=== PATIENT | female | born 1980 | race American Indian/Alaskan Native ===

== ENCOUNTER 2016-03-11 10:10 | Emergency (ER) | payer MEDICAID ==
[2016-03-11 10:54] LABS: Basophils % (Auto) 0.5 % (0.0-1.8); Eosinophils % (Auto) 1.3 % (0.0-4.3); Hematocrit 38.7 % (30.3-42.9); Hemoglobin 12.2 gm/dl (10.1-14.3); Mean Corpuscular HGB Conc 32 % (30-34); Mean Corpuscular Hemoglobin 24 pg (28-32); Mean Corpuscular Volume 75 fl (79-97); Platelet Count 253 K/mm3 (140-440); Red Blood Count 5.15 M/mm3 (3.65-5.03); Red Cell Distribution Width 17.7 % (13.2-15.2); White Blood Count 7.5 K/mm3 (4.5-11.0)
[2016-03-11 11:03] LABS: Blood Urea Nitrogen 9 mg/dL (7-17); Calcium 8.7 mg/dL (8.4-10.2); Carbon Dioxide 23 mmol/L (22-30); Glucose 113 mg/dL (65-100); Potassium 4.1 mmol/L (3.6-5.0); Sodium 139 mmol/L (137-145)
[2016-03-11] MEDS ORDERED: ZOFRAN IV ONE (11:04)
[2016-03-11] MEDS ORDERED: MORPHINE IV ONE (11:04)
[2016-03-11 11:06] LABS: Anion Gap 15 mmol/L
[2016-03-11] MEDS ORDERED: NACL ONE ×2 (11:15→11:34)
--- NOTE | 2016-03-11 11:15 | Emergency Department Report ---
HPI - General Chief Complaint: Chest Pain Time Seen by Provider: 03/11/16 10:51 - HPI HPI: Chief complaint: Chest pain, nausea vomiting and diarrhea, headache HPI: Patient is a 35-year-old female with a history of hyperthyroidism status post thyroid storm 7 months ago when she was diagnosed with an SD and pulmonary embolus. Patient has been placed on Eliquis, methimazole as well as Inderal which she states she has been taking. Patient was evaluated at [facility]. Patient has relocated to this area. Patient states for the last 3 days she's been having increased sharp left-sided chest pain that is worse on inspiration as well as nausea vomiting and diarrhea. Patient states she's been having a few streaks of blood in her vomit and has been vomiting about 4 times a day and had one episode of diarrhea. Patient states she fell and hit her head on the way to the bathroom and now has a severe headache. Discussed with María from [facility] who was able to access her records at [facility]. There was no documented SD and patient had a negative PET scan of her heart. There was a question of possible pericarditis and a remote history of pulmonary embolus. Patient did have negative CTA of the chest when she was at [facility]. Patient does also have an extensive psychiatric history and has been on BuSpar as well as Seroquel. Mode of arrival: EMS Source: Patient old chart Began: 3 days ago Duration: 3 days Context: See above Quality: Sharp Severity: 10 out of 10 Improved with: Nothing Worsened with: See above Associated signs and symptoms: See above ED Past Medical Hx - Past Medical History Previous Medical History?: Yes Hx Heart Attack/AMI: Yes Hx Pulmonary Embolism: Yes Hx Psychiatric Treatment: Yes (anxiety) Additional medical history: hypothyroidism,pericarditis, pt states hyperthyroidism, thyroid storm - Surgical History Past Surgical History?: No - Social History Smoking Status: Former Smoker Substance Use Type: None - Medications Home Medications: Home Medications Medication Instructions Recorded Confirmed Last Taken Type ALBUTEROL Inhaler 1 puff IH QID 02/17/16 02/17/16 02/16/16 History Apixaban [Eliquis] 1 tab PO BID 02/17/16 02/17/16 02/15/16 History Atenolol 25 mg PO DAILY 02/17/16 02/17/16 02/16/16 History Methimazole [Tapazole] 10 mg PO Q8H 02/17/16 02/17/16 02/16/16 History Ondansetron [Zofran Odt] 4 mg PO Q4H PRN #7 tab.rapdis 02/17/16 Unknown Rx Propranolol [Inderal] 40 mg PO Q12HR 02/17/16 02/17/16 02/16/16 History busPIRone [Buspar] 7.5 mg PO BID 02/17/16 02/17/16 02/16/16 History traMADol [Ultram 50 MG tab] 50 mg PO Q6HR PRN #10 tablet 03/11/16 Unknown Rx ED Review of Systems ROS: Stated complaint: CHEST PAIN Other details as noted in HPI ROS Constitutional: No fever ENT: No uri symptoms Cardiovascular: chest pain Respiratory: No cough GI: See HPI : No dysuria frequency or urgency, Skin: No rash Neuro: No focal weakness or numbness Psych: History of depression Imtiaz/lymph: No edema Physical Exam - Physical Exam Vital Signs: Vital Signs 03/11/16 10:22 Temperature 97.8 F Pulse Rate 89 Blood Pressure 113/56 O2 Sat by Pulse 100 Oximetry Physical Exam: GENERAL: The patient is well-developed well-nourished . HEENT: Normocephalic. Atraumatic. Extraocular motions are intact. Patient has moist mucous membranes. NECK: Supple. No meningitic signs are noted. There is no adenopathy noted. CHEST/LUNGS: Clear to auscultation. There is no respiratory distress noted. HEART/CARDIOVASCULAR: Regular. There is no tachycardia. There is no gallop rub or murmur. ABDOMEN: Abdomen is soft, nontender. Patient has normal bowel sounds. There is no abdominal distention. SKIN: There is no rash. There is no edema. There is no diaphoresis. NEURO: The patient is awake, alert, and oriented. The patient is cooperative. The patient has no focal neurologic deficits. The patient has normal speech. MUSCULOSKELETAL: There is no tenderness or deformity. There is no limitation range of motion. There is no evidence of acute injury. ED Course Vital Signs 03/11/16 10:22 Temperature 97.8 F Pulse Rate 89 Blood Pressure 113/56 O2 Sat by Pulse 100 Oximetry - Reevaluation(s) Reevaluation #1: 03/11/16 11:47 Patient medicated with 4 mg of morphine and 4 mg of Zofran. - EJ/Peripheral Line Neck R Indications: nurses unable to establis Skin Cleansed in Sterile Fashion: Yes Size: 20 Dressing Placed: Tegaderm, tape Patient Tolerated Procedure: well, no complications ED Medical Decision Making - Lab Data Result diagrams: 03/11/16 10:27 03/11/16 10:27 Laboratory Tests 03/11/16 03/11/16 10:27 11:10 PT 13.4 INR 1.03 Troponin T < 0.010 Laboratory Tests 03/11/16 03/11/16 03/11/16 10:27 11:10 11:10 PT 13.4 INR 1.03 APTT 24.8 Troponin T < 0.010 TSH < 0.005 L 03/11/16 13:17 PT INR APTT Troponin T < 0.010 TSH - EKG Data -: EKG Interpreted by Ri EKG shows normal: sinus rhythm Rate: normal - EKG Data When compared to previous EKG there are: no significant change Interpretation: normal EKG - Radiology Data Radiology results: report reviewed (CT of the head is within normal limits. CTA of the chest shows no pulmonary embolus and CT of the abdomen shows no acute process.) Critical care attestation.: If time is entered above; I have spent that time in minutes in the direct care of this critically ill patient, excluding procedure time. ED Disposition Clinical Impression: Chest pain Qualifiers: Chest pain type: pleurodynia Qualified Code(s): R07.81 - Pleurodynia Disposition: DISCHARGED TO HOME OR SELFCARE Is pt being admited?: No Does the pt Need Aspirin: No Condition: Stable Instructions: Chest Pain (ED) Prescriptions: traMADol [Ultram 50 MG tab] 50 mg PO Q6HR PRN #10 tablet PRN Reason: Pain Referrals: follow-up, your primary care doctor [Other] - 3-5 Days Time of Disposition: 15:00
[2016-03-11 11:28] LABS: INR 1.03 (0.87-1.13)
[2016-03-11 11:29] LABS: Partial Thromboplastin Time 24.8 Sec. (24.2-36.6)
--- NOTE | 2016-03-11 12:30 | Cat Scan Report ---
CT HEAD WITHOUT CONTRAST INDICATION: Headache, head trauma, on Eliquis. COMPARISON: None similar. FINDINGS: Noncontrast head CT demonstrates normal ventricles and sulci without acute or recent infarct, hemorrhage, mass effect or midline shift. No abnormal extra-axial fluid collections. Posterior fossa structures and basilar cisterns appear within normal limits. Symmetric eye globes. Clear paranasal sinuses and mastoid air cells. Intact calvarium. Normal overlying scalp soft tissues. Few radiopaque dental material incidentally noted. CONCLUSION: No acute intracranial CT abnormality, as described. Thank you for the opportunity to participate in this patient's care.
--- NOTE | 2016-03-11 12:36 | Cat Scan Report ---
CTA CHEST INDICATION: Chest pain. COMPARISON: None similar. FINDINGS: Chest CTA performed following intravenous administration of 100 cc of Omnipaque 350. Rotational MIP's also obtained. Borderline cardiomegaly. No effusions. No aortic aneurysm, dissection or suspicious pulmonary arterial filling defects. No size significant adenopathy. Mild residual or regenerated thymus incidentally noted with grossly preserved contours. Normal airway. Unremarkable thyroid. Mild left lower lobe scarring. Otherwise unremarkable lungs. Right hemidiaphragm slightly elevated. Nonspecific distal esophageal wall thickening, not excluded for gastroesophageal reflux and/or hiatal hernia, amongst others. Images through included upper abdomen reveal no significant abnormality. Unremarkable bones. CONCLUSION: No CT evidence of pulmonary embolism with few incidental findings, as above. Thank you for the opportunity to participate in this patient's care.
--- NOTE | 2016-03-11 12:45 | Cat Scan Report ---
CT SCAN OF THE ABDOMEN AND PELVIS WITH CONTRAST: HISTORY: Abdominal pain. TECHNIQUE: Helical CT in 1.25mm intervals following IV contrast. Sagittal and coronal reconstructions. FINDINGS: The liver is normal in size and is without focal defect. No gallstones or biliary dilatation are noted. The spleen and pancreas demonstrate a normal size and attenuation with no evidence of abnormal mass. The kidneys are normal in size and position with no evidence of hydronephrosis or mass. The adrenal glands are normal. There is no intestinal obstruction or ascites. Normal appendix. The abdominal aorta is normal. No abnormalities are identified within the retroperitoneum or mesentery. There is no evidence of peritoneal air or fluid. There is no evidence of any abnormal masses or fluid collections within the pelvis. No adenopathy is identified. The bladder is normal. IMPRESSION: Unremarkable CT scan of the abdomen and pelvis with contrast. No acute process is noted.
[2016-03-11 12:55] LABS: Urine Drugs of Abuse Note Disclamer
[2016-03-11 13:09] LABS: Bilirubin,Urine NEG (Negative); Blood,Urine LG (Negative); Ketones,Urine NEG (Negative); Leukocyte Esterase,Urine NEG (Negative); Nitrite,Urine NEG (Negative); Protein,Urine <15 mg/dL mg/dL (Negative); Urobilinogen,Urine < 2.0 mg/dL (<2.0)
[2016-03-11 13:10] LABS: RBC,Urine > 182.0 /HPF (0.0-6.0)
[2016-03-11 14:03] VITALS: BP 127/75
== END 2016-03-11 15:25 | disposition home or self-care (01) ==
LOC: ED 10:10
DX: R07.81 Pleurodynia (principal); R11.2 Nausea with vomiting, unspecified; R19.7 Diarrhea, unspecified; I25.2 Old myocardial infarction; I26.99 Other pulmonary embolism without acute cor pulmonale; F41.9 Anxiety disorder, unspecified; E03.9 Hypothyroidism, unspecified; Z87.891 Personal history of nicotine dependence
CPT/HCPCS: 36415; 36569; 70450; 71275; 74177; 80048; 80307; 81001; 84443; 84484; 85025; 85610; 85730; 93005; 93010; 96374; 96375; 99285; J2270; J2405; Q9967

== ENCOUNTER 2016-04-29 08:58 | Emergency (ER) | payer MEDICAID ==
[2016-04-29 09:41] LABS: Basophils % (Auto) 0.5 % (0.0-1.8); Eosinophils % (Auto) 1.2 % (0.0-4.3); Hematocrit 43.6 % (30.3-42.9); Hemoglobin 14.2 gm/dl (10.1-14.3); Mean Corpuscular HGB Conc 33 % (30-34); Mean Corpuscular Volume 78 fl (79-97); Platelet Count 253 K/mm3 (140-440); Red Blood Count 5.61 M/mm3 (3.65-5.03); Red Cell Distribution Width 16.4 % (13.2-15.2); White Blood Count 7.6 K/mm3 (4.5-11.0)
[2016-04-29 09:53] LABS: INR 1.02 (0.87-1.13)
[2016-04-29 09:55] LABS: Mean Corpuscular Hemoglobin 25 pg (28-32)
[2016-04-29 09:58] LABS: Anion Gap 18 mmol/L; Blood Urea Nitrogen 13 mg/dL (7-17); Calcium 9.6 mg/dL (8.4-10.2); Carbon Dioxide 22 mmol/L (22-30); Chloride 101.1 mmol/L (98-107); Glucose 102 mg/dL (65-100); Potassium 4.2 mmol/L (3.6-5.0); Sodium 137 mmol/L (137-145)
[2016-04-29 10:09] LABS: Partial Thromboplastin Time 22.4 Sec. (24.2-36.6)
[2016-04-29] MEDS ORDERED: ZOFRAN IV ONE (10:17)
[2016-04-29] MEDS ORDERED: TYLENOL PO ONE (10:17)
[2016-04-29] MEDS ORDERED: TYLENOL ONE (10:23)
[2016-04-29] MEDS ORDERED: ZOFRAN ONE (10:23)
[2016-04-29] MEDS ORDERED: MORPHINE IV ONE (10:43)
[2016-04-29] MEDS ORDERED: REGLAN IV ONE (10:43)
[2016-04-29] MEDS ORDERED: MORPHINE ONE (10:44)
[2016-04-29] MEDS ORDERED: REGLAN ONE (10:44)
--- NOTE | 2016-04-29 11:02 | Emergency Department Report ---
HPI - General Chief Complaint: Chest Pain Time Seen by Provider: 04/29/16 09:42 - HPI HPI: Chief complaint: Chest pain, syncope, left arm pain, and patient thinks she's having seizures. HPI: Patient is 35-year-old female who has hyperthyroidism and is on methimazole and Inderal, questionable history of pericarditis, remote history of pulmonary embolus on Eliquis and 2 negative CTA scan of the chest and the last several months. Patient was seen here in this emergency department 3 days ago for the same complaint and signed out AGAINST MEDICAL ADVICE after being told she would get no narcotic medications. Patient states that she had a syncopal episode that lasted about 3 minutes. Patient states that she thinks she's having seizures in her sleep because she wakes up shaking and states that her teeth are cracking and sometimes when she is awake she starts shaking. Patient has no previous history of seizures. Patient complains of sharp anterior chest pain radiating down her arm. Patient has not followed up with her social service assistant and does not have a primary care doctor since moving to this area. Patient also complains of sensation of her organs twisting inside of her. Patient complains of shortness of breath and blurred vision. Mode of arrival: [EMS] Source: [Patient] [old chart] Began: Syncopal episode occurred prior to admission. Patient has recurrent episodes of chest pain. Recurrent episodes of organ twisting sensation. Duration: Recurrent chest pain for over 3 months Context: Patient had a negative PET scan of her coronary arteries at [facility] Quality: Sharp Severity: 10 out of 10 Improved with: Nothing Worsened with: Inspiration Associated signs and symptoms: See above ED Past Medical Hx - Past Medical History Previous Medical History?: Yes Hx Heart Attack/AMI: (pt states "needing stents") Hx Pulmonary Embolism: Yes Hx Psychiatric Treatment: Yes (anxiety) Additional medical history: pericarditis, pt states hyperthyroidism, thyroid storm - Surgical History Past Surgical History?: No - Social History Smoking Status: Never Smoker Substance Use Type: Marijuana - Medications Home Medications: Home Medications Medication Instructions Recorded Confirmed Last Taken Type Apixaban [Eliquis] 1 tab PO BID 02/17/16 04/29/16 02/15/16 History traMADol [Ultram 50 MG tab] 50 mg PO Q6HR PRN #10 tablet 03/11/16 04/29/16 Unknown Rx Dicyclomine [Bentyl] 10 mg PO QID PRN #20 capsule 04/26/16 04/29/16 Unknown Rx Methimazole [Tapazole] 10 mg PO Q8H #21 tablet 04/26/16 04/29/16 Unknown Rx Ondansetron [Zofran Odt] 4 mg PO Q4H PRN #7 tab.rapdis 04/26/16 04/29/16 Unknown Rx Propranolol [Inderal] 40 mg PO Q12HR #14 tablet 04/26/16 04/29/16 Unknown Rx ED Review of Systems ROS: Stated complaint: N/V / PASSED OUT Other details as noted in HPI ROS Constitutional: No fever ENT: No uri symptoms Cardiovascular: chest pain Respiratory: No cough GI: No vomiting or diarrhea : No dysuria frequency or urgency, Skin: No rash Neuro: No focal weakness Psych: No depression Imtiaz/lymph: No edema Physical Exam - Physical Exam Vital Signs: Vital Signs 04/29/16 04/29/16 04/29/16 09:00 09:11 09:30 Temperature 98.2 F Pulse Rate 98 H 96 H 130 H Respiratory 10 L 14 19 Rate Blood Pressure 118/72 118/72 O2 Sat by Pulse 100 100 Oximetry 04/29/16 04/29/16 09:56 10:00 Temperature Pulse Rate 95 H Respiratory 26 H Rate Blood Pressure 110/63 O2 Sat by Pulse 100 99 Oximetry Physical Exam: GENERAL: The patient is well-developed well-nourished . Requesting pain medication. HEENT: Normocephalic. Atraumatic. Extraocular motions are intact. Patient has moist mucous membranes. NECK: Supple. No meningitic signs are noted. There is no adenopathy noted. CHEST/LUNGS: Clear to auscultation. There is no respiratory distress noted. HEART/CARDIOVASCULAR: Regular. There is no tachycardia. There is no gallop rub or murmur. ABDOMEN: Abdomen is soft, nontender. Patient has normal bowel sounds. There is no abdominal distention. SKIN: There is no rash. There is no edema. There is no diaphoresis. NEURO: The patient is awake, alert, and oriented. The patient is cooperative. The patient has no focal neurologic deficits. The patient has normal speech. MUSCULOSKELETAL: There is no tenderness or deformity. There is no limitation range of motion. There is no evidence of acute injury. ED Course Vital Signs 04/29/16 04/29/16 04/29/16 09:00 09:11 09:30 Temperature 98.2 F Pulse Rate 98 H 96 H 130 H Respiratory 10 L 14 19 Rate Blood Pressure 118/72 118/72 O2 Sat by Pulse 100 100 Oximetry 04/29/16 04/29/16 09:56 10:00 Temperature Pulse Rate 95 H Respiratory 26 H Rate Blood Pressure 110/63 O2 Sat by Pulse 100 99 Oximetry - Reevaluation(s) Reevaluation #1: 04/29/16 10:37 Patient requested another doctor when she was given Tylenol only for pain. 04/29/16 11:44 Patient was given 2 mg of IV morphine and 10 mg of IV Reglan after being admitted to the hospitalist. Patient then got up from her bed and went to the restroom and left the emergency department without telling anyone. ED Medical Decision Making - Lab Data Result diagrams: 04/29/16 09:21 04/29/16 09:21 Laboratory Tests 04/29/16 04/29/16 09:21 09:21 PT 13.3 INR 1.02 APTT 22.4 L Troponin T < 0.010 - EKG Data -: EKG Interpreted by Me EKG shows normal: sinus rhythm Rate: tachycardia - EKG Data When compared to previous EKG there are: no significant change Interpretation: other (early repolarization) Critical care attestation.: If time is entered above; I have spent that time in minutes in the direct care of this critically ill patient, excluding procedure time. ED Disposition Clinical Impression: Drug-seeking behavior Syncope Qualifiers: Syncope type: unspecified Qualified Code(s): R55 - Syncope and collapse Chest pain Qualifiers: Chest pain type: unspecified Qualified Code(s): R07.9 - Chest pain, unspecified Disposition: ELOPED Is pt being admited?: No Does the pt Need Aspirin: No (given in the ambulance) Condition: Fair Instructions: Chest Pain (ED), Syncope (ED) Referrals: PRIMARY CARE,MD [Primary Care Provider] - 3-5 Days Time of Disposition: 10:43 (admit to the hospitalist)
--- NOTE | 2016-04-29 11:03 | Admit Criteria Form ---
Admission Criteria Documentation: TELEMETRY CARE Telemetry Admission Guidelines (Place 'X' for any and all applicable criteria): Admission to telemetry [A] may be indicated for ANY ONE of the following(1)(2)(3 )(4)(5): [ X]I. Cardiac disease, including ANY ONE of the following (9)(10)(11)(12)( 13): [ ]a) Postacute AL [ ]b) Low-risk patients with ST-segment elevation AL who have undergone successful percutaneous coronary intervention [X ]c) Unstable angina [ ]d) Suspected AL (until it is ruled out) [ ]e) Post cardiac surgery (first 48 to 72 hours unless complications occur) [ ]f) Acute arrhythmias (including significant tachycardia or bradycardia) [B] [ ]g) Firing of an implantable cardioverter defibrillator [C] [ ]h) Suspected pacemaker or implantable cardioverter defibrillator malfunction (10) [ ]i) New administration or adjustment of an antiarrhythmic drug [D ] [ ]j) Child admitted for acute congestive heart failure [ ]j) Long QT syndrome [ ]k) Advanced heart block (eg, second-degree Mobitz type II, third- degree heart block) [ ]l) Acute myocarditis or pericarditis [ ]m) Short-term (ambulatory or inpatient) monitoring after a cardiac procedure as indicated by ANY ONE of the following [E]: [ ]i) Electrophysiologic studies [ ]ii) Percutaneous coronary intervention with stent placement [ ]iii) Pacemaker placement with cardiac conduction defect [ ]iv) Implantable cardiac defibrillator placement [ ]II. Drug overdose or poisoning with substance that causes arrhythmias or QT prolongation (eg, phenothiazines, sympathomimetic agents, cyclic antidepressants, digitalis, antiarrhythmic drugs)(15) [ ]III. Short-term (ambulatory or inpatient) monitoring after therapeutic or diagnostic procedure requiring conscious sedation or anesthesia (eg, endoscopy, elective cardioversion) [ ]IV. Acute cerebrovascular even[F](18) [ ]V. Massive blood transfusion (eg, at least 10 units of packed red blood cells in 24 hours) [ ]. Variceal bleeding after endoscopy, sclerotherapy, or IV vasopressin [ ]VII. Uncorrected electrolyte abnormalities associated with an increased risk of dangerous arrhythmia [G]; examples include [ ]a) Hyperkalemia with attributable ECG changes [ ]b) Potassium greater than 6.5 mmol/L (mEq/L) in a patient without history of chronic renal disease [ ]c) Prolonged QT attributed to hypokalemia, hypomagnesemia, or hypocalcemia [ ]VIII.Unexplained syncope or other neurologic event suspected of being due to arrhythmia due to a finding that increases risk; examples include(19)(20)(21): [ ]a) High-risk ECG findings (eg, bifascicular block, bradycardia, abnormal QT interval, ventricular pre- excitation) [ ]b) History of previous syncope due to arrhythmia [ ]c) Abnormal ventricular function (eg, reduced ejection fraction ) [ ]d) Exertional or supine syncope [ ]e) Concerning syncope characteristics (eg, sudden loss of consciousness without prodrome) [ ]f) Family history of sudden [ ]g) Use of arrhythmogenic medication [ ]h) Suspected cardiac ischemia [ ]i) Known channelopathy (eg, long QT syndrome, Brugada syndrome, or catecholaminergic paroxysmal ventricular tachycardia) [ ]j) Known structural heart disease (eg, hypertrophic cardiomyopathy , severe valvular disease) [ ]k) Palpitations preceding syncope The original [employer] content created by [employer] has been revised. The portions of the content which have been revised are identified through the use of italic text or in bold, and [employer] has neither reviewed nor approved the modified material. All other unmodified content is copyright [employer]. Please see references footnoted in the original [employer] edition 2016
[2016-04-29 11:05] LABS: Urine Drugs of Abuse Note Disclamer
[2016-04-29 11:17] LABS: Bilirubin,Urine NEG (Negative); Blood,Urine SM (Negative); Ketones,Urine NEG (Negative); Leukocyte Esterase,Urine NEG (Negative); Nitrite,Urine NEG (Negative); Protein,Urine <15 mg/dL mg/dL (Negative); Urobilinogen,Urine < 2.0 mg/dL (<2.0); WBC,Urine < 1.0 /HPF (0.0-6.0)
[2016-04-29 11:33] VITALS: BP 107/68
--- NOTE | 2016-04-29 13:32 | Short Stay Summary ---
Short Stay Documentation Date of service: 04/29/16 Narrative H&P: Patient is 35-year-old female who has hyperthyroidism and is on methimazole and Inderal, questionable history of pericarditis, remote history of pulmonary embolus on Eliquis and 2 negative CTA scan of the chest and the last several months. Patient was seen here in this emergency department 3 days ago for the same complaint and signed out AGAINST MEDICAL ADVICE after being told she would get no narcotic medications. Patient states that she had a syncopal episode that lasted about 3 minutes. Patient complains of sharp anterior chest pain radiating down her arm. Patient also complains of sensation of her organs twisting inside of her. Patient complains of shortness of breath and blurred vision. Patient received morphine during my interview. I explained the plan of care with the patient of possible stress thallium. Patient was in agreement. I was later informed by the ER physician that the patient left AMA. - History Past Medical History: hyperthyroidism, pulmonary embolism, other (pericarditis) Past Surgical History: No surgical history Social history: no significant social history - Allergies and Medications Current Medications: Allergies ibuprofen [From Motrin] Allergy (Verified 01/16/16 11:01) Unknown Penicillins Allergy (Verified 01/16/16 11:01) Unknown Home Medications Medication Instructions Recorded Confirmed Last Taken Type Apixaban [Eliquis] 1 tab PO BID 02/17/16 04/29/16 02/15/16 History traMADol [Ultram 50 MG tab] 50 mg PO Q6HR PRN #10 tablet 03/11/16 04/29/16 Unknown Rx Dicyclomine [Bentyl] 10 mg PO QID PRN #20 capsule 04/26/16 04/29/16 Unknown Rx Methimazole [Tapazole] 10 mg PO Q8H #21 tablet 04/26/16 04/29/16 Unknown Rx Ondansetron [Zofran Odt] 4 mg PO Q4H PRN #7 tab.rapdis 04/26/16 04/29/16 Unknown Rx Propranolol [Inderal] 40 mg PO Q12HR #14 tablet 04/26/16 04/29/16 Unknown Rx - Physical exam General appearance: no acute distress HEENT: Atraumatic, PERRLA, EOMI Breasts: deferred Gastrointestinal: normal, normoactive bowel sounds Female Genitourinary: deferred Rectal Exam: deferred Extremities: no ischemia Neurological: Normal gait - Hospital course Hospital course: Patient is 35-year-old female who has hyperthyroidism and is on methimazole and Inderal, questionable history of pericarditis, remote history of pulmonary embolus on Eliquis and 2 negative CTA scan of the chest and the last several months. Patient was seen here in this emergency department 3 days ago for the same complaint and signed out AGAINST MEDICAL ADVICE after being told she would get no narcotic medications. Patient states that she had a syncopal episode that lasted about 3 minutes. Patient complains of sharp anterior chest pain radiating down her arm. Patient also complains of sensation of her organs twisting inside of her. Patient complains of shortness of breath and blurred vision. Patient received morphine during my interview. I explained the plan of care with the patient of possible stress thallium. Patient was in agreement. I was later informed by the ER physician that the patient left AMA. - Disposition Condition at discharge: Fair Disposition: LEFT AGAINST MEDICAL ADVICE - Discharge Diagnoses (1) Chest pain Status: Acute Qualifiers: Chest pain type: unspecified Qualified Code(s): R07.9 - Chest pain, unspecified (2) Drug-seeking behavior Status: Acute (3) Syncope Status: Acute Qualifiers: Syncope type: unspecified Encounter type: E Qualified Code(s): R55 - Syncope and collapse Short Stay Discharge Plan Follow up with: PRIMARY CARE [Primary Care Provider] - 3-5 Days
== END 2016-04-29 11:15 | disposition left against medical advice (07) ==
LOC: ED 08:58
DX: R55 Syncope and collapse (principal); R07.9 Chest pain, unspecified; Z76.5 Malingerer [conscious simulation]; I25.2 Old myocardial infarction; F12.10 Cannabis abuse, uncomplicated
CPT/HCPCS: 36415; 80048; 80307; 81001; 84484; 85025; 85610; 85730; 93005; 93010; 96374; 96375; 99284; J2270; J2765; J2405

== ENCOUNTER 2016-05-25 09:36 | Emergency (ER) | payer MEDICAID ==
[2016-05-25 10:03] VITALS: BP 115/74
== END 2016-05-25 10:00 | disposition left against medical advice (07) ==
LOC: ED 09:36
DX: R07.9 Chest pain, unspecified (principal); F41.9 Anxiety disorder, unspecified; Z53.21 Procedure and treatment not carried out due to patient leaving prior to being seen by health care provider
CPT/HCPCS: 93005; 93010

== ENCOUNTER 2016-06-05 18:34 | Emergency (ER) | payer MEDICAID | END 2016-06-05 19:15 | disposition left against medical advice (07) | LOC: ED 18:34 | DX: R07.9 Chest pain, unspecified (principal); R56.9 Unspecified convulsions; Z53.21 Procedure and treatment not carried out due to patient leaving prior to being seen by health care provider ==

== ENCOUNTER 2016-06-27 10:44 | Emergency (ER) | payer MEDICAID ==
--- NOTE | 2016-06-27 11:15 | Emergency Department Report ---
Entered by BONIFACIO MAGANA, acting as scribe for SANDOR CARMICHAEL NP. Chief Complaint: Chest Pain Stated Complaint: CHEST PAIN Time Seen by Provider: 06/27/16 11:06 - HPI History of Present Illness: 35 y/o non-toxic, non ill-appearing female in no acute distress presents to ED c /o left chest pain radiating to "both arms, more on the left". Pt reports N/V and states she "fainted on the way here". States she was dx'ed with "pulmonary embolisms 2 weeks ago" at [place] [facility] Review of Systems: + chest pain, N/V, syncope - Exam Vital Signs: Vital Signs 06/27/16 10:59 Temperature 97.8 F Pulse Rate 113 H Respiratory 20 Rate Blood Pressure 116/81 O2 Sat by Pulse 99 Oximetry Physical Exam: Non reproducible chest pain, normal breath sounds, normal heart sounds. non- toxic. non ill appearing. no acute distress. MSE screening note: Focused history and physical exam performed. Due to findings the following was ordered: troponin, CXR, CBC, CMP, BNP ED Disposition for MSE Condition: Stable Referrals: PRIMARY CARE,MD [Primary Care Provider] - 3-5 Days This documentation as recorded by the scribe,BONIFACIO MAGANA,accurately reflects the service I personally performed and the decisions made by [employer] MARTIN, NASH.
[2016-06-27 11:30] LABS: Basophils % (Auto) 0.4 % (0.0-1.8); Eosinophils % (Auto) 0.2 % (0.0-4.3); Hematocrit 42.1 % (30.3-42.9); Hemoglobin 13.7 gm/dl (10.1-14.3); Mean Corpuscular HGB Conc 33 % (30-34); Mean Corpuscular Volume 80 fl (79-97); Platelet Count 338 K/mm3 (140-440); Red Blood Count 5.28 M/mm3 (3.65-5.03); Red Cell Distribution Width 13.8 % (13.2-15.2); White Blood Count 11.2 K/mm3 (4.5-11.0)
[2016-06-27 11:33] LABS: Mean Corpuscular Hemoglobin 26 pg (28-32)
--- NOTE | 2016-06-27 11:33 | XRay Report ---
CHEST 2 VIEWS INDICATION: Chest pain. COMPARISON: 02/17/2016. FINDINGS: PA and lateral chest radiographs demonstrate normal cardiomediastinal silhouette. Clear lungs. Intact bones. CONCLUSION: No acute disease in the chest. Thank you for the opportunity to participate in this patient's care.
[2016-06-27 12:17] LABS: Alanine Aminotransferase 67 units/L (7-56); Albumin 3.8 g/dL (3.9-5); Albumin/Globulin Ratio 1.3 %; Anion Gap 20 mmol/L; BUN/Creatinine Ratio 33.33; Blood Urea Nitrogen 20 mg/dL (7-17); Calcium 9.5 mg/dL (8.4-10.2); Carbon Dioxide 20 mmol/L (22-30); Chloride 107.4 mmol/L (98-107); Glucose 132 mg/dL (65-100); Potassium 4.5 mmol/L (3.6-5.0); Sodium 143 mmol/L (137-145); Total Protein 6.8 g/dL (6.3-8.2)
[2016-06-27 13:09] LABS: Alkaline Phosphatase 128 units/L (35-129)
[2016-06-27] MEDS ORDERED: NACL 0.9% 1000 ML 1,000 ML IV ONE (17:22)
[2016-06-27] MEDS ORDERED: LIDOCAINE VISCOUS 2% PO ONE (17:23)
[2016-06-27] MEDS ORDERED: ALUM-MAG HYDROX-SIMETH 200-200-20MG/5ML PO ONE (17:23)
[2016-06-27] MEDS ORDERED: MORPHINE IV ONE ×2 (17:23→20:35)
--- NOTE | 2016-06-27 18:20 | Emergency Department Report ---
HPI - General Chief Complaint: Chest Pain Time Seen by Provider: 06/27/16 17:00 - HPI HPI: This is a 35-year-old Afro-Citizen Of [place] female who walked to the hospital to be seen with multiple complaints. The patient complains of some midsternal chest discomfort and left upper flank burning sensation. Associated with some nausea and vomiting. The patient was diagnosed with a right-sided lung PE at [facility] 2-3 weeks ago. She is on Eloquist and says she has not missed any doses. The patient left AGAINST MEDICAL ADVICE or eloped from [place] around that time without admission because she says she was "angry at myself." However now the patient continues to have discomfort as well as some gargling sensation in her chest and she says that it "smells like burning blood in my chest." She has a past medical history of "needing stents", anxiety, PE and hyperthyroidism. She does not currently have a primary care doctor. No recent travel or sick contacts at home. ED Past Medical Hx - Past Medical History Previous Medical History?: Yes Hx Heart Attack/AMI: (pt states "needing stents") Hx Pulmonary Embolism: Yes Hx Psychiatric Treatment: Yes (anxiety) Additional medical history: pericarditis, pt states hyperthyroidism, thyroid storm, PE - Surgical History Past Surgical History?: No - Social History Smoking Status: Former Smoker Substance Use Type: Alcohol, Marijuana - Medications Home Medications: Home Medications Medication Instructions Recorded Confirmed Last Taken Type Apixaban [Eliquis] 1 tab PO BID 02/17/16 04/29/16 02/15/16 History traMADol [Ultram 50 MG tab] 50 mg PO Q6HR PRN #10 tablet 03/11/16 04/29/16 Unknown Rx Dicyclomine [Bentyl] 10 mg PO QID PRN #20 capsule 04/26/16 04/29/16 Unknown Rx Methimazole [Tapazole] 10 mg PO Q8H #21 tablet 04/26/16 04/29/16 Unknown Rx Ondansetron [Zofran Odt] 4 mg PO Q4H PRN #7 tab.rapdis 04/26/16 04/29/16 Unknown Rx Propranolol [Inderal] 40 mg PO Q12HR #14 tablet 04/26/16 04/29/16 Unknown Rx HYDROcodone/APAP 5-325 [[place] 1 each PO Q6HR PRN #8 tablet 06/27/16 Unknown Rx 5/325] levETIRAcetam [Keppra TAB] 500 mg PO BID #60 tablet 06/27/16 Unknown Rx ED Review of Systems ROS: Stated complaint: CHEST PAIN Other details as noted in HPI Comment: All other systems reviewed and negative Constitutional: denies: chills, fever Eyes: denies: eye pain, eye discharge, vision change ENT: denies: ear pain, throat pain Respiratory: denies: cough, wheezing Cardiovascular: chest pain. denies: palpitations Gastrointestinal: nausea, vomiting. denies: abdominal pain Genitourinary: denies: urgency, dysuria, discharge Musculoskeletal: denies: back pain, joint swelling, arthralgia Skin: denies: rash, lesions Neurological: denies: headache, paresthesias Physical Exam - Physical Exam Vital Signs: Vital Signs 06/27/16 06/27/16 06/27/16 10:59 14:22 14:23 Temperature 97.8 F 98.1 F Pulse Rate 113 H 95 H Respiratory 20 16 16 Rate Blood Pressure 116/81 Blood Pressure 120/78 [Right] O2 Sat by Pulse 99 99 99 Oximetry Physical Exam: GENERAL: The patient is well-developed well-nourished. HEENT: Normocephalic. Atraumatic. Extraocular motions are intact. Patient has moist mucous membranes. Pupils equal reactive to light bilaterally. NECK: Supple. Trachea is benign. CHEST/LUNGS: Clear to auscultation. There is no respiratory distress noted. HEART/CARDIOVASCULAR: Regular. There is no tachycardia. There is no gallop rub or murmur. ABDOMEN: Abdomen is soft, nontender. Patient has normal bowel sounds. There is no abdominal distention. SKIN: Skin is warm and dry. NEURO: The patient is awake, alert, and oriented. The patient is cooperative. The patient has no focal neurologic deficits. The patient has normal speech and gait. Cranial nerves II through XII grossly intact. MUSCULOSKELETAL: There is no tenderness or deformity. There is no limitation range of motion. There is no evidence of acute injury. ED Course Vital Signs 06/27/16 06/27/16 06/27/16 10:59 14:22 14:23 Temperature 97.8 F 98.1 F Pulse Rate 113 H 95 H Respiratory 20 16 16 Rate Blood Pressure 116/81 Blood Pressure 120/78 [Right] O2 Sat by Pulse 99 99 99 Oximetry ED Medical Decision Making - Lab Data Result diagrams: 06/27/16 11:14 06/27/16 11:14 - EKG Data -: EKG Interpreted by Me EKG shows normal: sinus rhythm, axis, intervals, QRS complexes, ST-T waves Rate: tachycardia (109 bpm) - EKG Data When compared to previous EKG there are: no significant change Interpretation: unchanged when compared t (05/25/16) - Radiology Data Radiology results: image reviewed interpreted by me: Chest x-ray did not show any acute process. Heart is normal shape and size. No effusions. No pneumothorax. No signs of pneumonia seen. - Medical Decision Making 35-year-old female presents with multiple complaints that include acute on chronic chest discomfort, recent seizure-like activity, a gurgling sound in her chest. EKG does not show any signs of ST elevation RI. Patient's labs include negative troponins 2. I did not check her for a pulmonary embolism as she already has a known history of them but since that time is been started on Eloquist and has been taking compliantly. There are no signs of congestive heart failure. Chest x-ray does not show any pleural effusions, obvious pneumonia and there is no pneumothorax. A CT of the head was done without contrast did not show any bleed, shift, mass or any acute process. The patient has been in the emergency department for about 10 hours in total and has not had any seizure-like activity. She does not have any focal, motor or sensory deficits and her cranial nerves are intact. She was given some Keppra here and will be started on Keppra since the patient complains of multiple recent seizures until she can follow up with a neurologist. 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 She'll return to the ER with any worsening of symptoms or any acute distress. - Differential Diagnosis RI, Costochondritis, Epilepsy, Pneumonia, CHF Critical Care Time: No Critical care attestation.: If time is entered above; I have spent that time in minutes in the direct care of this critically ill patient, excluding procedure time. ED Disposition Clinical Impression: Seizure-like activity Chest pain Qualifiers: Chest pain type: unspecified Qualified Code(s): R07.9 - Chest pain, unspecified Disposition: DISCHARGED TO HOME OR SELFCARE Is pt being admited?: No Condition: Stable Instructions: Chest Pain (ED), Non-epileptic Seizures (ED) Additional Instructions: I have given you referrals for primary care, cardiology (beth) and neurology (Agapito) for follow-up. Return to the emergency department with any worsening of your symptoms or any acute distress. Prescriptions: HYDROcodone/APAP 5-325 [[place] 5/325] 1 each PO Q6HR PRN #8 tablet PRN Reason: Pain levETIRAcetam [Keppra TAB] 500 mg PO BID #60 tablet Referrals: PRIMARY CAREMD [Primary Care Provider] - 3-5 Days MARTHA GRAVES MD [Staff Physician] - 3-5 Days RADHA JIMENEZ MD [Staff Physician] - 3-5 Days MARIA DE JESUS WATSON MD [Staff Physician] - 3-5 Days [facility] [Outside] - 3-5 Days Time of Disposition: 23:23
[2016-06-27 20:17] LABS: Urine Drugs of Abuse Note Disclamer
[2016-06-27] MEDS ORDERED: ZOFRAN IV ONE (20:27)
--- NOTE | 2016-06-27 21:52 | Cat Scan Report ---
FINAL REPORT PROCEDURE: CT HEAD/BRAIN WO CON TECHNIQUE: Computerized tomography of the head was performed without contrast material. HISTORY: recent seizures COMPARISON: 03/11/2016 FINDINGS: No CT evidence of intracranial mass, hemorrhage, acute territorial infarction, or hydrocephalus. Intracranial arteries are symmetric in density. Calvarium is intact. Paranasal sinuses and mastoids are aerated. IMPRESSION: No CT evidence of acute intracranial abnormality
[2016-06-27] MEDS ORDERED: KEPPRA 1,000 MG/NS 0.75% 100ML 1,000 MG/100 ML BAG IV ONE (22:18)
[2016-06-27 23:52] VITALS: BP 124/82
== END 2016-06-27 23:52 | disposition home or self-care (01) ==
LOC: ED 10:44
DX: R56.9 Unspecified convulsions (principal); R07.9 Chest pain, unspecified; F41.9 Anxiety disorder, unspecified; E05.90 Thyrotoxicosis, unspecified without thyrotoxic crisis or storm; F12.90 Cannabis use, unspecified, uncomplicated; Z86.711 Personal history of pulmonary embolism; Z87.891 Personal history of nicotine dependence
CPT/HCPCS: 36415; 70450; 71020; 80053; 80307; 81025; 83880; 84443; 84484; 85025; 93005; 93010; 96361; 96374; 96375; 96376; 99285; J1953; J2270; J2405; J7030

== ENCOUNTER 2016-06-29 09:07 | Emergency (ER) | payer MEDICAID ==
[2016-06-29 09:49] LABS: Basophils % (Auto) 0.5 % (0.0-1.8); Eosinophils % (Auto) 0.2 % (0.0-4.3); Hematocrit 42.3 % (30.3-42.9); Hemoglobin 13.7 gm/dl (10.1-14.3); Mean Corpuscular HGB Conc 33 % (30-34); Mean Corpuscular Volume 80 fl (79-97); Platelet Count 325 K/mm3 (140-440); Red Blood Count 5.31 M/mm3 (3.65-5.03); Red Cell Distribution Width 13.9 % (13.2-15.2); White Blood Count 6.8 K/mm3 (4.5-11.0)
[2016-06-29 09:56] LABS: Mean Corpuscular Hemoglobin 26 pg (28-32)
[2016-06-29 10:00] LABS: INR 1.03 (0.87-1.13)
--- NOTE | 2016-06-29 10:04 | Cat Scan Report ---
Cranial CT without contrast. History: Fall/vision changes. Findings: Comparison is made to the previous study performed on June 27, 2016. There has been no interval change. There is no evidence of acute hemorrhage or infarct. No masses or extra-axial collections are seen. The posterior fossa is unremarkable. The ventricles are normal in size and contour. Impression: No acute findings or interval changes since June 27, 2016.
[2016-06-29 10:31] LABS: Anion Gap 18 mmol/L; BUN/Creatinine Ratio 23.33; Blood Urea Nitrogen 14 mg/dL (7-17); Calcium 9.5 mg/dL (8.4-10.2); Carbon Dioxide 24 mmol/L (22-30); Chloride 103.7 mmol/L (98-107); Glucose 158 mg/dL (65-100); Potassium 4.5 mmol/L (3.6-5.0); Sodium 141 mmol/L (137-145)
--- NOTE | 2016-06-29 14:45 | Emergency Department Report ---
ED General Adult HPI - General Chief complaint: Chest Pain Stated complaint: JOHN/PAIN Time Seen by Provider: 06/29/16 12:27 Source: patient, RN notes reviewed, old records reviewed Mode of arrival: Ambulatory Limitations: No Limitations - History of Present Illness Initial comments: 35-year-old female presents to the emergency Department with multiple complaints. Patient states she's been having chest pain for the past 2 days with associated shortness of breath, nausea, and vomiting. She states she was seen here for the same thing 2 days ago. Patient states that she has bilateral pulmonary embolisms and is currently taking Eliquis. She states she has been compliant with his medications. Patient is also complaining of achy left arm pain and numbness of her left hand. She reports multiple syncopal episodes, the last occurring earlier this morning when she fell and hit her head. She reports 2 days of vision changes. Patient states she has been vomiting blood and states she smells burning blood in her lungs. Patient states she was discharged from the emergency room 2 days ago with a prescription for seizure medication, but states she is unable to afford this medication until the beginning of next month. Patient is adamant that she is not on any pain medicine at this time. There are no other complaints. -: Gradual, days(s) (2) Location: head, chest, left, upper extremity Radiation: non-radiation Severity scale (0 -10): 9 Quality: aching Consistency: constant Improves with: none Worsens with: none Treatments Prior to Arrival: none - Related Data Home Medications Medication Instructions Recorded Confirmed Last Taken Apixaban [Eliquis] 1 tab PO BID 02/17/16 06/29/16 06/28/16 Quetiapine Fumarate [SEROquel XR] 300 mg PO QDAY 06/29/16 06/29/16 06/28/16 methylPREDNISolone [Medrol Dose 4 mg PO DAILY 06/29/16 06/29/16 06/28/16 Andrew] Previous Rx's Medication Instructions Recorded Last Taken Type Methimazole [Tapazole] 10 mg PO Q8H #21 tablet 04/26/16 06/28/16 Rx Propranolol [Inderal] 40 mg PO Q12HR #14 tablet 04/26/16 06/28/16 Rx levETIRAcetam [Keppra TAB] 500 mg PO BID #60 tablet 06/27/16 Unknown Rx HYDROcodone/APAP 5-325 [[place] 1 each PO Q6HR PRN #8 tablet 06/29/16 Unknown Rx 5/325] Promethazine [Phenergan TAB] 25 mg PO Q6HR PRN #10 tab 06/29/16 Unknown Rx Allergies Allergy/AdvReac Type Severity Reaction Status Date / Time garlic Allergy Unknown Verified 06/27/16 10:59 ibuprofen [From Motrin] Allergy Unknown Verified 01/16/16 11:01 Penicillins Allergy Unknown Verified 01/16/16 11:01 ED Review of Systems ROS: Stated complaint: JOHN/PAIN Other details as noted in HPI Comment: All other systems reviewed and negative Constitutional: weakness Respiratory: shortness of breath Cardiovascular: chest pain, syncope Gastrointestinal: nausea, vomiting, hematemesis Neurological: paresthesias ED Past Medical Hx - Past Medical History Previous Medical History?: Yes Hx Heart Attack/AMI: (pt states "needing stents") Hx Pulmonary Embolism: Yes Hx Psychiatric Treatment: Yes (anxiety) Additional medical history: pericarditis, pt states hyperthyroidism, thyroid storm, PE - Surgical History Past Surgical History?: No - Family History Family history: no significant - Social History Smoking Status: Never Smoker Substance Use Type: None - Medications Home Medications: Home Medications Medication Instructions Recorded Confirmed Last Taken Type Apixaban [Eliquis] 1 tab PO BID 02/17/16 06/29/16 06/28/16 History Methimazole [Tapazole] 10 mg PO Q8H #21 tablet 04/26/16 06/29/16 06/28/16 Rx Propranolol [Inderal] 40 mg PO Q12HR #14 tablet 04/26/16 06/29/16 06/28/16 Rx levETIRAcetam [Keppra TAB] 500 mg PO BID #60 tablet 06/27/16 06/29/16 Unknown Rx HYDROcodone/APAP 5-325 [[place] 1 each PO Q6HR PRN #8 tablet 06/29/16 Unknown Rx 5/325] Promethazine [Phenergan TAB] 25 mg PO Q6HR PRN #10 tab 06/29/16 Unknown Rx Quetiapine Fumarate [SEROquel XR] 300 mg PO QDAY 06/29/16 06/29/16 06/28/16 History methylPREDNISolone [Medrol Dose 4 mg PO DAILY 0506/29/16 06/28/16 History Andrew] ED Physical Exam - General Limitations: No Limitations General appearance: alert, in no apparent distress - Head Head exam: Present: atraumatic, normocephalic - Eye Eye exam: Present: normal appearance, PERRL, EOMI - ENT ENT exam: Present: normal exam, normal orophraynx, mucous membranes moist - Neck Neck exam: Present: normal inspection, full ROM. Absent: tenderness - Respiratory Respiratory exam: Present: normal lung sounds bilaterally. Absent: respiratory distress - Cardiovascular Cardiovascular Exam: Present: regular rate, normal rhythm, normal heart sounds - GI/Abdominal GI/Abdominal exam: Present: soft, normal bowel sounds. Absent: distended, tenderness - Extremities Exam Extremities exam: Present: normal inspection, full ROM. Absent: tenderness - Back Exam Back exam: Present: normal inspection, full ROM. Absent: tenderness - Neurological Exam Neurological exam: Present: alert, oriented X3. Absent: motor sensory deficit - Skin Skin exam: Present: warm, dry, intact ED Course Vital Signs 06/29/16 06/29/16 06/29/16 09:23 12:00 12:25 Temperature 98.5 F Pulse Rate 141 H 90 Respiratory 18 16 26 H Rate Blood Pressure 126/89 131/77 O2 Sat by Pulse 98 100 99 Oximetry 06/29/16 06/29/16 06/29/16 12:27 12:29 12:31 Temperature Pulse Rate 90 95 H 94 H Respiratory 23 18 21 Rate Blood Pressure 131/77 131/77 131/77 O2 Sat by Pulse 99 99 100 Oximetry 06/29/16 06/29/16 06/29/16 12:33 12:35 12:37 Temperature Pulse Rate 96 H 100 H 90 Respiratory 21 21 24 Rate Blood Pressure 131/77 131/77 131/77 O2 Sat by Pulse 99 99 99 Oximetry 06/29/16 06/29/16 06/29/16 12:38 12:39 12:41 Temperature Pulse Rate 96 H 96 H 94 H Respiratory 21 13 21 Rate Blood Pressure 131/77 131/77 O2 Sat by Pulse 100 100 100 Oximetry 06/29/16 06/29/16 06/29/16 12:43 12:45 12:47 Temperature Pulse Rate 88 108 H 95 H Respiratory 23 15 20 Rate Blood Pressure 131/77 131/77 131/77 O2 Sat by Pulse 99 99 99 Oximetry 06/29/16 06/29/16 06/29/16 12:49 12:51 12:53 Temperature Pulse Rate 97 H 87 83 Respiratory 19 21 25 H Rate Blood Pressure 131/77 131/77 131/77 O2 Sat by Pulse 99 98 99 Oximetry 06/29/16 06/29/16 06/29/16 12:55 12:57 12:59 Temperature Pulse Rate 82 87 87 Respiratory 24 23 21 Rate Blood Pressure 131/77 131/77 131/77 O2 Sat by Pulse 99 99 100 Oximetry 06/29/16 06/29/16 06/29/16 13:01 13:03 13:05 Temperature Pulse Rate 92 H 95 H 89 Respiratory 17 17 17 Rate Blood Pressure 131/77 131/77 131/77 O2 Sat by Pulse 100 98 100 Oximetry 06/29/16 06/29/16 06/29/16 13:07 13:09 13:11 Temperature Pulse Rate 93 H 97 H 95 H Respiratory 17 22 22 Rate Blood Pressure 131/77 131/77 131/77 O2 Sat by Pulse 99 99 99 Oximetry 06/29/16 06/29/16 06/29/16 13:13 13:15 13:17 Temperature Pulse Rate 94 H 104 H 94 H Respiratory 20 22 13 Rate Blood Pressure 131/77 131/77 131/77 O2 Sat by Pulse 99 99 100 Oximetry 06/29/16 06/29/16 06/29/16 13:19 13:21 13:23 Temperature Pulse Rate 96 H 103 H 100 H Respiratory 25 H 23 24 Rate Blood Pressure 131/77 131/77 131/77 O2 Sat by Pulse 99 98 98 Oximetry 06/29/16 06/29/16 06/29/16 13:25 13:27 13:29 Temperature Pulse Rate 105 H 106 H 104 H Respiratory 24 26 H 25 H Rate Blood Pressure 131/77 131/77 131/77 O2 Sat by Pulse 99 99 99 Oximetry 06/29/16 06/29/16 06/29/16 13:31 13:33 13:35 Temperature Pulse Rate 97 H 111 H 93 H Respiratory 22 20 20 Rate Blood Pressure 131/77 131/77 131/77 O2 Sat by Pulse 100 97 98 Oximetry 06/29/16 06/29/16 06/29/16 13:37 13:39 13:41 Temperature Pulse Rate 99 H 89 93 H Respiratory 20 24 23 Rate Blood Pressure 131/77 131/77 131/77 O2 Sat by Pulse 98 99 99 Oximetry 06/29/16 06/29/16 06/29/16 13:43 13:45 13:47 Temperature Pulse Rate 85 90 96 H Respiratory 17 18 15 Rate Blood Pressure 131/77 131/77 131/77 O2 Sat by Pulse 99 99 99 Oximetry 06/29/16 06/29/16 06/29/16 13:49 13:51 13:53 Temperature Pulse Rate 93 H 99 H 99 H Respiratory 19 23 23 Rate Blood Pressure 131/77 131/77 131/77 O2 Sat by Pulse 99 100 100 Oximetry 06/29/16 06/29/16 06/29/16 13:55 13:57 13:59 Temperature Pulse Rate 92 H 101 H 78 Respiratory 17 19 14 Rate Blood Pressure 131/77 131/77 131/77 O2 Sat by Pulse 100 99 99 Oximetry 06/29/16 06/29/16 06/29/16 14:01 14:03 14:04 Temperature Pulse Rate 86 93 H 84 Respiratory 22 17 19 Rate Blood Pressure 131/77 131/77 121/70 O2 Sat by Pulse 99 98 98 Oximetry 06/29/16 06/29/16 06/29/16 14:05 14:07 14:09 Temperature Pulse Rate 85 91 H 97 H Respiratory 12 21 21 Rate Blood Pressure 121/70 121/70 121/70 O2 Sat by Pulse 100 99 99 Oximetry 06/29/16 06/29/16 06/29/16 14:11 14:13 14:15 Temperature Pulse Rate 91 H 95 H 97 H Respiratory 22 13 21 Rate Blood Pressure 121/70 121/70 121/70 O2 Sat by Pulse 99 99 98 Oximetry ED Medical Decision Making - Lab Data Result diagrams: 06/29/16 09:35 06/29/16 09:35 - EKG Data -: EKG Interpreted by Oh EKG shows normal: sinus rhythm, axis, intervals, QRS complexes, ST-T waves Rate: tachycardia - EKG Data When compared to previous EKG there are: no significant change Interpretation: normal EKG, unchanged when compared t (06/27/2016) - Radiology Data Radiology results: report reviewed CT of the head shows no acute intracranial abnormality. - Medical Decision Making Lab and imaging results reviewed and discussed with the patient. Review of the patient's previous visits to the emergency department over the past several months reveal the exact same complaints that she is having today. She has a normal physical exam and unchanged labs and unchanged imaging. Patient will be discharged home at this time to follow-up with a primary care physician. - Differential Diagnosis ACS, noncardiac chest pain, GI bleed, malingering Critical care attestation.: If time is entered above; I have spent that time in minutes in the direct care of this critically ill patient, excluding procedure time. ED Disposition Clinical Impression: Non-cardiac chest pain Disposition: DISCHARGED TO HOME OR SELFCARE Is pt being admited?: No Condition: Stable Instructions: Chest Pain (ED) Prescriptions: HYDROcodone/APAP 5-325 [[place] 5/325] 1 each PO Q6HR PRN #8 tablet PRN Reason: Pain Promethazine [Phenergan TAB] 25 mg PO Q6HR PRN #10 tab PRN Reason: Nausea Referrals: [facility] [Provider Group] - 3-5 Days Time of Disposition: 14:50
[2016-06-29 14:59] VITALS: BP 128/78
== END 2016-06-29 15:13 | disposition home or self-care (01) ==
LOC: ED 09:07
DX: R07.9 Chest pain, unspecified (principal)
CPT/HCPCS: 36415; 70450; 80048; 84484; 85025; 85610; 85730; 93005; 93010; 99285

== ENCOUNTER 2016-07-17 21:19 | Inpatient (IN) | payer MEDICAID ==
[2016-07-17 22:18] LABS: Basophils % (Auto) 0.5 % (0.0-1.8); Eosinophils % (Auto) 0.8 % (0.0-4.3); Hematocrit 42.9 % (30.3-42.9); Mean Corpuscular HGB Conc 33 % (30-34); Mean Corpuscular Hemoglobin 26 pg (28-32); Mean Corpuscular Volume 80 fl (79-97); Platelet Count 287 K/mm3 (140-440); Red Blood Count 5.39 M/mm3 (3.65-5.03); Red Cell Distribution Width 13.7 % (13.2-15.2); White Blood Count 9.1 K/mm3 (4.5-11.0)
[2016-07-17 22:32] LABS: Anion Gap 20 mmol/L; Blood Urea Nitrogen 18 mg/dL (7-17); Calcium 9.4 mg/dL (8.4-10.2); Carbon Dioxide 20 mmol/L (22-30); Chloride 102.3 mmol/L (98-107); Glucose 92 mg/dL (65-100); Potassium 4.2 mmol/L (3.6-5.0); Sodium 138 mmol/L (137-145)
[2016-07-18] MEDS ORDERED: MORPHINE IV ONE ×2 (06:43→10:00)
[2016-07-18] MEDS ORDERED: ZOFRAN IV ONE ×2 (06:43→10:00)
[2016-07-18] MEDS ORDERED: KEPPRA 1,000 MG/NS 0.75% 100ML 1,000 MG/100 ML BAG IV ONE ×2 (06:43→10:00)
[2016-07-18] MEDS ORDERED: PROTONIX IV ONE ×2 (06:43→10:00)
--- NOTE | 2016-07-18 06:47 | Emergency Department Report ---
HPI - General Chief Complaint: Chest Pain Time Seen by Provider: 07/18/16 06:22 - HPI HPI: This is a 35-year-old -[place] female who presents to the emergency department, dropped off to be seen today, with the complaints of chest pain, shortness of breath, vomiting blood and been going on for the past 24 hours. Patient has a past medical history significant for history of PE 2, UT 1, pericarditis, seizures, Graves' disease with hyperthyroidism. Patient says she last had a seizure today in the waiting room prior to coming back to the main emergency department. She previously was prescribed Keppra but says she is unable to fill it until the first of the year secondary to cost. She last found out she had a PE one month ago at [place], her second one. She is currently on Eloquist says she has not missed any doses. She has an appointment coming up in 1.5 weeks with primary care, cardiology and pulmonology but cannot remember any of their names currently. Recent travel or sick contacts at home. She denies tobacco abuse or any illicit drug use. She has not taken anything for symptoms prior to presentation. ED Past Medical Hx - Past Medical History Previous Medical History?: Yes Hx Heart Attack/AMI: (pt states "needing stents") Hx Pulmonary Embolism: Yes Hx Seizures: Yes Hx Psychiatric Treatment: Yes (anxiety) Additional medical history: pericarditis, pt states hyperthyroidism, thyroid storm, PE x 2, Graves Disease, heart murmur, seizures - Social History Smoking Status: Unknown if ever smoked Substance Use Type: Marijuana - Medications Home Medications: Home Medications Medication Instructions Recorded Confirmed Last Taken Type Apixaban [Eliquis] 1 tab PO BID 02/17/16 06/29/16 06/28/16 History Methimazole [Tapazole] 10 mg PO Q8H #21 tablet 04/26/16 06/29/16 06/28/16 Rx Propranolol [Inderal] 40 mg PO Q12HR #14 tablet 04/26/16 06/29/16 06/28/16 Rx levETIRAcetam [Keppra TAB] 500 mg PO BID #60 tablet 06/27/16 06/29/16 Unknown Rx HYDROcodone/APAP 5-325 [[place] 1 each PO Q6HR PRN #8 tablet 06/29/16 Unknown Rx 5/325] Promethazine [Phenergan TAB] 25 mg PO Q6HR PRN #10 tab 06/29/16 Unknown Rx Quetiapine Fumarate [SEROquel XR] 300 mg PO QDAY 06/29/16 06/29/16 06/28/16 History methylPREDNISolone [Medrol Dose 4 mg PO DAILY 06/29/16 06/29/16 06/28/16 History Andrew] ED Review of Systems ROS: Stated complaint: CP/VOMITING/SEIZURES/PALPITATIONS Other details as noted in HPI Comment: All other systems reviewed and negative Constitutional: denies: chills, fever Eyes: denies: eye pain, eye discharge, vision change ENT: denies: ear pain, throat pain Respiratory: cough, shortness of breath Cardiovascular: chest pain Gastrointestinal: nausea, vomiting, hematemesis Genitourinary: denies: urgency, dysuria, discharge Musculoskeletal: denies: back pain, joint swelling, arthralgia Skin: denies: rash, lesions Neurological: denies: headache, weakness, paresthesias Physical Exam - Physical Exam Vital Signs: Vital Signs 07/17/16 21:44 Temperature 98.2 F Pulse Rate 107 H Respiratory 20 Rate Blood Pressure 125/80 O2 Sat by Pulse 100 Oximetry Physical Exam: GENERAL: The patient is well-developed well-nourished. HEENT: Normocephalic. Atraumatic. Extraocular motions are intact. Patient has moist mucous membranes. Pupils equal reactive to light bilaterally. NECK: Supple. Trachea is midline. CHEST/LUNGS: Clear to auscultation. There is no respiratory distress noted. Chest pain is not reproducible to palpation of chest wall. HEART/CARDIOVASCULAR: Regular. There is mild tachycardia. There is no gallop rub or murmur. ABDOMEN: Abdomen is soft, nontender. Patient has normal bowel sounds. There is no abdominal distention. SKIN: Skin is warm and dry. NEURO: The patient is awake, alert, and oriented. The patient is cooperative. The patient has no focal neurologic deficits. The patient has normal speech. Cranial nerves II through XII grossly intact. MUSCULOSKELETAL: There is no tenderness or deformity. There is no limitation range of motion. There is no evidence of acute injury. ED Course Vital Signs 07/17/16 21:44 Temperature 98.2 F Pulse Rate 107 H Respiratory 20 Rate Blood Pressure 125/80 O2 Sat by Pulse 100 Oximetry - Pulse Oximetry Interpretation Digit-Finger Initial Pulse Oximetry Readin O2 Sat by Pulse Oximetry: 100 Actions Taken: none ED Medical Decision Making - Lab Data Result diagrams: 07/17/16 21:57 07/17/16 21:57 - EKG Data -: EKG Interpreted by Me EKG shows normal: sinus rhythm, axis, intervals, QRS complexes, ST-T waves Rate: tachycardia (106 bpm) - EKG Data When compared to previous EKG there are: no significant change Interpretation: unchanged when compared t (06/29/16) - Radiology Data Radiology results: report reviewed, image reviewed interpreted by me: Chest x-ray did not show any acute process. Heart is normal shape and size. No effusions. No pneumothorax. No signs of pneumonia seen. VQ scan is negative for pulmonary embolism. - Medical Decision Making 35-year-old female presents with the complaints of chest pain, shortness of breath, hematemesis. The patient has had multiple visits here for similar complaints. The patient's labs show some hyperthyroidism and the patient had a elevated d-dimer. We had trouble getting a 20-gauge Angiocath in the AC or higher or any EJ so instead of a CT angiography, a VQ scan was done however the VQ scan was low suspicion for pulmonary embolism. While the patient says that she has an appointment coming up in 1.5 weeks with a primary care doctor, speech clinician and opener, the patient has not been admitted here for these complaints in the 4-5 visits that she has had in the last month. Since one of the complaints involved chest pain, the patient will be admitted to the hospital for further evaluation and either a stress test or cardio consultation. There is been no further vomiting and/or hematemesis since being in the emergency department. Hemoglobin is stable. There are no signs of infection currently. Vital signs stable throughout her ED course. - Differential Diagnosis UT, PE, CHF, costochondritis, gastric or intestinal ulcer, malingering Critical Care Time: No Critical care attestation.: If time is entered above; I have spent that time in minutes in the direct care of this critically ill patient, excluding procedure time. ED Disposition Clinical Impression: Dyspnea Chest pain Qualifiers: Chest pain type: unspecified Qualified Code(s): R07.9 - Chest pain, unspecified Disposition: OP ADMITTED IP TO THIS HOSP Is pt being admited?: Yes Condition: Stable Time of Disposition: 13:51
--- NOTE | 2016-07-18 08:31 | XRay Report ---
AP CHEST: HISTORY: chest pain Compared to 06/27/16. AP view of the chest demonstrates a normal mediastinal and cardiac contour with clear lungs and normal bony and soft tissue structures. IMPRESSION: Unremarkable AP chest.
[2016-07-18] MEDS ORDERED: NACL ONE (08:39)
--- NOTE | 2016-07-18 11:19 | Nuclear Medicine Report ---
LUNG SCAN, VENTILATION AND PERFUSION: History: Chest pain. Technique: 5mci of Tc99m MAA was infused for the perfusion images. 15mci XE 133 gas was inhaled for the ventilatory images. Correlation is made with a chest x-ray dated 07/18/16 at 0755 hrs. Findings: Inhalation of Xenon gas demonstrates a normal distribution of the activity throughout both lungs. The wash out phases show no focal retention of activity. After injection of Technetium 99m macroaggregated albumin gamma camera imaging of the lungs in multiple projections demonstrates normal pulmonary contours with a homogeneous distribution of activity. No focal areas of perfusion deficiency are identified. IMPRESSION: Low probability for pulmonary embolus.
[2016-07-18] MEDS ORDERED: SODIUM CHLORIDE FLUSH SYRINGE 10 ML IV PRN (12:27)
[2016-07-18] MEDS ORDERED: NON-FORMULARY (Quetiapine Fumarate [Seroquel Xr] 300 MG) PO SCH (12:30)
[2016-07-18] MEDS ORDERED: ZOFRAN IV PRN (12:31)
[2016-07-18] MEDS ORDERED: PROAIR IH PRN (12:36)
--- NOTE | 2016-07-18 12:43 | History and Physical Report ---
History of Present Illness Date of examination: 07/18/16 Chief complaint: Chest pain, hematemesis History of present illness: 35-year-old -[place] female with past medical history significant for seizure, hypothyroidism, PE, pericarditis presented to the emergency department complaining of left-sided chest pain and hematemesis for the last 2 days. Chest pain is sharp, 10 out of 10, with radiation to the left arm, no alleviating factor, worsened with exertion, associated with times of breath and diaphoresis. Patient is complaining of coffee ground emesis happened 5-6 times the last 2 days, associated with nausea, burning epigastric pain, 10 out of 10, with no radiation. Patient denies history of hyperthyroidism and complaining tachycardia; the patient has been no note of her methimazole and propranolol for the last 1 week. Patient had history of seizure and Keppra was ordered a month ago but she couldn't fill the script. Patient is diagnosed she's PE and has been on eliquis. REVIEW OF SYSTEMS: GENERAL: no weight change, no fatigue, + fever HEAD: no head ache EYES: no blurry vision, no acute visual loss EARS: no hearing loss, no discharge, no earache NOSE: no stuffiness, no sneezing, no discharge MOUTH, THROAT AND NECK: no bleeding gums, no sore throat, no swollen neck CARDIAC:+palpitations, + dyspnea on exertion, no orthopnea, no PND, + edema, + chest pain RESPIRATORY: + shortness of breath, no wheeze, no cough, no sputum, no hemoptysis, no asthma GI: no decreased appetite, + nausea, + vomiting, no dysphagia, no diarrhea, no constipation,+ abdominal pain URINARY: no change in frequency, no urgency, no polyuria, no hematuria, no incontinence MUSCULOSKELETAL: no muscle weakness, no pain, no joint stiffness NEUROLOGIC: no loss of sensation/numbness, no tingling, no tremors, no weakness/ paralysis HEMATOLOGIC: no anemia, no easy bruising SKIN: no rashes ENDOCRINE: + heat/cold intolerance, no polyuria, no polydipsia, + thyroid problems, no diabetes PSYCHIATRIC: no anxiety, no depression, no suicidal ideations. Past History Past Medical History: arrhythmia, hyperthyroidism, pulmonary embolism, seizures Past Surgical History: No surgical history Social history: full code. denies: smoking, alcohol abuse, prescription drug abuse, IV drug use Family history: no significant family history Medications and Allergies Allergies Allergy/AdvReac Type Severity Reaction Status Date / Time garlic Allergy Unknown Verified 06/27/16 10:59 ibuprofen [From Motrin] Allergy Unknown Verified 01/16/16 11:01 Penicillins Allergy Unknown Verified 01/16/16 11:01 Home Medications Medication Instructions Recorded Confirmed Last Taken Type Apixaban [Eliquis] 1 tab PO BID 02/17/16 06/29/16 06/28/16 History Methimazole [Tapazole] 10 mg PO Q8H #21 tablet 04/26/16 06/29/16 06/28/16 Rx Propranolol [Inderal] 40 mg PO Q12HR #14 tablet 04/26/16 06/29/16 06/28/16 Rx levETIRAcetam [Keppra TAB] 500 mg PO BID #60 tablet 06/27/16 06/29/16 Unknown Rx HYDROcodone/APAP 5-325 [[place] 1 each PO Q6HR PRN #8 tablet 06/29/16 Unknown Rx 5/325] Promethazine [Phenergan TAB] 25 mg PO Q6HR PRN #10 tab 06/29/16 Unknown Rx Quetiapine Fumarate [SEROquel XR] 300 mg PO QDAY 06/29/16 06/29/16 06/28/16 History methylPREDNISolone [Medrol Dose 4 mg PO DAILY 06/29/16 06/29/16 06/28/16 History Andrew] Active Meds: Active Medications Albuterol (Proair) 2 puff IH Q4HRT PRN PRN Reason: Shortness Of Breath Aspirin (Baby Aspirin) 81 mg PO QDAY ELLIOTT Pantoprazole Sodium 80 mg/ (Sodium Chloride) 100 mls @ 10 mls/hr IV Q10H ELLIOTT PRN Reason: 8 MG/HR Levetiracetam (Keppra) 500 mg PO BID ELLIOTT Methimazole (Tapazole) 10 mg PO Q8HR ELLIOTT Methylprednisolone Sodium Succinate (Solu-Medrol) 40 mg IV ONCE ONE Stop: 07/18/16 12:37 Miscellaneous Medication (Methimazole [Tapazole]) 10 mg PO Q8H ELLIOTT Miscellaneous Medication (Quetiapine Fumarate [Seroquel Xr]) 300 mg PO QDAY ELLIOTT Morphine Sulfate (Morphine) 2 mg IV Q4H PRN PRN Reason: Chest Pain Ondansetron HCl (Zofran) 4 mg IV Q8H PRN PRN Reason: N/V unrelieved by Reglan Propranolol HCl (Inderal) 40 mg PO Q12HR ELLIOTT Sodium Chloride (Sodium Chloride Flush Syringe 10 Ml) 10 ml IV PRN PRN PRN Reason: LINE FLUSH Exam - Physical Exam Narrative exam: Not in cardiopulmonary distress. The patient appeared emaciated. Vital signs as documented. Head exam is unremarkable. No scleral icterus . Neck is without jugular venous distension, thyromegaly, or carotid bruits. Lungs are clear to auscultation. Cardiac exam reveals tachycardia and murmur. Left-sided Chest wall tenderness. Abdominal exam reveals gastric tenderness. Extremities trace edema. 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 No focal weakness. - Constitutional Vitals: Temp Pulse Resp BP Pulse Ox 98.2 F 95 H 27 H 125/80 100 07/17/16 21:44 07/18/16 07:10 07/18/16 07:10 07/17/16 21:44 07/18/16 07:10 Results - Labs CBC & Chem 7: 07/17/16 21:57 07/17/16 21:57 Labs: Laboratory Last Values WBC 9.1 K/mm3 (4.5-11.0) 07/17/16 21:57 RBC 5.39 M/mm3 (3.65-5.03) H 07/17/16 21:57 Hgb 14.0 gm/dl (10.1-14.3) 07/17/16 21:57 Hct 42.9 % (30.3-42.9) 07/17/16 21:57 MCV 80 fl (79-97) 07/17/16 21:57 MCH 26 pg (28-32) L 07/17/16 21:57 MCHC 33 % (30-34) 07/17/16 21:57 RDW 13.7 % (13.2-15.2) 07/17/16 21:57 Plt Count 287 K/mm3 (140-440) 07/17/16 21:57 Lymph % (Auto) 38.4 % (13.4-35.0) H 07/17/16 21:57 [place]mullen % (Auto) 9.8 % (0.0-7.3) H 07/17/16 21:57 Eos % (Auto) 0.8 % (0.0-4.3) 07/17/16 21:57 Baso % (Auto) 0.5 % (0.0-1.8) 07/17/16 21:57 Lymph # 3.5 K/mm3 (1.2-5.4) 07/17/16 21:57 [place]ullen # 0.9 K/mm3 (0.0-0.8) H 07/17/16 21:57 Eos # 0.1 K/mm3 (0.0-0.4) 07/17/16 21:57 Baso # 0.0 K/mm3 (0.0-0.1) 07/17/16 21:57 Seg Neutrophils % 50.5 % (40.0-70.0) 07/17/16 21:57 Seg Neutrophils # 4.6 K/mm3 (1.8-7.7) 07/17/16 21:57 D-Dimer 441.60 ng/mlDDU (0-234) H 07/18/16 06:39 Sodium 138 mmol/L (137-145) 07/17/16 21:57 Potassium 4.2 mmol/L (3.6-5.0) 07/17/16 21:57 Chloride 102.3 mmol/L (98-107) 07/17/16 21:57 Carbon Dioxide 20 mmol/L (22-30) L 07/17/16 21:57 Anion Gap 20 mmol/L 07/17/16 21:57 BUN 18 mg/dL (7-17) H 07/17/16 21:57 Creatinine 0.4 mg/dL (0.7-1.2) L 07/17/16 21:57 Estimated GFR > 60 ml/min 07/17/16 21:57 BUN/Creatinine Ratio 45.00 % 07/17/16 21:57 Glucose 92 mg/dL (65-100) 07/17/16 21:57 Calcium 9.4 mg/dL (8.4-10.2) 07/17/16 21:57 Troponin T < 0.010 ng/mL (0.00-0.029) 07/18/16 04:08 TSH < 0.005 mlU/mL (0.270-4.200) L 07/17/16 21:57 Free T4 4.68 ng/dL (0.76-1.46) H 07/17/16 21:57 Assessment and Plan Assessment and plan: Hematemesis - Patient is on IV pantoprazole - Hemoglobin and hematocrit is stable - GI consult placed - We'll monitor closely Chest pain - First set of cardiac enzymes are negative, EKG shows sinus tach - We will do 2 more sets of cardiac enzymes - Stress test tomorrow morning, echocardiogram - Cardiology consult Hyperthyroidism - TSH is very low - We'll restart methimazole and propranolol - a dose of Solu-Medrol given Seizure - Restart Keppra History of PE - I held eliqis because of hematemesis - Ventilation/perfusion scan is negative this morning DVT prophylaxis - SCD, no chemical prophylaxis because of hematemesis Disposition - Admit to telemetry floor Advance Directives: Yes VTE prophylaxis?: Mechanical Contraindication Mechanical VTE Prophylaxis: Contraindicated Reason for no VTE Prophylaxis: Bleeding Plan of care discussed with patient/family: Yes
[2016-07-18] MEDS ORDERED: PROVENTIL IH PRN (13:03)
[2016-07-18] MEDS ORDERED: MORPHINE ONE (14:44)
[2016-07-18] MEDS: MORPHINE IV PRN ×3 (15:11→23:20)
--- NOTE | 2016-07-18 15:23 | Admit Criteria Form ---
Admission Criteria Documentation: CARDIOLOGY GRG Clinical Indications for Admission to Inpatient Care ( Place 'X' for any and all applicable criteria): Hospital admission is needed for appropriate care of the patient because of ANY ONE of the following (1): [ ] I. Hemodynamic instability as indicated by ALL of the following (1)(2)(3) (4)(5) [ ]a) Vital signs or other findings not as expected for chronic patient condition or baseline [ ]b) Instability indicated by ANY ONE of the following: [ ]i) Hypotension [ ]ii) Symptomatic Tachycardia unresponsive to treatment ( e.g., analgesia, fluids, sedation as indicated) [ ]iii) Inadequate perfusion indicated by ANY ONE of the following: [ ] 1) Lactic acidosis (> 2 mmol/L) [ ] 2) New abnormal capillary refill (> 3 seconds) [ ] 3) Reduced urine output [ ] 4) New altered mental status [ ]iv) Orthostatic vital sign changes unresponsive to treatment (e.g., fluids) [ ]v) IV inotropic or vasopressor medication required to maintain adequate blood pressure or perfusion [ ] II. Severe heart failure as indicated by ANY ONE of the following(17)(18) [ ]a) Respiratory distress [ ]b) Hypotension [ ]c) Anasarca (refractory to outpatient therapy) [ ]d) Cardiac arrhythmias of immediate concern [ ]e) Myocardial ischemia [ ] III. Cardiac arrhythmias or findings of immediate concern indicated by ANY ONE of the following (19)(20): [ ] a) Heart rhythms that are inherently dangerous or unstable indicated by ANY ONE of the following (21)(22)(23): [ ] i) Resuscitated ventricular fibrillation or cardiac arrest [ ] ii) Ventricular escape rhythm [ ] iii) Sustained ventricular tachycardia (30 seconds or more of ventricular rhythm at greater than 100 beats per minute) [ ] iv) Nonsustained ventricular tachycardia and ANY ONE of the following: [ ] 1) Suspected cardiac ischemia as cause or consequence of ventricular tachycardia [ ] 2) In setting of acute myocarditis [ ] b) Unstable cardiac conduction defects indicated by ANY ONE of the following(23)(24)(25) [ ] i) Type II second-degree atrioventricular block [ ]ii) Third-degree atrioventricular block [ ]iii) New-onset left bundle branch block with suspected myocardial ischemia [ ]c) Any heart rhythm and ANY ONE of the following (21)(22)(26)(27) (28) [ ] i) Continuous long-term ECG monitoring needed (e.g., initiation of drug requiring monitoring for more than 24 hours) [ ] ii) Patient has automatic implanted cardioverter defibrillator that is repeatedly firing, malfunctioning, or in need of immediate adjustment of settings beyond the scope of ambulatory or observation care [ ]d) Heart rhythms of concern due to ANY ONE of the following: [ ] i) Hypotension [ ] ii) Respiratory distress [ ] iii) Association with other significant symptoms (e.g., bradycardia with syncope or ongoing dizziness, supraventricular tachycardia with chest pain (14)(15)(17) [ ] IV. Monitoring for cardiac contusion beyond the scope of observation care needed [A](30)(31)(32) [ ] V. Surgical or device complication (e.g., valve replacement complication , pacemaker dysfunction) (35)(41)(44)(45)(46) [ ] . Inpatient palliative care needed. [B](49) Also use Inpatient Palliative Care Criteria [ ] VII. Nonbacterial thrombotic (marantic) endocarditis (36)(43)(47)(48) [X ] VIII. Cardiology condition, symptom, or finding for which emergency and observation care has failed or are not considered appropriate. [ ] IX. Acute valvular disease requiring inpatient as indicated by ANY ONE of the following (41) [ ]a) Acute valvular regurgitation (42) [ ]b) Noninfectious valvulitis (43) [ ]c) Obstructive valve thrombosis [ ]d) Paravalvular leak [ ]e) Other significant valvular disorder remaining after emergency or observation level of care (as appropriate) [ ]X. Pericardial disease requiring inpatient treatment as indicated by ANY ONE of the following (33)(34)(35)(36)(37) [ ]a) Suspected tamponade (38)(39)(40) [ ]b) Hemopericardium [ ]c) Other significant pericardial disorder remaining after emergency or observation level of care (as appropriate) [ ] XI. Cardiac ischemia beyond scope of emergency and observation care. [ ] XII. Hypertension requiring inpatient treatment as indicated by ANY ONE of the following (6)(7)(8) [ ]a) SBP greater than 220 mm Hg or DBP greater than 120 mmHg despite treatment [ ]b) SBP greater than 140 mm Hg or DBP greater than 100 mm Hg with evidence of acute end organ damage as indicated by ANY ONE of the following [ ] i) Altered mental status [ ] ii) Acute renal failure as indicated by new onset of ANY ONE of the following (9)(10)(11)(12)(13) [ ]1) 3-fold rise in serum creatinine from baseline [ ]2) Serum creatinine greater than 4 mg/dL ( 354 micromoles/L) with acute rise greater than 0.5 mg/dL (44.2 micromoles/L) [ ]3) Reduction of more than 75% in estimated glomerular filtration rate from baseline [ ]4) Estimated glomerular filtration rate less than 35 mL/min/1.73m2 (0.59 mL/sec/1.73m2) in child up to 18 years of age [ ]5) Cessation of urine output indicated by ALL of the following [ ]A. Adequate volume status [ ]B. Inadequate urine output as indicated by ANY ONE of the following [ ]a. Urine output less than 0.3 mL/kg/hr for 24 hours [ ]b. Anuria (urine output less than 0.1 mL/kg/hr) for 12 hours [ ] iii) Aortic dissection [ ] iv) Myocardial Ischemia [ ] v) Left ventricular heart failure [ ]vi) Retinal Hemorrhage [ ]vii) Other significant finding [ ]c) Hypertension in child requiring inpatient treatment as indicated by ALL of the following(14)(15)(16) [ ] i) Outpatient treatment not effective, not available, or not appropriate [ ]ii) SBP or DBP greater than 95th percentile for age [ ]iii) Evidence of acute end organ damage as indicated by ANY ONE of the following [ ]1) Altered mental status [ ]2) Acute renal failure as indicated by new onset of ANY ONE of the following(9)(10)(11)(12)(13) [ ]A. 3-fold rise in serum creatinine from baseline [ ]B. Serum creatinine greater than 4 mg/dL (354 micromoles/L) with acute rise greater than 0.5 mg/dL (44.2 micromoles/L) [ ]C. Reduction of more than 75% in estimated glomerular filtration rate from baseline [ ]D. Estimated glomerular filtration rate less than 35 mL/min/1.73m2 (0.59 mL/sec/1.73m2) in child up to 18 years of age [ ]E. Cessation of urine output indicated by ALL of the following [ ]a. Adequate volume status [ ]b. Inadequate urine output as indicated by ANY ONE of the following [ ]i) Urine output less than 0.3 mL/kg/hr for 24 hours [ ]ii) Anuria ( urine output less than 0.1 mL/kg/hr) for 12 hours [ ]3) Severe headache [ ]4) Visual disturbance [ ]5) Retinal hemorrhage [ ]6) Other significant finding [ ]XIII. Complications of transplanted heart indicated by ANY ONE of the following(61): [ ]a) Acute graft rejection requiring inpatient management (eg, intravenous immunosuppression)(62)(63) [ ]b) Acute graft heart failure indicated by ANY ONE of the following(64): [ ]i) Hemodynamic instability [ ]ii) Cardiac arrhythmias of immediate concern [ ]iii) Pulmonary edema that is very severe (eg, mechanical ventilation needed, imminent or likely, need for 100% oxygen to keep oxygen saturation above 90%) [ ]iv) Pulmonary edema that is persistent as indicated by ALL of the following: [ ]1) New need for oxygen therapy to keep oxygen saturation above 90% (or increased FiO2 need from baseline) [ ]2) Has not improved sufficiently with emergency department or observation care IV diuretics or other heart failure treatments[E] [ ]v) Altered mental status that is severe or persistent [ ]vi) Increased creatinine (new on laboratory test) with reduction of more than 50% in estimated glomerular filtration rate from baseline [ ]vii) Progressively (ongoing) rising creatinine (known from past laboratory test) with reduction of more than 25% in estimated glomerular filtration rate from baseline [ ]viii) Acute renal failure [ ]ix) Acute peripheral ischemia (eg, examination shows pulseless, cool, mottled, or cyanotic extremity) [ ]x) Pulmonary artery catheter monitoring needed [ ]xi) Other sign or symptom of heart failure requiring inpatient treatment (ie, too severe or not responsive to outpatient and observation care treatment) [ ]c) Infection requiring inpatient management (eg, Hemodynamic instability, need for intravenous antimicrobial treatment)(66)(67)(68)(69)(70) [ ]d) Cardiac allograft vasculopathy requiring inpatient management ( eg evidence of cardiac ischemia)(71) [ ]e) Other complication of transplanted heart (eg, stroke, severe pulmonary hypertension, severe valvular dysfunction) requiring inpatient management(72) The original [facility] [employer] content created by [facility] has been revised. The portions of the content which have been revised are identified through the use of italic text or in bold, and [facility] has neither reviewed nor approved the modified material. All other unmodified content is copyright [facility] [employer]. Please see references footnoted in the original [facility] [employer] edition 2016 Admission Criteria Met: Yes
[2016-07-18 16:30] LABS: Creatine Kinase 54 units/L (30-135)
[2016-07-18 16:36] LABS: Creatine Kinase MB < 1.0 ng/mL (0.0-4.0)
[2016-07-18] MEDS: PROTONIX 80 MG in NACL 0.9% 100 ML IV SCH ×2 (16:47→23:20)
[2016-07-18] MEDS: INDERAL PO SCH ×2 (16:55→21:06)
[2016-07-18] MEDS: TAPAZOLE PO SCH ×2 (16:55→21:05)
[2016-07-18] MEDS: KEPPRA PO SCH (21:07)
[2016-07-18 22:04] LABS: Creatine Kinase 58 units/L (30-135)
[2016-07-18 22:06] LABS: Creatine Kinase MB < 1.0 ng/mL (0.0-4.0)
[2016-07-18] MEDS: NON-FORMULARY (Methimazole [Tapazole] 10 MG) PO SCH (22:42)
[2016-07-18 22:57] LABS: Urine Drugs of Abuse Note Disclamer
[2016-07-18 23:04] LABS: Bilirubin,Urine NEG (Negative); Blood,Urine SM (Negative); Ketones,Urine NEG (Negative); Leukocyte Esterase,Urine NEG (Negative); Mucus,Urine FEW /HPF; Nitrite,Urine NEG (Negative); Protein,Urine <15 mg/dL mg/dL (Negative); RBC,Urine < 1.0 /HPF (0.0-6.0); Urobilinogen,Urine < 2.0 mg/dL (<2.0); WBC,Urine < 1.0 /HPF (0.0-6.0)
[2016-07-19] MEDS: MORPHINE IV PRN ×5 (03:19→20:37)
[2016-07-19] MEDS: TAPAZOLE PO SCH ×3 (05:30→22:15)
[2016-07-19] MEDS: INDERAL PO SCH ×2 (10:31→22:15)
[2016-07-19] MEDS: BABY ASPIRIN PO SCH (10:32)
[2016-07-19] MEDS: KEPPRA PO SCH ×2 (10:33→22:17)
--- NOTE | 2016-07-19 11:35 | Gastroenterology Consultation ---
History of Present Illness - Reason for Consult Consult date: 07/19/16 hematemesis Requesting physician: JULIO CÉSAR SENA - History of Present Illness Pt is a 35 y/o female admitted for CP and hematemesis. Cardiac enzymes negative. Pt is scheduled for stress test tomorrow. PMH significant for PE, pericarditis, seizure, and hypothyroidism. Pt had been on Eliquis at home for tx of PE. Last dose 3 days ago. Pt is alert and oriented, sitting up in bed without acute distress. Reports nausea with vomiting with marroon/coffee ground emesis x 2 days prior to admission and bright red blood in stool x once 3 days ago with BM with no blood in toilet. Denies N/V today. Tolerating diet. No sign of overt bleeding. Denies diarrhea or BM today. Admits to continued CP and generalized abd discomfort. No hx of PUD or Fhx of colon CA. Denies ever having EGD or colonoscopy. Past History Past Medical History: arrhythmia, hyperthyroidism, pulmonary embolism, seizures Past Surgical History: No surgical history Social history: full code. denies: smoking, alcohol abuse, prescription drug abuse, IV drug use Family history: no significant family history Medications and Allergies Allergies Allergy/AdvReac Type Severity Reaction Status Date / Time garlic Allergy Unknown Verified 06/27/16 10:59 ibuprofen [From Motrin] Allergy Unknown Verified 01/16/16 11:01 Penicillins Allergy Unknown Verified 01/16/16 11:01 Home Medications Medication Instructions Recorded Confirmed Last Taken Type Apixaban [Eliquis] 1 tab PO BID 02/17/16 07/19/16 1 Day Ago History Methimazole [Tapazole] 10 mg PO Q8H #21 tablet 04/26/16 07/19/16 1 Day Ago Rx Propranolol [Inderal] 40 mg PO Q12HR #14 tablet 04/26/16 07/19/16 2 Days Ago Rx levETIRAcetam [Keppra TAB] 500 mg PO BID #60 tablet 06/27/16 07/19/16 1 Day Ago Rx HYDROcodone/APAP 5-325 [[place] 1 each PO Q6HR PRN #8 tablet 06/29/16 07/19/16 1 Week Ago Rx 5/325] Promethazine [Phenergan TAB] 25 mg PO Q6HR PRN #10 tab 06/29/16 07/19/16 2 Days Ago Rx Quetiapine Fumarate [SEROquel XR] 300 mg PO QDAY 06/29/16 07/19/16 2 Days Ago History methylPREDNISolone [Medrol Dose 4 mg PO DAILY 06/29/16 07/19/16 2 Days Ago History Andrew] Active Meds: Active Medications Albuterol (Proventil) 2.5 mg IH Q4HRT PRN PRN Reason: Shortness Of Breath Last Admin: 07/19/16 07:47 Dose: 2.5 mg Aspirin (Baby Aspirin) 81 mg PO QDAY [facility] Pantoprazole Sodium 80 mg/ (Sodium Chloride) 100 mls @ 10 mls/hr IV DIRECT [facility] PRN Reason: 8 MG/HR Levetiracetam (Keppra) 500 mg PO BID [facility] Last Admin: 07/18/16 21:07 Dose: 500 mg Methimazole (Tapazole) 10 mg PO Q8HR [facility] Last Admin: 07/19/16 05:30 Dose: 10 mg Morphine Sulfate (Morphine) 2 mg IV Q4H PRN PRN Reason: Chest Pain Last Admin: 07/19/16 07:50 Dose: 2 mg Ondansetron HCl (Zofran) 4 mg IV Q8H PRN PRN Reason: N/V unrelieved by Reglan Propranolol HCl (Inderal) 40 mg PO Q12HR [facility] Last Admin: 07/18/16 21:06 Dose: 40 mg Quetiapine Fumarate (Seroquel) 100 mg PO BID [facility] Last Admin: 07/18/16 21:06 Dose: 100 mg Quetiapine Fumarate (Seroquel) 200 mg PO QHS [facility] Last Admin: 07/18/16 21:07 Dose: 200 mg Sodium Chloride (Sodium Chloride Flush Syringe 10 Ml) 10 ml IV PRN PRN PRN Reason: LINE FLUSH Review of Systems - Review of Systems All systems: negative Cardiovascular: chest pain, shortness of breath Gastrointestinal: abdominal pain, coffee ground emesis, hematochezia Exam - Constitutional Vital Signs: Temp Pulse Resp BP Pulse Ox 98.5 F 79 16 122/63 99 07/19/16 09:05 07/19/16 09:05 07/19/16 09:05 07/19/16 09:05 07/19/16 09:05 General appearance: no acute distress - EENT ENT: hearing intact - Respiratory Respiratory: bilateral: diminished - Cardiovascular Rhythm: regular Heart Sounds: Present: S1 & S2, systolic murmur - Gastrointestinal General gastrointestinal: Present: other (pt refused abdominal assessment) - Integumentary Integumentary: Present: warm, dry - Neurologic Neurological: alert and oriented x3 - Psychiatric Psychiatric: appropriate mood/affect, other (uncooperative) - Labs CBC & Chem 7: 07/17/16 21:57 07/17/16 21:57 Lab Results: Laboratory Results - last 24 hr 07/18/16 07/18/16 07/18/16 12:39 15:51 21:25 Total Creatine Kinase 54 58 CK-MB (CK-2) < 1.0 < 1.0 CK-MB (CK-2) Rel Index 1.8 1.7 Troponin T < 0.010 < 0.010 Triglycerides 68 Cholesterol 124 LDL Cholesterol Direct 57 HDL Cholesterol 54 Cholesterol/HDL Ratio 2.29 Urine Color Urine Turbidity Urine pH Ur Specific Lerna Urine Protein Urine Glucose (UA) Urine Ketones Urine Blood Urine Nitrite Urine Bilirubin Urine Urobilinogen Ur Leukocyte Esterase Urine WBC (Auto) Urine RBC (Auto) U Epithel Cells (Auto) Urine Mucus Urine Opiates Screen Urine Methadone Screen Ur Barbiturates Screen Ur Phencyclidine Scrn Ur Amphetamines Screen U Benzodiazepines Scrn Urine Cocaine Screen U Marijuana (THC) Screen Drugs of Abuse Note 07/18/16 07/18/16 Unknown Unknown Total Creatine Kinase CK-MB (CK-2) CK-MB (CK-2) Rel Index Troponin T Triglycerides Cholesterol LDL Cholesterol Direct HDL Cholesterol Cholesterol/HDL Ratio Urine Color Straw Urine Turbidity Clear Urine pH 6.0 Ur Specific Lerna 1.007 Urine Protein <15 mg/dl Urine Glucose (UA) >=500 Urine Ketones Neg Urine Blood Sm Urine Nitrite Neg Urine Bilirubin Neg Urine Urobilinogen < 2.0 Ur Leukocyte Esterase Neg Urine WBC (Auto) < 1.0 Urine RBC (Auto) < 1.0 U Epithel Cells (Auto) 2.0 Urine Mucus Few Urine Opiates Screen Presumptive negative Urine Methadone Screen Presumptive negative Ur Barbiturates Screen Presumptive negative Ur Phencyclidine Scrn Presumptive negative Ur Amphetamines Screen Presumptive negative U Benzodiazepines Scrn Presumptive negative Urine Cocaine Screen Presumptive negative U Marijuana (THC) Screen Presumptive negative Drugs of Abuse Note Disclamer Assessment and Plan 1. hematemesis/hematochezia - Will order CBC for today to check H&H and stool guiac - no signs of active bleeding today, H&H previously stable - continue to hold Eliquis - Will change PPI to IV BID - scheduled for stress test tomorrow - will consider EGD and Colonoscopy if pt consents once cleared from cardiology
[2016-07-19] MEDS ORDERED: PROTONIX 80 MG in NACL 0.9% 100 ML IV SCH (12:00)
--- NOTE | 2016-07-19 12:36 | Consultation ---
<SERA DIAS - Last Filed: 07/19/16 12:32> History of Present Illness Consult date: 07/19/16 Consult reason: chest pain History of present illness: This is a 35yr old woman who presented with chest pain, shortness of breath and nausea vomiting. Patient reports a history of recurrent pulmonary embolism and is on eliquis for anticoagulation. She also reports a history of seizure disorder and hyperthyroidism. Her initial ECG shows a sinus tachycardia, no acute ischemic changes. 2 sets of cardiac enzymes are negative. Patient has been admitted and is planned for a stress test tomorrow per primary team. Past History Past Medical History: hyperthyroidism, pulmonary embolism, seizures Social history: full code. denies: smoking, alcohol abuse, prescription drug abuse, IV drug use Family history: no significant family history Medications and Allergies Allergies Allergy/AdvReac Type Severity Reaction Status Date / Time garlic Allergy Unknown Verified 06/27/16 10:59 ibuprofen [From Motrin] Allergy Unknown Verified 01/16/16 11:01 Penicillins Allergy Unknown Verified 01/16/16 11:01 Home Medications Medication Instructions Recorded Confirmed Last Taken Type Apixaban [Eliquis] 1 tab PO BID 02/17/16 07/19/16 1 Day Ago History Methimazole [Tapazole] 10 mg PO Q8H #21 tablet 04/26/16 07/19/16 1 Day Ago Rx Propranolol [Inderal] 40 mg PO Q12HR #14 tablet 04/26/16 07/19/16 2 Days Ago Rx levETIRAcetam [Keppra TAB] 500 mg PO BID #60 tablet 06/27/16 07/19/16 1 Day Ago Rx HYDROcodone/APAP 5-325 [[place] 1 each PO Q6HR PRN #8 tablet 06/29/16 07/19/16 1 Week Ago Rx 5/325] Promethazine [Phenergan TAB] 25 mg PO Q6HR PRN #10 tab 06/29/16 07/19/16 2 Days Ago Rx Quetiapine Fumarate [SEROquel XR] 300 mg PO QDAY 06/29/16 07/19/16 2 Days Ago History methylPREDNISolone [Medrol Dose 4 mg PO DAILY 06/29/16 07/19/16 2 Days Ago History Andrew] Active Meds: Active Medications Albuterol (Proventil) 2.5 mg IH Q4HRT PRN PRN Reason: Shortness Of Breath Last Admin: 07/19/16 07:47 Dose: 2.5 mg Aspirin (Baby Aspirin) 81 mg PO QDAY [facility] Pantoprazole Sodium 80 mg/ (Sodium Chloride) 100 mls @ 10 mls/hr IV DIRECT [facility] PRN Reason: 8 MG/HR Levetiracetam (Keppra) 500 mg PO BID [facility] Last Admin: 07/18/16 21:07 Dose: 500 mg Methimazole (Tapazole) 10 mg PO Q8HR [facility] Last Admin: 07/19/16 05:30 Dose: 10 mg Morphine Sulfate (Morphine) 2 mg IV Q4H PRN PRN Reason: Chest Pain Last Admin: 07/19/16 07:50 Dose: 2 mg Ondansetron HCl (Zofran) 4 mg IV Q8H PRN PRN Reason: N/V unrelieved by Reglan Propranolol HCl (Inderal) 40 mg PO Q12HR [facility] Last Admin: 07/18/16 21:06 Dose: 40 mg Quetiapine Fumarate (Seroquel) 100 mg PO BID [facility] Last Admin: 07/18/16 21:06 Dose: 100 mg Quetiapine Fumarate (Seroquel) 200 mg PO QHS [facility] Last Admin: 07/18/16 21:07 Dose: 200 mg Sodium Chloride (Sodium Chloride Flush Syringe 10 Ml) 10 ml IV PRN PRN PRN Reason: LINE FLUSH Physical Examination Vital Signs Temp Pulse Resp BP Pulse Ox 98.2 F 107 H 20 125/80 100 07/17/16 21:44 07/17/16 21:44 07/17/16 21:44 07/17/16 21:44 07/17/16 21:44 General appearance: no acute distress HEENT: Positive: PERRL Neck: Positive: trachea midline Cardiac: Positive: Reg Rate and Rhythm Results 07/17/16 21:57 07/17/16 21:57 Cardiac Enzymes 07/18/16 07/18/16 Range/Units 15:51 21:25 CK-MB (CK-2) < 1.0 < 1.0 (0.0-4.0) ng/mL Lipids 07/18/16 Range/Units 12:39 Triglycerides 68 (2-149) mg/dL Cholesterol 124 (50-199) mg/dL HDL Cholesterol 54 (40-59) mg/dL Cholesterol/HDL Ratio 2.29 % Assessment and Plan Chest pain, atypical negative CE x2 Hx of recurrent pulmonary embolism on eliquis as an outpatient Hx of Hyperthyroidism Hx of Seizure disorder Plan: Patient is for planned thallium stress test tomorrow. Agree with primary team. We will also get an echocardiogram for LVEF assessment. <ASHLEE BETHEA - Last Filed: 07/19/16 20:21> History of Present Illness History of present illness: Of note, the patient has also been admitted with complaints of hemoptysis. GI was present in the room at the time of my H&P. Patient has refused blood draw. Medications and Allergies Active Meds: Active Medications Albuterol (Proventil) 2.5 mg IH Q4HRT PRN PRN Reason: Shortness Of Breath Last Admin: 07/19/16 07:47 Dose: 2.5 mg Aspirin (Baby Aspirin) 81 mg PO QDAY [facility] Last Admin: 07/19/16 10:32 Dose: 81 mg Pantoprazole Sodium 80 mg/ (Sodium Chloride) 100 mls @ 10 mls/hr IV DIRECT [facility] PRN Reason: 8 MG/HR Levetiracetam (Keppra) 500 mg PO BID [facility] Last Admin: 07/19/16 10:33 Dose: 500 mg Methimazole (Tapazole) 10 mg PO Q8HR [facility] Last Admin: 07/19/16 14:22 Dose: 10 mg Morphine Sulfate (Morphine) 2 mg IV Q4H PRN PRN Reason: Chest Pain Last Admin: 07/19/16 16:21 Dose: 2 mg Ondansetron HCl (Zofran) 4 mg IV Q8H PRN PRN Reason: N/V unrelieved by Reglan Propranolol HCl (Inderal) 40 mg PO Q12HR [facility] Last Admin: 07/19/16 10:31 Dose: 40 mg Quetiapine Fumarate (Seroquel) 100 mg PO BID [facility] Last Admin: 07/19/16 10:33 Dose: 100 mg Quetiapine Fumarate (Seroquel) 200 mg PO QHS [facility] Last Admin: 07/18/16 21:07 Dose: 200 mg Sodium Chloride (Sodium Chloride Flush Syringe 10 Ml) 10 ml IV PRN PRN PRN Reason: LINE FLUSH Physical Examination Vital Signs Temp Pulse Resp BP Pulse Ox 98.2 F 107 H 20 125/80 100 07/17/16 21:44 07/17/16 21:44 07/17/16 21:44 07/17/16 21:44 07/17/16 21:44 HEENT: Positive: PERRL Results 07/19/16 17:20 07/17/16 21:57 Cardiac Enzymes 07/18/16 Range/Units 21:25 CK-MB (CK-2) < 1.0 (0.0-4.0) ng/mL CBC 07/19/16 Range/Units 17:20 WBC 12.4 H (4.5-11.0) K/mm3 RBC 5.19 H (3.65-5.03) M/mm3 Hgb 13.5 (10.1-14.3) gm/dl Hct 41.4 (30.3-42.9) % Plt Count 278 (140-440) K/mm3 Lymph # 3.6 (1.2-5.4) K/mm3 Cameron # 1.5 H (0.0-0.8) K/mm3 Eos # 0.1 (0.0-0.4) K/mm3 Baso # 0.1 (0.0-0.1) K/mm3 Assessment and Plan Patient has a history of recurrent PE, for which the patient should be on life long anticoagulation. However, patient is currently complaining of hemoptysis. Hold anticoagulation at this time until the workup is complete. Of note, patient is currently refusing GI workup.
--- NOTE | 2016-07-19 14:50 | Progress Note ---
Assessment and Plan Assessment and plan: Hematemesis - Patient is on IV pantoprazole - Hemoglobin and hematocrit is stable - GI consult placed appreciated Chest pain - EKG sinus tach, 2 sets of cardiac enzymes are negative - Stress test tomorrow morning - Echo is normal - Cardiology consult Hyperthyroidism - TSH is very low - On methimazole and propranolol - a dose of Solu-Medrol given Seizure - Restart Keppra History of PE - I held eliqis because of hematemesis - Ventilation/perfusion scan is negative Paranoia - Psych consult Will get her record from [facility]. DVT prophylaxis - SCD, no chemical prophylaxis because of hematemesis Disposition - will keep inpatient until she finish her work up History Interval history: Patient was seen and evaluated this morning, patient's chest pain is getting better. Patient said she was communicating with Drakemariano Alondra and others. Claimed [place]. Hospitalist Physical - Physical exam Narrative exam: Not in cardiopulmonary distress. The patient appeared emaciated. Vital signs as documented. Head exam is unremarkable. No scleral icterus . Neck is without jugular venous distension, thyromegaly, or carotid bruits. Lungs are clear to auscultation. Cardiac exam reveals tachycardia and murmur. Left-sided Chest wall tenderness. Abdominal exam reveals gastric tenderness. Extremities trace edema. AIRCRAFT DESIGNER: Alert and oriented 3. No focal weakness. - Constitutional Vitals: Temp Pulse Resp BP Pulse Ox 99.2 F 90 18 119/58 96 07/19/16 13:16 07/19/16 13:16 07/19/16 13:16 07/19/16 13:16 07/19/16 13:16 General appearance: Present: no acute distress Results - Labs CBC & Chem 7: 07/17/16 21:57 07/17/16 21:57 Labs: Laboratory Last Values WBC 9.1 K/mm3 (4.5-11.0) 07/17/16 21:57 RBC 5.39 M/mm3 (3.65-5.03) H 07/17/16 21:57 Hgb 14.0 gm/dl (10.1-14.3) 07/17/16 21:57 Hct 42.9 % (30.3-42.9) 07/17/16 21:57 MCV 80 fl (79-97) 07/17/16 21:57 MCH 26 pg (28-32) L 07/17/16 21:57 MCHC 33 % (30-34) 07/17/16 21:57 RDW 13.7 % (13.2-15.2) 07/17/16 21:57 Plt Count 287 K/mm3 (140-440) 07/17/16 21:57 Lymph % (Auto) 38.4 % (13.4-35.0) H 07/17/16 21:57 [place] % (Auto) 9.8 % (0.0-7.3) H 07/17/16 21:57 Eos % (Auto) 0.8 % (0.0-4.3) 07/17/16 21:57 Baso % (Auto) 0.5 % (0.0-1.8) 07/17/16 21:57 Lymph # 3.5 K/mm3 (1.2-5.4) 07/17/16 21:57 [place] # 0.9 K/mm3 (0.0-0.8) H 07/17/16 21:57 Eos # 0.1 K/mm3 (0.0-0.4) 07/17/16 21:57 Baso # 0.0 K/mm3 (0.0-0.1) 07/17/16 21:57 Seg Neutrophils % 50.5 % (40.0-70.0) 07/17/16 21:57 Seg Neutrophils # 4.6 K/mm3 (1.8-7.7) 07/17/16 21:57 D-Dimer 441.60 ng/mlDDU (0-234) H 07/18/16 06:39 Sodium 138 mmol/L (137-145) 07/17/16 21:57 Potassium 4.2 mmol/L (3.6-5.0) 07/17/16 21:57 Chloride 102.3 mmol/L (98-107) 07/17/16 21:57 Carbon Dioxide 20 mmol/L (22-30) L 07/17/16 21:57 Anion Gap 20 mmol/L 07/17/16 21:57 BUN 18 mg/dL (7-17) H 07/17/16 21:57 Creatinine 0.4 mg/dL (0.7-1.2) L 07/17/16 21:57 Estimated GFR > 60 ml/min 05/28/17 21:57 BUN/Creatinine Ratio 45.00 % 07/17/16 21:57 Glucose 92 mg/dL (65-100) 07/17/16 21:57 Calcium 9.4 mg/dL (8.4-10.2) 07/17/16 21:57 Total Creatine Kinase 58 units/L (30-135) 07/18/16 21:25 CK-MB (CK-2) < 1.0 ng/mL (0.0-4.0) 07/18/16 21:25 CK-MB (CK-2) Rel Index 1.7 (0-4) 07/18/16 21:25 Troponin T < 0.010 ng/mL (0.00-0.029) 07/18/16 21:25 Triglycerides 68 mg/dL (2-149) 07/18/16 12:39 Cholesterol 124 mg/dL (50-199) 07/18/16 12:39 LDL Cholesterol Direct 57 mg/dL (50-130) 07/18/16 12:39 HDL Cholesterol 54 mg/dL (40-59) 07/18/16 12:39 Cholesterol/HDL Ratio 2.29 % 07/18/16 12:39 TSH < 0.005 mlU/mL (0.270-4.200) L 07/17/16 21:57 Free T4 4.68 ng/dL (0.76-1.46) H 07/17/16 21:57 Urine Color Straw (Yellow) 07/18/16 Unknown Urine Turbidity Clear (Clear) 07/18/16 Unknown Urine pH 6.0 (5.0-7.0) 07/18/16 Unknown Ur Specific [place] 1.007 (1.003-1.030) 07/18/16 Unknown Urine Protein <15 mg/dl mg/dL (Negative) 07/18/16 Unknown Urine Glucose (UA) >=500 mg/dL (Negative) 07/18/16 Unknown Urine Ketones Neg mg/dL (Negative) 07/18/16 Unknown Urine Blood Sm (Negative) 07/18/16 Unknown Urine Nitrite Neg (Negative) 07/18/16 Unknown Urine Bilirubin Neg (Negative) 07/18/16 Unknown Urine Urobilinogen < 2.0 mg/dL (<2.0) 07/18/16 Unknown Ur Leukocyte Esterase Neg (Negative) 07/18/16 Unknown Urine WBC (Auto) < 1.0 /HPF (0.0-6.0) 07/18/16 Unknown Urine RBC (Auto) < 1.0 /HPF (0.0-6.0) 07/18/16 Unknown U Epithel Cells (Auto) 2.0 /HPF (0-13.0) 07/18/16 Unknown Urine Mucus Few /HPF 07/18/16 Unknown Urine Opiates Screen Presumptive negative 07/18/16 Unknown Urine Methadone Screen Presumptive negative 07/18/16 Unknown Ur Barbiturates Screen Presumptive negative 07/18/16 Unknown Ur Phencyclidine Scrn Presumptive negative 07/18/16 Unknown Ur Amphetamines Screen Presumptive negative 07/18/16 Unknown U Benzodiazepines Scrn Presumptive negative 07/18/16 Unknown Urine Cocaine Screen Presumptive negative 07/18/16 Unknown U Marijuana (THC) Screen Presumptive negative 07/18/16 Unknown Drugs of Abuse Note Disclamer 07/18/16 Unknown
[2016-07-19 17:45] LABS: Basophils % (Auto) 0.6 % (0.0-1.8); Eosinophils % (Auto) 0.6 % (0.0-4.3); Hematocrit 41.4 % (30.3-42.9); Hemoglobin 13.5 gm/dl (10.1-14.3); Mean Corpuscular HGB Conc 33 % (30-34); Mean Corpuscular Hemoglobin 26 pg (28-32); Mean Corpuscular Volume 80 fl (79-97); Platelet Count 278 K/mm3 (140-440); Red Blood Count 5.19 M/mm3 (3.65-5.03); White Blood Count 12.4 K/mm3 (4.5-11.0)
[2016-07-20] MEDS: MORPHINE IV PRN ×3 (00:48→09:18)
[2016-07-20] MEDS: TAPAZOLE PO SCH ×3 (04:59→22:25)
[2016-07-20] MEDS: PROTONIX 80 MG in NACL 0.9% 100 ML IV SCH (08:19)
[2016-07-20] MEDS: INDERAL PO SCH ×2 (09:09→22:26)
[2016-07-20] MEDS ORDERED: LEXISCAN IV ONE ×2 (10:13→11:40)
--- NOTE | 2016-07-20 12:40 | Progress Note ---
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 Low probability VQ scan this admission Hemoptysis Hypotension Hyperthryroidism Seizure disorder Recommendations: IV hydration No further cardiac work-up is needed Subjective Date of service: 07/20/16 Principal diagnosis: Chest Pain Interval history: Lexiscan done - no complications Objective Vital Signs Temp Pulse Pulse Resp BP BP Pulse Ox 07/20/16 10:28 93 H 88/51 07/20/16 10:27 93 H 96/54 07/20/16 10:26 97 H 87/46 07/20/16 10:25 107 H 98/45 07/20/16 10:24 119 H 97/53 07/20/16 10:22 87 91/51 07/20/16 07:18 99.7 F H 103 H 20 101/63 97 07/20/16 05:42 97.6 F 76 20 110/68 94 07/20/16 05:00 84 07/20/16 00:55 99 F 89 20 105/68 98 07/19/16 22:35 98 07/19/16 22:15 94 H 118/58 07/19/16 21:00 93 H 07/19/16 20:37 20 07/19/16 20:07 98.2 F 94 H 18 118/58 99 07/19/16 18:21 97.7 F 89 16 111/55 100 07/19/16 13:16 99.2 F 90 18 119/58 96 - Physical Examination HEENT: Positive: PERRL Neck: Positive: trachea midline Cardiac: Positive: Reg Rate and Rhythm Lungs: Positive: Normal Exam - Labs and Meds CBC 07/19/16 Range/Units 17:20 WBC 12.4 H (4.5-11.0) K/mm3 RBC 5.19 H (3.65-5.03) M/mm3 Hgb 13.5 (10.1-14.3) gm/dl Hct 41.4 (30.3-42.9) % Plt Count 278 (140-440) K/mm3 Lymph # 3.6 (1.2-5.4) K/mm3 [place] # 1.5 H (0.0-0.8) K/mm3 Eos # 0.1 (0.0-0.4) K/mm3 Baso # 0.1 (0.0-0.1) K/mm3
--- NOTE | 2016-07-20 12:47 | Gastroenterology Progress Note ---
Assessment and Plan 1. hematemesis/hematochezia - No further vomiting or BM since admission - no signs of active bleeding today, follow up H/H today. - continue to hold Eliquis>> as per Cards recommendations - Will change PPI to PO - S/P stress test, further recommendations pending Stress result 2.Hx of PE on OAC as outpatient -Eliquis currently on hold - Perfusion scan with low prob of PE. Subjective Date of service: 07/20/16 Principal diagnosis: Chest Pain Interval history: S/P Stress test, has complaints of CP and lower abdominal pain. Objective - Constitutional Vitals: Temp Pulse Resp BP Pulse Ox 99.7 F H 93 H 20 88/51 97 07/20/16 07:18 07/20/16 10:28 07/20/16 07:18 07/20/16 10:28 07/20/16 07:18 General appearance: no acute distress - EENT Eyes: EOM intact ENT: hearing intact - Neck Neck: supple - Cardiovascular Rhythm: regular Heart Sounds: Present: S1 & S2 - Gastrointestinal General gastrointestinal: Present: soft, tender (TTP Left/right sides.), normal bowel sounds - Integumentary Integumentary: Present: warm, dry - Labs CBC & Chem 7: 07/19/16 17:20 07/17/16 21:57 Labs: Laboratory Results - last 24 hr 07/19/16 07/20/16 17:20 06:48 WBC 12.4 H RBC 5.19 H Hgb 13.5 Hct 41.4 MCV 80 MCH 26 L MCHC 33 RDW 14.0 Plt Count 278 Lymph % (Auto) 28.8 [place] % (Auto) 11.7 H Eos % (Auto) 0.6 Baso % (Auto) 0.6 Lymph # 3.6 [place] # 1.5 H Eos # 0.1 Baso # 0.1 Seg Neutrophils % 58.3 Seg Neutrophils # 7.2 HCG, Qual Negative
[2016-07-20] MEDS: KEPPRA PO SCH ×2 (13:06→22:26)
[2016-07-20] MEDS: BABY ASPIRIN PO SCH (13:06)
[2016-07-20] MEDS: TYLENOL PO PRN (14:45)
--- NOTE | 2016-07-20 15:14 | Consultation ---
History of Present Illness - Reason for Consult Consult date: 07/20/16 Reason for consult: psychiatric evaluation - Chief Complaint Chief complaint: "Why are you here?" 35 year old black female seen for psychiatric evaluation by the CAR REPAIRER and MD separately. There are concerns with possible delusions and paranoia. She answered questions about her physical health but gave vague answers about her mental health history. She was guarded and irritable. Answers in conversation were appropriate and logical. With additional questioning about mental health history, she stated she was in pain and was done answering questions. The reason for the consult was discussed. She denies suicidal or homicidal ideation. She did not express delusional thought content. Her presentation from the previous evening with the mental health solar resource assessor is not consistent with the current one. Delusions would be consistent and thematic. She is able to attend to her ADLs and is aware of her health conditions and the necessary treatment. Medications and Allergies Allergies Allergy/AdvReac Type Severity Reaction Status Date / Time garlic Allergy Unknown Verified 06/27/16 10:59 ibuprofen [From Motrin] Allergy Unknown Verified 01/16/16 11:01 Penicillins Allergy Unknown Verified 01/16/16 11:01 Home Medications Medication Instructions Recorded Confirmed Last Taken Type Apixaban [Eliquis] 1 tab PO BID 02/17/16 07/19/16 1 Day Ago History Methimazole [Tapazole] 10 mg PO Q8H #21 tablet 04/26/16 07/19/16 1 Day Ago Rx Propranolol [Inderal] 40 mg PO Q12HR #14 tablet 04/26/16 07/19/16 2 Days Ago Rx levETIRAcetam [Keppra TAB] 500 mg PO BID #60 tablet 06/27/16 07/19/16 1 Day Ago Rx HYDROcodone/APAP 5-325 [[place] 1 each PO Q6HR PRN #8 tablet 06/29/16 07/19/16 1 Week Ago Rx 5/325] Promethazine [Phenergan TAB] 25 mg PO Q6HR PRN #10 tab 06/29/16 07/19/16 2 Days Ago Rx Quetiapine Fumarate [SEROquel XR] 300 mg PO QDAY 06/29/16 07/19/16 2 Days Ago History methylPREDNISolone [Medrol Dose 4 mg PO DAILY 06/29/16 07/19/16 2 Days Ago History Andrew] Active Meds: Active Medications Acetaminophen (Tylenol) 650 mg PO Q4H PRN PRN Reason: Pain, Mild (1-3) Last Admin: 07/20/16 14:45 Dose: 650 mg Albuterol (Proventil) 2.5 mg IH Q4HRT PRN PRN Reason: Shortness Of Breath Last Admin: 07/19/16 07:47 Dose: 2.5 mg Aspirin (Baby Aspirin) 81 mg PO QDAY [facility] Last Admin: 07/20/16 13:06 Dose: 81 mg Levetiracetam (Keppra) 500 mg PO BID [facility] Last Admin: 07/20/16 13:06 Dose: 500 mg Methimazole (Tapazole) 10 mg PO Q8HR [facility] Last Admin: 07/20/16 13:06 Dose: 10 mg Ondansetron HCl (Zofran) 4 mg IV Q8H PRN PRN Reason: N/V unrelieved by Reglan Pantoprazole Sodium (Protonix) 40 mg IV BID [facility] Propranolol HCl (Inderal) 40 mg PO Q12HR [facility] Last Admin: 07/19/16 22:15 Dose: 40 mg Quetiapine Fumarate (Seroquel) 100 mg PO BID [facility] Last Admin: 07/20/16 13:06 Dose: 100 mg Quetiapine Fumarate (Seroquel) 200 mg PO QHS [facility] Last Admin: 07/19/16 22:15 Dose: 200 mg Sodium Chloride (Sodium Chloride Flush Syringe 10 Ml) 10 ml IV PRN PRN PRN Reason: LINE FLUSH Past psychiatric history - Past Medical History Past Medical History: other (pulonary embolism, pericarditis, hematemesis) - past Psychiatric treatment and history psychiatric treatment history: reports a history of multiple mental health diagnoses and a 10 year history of selling drugs - Social History Social history: other (reports a stable place to live) Mental Status Exam - Vital signs Last Vital Signs Temp 99.7 F H 07/20/16 07:18 Pulse 93 H 07/20/16 10:28 Resp 20 07/20/16 07:18 BP 88/51 07/20/16 10:28 Pulse Ox 97 07/20/16 07:18 - Exam Orientation: time, place, person Affect: other (irritable) Mood: other (irritable) Thought content: other (no SI, no HI) Thought Process: Intact Perceptions: none Speech: normal rate and pattern Concentration: focused Motor activity: normal Level of consciousness: alert Memory: Intact Sleep Symptoms: None Interaction: cooperative Results Result Diagrams: 07/19/16 17:20 07/17/16 21:57 Abnormal lab results 07/19/16 Range/Units 17:20 WBC 12.4 H (4.5-11.0) K/mm3 RBC 5.19 H (3.65-5.03) M/mm3 MCH 26 L (28-32) pg [place] % (Auto) 11.7 H (0.0-7.3) % [place] # 1.5 H (0.0-0.8) K/mm3 All other labs normal. Assessment and Plan Assessment and plan: Impression: Impression is from the CAR REPAIRER interview and MD interview. Her presentation from the previous evening with the mental health solar resource assessor is not consistent with the current one. Delusions would be consistent and thematic. She is able to attend to her ADLs and is aware of her health conditions. Her decision to withhold records or information would be considered volitional and not related to a mental illness. Recommendation: Continue to provide medical treatment as the patient allows. She would benefit from a direct approach with explanations To further determine consistency, recommend reevaluation tomorrow. 1013 is not indicated.
--- NOTE | 2016-07-20 16:22 | Progress Note ---
Assessment and Plan Assessment and plan: Hematemesis - Patient is on pantoprazole - Hemoglobin and hematocrit is stable - GI consult placed appreciated - Not clear if they are going to do EGD in the morning Chest pain - EKG sinus tach, 2 sets of cardiac enzymes are negative - Stress test Negative for MPI - Echo is normal - Cardiology consult appreciated Hyperthyroidism - TSH is very low - On methimazole and propranolol Seizure - Continue Keppra History of PE - I held eliqis because of hematemesis - Ventilation/perfusion scan is negative delusion - Psych consult - patient is on 1013 She refused to get her record from [facility] DVT prophylaxis - SCD, no chemical prophylaxis because of hematemesis Disposition - If GI is not doing EGD patient can be transferred to inpatient psychiatry facility. History Interval history: Patient was seen and evaluated this morning, patient's chest pain is getting better. Patient has delusion. Hospitalist Physical - Physical exam Narrative exam: Not in cardiopulmonary distress. The patient appeared emaciated. Vital signs as documented. Head exam is unremarkable. No scleral icterus . Neck is without jugular venous distension, thyromegaly, or carotid bruits. Lungs are clear to auscultation. Cardiac exam reveals tachycardia and murmur. Left-sided Chest wall tenderness. Abdominal exam reveals gastric tenderness. Extremities trace edema. CONTACT LENS FITTER: Alert and oriented 3. No focal weakness. - Constitutional Vitals: Temp Pulse Resp BP Pulse Ox 99.8 F H 97 H 18 109/54 97 07/20/16 15:25 07/20/16 15:25 07/20/16 15:25 07/20/16 15:25 07/20/16 15:25 General appearance: Present: no acute distress Results - Labs CBC & Chem 7: 07/19/16 17:20 07/17/16 21:57 Labs: Laboratory Last Values WBC 12.4 K/mm3 (4.5-11.0) H 07/19/16 17:20 RBC 5.19 M/mm3 (3.65-5.03) H 07/19/16 17:20 Hgb 13.5 gm/dl (10.1-14.3) 07/19/16 17:20 Hct 41.4 % (30.3-42.9) 07/19/16 17:20 MCV 80 fl (79-97) 07/19/16 17:20 MCH 26 pg (28-32) L 07/19/16 17:20 MCHC 33 % (30-34) 07/19/16 17:20 RDW 14.0 % (13.2-15.2) 07/19/16 17:20 Plt Count 278 K/mm3 (140-440) 07/19/16 17:20 Lymph % (Auto) 28.8 % (13.4-35.0) 07/19/16 17:20 [place] % (Auto) 11.7 % (0.0-7.3) H 07/19/16 17:20 Eos % (Auto) 0.6 % (0.0-4.3) 07/19/16 17:20 Baso % (Auto) 0.6 % (0.0-1.8) 07/19/16 17:20 Lymph # 3.6 K/mm3 (1.2-5.4) 07/19/16 17:20 [place] # 1.5 K/mm3 (0.0-0.8) H 07/19/16 17:20 Eos # 0.1 K/mm3 (0.0-0.4) 07/19/16 17:20 Baso # 0.1 K/mm3 (0.0-0.1) 07/19/16 17:20 Seg Neutrophils % 58.3 % (40.0-70.0) 07/19/16 17:20 Seg Neutrophils # 7.2 K/mm3 (1.8-7.7) 07/19/16 17:20 D-Dimer 441.60 ng/mlDDU (0-234) H 07/18/16 06:39 Sodium 138 mmol/L (137-145) 07/17/16 21:57 Potassium 4.2 mmol/L (3.6-5.0) 07/17/16 21:57 Chloride 102.3 mmol/L (98-107) 07/17/16 21:57 Carbon Dioxide 20 mmol/L (22-30) L 07/17/16 21:57 Anion Gap 20 mmol/L 07/17/16 21:57 BUN 18 mg/dL (7-17) H 07/17/16 21:57 Creatinine 0.4 mg/dL (0.7-1.2) L 07/17/16 21:57 Estimated GFR > 60 ml/min 07/17/16 21:57 BUN/Creatinine Ratio 45.00 % 07/17/16 21:57 Glucose 92 mg/dL (65-100) 07/17/16 21:57 Calcium 9.4 mg/dL (8.4-10.2) 07/17/16 21:57 Total Creatine Kinase 58 units/L (30-135) 07/18/16 21:25 CK-MB (CK-2) < 1.0 ng/mL (0.0-4.0) 07/18/16 21:25 CK-MB (CK-2) Rel Index 1.7 (0-4) 07/18/16 21:25 Troponin T < 0.010 ng/mL (0.00-0.029) 07/18/16 21:25 Triglycerides 68 mg/dL (2-149) 07/18/16 12:39 Cholesterol 124 mg/dL (50-199) 07/18/16 12:39 LDL Cholesterol Direct 57 mg/dL (50-130) 07/18/16 12:39 HDL Cholesterol 54 mg/dL (40-59) 07/18/16 12:39 Cholesterol/HDL Ratio 2.29 % 07/18/16 12:39 TSH < 0.005 mlU/mL (0.270-4.200) L 07/17/16 21:57 Free T4 4.68 ng/dL (0.76-1.46) H 07/17/16 21:57 HCG, Qual Negative (Negative) 07/20/16 06:48 Urine Color Straw (Yellow) 07/18/16 Unknown Urine Turbidity Clear (Clear) 07/18/16 Unknown Urine pH 6.0 (5.0-7.0) 07/18/16 Unknown Ur Specific [place] 1.007 (1.003-1.030) 07/18/16 Unknown Urine Protein <15 mg/dl mg/dL (Negative) 07/18/16 Unknown Urine Glucose (UA) >=500 mg/dL (Negative) 07/18/16 Unknown Urine Ketones Neg mg/dL (Negative) 07/18/16 Unknown Urine Blood Sm (Negative) 07/18/16 Unknown Urine Nitrite Neg (Negative) 07/18/16 Unknown Urine Bilirubin Neg (Negative) 07/18/16 Unknown Urine Urobilinogen < 2.0 mg/dL (<2.0) 07/18/16 Unknown Ur Leukocyte Esterase Neg (Negative) 07/18/16 Unknown Urine WBC (Auto) < 1.0 /HPF (0.0-6.0) 07/18/16 Unknown Urine RBC (Auto) < 1.0 /HPF (0.0-6.0) 07/18/16 Unknown U Epithel Cells (Auto) 2.0 /HPF (0-13.0) 07/18/16 Unknown Urine Mucus Few /HPF 07/18/16 Unknown Urine Opiates Screen Presumptive negative 07/18/16 Unknown Urine Methadone Screen Presumptive negative 07/18/16 Unknown Ur Barbiturates Screen Presumptive negative 07/18/16 Unknown Ur Phencyclidine Scrn Presumptive negative 07/18/16 Unknown Ur Amphetamines Screen Presumptive negative 07/18/16 Unknown U Benzodiazepines Scrn Presumptive negative 07/18/16 Unknown Urine Cocaine Screen Presumptive negative 07/18/16 Unknown U Marijuana (THC) Screen Presumptive negative 07/18/16 Unknown Drugs of Abuse Note Disclamer 07/18/16 Unknown
[2016-07-20] MEDS ORDERED: PROTONIX IV SCH (22:00)
--- NOTE | 2016-07-21 02:16 | Treadmill Report ---
INDICATION: Chest pain. ORDERING PHYSICIAN: Dr. Santiago. FINDINGS: There is no scintigraphic evidence of myocardial ischemia. There is evidence of a small fixed apical septal wall defect. The left ventricular ejection fraction is measured at 45% with normal wall motion and wall thickening. CONCLUSION: 1. No scintigraphic evidence of myocardial ischemia. 2. Left ventricular ejection fraction measured at 45% with normal wall motion. This is a low risk myocardial perfusion scan associated with 1 year cardiovascular mortality of less than 1%. JOB# [id number] ADRIANO/LEONARDA
[2016-07-21 06:09] LABS: Basophils % (Auto) 0.4 % (0.0-1.8); Eosinophils % (Auto) 1.2 % (0.0-4.3); Hematocrit 39.3 % (30.3-42.9); Hemoglobin 12.5 gm/dl (10.1-14.3); Mean Corpuscular HGB Conc 32 % (30-34); Mean Corpuscular Volume 82 fl (79-97); Red Blood Count 4.81 M/mm3 (3.65-5.03); Red Cell Distribution Width 13.8 % (13.2-15.2); White Blood Count 7.8 K/mm3 (4.5-11.0)
[2016-07-21 06:19] LABS: Mean Corpuscular Hemoglobin 26 pg (28-32)
[2016-07-21 06:23] LABS: Blood Urea Nitrogen 13 mg/dL (7-17); Calcium 8.8 mg/dL (8.4-10.2); Carbon Dioxide 23 mmol/L (22-30); Chloride 100.3 mmol/L (98-107); Glucose 88 mg/dL (65-100); Sodium 136 mmol/L (137-145)
[2016-07-21] MEDS: TAPAZOLE PO SCH (06:25)
[2016-07-21 06:34] LABS: Anion Gap 18 mmol/L; Potassium 4.9 mmol/L (3.6-5.0)
[2016-07-21 07:54] LABS: Platelet Count 249 K/mm3 (140-440)
[2016-07-21] MEDS: TYLENOL PO PRN (09:15)
[2016-07-21] MEDS: BABY ASPIRIN PO SCH (09:15)
[2016-07-21] MEDS: KEPPRA PO SCH (09:15)
[2016-07-21] MEDS: INDERAL PO SCH (09:16)
[2016-07-21 09:17] VITALS: BP 116/68
--- NOTE | 2016-07-21 09:19 | Progress Note ---
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 Conservative cardiac management. Subjective Date of service: 07/21/16 Principal diagnosis: Chest Pain Interval history: No cardiac complaints. Objective Vital Signs Temp Pulse Pulse Resp BP BP Pulse Ox 07/21/16 05:15 99 F 90 18 89/50 07/21/16 04:00 89 07/21/16 02:25 98.8 F 89 18 97/57 07/20/16 22:26 92 H 105/57 07/20/16 20:41 92 H 07/20/16 20:30 98.4 F 113 H 18 105/57 07/20/16 16:41 100 07/20/16 15:25 99.8 F H 97 H 18 109/54 97 07/20/16 15:00 100 07/20/16 12:40 56 L 07/20/16 10:28 93 H 88/51 07/20/16 10:27 93 H 96/54 07/20/16 10:26 97 H 87/46 07/20/16 10:25 107 H 98/45 07/20/16 10:24 119 H 97/53 07/20/16 10:22 87 91/51 - Physical Examination General: No Apparent Distress HEENT: Positive: PERRL Neck: Positive: trachea midline Cardiac: Positive: Reg Rate and Rhythm - Labs and Meds CBC 07/21/16 Range/Units 04:45 WBC 7.8 (4.5-11.0) K/mm3 RBC 4.81 (3.65-5.03) M/mm3 Hgb 12.5 (10.1-14.3) gm/dl Hct 39.3 (30.3-42.9) % Plt Count 249 (140-440) K/mm3 Lymph # 3.6 (1.2-5.4) K/mm3 [place] # 1.1 H (0.0-0.8) K/mm3 Eos # 0.1 (0.0-0.4) K/mm3 Baso # 0.0 (0.0-0.1) K/mm3 Comprehensive Metabolic Panel 07/21/16 Range/Units 04:45 Sodium 136 L (137-145) mmol/L Potassium 4.9 (3.6-5.0) mmol/L Chloride 100.3 (98-107) mmol/L Carbon Dioxide 23 (22-30) mmol/L BUN 13 (7-17) mg/dL Creatinine 0.4 L (0.7-1.2) mg/dL Glucose 88 (65-100) mg/dL Calcium 8.8 (8.4-10.2) mg/dL
[2016-07-21] MEDS ORDERED: PROTONIX PO SCH (10:00)
--- NOTE | 2016-07-21 10:15 | Discharge Summary ---
Providers - Providers Date of Admission: 07/18/16 12:37 Date of discharge: 07/21/16 Attending physician: NURYS SANTA 07/19/16 14:39 Consult to Mental Health [CONS] Routine Reason For Exam: [address] [address] consult to:: Psychiatry Notified:: Gena KIRK Phone number called:: [phone] Was contact made?: Yes If yes, spoke with:: [facility] Time called:: 16:45 Comment:: Patient said her [place] [facility] [place] [facility] Primary care physician: [employer] Hospitalization Condition: Stable Hospital course: Patient is a 35-year-old woman with a history of bipolar disorder, seizure disorder, hyperthyroidism and PE who presented with left-sided chest pain and hematemesis. 07/18/2016 VQ scan showed low probability of PE. 07/18/2016 2-D echo showed left ventricular hypertrophy, EF 50-55 percent with diastolic dysfunction, 07/20/2016 stress test showed no acute ischemic, calculated EF at 45%. TSH was found to be less than 0.005 and free T4 was 4.68. She has a history of hyperthyroidism and admitts to not taking her medications. She is in transitioning to a new physician and request her home medication be renewed including Seroquel for bipolar disorder. Patient still has difficulty swallowing but she refused EGD. Initially she was placed on 1013 but rescinded by mental health. She denies any suicidal or homicidal ideation. -Chest pain most likely GERD related -Hyperthyroidism -Hematemesis, patient refuses EGD -History of PE, not a good candidate for anticoagulation at this time due to reports of hematemesis, her noncompliance and low probability on VQ scan -Suspected asthma, patient request nebulizer treatment for home which really helped with the chest discomfort -Seizure disorder, noncompliant with taking Keppra patient, she request a prescription for this Disposition: DISCHARGED TO HOME OR SELFCARE Time spent for discharge: 33 minutes Core Measure Documentation - Palliative Care Palliative Care/ Comfort Measures: Not Applicable - Core Measures Any of the following diagnoses?: none - VTE Discharge Requirements Deep Vein Thrombosis/Pulmonary Embolism Present on Admission: No Has pt received <5 days of overlap therapy or INR<2.0: No Anticoagulant overlap therapy prescribed at discharge: No Contraindication No Overlap Therapy order at [facility]: Not Indicated Exam - Physical Exam Narrative exam: GEN: WDWN, NAD, AWAKE, ALERT, ORIENTATED 3 HEENT: NCAT, PERRL, EOMI, OP CLEAR NECK: SUPPLE, NO THYROMEGALY, NO JVD, NO LAD CVS: RRR, NORMAL S1S2 LUNGS/CHEST: CTA B, NORMAL CHEST EXPANSION B, GOOD AIR ENTRY B ABD: SOFT NTND, GBS, NO REBOUND OR GUARDING EXT/SKIN: NO SIGNIFICANT EDEMA OR RASH MSK: FROM X 4 EXTREMITIES NEURO: CN 2-12 GROSSLY INTACT, NO new FOCAL DEFICITS PSY: CALM, poor insight and judgment - Constitutional Vitals: Temp Pulse Resp BP Pulse Ox 97.8 F 83 18 116/68 100 07/21/16 09:39 07/21/16 09:39 07/21/16 09:39 07/21/16 09:39 07/21/16 09:39 Plan Activity: no driving until cleared by PCP, other (no strenous activites until cleared by PCP. ) Diet: regular Durable Medical Equipment Needed Upon Discharge: Nebulizer Follow up with: PRIMARY CARE, [Primary Care Provider] - 3-5 Days Prescriptions: ALBUTEROL NEB's [Proventil 0.083% NEBS] 2.5 mg IH Q4HRT PRN #30 nebu PRN Reason: Shortness Of Breath levETIRAcetam [Keppra TAB] 500 mg PO BID #60 tablet Methimazole [Tapazole] 10 mg PO Q8HR #90 tablet Pantoprazole [Protonix TAB] 40 mg PO BID #30 tablet Propranolol [Inderal] 40 mg PO Q12HR #14 tablet Quetiapine Fumarate [SEROquel XR] 300 mg PO QDAY #30 tab.er.24h
--- NOTE | 2016-07-21 14:22 | Gastroenterology Progress Note ---
Assessment and Plan GI: - no problems overnight - ok to d/c from GI standpoint - call if needed Subjective Date of service: 07/21/16 Principal diagnosis: Chest Pain Interval history: - no problems overnight Objective - Constitutional Vitals: Temp Pulse Resp BP Pulse Ox 97.8 F 83 18 116/68 100 07/21/16 09:39 07/21/16 09:39 07/21/16 09:39 07/21/16 09:39 07/21/16 09:39 General appearance: no acute distress - Respiratory Respiratory: bilateral: CTA - Cardiovascular Rhythm: regular Heart Sounds: Present: S1 & S2 - Gastrointestinal General gastrointestinal: Present: soft, non-tender - Labs CBC & Chem 7: 07/21/16 04:45 07/21/16 04:45 Labs: Laboratory Results - last 24 hr 07/21/16 07/21/16 04:45 04:45 WBC 7.8 RBC 4.81 Hgb 12.5 Hct 39.3 MCV 82 MCH 26 L MCHC 32 RDW 13.8 Plt Count 249 Lymph % (Auto) 46.6 H [place] % (Auto) 13.8 H Eos % (Auto) 1.2 Baso % (Auto) 0.4 Lymph # 3.6 [place] # 1.1 H Eos # 0.1 Baso # 0.0 Seg Neutrophils % 38.0 L Seg Neutrophils # 3.0 Sodium 136 L Potassium 4.9 Chloride 100.3 Carbon Dioxide 23 Anion Gap 18 BUN 13 Creatinine 0.4 L Estimated GFR > 60 BUN/Creatinine Ratio 32.50 Glucose 88 Calcium 8.8
== END 2016-07-21 11:58 | disposition home or self-care (01) | DRG 392 ==
LOC: ED 21:19 → 4A 07-18 12:37
PROVIDERS: ADMIT Internal Medicine; ATTEND Internal Medicine
DX: K21.9 Gastro-esophageal reflux disease without esophagitis (principal); K92.0 Hematemesis; F41.9 Anxiety disorder, unspecified; E05.00 Thyrotoxicosis with diffuse goiter without thyrotoxic crisis or storm; F12.90 Cannabis use, unspecified, uncomplicated; F22 Delusional disorders; R06.00 Dyspnea, unspecified; G40.909 Epilepsy, unspecified, not intractable, without status epilepticus; I95.9 Hypotension, unspecified; F31.9 Bipolar disorder, unspecified; J45.909 Unspecified asthma, uncomplicated; Z53.20 Procedure and treatment not carried out because of patient's decision for unspecified reasons; Z88.0 Allergy status to penicillin; Z88.1 Allergy status to other antibiotic agents; Z91.018 Allergy to other foods; Z86.711 Personal history of pulmonary embolism; Z91.19 Patient's noncompliance with other medical treatment and regimen
CPT/HCPCS: 36415; 71010; 78452; 78582; 80048; 80061; 80307; 81001; 82550; 82553; 84439; 84443; 84484; 84703; 85025; 85379; 93005; 93010; 93017; 93306; 94640; 94760; 96374; 96375; A9502; A9540; A9558; C9113; J1953; J2270; J2405; J2785; J2920

== ENCOUNTER 2016-08-04 08:53 | Emergency (ER) | payer MEDICAID ==
[2016-08-04 09:11] VITALS: BP 117/78
[2016-08-04] MEDS ORDERED: NACL 0.9% 1000 ML 1,000 ML IV ONE (09:11)
[2016-08-04 10:09] LABS: Basophils % (Auto) 0.5 % (0.0-1.8); Eosinophils % (Auto) 1.2 % (0.0-4.3); Hematocrit 40.5 % (30.3-42.9); Mean Corpuscular HGB Conc 32 % (30-34); Mean Corpuscular Volume 80 fl (79-97); Platelet Count 303 K/mm3 (140-440); Red Blood Count 5.08 M/mm3 (3.65-5.03); Red Cell Distribution Width 13.9 % (13.2-15.2); White Blood Count 6.8 K/mm3 (4.5-11.0)
[2016-08-04 10:17] LABS: Mean Corpuscular Hemoglobin 26 pg (28-32)
[2016-08-04 10:23] LABS: INR 1.08 (0.87-1.13); Partial Thromboplastin Time 23.6 Sec. (24.2-36.6)
[2016-08-04 10:52] LABS: Anion Gap TNR mmol/L; Carbon Dioxide TNR mmol/L (22-30); Chloride TNR mmol/L (98-107); Potassium TNR mmol/L (3.6-5.0); Sodium TNR mmol/L (137-145)
[2016-08-04 10:53] LABS: Alanine Aminotransferase TNR units/L (7-56); Albumin TNR g/dL (3.9-5); BUN/Creatinine Ratio TNR; Bilirubin,Total TNR mg/dL (0.1-1.2); Blood Urea Nitrogen TNR mg/dL (7-17); Calcium TNR mg/dL (8.4-10.2); Glucose TNR mg/dL (65-100); Total Protein TNR g/dL (6.3-8.2)
[2016-08-04 10:54] LABS: Albumin/Globulin Ratio TNR %; Alkaline Phosphatase TNR units/L (35-129); Lipase TNR units/L (13-60)
== END 2016-08-04 10:00 | disposition left against medical advice (07) ==
LOC: ED 08:53
DX: R07.9 Chest pain, unspecified (principal); R11.10 Vomiting, unspecified; Z53.21 Procedure and treatment not carried out due to patient leaving prior to being seen by health care provider
CPT/HCPCS: 36415; 80053; 83690; 85025; 85610; 85730; 86850; 86900; 86901; 93005; 93010

== ENCOUNTER 2016-09-02 09:48 | Emergency (ER) | payer MEDICAID ==
[2016-09-02] MEDS ORDERED: NACL 0.9% 1000 ML 1,000 ML IV ONE (10:24)
[2016-09-02 10:53] LABS: Basophils % (Auto) 0.8 % (0.0-1.8); Eosinophils % (Auto) 0.6 % (0.0-4.3); Hematocrit 43.1 % (30.3-42.9); Hemoglobin 14.1 gm/dl (10.1-14.3); Mean Corpuscular HGB Conc 33 % (30-34); Mean Corpuscular Hemoglobin 26 pg (28-32); Mean Corpuscular Volume 80 fl (79-97); Platelet Count 274 K/mm3 (140-440); Red Cell Distribution Width 14.1 % (13.2-15.2); White Blood Count 5.4 K/mm3 (4.5-11.0)
[2016-09-02 10:56] LABS: INR 1.02 (0.87-1.13)
[2016-09-02 10:57] LABS: Partial Thromboplastin Time 23.9 Sec. (24.2-36.6)
[2016-09-02 11:08] LABS: Alanine Aminotransferase 20 units/L (7-56); Albumin 3.7 g/dL (3.9-5); Albumin/Globulin Ratio 1.1 %; Alkaline Phosphatase 122 units/L (35-129); Blood Urea Nitrogen 15 mg/dL (7-17); Calcium 9.3 mg/dL (8.4-10.2); Carbon Dioxide 23 mmol/L (22-30); Glucose 92 mg/dL (65-100); Lipase 18 units/L (13-60); Total Protein 7.2 g/dL (6.3-8.2)
[2016-09-02 11:09] LABS: Anion Gap 16 mmol/L; Chloride 105.1 mmol/L (98-107); Potassium 4.1 mmol/L (3.6-5.0); Sodium 140 mmol/L (137-145)
--- NOTE | 2016-09-02 16:24 | Emergency Department Report ---
HPI - General Chief Complaint: GI Bleed Time Seen by Provider: 09/02/16 16:19 - HPI HPI: Patient complain of nausea burning feeling in epigastric area. Patient has not taken any medicine for her symptoms. Said the symptoms have been going on for weeks. Stated it seems like she is vomiting red substance. She is only vomiting once or twice for the past 2 weeks. History of GERD not on any medication. History of seizures stated only Ativan helps. ED Past Medical Hx - Past Medical History Previous Medical History?: Yes Hx Heart Attack/AMI: (pt states "needing stents") Hx Diabetes: No Hx Pulmonary Embolism: Yes Hx Seizures: Yes Hx Psychiatric Treatment: Yes (anxiety) Hx HIV: No Additional medical history: pericarditis, pt states hyperthyroidism, thyroid storm, PE x 2, Graves Disease, heart murmur, seizures; PE dx on rt lung May 2016--on Eliquis - Surgical History Past Surgical History?: No - Social History Smoking Status: Former Smoker Substance Use Type: Marijuana - Medications Home Medications: Home Medications Medication Instructions Recorded Confirmed Last Taken Type ALBUTEROL NEB's [Proventil 0.083% 2.5 mg IH Q4HRT PRN #30 nebu 07/21/16 Unknown Rx NEBS] Pantoprazole [Protonix TAB] 40 mg PO BID #30 tablet 07/21/16 09/02/16 09/02/16 Rx Propranolol [Inderal] 40 mg PO Q12HR #14 tablet 07/21/16 09/02/16 09/02/16 Rx Quetiapine Fumarate [SEROquel XR] 300 mg PO QDAY #30 tab.er.24h 07/21/1609/02/16 Rx levETIRAcetam [Keppra TAB] 500 mg PO BID #60 tablet 07/21/16 09/02/16 09/02/16 Rx LORazepam [Ativan] 1 mg PO QHS #14 tab 09/02/16 Unknown Rx Methimazole [Tapazole] 10 mg PO Q8HR 09/02/16 09/02/16 09/01/16 History Omeprazole 40 mg PO DAILY #30 capsule. 09/02/16 Unknown Rx ED Review of Systems ROS: Stated complaint: CHEST PAIN,VOMITING BLOOD/SZ Other details as noted in HPI Comment: All other systems reviewed and negative Cardiovascular: chest pain Gastrointestinal: abdominal pain, nausea Physical Exam - Physical Exam Vital Signs: Vital Signs 09/02/16 09/02/16 09/02/16 10:11 15:03 15:42 Temperature 98.5 F 98.1 F Pulse Rate 95 H 85 86 Respiratory 20 16 16 Rate Blood Pressure 132/84 Blood Pressure 141/82 122/74 [Right] O2 Sat by Pulse 99 100 98 Oximetry Physical Exam: Gen. alert and oriented 3 in no distress Head atraumatic normocephalic Eyes PERR LA EOMI Chest regular rate and rhythm normal S1-S2 lungs clear bilaterally Abdomen soft nondistended Back no point tenderness paravertebral tenderness Neuro no focal deficit. Psych normal mood. ED Course Vital Signs 09/02/16 09/02/16 09/02/16 10:11 15:03 15:42 Temperature 98.5 F 98.1 F Pulse Rate 95 H 85 86 Respiratory 20 16 16 Rate Blood Pressure 132/84 Blood Pressure 141/82 122/74 [Right] O2 Sat by Pulse 99 100 98 Oximetry - Reevaluation(s) Reevaluation #1: 09/02/16 19:58 Improvement while in ED. Wants to go home ED Medical Decision Making - Lab Data Result diagrams: 09/02/16 10:32 09/02/16 10:32 Critical care attestation.: If time is entered above; I have spent that time in minutes in the direct care of this critically ill patient, excluding procedure time. ED Disposition Clinical Impression: Gastritis and duodenitis, Anxiety in acute stress reaction Disposition: DC-01 TO HOME OR SELFCARE Is pt being admited?: No Does the pt Need Aspirin: No Condition: Stable Prescriptions: LORazepam [Ativan] 1 mg PO QHS #14 tab Omeprazole 40 mg PO DAILY #30 capsule. Referrals: PRIMARY CARE, [Primary Care Provider] - 3-5 Days Forms: Accompanied Note
[2016-09-02] MEDS ORDERED: MORPHINE IV ONE (16:26)
[2016-09-02] MEDS ORDERED: ZOFRAN IV ONE (16:27)
[2016-09-02] MEDS ORDERED: PROTONIX IV ONE (16:27)
[2016-09-02 18:52] LABS: Bilirubin,Urine NEG (Negative); Blood,Urine SM (Negative); Ketones,Urine NEG (Negative); Leukocyte Esterase,Urine NEG (Negative); Mucus,Urine FEW /HPF; Nitrite,Urine NEG (Negative); Protein,Urine <15 mg/dL mg/dL (Negative); Urobilinogen,Urine < 2.0 mg/dL (<2.0)
[2016-09-02 20:45] VITALS: BP 138/85
== END 2016-09-02 20:35 | disposition home or self-care (01) ==
LOC: ED 09:48
DX: K29.70 Gastritis, unspecified, without bleeding (principal); K29.80 Duodenitis without bleeding; F41.8 Other specified anxiety disorders; F43.0 Acute stress reaction; I25.2 Old myocardial infarction; R56.9 Unspecified convulsions; I26.99 Other pulmonary embolism without acute cor pulmonale; Z87.891 Personal history of nicotine dependence; F12.10 Cannabis abuse, uncomplicated; Z91.018 Allergy to other foods; Z88.0 Allergy status to penicillin
CPT/HCPCS: 36415; 80053; 81001; 81025; 83690; 85025; 85610; 85730; 86850; 86900; 86901; 93005; 93010; 96374; 96375; 99284; C9113; J2270; J2405

== ENCOUNTER 2016-09-23 09:10 | Emergency (ER) | payer MEDICAID ==
--- NOTE | 2016-09-23 09:51 | XRay Report ---
CHEST 2 VIEWS INDICATION: Shortness of breath. COMPARISON: 07/18/2016. FINDINGS: PA and lateral chest radiographs demonstrate top normal heart size. Normal mediastinal and hilar contours. Clear lungs. Intact bones. CONCLUSION: No acute disease in the chest. Thank you for the opportunity to participate in this patient's care.
[2016-09-23 10:02] LABS: Basophils % (Auto) 0.4 % (0.0-1.8); Eosinophils % (Auto) 1.8 % (0.0-4.3); Hematocrit 36.5 % (30.3-42.9); Hemoglobin 11.8 gm/dl (10.1-14.3); Mean Corpuscular HGB Conc 32 % (30-34); Mean Corpuscular Volume 80 fl (79-97); Platelet Count 276 K/mm3 (140-440); Red Blood Count 4.56 M/mm3 (3.65-5.03); Red Cell Distribution Width 14.2 % (13.2-15.2); White Blood Count 7.7 K/mm3 (4.5-11.0)
[2016-09-23 10:08] LABS: Anion Gap 17 mmol/L; Blood Urea Nitrogen 12 mg/dL (7-17); Calcium 8.7 mg/dL (8.4-10.2); Carbon Dioxide 23 mmol/L (22-30); Chloride 106.8 mmol/L (98-107); Glucose 92 mg/dL (65-100); Potassium 3.9 mmol/L (3.6-5.0); Sodium 143 mmol/L (137-145)
[2016-09-23 10:09] LABS: Mean Corpuscular Hemoglobin 26 pg (28-32)
[2016-09-23 10:25] LABS: INR 0.98 (0.87-1.13)
[2016-09-23 16:24] VITALS: BP 144/66
--- NOTE | 2016-09-23 16:35 | Emergency Department Report ---
HPI - General Chief Complaint: Nausea/Vomiting/Diarrhea Time Seen by Provider: 09/23/16 16:31 - HPI HPI: Patient is a 36-year-old -[place] female with complicated medical history. She has a history of GERD on Protonix, history of bipolar on Seroquel , history of seizures on Keppra, Ativan, history of generalized anxiety disorder on Xanax when necessary, history of pericarditis, history of PE on Eliquis. She presents today complaining of nausea, vomiting, for the past 2 days. She was in the hospital on 09/18/2016, was admitted and discharged. She stated that her prescription was sent to [facility] patient did not receive them. She also complains of headache and bilateral temporal area without change of vision without focal weakness. She also complained of chest pain radiating to both arms. She denies any alleviating or exacerbating factors for this pain. Patient today also wants to be checked for cancer, any kind of cancer. Patient states she doesn't have a primary care doctor yet, since she recently moved to this area. ED Past Medical Hx - Past Medical History Hx Heart Attack/AMI: (pt states "needing stents") Hx Diabetes: No Hx Pulmonary Embolism: Yes Hx Seizures: Yes Hx Psychiatric Treatment: Yes (anxiety) Hx HIV: No Additional medical history: pericarditis, pt states hyperthyroidism, thyroid storm, PE x 2, Graves Disease, heart murmur, seizures; PE dx on rt lung May 2016--on Eliquis - Surgical History Past Surgical History?: No - Family History Family history: hypertension - Social History Smoking Status: Former Smoker Substance Use Type: Prescribed - Medications Home Medications: Home Medications Medication Instructions Recorded Confirmed Last Taken Type Pantoprazole [Protonix TAB] 40 mg PO BID #30 tablet 07/21/16 09/18/16 09/02/16 Rx SEROquel 100 mg PO DAILY 09/18/16 09/18/16 Unknown History Xanax TAB 1 mg PO BID 09/18/16 09/18/16 Unknown History ALBUTEROL NEB's [Proventil 0.083% 2.5 mg IH Q4HRT PRN #30 nebu 09/23/16 Unknown Rx NEBS] Eliquis 0.5 mg PO BID #30 09/23/16 Unknown Rx LORazepam [Ativan] 1 mg PO QHS #14 tab 09/23/16 Unknown Rx Methimazole [Tapazole] 10 mg PO Q8HR #30 tablet 09/23/16 Unknown Rx Omeprazole 40 mg PO DAILY #30 capsule. 09/23/16 Unknown Rx Propranolol [Inderal] 40 mg PO Q12HR #14 tablet 09/23/16 Unknown Rx Quetiapine Fumarate [SEROquel XR] 300 mg PO QDAY #30 tab.er.24h 09/23/16 Unknown Rx levETIRAcetam [Keppra TAB] 500 mg PO BID #60 tablet 09/23/16 Unknown Rx ED Review of Systems ROS: Stated complaint: CHEST PAIN/EMESIS BLOOD/SYNCOPE/NUMBNESS Other details as noted in HPI Comment: All other systems reviewed and negative Endocrine: no symptoms reported Gastrointestinal: nausea, vomiting Musculoskeletal: as per HPI Skin: as per HPI Neurological: as per HPI Psychiatric: anxiety Physical Exam - Physical Exam Vital Signs: Vital Signs 09/23/16 09/23/16 09:19 16:21 Temperature 98.7 F Pulse Rate 63 92 H Respiratory 15 18 Rate Blood Pressure 131/87 Blood Pressure 144/66 [Left] O2 Sat by Pulse 100 100 Oximetry Physical Exam: Gen. alert and oriented 3 in no distress Head atraumatic normocephalic Eyes PERR LA EOMI Chest regular rate and rhythm normal S1-S2 lungs clear bilaterally Abdomen soft nondistended Back no point tenderness paravertebral tenderness Neuro no focal deficit. Psych anxious ED Course Vital Signs 09/23/16 09/23/16 09:19 16:21 Temperature 98.7 F Pulse Rate 63 92 H Respiratory 15 18 Rate Blood Pressure 131/87 Blood Pressure 144/66 [Left] O2 Sat by Pulse 100 100 Oximetry ED Medical Decision Making - Lab Data Result diagrams: 09/23/16 09:34 09/23/16 09:34 Critical care attestation.: If time is entered above; I have spent that time in minutes in the direct care of this critically ill patient, excluding procedure time. ED Disposition Clinical Impression: Chest pain Disposition: DC-01 TO HOME OR SELFCARE Is pt being admited?: No Does the pt Need Aspirin: No Condition: Stable Instructions: Chest Pain (ED) Prescriptions: LORazepam [Ativan] 1 mg PO QHS #14 tab ALBUTEROL NEB's [Proventil 0.083% NEBS] 2.5 mg IH Q4HRT PRN #30 nebu PRN Reason: Shortness Of Breath Eliquis 0.5 mg PO BID #30 levETIRAcetam [Keppra TAB] 500 mg PO BID #60 tablet Methimazole [Tapazole] 10 mg PO Q8HR #30 tablet Omeprazole 40 mg PO DAILY #30 capsule. Propranolol [Inderal] 40 mg PO Q12HR #14 tablet Quetiapine Fumarate [SEROquel XR] 300 mg PO QDAY #30 tab.er.24h Referrals: REDD FLORIAN MD [Staff Physician] - 3-5 Days
[2016-09-23] MEDS: NORCO 5/325 PO ONE (16:56)
== END 2016-09-23 17:45 | disposition home or self-care (01) ==
LOC: ED 09:10
DX: R07.9 Chest pain, unspecified (principal); I25.2 Old myocardial infarction
CPT/HCPCS: 36415; 71020; 80048; 84484; 85025; 85610; 93005; 93010

== ENCOUNTER 2016-09-29 12:49 | Inpatient (IN) | payer MEDICAID ==
[2016-09-29 13:32] LABS: Basophils % (Auto) 0.4 % (0.0-1.8); Eosinophils % (Auto) 0.9 % (0.0-4.3); Hematocrit 42.5 % (30.3-42.9); Hemoglobin 13.7 gm/dl (10.1-14.3); Mean Corpuscular HGB Conc 32 % (30-34); Mean Corpuscular Volume 80 fl (79-97); Platelet Count 263 K/mm3 (140-440); Red Blood Count 5.31 M/mm3 (3.65-5.03); Red Cell Distribution Width 14.2 % (13.2-15.2); White Blood Count 7.9 K/mm3 (4.5-11.0)
[2016-09-29 13:37] LABS: Mean Corpuscular Hemoglobin 26 pg (28-32)
[2016-09-29] MEDS ORDERED: TORADOL IV ONE (13:52)
[2016-09-29] MEDS ORDERED: NACL 0.9% 1000 ML 1,000 ML IV ONE (13:53)
--- NOTE | 2016-09-29 13:57 | Emergency Department Report ---
ED Chest Pain HPI - General Chief Complaint: Chest Pain Stated Complaint: CHEST PAIN Time Seen by Provider: 09/29/16 13:39 Source: EMS Mode of arrival: Stretcher Limitations: No Limitations - History of Present Illness Initial Comments: Ms. John is a 36-year-old female well known to this ER she is coming with chest pain seizure generalized pain shaking and coughing blood and passing bloody stool and abnormal vagaginal bleeding, this is been going on for 2-3 days. Patient had history of PE she is on EllIQOUS. MD Complaint: chest pain -: days(s) Onset: during rest Pain Location: left chest Severity scale (0 -10): 5 Quality: sharp Improves With: nothing re: denies: nausea, vomting, diaphoresis - Related Data Home Medications Medication Instructions Recorded Confirmed Last Taken Xanax TAB 1 mg PO BID 09/18/16 09/18/16 Unknown Previous Rx's Medication Instructions Recorded Last Taken Type Pantoprazole [Protonix TAB] 40 mg PO BID #30 tablet 07/21/16 09/02/16 Rx ALBUTEROL NEB's [Proventil 0.083% 2.5 mg IH Q4HRT PRN #30 nebu 09/23/16 Unknown Rx NEBS] Eliquis 0.5 mg PO BID #30 09/23/16 Unknown Rx LORazepam [Ativan] 1 mg PO QHS #14 tab 09/23/16 Unknown Rx Methimazole [Tapazole] 10 mg PO Q8HR #30 tablet 09/23/16 Unknown Rx Omeprazole 40 mg PO DAILY #30 capsule.dr 09/23/16 Unknown Rx Propranolol [Inderal] 40 mg PO Q12HR #14 tablet 09/23/16 Unknown Rx Quetiapine Fumarate [SEROquel XR] 300 mg PO QDAY #30 tab.er.24h 09/23/16 Unknown Rx SEROquel 100 mg PO DAILY #30 09/23/16 Unknown Rx levETIRAcetam [Keppra TAB] 500 mg PO BID #60 tablet 09/23/16 Unknown Rx Allergies Allergy/AdvReac Type Severity Reaction Status Date / Time garlic Allergy Unknown Verified 09/29/16 12:56 ibuprofen [From Motrin] Allergy Unknown Verified 09/29/16 12:56 peanut oil Allergy Unknown Verified 09/29/16 12:56 Penicillins Allergy Unknown Verified 09/29/16 12:56 Heart Score - HEART Score History: Slightly suspicious EKG: Non-specific Age: < 45 Risk factors: No known risk factors Troponin: < normal limit HEART Score: 1 - Critical Actions Critical Actions: 0-3 pts:0.9-1.7%risk of adverse cardiac event.Candidate for discharge ED Review of Systems ROS: Stated complaint: CHEST PAIN Other details as noted in HPI Comment: All other systems reviewed and negative Constitutional: chills. denies: fever Respiratory: cough, shortness of breath Cardiovascular: chest pain Gastrointestinal: denies: abdominal pain, nausea, vomiting Genitourinary: denies: urgency Musculoskeletal: back pain. denies: joint swelling, arthralgia Neurological: denies: headache Psychiatric: denies: depression, auditory hallucinations, visual hallucinations , homicidal thoughts, suicidal thoughts ED Past Medical Hx - Past Medical History Previous Medical History?: Yes Hx Heart Attack/AMI: (pt states "needing stents") Hx Diabetes: No Hx Pulmonary Embolism: Yes Hx Seizures: Yes Hx Psychiatric Treatment: Yes (anxiety) Hx HIV: No Additional medical history: pericarditis, pt states hyperthyroidism, thyroid storm, PE x 2, Graves Disease, heart murmur, seizures; PE dx on rt lung May 2016--on Eliquis - Surgical History Past Surgical History?: No - Social History Smoking Status: Never Smoker Substance Use Type: None - Medications Home Medications: Home Medications Medication Instructions Recorded Confirmed Last Taken Type Pantoprazole [Protonix TAB] 40 mg PO BID #30 tablet 07/21/16 09/18/16 09/02/16 Rx Xanax TAB 1 mg PO BID 09/18/16 09/18/16 Unknown History ALBUTEROL NEB's [Proventil 0.083% 2.5 mg IH Q4HRT PRN #30 nebu 09/23/16 Unknown Rx NEBS] Eliquis 0.5 mg PO BID #30 09/23/16 Unknown Rx LORazepam [Ativan] 1 mg PO QHS #14 tab 09/23/16 Unknown Rx Methimazole [Tapazole] 10 mg PO Q8HR #30 tablet 09/23/16 Unknown Rx Omeprazole 40 mg PO DAILY #30 capsule. 09/23/16 Unknown Rx Propranolol [Inderal] 40 mg PO Q12HR #14 tablet 09/23/16 Unknown Rx Quetiapine Fumarate [SEROquel XR] 300 mg PO QDAY #30 tab.er.24h 09/23/16 Unknown Rx SEROquel 100 mg PO DAILY #30 09/23/16 Unknown Rx levETIRAcetam [Keppra TAB] 500 mg PO BID #60 tablet 09/23/16 Unknown Rx ED Physical Exam - General Limitations: No Limitations General appearance: alert, anxious - Head Head exam: Absent: atraumatic - Eye Eye exam: Present: normal appearance Pupils: Present: normal accommodation - ENT ENT exam: Present: normal exam, normal orophraynx - Neck Neck exam: Present: normal inspection - Respiratory Respiratory exam: Present: normal lung sounds bilaterally. Absent: respiratory distress, wheezes, rales, rhonchi, stridor, chest wall tenderness, accessory muscle use, decreased breath sounds, prolonged expiratory - Cardiovascular Cardiovascular Exam: Present: tachycardia, normal heart sounds - GI/Abdominal GI/Abdominal exam: Present: soft. Absent: distended, tenderness, guarding, rebound, rigid, normal bowel sounds, hyperactive bowel sounds, hypoactive bowel sounds, organomegaly, mass, bruit, pulsatile mass, hernia - Back Exam Back exam: Present: normal inspection. Absent: CVA tenderness (R), CVA tenderness (L) - Neurological Exam Neurological exam: Present: alert, oriented X3, CN II-XII intact - Psychiatric Psychiatric exam: Present: anxious. Absent: homicidal ideation, suicidal ideation - Skin Skin exam: Present: warm, normal color ED Course Vital Signs 09/29/16 09/29/16 12:56 14:20 Respiratory 16 20 Rate O2 Sat by Pulse 100 Oximetry - Reevaluation(s) Reevaluation #1: 09/29/16 14:[address] THOMSON FOR ADMISSION ED Medical Decision Making - Lab Data Result diagrams: 09/29/16 13:08 09/29/16 13:08 Critical care attestation.: If time is entered above; I have spent that time in minutes in the direct care of this critically ill patient, excluding procedure time. ED Disposition Clinical Impression: Chest pain, GI bleed Disposition: OP ADMIT IP TO THIS HOSP Is pt being admited?: Yes Condition: Stable Instructions: Chest Pain (ED) Referrals: PRIMARY CARE,MD [Primary Care Provider] - 3-5 Days
[2016-09-29 14:16] LABS: Anion Gap 19 mmol/L; Blood Urea Nitrogen 13 mg/dL (7-17); Calcium 9.3 mg/dL (8.4-10.2); Carbon Dioxide 22 mmol/L (22-30); Chloride 102.4 mmol/L (98-107); Glucose 106 mg/dL (65-100); Potassium 4.2 mmol/L (3.6-5.0); Sodium 139 mmol/L (137-145)
--- NOTE | 2016-09-29 14:40 | XRay Report ---
PORTABLE CHEST: Chest pain An AP portable view of the chest demonstrates a normal cardiac contour considering the limits of this technique. The lungs are clear with no evidence of infiltrate, fluid or failure. IMPRESSION: Normal portable chest.
[2016-09-29] MEDS ORDERED: DILAUDID IV PRN (15:09)
[2016-09-29] MEDS ORDERED: MORPHINE ONE (15:45)
[2016-09-29] MEDS: MORPHINE IV PRN ×2 (16:26→20:23)
--- NOTE | 2016-09-29 23:55 | History and Physical Report ---
History of Present Illness Date of examination: 09/29/16 Date of admission: 09/29/16 14:54 Chief complaint: Chest pain and coughing up blood 1 day History of present illness: TELIDA: 36 y/o female with PMH of PE on Eliquis comes in for vomiting/coughing blood and increased vaginal bleeding.Also feels gen weakness and Malaise.No exacerbating or relieving factors.Chest pain anterior and non radiating.Painabout 5 on scale of 10.Also Bloody stoolsNo syncope or Light headedness Past Medical History Hx Heart Attack/AMI: (pt states "needing stents") Hx Pulmonary Embolism: Yes Hx Seizures: Yes Hx Psychiatric Treatment: Yes (anxiety) Additional medical history: pericarditis, pt states hyperthyroidism, thyroid storm, PE x 2, Graves Disease, heart murmur, seizures; PE dx on rt lung May 2016--on Eliquis - Surgical History Past Surgical History?: No - Social History Smoking Status: Never Smoker Substance Use Type: None Fam HX Htn - Medications Home Medications: Home Medications Medication Instructions Recorded Confirmed Last Taken Type Pantoprazole [Protonix TAB] 40 mg PO BID #30 tablet 07/21/16 09/18/16 09/02/16 Rx Xanax TAB 1 mg PO BID 09/18/16 09/18/16 Unknown History ALBUTEROL NEB's [Proventil 0.083% 2.5 mg IH Q4HRT PRN #30 nebu 09/23/16 Unknown Rx NEBS] Eliquis 0.5 mg PO BID #30 09/23/16 Unknown Rx LORazepam [Ativan] 1 mg PO QHS #14 tab 09/23/16 Unknown Rx Methimazole [Tapazole] 10 mg PO Q8HR #30 tablet 09/23/16 Unknown Rx Omeprazole 40 mg PO DAILY #30 capsule. 09/23/16 Unknown Rx Propranolol [Inderal] 40 mg PO Q12HR #14 tablet 09/23/16 Unknown Rx Quetiapine Fumarate [SEROquel XR] 300 mg PO QDAY #30 tab.er.24h 09/23/16 Unknown Rx SEROquel 100 mg PO DAILY #30 09/23/16 Unknown Rx levETIRAcetam [Keppra TAB] 500 mg PO BID #60 tablet 09/23/16 Unknown Rx Review of Systems ROS: Stated complaint: CHEST PAIN Other details as noted in HPI Comment: All other systems reviewed and negative Constitutional: chills. denies: fever Respiratory: cough, shortness of breath Cardiovascular: chest pain Gastrointestinal: denies: abdominal pain, nausea, vomiting Genitourinary: denies: urgency Musculoskeletal: back pain. denies: joint swelling, arthralgia Neurological: denies: headache Psychiatric: denies: depression, auditory hallucinations, visual hallucinations , homicidal thoughts, suicidal thoughts Medications and Allergies Allergies Allergy/AdvReac Type Severity Reaction Status Date / Time garlic Allergy Unknown Verified 09/29/16 12:56 ibuprofen [From Motrin] Allergy Unknown Verified 09/29/16 12:56 peanut oil Allergy Unknown Verified 09/29/16 12:56 Penicillins Allergy Unknown Verified 09/29/16 12:56 Home Medications Medication Instructions Recorded Confirmed Last Taken Type Pantoprazole [Protonix TAB] 40 mg PO BID #30 tablet 07/21/16 09/29/16 09/28/16 Rx Xanax TAB 1 mg PO BID 09/18/16 09/29/16 09/28/16 History ALBUTEROL NEB's [Proventil 0.083% 2.5 mg IH Q4HRT PRN #30 nebu 09/23/16 Unknown Rx NEBS] Eliquis 0.5 mg PO BID #30 09/23/16 09/29/16 09/28/16 Rx Methimazole [Tapazole] 10 mg PO Q8HR #30 tablet 09/23/16 09/29/16 09/28/16 Rx Quetiapine Fumarate [SEROquel XR] 300 mg PO QDAY #30 tab.er.24h 09/23/1609/28/16 Rx SEROquel 100 mg PO DAILY #30 09/23/16 09/29/16 09/28/16 Rx levETIRAcetam [Keppra TAB] 500 mg PO BID #60 tablet 09/23/16 09/29/16 09/28/16 Rx Active Meds: Active Medications Morphine Sulfate (Morphine) 2 mg IV Q4H PRN PRN Reason: Pain, Moderate (4-6) Last Admin: 09/29/16 20:23 Dose: 2 mg Exam - Constitutional Vitals: Temp Pulse Resp BP Pulse Ox 87 22 124/70 100 09/29/16 23:35 09/29/16 20:30 09/29/16 20:30 09/29/16 20:30 General appearance: Present: no acute distress, well-nourished - EENT Eyes: Present: PERRL ENT: hearing intact, clear oral mucosa - Neck Neck: Present: supple, normal ROM - Respiratory Respiratory effort: normal Respiratory: bilateral: CTA - Cardiovascular Heart rate: 117 Rhythm: regular Heart Sounds: Present: S1 & S2. Absent: rub, click - Extremities Extremities: pulses symmetrical, No edema Peripheral Pulses: within normal limits - Abdominal General gastrointestinal: Present: soft, non-tender, non-distended, normal bowel sounds Female genitourinary: Present: normal - Integumentary Integumentary: Present: clear, warm, dry - Musculoskeletal Musculoskeletal: gait normal, strength equal bilaterally - Psychiatric Psychiatric: appropriate mood/affect, intact judgment & insight - Neurologic Neurologic: CNII-XII intact, moves all extremities - Allied Health Allied health notes reviewed: nursing, case management Results - Labs CBC & Chem 7: 09/29/16 13:08 09/29/16 13:08 Labs: Laboratory Last Values WBC 7.9 K/mm3 (4.5-11.0) 09/29/16 13:08 RBC 5.31 M/mm3 (3.65-5.03) H 09/29/16 13:08 Hgb 13.7 gm/dl (10.1-14.3) 09/29/16 13:08 Hct 42.5 % (30.3-42.9) 09/29/16 13:08 MCV 80 fl (79-97) 09/29/16 13:08 MCH 26 pg (28-32) L 09/29/16 13:08 MCHC 32 % (30-34) 09/29/16 13:08 RDW 14.2 % (13.2-15.2) 09/29/16 13:08 Plt Count 263 K/mm3 (140-440) 09/29/16 13:08 Lymph % (Auto) 43.2 % (13 .4-35.0) H 09/29/16 13:08 [place] % (Auto) 9.8 % (0.0-7.3) H 09/29/16 13:08 Eos % (Auto) 0.9 % (0.0-4.3) 09/29/16 13:08 Baso % (Auto) 0.4 % (0.0-1.8) 09/29/16 13:08 Lymph # 3.4 K/mm3 (1.2-5.4) 09/29/16 13:08 [place] # 0.8 K/mm3 (0.0-0.8) 09/29/16 13:08 Eos # 0.1 K/mm3 (0.0-0.4) 09/29/16 13:08 Baso # 0.0 K/mm3 (0.0-0.1) 09/29/16 13:08 Seg Neutrophils % 45.7 % (40.0-70.0) 09/29/16 13:08 Seg Neutrophils # 3.6 K/mm3 (1.8-7.7) 09/29/16 13:08 D-Dimer 460.73 ng/mlDDU (0-234) H 09/29/16 14:09 Sodium 139 mmol/L (137-145) 09/29/16 13:08 Potassium 4.2 mmol/L (3.6-5.0) 09/29/16 13:08 Chloride 102.4 mmol/L (98-107) 09/29/16 13:08 Carbon Dioxide 22 mmol/L (22-30) 09/29/16 13:08 Anion Gap 19 mmol/L 09/29/16 13:08 BUN 13 mg/dL (7-17) 09/29/16 13:08 Creatinine 0.4 mg/dL (0.7-1.2) L 09/29/16 13:08 Estimated GFR > 60 ml/min 09/29/16 13:08 BUN/Creatinine Ratio 32.50 % 09/29/16 13:08 Glucose 106 mg/dL (65-100) H 09/29/16 13:08 Calcium 9.3 mg/dL (8.4-10.2) 09/29/16 13:08 Troponin T < 0.010 ng/mL (0.00-0.029) 09/29/16 19:51 HCG, Qual Negative (Negative) 09/29/16 13:08 - Imaging and Cardiology EKG: report reviewed (Sin Tach 117/min) Chest x-ray: report reviewed (NAF) Assessment and Plan Advance Directives: Yes (FC) VTE prophylaxis?: Mechanical Plan of care discussed with patient/family: Yes - Patient Problems (1) Chest pain at rest Current Visit: Yes Status: Acute Plan to address problem: Chest pain r/Nati workup in the form of serial CE's and Lexiscan (2) GI bleed Current Visit: Yes Status: Acute Qualifiers: GI bleed type/associated pathology: G Gastritis type: G Plan to address problem: GI consult requested IV protonix/Famotidine Patient may need to be initiated on Coumadin when stable.Eliquis/Xarelto have more GI complications than coumadin. (3) Hyperthyroidism Current Visit: Yes Status: Chronic Plan to address problem: On Methimazole (4) HTN (hypertension) Current Visit: Yes Status: Chronic Qualifiers: Hypertension type: essential hypertension Qualified Code(s): I10 - Essential (primary) hypertension Plan to address problem: Cont antihypertensives (5) Asthma Current Visit: Yes Status: Acute Qualifiers: Asthma severity: A Asthma complication type: A (6) Asthma Current Visit: Yes Status: Chronic Qualifiers: Asthma severity: A Asthma complication type: uncomplicated Plan to address problem: MDI's as necessary (7) Seizure disorder Current Visit: Yes Status: Chronic Plan to address problem: Cont Seizure meds (8) DVT prophylaxis Current Visit: Yes Status: Acute Plan to address problem: on SCD's
[2016-09-30] MEDS: MORPHINE IV PRN ×6 (00:26→21:53)
[2016-09-30] MEDS ORDERED: MILK OF MAGNESIA PO PRN (02:03)
[2016-09-30] MEDS ORDERED: DULCOLAX PR PRN (02:03)
[2016-09-30] MEDS ORDERED: D5NS 1,000 ML IV SCH (03:00)
[2016-09-30] MEDS: PEPCID IV SCH ×3 (03:17→21:55)
[2016-09-30] MEDS: TYLENOL PO PRN ×2 (05:27→17:38)
[2016-09-30] MEDS: ZOFRAN IV PRN ×3 (05:29→21:54)
[2016-09-30] MEDS ORDERED: PROVENTIL IH PRN (08:11)
[2016-09-30] MEDS: PROTONIX PO SCH ×2 (09:20→21:56)
[2016-09-30] MEDS: XANAX PO SCH ×2 (09:20→21:55)
[2016-09-30] MEDS: TAPAZOLE PO SCH ×2 (09:20→17:38)
[2016-09-30] MEDS ORDERED: NON-FORMULARY (Quetiapine Fumarate [Seroquel Xr] 300 MG) PO SCH (10:00)
[2016-09-30] MEDS ORDERED: FLEET PR ONE (10:06)
[2016-09-30 10:27] LABS: Creatine Kinase 62 units/L (30-135)
[2016-09-30 10:30] LABS: Creatine Kinase MB < 1.0 ng/mL (0.0-4.0)
--- NOTE | 2016-09-30 11:55 | Admit Criteria Form ---
Admission Criteria Documentation: CARDIOLOGY GRG Clinical Indications for Admission to Inpatient Care ([place]/check or initial the applicable condition/criteria) Hospital admission is needed for appropriate care of the patient because of ANY ONE of the following: [ ] I. Hemodynamic instability as indicated by ALL of the following (1)(2)(3) (4)(5)(6)(7)(8)(9)(10) [ ]a) Vital sign abnormality not readily corrected by appropriate treatment with 12-24 hours for ANY ONE: [ ]i) Hypotension that persists despite appropriate treatment (eg, volume repletion) [ ]ii) Tachycardiathat persists despite appropriate tx ( e.g., analgesia, fluids, sedation as indicated [ ]iii) Orthostatic vital sign changes that persists despite appropriate treatment (eg, volume repletion) [ ]b) Vital sign abnormailty that is severe indicated by ANY ONE of the following: [ ]i) Inadequate perfusion indicated by ANY ONE of the following: [ ] 1) Lactic acidosis (> 2 mmol/L) [ ] 2) New abnormal capillary refill (> 3 seconds) [ ] 3) Reduced urine output [ ] 4) New altered mental status [ ] 5) Myocardial Ischemia [ ] 6) Other metabolic acidosis (arterial pH <7.35 ) not otherwise explained. [ ]ii) Mean arterial pressure[A] less than 60 mm Hg [ ]iii) Mean arterial pressure[A] less than 70 mm Hg after 30 minutes of appropriate treatment (eg, fluid resuscitation) [ ]iv) Sustained heart rate greater than 120 beats per minute in adult or child 6 years or older[B] [ ]v) IV inotropic or vasopressor medication required to maintain adequate blood pressure or perfusion [ ] II. Severe heart failure as indicated by ANY ONE of the following(17)(18) [ ]a) Respiratory distress [ ]b) Hypotension [ ]c) Debilitating anasarca refractory to therapy (eg, tissue breakdown with infection)[C](19) [ ]d) Cardiac arrhythmias of immediate concern [ ]e) Myocardial ischemia [ ] III. Cardiac arrhythmias or findings of immediate concern indicated by ANY ONE of the following (21)(22): [ ] a) Heart rhythms that are inherently dangerous or unstable indicated by ANY ONE of the following (23)(24)(25): [ ] i) Resuscitated ventricular fibrillation or cardiac arrest [ ] ii) Ventricular escape rhythm [ ] iii) Sustained ventricular tachycardia (30 seconds or more of ventricular rhythm at greater than 100 beats per minute) [ ] iv) Nonsustained ventricular tachycardia and ANY ONE of the following: [ ] 1) Suspected cardiac ischemia as cause or consequence of ventricular tachycardia [ ] 2) Acute myocarditis [ ] b) Unstable cardiac conduction defects indicated by ANY ONE of the following(25)(26)(27) [ ] i) Type II second-degree atrioventricular block [ ]ii) Third-degree atrioventricular block [ ]iii) New-onset left bundle branch block with suspected myocardial ischemia [ ]c) Any heart rhythm and ANY ONE of the following (23)(24)(28)(29) (30) [ ] i) Continuous long-term ECG monitoring needed (e.g., initiation of drug requiring monitoring for more than 24 hours) [ ] ii) Patient has automatic implanted cardioverter defibrillator that is repeatedly firing, malfunctioning, or in need of immediate adjustment of settings beyond the scope of ambulatory or observation care [ ]d) Heart rhythms of concern due to ANY ONE of the following: [ ] i) Hypotension [ ] ii) Respiratory distress [ ] iii) Association with other significant symptoms (e.g., bradycardia with syncope or ongoing dizziness, supraventricular tachycardia with chest pain (28)(29)(31) [ ] IV. Monitoring for cardiac contusion beyond the scope of observation care needed [A](32)(33)(34) [ ] V. Surgical or device complication (e.g., valve replacement complication , ICD disfunction or pacemaker dysfunction) (49)(50)(51)(52)(53)(54) [ ] . Inpatient palliative care needed. [F](51)(52) Also use Inpatient Palliative Care Criteria [ ] VII. Nonbacterial thrombotic (marantic) endocarditis(43)(44)(55)(56)(57) [X ] VIII. Cardiology condition, symptom, or finding for which emergency and observation care has failed or are not considered appropriate. [ ] IX. Acute valvular disease requiring inpatient as indicated by ANY ONE of the following (40)(41) [ ]a) Acute valvular regurgitation (42) [ ]b) Noninfectious valvulitis (43)(44) [ ]c) Obstructive valve thrombosis (45)(46) [ ]d) Paravalvular leak(47)(48) [ ]e) Other significant valvular disorder remaining after emergency or observation level of care (as appropriate) [ ]X. Pericardial disease requiring inpatient treatment as indicated by ANY ONE of the following (35)(36)(37)(38) [ ]a) Suspected tamponade [ ]b) Hemopericardium [ ]c) Other significant pericardial disorder remaining after emergency or observation level of care (as appropriate)(39) [ ] XI. Cardiac ischemia beyond scope of emergency and observation care. [ ] XII. Cyanotic heart disease requiring inpatient care as indicated by 1 or more of the following(58)(59)(60): [ ]a) Acute onset of hypoxemia [ ]b) Exacerbation [ ] XIII. Hypertension requiring inpatient treatment as indicated by ANYONE of the following(11)(12)(13)(14): [ ]a) Severe hypertension (SBP greater than 180 mm Hg or DBP greater than 110 mm Hg, or greater than the 95th percentile for age, gender, and height in pediatric patients) that cannot be controlled (eg, to SBP less than 160 mm Hg and DBP less than 100 mm Hg) by emergency department or observation care treatment(15) [ ]b) Acute end organ damage secondary to hypertension (SBP greater than 140 mm Hg or DBP greater than 90 mm Hg) as indicated by ANYONE of the following: [ ] i) Hypertensive encephalopathy (eg, Altered mental status)(16) [ ] ii) Cerebral infarction [ ] iii) Intracranial hemorrhage [ ] iv) Myocardial ischemia or infarction [ ] v) Heart failure (eg, pulmonary edema) [ ] vi) Aortic dissection [ ] vii) Increased creatinine (new) with reduction of more than 50% in estimated glomerular filtration rate from baseline [ ] viii) Papilledema [ ] ix) Retinal hemorrhage [ ] x) Microangiopathic hemolytic anemia [ ] xi) Seizure [ ] xii) Other significant finding secondary to hypertension [ ] XIV. Complications of transplanted heart indicated by ANY ONE of the following(61): [ ]a) Acute graft rejection requiring inpatient management (eg, intravenous imunosuppression)(62)(63) [ ]b) Acute graft heart failure indicated by ANY ONE of the following(64): [ ] i) Hemodynamic instability [ ] ii) Cardiac arrhythmias of immediate concern [ ] iii) Pulmonary edema that is very severe (eg, mechanical ventilation needed, imminent or likely, need for 100% oxygen to keep oxygen saturation above 90%) [ ] iv) Pulmonary edema that is persistent as indicated by ALL of the following: [ ] 1) New need for oxygen therapy to keep oxygen saturation above 90 % (or increased FiO2 need from baseline) [ ] 2) Has not improved sufficiently with emergency department or observation care IV diuretics or other heart failure treatments[E]. [ ] iv) Altered mental status that is severe or persistent [ ] iv) Increased creatinine (new on laboratory test) with reduction of more than 50% in estimated glomerular filtration rate from baseline [ ] iv) Progressively (ongoing) rising creatinine (known from past laboratory test) with reduction of more than 25% in estimated glomerular filtration rate from baseline [ ] iv) Acute renal failure [ ] iv) Acute peripheral ischemia (eg, examination shows pulseless, cool, mottled, or cyanotic extremity) [ ] iv) Pulmonary artery catheter monitoring needed [ ] iv) Other sign or symptom of heart failure requiring inpatient treatment (ie, too severe or not responsive to outpatient and observation care treatment) [ ]c) Infection requiring inpatient management (eg, Hemodynamic instability, need for intravenous antimicrobial treatment)(66)(67)(68)(69)(70) [ ]d) Cardiac allograft vasculopathy requiring inpatient management (eg evidence of cardiacischemia)(71) [ ]e) Other complication of transplanted heart (eg, stroke, severe pulmonary hypertension, severe valvular dysfunction) requiring inpatient management(72) The original [employer] content created by [employer] has been revised. The portions of the content which have been revised are identified through the use of italic text or in bold, and [facility] has neither reviewed nor approved the modified material. All other unmodified content is copyright [facility]. Please see references footnoted in the original [facility] edition 2017 Admission Criteria Met: Yes
--- NOTE | 2016-09-30 12:10 | Progress Note ---
Assessment and Plan Assessment and plan: Chest pain. Patient to have follow-up with serial cardiac isoenzymes and Lexiscan test. GI bleed. GI consultation pending. Continue IV Protonix. Consider changing anticoagulation. Hypothyroidism. Continue methimazole. Hypertension. Continue antihypertensives medications. Asthma. Table. Continue nebulizer treatments as needed. Seizure disorder. Continue medications. ? Peripheral neuropathy. Start Gabapentin. History Interval history: Patient complains of anterior wall chest pain. Hospitalist Physical - Constitutional Vitals: Temp Pulse Resp BP Pulse Ox 98.9 F 94 H 20 127/70 100 09/30/16 09:07 09/30/16 11:23 09/30/16 11:23 09/30/16 09:07 09/30/16 11:23 General appearance: Present: no acute distress, well-nourished - EENT Eyes: Present: PERRL, EOM intact ENT: hearing intact, clear oral mucosa, dentition normal - Neck Neck: Present: supple, normal ROM - Respiratory Respiratory effort: normal Respiratory: bilateral: CTA - Cardiovascular Rhythm: regular Heart Sounds: Present: S1 & S2. Absent: gallop, rub - Extremities Extremities: no ischemia, No edema, Full ROM - Abdominal General gastrointestinal: soft, non-tender, non-distended, normal bowel sounds - Integumentary Integumentary: Present: clear, warm, dry - Neurologic Neurologic: CNII-XII intact, moves all extremities Results - Labs CBC & Chem 7: 09/29/16 13:08 09/29/16 13:08 Labs: Laboratory Last Values WBC 7.9 K/mm3 (4.5-11.0) 09/29/16 13:08 RBC 5.31 M/mm3 (3.65-5.03) H 09/29/16 13:08 Hgb 13.7 gm/dl (10.1-14.3) 09/29/16 13:08 Hct 42.5 % (30.3-42.9) 09/29/16 13:08 MCV 80 fl (79-97) 09/29/16 13:08 MCH 26 pg (28-32) L 09/29/16 13:08 MCHC 32 % (30-34) 09/29/16 13:08 RDW 14.2 % (13.2-15.2) 09/29/16 13:08 Plt Count 263 K/mm3 (140-440) 09/29/16 13:08 Lymph % (Auto) 43.2 % (13.4-35.0) H 09/29/16 13:08 [place] % (Auto) 9.8 % (0.0-7.3) H 09/29/16 13:08 Eos % (Auto) 0.9 % (0.0-4.3) 09/29/16 13:08 Baso % (Auto) 0.4 % (0.0-1.8) 09/29/16 13:08 Lymph # 3.4 K/mm3 (1.2-5.4) 09/29/16 13:08 [place] # 0.8 K/mm3 (0.0-0.8) 09/29/16 13:08 Eos # 0.1 K/mm3 (0.0-0.4) 09/29/16 13:08 Baso # 0.0 K/mm3 (0.0-0.1) 09/29/16 13:08 Seg Neutrophils % 45.7 % (40.0-70.0) 09/29/16 13:08 Seg Neutrophils # 3.6 K/mm3 (1.8-7.7) 09/29/16 13:08 D-Dimer 460.73 ng/mlDDU (0-234) H 09/29/16 14:09 Sodium 139 mmol/L (137-145) 09/29/16 13:08 Potassium 4.2 mmol/L (3.6-5.0) 09/29/16 13:08 Chloride 102.4 mmol/L (98-107) 09/29/16 13:08 Carbon Dioxide 22 mmol/L (22-30) 09/29/16 13:08 Anion Gap 19 mmol/L 09/29/16 13:08 BUN 13 mg/dL (7-17) 09/29/16 13:08 Creatinine 0.4 mg/dL (0.7-1.2) L 09/29/16 13:08 Estimated GFR > 60 ml/min 09/29/16 13:08 BUN/Creatinine Ratio 32.50 % 09/29/16 13:08 Glucose 106 mg/dL (65-100) H 09/29/16 13:08 Calcium 9.3 mg/dL (8.4-10.2) 09/29/16 13:08 Total Creatine Kinase 62 units/L (30-135) 09/30/16 09:08 CK-MB (CK-2) < 1.0 ng/mL (0.0-4.0) 09/30/16 09:08 CK-MB (CK-2) Rel Index 1.6 (0-4) 09/30/16 09:08 Troponin T < 0.010 ng/mL (0.00-0.029) 09/29/16 19:51 HCG, Qual Negative (Negative) 09/29/16 13:08
[2016-09-30] MEDS: KEPPRA PO SCH ×2 (13:02→21:56)
--- NOTE | 2016-09-30 13:23 | Gastroenterology Consultation ---
History of Present Illness - Reason for Consult Consult date: 09/30/16 GI bleeding Requesting physician: MATT ESTEBAN - History of Present Illness Ms. John is a 36 y/o female admitted with multiple complaints including CP, weakness, Vaginal and Rectal bleeding as well as vomiting blood. She was started on Eliquis 7 months ago for PE. She states she has a hx of pericarditis. Her Rectal bleeding started over a week ago along with vomiting BRB. No fever or chills but she reports CP. No weight loss. Troponins are negative x 2. H/H WNL on 09/29/16. Past History Past Medical History: hyperthyroidism, hypertension, pulmonary embolism, seizures, other ( pericarditis, Graves disease, heart murmur) Past Surgical History: No surgical history Social history: no significant social history Family history: no significant family history Medications and Allergies Allergies Allergy/AdvReac Type Severity Reaction Status Date / Time garlic Allergy Unknown Verified 09/29/16 12:56 ibuprofen [From Motrin] Allergy Unknown Verified 09/29/16 12:56 peanut oil Allergy Unknown Verified 09/29/16 12:56 Penicillins Allergy Unknown Verified 09/29/16 12:56 Home Medications Medication Instructions Recorded Confirmed Last Taken Type Pantoprazole [Protonix TAB] 40 mg PO BID #30 tablet 07/21/16 09/29/16 09/28/16 Rx Xanax TAB 1 mg PO BID 09/18/16 09/29/16 09/28/16 History ALBUTEROL NEB's [Proventil 0.083% 2.5 mg IH Q4HRT PRN #30 nebu 09/23/16 Unknown Rx NEBS] Eliquis 0.5 mg PO BID #30 09/23/16 09/29/16 09/28/16 Rx Methimazole [Tapazole] 10 mg PO Q8HR #30 tablet 09/23/16 09/29/16 09/28/16 Rx Quetiapine Fumarate [SEROquel XR] 300 mg PO QDAY #30 tab.er.24h 09/23/1609/28/16 Rx SEROquel 100 mg PO DAILY #30 09/23/16 09/29/16 09/28/16 Rx levETIRAcetam [Keppra TAB] 500 mg PO BID #60 tablet 09/23/16 09/29/16 09/28/16 Rx Active Meds: Active Medications Acetaminophen (Tylenol) 650 mg PO Q4H PRN PRN Reason: Pain MILD(1-3)/Fever >100.5/OSEGUERA Last Admin: 09/30/16 05:27 Dose: 650 mg Albuterol (Proventil) 2.5 mg IH Q4H PRN PRN Reason: Shortness Of Breath Alprazolam (Xanax) 1 mg PO BID [facility] Last Admin: 09/30/16 09:20 Dose: 1 mg Bisacodyl (Dulcolax) 10 mg [place] QDAY PRN PRN Reason: Constipation unrelieved by MOM Famotidine (Pepcid) 20 mg IV BID [facility] Last Admin: 09/30/16 09:20 Dose: 20 mg Gabapentin (Neurontin) 100 mg PO Q8HR [facility] Dextrose/Sodium Chloride (D5ns) 1,000 mls @ 75 mls/hr IV DIRECT [facility] Last Admin: 09/30/16 03:17 Dose: 75 mls/hr Levetiracetam (Keppra) 500 mg PO BID [facility] Last Admin: 09/30/16 13:02 Dose: 500 mg Magnesium Hydroxide (Milk Of Magnesia) 30 ml PO Q4H PRN PRN Reason: Constipation Last Admin: 09/30/16 05:27 Dose: 30 ml Methimazole (Tapazole) 10 mg PO Q8H [facility] Last Admin: 09/30/16 09:20 Dose: 10 mg Miscellaneous Medication (Quetiapine Fumarate [Seroquel Xr]) 300 mg PO QDAY [facility] Morphine Sulfate (Morphine) 2 mg IV Q4H PRN PRN Reason: Pain, Moderate (4-6) Last Admin: 09/30/16 09:21 Dose: 2 mg Ondansetron HCl (Zofran) 4 mg IV Q8H PRN PRN Reason: N/V unrelieved by Reglan Last Admin: 09/30/16 05:29 Dose: 4 mg Pantoprazole Sodium (Protonix) 40 mg PO BID [facility] Last Admin: 09/30/16 09:20 Dose: 40 mg Review of Systems - Review of Systems All systems: negative Constitutional: weakness Cardiovascular: chest pain Respiratory: cough Gastrointestinal: nausea, vomiting, BRBPR Neurological: weakness Exam - Constitutional Vital Signs: Temp Pulse Resp BP Pulse Ox 98.9 F 94 H 20 127/70 100 09/30/16 09:07 09/30/16 11:23 09/30/16 11:23 09/30/16 09:07 09/30/16 11:23 General appearance: no acute distress - EENT Eyes: EOM intact ENT: hearing intact - Neck Neck: supple - Respiratory Respiratory: bilateral: CTA - Cardiovascular Rhythm: regular Heart Sounds: Present: S1 & S2 Extremities: pulses intact, No edema - Gastrointestinal General gastrointestinal: Present: soft, non-tender, normal bowel sounds - Integumentary Integumentary: Present: warm, dry - Neurologic Neurological: alert and oriented x3 - Psychiatric Psychiatric: appropriate mood/affect, cooperative - Labs CBC & Chem 7: 09/29/16 13:08 09/29/16 13:08 Lab Results: Laboratory Results - last 24 hr 09/29/16 09/29/16 09/30/16 15:34 19:51 09:08 Total Creatine Kinase 62 CK-MB (CK-2) < 1.0 CK-MB (CK-2) Rel Index 1.6 Troponin T < 0.010 < 0.010 Assessment and Plan 1. BRBPR 2. Hematemesis per pt report 3. PE on Eliquis diagnosed this year 4. Chest Pain -In consideration of the patient on Eliquis, ideally she will need EGD and colonoscopy to rule out bleeding source from the GI tract. -Eliquis currently on hold, LD 09/29/16 -H/H stable yesterday, CBC pending today -Will discuss with Dr. Zurita regarding timing of E/C. -Further recommendations to follow.
[2016-09-30] MEDS: NEURONTIN PO SCH ×3 (14:06→21:56)
[2016-09-30 14:23] LABS: Hematocrit 41.3 % (30.3-42.9); Hemoglobin 13.3 gm/dl (10.1-14.3); Mean Corpuscular HGB Conc 32 % (30-34); Mean Corpuscular Volume 80 fl (79-97); Platelet Count 245 K/mm3 (140-440); Red Blood Count 5.19 M/mm3 (3.65-5.03)
[2016-09-30 14:40] LABS: Creatine Kinase 77 units/L (30-135)
[2016-09-30 14:42] LABS: Creatine Kinase MB < 1.0 ng/mL (0.0-4.0)
[2016-09-30 14:53] LABS: Erythrocyte Sedimentation Rate 22 mm/Hr (0-20)
[2016-09-30 14:54] LABS: Mean Corpuscular Hemoglobin 26 pg (28-32)
[2016-10-01] MEDS: NEURONTIN PO SCH (06:37)
[2016-10-01] MEDS: TAPAZOLE PO SCH ×2 (06:37→13:39)
[2016-10-01] MEDS ORDERED: MORPHINE IM PRN ×2 (06:51→06:52)
[2016-10-01] MEDS ORDERED: ZOFRAN IM PRN (06:51)
[2016-10-01] MEDS ORDERED: MORPHINE IV PRN (06:52)
[2016-10-01 10:30] VITALS: BP 108/71
--- NOTE | 2016-10-01 11:49 | Progress Note ---
Assessment and Plan Assessment and plan: Chest pain. Patient with recent cardiac workup that appears to be negative. Cardiology consultation pending. ?GI bleed. Nursing reports no evidence of hematemesis or rectal bleeding identified or documented. GI following. I discussed the case with Dr. Gray. Check Hemoccult stool. Continue IV Protonix. Consider changing anticoagulation. Hypothyroidism. Continue methimazole. Hypertension. Continue antihypertensives medications. Asthma. Stable. Continue nebulizer treatments as needed. Seizure disorder. Continue medications. ? Peripheral neuropathy. Patient reports an intolerance to gabapentin. Start Lyrica. Disposition. If cleared by cardiology and GI will anticipate discharge soon History Interval history: Patient reports old blood that she can smell from her chest wall. Patient also complains of bilateral hand and foot numbness Hospitalist Physical - Constitutional Vitals: Temp Pulse Resp BP Pulse Ox 98.2 F 86 18 108/71 99 10/01/16 05:00 10/01/16 08:30 10/01/16 08:30 10/01/16 08:30 10/01/16 10:00 General appearance: Present: no acute distress, well-nourished - EENT Eyes: Present: PERRL, EOM intact ENT: hearing intact, clear oral mucosa, dentition normal - Neck Neck: Present: supple, normal ROM - Respiratory Respiratory effort: normal Respiratory: bilateral: CTA - Cardiovascular Rhythm: regular Heart Sounds: Present: S1 & S2. Absent: gallop, rub - Extremities Extremities: no ischemia, No edema, Full ROM - Abdominal General gastrointestinal: soft, non-tender, non-distended, normal bowel sounds - Integumentary Integumentary: Present: clear, warm, dry - Neurologic Neurologic: CNII-XII intact, moves all extremities Results - Labs CBC & Chem 7: 09/30/16 13:48 09/29/16 13:08 Labs: Laboratory Last Values WBC 7.0 K/mm3 (4.5-11.0) 09/30/16 13:48 RBC 5.19 M/mm3 (3.65-5.03) H 09/30/16 13:48 Hgb 13.3 gm/dl (10.1-14.3) 09/30/16 13:48 Hct 41.3 % (30.3-42.9) 09/30/16 13:48 MCV 80 fl (79-97) 09/30/16 13:48 MCH 26 pg (28-32) L 09/30/16 13:48 MCHC 32 % (30-34) 09/30/16 13:48 RDW 14.0 % (13.2-15.2) 09/30/16 13:48 Plt Count 245 K/mm3 (140-440) 09/30/16 13:48 Lymph % (Auto) 43.2 % (13.4-35.0) H 09/29/16 13:08 Starke % (Auto) 9.8 % (0.0-7.3) H 09/29/16 13:08 Eos % (Auto) 0.9 % (0.0-4.3) 09/29/16 13:08 Baso % (Auto) 0.4 % (0.0-1.8) 09/29/16 13:08 Lymph # 3.4 K/mm3 (1.2-5.4) 09/29/16 13:08 Starke # 0.8 K/mm3 (0.0-0.8) 09/29/16 13:08 Eos # 0.1 K/mm3 (0.0-0.4) 09/29/16 13:08 Baso # 0.0 K/mm3 (0.0-0.1) 09/29/16 13:08 Seg Neutrophils % 45.7 % (40.0-70.0) 09/29/16 13:08 Seg Neutrophils # 3.6 K/mm3 (1.8-7.7) 09/29/16 13:08 ESR 22 mm/Hr (0-20) 09/30/16 13:48 D-Dimer 460.73 ng/mlDDU (0-234) H 09/29/16 14:09 Sodium 139 mmol/L (137-145) 09/29/16 13:08 Potassium 4.2 mmol/L (3.6-5.0) 09/29/16 13:08 Chloride 102.4 mmol/L (98-107) 09/29/16 13:08 Carbon Dioxide 22 mmol/L (22-30) 09/29/16 13:08 Anion Gap 19 mmol/L 09/29/16 13:08 BUN 13 mg/dL (7-17) 09/29/16 13:08 Creatinine 0.4 mg/dL (0.7-1.2) L 09/29/16 13:08 Estimated GFR > 60 ml/min 09/29/16 13:08 BUN/Creatinine Ratio 32.50 % 09/29/16 13:08 Glucose 106 mg/dL (65-100) H 09/29/16 13:08 Calcium 9.3 mg/dL (8.4-10.2) 09/29/16 13:08 Total Creatine Kinase 77 units/L (30-135) 09/30/16 13:48 CK-MB (CK-2) < 1.0 ng/mL (0.0-4.0) 09/30/16 13:48 CK-MB (CK-2) Rel Index 1.2 (0-4) 09/30/16 13:48 Troponin T < 0.010 ng/mL (0.00-0.029) 09/29/16 19:51 HCG, Qual Negative (Negative) 09/29/16 13:08
[2016-10-01] MEDS ORDERED: XANAX PO SCH (12:00)
[2016-10-01] MEDS: PROTONIX PO SCH (12:27)
--- NOTE | 2016-10-01 13:22 | Progress Note ---
Assessment and Plan 1. Hematemesis - with normal H/H, normal BUN/Cr, and no evidence of ajit blood in stool. Discussed EGD with pt, to look for probable Leidy-Darby tear , etc. Pt states she only wants throat evaluated, and does not want her stomach looked at. States she is seeing streaks of blood in emesis. Concerned more about her thyroid. - advised her that I would do EGD to assess for UGI source of bleed, and look into stomach for PUD and M-W tear. Advised her that I do not do ENT evaluations. Pt declined EGD. - no evidence of significant GI bleed source. - did recommend empiric PPI for now 2. Rectal bleed - no evidence. Rectal showed no mass or blood. - would not do colonoscopy at present. Will sign off since pt not interested in GI evaluation. Subjective Date of service: 10/01/16 Interval history: Pt complains of ongoing L sided burning chest pain. States she last saw BRB in stool 2 days ago. No hematemesis today. Objective - Constitutional Vitals: Vital Signs - 12hr 10/01/16 10/01/16 10/01/16 05:00 07:04 08:30 Temperature 98.2 F Pulse Rate 99 H 86 Respiratory 18 18 18 Rate Respiratory Rate [ Generalized] Blood Pressure 118/74 108/71 O2 Sat by Pulse 97 98 Oximetry 10/01/16 10:00 Temperature Pulse Rate Respiratory Rate Respiratory 18 Rate [ Generalized] Blood Pressure O2 Sat by Pulse 99 Oximetry General appearance: Present: no acute distress, other (upset with nurse) - EENT Eyes: PERRL, EOM intact ENT: hearing intact - Gastrointestinal General gastrointestinal: Present: soft, non-tender Rectal Exam: normal rectal tone, other (soft yellow stool, no evidence of ajit blood) - Labs CBC & Chem 7: 09/30/16 13:48 09/29/16 13:08 Labs: Abnormal lab results 09/30/16 Range/Units 13:48 RBC 5.19 H (3.65-5.03) M/mm3 MCH 26 L (28-32) pg
--- NOTE | 2016-10-01 13:26 | Discharge Summary ---
Providers - Providers Date of Admission: 09/29/16 14:54 Date of discharge: 10/01/16 Attending physician: MATT ESTEBAN 09/30/16 02:05 Consult to Physician [CONS] Routine Consulting Provider: PAZ CALHOUN Reason For Exam: Gi bleed Place consult to:: gi Notified:: office Phone number called:: [phone] Was contact made?: Yes If yes, spoke with:: george Time called:: 09:26 10/01/16 06:47 Consult to PICC Line RN [CONS] Stat Reason For Exam: DIFFICULT STICK Type Line:: Midline 10/01/16 08:42 Consult to Physician [CONS] Routine Consulting Provider: DEVIKA MELO Reason For Exam: cp Place consult to:: Dr. Melo Notified:: Polly RN Phone number called:: Was contact made?: Yes If yes, spoke with:: [facility]wering service Time called:: 10:21 Primary care physician: [facility] Hospitalization Reason for admission: GI bleed Condition: Stable Hospital course: Ms. John is a 36 y/o female admitted with multiple complaints including CP, weakness, Vaginal and Rectal bleeding as well as vomiting blood. She was started on Eliquis 7 months ago for PE. She states she has a hx of pericarditis. Her Rectal bleeding started over a week ago along with vomiting BRB. No fever or chills but she reports CP. No weight loss. Troponins are negative x 3. H/H WNL on 09/29/16 at 13.7 and 42.5 respectively. Repeat H&H done hospitalization remained stable. Patient had no evidence of any active bleeding that was documented or seen as reported by nursing. Patient was seen by cardiology and GI consultation. Cardiology felt that the CP was not related to acute coronary syndrome. Patient does have a history of pericarditis. Dampproofer reports that EKG may have some nonspecific changes related to this diagnosis. Otherwise, echocardiogram was obtained and did not reveal any pericardial effusion. Patient was also seen by gastroenterology who performed a rectal exam that revealed heme-negative stool. GI did not believe patient warranted upper or lower endoscopy. Therefore, patient will be discharged home. Patient will receive prescription for Medrol Dosepak and anti- inflammatories for the pericarditis. Patient should follow up with primary care physician. Dedicated discharge time 35 minutes. Disposition: DC-01 TO HOME OR SELFCARE Time spent for discharge: 35 Core Measure Documentation - Palliative Care Palliative Care/ Comfort Measures: Not Applicable - Core Measures Any of the following diagnoses?: none Exam - Constitutional Vitals: Temp Pulse Resp BP Pulse Ox 98.2 F 86 18 108/71 99 10/01/16 05:00 10/01/16 08:30 10/01/16 10:00 10/01/16 08:30 10/01/16 10:00 General appearance: Present: no acute distress, well-nourished - EENT Eyes: Present: PERRL ENT: hearing intact, clear oral mucosa - Neck Neck: Present: supple, normal ROM - Respiratory Respiratory effort: normal Respiratory: bilateral: CTA - Cardiovascular Heart Sounds: Present: S1 & S2. Absent: rub, click - Extremities Extremities: pulses symmetrical, No edema Peripheral Pulses: within normal limits - Abdominal General gastrointestinal: Present: soft, non-tender, non-distended, normal bowel sounds Female genitourinary: Present: normal - Integumentary Integumentary: Present: clear, warm, dry - Musculoskeletal Musculoskeletal: gait normal, strength equal bilaterally - Psychiatric Psychiatric: appropriate mood/affect, intact judgment & insight - Neurologic Neurologic: CNII-XII intact, moves all extremities Plan Activity: no restrictions Weight Bearing Status: Full Weight Bearing Diet: regular Follow up with: PRIMARY CAREMD [Primary Care Provider] - 3-5 Days VIOLET WHITT MD [Staff Physician] - 7 Days DEVIKA MELO MD [Staff Physician] - 7 Days Prescriptions: levETIRAcetam [Keppra TAB] 500 mg PO BID #60 tablet Methimazole [Tapazole] 10 mg PO Q8HR #30 tablet Pantoprazole [Protonix TAB] 40 mg PO BID #30 tablet Pregabalin [Lyrica] 100 mg PO QAM #30 capsule Quetiapine Fumarate [SEROquel XR] 300 mg PO QDAY #30 tab.er.24h SEROquel 100 mg PO DAILY #30 Xanax TAB 1 mg PO BID #5
--- NOTE | 2016-10-01 13:31 | Consultation ---
History of Present Illness Consult date: 10/01/16 Consult reason: chest pain History of present illness: 36 YO woman with h/o hyperthyroidism, prior pulmonary embolism, preicarditis, and seizure disorder who presented to ED with reports of diffuse bleeding ( vaginal bleeding, hematemesis) and sharp left sided chest pain. She reports she has had similar chest pains in the past and been diagnosed with pericarditis about a year ago at [facility]. She reports her current chest pain is a stabbing type of sensation in her left chest which is worse with deep breath and better when she lays down. There is no exertional component to her symptoms. Her history of prior PE is somewhat vague and she thinks it was diagnosed about 8 months ago. She admits to smoking marijuana chronically and tobacco occasionally Prior cardiac evaluation has included echocardiogram and MPI in 06/2016 during hospitalization at this facility. MPI on 07/20/16 revealed no significant ischemia. Echocardiogram on 07/18/16 revealed normal EF of 50-55%, no significant valvular lesions. ECG during current hospitalization reveals sinus tachycardia, right axis deviation, diffuse ST elevation suggestive of early repolarization vs. pericarditis. Past History Past Medical History: hyperthyroidism, hypertension, pulmonary embolism, seizures, other ( pericarditis, Graves disease, heart murmur) Past Surgical History: No surgical history Social history: no significant social history Family history: no significant family history Medications and Allergies Allergies Allergy/AdvReac Type Severity Reaction Status Date / Time garlic Allergy Unknown Verified 09/29/16 12:56 ibuprofen [From Motrin] Allergy Unknown Verified 09/29/16 12:56 peanut oil Allergy Unknown Verified 09/29/16 12:56 Penicillins Allergy Unknown Verified 09/29/16 12:56 Home Medications Medication Instructions Recorded Confirmed Last Taken Type Eliquis 0.5 mg PO BID #30 09/23/16 09/29/16 09/28/16 Rx Ketorolac [Toradol] 10 mg PO Q6H PRN #8 tablet 10/01/16 Unknown Rx Methimazole [Tapazole] 10 mg PO Q8HR #30 tablet 10/01/16 Unknown Rx Pantoprazole [Protonix TAB] 40 mg PO BID #30 tablet 10/01/16 Unknown Rx Pregabalin [Lyrica] 100 mg PO QAM #30 capsule 10/01/16 Unknown Rx Quetiapine Fumarate [SEROquel XR] 300 mg PO QDAY #30 tab.er.24h 10/01/16 Unknown Rx SEROquel 100 mg PO DAILY #30 10/01/16 Unknown Rx Xanax TAB 1 mg PO BID #5 10/01/16 Unknown Rx levETIRAcetam [Keppra TAB] 500 mg PO BID #60 tablet 10/01/16 Unknown Rx methylPREDNISolone [Medrol] 4 mg PO QAM #1 tab.ds.pk 10/01/16 Unknown Rx Active Meds: Active Medications Acetaminophen (Tylenol) 650 mg PO Q4H PRN PRN Reason: Pain MILD(1-3)/Fever >100.5/OSEGUERA Last Admin: 09/30/16 17:38 Dose: 650 mg Albuterol (Proventil) 2.5 mg IH Q4H PRN PRN Reason: Shortness Of Breath Alprazolam (Xanax) 1 mg PO Q8H [facility] Bisacodyl (Dulcolax) 10 mg [place] QDAY PRN PRN Reason: [place] [facility] [place]xtrose/Sodium Chloride (D5ns) 1,000 mls @ 75 mls/hr IV DIRECT [facility] Last Admin: 09/30/16 03:17 Dose: 75 mls/hr Levetiracetam (Keppra) 500 mg PO BID [facility] Magnesium Hydroxide (Milk Of Magnesia) 30 ml PO Q4H PRN PRN Reason: Constipation Last Admin: 09/30/16 05:27 Dose: 30 ml Methimazole (Tapazole) 10 mg PO Q8H [facility] Last Admin: 10/01/16 06:37 Dose: Not Given Morphine Sulfate (Morphine) 2 mg IM Q4H PRN PRN Reason: Pain, Moderate (4-6) Last Admin: 10/01/16 07:04 Dose: 2 mg Morphine Sulfate (Morphine) 2 mg IV Q4H PRN PRN Reason: Pain, Moderate (4-6) Ondansetron HCl (Zofran) 4 mg IV Q8H PRN PRN Reason: N/V unrelieved by Reglan Last Admin: 09/30/16 21:54 Dose: 4 mg Ondansetron HCl (Zofran) 4 mg IM Q8H PRN PRN Reason: Nausea And Vomiting Pantoprazole Sodium (Protonix) 40 mg PO BID [facility] Last Admin: 10/01/16 12:27 Dose: Not Given Pregabalin 25 mg/ Pregabalin (75 mg) 100 mg PO QAM [facility] Quetiapine Fumarate (Seroquel) 300 mg PO QHS [facility] Last Admin: 09/30/16 23:30 Dose: 300 mg Quetiapine Fumarate (Seroquel) 100 mg PO QAM [facility] Review of Systems All systems: negative (per hpi) Physical Examination Vital Signs Pulse Ox 100 09/29/16 12:42 Last Vital Signs Temp 98.2 F 10/01/16 05:00 Pulse 86 10/01/16 08:30 Resp 18 10/01/16 10:00 BP 108/71 10/01/16 08:30 Pulse Ox 99 10/01/16 10:00 General appearance: no acute distress HEENT: Positive: PERRL, EOMI Cardiac: Positive: Reg Rate and Rhythm Lungs: Positive: clear to auscultation, Normal Breath Sounds Neuro: Positive: Grossly Intact Abdomen: Positive: Soft, Active Bowel Sounds Extremities: Absent: edema Results 09/30/16 13:48 09/29/16 13:08 Cardiac Enzymes 09/30/16 Range/Units 13:48 CK-MB (CK-2) < 1.0 (0.0-4.0) ng/mL CBC 09/30/16 Range/Units 13:48 WBC 7.0 (4.5-11.0) K/mm3 RBC 5.19 H (3.65-5.03) M/mm3 Hgb 13.3 (10.1-14.3) gm/dl Hct 41.3 (30.3-42.9) % Plt Count 245 (140-440) K/mm3 Assessment and Plan Atypical chest pain IA has been ruled out and no significant ischemia based on MPI 07/20/16 Description and ECG suggestive of pericarditis - pt reports she has been on NSAIDs and they have not been effective. H/O Pulmonary Embolism per pt Hematemesis Vaginal bleeding. Recommend: Trial of course of steroids. If needed, she is cleared to proceed with GI procedure (endoscopy/colonoscopy) from cardiac perspective. Re-assess need and duration of anticoagulation for PE given recurrent bleeding.
[2016-10-01] MEDS ORDERED: KEPPRA PO SCH (22:00)
[2016-10-02] MEDS ORDERED: LYRICA 25 MG, LYRICA 75 MG PO SCH (10:00)
== END 2016-10-01 13:30 | disposition home or self-care (01) | DRG 378 ==
LOC: ED 12:49 → 4A 14:54
PROVIDERS: ADMIT Internal Medicine; ATTEND Hospitalist
DX: K92.2 Gastrointestinal hemorrhage, unspecified (principal); I31.9 Disease of pericardium, unspecified; I10 Essential (primary) hypertension; F41.9 Anxiety disorder, unspecified; E05.00 Thyrotoxicosis with diffuse goiter without thyrotoxic crisis or storm; J45.909 Unspecified asthma, uncomplicated; G40.909 Epilepsy, unspecified, not intractable, without status epilepticus; Z88.6 Allergy status to analgesic agent; Z91.018 Allergy to other foods; Z88.0 Allergy status to penicillin; Z91.010 Allergy to peanuts; Z86.711 Personal history of pulmonary embolism
CPT/HCPCS: 36415; 71010; 80048; 82550; 82553; 84484; 84703; 85025; 85027; 85379; 85652; 93005; 93010; 93306; 94760; 96361; 96374; J1170; J1885; J2270; J2405; J7030; J7042

== ENCOUNTER 2016-11-13 22:38 | Emergency (ER) | payer MEDICAID ==
[2016-11-14 00:09] LABS: Basophils % (Auto) 0.7 % (0.0-1.8); Eosinophils % (Auto) 1.6 % (0.0-4.3); Hematocrit 40.8 % (30.3-42.9); Hemoglobin 13.1 gm/dl (10.1-14.3); Mean Corpuscular HGB Conc 32 % (30-34); Mean Corpuscular Volume 80 fl (79-97); Platelet Count 327 K/mm3 (140-440); Red Blood Count 5.14 M/mm3 (3.65-5.03); Red Cell Distribution Width 14.4 % (13.2-15.2); White Blood Count 10.8 K/mm3 (4.5-11.0)
[2016-11-14 00:15] LABS: Mean Corpuscular Hemoglobin 26 pg (28-32)
[2016-11-14 00:18] LABS: Chloride 103.6 mmol/L (98-107); Potassium 4.2 mmol/L (3.6-5.0); Sodium 139 mmol/L (137-145)
[2016-11-14 00:19] LABS: BUN/Creatinine Ratio 24.28; Blood Urea Nitrogen 17 mg/dL (7-17); Carbon Dioxide 21 mmol/L (22-30); Glucose 99 mg/dL (65-100)
[2016-11-14 00:22] LABS: INR 0.97 (0.87-1.13); Partial Thromboplastin Time 24.7 Sec. (24.2-36.6)
[2016-11-14 00:34] LABS: Anion Gap 19 mmol/L
[2016-11-14] MEDS ORDERED: MOTRIN ONE (05:30)
--- NOTE | 2016-11-14 06:17 | Emergency Department Report ---
ED Chest Pain HPI - General Chief Complaint: Chest Pain Stated Complaint: CHEST PAIN,FAINTING,VOMITING Time Seen by Provider: 11/14/16 05:59 Source: patient Mode of arrival: Ambulatory Limitations: No Limitations - History of Present Illness Initial Comments: 36-year-old female here with complaint of chest and throat pain. Patient presents to this emergency department several times with similar symptoms in the past. States she syncopized once today. Complains of pain in the chest doesn't radiate. She does have some throat discomfort and states that she needs to have her thyroid removed. She has had the pain in her chest for a while. It does not radiate. Addition she's had pain in her throat for a while and does not radiate. She does have some nausea and vomiting and states that she's having a difficult time eating. She's been admitted recently for workups for this in the past. -: Gradual Onset: during rest, during exertion Pain Location: substernal Pain Radiation: none Quality: tightness Consistency: constant Improves With: nothing Worsens With: nothing Other Symptoms: denies: cough, fever, syncope, rash, acid taste in mouth, leg swelling, palpitations, burping Treatments Prior to Arrival: none - Related Data Home Medications Medication Instructions Recorded Confirmed Last Taken ALPRAZolam [Xanax TAB] 0.25 mg PO BID PRN 11/05/16 11/14/16 11/13/16 Previous Rx's Medication Instructions Recorded Last Taken Type Eliquis 5 mg PO BID #30 11/07/16 11/13/16 Rx Methimazole [Tapazole] 10 mg PO Q8HR #30 tablet 11/07/16 11/13/16 Rx Pantoprazole [Protonix TAB] 40 mg PO BID #30 tablet 11/07/16 11/13/16 Rx Pregabalin [Lyrica] 100 mg PO QAM #30 capsule 11/07/16 11/13/16 Rx Propranolol LA [Inderal LA] 60 mg PO Q12H #60 capsule 11/07/16 11/13/16 Rx Quetiapine Fumarate [SEROquel XR] 300 mg PO QHS #20 tab.er.24h 11/07/16 Rx SEROquel 100 mg PO DAILY #20 11/07/16 11/13/16 Rx Allergies Allergy/AdvReac Type Severity Reaction Status Date / Time garlic Allergy Unknown Verified 09/29/16 12:56 peanut oil Allergy Unknown Verified 09/29/16 12:56 Penicillins Allergy Unknown Verified 09/29/16 12:56 Heart Score - HEART Score History: Slightly suspicious EKG: Normal Age: < 45 Risk factors: No known risk factors Troponin: < normal limit HEART Score: 0 - Critical Actions Critical Actions: 0-3 pts:0.9-1.7%risk of adverse cardiac event.Candidate for discharge ED Review of Systems ROS: Stated complaint: CHEST PAIN,FAINTING,VOMITING Other details as noted in HPI Comment: All other systems reviewed and negative Constitutional: malaise. denies: chills, fever Eyes: denies: vision change ENT: denies: ear pain, throat pain Respiratory: denies: cough, shortness of breath, wheezing Cardiovascular: chest pain. denies: palpitations, dyspnea on exertion Endocrine: no symptoms reported Gastrointestinal: denies: abdominal pain, nausea, diarrhea Genitourinary: denies: urgency, dysuria, discharge Musculoskeletal: denies: back pain, joint swelling, arthralgia Skin: denies: rash, lesions Neurological: denies: headache, weakness, paresthesias Psychiatric: denies: anxiety, depression Hematological/Lymphatic: denies: easy bleeding, easy bruising ED Past Medical Hx - Past Medical History Previous Medical History?: Yes Hx Hypertension: Yes Hx CVA: No Hx Heart Attack/AMI: No (normal stress 10-31-16) Hx Congestive Heart Failure: No Hx Diabetes: No Hx Deep Vein Thrombosis: Yes Hx Pulmonary Embolism: Yes Hx GERD: Yes Hx Liver Disease: No Hx Renal Disease: No Hx Sickle Cell Disease: No Hx Arthritis: No Hx Headaches / Migraines: No Hx Seizures: Yes Hx Kidney Stones: No Hx Psychiatric Treatment: Yes (anxiety) Hx Asthma: No Hx COPD: No Hx Tuberculosis: No Hx Dementia: No Hx HIV: No Additional medical history: pericarditis, pt states hyperthyroidism, thyroid storm, PE x 2, Graves Disease, heart murmur, seizures; PE dx on rt lung May 2016--on Eliquis - Surgical History Past Surgical History?: No - Family History Family history: no significant - Social History Smoking Status: Never Smoker Substance Use Type: None - Medications Home Medications: Home Medications Medication Instructions Recorded Confirmed Last Taken Type ALPRAZolam [Xanax TAB] 0.25 mg PO BID PRN 11/05/16 11/14/16 11/13/16 History Eliquis 5 mg PO BID #30 11/07/16 11/14/16 11/13/16 Rx Methimazole [Tapazole] 10 mg PO Q8HR #30 tablet 11/07/16 11/14/16 11/13/16 Rx Pantoprazole [Protonix TAB] 40 mg PO BID #30 tablet 11/07/16 11/14/16 11/13/16 Rx Pregabalin [Lyrica] 100 mg PO QAM #30 capsule 11/07/16 11/14/16 11/13/16 Rx Propranolol LA [Inderal LA] 60 mg PO Q12H #60 capsule 11/07/16 11/14/16 Rx Quetiapine Fumarate [SEROquel XR] 300 mg PO QHS #20 tab.er.24h 11/07/1611/12/16 Rx SEROquel 100 mg PO DAILY #20 11/07/16 11/14/16 11/13/16 Rx ED Physical Exam - General Limitations: No Limitations General appearance: alert, in no apparent distress - Head Head exam: Present: atraumatic, normocephalic - Eye Eye exam: Present: normal appearance - ENT ENT exam: Present: mucous membranes moist - Neck Neck exam: Present: normal inspection. Absent: lymphadenopathy, thyromegaly - Respiratory Respiratory exam: Present: normal lung sounds bilaterally. Absent: respiratory distress, wheezes, rales - Cardiovascular Cardiovascular Exam: Present: regular rate, normal rhythm, normal heart sounds. Absent: systolic murmur, diastolic murmur, rubs, gallop - GI/Abdominal GI/Abdominal exam: Present: soft, normal bowel sounds. Absent: distended, tenderness - Extremities Exam Extremities exam: Present: normal inspection - Back Exam Back exam: Present: normal inspection - Neurological Exam Neurological exam: Present: alert, oriented X3 - Psychiatric Psychiatric exam: Present: normal affect, normal mood - Skin Skin exam: Present: warm, dry, intact, normal color. Absent: rash ED Course Vital Signs 11/13/16 11/14/16 11/14/16 23:26 04:03 04:31 Temperature 98.6 F Pulse Rate 78 79 Respiratory 27 H 17 Rate Blood Pressure 112/67 O2 Sat by Pulse 100 99 Oximetry 11/14/16 11/14/16 11/14/16 05:00 05:32 06:00 Temperature Pulse Rate 76 Respiratory 21 Rate Blood Pressure 112/67 114/75 112/63 O2 Sat by Pulse 100 93 Oximetry 11/14/16 11/14/16 11/14/16 06:30 07:00 07:37 Temperature Pulse Rate 68 79 Respiratory 17 24 18 Rate Blood Pressure 114/65 114/65 O2 Sat by Pulse 100 100 100 Oximetry GENOVEVA score - Genoveva Score Age > 65: (0) No Aspirin use within the Past 7 Days: (0) No 3 or more CAD Risk Factors: (0) No 2 or more Angina events in past 24 hrs: (0) No Known CAD with more than 50% Stenosis: (0) No Elevated Cardiac Markers: (0) No ST Deviation Greater than 0.5mm: (0) No GENOVEVA Score: 0 ED Medical Decision Making - Lab Data Result diagrams: 11/13/16 23:45 11/13/16 23:45 Laboratory Results - last 24 hr 11/13/16 11/13/16 11/13/16 23:45 23:45 23:45 WBC 10.8 RBC 5.14 H Hgb 13.1 Hct 40.8 MCV 80 MCH 26 L MCHC 32 RDW 14.4 Plt Count 327 Lymph % (Auto) 35.7 H Todd % (Auto) 8.0 H Eos % (Auto) 1.6 Baso % (Auto) 0.7 Lymph # 3.9 Todd # 0.9 H Eos # 0.2 Baso # 0.1 Seg Neutrophils % 54.0 Seg Neutrophils # 5.8 PT 12.8 INR 0.97 APTT 24.7 D-Dimer 202.73 Sodium 139 Potassium 4.2 Chloride 103.6 Carbon Dioxide 21 L Anion Gap 19 BUN 17 Creatinine 0.7 Estimated GFR > 60 BUN/Creatinine Ratio 24.28 Glucose 99 Calcium 9.0 Troponin T < 0.010 11/14/16 02:26 WBC RBC Hgb Hct MCV MCH MCHC RDW Plt Count Lymph % (Auto) Todd % (Auto) Eos % (Auto) Baso % (Auto) Lymph # Todd # Eos # Baso # Seg Neutrophils % Seg Neutrophils # PT INR APTT D-Dimer Sodium Potassium Chloride Carbon Dioxide Anion Gap BUN Creatinine Estimated GFR BUN/Creatinine Ratio Glucose Calcium Troponin T < 0.010 - EKG Data -: EKG Interpreted by Me - EKG Data 11/14/16 06:16 Sinus rate 85 normal axis normal intervals no ST-T wave changes - Medical Decision Making 36-year-old female well-known to this emergency Department multiple visits in the past year with chest pain and for pain. This is similar to the presentation she's had recently. Plan check labs EKG chest x-ray. Plan to treat with IV fluids. Patient feeling slightly better after IV fluids plan to discharge home. Chest x -ray is unremarkable. Portions of this chart were dictated with dictation software. There may be dictation errors contained within this note. Critical care attestation.: If time is entered above; I have spent that time in minutes in the direct care of this critically ill patient, excluding procedure time. ED Disposition Clinical Impression: Chest pain Disposition: DC-01 TO HOME OR SELFCARE Is pt being admited?: No Condition: Stable Instructions: Chest Pain (ED) Referrals: PRIMARY CARE, [Primary Care Provider] - 3-5 Days
[2016-11-14] MEDS ORDERED: NACL 0.9% 1000 ML 1,000 ML IV ONE (06:19)
[2016-11-14] MEDS ORDERED: MOTRIN PO ONE (06:48)
--- NOTE | 2016-11-14 08:21 | XRay Report ---
PORTABLE CHEST INDICATION: Chest pain. COMPARISON: 11/08/2016 FINDINGS: Portable, frontal chest radiograph demonstrate stable cardiomediastinal silhouette. Slight left retrocardiac juxtaphrenic peak. Otherwise clear lungs. Intact bones. EKG leads. CONCLUSION: No acute chest process or significant interval change, as described. Thank you for the opportunity to participate in this patient's care.
[2016-11-14 08:47] VITALS: BP 107/70
== END 2016-11-14 08:52 | disposition home or self-care (01) ==
LOC: ED 22:38
DX: R07.9 Chest pain, unspecified (principal); R07.0 Pain in throat; R11.2 Nausea with vomiting, unspecified; I10 Essential (primary) hypertension; K21.9 Gastro-esophageal reflux disease without esophagitis; Z88.0 Allergy status to penicillin; Z91.018 Allergy to other foods
CPT/HCPCS: 36415; 71010; 80048; 84484; 85025; 85379; 85610; 85730; 93005; 93010; 96360; 99284; J7030

== ENCOUNTER 2017-04-09 19:15 | Emergency (ER) | payer MEDICAID ==
[2017-04-09 20:01] LABS: Hematocrit 37.7 % (30.3-42.9); Hemoglobin 11.9 gm/dl (10.1-14.3); Mean Corpuscular HGB Conc 32 % (30-34); Mean Corpuscular Volume 79 fl (79-97); Platelet Count 371 K/mm3 (140-440); Red Blood Count 4.75 M/mm3 (3.65-5.03); Red Cell Distribution Width 15.3 % (13.2-15.2)
[2017-04-09 20:12] LABS: Mean Corpuscular Hemoglobin 25 pg (28-32)
[2017-04-09 20:23] LABS: BUN/Creatinine Ratio 21; Blood Urea Nitrogen 17 mg/dL (7-17); Hemolysis Index 3
--- NOTE | 2017-04-10 10:30 | Emergency Department Report ---
ED General Adult HPI - General Chief complaint: Syncope Stated complaint: SYNCOPE,CP,N/V,NUMBNESS Time Seen by Provider: 04/10/17 10:11 Source: patient Mode of arrival: Ambulatory Limitations: No Limitations - History of Present Illness Initial comments: Patient is a 36-year-old female history of paranoid schizophrenia, multiple admission for different complaints that include dizziness and fainting patient stated that she was diagnosed with DVT/PE, pericarditis, hyperthyroidism. Patient was recently discharged from the hospital for the same complaint with completely negative workup. Patient EKG showed chronic pericarditis features but no clinical or echo finding of pericarditis. Patient stated this time she is feeling that there is something crawling in her chest. She denied shortness of breath. She also stated that she is nauseated. Severity scale (0 -10): 0 - Related Data Home Medications Medication Instructions Recorded Confirmed Last Taken ALPRAZolam [Xanax TAB] 0.25 mg PO BID PRN 11/05/16 04/04/17 11/13/16 Apixaban [Eliquis] 5 mg PO BID 04/04/17 04/04/17 Unknown Previous Rx's Medication Instructions Recorded Last Taken Type Methimazole [Tapazole] 10 mg PO Q8HR #30 tablet 11/07/16 11/13/16 Rx Pantoprazole [Protonix TAB] 40 mg PO BID #30 tablet 11/07/16 11/13/16 Rx Pregabalin [Lyrica] 100 mg PO QAM #30 capsule 11/07/16 11/13/16 Rx Propranolol LA [Inderal LA] 60 mg PO Q12H #60 capsule 11/07/16 11/13/16 Rx Quetiapine Fumarate [SEROquel XR] 300 mg PO QHS #20 tab.er.24h 11/07/16 Rx Allergies Allergy/AdvReac Type Severity Reaction Status Date / Time garlic Allergy Unknown Verified 09/29/16 12:56 peanut oil Allergy Unknown Verified 09/29/16 12:56 Penicillins Allergy Unknown Verified 09/29/16 12:56 ED Review of Systems ROS: Stated complaint: SYNCOPE,CP,N/V,NUMBNESS Other details as noted in HPI Comment: All other systems reviewed and negative ED Past Medical Hx - Past Medical History Hx Hypertension: Yes Hx CVA: No Hx Heart Attack/AMI: No (normal stress 9-11-17) Hx Congestive Heart Failure: No Hx Diabetes: No Hx Deep Vein Thrombosis: Yes Hx Pulmonary Embolism: Yes Hx GERD: Yes Hx Liver Disease: No Hx Renal Disease: No Hx Sickle Cell Disease: No Hx Arthritis: No Hx Headaches / Migraines: No Hx Seizures: Yes Hx Kidney Stones: No Hx Psychiatric Treatment: Yes (anxiety) Hx Asthma: No Hx COPD: No Hx Tuberculosis: No Hx Dementia: No Hx HIV: No Additional medical history: pericarditis, pt states hyperthyroidism, thyroid storm, PE x 2, Graves Disease, heart murmur, seizures; PE dx on rt lung May 2016--on Eliquis - Social History Smoking Status: Current Every Day Smoker Substance Use Type: None - Medications Home Medications: Home Medications Medication Instructions Recorded Confirmed Last Taken Type ALPRAZolam [Xanax TAB] 0.25 mg PO BID PRN 11/05/16 04/04/17 11/13/16 History Methimazole [Tapazole] 10 mg PO Q8HR #30 tablet 11/07/16 04/04/17 11/13/16 Rx Pantoprazole [Protonix TAB] 40 mg PO BID #30 tablet 11/07/16 04/04/17 11/13/16 Rx Pregabalin [Lyrica] 100 mg PO QAM #30 capsule 11/07/16 04/04/17 11/13/16 Rx Propranolol LA [Inderal LA] 60 mg PO Q12H #60 capsule 11/07/16 04/04/17 Rx Quetiapine Fumarate [SEROquel XR] 300 mg PO QHS #20 tab.er.24h 11/07/1611/12/16 Rx Apixaban [Eliquis] 5 mg PO BID 04/04/17 04/04/17 Unknown History ED Physical Exam - General Limitations: No Limitations General appearance: alert, anxious - Head Head exam: Present: atraumatic, normocephalic, normal inspection - Eye Eye exam: Present: normal appearance, PERRL - ENT ENT exam: Present: normal exam, normal orophraynx, mucous membranes moist - Neck Neck exam: Present: normal inspection, full ROM. Absent: tenderness, meningismus - Respiratory Respiratory exam: Present: normal lung sounds bilaterally - Cardiovascular Cardiovascular Exam: Present: regular rate, normal rhythm, normal heart sounds - GI/Abdominal GI/Abdominal exam: Present: soft, normal bowel sounds. Absent: distended, tenderness, guarding, rebound, rigid, mass, bruit, pulsatile mass, hernia - Extremities Exam Extremities exam: Present: normal inspection, full ROM, normal capillary refill - Back Exam Back exam: Present: normal inspection, full ROM. Absent: tenderness, CVA tenderness (R), CVA tenderness (L), muscle spasm, paraspinal tenderness, vertebral tenderness - Neurological Exam Neurological exam: Present: alert, oriented X3, CN II-XII intact, normal gait - Psychiatric Psychiatric exam: Present: agitated, anxious, other (patient has pressured speech, flight of ideas and delusions.). Absent: homicidal ideation, suicidal ideation - Skin Skin exam: Present: warm, intact, normal color ED Course Vital Signs 04/09/17 04/10/17 04/10/17 19:24 07:36 10:58 Temperature 98.4 F 97.5 F L 98.1 F Pulse Rate 82 89 78 Respiratory 18 16 14 Rate Blood Pressure 126/72 124/74 Blood Pressure 122/73 [Right] O2 Sat by Pulse 100 100 Oximetry 04/10/17 04/10/17 16:26 16:34 Temperature Pulse Rate 74 Respiratory 16 16 Rate Blood Pressure Blood Pressure 120/70 [Right] O2 Sat by Pulse 98 Oximetry ED Medical Decision Making - Lab Data Result diagrams: 04/09/17 19:49 04/09/17 19:49 - EKG Data -: EKG Interpreted by Me EKG shows normal: sinus rhythm - EKG Data Interpretation: no acute changes, other (EKG showed chronic feature of pericarditis.) - Medical Decision Making I reviewed patient's previous records and admission to the hospital. Patient had a history of paranoid schizophrenia. She presented to the hospital with different somatic complaints with usually negative workup. While examining patient does have pressured speech, flights of ideas and racing thoughts. Patient denied any visual or auditory hallucination, no suicidal or homicidal ideation. I believe patient needed to be assessed by our psychiatric team for further management. Critical care attestation.: If time is entered above; I have spent that time in minutes in the direct care of this critically ill patient, excluding procedure time. ED Disposition Clinical Impression: Paranoid schizophrenia, Delusional disorder, Acute psychosis Disposition: DC/TX-65 PSY HOSP/PSY UNIT Is pt being admited?: No Condition: Stable Referrals: ASHLEE BELTRE MD [Primary Care Provider] - 3-5 Days
--- NOTE | 2017-04-10 11:14 | XRay Report ---
AP CHEST: HISTORY: chest pain AP view of the chest demonstrates a normal mediastinal and cardiac contour with clear lungs and normal bony and soft tissue structures. IMPRESSION: Unremarkable AP chest. No change since 04/04/17.
[2017-04-10 13:01] LABS: Bilirubin,Urine NEG (Negative); Blood,Urine SM (Negative); Color,Urine Yellow (Yellow); HCG Qualitative,Urine Negative (Negative); Mucus,Urine FEW /HPF; Nitrite,Urine NEG (Negative); Protein,Urine <15 mg/dL mg/dL (Negative); Urobilinogen,Urine < 2.0 mg/dL (<2.0)
[2017-04-10 13:07] LABS: Amphetamine Screen,Urine PRESUMPTIVE NEGATIVE; Benzodiazepines Screen,Urine PRESUMPTIVE NEGATIVE; Cannabinoid Screen,Urine PRESUMPTIVE NEGATIVE; Cocaine Screen,Urine PRESUMPTIVE NEGATIVE; Methadone Screen,Urine PRESUMPTIVE NEGATIVE; Opiate Screen,Urine PRESUMPTIVE NEGATIVE
[2017-04-10 13:08] LABS: WBC,Urine < 1.0 /HPF (0.0-6.0)
[2017-04-10] MEDS ORDERED: TYLENOL PO ONE (16:29)
[2017-04-10] MEDS ORDERED: TYLENOL ONE (16:30)
[2017-04-11] MEDS ORDERED: TYLENOL PO ONE ×2 (08:05→19:59)
--- NOTE | 2017-04-11 15:52 | Consultation ---
History of Present Illness - Reason for Consult Consult date: 04/11/17 Reason for consult: Mental Health Evaluation Requesting physician: MELISSA RESENDIZ - Chief Complaint Chief complaint: "Something is wrong" - History of Present Psychiatric Illness Patient is a 36-year-old female with multiple admission for different complaints that include dizziness and fainting patient stated that she was diagnosed with DVT/PE, pericarditis, and hyperthyroidism. Today the patient is calm, but disorganized during the assessment. Her answers to questions were not logical. She stated that she has multiple medical problems and none of them has been addressed. Initially she would not tell me if she is seen in the outpatient psy setting. She eventually said that she takes Seroquel for sleep. She stated not taking the medication for months. She stated that she have not slept for several days prior to her admission because she felt like sleep wasn't necessary. She denies SI/HI's and AVH's. She denies recreational drugs use and alcohol consumption (etoh) Medications and Allergies Allergies Allergy/AdvReac Type Severity Reaction Status Date / Time garlic Allergy Unknown Verified 09/29/16 12:56 ibuprofen [From Motrin] Allergy Unknown Verified 04/11/17 15:51 peanut oil Allergy Unknown Verified 09/29/16 12:56 Penicillins Allergy Unknown Verified 09/29/16 12:56 Home Medications Medication Instructions Recorded Confirmed Last Taken Type ALPRAZolam [Xanax TAB] 0.25 mg PO BID PRN 11/05/16 04/04/17 11/13/16 History Methimazole [Tapazole] 10 mg PO Q8HR #30 tablet 11/07/16 04/04/17 11/13/16 Rx Pantoprazole [Protonix TAB] 40 mg PO BID #30 tablet 11/07/16 04/04/17 11/13/16 Rx Pregabalin [Lyrica] 100 mg PO QAM #30 capsule 11/07/16 04/04/17 11/13/16 Rx Propranolol LA [Inderal LA] 60 mg PO Q12H #60 capsule 11/07/16 04/04/17 Rx Quetiapine Fumarate [SEROquel XR] 300 mg PO QHS #20 tab.er.24h 11/07/1611/12/16 Rx Apixaban [Eliquis] 5 mg PO BID 04/04/17 04/04/17 Unknown History Past psychiatric history - Past Medical History Past Medical History: other (Pericarditis) Past Surgical History: No surgical history - past Psychiatric treatment and history psychiatric treatment history: Multiple inpatient psy settings. Denies a fam psy hx. - Social History Social history: other ("Reside with roommates") Mental Status Exam - Vital signs Last Vital Signs Temp 98.5 F 04/11/17 09:38 Pulse 82 04/11/17 09:38 Resp 18 04/11/17 09:38 BP 131/62 04/11/17 09:38 Pulse Ox 97 04/11/17 09:38 - Exam Narrative exam: MSE: Appearance: calm, cooperative Behavior: regular eye contact Speech: regular rate and tone Mood: "okay" Affect: flat Thought Process: circumstantial Thought Content: denies SI/HI's and AVH's, disorganized, paranoid Motor Activity: ambulatory Cognition: A/O x3 Insight: poor Judgment: poor Results Result Diagrams: 04/09/17 19:49 04/09/17 19:49 All other labs normal. Assessment and Plan Assessment and plan: Impression: Unspecified Mood DO with psy features. Today the patient is calm, but disorganized during the assessment. DDx: Bipolar DO with psychosis, R/O Schizophrenia Paranoid Type Recommendation/Plan: Continue 1013 with placement to inpatient psy services. Start Seroquel 200 mg PO HS for mood/psychosis. Discussed possible metabolic side effects of Seroquel.
[2017-04-12] MEDS ORDERED: TYLENOL PO ONE (11:50)
[2017-04-12] MEDS ORDERED: TYLENOL PO STA (20:13)
[2017-04-13 09:17] VITALS: BP 117/70
--- NOTE | 2017-04-13 10:42 | Progress Note ---
Subjective - Reason for Consult Consult date: 04/13/17 Reason for consult: Psychiatry Follow-up - Chief Complaint Chief complaint: "Will I leave today" Patient is a 36-year-old female with multiple admission for different complaints that include dizziness and fainting patient stated that she was diagnosed with DVT/PE, pericarditis, and hyperthyroidism. Today the patient is calm, but disorganized during the assessment. She stated that got some sleep last night. She was informed that she will be transferred today to [place]. She denies SI/HI's and AVH's. Mental Status Exam - Vital signs Last Vital Signs Temp 98.7 F 04/13/17 09:12 Pulse 102 H 04/13/17 09:12 Resp 18 04/13/17 09:12 BP 117/70 04/13/17 09:12 Pulse Ox 100 04/13/17 09:12 - Exam Narrative exam: MSE: Appearance: calm, cooperative Behavior: regular eye contact Speech: regular rate and tone Mood: "okay" Affect: flat Thought Process: circumstantial Thought Content: denies SI/HI's and AVH's, disorganized Motor Activity: ambulatory Cognition: A/O x3 Insight: poor Judgment: poor Assessment and Plan Impression: Unspecified Mood DO with psy features. Today the patient is calm, but disorganized during the assessment. DDx: Bipolar DO with psychosis, R/O Schizophrenia Paranoid Type Recommendation/Plan: Continue 1013 with placement to [place] today.
== END 2017-04-13 10:27 ==
LOC: EEVIPCON 19:15 → ED 19:15
DX: F20.0 Paranoid schizophrenia (principal); I10 Essential (primary) hypertension; K21.9 Gastro-esophageal reflux disease without esophagitis; F17.200 Nicotine dependence, unspecified, uncomplicated; Z88.0 Allergy status to penicillin; Z91.018 Allergy to other foods
CPT/HCPCS: 36415; 80048; 80307; 81001; 81025; 84484; 85027; 93005; 93010; 99284; G0480; 71045; 80320

== ENCOUNTER 2017-04-30 23:22 | Emergency (ER) | payer MEDICAID, OTHER ==
--- NOTE | 2017-05-01 00:44 | Emergency Department Report ---
ED Psych HPI - General Chief Complaint: Chest Pain Stated Complaint: CHEST PAIN,BILATERAL LEG SWELLING Time Seen by Provider: 05/01/17 00:29 Source: patient Mode of arrival: Ambulatory - History of Present Illness Initial Comments: Patient is a 36-year-old female history of paranoid schizophrenia. Patient was recently released from [facility]. Patient presented of his multiple complaints that include crawling pain in her chest, rocks in her thyroid area, bilateral leg swelling, nausea. Patient stated that she is hearing electrical voices in her ear and she is hearing voices telling her to hurt herself. Patient stated that she see knife in front of her face and in her vision. Patient denied any homicidal ideation. MD Complaint: suicidal ideation -: Gradual Associated Psychiatric Symptoms: suicidal ideation, racing thoughts, auditory hallucinations, visual hallucinations, delusions History of same: Yes Quality: constant Associated Symptoms: denies other symptoms If Self Harm: admits thoughts of, has plan - Related Data Home Medications Medication Instructions Recorded Confirmed Last Taken ALPRAZolam [Xanax TAB] 0.25 mg PO BID PRN 11/05/16 04/04/17 11/13/16 Apixaban [Eliquis] 5 mg PO BID 04/04/17 04/04/17 Unknown Previous Rx's Medication Instructions Recorded Last Taken Type Methimazole [Tapazole] 10 mg PO Q8HR #30 tablet 11/07/16 11/13/16 Rx Pantoprazole [Protonix TAB] 40 mg PO BID #30 tablet 11/07/16 11/13/16 Rx Pregabalin [Lyrica] 100 mg PO QAM #30 capsule 11/07/16 11/13/16 Rx Propranolol LA [Inderal LA] 60 mg PO Q12H #60 capsule 11/07/16 11/13/16 Rx Quetiapine Fumarate [SEROquel XR] 300 mg PO QHS #20 tab.er.24h 11/07/16 Rx Allergies Allergy/AdvReac Type Severity Reaction Status Date / Time garlic Allergy Unknown Verified 09/29/16 12:56 ibuprofen [From Motrin] Allergy Unknown Verified 04/11/17 15:51 peanut oil Allergy Unknown Verified 09/29/16 12:56 Penicillins Allergy Unknown Verified 09/29/16 12:56 ED Review of Systems ROS: Stated complaint: CHEST PAIN,BILATERAL LEG SWELLING Other details as noted in HPI Comment: All other systems reviewed and negative Constitutional: denies: chills, fever Respiratory: denies: cough, orthopnea Cardiovascular: denies: chest pain Gastrointestinal: denies: abdominal pain ED Past Medical Hx - Past Medical History Previous Medical History?: Yes Hx Hypertension: Yes Hx CVA: No Hx Heart Attack/AMI: No (normal stress 10-31-16) Hx Congestive Heart Failure: No Hx Diabetes: No Hx Deep Vein Thrombosis: Yes Hx Pulmonary Embolism: Yes Hx GERD: Yes Hx Liver Disease: No Hx Renal Disease: No Hx Sickle Cell Disease: No Hx Arthritis: No Hx Headaches / Migraines: No Hx Seizures: Yes Hx Kidney Stones: No Hx Psychiatric Treatment: Yes (anxiety) Hx Asthma: No Hx COPD: No Hx Tuberculosis: No Hx Dementia: No Hx HIV: No Additional medical history: pericarditis, pt states hyperthyroidism, thyroid storm, PE x 2, Graves Disease, heart murmur, seizures; PE dx on rt lung May 2016--on Eliquis - Surgical History Past Surgical History?: Yes Additional Surgical History: Left wrist surgery - Social History Smoking Status: Current Every Day Smoker Substance Use Type: None - Medications Home Medications: Home Medications Medication Instructions Recorded Confirmed Last Taken Type ALPRAZolam [Xanax TAB] 0.25 mg PO BID PRN 11/05/16 04/04/17 11/13/16 History Methimazole [Tapazole] 10 mg PO Q8HR #30 tablet 11/07/16 04/04/17 11/13/16 Rx Pantoprazole [Protonix TAB] 40 mg PO BID #30 tablet 11/07/16 04/04/17 11/13/16 Rx Pregabalin [Lyrica] 100 mg PO QAM #30 capsule 11/07/16 04/04/17 11/13/16 Rx Propranolol LA [Inderal LA] 60 mg PO Q12H #60 capsule 11/07/16 04/04/17 Rx Quetiapine Fumarate [SEROquel XR] 300 mg PO QHS #20 tab.er.24h 11/07/1611/12/16 Rx Apixaban [Eliquis] 5 mg PO BID 04/04/17 04/04/17 Unknown History ED Physical Exam - General Limitations: No Limitations General appearance: alert, in no apparent distress, anxious - Head Head exam: Present: atraumatic, normocephalic, normal inspection - Eye Eye exam: Present: normal appearance - ENT ENT exam: Present: normal exam, normal orophraynx, mucous membranes moist - Neck Neck exam: Present: normal inspection, full ROM. Absent: tenderness, meningismus - Respiratory Respiratory exam: Present: normal lung sounds bilaterally. Absent: respiratory distress, chest wall tenderness, accessory muscle use - Cardiovascular Cardiovascular Exam: Present: regular rate, normal rhythm, normal heart sounds - GI/Abdominal GI/Abdominal exam: Present: soft, normal bowel sounds. Absent: distended, tenderness, guarding, rebound, rigid, organomegaly, mass, bruit, pulsatile mass , hernia - Extremities Exam Extremities exam: Present: normal inspection, full ROM, normal capillary refill - Back Exam Back exam: Present: normal inspection, full ROM. Absent: tenderness, CVA tenderness (R), CVA tenderness (L) - Neurological Exam Neurological exam: Present: alert, oriented X3, CN II-XII intact, normal gait - Psychiatric Psychiatric exam: Present: anxious, suicidal ideation - Skin Skin exam: Present: warm, intact, normal color ED Course Vital Signs 04/30/17 23:46 Temperature 98.5 F Pulse Rate 101 H Respiratory 18 Rate Blood Pressure 115/70 O2 Sat by Pulse 99 Oximetry ED Medical Decision Making - Lab Data Result diagrams: 05/01/17 00:06 05/01/17 00:06 Critical care attestation.: If time is entered above; I have spent that time in minutes in the direct care of this critically ill patient, excluding procedure time. ED Disposition Clinical Impression: Acute psychosis, Paranoid schizophrenia, Chest pain Disposition: DC/TX-65 PSY HOSP/PSY UNIT Is pt being admited?: No Condition: Stable Instructions: Chest Pain (ED) Referrals: ASHLEE BELTRE MD [Primary Care Provider] - 3-5 Days
[2017-05-01 00:46] LABS: INR 0.85 (0.87-1.13)
[2017-05-01 00:47] LABS: BUN/Creatinine Ratio 35; Blood Urea Nitrogen 21 mg/dL (7-17); Calcium 9.2 mg/dL (8.4-10.2); Hemolysis Index 11
[2017-05-01 00:48] LABS: Partial Thromboplastin Time 24.6 Sec. (24.2-36.6)
[2017-05-01] MEDS ORDERED: ZOFRAN ODT ONE ×2 (01:07→08:55)
[2017-05-01] MEDS ORDERED: ZOFRAN ODT PO ONE (01:23)
[2017-05-01 01:38] LABS: Basophils # (Auto) 0.1 K/mm3 (0.0-0.1); Basophils % (Auto) 0.7 % (0.0-1.8); Eosinophils # (Auto) 0.2 K/mm3 (0.0-0.4); Eosinophils % (Auto) 2.1 % (0.0-4.3); Hematocrit 38.9 % (30.3-42.9); Hemoglobin 12.5 gm/dl (10.1-14.3); Lymphocytes # (Auto) 3.2 K/mm3 (1.2-5.4); Lymphocytes % (Auto) 39.5 % (13.4-35.0); Mean Corpuscular HGB Conc 32 % (30-34); Mean Corpuscular Volume 78 fl (79-97); Monocytes # (Auto) 0.7 K/mm3 (0.0-0.8); Monocytes % (Auto) 8.7 % (0.0-7.3); Platelet Count 362 K/mm3 (140-440); Red Blood Count 4.97 M/mm3 (3.65-5.03); Red Cell Distribution Width 15.3 % (13.2-15.2)
[2017-05-01 01:39] LABS: Mean Corpuscular Hemoglobin 25 pg (28-32)
[2017-05-01] MEDS ORDERED: TORADOL PO NR (09:00)
--- NOTE | 2017-05-01 12:02 | Consultation ---
History of Present Illness - Reason for Consult Consult date: 05/01/17 Reason for consult: Mental Health Evaluation Requesting physician: MELISSA RESENDIZ - Chief Complaint Chief complaint: "I am hearing voices" - History of Present Psychiatric Illness 36 y.o. AA female presenting to [facility] for paranoia and hearing voices. This patient is known to me. Per the record she was recently discharged from a mental health facility. Today the patient is calm, but disorganized during the assessment. She stated that the voices she is hearing is disturbing. She stated that the voices are telling her to kill herself. She would not confirm or deny SI's when asked. She had to be redirected several time to keep her on topic. She was observed looking around her room during the interview, possibly responding to some type of stimuli or paranoia. She stated, "it's the voices its the voices." She denies SI's and VH's. She would not confirm erratic sleep, but stated that her appetite is okay. She denies recreational drug use and alcohol consumption (etoh). Medications and Allergies Allergies Allergy/AdvReac Type Severity Reaction Status Date / Time garlic Allergy Unknown Verified 09/29/16 12:56 ibuprofen [From Motrin] Allergy Unknown Verified 04/11/17 15:51 peanut oil Allergy Unknown Verified 09/29/16 12:56 Penicillins Allergy Unknown Verified 09/29/16 12:56 Home Medications Medication Instructions Recorded Confirmed Last Taken Type ALPRAZolam [Xanax TAB] 0.25 mg PO BID PRN 11/05/16 04/04/17 11/13/16 History Methimazole [Tapazole] 10 mg PO Q8HR #30 tablet 11/07/16 04/04/17 11/13/16 Rx Pantoprazole [Protonix TAB] 40 mg PO BID #30 tablet 11/07/16 04/04/17 11/13/16 Rx Pregabalin [Lyrica] 100 mg PO QAM #30 capsule 11/07/16 04/04/17 11/13/16 Rx Propranolol LA [Inderal LA] 60 mg PO Q12H #60 capsule 11/07/16 04/04/17 Rx Quetiapine Fumarate [SEROquel XR] 300 mg PO QHS #20 tab.er.24h 11/07/1611/12/16 Rx Apixaban [Eliquis] 5 mg PO BID 04/04/17 04/04/17 Unknown History Past psychiatric history - Past Medical History Past Medical History: hypertension Past Surgical History: No surgical history - past Psychiatric treatment and history Psych: Bipolar psychiatric treatment history: Multiple inpatient psy settings. Cannot confirm or deny a fam psy hx. - Social History Social history: other (Homeless) Mental Status Exam - Vital signs Last Vital Signs Temp 98.1 F 05/01/17 09:00 Pulse 79 05/01/17 09:00 Resp 18 05/01/17 09:00 BP 111/73 05/01/17 09:00 Pulse Ox 100 05/01/17 09:00 - Exam Narrative exam: MSE: Appearance: calm, cooperative Behavior: regular eye contact Speech: regular rate and tone Mood: "okay" Affect: flat Thought Process: circumstantial Thought Content: denies HI's and VH's, disorganized, paranoid, cannot confirm or deny SI's Motor Activity: ambulatory Cognition: A/O x3 Insight: poor Judgment: poor Results Result Diagrams: 05/01/17 00:06 05/01/17 00:06 Abnormal lab results 05/01/17 05/01/17 05/01/17 Range/Units 00:06 00:06 00:06 MCV 78 L (79-97) fl MCH 25 L (28-32) pg RDW 15.3 H (13.2-15.2) % Lymph % (Auto) 39.5 H (13.4-35.0) % [place] % (Auto) 8.7 H (0.0-7.3) % PT 12.0 L (12.2-14.9) Sec. INR 0.85 L (0.87-1.13) BUN 21 H (7-17) mg/dL Creatinine 0.6 L (0.7-1.2) mg/dL All other labs normal. Assessment and Plan Assessment and plan: Impression: Unspecified Mood DO with psy features. Today the patient is calm, but disorganized during the assessment. The patient cannot confirm or deny SI's. DDx: Bipolar DO with psychosis, R/O Schizophrenia Paranoid Type, R/O Schizoffective DO Recommendation/Plan: Continue 1013 with placement to inpatient psy services. Start Seroquel 200 mg PO HS for mood/psychosis. Discussed possible metabolic side effects of Seroquel.
[2017-05-01 13:42] LABS: Bilirubin,Urine NEG (Negative); Blood,Urine SM (Negative); Color,Urine Yellow (Yellow); Protein,Urine <15 mg/dL mg/dL (Negative); Urobilinogen,Urine < 2.0 mg/dL (<2.0); WBC,Urine < 1.0 /HPF (0.0-6.0)
[2017-05-01 13:50] LABS: Amphetamine Screen,Urine PRESUMPTIVE NEGATIVE; Benzodiazepines Screen,Urine PRESUMPTIVE NEGATIVE; Cannabinoid Screen,Urine PRESUMPTIVE NEGATIVE; Cocaine Screen,Urine PRESUMPTIVE NEGATIVE; Methadone Screen,Urine PRESUMPTIVE NEGATIVE; Opiate Screen,Urine PRESUMPTIVE NEGATIVE
[2017-05-01] MEDS ORDERED: TYLENOL PO ONE (16:24)
[2017-05-02 00:05] VITALS: BP 114/78
== END 2017-05-02 00:21 ==
LOC: ED 23:22
DX: F20.0 Paranoid schizophrenia (principal); I10 Essential (primary) hypertension; F17.200 Nicotine dependence, unspecified, uncomplicated; K21.9 Gastro-esophageal reflux disease without esophagitis; Z91.010 Allergy to peanuts; Z88.0 Allergy status to penicillin; Z91.018 Allergy to other foods
CPT/HCPCS: 36415; 80048; 80307; 81001; 84484; 84703; 85025; 85610; 85730; 93005; 93010; 99285; G0480; 80320; Q0162

== ENCOUNTER 2017-05-24 19:03 | Inpatient (IN) | payer MEDICAID, OTHER ==
[2017-05-24 20:45] LABS: Basophils # (Auto) 0.1 K/mm3 (0.0-0.1); Basophils % (Auto) 0.7 % (0.0-1.8); Eosinophils # (Auto) 0.2 K/mm3 (0.0-0.4); Eosinophils % (Auto) 2.1 % (0.0-4.3); Hematocrit 39.7 % (30.3-42.9); Hemoglobin 12.7 gm/dl (10.1-14.3); Lymphocytes # (Auto) 2.2 K/mm3 (1.2-5.4); Lymphocytes % (Auto) 29.8 % (13.4-35.0); Mean Corpuscular HGB Conc 32 % (30-34); Mean Corpuscular Hemoglobin 24 pg (28-32); Mean Corpuscular Volume 75 fl (79-97); Monocytes # (Auto) 0.8 K/mm3 (0.0-0.8); Monocytes % (Auto) 10.1 % (0.0-7.3); Platelet Count 420 K/mm3 (140-440); Red Blood Count 5.27 M/mm3 (3.65-5.03); Red Cell Distribution Width 15.2 % (13.2-15.2)
[2017-05-24 20:53] LABS: INR 0.9 (0.87-1.13)
[2017-05-24 20:54] LABS: Partial Thromboplastin Time 24.1 Sec. (24.2-36.6)
[2017-05-24 21:00] LABS: BUN/Creatinine Ratio 21; Blood Urea Nitrogen 15 mg/dL (7-17); Calcium 8.5 mg/dL (8.4-10.2); Hemolysis Index 20
[2017-05-24 21:10] LABS: Free T4 (Free Thyroxine) 2.82 ng/dL (0.76-1.46)
[2017-05-24] MEDS ORDERED: ZOFRAN IV ONE (21:42)
[2017-05-24] MEDS ORDERED: NACL 0.9% 1000 ML 1,000 ML IV ONE (21:42)
[2017-05-24] MEDS ORDERED: MORPHINE IV ONE (21:43)
--- NOTE | 2017-05-24 21:50 | Emergency Department Report ---
ED Chest Pain HPI - General Chief Complaint: Chest Pain Stated Complaint: CHEST PAIN Time Seen by Provider: 05/24/17 21:30 Source: patient Mode of arrival: Ambulatory Limitations: No Limitations - History of Present Illness Initial Comments: 36-year-old female with a past medical history of DVT, PE, hypertension, anxiety , pericarditis, hyperthyroidism/thyroid storm, and paranoid schizophrenia as as a hospital pain or cramping chest pain with nausea and vomiting for the last 3 days. Pain is constant, rated 9/10 in intensity, worse with movement, palpation , and deep inspiration. She complains of shortness of breath secondary to pain. Patient also feels like there are rocks in her anterior throat but this is ongoing. Patient had one near syncopal episode at 1 syncopal episode today. 1.5 weeks ago patient was admitted to [place] with a diagnosis of thyroid storm. Her propanolol was increased from 60 mg twice a day to 80 mg twice a day. She is still currently on methimazole 10 mg every 8 hours. She has an appointment in 5 days for her first visit with the personnel counselor. It was advised that she consider thyroid removal. She is compliant with her meds including Eliquis. No complaints of abdominal pain, diarrhea, or fever. - Related Data Home Medications Medication Instructions Recorded Confirmed Last Taken ALPRAZolam [Xanax TAB] 0.25 mg PO BID PRN 11/05/16 04/04/17 11/13/16 Apixaban [Eliquis] 5 mg PO BID 04/04/17 04/04/17 Unknown Previous Rx's Medication Instructions Recorded Last Taken Type Methimazole [Tapazole] 10 mg PO Q8HR #30 tablet 11/07/16 11/13/16 Rx Pantoprazole [Protonix TAB] 40 mg PO BID #30 tablet 11/07/16 11/13/16 Rx Pregabalin [Lyrica] 100 mg PO QAM #30 capsule 11/07/16 11/13/16 Rx Propranolol LA [Inderal LA] 60 mg PO Q12H #60 capsule 11/07/16 11/13/16 Rx Quetiapine Fumarate [SEROquel XR] 300 mg PO QHS #20 tab.er.24h 11/07/16 Rx Allergies Allergy/AdvReac Type Severity Reaction Status Date / Time garlic Allergy Unknown Verified 09/29/16 12:56 ibuprofen [From Motrin] Allergy Unknown Verified 04/11/17 15:51 peanut oil Allergy Unknown Verified 09/29/16 12:56 Penicillins Allergy Unknown Verified 09/29/16 12:56 Heart Score - HEART Score History: Slightly suspicious EKG: Normal Age: < 45 Risk factors: No known risk factors Troponin: < normal limit HEART Score: 0 ED Review of Systems ROS: Stated complaint: CHEST PAIN Other details as noted in HPI Comment: All other systems reviewed and negative ED Past Medical Hx - Past Medical History Previous Medical History?: Yes Hx Hypertension: Yes Hx CVA: No Hx Heart Attack/AMI: No (normal stress 10-31-16) Hx Congestive Heart Failure: No Hx Diabetes: No Hx Deep Vein Thrombosis: Yes Hx Pulmonary Embolism: Yes Hx GERD: Yes Hx Liver Disease: No Hx Renal Disease: No Hx Sickle Cell Disease: No Hx Arthritis: No Hx Headaches / Migraines: No Hx Seizures: Yes Hx Kidney Stones: No Hx Psychiatric Treatment: Yes (anxiety) Hx Asthma: No Hx COPD: No Hx Tuberculosis: No Hx Dementia: No Hx HIV: No Additional medical history: pericarditis, pt states hyperthyroidism, thyroid storm, PE x2, (R lung 05/2016, L lung 01/2017--on Eliquis), R leg DVT 03/2017, Graves Disease, heart murmur - Surgical History Past Surgical History?: Yes Additional Surgical History: Left arm surgery 02/2017 - Social History Smoking Status: Current Every Day Smoker Substance Use Type: None - Medications Home Medications: Home Medications Medication Instructions Recorded Confirmed Last Taken Type ALPRAZolam [Xanax TAB] 0.25 mg PO BID PRN 11/05/16 04/04/17 11/13/16 History Methimazole [Tapazole] 10 mg PO Q8HR #30 tablet 11/07/16 04/04/17 11/13/16 Rx Pantoprazole [Protonix TAB] 40 mg PO BID #30 tablet 11/07/16 04/04/17 11/13/16 Rx Pregabalin [Lyrica] 100 mg PO QAM #30 capsule 11/07/16 04/04/17 11/13/16 Rx Propranolol LA [Inderal LA] 60 mg PO Q12H #60 capsule 11/07/16 04/04/17 Rx Quetiapine Fumarate [SEROquel XR] 300 mg PO QHS #20 tab.er.24h 11/07/1611/12/16 Rx Apixaban [Eliquis] 5 mg PO BID 04/04/17 04/04/17 Unknown History ED Physical Exam - General Limitations: No Limitations - Other Other exam information: General: No limitations Head exam: Atraumatic, normocephalic Eyes exam: Normal appearance ENT: Moist mucous membrane, normal oropharynx Neck exam: Normal inspection, full range of motion, no stridor, mild thyromegaly Respiratory exam: Clear to auscultation bilateral, no wheezes, rales, crackles Cardiovascular: Tachycardic regular rhythm, anterior chest wall tenderness Abdomen: Soft, nondistended, and nontender, with normal bowel sounds, no rebound, or guarding Extremity: Full range of motion normal inspection no deformity, no calf tenderness or pitting edema, patient states she feels like her legs are swollen Back: Normal Inspection, full range of motion, no tenderness Neurologic: Alert, oriented x3, cranial nerves intact, no motor or sensory deficit Psychiatric: normal affect, normal mood Skin: Warm, dry, intact ED Course Vital Signs 05/24/17 05/24/17 05/24/17 20:10 21:34 21:46 Temperature 98 F Pulse Rate 96 H 97 H 95 H Respiratory 18 19 24 Rate Blood Pressure 139/76 131/86 O2 Sat by Pulse 98 98 98 Oximetry 05/24/17 05/24/17 05/24/17 22:00 22:16 23:20 Temperature Pulse Rate 94 H 91 H Respiratory 21 24 Rate Blood Pressure 131/86 131/86 131/86 O2 Sat by Pulse 98 98 97 Oximetry 05/24/17 05/24/17 05/24/17 23:30 23:33 23:45 Temperature Pulse Rate 101 H 96 H Respiratory 22 18 18 Rate Blood Pressure 131/86 138/75 O2 Sat by Pulse 99 97 Oximetry 05/25/17 00:00 Temperature Pulse Rate 90 Respiratory 22 Rate Blood Pressure 138/71 O2 Sat by Pulse 99 Oximetry - Reevaluation(s) Reevaluation #1: 05/25/17 00:52 after receiving Dilaudid total 2 mg, Zofran, and well later normal saline heart rate slowed down to the 80s. When I go to talk to patient heart rate increases over 100. She states that she continues to have pain. She denies current benzodiazepine use or narcotic medication use at home - EJ/Peripheral Line Neck L Time Out Performed: Yes Indications: nurses unable to establis Skin Cleansed in Sterile Fashion: Yes Size: 20 Dressing Placed: Tegaderm Patient Tolerated Procedure: well, no complications GENOVEVA score - Genoveva Score Age > 65: (0) No Aspirin use within the Past 7 Days: (0) No 3 or more CAD Risk Factors: (0) No 2 or more Angina events in past 24 hrs: (0) No Known CAD with more than 50% Stenosis: (0) No Elevated Cardiac Markers: (0) No ST Deviation Greater than 0.5mm: (0) No GENOVEVA Score: 0 ED Medical Decision Making - Lab Data Result diagrams: 05/24/17 20:24 05/24/17 20:24 Lab Results 05/24/17 05/24/17 05/24/17 Range/Units 20:24 20:24 20:24 WBC 7.5 (4.5-11.0) K/mm3 RBC 5.27 H (3.65-5.03) M/mm3 Hgb 12.7 (10.1-14.3) gm/dl Hct 39.7 (30.3-42.9) % MCV 75 L (79-97) fl MCH 24 L (28-32) pg MCHC 32 (30-34) % RDW 15.2 (13.2-15.2) % Plt Count 420 (140-440) K/mm3 Lymph % (Auto) 29.8 (13.4-35.0) % [place] % (Auto) 10.1 H (0.0-7.3) % Eos % (Auto) 2.1 (0.0-4.3) % Baso % (Auto) 0.7 (0.0-1.8) % Lymph # 2.2 (1.2-5.4) K/mm3 Cedar # 0.8 (0.0-0.8) K/mm3 Eos # 0.2 (0.0-0.4) K/mm3 Baso # 0.1 (0.0-0.1) K/mm3 Seg Neutrophils % 57.3 (40.0-70.0) % Seg Neutrophils # 4.3 (1.8-7.7) K/mm3 PT 12.6 (12.2-14.9) Sec. INR 0.90 (0.87-1.13) APTT 24.1 L (24.2-36.6) Sec. D-Dimer (0-234) ng/mlDDU Sodium 137 (137-145) mmol/L Potassium 4.6 (3.6-5.0) mmol/L Chloride 100.6 (98-107) mmol/L Carbon Dioxide 21 L (22-30) mmol/L Anion Gap 20 mmol/L BUN 15 (7-17) mg/dL Creatinine 0.7 (0.7-1.2) mg/dL Estimated GFR > 60 ml/min BUN/Creatinine Ratio 21 % Glucose 126 H (65-100) mg/dL Calcium 8.5 (8.4-10.2) mg/dL Troponin T < 0.010 (0.00-0.029) ng/mL TSH (0.270-4.200) mlU/mL Free T4 (0.76-1.46) ng/dL HCG, Qual (Negative) 05/24/17 05/24/17 05/24/17 Range/Units 20:24 20:24 20:24 WBC (4.5-11.0) K/mm3 RBC (3.65-5.03) M/mm3 Hgb (10.1-14.3) gm/dl Hct (30.3-42.9) % MCV (79-97) fl MCH (28-32) pg MCHC (30-34) % RDW (13.2-15.2) % Plt Count (140-440) K/mm3 Lymph % (Auto) (13.4-35.0) % [place] % (Auto) (0.0-7.3) % Eos % (Auto) (0.0-4.3) % Baso % (Auto) (0.0-1.8) % Lymph # (1.2-5.4) K/mm3 [place] # (0.0-0.8) K/mm3 Eos # (0.0-0.4) K/mm3 Baso # (0.0-0.1) K/mm3 Seg Neutrophils % (40.0-70.0) % Seg Neutrophils # (1.8-7.7) K/mm3 PT (12.2-14.9) Sec. INR (0.87-1.13) APTT (24.2-36.6) Sec. D-Dimer 277.43 H (0-234) ng/mlDDU Sodium (137-145) mmol/L Potassium (3.6-5.0) mmol/L Chloride (98-107) mmol/L Carbon Dioxide (22-30) mmol/L Anion Gap mmol/L BUN (7-17) mg/dL Creatinine (0.7-1.2) mg/dL Estimated GFR ml/min BUN/Creatinine Ratio % Glucose (65-100) mg/dL Calcium (8.4-10.2) mg/dL Troponin T (0.00-0.029) ng/mL TSH < 0.005 L (0.270-4.200) mlU/mL Free T4 2.82 H (0.76-1.46) ng/dL HCG, Qual Negative (Negative) 05/24/17 Range/Units 23:36 WBC (4.5-11.0) K/mm3 RBC (3.65-5.03) M/mm3 Hgb (10.1-14.3) gm/dl Hct (30.3-42.9) % MCV (79-97) fl MCH (28-32) pg MCHC (30-34) % RDW (13.2-15.2) % Plt Count (140-440) K/mm3 Lymph % (Auto) (13.4-35.0) % [place] % (Auto) (0.0-7.3) % Eos % (Auto) (0.0-4.3) % Baso % (Auto) (0.0-1.8) % Lymph # (1.2-5.4) K/mm3 [place] # (0.0-0.8) K/mm3 Eos # (0.0-0.4) K/mm3 Baso # (0.0-0.1) K/mm3 Seg Neutrophils % (40.0-70.0) % Seg Neutrophils # (1.8-7.7) K/mm3 PT (12.2-14.9) Sec. INR (0.87-1.13) APTT (24.2-36.6) Sec. D-Dimer (0-234) ng/mlDDU Sodium (137-145) mmol/L Potassium (3.6-5.0) mmol/L Chloride (98-107) mmol/L Carbon Dioxide (22-30) mmol/L Anion Gap mmol/L BUN (7-17) mg/dL Creatinine (0.7-1.2) mg/dL Estimated GFR ml/min BUN/Creatinine Ratio % Glucose (65-100) mg/dL Calcium (8.4-10.2) mg/dL Troponin T < 0.010 (0.00-0.029) ng/mL TSH (0.270-4.200) mlU/mL Free T4 (0.76-1.46) ng/dL HCG, Qual (Negative) - EKG Data -: EKG Interpreted by Me EKG shows normal: sinus rhythm, axis (qrs 48), QRS complexes, ST-T waves (no stemi t wave inv) Rate: tachycardia (100) - EKG Data When compared to previous EKG there are: no significant change - Radiology Data Radiology results: report reviewed, image reviewed (cxr read by me: young) READ BY RADIOLOGY CTA Chest: IMPRESSION: No evidence of pulmonary embolus. Small amount of dependent atelectasis visualized. Lungs otherwise are clear. Thyroid gland mildly enlarged. This appears unchanged. Small amount of residual thymic tissue appears to be visualized. No other abnormalities are seen. - Medical Decision Making Chest pain appears to be Reproducible on palpation. Patient's heart rate improved after 1 L normal saline, Dilaudid and Zofran. Patient has a complicated medical history but also has previous hospital visits with similar presentations after medical record review. Patient also appears to be Hoppingr from one hospital to another. We'll admit to hospital for further monitoring and treatment due to continued symptoms and intermittent tachycardia. I do not believe patient is in thyroid storm at this time. Pt ct angio neg for pe and pt had neg stress test 10/2016 - Differential Diagnosis mi, PE, costochondritis, anxiety, chronic pain, thyroid storm, dehydration Critical Care Time: No Critical care attestation.: If time is entered above; I have spent that time in minutes in the direct care of this critically ill patient, excluding procedure time. ED Disposition Clinical Impression: Chest pain, Syncope, Tachycardia, Bipolar 1 disorder, History of pulmonary embolism, HTN (hypertension), Hyperthyroidism Disposition: DC-09 OP ADMIT IP TO THIS HOSP Is pt being admited?: Yes Condition: Stable Time of Disposition: 01:12 (Dr Puente/hosp)
[2017-05-24] MEDS ORDERED: DILAUDID IV ONE ×2 (22:17→23:27)
--- NOTE | 2017-05-24 23:52 | Cat Scan Report ---
FINAL REPORT PROCEDURE: CT ANGIO CHEST TECHNIQUE: Computerized tomographic angiography of the chest was performed during the IV injection of iodinated nonionic contrast including image processing. The image data was postprocessed using 2-dimensional multiplanar reformatted (MPR) and 3-dimensional (MIP and/or volume rendered) techniques. HISTORY: cp, sob, tachy, hx of pe, hyperthyroidism COMPARISON: No prior studies are available for comparison. FINDINGS: Pulmonary outflow tract, right and left main pulmonary arteries and their proximal branches: Clear, no filling defects seen to suggest pulmonary embolus. Pericardium: No evidence of pericardial effusion. Thoracic aorta: No evidence of aneurysmal dilatation or dissection. Coronary arteries: Are unremarkable. Heart size upper normal to a mildly enlarged. Mediastinum and hilar regions: Nonspecific subcentimeter lymph nodes are visualized. No pathologically enlarged lymph nodes or masses are identified. There is a small amount of soft tissue density in the anterior mediastinum conforming to the contours of the anterior mediastinum which appears to represent residual thymic tissue. Thyroid gland appears to be mildly enlarged. This is unchanged Lung Dyer: There is a small amount of dependent atelectasis. Lungs otherwise are clear. No masses or effusions are seen. Upper abdomen: No acute or focal abnormality is seen. Other: No acute bony abnormalities are identified. IMPRESSION: No evidence of pulmonary embolus. Small amount of dependent atelectasis visualized. Lungs otherwise are clear. Thyroid gland mildly enlarged. This appears unchanged. Small amount of residual thymic tissue appears to be visualized. No other abnormalities are seen.
[2017-05-25] MEDS: MORPHINE IV PRN ×5 (02:45→23:39)
[2017-05-25] MEDS ORDERED: XANAX PO PRN (03:41)
--- NOTE | 2017-05-25 03:46 | History and Physical Report ---
History of Present Illness Date of examination: 05/25/17 Date of admission: 05/25/17 01:41 History of present illness: 36-year-old woman with history of hypertension, anxiety, PE, DVT, seizure, hypothyroidism comes emergency room with complaints of chest pain. Pain is in the epigastric area which he describes as sharp pain, constant for 3 days, intensity 6/10, no radiation, cannot identify exacerbating over the counter. No nausea vomiting, shortness of breath, diaphoresis or palpitation Review of systems Constitutional: no weight loss, chills Ears, eyes, nose, mouth and throat: no nasal congestion, no nasal discharge, no sinus pressure, no vision change, no red eye. Neck: No neck pain or rigidity. Cardiovascular: no palpitations Respiratory: No cough, shortness of breath Gastrointestinal: no abdominal pain, hematochezia Genitourinary : no dysuria, frequency , no hematuria Musculoskeletal: no joint swelling or muscle ache Integumentary: no rash, no pruritis Neurological: no parathesias, no numbness, no focal weakness Endocrine: no cold or heat intolerance, no polyuria or polydipsia Hematologic/Lymphatic: no easy bruising, no easy bleeding, no gland swelling Allergic/Immunologic: no urticaria, no angioedema. PAST MEDICAL HISTORY: hypertension, anxiety, PE, DVT, seizure, hypothyroidism PAST SURGICAL HISTORY: Right hand SOCIAL HISTORY: Admits to tobacco, alcohol, cocaine, methamphetamine use FAMILY HISTORY: Hypertension Medications and Allergies Allergies Allergy/AdvReac Type Severity Reaction Status Date / Time garlic Allergy Unknown Verified 09/29/16 12:56 ibuprofen [From Motrin] Allergy Unknown Verified 04/11/17 15:51 peanut oil Allergy Unknown Verified 09/29/16 12:56 Penicillins Allergy Unknown Verified 09/29/16 12:56 Home Medications Medication Instructions Recorded Confirmed Last Taken Type Quetiapine Fumarate [SEROquel XR] 300 mg PO QHS #20 tab.er.24h 11/07/1605/23/17 Rx ALPRAZolam [Xanax TAB] 0.25 mg PO BID PRN #60 tablet 05/26/17 Unknown Rx Apixaban [Eliquis] 5 mg PO BID #60 tablet 05/26/17 Unknown Rx Methimazole [Tapazole] 10 mg PO Q8HR #30 tablet 05/26/17 Unknown Rx Pantoprazole [Protonix TAB] 40 mg PO BID #30 tablet 05/26/17 Unknown Rx Pregabalin [Lyrica] 100 mg PO QAM #30 capsule 05/26/17 Unknown Rx Propranolol LA [Inderal LA] 60 mg PO Q12H #60 capsule 05/26/17 Unknown Rx Active Meds: Active Medications Alprazolam (Xanax) 0.25 mg PO BID PRN PRN Reason: Anxiety Apixaban (Eliquis) 5 mg PO BID [facility]; Protocol Methimazole (Tapazole) 10 mg PO Q8HR [facility] Miscellaneous Medication (Quetiapine Fumarate [Seroquel Xr]) 300 mg PO QHS ELLIOTT Morphine Sulfate (Morphine) 2 mg IV Q4H PRN PRN Reason: Pain, Moderate (4-6) Last Admin: 05/25/17 02:45 Dose: 2 mg Pantoprazole Sodium (Protonix) 40 mg PO BID ELLIOTT Pregabalin (Lyrica) 100 mg PO QAM ELLIOTT Propranolol HCl (Inderal La) 60 mg PO Q12H [facility] Exam - Physical Exam Narrative exam: Gen. appearance: Patient lying in bed, no apparent distress HEENT: Normocephalic, atraumatic, pupils equally round and reactive to light, extraocular movement intact, and no sclericterus,. No JVD or thyromegaly or nodule,neck supple, no carotid bruit ,mucous membranes moist, no exudate or erythema Heart: S1, S2, regular rate and rhythm Lungs: Clear to auscultation bilaterally, breathing comfortable Abdomen: Positive bowel sounds, nontender, nondistended, no organomegaly Extremity: No edema, cyanosis, clubbing Skin: No rash, nodules, warm, dry Neuro: Oriented 3, cranial nerves II-12 intact, speech is fluent, motor and sensory intact - Constitutional Vitals: Temp Pulse Resp BP Pulse Ox 98 F 112 H 16 145/74 96 05/24/17 20:10 05/25/17 01:15 05/25/17 02:46 05/25/17 01:15 05/25/17 02:46 Results - Labs CBC & Chem 7: 05/26/17 04:31 05/26/17 04:31 Labs: Abnormal lab results 05/24/17 05/24/17 05/24/17 Range/Units 20:24 20:24 20:24 RBC 5.27 H (3.65-5.03) M/mm3 MCV 75 L (79-97) fl MCH 24 L (28-32) pg Garden % (Auto) 10.1 H (0.0-7.3) % APTT 24.1 L (24.2-36.6) Sec. D-Dimer (0-234) ng/mlDDU Carbon Dioxide 21 L (22-30) mmol/L Glucose 126 H (65-100) mg/dL TSH (0.270-4.200) mlU/mL Free T4 (0.76-1.46) ng/dL 05/24/17 05/24/17 Range/Units 20:24 20:24 RBC (3.65-5.03) M/mm3 MCV (79-97) fl MCH (28-32) pg Garden % (Auto) (0.0-7.3) % APTT (24.2-36.6) Sec. D-Dimer 277.43 H (0-234) ng/mlDDU Carbon Dioxide (22-30) mmol/L Glucose (65-100) mg/dL TSH < 0.005 L (0.270-4.200) mlU/mL Free T4 2.82 H (0.76-1.46) ng/dL Assessment and Plan Assessment Chest pain hypertension anxiety PE, DVT seizure hypothyroidism Plan Admit to medicine Check cardiac enzymes, stress test Continueappropiate outpatient medications DVT prophylaxis
[2017-05-25] MEDS ORDERED: TYLENOL PO PRN (03:47)
[2017-05-25] MEDS ORDERED: SODIUM CHLORIDE FLUSH SYRINGE 10 ML IV PRN (03:47)
[2017-05-25] MEDS: TAPAZOLE PO SCH ×3 (07:06→22:31)
--- NOTE | 2017-05-25 07:50 | XRay Report ---
FINAL REPORT EXAM: XR CHEST 1V AP HISTORY: cp TECHNIQUE: AP portable view(s) of the chest obtained. PRIORS: 10/29/2016 FINDINGS: No mediastinal shift. Cardiac silhouette is not enlarged. No pneumothorax, effusion, or focal pulmonary opacity identified. No acute skeletal findings. IMPRESSION: No acute pulmonary finding identified.
[2017-05-25 08:57] LABS: Creatine Kinase MB 1.1 ng/mL (0.0-4.0)
[2017-05-25] MEDS ORDERED: LYRICA PO SCH (10:00)
[2017-05-25] MEDS ORDERED: LOVENOX SUB-Q SCH ×2 (10:00)
[2017-05-25] MEDS: PROTONIX PO SCH ×2 (10:22→23:34)
[2017-05-25] MEDS: ZOFRAN IV PRN ×2 (10:23→23:40)
[2017-05-25] MEDS: INDERAL LA PO SCH ×2 (10:30→23:32)
[2017-05-25] MEDS: SODIUM CHLORIDE FLUSH SYRINGE 10 ML IV SCH (10:44)
--- NOTE | 2017-05-25 11:40 | Event Note ---
Date: 05/25/17 Patient seen and examined. We will continue the plan as outlined in H&P. Time spent with continued coordination of care and treatment was an additional 34 minutes after admission.
[2017-05-25] MEDS ORDERED: LEXISCAN IV ONE ×3 (11:43→12:12)
[2017-05-25] MEDS ORDERED: NACL 0.9% 500 ML 500 ML ONE (11:58)
[2017-05-25] MEDS ORDERED: NACL 0.9% 500 ML 500 ML IV ONE ×2 (12:00→12:13)
[2017-05-25] MEDS: LYRICA PO SCH ×2 (13:49)
--- NOTE | 2017-05-25 20:04 | Treadmill Report ---
The resting images revealed irregular uptake due to artifact. Overall, it is good uptake without any deficits. On post-Lexiscan, myocardial perfusion images revealed again irregular uptake in the anterior wall region probably due to attenuation artifact. On gated scan revealed normal LV contraction with ejection fraction of 69%. There is no evidence of transient ischemic dilatation. IMPRESSION: 1. The test is negative for ischemia. 2. Left ventricular systolic function is normal without any segmental motion abnormality. Ejection fraction is 69%. JOB# [id number] KR/NTS
[2017-05-25] MEDS ORDERED: NON-FORMULARY (Quetiapine Fumarate [Seroquel Xr] 300 MG) PO SCH (22:00)
[2017-05-25] MEDS: ELIQUIS PO SCH (23:34)
[2017-05-26] MEDS: ELIQUIS PO SCH ×2 (04:20→10:31)
[2017-05-26 05:18] LABS: Basophils # (Auto) 0.1 K/mm3 (0.0-0.1); Basophils % (Auto) 1.1 % (0.0-1.8); Eosinophils # (Auto) 0.1 K/mm3 (0.0-0.4); Eosinophils % (Auto) 2.5 % (0.0-4.3); Hematocrit 32.6 % (30.3-42.9); Hemoglobin 10.6 gm/dl (10.1-14.3); Lymphocytes # (Auto) 2.6 K/mm3 (1.2-5.4); Mean Corpuscular HGB Conc 32 % (30-34); Mean Corpuscular Volume 75 fl (79-97); Monocytes # (Auto) 0.7 K/mm3 (0.0-0.8); Monocytes % (Auto) 13.4 % (0.0-7.3); Platelet Count 381 K/mm3 (140-440); Red Blood Count 4.32 M/mm3 (3.65-5.03); Red Cell Distribution Width 15.3 % (13.2-15.2)
[2017-05-26] MEDS: TAPAZOLE PO SCH (05:23)
[2017-05-26] MEDS: MORPHINE IV PRN ×2 (05:24→10:32)
[2017-05-26] MEDS: SODIUM CHLORIDE FLUSH SYRINGE 10 ML IV SCH (05:25)
[2017-05-26 05:32] LABS: Mean Corpuscular Hemoglobin 24 pg (28-32)
[2017-05-26 05:34] LABS: BUN/Creatinine Ratio 20; Blood Urea Nitrogen 12 mg/dL (7-17); Calcium 8.3 mg/dL (8.4-10.2); Hemolysis Index 13
--- NOTE | 2017-05-26 09:24 | Discharge Summary ---
Providers - Providers Date of Admission: 05/25/17 01:41 Date of discharge: 05/26/17 Attending physician: MATT ESTEBAN Primary care physician: ASHLEE BELTRE Hospitalization Reason for admission: cp Condition: Stable Hospital course: 36-year-old female with a past medical history of DVT, PE, hypertension, anxiety , pericarditis, hyperthyroidism, and paranoid schizophrenia presented to the hospital complaining of cramping chest pain with nausea and vomiting for the last 3 days prior to admission. Pain was described as constant, rated 9/10 in intensity, worse with movement, palpation, and deep inspiration. She complained of shortness of breath secondary to pain. Patient also feels like there are rocks in her anterior throat but this is ongoing. Patient had one near syncopal episode at 1 syncopal episode on the day of admission. Patient reports that 1.5 weeks ago she was admitted to [place] with a diagnosis of thyroid storm. Her propanolol was increased from 60 mg twice a day to 80 mg twice a day. However, her medications have her propanolol listed at 80 mg twice a day. She is still currently on methimazole 10 mg every 8 hours. She has an appointment in 5 days for her first visit with the manager behavioral. It was advised that she consider thyroid removal. She reports she is compliant with her meds including Eliquis. No complaints of abdominal pain, diarrhea, or fever. The patient has had multiple admissions in the past with several complaints related to chest pain, palpitations and anxiety disorder/ nervousness. The patient had a stress test on this admission that was found to be negative for ischemia. Patient also had a negative CTA for PE only showing mildly enlarged thyroid. Patient is urged to follow-up with her manager behavioral for further plans/options for her thyroid. Patient will remain on her medications of propranolol and methimazole. Dictated discharge time 35 minutes. Disposition: - TO HOME OR SELFCARE Time spent for discharge: 35 - Discharge Diagnoses (1) Chest pain Status: Acute (2) Hyperthyroidism Status: Acute (3) Tachycardia Status: Acute (4) HTN (hypertension) Status: Chronic Qualifiers: (5) Anxiety Status: Acute Core Measure Documentation - Palliative Care Palliative Care/ Comfort Measures: Not Applicable - Core Measures Any of the following diagnoses?: none Exam - Constitutional Vitals: Temp Pulse Resp BP Pulse Ox 98.1 F 90 16 98/52 98 04/06/18 04:14 05/26/17 04:14 05/26/17 04:14 05/26/17 04:14 05/26/17 04:14 General appearance: Present: no acute distress, well-nourished - EENT Eyes: Present: PERRL ENT: hearing intact, clear oral mucosa - Neck Neck: Present: supple, normal ROM - Respiratory Respiratory effort: normal Respiratory: bilateral: CTA - Cardiovascular Heart Sounds: Present: S1 & S2. Absent: rub, click - Extremities Extremities: pulses symmetrical, No edema Peripheral Pulses: within normal limits - Abdominal General gastrointestinal: Present: soft, non-tender, non-distended, normal bowel sounds Female genitourinary: Present: normal - Integumentary Integumentary: Present: clear, warm, dry - Musculoskeletal Musculoskeletal: gait normal, strength equal bilaterally - Psychiatric Psychiatric: appropriate mood/affect, intact judgment & insight - Neurologic Neurologic: CNII-XII intact, moves all extremities Plan Activity: no restrictions Weight Bearing Status: Full Weight Bearing Diet: regular Follow up with: ASHLEE BELTRE MD [Primary Care Provider] - 3-5 Days Prescriptions: ALPRAZolam [Xanax TAB] 0.25 mg PO BID PRN #60 tablet PRN Reason: Anxiety Apixaban [Eliquis] 5 mg PO BID #60 tablet Methimazole [Tapazole] 10 mg PO Q8HR #30 tablet Pantoprazole [Protonix TAB] 40 mg PO BID #30 tablet Pregabalin [Lyrica] 100 mg PO QAM #30 capsule Propranolol LA [Inderal LA] 60 mg PO Q12H #60 capsule
[2017-05-26] MEDS: LYRICA PO SCH ×2 (10:31)
[2017-05-26] MEDS: PROTONIX PO SCH (10:31)
[2017-05-26] MEDS: INDERAL LA PO SCH (10:32)
[2017-05-26 10:33] VITALS: BP 110/61
== END 2017-05-26 12:30 | disposition home or self-care (01) | DRG 313 ==
LOC: ED 19:03 → 4A 05-25 01:41
PROVIDERS: ADMIT Internal Medicine; ATTEND Hospitalist
DX: R07.9 Chest pain, unspecified (principal); F20.0 Paranoid schizophrenia; E05.90 Thyrotoxicosis, unspecified without thyrotoxic crisis or storm; E03.9 Hypothyroidism, unspecified; F31.9 Bipolar disorder, unspecified; I10 Essential (primary) hypertension; F41.9 Anxiety disorder, unspecified; Z79.899 Other long term (current) drug therapy; Z88.0 Allergy status to penicillin; Z88.8 Allergy status to other drugs, medicaments and biological substances; Z91.010 Allergy to peanuts; Z91.018 Allergy to other foods; Z86.718 Personal history of other venous thrombosis and embolism; Z86.711 Personal history of pulmonary embolism; Z82.49 Family history of ischemic heart disease and other diseases of the circulatory system
CPT/HCPCS: 36415; 71045; 71275; 78452; 80048; 82550; 82553; 84439; 84443; 84484; 84703; 85025; 85379; 85610; 85730; 93005; 93010; 93017; 96365; A9502; J1170; J2270; J2405; J2785; J7030; J7040; Q9967

== ENCOUNTER 2017-05-31 11:01 | Emergency (ER) | payer OTHER ==
[2017-05-31 11:59] VITALS: BP 123/78
[2017-05-31] MEDS ORDERED: TYLENOL #3 PO ONE (13:46)
--- NOTE | 2017-05-31 13:50 | Emergency Department Report ---
ED ENT HPI - General Chief complaint: Sore Throat Stated complaint: CHEST/THROAT PAIN Time Seen by Provider: 05/31/17 13:00 Source: patient Mode of arrival: Ambulatory Limitations: No Limitations - History of Present Illness Initial comments: 36-year-old female with a past medical history of hyperthyroidism, thyromegaly, hypertension, DVT, GERD, anxiety, and seizures presents to the hospital complains of feeling like her throat is tightening up and mid chest pain. The throat tightening causes her to feel short of breath. Patient has a known enlarged thyroid or hyperthyroidism and has had similar symptoms in the past. She also complains of mid chain prescribed as a rubbing sensation that has been going on for at least 3 weeks. Pain is rated a 6 in intensity. No aggravating or alleviating factors supported. I admitted patient earlier this month for the same complaints and patient has presented to the hospital here and [place] multiple times with the same complaints. Patient was discharged here on the fifth after stress testing, CT angiogram of the chest no PE and stable mild thyromegaly. Patient has been told by multiple physicians that she may need a thyroidectomy and has some "appointments coming up". Patient requested medication for pain since Tylenol is not helping. Patient's currently on eliquis for previous PE/DVT. - Related Data Previous Rx's Medication Instructions Recorded Last Taken Type Quetiapine Fumarate [SEROquel XR] 300 mg PO QHS #20 tab.er.24h 11/07/16 Rx ALPRAZolam [Xanax TAB] 0.25 mg PO BID PRN #60 tablet 05/26/17 Unknown Rx Apixaban [Eliquis] 5 mg PO BID #60 tablet 05/26/17 Unknown Rx Methimazole [Tapazole] 10 mg PO Q8HR #30 tablet 05/26/17 Unknown Rx Pantoprazole [Protonix TAB] 40 mg PO BID #30 tablet 05/26/17 Unknown Rx Pregabalin [Lyrica] 100 mg PO QAM #30 capsule 05/26/17 Unknown Rx Propranolol LA [Inderal LA] 60 mg PO Q12H #60 capsule 05/26/17 Unknown Rx Acetaminophen/Codeine [Tylenol 1 tab PO Q6H PRN #10 tab 05/31/17 Unknown Rx /Codeine # 3 tab] Allergies Allergy/AdvReac Type Severity Reaction Status Date / Time garlic Allergy Unknown Verified 09/29/16 12:56 ibuprofen [From Motrin] Allergy Unknown Verified 04/11/17 15:51 peanut oil Allergy Unknown Verified 09/29/16 12:56 Penicillins Allergy Unknown Verified 09/29/16 12:56 ED Dental HPI - General Chief complaint: Sore Throat Stated complaint: CHEST/THROAT PAIN Time Seen by Provider: 05/31/17 13:00 Source: patient, old records reviewed Mode of arrival: Ambulatory Limitations: No Limitations - Related Data Previous Rx's Medication Instructions Recorded Last Taken Type Quetiapine Fumarate [SEROquel XR] 300 mg PO QHS #20 tab.er.24h 11/07/16 Rx ALPRAZolam [Xanax TAB] 0.25 mg PO BID PRN #60 tablet 05/26/17 Unknown Rx Apixaban [Eliquis] 5 mg PO BID #60 tablet 05/26/17 Unknown Rx Methimazole [Tapazole] 10 mg PO Q8HR #30 tablet 05/26/17 Unknown Rx Pantoprazole [Protonix TAB] 40 mg PO BID #30 tablet 05/26/17 Unknown Rx Pregabalin [Lyrica] 100 mg PO QAM #30 capsule 05/26/17 Unknown Rx Propranolol LA [Inderal LA] 60 mg PO Q12H #60 capsule 05/26/17 Unknown Rx Acetaminophen/Codeine [Tylenol 1 tab PO Q6H PRN #10 tab 05/31/17 Unknown Rx /Codeine # 3 tab] Allergies Allergy/AdvReac Type Severity Reaction Status Date / Time garlic Allergy Unknown Verified 09/29/16 12:56 ibuprofen [From Motrin] Allergy Unknown Verified 04/11/17 15:51 peanut oil Allergy Unknown Verified 09/29/16 12:56 Penicillins Allergy Unknown Verified 09/29/16 12:56 ED Review of Systems ROS: Stated complaint: CHEST/THROAT PAIN Other details as noted in HPI Comment: All other systems reviewed and negative ED Past Medical Hx - Past Medical History Previous Medical History?: Yes Hx Hypertension: Yes Hx CVA: No Hx Heart Attack/AMI: No (normal stress 10-31-16) Hx Congestive Heart Failure: No Hx Diabetes: No Hx Deep Vein Thrombosis: Yes Hx Pulmonary Embolism: Yes Hx GERD: Yes Hx Liver Disease: No Hx Renal Disease: No Hx Sickle Cell Disease: No Hx Arthritis: No Hx Headaches / Migraines: No Hx Seizures: Yes Hx Kidney Stones: No Hx Psychiatric Treatment: Yes (anxiety) Hx Asthma: No Hx COPD: No Hx Tuberculosis: No Hx Dementia: No Hx HIV: No Additional medical history: pericarditis, pt states hyperthyroidism, thyroid storm, PE x2, (R lung 05/2016, L lung 01/2017--on Eliquis), R leg DVT 03/2017, Graves Disease, heart murmur - Surgical History Past Surgical History?: Yes Additional Surgical History: Left arm surgery 02/2017 - Social History Smoking Status: Current Every Day Smoker Substance Use Type: Prescribed - Medications Home Medications: Home Medications Medication Instructions Recorded Confirmed Last Taken Type Quetiapine Fumarate [SEROquel XR] 300 mg PO QHS #20 tab.er.24h 11/07/1605/23/17 Rx ALPRAZolam [Xanax TAB] 0.25 mg PO BID PRN #60 tablet 05/26/17 Unknown Rx Apixaban [Eliquis] 5 mg PO BID #60 tablet 05/26/17 Unknown Rx Methimazole [Tapazole] 10 mg PO Q8HR #30 tablet 05/26/17 Unknown Rx Pantoprazole [Protonix TAB] 40 mg PO BID #30 tablet 05/26/17 Unknown Rx Pregabalin [Lyrica] 100 mg PO QAM #30 capsule 05/26/17 Unknown Rx Propranolol LA [Inderal LA] 60 mg PO Q12H #60 capsule 05/26/17 Unknown Rx Acetaminophen/Codeine [Tylenol 1 tab PO Q6H PRN #10 tab 05/31/17 Unknown Rx /Codeine # 3 tab] ED Physical Exam - General Limitations: No Limitations - Other Other exam information: General: No limitations, patient is alert in no acute distress Head exam: Atraumatic, normocephalic Eyes exam: Normal appearance ENT: Moist mucous membrane, normal oropharynx Neck exam: Normal inspection, full range of motion, no meningismus, mild thyroid enlargement and tenderness Respiratory exam: Clear to auscultation bilateral, no wheezes, rales, crackles Cardiovascular: Normal rate and rhythm, normal heart sounds Abdomen: Soft, nondistended, and nontender, with normal bowel sounds, no rebound, or guarding Extremity: Full range of motion normal inspection no deformity Back: Normal Inspection, full range of motion, no tenderness Neurologic: Alert, oriented x3, cranial nerves intact, no motor or sensory deficit Psychiatric: normal affect, normal mood Skin: Warm, dry, intact ED Course Vital Signs 05/31/17 11:55 Temperature 98.7 F Pulse Rate 70 Respiratory 18 Rate Blood Pressure 123/78 O2 Sat by Pulse 100 Oximetry - Reevaluation(s) Reevaluation #1: 05/31/17 13:49 pt given 1 Tylenol 3 in the ED ED Medical Decision Making - EKG Data -: EKG Interpreted by Me EKG shows normal: sinus rhythm, axis (53), QRS complexes (78), ST-T waves (no stemi/t inv) Rate: normal (72) - Medical Decision Making Patient's symptoms are chronic. Patient had extensive chest pain workup earlier this month which was unremarkable. Patientis supposed to follow-up for further outpatient treatment. She will be prescribed a couple tablets of Tylenol No. 3 and encouraged continue her outpatient follow-up - Differential Diagnosis chronic pain, thyromegaly, atypical chest pain, ND Critical Care Time: No Critical care attestation.: If time is entered above; I have spent that time in minutes in the direct care of this critically ill patient, excluding procedure time. ED Disposition Clinical Impression: Thyromegaly, Hyperthyroidism, Chronic chest pain Disposition: TO HOME OR SELFCARE Is pt being admited?: No Does the pt Need Aspirin: No Condition: Stable Additional Instructions: Follow-up with your doctors as scheduled. You were also were provided a local primary care physician for follow-up Prescriptions: Acetaminophen/Codeine [Tylenol /Codeine # 3 tab] 1 tab PO Q6H PRN #10 tab PRN Reason: Pain Referrals: ASHLEE BELTRE MD [Primary Care Provider] - 2-3 Days your, doctor [Other] - 2-3 Days Time of Disposition: 13:51
== END 2017-05-31 14:03 | disposition home or self-care (01) ==
LOC: ED 11:01
DX: E05.90 Thyrotoxicosis, unspecified without thyrotoxic crisis or storm (principal); E01.0 Iodine-deficiency related diffuse (endemic) goiter; I10 Essential (primary) hypertension; F17.200 Nicotine dependence, unspecified, uncomplicated; Z88.6 Allergy status to analgesic agent; Z88.0 Allergy status to penicillin; Z91.018 Allergy to other foods
CPT/HCPCS: 93005; 93010; 99282

== ENCOUNTER 2017-06-23 16:45 | Emergency (ER) | payer SELFPAY ==
[2017-06-23] MEDS ORDERED: NITRO-BID 2% TP ONE (23:19)
[2017-06-23] MEDS ORDERED: ZOFRAN IV ONE (23:19)
[2017-06-23] MEDS ORDERED: MORPHINE IV ONE (23:19)
--- NOTE | 2017-06-23 23:24 | Emergency Department Report ---
HPI - General Chief Complaint: Chest Pain Time Seen by Provider: 06/23/17 23:07 - HPI HPI: Room 39 The patient is a 36-year-old female presenting with chief complaint chest pain. The patient states that she's had a constant waxing and waning substernal chest pain radiating to back. Patient describes pain as stinging and poking in nature. Patient states she has experienced nausea and vomiting and diaphoresis with her chest pain. Patient also complaint shortness of breath with chest pain. Patient states that she has been constant and worsens with activity. Patient denies cough or fever. The patient states she was diagnosed with a PE approximately 7 months ago and has been compliant with her L Oquist. The patient gives her pain score of 9/10. The patient states she had a normal stress test last year but has never had a cardiac catheterization although her physicians mentioned it will likely be recommended. The patient also has noticed bilateral lower extremity edema for one week. Location: Chest Duration: One-week Quality: Stinging/poking Severity: 910 Modifying factors: [see above] Context: [see above] Mode of transportation: Unknown ED Past Medical Hx - Past Medical History Hx Hypertension: Yes Hx Heart Attack/AMI: No (normal stress 10-31-16) Hx Deep Vein Thrombosis: Yes Hx Pulmonary Embolism: Yes Hx GERD: Yes Hx Seizures: Yes Hx Psychiatric Treatment: Yes (anxiety) Additional medical history: pericarditis, pt states hyperthyroidism, thyroid storm, PE x2, (R lung 05/2016, L lung 01/2017--on Eliquis), R leg DVT 03/2017, Graves Disease, heart murmur - Surgical History Past Surgical History?: No Additional Surgical History: Left arm surgery 02/2017 - Family History Family history: no significant - Social History Smoking Status: Former Smoker (none 6 months) Substance Use Type: Marijuana - Medications Home Medications: Home Medications Medication Instructions Recorded Confirmed Last Taken Type Quetiapine Fumarate [SEROquel XR] 300 mg PO QHS #20 tab.er.24h 11/07/1605/23/17 Rx ALPRAZolam [Xanax TAB] 0.25 mg PO BID PRN #60 tablet 05/26/17 Unknown Rx Apixaban [Eliquis] 5 mg PO BID #60 tablet 05/26/17 Unknown Rx Methimazole [Tapazole] 10 mg PO Q8HR #30 tablet 05/26/17 Unknown Rx Pantoprazole [Protonix TAB] 40 mg PO BID #30 tablet 05/26/17 Unknown Rx Pregabalin [Lyrica] 100 mg PO QAM #30 capsule 05/26/17 Unknown Rx Propranolol LA [Inderal LA] 60 mg PO Q12H #60 capsule 05/26/17 Unknown Rx Acetaminophen/Codeine [Tylenol 1 tab PO Q6H PRN #10 tab 05/31/17 Unknown Rx /Codeine # 3 tab] ED Review of Systems ROS: Stated complaint: CHEST PAIN/VOMITING Other details as noted in HPI Constitutional: diaphoresis. denies: fever Respiratory: shortness of breath, SOB with exertion Cardiovascular: chest pain, dyspnea on exertion Gastrointestinal: nausea, vomiting Physical Exam - Physical Exam Vital Signs: Vital Signs 06/23/17 16:49 Temperature 98.7 F Pulse Rate 89 Respiratory 18 Rate Blood Pressure 144/74 O2 Sat by Pulse 99 Oximetry Physical Exam: GENERAL: The patient is well-developed well-nourished female sitting on stretcher appearing to be in mild discomfort. [] HEENT: Normocephalic. Atraumatic. Extraocular motions are intact. Patient has moist mucous membranes. NECK: Supple. Trachea midline CHEST/LUNGS: Clear to auscultation. There is no respiratory distress noted. HEART/CARDIOVASCULAR: Regular. There is no tachycardia. There is no gallop rub or murmur. ABDOMEN: Abdomen is soft, nontender. Patient has normal bowel sounds. There is no abdominal distention. SKIN: There is no rash. There is no diaphoresis. NEURO: The patient is awake, alert, and oriented. The patient is cooperative. The patient has normal speech MUSCULOSKELETAL: There is no evidence of acute injury. ED Course Vital Signs 06/23/17 16:49 Temperature 98.7 F Pulse Rate 89 Respiratory 18 Rate Blood Pressure 144/74 O2 Sat by Pulse 99 Oximetry ED Medical Decision Making - Lab Data Result diagrams: 06/23/17 23:54 06/23/17 23:54 Laboratory Tests 06/23/17 06/23/17 06/23/17 23:54 23:54 23:54 WBC 7.8 RBC 4.64 Hgb 10.9 Hct 34.9 MCV 75 L MCH 24 L MCHC 31 RDW 17.2 H Plt Count 313 Lymph % (Auto) 50.8 H [place] % (Auto) 9.1 H Eos % (Auto) 2.3 Baso % (Auto) 1.1 Lymph # 4.0 [place] # 0.7 Eos # 0.2 Baso # 0.1 Seg Neutrophils % 36.7 L Seg Neutrophils # 2.9 PT 12.9 INR 0.93 APTT 22.7 L Sodium 135 L Potassium 5.1 H Chloride 101.1 Carbon Dioxide 22 Anion Gap 17 BUN 11 Creatinine 0.6 L Estimated GFR > 60 BUN/Creatinine Ratio 18 Glucose 88 Calcium 8.2 L Total Creatine Kinase 96 CK-MB (CK-2) < 1.0 CK-MB (CK-2) Rel Index 1.0 Troponin T < 0.010 NT-Pro-B Natriuret Pep 34.64 HCG, Qual 06/23/17 23:54 WBC RBC Hgb Hct MCV MCH MCHC RDW Plt Count Lymph % (Auto) [place] % (Auto) Eos % (Auto) Baso % (Auto) Lymph # [place] # Eos # Baso # Seg Neutrophils % Seg Neutrophils # PT INR APTT Sodium Potassium Chloride Carbon Dioxide Anion Gap BUN Creatinine Estimated GFR BUN/Creatinine Ratio Glucose Calcium Total Creatine Kinase CK-MB (CK-2) CK-MB (CK-2) Rel Index Troponin T NT-Pro-B Natriuret Pep HCG, Qual Negative - EKG Data -: EKG Interpreted by [place] EKG shows normal: sinus rhythm Rate: normal - EKG Data When compared to previous EKG there are: previous EKG unavailable Interpretation: other (no ischemic changes seen) - Radiology Data Radiology results: report reviewed (CT chest), image reviewed (CT chest) [address] [address] Cat Scan Report Signed Patient: FELIZ HERRING MR#: [id number] : 1980 Acct:[id number] Age/Sex: 36 / F ADM Date: 06/23/17 Loc: ED Attending Dr: Ordering Physician: JOHN ZAMORA MD Date of Service: 06/23/17 Procedure(s): CT angio chest Accession Number(s): [id number] cc: JOHN ZAMORA MD FINAL REPORT EXAM: CT ANGIO CHEST HISTORY: Chest pain, shortness of breath. TECHNIQUE: CT angiogram of the chest was performed, with axial images obtained after the intravenous administration of contrast. Sagittal and coronal reformatted images were also obtained. Comparison is made with prior study 05/24/2017. FINDINGS: The heart is at the upper normal limits for size. The thoracic aorta is normal in caliber. No filling defect is seen in the central or proximal segmental pulmonary arteries to suggest pulmonary embolus. There is no mediastinal or hilar lymphadenopathy. Minimal amorphous soft tissue in the anterior-superior mediastinum is likely residual thymic tissue, stable. Examination of the lung parenchyma demonstrates mild subpleural consolidation at the posterior left lung base, favor dependent atelectasis over infiltrate, stable. There are superimposed mild dependent changes in the posterior lung zones. The remainder of the lungs are clear. There is no pleural or pericardial effusion. The trachea and visualized proximal airways are patent. The visualized upper abdomen is unremarkable. No discrete osseous abnormality is seen. IMPRESSION: 1. No pulmonary embolism seen in the central or proximal segmental pulmonary arteries. 2. Mild subpleural consultation at the posterior left lung base, favor dependent atelectasis, stable in appearance. Transcribed By: [facility] Dictated By: LEE OSEGUERA MD Electronically Authenticated By: LEE OSEGUERA MD Signed Date/Time: 06/24/17224 DD/ 4 TD/TT: 06/24/17224 - Differential Diagnosis ACS, GERD, pericarditis, PE Critical care attestation.: If time is entered above; I have spent that time in minutes in the direct care of this critically ill patient, excluding procedure time. ED Disposition Clinical Impression: Chest pain Disposition: 09 OP ADMIT IP TO THIS HOSP Is pt being admited?: Yes Does the pt Need Aspirin: No Condition: Fair Instructions: Chest Pain (ED) Referrals: PRIMARY CARE, [Primary Care Provider] - 3-5 Days Time of Disposition: 02:44 (hospitalist paged (Dr Falk))
[2017-06-24 00:05] LABS: Basophils # (Auto) 0.1 K/mm3 (0.0-0.1); Basophils % (Auto) 1.1 % (0.0-1.8); Eosinophils # (Auto) 0.2 K/mm3 (0.0-0.4); Eosinophils % (Auto) 2.3 % (0.0-4.3); Hematocrit 34.9 % (30.3-42.9); Hemoglobin 10.9 gm/dl (10.1-14.3); Lymphocytes % (Auto) 50.8 % (13.4-35.0); Mean Corpuscular HGB Conc 31 % (30-34); Mean Corpuscular Volume 75 fl (79-97); Monocytes # (Auto) 0.7 K/mm3 (0.0-0.8); Monocytes % (Auto) 9.1 % (0.0-7.3); Red Blood Count 4.64 M/mm3 (3.65-5.03); Red Cell Distribution Width 17.2 % (13.2-15.2)
[2017-06-24 00:12] LABS: Mean Corpuscular Hemoglobin 24 pg (28-32); Platelet Count 313 K/mm3 (140-440)
[2017-06-24 00:17] LABS: INR 0.93 (0.87-1.13)
[2017-06-24 00:18] LABS: Partial Thromboplastin Time 22.7 Sec. (24.2-36.6)
[2017-06-24 00:24] LABS: BUN/Creatinine Ratio 18; Blood Urea Nitrogen 11 mg/dL (7-17); Calcium 8.2 mg/dL (8.4-10.2); Hemolysis Index 113
[2017-06-24 00:40] LABS: Creatine Kinase MB < 1.0 ng/mL (0.0-4.0)
--- NOTE | 2017-06-24 02:30 | Cat Scan Report ---
FINAL REPORT EXAM: CT ANGIO CHEST HISTORY: Chest pain, shortness of breath. TECHNIQUE: CT angiogram of the chest was performed, with axial images obtained after the intravenous administration of contrast. Sagittal and coronal reformatted images were also obtained. Comparison is made with prior study 05/24/2017. FINDINGS: The heart is at the upper normal limits for size. The thoracic aorta is normal in caliber. No filling defect is seen in the central or proximal segmental pulmonary arteries to suggest pulmonary embolus. There is no mediastinal or hilar lymphadenopathy. Minimal amorphous soft tissue in the anterior-superior mediastinum is likely residual thymic tissue, stable. Examination of the lung parenchyma demonstrates mild subpleural consolidation at the posterior left lung base, favor dependent atelectasis over infiltrate, stable. There are superimposed mild dependent changes in the posterior lung zones. The remainder of the lungs are clear. There is no pleural or pericardial effusion. The trachea and visualized proximal airways are patent. The visualized upper abdomen is unremarkable. No discrete osseous abnormality is seen. IMPRESSION: 1. No pulmonary embolism seen in the central or proximal segmental pulmonary arteries. 2. Mild subpleural consultation at the posterior left lung base, favor dependent atelectasis, stable in appearance.
[2017-06-24] MEDS ORDERED: MORPHINE ONE (02:50)
[2017-06-24] MEDS ORDERED: MORPHINE IV ONE (02:55)
[2017-06-24] MEDS ORDERED: ZOFRAN IV ONE (04:07)
--- NOTE | 2017-06-24 04:16 | Consultation ---
History of Present Illness - Reason for Consult Consult date: 06/24/17 evaluation for hospital admission Requesting physician: JOHN ZAMORA - History of Present Illness Patient is a 36 year old -[place] female with history of PE and psychiatric disorder, who presented to the ED on account of chest pain. Patient has history of multiple ER visits and hospitalization. She was recently discharged from the hospital about a month ago for the same complaint. Her chest pain is noncardiac in origin and her initial troponin level done in the ED came back negative. Patient was advised to continue taking her eliquis and follow-up with Primary care physician. She reports having accommodation issues, which prevents her from following up with her doctor regularly. This then contributes to her multiple ER visits. Patient has been evaluated in the past with nuclear stress testing which was negative Past History Past Medical History: DVT, hypertension, other (PE, psychiatric disorder, hyperthyroidism) Past Surgical History: Other (left arm surgery) Social history: smoking (ex-smoker), other (smokes marijuana daily, but denies other illicit drug use) Family history: other (reviewed and noncontributory) Medications and Allergies Allergies Allergy/AdvReac Type Severity Reaction Status Date / Time garlic Allergy Unknown Verified 06/23/17 16:49 ibuprofen [From Motrin] Allergy Unknown Verified 06/23/17 16:49 peanut oil Allergy Unknown Verified 06/23/17 16:49 Penicillins Allergy Unknown Verified 06/23/17 16:49 Home Medications Medication Instructions Recorded Confirmed Last Taken Type Quetiapine Fumarate [SEROquel XR] 300 mg PO QHS #20 tab.er.24h 11/07/1605/23/17 Rx ALPRAZolam [Xanax TAB] 0.25 mg PO BID PRN #60 tablet 05/26/17 Unknown Rx Apixaban [Eliquis] 5 mg PO BID #60 tablet 05/26/17 Unknown Rx Methimazole [Tapazole] 10 mg PO Q8HR #30 tablet 05/26/17 Unknown Rx Pantoprazole [Protonix TAB] 40 mg PO BID #30 tablet 05/26/17 Unknown Rx Pregabalin [Lyrica] 100 mg PO QAM #30 capsule 05/26/17 Unknown Rx Propranolol LA [Inderal LA] 60 mg PO Q12H #60 capsule 05/26/17 Unknown Rx Acetaminophen/Codeine [Tylenol 1 tab PO Q6H PRN #10 tab 05/31/17 Unknown Rx /Codeine # 3 tab] Review of Systems All systems: negative (except as documented in the HPI, all other systems were reviewed and negative) Exam - Constitutional Vitals: Temp Pulse Resp BP Pulse Ox 98 F 62 16 137/66 100 06/24/17 02:54 06/24/17 02:54 06/24/17 02:54 06/24/17 02:54 06/24/17 00:58 General appearance: Present: no acute distress - EENT Eyes: Present: PERRL, EOM intact ENT: hearing intact, clear oral mucosa - Neck Neck: Present: supple, normal ROM - Respiratory Respiratory effort: normal Respiratory: bilateral: CTA - Cardiovascular Rhythm: regular Heart Sounds: Present: S1 & S2. Absent: rub, click - Extremities Extremities: pulses symmetrical, No edema Peripheral Pulses: within normal limits - Abdominal General gastrointestinal: Present: soft, non-tender, non-distended, normal bowel sounds Female genitourinary: Present: normal - Integumentary Integumentary: Present: clear, warm, dry - Musculoskeletal Musculoskeletal: gait normal, strength equal bilaterally - Psychiatric Psychiatric: appropriate mood/affect - Neurologic Neurologic: CNII-XII intact, moves all extremities Results - Labs CBC & Chem 7: 06/23/17 23:54 06/23/17 23:54 Labs: Abnormal lab results 06/23/17 06/23/17 06/23/17 Range/Units 23:54 23:54 23:54 MCV 75 L (79-97) fl MCH 24 L (28-32) pg RDW 17.2 H (13.2-15.2) % Lymph % (Auto) 50.8 H (13.4-35.0) % [place] % (Auto) 9.1 H (0.0-7.3) % Seg Neutrophils % 36.7 L (40.0-70.0) % APTT 22.7 L (24.2-36.6) Sec. Sodium 135 L (137-145) mmol/L Potassium 5.1 H (3.6-5.0) mmol/L Creatinine 0.6 L (0.7-1.2) mg/dL Calcium 8.2 L (8.4-10.2) mg/dL Assessment and Plan Atypical chest pain -her troponin level is negative. History of DVT/PE -Continue eliquis History of hyperthyroidism -Continue home medications History of psychiatric disorder -Continue home medications Mild hyperkalemia -Kayexalate x1 dose given History of noncompliance -Patient counseled. Disposition: The patient has very low risk for cardiac disease. Plan: Discharge patient home with clinic follow-up. Prior to discharge, she was chest pain-free
[2017-06-24] MEDS ORDERED: KIONEX PO ONE (04:23)
[2017-06-24 05:13] VITALS: BP 136/69
== END 2017-06-24 05:13 | disposition admitted as inpatient to this hospital (09) ==
LOC: ED 16:45
DX: R07.9 Chest pain, unspecified (principal); I10 Essential (primary) hypertension; K21.9 Gastro-esophageal reflux disease without esophagitis; F12.10 Cannabis abuse, uncomplicated
CPT/HCPCS: 36415; 71275; 80048; 82550; 82553; 83880; 84484; 84703; 85025; 85610; 85730; 93005; 93010; 96374; 96375; 96376; 99284; J2270; J2405; Q9967

== ENCOUNTER 2017-07-08 22:47 | Emergency (ER) | payer OTHER ==
[2017-07-09 00:01] LABS: INR 0.9 (0.87-1.13)
[2017-07-09 00:02] LABS: Partial Thromboplastin Time 24.4 Sec. (24.2-36.6)
[2017-07-09 00:18] LABS: BUN/Creatinine Ratio 24; Blood Urea Nitrogen 19 mg/dL (7-17); Hemolysis Index 13
[2017-07-09 00:34] LABS: Basophils # (Auto) 0.1 K/mm3 (0.0-0.1); Basophils % (Auto) 0.7 % (0.0-1.8); Eosinophils # (Auto) 0.3 K/mm3 (0.0-0.4); Eosinophils % (Auto) 3.1 % (0.0-4.3); Hemoglobin 11.4 gm/dl (10.1-14.3); Lymphocytes # (Auto) 3.7 K/mm3 (1.2-5.4); Lymphocytes % (Auto) 44.3 % (13.4-35.0); Mean Corpuscular HGB Conc 31 % (30-34); Mean Corpuscular Volume 77 fl (79-97); Monocytes # (Auto) 0.7 K/mm3 (0.0-0.8); Monocytes % (Auto) 8.6 % (0.0-7.3); Platelet Count 346 K/mm3 (140-440); Red Blood Count 4.81 M/mm3 (3.65-5.03); Red Cell Distribution Width 17.6 % (13.2-15.2)
[2017-07-09 00:37] LABS: Mean Corpuscular Hemoglobin 24 pg (28-32)
--- NOTE | 2017-07-09 06:40 | Emergency Department Report ---
ED Chest Pain HPI - General Chief Complaint: Chest Pain Stated Complaint: CHEST PAIN Time Seen by Provider: 07/09/17 06:30 Source: patient Mode of arrival: Ambulatory Limitations: No Limitations - History of Present Illness Initial Comments: 36-year-old female with recurrent chest pain. Apparently she has been to this facility several times with similar complaints. She's had a negative CTA. She states that she is compliant with her Eliquis. She states she has a history of DVT and pulmonary embolism. She does not mention her recent CTA here which was negative. She states that recently moved to this area. Actually she has been admitted to this hospital for chest pain workups and here several times for the same. She states that she has no local doctor. However she states that she went to an unknown doctor last week who told her she had pneumonia at the top of both of her lungs. There is no Reported shortness of breath or hemoptysis. Patient does not complain of acute leg pain or swelling. She does have a psychiatric history. MD Complaint: chest pain -: month(s) Onset: during rest Pain Location: other ("at the top of both my lungs") Pain Radiation: none Severity: mild Severity scale (0 -10): 1 Quality: aching Consistency: intermittent Improves With: nothing Worsens With: nothing re: denies: nausea, vomting, diaphoresis, dyspnea, sense of impending doom Other Symptoms: denies: cough, fever, syncope Treatments Prior to Arrival: none - Related Data Previous Rx's Medication Instructions Recorded Last Taken Type Quetiapine Fumarate [SEROquel XR] 300 mg PO QHS #20 tab.er.24h 11/07/16 Rx ALPRAZolam [Xanax TAB] 0.25 mg PO BID PRN #60 tablet 05/26/17 Unknown Rx Apixaban [Eliquis] 5 mg PO BID #60 tablet 05/26/17 Unknown Rx Methimazole [Tapazole] 10 mg PO Q8HR #30 tablet 05/26/17 Unknown Rx Pantoprazole [Protonix TAB] 40 mg PO BID #30 tablet 05/26/17 Unknown Rx Pregabalin [Lyrica] 100 mg PO QAM #30 capsule 05/26/17 Unknown Rx Propranolol LA [Inderal LA] 60 mg PO Q12H #60 capsule 05/26/17 Unknown Rx Acetaminophen/Codeine [Tylenol 1 tab PO Q6H PRN #10 tab 05/31/17 Unknown Rx /Codeine # 3 tab] traMADol [Ultram] 50 mg PO Q6HR PRN #14 tablet 07/09/17 Unknown Rx Allergies Allergy/AdvReac Type Severity Reaction Status Date / Time garlic Allergy Unknown Verified 06/23/17 16:49 ibuprofen [From Motrin] Allergy Unknown Verified 06/23/17 16:49 peanut oil Allergy Unknown Verified 06/23/17 16:49 Penicillins Allergy Unknown Verified 06/23/17 16:49 Heart Score - HEART Score History: Slightly suspicious EKG: Normal Age: < 45 Risk factors: No known risk factors Troponin: < normal limit HEART Score: 0 - Critical Actions Critical Actions: 0-3 pts:0.9-1.7%risk of adverse cardiac event.Candidate for discharge ED Review of Systems ROS: Stated complaint: CHEST PAIN Other details as noted in HPI Constitutional: denies: chills, fever Eyes: denies: eye pain, eye discharge, vision change ENT: denies: ear pain, throat pain Respiratory: denies: cough, shortness of breath, wheezing Cardiovascular: chest pain. denies: palpitations Endocrine: no symptoms reported Gastrointestinal: denies: abdominal pain, nausea, diarrhea Genitourinary: denies: urgency, dysuria, discharge Musculoskeletal: denies: back pain, joint swelling, arthralgia Skin: denies: rash, lesions Neurological: denies: headache, weakness, paresthesias Psychiatric: denies: anxiety, depression Hematological/Lymphatic: denies: easy bleeding, easy bruising ED Past Medical Hx - Past Medical History Previous Medical History?: Yes Hx Hypertension: Yes Hx Heart Attack/AMI: No (normal stress 10-31-16) Hx Deep Vein Thrombosis: Yes Hx Pulmonary Embolism: Yes Hx GERD: Yes Hx Sickle Cell Disease: No Hx Seizures: Yes Hx Psychiatric Treatment: Yes (anxiety) Hx Tuberculosis: No Additional medical history: pericarditis, pt states hyperthyroidism, thyroid storm, PE x2, (R lung 05/2016, L lung 01/2017--on Eliquis), R leg DVT 03/2017, Graves Disease, heart murmur - Surgical History Past Surgical History?: Yes Additional Surgical History: Left arm surgery 02/2017 - Social History Smoking Status: Never Smoker Substance Use Type: None - Medications Home Medications: Home Medications Medication Instructions Recorded Confirmed Last Taken Type Quetiapine Fumarate [SEROquel XR] 300 mg PO QHS #20 tab.er.24h 11/07/1605/23/17 Rx ALPRAZolam [Xanax TAB] 0.25 mg PO BID PRN #60 tablet 05/26/17 Unknown Rx Apixaban [Eliquis] 5 mg PO BID #60 tablet 05/26/17 Unknown Rx Methimazole [Tapazole] 10 mg PO Q8HR #30 tablet 05/26/17 Unknown Rx Pantoprazole [Protonix TAB] 40 mg PO BID #30 tablet 05/26/17 Unknown Rx Pregabalin [Lyrica] 100 mg PO QAM #30 capsule 05/26/17 Unknown Rx Propranolol LA [Inderal LA] 60 mg PO Q12H #60 capsule 05/26/17 Unknown Rx Acetaminophen/Codeine [Tylenol 1 tab PO Q6H PRN #10 tab 05/31/17 Unknown Rx /Codeine # 3 tab] traMADol [Ultram] 50 mg PO Q6HR PRN #14 tablet 07/09/17 Unknown Rx ED Physical Exam - General Limitations: No Limitations General appearance: alert, in no apparent distress - Head Head exam: Present: atraumatic, normocephalic - Eye Eye exam: Present: normal appearance. Absent: scleral icterus - ENT ENT exam: Present: mucous membranes moist - Neck Neck exam: Present: normal inspection - Respiratory Respiratory exam: Present: normal lung sounds bilaterally. Absent: respiratory distress - Cardiovascular Cardiovascular Exam: Present: regular rate, normal rhythm. Absent: systolic murmur, diastolic murmur, rubs, gallop - GI/Abdominal GI/Abdominal exam: Present: soft, normal bowel sounds. Absent: distended, tenderness, guarding, rebound, rigid - Extremities Exam Extremities exam: Present: normal inspection, full ROM, normal capillary refill. Absent: tenderness, joint swelling, calf tenderness - Back Exam Back exam: Present: normal inspection - Neurological Exam Neurological exam: Present: alert, oriented X3, CN II-XII intact. Absent: motor sensory deficit - Psychiatric Psychiatric exam: Present: normal affect, normal mood - Skin Skin exam: Present: warm, dry, intact, normal color. Absent: rash ED Course Vital Signs 05/07/09/17 07/09/17 23:14 06:29 06:54 Temperature 98.7 F 98.0 F Pulse Rate 94 H 88 Respiratory 17 18 18 Rate Blood Pressure 111/68 Blood Pressure 108/47 [Right] O2 Sat by Pulse 98 99 99 Oximetry 07/09/17 07/09/17 06:58 07:00 Temperature Pulse Rate 89 Respiratory 20 21 Rate Blood Pressure 123/82 Blood Pressure [Right] O2 Sat by Pulse Oximetry - Reevaluation(s) Reevaluation #1: Patient admitted to the nurse that she was taking Percocet at home. She requested another type of pain medicine. However on reexam she was resting comfortably and did not request anything else for pain. She stated that she "has appointments with Drs. perry up". 07/09/17 09:59 GENOVEVA score - Genoveva Score Age > 65: (0) No Aspirin use within the Past 7 Days: (0) No 3 or more CAD Risk Factors: (0) No 2 or more Angina events in past 24 hrs: (0) No Known CAD with more than 50% Stenosis: (0) No Elevated Cardiac Markers: (0) No ST Deviation Greater than 0.5mm: (0) No GENOVEVA Score: 0 ED Medical Decision Making - Lab Data Result diagrams: 07/08/17 23:40 07/08/17 23:17 Laboratory Results - last 24 hr 07/08/17 07/08/17 07/08/17 23:17 23:17 23:40 WBC 8.3 RBC 4.81 Hgb 11.4 Hct 37.0 MCV 77 L MCH 24 L MCHC 31 RDW 17.6 H Plt Count 346 Lymph % (Auto) 44.3 H [place] % (Auto) 8.6 H Eos % (Auto) 3.1 Baso % (Auto) 0.7 Lymph # 3.7 [place] # 0.7 Eos # 0.3 Baso # 0.1 Seg Neutrophils % 43.3 Seg Neutrophils # 3.6 PT 12.6 INR 0.90 APTT 24.4 Sodium 140 Potassium 4.6 Chloride 103.1 Carbon Dioxide 22 Anion Gap 20 BUN 19 H Creatinine 0.8 Estimated GFR > 60 BUN/Creatinine Ratio 24 Glucose 102 H Calcium 9.0 Troponin T < 0.010 HCG, Qual 07/08/17 23:40 WBC RBC Hgb Hct MCV MCH MCHC RDW Plt Count Lymph % (Auto) [place] % (Auto) Eos % (Auto) Baso % (Auto) Lymph # [place] # Eos # Baso # Seg Neutrophils % Seg Neutrophils # PT INR APTT Sodium Potassium Chloride Carbon Dioxide Anion Gap BUN Creatinine Estimated GFR BUN/Creatinine Ratio Glucose Calcium Troponin T HCG, Qual Negative Laboratory Results - last 24 hr 07/08/17 07/08/17 07/08/17 23:17 23:17 23:40 WBC 8.3 RBC 4.81 Hgb 11.4 Hct 37.0 MCV 77 L MCH 24 L MCHC 31 RDW 17.6 H Plt Count 346 Lymph % (Auto) 44.3 H [place] % (Auto) 8.6 H Eos % (Auto) 3.1 Baso % (Auto) 0.7 Lymph # 3.7 [place] # 0.7 Eos # 0.3 Baso # 0.1 Seg Neutrophils % 43.3 Seg Neutrophils # 3.6 PT 12.6 INR 0.90 APTT 24.4 Sodium 140 Potassium 4.6 Chloride 103.1 Carbon Dioxide 22 Anion Gap 20 BUN 19 H Creatinine 0.8 Estimated GFR > 60 BUN/Creatinine Ratio 24 Glucose 102 H Calcium 9.0 Troponin T < 0.010 NT-Pro-B Natriuret Pep HCG, Qual 07/08/17 07/09/17 07/09/17 23:40 06:54 07:05 WBC RBC Hgb Hct MCV MCH MCHC RDW Plt Count Lymph % (Auto) [place] % (Auto) Eos % (Auto) Baso % (Auto) Lymph # [place] # Eos # Baso # Seg Neutrophils % Seg Neutrophils # PT INR APTT Sodium Potassium Chloride Carbon Dioxide Anion Gap BUN Creatinine Estimated GFR BUN/Creatinine Ratio Glucose Calcium Troponin T < 0.010 NT-Pro-B Natriuret Pep 6.76 HCG, Qual Negative - EKG Data -: EKG Interpreted by Me EKG shows normal: sinus rhythm, axis, intervals, QRS complexes, ST-T waves Rate: normal - EKG Data Interpretation: other (slight early re-pole) - Radiology Data interpreted by me: Chest x-ray no acute process Critical care attestation.: If time is entered above; I have spent that time in minutes in the direct care of this critically ill patient, excluding procedure time. ED Disposition Clinical Impression: Atypical chest pain, Psychiatric disorder Disposition: DC-01 TO HOME OR SELFCARE Is pt being admited?: No Does the pt Need Aspirin: No Condition: Stable Instructions: Chest Pain (ED) Additional Instructions: Return any acute change or worsening symptoms. Certainly continue your Eliquis. Keep your upcoming appointments. Rx Ultram and needed for pain. Prescriptions: traMADol [Ultram] 50 mg PO Q6HR PRN #14 tablet PRN Reason: Pain Referrals: PRIMARY CARE, [Primary Care Provider] - [facility] Time of Disposition: 10:01
[2017-07-09] MEDS ORDERED: PERCOCET 5/325 PO ONE (07:00)
[2017-07-09] MEDS ORDERED: ZOFRAN ODT PO ONE (07:00)
--- NOTE | 2017-07-09 07:00 | XRay Report ---
FINAL REPORT EXAM: XR CHEST 1V AP HISTORY: hypertension TECHNIQUE: AP portable view(s) of the chest obtained. PRIORS: 05/24/2017, CT chest angiograms from 06/24/2017 and 05/24/2017 FINDINGS: No mediastinal shift. Cardiac silhouette is not enlarged. No pneumothorax, effusion, or focal pulmonary opacity identified. No acute skeletal findings. IMPRESSION: No acute pulmonary finding identified.
[2017-07-09 10:10] VITALS: BP 121/67
== END 2017-07-09 10:10 | disposition home or self-care (01) ==
LOC: ED 22:47
DX: R07.89 Other chest pain (principal); F99 Mental disorder, not otherwise specified; I10 Essential (primary) hypertension; F41.9 Anxiety disorder, unspecified; K21.9 Gastro-esophageal reflux disease without esophagitis; Z86.718 Personal history of other venous thrombosis and embolism; Z86.711 Personal history of pulmonary embolism; Z91.018 Allergy to other foods; Z88.6 Allergy status to analgesic agent; Z91.010 Allergy to peanuts; Z88.0 Allergy status to penicillin
CPT/HCPCS: 36415; 71045; 80048; 83880; 84484; 84703; 85025; 85610; 85730; 93005; 93010; 99284; Q0162

== ENCOUNTER 2017-08-18 21:41 | Emergency (ER) | payer SELFPAY ==
[2017-08-18] MEDS ORDERED: ASPIRIN PO ONE (22:06)
[2017-08-18 22:17] VITALS: BP 113/72
[2017-08-18 22:24] LABS: Basophils # (Auto) 0.1 K/mm3 (0.0-0.1); Basophils % (Auto) 0.9 % (0.0-1.8); Eosinophils # (Auto) 0.1 K/mm3 (0.0-0.4); Hematocrit 36.8 % (30.3-42.9); Hemoglobin 11.6 gm/dl (10.1-14.3); Lymphocytes # (Auto) 2.8 K/mm3 (1.2-5.4); Lymphocytes % (Auto) 23.8 % (13.4-35.0); Mean Corpuscular HGB Conc 32 % (30-34); Mean Corpuscular Volume 72 fl (79-97); Monocytes # (Auto) 0.9 K/mm3 (0.0-0.8); Monocytes % (Auto) 8.1 % (0.0-7.3); Platelet Count 356 K/mm3 (140-440); Red Blood Count 5.11 M/mm3 (3.65-5.03); Red Cell Distribution Width 17.4 % (13.2-15.2)
[2017-08-18 22:25] LABS: Mean Corpuscular Hemoglobin 23 pg (28-32)
[2017-08-18 22:35] LABS: BUN/Creatinine Ratio 17; Blood Urea Nitrogen 10 mg/dL (7-17); Calcium 8.9 mg/dL (8.4-10.2); Hemolysis Index 5
--- NOTE | 2017-08-19 01:07 | Emergency Department Report ---
ED Chest Pain HPI - General Chief Complaint: Chest Pain Stated Complaint: CHEST PAIN Time Seen by Provider: 08/18/17 23:28 Source: patient Mode of arrival: Ambulatory Limitations: No Limitations - History of Present Illness Initial Comments: Ms. Ryan has a history of PE pericarditis DVT paranoid schizophrenia. She has had recurrent chest pain and several hospitalizations to evaluate chest pain. She is currently taking Eliquis. Recent CTA negative for PE. She has had central chest pain constant. Worse with certain position. MD Complaint: chest pain -: Gradual, days(s) (1) Onset: during rest Pain Location: substernal Pain Radiation: none Severity: moderate Quality: sharp Consistency: constant Improves With: nothing Worsens With: nothing - Related Data Previous Rx's Medication Instructions Recorded Last Taken Type Quetiapine Fumarate [SEROquel XR] 300 mg PO QHS #20 tab.er.24h 11/07/16 Rx ALPRAZolam [Xanax TAB] 0.25 mg PO BID PRN #60 tablet 05/26/17 Unknown Rx Apixaban [Eliquis] 5 mg PO BID #60 tablet 05/26/17 Unknown Rx Methimazole [Tapazole] 10 mg PO Q8HR #30 tablet 05/26/17 Unknown Rx Pantoprazole [Protonix TAB] 40 mg PO BID #30 tablet 05/26/17 Unknown Rx Pregabalin [Lyrica] 100 mg PO QAM #30 capsule 05/26/17 Unknown Rx Propranolol LA [Inderal LA] 60 mg PO Q12H #60 capsule 05/26/17 Unknown Rx Acetaminophen/Codeine [Tylenol 1 tab PO Q6H PRN #10 tab 05/31/17 Unknown Rx /Codeine # 3 tab] traMADol [Ultram] 50 mg PO Q6HR PRN #14 tablet 07/09/17 Unknown Rx Allergies Allergy/AdvReac Type Severity Reaction Status Date / Time garlic Allergy Unknown Verified 06/23/17 16:49 ibuprofen [From Motrin] Allergy Unknown Verified 06/23/17 16:49 peanut oil Allergy Unknown Verified 06/23/17 16:49 Penicillins Allergy Unknown Verified 06/23/17 16:49 Heart Score - HEART Score History: Slightly suspicious EKG: Normal Age: < 45 Risk factors: No known risk factors Troponin: < normal limit HEART Score: 0 ED Review of Systems ROS: Stated complaint: CHEST PAIN Other details as noted in HPI Comment: All other systems reviewed and negative Constitutional: denies: fever, malaise Respiratory: denies: cough Cardiovascular: chest pain ED Past Medical Hx - Past Medical History Previous Medical History?: Yes Hx Hypertension: Yes Hx Heart Attack/AMI: No (normal stress 10-31-16) Hx Deep Vein Thrombosis: Yes Hx Pulmonary Embolism: Yes Hx GERD: Yes Hx Sickle Cell Disease: No Hx Seizures: Yes Hx Psychiatric Treatment: Yes (anxiety) Hx Tuberculosis: No Additional medical history: pericarditis, pt states hyperthyroidism, thyroid storm, PE x2, (R lung 05/2016, L lung 01/2017--on Eliquis), R leg DVT 03/2017, Graves Disease, heart murmur - Surgical History Past Surgical History?: Yes Additional Surgical History: Left arm surgery 02/2017 - Social History Smoking Status: Never Smoker Substance Use Type: None - Medications Home Medications: Home Medications Medication Instructions Recorded Confirmed Last Taken Type Quetiapine Fumarate [SEROquel XR] 300 mg PO QHS #20 tab.er.24h 11/07/1605/23/17 Rx ALPRAZolam [Xanax TAB] 0.25 mg PO BID PRN #60 tablet 05/26/17 Unknown Rx Apixaban [Eliquis] 5 mg PO BID #60 tablet 05/26/17 Unknown Rx Methimazole [Tapazole] 10 mg PO Q8HR #30 tablet 05/26/17 Unknown Rx Pantoprazole [Protonix TAB] 40 mg PO BID #30 tablet 05/26/17 Unknown Rx Pregabalin [Lyrica] 100 mg PO QAM #30 capsule 05/26/17 Unknown Rx Propranolol LA [Inderal LA] 60 mg PO Q12H #60 capsule 05/26/17 Unknown Rx Acetaminophen/Codeine [Tylenol 1 tab PO Q6H PRN #10 tab 05/31/17 Unknown Rx /Codeine # 3 tab] traMADol [Ultram] 50 mg PO Q6HR PRN #14 tablet 07/09/17 Unknown Rx ED Physical Exam - General Limitations: No Limitations General appearance: alert, in no apparent distress - Head Head exam: Present: atraumatic, normocephalic - Eye Eye exam: Present: normal appearance - ENT ENT exam: Present: mucous membranes moist - Neck Neck exam: Present: normal inspection - Respiratory Respiratory exam: Present: normal lung sounds bilaterally. Absent: respiratory distress, wheezes, rales, rhonchi - Cardiovascular Cardiovascular Exam: Present: regular rate, normal rhythm, normal heart sounds. Absent: bradycardia, tachycardia, systolic murmur, diastolic murmur, rubs, gallop - GI/Abdominal GI/Abdominal exam: Present: soft, normal bowel sounds. Absent: distended, tenderness, guarding, rebound - Extremities Exam Extremities exam: Present: normal inspection - Back Exam Back exam: Present: normal inspection - Neurological Exam Neurological exam: Present: alert, oriented X3 - Psychiatric Psychiatric exam: Present: normal affect, normal mood - Skin Skin exam: Present: warm, dry, intact, normal color. Absent: rash ED Course Vital Signs 08/18/17 22:16 Temperature 99.1 F Pulse Rate 97 H Respiratory 18 Rate Blood Pressure 113/72 [Right] O2 Sat by Pulse 99 Oximetry GENOVEVA score - Genoveva Score Age > 65: (0) No Aspirin use within the Past 7 Days: (0) No 3 or more CAD Risk Factors: (0) No 2 or more Angina events in past 24 hrs: (0) No Known CAD with more than 50% Stenosis: (0) No Elevated Cardiac Markers: (0) No ST Deviation Greater than 0.5mm: (0) No GENOVEVA Score: 0 ED Medical Decision Making - Lab Data Result diagrams: 08/18/17 22:09 08/18/17 22:05 - EKG Data -: EKG Interpreted by Me EKG shows normal: sinus rhythm, axis, intervals, QRS complexes, ST-T waves Rate: normal - Medical Decision Making Ms. Ryan has recurrent chest pain. Understandably anxious with hx of PE and pericarditis. She was also told that she had pleurisy. Encouraged to continue Eliquis. No indication of acute process. Given tramadol in ED. Critical care attestation.: If time is entered above; I have spent that time in minutes in the direct care of this critically ill patient, excluding procedure time. ED Disposition Clinical Impression: Recurrent chest pain, Hx of pulmonary embolus Disposition: TO HOME OR SELFCARE Is pt being admited?: No Does the pt Need Aspirin: No Condition: Stable Instructions: Chest Pain (ED) Referrals: PRIMARY CARE, [Primary Care Provider] - 3-5 Days Time of Disposition: 01:17
[2017-08-19] MEDS ORDERED: ULTRAM PO ONE (01:17)
== END 2017-08-19 02:10 | disposition home or self-care (01) ==
LOC: ED 21:41
DX: R07.89 Other chest pain (principal); I10 Essential (primary) hypertension; K21.9 Gastro-esophageal reflux disease without esophagitis; Z88.0 Allergy status to penicillin; Z91.018 Allergy to other foods
CPT/HCPCS: 36415; 80048; 84484; 85025; 93005; 93010; 99284

== ENCOUNTER 2017-08-19 07:34 | Emergency (ER) | payer SELFPAY ==
[2017-08-19] MEDS ORDERED: ASPIRIN PO ONE (07:49)
[2017-08-19 08:26] LABS: Basophils # (Auto) 0.1 K/mm3 (0.0-0.1); Basophils % (Auto) 0.7 % (0.0-1.8); Eosinophils # (Auto) 0.1 K/mm3 (0.0-0.4); Eosinophils % (Auto) 0.7 % (0.0-4.3); Hematocrit 35.5 % (30.3-42.9); Hemoglobin 11.2 gm/dl (10.1-14.3); Lymphocytes # (Auto) 2.3 K/mm3 (1.2-5.4); Lymphocytes % (Auto) 20.8 % (13.4-35.0); Mean Corpuscular HGB Conc 32 % (30-34); Mean Corpuscular Volume 72 fl (79-97); Monocytes # (Auto) 0.7 K/mm3 (0.0-0.8); Monocytes % (Auto) 6.2 % (0.0-7.3); Platelet Count 354 K/mm3 (140-440); Red Blood Count 4.91 M/mm3 (3.65-5.03); Red Cell Distribution Width 17.7 % (13.2-15.2)
[2017-08-19 08:29] LABS: Mean Corpuscular Hemoglobin 23 pg (28-32)
[2017-08-19 08:48] LABS: BUN/Creatinine Ratio 22; Blood Urea Nitrogen 13 mg/dL (7-17); Calcium 9.2 mg/dL (8.4-10.2); Hemolysis Index 3
--- NOTE | 2017-08-19 11:10 | XRay Report ---
CHEST TWO VIEWS: 08/19/17 07:34:00 CLINICAL: Chest pain. COMPARISON: 07/09/17 FINDINGS: Normal heart and pulmonary vasculature. The lungs are normally expanded and clear.The bones and soft tissues are unremarkable. IMPRESSION: Normal chest.
[2017-08-19 11:49] LABS: INR 2.48 (0.87-1.13)
[2017-08-19 14:58] VITALS: BP 128/74
--- NOTE | 2017-08-19 16:33 | Emergency Department Report ---
ED Chest Pain HPI - General Chief Complaint: Chest Pain Stated Complaint: CHEST PAIN Time Seen by Provider: 08/19/17 16:23 Source: patient Mode of arrival: Ambulatory Limitations: No Limitations - History of Present Illness Initial Comments: 36-year-old woman presents with persistent constant anterior chest pain for past several weeks, worsening over the past several days, reporting the pain is now constant, although increased with deep inspiration or some movements. Patient is quite concerned, reporting that she had evaluation at [facility] in [facility] several weeks ago, where CT angiography was performed , and she was told there was a clot in her aorta, pointing to her left upper chest. She was hospitalized for several days, placed on warfarin, discharged on warfarin, which she is still taking, but reports she only has several additional days medication. There's been no fever chills or diaphoresis, no cough or congestion. Patient does not smoke. Patient has past history of thromboembolism with 2 episodes of pulmonary embolus, as well as pericarditis, and frequent emergency department visits for chest pain, presents with the same anterior chest pain over the past day or 2, with previous evaluation within the past 24 hour period, as well as 2 episodes in the preceding month,, as well as chest CT angiography in May 2017, as well as nuclear myocardial perfusion scan in May 2017, both of which were negative , with ejection fraction of 69%. Pain is characterized as aching, somewhat stabbing, increased with deep breathing or some other movements, with radiation to arm. Pain was initially intermittent but lasting several hours during the course of the day, during the initial worsening., But is now constant over the past 4 or 5 days. She had been taken some Tylenol with Codeine, which was left over from her hospitalization, which she ran out of, and she's been taken her ibuprofen over- the-counter, although she reports that she is allergic to this. Past medical history significant for above-mentioned thromboembolism, recurrent pulmonary embolism, paranoid schizophrenia with delusions and prior psychosis, anxiety disorder, GERD, hyperthyroidism with prior thyroid storm.\ Patient has no local physician, and most of her emergency department visits appear to be the source of her primary care. She reports she has appointments to see physicians and a couple of weeks, but is concerned about waiting until then, for fear that there something more serious. -: Gradual, week(s) Onset: during rest Pain Location: left chest, other (anterior chest, worse on the left) Pain Radiation: LUE Severity: moderate Severity scale (0 -10): 8 Quality: aching, sharp Consistency: constant Improves With: nothing Worsens With: inspiration, movement re: denies: nausea Other Symptoms: denies: cough, fever - Related Data Previous Rx's Medication Instructions Recorded Last Taken Type Quetiapine Fumarate [SEROquel XR] 300 mg PO QHS #20 tab.er.24h 11/07/16 Rx ALPRAZolam [Xanax TAB] 0.25 mg PO BID PRN #60 tablet 05/26/17 Unknown Rx Apixaban [Eliquis] 5 mg PO BID #60 tablet 05/26/17 Unknown Rx Methimazole [Tapazole] 10 mg PO Q8HR #30 tablet 05/26/17 Unknown Rx Pantoprazole [Protonix TAB] 40 mg PO BID #30 tablet 05/26/17 Unknown Rx Pregabalin [Lyrica] 100 mg PO QAM #30 capsule 05/26/17 Unknown Rx Propranolol LA [Inderal LA] 60 mg PO Q12H #60 capsule 05/26/17 Unknown Rx Acetaminophen/Codeine [Tylenol 1 tab PO Q6H PRN #10 tab 05/31/17 Unknown Rx /Codeine # 3 tab] traMADol [Ultram] 50 mg PO Q6HR PRN #14 tablet 07/09/17 Unknown Rx Acetaminophen/Codeine [Tylenol 1 tab PO Q6H PRN #20 tab 08/19/17 Unknown Rx /Codeine # 3 tab] Allergies Allergy/AdvReac Type Severity Reaction Status Date / Time garlic Allergy Unknown Verified 06/23/17 16:49 ibuprofen [From Motrin] Allergy Unknown Verified 06/23/17 16:49 peanut oil Allergy Unknown Verified 06/23/17 16:49 Penicillins Allergy Unknown Verified 06/23/17 16:49 Heart Score - HEART Score History: Slightly suspicious EKG: Normal Age: < 45 Risk factors: No known risk factors Troponin: < normal limit HEART Score: 0 ED Review of Systems ROS: Stated complaint: CHEST PAIN Other details as noted in HPI Comment: All other systems reviewed and negative Constitutional: denies: chills, diaphoresis, fever, malaise ENT: denies: throat pain Respiratory: denies: cough, shortness of breath, SOB with exertion Cardiovascular: chest pain. denies: edema, syncope, paroxysmal nocturnal dyspnea Endocrine: no symptoms reported Gastrointestinal: nausea. denies: vomiting, diarrhea Genitourinary: denies: dysuria Musculoskeletal: denies: back pain Skin: denies: rash Neurological: denies: headache, numbness, paresthesias, abnormal gait Psychiatric: anxiety, other. denies: suicidal thoughts Hematological/Lymphatic: denies: easy bleeding ED Past Medical Hx - Past Medical History Hx Hypertension: Yes Hx Heart Attack/AMI: No (normal stress 10-31-16, normal perfusion scan May 2017 ) Hx Deep Vein Thrombosis: Yes (previous treatment L Oquist, recent and current treatment with warfarin) Hx Pulmonary Embolism: Yes Hx GERD: Yes Hx Sickle Cell Disease: No Hx Seizures: Yes Hx Psychiatric Treatment: Yes (anxiety) Hx Tuberculosis: No Additional medical history: pericarditis, pt states hyperthyroidism, thyroid storm, PE x2, (R lung 05/2016, L lung 01/2017--on Eliquis), R leg DVT 03/2017, Graves Disease, heart murmur - Surgical History Additional Surgical History: Left arm surgery 02/2017 - Social History Smoking Status: Never Smoker - Medications Home Medications: Home Medications Medication Instructions Recorded Confirmed Last Taken Type Quetiapine Fumarate [SEROquel XR] 300 mg PO QHS #20 tab.er.24h 11/07/1605/23/17 Rx ALPRAZolam [Xanax TAB] 0.25 mg PO BID PRN #60 tablet 05/26/17 Unknown Rx Apixaban [Eliquis] 5 mg PO BID #60 tablet 05/26/17 Unknown Rx Methimazole [Tapazole] 10 mg PO Q8HR #30 tablet 05/26/17 Unknown Rx Pantoprazole [Protonix TAB] 40 mg PO BID #30 tablet 05/26/17 Unknown Rx Pregabalin [Lyrica] 100 mg PO QAM #30 capsule 05/26/17 Unknown Rx Propranolol LA [Inderal LA] 60 mg PO Q12H #60 capsule 05/26/17 Unknown Rx Acetaminophen/Codeine [Tylenol 1 tab PO Q6H PRN #10 tab 05/31/17 Unknown Rx /Codeine # 3 tab] traMADol [Ultram] 50 mg PO Q6HR PRN #14 tablet 07/09/17 Unknown Rx Acetaminophen/Codeine [Tylenol 1 tab PO Q6H PRN #20 tab 08/19/17 Unknown Rx /Codeine # 3 tab] ED Physical Exam - General Limitations: No Limitations General appearance: alert, in no apparent distress - Head Head exam: Present: atraumatic, normocephalic - Eye Eye exam: Present: normal appearance, PERRL, EOMI - ENT ENT exam: Present: normal exam - Neck Neck exam: Present: normal inspection, full ROM. Absent: tenderness - Respiratory Respiratory exam: Present: normal lung sounds bilaterally, chest wall tenderness (costochondral area, left pectoralis muscle, reproducible pain) - Cardiovascular Cardiovascular Exam: Present: regular rate, normal heart sounds. Absent: systolic murmur, diastolic murmur - GI/Abdominal GI/Abdominal exam: Present: soft. Absent: tenderness, guarding - Rectal Rectal exam: Present: deferred - Extremities Exam Extremities exam: Present: normal inspection, full ROM. Absent: pedal edema ED Course Vital Signs 08/19/17 08/19/17 07:44 14:57 Temperature 37.2 C Pulse Rate 87 74 Respiratory 16 16 Rate Blood Pressure 120/74 Blood Pressure 128/74 [Left] O2 Sat by Pulse 96 98 Oximetry GENOVEVA score - Genoveva Score Age > 65: (0) No Aspirin use within the Past 7 Days: (0) No 3 or more CAD Risk Factors: (0) No 2 or more Angina events in past 24 hrs: (0) No Known CAD with more than 50% Stenosis: (0) No Elevated Cardiac Markers: (0) No ST Deviation Greater than 0.5mm: (0) No GENOVEVA Score: 0 ED Medical Decision Making - Lab Data Result diagrams: 08/19/17 08:06 08/19/17 08:06 - EKG Data -: EKG Interpreted by [facility] EKG shows normal: sinus rhythm, axis, intervals, QRS complexes, ST-T waves - EKG Data When compared to previous EKG there are: no significant change - Medical Decision Making Patient has chronic chest pain, which is likely secondary to her underlying tension, probable chronic anxiety disorder, aggravated by worrying about possible diagnoses. She has been evaluated for acute cord syndrome, has negative troponins with several day history of chronic pain and CT angiography of the chest shows a chronic defect in the mid descending aorta, which appears to be a filling defect related either to a soft plaque, for a neural thrombus. In any case this was present on previous scan of 06/24/2017, not felt to be acute, and is likely source of previous identified defect. Remainder of her labs are stable. Patient is clearly stable for discharge, has follow-up examination with physicians in 2 weeks, will be given copy of CT reading, for evaluation by primary care doctor, and discussion of whether warfarin is needed, and although there appears to be a little reason to consider continuing warfarin, I will defer this discussion to her primary physician who will be managing her ongoing care, and will give her refill, since she'll have several days medication left, which will last her until her physician's visit. Patient will also be medicated with codeine for chest discomfort, and advised physical measures such as warm compresses. Critical Care Time: No Critical care attestation.: If time is entered above; I have spent that time in minutes in the direct care of this critically ill patient, excluding procedure time. ED Disposition Clinical Impression: Chest wall pain, chronic, Anxiety, Aortic mural thrombus Disposition: DC-01 TO HOME OR SELFCARE Is pt being admited?: No Does the pt Need Aspirin: No Condition: Stable Instructions: Chest Pain (ED) Additional Instructions: We have evaluated today for chest pain, and source of discomfort is muscular where the chest muscles attach to the sternum and ribs, causing soreness called costochondritis. This is not related to her heart, and heart evaluation was entirely negative, including lab tests, EKGs and chest x-ray. Angiography was performed of the chest because of the history of a problem with aorta, and we have found a chronic condition, called mural thrombus, which is stable, and which was present a month ago. We are given a copy of the results for you to show to your doctor at your repeat visit scheduled in 2 weeks, and you can discuss whether you need to continue taking warfarin. In the meantime, we will treat her continue to take the warfarin as before and have given you a refill prescription for that time. We're also giving U Tylenol with Codeine to take for the discomfort in the chest, and he may apply warm compresses in the area that is sore, for comfort. Gentle stretching exercises will help as well. Prescriptions: Acetaminophen/Codeine [Tylenol /Codeine # 3 tab] 1 tab PO Q6H PRN #20 tab PRN Reason: Pain, Moderate (4-6) Referrals: PRIMARY CARE, [Primary Care Provider] - 3-5 Days Time of Disposition: 19:32
[2017-08-19] MEDS ORDERED: TYLENOL #3 PO ONE (16:50)
[2017-08-19] MEDS ORDERED: XYLOCAINE 1% 20 mL ONE (17:37)
[2017-08-19] MEDS ORDERED: XYLOCAINE 1% 20 mL INFILTRATI ONE (18:25)
--- NOTE | 2017-08-19 19:13 | Cat Scan Report ---
FINAL REPORT EXAM: CT ANGIO CHEST HISTORY: chest pain, vague hx recent "clot on aorta" by CT TECHNIQUE: CT chest CT angiogram with reconstructions PRIORS: Comparison is dated June 24, 2017 FINDINGS: There is no evidence of filling defect within the central pulmonary vasculature to suggest the presence of acute pulmonary embolus. No evidence of mediastinal pathologic lymph node enlargement There is a small filling defect within mid descending thoracic aorta this was present previously the a portion of this appears slow intraluminal on the current exam. No evidence for dissection. No focal pulmonary infiltrate identified. No pleural fluid collection seen. No acute pulmonary abnormality noted. Visualized portion of the upper abdomen demonstrates no acute change. IMPRESSION: Small filling defect within mid descending thoracic aorta of this was present previously a portion of this appears intraluminal on the current study most likely reflecting a small mural thrombus or soft plaque. No evidence for dissection. No CT evidence of acute pulmonary embolus
== END 2017-08-19 20:14 | disposition home or self-care (01) ==
LOC: ED 07:34
DX: I74.10 Embolism and thrombosis of unspecified parts of aorta (principal); R07.89 Other chest pain; F41.9 Anxiety disorder, unspecified; I10 Essential (primary) hypertension; K21.9 Gastro-esophageal reflux disease without esophagitis; Z86.718 Personal history of other venous thrombosis and embolism; Z91.018 Allergy to other foods; Z86.711 Personal history of pulmonary embolism
CPT/HCPCS: 36415; 71046; 71275; 80048; 84484; 85025; 85379; 85610; 93005; 93010; 99285; Q9967

== ENCOUNTER 2017-08-22 18:21 | Inpatient (IN) | payer OTHER ==
[2017-08-22] MEDS ORDERED: ASPIRIN PO ONE (18:31)
[2017-08-22 20:25] LABS: INR 1.8 (0.87-1.13)
[2017-08-22 20:26] LABS: Partial Thromboplastin Time 30.6 Sec. (24.2-36.6)
[2017-08-22 20:34] LABS: Basophils # (Auto) 0.1 K/mm3 (0.0-0.1); Basophils % (Auto) 0.7 % (0.0-1.8); Eosinophils # (Auto) 0.1 K/mm3 (0.0-0.4); Eosinophils % (Auto) 1.5 % (0.0-4.3); Hematocrit 34.1 % (30.3-42.9); Hemoglobin 10.7 gm/dl (10.1-14.3); Lymphocytes # (Auto) 2.4 K/mm3 (1.2-5.4); Lymphocytes % (Auto) 26.1 % (13.4-35.0); Mean Corpuscular HGB Conc 31 % (30-34); Mean Corpuscular Volume 73 fl (79-97); Monocytes # (Auto) 0.8 K/mm3 (0.0-0.8); Monocytes % (Auto) 8.8 % (0.0-7.3); Platelet Count 404 K/mm3 (140-440); Red Blood Count 4.66 M/mm3 (3.65-5.03); Red Cell Distribution Width 17.7 % (13.2-15.2)
[2017-08-22 20:35] LABS: Mean Corpuscular Hemoglobin 23 pg (28-32)
[2017-08-22 21:02] LABS: BUN/Creatinine Ratio 24; Blood Urea Nitrogen 17 mg/dL (7-17); Calcium 9.2 mg/dL (8.4-10.2); Hemolysis Index 3
[2017-08-22] MEDS ORDERED: ASPIRIN ONE (21:14)
[2017-08-22] MEDS ORDERED: NACL 0.9% 1000 ML 1,000 ML IV ONE (21:33)
--- NOTE | 2017-08-22 21:41 | Emergency Department Report ---
ED Chest Pain HPI - General Chief Complaint: Chest Pain Stated Complaint: MEDICAL CLEARANCE Time Seen by Provider: 08/22/17 20:20 Source: patient Mode of arrival: Ambulatory Limitations: No Limitations - History of Present Illness Initial Comments: 36-year-old AA female presents to the emergency department with 2 complaints. First, the patient says she's been having a few days of midsternal chest pain and shortness of breath. The patient says that she has a known history of pulmonary embolism and DVT but that she was also found recently to have "a clot in my aorta." The patient was here for similar symptoms and/or complaints 4 days ago and was worked up and says "they found the same clot" and then the patient was discharged home. The patient previously was on Eliquist, but says she was recently switched to warfarin and says she has been taking it compliantly. 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 She had a negative stress test here in May of this year. Patient has a past medical history of hypertension , seizures, previous pericarditis, hyperthyroidism, Graves' disease. The patient's second complaint is that she is having auditory hallucinations and the voices are telling her to kill herself. She says that she feels very depressed over her medical issues and her unstable living situation. She says that there is some questionable history of schizophrenia but that she takes Seroquel for night terrors. She does not have any primary care physician or gas line repairer but says she has an appointment coming up on the at a clinic for both of these doctors. She is a former smoker and denies any illicit drug use. - Related Data Previous Rx's Medication Instructions Recorded Last Taken Type Quetiapine Fumarate [SEROquel XR] 300 mg PO QHS #20 tab.er.24h 11/07/16 Rx ALPRAZolam [Xanax TAB] 0.25 mg PO BID PRN #60 tablet 05/26/17 Unknown Rx Apixaban [Eliquis] 5 mg PO BID #60 tablet 05/26/17 Unknown Rx Methimazole [Tapazole] 10 mg PO Q8HR #30 tablet 05/26/17 Unknown Rx Pantoprazole [Protonix TAB] 40 mg PO BID #30 tablet 05/26/17 Unknown Rx Pregabalin [Lyrica] 100 mg PO QAM #30 capsule 05/26/17 Unknown Rx Propranolol LA [Inderal LA] 60 mg PO Q12H #60 capsule 05/26/17 Unknown Rx Acetaminophen/Codeine [Tylenol 1 tab PO Q6H PRN #10 tab 05/31/17 Unknown Rx /Codeine # 3 tab] traMADol [Ultram] 50 mg PO Q6HR PRN #14 tablet 07/09/17 Unknown Rx Acetaminophen/Codeine [Tylenol 1 tab PO Q6H PRN #20 tab 08/19/17 Unknown Rx /Codeine # 3 tab] Allergies Allergy/AdvReac Type Severity Reaction Status Date / Time garlic Allergy Unknown Verified 06/23/17 16:49 ibuprofen [From Motrin] Allergy Unknown Verified 06/23/17 16:49 peanut oil Allergy Unknown Verified 06/23/17 16:49 Penicillins Allergy Unknown Verified 06/23/17 16:49 Heart Score - HEART Score History: Moderately suspicious EKG: Non-specific Age: < 45 Risk factors: 1-2 risk factors Troponin: < normal limit HEART Score: 3 - Critical Actions Critical Actions: 0-3 pts:0.9-1.7%risk of adverse cardiac event.Candidate for discharge ED Review of Systems ROS: Stated complaint: MEDICAL CLEARANCE Other details as noted in HPI Comment: All other systems reviewed and negative Constitutional: denies: chills, fever Eyes: denies: eye pain, eye discharge, vision change ENT: denies: ear pain, throat pain Respiratory: shortness of breath. denies: cough Cardiovascular: chest pain. denies: palpitations Gastrointestinal: denies: abdominal pain, nausea, diarrhea Genitourinary: denies: urgency, dysuria, discharge Musculoskeletal: denies: back pain, joint swelling, arthralgia Skin: denies: rash, lesions Neurological: denies: headache, weakness, paresthesias Psychiatric: depression, auditory hallucinations, suicidal thoughts ED Past Medical Hx - Past Medical History Hx Hypertension: Yes Hx Heart Attack/AMI: No (normal stress 10-31-16, normal perfusion scan May 2017 ) Hx Deep Vein Thrombosis: Yes (previous treatment Eliquis, recent and current treatment with warfarin) Hx Pulmonary Embolism: Yes Hx GERD: Yes Hx Sickle Cell Disease: No Hx Seizures: Yes Hx Psychiatric Treatment: Yes (anxiety) Hx Tuberculosis: No Additional medical history: pericarditis, pt states hyperthyroidism, thyroid storm, PE x2, (R lung 05/2016, L lung 01/2017--on Eliquis), R leg DVT 03/2017, Graves Disease, heart murmur - Surgical History Additional Surgical History: Left arm surgery 02/2017 - Social History Smoking Status: Never Smoker Substance Use Type: None - Medications Home Medications: Home Medications Medication Instructions Recorded Confirmed Last Taken Type Quetiapine Fumarate [SEROquel XR] 300 mg PO QHS #20 tab.er.24h 11/07/1605/23/17 Rx ALPRAZolam [Xanax TAB] 0.25 mg PO BID PRN #60 tablet 05/26/17 Unknown Rx Apixaban [Eliquis] 5 mg PO BID #60 tablet 05/26/17 Unknown Rx Methimazole [Tapazole] 10 mg PO Q8HR #30 tablet 05/26/17 Unknown Rx Pantoprazole [Protonix TAB] 40 mg PO BID #30 tablet 05/26/17 Unknown Rx Pregabalin [Lyrica] 100 mg PO QAM #30 capsule 05/26/17 Unknown Rx Propranolol LA [Inderal LA] 60 mg PO Q12H #60 capsule 05/26/17 Unknown Rx Acetaminophen/Codeine [Tylenol 1 tab PO Q6H PRN #10 tab 05/31/17 Unknown Rx /Codeine # 3 tab] traMADol [Ultram] 50 mg PO Q6HR PRN #14 tablet 07/09/17 Unknown Rx Acetaminophen/Codeine [Tylenol 1 tab PO Q6H PRN #20 tab 08/19/17 Unknown Rx /Codeine # 3 tab] ED Physical Exam - General Limitations: No Limitations - Other Other exam information: GENERAL: The patient is well-developed well-nourished. HENT: Normocephalic. Atraumatic. Patient has moist mucous membranes. EYES: Extraocular motions are intact. Pupils equal reactive to light bilaterally. NECK: Supple. Trach is midline. CHEST/LUNGS: Clear to auscultation. There is no respiratory distress noted. HEART/CARDIOVASCULAR: Regular. There is mild tachycardia. There is no murmur. ABDOMEN: Abdomen is soft, nontender. Patient has normal bowel sounds. There is no abdominal distention. SKIN: Skin is warm and dry. NEURO: The patient is awake, alert, and oriented. The patient is cooperative. The patient has no focal neurologic deficits. The patient has normal speech and gait. Cranial nerves II through XII grossly intact. MUSCULOSKELETAL: There is no tenderness or deformity. There is no limitation range of motion. There is no evidence of acute injury. ED Course Vital Signs 08/22/17 08/22/17 08/22/17 18:26 21:42 22:27 Temperature 97.9 F Pulse Rate 115 H 80 Respiratory 16 25 H Rate Blood Pressure 128/67 Blood Pressure 104/61 [Left] O2 Sat by Pulse 98 98 97 Oximetry 08/22/17 08/22/17 08/22/17 22:30 22:45 22:47 Temperature Pulse Rate 77 81 Respiratory 22 23 25 H Rate Blood Pressure 107/63 121/67 Blood Pressure [Left] O2 Sat by Pulse 96 98 Oximetry 08/22/17 08/22/17 08/22/17 23:00 23:15 23:17 Temperature Pulse Rate 86 74 Respiratory 25 H 21 16 Rate Blood Pressure 127/82 118/77 Blood Pressure [Left] O2 Sat by Pulse Oximetry 08/22/17 08/22/17 08/22/17 23:21 23:30 23:44 Temperature 97.8 F Pulse Rate 81 84 83 Respiratory 22 26 H 16 Rate Blood Pressure 118/77 118/77 Blood Pressure 120/60 [Left] O2 Sat by Pulse 99 Oximetry GENOVEVA score - Genoveva Score Age > 65: (0) No Aspirin use within the Past 7 Days: (0) No 3 or more CAD Risk Factors: (0) No 2 or more Angina events in past 24 hrs: (1) Yes Known CAD with more than 50% Stenosis: (0) No Elevated Cardiac Markers: (0) No ST Deviation Greater than 0.5mm: (0) No GENOVEVA Score: 1 ED Medical Decision Making - Lab Data Result diagrams: 08/22/17 19:44 08/22/17 19:44 - EKG Data -: EKG Interpreted by Me EKG shows normal: sinus rhythm, axis, intervals, QRS complexes (early repolarization), ST-T waves Rate: tachycardia (101 bpm) - EKG Data When compared to previous EKG there are: no significant change Interpretation: unchanged when compared t (08/19/17) - Radiology Data Radiology results: image reviewed interpreted by me: Chest x-ray does not show any acute process. There are no pleural effusions, obvious pneumonia and there is no pneumothorax. - Medical Decision Making Patient presents with complaint of some chest pain and shortness of breath but also with complaint of auditory hallucinations and suicidal ideations. For the psychiatric complaints, the patient requires a 1013 and at some point may require inpatient psychiatric admission. Regarding the patient's chest pain, EKG does not show any signs of ST elevation UT or any change from previous EKGs. Chest x-ray does not show any acute process. Patient's first troponin is negative. Her Coumadin level is close to a therapeutic level at 1.8. She had a CT angiography done a few days ago that did not show any pulmonary embolism but does show a chronic aortic mural thrombus. With this finding and her continued tachycardia and complaint of chest pain, I do not feel that I can appropriately medically clear this patient for psychiatric transfer. The patient will be admitted to the hospital for further evaluation and possible cardiac consultation and has been accepted for admission by the hospitalist, Dr. Puente. - Differential Diagnosis UT, PE, pneumonia, GERD, depression, schizophrenia Critical Care Time: No Critical care attestation.: If time is entered above; I have spent that time in minutes in the direct care of this critically ill patient, excluding procedure time. ED Disposition Clinical Impression: Suicidal ideations, Auditory hallucinations, Aortic mural thrombus Chest pain Qualifiers: Chest pain type: unspecified Qualified Code(s): R07.9 - Chest pain, unspecified Disposition: OP ADMIT IP TO THIS HOSP Is pt being admited?: Yes Condition: Fair Time of Disposition: 02:26
[2017-08-22] MEDS ORDERED: SODIUM CHLORIDE FLUSH SYRINGE 10 ML IV PRN (22:29)
[2017-08-22] MEDS ORDERED: ZOFRAN IV PRN (22:29)
--- NOTE | 2017-08-22 22:29 | History and Physical Report ---
History of Present Illness Date of examination: 08/22/17 History of present illness: 36-year-old woman with history of hypertension, anxiety, PE, DVT, seizure, hypothyroidism, bipolar, schizophrenia comes emergency room with complaints of chest pain. States she was diagnosed with a clot in her aorta one week ago. Pain is in the left and center of chest which he describes as sharp pain, burning sensation, intermittent, unable to say how long it lasts,intensity 6/10 , no radiation, cannot identify exacerbating over the counter. Patient states she had a syncopal episode for a few seconds she was walking. Admits to nausea vomiting, shortness of breath, no diaphoresis or palpitation. Also complaining of suicidal thoughts over the last 2 weeks, she sees ghostly figures that tells her to harm herself Review of systems Constitutional: no weight loss, chills Ears, eyes, nose, mouth and throat: no nasal congestion, no nasal discharge, no sinus pressure, no vision change, no red eye. Neck: No neck pain or rigidity. Cardiovascular: no palpitations Respiratory: No cough, shortness of breath Gastrointestinal: no abdominal pain, hematochezia Genitourinary : no dysuria, frequency , no hematuria Musculoskeletal: no joint swelling or muscle ache Integumentary: no rash, no pruritis Neurological: no parathesias, no numbness, no focal weakness Endocrine: no cold or heat intolerance, no polyuria or polydipsia Hematologic/Lymphatic: no easy bruising, no easy bleeding, no gland swelling Allergic/Immunologic: no urticaria, no angioedema. PAST MEDICAL HISTORY: hypertension, anxiety, PE, DVT, seizure, hypothyroidism, bipolar, schizophrenia PAST SURGICAL HISTORY: Left arm SOCIAL HISTORY: Admits to tobacco, no drugs, alcohol FAMILY HISTORY: Hypertension Medications and Allergies Allergies Allergy/AdvReac Type Severity Reaction Status Date / Time garlic Allergy Unknown Verified 06/23/17 16:49 ibuprofen [From Motrin] Allergy Unknown Verified 06/23/17 16:49 peanut oil Allergy Unknown Verified 06/23/17 16:49 Penicillins Allergy Unknown Verified 06/23/17 16:49 Home Medications Medication Instructions Recorded Confirmed Last Taken Type Quetiapine Fumarate [SEROquel XR] 300 mg PO QHS #20 tab.er.24h 11/07/1605/23/17 Rx ALPRAZolam [Xanax TAB] 0.25 mg PO BID PRN #60 tablet 05/26/17 08/30/17 Unknown Rx Pregabalin [Lyrica] 100 mg PO QAM #30 capsule 05/26/17 08/30/17 Unknown Rx Acetaminophen [Acetaminophen TAB] 650 mg PO Q4H PRN #30 tablet 08/24/17 Unknown Rx Methimazole [Tapazole] 10 mg PO Q8HR #90 tablet 08/24/17 08/30/17 Unknown Rx Pantoprazole [Protonix TAB] 40 mg PO BID #60 tablet 08/24/17 08/30/17 Unknown Rx Propranolol LA [Inderal LA] 60 mg PO Q12HR #60 capsule 08/24/17 08/30/17 Unknown Rx Warfarin [Coumadin] 5 mg PO DAILY@1700 #30 tablet 08/24/17 08/30/17 Unknown Rx Active Meds: Active Medications Sodium Chloride (Nacl 0.9% 1000 Ml) 1,000 mls @ 125 mls/hr IV ONCE ONE Stop: 08/23/17 05:32 Last Admin: 08/22/17 22:19 Dose: 125 mls/hr Warfarin Sodium (Coumadin) 5 mg PO ONCE ONE; Protocol Stop: 08/23/17 22:27 Warfarin Sodium (Coumadin Pharmacy To Dose) 1 each PO PKCONSULT [facility] Exam - Physical Exam Narrative exam: Gen. appearance: Patient lying in bed, no apparent distress HEENT: Normocephalic, atraumatic, pupils equally round and reactive to light, eyes are , extraocular movement intact, and no sclericterus,. No JVD or thyromegaly or nodule,neck supple, no carotid bruit ,mucous membranes moist, no exudate or erythema Heart: S1, S2, regular rate and rhythm Lungs: Clear bilaterally, breathing comfortable Abdomen: Positive bowel sounds, non-tender, nondistended, no organomegaly Extremity:no edema cyanosis, clubbing Skin: no rash, dry, warm Neuro: Oriented 3, cranial nerves II-12 intact, speech is fluent, motor and sensory intact - Constitutional Vitals: Temp Pulse Resp BP Pulse Ox 97.9 F 80 25 H 104/61 97 08/22/17 18:26 08/22/17 22:27 08/22/17 22:27 08/22/17 22:27 08/22/17 22:27 Results - Labs CBC & Chem 7: 08/23/17 07:54 08/23/17 07:54 Labs: Abnormal lab results 08/22/17 08/22/17 08/22/17 Range/Units 19:44 19:44 19:44 MCV 73 L (79-97) fl MCH 23 L (28-32) pg RDW 17.7 H (13.2-15.2) % [place] % (Auto) 8.8 H (0.0-7.3) % PT 22.0 H (12.2-14.9) Sec. INR 1.80 H (0.87-1.13) TSH < 0.005 L (0.270-4.200) mlU/mL - Imaging and Cardiology EKG: report reviewed Chest x-ray: pending Assessment and Plan Assessment Suicidal ideation Chest pain Syncope Clot in aorta Hypertension History of DVT, PE Bipolar Schizophrenia Seizure Graves' disease Plan Admit to medicine Check cardiac enzymes, echo, consult cardiology Given dose of warfarin, minor PT/INR Place on 1013, consult psych Continue appropriate outpatient medications DVT prophylaxis
[2017-08-22 22:35] LABS: Bilirubin,Urine NEG (Negative); Blood,Urine SM (Negative); Color,Urine Yellow (Yellow); Mucus,Urine FEW /HPF; Protein,Urine <15 mg/dL mg/dL (Negative)
[2017-08-22 22:37] LABS: HCG Qualitative,Urine Negative (Negative)
[2017-08-22 22:42] LABS: Amphetamine Screen,Urine PRESUMPTIVE NEGATIVE; Benzodiazepines Screen,Urine PRESUMPTIVE NEGATIVE; Cannabinoid Screen,Urine PRESUMPTIVE NEGATIVE; Cocaine Screen,Urine PRESUMPTIVE NEGATIVE; Methadone Screen,Urine PRESUMPTIVE NEGATIVE; Opiate Screen,Urine PRESUMPTIVE NEGATIVE
[2017-08-22] MEDS: MORPHINE IV PRN (22:47)
[2017-08-22] MEDS ORDERED: COUMADIN PO ONE (23:00)
--- NOTE | 2017-08-22 23:12 | XRay Report ---
FINAL REPORT PROCEDURE: XR CHEST 1V AP TECHNIQUE: Chest radiograph anteroposterior view. CPT 60413 HISTORY: CP COMPARISON: 07/09/2017 FINDINGS: Heart: Normal. Mediastinum/Vessels: Normal. Lungs/Pleural space: 1.6 centimeter irregular density is noted in the left lower lung which is new since the prior study. Right lung and bilateral pleural spaces are clear.. Bony thorax: No acute osseous abnormality. Life support devices: None. IMPRESSION: An irregular 1.6 centimeter density in the left lower lung is new since the prior study and most likely represents an area of early consolidation. A two view chest study is recommended for further evaluation..
[2017-08-22 23:36] LABS: Creatine Kinase MB < 1.0 ng/mL (0.0-4.0)
[2017-08-23] MEDS: INDERAL LA PO SCH ×3 (00:22→21:11)
[2017-08-23] MEDS: MORPHINE IV PRN ×5 (03:33→21:14)
[2017-08-23] MEDS: TAPAZOLE PO SCH ×3 (05:41→21:10)
--- NOTE | 2017-08-23 08:38 | Consultation ---
History of Present Illness Consult date: 08/23/17 Consult reason: chest pain, syncope History of present illness: 36-year-old woman with history of hypertension, anxiety, PE, DVT, seizure, hyperthyroidism, bipolar, schizophrenia comes emergency room with complaints of chest pain. States she was diagnosed with a clot in her aorta one week ago at an outside facility. Pain is in the left and center of chest which he describes as sharp pain, burning sensation, intermittent, unable to say how long it lasts,intensity 6/10, no radiation, cannot identify exacerbating over the counter. Patient states she had 2 syncopal episode for a few seconds she was walking, once to the kitchen shortly after standing up from a seated position. The second episode occurred under similar circumstances. The syncopal episodes were accompanied by burning chest pain and palpitations, both of which she has intermittently unassociated with loss of consciousness. Admits to nausea vomiting, shortness of breath, no diaphoresis or palpitation. Also complaining of suicidal thoughts over the last 2 weeks, she sees ghostly figures that tells her to harm herself. Past History Past Medical History: DVT, hyperthyroidism, seizures, other (pulm emb) Medications and Allergies Allergies Allergy/AdvReac Type Severity Reaction Status Date / Time garlic Allergy Unknown Verified 06/23/17 16:49 ibuprofen [From Motrin] Allergy Unknown Verified 06/23/17 16:49 peanut oil Allergy Unknown Verified 06/23/17 16:49 Penicillins Allergy Unknown Verified 06/23/17 16:49 Home Medications Medication Instructions Recorded Confirmed Last Taken Type Quetiapine Fumarate [SEROquel XR] 300 mg PO QHS #20 tab.er.24h 11/07/1605/23/17 Rx ALPRAZolam [Xanax TAB] 0.25 mg PO BID PRN #60 tablet 05/26/17 Unknown Rx Apixaban [Eliquis] 5 mg PO BID #60 tablet 05/26/17 Unknown Rx Methimazole [Tapazole] 10 mg PO Q8HR #30 tablet 05/26/17 Unknown Rx Pantoprazole [Protonix TAB] 40 mg PO BID #30 tablet 05/26/17 Unknown Rx Pregabalin [Lyrica] 100 mg PO QAM #30 capsule 05/26/17 Unknown Rx Propranolol LA [Inderal LA] 60 mg PO Q12H #60 capsule 05/26/17 Unknown Rx Acetaminophen/Codeine [Tylenol 1 tab PO Q6H PRN #10 tab 05/31/17 Unknown Rx /Codeine # 3 tab] traMADol [Ultram] 50 mg PO Q6HR PRN #14 tablet 07/09/17 Unknown Rx Acetaminophen/Codeine [Tylenol 1 tab PO Q6H PRN #20 tab 08/19/17 Unknown Rx /Codeine # 3 tab] Active Meds: Active Medications Acetaminophen (Tylenol) 650 mg PO Q4H PRN PRN Reason: Pain MILD(1-3)/Fever >100.5/OSEGUERA Alprazolam (Xanax) 0.25 mg PO BID PRN PRN Reason: Anxiety Methimazole (Tapazole) 10 mg PO Q8HR [facility] Last Admin: 08/23/17 05:41 Dose: 10 mg Morphine Sulfate (Morphine) 2 mg IV Q4H PRN PRN Reason: Pain, Moderate (4-6) Last Admin: 08/23/17 07:56 Dose: 2 mg Ondansetron HCl (Zofran) 4 mg IV Q8H PRN PRN Reason: Nausea And Vomiting Last Admin: 08/22/17 22:48 Dose: 4 mg Pantoprazole Sodium (Protonix) 40 mg PO BID [facility] Pregabalin (Lyrica) 100 mg PO QAM [facility] Propranolol HCl (Inderal La) 60 mg PO Q12HR [facility] Last Admin: 08/23/17 00:22 Dose: 60 mg Quetiapine Fumarate (Seroquel) 100 mg PO TID [facility] Last Admin: 08/23/17 07:55 Dose: 100 mg Sodium Chloride (Sodium Chloride Flush Syringe 10 Ml) 10 ml IV BID [facility] Sodium Chloride (Sodium Chloride Flush Syringe 10 Ml) 10 ml IV PRN PRN PRN Reason: LINE FLUSH Warfarin Sodium (Coumadin Pharmacy To Dose) 1 each PO PKCONSULT [facility] Last Admin: 08/22/17 23:09 Dose: 1 each Review of Systems Constitutional: no weight loss, no fever, no sweats Eyes: bilateral: blurred vision (without) Ears, nose, mouth and throat: no epistaxis Cardiovascular: chest pain, palpitations, syncope, no orthopnea Respiratory: no hemoptysis Gastrointestinal: nausea, no abdominal pain Rectal: no bleeding Musculoskeletal: no hot joints Integumentary: no rash Neurological: convulsions Psychiatric: suicidal ideation Endocrine: no excessive thirst Hematologic/Lymphatic: no easy bruising, no easy bleeding Allergic/Immunologic: no urticaria Physical Examination Vital Signs Temp Pulse BP Pulse Ox 97.9 F 115 H 128/67 98 08/22/17 18:26 08/22/17 18:26 08/22/17 18:26 08/22/17 18:26 General appearance: no acute distress HEENT: Positive: PERRL, EOMI Neck: Positive: neck supple. Negative: JVD/HJR, Adenopathy, Bruit Cardiac: Positive: Reg Rate and Rhythm. Negative: S3, S4, Audible Murmur Lungs: Positive: clear to auscultation Neuro: Positive: Grossly Intact Abdomen: Positive: Soft. Negative: Tender Skin: Positive: Clear Musculoskeletal: Normal Range of Motion Extremities: Present: Other (peripheral pulses intact and sym). Absent: edema Results 08/22/17 19:44 08/22/17 19:44 Cardiac Enzymes 08/22/17 Range/Units 22:53 CK-MB (CK-2) < 1.0 (0.0-4.0) ng/mL Coagulation 08/22/17 Range/Units 19:44 PT 22.0 H (12.2-14.9) Sec. INR 1.80 H (0.87-1.13) APTT 30.6 (24.2-36.6) Sec. CBC 08/22/17 Range/Units 19:44 WBC 9.3 (4.5-11.0) K/mm3 RBC 4.66 (3.65-5.03) M/mm3 Hgb 10.7 (10.1-14.3) gm/dl Hct 34.1 (30.3-42.9) % Plt Count 404 (140-440) K/mm3 Lymph # 2.4 (1.2-5.4) K/mm3 [place] # 0.8 (0.0-0.8) K/mm3 Eos # 0.1 (0.0-0.4) K/mm3 Baso # 0.1 (0.0-0.1) K/mm3 Comprehensive Metabolic Panel 08/22/17 Range/Units 19:44 Sodium 137 (137-145) mmol/L Potassium 4.2 (3.6-5.0) mmol/L Chloride 99.0 (98-107) mmol/L Carbon Dioxide 26 (22-30) mmol/L BUN 17 (7-17) mg/dL Creatinine 0.7 (0.7-1.2) mg/dL Glucose 72 (65-100) mg/dL Calcium 9.2 (8.4-10.2) mg/dL EKG interpretations - Telemetry EKG Rhythm: Sinus Rhythm Repolarization changes or abnormalities: early repolarization (normal variant) Assessment and Plan syncopal spells appear to be orthostatic in origin. chest pain is atypical for myocardial ischemia. ecg shows no acute changes and cardiac enz are neg continue ac for hx of dvt/pulm emb attempt to obtain outside records re "clot in aorta". consider cta aortogram consider psych consult will follow
[2017-08-23 08:58] LABS: Basophils % (Auto) 0.5 % (0.0-1.8); Eosinophils # (Auto) 0.1 K/mm3 (0.0-0.4); Eosinophils % (Auto) 2.2 % (0.0-4.3); Hematocrit 33.3 % (30.3-42.9); Hemoglobin 10.4 gm/dl (10.1-14.3); Lymphocytes # (Auto) 2.7 K/mm3 (1.2-5.4); Lymphocytes % (Auto) 42.4 % (13.4-35.0); Mean Corpuscular HGB Conc 31 % (30-34); Mean Corpuscular Volume 72 fl (79-97); Monocytes # (Auto) 0.7 K/mm3 (0.0-0.8); Monocytes % (Auto) 11.1 % (0.0-7.3); Platelet Count 406 K/mm3 (140-440); Red Blood Count 4.64 M/mm3 (3.65-5.03); Red Cell Distribution Width 17.6 % (13.2-15.2)
[2017-08-23 09:08] LABS: Mean Corpuscular Hemoglobin 23 pg (28-32)
[2017-08-23] MEDS: LYRICA PO SCH (09:10)
[2017-08-23] MEDS: SODIUM CHLORIDE FLUSH SYRINGE 10 ML IV SCH ×2 (09:10→21:11)
[2017-08-23] MEDS: PROTONIX PO SCH ×2 (09:10→21:11)
[2017-08-23 09:18] LABS: BUN/Creatinine Ratio 24; Blood Urea Nitrogen 12 mg/dL (7-17); Calcium 8.6 mg/dL (8.4-10.2); Hemolysis Index 6
[2017-08-23 09:23] LABS: Creatine Kinase MB < 1.0 ng/mL (0.0-4.0)
--- NOTE | 2017-08-23 18:48 | Progress Note ---
Assessment and Plan Assessment and plan: Patient is a a 36-year-old woman with history of hypertension, anxiety, PE, DVT , seizure, hyperthyroidism, bipolar, schizophrenia, hematemesis refusing prior EGD (see my discharge summary 07/21/16) and multiple ED visits, averaging 2-3 ED visits per month since 2017 pw right sided CP per EMS documentation, reporting syncopal episode and hallucinations with SI and placed on 1013 in ED. Patient had multiple CTA chest, seemingly every month and no PE has been found. * pCXR report irregular 1.6 cm density in the left lower lung is new since prior study and most likely represents an area of early consolidation. * 08/19/17 CTA chest IMPRESSION: Small filling defect within mid descending thoracic aorta of this was present previously a portion of this appears intraluminal on the current study most likely reflecting a small mural thrombus or soft plaque. No evidence for dissection. No CT evidence of acute pulmonary embolus -Syncope, autonomic dysfunction: IVF and supportive care -Chest pains, atypical, costochondritis most likely: supportive care -Suicidal ideation, Schizophrenia: Consult psych, continue 1013 -No active PE, check venous leg doppler, -Chronic mural aortic thrombus: Cardiology to evaluate if venous leg doppler negative for dvt, pt will be medically cleared for psych inpt placement History Interval history: Patient was seen and examined. Follow-up on current diagnosis. Overnight uneventful. Patient denies any chest pain, shortness breath, nausea/vomiting or severe headaches. Imaging, nursing note, chart, labs and old chart reviewed. Discussed with patient. Hospitalist Physical - Physical exam Narrative exam: GEN: WDWN, NAD, Awake, Alert, Orientated HEENT: NCAT, EOMI, PERRL, OP Clear NECK: supple, no adenopathy, no thyromegaly, no JVD CVS/HEART: RRR, normal S1S2, pulses present bilaterally CHEST/LUNGS: CTA B, Symmetrical chest expansion, good air entry bilaterally GI/Abdomen: soft, NTND, good bowel sounds, no guarding or rebound /Bladder: no suprapubic tenderness, no CVA or paraspinal tenderness EXT/Skin: no c/c/e, no obvious rash MSK: FROM x 4 Neuro: CN 2-12 grossly intact, no new focal deficits Psych: calm - Constitutional Vitals: Temp Pulse Resp BP Pulse Ox 98.0 F 72 18 115/55 99 08/23/17 16:37 08/23/17 16:37 08/23/17 16:37 08/23/17 16:37 08/23/17 16:37 General appearance: Present: no acute distress Results - Labs CBC & Chem 7: 08/23/17 07:54 08/23/17 07:54 Labs: Laboratory Last Values WBC 6.3 K/mm3 (4.5-11.0) 08/23/17 07:54 RBC 4.64 M/mm3 (3.65-5.03) 08/23/17 07:54 Hgb 10.4 gm/dl (10.1-14.3) 08/23/17 07:54 Hct 33.3 % (30.3-42.9) 08/23/17 07:54 MCV 72 fl (79-97) L 08/23/17 07:54 MCH 23 pg (28-32) L 08/23/17 07:54 MCHC 31 % (30-34) 08/23/17 07:54 RDW 17.6 % (13.2-15.2) H 08/23/17 07:54 Plt Count 406 K/mm3 (140-440) 08/23/17 07:54 Lymph % (Auto) 42.4 % (13.4-35.0) H 08/23/17 07:54 [place] % (Auto) 11.1 % (0.0-7.3) H 08/23/17 07:54 Eos % (Auto) 2.2 % (0.0-4.3) 08/23/17 07:54 Baso % (Auto) 0.5 % (0.0-1.8) 08/23/17 07:54 Lymph # 2.7 K/mm3 (1.2-5.4) 08/23/17 07:54 [place] # 0.7 K/mm3 (0.0-0.8) 08/23/17 07:54 Eos # 0.1 K/mm3 (0.0-0.4) 08/23/17 07:54 Baso # 0.0 K/mm3 (0.0-0.1) 08/23/17 07:54 Seg Neutrophils % 43.8 % (40.0-70.0) 08/23/17 07:54 Seg Neutrophils # 2.8 K/mm3 (1.8-7.7) 08/23/17 07:54 PT 22.0 Sec. (12.2-14.9) H 08/22/17 19:44 INR 1.80 (0.87-1.13) H 08/22/17 19:44 APTT 30.6 Sec. (24.2-36.6) 08/22/17 19:44 Sodium 142 mmol/L (137-145) 08/23/17 07:54 Potassium 4.4 mmol/L (3.6-5.0) 08/23/17 07:54 Chloride 107.9 mmol/L (98-107) H 08/23/17 07:54 Carbon Dioxide 24 mmol/L (22-30) 08/23/17 07:54 Anion Gap 15 mmol/L 08/23/17 07:54 BUN 12 mg/dL (7-17) 08/23/17 07:54 Creatinine 0.5 mg/dL (0.7-1.2) L 08/23/17 07:54 Estimated GFR > 60 ml/min 08/23/17 07:54 BUN/Creatinine Ratio 24 % 08/23/17 07:54 Glucose 82 mg/dL (65-100) 08/23/17 07:54 Calcium 8.6 mg/dL (8.4-10.2) 08/23/17 07:54 Total Creatine Kinase 64 units/L (30-135) 08/23/17 08:25 CK-MB (CK-2) < 1.0 ng/mL (0.0-4.0) 08/23/17 08:25 CK-MB (CK-2) Rel Index 1.5 (0-4) 08/23/17 08:25 Troponin T < 0.010 ng/mL (0.00-0.029) 08/23/17 08:25 TSH < 0.005 mlU/mL (0.270-4.200) L 08/22/17 19:44 Urine Color Yellow (Yellow) 08/22/17 21:48 Urine Turbidity Clear (Clear) 08/22/17 21:48 Urine pH 6.0 (5.0-7.0) 08/22/17 21:48 Ur Specific [place] 1.019 (1.003-1.030) 08/22/17 21:48 Urine Protein <15 mg/dl mg/dL (Negative) 08/22/17 21:48 Urine Glucose (UA) Neg mg/dL (Negative) 08/22/17 21:48 Urine Ketones Neg mg/dL (Negative) 08/22/17 21:48 Urine Blood Sm (Negative) 08/22/17 21:48 Urine Nitrite Neg (Negative) 08/22/17 21:48 Urine Bilirubin Neg (Negative) 08/22/17 21:48 Urine Urobilinogen 2.0 mg/dL (<2.0) 08/22/17 21:48 Ur Leukocyte Esterase Neg (Negative) 08/22/17 21:48 Urine WBC (Auto) 1.0 /HPF (0.0-6.0) 08/22/17 21:48 Urine RBC (Auto) 12.0 /HPF (0.0-6.0) 08/22/17 21:48 Urine Mucus Few /HPF 08/22/17 21:48 Urine HCG, Qual Negative (Negative) 08/22/17 21:48 Urine Opiates Screen Presumptive negative 08/22/17 21:48 Urine Methadone Screen Presumptive negative 08/22/17 21:48 Ur Barbiturates Screen Presumptive negative 08/22/17 21:48 Ur Phencyclidine Scrn Presumptive negative 08/22/17 21:48 Ur Amphetamines Screen Presumptive negative 08/22/17 21:48 U Benzodiazepines Scrn Presumptive negative 08/22/17 21:48 Urine Cocaine Screen Presumptive negative 08/22/17 21:48 U Marijuana (THC) Screen Presumptive negative 08/22/17 21:48 Drugs of Abuse Note Disclamer 08/22/17 21:48
[2017-08-23] MEDS ORDERED: NON-FORMULARY (Quetiapine Fumarate [Seroquel Xr] 300 MG) PO SCH (22:00)
[2017-08-23] MEDS ORDERED: COUMADIN PO ONE (22:26)
[2017-08-24] MEDS: MORPHINE IV PRN ×5 (01:51→21:13)
[2017-08-24] MEDS: TAPAZOLE PO SCH ×3 (06:44→21:09)
--- NOTE | 2017-08-24 12:15 | Progress Note ---
Assessment and Plan Chest pain is atypical for myocardial ischemia. ECG shows no acute changes and [place] are negative for AMI. Lexiscan MPI stress test done 05/2017 was negative for ischemia, EF 69%. No plans for repeat ischemic evaluation at this time. Pt was diagnosed with small mural thrombus of mid descending thoracic aorta via chest CTA done 08/19/2017 and she reports that she was taking Eliquis at home for treatement of this. She has now been initiated on coumadin per primary team. Obtain orthostatics. BLE venous duplex preliminarily negative for DVT/SVT. Await echo. Await psych evaluation. The patient has been seen in conjunction with Dr. Cespedes who agrees with the assessment and plan of care. - Patient Problems (1) Chest pain Current Visit: Yes Status: Acute (2) Syncope Current Visit: Yes Status: Acute (3) Thrombosis of thoracic aorta Current Visit: Yes Status: Chronic (4) History of pulmonary embolism Current Visit: No Status: Suspected (5) History of DVT (deep vein thrombosis) Current Visit: No Status: Suspected (6) Hyperthyroidism Current Visit: Yes Status: Chronic (7) Schizophrenia Current Visit: Yes Status: Chronic (8) Suicidal ideations Current Visit: Yes Status: Acute Subjective Date of service: 08/24/17 Principal diagnosis: chest pain Interval history: pt resting comfortably in bed, still c/o intermittent midsternal chest pain. Objective Last Vital Signs Temp 98.0 F 08/24/17 08:22 Pulse 73 08/24/17 08:22 Resp 20 08/24/17 08:22 BP 110/61 08/24/17 08:22 Pulse Ox 99 08/24/17 08:22 - Physical Examination General: No Apparent Distress HEENT: Positive: PERRL, EOMI Neck: Positive: neck supple. Negative: JVD/HJR, Adenopathy, Bruit Cardiac: Positive: Reg Rate and Rhythm, S1/S2 Lungs: Positive: clear to auscultation Neuro: Positive: Grossly Intact Abdomen: Positive: Soft. Negative: Tender Skin: Positive: Clear Musculoskeletal: Normal Range of Motion Extremities: Present: Other (peripheral pulses intact and sym). Absent: edema - Imaging and Cardiology EKG: report reviewed Repolarization changes or abnormalities: early repolarization (normal variant)
[2017-08-24] MEDS: INDERAL LA PO SCH ×2 (12:40→21:09)
[2017-08-24] MEDS: PROTONIX PO SCH ×2 (12:41→21:09)
[2017-08-24] MEDS: LYRICA PO SCH (12:41)
[2017-08-24] MEDS: SODIUM CHLORIDE FLUSH SYRINGE 10 ML IV SCH ×2 (12:42→21:10)
--- NOTE | 2017-08-24 14:20 | Progress Note ---
Assessment and Plan Assessment and plan: Patient is a a 36-year-old woman with history of hypertension, anxiety, PE, DVT , seizure, hyperthyroidism, bipolar, schizophrenia, hematemesis refusing prior EGD (see my discharge summary 07/21/16) and multiple ED visits, averaging 2-3 ED visits per month since 2017 pw right sided CP per EMS documentation, reporting syncopal episode and hallucinations with SI and placed on 1013 in ED. Patient had multiple CTA chest, seemingly every month and no PE has been found. * pCXR report irregular 1.6 cm density in the left lower lung is new since prior study and most likely represents an area of early consolidation. * 08/19/17 CTA chest IMPRESSION: Small filling defect within mid descending thoracic aorta of this was present previously a portion of this appears intraluminal on the current study most likely reflecting a small mural thrombus or soft plaque. No evidence for dissection. No CT evidence of acute pulmonary embolus -Syncope, autonomic dysfunction: IVF and supportive care -Chest pains, atypical, costochondritis most likely: supportive care -Suicidal ideation, Schizophrenia: Consult psych, continue 1013 -No active PE/DVT -Chronic mural aortic thrombus: Cardiology to evaluate, on Warfarin 2D ECHO reported Trace TR, est EF 45%, normal RVSF, trace MR venous BLE doppler negative for DVT medically stable for psych inpt placement History Interval history: Patient was seen and examined. Follow-up on current diagnosis. Overnight uneventful. Patient denies any chest pain, shortness breath, nausea/vomiting or severe headaches. Imaging, nursing note, chart, labs and old chart reviewed. Discussed with patient. Hospitalist Physical - Physical exam Narrative exam: GEN: WDWN, NAD, Awake, Alert, Orientated HEENT: NCAT, EOMI, PERRL, OP Clear NECK: supple, no adenopathy, no thyromegaly, no JVD CVS/HEART: RRR, normal S1S2, pulses present bilaterally CHEST/LUNGS: CTA B, Symmetrical chest expansion, good air entry bilaterally GI/Abdomen: soft, NTND, good bowel sounds, no guarding or rebound /Bladder: no suprapubic tenderness, no CVA or paraspinal tenderness EXT/Skin: no c/c/e, no obvious rash MSK: FROM x 4 Neuro: CN 2-12 grossly intact, no new focal deficits Psych: calm - Constitutional Vitals: Temp Pulse Resp BP Pulse Ox 98.0 F 73 20 110/61 99 08/24/17 08:22 08/24/17 08:22 08/24/17 08:22 08/24/17 08:22 08/24/17 08:22 General appearance: Present: no acute distress Results - Labs CBC & Chem 7: 08/23/17 07:54 08/23/17 07:54 Labs: Laboratory Last Values WBC 6.3 K/mm3 (4.5-11.0) 08/23/17 07:54 RBC 4.64 M/mm3 (3.65-5.03) 08/23/17 07:54 Hgb 10.4 gm/dl (10.1-14.3) 08/23/17 07:54 Hct 33.3 % (30.3-42.9) 08/23/17 07:54 MCV 72 fl (79-97) L 08/23/17 07:54 MCH 23 pg (28-32) L 08/23/17 07:54 MCHC 31 % (30-34) 08/23/17 07:54 RDW 17.6 % (13.2-15.2) H 08/23/17 07:54 Plt Count 406 K/mm3 (140-440) 08/23/17 07:54 Lymph % (Auto) 42.4 % (13.4-35.0) H 08/23/17 07:54 [place] % (Auto) 11.1 % (0.0-7.3) H 08/23/17 07:54 Eos % (Auto) 2.2 % (0.0-4.3) 08/23/17 07:54 Baso % (Auto) 0.5 % (0.0-1.8) 08/23/17 07:54 Lymph # 2.7 K/mm3 (1.2-5.4) 08/23/17 07:54 [place] # 0.7 K/mm3 (0.0-0.8) 08/23/17 07:54 Eos # 0.1 K/mm3 (0.0-0.4) 08/23/17 07:54 Baso # 0.0 K/mm3 (0.0-0.1) 08/23/17 07:54 Seg Neutrophils % 43.8 % (40.0-70.0) 08/23/17 07:54 Seg Neutrophils # 2.8 K/mm3 (1.8-7.7) 08/23/17 07:54 PT 22.0 Sec. (12.2-14.9) H 08/22/17 19:44 INR 1.80 (0.87-1.13) H 08/22/17 19:44 APTT 30.6 Sec. (24.2-36.6) 08/22/17 19:44 Sodium 142 mmol/L (137-145) 08/23/17 07:54 Potassium 4.4 mmol/L (3.6-5.0) 08/23/17 07:54 Chloride 107.9 mmol/L (98-107) H 08/23/17 07:54 Carbon Dioxide 24 mmol/L (22-30) 08/23/17 07:54 Anion Gap 15 mmol/L 08/23/17 07:54 BUN 12 mg/dL (7-17) 08/23/17 07:54 Creatinine 0.5 mg/dL (0.7-1.2) L 08/23/17 07:54 Estimated GFR > 60 ml/min 08/23/17 07:54 BUN/Creatinine Ratio 24 % 08/23/17 07:54 Glucose 82 mg/dL (65-100) 08/23/17 07:54 Calcium 8.6 mg/dL (8.4-10.2) 08/23/17 07:54 Total Creatine Kinase 64 units/L (30-135) 08/23/17 08:25 CK-MB (CK-2) < 1.0 ng/mL (0.0-4.0) 08/23/17 08:25 CK-MB (CK-2) Rel Index 1.5 (0-4) 08/23/17 08:25 Troponin T < 0.010 ng/mL (0.00-0.029) 08/23/17 08:25 TSH < 0.005 mlU/mL (0.270-4.200) L 08/22/17 19:44 Urine Color Yellow (Yellow) 08/22/17 21:48 Urine Turbidity Clear (Clear) 08/22/17 21:48 Urine pH 6.0 (5.0-7.0) 08/22/17 21:48 Ur Specific [place] 1.019 (1.003-1.030) 08/22/17 21:48 Urine Protein <15 mg/dl mg/dL (Negative) 08/22/17 21:48 Urine Glucose (UA) Neg mg/dL (Negative) 08/22/17 21:48 Urine Ketones Neg mg/dL (Negative) 08/22/17 21:48 Urine Blood Sm (Negative) 08/22/17 21:48 Urine Nitrite Neg (Negative) 08/22/17 21:48 Urine Bilirubin Neg (Negative) 08/22/17 21:48 Urine Urobilinogen 2.0 mg/dL (<2.0) 08/22/17 21:48 Ur Leukocyte Esterase Neg (Negative) 08/22/17 21:48 Urine WBC (Auto) 1.0 /HPF (0.0-6.0) 08/22/17 21:48 Urine RBC (Auto) 12.0 /HPF (0.0-6.0) 08/22/17 21:48 Urine Mucus Few /HPF 08/22/17 21:48 Urine HCG, Qual Negative (Negative) 08/22/17 21:48 Urine Opiates Screen Presumptive negative 08/22/17 21:48 Urine Methadone Screen Presumptive negative 08/22/17 21:48 Ur Barbiturates Screen Presumptive negative 08/22/17 21:48 Ur Phencyclidine Scrn Presumptive negative 08/22/17 21:48 Ur Amphetamines Screen Presumptive negative 08/22/17 21:48 U Benzodiazepines Scrn Presumptive negative 08/22/17 21:48 Urine Cocaine Screen Presumptive negative 08/22/17 21:48 U Marijuana (THC) Screen Presumptive negative 08/22/17 21:48 Drugs of Abuse Note Disclamer 08/22/17 21:48
--- NOTE | 2017-08-24 14:27 | Discharge Summary ---
Providers - Providers Date of Admission: 08/22/17 22:29 Date of discharge: 08/24/17 Attending physician: NURYS SANTA 08/22/17 22:29 Consult to Physician [CONS] Routine Comment: Consulting Provider: LEONIDES ADAN Physician Instructions: Reason For Exam: cp/syncope/ 08/22/17 22:57 psychiatry consult [Consult to Mental Health] [CONS] Routine Reason For Exam: SI Place consult to:: PSYCH Notified:: Sameer KIRK Comment:: patient seen by MH check weigher while in ER Primary care physician: MEDIA REPORTER Hospitalization Condition: Stable Hospital course: Patient is a a 36-year-old woman with history of hypertension, anxiety, PE, DVT , seizure, hyperthyroidism, bipolar, schizophrenia, hematemesis refusing prior EGD (see my discharge summary 07/21/16) and multiple ED visits, averaging 2-3 ED visits per month since 2017 pw right sided CP per EMS documentation, reporting syncopal episode and hallucinations with SI and placed on 1013 in ED. Patient had multiple CTA chest, seemingly every month and no PE has been found. * pCXR report irregular 1.6 cm density in the left lower lung is new since prior study and most likely represents an area of early consolidation. * 08/19/17 CTA chest IMPRESSION: Small filling defect within mid descending thoracic aorta of this was present previously a portion of this appears intraluminal on the current study most likely reflecting a small mural thrombus or soft plaque. No evidence for dissection. No CT evidence of acute pulmonary embolus -Syncope, autonomic dysfunction: IVF and supportive care -Chest pains, atypical, costochondritis most likely: supportive care -Suicidal ideation, Schizophrenia: Consult psych, continue 1013 -No active PE/DVT -Chronic mural aortic thrombus: Cardiology to evaluate, on Warfarin 2D ECHO reported Trace TR, est EF 45%, normal RVSF, trace MR venous BLE doppler negative for DVT medically stable for psych inpt placement Disposition: [id number]/TX-[id number] PSY HOSP/PSY UNIT Time spent for discharge: 34 minutes Core Measure Documentation - Palliative Care Palliative Care/ Comfort Measures: Not Applicable - Core Measures Any of the following diagnoses?: none - VTE Discharge Requirements Deep Vein Thrombosis/Pulmonary Embolism Present on Admission: No Has pt received <5 days of overlap therapy or INR<2.0: No Anticoagulant overlap therapy prescribed at discharge: No Contraindication No Overlap Therapy order at DC: Not Indicated Exam - Physical Exam Narrative exam: GEN: WDWN, NAD, Awake, Alert, Orientated HEENT: NCAT, EOMI, PERRL, OP Clear NECK: supple, no adenopathy, no thyromegaly, no JVD CVS/HEART: RRR, normal S1S2, pulses present bilaterally CHEST/LUNGS: CTA B, Symmetrical chest expansion, good air entry bilaterally GI/Abdomen: soft, NTND, good bowel sounds, no guarding or rebound /Bladder: no suprapubic tenderness, no CVA or paraspinal tenderness EXT/Skin: no c/c/e, no obvious rash MSK: FROM x 4 Neuro: CN 2-12 grossly intact, no new focal deficits Psych: calm - Constitutional Vitals: Temp Pulse Resp BP Pulse Ox 98.0 F 73 20 110/61 99 08/24/17 08:22 08/24/17 08:22 08/24/17 08:22 08/24/17 08:22 08/24/17 08:22 Plan Activity: fall precautions, other (no strenous activity) Diet: low salt Follow up with: PRIMARY CARE, [Primary Care Provider] - 3-5 Days Forms: Warfarin Discharge Instruction
[2017-08-24] MEDS: COUMADIN PO SCH (16:51)
[2017-08-25] MEDS: MORPHINE IV PRN ×5 (01:25→21:13)
[2017-08-25] MEDS: TAPAZOLE PO SCH ×3 (05:45→21:11)
[2017-08-25 09:48] LABS: INR 1.18 (0.87-1.13)
[2017-08-25] MEDS: INDERAL LA PO SCH ×2 (10:00→21:12)
[2017-08-25] MEDS: LYRICA PO SCH (10:00)
[2017-08-25] MEDS: PROTONIX PO SCH ×2 (10:00→21:12)
--- NOTE | 2017-08-25 10:05 | Progress Note ---
Assessment and Plan Continue anticoagulation per primary team. Coumadin is preferred anticoagulant, however, pt has a history of medical noncompliance and thus she has been placed on Eliquis. Orthostatics unremarkable. Echo reviewed - EF 45% Currently stable cardiac status. Pt may discharge home from cardiology standpoint. Recommend follow up in our office with María Mota NP, within 2 weeks of hospital discharge. The patient has been seen in conjunction with Dr. Cespedes who agrees with the assessment and plan of care. - Patient Problems (1) Chest pain Current Visit: Yes Status: Acute (2) Syncope Current Visit: Yes Status: Acute (3) Thrombosis of thoracic aorta Current Visit: Yes Status: Chronic (4) History of pulmonary embolism Current Visit: No Status: Suspected (5) History of DVT (deep vein thrombosis) Current Visit: No Status: Suspected (6) Hyperthyroidism Current Visit: Yes Status: Chronic (7) Mild left ventricular systolic dysfunction Current Visit: Yes Status: Chronic (8) Schizophrenia Current Visit: Yes Status: Chronic (9) Suicidal ideations Current Visit: Yes Status: Acute Subjective Date of service: 08/25/17 Principal diagnosis: chest pain Interval history: pt resting comfortably in bed, no current cardiac complaints. Objective Last Vital Signs Temp 98.1 F 08/25/17 07:50 Pulse 78 08/25/17 07:50 Resp 20 08/25/17 07:50 BP 103/57 08/25/17 07:50 Pulse Ox 97 08/25/17 07:50 - Physical Examination General: No Apparent Distress HEENT: Positive: PERRL, EOMI Neck: Positive: neck supple. Negative: JVD/HJR, Adenopathy, Bruit Cardiac: Positive: Reg Rate and Rhythm, S1/S2 Lungs: Positive: clear to auscultation Neuro: Positive: Grossly Intact Abdomen: Positive: Soft. Negative: Tender Skin: Positive: Clear Musculoskeletal: Normal Range of Motion Extremities: Present: Other (peripheral pulses intact and sym). Absent: edema - Labs and Meds Coagulation 08/25/17 Range/Units 08:53 PT 15.7 H (12.2-14.9) Sec. INR 1.18 H (0.87-1.13) - Imaging and Cardiology EKG: report reviewed Repolarization changes or abnormalities: early repolarization (normal variant)
--- NOTE | 2017-08-25 11:58 | Vascular Lab Report ---
LOWER EXTREMITY VENOUS DUPLEX: REASON FOR EXAM: Deep venous thrombosis. COMMENTS ON THE RIGHT: All veins visualized are freely compressible without evidence of internal echogenicity. Flow is spontaneous and phasic throughout. COMMENTS ON THE LEFT: All veins visualized are freely compressible without evidence of internal echogenicity. Flow is spontaneous and phasic throughout. IMPRESSION: No evidence of acute or chronic deep venous thrombosis in either lower extremity.
--- NOTE | 2017-08-25 12:27 | Progress Note ---
Assessment and Plan Assessment and plan: Patient is a a 36-year-old woman with history of hypertension, anxiety, PE, DVT , seizure, hyperthyroidism, bipolar, schizophrenia, hematemesis refusing prior EGD (see my discharge summary 07/21/16) and multiple ED visits, averaging 2-3 ED visits per month since 2017 pw right sided CP per EMS documentation, reporting syncopal episode and hallucinations with SI and placed on 1013 in ED. Patient had multiple CTA chest, seemingly every month and no PE has been found. * pCXR report irregular 1.6 cm density in the left lower lung is new since prior study and most likely represents an area of early consolidation. * 08/19/17 CTA chest IMPRESSION: Small filling defect within mid descending thoracic aorta of this was present previously a portion of this appears intraluminal on the current study most likely reflecting a small mural thrombus or soft plaque. No evidence for dissection. No CT evidence of acute pulmonary embolus -Syncope, autonomic dysfunction: IVF and supportive care -Chest pains, atypical, costochondritis most likely: supportive care -Suicidal ideation, Schizophrenia: Consult psych, continue 1013 -No active PE/DVT -Chronic mural aortic thrombus: Cardiology to evaluated, keep on Warfarin due to low cost, no health insurance for Eliquis * 2D ECHO reported Trace TR, est EF 45%, normal RVSF, trace MR * venous BLE doppler negative for DVT medically stable for psych inpt placement History Interval history: Patient was seen and examined. Follow-up on current diagnosis. Overnight uneventful. Patient denies any chest pain, shortness breath, nausea/vomiting or severe headaches. Imaging, nursing note, chart, labs and old chart reviewed. Discussed with patient. Hospitalist Physical - Physical exam Narrative exam: GEN: WDWN, NAD, Awake, Alert, Orientated HEENT: NCAT, EOMI, PERRL, OP Clear NECK: supple, no adenopathy, no thyromegaly, no JVD CVS/HEART: RRR, normal S1S2, pulses present bilaterally CHEST/LUNGS: CTA B, Symmetrical chest expansion, good air entry bilaterally GI/Abdomen: soft, NTND, good bowel sounds, no guarding or rebound /Bladder: no suprapubic tenderness, no CVA or paraspinal tenderness EXT/Skin: no c/c/e, no obvious rash MSK: FROM x 4 Neuro: CN 2-12 grossly intact, no new focal deficits Psych: calm - Constitutional Vitals: Temp Pulse Resp BP Pulse Ox 97.9 F 73 20 90/63 99 08/25/17 11:46 08/25/17 11:46 08/25/17 11:46 08/25/17 11:46 08/25/17 11:46 General appearance: Present: no acute distress Results - Labs CBC & Chem 7: 08/23/17 07:54 08/23/17 07:54 Labs: Laboratory Last Values WBC 6.3 K/mm3 (4.5-11.0) 08/23/17 07:54 RBC 4.64 M/mm3 (3.65-5.03) 08/23/17 07:54 Hgb 10.4 gm/dl (10.1-14.3) 08/23/17 07:54 Hct 33.3 % (30.3-42.9) 08/23/17 07:54 MCV 72 fl (79-97) L 08/23/17 07:54 MCH 23 pg (28-32) L 08/23/17 07:54 MCHC 31 % (30-34) 08/23/17 07:54 RDW 17.6 % (13.2-15.2) H 08/23/17 07:54 Plt Count 406 K/mm3 (140-440) 08/23/17 07:54 Lymph % (Auto) 42.4 % (13.4-35.0) H 08/23/17 07:54 [place] % (Auto) 11.1 % (0.0-7.3) H 08/23/17 07:54 Eos % (Auto) 2.2 % (0.0-4.3) 08/23/17 07:54 Baso % (Auto) 0.5 % (0.0-1.8) 08/23/17 07:54 Lymph # 2.7 K/mm3 (1.2-5.4) 08/23/17 07:54 [place] # 0.7 K/mm3 (0.0-0.8) 08/23/17 07:54 Eos # 0.1 K/mm3 (0.0-0.4) 08/23/17 07:54 Baso # 0.0 K/mm3 (0.0-0.1) 08/23/17 07:54 Seg Neutrophils % 43.8 % (40.0-70.0) 08/23/17 07:54 Seg Neutrophils # 2.8 K/mm3 (1.8-7.7) 08/23/17 07:54 PT 15.7 Sec. (12.2-14.9) H 08/25/17 08:53 INR 1.18 (0.87-1.13) H 08/25/17 08:53 APTT 30.6 Sec. (24.2-36.6) 08/22/17 19:44 Sodium 142 mmol/L (137-145) 08/23/17 07:54 Potassium 4.4 mmol/L (3.6-5.0) 08/23/17 07:54 Chloride 107.9 mmol/L (98-107) H 08/23/17 07:54 Carbon Dioxide 24 mmol/L (22-30) 08/23/17 07:54 Anion Gap 15 mmol/L 08/23/17 07:54 BUN 12 mg/dL (7-17) 08/23/17 07:54 Creatinine 0.5 mg/dL (0.7-1.2) L 08/23/17 07:54 Estimated GFR > 60 ml/min 08/23/17 07:54 BUN/Creatinine Ratio 24 % 08/23/17 07:54 Glucose 82 mg/dL (65-100) 08/23/17 07:54 POC Glucose 126 (70-105) H 08/24/17 17:21 Calcium 8.6 mg/dL (8.4-10.2) 08/23/17 07:54 Total Creatine Kinase 64 units/L (30-135) 08/23/17 08:25 CK-MB (CK-2) < 1.0 ng/mL (0.0-4.0) 08/23/17 08:25 CK-MB (CK-2) Rel Index 1.5 (0-4) 08/23/17 08:25 Troponin T < 0.010 ng/mL (0.00-0.029) 08/23/17 08:25 TSH < 0.005 mlU/mL (0.270-4.200) L 08/22/17 19:44 Urine Color Yellow (Yellow) 08/22/17 21:48 Urine Turbidity Clear (Clear) 08/22/17 21:48 Urine pH 6.0 (5.0-7.0) 08/22/17 21:48 Ur Specific [place] 1.019 (1.003-1.030) 08/22/17 21:48 Urine Protein <15 mg/dl mg/dL (Negative) 08/22/17 21:48 Urine Glucose (UA) Neg mg/dL (Negative) 08/22/17 21:48 Urine Ketones Neg mg/dL (Negative) 08/22/17 21:48 Urine Blood Sm (Negative) 08/22/17 21:48 Urine Nitrite Neg (Negative) 08/22/17 21:48 Urine Bilirubin Neg (Negative) 08/22/17 21:48 Urine Urobilinogen 2.0 mg/dL (<2.0) 08/22/17 21:48 Ur Leukocyte Esterase Neg (Negative) 08/22/17 21:48 Urine WBC (Auto) 1.0 /HPF (0.0-6.0) 08/22/17 21:48 Urine RBC (Auto) 12.0 /HPF (0.0-6.0) 08/22/17 21:48 Urine Mucus Few /HPF 08/22/17 21:48 Urine HCG, Qual Negative (Negative) 08/22/17 21:48 Urine Opiates Screen Presumptive negative 08/22/17 21:48 Urine Methadone Screen Presumptive negative 08/22/17 21:48 Ur Barbiturates Screen Presumptive negative 08/22/17 21:48 Ur Phencyclidine Scrn Presumptive negative 08/22/17 21:48 Ur Amphetamines Screen Presumptive negative 08/22/17 21:48 U Benzodiazepines Scrn Presumptive negative 08/22/17 21:48 Urine Cocaine Screen Presumptive negative 08/22/17 21:48 U Marijuana (THC) Screen Presumptive negative 08/22/17 21:48 Drugs of Abuse Note Disclamer 08/22/17 21:48
--- NOTE | 2017-08-25 12:47 | Consultation ---
History of Present Illness - Reason for Consult Consult date: 08/25/17 Reason for consult: Mental Health Evaluation Requesting physician: NURYS SANTA - Chief Complaint Chief complaint: "I hear voices" - History of Present Psychiatric Illness 36-year-old AA female presents to the emergency department with chest pain and AH's telling her to kill herself. This patient is known to me. The patient feels that she has a PE. Per the record, the patient has been worked up for a PE several times recently, and nothing has been found. Today the patient is calm and cooperative during the assessment. She stated being depressed and experiencing voices telling her to kill herself. She stated that her depression has "heightened" since being homeless and her concerns about having a "PE." She stated that the voices started several days ago. She stated a previous suicide attempt in the past. She stated that she takes Seroquel for Bipolar DO. She did acknowledge that her medical issues are overwhelming at this time. She does endorse SI's, but would not confirm or deny a suicide plan. She denies erratic sleep and a poor appetite. She denies recreational drug use and alcohol consumption (etoh). Medications and Allergies Allergies Allergy/AdvReac Type Severity Reaction Status Date / Time garlic Allergy Unknown Verified 06/23/17 16:49 ibuprofen [From Motrin] Allergy Unknown Verified 06/23/17 16:49 peanut oil Allergy Unknown Verified 06/23/17 16:49 Penicillins Allergy Unknown Verified 06/23/17 16:49 Home Medications Medication Instructions Recorded Confirmed Last Taken Type Quetiapine Fumarate [SEROquel XR] 300 mg PO QHS #20 tab.er.24h 11/07/1605/23/17 Rx ALPRAZolam [Xanax TAB] 0.25 mg PO BID PRN #60 tablet 05/26/17 08/24/17 Unknown Rx Pregabalin [Lyrica] 100 mg PO QAM #30 capsule 05/26/17 08/24/17 Unknown Rx Acetaminophen [Acetaminophen TAB] 650 mg PO Q4H PRN #30 tablet 08/24/17 Unknown Rx Methimazole [Tapazole] 10 mg PO Q8HR #90 tablet 08/24/17 Unknown Rx Pantoprazole [Protonix TAB] 40 mg PO BID #60 tablet 08/24/17 Unknown Rx Propranolol LA [Inderal LA] 60 mg PO Q12HR #60 capsule 08/24/17 Unknown Rx Warfarin [Coumadin] 5 mg PO DAILY@1700 #30 tablet 08/24/17 Unknown Rx Active Meds: Active Medications Acetaminophen (Tylenol) 650 mg PO Q4H PRN PRN Reason: Pain MILD(1-3)/Fever >100.5/OSEGUERA Alprazolam (Xanax) 0.25 mg PO BID PRN PRN Reason: Anxiety Methimazole (Tapazole) 10 mg PO Q8HR [facility] Last Admin: 08/25/17 05:45 Dose: 10 mg Morphine Sulfate (Morphine) 2 mg IV Q4H PRN PRN Reason: Pain, Moderate (4-6) Last Admin: 08/25/17 05:45 Dose: 2 mg Ondansetron HCl (Zofran) 4 mg IV Q8H PRN PRN Reason: Nausea And Vomiting Last Admin: 08/22/17 22:48 Dose: 4 mg Pantoprazole Sodium (Protonix) 40 mg PO BID [facility] Last Admin: 08/24/17 21:09 Dose: 40 mg Pregabalin (Lyrica) 100 mg PO QAM [facility] Last Admin: 08/24/17 12:41 Dose: 100 mg Propranolol HCl (Inderal La) 60 mg PO Q12HR [facility] Last Admin: 08/24/17 21:09 Dose: 60 mg Quetiapine Fumarate (Seroquel) 100 mg PO TID [facility] Last Admin: 08/24/17 21:09 Dose: 100 mg Sodium Chloride (Sodium Chloride Flush Syringe 10 Ml) 10 ml IV BID [facility] Last Admin: 08/24/17 21:10 Dose: 10 ml Sodium Chloride (Sodium Chloride Flush Syringe 10 Ml) 10 ml IV PRN PRN PRN Reason: LINE FLUSH Last Admin: 08/25/17 01:27 Dose: 10 ml Warfarin Sodium (Coumadin Pharmacy To Dose) 1 each PO PKCONSULT [facility] Last Admin: 08/22/17 23:09 Dose: 1 each Warfarin Sodium (Coumadin) 5 mg PO DAILY@1700 [facility] Last Admin: 08/24/17 16:51 Dose: 5 mg Past psychiatric history - Past Medical History Past Medical History: GERD, hypertension Past Surgical History: Other (Left Arm Surgery) - past Psychiatric treatment and history psychiatric treatment history: Several inpatient psy settings. Denies a fam psy hx. - Social History Social history: other (Homeless) Mental Status Exam - Vital signs Last Vital Signs Temp 97.9 F 08/25/17 11:46 Pulse 73 08/25/17 11:46 Resp 20 08/25/17 11:46 BP 90/63 08/25/17 11:46 Pulse Ox 99 08/25/17 11:46 - Exam Narrative exam: MSE: Appearance: calm, cooperative Behavior: regular eye contact Speech: regular rate and tone Mood: "depressed" Affect: dysphoric Thought Process: circumstantial Thought Content: denies HI's and VH's, paranoid, delusional Motor Activity: sitting up in bed Cognition: A/O x 3 Insight: poor Judgment: poor Results Result Diagrams: 08/23/17 07:54 08/23/17 07:54 Abnormal lab results 08/24/17 08/25/17 Range/Units 17:21 08:53 PT 15.7 H (12.2-14.9) Sec. INR 1.18 H (0.87-1.13) POC Glucose 126 H (70-105) All other labs normal. Assessment and Plan Assessment and plan: Impression: Unspecified Mood DO with psy features. Today the patient is calm and cooperative during the assessment. Per the medical staff, an active PE has been R/O. DDx: Bipolar DO, R/O MDD with psychosis Recommendation/Plan: Continue 1013 with placement to inpatient psy services. Modify Seroquel to 300 mg PO HS for mood/psychosis. Discussed possible metabolic side effects of Seroquel with patient.
[2017-08-25] MEDS: SODIUM CHLORIDE FLUSH SYRINGE 10 ML IV SCH ×2 (15:03→21:12)
[2017-08-25] MEDS: COUMADIN PO SCH (16:50)
[2017-08-25] MEDS: TYLENOL PO PRN (16:51)
[2017-08-26] MEDS: MORPHINE IV PRN ×5 (03:21→21:51)
[2017-08-26] MEDS: TAPAZOLE PO SCH ×3 (06:15→21:50)
[2017-08-26] MEDS: TYLENOL PO PRN ×2 (06:21→20:17)
[2017-08-26] MEDS: INDERAL LA PO SCH ×2 (09:09→22:38)
[2017-08-26] MEDS: PROTONIX PO SCH ×2 (09:10→21:51)
[2017-08-26] MEDS: LYRICA PO SCH (09:10)
[2017-08-26 10:23] LABS: INR 1.21 (0.87-1.13)
--- NOTE | 2017-08-26 14:09 | Progress Note ---
Assessment and Plan Assessment and plan: Patient is a a 36-year-old woman with history of hypertension, anxiety, PE, DVT , seizure, hyperthyroidism, bipolar, schizophrenia, hematemesis refusing prior EGD (see my discharge summary 07/21/16) and multiple ED visits, averaging 2-3 ED visits per month since 2017 pw right sided CP per EMS documentation, reporting syncopal episode and hallucinations with SI and placed on 1013 in ED. Patient had multiple CTA chest, seemingly every month and no PE has been found. * pCXR report irregular 1.6 cm density in the left lower lung is new since prior study and most likely represents an area of early consolidation. * 08/19/17 CTA chest IMPRESSION: Small filling defect within mid descending thoracic aorta of this was present previously a portion of this appears intraluminal on the current study most likely reflecting a small mural thrombus or soft plaque. No evidence for dissection. No CT evidence of acute pulmonary embolus -Syncope, autonomic dysfunction: IVF and supportive care -Chest pains, atypical, costochondritis most likely: supportive care -Suicidal ideation, Schizophrenia: Consult psych, continue 1013 -No active PE/DVT -Chronic mural aortic thrombus: Cardiology to evaluated, keep on Warfarin due to low cost, no health insurance for Eliquis * 2D ECHO reported Trace TR, est EF 45%, normal RVSF, trace MR * venous BLE doppler negative for DVT medically stable for psych inpt placement History Interval history: Patient was seen and examined. Follow-up on current diagnosis. Overnight uneventful. Patient denies any chest pain, shortness breath, nausea/vomiting or severe headaches. Imaging, nursing note, chart, labs and old chart reviewed. Discussed with patient. Hospitalist Physical - Physical exam Narrative exam: GEN: WDWN, NAD, Awake, Alert, Orientated HEENT: NCAT, EOMI, PERRL, OP Clear NECK: supple, no adenopathy, no thyromegaly, no JVD CVS/HEART: RRR, normal S1S2, pulses present bilaterally CHEST/LUNGS: CTA B, Symmetrical chest expansion, good air entry bilaterally GI/Abdomen: soft, NTND, good bowel sounds, no guarding or rebound /Bladder: no suprapubic tenderness, no CVA or paraspinal tenderness EXT/Skin: no c/c/e, no obvious rash MSK: FROM x 4 Neuro: CN 2-12 grossly intact, no new focal deficits Psych: calm - Constitutional Vitals: Temp Pulse Resp BP Pulse Ox 98.9 F 77 18 116/61 99 08/26/17 06:06 08/26/17 09:09 08/26/17 07:12 08/26/17 09:09 08/26/17 07:12 General appearance: Present: no acute distress Results - Labs CBC & Chem 7: 08/23/17 07:54 08/23/17 07:54 Labs: Laboratory Last Values WBC 6.3 K/mm3 (4.5-11.0) 08/23/17 07:54 RBC 4.64 M/mm3 (3.65-5.03) 08/23/17 07:54 Hgb 10.4 gm/dl (10.1-14.3) 08/23/17 07:54 Hct 33.3 % (30.3-42.9) 08/23/17 07:54 MCV 72 fl (79-97) L 08/23/17 07:54 MCH 23 pg (28-32) L 08/23/17 07:54 MCHC 31 % (30-34) 08/23/17 07:54 RDW 17.6 % (13.2-15.2) H 08/23/17 07:54 Plt Count 406 K/mm3 (140-440) 08/23/17 07:54 Lymph % (Auto) 42.4 % (13.4-35.0) H 08/23/17 07:54 [place] % (Auto) 11.1 % (0.0-7.3) H 08/23/17 07:54 Eos % (Auto) 2.2 % (0.0-4.3) 08/23/17 07:54 Baso % (Auto) 0.5 % (0.0-1.8) 08/23/17 07:54 Lymph # 2.7 K/mm3 (1.2-5.4) 08/23/17 07:54 [place] # 0.7 K/mm3 (0.0-0.8) 08/23/17 07:54 Eos # 0.1 K/mm3 (0.0-0.4) 08/23/17 07:54 Baso # 0.0 K/mm3 (0.0-0.1) 08/23/17 07:54 Seg Neutrophils % 43.8 % (40.0-70.0) 08/23/17 07:54 Seg Neutrophils # 2.8 K/mm3 (1.8-7.7) 08/23/17 07:54 PT 16.0 Sec. (12.2-14.9) H 08/26/17 09:39 INR 1.21 (0.87-1.13) H 08/26/17 09:39 APTT 30.6 Sec. (24.2-36.6) 08/22/17 19:44 Sodium 142 mmol/L (137-145) 08/23/17 07:54 Potassium 4.4 mmol/L (3.6-5.0) 08/23/17 07:54 Chloride 107.9 mmol/L (98-107) H 08/23/17 07:54 Carbon Dioxide 24 mmol/L (22-30) 08/23/17 07:54 Anion Gap 15 mmol/L 08/23/17 07:54 BUN 12 mg/dL (7-17) 08/23/17 07:54 Creatinine 0.5 mg/dL (0.7-1.2) L 08/23/17 07:54 Estimated GFR > 60 ml/min 08/23/17 07:54 BUN/Creatinine Ratio 24 % 08/23/17 07:54 Glucose 82 mg/dL (65-100) 08/23/17 07:54 POC Glucose 126 (70-105) H 08/24/17 17:21 Calcium 8.6 mg/dL (8.4-10.2) 08/23/17 07:54 Total Creatine Kinase 64 units/L (30-135) 08/23/17 08:25 CK-MB (CK-2) < 1.0 ng/mL (0.0-4.0) 08/23/17 08:25 CK-MB (CK-2) Rel Index 1.5 (0-4) 08/23/17 08:25 Troponin T < 0.010 ng/mL (0.00-0.029) 08/23/17 08:25 TSH < 0.005 mlU/mL (0.270-4.200) L 08/22/17 19:44 Urine Color Yellow (Yellow) 08/22/17 21:48 Urine Turbidity Clear (Clear) 08/22/17 21:48 Urine pH 6.0 (5.0-7.0) 08/22/17 21:48 Ur Specific [place] 1.019 (1.003-1.030) 08/22/17 21:48 Urine Protein <15 mg/dl mg/dL (Negative) 08/22/17 21:48 Urine Glucose (UA) Neg mg/dL (Negative) 08/22/17 21:48 Urine Ketones Neg mg/dL (Negative) 08/22/17 21:48 Urine Blood Sm (Negative) 08/22/17 21:48 Urine Nitrite Neg (Negative) 08/22/17 21:48 Urine Bilirubin Neg (Negative) 08/22/17 21:48 Urine Urobilinogen 2.0 mg/dL (<2.0) 08/22/17 21:48 Ur Leukocyte Esterase Neg (Negative) 08/22/17 21:48 Urine WBC (Auto) 1.0 /HPF (0.0-6.0) 08/22/17 21:48 Urine RBC (Auto) 12.0 /HPF (0.0-6.0) 08/22/17 21:48 Urine Mucus Few /HPF 08/22/17 21:48 Urine HCG, Qual Negative (Negative) 08/22/17 21:48 Urine Opiates Screen Presumptive negative 08/22/17 21:48 Urine Methadone Screen Presumptive negative 08/22/17 21:48 Ur Barbiturates Screen Presumptive negative 08/22/17 21:48 Ur Phencyclidine Scrn Presumptive negative 08/22/17 21:48 Ur Amphetamines Screen Presumptive negative 08/22/17 21:48 U Benzodiazepines Scrn Presumptive negative 08/22/17 21:48 Urine Cocaine Screen Presumptive negative 08/22/17 21:48 U Marijuana (THC) Screen Presumptive negative 08/22/17 21:48 Drugs of Abuse Note Disclamer 08/22/17 21:48
[2017-08-26] MEDS: COUMADIN PO SCH (17:39)
[2017-08-26] MEDS: SODIUM CHLORIDE FLUSH SYRINGE 10 ML IV SCH ×2 (17:40→22:59)
--- NOTE | 2017-08-26 18:40 | Progress Note ---
Subjective - Reason for Consult Consult date: 08/26/17 Reason for consult: psychiatric follow up - Chief Complaint Chief complaint: "I have voices to harm myself." 36-year-old AA female presents to the emergency department with chest pain and AH's telling her to kill herself. The patient was concerned she has a pulmonary embolism. She states she has a "thrombus." Per the record, the patient has been worked up for a PE several times recently, and nothing has been found. Today the patient is calm and cooperative during the assessment. She stated being depressed and experiencing voices telling her to kill herself. She stated that her depression has "heightened" since being homeless and her concerns about having a "PE." She expressed the same information as recorded on the previous psychiatric note. She does endorse SI, but would not confirm or deny a suicide plan. She states the sitter is in her room for other reasons than mental health. 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 Today the patient is calm and cooperative during the assessment. Per the medical staff, an active PE has been R/O. DDx: Bipolar DO, R/O MDD with psychosis Recommendation/Plan: Continue 1013 with placement to inpatient psy services. Continue Seroquel 300 mg PO HS for mood/psychosis.
[2017-08-27] MEDS: MORPHINE IV PRN ×5 (03:56→23:20)
[2017-08-27] MEDS: TAPAZOLE PO SCH ×3 (06:05→21:31)
[2017-08-27] MEDS: TYLENOL PO PRN ×2 (06:23→21:30)
[2017-08-27] MEDS: XANAX PO PRN ×2 (06:23→21:30)
[2017-08-27 09:38] LABS: INR 1.3 (0.87-1.13)
[2017-08-27] MEDS: LYRICA PO SCH (10:14)
[2017-08-27] MEDS: PROTONIX PO SCH ×2 (10:15→21:30)
[2017-08-27] MEDS: INDERAL LA PO SCH ×2 (10:15→21:32)
[2017-08-27] MEDS: SODIUM CHLORIDE FLUSH SYRINGE 10 ML IV SCH ×2 (10:16→21:32)
--- NOTE | 2017-08-27 12:14 | Progress Note ---
Assessment and Plan Assessment and plan: Patient is a a 36-year-old woman with history of hypertension, anxiety, PE, DVT , seizure, hyperthyroidism, bipolar, schizophrenia, hematemesis refusing prior EGD (see my discharge summary 07/21/16) and multiple ED visits, averaging 2-3 ED visits per month since 2017 pw right sided CP per EMS documentation, reporting syncopal episode and hallucinations with SI and placed on 1013 in ED. Patient had multiple CTA chest, seemingly every month and no PE has been found. * pCXR report irregular 1.6 cm density in the left lower lung is new since prior study and most likely represents an area of early consolidation. * 08/19/17 CTA chest IMPRESSION: Small filling defect within mid descending thoracic aorta of this was present previously a portion of this appears intraluminal on the current study most likely reflecting a small mural thrombus or soft plaque. No evidence for dissection. No CT evidence of acute pulmonary embolus -Syncope, autonomic dysfunction: IVF and supportive care -Chest pains, atypical, costochondritis most likely: supportive care -Suicidal ideation, Schizophrenia: Consult psych, continue 1013 -No active PE/DVT -Chronic mural aortic thrombus: Cardiology to evaluated, keep on Warfarin due to low cost, no health insurance for Eliquis * 2D ECHO reported Trace TR, est EF 45%, normal RVSF, trace MR * venous BLE doppler negative for DVT medically stable for psych inpt placement History Interval history: Patient was seen and examined. Follow-up on current diagnosis. Overnight uneventful. Patient denies any chest pain, shortness breath, nausea/vomiting or severe headaches. Imaging, nursing note, chart, labs and old chart reviewed. Discussed with patient. Hospitalist Physical - Physical exam Narrative exam: GEN: WDWN, NAD, Awake, Alert, Orientated HEENT: NCAT, EOMI, PERRL, OP Clear NECK: supple, no adenopathy, no thyromegaly, no JVD CVS/HEART: RRR, normal S1S2, pulses present bilaterally CHEST/LUNGS: CTA B, Symmetrical chest expansion, good air entry bilaterally GI/Abdomen: soft, NTND, good bowel sounds, no guarding or rebound /Bladder: no suprapubic tenderness, no CVA or paraspinal tenderness EXT/Skin: no c/c/e, no obvious rash MSK: FROM x 4 Neuro: CN 2-12 grossly intact, no new focal deficits Psych: calm - Constitutional Vitals: Temp Pulse Resp BP Pulse Ox 98.5 F 76 16 108/59 97 08/27/17 11:54 08/27/17 11:54 08/27/17 11:54 08/27/17 11:54 08/27/17 11:54 General appearance: Present: no acute distress Results - Labs CBC & Chem 7: 08/23/17 07:54 08/23/17 07:54 Labs: Laboratory Last Values WBC 6.3 K/mm3 (4.5-11.0) 08/23/17 07:54 RBC 4.64 M/mm3 (3.65-5.03) 08/23/17 07:54 Hgb 10.4 gm/dl (10.1-14.3) 08/23/17 07:54 Hct 33.3 % (30.3-42.9) 08/23/17 07:54 MCV 72 fl (79-97) L 08/23/17 07:54 MCH 23 pg (28-32) L 08/23/17 07:54 MCHC 31 % (30-34) 08/23/17 07:54 RDW 17.6 % (13.2-15.2) H 08/23/17 07:54 Plt Count 406 K/mm3 (140-440) 08/23/17 07:54 Lymph % (Auto) 42.4 % (13.4-35.0) H 08/23/17 07:54 [place] % (Auto) 11.1 % (0.0-7.3) H 08/23/17 07:54 Eos % (Auto) 2.2 % (0.0-4.3) 08/23/17 07:54 Baso % (Auto) 0.5 % (0.0-1.8) 08/23/17 07:54 Lymph # 2.7 K/mm3 (1.2-5.4) 08/23/17 07:54 [place] # 0.7 K/mm3 (0.0-0.8) 08/23/17 07:54 Eos # 0.1 K/mm3 (0.0-0.4) 08/23/17 07:54 Baso # 0.0 K/mm3 (0.0-0.1) 08/23/17 07:54 Seg Neutrophils % 43.8 % (40.0-70.0) 08/23/17 07:54 Seg Neutrophils # 2.8 K/mm3 (1.8-7.7) 08/23/17 07:54 PT 16.9 Sec. (12.2-14.9) H 08/27/17 08:38 INR 1.30 (0.87-1.13) H 08/27/17 08:38 APTT 30.6 Sec. (24.2-36.6) 08/22/17 19:44 Sodium 142 mmol/L (137-145) 08/23/17 07:54 Potassium 4.4 mmol/L (3.6-5.0) 08/23/17 07:54 Chloride 107.9 mmol/L (98-107) H 08/23/17 07:54 Carbon Dioxide 24 mmol/L (22-30) 08/23/17 07:54 Anion Gap 15 mmol/L 08/23/17 07:54 BUN 12 mg/dL (7-17) 08/23/17 07:54 Creatinine 0.5 mg/dL (0.7-1.2) L 08/23/17 07:54 Estimated GFR > 60 ml/min 08/23/17 07:54 BUN/Creatinine Ratio 24 % 08/23/17 07:54 Glucose 82 mg/dL (65-100) 08/23/17 07:54 POC Glucose 126 (70-105) H 08/24/17 17:21 Calcium 8.6 mg/dL (8.4-10.2) 08/23/17 07:54 Total Creatine Kinase 64 units/L (30-135) 08/23/17 08:25 CK-MB (CK-2) < 1.0 ng/mL (0.0-4.0) 08/23/17 08:25 CK-MB (CK-2) Rel Index 1.5 (0-4) 08/23/17 08:25 Troponin T < 0.010 ng/mL (0.00-0.029) 08/23/17 08:25 TSH < 0.005 mlU/mL (0.270-4.200) L 08/22/17 19:44 Urine Color Yellow (Yellow) 08/22/17 21:48 Urine Turbidity Clear (Clear) 08/22/17 21:48 Urine pH 6.0 (5.0-7.0) 08/22/17 21:48 Ur Specific [place] 1.019 (1.003-1.030) 08/22/17 21:48 Urine Protein <15 mg/dl mg/dL (Negative) 08/22/17 21:48 Urine Glucose (UA) Neg mg/dL (Negative) 08/22/17 21:48 Urine Ketones Neg mg/dL (Negative) 08/22/17 21:48 Urine Blood Sm (Negative) 08/22/17 21:48 Urine Nitrite Neg (Negative) 08/22/17 21:48 Urine Bilirubin Neg (Negative) 08/22/17 21:48 Urine Urobilinogen 2.0 mg/dL (<2.0) 08/22/17 21:48 Ur Leukocyte Esterase Neg (Negative) 08/22/17 21:48 Urine WBC (Auto) 1.0 /HPF (0.0-6.0) 08/22/17 21:48 Urine RBC (Auto) 12.0 /HPF (0.0-6.0) 08/22/17 21:48 Urine Mucus Few /HPF 08/22/17 21:48 Urine HCG, Qual Negative (Negative) 08/22/17 21:48 Urine Opiates Screen Presumptive negative 08/22/17 21:48 Urine Methadone Screen Presumptive negative 08/22/17 21:48 Ur Barbiturates Screen Presumptive negative 08/22/17 21:48 Ur Phencyclidine Scrn Presumptive negative 08/22/17 21:48 Ur Amphetamines Screen Presumptive negative 08/22/17 21:48 U Benzodiazepines Scrn Presumptive negative 08/22/17 21:48 Urine Cocaine Screen Presumptive negative 08/22/17 21:48 U Marijuana (THC) Screen Presumptive negative 08/22/17 21:48 Drugs of Abuse Note Disclamer 08/22/17 21:48
[2017-08-27] MEDS: COUMADIN PO SCH (17:10)
--- NOTE | 2017-08-27 19:50 | Progress Note ---
Subjective - Reason for Consult Consult date: 08/27/17 Reason for consult: follow up - Chief Complaint Chief complaint: "I still have voices to harm myself." 36-year-old AA female presents to the emergency department with chest pain and AH's telling her to kill herself. The patient was concerned she has a pulmonary embolism. She states she has a "thrombus." Per the record, the patient has been worked up for a PE several times recently, and nothing has been found. Today the patient is calm and cooperative during the assessment. She stated being depressed and experiencing voices telling her to kill herself. She stated that her depression has "heightened" since being homeless and her concerns about having a "PE." No changes identified from the previous assessment. She does endorse SI, but would not confirm or deny a suicide plan. She states the sitter is in her room for other reasons than mental health. 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 Today the patient is calm and cooperative during the assessment. Per the medical staff, an active PE has been R/O. DDx: Bipolar DO, R/O MDD with psychosis Recommendation/Plan: Continue 1013 with placement to inpatient psy services. Continue Seroquel 300 mg PO HS for mood/psychosis.
[2017-08-28] MEDS: TAPAZOLE PO SCH ×3 (05:10→22:23)
[2017-08-28] MEDS: MORPHINE IV PRN (05:10)
[2017-08-28] MEDS: TYLENOL PO PRN ×2 (06:54→16:03)
[2017-08-28 07:24] LABS: INR 1.34 (0.87-1.13)
[2017-08-28] MEDS: LYRICA PO SCH (09:33)
[2017-08-28] MEDS: INDERAL LA PO SCH ×2 (09:33→22:22)
[2017-08-28] MEDS: PROTONIX PO SCH ×2 (09:34→22:23)
--- NOTE | 2017-08-28 09:51 | Progress Note ---
Assessment and Plan Assessment and plan: Patient is a a 36-year-old woman with history of hypertension, anxiety, PE, DVT , seizure, hyperthyroidism, bipolar, schizophrenia, hematemesis refusing prior EGD (see my discharge summary 07/21/16) and multiple ED visits, averaging 2-3 ED visits per month since 2017 pw right sided CP per EMS documentation, reporting syncopal episode and hallucinations with SI and placed on 1013 in ED. Patient had multiple CTA chest, seemingly every month and no PE has been found. * pCXR report irregular 1.6 cm density in the left lower lung is new since prior study and most likely represents an area of early consolidation. * 08/19/17 CTA chest IMPRESSION: Small filling defect within mid descending thoracic aorta of this was present previously a portion of this appears intraluminal on the current study most likely reflecting a small mural thrombus or soft plaque. No evidence for dissection. No CT evidence of acute pulmonary embolus * 2D ECHO reported Trace TR, est EF 45%, normal RVSF, trace MR * venous BLE doppler negative for DVT -Syncope, autonomic dysfunction: IVF and supportive care -Chest pains, atypical, costochondritis most likely: supportive care -Chronic pain syndrome: d/c iv morphine because she is asking for it every 4hours, use oral scheduled morphine -Suicidal ideation, Schizophrenia: Psych provider is following, continue 1013, sitter at bedside -Hyperthyroidism: follow up Free T4, continue Tapezole -No active PE/DVT -Chronic mural aortic thrombus: Cardiology to evaluated and recommends Warfarin , monitor INR daily goal 2-3 medically stable for psych inpt placement History Interval history: Patient was seen and examined. Follow-up on current diagnosis of chest pains which she has constantly and asks for Morphine iv q4hr. Overnight uneventful. Patient denies any shortness breath, nausea/vomiting or severe headaches. Imaging, nursing note, chart, labs and old chart reviewed. Discussed with patient. Hospitalist Physical - Physical exam Narrative exam: GEN: WDWN, NAD, Awake, Alert, Orientated HEENT: NCAT, EOMI, PERRL, OP Clear NECK: supple, no adenopathy, no thyromegaly, no JVD CVS/HEART: RRR, normal S1S2, pulses present bilaterally CHEST/LUNGS: CTA B, Symmetrical chest expansion, good air entry bilaterally GI/Abdomen: soft, NTND, good bowel sounds, no guarding or rebound /Bladder: no suprapubic tenderness, no CVA or paraspinal tenderness EXT/Skin: no c/c/e, no obvious rash MSK: FROM x 4 Neuro: CN 2-12 grossly intact, no new focal deficits Psych: calm - Constitutional Vitals: Temp Pulse Resp BP Pulse Ox 97.8 F 82 18 131/76 97 08/28/17 05:25 08/28/17 05:00 08/28/17 06:54 08/28/17 09:33 08/28/17 05:00 General appearance: Present: no acute distress Results - Labs CBC & Chem 7: 08/23/17 07:54 08/23/17 07:54 Labs: Laboratory Last Values WBC 6.3 K/mm3 (4.5-11.0) 08/23/17 07:54 RBC 4.64 M/mm3 (3.65-5.03) 08/23/17 07:54 Hgb 10.4 gm/dl (10.1-14.3) 08/23/17 07:54 Hct 33.3 % (30.3-42.9) 08/23/17 07:54 MCV 72 fl (79-97) L 08/23/17 07:54 MCH 23 pg (28-32) L 08/23/17 07:54 MCHC 31 % (30-34) 08/23/17 07:54 RDW 17.6 % (13.2-15.2) H 08/23/17 07:54 Plt Count 406 K/mm3 (140-440) 08/23/17 07:54 Lymph % (Auto) 42.4 % (13.4-35.0) H 08/23/17 07:54 [place] % (Auto) 11.1 % (0.0-7.3) H 08/23/17 07:54 Eos % (Auto) 2.2 % (0.0-4.3) 08/23/17 07:54 Baso % (Auto) 0.5 % (0.0-1.8) 08/23/17 07:54 Lymph # 2.7 K/mm3 (1.2-5.4) 08/23/17 07:54 [place] # 0.7 K/mm3 (0.0-0.8) 08/23/17 07:54 Eos # 0.1 K/mm3 (0.0-0.4) 08/23/17 07:54 Baso # 0.0 K/mm3 (0.0-0.1) 08/23/17 07:54 Seg Neutrophils % 43.8 % (40.0-70.0) 08/23/17 07:54 Seg Neutrophils # 2.8 K/mm3 (1.8-7.7) 08/23/17 07:54 PT 17.3 Sec. (12.2-14.9) H 08/28/17 06:51 INR 1.34 (0.87-1.13) H 08/28/17 06:51 APTT 30.6 Sec. (24.2-36.6) 08/22/17 19:44 Sodium 142 mmol/L (137-145) 08/23/17 07:54 Potassium 4.4 mmol/L (3.6-5.0) 08/23/17 07:54 Chloride 107.9 mmol/L (98-107) H 08/23/17 07:54 Carbon Dioxide 24 mmol/L (22-30) 08/23/17 07:54 Anion Gap 15 mmol/L 08/23/17 07:54 BUN 12 mg/dL (7-17) 08/23/17 07:54 Creatinine 0.5 mg/dL (0.7-1.2) L 08/23/17 07:54 Estimated GFR > 60 ml/min 08/23/17 07:54 BUN/Creatinine Ratio 24 % 08/23/17 07:54 Glucose 82 mg/dL (65-100) 08/23/17 07:54 POC Glucose 126 (70-105) H 08/24/17 17:21 Calcium 8.6 mg/dL (8.4-10.2) 08/23/17 07:54 Total Creatine Kinase 64 units/L (30-135) 08/23/17 08:25 CK-MB (CK-2) < 1.0 ng/mL (0.0-4.0) 08/23/17 08:25 CK-MB (CK-2) Rel Index 1.5 (0-4) 08/23/17 08:25 Troponin T < 0.010 ng/mL (0.00-0.029) 08/23/17 08:25 TSH < 0.005 mlU/mL (0.270-4.200) L 08/22/17 19:44 Urine Color Yellow (Yellow) 08/22/17 21:48 Urine Turbidity Clear (Clear) 08/22/17 21:48 Urine pH 6.0 (5.0-7.0) 08/22/17 21:48 Ur Specific [place] 1.019 (1.003-1.030) 08/22/17 21:48 Urine Protein <15 mg/dl mg/dL (Negative) 08/22/17 21:48 Urine Glucose (UA) Neg mg/dL (Negative) 08/22/17 21:48 Urine Ketones Neg mg/dL (Negative) 08/22/17 21:48 Urine Blood Sm (Negative) 08/22/17 21:48 Urine Nitrite Neg (Negative) 08/22/17 21:48 Urine Bilirubin Neg (Negative) 08/22/17 21:48 Urine Urobilinogen 2.0 mg/dL (<2.0) 08/22/17 21:48 Ur Leukocyte Esterase Neg (Negative) 08/22/17 21:48 Urine WBC (Auto) 1.0 /HPF (0.0-6.0) 08/22/17 21:48 Urine RBC (Auto) 12.0 /HPF (0.0-6.0) 08/22/17 21:48 Urine Mucus Few /HPF 08/22/17 21:48 Urine HCG, Qual Negative (Negative) 08/22/17 21:48 Urine Opiates Screen Presumptive negative 08/22/17 21:48 Urine Methadone Screen Presumptive negative 08/22/17 21:48 Ur Barbiturates Screen Presumptive negative 08/22/17 21:48 Ur Phencyclidine Scrn Presumptive negative 08/22/17 21:48 Ur Amphetamines Screen Presumptive negative 08/22/17 21:48 U Benzodiazepines Scrn Presumptive negative 08/22/17 21:48 Urine Cocaine Screen Presumptive negative 08/22/17 21:48 U Marijuana (THC) Screen Presumptive negative 08/22/17 21:48 Drugs of Abuse Note Disclamer 08/22/17 21:48
[2017-08-28] MEDS: XANAX PO PRN (09:58)
[2017-08-28] MEDS: MS CONTIN ER PO SCH ×2 (11:07→22:23)
[2017-08-28] MEDS: SODIUM CHLORIDE FLUSH SYRINGE 10 ML IV SCH ×2 (11:08→22:25)
--- NOTE | 2017-08-28 13:38 | Progress Note ---
Subjective - Reason for Consult Consult date: 08/28/17 Reason for consult: Psychiatry Follow-up - Chief Complaint Chief complaint: "I still hear voices" 36-year-old AA female presents to the emergency department with chest pain and AH's telling her to kill herself. The patient was concerned she has a pulmonary embolism. She states she has a "thrombus." Per the record, the patient has been worked up for a PE several times recently, and nothing has been found. Today the patient is calm and cooperative during the assessment. She continues to endorse SI's. She would not confirm or deny a suicide plan when asked. She stated that the voices are "overwhelming" and she want them to stop. She stated that she didn't sleep well last night because of the voices. She i HI's and VH' s. She denies any side effects of her medications. The patient continue to state that she isn't medical stable. Mental Status Exam - Vital signs Last Vital Signs Temp 97.6 F 08/28/17 11:47 Pulse 84 08/28/17 11:47 Resp 18 08/28/17 11:47 BP 123/76 08/28/17 11:47 Pulse Ox 98 08/28/17 11:47 - Exam Narrative exam: MSE: Appearance: calm, cooperative Behavior: regular eye contact Speech: regular rate and tone Mood: "okay" Affect: flat Thought Process: circumstantial Thought Content: denies HI's and VH's, delusional Motor Activity: sitting up in bed Cognition: A/O x 3 Insight: variable Judgment: variable Assessment and Plan Impression: Unspecified Mood DO with psy features vs Schizophrenia (somatic delusions). Today the patient is calm and cooperative during the assessment. Per the medical staff, an active PE has been R/O. DDx: Bipolar DO, R/O MDD with psychosis Recommendation/Plan: Continue 1013 with placement to inpatient psy services. Increase Seroquel to 400 mg PO HS for mood/psychosis. Discussed possible metabolic side effects of Seroquel with patient.
[2017-08-28] MEDS: COUMADIN PO SCH (17:29)
[2017-08-29] MEDS: TYLENOL PO PRN (06:23)
[2017-08-29] MEDS: XANAX PO PRN ×2 (06:24→22:11)
[2017-08-29] MEDS: TAPAZOLE PO SCH ×3 (06:45→21:53)
[2017-08-29 06:55] LABS: INR 1.42 (0.87-1.13)
[2017-08-29] MEDS: INDERAL LA PO SCH ×2 (10:29→21:49)
[2017-08-29] MEDS: SODIUM CHLORIDE FLUSH SYRINGE 10 ML IV SCH ×2 (10:29→21:53)
[2017-08-29] MEDS: LYRICA PO SCH (10:29)
[2017-08-29] MEDS: MS CONTIN ER PO SCH ×2 (10:30→21:50)
[2017-08-29] MEDS: PROTONIX PO SCH ×2 (10:30→21:52)
--- NOTE | 2017-08-29 10:50 | Progress Note ---
Assessment and Plan Assessment and plan: -Syncope, autonomic dysfunction: IVF and supportive care -Chest pains, atypical, costochondritis most likely: supportive care -Chronic pain syndrome: Cont. oral scheduled morphine -Suicidal ideation, Schizophrenia: Psych provider is following, continue 1013, sitter at bedside -Hyperthyroidism: follow up Free T4, continue Tapazole -No active PE/DVT -Chronic mural aortic thrombus: CTA chest reveals Small filling defect within mid descending thoracic aorta of this was present previously a portion of this appears intraluminal on the current study most likely reflecting a small mural thrombus or soft plaque. No evidence for dissection. No CT evidence of acute pulmonary embolus Cardiology evaluated and recommends Warfarin, monitor INR daily goal 2-3 History Interval history: No new issues Hospitalist Physical - Constitutional Vitals: Temp Pulse Resp BP Pulse Ox 98.9 F 85 18 104/59 94 08/29/17 08:49 08/29/17 08:49 08/29/17 08:49 08/29/17 08:49 08/29/17 08:49 General appearance: Present: no acute distress - EENT Eyes: Present: PERRL, EOM intact ENT: hearing intact, clear oral mucosa, dentition normal - Neck Neck: Present: supple, normal ROM - Respiratory Respiratory effort: normal Respiratory: bilateral: CTA - Cardiovascular Rhythm: regular Heart Sounds: Present: S1 & S2. Absent: gallop, rub - Extremities Extremities: no ischemia, No edema, Full ROM - Abdominal General gastrointestinal: soft, non-tender, non-distended, normal bowel sounds - Integumentary Integumentary: Present: clear, warm, dry - Neurologic Neurologic: CNII-XII intact, moves all extremities Results - Labs CBC & Chem 7: 08/23/17 07:54 08/23/17 07:54 Labs: Laboratory Last Values WBC 6.3 K/mm3 (4.5-11.0) 08/23/17 07:54 RBC 4.64 M/mm3 (3.65-5.03) 08/23/17 07:54 Hgb 10.4 gm/dl (10.1-14.3) 08/23/17 07:54 Hct 33.3 % (30.3-42.9) 08/23/17 07:54 MCV 72 fl (79-97) L 08/23/17 07:54 MCH 23 pg (28-32) L 08/23/17 07:54 MCHC 31 % (30-34) 08/23/17 07:54 RDW 17.6 % (13.2-15.2) H 08/23/17 07:54 Plt Count 406 K/mm3 (140-440) 08/23/17 07:54 Lymph % (Auto) 42.4 % (13.4-35.0) H 08/23/17 07:54 [place] % (Auto) 11.1 % (0.0-7.3) H 08/23/17 07:54 Eos % (Auto) 2.2 % (0.0-4.3) 08/23/17 07:54 Baso % (Auto) 0.5 % (0.0-1.8) 08/23/17 07:54 Lymph # 2.7 K/mm3 (1.2-5.4) 08/23/17 07:54 [place] # 0.7 K/mm3 (0.0-0.8) 08/23/17 07:54 Eos # 0.1 K/mm3 (0.0-0.4) 08/23/17 07:54 Baso # 0.0 K/mm3 (0.0-0.1) 08/23/17 07:54 Seg Neutrophils % 43.8 % (40.0-70.0) 08/23/17 07:54 Seg Neutrophils # 2.8 K/mm3 (1.8-7.7) 08/23/17 07:54 PT 18.2 Sec. (12.2-14.9) H 08/29/17 06:01 INR 1.42 (0.87-1.13) H 08/29/17 06:01 APTT 30.6 Sec. (24.2-36.6) 08/22/17 19:44 Sodium 142 mmol/L (137-145) 08/23/17 07:54 Potassium 4.4 mmol/L (3.6-5.0) 08/23/17 07:54 Chloride 107.9 mmol/L (98-107) H 08/23/17 07:54 Carbon Dioxide 24 mmol/L (22-30) 08/23/17 07:54 Anion Gap 15 mmol/L 08/23/17 07:54 BUN 12 mg/dL (7-17) 08/23/17 07:54 Creatinine 0.5 mg/dL (0.7-1.2) L 08/23/17 07:54 Estimated GFR > 60 ml/min 08/23/17 07:54 BUN/Creatinine Ratio 24 % 08/23/17 07:54 Glucose 82 mg/dL (65-100) 08/23/17 07:54 POC Glucose 126 (70-105) H 08/24/17 17:21 Calcium 8.6 mg/dL (8.4-10.2) 08/23/17 07:54 Total Creatine Kinase 64 units/L (30-135) 08/23/17 08:25 CK-MB (CK-2) < 1.0 ng/mL (0.0-4.0) 08/23/17 08:25 CK-MB (CK-2) Rel Index 1.5 (0-4) 08/23/17 08:25 Troponin T < 0.010 ng/mL (0.00-0.029) 08/23/17 08:25 TSH < 0.005 mlU/mL (0.270-4.200) L 08/22/17 19:44 Free T4 1.16 ng/dL (0.76-1.46) 08/28/17 10:18 Urine Color Yellow (Yellow) 08/22/17 21:48 Urine Turbidity Clear (Clear) 08/22/17 21:48 Urine pH 6.0 (5.0-7.0) 08/22/17 21:48 Ur Specific [place] 1.019 (1.003-1.030) 08/22/17 21:48 Urine Protein <15 mg/dl mg/dL (Negative) 08/22/17 21:48 Urine Glucose (UA) Neg mg/dL (Negative) 08/22/17 21:48 Urine Ketones Neg mg/dL (Negative) 08/22/17 21:48 Urine Blood Sm (Negative) 08/22/17 21:48 Urine Nitrite Neg (Negative) 08/22/17 21:48 Urine Bilirubin Neg (Negative) 08/22/17 21:48 Urine Urobilinogen 2.0 mg/dL (<2.0) 08/22/17 21:48 Ur Leukocyte Esterase Neg (Negative) 08/22/17 21:48 Urine WBC (Auto) 1.0 /HPF (0.0-6.0) 08/22/17 21:48 Urine RBC (Auto) 12.0 /HPF (0.0-6.0) 08/22/17 21:48 Urine Mucus Few /HPF 08/22/17 21:48 Urine HCG, Qual Negative (Negative) 08/22/17 21:48 Urine Opiates Screen Presumptive negative 08/22/17 21:48 Urine Methadone Screen Presumptive negative 08/22/17 21:48 Ur Barbiturates Screen Presumptive negative 08/22/17 21:48 Ur Phencyclidine Scrn Presumptive negative 08/22/17 21:48 Ur Amphetamines Screen Presumptive negative 08/22/17 21:48 U Benzodiazepines Scrn Presumptive negative 08/22/17 21:48 Urine Cocaine Screen Presumptive negative 08/22/17 21:48 U Marijuana (THC) Screen Presumptive negative 08/22/17 21:48 Drugs of Abuse Note Disclamer 08/22/17 21:48
--- NOTE | 2017-08-29 12:36 | Progress Note ---
Subjective - Reason for Consult Consult date: 08/29/17 Reason for consult: Psychiatry Follow-up - Chief Complaint Chief complaint: "I want the voices to go away" 36-year-old AA female presents to the emergency department with chest pain and AH's telling her to kill herself. The patient was concerned she has a pulmonary embolism. She states she has a "thrombus." Per the record, the patient has been worked up for a PE several times recently, and nothing has been found. Today the patient is calm and cooperative during the assessment. She stated that the voices has been an ongoing issues for her the past month. She continues to endorse SI's. She would not confirm or deny a suicide plan when asked. She denies HI's and VH's. She denies any side effects of her medications. 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 Today the patient is calm and cooperative during the assessment. Per the medical staff, an active PE has been R/O. DDx: Bipolar DO, R/O MDD with psychosis Recommendation/Plan: Continue 1013 with placement to inpatient psy services. Continue Seroquel to 400 mg PO HS for mood/psychosis. Discussed possible metabolic side effects of Seroquel with patient.
[2017-08-29] MEDS: COUMADIN PO SCH (18:00)
[2017-08-30] MEDS: TAPAZOLE PO SCH ×2 (06:00→16:08)
[2017-08-30] MEDS: TYLENOL PO PRN ×2 (06:01→16:07)
[2017-08-30 08:59] LABS: INR 1.74 (0.87-1.13)
[2017-08-30] MEDS ORDERED: MS CONTIN ER PO SCH ×2 (11:15→12:00)
--- NOTE | 2017-08-30 11:15 | Progress Note ---
Assessment and Plan Assessment and plan: -Syncope, autonomic dysfunction: IVF and supportive care -Chest pains, atypical, costochondritis most likely: supportive care -Chronic pain syndrome: Cont. oral scheduled morphine -Suicidal ideation, Schizophrenia: Psych provider is following, continue 1013, sitter at bedside -Hyperthyroidism: continue Tapazole -No active PE/DVT -Chronic mural aortic thrombus: CTA chest reveals Small filling defect within mid descending thoracic aorta of this was present previously a portion of this appears intraluminal on the current study most likely reflecting a small mural thrombus or soft plaque. No evidence for dissection. No CT evidence of acute pulmonary embolus Cardiology evaluated and recommends Warfarin, monitor INR daily goal 2-3 History Interval history: No new issues Hospitalist Physical - Constitutional Vitals: Temp Pulse Resp BP Pulse Ox 99.2 F 81 16 109/69 98 08/30/17 05:37 08/30/17 05:37 08/30/17 05:37 08/30/17 05:37 08/30/17 05:37 General appearance: Present: no acute distress - EENT Eyes: Present: PERRL, EOM intact ENT: hearing intact, clear oral mucosa, dentition normal - Neck Neck: Present: supple, normal ROM - Respiratory Respiratory effort: normal Respiratory: bilateral: CTA - Cardiovascular Rhythm: regular Heart Sounds: Present: S1 & S2. Absent: gallop, rub - Extremities Extremities: no ischemia, No edema, Full ROM - Abdominal General gastrointestinal: soft, non-tender, non-distended, normal bowel sounds - Integumentary Integumentary: Present: clear, warm, dry - Neurologic Neurologic: CNII-XII intact, moves all extremities Results - Labs CBC & Chem 7: 08/23/17 07:54 08/23/17 07:54 Labs: Laboratory Last Values WBC 6.3 K/mm3 (4.5-11.0) 08/23/17 07:54 RBC 4.64 M/mm3 (3.65-5.03) 08/23/17 07:54 Hgb 10.4 gm/dl (10.1-14.3) 08/23/17 07:54 Hct 33.3 % (30.3-42.9) 08/23/17 07:54 MCV 72 fl (79-97) L 08/23/17 07:54 MCH 23 pg (28-32) L 08/23/17 07:54 MCHC 31 % (30-34) 08/23/17 07:54 RDW 17.6 % (13.2-15.2) H 08/23/17 07:54 Plt Count 406 K/mm3 (140-440) 08/23/17 07:54 Lymph % (Auto) 42.4 % (13.4-35.0) H 08/23/17 07:54 [place] % (Auto) 11.1 % (0.0-7.3) H 08/23/17 07:54 Eos % (Auto) 2.2 % (0.0-4.3) 08/23/17 07:54 Baso % (Auto) 0.5 % (0.0-1.8) 08/23/17 07:54 Lymph # 2.7 K/mm3 (1.2-5.4) 08/23/17 07:54 [place] # 0.7 K/mm3 (0.0-0.8) 08/23/17 07:54 Eos # 0.1 K/mm3 (0.0-0.4) 08/23/17 07:54 Baso # 0.0 K/mm3 (0.0-0.1) 08/23/17 07:54 Seg Neutrophils % 43.8 % (40.0-70.0) 08/23/17 07:54 Seg Neutrophils # 2.8 K/mm3 (1.8-7.7) 08/23/17 07:54 PT 21.4 Sec. (12.2-14.9) H 08/30/17 08:14 INR 1.74 (0.87-1.13) H 08/30/17 08:14 APTT 30.6 Sec. (24.2-36.6) 08/22/17 19:44 Sodium 142 mmol/L (137-145) 08/23/17 07:54 Potassium 4.4 mmol/L (3.6-5.0) 08/23/17 07:54 Chloride 107.9 mmol/L (98-107) H 08/23/17 07:54 Carbon Dioxide 24 mmol/L (22-30) 08/23/17 07:54 Anion Gap 15 mmol/L 08/23/17 07:54 BUN 12 mg/dL (7-17) 08/23/17 07:54 Creatinine 0.5 mg/dL (0.7-1.2) L 08/23/17 07:54 Estimated GFR > 60 ml/min 08/23/17 07:54 BUN/Creatinine Ratio 24 % 08/23/17 07:54 Glucose 82 mg/dL (65-100) 08/23/17 07:54 POC Glucose 126 (70-105) H 08/24/17 17:21 Calcium 8.6 mg/dL (8.4-10.2) 08/23/17 07:54 Total Creatine Kinase 64 units/L (30-135) 08/23/17 08:25 CK-MB (CK-2) < 1.0 ng/mL (0.0-4.0) 08/23/17 08:25 CK-MB (CK-2) Rel Index 1.5 (0-4) 08/23/17 08:25 Troponin T < 0.010 ng/mL (0.00-0.029) 08/23/17 08:25 TSH < 0.005 mlU/mL (0.270-4.200) L 08/22/17 19:44 Free T4 1.16 ng/dL (0.76-1.46) 08/28/17 10:18 Urine Color Yellow (Yellow) 08/22/17 21:48 Urine Turbidity Clear (Clear) 08/22/17 21:48 Urine pH 6.0 (5.0-7.0) 08/22/17 21:48 Ur Specific [place] 1.019 (1.003-1.030) 08/22/17 21:48 Urine Protein <15 mg/dl mg/dL (Negative) 08/22/17 21:48 Urine Glucose (UA) Neg mg/dL (Negative) 08/22/17 21:48 Urine Ketones Neg mg/dL (Negative) 08/22/17 21:48 Urine Blood Sm (Negative) 08/22/17 21:48 Urine Nitrite Neg (Negative) 08/22/17 21:48 Urine Bilirubin Neg (Negative) 08/22/17 21:48 Urine Urobilinogen 2.0 mg/dL (<2.0) 08/22/17 21:48 Ur Leukocyte Esterase Neg (Negative) 08/22/17 21:48 Urine WBC (Auto) 1.0 /HPF (0.0-6.0) 08/22/17 21:48 Urine RBC (Auto) 12.0 /HPF (0.0-6.0) 08/22/17 21:48 Urine Mucus Few /HPF 08/22/17 21:48 Urine HCG, Qual Negative (Negative) 08/22/17 21:48 Urine Opiates Screen Presumptive negative 08/22/17 21:48 Urine Methadone Screen Presumptive negative 08/22/17 21:48 Ur Barbiturates Screen Presumptive negative 08/22/17 21:48 Ur Phencyclidine Scrn Presumptive negative 08/22/17 21:48 Ur Amphetamines Screen Presumptive negative 08/22/17 21:48 U Benzodiazepines Scrn Presumptive negative 08/22/17 21:48 Urine Cocaine Screen Presumptive negative 08/22/17 21:48 U Marijuana (THC) Screen Presumptive negative 08/22/17 21:48 Drugs of Abuse Note Disclamer 08/22/17 21:48
[2017-08-30] MEDS: INDERAL LA PO SCH (11:19)
[2017-08-30] MEDS: LYRICA PO SCH (11:19)
[2017-08-30] MEDS: PROTONIX PO SCH (11:20)
[2017-08-30] MEDS: SODIUM CHLORIDE FLUSH SYRINGE 10 ML IV SCH (11:21)
[2017-08-30] MEDS: MS CONTIN ER PO SCH (11:49)
--- NOTE | 2017-08-30 11:57 | Progress Note ---
Subjective - Reason for Consult Consult date: 08/30/17 Reason for consult: Psychiatric Follow-up Evaluation - Chief Complaint Chief complaint: "I want the voices to go away" 36-year-old AA female presents to the emergency department with chest pain and AH's telling her to kill herself. The patient was concerned she has a pulmonary embolism. She states she has a "thrombus." Per the record, the patient has been worked up for a PE several times recently, and nothing has been found. Today the patient is calm and cooperative during the assessment. She stated that the voices has been an ongoing issues for her the past month. She continues to endorse SI's. She would not confirm or deny a suicide plan when asked. She denies HI's and VH's. She denies any side effects of her medications. 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 Today the patient is calm and cooperative during the assessment. Per the medical staff, an active PE has been R/O. DDx: Bipolar DO, R/O MDD with psychosis Recommendation/Plan: Continue 1013 with placement to inpatient psy services. Continue Seroquel to 400 mg PO HS for mood/psychosis. Discussed possible metabolic side effects of Seroquel with patient.
[2017-08-30] MEDS: COUMADIN PO SCH (16:15)
[2017-08-30 16:49] VITALS: BP 130/81
== END 2017-08-30 16:35 | DRG 74 ==
LOC: ED 18:21 → EEVIPCON 22:29 → 4A 22:29 → 3A 08-26 14:39
PROVIDERS: ADMIT Internal Medicine; ATTEND Hospitalist
DX: G90.9 Disorder of the autonomic nervous system, unspecified (principal); R45.851 Suicidal ideations; I74.19 Embolism and thrombosis of other parts of aorta; F29 Unspecified psychosis not due to a substance or known physiological condition; M94.0 Chondrocostal junction syndrome [Tietze]; G89.4 Chronic pain syndrome; F20.9 Schizophrenia, unspecified; E05.90 Thyrotoxicosis, unspecified without thyrotoxic crisis or storm; F41.9 Anxiety disorder, unspecified; F31.9 Bipolar disorder, unspecified; R56.9 Unspecified convulsions; E05.00 Thyrotoxicosis with diffuse goiter without thyrotoxic crisis or storm; K21.9 Gastro-esophageal reflux disease without esophagitis; I11.9 Hypertensive heart disease without heart failure; Z88.0 Allergy status to penicillin; Z91.010 Allergy to peanuts; Z86.711 Personal history of pulmonary embolism; Z86.718 Personal history of other venous thrombosis and embolism; Z79.899 Other long term (current) drug therapy; Z82.49 Family history of ischemic heart disease and other diseases of the circulatory system
CPT/HCPCS: 36415; 71045; 80048; 80307; 81001; 81025; 82550; 82553; 82962; 84439; 84443; 84484; 85025; 85610; 85730; 93005; 93010; 93306; 93970; 99285; J2270; J2405; J7030

== ENCOUNTER 2017-08-30 18:46 | Emergency (ER) | payer SELFPAY ==
[2017-08-30] MEDS ORDERED: ASPIRIN PO ONE (19:37)
[2017-08-30 20:16] LABS: Basophils # (Auto) 0.1 K/mm3 (0.0-0.1); Basophils % (Auto) 1.2 % (0.0-1.8); Eosinophils # (Auto) 0.2 K/mm3 (0.0-0.4); Hematocrit 34.7 % (30.3-42.9); Lymphocytes # (Auto) 2.8 K/mm3 (1.2-5.4); Lymphocytes % (Auto) 35.7 % (13.4-35.0); Mean Corpuscular HGB Conc 32 % (30-34); Mean Corpuscular Volume 73 fl (79-97); Monocytes # (Auto) 0.8 K/mm3 (0.0-0.8); Monocytes % (Auto) 10.9 % (0.0-7.3); Platelet Count 456 K/mm3 (140-440); Red Blood Count 4.76 M/mm3 (3.65-5.03); Red Cell Distribution Width 17.8 % (13.2-15.2)
[2017-08-30 20:24] LABS: Mean Corpuscular Hemoglobin 23 pg (28-32)
[2017-08-30 20:39] LABS: BUN/Creatinine Ratio 17; Blood Urea Nitrogen 10 mg/dL (7-17); Calcium 9.2 mg/dL (8.4-10.2); Hemolysis Index 0
[2017-08-30] MEDS ORDERED: COUMADIN PO ONE (23:08)
--- NOTE | 2017-08-30 23:08 | Emergency Department Report ---
ED Psych HPI - General Chief Complaint: Medical Clearance Stated Complaint: BLOOD CLOT IN THE HEART Time Seen by Provider: 08/30/17 22:05 Source: patient Mode of arrival: Ambulatory - History of Present Illness Initial Comments: Patient was diagnosed with a thrombus in her thoracic aorta 2-3 wks ago. She was admitted and medically cleared in the hospital earlier this week. Patient was sent to [facility] for psychiatric treatment. They thought she had not been medically cleared. So, they sent her back to [facility] ER to be medically clear. Patient has had no change in her symptoms since she left [facility]. Denies new chest pain or shortness of breath. Patient is currently on a 1013 for psychosis. - Related Data Previous Rx's Medication Instructions Recorded Last Taken Type Quetiapine Fumarate [SEROquel XR] 300 mg PO QHS #20 tab.er.24h 11/07/16 Rx ALPRAZolam [Xanax TAB] 0.25 mg PO BID PRN #60 tablet 05/26/17 Unknown Rx Pregabalin [Lyrica] 100 mg PO QAM #30 capsule 05/26/17 Unknown Rx Acetaminophen [Acetaminophen TAB] 650 mg PO Q4H PRN #30 tablet 08/24/17 Unknown Rx Methimazole [Tapazole] 10 mg PO Q8HR #90 tablet 08/24/17 Unknown Rx Pantoprazole [Protonix TAB] 40 mg PO BID #60 tablet 08/24/17 Unknown Rx Propranolol LA [Inderal LA] 60 mg PO Q12HR #60 capsule 08/24/17 Unknown Rx Warfarin [Coumadin] 5 mg PO DAILY@1700 #30 tablet 08/24/17 Unknown Rx Allergies Allergy/AdvReac Type Severity Reaction Status Date / Time garlic Allergy Unknown Verified 06/23/17 16:49 ibuprofen [From Motrin] Allergy Unknown Verified 06/23/17 16:49 peanut oil Allergy Unknown Verified 06/23/17 16:49 Penicillins Allergy Unknown Verified 06/23/17 16:49 ED Review of Systems ROS: Stated complaint: BLOOD CLOT IN THE HEART Other details as noted in HPI Comment: All other systems reviewed and negative Psychiatric: auditory hallucinations, visual hallucinations ED Past Medical Hx - Past Medical History Previous Medical History?: Yes Hx Hypertension: Yes Hx Heart Attack/AMI: No (normal stress 10-31-16, normal perfusion scan May 2017 ) Hx Deep Vein Thrombosis: Yes (previous treatment Eliquis, recent and current treatment with warfarin) Hx Pulmonary Embolism: Yes Hx GERD: Yes Hx Sickle Cell Disease: No Hx Seizures: Yes Hx Psychiatric Treatment: Yes (anxiety) Hx Tuberculosis: No Additional medical history: pericarditis, pt states hyperthyroidism, thyroid storm, PE x2, (R lung 05/2016, L lung 01/2017--on Eliquis), R leg DVT 03/2017, Graves Disease, heart murmur - Surgical History Past Surgical History?: Yes Additional Surgical History: Left arm surgery 02/2017 - Social History Smoking Status: Never Smoker Substance Use Type: None - Medications Home Medications: Home Medications Medication Instructions Recorded Confirmed Last Taken Type Quetiapine Fumarate [SEROquel XR] 300 mg PO QHS #20 tab.er.24h 11/07/1605/23/17 Rx ALPRAZolam [Xanax TAB] 0.25 mg PO BID PRN #60 tablet 05/26/17 08/30/17 Unknown Rx Pregabalin [Lyrica] 100 mg PO QAM #30 capsule 05/26/17 08/30/17 Unknown Rx Acetaminophen [Acetaminophen TAB] 650 mg PO Q4H PRN #30 tablet 08/24/17 Unknown Rx Methimazole [Tapazole] 10 mg PO Q8HR #90 tablet 08/24/17 08/30/17 Unknown Rx Pantoprazole [Protonix TAB] 40 mg PO BID #60 tablet 08/24/17 08/30/17 Unknown Rx Propranolol LA [Inderal LA] 60 mg PO Q12HR #60 capsule 08/24/17 08/30/17 Unknown Rx Warfarin [Coumadin] 5 mg PO DAILY@1700 #30 tablet 08/24/17 08/30/17 Unknown Rx ED Physical Exam - General Limitations: No Limitations General appearance: alert, in no apparent distress - Head Head exam: Present: atraumatic, normocephalic - Eye Eye exam: Present: normal appearance - ENT ENT exam: Present: mucous membranes moist - Neck Neck exam: Present: normal inspection - Respiratory Respiratory exam: Present: normal lung sounds bilaterally. Absent: respiratory distress - Cardiovascular Cardiovascular Exam: Present: regular rate, normal rhythm. Absent: systolic murmur, diastolic murmur, rubs, gallop - GI/Abdominal GI/Abdominal exam: Present: soft, normal bowel sounds. Absent: tenderness - Extremities Exam Extremities exam: Present: normal inspection - Back Exam Back exam: Present: normal inspection - Neurological Exam Neurological exam: Present: alert, oriented X3 - Psychiatric Psychiatric exam: Present: normal affect, normal mood - Skin Skin exam: Present: warm, dry, intact, normal color. Absent: rash ED Course Vital Signs 08/30/17 19:25 Temperature 98.7 F Pulse Rate 84 Respiratory 18 Rate Blood Pressure 129/83 O2 Sat by Pulse 99 Oximetry ED Medical Decision Making - Lab Data Result diagrams: 08/30/17 19:56 08/30/17 19:56 - EKG Data -: EKG Interpreted by Me EKG shows normal: sinus rhythm, axis, intervals, QRS complexes, ST-T waves Rate: normal - EKG Data When compared to previous EKG there are: no significant change Interpretation: no acute changes - Medical Decision Making 37-year-old female with past medical history of thoracic aorta thrombus currently on Coumadin, anxiety that presents to the ER for medical clearance. Vital signs are stable. Patient is well-appearing. She has no new somatic complaints. Lab work and EKG are unremarkable. INR is 1.68. Her INR when she left today was 1.74. It is continue to trend up. Since she was not discharged on heparin/eliquis, I will not start them now. Pt will continue to take her coumadin to get her level therapeutic. Patient is medically cleared to be sent back to [facility] for psychiatric management. The patient will remain on a 1013 while in the ER. - Differential Diagnosis aortic thrombus, psychosis Critical care attestation.: If time is entered above; I have spent that time in minutes in the direct care of this critically ill patient, excluding procedure time. ED Disposition Clinical Impression: Chest pain, Aortic mural thrombus, Psychosis Disposition: [id number]/TX-65 PSY HOSP/PSY UNIT Is pt being admited?: No Does the pt Need Aspirin: No Condition: Stable Instructions: Chest Pain (ED) Referrals: PRIMARY CARE, [Primary Care Provider] - 3-5 Days
[2017-08-30 23:52] LABS: INR 1.68 (0.87-1.13)
[2017-08-31] MEDS: TAPAZOLE PO SCH ×4 (01:04→22:40)
[2017-08-31] MEDS: INDERAL LA PO SCH ×3 (01:04→22:40)
[2017-08-31] MEDS: XANAX PO PRN ×2 (01:05→22:41)
[2017-08-31] MEDS: PROTONIX PO SCH ×3 (02:17→22:40)
[2017-08-31] MEDS ORDERED: LYRICA PO SCH (10:00)
[2017-08-31] MEDS: LYRICA PO SCH ×2 (10:42)
--- NOTE | 2017-08-31 18:34 | History and Physical Report ---
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 Pt seen and evaluated in ED and found to have psychosis. Pt denies fever, chills, CP, Palpitations, NVD, Syncope, abdominal pain. No reported nursing events. Pt medically optimized and cleared for discharge. No active medical issues at this time. Past History Past Medical History: DVT, GERD, hypertension, pulmonary embolism, seizures, other (Pericarditis, Graves Disease, Bipolar Disorder) Past Surgical History: Other (left arm surgery.) Social history: single Family history: no significant family history (reviewed) Medications and Allergies Allergies Allergy/AdvReac Type Severity Reaction Status Date / Time garlic Allergy Unknown Verified 06/23/17 16:49 ibuprofen [From Motrin] Allergy Unknown Verified 06/23/17 16:49 peanut oil Allergy Unknown Verified 06/23/17 16:49 Penicillins Allergy Unknown Verified 06/23/17 16:49 Home Medications Medication Instructions Recorded Confirmed Last Taken Type Quetiapine Fumarate [SEROquel XR] 300 mg PO QHS #20 tab.er.24h 11/07/1605/23/17 Rx ALPRAZolam [Xanax TAB] 0.25 mg PO BID PRN #60 tablet 05/26/17 08/30/17 Unknown Rx Pregabalin [Lyrica] 100 mg PO QAM #30 capsule 05/26/17 08/30/17 Unknown Rx Acetaminophen [Acetaminophen TAB] 650 mg PO Q4H PRN #30 tablet 08/24/17 Unknown Rx Methimazole [Tapazole] 10 mg PO Q8HR #90 tablet 08/24/17 08/30/17 Unknown Rx Pantoprazole [Protonix TAB] 40 mg PO BID #60 tablet 08/24/17 08/30/17 Unknown Rx Propranolol LA [Inderal LA] 60 mg PO Q12HR #60 capsule 08/24/17 08/30/17 Unknown Rx Warfarin [Coumadin] 5 mg PO DAILY@1700 #30 tablet 08/24/17 08/30/17 Unknown Rx Active Meds: Active Medications Acetaminophen (Tylenol) 650 mg PO Q4H PRN PRN Reason: Pain MILD(1-3)/Fever >100.5/OSEGUERA Alprazolam (Xanax) 0.25 mg PO BID PRN PRN Reason: Anxiety Last Admin: 08/31/17 01:05 Dose: 0.25 mg Methimazole (Tapazole) 10 mg PO Q8HR [facility] Last Admin: 08/31/17 16:43 Dose: 10 mg Pantoprazole Sodium (Protonix) 40 mg PO BID [facility] Last Admin: 08/31/17 10:42 Dose: 40 mg Pregabalin (Lyrica) 25 mg PO QAM [facility] Last Admin: 08/31/17 10:42 Dose: 25 mg Pregabalin (Lyrica) 75 mg PO QAM [facility] Last Admin: 08/31/17 10:42 Dose: 75 mg Propranolol HCl (Inderal La) 60 mg PO Q12HR [facility] Last Admin: 08/31/17 10:42 Dose: 60 mg Review of Systems Constitutional: no weight loss, no weight gain, no fever, no chills Ears, nose, mouth and throat: no ear pain, no ear discharge, no tinnitis, no decreased hearing, no nose pain, no nasal congestion Breasts: no change in shape, no swelling, no mass Cardiovascular: no chest pain, no orthopnea, no palpitations, no rapid/ irregular heart beat, no edema, no syncope, no shortness of breath Respiratory: no cough, no cough with sputum, no excessive sputum, no hemoptysis , no shortness of breath Gastrointestinal: no abdominal pain, no nausea, no vomiting, no diarrhea, no constipation, no change in bowel habits Genitourinary Female: no pelvic pain, no flank pain, no menorrhagia, no dysuria Rectal: no pain, no incontinence, no bleeding Musculoskeletal: no neck stiffness, no neck pain, no shooting arm pain, no arm numbness/tingling, no low back pain Integumentary: no rash, no pruritis, no redness, no sores, no wounds Neurological: no paralysis, no weakness, no parathesias, no numbness, no tingling, no seizures, no syncope Psychiatric: anxiety, sleep disturbances, no memory loss, no change in sleep habits Endocrine: no cold intolerance, no heat intolerance, no polyphagia, no excessive thirst, no polydipsia, no polyuria, no excessive sweating, no weight change Hematologic/Lymphatic: no easy bruising, no easy bleeding, no lymphadenopathy, no lymphedema Allergic/Immunologic: no urticaria, no allergic rhinitis, no wheezing, no persistent infections, no anaphylaxis, no angioedema Exam - Constitutional Vitals: Temp Pulse Resp BP Pulse Ox 99.6 F 92 H 18 108/67 98 08/31/17 10:39 08/31/17 10:42 08/31/17 14:00 08/31/17 10:42 08/31/17 10:39 General appearance: Present: obese - EENT Eyes: Present: PERRL ENT: hearing intact, clear oral mucosa - Neck Neck: Present: supple, normal ROM - Respiratory Respiratory effort: normal Respiratory: bilateral: CTA - Cardiovascular Heart Sounds: Present: S1 & S2. Absent: rub, click - Extremities Extremities: pulses symmetrical, No edema Peripheral Pulses: within normal limits - Abdominal General gastrointestinal: Present: soft, non-tender, non-distended, normal bowel sounds Female genitourinary: Present: normal - Integumentary Integumentary: Present: clear, warm, dry - Musculoskeletal Musculoskeletal: gait normal, strength equal bilaterally - Psychiatric Psychiatric: appropriate mood/affect, intact judgment & insight - Neurologic Neurologic: CNII-XII intact, moves all extremities Results - Labs CBC & Chem 7: 08/30/17 19:56 08/30/17 19:56 Labs: Abnormal lab results 08/30/17 08/30/17 08/30/17 Range/Units 19:56 19:56 23:20 MCV 73 L (79-97) fl MCH 23 L (28-32) pg RDW 17.8 H (13.2-15.2) % Plt Count 456 H (140-440) K/mm3 Lymph % (Auto) 35.7 H (13.4-35.0) % [place] % (Auto) 10.9 H (0.0-7.3) % PT 20.8 H (12.2-14.9) Sec. INR 1.68 H (0.87-1.13) Creatinine 0.6 L (0.7-1.2) mg/dL Glucose 129 H (65-100) mg/dL Assessment and Plan - Patient Problems (1) Psychosis Current Visit: Yes Status: Acute Plan to address problem: Discharge to inpatient psychiatry. Pt medically optimized. No active medical issues. (2) Abnormality of thoracic aorta Current Visit: Yes Status: Acute Plan to address problem: Chronic, continue current therapy, repeat CT Chest in 6 months.
[2017-08-31] MEDS: ELIQUIS PO SCH (23:23)
[2017-08-31] MEDS: TYLENOL PO PRN (23:23)
[2017-09-01] MEDS ORDERED: NORCO 5/325 PO ONE (05:25)
[2017-09-01] MEDS: TAPAZOLE PO SCH ×3 (06:18→21:37)
[2017-09-01] MEDS: ELIQUIS PO SCH ×2 (10:28→21:36)
[2017-09-01] MEDS: INDERAL LA PO SCH ×2 (10:29→21:37)
[2017-09-01] MEDS: PROTONIX PO SCH ×2 (10:29→21:37)
[2017-09-01] MEDS: LYRICA PO SCH ×2 (10:29)
[2017-09-01] MEDS: TYLENOL PO PRN ×2 (10:52→16:46)
[2017-09-01] MEDS: XANAX PO PRN (10:52)
[2017-09-02] MEDS: TAPAZOLE PO SCH ×3 (06:27→22:49)
[2017-09-02] MEDS: INDERAL LA PO SCH ×2 (10:39→22:49)
[2017-09-02] MEDS: ELIQUIS PO SCH ×2 (10:39→22:50)
[2017-09-02] MEDS: LYRICA PO SCH ×2 (10:39)
[2017-09-02] MEDS: PROTONIX PO SCH ×2 (10:40→22:50)
[2017-09-02] MEDS: TYLENOL PO PRN (10:40)
[2017-09-02] MEDS: XANAX PO PRN ×2 (10:41→22:51)
--- NOTE | 2017-09-02 13:56 | Consultation ---
History of Present Illness - Reason for Consult Consult date: 09/02/17 Reason for consult: 1013 - Chief Complaint Chief complaint: "I still hear the voices." - History of Present Psychiatric Illness 37-year-old AA female presents to the emergency department after being sent by [facility]. She was transferred from the medical floor to [facility] on 08/30/2017. There was a concern that she was not medically stable for the facility. She has a history of HTN, Graves Disease, Seizure Disorder, Anxiety, Bipolar Disorder, Pericarditis, GERD, PE/DVT on therapeutic anticoagulation, and thoracic Aorta Thrombus/Filling defect. The aortic thrombus/filling defect is reported to be chronic and unchanged since previous admission. Today the patient is calm and cooperative during the assessment. She stated being depressed and experiencing voices telling her to kill herself. She states that has not changed. She reports Seroquel is helpful and wants it resumed at 400mg hs. She reports poor sleep. She denies recreational drug use and alcohol consumption (etoh). Medications and Allergies Allergies Allergy/AdvReac Type Severity Reaction Status Date / Time garlic Allergy Unknown Verified 06/23/17 16:49 ibuprofen [From Motrin] Allergy Unknown Verified 06/23/17 16:49 peanut oil Allergy Unknown Verified 06/23/17 16:49 Penicillins Allergy Unknown Verified 06/23/17 16:49 Home Medications Medication Instructions Recorded Confirmed Last Taken Type Quetiapine Fumarate [SEROquel XR] 300 mg PO QHS #20 tab.er.24h 11/07/1605/23/17 Rx ALPRAZolam [Xanax TAB] 0.25 mg PO BID PRN #60 tablet 05/26/17 08/30/17 Unknown Rx Pregabalin [Lyrica] 100 mg PO QAM #30 capsule 05/26/17 08/30/17 Unknown Rx Acetaminophen [Acetaminophen TAB] 650 mg PO Q4H PRN #30 tablet 08/24/17 Unknown Rx Methimazole [Tapazole] 10 mg PO Q8HR #90 tablet 08/24/17 08/30/17 Unknown Rx Pantoprazole [Protonix TAB] 40 mg PO BID #60 tablet 08/24/17 08/30/17 Unknown Rx Propranolol LA [Inderal LA] 60 mg PO Q12HR #60 capsule 08/24/17 08/30/17 Unknown Rx Warfarin [Coumadin] 5 mg PO DAILY@1700 #30 tablet 08/24/17 08/30/17 Unknown Rx Active Meds: Active Medications Acetaminophen (Tylenol) 650 mg PO Q4H PRN PRN Reason: Pain MILD(1-3)/Fever >100.5/OSEGUERA Last Admin: 09/02/17 10:40 Dose: 650 mg Alprazolam (Xanax) 0.25 mg PO BID PRN PRN Reason: Anxiety Last Admin: 09/02/17 10:41 Dose: 0.25 mg Apixaban (Eliquis) 5 mg PO Q12HR [facility]; Protocol Last Admin: 09/02/17 10:39 Dose: 5 mg Methimazole (Tapazole) 10 mg PO Q8HR [facility] Last Admin: 09/02/17 06:27 Dose: 10 mg Pantoprazole Sodium (Protonix) 40 mg PO BID [facility] Last Admin: 09/02/17 10:40 Dose: 40 mg Pregabalin (Lyrica) 25 mg PO QAM [facility] Last Admin: 09/02/17 10:39 Dose: 25 mg Pregabalin (Lyrica) 75 mg PO QAM [facility] Last Admin: 09/02/17 10:39 Dose: 75 mg Propranolol HCl (Inderal La) 60 mg PO Q12HR [facility] Last Admin: 09/02/17 10:39 Dose: 60 mg Quetiapine Fumarate (Seroquel) 400 mg PO [facility] Past psychiatric history - past Psychiatric treatment and history Psych: Psychosis psychiatric treatment history: She stated sh a previous suicide attempt in the past. She stated that she takes Seroquel for Bipolar DO. - Social History Social history: other (homeless) Mental Status Exam - Vital signs Last Vital Signs Temp 98.6 F 09/02/17 10:00 Pulse 91 H 09/02/17 10:00 Resp 20 09/02/17 10:00 BP 116/71 09/02/17 10:00 Pulse Ox 97 09/02/17 10:00 - Exam Narrative exam: MSE: Appearance: calm, cooperative Behavior: regular eye contact Speech: regular rate and tone Mood: "depressed" Affect: congruent Thought Process: circumstantial Thought Content: reports command AH to harm herself Motor Activity: sitting up in bed Cognition: A/O x 3 Insight: variable Judgment: poor Results Result Diagrams: 08/30/17 19:56 08/30/17 19:56 All other labs normal. Assessment and Plan Assessment and plan: Impression: Unspecified Mood DO with psy features. Today the patient is calm and cooperative during the assessment but continues to complain of command AH to harm herself. She has been medically cleared by the ER physician. DDx: Bipolar DO, R/O MDD with psychosis Recommendation/Plan: Continue 1013 with placement to inpatient psy services. Resume Seroquel 400mg PO HS for mood/psychosis. Discussed possible metabolic side effects of Seroquel with patient.
[2017-09-03] MEDS: INDERAL LA PO SCH ×2 (09:58→23:12)
[2017-09-03] MEDS: TAPAZOLE PO SCH ×3 (09:58→23:11)
[2017-09-03] MEDS: ELIQUIS PO SCH ×2 (10:02→23:07)
[2017-09-03] MEDS: TYLENOL PO PRN (10:03)
[2017-09-03] MEDS: PROTONIX PO SCH ×2 (10:03→23:11)
[2017-09-03] MEDS: XANAX PO PRN (10:03)
[2017-09-03] MEDS: LYRICA PO SCH ×2 (10:20→10:21)
--- NOTE | 2017-09-03 19:07 | Progress Note ---
Subjective - Reason for Consult Consult date: 09/03/17 Reason for consult: follow up - Chief Complaint Chief complaint: "I am still suicidal" 37-year-old AA female presents to the emergency department after being sent by [facility]. She was transferred from the medical floor to [facility] on 08/30/2017. There was a concern that she was not medically stable for the facility. She has a history of HTN, Graves Disease, Seizure Disorder, Anxiety, Bipolar Disorder, Pericarditis, GERD, PE/DVT on therapeutic anticoagulation, and thoracic Aorta Thrombus/Filling defect. The aortic thrombus/filling defect is reported to be chronic and unchanged since previous admission. Today the patient is calm and cooperative during the assessment. She stated being depressed and experiencing voices telling her to kill herself. She states that has not changed. She reports the seroquel is helpful for reducing the intensity of the voices and for sleep. Mental Status Exam - Vital signs Last Vital Signs Temp 97.3 F L 09/03/17 10:00 Pulse 92 H 09/03/17 10:00 Resp 12 09/03/17 10:00 BP 114/73 09/03/17 10:00 Pulse Ox 100 09/03/17 10:00 - Exam Narrative exam: MSE: Appearance: calm, cooperative Behavior: regular eye contact Speech: regular rate and tone Mood: "depressed" Affect: congruent Thought Process: circumstantial Thought Content: reports command AH to harm herself Motor Activity: sitting up in bed Cognition: A/O x 3 Insight: variable Judgment: poor Assessment and Plan Impression: Unspecified Mood DO with psy features. Today the patient is calm and cooperative during the assessment but continues to complain of command AH to harm herself. She was medically cleared when she left the hospital the first time and again in the ER. DDx: Bipolar DO, R/O MDD with psychosis Recommendation/Plan: Continue 1013 with placement to inpatient psy services. Continue Seroquel 400mg PO HS for mood/psychosis. Discussed possible metabolic side effects of Seroquel with patient.
[2017-09-03] MEDS ORDERED: NORCO 5/325 PO ONE (20:30)
[2017-09-04] MEDS: TAPAZOLE PO SCH ×3 (09:15→22:06)
--- NOTE | 2017-09-04 10:45 | Progress Note ---
Subjective - Reason for Consult Consult date: 09/04/17 Reason for consult: Psychiatry Follow-up - Chief Complaint Chief complaint: "Hello" 37-year-old AA female presents to the emergency department after being sent by [facility]. She was transferred from the medical floor to [facility] on 08/30/2017. There was a concern that she was not medically stable for the facility. She has a history of HTN, Graves Disease, Seizure Disorder, Anxiety, Bipolar Disorder, Pericarditis, GERD, PE/DVT on therapeutic anticoagulation, and thoracic Aorta Thrombus/Filling defect. The aortic thrombus/filling defect is reported to be chronic and unchanged since previous admission. Today the patient is calm and cooperative during the assessment. She continues to state that she is suicidal and experiencing AH's. She stated that the oices are telling her to kill herself. She stated that she want "all this to be over. " She would not elaborate about what she meant by "all this to be over." She denies HI's and VH's. She denies any side effects of her medications. Mental Status Exam - Vital signs Last Vital Signs Temp 98.8 F 09/03/17 21:51 Pulse 89 09/03/17 23:12 Resp 18 09/03/17 21:51 BP 105/65 09/03/17 23:12 Pulse Ox 98 09/03/17 21:51 - Exam Narrative exam: MSE: Appearance: calm, cooperative Behavior: regular eye contact Speech: regular rate and tone Mood: "okay" Affect: flat Thought Process: circumstantial Thought Content: denies HI's and VH's, delusional Motor Activity: sitting up in bed Cognition: A/O x 3 Insight: variable Judgment: variable Assessment and Plan Impression: Unspecified Mood DO with psy features vs Schizophrenia (somatic delusions). Today the patient is calm and cooperative during the assessment. She continues to endorse SI's. DDx: Bipolar DO, R/O MDD with psychosis Recommendation/Plan: Continue 1013 with placement to inpatient psy services. Continue Seroquel to 400 mg PO HS for mood/psychosis. Discussed possible metabolic side effects of Seroquel with patient.
[2017-09-04] MEDS: PROTONIX PO SCH ×2 (12:15→22:05)
[2017-09-04] MEDS: INDERAL LA PO SCH ×2 (12:15→22:05)
[2017-09-04] MEDS: ELIQUIS PO SCH ×2 (12:15→22:05)
[2017-09-04] MEDS: TYLENOL PO PRN (12:16)
[2017-09-04] MEDS: XANAX PO PRN (12:17)
[2017-09-04] MEDS: LYRICA PO SCH ×2 (12:36)
--- NOTE | 2017-09-05 10:39 | Progress Note ---
Subjective - Reason for Consult Consult date: 09/05/17 Reason for consult: Psychiatry Follow-up - Chief Complaint Chief complaint: "The voices are awful during the day" 37-year-old AA female presents to the emergency department after being sent by [facility]. She was transferred from the medical floor to [facility] on 08/30/2017. There was a concern that she was not medically stable for the facility. She has a history of HTN, Graves Disease, Seizure Disorder, Anxiety, Bipolar Disorder, Pericarditis, GERD, PE/DVT on therapeutic anticoagulation, and thoracic Aorta Thrombus/Filling defect. The aortic thrombus/filling defect is reported to be chronic and unchanged since previous admission. Today the patient is calm and cooperative during the assessment. She stated that the voices are "awful" during the day. She stated taking Seroquel during the day without feeling lethargic in the past. She stated that she is sleeping well at night because the voices are "minimal." She continue to endorse SI's because the voices are telling her to kill herself. She denies HI's and VH's. She denies any side effects of her medications. Mental Status Exam - Vital signs Last Vital Signs Temp 98.6 F 09/04/17 22:00 Pulse 90 09/04/17 22:00 Resp 18 09/05/17 04:00 BP 105/67 09/04/17 22:00 Pulse Ox 98 09/05/17 04:00 - Exam Narrative exam: MSE: Appearance: calm, cooperative Behavior: regular eye contact Speech: regular rate and tone Mood: "okay" Affect: flat Thought Process: circumstantial Thought Content: denies HI's and VH's, delusional Motor Activity: sitting up in bed Cognition: A/O x 3 Insight: variable Judgment: variable Assessment and Plan Impression: Unspecified Mood DO with psy features vs Schizophrenia (somatic delusions). Today the patient is calm and cooperative during the assessment. She continues to endorse SI's. DDx: Bipolar DO, R/O MDD with psychosis Recommendation/Plan: Continue 1013 with placement to inpatient psy services. Continue Seroquel to 400 mg PO HS for mood/psychosis and start Seroquel 100 mg PO daily for psychosis/mood. Discussed possible metabolic side effects of Seroquel with patient. Assess patient in 24 hours for drowsiness.
[2017-09-05] MEDS: LYRICA PO SCH ×2 (13:06)
[2017-09-05] MEDS: ELIQUIS PO SCH ×2 (13:06→22:26)
[2017-09-05] MEDS: INDERAL LA PO SCH ×2 (13:06→22:26)
[2017-09-05] MEDS: PROTONIX PO SCH ×2 (13:07→22:26)
[2017-09-05] MEDS: TAPAZOLE PO SCH ×2 (13:58→22:26)
[2017-09-06] MEDS: LYRICA PO SCH ×2 (11:10)
[2017-09-06] MEDS: PROTONIX PO SCH ×2 (11:10→22:14)
[2017-09-06] MEDS: INDERAL LA PO SCH ×2 (11:52→22:15)
[2017-09-06] MEDS: ELIQUIS PO SCH ×2 (12:19→22:14)
--- NOTE | 2017-09-06 13:48 | Progress Note ---
Subjective - Reason for Consult Consult date: 09/06/17 Reason for consult: Psychiatric Follow-up Evaluation - Chief Complaint Chief complaint: "Suicidal" Patient is a 37-year-old AA female presents to the emergency department after being sent by [facility]. She was transferred from the medical floor to [facility] on 08/30/2017. There was a concern that she was not medically stable for the facility. 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 The aortic thrombus/filling defect is reported to be chronic and unchanged since previous admission. Today the patient is cooperative but anxious during the assessment. She states " I'm hearing voices telling me to harm and kill myself. As a result, it makes me suicidal." Throughout the night patient states that she is unable to sleep secondary to AH's. Per patient she hears constant voices throughout the day. She reports decrease appetite although she has asked/received several snacks throughout the day. She continues to endorse depressed mood and SI's secondary to auditory hallucinations. She denies HI's, VH's, and delusions. She reports medication compliance. There are no indications of any side effects to her medications. Mental Status Exam - Vital signs Last Vital Signs Temp 98.4 F 09/06/17 10:00 Pulse 82 09/06/17 11:52 Resp 16 09/06/17 10:00 BP 119/72 09/06/17 11:52 Pulse Ox 99 09/06/17 10:00 - Exam Narrative exam: Mental Status Exam General Appearance: Causally Dressed-hospital gown Eye Contact: Intermittent Orientation: Alert and oriented x 4 ( person, place, time, and situation) Attitude/Behavior: Cooperative Sensorium: Distracted Psychomotor & Musculoskeletal Activity: Ambulatory Mood: "Suicidal." Depressed and anxious. Affect: Constricted Speech/Language: Regular rate and tone Thought Processes: Tangential, circumstantial Thought Content: Impoverished Perception: + Auditory hallucinations- " I'm hearing voices telling me to kill myself. " Concentration/Attention: Impaired Suicidal Ideations/Plan: + SI with plan to cut self with knife secondary to AH. Homicidal Ideations/Plan: Patient denies Insight: Variable Judgment: Variable Assessment and Plan Impression: Unspecified Mood DO with psychotic features vs Schizophrenia ( somatic delusions). Today the patient is anxious but cooperative during the assessment. She continues to endorse SI's with plan to cut self with knife secondary to AH- telling her to kill herself. She denies VH and HI. DDx: Bipolar DO, R/O MDD with psychosis Recommendation/Plan: 1. Continue 1013 with placement to inpatient psychiatric services. 2. Increase/change Seroquel to 600 mg PO HS for mood/psychosis. Discussed possible metabolic side effects of Seroquel with patient. Assess patient in 24 hours for drowsiness. 3. Will continue to monitor mood, psychosis, sleep, appetite, compliance, and side effects.
[2017-09-06] MEDS: TAPAZOLE PO SCH ×2 (16:00→22:13)
[2017-09-07] MEDS: ELIQUIS PO SCH ×2 (10:38→21:30)
[2017-09-07] MEDS: PROTONIX PO SCH ×2 (10:38→21:30)
[2017-09-07] MEDS: TYLENOL PO PRN (10:44)
[2017-09-07] MEDS: XANAX PO PRN (10:44)
[2017-09-07] MEDS: INDERAL LA PO SCH ×2 (10:52→21:30)
[2017-09-07] MEDS: LYRICA PO SCH ×2 (10:53)
--- NOTE | 2017-09-07 13:32 | Progress Note ---
Subjective - Reason for Consult Consult date: 09/07/17 Reason for consult: Psychiatry Follow-up - Chief Complaint Chief complaint: "i want to get better" Patient is a 37-year-old AA female presents to the emergency department after being sent by [facility]. She was transferred from the medical floor to [facility] on 08/30/2017. There was a concern that she was not medically stable for the facility. 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 The aortic thrombus/filling defect is reported to be chronic and unchanged since previous admission. Today the patient is calm and cooperative during the assessment. She continue to endorse SI's. She continues to endorse a depressed mood and SI's secondary to AH's. She is adamant that she want to get better "mentally." She denies HI's and VH's. She stated sleeping "okay" last night. She denies any side effects of her medications. Mental Status Exam - Vital signs Last Vital Signs Temp 98.3 F 09/07/17 10:22 Pulse 92 H 09/07/17 10:52 Resp 18 09/07/17 10:22 BP 97/67 09/07/17 10:52 Pulse Ox 99 09/07/17 10:22 - Exam Narrative exam: MSE: Appearance: calm, cooperative Behavior: regular eye contact Speech: regular rate and tone Mood: "okay" Affect: flat Thought Process: circumstantial Thought Content: denies HI's and VH's, delusional Motor Activity: sitting up in bed Cognition: A/O x 3 Insight: variable Judgment: variable Assessment and Plan Impression: Unspecified Mood DO with psy features vs Schizophrenia (somatic delusions). Today the patient is calm and cooperative during the assessment. She continues to endorse SI's. DDx: Bipolar DO, R/O MDD with psychosis Recommendation/Plan: Continue 1013 with placement to inpatient psy services. Continue Seroquel 600 mg PO HS for mood/psychosis. Discussed possible metabolic side effects of Seroquel with patient. Assess patient in 24 hours for drowsiness.
[2017-09-07] MEDS: TAPAZOLE PO SCH (21:30)
[2017-09-08] MEDS: TAPAZOLE PO SCH ×2 (06:03→22:31)
[2017-09-08] MEDS: TYLENOL PO PRN (07:46)
[2017-09-08] MEDS: XANAX PO PRN (07:46)
[2017-09-08] MEDS: INDERAL LA PO SCH ×2 (10:58→22:33)
[2017-09-08] MEDS: ELIQUIS PO SCH ×2 (10:58→22:32)
[2017-09-08] MEDS: PROTONIX PO SCH ×2 (11:00→22:32)
[2017-09-08] MEDS: LYRICA PO SCH ×2 (11:01)
--- NOTE | 2017-09-08 12:21 | Progress Note ---
Subjective - Reason for Consult Consult date: 09/08/17 Reason for consult: Psychiatry Follow-up - Chief Complaint Chief complaint: "It's the voices" Patient is a 37-year-old AA female presents to the emergency department after being sent by [facility]. She was transferred from the medical floor to [facility] on 08/30/2017. There was a concern that she was not medically stable for the facility. 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 The aortic thrombus/filling defect is reported to be chronic and unchanged since previous admission. Today the patient is calm and cooperative during the assessment. She continues to endorse a depressed mood and SI's secondary to AH's. She stated that the voices are loud in her ear mostly during the day. She stated that her sleep can be disturbed by the voices at night. She denies HI's and VH's. She denies any side effects of her medications. Mental Status Exam - Vital signs Last Vital Signs Temp 97.9 F 09/07/17 22:00 Pulse 102 H 09/08/17 10:58 Resp 18 09/07/17 22:00 BP 107/69 09/08/17 10:58 Pulse Ox 99 09/07/17 22:00 - Exam Narrative exam: MSE: Appearance: calm, cooperative Behavior: regular eye contact Speech: regular rate and tone Mood: "depressed" Affect: flat Thought Process: circumstantial Thought Content: denies HI's and VH's, delusional Motor Activity: sitting up in bed Cognition: A/O x 3 Insight: variable Judgment: variable Assessment and Plan Impression: Unspecified Mood DO with psy features vs Schizophrenia (somatic delusions). Today the patient is calm and cooperative during the assessment. She continues to endorse SI's. DDx: Bipolar DO, R/O MDD with psychosis, R/O Schizoaffective DO Recommendation/Plan: Continue 1013 with placement to inpatient psy services. Start Zyprexa 2.5 mg PO daily, Zyprexa 5 mg PO HS for mood/psychosis,a nd Trazodone 50 mg PO HS PRN for sleep. Discussed possible metabolic side effects of Zyprexa with patient. Discussed possible suicidality/medication induced kristyn with patient reference Trazodone.
[2017-09-08] MEDS: DESYREL PO PRN (22:32)
[2017-09-09] MEDS: TAPAZOLE PO SCH ×3 (07:00→22:16)
[2017-09-09] MEDS: INDERAL LA PO SCH ×2 (11:27→22:16)
[2017-09-09] MEDS: ELIQUIS PO SCH ×2 (11:27→22:16)
[2017-09-09] MEDS: PROTONIX PO SCH ×2 (11:29→22:16)
[2017-09-09] MEDS: LYRICA PO SCH ×2 (11:46)
[2017-09-09] MEDS: XANAX PO PRN (17:50)
[2017-09-09] MEDS: TYLENOL PO PRN (17:50)
[2017-09-10] MEDS: TAPAZOLE PO SCH ×3 (06:07→22:08)
[2017-09-10] MEDS: ELIQUIS PO SCH ×2 (10:29→22:08)
[2017-09-10] MEDS: INDERAL LA PO SCH ×2 (10:29→22:08)
[2017-09-10] MEDS: LYRICA PO SCH ×2 (10:30)
[2017-09-10] MEDS: PROTONIX PO SCH ×2 (10:36→22:08)
--- NOTE | 2017-09-10 11:34 | Progress Note ---
Subjective - Reason for Consult Consult date: 09/10/17 Reason for consult: Psychiatry Follow-up - Chief Complaint Chief complaint: "Esaulo" Patient is a 37-year-old AA female presents to the emergency department after being sent by [facility]. She was transferred from the medical floor to [facility] on 08/30/2017. There was a concern that she was not medically stable for the facility. 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 The aortic thrombus/filling defect is reported to be chronic and unchanged since previous admission. Today the patient is calm and cooperative during the assessment. She continues to endorse a depressed mood and SI's secondary to AH's. She would not confirm or deny that the voices are decreasing. She stated not sleeping "at all" last night. She stated that she would like to get more sleep. She denies HI's and VH' s. She denies any side effects of her medications. 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 Today the patient is calm and cooperative during the assessment. She continues to endorse SI's. DDx: Bipolar DO, R/O MDD with psychosis, R/O Schizoaffective DO Recommendation/Plan: Continue 1013 with placement to inpatient psy services. Increase the AM dose of Zyprexa to 5 mg PO and continue Zyprexa 5 mg PO HS for mood/psychosis. Increase Trazodone to 100 mg PO HS PRN for sleep. Discussed possible metabolic side effects of Zyprexa with patient. Discussed possible suicidality/medication induced kristyn with patient reference Trazodone.
[2017-09-10] MEDS: TYLENOL PO PRN (14:31)
[2017-09-10] MEDS: DESYREL PO PRN (22:08)
[2017-09-11] MEDS: TAPAZOLE PO SCH ×2 (09:05→22:44)
[2017-09-11] MEDS: ELIQUIS PO SCH ×2 (09:49→22:45)
[2017-09-11] MEDS: INDERAL LA PO SCH ×2 (09:49→23:15)
[2017-09-11] MEDS: PROTONIX PO SCH ×2 (09:53→23:16)
[2017-09-11] MEDS: TYLENOL PO PRN ×2 (09:54→22:45)
[2017-09-11] MEDS: XANAX PO PRN ×2 (09:55→23:00)
[2017-09-11] MEDS: LYRICA PO SCH ×2 (10:12→10:13)
--- NOTE | 2017-09-11 10:25 | Progress Note ---
Subjective - Reason for Consult Consult date: 09/11/17 Reason for consult: Psychiatry Follow-up - Chief Complaint Chief complaint: "Can I take Seroquel" Patient is a 37-year-old AA female presents to the emergency department after being sent by [facility]. She was transferred from the medical floor to [facility] on 08/30/2017. There was a concern that she was not medically stable for the facility. 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 The aortic thrombus/filling defect is reported to be chronic and unchanged since previous admission. Today the patient is calm and cooperative during the assessment. She continues to endorse a depressed mood and SI's secondary to AH's. She asked that her medication be changed back to Seroquel (100 mg PO AM and 400 mg PO HS). She stated that she was feeling better when taking that regimen. She stated that she haven't slept well in days and the voices are louder. She denies HI's and VH 's. She denies any side effects of her medications. 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 Today the patient is calm and cooperative during the assessment. She continues to endorse SI's. DDx: Bipolar DO, R/O MDD with psychosis, R/O Schizoaffective DO Recommendation/Plan: Continue 1013 with placement to inpatient psy services. D/ C Zyprexa. Start Seroquel 100 mg PO daily, Seroquel 400 mg PO HS for mood/ psychosis, and continue Trazodone 100 mg PO HS PRN for sleep. Discussed possible metabolic side effects of Seroquel. Discussed possible suicidality/ medication induced kristyn with patient reference Trazodone.
[2017-09-11] MEDS: DESYREL PO PRN (22:46)
[2017-09-12] MEDS: TYLENOL PO PRN (05:47)
[2017-09-12] MEDS: TAPAZOLE PO SCH (09:57)
[2017-09-12] MEDS: ELIQUIS PO SCH ×2 (09:57→23:27)
[2017-09-12] MEDS: INDERAL LA PO SCH ×2 (09:57→23:28)
[2017-09-12] MEDS: LYRICA PO SCH ×2 (09:58)
[2017-09-12] MEDS: PROTONIX PO SCH ×2 (09:58→23:28)
[2017-09-12] MEDS: XANAX PO PRN (09:58)
--- NOTE | 2017-09-12 10:26 | Progress Note ---
Subjective - Reason for Consult Consult date: 09/12/17 Reason for consult: Psychiatry Follow-up - Chief Complaint Chief complaint: "I rested last night" Patient is a 37-year-old AA female presents to the emergency department after being sent by [facility]. She was transferred from the medical floor to [facility] on 08/30/2017. There was a concern that she was not medically stable for the facility. 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 The aortic thrombus/filling defect is reported to be chronic and unchanged since previous admission. Today the patient is calm and cooperative during the assessment. She continues to endorse a depressed mood and SI's secondary to AH's. She stated that she "rested" last night. She stated that the the voices "decreased a little." She denies HI's and VH's. She denies any side effects of her medication. 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 Today the patient is calm and cooperative during the assessment. She continues to endorse SI's. DDx: Bipolar DO, R/O MDD with psychosis, R/O Schizoaffective DO Recommendation/Plan: Continue 1013 with placement to inpatient psy services. Continue Seroquel 100 mg PO daily, Seroquel 400 mg PO HS for mood/psychosis, and Trazodone 100 mg PO HS PRN for sleep. Discussed possible metabolic side effects of Seroquel. Discussed possible suicidality/medication induced kristyn with patient reference Trazodone.
[2017-09-13] MEDS: TAPAZOLE PO SCH ×5 (06:39→21:20)
[2017-09-13] MEDS: XANAX PO PRN (06:39)
[2017-09-13] MEDS: TYLENOL PO PRN (06:45)
[2017-09-13] MEDS: ELIQUIS PO SCH ×2 (10:16→22:20)
[2017-09-13] MEDS: PROTONIX PO SCH ×2 (10:16→22:21)
[2017-09-13] MEDS: INDERAL LA PO SCH ×2 (10:16→22:21)
[2017-09-13] MEDS: LYRICA PO SCH ×2 (11:25→11:26)
[2017-09-13] MEDS ORDERED: NORCO 5/325 ONE (14:48)
[2017-09-13] MEDS ORDERED: NORCO 5/325 PO ONE (14:53)
--- NOTE | 2017-09-13 15:32 | Progress Note ---
Subjective - Reason for Consult Consult date: 09/13/17 Reason for consult: Psychiatric Follow-up Evaluation - Chief Complaint Chief complaint: "I'm still hearing voices" Patient is a 37-year-old AA female presents to the emergency department after being sent by [facility]. She was transferred from the medical floor to [facility] on 08/30/2017. There was a concern that she was not medically stable for the facility. 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 The aortic thrombus/filling defect is reported to be chronic and unchanged since previous admission. Today the patient is anxious but cooperative during the assessment. She continues to endorse depressed mood and SI's secondary to AH's. She stated " I' m still hearing voices telling me to hurt myself with a knife." Patient reported that she is hearing and seeing (figures) both male and female. Although she continues to endorse suicidal ideations, auditory hallucinations, and visual hallucinations she verbalizes that her " symptoms are better controlled" with Seroquel. She reports good sleep with fair appetite. Patient is requesting Ensure to help improve appetite. She denies any side effects of her medication. She denies HI's and delusions. Mental Status Exam - Vital signs Last Vital Signs Temp 99 F 09/13/17 09:29 Pulse 94 H 09/13/17 09:29 Resp 20 09/13/17 09:29 BP 115/65 09/13/17 09:29 Pulse Ox 99 09/13/17 09:29 - Exam Narrative exam: Mental Status Exam General Appearance: Causally Dressed-hospital gown Eye Contact: Intermittent Orientation: Alert and oriented x 4 ( person, place, time, and situation) Attitude/Behavior: Cooperative Sensorium: Distracted Psychomotor & Musculoskeletal Activity: Ambulatory Mood: "Agitated" Depressed and anxious. Affect: Constricted Speech/Language: Regular rate and tone Thought Processes: Tangential, circumstantial Thought Content: Impoverished Perception: + Auditory hallucinations- " I'm hearing voices telling me to kill myself. " + Visual hallucinations of male/female voices. Concentration/Attention: Impaired Suicidal Ideations/Plan: + SI with plan to cut self with knife secondary to AH. 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 Today the patient is anxious but cooperative during the assessment. She continues to endorse SI's secondary to AH's. DDx: Bipolar DO, R/O MDD with psychosis, R/O Schizoaffective DO Recommendation/Plan: 1. Continue 1013 with placement to inpatient psychiatric services. 2. Continue Seroquel 100 mg PO daily, Seroquel 400 mg PO HS for mood/psychosis and Trazodone 100 mg PO HS PRN for sleep. Discussed possible metabolic side effects of Seroquel. Discussed possible suicidality/medication induced kristyn with patient reference Trazodone. 3. Will continue to monitor mood, psychosis, sleep, appetite, compliance, and side effects. 4. Please provide patient with 1 can of Ensure TID- supplement. Communication order written.
[2017-09-14] MEDS: TAPAZOLE PO SCH ×3 (06:25→22:24)
[2017-09-14] MEDS: XANAX PO PRN ×3 (06:25→20:29)
--- NOTE | 2017-09-14 10:46 | Progress Note ---
Subjective - Reason for Consult Consult date: 09/14/17 Reason for consult: Psychiatry Follow-up - Chief Complaint Chief complaint: "The voices" Patient is a 37-year-old AA female presents to the emergency department after being sent by [facility]. She was transferred from the medical floor to [facility] on 08/30/2017. There was a concern that she was not medically stable for the facility. 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 The aortic thrombus/filling defect is reported to be chronic and unchanged since previous admission. She continues to endorse depressed mood and SI's secondary to AH's. Today the patient is calm and cooperative during the assessment. She stated that the voices are not "as loud." She stated getting more sleep last night. She denies HI's and VH's. The patient is requesting Ensure to help improve appetite. She denies any side effects of her medication. 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 Today the patient is calm and cooperative during the assessment. She continues to endorse SI's. DDx: Bipolar DO, R/O MDD with psychosis, R/O Schizoaffective DO Recommendation/Plan: Continue 1013 with placement to inpatient psy services. Continue Seroquel 100 mg PO daily, Seroquel 400 mg PO HS for mood/psychosis, and Trazodone 100 mg PO HS PRN for sleep. Discussed possible metabolic side effects of Seroquel. Discussed possible suicidality/medication induced kristyn with patient reference Trazodone. A Dietitian consult was placed.
[2017-09-14] MEDS: ELIQUIS PO SCH ×2 (10:58→22:25)
[2017-09-14] MEDS: LYRICA PO SCH ×2 (10:58)
[2017-09-14] MEDS: PROTONIX PO SCH ×2 (10:58→22:25)
[2017-09-14] MEDS: INDERAL LA PO SCH ×2 (10:58→22:25)
[2017-09-14] MEDS: TYLENOL PO PRN (15:36)
[2017-09-14] MEDS: DESYREL PO PRN (22:29)
[2017-09-15] MEDS: TYLENOL PO PRN ×2 (04:54→16:50)
[2017-09-15] MEDS: XANAX PO PRN ×2 (04:54→16:50)
[2017-09-15] MEDS: TAPAZOLE PO SCH ×2 (06:18→21:54)
[2017-09-15] MEDS: INDERAL LA PO SCH ×2 (10:40→21:55)
[2017-09-15] MEDS: LYRICA PO SCH ×2 (10:40→11:40)
--- NOTE | 2017-09-15 11:02 | Progress Note ---
Subjective - Reason for Consult Consult date: 09/15/17 Reason for consult: Psychiatry Follow-up - Chief Complaint Chief complaint: "Esaulo" Patient is a 37-year-old AA female presents to the emergency department after being sent by [facility]. She was transferred from the medical floor to [facility] on 08/30/2017. There was a concern that she was not medically stable for the facility. 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 The aortic thrombus/filling defect is reported to be chronic and unchanged since previous admission. She continues to endorse depressed mood and SI's secondary to AH's. Today the patient is calm and cooperative during the assessment. She stated that the voices are "decreasing some." She feel that the voices are the main reason for her SI's. She stated rested last night. She denies HI's and VH's. The patient is requesting Ensure to help improve appetite. She denies any side effects of her medications. 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 Today the patient is calm and cooperative during the assessment. She continues to endorse SI's. DDx: Bipolar DO, R/O MDD with psychosis, R/O Schizoaffective DO Recommendation/Plan: Continue 1013 with placement to inpatient psy services. Continue Seroquel 100 mg PO daily, Seroquel 400 mg PO HS for mood/psychosis, and Trazodone 100 mg PO HS PRN for sleep. Discussed possible metabolic side effects of Seroquel. Discussed possible suicidality/medication induced kristyn with patient reference Trazodone. Pending Dietitian consult.
[2017-09-15] MEDS: PROTONIX PO SCH ×2 (11:40→21:55)
[2017-09-15] MEDS: ELIQUIS PO SCH ×2 (11:40→21:55)
[2017-09-15] MEDS: DESYREL PO PRN (21:55)
[2017-09-16] MEDS: TAPAZOLE PO SCH ×2 (05:54→22:19)
[2017-09-16] MEDS: PROTONIX PO SCH ×2 (10:49→21:50)
[2017-09-16] MEDS: LYRICA PO SCH ×2 (10:49)
[2017-09-16] MEDS: TYLENOL PO PRN (10:50)
[2017-09-16] MEDS: XANAX PO PRN (10:50)
[2017-09-16] MEDS: ELIQUIS PO SCH ×2 (11:06→22:20)
[2017-09-16] MEDS: INDERAL LA PO SCH ×2 (11:06→22:20)
--- NOTE | 2017-09-16 16:58 | Progress Note ---
Subjective - Reason for Consult Consult date: 09/16/17 Reason for consult: Psychiatric Follow-up Evaluation - Chief Complaint Chief complaint: "Disturbed" Patient is a 37-year-old AA female presents to the emergency department after being sent by [facility]. She was transferred from the medical floor to [facility] on 08/30/2017. There was a concern that she was not medically stable for the facility. 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 The aortic thrombus/filling defect is reported to be chronic and unchanged since previous admission. Today the patient is cooperative but anxious during the assessment. She states, " I am able to get some sleep at night but I'm still hearing voices telling me to kill myself." Also she endorses visual hallucinations of "ghosts" and paranoid thoughts. Patient SI's are secondary to AH's. She denies HI's. Medication compliance is reported. She denies any side effects of her medications. Mental Status Exam - Vital signs Last Vital Signs Temp 97.8 F 09/16/17 10:00 Pulse 89 09/16/17 10:00 Resp 18 09/16/17 10:00 BP 103/72 09/16/17 10:00 Pulse Ox 99 09/16/17 10:00 - Exam Narrative exam: Mental Status Exam General Appearance: Causally Dressed-hospital gown Eye Contact: Intermittent Orientation: Alert and oriented x 4 ( person, place, time, and situation) Attitude/Behavior: Cooperative Sensorium: Distracted Psychomotor & Musculoskeletal Activity: Ambulatory Mood: "Disturbed." Depressed and anxious. Affect: Constricted Speech/Language: Regular rate and tone Thought Processes: Tangential, circumstantial Thought Content: Impoverished Perception: + Auditory hallucinations- " I'm hearing voices telling me to kill myself. " + Visual hallucinations "ghosts." Concentration/Attention: Impaired Suicidal Ideations/Plan: + SI with plan to cut self with knife secondary to AH' s. Homicidal Ideations/Plan: Patient denies. 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 Today the patient is cooperative but anxious during the assessment. She continues to endorse SI's, A/VH's, and paranoid thoughts. She denies HI's. DDx: Bipolar DO, R/O MDD with psychosis, R/O Schizoaffective DO Recommendation/Plan: 1. Continue 1013 with placement to inpatient psychiatric services. 2. Increase Seroquel 200 mg PO daily, Seroquel 400 mg PO HS for mood/psychosis, and Trazodone 100 mg PO HS PRN for sleep. Discussed possible metabolic side effects of Seroquel. Discussed possible suicidality/medication induced kristyn with patient reference Trazodone. Pending Dietitian consult. 3. Will continue to monitor mood, psychosis, sleep, appetite, compliance, and side effects.
[2017-09-17] MEDS: TAPAZOLE PO SCH ×3 (06:25→22:11)
[2017-09-17] MEDS: LYRICA PO SCH ×2 (10:45)
[2017-09-17] MEDS: PROTONIX PO SCH ×2 (10:45→22:11)
[2017-09-17] MEDS: ELIQUIS PO SCH ×2 (10:45→22:11)
[2017-09-17] MEDS: INDERAL LA PO SCH (10:45)
[2017-09-17] MEDS: XANAX PO PRN (10:46)
[2017-09-17] MEDS: TYLENOL PO PRN ×2 (10:46→16:22)
[2017-09-18] MEDS: INDERAL LA PO SCH ×3 (00:03→22:13)
[2017-09-18] MEDS: XANAX PO PRN ×2 (06:05→21:18)
[2017-09-18] MEDS: TYLENOL PO PRN ×2 (06:05→21:18)
[2017-09-18] MEDS: LYRICA PO SCH ×2 (10:19)
[2017-09-18] MEDS: PROTONIX PO SCH ×2 (10:19→22:08)
[2017-09-18] MEDS: ELIQUIS PO SCH ×2 (10:19→22:06)
[2017-09-18] MEDS: TAPAZOLE PO SCH ×3 (10:19→22:06)
--- NOTE | 2017-09-18 13:53 | Progress Note ---
Subjective - Reason for Consult Consult date: 09/18/17 Reason for consult: Psychiatry Follow-up - Chief Complaint Chief complaint: "I want to get better" Patient is a 37-year-old AA female presents to the emergency department after being sent by [facility]. She was transferred from the medical floor to [facility] on 08/30/2017. There was a concern that she was not medically stable for the facility. 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 The aortic thrombus/filling defect is reported to be chronic and unchanged since previous admission. Today the patient is calm and cooperative during the assessment. She continue to state that she hear voices and feel suicidal. She would not confirm or deny a suicide plan. She denies HI's and VH's. She denies any side effecst of her medications. 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 Today the patient is calm and cooperative during the assessment. She continues to endorse SI's. DDx: Bipolar DO, R/O MDD with psychosis, R/O Schizoaffective DO Recommendation/Plan: Continue 1013 with placement to inpatient psy services. Continue Seroquel 200 mg PO daily, Seroquel 400 mg PO HS for mood/psychosis, and Trazodone 100 mg PO HS PRN for sleep. Discussed possible metabolic side effects of Seroquel. Discussed possible suicidality/medication induced kristyn with patient reference Trazodone.
[2017-09-18 19:05] LABS: INR 0.96 (0.87-1.13)
[2017-09-18 19:06] LABS: Partial Thromboplastin Time 25.8 Sec. (24.2-36.6)
[2017-09-19] MEDS: TYLENOL PO PRN ×3 (06:29→23:37)
[2017-09-19] MEDS: TAPAZOLE PO SCH ×3 (06:29→23:34)
[2017-09-19] MEDS: XANAX PO PRN ×3 (06:29→23:36)
[2017-09-19] MEDS: INDERAL LA PO SCH ×2 (10:01→23:35)
[2017-09-19] MEDS: ELIQUIS PO SCH ×2 (10:01→23:37)
[2017-09-19] MEDS: PROTONIX PO SCH ×2 (10:02→23:36)
[2017-09-19] MEDS: LYRICA PO SCH ×2 (10:03→10:06)
--- NOTE | 2017-09-19 13:09 | Progress Note ---
Subjective - Reason for Consult Consult date: 09/19/17 Reason for consult: Psychiatry Follow-up - Chief Complaint Chief complaint: "I want to get better" Patient is a 37-year-old AA female presents to the emergency department after being sent by [facility]. She was transferred from the medical floor to [facility] on 08/30/2017. There was a concern that she was not medically stable for the facility. 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 The aortic thrombus/filling defect is reported to be chronic and unchanged since previous admission. Today the patient is calm and cooperative during the assessment. She continue to state that she hear voices and feel suicidal. She stated that the voices are more doing the day. She denies HI's and VH's. She denies any side effects of her medications. 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 Today the patient is calm and cooperative during the assessment. She continues to endorse SI's. DDx: Bipolar DO, R/O MDD with psychosis, R/O Schizoaffective DO Recommendation/Plan: Continue 1013 with placement to inpatient psy services. Continue Seroquel 200 mg PO daily, Seroquel 400 mg PO HS for mood/psychosis, and Trazodone 100 mg PO HS PRN for sleep. Discussed possible metabolic side effects of Seroquel. Discussed possible suicidality/medication induced kristyn with patient reference Trazodone.
[2017-09-19 13:44] LABS: HCG Qualitative,Urine Negative (Negative)
[2017-09-19 13:44] LABS: Bacteria,Urine 1+ /HPF (Negative); Bilirubin,Urine NEG (Negative); Blood,Urine SM (Negative); Color,Urine Straw (Yellow); Mucus,Urine FEW /HPF; Protein,Urine <15 mg/dL mg/dL (Negative); Urobilinogen,Urine < 2.0 mg/dL (<2.0); WBC,Urine < 1.0 /HPF (0.0-6.0)
[2017-09-19 14:00] LABS: Basophils # (Auto) 0.2 K/mm3 (0.0-0.1); Basophils % (Auto) 1.8 % (0.0-1.8); Eosinophils # (Auto) 0.2 K/mm3 (0.0-0.4); Hematocrit 33.9 % (30.3-42.9); Hemoglobin 10.9 gm/dl (10.1-14.3); Lymphocytes % (Auto) 33.2 % (13.4-35.0); Mean Corpuscular HGB Conc 32 % (30-34); Mean Corpuscular Volume 71 fl (79-97); Monocytes # (Auto) 0.9 K/mm3 (0.0-0.8); Platelet Count 385 K/mm3 (140-440); Red Blood Count 4.77 M/mm3 (3.65-5.03); Red Cell Distribution Width 17.7 % (13.2-15.2)
[2017-09-19 14:03] LABS: Mean Corpuscular Hemoglobin 23 pg (28-32)
[2017-09-19 14:18] LABS: BUN/Creatinine Ratio 27; Blood Urea Nitrogen 16 mg/dL (7-17); Calcium 8.7 mg/dL (8.4-10.2); Hemolysis Index 13
--- NOTE | 2017-09-19 14:33 | XRay Report ---
ROUTINE CHEST, TWO VIEWS: HISTORY: Chest discomfort. The trachea, heart, mediastinal contour, lung avalos and bony thorax are unremarkable. IMPRESSION: Unremarkable chest x-ray.
--- NOTE | 2017-09-19 15:27 | Emergency Department Report ---
Blank Doc - Documentation Documentation: Patient is a 37-year-old [place] female who is here in the emergency department for suicidal ideations. Patient has a history of DVT and is on eliquis. Eliquis does not require labs for maintenance. Patient's has been medically cleared by emergency staff as well as the hospitalist staff. Patient is continued to have suicidal ideations and has not been cleared and remains on 1013. Brief focused physical exam the patient has normal heart and lung exams abdomen is soft nontender. There is no leg swelling at this time. Patient's only complaint at this time is dry dry mouthwhich is possibly secondary to her psych meds. Patient is still medically clear for psych placement at this time.
[2017-09-20] MEDS: TYLENOL PO PRN ×3 (08:14→22:38)
[2017-09-20] MEDS: XANAX PO PRN ×2 (08:22→22:38)
[2017-09-20] MEDS: INDERAL LA PO SCH ×2 (09:58→22:38)
[2017-09-20] MEDS: ELIQUIS PO SCH ×2 (09:58→22:38)
[2017-09-20] MEDS: LYRICA PO SCH ×2 (09:59)
[2017-09-20] MEDS: PROTONIX PO SCH ×2 (09:59→22:38)
[2017-09-20] MEDS: TAPAZOLE PO SCH ×2 (14:12→22:38)
--- NOTE | 2017-09-20 20:04 | Progress Note ---
Subjective - Reason for Consult Consult date: 09/20/17 Reason for consult: Psychiatric Follow-up Evaluation - Chief Complaint Chief complaint: "I'm okay. " Patient is a 37-year-old AA female presents to the emergency department after being sent by [facility]. She was transferred from the medical floor to [facility] on 08/30/2017. There was a concern that she was not medically stable for the facility. 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 The aortic thrombus/filling defect is reported to be chronic and unchanged since previous admission. Today the patient is calm and cooperative during the assessment. She continuesto endorses suicidal ideations and auditory hallucinations. She stated that the voices are more during the day. She states " I hear the voices more in the daytime until I take Seroquel. The voices are telling me to harm myself, which makes me suicidal. The Seroquel helps me to maintain my calmness. " She denies HI's and VH's. She denies any side effects of her medications. Mental Status Exam - Vital signs Last Vital Signs Temp 97.9 F 09/20/17 09:59 Pulse 85 09/20/17 09:58 Resp 17 09/20/17 11:21 BP 123/75 09/20/17 09:58 Pulse Ox 100 09/20/17 11:21 - Exam Narrative exam: Mental Status Exam General Appearance: Causally Dressed-hospital gown Eye Contact: Intermittent Orientation: Alert and oriented x 4 ( person, place, time, and situation) Attitude/Behavior: Cooperative Sensorium: Distracted Psychomotor & Musculoskeletal Activity: Ambulatory Mood: "Okay" Depressed and anxious. Affect: Constricted Speech/Language: Regular rate and tone Thought Processes: Circumstantial Thought Content: Impoverished. Paranoid secondary to AH. Perception: + Auditory hallucinations- " I'm hearing voices telling me to harm myself. " Patient denies VH. Concentration/Attention: Impaired Suicidal Ideations/Plan: + SI with plan to cut self with knife secondary to AH. 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 Today the patient is calm and cooperative during the assessment. She continues to endorse SI's, AH's, and delusions. She denies VH and HI. DDx: Bipolar DO, R/O MDD with psychosis, R/O Schizoaffective DO Recommendation/Plan: 1. Continue 1013 with placement to inpatient psychiatric services. 2. Continue Seroquel 200 mg PO daily, Seroquel 400 mg PO HS for mood/psychosis, and Trazodone 100 mg PO HS PRN for sleep. Discussed possible metabolic side effects of Seroquel. Discussed possible suicidality/medication induced kristyn with patient reference Trazodone. 3. Will continue to monitor mood, psychosis, sleep, appetite, compliance, and side effects.
[2017-09-20] MEDS: DESYREL PO PRN (22:38)
[2017-09-21] MEDS: TAPAZOLE PO SCH ×3 (06:48→23:55)
[2017-09-21] MEDS: XANAX PO PRN (06:49)
[2017-09-21] MEDS: TYLENOL PO PRN ×2 (06:49→16:53)
[2017-09-21] MEDS: ELIQUIS PO SCH ×2 (10:23→23:55)
[2017-09-21] MEDS: INDERAL LA PO SCH ×2 (10:24→23:55)
[2017-09-21] MEDS: PROTONIX PO SCH ×2 (10:25→23:55)
[2017-09-21] MEDS: LYRICA PO SCH ×2 (10:25)
--- NOTE | 2017-09-21 14:49 | Progress Note ---
Subjective - Reason for Consult Consult date: 09/21/17 Reason for consult: Psychiatry Follow-up - Chief Complaint Chief complaint: "I am sleeping better" Patient is a 37-year-old AA female presents to the emergency department after being sent by [facility]. She was transferred from the medical floor to [facility] on 08/30/2017. There was a concern that she was not medically stable for the facility. 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 The aortic thrombus/filling defect is reported to be chronic and unchanged since previous admission. Today the patient is calm and cooperative during the assessment. She continue to endorses suicidal ideations and auditory hallucinations. She stated that she is sleeping well at night. She stated that the voices are still telling her to kill herself. She stated that she was hearing voices prior to her original admission 08/22/2017. She stated that the voices have been a "major concern" for her. She denies HI's and VH's. She denies any side effects of her medications. 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 Today the patient is calm and cooperative during the assessment. She continues to endorse SI's. DDx: Bipolar DO, R/O MDD with psychosis, R/O Schizoaffective DO Recommendation/Plan: Continue 1013 with placement to inpatient psy services. Continue Seroquel 200 mg PO daily, Seroquel 400 mg PO HS for mood/psychosis, and Trazodone 100 mg PO HS PRN for sleep. Discussed possible metabolic side effects of Seroquel. Discussed possible suicidality/medication induced kristyn with patient reference Trazodone.
[2017-09-21] MEDS: DESYREL PO PRN (23:56)
[2017-09-22] MEDS: TAPAZOLE PO SCH ×3 (06:37→22:15)
[2017-09-22] MEDS: XANAX PO PRN (06:41)
[2017-09-22] MEDS: TYLENOL PO PRN (06:47)
[2017-09-22] MEDS: LYRICA PO SCH ×2 (10:55→10:56)
[2017-09-22] MEDS: ELIQUIS PO SCH ×2 (10:55→22:34)
[2017-09-22] MEDS: INDERAL LA PO SCH ×2 (10:55→22:15)
[2017-09-22] MEDS: PROTONIX PO SCH ×2 (10:56→22:15)
--- NOTE | 2017-09-22 12:57 | Progress Note ---
Subjective - Reason for Consult Consult date: 09/22/17 Reason for consult: Psychhiatry Follow-up - Chief Complaint Chief complaint: "I hope the voices stop" Patient is a 37-year-old AA female presents to the emergency department after being sent by [facility]. She was transferred from the medical floor to [facility] on 08/30/2017. There was a concern that she was not medically stable for the facility. 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 The aortic thrombus/filling defect is reported to be chronic and unchanged since previous admission. Today the patient is calm and cooperative during the assessment. She continue to endorses suicidal ideations and auditory hallucinations. She stated that she has tried to commit suicide in the past because she heard voices. She stated, " I just want the voices to stop." She denies HI's and VH's. She denies any side effects of her medications. Mental Status Exam - Vital signs Last Vital Signs Temp 98.2 F 09/22/17 01:03 Pulse 97 H 09/22/17 01:03 Resp 16 09/22/17 06:47 BP 113/74 09/22/17 01:03 Pulse Ox 99 09/22/17 01:08 - Exam Narrative exam: MSE: Appearance: calm, cooperative Behavior: regular eye contact Speech: regular rate and tone Mood: "depressed" Affect: congruent to mood Thought Process: circumstantial Thought Content: denies HI's and VH's Motor Activity: sitting up in bed Cognition: A/O x 3 Insight: variable Judgment: variable Assessment and Plan Impression: Unspecified Mood DO with psy features. Today the patient is calm and cooperative during the assessment. She continues to endorse SI's. DDx: Bipolar DO, R/O MDD with psychosis, R/O Schizoaffective DO Recommendation/Plan: Continue 1013 with placement to inpatient psy services. Continue Seroquel 200 mg PO daily, Seroquel 400 mg PO HS for mood/psychosis, and Trazodone 100 mg PO HS PRN for sleep. Discussed possible metabolic side effects of Seroquel. Discussed possible suicidality/medication induced kristyn with patient reference Trazodone.
[2017-09-23] MEDS: TAPAZOLE PO SCH (06:18)
[2017-09-23] MEDS: TYLENOL PO PRN (06:25)
[2017-09-23] MEDS: LYRICA PO SCH ×2 (10:15)
[2017-09-23] MEDS: PROTONIX PO SCH (10:15)
[2017-09-23] MEDS: ELIQUIS PO SCH (10:15)
[2017-09-23] MEDS: INDERAL LA PO SCH (10:15)
--- NOTE | 2017-09-23 19:20 | Progress Note ---
Subjective - Reason for Consult Consult date: 09/23/17 Reason for consult: Psychiatric Follow-up Evaluation - Chief Complaint Chief complaint: "I'm okay. " Patient is a 37-year-old AA female presents to the emergency department after being sent by [facility]. She was transferred from the medical floor to [facility] on 08/30/2017. There was a concern that she was not medically stable for the facility. 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 The aortic thrombus/filling defect is reported to be chronic and unchanged since previous admission. Today the patient is calm and cooperative during the assessment. She continues to endorses suicidal ideations and auditory hallucinations. She stated that Seroquel is making the voices decrease . She endorses intermittent psychosis and suicidal ideation. She denies HI's and VH's. She denies any side effects of her medications. Mental Status Exam - Vital signs Last Vital Signs Temp 98.9 F 09/22/17 19:47 Pulse 83 09/23/17 10:15 Resp 16 09/23/17 08:00 BP 120/71 09/23/17 10:15 Pulse Ox 97 09/23/17 08:00 - Exam Narrative exam: Mental Status Exam General Appearance: Causally Dressed-hospital gown Eye Contact: Intermittent Orientation: Alert and oriented x 4 ( person, place, time, and situation) Attitude/Behavior: Cooperative Sensorium: Distracted Psychomotor & Musculoskeletal Activity: Ambulatory Mood: "I'm okay " Depressed and anxious-less Affect: Constricted Speech/Language: Regular rate and tone Thought Processes: Circumstantial Thought Content: Impoverished. Paranoid secondary to AH ( intermittent) Perception: + Auditory hallucinations- " I'm hearing voices telling me to harm myself. " Patient denies VH. Concentration/Attention: Impaired Suicidal Ideations/Plan: + SI with plan to cut self with knife secondary to AH. 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 Today the patient is calm and cooperative during the assessment. She continues to endorse intermittent SI's, AH's, and delusions. She denies VH and HI. DDx: Bipolar DO, R/O MDD with psychosis, R/O Schizoaffective DO Recommendation/Plan: 1. Continue 1013 with placement to inpatient psychiatric services. 2. Continue Seroquel 200 mg PO daily, Seroquel 400 mg PO HS for mood/psychosis, and Trazodone 100 mg PO HS PRN for sleep. Discussed possible metabolic side effects of Seroquel. Discussed possible suicidality/medication induced kristyn with patient reference Trazodone. 3. Will continue to monitor mood, psychosis, sleep, appetite, compliance, and side effects.
[2017-09-24] MEDS: ELIQUIS PO SCH ×3 (00:24→22:18)
[2017-09-24] MEDS: TAPAZOLE PO SCH ×3 (00:24→22:18)
[2017-09-24] MEDS: PROTONIX PO SCH ×3 (00:24→22:19)
[2017-09-24] MEDS: INDERAL LA PO SCH ×3 (00:24→22:19)
[2017-09-24] MEDS: LYRICA PO SCH ×2 (11:21)
[2017-09-24] MEDS: XANAX PO PRN (12:32)
[2017-09-24] MEDS: TYLENOL PO PRN ×2 (12:33→22:23)
--- NOTE | 2017-09-24 17:28 | Progress Note ---
Subjective - Reason for Consult Consult date: 09/24/17 Reason for consult: Psychiatric Follow-up Evaluation - Chief Complaint Chief complaint: "I feel okay " Patient is a 37-year-old AA female presents to the emergency department after being sent by [facility]. She was transferred from the medical floor to [facility] on 08/30/2017. There was a concern that she was not medically stable for the facility. 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 The aortic thrombus/filling defect is reported to be chronic and unchanged since previous admission. Today the patient is calm and cooperative during the assessment. Today is the first time patient denies psychosis and suicidal ideations. She reports that Seroquel is controlling her symptoms well. She states " in the morning I was hearing voices for 1-2 minutes but I couldn't make out what they were saying." She states that the voices disappeared within minutes. Although she endorses intermittent psychosis and suicidal ideations, currently she denies. She reports medication compliance. No indications of any side effects of her medications. Mental Status Exam - Vital signs Last Vital Signs Temp 99.6 F 09/24/17 11:20 Pulse 92 H 09/24/17 11:20 Resp 18 09/24/17 13:33 BP 110/68 09/24/17 11:20 Pulse Ox 99 09/24/17 11:20 - Exam Narrative exam: Mental Status Exam General Appearance: Causally Dressed-hospital gown Eye Contact: Intermittent Orientation: Alert and oriented x 4 ( person, place, time, and situation) Attitude/Behavior: Cooperative Sensorium: Distracted-less Psychomotor & Musculoskeletal Activity: Ambulatory Mood: "Okay " Depressed and anxious-less Affect: Constricted Speech/Language: Regular rate and tone Thought Processes: Circumstantial Thought Content: Impoverished. Paranoid secondary to AH ( intermittent)-less. Currently denies. Perception: Intermittent AH. Currently, patient denies. 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 Today the patient is calm and cooperative during the assessment. She endorses intermittent psychosis. Currently, she denies SI/HI, A/VH, and delusions. DDx: Bipolar DO, R/O MDD with psychosis, R/O Schizoaffective DO Recommendation/Plan: 1. Continue 1013 with placement to inpatient psychiatric services. 2. Continue Seroquel 200 mg PO daily, Seroquel 400 mg PO HS for mood/psychosis, and Trazodone 100 mg PO HS PRN for sleep. Discussed possible metabolic side effects of Seroquel. Discussed possible suicidality/medication induced kristyn with patient reference Trazodone. 3. Will continue to monitor mood, psychosis, sleep, appetite, compliance, and side effects. 4. If patient is in no danger to self or others on 09/26/17 psychiatry will sign off. Patient will need assistance with placement. Will place a consult for social professionals.
[2017-09-25] MEDS: TAPAZOLE PO SCH ×2 (07:02→23:42)
[2017-09-25] MEDS: PROTONIX PO SCH ×2 (11:00→23:42)
[2017-09-25] MEDS: LYRICA PO SCH ×2 (11:00)
[2017-09-25] MEDS: ELIQUIS PO SCH ×2 (11:00→23:46)
[2017-09-25] MEDS: INDERAL LA PO SCH ×2 (11:53→23:42)
--- NOTE | 2017-09-25 12:38 | Progress Note ---
Subjective - Reason for Consult Consult date: 09/25/17 Reason for consult: Psychiatry Follow-up - Chief Complaint Chief complaint: "I feel okay " Patient is a 37-year-old AA female presents to the emergency department after being sent by [facility]. She was transferred from the medical floor to [facility] on 08/30/2017. There was a concern that she was not medically stable for the facility. 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 The aortic thrombus/filling defect is reported to be chronic and unchanged since previous admission. Today the patient is calm and cooperative during the assessment. She stated that her SI's have decreased. She stated that the voices has decreased as well. She rate her depression 5/10, with 10 being the worse. She denies HI's and VH' s. She denies any side effects of her medications. Mental Status Exam - Vital signs Last Vital Signs Temp 98.9 F 09/24/17 23:00 Pulse 93 H 09/25/17 11:53 Resp 18 09/24/17 23:00 BP 132/72 09/25/17 11:53 Pulse Ox 98 09/24/17 23:00 - Exam Narrative exam: MSE: Appearance: calm, cooperative Behavior: regular eye contact Speech: regular rate and tone Mood: "better" Affect: congruent to mood Thought Process: circumstantial Thought Content: denies HI's and VH's Motor Activity: sitting up in bed Cognition: A/O x 3 Insight: variable Judgment: variable Assessment and Plan Impression: Unspecified Mood DO with psy features. Today the patient is calm and cooperative during the assessment. The patient has passive SI's. DDx: Bipolar DO, R/O MDD with psychosis, R/O Schizoaffective DO Recommendation/Plan: Continue 1013 with placement to inpatient psy services. Continue Seroquel 200 mg PO daily, Seroquel 400 mg PO HS for mood/psychosis, and Trazodone 100 mg PO HS PRN for sleep. Discussed possible metabolic side effects of Seroquel. Discussed possible suicidality/medication induced kristyn with patient reference Trazodone.
[2017-09-26] MEDS: TYLENOL PO PRN ×2 (08:40→22:49)
[2017-09-26] MEDS: XANAX PO PRN (08:40)
[2017-09-26] MEDS: TAPAZOLE PO SCH ×4 (08:41→22:48)
[2017-09-26] MEDS: PROTONIX PO SCH ×2 (09:38→22:48)
[2017-09-26] MEDS: ELIQUIS PO SCH ×2 (09:38→22:48)
[2017-09-26] MEDS: LYRICA PO SCH ×2 (09:38)
[2017-09-26] MEDS: INDERAL LA PO SCH ×2 (09:38→22:48)
--- NOTE | 2017-09-26 13:52 | Progress Note ---
Subjective - Reason for Consult Consult date: 09/26/17 Reason for consult: Psychiatry Follow-up - Chief Complaint Chief complaint: "I'm mellowing out" Patient is a 37-year-old AA female presents to the emergency department after being sent by [facility]. She was transferred from the medical floor to [facility] on 08/30/2017. There was a concern that she was not medically stable for the facility. 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 The aortic thrombus/filling defect is reported to be chronic and unchanged since previous admission. Today the patient is calm and cooperative during the assessment. She stated she is "mellowing out" and feeling better. She stated that her SI's and AH's continue to "decrease." She denies being depressed and willing to use outpatient psy services once discharged. She denies HI's and VH's. She denies any side effects of her medications. Mental Status Exam - Vital signs Last Vital Signs Temp 98.3 F 09/26/17 09:31 Pulse 96 H 09/26/17 09:31 Resp 18 09/26/17 09:31 BP 115/83 09/26/17 09:31 Pulse Ox 100 09/26/17 09:31 - Exam Narrative exam: MSE: Appearance: calm, cooperative Behavior: regular eye contact Speech: regular rate and tone Mood: "better" Affect: congruent to mood Thought Process: circumstantial Thought Content: denies HI's and VH's Motor Activity: sitting up in bed Cognition: A/O x 3 Insight: variable Judgment: variable Assessment and Plan Impression: Unspecified Mood DO with psy features. Today the patient is calm and cooperative during the assessment. The patient's SI's and AH's are decreasing. DDx: Bipolar DO, R/O MDD with psychosis, R/O Schizoaffective DO Recommendation/Plan: Reevaluate 1013 in 24 hours to determine proper dispo. Continue 1013 with placement to inpatient psy services. Continue Seroquel 200 mg PO daily, Seroquel 400 mg PO HS for mood/psychosis, and Trazodone 100 mg PO HS PRN for sleep. Discussed possible metabolic side effects of Seroquel. Discussed possible suicidality/medication induced kristyn with patient reference Trazodone.
[2017-09-26] MEDS: DESYREL PO PRN (22:49)
[2017-09-27] MEDS: TAPAZOLE PO SCH ×3 (06:09→22:23)
[2017-09-27] MEDS: LYRICA PO SCH ×2 (09:34)
[2017-09-27] MEDS: ELIQUIS PO SCH ×2 (09:34→22:23)
[2017-09-27] MEDS: PROTONIX PO SCH ×2 (09:34→22:30)
[2017-09-27] MEDS: INDERAL LA PO SCH ×2 (09:34→22:30)
[2017-09-27] MEDS: TYLENOL PO PRN (09:35)
[2017-09-27] MEDS: XANAX PO PRN (09:35)
--- NOTE | 2017-09-27 12:31 | Progress Note ---
Subjective - Reason for Consult Consult date: 09/27/17 Reason for consult: Psychiatric Follow-up Evaluation - Chief Complaint Chief complaint: "I'm still hearing voices." Patient is a 37-year-old AA female presents to the emergency department after being sent by [facility]. She was transferred from the medical floor to [facility] on 08/30/2017. There was a concern that she was not medically stable for the facility. 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 The aortic thrombus/filling defect is reported to be chronic and unchanged since previous admission. Today the patient is calm and cooperative during the assessment. Patient states " I'm still hearing voices but they're not as loud. The paranoia/depression is still there but it's getting better. I feel more normal." Although patient continues to endorse suicidal ideations, she verbalizes that she does not want to harm herself. She believes that Seroquel is partially effective with controlling her symptoms. She reports medication compliance. No indications of any side effects of her medications. Mental Status Exam - Vital signs Last Vital Signs Temp 98.4 F 09/27/17 08:34 Pulse 76 09/27/17 08:34 Resp 18 09/27/17 08:34 BP 113/66 09/27/17 08:34 Pulse Ox 99 09/27/17 08:34 - Exam Narrative exam: Mental Status Exam General Appearance: Causally Dressed-hospital gown Eye Contact: Intermittent Orientation: Alert and oriented x 4 ( person, place, time, and situation) Attitude/Behavior: Cooperative Sensorium: Distracted-less Psychomotor & Musculoskeletal Activity: Ambulatory Mood: "Thankful " Affect: Constricted Speech/Language: Regular rate and tone Thought Processes: Circumstantial Thought Content: Impoverished. Paranoid secondary to AH ( intermittent)-less. Improving. Perception: + Intermittent AH. " I hear my name being called." Concentration/Attention: Impaired Suicidal Ideations/Plan: + suicidal ideation without a plan Homicidal Ideations/Plan: Patient denies Insight: Variable Judgment: Variable Assessment and Plan Impression: Unspecified Mood DO with psy features. Today the patient is calm and cooperative during the assessment. Per patient her SI's, AH's, and paranoia thoughts are decreasing. DDx: Bipolar DO, R/O MDD with psychosis, R/O Schizoaffective DO Recommendation/Plan: 1. Continue 1013. Reassess in 24 hours to determine proper disposition. Continue 1013 with placement to inpatient psychiatric services. 2. Continue Seroquel 200 mg PO daily, Seroquel 400 mg PO HS for mood/psychosis, and Trazodone 100 mg PO HS PRN for sleep. Discussed possible metabolic side effects of Seroquel. Discussed possible suicidality/medication induced kristyn with patient reference Trazodone. 3. Will monitor mood, psychosis, sleep, appetite, compliance, and side effects. 4. Case management involved. 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 5. Discontinue Ensure TID/ supplement. Patient appetite is appropriate.
--- NOTE | 2017-09-27 15:12 | Emergency Department Report ---
Blank Doc - Documentation Documentation: "Patient is a 37-year-old AA female presents to the emergency department after being sent by [facility]. She was transferred from the medical floor to [facility] on 08/30/2017. There was a concern that she was not medically stable for the facility. 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 The aortic thrombus/filling defect is reported to be chronic and unchanged since previous admission." I agree with the above psych mid-level assessment patient's past medical history. Patient is calm complaining of no medical conditions at this time. Brief physical exam patient is alert and oriented 3. Heart tones abdomen lungs neurological exam are all within normal limits. Patient continues to be medically cleared for psych placement at this time.
[2017-09-27 18:56] LABS: Basophils # (Auto) 0.1 K/mm3 (0.0-0.1); Basophils % (Auto) 0.8 % (0.0-1.8); Eosinophils # (Auto) 0.2 K/mm3 (0.0-0.4); Hematocrit 32.9 % (30.3-42.9); Hemoglobin 10.4 gm/dl (10.1-14.3); Lymphocytes % (Auto) 39.3 % (13.4-35.0); Mean Corpuscular HGB Conc 32 % (30-34); Mean Corpuscular Volume 72 fl (79-97); Monocytes # (Auto) 0.9 K/mm3 (0.0-0.8); Monocytes % (Auto) 11.7 % (0.0-7.3); Platelet Count 407 K/mm3 (140-440); Red Cell Distribution Width 17.1 % (13.2-15.2)
[2017-09-27 18:57] LABS: Mean Corpuscular Hemoglobin 23 pg (28-32)
[2017-09-27 19:16] LABS: BUN/Creatinine Ratio 30; Blood Urea Nitrogen 18 mg/dL (7-17); Hemolysis Index 5
[2017-09-27] MEDS: DESYREL PO PRN (22:25)
[2017-09-28] MEDS: TAPAZOLE PO SCH ×2 (07:55→15:09)
[2017-09-28 10:50] VITALS: BP 124/71
[2017-09-28] MEDS: XANAX PO PRN (10:50)
[2017-09-28] MEDS: PROTONIX PO SCH (10:51)
[2017-09-28] MEDS: ELIQUIS PO SCH (10:51)
[2017-09-28] MEDS: INDERAL LA PO SCH (10:51)
[2017-09-28] MEDS: LYRICA PO SCH ×2 (10:51)
[2017-09-28] MEDS: TYLENOL PO PRN (10:51)
--- NOTE | 2017-09-28 13:29 | Progress Note ---
Subjective - Reason for Consult Consult date: 09/28/17 Reason for consult: Psychiatry Follow-up - Chief Complaint Chief complaint: "I'm still hearing voices." Patient is a 37-year-old AA female presents to the emergency department after being sent by [facility]. She was transferred from the medical floor to [facility] on 08/30/2017. There was a concern that she was not medically stable for the facility. 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 The aortic thrombus/filling defect is reported to be chronic and unchanged since previous admission. Today the patient is calm and cooperative during the assessment. She stated that she feels much better "mentally." She denies being depressed, SI/HI's and AVH's. She stated that she will need a referral to see a psychiatrist for outpatient psy services when discharged. She denies any side effects of her medications. Mental Status Exam - Vital signs Last Vital Signs Temp 98.6 F 09/28/17 10:48 Pulse 97 H 09/28/17 10:48 Resp 20 09/28/17 10:48 BP 124/71 09/28/17 10:48 Pulse Ox 99 09/28/17 10:48 - Exam Narrative exam: MSE: Appearance: calm, cooperative Behavior: regular eye contact Speech: regular rate and tone Mood: "much better" Affect: congruent to mood Thought Process: logical Thought Content: denies SI/HI's and AVH's Motor Activity: sitting up in bed Cognition: A/O x 3 Insight: appropriate Judgment: appropriate Assessment and Plan Impression: Unspecified Mood DO with psy features. Today the patient is calm and cooperative during the assessment. The patient is no threat to self. DDx: Bipolar DO, R/O MDD with psychosis, R/O Schizoaffective DO Recommendation/Plan: Rescind 1013. Continue Seroquel 200 mg PO daily, Seroquel 400 mg PO HS for mood/psychosis, and Trazodone 100 mg PO HS PRN for sleep. Discussed possible metabolic side effects of Seroquel. Discussed possible suicidality/medication induced kristyn with patient reference Trazodone. The patient can follow up with [facility] for outpatient psy services.
--- NOTE | 2017-09-28 14:52 | Emergency Department Report ---
Blank Doc - Documentation Documentation: Patient has been hospitalized for psychosis and suicidal ideation, and has stabilized since she has been held here on 1013 confinement, and is felt now to be no longer psychotic, is well oriented, calm, and no longer suicidal. Patient is calm and well oriented on my conversation with her, we discussed her outpatient plans, and she understands to have outpatient follow-up clinic with local [facility], and we will refill her medications, including daytime Seroquel, 200 mg, nighttime Seroquel 400 mg, nighttime trazodone as needed for sleep, and short course of raise up and for anxiety. ED Disposition Clinical Impression: Aortic mural thrombus Chest pain Qualifiers: Chest pain type: unspecified Qualified Code(s): R07.9 - Chest pain, unspecified Psychosis Qualifiers: Psychosis type: brief psychotic disorder Qualified Code(s): F23 - Brief psychotic disorder Disposition: DC/TX-65 PSY HOSP/PSY UNIT Is pt being admited?: No Does the pt Need Aspirin: No Condition: Stable Instructions: Mood Disorders (ED), Suicide Prevention for Adults (ED) Additional Instructions: Contact your outpatient mental health clinic provider tomorrow to make arrangements for close follow-up, and to resume your outpatient mental health care. We have refilled your following medications, to be taken and the following fashion: Take 200 mg Seroquel during the daytime once daily Take 400 mg Seroquel at bedtime, once each evening. You may take trazodone, 100 mg at bedtime, as needed, for help sleeping. We have given her a short prescription for lorazepam, which he may take up to 3 times a day as needed for anxiety or agitation. Prescriptions: LORazepam [Ativan] 1 mg PO TID PRN #30 tablet PRN Reason: Anxiety QUEtiapine [SEROquel] 400 mg PO QHS #30 tablet QUEtiapine [SEROquel] 200 mg PO DAILY #30 tablet traZODone [Desyrel] 100 mg PO QHS PRN #30 tablet PRN Reason: Sleep Referrals: PRIMARY CARE, [Primary Care Provider] - 3-5 Days
== END 2017-09-28 15:42 ==
LOC: EEVIPCON 18:46 → ED 18:46
DX: I74.11 Embolism and thrombosis of thoracic aorta (principal); F29 Unspecified psychosis not due to a substance or known physiological condition; F39 Unspecified mood [affective] disorder; F20.9 Schizophrenia, unspecified; I10 Essential (primary) hypertension; F41.9 Anxiety disorder, unspecified; K21.9 Gastro-esophageal reflux disease without esophagitis; Z86.718 Personal history of other venous thrombosis and embolism; Z86.711 Personal history of pulmonary embolism; Z91.018 Allergy to other foods; Z91.010 Allergy to peanuts; Z88.0 Allergy status to penicillin; Z88.6 Allergy status to analgesic agent
CPT/HCPCS: 36415; 71046; 80048; 81001; 81025; 84484; 85025; 85610; 85730; 93005; 93010; 99285

== ENCOUNTER 2017-11-05 14:31 | Emergency (ER) | payer MEDICAID ==
[2017-11-05] MEDS ORDERED: ASPIRIN PO ONE (15:00)
[2017-11-05 15:40] LABS: INR 1.06 (0.87-1.13)
[2017-11-05 15:43] LABS: Partial Thromboplastin Time 22.3 Sec. (24.2-36.6)
[2017-11-05 15:46] LABS: BUN/Creatinine Ratio 27; Blood Urea Nitrogen 19 mg/dL (7-17); Calcium 9.7 mg/dL (8.4-10.2); Hemolysis Index 1
[2017-11-05 15:47] LABS: Basophils % (Auto) 0.5 % (0.0-1.8); Eosinophils % (Auto) 0.1 % (0.0-4.3); Hematocrit 35.2 % (30.3-42.9); Hemoglobin 10.6 gm/dl (10.1-14.3); Lymphocytes # (Auto) 1.7 K/mm3 (1.2-5.4); Lymphocytes % (Auto) 9.5 % (13.4-35.0); Mean Corpuscular HGB Conc 30 % (30-34); Mean Corpuscular Hemoglobin 21 pg (28-32); Mean Corpuscular Volume 70 fl (79-97); Mean Platelet Volume 6.9 fl (6-12); Monocytes % (Auto) 4.3 % (0.0-7.3); Platelet Count 417 K/mm3 (140-440); Red Blood Count 5.01 M/mm3 (3.65-5.03); Red Cell Distribution Width 19.1 % (13.2-15.2)
[2017-11-05 15:48] LABS: Basophils # (Auto) 0.1 K/mm3 (0.0-0.1); Monocytes # (Auto) 0.8 K/mm3 (0.0-0.8)
[2017-11-05] MEDS ORDERED: MORPHINE IM ONE (16:53)
[2017-11-05] MEDS ORDERED: ZOFRAN ODT PO ONE ×2 (16:55→23:55)
[2017-11-05] MEDS ORDERED: LOVENOX SUB-Q ONE (16:57)
[2017-11-05] MEDS ORDERED: INDERAL PO ONE (17:00)
[2017-11-05] MEDS ORDERED: COUMADIN PO ONE (18:00)
--- NOTE | 2017-11-05 19:23 | Emergency Department Report ---
ED Chest Pain HPI - General Chief Complaint: Chest Pain Stated Complaint: CHEST PAIN Time Seen by Provider: 11/05/17 16:03 Source: EMS Mode of arrival: Wheelchair Limitations: No Limitations - History of Present Illness Initial Comments: Ms. Ryan is a 37-year-old female with a history of PE, thyrotoxicosis who presents with chest pain chronic right leg pain. She just taking tramadol and Lortab for pain which is not providing any relief. Pain that she has been persistent for 4 days. She is currently taking warfarin. Gradual onset of symptoms. No shortness of breath. MD Complaint: chest pain -: Gradual Severity: mild Severity scale (0 -10): 8 Quality: aching Consistency: constant - Related Data Previous Rx's Medication Instructions Recorded Last Taken Type ALPRAZolam [Xanax TAB] 0.25 mg PO BID PRN #60 tablet 05/26/17 Unknown Rx Pregabalin [Lyrica] 100 mg PO QAM #30 capsule 05/26/17 Unknown Rx Acetaminophen [Acetaminophen TAB] 650 mg PO Q4H PRN #30 tablet 10/20/17 Unknown Rx Enoxaparin Sodium [Lovenox] 100 mg SQ BID #10 syringe 10/20/17 Unknown Rx Pantoprazole [Protonix TAB] 40 mg PO BID #60 tablet 10/20/17 Unknown Rx Propranolol LA [Inderal LA] 60 mg PO Q12HR #60 capsule 10/20/17 Unknown Rx QUEtiapine [SEROquel] 100 mg PO DAILY #30 tablet 10/20/17 Unknown Rx QUEtiapine [SEROquel] 400 mg PO QHS #30 tablet 10/20/17 Unknown Rx Warfarin [Coumadin] 7.5 mg PO DAILY@1700 #60 tablet 10/20/17 Unknown Rx methIMAzole [Tapazole] 10 mg PO Q8HR #90 tablet 10/20/17 Unknown Rx traZODone [Desyrel] 100 mg PO QHS PRN #30 tablet 10/20/17 Unknown Rx Enoxaparin Sodium [Lovenox] 100 mg SQ BID 5 Days #10 syringe 11/05/17 Unknown Rx Allergies Allergy/AdvReac Type Severity Reaction Status Date / Time acetaminophen [From Percocet] Allergy Itching Verified 10/19/17 03:05 garlic Allergy Unknown Verified 10/19/17 03:05 ibuprofen [From Motrin] Allergy Unknown Verified 10/19/17 03:05 oxycodone [From Percocet] Allergy Itching Verified 10/19/17 03:05 peanut oil Allergy Unknown Verified 10/19/17 03:05 Penicillins Allergy Unknown Verified 10/19/17 03:05 Heart Score - HEART Score History: Slightly suspicious EKG: Normal Age: < 45 Risk factors: 1-2 risk factors Troponin: < normal limit HEART Score: 1 ED Review of Systems ROS: Stated complaint: CHEST PAIN Other details as noted in HPI Comment: All other systems reviewed and negative Constitutional: denies: fever, malaise Respiratory: cough Cardiovascular: chest pain ED Past Medical Hx - Past Medical History Hx Hypertension: Yes Hx Heart Attack/AMI: No (normal stress 10-31-16, normal perfusion scan May 2017 ) Hx Congestive Heart Failure: No Hx Diabetes: No Hx Deep Vein Thrombosis: Yes Hx Pulmonary Embolism: Yes Hx GERD: Yes Hx Sickle Cell Disease: No Hx Seizures: Yes Hx Psychiatric Treatment: Yes (anxiety) Hx Asthma: No Hx COPD: No Hx Tuberculosis: No Additional medical history: pericarditis, pt states hyperthyroidism, thyroid storm, PE x2, (R lung 05/2016, L lung 01/2017--on coumadin), R leg DVT 03/2017, Graves Disease, heart murmur - Surgical History Additional Surgical History: Left arm surgery 02/2017 - Social History Smoking Status: Current Every Day Smoker Substance Use Type: Marijuana - Medications Home Medications: Home Medications Medication Instructions Recorded Confirmed Last Taken Type ALPRAZolam [Xanax TAB] 0.25 mg PO BID PRN #60 tablet 05/26/17 10/19/17 Unknown Rx Pregabalin [Lyrica] 100 mg PO QAM #30 capsule 05/26/17 10/19/17 Unknown Rx Acetaminophen [Acetaminophen TAB] 650 mg PO Q4H PRN #30 tablet 10/20/17 Unknown Rx Enoxaparin Sodium [Lovenox] 100 mg SQ BID #10 syringe 10/20/17 Unknown Rx Pantoprazole [Protonix TAB] 40 mg PO BID #60 tablet 10/20/17 Unknown Rx Propranolol LA [Inderal LA] 60 mg PO Q12HR #60 capsule 10/20/17 Unknown Rx QUEtiapine [SEROquel] 100 mg PO DAILY #30 tablet 10/20/17 Unknown Rx QUEtiapine [SEROquel] 400 mg PO QHS #30 tablet 10/20/17 Unknown Rx Warfarin [Coumadin] 7.5 mg PO DAILY@1700 #60 tablet 10/20/17 Unknown Rx methIMAzole [Tapazole] 10 mg PO Q8HR #90 tablet 10/20/17 Unknown Rx traZODone [Desyrel] 100 mg PO QHS PRN #30 tablet 10/20/17 Unknown Rx Enoxaparin Sodium [Lovenox] 100 mg SQ BID 5 Days #10 syringe 11/05/17 Unknown Rx ED Physical Exam - General Limitations: No Limitations General appearance: alert, in no apparent distress - Head Head exam: Present: atraumatic, normocephalic - Eye Eye exam: Present: normal appearance - ENT ENT exam: Present: mucous membranes moist - Neck Neck exam: Present: normal inspection. Absent: tenderness, meningismus - Respiratory Respiratory exam: Present: normal lung sounds bilaterally. Absent: respiratory distress, wheezes, rales, stridor - Cardiovascular Cardiovascular Exam: Present: regular rate, normal rhythm, normal heart sounds. Absent: bradycardia, tachycardia, systolic murmur, diastolic murmur, rubs, gallop - GI/Abdominal GI/Abdominal exam: Present: soft, normal bowel sounds. Absent: distended, tenderness, guarding, rebound - Extremities Exam Extremities exam: Present: normal inspection - Back Exam Back exam: Present: normal inspection - Neurological Exam Neurological exam: Present: alert, oriented X3 - Psychiatric Psychiatric exam: Present: normal affect, normal mood - Skin Skin exam: Present: warm, dry, intact, normal color. Absent: rash ED Course Vital Signs 11/05/17 11/05/17 11/05/17 14:55 16:06 16:16 Temperature 99.3 F Pulse Rate 140 H 116 H 114 H Respiratory 18 25 H 18 Rate Blood Pressure 162/102 119/68 O2 Sat by Pulse 98 100 Oximetry 11/05/17 11/05/17 11/05/17 16:30 16:46 17:00 Temperature Pulse Rate 112 H 108 H 109 H Respiratory 27 H 25 H 27 H Rate Blood Pressure 119/68 119/68 119/68 O2 Sat by Pulse 98 98 98 Oximetry 11/05/17 11/05/17 11/05/17 17:16 17:30 17:37 Temperature Pulse Rate 108 H 107 H 110 H Respiratory 27 H 19 Rate Blood Pressure 119/68 120/72 120/72 O2 Sat by Pulse 98 98 Oximetry 11/05/17 11/05/17 11/05/17 17:46 18:00 18:16 Temperature Pulse Rate 118 H 107 H 104 H Respiratory 28 H 26 H 25 H Rate Blood Pressure 120/72 120/72 120/72 O2 Sat by Pulse 96 99 97 Oximetry 11/05/17 11/05/17 11/05/17 18:30 18:46 19:08 Temperature Pulse Rate 101 H 105 H 106 H Respiratory 14 21 22 Rate Blood Pressure 120/72 120/72 O2 Sat by Pulse 96 95 98 Oximetry GENOVEVA score - Genoveva Score Age > 65: (0) No Aspirin use within the Past 7 Days: (0) No 3 or more CAD Risk Factors: (0) No 2 or more Angina events in past 24 hrs: (1) Yes Known CAD with more than 50% Stenosis: (0) No Elevated Cardiac Markers: (0) No ST Deviation Greater than 0.5mm: (0) No GENOVEVA Score: 1 ED Medical Decision Making - Lab Data Result diagrams: 11/05/17 15:16 11/05/17 15:16 Laboratory Results - last 24 hr 11/05/17 11/05/17 11/05/17 15:16 15:16 15:16 WBC 17.5 H RBC 5.01 Hgb 10.6 Hct 35.2 MCV 70 L MCH 21 L MCHC 30 RDW 19.1 H Plt Count 417 Lymph % (Auto) 9.5 L Dewey % (Auto) 4.3 Eos % (Auto) 0.1 Baso % (Auto) 0.5 Lymph # 1.7 Dewey # 0.8 Eos # 0.0 Baso # 0.1 Seg Neutrophils % 85.6 H Seg Neutrophils # 15.0 H PT 14.3 INR 1.06 APTT 22.3 L Sodium 137 Potassium 4.4 Chloride 97.9 L Carbon Dioxide 21 L Anion Gap 23 BUN 19 H Creatinine 0.7 Estimated GFR > 60 BUN/Creatinine Ratio 27 Glucose 132 H Calcium 9.7 Troponin T < 0.010 11/05/17 18:34 WBC RBC Hgb Hct MCV MCH MCHC RDW Plt Count Lymph % (Auto) Dewey % (Auto) Eos % (Auto) Baso % (Auto) Lymph # Dewey # Eos # Baso # Seg Neutrophils % Seg Neutrophils # PT INR APTT Sodium Potassium Chloride Carbon Dioxide Anion Gap BUN Creatinine Estimated GFR BUN/Creatinine Ratio Glucose Calcium Troponin T < 0.010 Temp Pulse Resp BP Pulse Ox 99.3 F 106 H 22 120/72 98 11/05/17 14:55 11/05/17 19:08 11/05/17 19:08 11/05/17 18:46 11/05/17 19:08 - EKG Data -: EKG Interpreted by Me EKG shows normal: sinus rhythm, axis, intervals, QRS complexes, ST-T waves Rate: tachycardia - EKG Data When compared to previous EKG there are: no significant change, other (compared to EKG on 10/18/2017) - Medical Decision Making Ms. Ryan has hx of PE, pericarditis and right leg DVT. She has had extensive w /u. I suspect tachycardia is due to medication noncompliance, evident with persistent nontherapeutic INR. I do not suspect acute illness at this time. Recent echo and stress test normal. Rx: Lovenox for 5 days. Recommended continued warfarin therapy if she is taking the medicine at all. Critical care attestation.: If time is entered above; I have spent that time in minutes in the direct care of this critically ill patient, excluding procedure time. ED Disposition Clinical Impression: Chest pain, Hyperthyroidism, Somatic symptom disorder, moderate, with predominant pain Disposition: DC-01 TO HOME OR SELFCARE Is pt being admited?: No Does the pt Need Aspirin: No Condition: Stable Instructions: Chest Pain (ED) Prescriptions: Enoxaparin Sodium [Lovenox] 100 mg SQ BID 5 Days #10 syringe Referrals: [facility] [Outside] - 3-5 Days Time of Disposition: 19:52
[2017-11-05 23:46] VITALS: BP 141/84
[2017-11-06] MEDS ORDERED: ZOFRAN ODT ONE
== END 2017-11-06 00:06 | disposition home or self-care (01) ==
LOC: ED 14:31
DX: R07.89 Other chest pain (principal); E05.90 Thyrotoxicosis, unspecified without thyrotoxic crisis or storm; F45.0 Somatization disorder; I11.0 Hypertensive heart disease with heart failure; K21.9 Gastro-esophageal reflux disease without esophagitis; F41.9 Anxiety disorder, unspecified; F17.200 Nicotine dependence, unspecified, uncomplicated; Z88.5 Allergy status to narcotic agent; Z88.0 Allergy status to penicillin; Z91.018 Allergy to other foods; Z91.010 Allergy to peanuts; Z86.718 Personal history of other venous thrombosis and embolism; Z86.711 Personal history of pulmonary embolism
CPT/HCPCS: 36415; 80048; 84484; 85025; 85610; 85730; 93005; 93010; 96372; 99284; J1650; J2270; Q0162

== ENCOUNTER 2017-11-12 11:10 | Emergency (ER) | payer MEDICAID ==
--- NOTE | 2017-11-12 12:37 | Emergency Department Report ---
Chief Complaint: Extremity Problem,Nontraumatic Stated Complaint: RT KNEE SWELLING/PAIN Time Seen by Provider: 11/12/17 12:10 - HPI History of Present Illness: 37-year-old AA female presents to the emergency department with a complaint of right leg pain, numbness, weakness. She has a psychiatric history and the patient does present with some pressured speech. She also presents with tachycardia. She has a history of pericarditis, an aortic blood clot, previous DVTs and PE. Patient is saying that she is unable to ambulate or bear weight to that right foot. - ROS Review of Systems: Positive for right leg numbness, foot pain, and weakness. Negative for headache, chest pain, fever - Exam Vital Signs: Vital Signs 11/12/17 11:34 Temperature 99.2 F Pulse Rate 129 H Respiratory 16 Rate Blood Pressure 135/92 Physical Exam: The patient appears to have good capillary refill and good dorsalis pedis pulses are +2 over 4 to the affected right leg. The patient tried to display her inability to bear weight to that right lower extremity. She has some pressured speech. She has tachycardia. MSE screening note: Focused history and physical exam performed. Due to findings the following was ordered: The patient is known to myself and has a extensive psychiatric and medical history. She presents through triage with a heart rate of almost 130 bpm. The patient is complaining of pain, weakness, inability to bear weight. Patient will be moved and seen on the main emergency Department side. ED Disposition for MSE Condition: Stable Referrals: PRIMARY CARE, [Primary Care Provider] - 3-5 Days
--- NOTE | 2017-11-12 14:31 | Emergency Department Report ---
ED General Adult HPI - General Chief complaint: Extremity Problem,Nontraumatic Stated complaint: RT KNEE SWELLING/PAIN Time Seen by Provider: 11/12/17 12:10 Source: patient Mode of arrival: Wheelchair Limitations: No Limitations - History of Present Illness Initial comments: Patient complains of right lower leg pain for the past 3 weeks. She said the pain starts from her knee and goes down to her right foot. Patient also complained of inability to ambulate or bear weight on the right leg. She also complained of nausea, vomiting and headache. Patient denies chest pain, shortness of breath, abdominal pain and diarrhea. She also says she's been passing out recently and she has a history of blood clotting problems. Patient denied any vaginal symptoms. She also denies any recent history of trauma or injury. She said that the pain in her right leg is sharp and achy and radiating from the knee to her foot and sometimes her right foot changes color purple. I was able to ambulate her in the ED and she was limping and favoring her left leg. Patient has had multiple ED visits recently and majority of the visit is for chest pain. -: Gradual Location: right, lower extremity Radiation: other (From right knee to right foot) Severity scale (0 -10): 6 Quality: aching, sharp Consistency: constant Improves with: none Worsens with: none Associated Symptoms: headaches Treatments Prior to Arrival: other (OTC medications) - Related Data Previous Rx's Medication Instructions Recorded Last Taken Type ALPRAZolam [Xanax TAB] 0.25 mg PO BID PRN #60 tablet 05/26/17 Unknown Rx Pregabalin [Lyrica] 100 mg PO QAM #30 capsule 05/26/17 Unknown Rx Acetaminophen [Acetaminophen TAB] 650 mg PO Q4H PRN #30 tablet 10/20/17 Unknown Rx Enoxaparin Sodium [Lovenox] 100 mg SQ BID #10 syringe 10/20/17 Unknown Rx Pantoprazole [Protonix TAB] 40 mg PO BID #60 tablet 10/20/17 Unknown Rx Propranolol LA [Inderal LA] 60 mg PO Q12HR #60 capsule 10/20/17 Unknown Rx QUEtiapine [SEROquel] 100 mg PO DAILY #30 tablet 10/20/17 Unknown Rx QUEtiapine [SEROquel] 400 mg PO QHS #30 tablet 10/20/17 Unknown Rx Warfarin [Coumadin] 7.5 mg PO DAILY@1700 #60 tablet 10/20/17 Unknown Rx methIMAzole [Tapazole] 10 mg PO Q8HR #90 tablet 10/20/17 Unknown Rx traZODone [Desyrel] 100 mg PO QHS PRN #30 tablet 10/20/17 Unknown Rx Enoxaparin Sodium [Lovenox] 100 mg SQ BID 5 Days #10 syringe 11/05/17 Unknown Rx Allergies Allergy/AdvReac Type Severity Reaction Status Date / Time acetaminophen [From Percocet] Allergy Itching Verified 10/19/17 03:05 garlic Allergy Unknown Verified 10/19/17 03:05 ibuprofen [From Motrin] Allergy Unknown Verified 10/19/17 03:05 oxycodone [From Percocet] Allergy Itching Verified 10/19/17 03:05 peanut oil Allergy Unknown Verified 10/19/17 03:05 Penicillins Allergy Unknown Verified 10/19/17 03:05 ED Review of Systems ROS: Stated complaint: RT KNEE SWELLING/PAIN Other details as noted in HPI Comment: All other systems reviewed and negative Constitutional: denies: chills, fever Eyes: denies: eye pain ENT: denies: ear pain Respiratory: shortness of breath. denies: cough Cardiovascular: denies: chest pain, palpitations Endocrine: no symptoms reported Gastrointestinal: nausea, vomiting. denies: abdominal pain, diarrhea, hematemesis, hematochezia Genitourinary: denies: urgency, dysuria Musculoskeletal: other (RLE Pain). denies: back pain Skin: denies: rash, lesions Neurological: headache, numbness, paresthesias (Right Foot). denies: weakness Psychiatric: denies: anxiety, depression, auditory hallucinations, visual hallucinations, homicidal thoughts, suicidal thoughts Hematological/Lymphatic: denies: easy bleeding, easy bruising ED Past Medical Hx - Past Medical History Hx Hypertension: Yes Hx Heart Attack/AMI: No (normal stress 10-31-16, normal perfusion scan May 2017 ) Hx Congestive Heart Failure: No Hx Diabetes: No Hx Deep Vein Thrombosis: Yes Hx Pulmonary Embolism: Yes Hx GERD: Yes Hx Sickle Cell Disease: No Hx Seizures: Yes Hx Psychiatric Treatment: Yes (anxiety) Hx Asthma: No Hx COPD: No Hx Tuberculosis: No Additional medical history: pericarditis, pt states hyperthyroidism, thyroid storm, PE x2, (R lung 05/2016, L lung 01/2017--on coumadin), R leg DVT 03/2017, Graves Disease, heart murmur - Surgical History Additional Surgical History: Left arm surgery 02/2017 - Social History Smoking Status: Current Every Day Smoker Substance Use Type: None - Medications Home Medications: Home Medications Medication Instructions Recorded Confirmed Last Taken Type ALPRAZolam [Xanax TAB] 0.25 mg PO BID PRN #60 tablet 05/26/17 10/19/17 Unknown Rx Pregabalin [Lyrica] 100 mg PO QAM #30 capsule 05/26/17 10/19/17 Unknown Rx Acetaminophen [Acetaminophen TAB] 650 mg PO Q4H PRN #30 tablet 10/20/17 Unknown Rx Enoxaparin Sodium [Lovenox] 100 mg SQ BID #10 syringe 10/20/17 Unknown Rx Pantoprazole [Protonix TAB] 40 mg PO BID #60 tablet 10/20/17 Unknown Rx Propranolol LA [Inderal LA] 60 mg PO Q12HR #60 capsule 10/20/17 Unknown Rx QUEtiapine [SEROquel] 100 mg PO DAILY #30 tablet 10/20/17 Unknown Rx QUEtiapine [SEROquel] 400 mg PO QHS #30 tablet 10/20/17 Unknown Rx Warfarin [Coumadin] 7.5 mg PO DAILY@1700 #60 tablet 10/20/17 Unknown Rx methIMAzole [Tapazole] 10 mg PO Q8HR #90 tablet 10/20/17 Unknown Rx traZODone [Desyrel] 100 mg PO QHS PRN #30 tablet 10/20/17 Unknown Rx Enoxaparin Sodium [Lovenox] 100 mg SQ BID 5 Days #10 syringe 11/05/17 Unknown Rx ED Physical Exam - General Limitations: No Limitations General appearance: alert, in no apparent distress - Head Head exam: Present: atraumatic, normocephalic, normal inspection - Eye Eye exam: Present: normal appearance, PERRL, EOMI Pupils: Present: normal accommodation - ENT ENT exam: Present: normal exam, normal orophraynx, mucous membranes moist - Neck Neck exam: Present: normal inspection, full ROM. Absent: tenderness - Respiratory Respiratory exam: Present: normal lung sounds bilaterally. Absent: respiratory distress, wheezes, rales, rhonchi, stridor - Cardiovascular Cardiovascular Exam: Present: normal rhythm, tachycardia, normal heart sounds - GI/Abdominal GI/Abdominal exam: Present: soft, normal bowel sounds. Absent: distended, tenderness, guarding, rebound, rigid - Extremities Exam Extremities exam: Present: normal inspection, full ROM, normal capillary refill. Absent: tenderness, pedal edema, joint swelling, calf tenderness - Back Exam Back exam: Present: normal inspection, full ROM. Absent: tenderness, CVA tenderness (R), CVA tenderness (L) - Neurological Exam Neurological exam: Present: alert, oriented X3, CN II-XII intact - Psychiatric Psychiatric exam: Present: normal affect, normal mood - Skin Skin exam: Present: warm, dry, intact, normal color. Absent: rash ED Course Vital Signs 11/12/17 11/12/17 11/12/17 11:34 19:58 20:03 Temperature 99.2 F 98.5 F Pulse Rate 129 H 118 H 113 H Respiratory 16 21 Rate Blood Pressure 135/92 Blood Pressure 127/88 [Left] O2 Sat by Pulse 99 99 Oximetry 11/12/17 11/12/17 11/12/17 20:15 20:30 20:45 Temperature Pulse Rate 103 H 108 H 126 H Respiratory 17 17 25 H Rate Blood Pressure 125/84 118/85 118/85 Blood Pressure [Left] O2 Sat by Pulse 100 100 100 Oximetry 11/12/17 21:00 Temperature Pulse Rate 108 H Respiratory 18 Rate Blood Pressure 116/71 Blood Pressure [Left] O2 Sat by Pulse 97 Oximetry - Reevaluation(s) Reevaluation #1: 11/12/17 19:56 I consulted the vascular surgeon convenience store manager Dr. Marquez. He said he will not be able to treat the patient at [facility] and he recommended transfering the patient to either [facility] or [facility] for further management. I consulted the cardiothoracic surgeon convenience store manager [place] Dr. Juarez. He said he would not be able to accomodate the patient at [place] and he recommend calling [facility] to see if they can accept the patient. I consulted the cardiothoracic surgeon convenience store manager at [facility] Dr Juarez and he accepted patient for transfer to [facility] at [facility].. ED Medical Decision Making - Lab Data Result diagrams: 11/12/17 15:40 09/23/18 15:25 - Radiology Data Radiology results: report reviewed, image reviewed - Medical Decision Making RLE Pain. Critical Care Time: Yes Critical care time in (mins) excluding proc time.: 60 Critical care attestation.: If time is entered above; I have spent that time in minutes in the direct care of this critically ill patient, excluding procedure time. Critical Care Time: Multiple consultations, lab review, image review and multiple evaluation patient 's the bedside. ED Disposition Clinical Impression: Acute pain of right lower extremity, Marijuana abuse, Hyperthyroidism, Aortic dissection, thoracic Disposition: [id number] [facility] Is pt being admited?: No Does the pt Need Aspirin: No Condition: Stable Referrals: PRIMARY CARE, [Primary Care Provider] - 3-5 Days Time of Disposition: 19:14
[2017-11-12] MEDS ORDERED: ATIVAN IV ONE (14:40)
[2017-11-12] MEDS ORDERED: NACL 0.9% 1000 ML 1,000 ML IV ONE (14:41)
[2017-11-12 15:34] LABS: Bilirubin,Urine NEG (Negative); Blood,Urine MOD (Negative); Color,Urine Yellow (Yellow); Mucus,Urine FEW /HPF
[2017-11-12 15:41] LABS: Amphetamine Screen,Urine PRESUMPTIVE NEGATIVE; Benzodiazepines Screen,Urine PRESUMPTIVE NEGATIVE; Cocaine Screen,Urine PRESUMPTIVE NEGATIVE; Methadone Screen,Urine PRESUMPTIVE NEGATIVE; Opiate Screen,Urine PRESUMPTIVE NEGATIVE
[2017-11-12 15:46] LABS: HCG Qualitative,Urine Negative (Negative)
[2017-11-12] MEDS ORDERED: DILAUDID IV ONE ×2 (15:52→19:58)
[2017-11-12] MEDS ORDERED: ZOFRAN IV ONE ×2 (15:53→19:58)
[2017-11-12 15:59] LABS: Hematocrit 33.3 % (30.3-42.9); Hemoglobin 10.7 gm/dl (10.1-14.3); Mean Corpuscular HGB Conc 32 % (30-34); Platelet Count 509 K/mm3 (140-440); Red Blood Count 4.94 M/mm3 (3.65-5.03); Red Cell Distribution Width 19.1 % (13.2-15.2)
[2017-11-12 15:59] LABS: Cannabinoid Screen,Urine PRESUMPTIVE POSITIVE
[2017-11-12 16:06] LABS: Mean Corpuscular Hemoglobin 22 pg (28-32); Mean Corpuscular Volume 67 fl (79-97)
[2017-11-12 16:07] LABS: Alanine Aminotransferase 47 units/L (7-56); Albumin 3.8 g/dL (3.9-5)
[2017-11-12 16:08] LABS: Eosinophils % (Auto) 1.1 % (0.0-4.3); Lymphocytes % (Auto) 40.2 % (13.4-35.0); Monocytes % (Auto) 10.5 % (0.0-7.3)
[2017-11-12 16:09] LABS: Basophils # (Auto) 0.1 K/mm3 (0.0-0.1); Basophils % (Auto) 1.9 % (0.0-1.8); Eosinophils # (Auto) 0.1 K/mm3 (0.0-0.4); Lymphocytes # (Auto) 3.1 K/mm3 (1.2-5.4); Monocytes # (Auto) 0.8 K/mm3 (0.0-0.8)
[2017-11-12 16:10] LABS: INR 1.35 (0.87-1.13)
[2017-11-12 16:11] LABS: Partial Thromboplastin Time 25.9 Sec. (24.2-36.6)
[2017-11-12 16:14] LABS: Bilirubin,Direct < 0.2 mg/dL (0-0.2)
[2017-11-12 17:09] LABS: BUN/Creatinine Ratio 35; Blood Urea Nitrogen 21 mg/dL (7-17); Calcium 8.9 mg/dL (8.4-10.2); Hemolysis Index 5
--- NOTE | 2017-11-12 19:15 | Cat Scan Report ---
FINAL REPORT EXAM: CT ANGIO CHEST HISTORY: Elevated D-Dimer TECHNIQUE: Following IV administration of 100 cc of Omnipaque 350 axial helical imaging was performed through the chest with sagittal and coronal reformatted images obtained. Comparison: X-ray chest dated October 19, 2017 and CTs angiogram chest dated August 19, 2017, June 24, 2017, May 24, 2017, November 05, 2016 and March 11, 2016 FINDINGS: There appears to be atelectasis the lower lobes bilaterally. There is no definite evidence of focal infiltrate. There is no evidence of pneumothorax or pleural fluid collection. The trachea and bronchi are patent. The heart appears to be enlarged. The thoracic aorta is normal caliber. However, there is a filling defect in the anterior lateral aspect of the thoracic aorta extending from the proximal descending thoracic aorta inferiorly to the level just above the gastroesophageal junction. This is contiguous with the anterior lateral wall of the proximal descending thoracic aorta. There is no evidence of intrathoracic adenopathy. No filling defects are demonstrated within the pulmonary arteries to suggest the presence of pulmonary artery emboli. The visualized portion the upper abdomen is unremarkable. The bony structures are unremarkable in appearance. IMPRESSION: 1. Filling defect in the anterior lateral aspect of the thoracic aorta that extends from the proximal descending thoracic aorta inferiorly to just above the level of the gastroesophageal junction. This is concerning for an aortic dissection. This is contiguous with the anterior lateral wall of the proximal descending thoracic aorta. On the CT angiogram chest dated September 18, 2016 there is no evidence of abnormality of the wall of the thoracic aorta. However, on the CT angiogram chest dated June 24, 2017 there was a small focus of mural thickening in the anterior lateral wall of the proximal descending thoracic aorta with development of an area of filling defect adjacent to this region on the CT angiogram chest dated August 19, 2017. My suspicion is that this patient has developed an extension of a thoracic aortic dissection which possibly began as and intramural hematoma in June of this year. 2. No evidence of pulmonary artery emboli. 3. Areas of bilateral pulmonary atelectasis. The finding suspicious for a dissection of the thoracic aorta that extends from the proximal descending thoracic aorta to the distal descending thoracic aorta was discussed with Dr. Gaytan at 7:05 p.m. November 12, 2017.
[2017-11-12 21:07] VITALS: BP 116/71
--- NOTE | 2017-11-15 14:23 | Vascular Lab Report ---
Right Lower Extremity Venous Duplex Study: Reason for Exam: Pain and swelling of the right lower extremity. Comments on the Right: All veins visualized are freely compressible without evidence of internal echogenicity. Flow is spontaneous and phasic throughout. No evidence of acute or chronic thrombus is seen in any of the vessels visualized. Comments on the Left: A limited duplex study was done of the proximal veins of the left lower extremity. All veins visualized are freely compressible without evidence of internal echogenicity. Flow is spontaneous and phasic throughout. No evidence of acute or chronic thrombus is seen in any of the vessels visualized. Impression: No evidence of acute or chronic deep venous thrombosis in the right lower extremity.
== END 2017-11-12 21:58 | disposition short-term general hospital (02) ==
LOC: ED 11:10
DX: F12.10 Cannabis abuse, uncomplicated (principal); E05.90 Thyrotoxicosis, unspecified without thyrotoxic crisis or storm; I71.01 Dissection of thoracic aorta; M79.604 Pain in right leg; I10 Essential (primary) hypertension; K21.9 Gastro-esophageal reflux disease without esophagitis; F17.200 Nicotine dependence, unspecified, uncomplicated; Z86.718 Personal history of other venous thrombosis and embolism; Z88.6 Allergy status to analgesic agent; Z91.010 Allergy to peanuts; Z88.0 Allergy status to penicillin; Z91.018 Allergy to other foods
CPT/HCPCS: 36415; 71275; 80048; 80074; 80307; 81001; 81025; 82550; 84439; 84443; 85025; 85379; 85610; 85730; 93971; 96361; 96374; 96375; 96376; 99291; J1170; J2060; J2405; J7030; Q9967

== ENCOUNTER 2018-03-02 22:48 | Inpatient (IN) | payer MEDICAID ==
[2018-03-03 00:21] LABS: Basophils # (Auto) 0.1 K/mm3 (0.0-0.1); Basophils % (Auto) 0.9 % (0.0-1.8); Eosinophils # (Auto) 0.3 K/mm3 (0.0-0.4); Eosinophils % (Auto) 3.6 % (0.0-4.3); Hematocrit 35.4 % (30.3-42.9); Hemoglobin 10.8 gm/dl (10.1-14.3); Lymphocytes # (Auto) 1.9 K/mm3 (1.2-5.4); Lymphocytes % (Auto) 27.1 % (13.4-35.0); Mean Corpuscular HGB Conc 31 % (30-34); Mean Corpuscular Volume 76 fl (79-97); Monocytes # (Auto) 0.4 K/mm3 (0.0-0.8); Monocytes % (Auto) 5.6 % (0.0-7.3); Platelet Count 237 K/mm3 (140-440); Red Blood Count 4.68 M/mm3 (3.65-5.03)
[2018-03-03 00:24] LABS: Red Cell Distribution Width 20.7 % (13.2-15.2)
--- NOTE | 2018-03-03 02:11 | Emergency Department Report ---
ED Chest Pain HPI - General Chief Complaint: Chest Pain Stated Complaint: FAINTING SEVERE CHEST AND LEG PAIN VOMITTING SWELL Time Seen by Provider: 03/03/18 02:08 Source: patient Mode of arrival: Ambulatory Limitations: No Limitations - History of Present Illness Initial Comments: Patient is a 37-year-old female that presents emergency room with complaints of syncopal episode 3 today. Patient also complains of mid chest pain 1 week and bilateral lower extremity edema 3 days. Patient states chest pain is not radiating. Patient states some cerebral chest and is a 10 out of 10. Patient states the pain is worsening. Patient states that her syncopal episode of all been witnessed. Patient also complains of nausea vomiting. Patient complains o f diaphoresis. MD Complaint: chest pain -: Sudden Onset: during rest Pain Location: substernal, left chest Pain Radiation: none Severity: severe Severity scale (0 -10): 10 Quality: sharp Consistency: constant Improves With: rest Worsens With: exertion re: nausea, vomting, diaphoresis, dyspnea. denies: sense of impending doom Other Symptoms: leg swelling. denies: cough, fever, syncope, rash, acid taste in mouth, palpitations Treatments Prior to Arrival: aspirin Aspirin use within the Past 7 Days: (1) Yes - Related Data On Oral Contraceptives: No Previous Rx's Medication Instructions Recorded Last Taken Type ALPRAZolam [Xanax TAB] 0.25 mg PO BID PRN #60 tablet 05/26/17 Unknown Rx Pregabalin [Lyrica] 100 mg PO QAM #30 capsule 05/26/17 Unknown Rx Acetaminophen [Acetaminophen TAB] 650 mg PO Q4H PRN #30 tablet 10/20/17 Unknown Rx Enoxaparin Sodium [Lovenox] 100 mg SQ BID #10 syringe 10/20/17 Unknown Rx Pantoprazole [Protonix TAB] 40 mg PO BID #60 tablet 10/20/17 Unknown Rx Propranolol LA [Inderal LA] 60 mg PO Q12HR #60 capsule 10/20/17 Unknown Rx QUEtiapine [SEROquel] 100 mg PO DAILY #30 tablet 10/20/17 Unknown Rx QUEtiapine [SEROquel] 400 mg PO QHS #30 tablet 10/20/17 Unknown Rx Warfarin [Coumadin] 7.5 mg PO DAILY@1700 #60 tablet 10/20/17 Unknown Rx methIMAzole [Tapazole] 10 mg PO Q8HR #90 tablet 10/20/17 Unknown Rx traZODone [Desyrel] 100 mg PO QHS PRN #30 tablet 10/20/17 Unknown Rx Enoxaparin Sodium [Lovenox] 100 mg SQ BID 5 Days #10 syringe 11/05/17 Unknown Rx Allergies Allergy/AdvReac Type Severity Reaction Status Date / Time acetaminophen [From Percocet] Allergy Itching Verified 10/19/17 03:05 garlic Allergy Unknown Verified 10/19/17 03:05 ibuprofen [From Motrin] Allergy Unknown Verified 10/19/17 03:05 oxycodone [From Percocet] Allergy Itching Verified 10/19/17 03:05 peanut oil Allergy Unknown Verified 10/19/17 03:05 Penicillins Allergy Unknown Verified 10/19/17 03:05 Heart Score - HEART Score History: Slightly suspicious EKG: Non-specific Age: < 45 Risk factors: > 3 risk factors or hx of atherosclerotic disease Troponin: < normal limit HEART Score: 3 ED Review of Systems ROS: Stated complaint: FAINTING SEVERE CHEST AND LEG PAIN VOMITTING SWELL Other details as noted in HPI Constitutional: denies: chills, fever Eyes: denies: eye pain, eye discharge, vision change ENT: denies: ear pain, throat pain Respiratory: shortness of breath. denies: cough, wheezing Cardiovascular: chest pain, edema. denies: palpitations Endocrine: no symptoms reported Gastrointestinal: denies: abdominal pain, nausea, diarrhea Genitourinary: denies: urgency, dysuria, discharge Musculoskeletal: denies: back pain, joint swelling, arthralgia Skin: denies: rash, lesions Neurological: denies: headache, weakness, paresthesias Psychiatric: denies: anxiety, depression Hematological/Lymphatic: denies: easy bleeding, easy bruising ED Past Medical Hx - Past Medical History Previous Medical History?: Yes Hx Hypertension: Yes Hx Heart Attack/AMI: (normal stress 10-31-16, normal perfusion scan May 2017) Hx Congestive Heart Failure: No Hx Diabetes: No Hx Deep Vein Thrombosis: Yes Hx Pulmonary Embolism: Yes Hx GERD: Yes Hx Sickle Cell Disease: No Hx Seizures: Yes Hx Psychiatric Treatment: Yes (anxiety) Hx Asthma: No Hx COPD: No Hx Tuberculosis: No Additional medical history: pericarditis, pt states hyperthyroidism, thyroid storm, PE x2, (R lung 05/2016, L lung 01/2017--on coumadin), R leg DVT 03/2017, Graves Disease, heart murmur, blood clot on Aorta - Surgical History Past Surgical History?: Yes Additional Surgical History: Left arm surgery 02/2017, Right knee, Rt leg - Family History Family history: no significant - Social History Smoking Status: Current Some Day Smoker Substance Use Type: None - Medications Home Medications: Home Medications Medication Instructions Recorded Confirmed Last Taken Type ALPRAZolam [Xanax TAB] 0.25 mg PO BID PRN #60 tablet 05/26/17 01/25/18 Unknown Rx Pregabalin [Lyrica] 100 mg PO QAM #30 capsule 05/26/17 01/25/18 Unknown Rx Acetaminophen [Acetaminophen TAB] 650 mg PO Q4H PRN #30 tablet 10/20/17 01/25/18 Unknown Rx Enoxaparin Sodium [Lovenox] 100 mg SQ BID #10 syringe 10/20/17 01/25/18 Unknown Rx Pantoprazole [Protonix TAB] 40 mg PO BID #60 tablet 10/20/17 01/25/18 Unknown Rx Propranolol LA [Inderal LA] 60 mg PO Q12HR #60 capsule 10/20/17 01/25/18 Unknown Rx QUEtiapine [SEROquel] 100 mg PO DAILY #30 tablet 10/20/17 01/25/18 Unknown Rx QUEtiapine [SEROquel] 400 mg PO QHS #30 tablet 10/20/17 01/25/18 Unknown Rx Warfarin [Coumadin] 7.5 mg PO DAILY@1700 #60 tablet 10/20/17 01/25/18 Unknown Rx methIMAzole [Tapazole] 10 mg PO Q8HR #90 tablet 10/20/17 01/25/18 Unknown Rx traZODone [Desyrel] 100 mg PO QHS PRN #30 tablet 10/20/17 01/25/18 Unknown Rx Enoxaparin Sodium [Lovenox] 100 mg SQ BID 5 Days #10 syringe 11/05/17 01/25/18 Unknown Rx ED Physical Exam - General Limitations: No Limitations General appearance: alert, in no apparent distress - Head Head exam: Present: atraumatic, normocephalic - Eye Eye exam: Present: normal appearance - ENT ENT exam: Present: mucous membranes moist - Neck Neck exam: Present: normal inspection - Respiratory Respiratory exam: Present: normal lung sounds bilaterally. Absent: respiratory distress - Cardiovascular Cardiovascular Exam: Present: regular rate, normal rhythm. Absent: systolic murmur, diastolic murmur, rubs, gallop - GI/Abdominal GI/Abdominal exam: Present: soft, normal bowel sounds. Absent: distended, tenderness, guarding, rebound - Extremities Exam Extremities exam: Present: pedal edema. Absent: tenderness, calf tenderness - Back Exam Back exam: Present: normal inspection - Neurological Exam Neurological exam: Present: alert, oriented X3 - Psychiatric Psychiatric exam: Present: normal affect, normal mood - Skin Skin exam: Present: warm, dry, intact, normal color. Absent: rash ED Course Vital Signs 03/03/18 03/03/18 04:51 06:20 Temperature 98.9 F Pulse Rate 83 87 Respiratory 18 20 Rate Blood Pressure 118/66 121/73 [Right] O2 Sat by Pulse 96 93 Oximetry - Reevaluation(s) Reevaluation #1: discussed all results patient. Patient to be admitted to the hospitalist service. Patient agrees plan of care and admission. 03/03/18 06:32 - Consultations Consultation #1: *Surgery consult. Dr. Sal recommends admission and have an stat inpatient echo. 03/03/18 06:33 03/03/18 06:35 Consultation #2: Cardiology consultation. Dr. Ma to see patient and do a stat echo. 03/03/18 06:52 Consultation #3: Hospitalist consult for admission. Hospitalist to admit patient and assume care of patient. 03/03/18 06:52 GENOVEVA score - Genoveva Score Age > 65: (0) No Aspirin use within the Past 7 Days: (0) No 3 or more CAD Risk Factors: (0) No 2 or more Angina events in past 24 hrs: (1) Yes Known CAD with more than 50% Stenosis: (0) No Elevated Cardiac Markers: (0) No ST Deviation Greater than 0.5mm: (0) No GENOVEVA Score: 1 ED Medical Decision Making - Lab Data Result diagrams: 03/02/18 23:38 03/02/18 03:53 - EKG Data -: EKG Interpreted by Me EKG shows normal: sinus rhythm, axis, intervals, QRS complexes, ST-T waves Rate: tachycardia - Radiology Data Radiology results: report reviewed FINDINGS: Borderline enlarged main pulmonary artery (relative to the aorta on axial series 2, image 42) with saddle embolism branching into numerous bilateral segments of the pulmonary arterial tree. No interventricular bowing is seen at this time. Heart size is normal. No pericardial effusion. Thoracic aorta is normal in course and caliber. A descending aortic stent is present. No periaortic fluid or stranding. No pneumothorax, effusion or focal airspace disease. The central airways are patent. No bronchiectasis. Imaged portion of the upper abdomen is unremarkable. The superficial soft tissues are unremarkable. No acute bony abnormality or worrisome osseous lesions identified. IMPRESSION: Large saddle pulmonary embolism branching into numerous bilateral segments of the pulmonary arterial tree. Dr. Cheney discussed findings with Dr. Rivers at 0522 central Time on 03/03/2018 immediately following the examination. FINAL REPORT EXAM: CT HEAD/BRAIN WO CON HISTORY: syncope TECHNIQUE: CT imaging acquired through the head without intravenous contrast. Transaxial reformations are provided. PRIORS: None. FINDINGS: The ventricles, cisterns and sulci are normal. No intraparenchymal or extra- axial mass, hemorrhage, or mass effect. Villalobos and white-matter differentiation is normal. Normal spherical shape of the globes. Paranasal sinuses and mastoid air cells are clear. No skull or facial fracture visualized. IMPRESSION: No acute intracranial abnormality. Transcribed By: MB Dictated By: ASHLEE CHENEY MD Electronically Authenticated By: ASHLEE CHENEY MD Signed Date/Time: 03/03/18 0620 - Medical Decision Making Dishes a 37-year-old female presents to [facility] with chest pain and syncopal epi sodes. Patient also complained of the lower extremity. Patient found to have a large saddle embolism. Vascular surgery consultation cardiology consultation and hospitalist consultation for admission. Patient's labs reviewed. No RV pattern on CT per radiologist report. CTA of chest reviewed. CT head reviewed. Patient started on heparin drip. - Differential Diagnosis PE. Chest pain. ACS. Syncope Critical Care Time: Yes Critical care attestation.: If time is entered above; I have spent that time in minutes in the direct care of this critically ill patient, excluding procedure time. Critical Care Time: 55 minutes ED Disposition Clinical Impression: Elevated brain natriuretic peptide (BNP) level, Elevated d-dimer, History of pulmonary embolism Chest pain Qualifiers: Chest pain type: unspecified Qualified Code(s): R07.9 - Chest pain, unspecified Dyspnea Qualifiers: Dyspnea type: shortness of breath Qualified Code(s): R06.02 - Shortness of breath Saddle embolism of pulmonary artery Qualifiers: Chronicity: acute Acute cor pulmonale presence: without acute cor pulmonale Qualified Code(s): I26.92 - Saddle embolus of pulmonary artery without acute cor pulmonale Syncope Qualifiers: Syncope type: unspecified Qualified Code(s): R55 - Syncope and collapse Disposition: DC-09 OP ADMIT IP TO THIS HOSP Is pt being admited?: Yes Does the pt Need Aspirin: No Condition: Critical Time of Disposition: 06:53
[2018-03-03 05:36] LABS: BUN/Creatinine Ratio 9; Blood Urea Nitrogen 8 mg/dL (7-17); Calcium 9.1 mg/dL (8.4-10.2); Hemolysis Index 0
--- NOTE | 2018-03-03 06:20 | Cat Scan Report ---
FINAL REPORT EXAM: CT HEAD/BRAIN WO CON HISTORY: syncope TECHNIQUE: CT imaging acquired through the head without intravenous contrast. Transaxial reformatio ns are provided. PRIORS: None. FINDINGS: The ventricles, cisterns and sulci are normal. No intraparenchymal or extra-axial mass, hemorrhage, o r mass effect. Villalobos and white-matter differentiation is normal. Normal spherical shape of the globes. Paranasal sinuses and mastoid air cells are clear. No skull or facial fracture visualized. IMPRESSION: No acute intracranial abnormality.
--- NOTE | 2018-03-03 06:25 | Cat Scan Report ---
FINAL REPORT EXAM: CT ANGIO CHEST HISTORY: sob. cp TECHNIQUE: CT imaging obtained through the chest in pulmonary angiographic phase following intraveno us administration of contrast. Transaxial, Coronal and sagittal reformats with maximal intensity proj ections are provided. PRIORS: 11/12/2017 FINDINGS: Borderline enlarged main pulmonary artery (relative to the aorta on axial series 2, image 42) with sa ddle embolism branching into numerous bilateral segments of the pulmonary arterial tree. No intervent ricular bowing is seen at this time. Heart size is normal. No pericardial effusion. Thoracic aorta is normal in course and caliber. A descending aortic stent is present. No periaortic f luid or stranding. No pneumothorax, effusion or focal airspace disease. The central airways are patent. No bronchiectasi s. Imaged portion of the upper abdomen is unremarkable. The superficial soft tissues are unremarkable. No acute bony abnormality or worrisome osseous lesions identified. IMPRESSION: Large saddle pulmonary embolism branching into numerous bilateral segments of the pulmonary arterial tree. Dr. Kat discussed findings with Dr. Rivers at 0522 central Time on 03/03/2018 immediately follow ing the examination.
[2018-03-03] MEDS ORDERED: HEPARIN 10,000 UNITS/10 ML IV ONE (06:49)
[2018-03-03] MEDS ORDERED: ZOFRAN IV ONE (07:19)
[2018-03-03] MEDS ORDERED: DILAUDID IV ONE (07:19)
[2018-03-03] MEDS ORDERED: SODIUM CHLORIDE FLUSH SYRINGE 10 ML IV PRN (07:20)
--- NOTE | 2018-03-03 07:28 | History and Physical Report ---
History of Present Illness Date of examination: 03/03/18 Date of admission: 03/03/18 Chief complaint: Increasing shortness of breath Syncopal episodes 3 History of present illness: 37-year-old female with history of hypercoagulable state and past medical history of pulmonary embolism and DVT, thyrotoxicosis, GERD, hypertension and bipolar disorder comes in for 3 syncopal episodes.. Patient also complains of mid chest pain and bilateral lower extremity edema for 3 days. Chest pain is transient. All her syncopal episodes have been witnessed. Has some shortness of breath also. Shortness of breath more on exertion. Chest pain on exertion too. No diaphoresis. No palpitations. Past Medical History Previous Medical History?: Yes Hypertension: Yes Heart Attack/AMI: (normal stress 10-31-16, normal perfusion scan May 2017 Deep Vein Thrombosis: Yes Pulmonary Embolism: Yes GERD: Yes Seizures: Yes Psychiatric Treatment: Yes (anxiety) Additional medical history: pericarditis, pt states hyperthyroidism, thyroid storm, PE x2, (R lung 05/2016, L lung 01/2017--on coumadin), R leg DVT 03/2017, Graves Disease, heart murmur, blood clot on Aorta Surgical History Past Surgical History?: Yes Additional Surgical History: Left arm surgery 02/2017, Right knee, Rt leg Family History Family history: no significant Social History Smoking Status: Current Some Day Smoker Substance Use Type: None (Medications Home Medications: Home Medications Medication Instructions Recorded Confirmed Last Taken Type ALPRAZolam [Xanax TAB] 0.25 mg PO BID PRN #60 tablet 05/26/17 01/25/18 Unknown Rx Pregabalin [Lyrica] 100 mg PO QAM #30 capsule 05/26/17 01/25/18 Unknown Rx Acetaminophen [Acetaminophen TAB] 650 mg PO Q4H PRN #30 tablet 10/20/17 01/25/18 Unknown Rx Enoxaparin Sodium [Lovenox] 100 mg SQ BID #10 syringe 10/20/17 01/25/18 Unknown Rx Pantoprazole [Protonix TAB] 40 mg PO BID #60 tablet 10/20/17 01/25/18 Unknown Rx Propranolol LA [Inderal LA] 60 mg PO Q12HR #60 capsule 10/20/17 01/25/18 Unknown Rx QUEtiapine [SEROquel] 100 mg PO DAILY #30 tablet 10/20/17 01/25/18 Unknown Rx QUEtiapine [SEROquel] 400 mg PO QHS #30 tablet 10/20/17 01/25/18 Unknown Rx Warfarin [Coumadin] 7.5 mg PO DAILY@1700 #60 tablet 10/20/17 01/25/18 Unknown Rx methIMAzole [Tapazole] 10 mg PO Q8HR #90 tablet 10/20/17 01/25/18 Unknown Rx traZODone [Desyrel] 100 mg PO QHS PRN #30 tablet 10/20/17 01/25/18 Unknown Rx Enoxaparin Sodium [Lovenox] 100 mg SQ BID 5 Days #10 syringe 11/05/17 01/25/18 Unknown Rx Review of systems ROS: Stated complaint: FAINTING SEVERE CHEST AND LEG PAIN VOMITTING SWELL Other details as noted in HPI Constitutional: denies: chills, fever Eyes: denies: eye pain, eye discharge, vision change ENT: denies: ear pain, throat pain Respiratory: shortness of breath. denies: cough, wheezing Cardiovascular: chest pain, edema. denies: palpitations Endocrine: no symptoms reported Gastrointestinal: denies: abdominal pain, nausea, diarrhea Genitourinary: denies: urgency, dysuria, discharge Musculoskeletal: denies: back pain, joint swelling, arthralgia Skin: denies: rash, lesions Neurological: denies: headache, weakness, paresthesias Psychiatric: denies: anxiety, depression Hematological/Lymphatic: denies: easy bleeding, easy bruising Medications and Allergies Allergies Allergy/AdvReac Type Severity Reaction Status Date / Time acetaminophen [From Percocet] Allergy Itching Verified 10/19/17 03:05 garlic Allergy Unknown Verified 10/19/17 03:05 ibuprofen [From Motrin] Allergy Unknown Verified 10/19/17 03:05 oxycodone [From Percocet] Allergy Itching Verified 10/19/17 03:05 peanut oil Allergy Unknown Verified 10/19/17 03:05 Penicillins Allergy Unknown Verified 10/19/17 03:05 Home Medications Medication Instructions Recorded Confirmed Last Taken Type ALPRAZolam [Xanax TAB] 0.25 mg PO BID PRN #60 tablet 05/26/17 01/25/18 Unknown Rx Pregabalin [Lyrica] 100 mg PO QAM #30 capsule 05/26/17 01/25/18 Unknown Rx Acetaminophen [Acetaminophen TAB] 650 mg PO Q4H PRN #30 tablet 10/20/17 01/25/18 Unknown Rx Enoxaparin Sodium [Lovenox] 100 mg SQ BID #10 syringe 10/20/17 01/25/18 Unknown Rx Pantoprazole [Protonix TAB] 40 mg PO BID #60 tablet 10/20/17 01/25/18 Unknown Rx Propranolol LA [Inderal LA] 60 mg PO Q12HR #60 capsule 10/20/17 01/25/18 Unknown Rx QUEtiapine [SEROquel] 100 mg PO DAILY #30 tablet 10/20/17 01/25/18 Unknown Rx QUEtiapine [SEROquel] 400 mg PO QHS #30 tablet 10/20/17 01/25/18 Unknown Rx Warfarin [Coumadin] 7.5 mg PO DAILY@1700 #60 tablet 10/20/17 01/25/18 Unknown Rx methIMAzole [Tapazole] 10 mg PO Q8HR #90 tablet 10/20/17 01/25/18 Unknown Rx traZODone [Desyrel] 100 mg PO QHS PRN #30 tablet 10/20/17 01/25/18 Unknown Rx Enoxaparin Sodium [Lovenox] 100 mg SQ BID 5 Days #10 syringe 11/05/17 01/25/18 Unknown Rx Active Meds: Active Medications Heparin Sodium/Sodium Chloride (Heparin/ 0.45% Nacl-25,000 Unit/500 Ml) 25,000 unit in 500 mls @ 29 mls/hr IV TITR ELLIOTT; Protocol Exam - Constitutional Vitals: Temp Pulse Resp BP Pulse Ox 98.9 F 87 20 121/73 93 03/03/18 06:20 03/03/18 06:20 03/03/18 06:20 03/03/18 06:20 03/03/18 06:20 General appearance: Present: mild distress, well-nourished - EENT Eyes: Present: PERRL ENT: hearing intact, clear oral mucosa - Neck Neck: Present: supple, normal ROM - Respiratory Respiratory effort: normal Respiratory: bilateral: CTA - Cardiovascular Heart rate: 99 Rhythm: regular Heart Sounds: Present: S1 & S2. Absent: rub, click - Extremities Extremities: no ischemia, pulses intact, pulses symmetrical, No edema Peripheral Pulses: within normal limits - Abdominal General gastrointestinal: Present: soft, non-tender, non-distended, normal bowel sounds Female genitourinary: Present: normal - Rectal Rectal Exam: deferred - Integumentary Integumentary: Present: clear, warm, dry - Musculoskeletal Musculoskeletal: gait normal, strength equal bilaterally - Psychiatric Psychiatric: appropriate mood/affect, intact judgment & insight - Neurologic Neurologic: CNII-XII intact, moves all extremities - Allied Health Allied health notes reviewed: nursing, case management Results - Labs CBC & Chem 7: 03/04/18 02:01 03/04/18 02:01 Labs: Laboratory Last Values WBC 7.0 K/mm3 (4.5-11.0) 03/02/18 23:38 RBC 4.68 M/mm3 (3.65-5.03) 03/02/18 23:38 Hgb 10.8 gm/dl (10.1-14.3) 03/02/18 23:38 Hct 35.4 % (30.3-42.9) 03/02/18 23:38 MCV 76 fl (79-97) L 03/02/18 23:38 MCH 23 pg (28-32) L 03/02/18 23:38 MCHC 31 % (30-34) 03/02/18 23:38 RDW 20.7 % (13.2-15.2) H 03/02/18 23:38 Plt Count 237 K/mm3 (140-440) 03/02/18 23:38 Lymph % (Auto) 27.1 % (13.4-35.0) 03/02/18 23:38 [place] % (Auto) 5.6 % (0.0-7.3) 03/02/18 23:38 Eos % (Auto) 3.6 % (0.0-4.3) 03/02/18 23:38 Baso % (Auto) 0.9 % (0.0-1.8) 03/02/18 23:38 Lymph # 1.9 K/mm3 (1.2-5.4) 03/02/18 23:38 [place] # 0.4 K/mm3 (0.0-0.8) 03/02/18 23:38 Eos # 0.3 K/mm3 (0.0-0.4) 03/02/18 23:38 Baso # 0.1 K/mm3 (0.0-0.1) 03/02/18 23:38 Seg Neutrophils % 62.8 % (40.0-70.0) 03/02/18 23:38 Seg Neutrophils # 4.4 K/mm3 (1.8-7.7) 03/02/18 23:38 D-Dimer 1228.97 ng/mlDDU (0-234) H 03/03/18 03:53 Sodium 141 mmol/L (137-145) 03/02/18 03:53 Potassium 4.3 mmol/L (3.6-5.0) 03/02/18 03:53 Chloride 101.7 mmol/L (98-107) 03/02/18 03:53 Carbon Dioxide 28 mmol/L (22-30) 03/02/18 03:53 Anion Gap 16 mmol/L 03/02/18 03:53 BUN 8 mg/dL (7-17) 03/02/18 03:53 Creatinine 0.9 mg/dL (0.7-1.2) 03/02/18 03:53 Estimated GFR > 60 ml/min 03/02/18 03:53 BUN/Creatinine Ratio 9 % 03/02/18 03:53 Glucose 88 mg/dL (65-100) 03/02/18 03:53 Calcium 9.1 mg/dL (8.4-10.2) 03/02/18 03:53 Troponin T < 0.010 ng/mL (0.00-0.029) 03/03/18 05:30 NT-Pro-B Natriuret Pep 1629 pg/mL (0-450) H 03/03/18 03:53 HCG, Qual Negative (Negative) 03/03/18 03:53 Short CBC 03/04/18 Range/Units 02:01 WBC 6.7 (4.5-11.0) K/mm3 Hgb 10.2 (10.1-14.3) gm/dl Hct 33.1 (30.3-42.9) % Plt Count 255 (140-440) K/mm3 BMP 03/04/18 02:01 Sodium 136 L Potassium 4.3 Chloride 95.9 L Carbon Dioxide 28 BUN 8 Creatinine 1.0 Glucose 109 H Calcium 8.6 Liver Function 03/04/18 Range/Units 02:01 Total Bilirubin < 0.20 (0.1-1.2) mg/dL AST 15 (5-40) units/L ALT 18 (7-56) units/L Alkaline Phosphatase 92 (35-129) units/L Albumin 3.9 (3.9-5) g/dL - Imaging and Cardiology EKG: report reviewed (sinus tachycardia) Imaging and Cardiology: CTA Chest IMPRESSION: Large saddle pulmonary embolism branching into numerous bilateral segments of the pulmonary arterial tree. Dr. Kat discussed findings with Dr. Rivers at 0522 central Time on 03/03/2018 immediately following the examination. VL VENOUS DUPLEX LE BILAT HISTORY: Saddle Pulmonary Embolus FINDINGS: There is normal sonographic appearance of the deep venous system bilaterally from the common femoral to the visualized proximal calf veins. There is normal compressibility. On pulsed and color Doppler evaluation there is normal vascular flow and venous waveforms. IMPRESSION: Negative. No evidence of deep venous thrombosis Head CT IMPRESSION: No acute intracranial abnormality. Assessment and Plan Advance Directives: Yes (full code) VTE prophylaxis?: Chemical Plan of care discussed with patient/family: Yes - Patient Problems (1) Acute pulmonary embolism Current Visit: Yes Status: Acute Qualifiers: Pulmonary embolism type: saddle Acute cor pulmonale presence: with acute cor pulmonale Qualified Code(s): I26.02 - Saddle embolus of pulmonary artery with acute cor pulmonale Plan to address problem: IV heparin initiated Vascular surgery requested For possible EKOS Patient has hypercoagulable state Patient needs anticoagulation lifelong (2) Syncope Current Visit: Yes Status: Acute Qualifiers: Syncope type: unspecified Qualified Code(s): R55 - Syncope and collapse Plan to address problem: Secondary to pulmonary embolism No further workup Echocardiogram ordered (3) Chest pain Current Visit: Yes Status: Acute Qualifiers: Chest pain type: unspecified Qualified Code(s): R07.9 - Chest pain, unspecified Plan to address problem: Secondary to pulmonary embolism Patient had stress test in 2018 which was negative No further workup (4) Hypertension Current Visit: Yes Status: Chronic Qualifiers: Hypertension type: essential hypertension Qualified Code(s): I10 - Essential (primary) hypertension Plan to address problem: Continue antihypertensive (5) GERD (gastroesophageal reflux disease) Current Visit: Yes Status: Chronic Qualifiers: Esophagitis presence: with esophagitis Qualified Code(s): K21.0 - Gastro- esophageal reflux disease with esophagitis Plan to address problem: Continue PPIs (6) Anticoagulation monitoring, INR range 2.5-3.5 Current Visit: Yes Status: Chronic Plan to address problem: Coumadin dose to be adjusted so that the INR is between 2.5 and 3.5 (7) Bipolar disorder Current Visit: Yes Status: Chronic Qualifiers: Active/Remission status: in remission of unspecified degree Qualified Code(s): F31.70 - Bipolar disorder, currently in remission, most recent episode unspecified Plan to address problem: Continue Seroquel (8) Hyperthyroidism Current Visit: Yes Status: Chronic Plan to address problem: Continue methimazole (9) Peripheral neuropathy Current Visit: Yes Status: Chronic Plan to address problem: Continue Lyrica (10) DVT prophylaxis Current Visit: No Status: Resolved Plan to address problem: Patient already on IV heparin and Coumadin
[2018-03-03 07:31] LABS: Partial Thromboplastin Time 26.4 Sec. (24.2-36.6)
[2018-03-03] MEDS: HEPARIN/ 0.45% NACL-25,000 UNIT/500 ML 25,000 UNIT/500 ML BAG IV SCH (08:17)
[2018-03-03 08:31] LABS: Hematocrit 33.4 % (30.3-42.9); Hemoglobin 10.5 gm/dl (10.1-14.3)
[2018-03-03 08:53] LABS: INR 1.16 (0.87-1.13)
[2018-03-03 09:14] LABS: Partial Thromboplastin Time 79.6 Sec. (24.2-36.6)
--- NOTE | 2018-03-03 09:42 | Progress Note ---
Assessment and Plan Patient Problems (1) Acute pulmonary embolism Current Visit: Yes Status: Acute Qualifiers: Pulmonary embolism type: saddle Acute cor pulmonale presence: with acute cor pulmonale Qualified Code(s): I26.02 - Saddle embolus of pulmonary artery with acute cor pulmonale Plan to address problem: IV heparin initiated Vascular surgery consult appreciated For possible EKOS Patient has hypercoagulable state Patient needs anticoagulation lifelong (2) Syncope Current Visit: Yes Status: Acute Qualifiers: Syncope type: unspecified Qualified Code(s): R55 - Syncope and collapse Plan to address problem: Secondary to pulmonary embolism No further workup Echocardiogram done (3) Chest pain Current Visit: Yes Status: Acute Qualifiers: Chest pain type: unspecified Qualified Code(s): R07.9 - Chest pain, unspecified Plan to address problem: Secondary to pulmonary embolism Patient had stress test in 2018 which was negative No further workup (4) Hypertension Current Visit: Yes Status: Chronic Qualifiers: Hypertension type: essential hypertension Qualified Code(s): I10 - Essential (primary) hypertension Plan to address problem: Continue antihypertensive (5) GERD (gastroesophageal reflux disease) Current Visit: Yes Status: Chronic Qualifiers: Esophagitis presence: with esophagitis Qualified Code(s): K21.0 - Gastro- esophageal reflux disease with esophagitis Plan to address problem: Continue PPIs (6) Anticoagulation monitoring, INR range 2.5-3.5 Current Visit: Yes Status: Chronic Plan to address problem: Coumadin dose to be adjusted so that the INR is between 2.5 and 3.5 (7) Bipolar disorder Current Visit: Yes Status: Chronic Qualifiers: Active/Remission status: in remission of unspecified degree Qualified Code(s): F31.70 - Bipolar disorder, currently in remission, most recent episode unspecified Plan to address problem: Continue Seroquel (8) Hyperthyroidism Current Visit: Yes Status: Chronic Plan to address problem: Continue methimazole (9) Peripheral neuropathy Current Visit: Yes Status: Chronic Plan to address problem: Continue Lyrica (10) DVT prophylaxis Current Visit: No Status: Resolved Plan to address problem: Patient already on IV heparin and Coumadin Subjective Date of service: 03/04/18 Principal diagnosis: acute pulmonary embolism Interval history: Resting comfortably No further chest pain Objective - Constitutional Vitals: Vital Signs - 12hr 03/02/18 03/03/1819 23:10 04:49 04:51 Temperature 97.5 F L Pulse Rate 108 H 83 Respiratory 20 18 Rate Blood Pressure 113/76 114/66 Blood Pressure 118/66 [Right] O2 Sat by Pulse 100 96 Oximetry 03/03/18 03/03/18 03/03/18 05:00 05:15 05:30 Temperature Pulse Rate Respiratory Rate Blood Pressure 112/62 127/86 97/78 Blood Pressure [Right] O2 Sat by Pulse Oximetry 03/03/18 03/03/18 03/03/18 05:46 06:18 06:20 Temperature 98.9 F Pulse Rate 90 87 Respiratory 22 20 Rate Blood Pressure 106/69 106/69 Blood Pressure 121/73 [Right] O2 Sat by Pulse 84 93 Oximetry 03/03/18 03/03/18 03/03/18 06:36 06:46 07:00 Temperature Pulse Rate 103 H 99 H 93 H Respiratory 22 20 21 Rate Blood Pressure 121/73 97/78 139/83 Blood Pressure [Right] O2 Sat by Pulse 99 100 100 Oximetry 03/03/18 03/03/18 03/03/18 07:16 07:30 07:46 Temperature Pulse Rate 94 H 99 H 100 H Respiratory 22 23 18 Rate Blood Pressure 139/83 122/80 137/86 Blood Pressure [Right] O2 Sat by Pulse 100 97 100 Oximetry 03/03/18 03/03/18 08:00 08:16 Temperature Pulse Rate 101 H 105 H Respiratory 24 16 Rate Blood Pressure 121/75 121/75 Blood Pressure [Right] O2 Sat by Pulse 100 96 Oximetry General appearance: Present: no acute distress, well-nourished - EENT Eyes: PERRL, EOM intact ENT: hearing intact, clear oral mucosa Ears: bilateral: normal - Neck Neck: supple, normal ROM - Respiratory Respiratory effort: normal Respiratory: bilateral: CTA - Breasts Breasts: normal - Cardiovascular Heart rate: 84 Rhythm: regular Heart Sounds: Present: S1 & S2. Absent: gallop, rub Extremities: pulses intact, No edema, normal color, Full ROM - Gastrointestinal General gastrointestinal: Present: soft, non-tender, non-distended, normal bowel sounds Rectal Exam: deferred - Genitourinary Female genitourinary: normal - Integumentary Integumentary: clear, warm, dry - Musculoskeletal Musculoskeletal: 1, strength equal bilaterally - Neurologic Neurologic: moves all extremities - Psychiatric Psychiatric: memory intact, appropriate mood/affect, intact judgment & insight - Allied health notes Allied health notes reviewed: nursing, case management - Labs CBC & Chem 7: 03/04/18 02:01 03/04/18 02:01 Labs: Abnormal lab results 03/02/18 03/03/18 03/03/18 Range/Units 23:38 03:53 03:53 MCV 76 L (79-97) fl MCH 23 L (28-32) pg RDW 20.7 H (13.2-15.2) % PT (12.2-14.9) Sec. INR (0.87-1.13) APTT (24.2-36.6) Sec. D-Dimer 1228.97 H (0-234) ng/mlDDU NT-Pro-B Natriuret Pep 1629 H (0-450) pg/mL 03/03/18 Range/Units 08:10 MCV (79-97) fl MCH (28-32) pg RDW (13.2-15.2) % PT 15.2 H (12.2-14.9) Sec. INR 1.16 H (0.87-1.13) APTT 79.6 H* (24.2-36.6) Sec. D-Dimer (0-234) ng/mlDDU NT-Pro-B Natriuret Pep (0-450) pg/mL
--- NOTE | 2018-03-03 10:05 | Consultation ---
History of Present Illness - Reason for Consult Consult date: 03/03/18 Pulmonary Embolus Requesting physician: FARHAT MCCORD III - History of Present Illness The patient is a 37-year-old female with a past medical history significant for a pulmonary embolus and a descending aortic thrombus that was treated with a stent graft placement at [facility] in December 2017. Since that time the patient has been on anticoagulation and was initially on Eliquis however she states she was switched to Coumadin because the Eliquis was not equally treated in her thrombus. She presented to the emergency department today with complaints of witnessed syncopal episodes and chest pain with lateral lower extremity swelling that had an present for approximately 1 week. Her workup included a CTA of her chest that demonstrated a moderately sized saddle pulmonary embolus. He has no other complaints at this time. Past History Past Medical History: GERD, pulmonary embolism, other (descending aortic thrombus, hypercoagulable state, bipolar disorder, schizophrenia) Past Surgical History: Other (descending aortic stent graft placement, left arm fasciotomy with repair of artery) Social history: other (questionable living arrangement per the patient) Medications and Allergies Allergies Allergy/AdvReac Type Severity Reaction Status Date / Time acetaminophen [From Percocet] Allergy Itching Verified 10/19/17 03:05 garlic Allergy Unknown Verified 10/19/17 03:05 ibuprofen [From Motrin] Allergy Unknown Verified 10/19/17 03:05 oxycodone [From Percocet] Allergy Itching Verified 10/19/17 03:05 peanut oil Allergy Unknown Verified 10/19/17 03:05 Penicillins Allergy Unknown Verified 10/19/17 03:05 Home Medications Medication Instructions Recorded Confirmed Last Taken Type ALPRAZolam [Xanax TAB] 0.25 mg PO BID PRN #60 tablet 05/26/17 01/25/18 Unknown Rx Pregabalin [Lyrica] 100 mg PO QAM #30 capsule 05/26/17 01/25/18 Unknown Rx Acetaminophen [Acetaminophen TAB] 650 mg PO Q4H PRN #30 tablet 10/20/17 01/25/18 Unknown Rx Enoxaparin Sodium [Lovenox] 100 mg SQ BID #10 syringe 10/20/17 01/25/18 Unknown Rx Pantoprazole [Protonix TAB] 40 mg PO BID #60 tablet 10/20/17 01/25/18 Unknown Rx Propranolol LA [Inderal LA] 60 mg PO Q12HR #60 capsule 10/20/17 01/25/18 Unknown Rx QUEtiapine [SEROquel] 100 mg PO DAILY #30 tablet 10/20/17 01/25/18 Unknown Rx QUEtiapine [SEROquel] 400 mg PO QHS #30 tablet 10/20/17 01/25/18 Unknown Rx Warfarin [Coumadin] 7.5 mg PO DAILY@1700 #60 tablet 10/20/17 01/25/18 Unknown Rx methIMAzole [Tapazole] 10 mg PO Q8HR #90 tablet 10/20/17 01/25/18 Unknown Rx traZODone [Desyrel] 100 mg PO QHS PRN #30 tablet 10/20/17 01/25/18 Unknown Rx Enoxaparin Sodium [Lovenox] 100 mg SQ BID 5 Days #10 syringe 11/05/17 01/25/18 Unknown Rx Active Meds: Active Medications Acetaminophen (Tylenol) 650 mg PO Q4H PRN PRN Reason: Pain MILD(1-3)/Fever >100.5/OSEGUERA Hydromorphone HCl (Dilaudid) 1 mg IV Q3H PRN PRN Reason: Pain , Severe (7-10) Heparin Sodium/Sodium Chloride (Heparin/ 0.45% Nacl-25,000 Unit/500 Ml) 25,000 unit in 500 mls @ 29 mls/hr IV TITR ELLIOTT; Protocol Last Admin: 03/03/18 08:17 Dose: 1,450 units/hr, 29 mls/hr Documented by: Sodium Chloride (Nacl 0.9% 1000 Ml) 1,000 mls @ 100 mls/hr IV DIRECT ELLIOTT Ondansetron HCl (Zofran) 4 mg IV Q8H PRN PRN Reason: Nausea And Vomiting Oxycodone/Acetaminophen (Percocet 5/325) 1 tab PO Q6H PRN PRN Reason: Pain, Moderate (4-6) Sodium Chloride (Sodium Chloride Flush Syringe 10 Ml) 10 ml IV BID ELLIOTT Sodium Chloride (Sodium Chloride Flush Syringe 10 Ml) 10 ml IV PRN PRN PRN Reason: LINE FLUSH Review of Systems All systems: negative Exam - Constitutional Vitals: Temp Pulse Resp BP Pulse Ox 98.9 F 105 H 16 121/75 96 03/03/18 06:20 03/03/18 08:16 03/03/18 08:16 03/03/18 08:16 03/03/18 08:16 General appearance: Present: no acute distress - Respiratory Respiratory effort: normal, other (on 2 L nasal cannula) - Cardiovascular Heart rate: 105 Rhythm: regular - Extremities Extremities: no ischemia, pulses intact Extremity abnormal: edema (bilateral lower extremities) Peripheral Pulses: within normal limits - Abdominal General gastrointestinal: Present: soft, non-tender, non-distended Female genitourinary: Present: deferred - Rectal Rectal Exam: deferred - Integumentary Integumentary: Present: clear - Musculoskeletal Musculoskeletal: strength equal bilaterally - Psychiatric Psychiatric: appropriate mood/affect, cooperative - Neurologic Neurologic: moves all extremities Results - Labs CBC & Chem 7: 03/03/18 08:10 03/02/18 03:53 Labs: Abnormal lab results 03/02/18 03/03/18 03/03/18 Range/Units 23:38 03:53 03:53 MCV 76 L (79-97) fl MCH 23 L (28-32) pg RDW 20.7 H (13.2-15.2) % PT (12.2-14.9) Sec. INR (0.87-1.13) APTT (24.2-36.6) Sec. D-Dimer 1228.97 H (0-234) ng/mlDDU NT-Pro-B Natriuret Pep 1629 H (0-450) pg/mL 03/03/18 Range/Units 08:10 MCV (79-97) fl MCH (28-32) pg RDW (13.2-15.2) % PT 15.2 H (12.2-14.9) Sec. INR 1.16 H (0.87-1.13) APTT 79.6 H* (24.2-36.6) Sec. D-Dimer (0-234) ng/mlDDU NT-Pro-B Natriuret Pep (0-450) pg/mL - Imaging and Cardiology CT scan - chest: image reviewed Venous US: pending Assessment and Plan The patient is a 37-year-old female with an obvious hypercoagulable state and a history of aortic thrombus treated with a stent graft. She is maintained on Coumadin and states she has been taking this however her INR was within the normal range. She presents with a saddle pulmonary embolus and had an ECHO today, with a wet read which I discussed with Dr. Correa with [facility], demonstrating mild left heart strain. Given the patient's complicated history which she states included thrombus involving her aortic valve. The patient states that this thrombus was removed during her procedure at [facility] however given her noncompliance with her anticoagulation I believe the patient needs a HANK to rule out thrombus involving the valve or heart prior to discussing or proceeding with intervention for her pulmonary embolus as the risk of cerebral embolic event would be increased if she has any retained thrombus. I will also order a venous duplex of her lower extremity to evaluate for any remaining thrombus. Depending on the location of the patient's thrombus, her noncompliance, and the extent of her pulmonary embolus, the patient may require an IVC filter prior to her discharge.
[2018-03-03] MEDS: DILAUDID IV PRN ×4 (10:10→23:02)
[2018-03-03] MEDS ORDERED: DILAUDID ONE ×5 (10:13→23:02)
[2018-03-03] MEDS ORDERED: PERCOCET 5/325 ONE ×2 (12:45→20:12)
[2018-03-03] MEDS: PERCOCET 5/325 PO PRN ×2 (12:48→20:16)
[2018-03-03] MEDS ORDERED: NACL 0.9% 1000 ML 1,000 ML ONE (18:13)
--- NOTE | 2018-03-03 19:31 | Vascular Lab Report ---
FINAL REPORT EXAM: VL VENOUS DUPLEX LE BILAT HISTORY: Saddle Pulmonary Embolus TECHNIQUE: Ultrasound deep venous system of both lower extremities with pulsed and color Doppler bruno luation PRIORS: None. FINDINGS: There is normal sonographic appearance of the deep venous system bilaterally from the common femoral to the visualized proximal calf veins. There is normal compressibility. On pulsed and color Doppler evaluation there is normal vascular flow and venous waveforms. IMPRESSION: Negative. No evidence of deep venous thrombosis
[2018-03-03] MEDS: SODIUM CHLORIDE FLUSH SYRINGE 10 ML IV SCH ×2 (19:46→22:28)
[2018-03-03] MEDS: NACL 0.9% 1000 ML 1,000 ML IV SCH (19:49)
[2018-03-03] MEDS ORDERED: ZOFRAN ONE (20:12)
[2018-03-03] MEDS: ZOFRAN IV PRN (20:16)
--- NOTE | 2018-03-03 22:18 | Consultation ---
History of Present Illness Consult date: 03/03/18 Requesting physician: JESSICA THOMSON Reason for consult: pulmonary embolism History of present illness: Patient is a 37-year-old female that presents emergency room with complaints of syncopal episode 3 today. Patient also complains of mid chest pain 1 week and bilateral lower extremity edema 3 days.Patient states that her syncopal episode of all been witnessed. Patient also complains of nausea associated vomiting. She had a CTA done which shows a saddle embolism. She is currently on heparin infusion and I have been consulted for critical care management. She states she had a PE about a year ago. Was on Eliquis, but switched to coumadin when she developed another PE on Eliquis. Additional medical history: pericarditis, pt states hyperthyroidism, thyroid storm, PE x2, (R lung 05/2016, L lung 01/2017--on coumadin), R leg DVT 03/2017, Graves Disease, heart murmur, blood clot on Aorta Past History Past Medical History: GERD, pulmonary embolism, other (descending aortic thrombus, hypercoagulable state, bipolar disorder, schizophrenia) Past Surgical History: Other (descending aortic stent graft placement, left arm fasciotomy with repair of artery) Social history: smoking, other (questionable living arrangement per the patient) Medications and Allergies Allergies Allergy/AdvReac Type Severity Reaction Status Date / Time acetaminophen [From Percocet] Allergy Itching Verified 10/19/17 03:05 garlic Allergy Unknown Verified 10/19/17 03:05 ibuprofen [From Motrin] Allergy Unknown Verified 10/19/17 03:05 oxycodone [From Percocet] Allergy Itching Verified 10/19/17 03:05 peanut oil Allergy Unknown Verified 10/19/17 03:05 Penicillins Allergy Unknown Verified 10/19/17 03:05 Home Medications Medication Instructions Recorded Confirmed Last Taken Type ALPRAZolam [Xanax TAB] 0.25 mg PO BID PRN #60 tablet 05/26/17 01/25/18 Unknown Rx Pregabalin [Lyrica] 100 mg PO QAM #30 capsule 05/26/17 01/25/18 Unknown Rx Acetaminophen [Acetaminophen TAB] 650 mg PO Q4H PRN #30 tablet 10/20/17 01/25/18 Unknown Rx Enoxaparin Sodium [Lovenox] 100 mg SQ BID #10 syringe 10/20/17 01/25/18 Unknown Rx Pantoprazole [Protonix TAB] 40 mg PO BID #60 tablet 10/20/17 01/25/18 Unknown Rx Propranolol LA [Inderal LA] 60 mg PO Q12HR #60 capsule 10/20/17 01/25/18 Unknown Rx QUEtiapine [SEROquel] 100 mg PO DAILY #30 tablet 10/20/17 01/25/18 Unknown Rx QUEtiapine [SEROquel] 400 mg PO QHS #30 tablet 10/20/17 01/25/18 Unknown Rx Warfarin [Coumadin] 7.5 mg PO DAILY@1700 #60 tablet 10/20/17 01/25/18 Unknown Rx methIMAzole [Tapazole] 10 mg PO Q8HR #90 tablet 10/20/17 01/25/18 Unknown Rx traZODone [Desyrel] 100 mg PO QHS PRN #30 tablet 10/20/17 01/25/18 Unknown Rx Enoxaparin Sodium [Lovenox] 100 mg SQ BID 5 Days #10 syringe 11/05/17 01/25/18 Unknown Rx Active Meds: Active Medications Acetaminophen (Tylenol) 650 mg PO Q4H PRN PRN Reason: Pain MILD(1-3)/Fever >100.5/OSEGUERA Hydromorphone HCl (Dilaudid) 1 mg IV Q3H PRN PRN Reason: Pain , Severe (7-10) Last Admin: 03/03/18 20:16 Dose: 1 mg Documented by: Heparin Sodium/Sodium Chloride (Heparin/ 0.45% Nacl-25,000 Unit/500 Ml) 25,000 unit in 500 mls @ 29 mls/hr IV TITR ELLIOTT; Protocol Last Titration: 03/03/18 17:45 Dose: 1,650 units/hr, 33 mls/hr Documented by: Sodium Chloride (Nacl 0.9% 1000 Ml) 1,000 mls @ 100 mls/hr IV DIRECT ELLIOTT Last Admin: 03/03/18 19:49 Dose: 100 mls/hr Documented by: Ondansetron HCl (Zofran) 4 mg IV Q8H PRN PRN Reason: Nausea And Vomiting Last Admin: 03/03/18 20:16 Dose: 4 mg Documented by: Oxycodone/Acetaminophen (Percocet 5/325) 1 tab PO Q6H PRN PRN Reason: Pain, Moderate (4-6) Last Admin: 03/03/18 20:16 Dose: 1 tab Documented by: Sodium Chloride (Sodium Chloride Flush Syringe 10 Ml) 10 ml IV BID ELLIOTT Last Admin: 03/03/18 19:46 Dose: 10 ml Documented by: Sodium Chloride (Sodium Chloride Flush Syringe 10 Ml) 10 ml IV PRN PRN PRN Reason: LINE FLUSH Review of Systems Constitutional: sweats, fatigue, weakness, no weight loss, no weight gain, no fever, no chills Cardiovascular: chest pain, syncope, lightheadedness, shortness of breath, no orthopnea, no palpitations, no rapid/irregular heart beat, no edema, no high blood pressure Respiratory: shortness of breath, dyspnea on exertion, no cough, no cough with sputum, no hemoptysis, no congestion, no wheezing, no pleurisy Gastrointestinal: nausea, vomiting, no abdominal pain, no diarrhea, no constipation, no change in bowel habits, no hematemesis, no melena Neurological: head injury, transient paralysis, paralysis, weakness, parathesias, seizures, vertigo, headaches Physical Examination Vital signs: Vital Signs Temp Pulse Resp BP Pulse Ox 97.5 F L 108 H 20 113/76 100 03/02/18 23:10 03/02/18 23:10 03/02/18 23:10 03/02/18 23:10 03/02/18 23:10 neral Limitations: No Limitations General appearance: alert, in no apparent distress - Head Head exam: Present: atraumatic, normocephalic - Eye Eye exam: Present: normal appearance - ENT ENT exam: Present: mucous membranes moist - Neck Neck exam: Present: normal inspection - Respiratory Respiratory exam: Present: normal lung sounds bilaterally. Absent: respiratory distress - Cardiovascular Cardiovascular Exam: Present: regular rate, normal rhythm. Absent: systolic murmur, diastolic murmur, rubs, gallop - GI/Abdominal GI/Abdominal exam: Present: soft, normal bowel sounds. Absent: distended, tenderness, guarding, rebound - Extremities Exam Extremities exam: Present: pedal edema. Absent: tenderness, calf tenderness - Back Exam Back exam: Present: normal inspection - Neurological Exam Neurological exam: Present: alert, oriented X3 - Psychiatric Psychiatric exam: Present: normal affect, normal mood - Skin Skin exam: Present: warm, dry, intact, normal color. Absent: rash Results - Laboratory Findings CBC and BMP: 03/03/18 08:10 03/02/18 03:53 PT/INR, D-dimer PT 15.2 Sec. (12.2-14.9) H 03/03/18 08:10 INR 1.16 (0.87-1.13) H 03/03/18 08:10 D-Dimer 1228.97 ng/mlDDU (0-234) H 03/03/18 03:53 Abnormal lab findings: Abnormal Labs 03/02/18 03/03/18 03/03/18 23:38 03:53 03:53 MCV 76 L MCH 23 L RDW 20.7 H PT INR APTT D-Dimer 1228.97 H Heparin Anti-Xa Level NT-Pro-B Natriuret Pep 1629 H 03/03/18 03/03/18 08:10 15:38 MCV MCH RDW PT 15.2 H INR 1.16 H APTT 79.6 H* D-Dimer Heparin Anti-Xa Level 0.12 L NT-Pro-B Natriuret Pep Assessment and Plan Syncope Saddle pulmonary embolism Hypercoagulable state Tobacco abuse disorder Microcytic anemia -Anticoagulation with heparin, resume coumadin -Need for medical compliance discussed -Smoking cessation counselling done at the bedside -Agree with 2D Echocardiogram to evaluate for right heart strain and pulmonary HTN. Patient has elevated BNP -Resume chronic home medications -Hematology outpatient follow up -Patient can be admitted to the IMCU with close monitoring while on anticoagulation.
[2018-03-03] MEDS: TYLENOL PO PRN (23:02)
[2018-03-03] MEDS ORDERED: TYLENOL ONE (23:06)
[2018-03-04] MEDS: HEPARIN/ 0.45% NACL-25,000 UNIT/500 ML 25,000 UNIT/500 ML BAG IV SCH ×2 (01:00→18:08)
[2018-03-04] MEDS: PERCOCET 5/325 PO PRN ×4 (02:00→21:49)
[2018-03-04] MEDS: DILAUDID IV PRN ×7 (02:00→21:01)
[2018-03-04] MEDS ORDERED: DILAUDID ONE ×4 (02:10→11:21)
[2018-03-04] MEDS ORDERED: PERCOCET 5/325 ONE ×2 (02:11→07:49)
[2018-03-04 02:13] LABS: Hematocrit 33.1 % (30.3-42.9); Hemoglobin 10.2 gm/dl (10.1-14.3); Mean Corpuscular HGB Conc 31 % (30-34); Mean Corpuscular Volume 74 fl (79-97); Platelet Count 255 K/mm3 (140-440); Red Cell Distribution Width 19.7 % (13.2-15.2)
[2018-03-04 02:29] LABS: Alanine Aminotransferase 18 units/L (7-56); Albumin 3.9 g/dL (3.9-5); BUN/Creatinine Ratio 8; Blood Urea Nitrogen 8 mg/dL (7-17); Calcium 8.6 mg/dL (8.4-10.2); Hemolysis Index 2
[2018-03-04] MEDS ORDERED: ZOFRAN ONE ×2 (03:54→12:13)
[2018-03-04] MEDS ORDERED: TYLENOL ONE ×2 (03:55→07:30)
[2018-03-04] MEDS: TYLENOL PO PRN ×5 (03:57→22:52)
[2018-03-04] MEDS: ZOFRAN IV PRN ×2 (03:58→12:22)
[2018-03-04 04:05] LABS: Total Cells Counted 100
[2018-03-04 04:06] LABS: Band Neutrophils # (Manual) 0.3 K/mm3; Basophils % (Manual) 0 % (0.0-1.8)
[2018-03-04 04:07] LABS: Anisocytosis 1+; Platelet Estimate Consistent w Auto; Target Cells Few
[2018-03-04] MEDS ORDERED: HYDROGEN PEROXIDE ONE (05:55)
[2018-03-04] MEDS ORDERED: HYDROGEN PEROXIDE TP ONE (06:28)
[2018-03-04] MEDS ORDERED: NACL 0.9% 1000 ML 1,000 ML ONE (08:04)
[2018-03-04] MEDS: NACL 0.9% 1000 ML 1,000 ML IV SCH ×2 (08:24→18:07)
[2018-03-04] MEDS: SODIUM CHLORIDE FLUSH SYRINGE 10 ML IV SCH ×2 (10:29→23:01)
[2018-03-04] MEDS ORDERED: TYLENOL PO PRN (11:13)
[2018-03-04] MEDS ORDERED: DESYREL PO PRN (11:13)
[2018-03-04] MEDS: INDERAL LA PO SCH ×2 (12:19→22:55)
--- NOTE | 2018-03-04 13:45 | Consultation ---
History of Present Illness Consult date: 03/04/18 History of present illness: The patient is a 37-year-old female with a past medical history significant for a pulmonary embolus and a descending aortic thrombus that was treated with a stent graft placement at [facility] in December 2017. Since that time the patient has been on anticoagulation and was initially on Eliquis however she states she was subsequently switched to Coumadin. She presented to the emergency department with complaints of syncopal episodes and chest pain with lateral lower extremity swelling that had an present for approximately 1 week. INR on presentation was sub-therapeutic Her workup included a CTA of her chest that demonstrated a moderately sized saddle pulmonary embolus. TTE revealed moderate RV dilation with mild RV dysfunction. We have been asked to perform HANK to evaluate aortic valve/aorta for thrombus prior to vascuar procedure. ECG reveals sinus rhythm, anterior and inferior ST depression She has no other complaints at this time. Past History Past Medical History: GERD, pulmonary embolism, other (descending aortic thrombus, hypercoagulable state, bipolar disorder, schizophrenia) Past Surgical History: Other (descending aortic stent graft placement, left arm fasciotomy with repair of artery) Social history: smoking, other (questionable living arrangement per the patient) Medications and Allergies Allergies Allergy/AdvReac Type Severity Reaction Status Date / Time acetaminophen [From Percocet] Allergy Itching Verified 10/19/17 03:05 garlic Allergy Unknown Verified 10/19/17 03:05 ibuprofen [From Motrin] Allergy Unknown Verified 10/19/17 03:05 oxycodone [From Percocet] Allergy Itching Verified 10/19/17 03:05 peanut oil Allergy Unknown Verified 10/19/17 03:05 Penicillins Allergy Unknown Verified 10/19/17 03:05 Home Medications Medication Instructions Recorded Confirmed Last Taken Type ALPRAZolam [Xanax TAB] 0.25 mg PO BID PRN #60 tablet 05/26/17 01/25/18 Unknown Rx Pregabalin [Lyrica] 100 mg PO QAM #30 capsule 05/26/17 01/25/18 Unknown Rx Acetaminophen [Acetaminophen TAB] 650 mg PO Q4H PRN #30 tablet 10/20/17 01/25/18 Unknown Rx Enoxaparin Sodium [Lovenox] 100 mg SQ BID #10 syringe 10/20/17 01/25/18 Unknown Rx Pantoprazole [Protonix TAB] 40 mg PO BID #60 tablet 10/20/17 01/25/18 Unknown Rx Propranolol LA [Inderal LA] 60 mg PO Q12HR #60 capsule 10/20/17 01/25/18 Unknown Rx QUEtiapine [SEROquel] 100 mg PO DAILY #30 tablet 10/20/17 01/25/18 Unknown Rx QUEtiapine [SEROquel] 400 mg PO QHS #30 tablet 10/20/17 01/25/18 Unknown Rx Warfarin [Coumadin] 7.5 mg PO DAILY@1700 #60 tablet 10/20/17 01/25/18 Unknown Rx methIMAzole [Tapazole] 10 mg PO Q8HR #90 tablet 10/20/17 01/25/18 Unknown Rx traZODone [Desyrel] 100 mg PO QHS PRN #30 tablet 10/20/17 01/25/18 Unknown Rx Enoxaparin Sodium [Lovenox] 100 mg SQ BID 5 Days #10 syringe 11/05/17 01/25/18 Unknown Rx Active Meds: Active Medications Acetaminophen (Tylenol) 650 mg PO Q4H PRN PRN Reason: Pain MILD(1-3)/Fever >100.5/OSEGUERA Last Admin: 03/04/18 11:24 Dose: 650 mg Documented by: Alprazolam (Xanax) 0.25 mg PO BID PRN PRN Reason: Anxiety Hydromorphone HCl (Dilaudid) 1 mg IV Q3H PRN PRN Reason: Pain , Severe (7-10) Last Admin: 03/04/18 11:24 Dose: 1 mg Documented by: Heparin Sodium/Sodium Chloride (Heparin/ 0.45% Nacl-25,000 Unit/500 Ml) 25,000 unit in 500 mls @ 29 mls/hr IV TITR ELLIOTT; Protocol Last Titration: 03/04/18 08:40 Dose: 1,950 units/hr, 39 mls/hr Documented by: Sodium Chloride (Nacl 0.9% 1000 Ml) 1,000 mls @ 100 mls/hr IV DIRECT ELLIOTT Last Admin: 03/04/18 08:24 Dose: 100 mls/hr Documented by: Methimazole (Tapazole) 10 mg PO Q8HR ELLIOTT Ondansetron HCl (Zofran) 4 mg IV Q8H PRN PRN Reason: Nausea And Vomiting Last Admin: 03/04/18 12:22 Dose: 4 mg Documented by: Oxycodone/Acetaminophen (Percocet 5/325) 1 tab PO Q6H PRN PRN Reason: Pain, Moderate (4-6) Last Admin: 03/04/18 08:10 Dose: 1 tab Documented by: Pantoprazole Sodium (Protonix) 40 mg PO BID ELLIOTT Pregabalin (Lyrica) 100 mg PO QAM [facility] Propranolol HCl (Inderal La) 60 mg PO Q12HR [facility] Last Admin: 03/04/18 12:19 Dose: 60 mg Documented by: Quetiapine Fumarate (Seroquel) 400 mg PO QHS [facility] Quetiapine Fumarate (Seroquel) 100 mg PO QDAY [facility] Last Admin: 03/04/18 12:20 Dose: 100 mg Documented by: Sodium Chloride (Sodium Chloride Flush Syringe 10 Ml) 10 ml IV BID [facility] Last Admin: 03/04/18 10:29 Dose: 10 ml Documented by: Sodium Chloride (Sodium Chloride Flush Syringe 10 Ml) 10 ml IV PRN PRN PRN Reason: LINE FLUSH Trazodone HCl (Desyrel) 100 mg PO QHS PRN PRN Reason: Sleep Warfarin Sodium (Coumadin) 7.5 mg PO DAILY@1700 ELLIOTT; Protocol Physical Examination Vital Signs Temp Pulse Resp BP Pulse Ox 97.5 F L 108 H 20 113/76 100 03/02/18 23:10 03/02/18 23:10 03/02/18 23:10 03/02/18 23:10 03/02/18 23:10 General appearance: no acute distress Neck: Positive: neck supple Cardiac: Positive: Reg Rate and Rhythm, Audible Murmur (soft systolic murmur at LUSB) Lungs: Positive: clear to auscultation, Normal Breath Sounds Neuro: Positive: Grossly Intact Abdomen: Positive: Soft, Active Bowel Sounds Extremities: Absent: edema Results 03/04/18 02:01 03/04/18 02:01 Cardiac Enzymes 03/04/18 Range/Units 02:01 AST 15 (5-40) units/L CBC 03/04/18 Range/Units 02:01 WBC 6.7 (4.5-11.0) K/mm3 RBC 4.50 (3.65-5.03) M/mm3 Hgb 10.2 (10.1-14.3) gm/dl Hct 33.1 (30.3-42.9) % Plt Count 255 (140-440) K/mm3 Comprehensive Metabolic Panel 03/04/18 Range/Units 02:01 Sodium 136 L (137-145) mmol/L Potassium 4.3 (3.6-5.0) mmol/L Chloride 95.9 L (98-107) mmol/L Carbon Dioxide 28 (22-30) mmol/L BUN 8 (7-17) mg/dL Creatinine 1.0 (0.7-1.2) mg/dL Glucose 109 H (65-100) mg/dL Calcium 8.6 (8.4-10.2) mg/dL AST 15 (5-40) units/L ALT 18 (7-56) units/L Alkaline Phosphatase 92 (35-129) units/L Total Protein 6.3 (6.3-8.2) g/dL Albumin 3.9 (3.9-5) g/dL Assessment and Plan Recurrent PE H/O Aortic thrombus Hypercoagulable state. Plan: Per Vascular surgery request, will arrange for HANK tomorrow.
[2018-03-04] MEDS: TAPAZOLE PO SCH ×2 (14:31→22:51)
--- NOTE | 2018-03-04 15:18 | Progress Note ---
Assessment and Plan Patient alert, awake. Complaining shortness of breath on exertion.Patient is on 2 litres O2. O2 saturation 92%.Patient saddle pulmonary emboli. Patient is on I/V Heparin.Patient scheduled for HANK. - Patient Problems (1) Acute pulmonary embolism Current Visit: Yes Status: Acute Qualifiers: Pulmonary embolism type: saddle Acute cor pulmonale presence: with acute cor pulmonale Qualified Code(s): I26.02 - Saddle embolus of pulmonary artery with acute cor pulmonale Plan to address problem: Patient is on I/V Heparin. O2 supplementation. (2) Dyspnea Current Visit: Yes Status: Acute Qualifiers: Dyspnea type: shortness of breath Qualified Code(s): R06.02 - Shortness of breath; R06.00 - Dyspnea, unspecified; R06.01 - Orthopnea Plan to address problem: Shortness of breath on exertion. (3) Syncope Current Visit: Yes Status: Acute Qualifiers: Syncope type: unspecified Qualified Code(s): R55 - Syncope and collapse Plan to address problem: Feeling dizziness when she tries to get up and walk. Patient scheduled for HANK. Subjective Date of service: 03/04/18 Principal diagnosis: acute pulmonary embolism Interval history: Patient alert, awake. Complaining shortness of breath on exertion.Patient is on 2 litres O2. O2 saturation 92%.Patient saddle pulmonary emboli. Patient is on I/V Heparin.Patient scheduled for HANK. Objective Vital Signs - 12hr 03/04/18 03/04/18 03/04/18 05:43 08:18 08:32 Temperature 98.2 F Pulse Rate 87 100 H 105 H Respiratory 20 12 11 L Rate Blood Pressure 149/87 149/87 Blood Pressure 146/89 [Right] O2 Sat by Pulse 96 90 Oximetry 03/04/18 03/04/18 03/04/18 08:44 08:46 09:00 Temperature 97.9 F Pulse Rate 100 H 100 H 107 H Respiratory 16 13 15 Rate Blood Pressure 149/87 149/87 Blood Pressure 149/87 [Right] O2 Sat by Pulse 89 90 91 Oximetry 03/04/18 03/04/18 03/04/18 09:16 09:30 09:46 Temperature Pulse Rate 98 H 91 H 106 H Respiratory 12 12 17 Rate Blood Pressure 149/87 149/87 149/87 Blood Pressure [Right] O2 Sat by Pulse 92 95 92 Oximetry 03/04/18 03/04/18 03/04/18 10:00 10:16 10:30 Temperature Pulse Rate 104 H 95 H 89 Respiratory 16 25 H 11 L Rate Blood Pressure 149/87 149/87 149/87 Blood Pressure [Right] O2 Sat by Pulse 90 96 97 Oximetry 03/04/18 03/04/18 03/04/18 10:46 11:00 11:16 Temperature Pulse Rate 99 H 106 H 95 H Respiratory 23 20 13 Rate Blood Pressure 149/87 149/87 149/87 Blood Pressure [Right] O2 Sat by Pulse 94 91 97 Oximetry 03/04/18 03/04/18 03/04/18 11:30 11:46 12:00 Temperature Pulse Rate 98 H 93 H 109 H Respiratory 12 12 15 Rate Blood Pressure 149/87 149/87 149/87 Blood Pressure [Right] O2 Sat by Pulse 95 93 94 Oximetry 03/04/18 03/04/18 03/04/18 12:15 12:19 12:30 Temperature Pulse Rate 104 H 100 H 102 H Respiratory 16 17 Rate Blood Pressure 140/83 140/83 140/83 Blood Pressure [Right] O2 Sat by Pulse 90 86 Oximetry Constitutional: no acute distress, alert Eyes: non-icteric ENT: oropharynx moist Neck: supple, no lymphadenopathy Ascultation: Bilateral: diminished breath sounds Cardiovascular: regular rate and rhythm Gastrointestinal: normoactive bowel sounds, soft, non-tender Integumentary: normal Extremities: no cyanosis, no edema Neurologic: normal mental status, non-focal exam, pupils equal and round, CN II- XII normal Psychiatric: mood appropriate CBC and BMP: 03/04/18 02:01 03/04/18 02:01 ABG, PT/INR, D-dimer: PT/INR, D-dimer PT 15.2 Sec. (12.2-14.9) H 03/03/18 08:10 INR 1.16 (0.87-1.13) H 03/03/18 08:10 D-Dimer 1228.97 ng/mlDDU (0-234) H 03/03/18 03:53 Abnormal lab findings: Abnormal Labs 03/02/18 03/03/18 03/03/18 23:38 03:53 03:53 MCV 76 L MCH 23 L RDW 20.7 H PT INR APTT D-Dimer 1228.97 H Heparin Anti-Xa Level Sodium Chloride Glucose NT-Pro-B Natriuret Pep 1629 H 03/03/18 03/03/18 03/04/18 08:10 15:38 00:04 MCV MCH RDW PT 15.2 H INR 1.16 H APTT 79.6 H* D-Dimer Heparin Anti-Xa Level 0.12 L 0.14 L Sodium Chloride Glucose NT-Pro-B Natriuret Pep 03/04/18 03/04/18 03/04/18 02:01 02:01 07:21 MCV 74 L MCH 23 L RDW 19.7 H PT INR APTT D-Dimer Heparin Anti-Xa Level < 0.10 L Sodium 136 L Chloride 95.9 L Glucose 109 H NT-Pro-B Natriuret Pep CT scan - chest: report reviewed (Large saddle pulmonary embolism.), image r shayy
[2018-03-04] MEDS ORDERED: COUMADIN PO SCH (17:00)
[2018-03-04] MEDS: PROTONIX PO SCH (22:51)
[2018-03-05] MEDS: DILAUDID IV PRN ×6 (01:25→22:10)
[2018-03-05 06:05] LABS: Basophils % (Auto) 0.5 % (0.0-1.8); Eosinophils # (Auto) 0.4 K/mm3 (0.0-0.4); Hemoglobin 9.6 gm/dl (10.1-14.3); Lymphocytes # (Auto) 3.3 K/mm3 (1.2-5.4); Lymphocytes % (Auto) 43.8 % (13.4-35.0); Mean Corpuscular HGB Conc 31 % (30-34); Mean Corpuscular Volume 74 fl (79-97); Monocytes # (Auto) 0.6 K/mm3 (0.0-0.8); Monocytes % (Auto) 7.7 % (0.0-7.3); Platelet Count 246 K/mm3 (140-440); Red Cell Distribution Width 19.7 % (13.2-15.2)
[2018-03-05 06:09] LABS: INR 1.32 (0.87-1.13)
[2018-03-05 06:23] LABS: Alanine Aminotransferase 16 units/L (7-56); Albumin 3.6 g/dL (3.9-5); BUN/Creatinine Ratio 11; Blood Urea Nitrogen 11 mg/dL (7-17); Calcium 8.4 mg/dL (8.4-10.2); Hemolysis Index 9
[2018-03-05] MEDS: TAPAZOLE PO SCH ×3 (06:35→21:31)
[2018-03-05] MEDS: PERCOCET 5/325 PO PRN (06:35)
[2018-03-05] MEDS: LYRICA PO SCH (09:01)
[2018-03-05] MEDS: PROTONIX PO SCH ×2 (09:02→21:31)
[2018-03-05] MEDS: XANAX PO PRN ×2 (09:02→19:12)
[2018-03-05] MEDS: ZOFRAN IV PRN (09:02)
[2018-03-05] MEDS: NACL 0.9% 1000 ML 1,000 ML IV SCH ×2 (09:09→19:11)
--- NOTE | 2018-03-05 10:27 | Progress Note ---
Assessment and Plan Recurrent PE previously treated with warfarin for oral anticoagulation therapy. INR sub-therapeutic on presentation at 1.00 H/O Aortic thrombus treated with a stent graft placement at [facility] in December 2017. Hypercoagulable state For planned HANK for aortic thrombus evaluation. Subjective Date of service: 03/05/18 Principal diagnosis: acute pulmonary embolism Interval history: Patient has no cardiac complaints. For planned HANK today. Objective Vital Signs Temp Pulse Pulse Resp Resp Resp BP 03/05/18 07:45 98.7 F 80 16 107/61 03/05/18 06:35 18 03/05/18 05:40 18 03/05/18 05:35 98.2 F 80 20 106/68 03/05/18 05:11 18 03/05/18 01:55 18 03/05/18 01:25 18 03/04/18 23:52 18 03/04/18 22:55 82 136/87 03/04/18 22:52 18 03/04/18 22:49 18 136/87 03/04/18 22:20 88 18 03/04/18 21:49 18 03/04/18 21:31 18 03/04/18 21:05 18 18 03/04/18 21:01 18 03/04/18 19:46 89 03/04/18 19:43 98.5 F 92 H 20 113/72 03/04/18 17:55 18 03/04/18 17:38 98.2 F 03/04/18 17:36 86 18 118/60 03/04/18 13:20 122 H 15 124/81 03/04/18 13:10 118 H 16 124/81 03/04/18 13:00 121 H 14 140/83 03/04/18 12:50 106 H 22 140/83 03/04/18 12:30 102 H 17 140/83 03/04/18 12:24 18 03/04/18 12:19 100 H 140/83 03/04/18 12:15 104 H 16 140/83 03/04/18 12:00 109 H 15 149/87 03/04/18 11:46 93 H 12 149/87 03/04/18 11:30 98 H 12 149/87 03/04/18 11:16 95 H 13 149/87 03/04/18 11:00 106 H 20 149/87 03/04/18 10:46 99 H 23 149/87 03/04/18 10:30 89 11 L 149/87 Pulse Ox 03/05/18 07:45 94 03/05/18 06:35 03/05/18 05:40 03/05/18 05:35 94 03/05/18 05:11 03/05/18 01:55 03/05/18 01:25 03/04/18 23:52 03/04/18 22:55 03/04/18 22:52 03/04/18 22:49 03/04/18 22:20 95 03/04/18 21:49 03/04/18 21:31 03/04/18 21:05 03/04/18 21:01 03/04/18 19:46 03/04/18 19:43 95 03/04/18 17:55 03/04/18 17:38 03/04/18 17:36 92 03/04/18 13:20 87 03/04/18 13:10 94 03/04/18 13:00 97 03/04/18 12:50 98 03/04/18 12:30 86 03/04/18 12:24 03/04/18 12:19 03/04/18 12:15 90 03/04/18 12:00 94 03/04/18 11:46 93 03/04/18 11:30 95 03/04/18 11:16 97 03/04/18 11:00 91 03/04/18 10:46 94 03/04/18 10:30 97 - Physical Examination General: No Apparent Distress HEENT: Positive: PERRL Neck: Positive: trachea midline Cardiac: Positive: Reg Rate and Rhythm Lungs: Positive: Decreased Breath Sounds Neuro: Positive: Grossly Intact Abdomen: Positive: Soft, Active Bowel Sounds Extremities: Absent: edema - Labs and Meds Cardiac Enzymes 03/05/18 Range/Units 05:43 AST 16 (5-40) units/L Coagulation 03/05/18 Range/Units 05:43 PT 16.8 H (12.2-14.9) Sec. INR 1.32 H (0.87-1.13) CBC 03/05/18 Range/Units 05:43 WBC 7.4 (4.5-11.0) K/mm3 RBC 4.20 (3.65-5.03) M/mm3 Hgb 9.6 L (10.1-14.3) gm/dl Hct 31.0 (30.3-42.9) % Plt Count 246 (140-440) K/mm3 Lymph # 3.3 (1.2-5.4) K/mm3 [place] # 0.6 (0.0-0.8) K/mm3 Eos # 0.4 (0.0-0.4) K/mm3 Baso # 0.0 (0.0-0.1) K/mm3 Comprehensive Metabolic Panel 03/05/18 Range/Units 05:43 Sodium 141 (137-145) mmol/L Potassium 4.8 (3.6-5.0) mmol/L Chloride 105.5 (98-107) mmol/L Carbon Dioxide 25 (22-30) mmol/L BUN 11 (7-17) mg/dL Creatinine 1.0 (0.7-1.2) mg/dL Glucose 95 (65-100) mg/dL Calcium 8.4 (8.4-10.2) mg/dL AST 16 (5-40) units/L ALT 16 (7-56) units/L Alkaline Phosphatase 79 (35-129) units/L Total Protein 6.3 (6.3-8.2) g/dL Albumin 3.6 L (3.9-5) g/dL
[2018-03-05] MEDS ORDERED: VERSED IV ONE ×3 (11:29→12:45)
[2018-03-05] MEDS ORDERED: SUBLIMAZE IV ONE (11:29)
[2018-03-05] MEDS: HEPARIN/ 0.45% NACL-25,000 UNIT/500 ML 25,000 UNIT/500 ML BAG IV SCH ×2 (12:06→19:08)
[2018-03-05] MEDS ORDERED: SUBLIMAZE ONE (12:42)
[2018-03-05] MEDS ORDERED: NACL 0.9% 500 ML 0 ML ONE (12:44)
[2018-03-05] MEDS ORDERED: HURRICAINE ONE 20% TOPICAL SPRAY MM (12:51)
[2018-03-05] MEDS: SODIUM CHLORIDE FLUSH SYRINGE 10 ML IV SCH ×2 (15:27→21:31)
[2018-03-05] MEDS: INDERAL LA PO SCH ×2 (15:42→21:30)
[2018-03-05] MEDS: COUMADIN PO SCH (16:33)
--- NOTE | 2018-03-05 16:47 | Progress Note ---
Assessment and Plan Patient Problems (1) Acute pulmonary embolism Current Visit: Yes Status: Acute Qualifiers: Pulmonary embolism type: saddle Acute cor pulmonale presence: with acute cor pulmonale Qualified Code(s): I26.02 - Saddle embolus of pulmonary artery with acute cor pulmonale Plan to address problem: IV heparin initiated Vascular surgery consult appreciated For possible EKOS Patient has hypercoagulable state Patient needs anticoagulation lifelong (2) Syncope Current Visit: Yes Status: Acute Qualifiers: Syncope type: unspecified Qualified Code(s): R55 - Syncope and collapse Plan to address problem: Secondary to pulmonary embolism No further workup Echocardiogram done (3) Chest pain Current Visit: Yes Status: Acute Qualifiers: Chest pain type: unspecified Qualified Code(s): R07.9 - Chest pain, unspecified Plan to address problem: Secondary to pulmonary embolism Patient had stress test in 2018 which was negative No further workup (4) Hypertension Current Visit: Yes Status: Chronic Qualifiers: Hypertension type: essential hypertension Qualified Code(s): I10 - Essential (primary) hypertension Plan to address problem: Continue antihypertensive (5) GERD (gastroesophageal reflux disease) Current Visit: Yes Status: Chronic Qualifiers: Esophagitis presence: with esophagitis Qualified Code(s): K21.0 - Gastro- esophageal reflux disease with esophagitis Plan to address problem: Continue PPIs (6) Anticoagulation monitoring, INR range 2.5-3.5 Current Visit: Yes Status: Chronic Plan to address problem: Coumadin dose to be adjusted so that the INR is between 2.5 and 3.5 (7) Bipolar disorder Current Visit: Yes Status: Chronic Qualifiers: Active/Remission status: in remission of unspecified degree Qualified Code(s): F31.70 - Bipolar disorder, currently in remission, most recent episode unspecified Plan to address problem: Continue Seroquel (8) Hyperthyroidism Current Visit: Yes Status: Chronic Plan to address problem: Continue methimazole (9) Peripheral neuropathy Current Visit: Yes Status: Chronic Plan to address problem: Continue Lyrica (10) history of aortic thrombus H/O Aortic thrombus treated with a stent graft placement at [facility] in December 2017. Hypercoagulable state For planned HANK for aortic thrombus evaluation. (11) DVT prophylaxis Current Visit: No Status: Resolved Plan to address problem: Patient already on IV heparin and Coumadin Subjective Date of service: 03/05/18 Principal diagnosis: acute pulmonary embolism Interval history: Resting comfortably No further chest pain Objective - Constitutional Vitals: Vital Signs - 12hr 03/05/18 03/05/18 03/05/18 05:11 05:35 05:40 Temperature 98.2 F Pulse Rate 80 Pulse Rate [ Intra-Procedure ] Pulse Rate [ Post-Procedure] Pulse Rate [Pre -Procedure] Respiratory 18 20 18 Rate Respiratory Rate [Intra- Procedure] Respiratory Rate [Post- Procedure] Respiratory Rate [Pre- Procedure] Blood Pressure 106/68 Blood Pressure [Intra- Procedure] Blood Pressure [Post-Procedure ] Blood Pressure [Pre-Procedure] O2 Sat by Pulse 94 Oximetry O2 Sat by Pulse Oximetry [ Intra-Procedure ] O2 Sat by Pulse Oximetry [Post -Procedure] O2 Sat by Pulse Oximetry [Pre- Procedure] 03/05/18 03/05/18 03/05/18 06:35 07:45 12:55 Temperature 98.7 F Pulse Rate 80 Pulse Rate [ Intra-Procedure ] Pulse Rate [ Post-Procedure] Pulse Rate [Pre 76 -Procedure] Respiratory 18 16 Rate Respiratory Rate [Intra- Procedure] Respiratory Rate [Post- Procedure] Respiratory 16 Rate [Pre- Procedure] Blood Pressure 107/61 Blood Pressure [Intra- Procedure] Blood Pressure [Post-Procedure ] Blood Pressure 104/63 [Pre-Procedure] O2 Sat by Pulse 94 Oximetry O2 Sat by Pulse Oximetry [ Intra-Procedure ] O2 Sat by Pulse Oximetry [Post -Procedure] O2 Sat by Pulse 100 Oximetry [Pre- Procedure] 03/05/18 03/05/18 03/05/18 13:10 13:15 13:20 Temperature Pulse Rate Pulse Rate [ 76 76 Intra-Procedure ] Pulse Rate [ Post-Procedure] Pulse Rate [Pre 74 -Procedure] Respiratory Rate Respiratory 14 13 Rate [Intra- Procedure] Respiratory Rate [Post- Procedure] Respiratory 14 Rate [Pre- Procedure] Blood Pressure Blood Pressure 113/59 110/58 [Intra- Procedure] Blood Pressure [Post-Procedure ] Blood Pressure 117/69 [Pre-Procedure] O2 Sat by Pulse Oximetry O2 Sat by Pulse 100 100 Oximetry [ Intra-Procedure ] O2 Sat by Pulse Oximetry [Post -Procedure] O2 Sat by Pulse 100 Oximetry [Pre- Procedure] 03/05/18 03/05/18 03/05/18 13:25 13:51 13:55 Temperature Pulse Rate Pulse Rate [ Intra-Procedure ] Pulse Rate [ 72 67 76 Post-Procedure] Pulse Rate [Pre -Procedure] Respiratory Rate Respiratory Rate [Intra- Procedure] Respiratory 11 L 12 11 L Rate [Post- Procedure] Respiratory Rate [Pre- Procedure] Blood Pressure Blood Pressure [Intra- Procedure] Blood Pressure 101/57 112/64 110/62 [Post-Procedure ] Blood Pressure [Pre-Procedure] O2 Sat by Pulse Oximetry O2 Sat by Pulse Oximetry [ Intra-Procedure ] O2 Sat by Pulse 100 100 100 Oximetry [Post -Procedure] O2 Sat by Pulse Oximetry [Pre- Procedure] 03/05/18 03/05/18 14:16 15:42 Temperature Pulse Rate 76 Pulse Rate [ Intra-Procedure ] Pulse Rate [ Post-Procedure] Pulse Rate [Pre -Procedure] Respiratory 11 L Rate Respiratory Rate [Intra- Procedure] Respiratory Rate [Post- Procedure] Respiratory Rate [Pre- Procedure] Blood Pressure Blood Pressure [Intra- Procedure] Blood Pressure [Post-Procedure ] Blood Pressure [Pre-Procedure] O2 Sat by Pulse Oximetry O2 Sat by Pulse Oximetry [ Intra-Procedure ] O2 Sat by Pulse Oximetry [Post -Procedure] O2 Sat by Pulse Oximetry [Pre- Procedure] General appearance: Present: no acute distress, well-nourished - EENT Eyes: PERRL, EOM intact ENT: hearing intact, clear oral mucosa Ears: bilateral: normal - Neck Neck: supple, normal ROM - Respiratory Respiratory effort: normal Respiratory: bilateral: CTA - Breasts Breasts: normal - Cardiovascular Heart rate: 88 Rhythm: regular Heart Sounds: Present: S1 & S2. Absent: gallop, rub Extremities: pulses intact, No edema, normal color, Full ROM - Gastrointestinal General gastrointestinal: Present: soft, non-tender, non-distended, normal bowel sounds - Genitourinary Female genitourinary: normal - Integumentary Integumentary: clear, warm, dry - Musculoskeletal Musculoskeletal: 1, strength equal bilaterally - Neurologic Neurologic: moves all extremities - Psychiatric Psychiatric: memory intact, appropriate mood/affect, intact judgment & insight - Labs CBC & Chem 7: 03/05/18 05:43 03/05/18 05:43 Labs: Abnormal lab results 03/05/18 03/05/18 03/05/18 Range/Units 01:10 05:43 05:43 Hgb 9.6 L (10.1-14.3) gm/dl MCV 74 L (79-97) fl MCH 23 L (28-32) pg RDW 19.7 H (13.2-15.2) % Lymph % (Auto) 43.8 H (13.4-35.0) % [place] % (Auto) 7.7 H (0.0-7.3) % Eos % (Auto) 6.0 H (0.0-4.3) % PT (12.2-14.9) Sec. INR (0.87-1.13) Heparin Anti-Xa Level 0.10 L (0.3-0.7) U.I./ml Albumin 3.6 L (3.9-5) g/dL 03/05/18 03/05/18 03/05/18 Range/Units 05:43 10:05 15:00 Hgb (10.1-14.3) gm/dl MCV (79-97) fl MCH (28-32) pg RDW (13.2-15.2) % Lymph % (Auto) (13.4-35.0) % [place] % (Auto) (0.0-7.3) % Eos % (Auto) (0.0-4.3) % PT 16.8 H (12.2-14.9) Sec. INR 1.32 H (0.87-1.13) Heparin Anti-Xa Level 0.22 L < 0.10 L (0.3-0.7) U.I./ml Albumin (3.9-5) g/dL
--- NOTE | 2018-03-05 18:47 | Event Note ---
Date: 03/05/18 HANK negative for intramural thrombus or thrombus involving the aortic valve. Patient still requires supplemental oxygen and HANK with evidence of Right Heart Strain. Will proceed with Bilateral pulmonary artery thrombolysis as well as possible IVC filter placement. Discussed this with the patient who expressed understanding and agrees with the plan.
[2018-03-05] MEDS ORDERED: HEPARIN 10,000 UNITS/10 ML IV ONE ×2 (18:52→22:00)
--- NOTE | 2018-03-05 19:13 | Progress Note ---
Assessment and Plan Patient alert, awake. Complaining shortness of breath on exertion.Patient is on 2 litres O2. O2 saturation 100%.Patient saddle pulmonary emboli. Patient is on I/V Heparin.Patient has HANK to day. Reported main pulmonary artery normal... - Patient Problems (1) Acute pulmonary embolism Current Visit: Yes Status: Acute Qualifiers: Pulmonary embolism type: saddle Acute cor pulmonale presence: with acute cor pulmonale Qualified Code(s): I26.02 - Saddle embolus of pulmonary artery with acute cor pulmonale Plan to address problem: Patient is on I/V Heparin. O2 supplementation. Patient started on PO coumadin. (2) Dyspnea Current Visit: Yes Status: Acute Qualifiers: Dyspnea type: shortness of breath Qualified Code(s): R06.02 - Shortness of breath; R06.00 - Dyspnea, unspecified; R06.01 - Orthopnea Plan to address problem: Shortness of breath on exertion. (3) Syncope Current Visit: Yes Status: Acute Qualifiers: Syncope type: unspecified Qualified Code(s): R55 - Syncope and collapse Plan to address problem: Feeling dizziness when she tries to get up and walk. Subjective Date of service: 03/05/18 Principal diagnosis: acute pulmonary embolism Interval history: Patient alert, awake. Complaining shortness of breath on exertion.Patient is on 2 litres O2. O2 saturation 100%.Patient saddle pulmonary emboli. Patient is on I/V Heparin.Patient has HANK to day. Reported main pulmonary artery normal.. Objective Vital Signs - 12hr 03/05/18 03/05/18 03/05/18 07:45 12:55 13:10 Temperature 98.7 F Pulse Rate 80 Pulse Rate [ Intra-Procedure ] Pulse Rate [ Post-Procedure] Pulse Rate [Pre 76 74 -Procedure] Respiratory 16 Rate Respiratory Rate [Intra- Procedure] Respiratory Rate [Post- Procedure] Respiratory 16 14 Rate [Pre- Procedure] Blood Pressure 107/61 Blood Pressure [Intra- Procedure] Blood Pressure [Post-Procedure ] Blood Pressure 104/63 117/69 [Pre-Procedure] O2 Sat by Pulse 94 Oximetry O2 Sat by Pulse Oximetry [ Intra-Procedure ] O2 Sat by Pulse Oximetry [Post -Procedure] O2 Sat by Pulse 100 100 Oximetry [Pre- Procedure] 03/05/18 03/05/18 03/05/18 13:15 13:20 13:25 Temperature Pulse Rate Pulse Rate [ 76 76 Intra-Procedure ] Pulse Rate [ 72 Post-Procedure] Pulse Rate [Pre -Procedure] Respiratory Rate Respiratory 14 13 Rate [Intra- Procedure] Respiratory 11 L Rate [Post- Procedure] Respiratory Rate [Pre- Procedure] Blood Pressure Blood Pressure 113/59 110/58 [Intra- Procedure] Blood Pressure 101/57 [Post-Procedure ] Blood Pressure [Pre-Procedure] O2 Sat by Pulse Oximetry O2 Sat by Pulse 100 100 Oximetry [ Intra-Procedure ] O2 Sat by Pulse 100 Oximetry [Post -Procedure] O2 Sat by Pulse Oximetry [Pre- Procedure] 03/05/18 03/05/18 03/05/18 13:51 13:55 14:16 Temperature Pulse Rate Pulse Rate [ Intra-Procedure ] Pulse Rate [ 67 76 Post-Procedure] Pulse Rate [Pre -Procedure] Respiratory 11 L Rate Respiratory Rate [Intra- Procedure] Respiratory 12 11 L Rate [Post- Procedure] Respiratory Rate [Pre- Procedure] Blood Pressure Blood Pressure [Intra- Procedure] Blood Pressure 112/64 110/62 [Post-Procedure ] Blood Pressure [Pre-Procedure] O2 Sat by Pulse Oximetry O2 Sat by Pulse Oximetry [ Intra-Procedure ] O2 Sat by Pulse 100 100 Oximetry [Post -Procedure] O2 Sat by Pulse Oximetry [Pre- Procedure] 03/05/18 15:42 Temperature Pulse Rate 76 Pulse Rate [ Intra-Procedure ] Pulse Rate [ Post-Procedure] Pulse Rate [Pre -Procedure] Respiratory Rate Respiratory Rate [Intra- Procedure] Respiratory Rate [Post- Procedure] Respiratory Rate [Pre- Procedure] Blood Pressure Blood Pressure [Intra- Procedure] Blood Pressure [Post-Procedure ] Blood Pressure [Pre-Procedure] O2 Sat by Pulse Oximetry O2 Sat by Pulse Oximetry [ Intra-Procedure ] O2 Sat by Pulse Oximetry [Post -Procedure] O2 Sat by Pulse Oximetry [Pre- Procedure] Constitutional: no acute distress, alert Eyes: non-icteric ENT: oropharynx moist Neck: supple, no lymphadenopathy Ascultation: Bilateral: diminished breath sounds Cardiovascular: regular rate and rhythm Gastrointestinal: normoactive bowel sounds, soft, non-tender Integumentary: normal Extremities: no cyanosis, no edema Neurologic: normal mental status, non-focal exam, pupils equal and round, CN II- XII normal Psychiatric: mood appropriate CBC and BMP: 03/05/18 05:43 03/05/18 05:43 ABG, PT/INR, D-dimer: PT/INR, D-dimer PT 16.8 Sec. (12.2-14.9) H 03/05/18 05:43 INR 1.32 (0.87-1.13) H 03/05/18 05:43 D-Dimer 1228.97 ng/mlDDU (0-234) H 03/03/18 03:53 Abnormal lab findings: Abnormal Labs 03/02/18 03/03/18 03/03/18 23:38 03:53 03:53 Hgb MCV 76 L MCH 23 L RDW 20.7 H Lymph % (Auto) [place] % (Auto) Eos % (Auto) PT INR APTT D-Dimer 1228.97 H Heparin Anti-Xa Level Sodium Chloride Glucose NT-Pro-B Natriuret Pep 1629 H Albumin 03/03/18 03/03/18 03/04/18 08:10 15:38 00:04 Hgb MCV MCH RDW Lymph % (Auto) [place] % (Auto) Eos % (Auto) PT 15.2 H INR 1.16 H APTT 79.6 H* D-Dimer Heparin Anti-Xa Level 0.12 L 0.14 L Sodium Chloride Glucose NT-Pro-B Natriuret Pep Albumin 03/04/18 03/04/18 03/04/18 02:01 02:01 07:21 Hgb MCV 74 L MCH 23 L RDW 19.7 H Lymph % (Auto) [place] % (Auto) Eos % (Auto) PT INR APTT D-Dimer Heparin Anti-Xa Level < 0.10 L Sodium 136 L Chloride 95.9 L Glucose 109 H NT-Pro-B Natriuret Pep Albumin 03/05/18 03/05/18 03/05/18 01:10 05:43 05:43 Hgb 9.6 L MCV 74 L MCH 23 L RDW 19.7 H Lymph % (Auto) 43.8 H [place] % (Auto) 7.7 H Eos % (Auto) 6.0 H PT INR APTT D-Dimer Heparin Anti-Xa Level 0.10 L Sodium Chloride Glucose NT-Pro-B Natriuret Pep Albumin 3.6 L 03/05/18 03/05/18 03/05/18 05:43 10:05 15:00 Hgb MCV MCH RDW Lymph % (Auto) [place] % (Auto) Eos % (Auto) PT 16.8 H INR 1.32 H APTT D-Dimer Heparin Anti-Xa Level 0.22 L < 0.10 L Sodium Chloride Glucose NT-Pro-B Natriuret Pep Albumin
[2018-03-05] MEDS: TYLENOL PO PRN (22:09)
[2018-03-06] MEDS: TAPAZOLE PO SCH ×2 (06:28→22:25)
[2018-03-06] MEDS: HEPARIN/ 0.45% NACL-25,000 UNIT/500 ML 25,000 UNIT/500 ML BAG IV SCH (06:29)
[2018-03-06] MEDS: LYRICA PO SCH (08:51)
[2018-03-06] MEDS: PERCOCET 5/325 PO PRN (08:52)
[2018-03-06] MEDS: NACL 0.9% 1000 ML 1,000 ML IV SCH (08:52)
[2018-03-06] MEDS ORDERED: NORCO 5/325 PO PRN (10:49)
[2018-03-06] MEDS ORDERED: ZOFRAN IV PRN (10:49)
[2018-03-06] MEDS ORDERED: MORPHINE IV PRN ×2 (10:49)
[2018-03-06] MEDS ORDERED: HEPARIN/NS 5000 UNIT/500ML(CATH LAB) 1,000 ML IR ONE (10:55)
[2018-03-06] MEDS ORDERED: WATER FOR INJ Sterile (PF) 10 ML ONE (10:56)
[2018-03-06] MEDS ORDERED: XYLOCAINE 2% INFILTRATI ONE (10:56)
[2018-03-06] MEDS ORDERED: NACL 0.9% 1000 ML 1,000 ML ONE (10:57)
[2018-03-06] MEDS ORDERED: HEPARIN/ 0.45% NACL-25,000 UNIT/500 ML 25,000 UNIT/500 ML BAG ONE (10:57)
[2018-03-06 10:58] LABS: INR 1.35 (0.87-1.13)
[2018-03-06] MEDS ORDERED: NACL 0.9% 1000 ML 1,000 ML EKOSCLUMEN SCH ×2 (11:00)
[2018-03-06] MEDS ORDERED: NACL 0.9% 1000 ML 1,000 ML SHEATH SCH (11:00)
[2018-03-06] MEDS ORDERED: NACL 0.9% 1000 ML 1,000 ML IV SCH (11:00)
[2018-03-06] MEDS: SUBLIMAZE ONE ×3 (11:45→12:20)
[2018-03-06] MEDS: VERSED ONE ×3 (11:45→12:20)
[2018-03-06] MEDS: HEPARIN 10,000 UNITS/10 ML ONE ×4 (11:53→12:24)
[2018-03-06] MEDS: CATHFLO ONE ×5 (11:55→12:28)
[2018-03-06] MEDS: NACL 0.9% 1000 ML 1,000 ML SHEATH SCH ×2 (12:00→12:48)
[2018-03-06] MEDS: HEPARIN/ 0.45% NACL-25,000 UNIT/500 ML 25,000 UNIT/500 ML BAG SHEATH SCH ×5 (12:00→13:00)
[2018-03-06] MEDS: CATHFLO 10 MG in NACL 0.9% 250ML 250 ML EKOSDLUMEN SCH ×3 (12:01→13:00)
[2018-03-06] MEDS: CATHFLO 10 MG in NACL 0.9% 250ML 250 ML IV SCH ×3 (12:02→13:00)
--- NOTE | 2018-03-06 13:19 | Operative Report ---
Operative Report Operative Report: Date of Procedure: 03/06/2018 Pre-operative Diagnosis: Hypercoagulable State with Saddle Pulmonary Embolus Post-operative Diagnosis: Same Procedure(s): 1. Ultrasound-Guided Access Right Common Femoral Vein with 6 [place] Sheath 2. Ultrasound-Guided Access Right Common Femoral Vein with 6 [place] Sheath 3. Diagnostic Right Lower Extremity Venogram 4. Diagnostic Left Lower Extremity Venogram 5. Diagnostic Inferior Venacavogram 6. Nonselective Pulmonary Artery Arteriogram 7. Bilateral Pulmonary Artery Thrombolysis with 106 x 12 cm EKOS Thrombolysis Catheters 8. Monitored IV Sedation 9. Radiologic Supervision with Interpretation Surgeon: Shayne Sal M.D. Outpatient Phlebotomist: None Anesthesia: Local and IV sedation EBL: Normal Counts: Correct Complications: None Condition: Stable Venogram Findings: The left lower extremity venogram findings demonstrated that the left common femoral vein was patent and free of thrombus. The left external iliac vein had approximately 60% stenosis without evidence of thrombus. The left common iliac vein was patent without significant stenosis or thrombus. The right lower extremity venogram demonstrated a patent common femoral vein, external iliac vein, and common iliac vein without evidence of thrombus. The inferior vena cava was widely patent without stenosis or evidence of thrombus. The main pulmonary artery as well as the right and left pulmonary arteries had evidence of nonocclusive thrombus. The EKOS thrombolysis catheters were placed with the proximal treatment zone in the distal main pulmonary artery and the distal tips and their respective segmental branches. Specimen: None Indication: The patient is a 37-year-old female with a history of hypercoagulable state including thrombus within her descending aorta requiring coverage with stent graft placement. She also has a history of pulmonary artery embolus requiring a nticoagulation. She presented to the emergency department with complaints of shortness of breath and chest pain. CTA of her chest revealed saddle pulmonary embolus and an echo revealed right heart strain. By report she had a history of thrombus involving her aortic valve and a HANK ruled out retained thrombus on the valve. Given this extent of her saddle embolus. It was felt that she would raul efit from thrombolysis. She was given the risk, benefits, and alternative procedures and consented to the procedure. Description of Procedure: The patient was brought to the [facility] and laid in supine position. After she was adequately sedated her right groin was prepped and draped in normal sterile fashion. Ultrasound was used to identify the right common femoral vein and the skin and soft tissue was anesthetized with lidocaine. A stab incision was made with an 11 blade and an 18-gauge access needle was used with ultrasound guidance to enter the right common femoral vein. A 0.035 Bentson wire was then advanced into the inferior vena cava under fluoroscopy. A second stab incision was then made in the right groin and the 18-gauge needle was then used again to access the right common femoral vein under ultrasound guidance and a second 0.035 Bentson wire was advanced into the inferior vena cava under fluoroscopy. A 6 [place] sheath was advanced over each wire by surgery technique. Then advanced an Omni Flush catheter over the wire of the wires in place at the bifurcation. I used a floppy 0.035 Glidewire and advanced the Omni Flush catheter and Glidewire over the bifurcation and into the left common femoral vein. I performed a venogram with the previously described findings. I then pulled the catheter back into the inferior vena cava and readvanced a Bentson wire into the superior vena cava and removed the catheter. I pulled the 6 [place] sheath back slightly into the right common femoral vein and performed a right lower extremity venogram with the previous findings. And then injected dye into the inferior vena cava and again the findings are as described above. I advanced a JR4 catheter into the superior vena cava and with the use of a 0.035 Advantage wire was able to advance the wire and catheter into the main pulmonary artery. I exchanged the catheter for an angled pigtail catheter and performed a nonselective pulmonary arteriogram with procedures graft. I advanced the Bentson wire into the left pulmonary artery and then advanced the EKOS catheter into the pulmonary artery. I advanced the thrombolysis wire into the catheter and then primed the catheter with the appropriate amount of heparin and TPA. Additionally primed his sheath with the appropriate amount. I then reinserted the JR4 catheter through the other 6 [place] sheath and advanced it into the superior vena cava. I again used the Advantage wire and catheter and advanced this into the left pulmonary artery. I removed the catheter and advanced the EKOS catheter into the left pulmonary artery. I then the wire and advanced the thrombolysis wire into the catheter. I primed the catheter with the appropriate amount of TPA and heparin as well as the sheath. The final fluoroscopy demonstrated the catheters where an adequate position without evidence of pneumothorax. The catheters were secured in place with 0 silk. They were dressed with sterile 4 x 4 gauze and Tegaderms. The patient tolerated the procedure well. All sponge, needle, and instrument counts were correct. The patient was taken to the recovery area in stable condition.
--- NOTE | 2018-03-06 13:39 | Progress Note ---
Assessment and Plan Patient alert, awake. Complaining shortness of breath on exertion.Patient is on 2 litres O2. O2 saturation 96%.Patient saddle pulmonary emboli. Patient is on I/V Heparin.Patient has HANK to day. Reported main pulmonary artery normal... - Patient Problems (1) Acute pulmonary embolism Current Visit: Yes Status: Acute Qualifiers: Pulmonary embolism type: saddle Acute cor pulmonale presence: with acute cor pulmonale Qualified Code(s): I26.02 - Saddle embolus of pulmonary artery with acute cor pulmonale Plan to address problem: Patient is on I/V Heparin. O2 supplementation. Patient started on PO coumadin. (2) Dyspnea Current Visit: Yes Status: Acute Qualifiers: Dyspnea type: shortness of breath Qualified Code(s): R06.02 - Shortness of breath; R06.00 - Dyspnea, unspecified; R06.01 - Orthopnea Plan to address problem: Shortness of breath on exertion. (3) Syncope Current Visit: Yes Status: Acute Qualifiers: Syncope type: unspecified Qualified Code(s): R55 - Syncope and collapse Plan to address problem: Feeling dizziness when she tries to get up and walk. Subjective Date of service: 03/06/18 Principal diagnosis: acute pulmonary embolism Interval history: Patient alert, awake. Complaining shortness of breath on exertion.Patient is on 2 litres O2. O2 saturation 96%.Patient saddle pulmonary emboli. Patient is on I/V Heparin.Patient has HANK to day. Reported main pulmonary artery normal.. Objective Vital Signs - 12hr 03/06/18 03/06/18 03/06/18 04:23 08:23 09:13 Temperature 98.0 F 98.0 F Pulse Rate 73 Respiratory 18 18 Rate Blood Pressure 100/48 O2 Sat by Pulse 98 Oximetry 03/06/18 09:14 Temperature Pulse Rate 90 Respiratory 18 Rate Blood Pressure 118/58 O2 Sat by Pulse 96 Oximetry Constitutional: no acute distress, alert Eyes: non-icteric ENT: oropharynx moist Neck: supple, no lymphadenopathy Ascultation: Bilateral: diminished breath sounds Cardiovascular: regular rate and rhythm Gastrointestinal: normoactive bowel sounds, soft, non-tender Integumentary: normal Extremities: no cyanosis, no edema Neurologic: normal mental status, non-focal exam, pupils equal and round, CN II- XII normal Psychiatric: mood appropriate CBC and BMP: 03/05/18 05:43 03/05/18 05:43 ABG, PT/INR, D-dimer: PT/INR, D-dimer PT 17.1 Sec. (12.2-14.9) H 03/06/18 10:37 INR 1.35 (0.87-1.13) H 03/06/18 10:37 D-Dimer 1228.97 ng/mlDDU (0-234) H 03/03/18 03:53 Abnormal lab findings: Abnormal Labs 03/02/18 03/03/18 03/03/18 23:38 03:53 03:53 Hgb MCV 76 L MCH 23 L RDW 20.7 H Lymph % (Auto) [place] % (Auto) Eos % (Auto) PT INR APTT Fibrinogen D-Dimer 1228.97 H Heparin Anti-Xa Level Sodium Chloride Glucose NT-Pro-B Natriuret Pep 1629 H Albumin 03/03/18 03/03/18 03/04/18 08:10 15:38 00:04 Hgb MCV MCH RDW Lymph % (Auto) [place] % (Auto) Eos % (Auto) PT 15.2 H INR 1.16 H APTT 79.6 H* Fibrinogen D-Dimer Heparin Anti-Xa Level 0.12 L 0.14 L Sodium Chloride Glucose NT-Pro-B Natriuret Pep Albumin 03/04/18 03/04/18 03/04/18 02:01 02:01 07:21 Hgb MCV 74 L MCH 23 L RDW 19.7 H Lymph % (Auto) [place] % (Auto) Eos % (Auto) PT INR APTT Fibrinogen D-Dimer Heparin Anti-Xa Level < 0.10 L Sodium 136 L Chloride 95.9 L Glucose 109 H NT-Pro-B Natriuret Pep Albumin 03/05/18 03/05/18 03/05/18 01:10 05:43 05:43 Hgb 9.6 L MCV 74 L MCH 23 L RDW 19.7 H Lymph % (Auto) 43.8 H [place] % (Auto) 7.7 H Eos % (Auto) 6.0 H PT INR APTT Fibrinogen D-Dimer Heparin Anti-Xa Level 0.10 L Sodium Chloride Glucose NT-Pro-B Natriuret Pep Albumin 3.6 L 03/05/18 03/05/18 03/05/18 05:43 10:05 15:00 Hgb MCV MCH RDW Lymph % (Auto) [place] % (Auto) Eos % (Auto) PT 16.8 H INR 1.32 H APTT Fibrinogen D-Dimer Heparin Anti-Xa Level 0.22 L < 0.10 L Sodium Chloride Glucose NT-Pro-B Natriuret Pep Albumin 03/05/18 03/06/18 20:27 10:37 Hgb MCV MCH RDW Lymph % (Auto) [place] % (Auto) Eos % (Auto) PT 17.1 H INR 1.35 H APTT Fibrinogen 504 H D-Dimer Heparin Anti-Xa Level 0.82 H 0.96 H Sodium Chloride Glucose NT-Pro-B Natriuret Pep Albumin
--- NOTE | 2018-03-06 13:49 | Progress Note ---
Addendum entered and electronically signed by DEVIKA MELO MD 03/06/18 14:19: Cardiac status is stable, patient is undergoing vascular surgery evaluation and management of pulmonary embolism. Original Note: Assessment and Plan Recurrent PE CTA chest demonstrated a moderately sized saddle pulmonary embolus. previously treated with warfarin for oral anticoagulation therapy. INR sub- therapeutic on presentation at 1.00. HANK -no thrombus or dissection visualized Echocardiogram -4 chamber dilated cardiomyopathy, 35-40%. H/O Aortic thrombus treated with a stent graft placement at [facility] in December 2017. Hypercoagulable state Subjective Date of service: 03/06/18 Principal diagnosis: acute pulmonary embolism Interval history: Patient has no cardiac complaints. For vascular procedure today. Objective Vital Signs Temp Pulse Pulse Resp Resp BP BP 03/06/18 13:15 80 15 121/70 03/06/18 13:00 82 15 115/65 03/06/18 09:14 90 18 118/58 03/06/18 09:13 98.0 F 03/06/18 08:23 18 03/06/18 04:23 98.0 F 73 18 100/48 03/05/18 23:59 98.0 F 76 18 90/56 03/05/18 22:00 03/05/18 19:53 98.0 F 73 18 103/61 03/05/18 15:42 76 03/05/18 14:16 11 L 03/05/18 13:55 76 11 L 110/62 03/05/18 13:51 67 12 112/64 Pulse Ox Pulse Ox 03/06/18 13:15 94 03/06/18 13:00 94 03/06/18 09:14 96 03/06/18 09:13 03/06/18 08:23 03/06/18 04:23 98 03/05/18 23:59 100 03/05/18 22:00 100 03/05/18 19:53 90 03/05/18 15:42 03/05/18 14:16 03/05/18 13:55 100 03/05/18 13:51 100 - Physical Examination General: No Apparent Distress HEENT: Positive: PERRL Neck: Positive: trachea midline Cardiac: Positive: Reg Rate and Rhythm Neuro: Positive: Grossly Intact Abdomen: Positive: Active Bowel Sounds - Labs and Meds Coagulation 01/15/19 Range/Units 10:37 PT 17.1 H (12.2-14.9) Sec. INR 1.35 H (0.87-1.13)
--- NOTE | 2018-03-06 14:45 | Progress Note ---
Assessment and Plan Assessment and plan: Patient is a 37-year-old woman with history of hypercoagulable state with Aortic thrombus treated with a stent graft placement at [facility] in December 2017/pulmonary embolism/DVT, thyrotoxicosis, GERD, hypertension and bipolar disorder who presented to [facility] ED with syncope, leg edema, chest pains and SOB Acute Saddle pulmonary embolism with acute diastolic heart failure/right heart strain with acute hypoxic respiratory failure: going for EKOS today Syncope, cardiogenic due to the above Acute hypoxic respiratory failure due to the above Acute diastolic heart failure due to the above Bipolar disorder: Continue Seroquel Hyperthyroidism: Continue methimazole Peripheral neuropathy: Continue Lyrica Hypercoagulable state with history of aortic thrombus/PE/DVT: For planned HANK for aortic thrombus evaluation. DVT prophylaxis: Patient already on IV heparin and Coumadin CCT 32 minutes History Interval history: Patient was seen and examined. Follow-up on current diagnosis of PE, still with BARNETT. Overnight uneventful. Patient denies any nausea/vomiting or severe headaches. Imaging, nursing note, chart, labs and old chart reviewed. Discussed with patient. Hospitalist Physical - Physical exam Narrative exam: Gen: WDWN, NAD, Awake, Alert, Orientated HEENT: NCAT, EOMI, PERRL, OP Clear Neck: supple, no adenopathy, no thyromegaly, no JVD CVS/Heart: RRR, normal S1S2, pulses present bilaterally Chest/Lungs: CTA B, Symmetrical chest expansion, good air entry bilaterally GI/Abdomen: soft, NTND, good bowel sounds, no guarding or rebound /Bladder: no suprapubic tenderness, no CVA or paraspinal tenderness Extermity/Skin: no c/c/e, no obvious rash MSK: FROM x 4 Neuro: CN 2-12 grossly intact, no new focal deficits Psych: calm - Constitutional Vitals: Temp Pulse Resp BP Pulse Ox 98.0 F 81 16 113/67 93 03/06/18 09:13 03/06/18 14:00 03/06/18 14:00 03/06/18 14:00 03/06/18 14:00 General appearance: Present: no acute distress, well-nourished Results - Labs CBC & Chem 7: 03/07/18 04:33 03/07/18 04:33 Labs: Laboratory Last Values WBC 7.4 K/mm3 (4.5-11.0) 03/05/18 05:43 RBC 4.20 M/mm3 (3.65-5.03) 03/05/18 05:43 Hgb 9.6 gm/dl (10.1-14.3) L 03/05/18 05:43 Hct 31.0 % (30.3-42.9) 03/05/18 05:43 MCV 74 fl (79-97) L 03/05/18 05:43 MCH 23 pg (28-32) L 03/05/18 05:43 MCHC 31 % (30-34) 03/05/18 05:43 RDW 19.7 % (13.2-15.2) H 03/05/18 05:43 Plt Count 246 K/mm3 (140-440) 03/05/18 05:43 Lymph % (Auto) 43.8 % (13.4-35.0) H 03/05/18 05:43 [place] % (Auto) 7.7 % (0.0-7.3) H 03/05/18 05:43 Eos % (Auto) 6.0 % (0.0-4.3) H 03/05/18 05:43 Baso % (Auto) 0.5 % (0.0-1.8) 03/05/18 05:43 Lymph # 3.3 K/mm3 (1.2-5.4) 03/05/18 05:43 [place]at # 0.6 K/mm3 (0.0-0.8) 03/05/18 05:43 Eos # 0.4 K/mm3 (0.0-0.4) 03/05/18 05:43 Baso # 0.0 K/mm3 (0.0-0.1) 03/05/18 05:43 Add Manual Diff Complete 03/04/18 02:01 Total Counted 100 03/04/18 02:01 Seg Neutrophils % 42.0 % (40.0-70.0) 03/05/18 05:43 Seg Neuts % (Manual) 50.0 % (40.0-70.0) 03/04/18 02:01 Band Neutrophils % 4.0 % 03/04/18 02:01 Lymphocytes % (Manual) 34.0 % (13.4-35.0) 03/04/18 02:01 Reactive Lymphs % (Man) 3.0 % 03/04/18 02:01 Monocytes % (Manual) 6.0 % (0.0-7.3) 03/04/18 02:01 Eosinophils % (Manual) 3.0 % (0.0-4.3) 03/04/18 02:01 Basophils % (Manual) 0 % (0.0-1.8) 03/04/18 02:01 Metamyelocytes % 0 % 03/04/18 02:01 Myelocytes % 0 % 03/04/18 02:01 Promyelocytes % 0 % 03/04/18 02:01 Blast Cells % 0 % 03/04/18 02:01 Nucleated RBC % Not Reportable 03/04/18 02:01 Seg Neutrophils # 3.1 K/mm3 (1.8-7.7) 03/05/18 05:43 Seg Neutrophils # Man 3.4 K/mm3 (1.8-7.7) 03/04/18 02:01 Band Neutrophils # 0.3 K/mm3 03/04/18 02:01 Lymphocytes # (Manual) 2.3 K/mm3 (1.2-5.4) 03/04/18 02:01 Abs React Lymphs (Man) 0.2 K/mm3 03/04/18 02:01 Monocytes # (Manual) 0.4 K/mm3 (0.0-0.8) 03/04/18 02:01 Eosinophils # (Manual) 0.2 K/mm3 (0.0-0.4) 03/04/18 02:01 Basophils # (Manual) 0.0 K/mm3 (0.0-0.1) 03/04/18 02:01 Metamyelocytes # 0.0 K/mm3 03/04/18 02:01 Myelocytes # 0.0 K/mm3 03/04/18 02:01 Promyelocytes # 0.0 K/mm3 03/04/18 02:01 Blast Cells # 0.0 K/mm3 03/04/18 02:01 WBC Morphology Not Reportable 03/04/18 02:01 Hypersegmented Neuts Not Reportable 03/04/18 02:01 Hyposegmented Neuts Not Reportable 03/04/18 02:01 Hypogranular Neuts Not Reportable 03/04/18 02:01 Smudge Cells Not Reportable 03/04/18 02:01 Toxic Granulation Not Reportable 03/04/18 02:01 Toxic Vacuolation Not Reportable 03/04/18 02:01 Dohle Bodies Not Reportable 03/04/18 02:01 Pelger-Huet Anomaly Not Reportable 03/04/18 02:01 Jaime Rods Not Reportable 03/04/18 02:01 Platelet Estimate Consistent w auto 03/04/18 02:01 Clumped Platelets Not Reportable 03/04/18 02:01 Plt Clumps, EDTA Not Reportable 03/04/18 02:01 Large Platelets Not Reportable 03/04/18 02:01 Giant Platelets Not Reportable 03/04/18 02:01 Platelet Satelliting Not Reportable 03/04/18 02:01 Plt Morphology Comment Not Reportable 03/04/18 02:01 RBC Morphology Not Reportable 03/04/18 02:01 Dimorphic RBCs Not Reportable 03/04/18 02:01 Polychromasia Not Reportable 03/04/18 02:01 Hypochromasia Not Reportable 03/04/18 02:01 Poikilocytosis Not Reportable 03/04/18 02:01 Anisocytosis 1+ 03/04/18 02:01 Microcytosis Not Reportable 03/04/18 02:01 Macrocytosis Not Reportable 03/04/18 02:01 Spherocytes Not Reportable 03/04/18 02:01 Pappenheimer Bodies Not Reportable 03/04/18 02:01 Sickle Cells Not Reportable 03/04/18 02:01 Target Cells Few 03/04/18 02:01 Tear Drop Cells Not Reportable 03/04/18 02:01 Ovalocytes Not Reportable 03/04/18 02:01 Helmet Cells Not Reportable 03/04/18 02:01 Graves-Max Bodies Not Reportable 03/04/18 02:01 [place] Rings Not Reportable 03/04/18 02:01 Tricia Cells Not Reportable 03/04/18 02:01 Bite Cells Not Reportable 03/04/18 02:01 Crenated Cell Not Reportable 03/04/18 02:01 Elliptocytes Few 03/04/18 02:01 Acanthocytes (Spur) Not Reportable 03/04/18 02:01 Rouleaux Not Reportable 03/04/18 02:01 Hemoglobin C Crystals Not Reportable 03/04/18 02:01 Schistocytes Not Reportable 03/04/18 02:01 Malaria parasites Not Reportable 03/04/18 02:01 Koffi Bodies Not Reportable 03/04/18 02:01 Hem Pathologist Commnt No 03/04/18 02:01 PT 17.1 Sec. (12.2-14.9) H 03/06/18 10:37 INR 1.35 (0.87-1.13) H 03/06/18 10:37 APTT 79.6 Sec. (24.2-36.6) H* 03/03/18 08:10 Fibrinogen 504 mg/dl (211-480) H 03/06/18 10:37 D-Dimer 1228.97 ng/mlDDU (0-234) H 03/03/18 03:53 Heparin Anti-Xa Level 0.96 U.I./ml (0.3-0.7) H 03/06/18 10:37 Sodium 141 mmol/L (137-145) 03/05/18 05:43 Potassium 4.8 mmol/L (3.6-5.0) 03/05/18 05:43 Chloride 105.5 mmol/L (98-107) 03/05/18 05:43 Carbon Dioxide 25 mmol/L (22-30) 03/05/18 05:43 Anion Gap 15 mmol/L 03/05/18 05:43 BUN 11 mg/dL (7-17) 03/05/18 05:43 Creatinine 1.0 mg/dL (0.7-1.2) 03/05/18 05:43 Estimated GFR > 60 ml/min 03/05/18 05:43 BUN/Creatinine Ratio 11 % 03/05/18 05:43 Glucose 95 mg/dL (65-100) 03/05/18 05:43 Calcium 8.4 mg/dL (8.4-10.2) 03/05/18 05:43 Total Bilirubin < 0.20 mg/dL (0.1-1.2) 03/05/18 05:43 AST 16 units/L (5-40) 03/05/18 05:43 ALT 16 units/L (7-56) 03/05/18 05:43 Alkaline Phosphatase 79 units/L (35-129) 03/05/18 05:43 Troponin T < 0.010 ng/mL (0.00-0.029) 03/03/18 05:30 NT-Pro-B Natriuret Pep 1629 pg/mL (0-450) H 03/03/18 03:53 Total Protein 6.3 g/dL (6.3-8.2) 03/05/18 05:43 Albumin 3.6 g/dL (3.9-5) L 03/05/18 05:43 Albumin/Globulin Ratio 1.3 % 03/05/18 05:43 HCG, Qual Negative (Negative) 03/03/18 03:53 Blood Type B POSITIVE 03/06/18 10:37 Antibody Screen Negative 03/06/18 10:37 Nutrition/Malnutrition Assess - Dietary Evaluation Nutrition/Malnutrition Findings: Nutrition Notes Start: 03/05/18 16:50 Freq: Status: Active Protocol: Document 03/05/18 16:50 OL (Rec: 03/05/18 16:50 OL [id number]) Nutrition Notes Need for Assessment generated from: Education Initial or Follow up Brief Note Current Diet regular Labs/Tests Reviewed Pertinent Medications Warfarin Height 5 ft 4 in Weight 105.1 kg [place] Body Weight (lbs) 120.0 BMI 39.7 Weight Status Obese Subjective/Other Information RD screen for coumadin education. Pt. not in room at time of visit. Nutrition Intervention Follow-Up By: 03/06/18 Additional Comments f/u: coumadin DNI education
[2018-03-06] MEDS: DILAUDID IV PRN ×3 (15:22→22:24)
[2018-03-06] MEDS: XANAX PO PRN (18:18)
[2018-03-06] MEDS: TYLENOL PO PRN (18:18)
[2018-03-06 19:11] LABS: Basophils % (Auto) 0.3 % (0.0-1.8); Eosinophils # (Auto) 0.2 K/mm3 (0.0-0.4); Eosinophils % (Auto) 3.2 % (0.0-4.3); Hematocrit 30.9 % (30.3-42.9); Hemoglobin 9.5 gm/dl (10.1-14.3); Lymphocytes # (Auto) 2.5 K/mm3 (1.2-5.4); Lymphocytes % (Auto) 34.4 % (13.4-35.0); Mean Corpuscular HGB Conc 31 % (30-34); Mean Corpuscular Volume 75 fl (79-97); Monocytes # (Auto) 0.5 K/mm3 (0.0-0.8); Monocytes % (Auto) 6.6 % (0.0-7.3); Platelet Count 231 K/mm3 (140-440); Red Blood Count 4.12 M/mm3 (3.65-5.03)
[2018-03-06 19:12] LABS: Red Cell Distribution Width 20.1 % (13.2-15.2)
[2018-03-06] MEDS: SODIUM CHLORIDE FLUSH SYRINGE 10 ML IV SCH (22:26)
[2018-03-06] MEDS: PROTONIX PO SCH (22:26)
[2018-03-06] MEDS: INDERAL LA PO SCH (22:27)
[2018-03-06 23:06] LABS: Basophils # (Auto) 0.1 K/mm3 (0.0-0.1); Basophils % (Auto) 1.2 % (0.0-1.8); Eosinophils # (Auto) 0.3 K/mm3 (0.0-0.4); Eosinophils % (Auto) 3.7 % (0.0-4.3); Hematocrit 28.9 % (30.3-42.9); Hemoglobin 9.4 gm/dl (10.1-14.3); Lymphocytes # (Auto) 2.3 K/mm3 (1.2-5.4); Mean Corpuscular HGB Conc 33 % (30-34); Mean Corpuscular Volume 72 fl (79-97); Monocytes # (Auto) 0.4 K/mm3 (0.0-0.8); Platelet Count 255 K/mm3 (140-440); Red Blood Count 3.99 M/mm3 (3.65-5.03); Red Cell Distribution Width 19.6 % (13.2-15.2)
[2018-03-07] MEDS: DILAUDID IV PRN ×6 (03:04→22:54)
[2018-03-07 05:05] LABS: Hematocrit 38.9 % (30.3-42.9); Hemoglobin 11.8 gm/dl (10.1-14.3); Red Blood Count 5.18 M/mm3 (3.65-5.03)
[2018-03-07 05:06] LABS: Basophils % (Auto) 0.6 % (0.0-1.8); Eosinophils % (Auto) 3.5 % (0.0-4.3); Lymphocytes % (Auto) 21.8 % (13.4-35.0); Mean Corpuscular HGB Conc 30 % (30-34); Mean Corpuscular Volume 75 fl (79-97); Monocytes % (Auto) 8.5 % (0.0-7.3); Platelet Count 225 K/mm3 (140-440); Red Cell Distribution Width 20.2 % (13.2-15.2)
[2018-03-07 05:07] LABS: Basophils # (Auto) 0.1 K/mm3 (0.0-0.1); Eosinophils # (Auto) 0.3 K/mm3 (0.0-0.4); Lymphocytes # (Auto) 1.9 K/mm3 (1.2-5.4); Monocytes # (Auto) 0.7 K/mm3 (0.0-0.8)
[2018-03-07 05:14] LABS: BUN/Creatinine Ratio 7; Blood Urea Nitrogen 6 mg/dL (7-17); Calcium 7.8 mg/dL (8.4-10.2); Hemolysis Index 8
[2018-03-07] MEDS: TAPAZOLE PO SCH ×4 (06:23→22:54)
[2018-03-07 08:19] LABS: INR TNR (0.87-1.13)
[2018-03-07 08:20] LABS: Fibrinogen TNR mg/dl (211-480)
[2018-03-07 10:17] LABS: INR 1.4 (0.87-1.13)
[2018-03-07 10:18] LABS: Partial Thromboplastin Time 33.1 Sec. (24.2-36.6)
--- NOTE | 2018-03-07 10:39 | Progress Note ---
Assessment and Plan Recurrent PE CTA chest demonstrated a moderately sized saddle pulmonary embolus. previously treated with warfarin for oral anticoagulation therapy. INR sub- therapeutic on presentation at 1.00. 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 s/p catheter directed thrombolysis therapy H/O Aortic thrombus treated with a stent graft placement at [facility] in December 2017. Hypercoagulable state Recommendations: Continue current management Anticoagulation per vascular surgery Subjective Date of service: 03/07/18 Principal diagnosis: acute pulmonary embolism Interval history: No cardiac events overnight Tele is showing sinus tachycardia Objective Vital Signs Temp Pulse Pulse Resp BP Pulse Ox 03/07/18 08:30 99 H 22 115/56 92 03/07/18 08:15 101 H 20 102/58 90 03/07/18 08:10 92 03/07/18 08:01 91 03/07/18 08:00 100.2 F H 102 H 22 108/62 03/07/18 07:45 104 H 17 108/58 93 03/07/18 07:30 106 H 19 104/59 88 03/07/18 07:15 106 H 20 118/52 88 03/07/18 07:00 107 H 17 100/60 83 L 03/07/18 06:45 107 H 18 109/60 84 03/07/18 06:30 106 H 20 115/67 88 03/07/18 06:15 105 H 22 122/65 93 03/07/18 06:00 107 H 19 112/56 97 03/07/18 05:45 102 H 24 117/64 91 03/07/18 05:30 102 H 21 99/63 94 03/07/18 05:15 103 H 18 102/65 91 03/07/18 05:00 103 H 22 118/61 93 03/07/18 04:45 103 H 19 108/60 92 03/07/18 04:43 102 H 21 93 03/07/18 04:30 102 H 17 105/69 91 03/07/18 04:15 99 H 19 113/77 90 03/07/18 04:00 100 H 18 99/69 03/07/18 03:53 103 F H 03/07/18 03:45 101 H 17 106/64 03/07/18 03:40 100.3 F H 03/07/18 03:30 104 H 13 101/60 90 03/07/18 03:15 104 H 19 101/60 03/07/18 03:00 97 H 17 117/67 99 03/07/18 02:45 96 H 22 117/67 92 03/07/18 02:30 95 H 22 101/61 92 03/07/18 02:15 94 H 19 104/61 93 03/07/18 02:00 96 H 20 112/62 03/07/18 01:46 94 H 21 104/56 94 03/07/18 01:30 94 H 16 85/55 93 03/07/18 01:15 95 H 18 105/56 91 03/07/18 01:00 95 H 18 87/54 91 03/07/18 00:45 96 H 21 100/60 90 03/07/18 00:30 98 H 18 97/45 92 03/07/18 00:15 99 H 18 88/42 99 03/07/18 00:00 100.3 F H 100 H 97 H 19 98/58 97 03/06/18 23:45 99 H 15 89/59 85 03/06/18 23:30 101 H 16 93/30 87 03/06/18 23:27 100.3 F H 03/06/18 23:16 102 H 17 93/30 88 03/06/18 23:00 105 H 17 101/56 82 L 03/06/18 22:45 102 H 18 114/48 88 03/06/18 22:30 98 H 12 98/52 89 03/06/18 22:27 98 H 98/52 03/06/18 22:15 92 H 20 98/52 95 03/06/18 22:00 94 H 96 H 15 92/53 82 L 03/06/18 21:45 93 H 15 83/44 89 03/06/18 21:30 93 H 15 104/51 88 03/06/18 21:15 89 14 105/50 91 03/06/18 21:00 91 H 15 91/56 98 03/06/18 20:45 90 14 98/55 93 03/06/18 20:30 90 15 87/60 92 03/06/18 20:26 93 03/06/18 20:15 89 13 87/60 90 03/06/18 20:00 99.4 F 89 15 94/57 96 03/06/18 19:45 96 H 14 106/62 91 03/06/18 19:30 91 H 15 106/67 91 03/06/18 19:15 90 12 107/72 91 03/06/18 19:00 90 13 97/58 94 03/06/18 18:45 96 H 14 119/56 72 L 03/06/18 18:30 92 H 15 123/69 92 03/06/18 18:16 90 12 134/58 92 03/06/18 18:00 92 H 17 81 L 03/06/18 17:46 87 12 117/63 89 03/06/18 17:30 86 14 101/60 96 03/06/18 17:15 84 15 113/65 97 03/06/18 17:00 88 16 121/67 97 03/06/18 16:45 88 13 121/64 97 03/06/18 16:30 88 14 110/64 94 03/06/18 16:15 89 15 105/62 81 L 03/06/18 16:00 89 14 111/70 82 L 03/06/18 15:46 91 H 16 139/73 91 03/06/18 15:30 87 12 133/71 89 03/06/18 15:16 82 14 133/71 95 03/06/18 15:12 82 15 03/06/18 14:30 86 16 119/66 93 03/06/18 14:00 81 16 113/67 93 03/06/18 13:45 83 15 120/64 94 03/06/18 13:30 80 14 116/56 94 03/06/18 13:15 80 15 121/70 94 03/06/18 13:00 82 15 115/65 94 - Physical Examination General: No Apparent Distress HEENT: Positive: PERRL Neck: Positive: trachea midline Cardiac: Positive: Tachycardia Lungs: Positive: Normal Breath Sounds Neuro: Positive: Grossly Intact Abdomen: Positive: Active Bowel Sounds Extremities: Absent: edema - Labs and Meds Coagulation 03/06/18 03/07/18 03/07/18 Range/Units 10:37 06:39 08:49 PT 17.1 H TNR 17.6 H (12.2-14.9) Sec. INR 1.35 H TNR 1.40 H (0.87-1.13) APTT 33.1 (24.2-36.6) Sec. CBC 03/06/18 03/06/18 03/07/18 Range/Units 18:25 22:48 04:33 WBC 7.2 7.3 8.7 (4.5-11.0) K/mm3 RBC 4.12 3.99 5.18 H (3.65-5.03) M/mm3 Hgb 9.5 L 9.4 L 11.8 (10.1-14.3) gm/dl Hct 30.9 28.9 L 38.9 D (30.3-42.9) % Plt Count 231 255 225 (140-440) K/mm3 Lymph # 2.5 2.3 1.9 (1.2-5.4) K/mm3 [place] # 0.5 0.4 0.7 (0.0-0.8) K/mm3 Eos # 0.2 0.3 0.3 (0.0-0.4) K/mm3 Baso # 0.0 0.1 0.1 (0.0-0.1) K/mm3 Comprehensive Metabolic Panel 03/07/18 Range/Units 04:33 Sodium 140 (137-145) mmol/L Potassium 4.8 (3.6-5.0) mmol/L Chloride 103.6 (98-107) mmol/L Carbon Dioxide 23 (22-30) mmol/L BUN 6 L (7-17) mg/dL Creatinine 0.9 (0.7-1.2) mg/dL Glucose 111 H (65-100) mg/dL Calcium 7.8 L (8.4-10.2) mg/dL - Imaging and Cardiology EKG: report reviewed (sinus tachycardia)
[2018-03-07] MEDS: INDERAL LA PO SCH ×3 (10:57→22:54)
[2018-03-07] MEDS: LYRICA PO SCH ×3 (10:57→22:35)
[2018-03-07] MEDS: PROTONIX PO SCH ×3 (10:59→22:54)
[2018-03-07] MEDS: NACL 0.9% 1000 ML 1,000 ML SHEATH SCH (11:03)
--- NOTE | 2018-03-07 11:42 | Progress Note ---
Assessment and Plan Assessment and plan: Patient is a 37-year-old woman with history of hypercoagulable state with Aortic thrombus treated with a stent graft placement at [facility] in December 2017/pulmonary embolism/DVT, thyrotoxicosis, GERD, hypertension and bipolar disorder who presented to [facility] ED with syncope, leg edema, chest pains and SOB Acute Saddle pulmonary embolism with acute diastolic heart failure/right heart strain with acute hypoxic respiratory failure: s/p EKOS 03/06/18 in ICU now Syncope, cardiogenic due to the above Acute hypoxic respiratory failure due to the above Acute diastolic heart failure due to the above Bipolar disorder: Continue Seroquel Hyperthyroidism: Continue methimazole Peripheral neuropathy: Continue Lyrica Hypercoagulable state with history of aortic thrombus/PE/DVT: For planned HANK for aortic thrombus evaluation. DVT prophylaxis: Patient already on IV heparin and Coumadin CCT 31 minutes History Interval history: Patient was seen and examined. Follow-up on current diagnosis of PE, still with BARNETT. Overnight uneventful. Patient denies any nausea/vomiting or severe headaches. Imaging, nursing note, chart, labs and old chart reviewed. Discussed with patient. Hospitalist Physical - Physical exam Narrative exam: Gen: WDWN, NAD, Awake, Alert, Orientated HEENT: NCAT, EOMI, PERRL, OP Clear Neck: supple, no adenopathy, no thyromegaly, no JVD CVS/Heart: RRR, normal S1S2, pulses present bilaterally Chest/Lungs: CTA B, Symmetrical chest expansion, good air entry bilaterally GI/Abdomen: soft, NTND, good bowel sounds, no guarding or rebound /Bladder: no suprapubic tenderness, no CVA or paraspinal tenderness Extermity/Skin: no c/c/e, no obvious rash MSK: FROM x 4 Neuro: CN 2-12 grossly intact, no new focal deficits Psych: calm - Constitutional Vitals: Temp Pulse Resp BP Pulse Ox 100.2 F H 112 H 22 109/56 67 L 03/07/18 08:00 03/07/18 11:30 03/07/18 11:30 03/07/18 11:30 03/07/18 11:30 General appearance: Present: no acute distress, well-nourished Results - Labs CBC & Chem 7: 03/07/18 04:33 03/07/18 04:33 Labs: Laboratory Last Values WBC 8.7 K/mm3 (4.5-11.0) 03/07/18 04:33 RBC 5.18 M/mm3 (3.65-5.03) H 03/07/18 04:33 Hgb 11.8 gm/dl (10.1-14.3) 03/07/18 04:33 Hct 38.9 % (30.3-42.9) D 03/07/18 04:33 MCV 75 fl (79-97) L 03/07/18 04:33 MCH 23 pg (28-32) L 03/07/18 04:33 MCHC 30 % (30-34) 03/07/18 04:33 RDW 20.2 % (13.2-15.2) H 03/07/18 04:33 Plt Count 225 K/mm3 (140-440) 03/07/18 04:33 Lymph % (Auto) 21.8 % (13.4-35.0) 03/07/18 04:33 [place] % (Auto) 8.5 % (0.0-7.3) H 03/07/18 04:33 Eos % (Auto) 3.5 % (0.0-4.3) 03/07/18 04:33 Baso % (Auto) 0.6 % (0.0-1.8) 03/07/18 04:33 Lymph # 1.9 K/mm3 (1.2-5.4) 03/07/18 04:33 [place] # 0.7 K/mm3 (0.0-0.8) 03/07/18 04:33 Eos # 0.3 K/mm3 (0.0-0.4) 03/07/18 04:33 Baso # 0.1 K/mm3 (0.0-0.1) 03/07/18 04:33 Add Manual Diff Complete 03/04/18 02:01 Total Counted 100 03/04/18 02:01 Seg Neutrophils % 65.6 % (40.0-70.0) 03/07/18 04:33 Seg Neuts % (Manual) 50.0 % (40.0-70.0) 03/04/18 02:01 Band Neutrophils % 4.0 % 03/04/18 02:01 Lymphocytes % (Manual) 34.0 % (13.4-35.0) 03/04/18 02:01 Reactive Lymphs % (Man) 3.0 % 03/04/18 02:01 Monocytes % (Manual) 6.0 % (0.0-7.3) 03/04/18 02:01 Eosinophils % (Manual) 3.0 % (0.0-4.3) 03/04/18 02:01 Basophils % (Manual) 0 % (0.0-1.8) 03/04/18 02:01 Metamyelocytes % 0 % 03/04/18 02:01 Myelocytes % 0 % 03/04/18 02:01 Promyelocytes % 0 % 03/04/18 02:01 Blast Cells % 0 % 03/04/18 02:01 Nucleated RBC % Not Reportable 03/04/18 02:01 Seg Neutrophils # 5.7 K/mm3 (1.8-7.7) 03/07/18 04:33 Seg Neutrophils # Man 3.4 K/mm3 (1.8-7.7) 03/04/18 02:01 Band Neutrophils # 0.3 K/mm3 03/04/18 02:01 Lymphocytes # (Manual) 2.3 K/mm3 (1.2-5.4) 03/04/18 02:01 Abs React Lymphs (Man) 0.2 K/mm3 03/04/18 02:01 Monocytes # (Manual) 0.4 K/mm3 (0.0-0.8) 03/04/18 02:01 Eosinophils # (Manual) 0.2 K/mm3 (0.0-0.4) 03/04/18 02:01 Basophils # (Manual) 0.0 K/mm3 (0.0-0.1) 03/04/18 02:01 Metamyelocytes # 0.0 K/mm3 03/04/18 02:01 Myelocytes # 0.0 K/mm3 03/04/18 02:01 Promyelocytes # 0.0 K/mm3 03/04/18 02:01 Blast Cells # 0.0 K/mm3 03/04/18 02:01 WBC Morphology Not Reportable 03/04/18 02:01 Hypersegmented Neuts Not Reportable 03/04/18 02:01 Hyposegmented Neuts Not Reportable 03/04/18 02:01 Hypogranular Neuts Not Reportable 03/04/18 02:01 Smudge Cells Not Reportable 03/04/18 02:01 Toxic Granulation Not Reportable 03/04/18 02:01 Toxic Vacuolation Not Reportable 03/04/18 02:01 Dohle Bodies Not Reportable 03/04/18 02:01 Pelger-Huet Anomaly Not Reportable 03/04/18 02:01 Jaime Rods Not Reportable 03/04/18 02:01 Platelet Estimate Consistent w auto 03/04/18 02:01 Clumped Platelets Not Reportable 03/04/18 02:01 Plt Clumps, EDTA Not Reportable 03/04/18 02:01 Large Platelets Not Reportable 03/04/18 02:01 Giant Platelets Not Reportable 03/04/18 02:01 Platelet Satelliting Not Reportable 03/04/18 02:01 Plt Morphology Comment Not Reportable 03/04/18 02:01 RBC Morphology Not Reportable 03/04/18 02:01 Dimorphic RBCs Not Reportable 03/04/18 02:01 Polychromasia Not Reportable 03/04/18 02:01 Hypochromasia Not Reportable 03/04/18 02:01 Poikilocytosis Not Reportable 03/04/18 02:01 Anisocytosis 1+ 03/04/18 02:01 Microcytosis Not Reportable 03/04/18 02:01 Macrocytosis Not Reportable 03/04/18 02:01 Spherocytes Not Reportable 03/04/18 02:01 Pappenheimer Bodies Not Reportable 03/04/18 02:01 Sickle Cells Not Reportable 03/04/18 02:01 Target Cells Few 03/04/18 02:01 Tear Drop Cells Not Reportable 03/04/18 02:01 Ovalocytes Not Reportable 03/04/18 02:01 Helmet Cells Not Reportable 03/04/18 02:01 Graves-Edon Bodies Not Reportable 03/04/18 02:01 [place] Rings Not Reportable 03/04/18 02:01 Tricia Cells Not Reportable 03/04/18 02:01 Bite Cells Not Reportable 03/04/18 02:01 Crenated Cell Not Reportable 03/04/18 02:01 Elliptocytes Few 03/04/18 02:01 Acanthocytes (Spur) Not Reportable 03/04/18 02:01 Rouleaux Not Reportable 03/04/18 02:01 Hemoglobin C Crystals Not Reportable 03/04/18 02:01 Schistocytes Not Reportable 03/04/18 02:01 Malaria parasites Not Reportable 03/04/18 02:01 [place] Bodies Not Reportable 03/04/18 02:01 Hem Pathologist Commnt No 03/04/18 02:01 PT 17.6 Sec. (12.2-14.9) H 03/07/18 08:49 INR 1.40 (0.87-1.13) H 03/07/18 08:49 APTT 33.1 Sec. (24.2-36.6) 03/07/18 08:49 Fibrinogen 554 mg/dl (211-480) H 03/07/18 08:49 D-Dimer 1228.97 ng/mlDDU (0-234) H 03/03/18 03:53 Heparin Anti-Xa Level TNR 03/07/18 06:39 Sodium 140 mmol/L (137-145) 03/07/18 04:33 Potassium 4.8 mmol/L (3.6-5.0) 03/07/18 04:33 Chloride 103.6 mmol/L (98-107) 03/07/18 04:33 Carbon Dioxide 23 mmol/L (22-30) 03/07/18 04:33 Anion Gap 18 mmol/L 03/07/18 04:33 BUN 6 mg/dL (7-17) L 03/07/18 04:33 Creatinine 0.9 mg/dL (0.7-1.2) 03/07/18 04:33 Estimated GFR > 60 ml/min 03/07/18 04:33 BUN/Creatinine Ratio 7 % 03/07/18 04:33 Glucose 111 mg/dL (65-100) H 03/07/18 04:33 Calcium 7.8 mg/dL (8.4-10.2) L 03/07/18 04:33 Total Bilirubin < 0.20 mg/dL (0.1-1.2) 03/05/18 05:43 AST 16 units/L (5-40) 03/05/18 05:43 ALT 16 units/L (7-56) 03/05/18 05:43 Alkaline Phosphatase 79 units/L (35-129) 03/05/18 05:43 Troponin T < 0.010 ng/mL (0.00-0.029) 03/03/18 05:30 NT-Pro-B Natriuret Pep 1629 pg/mL (0-450) H 03/03/18 03:53 Total Protein 6.3 g/dL (6.3-8.2) 03/05/18 05:43 Albumin 3.6 g/dL (3.9-5) L 03/05/18 05:43 Albumin/Globulin Ratio 1.3 % 03/05/18 05:43 HCG, Qual Negative (Negative) 03/03/18 03:53 Blood Type B POSITIVE 03/06/18 10:37 Antibody Screen Negative 03/06/18 10:37 Nutrition/Malnutrition Assess - Dietary Evaluation Nutrition/Malnutrition Findings: Nutrition Notes Start: 03/05/18 16:50 Freq: Status: Active Protocol: Document 03/06/18 14:41 RM (Rec: 03/06/18 14:42 RM [id number]) Nutrition Notes Initial or Follow up Brief Note Current Diagnosis Hypertension Other Pertinent Diagnosis GERD, Bipolar disorder, Acute PE, Bilateral extremity edema X 3 days Subjective/Other Information Pt not in room at time of visit. Nutrition Intervention Follow-Up By: 03/07/18 Additional Comments Follow for diet education
--- NOTE | 2018-03-07 12:53 | Progress Note ---
Assessment and Plan Syncope Saddle pulmonary embolism Hypercoagulable state Tobacco abuse disorder Microcytic anemia Morbid Obesity - placed on venti mask - titrate FiO2 to keep sats > 90% - will schedule qhs BIPAP - get baseline ABG - stabilize before transfering to remove EkOS catheter - continue Anticoagulation with heparin - transition to oral anticoagulation post EkOS - Need for medical compliance discussed at admission - Smoking cessation counselling done at the bedside earlier - 2D ECHO & HANK reviewed (EF 35-40%) - Resume chronic home medications - Hematology outpatient follow up - observe in ICO post EkOS removal for a few hours prior to transfer to [facility] - continue other care per attending / other consultants .... re-evaluate in am & prn The high probability of a clinically significant, sudden or life-threatening deterioration of the [respiratory, cardiovascular] system(s) required my full and direct attention, intervention and personal management. The aggregate critical care time was [35] minutes without overlap. Time includes spent on; [x] Data Review and interpretation [x] Patient assessment and monitoring of vital signs [x] Documentation [x] Medication orders and management Subjective Date of service: 03/07/18 Principal diagnosis: Syncope; Saddle pulmonary embolism; Hypercoagulable state; Tobacco abuse Interval history: Patient is seen today for: Syncope; Saddle pulmonary embolism; Hypercoagulable state; Tobacco abuse disorder Seen and examined at bedside; 24hour events reviewed; nursing and respiratory care staff consulted; no adverse overnight events reported to me; transferred to ICU after EkOS procedure for saddle P.E.; found in room with oxygen off and desaturated to 60's O2 sat's; denies chest pains; + headache; no N/V/F/C Objective Vital Signs - 12hr 03/07/18 03/07/18 03/07/18 01:00 01:15 01:30 Temperature Pulse Rate 95 H 95 H 94 H Pulse Rate [ From Monitor] Respiratory 18 18 16 Rate Blood Pressure 87/54 105/56 85/55 O2 Sat by Pulse 91 91 93 Oximetry 03/07/18 03/07/18 03/07/18 01:46 02:00 02:15 Temperature Pulse Rate 94 H 96 H 94 H Pulse Rate [ From Monitor] Respiratory 21 20 19 Rate Blood Pressure 104/56 112/62 104/61 O2 Sat by Pulse 94 93 Oximetry 0103/07/18 03/07/18 02:30 02:45 03:00 Temperature Pulse Rate 95 H 96 H 97 H Pulse Rate [ From Monitor] Respiratory 22 22 17 Rate Blood Pressure 101/61 117/67 117/67 O2 Sat by Pulse 92 92 99 Oximetry 03/07/18 03/07/18 03/07/18 03:15 03:30 03:40 Temperature 100.3 F H Pulse Rate 104 H 104 H Pulse Rate [ From Monitor] Respiratory 19 13 Rate Blood Pressure 101/60 101/60 O2 Sat by Pulse 90 Oximetry 03/07/18 03/07/18 03/07/18 03:45 03:53 04:00 Temperature 103 F H Pulse Rate 101 H 100 H Pulse Rate [ From Monitor] Respiratory 17 18 Rate Blood Pressure 106/64 99/69 O2 Sat by Pulse Oximetry 03/07/18 03/07/18 03/07/18 04:15 04:30 04:43 Temperature Pulse Rate 99 H 102 H Pulse Rate [ 102 H From Monitor] Respiratory 19 17 21 Rate Blood Pressure 113/77 105/69 O2 Sat by Pulse 90 91 93 Oximetry 03/07/18 03/07/18 03/07/18 04:45 05:00 05:15 Temperature Pulse Rate 103 H 103 H 103 H Pulse Rate [ From Monitor] Respiratory 19 22 18 Rate Blood Pressure 108/60 118/61 102/65 O2 Sat by Pulse 92 93 91 Oximetry 03/07/18 03/07/18 03/07/18 05:30 05:45 06:00 Temperature Pulse Rate 102 H 102 H 107 H Pulse Rate [ From Monitor] Respiratory 21 24 19 Rate Blood Pressure 99/63 117/64 112/56 O2 Sat by Pulse 94 91 97 Oximetry 03/07/18 03/07/18 03/07/18 06:15 06:30 06:45 Temperature Pulse Rate 105 H 106 H 107 H Pulse Rate [ From Monitor] Respiratory 22 20 18 Rate Blood Pressure 122/65 115/67 109/60 O2 Sat by Pulse 93 88 84 Oximetry 03/07/18 03/07/18 03/07/18 07:00 07:15 07:30 Temperature Pulse Rate 107 H 106 H 106 H Pulse Rate [ From Monitor] Respiratory 17 20 19 Rate Blood Pressure 100/60 118/52 104/59 O2 Sat by Pulse 83 L 88 88 Oximetry 03/07/18 03/07/18 03/07/18 07:45 08:00 08:01 Temperature 100.2 F H Pulse Rate 104 H 102 H Pulse Rate [ From Monitor] Respiratory 17 22 Rate Blood Pressure 108/58 108/62 O2 Sat by Pulse 93 91 Oximetry 03/07/18 03/07/18 03/07/18 08:10 08:15 08:30 Temperature Pulse Rate 101 H 99 H Pulse Rate [ From Monitor] Respiratory 20 22 Rate Blood Pressure 102/58 115/56 O2 Sat by Pulse 92 90 92 Oximetry 03/07/18 03/07/18 03/07/18 08:45 09:00 09:15 Temperature Pulse Rate 102 H 107 H 105 H Pulse Rate [ From Monitor] Respiratory 21 15 29 H Rate Blood Pressure 107/61 111/55 109/56 O2 Sat by Pulse 91 86 82 L Oximetry 03/07/18 03/07/18 03/07/18 09:30 09:45 10:00 Temperature Pulse Rate 102 H 102 H 102 H Pulse Rate [ From Monitor] Respiratory 25 H 21 25 H Rate Blood Pressure 122/53 104/50 121/47 O2 Sat by Pulse 79 L 73 L 80 L Oximetry 03/07/18 03/07/18 03/07/18 10:15 10:30 10:45 Temperature Pulse Rate 105 H 108 H 107 H Pulse Rate [ From Monitor] Respiratory 24 26 H 16 Rate Blood Pressure 123/53 125/61 125/61 O2 Sat by Pulse 75 L 77 L 99 Oximetry 03/07/18 03/07/18 03/07/18 10:57 11:01 11:15 Temperature Pulse Rate 108 H 111 H 112 H Pulse Rate [ From Monitor] Respiratory 26 H 24 Rate Blood Pressure 121/38 118/57 112/60 O2 Sat by Pulse 74 L 71 L Oximetry 03/07/18 11:30 Temperature Pulse Rate 112 H Pulse Rate [ From Monitor] Respiratory 22 Rate Blood Pressure 109/56 O2 Sat by Pulse 67 L Oximetry Constitutional: lethargic, appears uncomfortable, other (young obese AAF, normocephalic and atraumatic ) Eyes: non-icteric ENT: oropharynx moist Neck: supple, no lymphadenopathy Effort: mildly labored Ascultation: Bilateral: diminished breath sounds, rales (bases) Percussion: Bilateral: not dull Cardiovascular: regular rate and rhythm, other (No R/M) Gastrointestinal: normoactive bowel sounds, soft, non-tender, non-distended Integumentary: normal Extremities: no cyanosis, no edema, pulses normal, no ischemia or petechiae Neurologic: normal mental status, non-focal exam, pupils equal and round, CN II- XII normal, motor strength normal and Psychiatric: depressed CBC and BMP: 03/07/18 04:33 03/07/18 04:33 ABG, PT/INR, D-dimer: PT/INR, D-dimer PT 17.6 Sec. (12.2-14.9) H 03/07/18 08:49 INR 1.40 (0.87-1.13) H 03/07/18 08:49 D-Dimer 1228.97 ng/mlDDU (0-234) H 03/03/18 03:53 Abnormal lab findings: Abnormal Labs 03/02/18 03/03/18 03/03/18 23:38 03:53 03:53 RBC Hgb Hct MCV 76 L MCH 23 L RDW 20.7 H Lymph % (Auto) [place] % (Auto) Eos % (Auto) PT INR APTT Fibrinogen D-Dimer 1228.97 H Heparin Anti-Xa Level Sodium Chloride BUN Glucose Calcium NT-Pro-B Natriuret Pep 1629 H Albumin 03/03/18 03/03/18 03/04/18 08:10 15:38 00:04 RBC Hgb Hct MCV MCH RDW Lymph % (Auto) [place] % (Auto) Eos % (Auto) PT 15.2 H INR 1.16 H APTT 79.6 H* Fibrinogen D-Dimer Heparin Anti-Xa Level 0.12 L 0.14 L Sodium Chloride BUN Glucose Calcium NT-Pro-B Natriuret Pep Albumin 03/04/18 03/04/18 03/04/18 02:01 02:01 07:21 RBC Hgb Hct MCV 74 L MCH 23 L RDW 19.7 H Lymph % (Auto) [place] % (Auto) Eos % (Auto) PT INR APTT Fibrinogen D-Dimer Heparin Anti-Xa Level < 0.10 L Sodium 136 L Chloride 95.9 L BUN Glucose 109 H Calcium NT-Pro-B Natriuret Pep Albumin 03/05/18 03/05/18 03/05/18 01:10 05:43 05:43 RBC Hgb 9.6 L Hct MCV 74 L MCH 23 L RDW 19.7 H Lymph % (Auto) 43.8 H [place] % (Auto) 7.7 H Eos % (Auto) 6.0 H PT INR APTT Fibrinogen D-Dimer Heparin Anti-Xa Level 0.10 L Sodium Chloride BUN Glucose Calcium NT-Pro-B Natriuret Pep Albumin 3.6 L 03/05/18 03/05/18 03/05/18 05:43 10:05 15:00 RBC Hgb Hct MCV MCH RDW Lymph % (Auto) [place] % (Auto) Eos % (Auto) PT 16.8 H INR 1.32 H APTT Fibrinogen D-Dimer Heparin Anti-Xa Level 0.22 L < 0.10 L Sodium Chloride BUN Glucose Calcium NT-Pro-B Natriuret Pep Albumin 03/05/18 03/06/18 03/06/18 20:27 10:37 18:25 RBC Hgb 9.5 L Hct MCV 75 L MCH 23 L RDW 20.1 H Lymph % (Auto) [place] % (Auto) Eos % (Auto) PT 17.1 H INR 1.35 H APTT Fibrinogen 504 H D-Dimer Heparin Anti-Xa Level 0.82 H 0.96 H Sodium Chloride BUN Glucose Calcium NT-Pro-B Natriuret Pep Albumin 03/06/18 03/06/18 03/07/18 22:48 22:48 04:33 RBC 5.18 H Hgb 9.4 L Hct 28.9 L MCV 72 L 75 L MCH 24 L 23 L RDW 19.6 H 20.2 H Lymph % (Auto) [place] % (Auto) 8.5 H Eos % (Auto) PT INR APTT Fibrinogen 607 H D-Dimer Heparin Anti-Xa Level 0.14 L Sodium Chloride BUN Glucose Calcium NT-Pro-B Natriuret Pep Albumin 03/07/18 03/07/18 04:33 08:49 RBC Hgb Hct MCV MCH RDW Lymph % (Auto) [place] % (Auto) Eos % (Auto) PT 17.6 H INR 1.40 H APTT Fibrinogen 554 H D-Dimer Heparin Anti-Xa Level Sodium Chloride BUN 6 L Glucose 111 H Calcium 7.8 L NT-Pro-B Natriuret Pep Albumin Chest x-ray: image reviewed Allied health notes reviewed: nursing
[2018-03-07] MEDS ORDERED: HEPARIN/NS 5000 UNIT/500ML(CATH LAB) 500 ML IR ONE (13:17)
[2018-03-07] MEDS ORDERED: HEPARIN 10,000 UNITS/10 ML ONE (13:17)
[2018-03-07] MEDS: XYLOCAINE 2% INFILTRATI ONE ×3 (13:28→13:44)
[2018-03-07] MEDS: SUBLIMAZE ONE ×3 (13:28→13:48)
[2018-03-07] MEDS: VERSED ONE ×2 (13:28→13:43)
--- NOTE | 2018-03-07 14:20 | Operative Report ---
Operative Report Operative Report: Date of Procedure: 03/07/2018 Pre-operative Diagnosis: Saddle Pulmonary Embolus Status Post Thrombolysis Post-operative Diagnosis: Same Procedure(s): 1. Removal of Bilateral Pulmonary Artery Thrombolysis Catheters 2. Completion Pulmonary Artery Arteriogram 3. Monitored Moderate Sedation 4. Radiologic Supervision and Interpretation Surgeon: Shayne Sal M.D. Bill Cutter: None Anesthesia: Local and IV sedation EBL: Minimal Counts: Correct Complications: None Condition: Stable Findings: The right and left main pulmonary arteries appeared to be free of thrombus as well as the proximal segmental branches. Specimen: None Indication: The patient is a 37-year-old female with history of hypercoagulable state who presented with a saddle pulmonary embolus that resulted in significant right heart strain that was demonstrated on 2-D echo. Given these findings and her need for continuous supplement oxygen she was in need of thrombolysis to reduce the thrombus burden. She underwent the procedure of placement of the thrombolysis catheters and tolerated the drip overnight and now returns for removal of the catheters. She was given the risk, benefits, and alternative procedures and consented to the procedure. Description of Procedure: The patient was brought to the denture laboratory technician and laid in supine position. She was adequately sedated her right groin and indwelling sheaths and catheters were prepped and draped in normal sterile fashion. 1% lidocaine was used to anesthetize the skin and soft tissue surrounding the sheaths in the right groin. The sutures securing the sheath and catheters in place were then cut. The thrombolysis wire was removed from the right pulmonary artery EKOS catheter and a 0.035 Bentson wire was advanced through the catheter and into the distal pulmonary artery. The catheter was then removed leaving the wire in place. A 6 Czech JR4 was advanced over the wire and into the main pulmonary artery and a nonselective pulmonary arteriogram was performed with the previously described findings. At this point all catheters and wires were removed and then the sheath were pulled and manual pressure was held to achieve hemostasis. Once hemostasis was achieved the groin was dressed with sterile gauze and a Tegaderm pressure dressing. The patient tolerated the procedure well. All sponge, needle, and instrument counts were correct. The patient was taken back to the intensive care unit in stable condition.
[2018-03-07] MEDS: LOVENOX SUB-Q SCH ×2 (16:25→22:56)
[2018-03-07] MEDS: PLAVIX PO SCH (16:50)
[2018-03-07] MEDS: COUMADIN PO SCH ×2 (17:00→22:35)
[2018-03-07] MEDS: SODIUM CHLORIDE FLUSH SYRINGE 10 ML IV SCH ×4 (17:02→23:04)
[2018-03-08] MEDS: DILAUDID IV PRN ×5 (02:39→17:32)
[2018-03-08] MEDS: NACL 0.9% 1000 ML 1,000 ML IV SCH (04:33)
[2018-03-08] MEDS: TAPAZOLE PO SCH ×3 (05:54→23:07)
[2018-03-08 06:46] LABS: INR 1.89 (0.87-1.13)
--- NOTE | 2018-03-08 08:46 | Progress Note ---
Addendum entered and electronically signed by DEVIKA MELO MD 03/08/18 16:41: Patient will be resumed on routine heart failure medical therapy prior to discha rge. Original Note: Assessment and Plan Recurrent PE CTA chest demonstrated a moderately sized saddle pulmonary embolus. previously treated with warfarin for oral anticoagulation therapy. INR sub- therapeutic on presentation at 1.00. 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 s/p catheter directed thrombolysis therapy on plavix and warfarin H/O Aortic thrombus treated with a stent graft placement at [facility] in December 2017. Hypercoagulable state Conservative cardiac management. Subjective Date of service: 03/08/18 Principal diagnosis: Syncope; Saddle pulmonary embolism; Hypercoagulable state; Tobacco abuse Interval history: No cardiac complaints. Objective Vital Signs Temp Pulse Pulse Resp BP Pulse Ox 03/08/18 05:37 99.0 F 92 H 18 102/62 98 03/07/18 22:54 111/66 03/07/18 22:48 99.4 F 85 24 111/61 97 03/07/18 22:01 101 H 34 H 117/36 03/07/18 21:51 94 H 23 117/36 03/07/18 21:44 94 03/07/18 21:41 90 20 117/36 75 L 03/07/18 21:31 95 H 19 117/36 77 L 03/07/18 21:21 94 H 20 117/36 03/07/18 21:11 91 H 14 117/36 03/07/18 21:01 91 H 23 117/36 73 L 03/07/18 20:51 87 18 117/36 03/07/18 20:42 83 18 95 03/07/18 20:41 84 15 117/36 98 03/07/18 20:31 84 18 117/36 97 03/07/18 20:15 90 26 H 123/56 91 03/07/18 20:01 87 23 112/53 86 03/07/18 20:00 99.2 F 03/07/18 19:45 91 H 24 123/56 97 03/07/18 19:30 91 H 22 123/56 98 03/07/18 19:15 94 H 19 127/63 95 03/07/18 19:00 94 H 24 127/63 94 03/07/18 18:45 98 H 36 H 75/60 96 03/07/18 18:31 96 H 24 75/60 98 03/07/18 18:15 94 H 19 75/60 97 03/07/18 18:01 94 H 18 107/65 97 03/07/18 17:45 94 H 22 124/75 89 03/07/18 17:30 94 H 18 107/65 96 03/07/18 17:15 91 H 20 129/63 82 L 03/07/18 17:00 96 H 24 129/63 03/07/18 16:45 92 H 25 H 124/75 03/07/18 16:31 97/69 79 L 03/07/18 16:15 82 23 101/59 97 03/07/18 16:05 92 03/07/18 16:00 100 F H 81 24 109/56 100 03/07/18 15:45 82 24 106/58 99 03/07/18 15:30 91 H 20 101/64 92 03/07/18 15:15 87 23 86/58 99 03/07/18 15:00 85 21 111/46 100 03/07/18 14:45 86 22 96/54 98 03/07/18 14:30 96/56 99 03/07/18 12:30 110 H 23 103/52 69 L 03/07/18 12:15 109 H 23 106/54 69 L 03/07/18 12:00 100 F H 116 H 21 109/55 69 L 03/07/18 11:45 111 H 22 108/50 67 L 03/07/18 11:30 112 H 22 109/56 67 L 03/07/18 11:15 112 H 24 112/60 71 L 03/07/18 11:01 111 H 26 H 118/57 74 L 03/07/18 10:57 108 H 121/38 03/07/18 10:45 107 H 16 125/61 99 03/07/18 10:30 108 H 26 H 125/61 77 L 03/07/18 10:15 105 H 24 123/53 75 L 03/07/18 10:00 102 H 25 H 121/47 80 L 03/07/18 09:45 102 H 21 104/50 73 L 03/07/18 09:30 102 H 25 H 122/53 79 L 03/07/18 09:15 105 H 29 H 109/56 82 L 03/07/18 09:00 107 H 15 111/55 86 03/07/18 08:45 102 H 21 107/61 91 - Physical Examination General: No Apparent Distress HEENT: Positive: PERRL Neck: Positive: trachea midline Cardiac: Positive: Reg Rate and Rhythm Lungs: Positive: Decreased Breath Sounds Neuro: Positive: Grossly Intact Abdomen: Positive: Active Bowel Sounds Extremities: Present: +1 Edema - Labs and Meds Coagulation 03/07/18 03/08/18 Range/Units 08:49 06:04 PT 17.6 H 22.1 H (12.2-14.9) Sec. INR 1.40 H 1.89 H (0.87-1.13) APTT 33.1 (24.2-36.6) Sec. - Allied health notes Allied health notes reviewed: nursing
--- NOTE | 2018-03-08 09:34 | Progress Note ---
Assessment and Plan Syncope Saddle pulmonary embolism s/p EKOS Hypercoagulable state Tobacco abuse disorder Microcytic anemia Morbid Obesity -Anticoagulation with heparin, resume coumadin -Need for medical compliance discussed -Smoking cessation counselling done at the bedside -Resume chronic home medications -Hematology outpatient follow up -Wean supplemental oxygen for O2 sats >90% -- 2D ECHO & HANK reviewed (EF 35-40%) -Cardioprotective measures - continue other care per attending / other consultants Discharge planning Subjective Date of service: 03/08/18 Principal diagnosis: Syncope; Saddle pulmonary embolism; Hypercoagulable state; Tobacco abuse Interval history: Seen and examined. Vitals, labs, medications, chart and 24 hour events reviewed. No chest pain, no shortness of breath. Some nausea, denies any vomiting. On going groin pain Objective - Exam Narrative Exam: Gen: WDWN, NAD, Awake, Alert, Orientated HEENT: NCAT, EOMI, PERRL, OP Clear Neck: supple, no adenopathy, no thyromegaly, no JVD CVS/Heart: RRR, normal S1S2, pulses present bilaterally Chest/Lungs: CTA B, Symmetrical chest expansion, good air entry bilaterally GI/Abdomen: soft, NTND, good bowel sounds, no guarding or rebound /Bladder: no suprapubic tenderness, no CVA or paraspinal tenderness Extermity/Skin: no c/c/e, no obvious rash MSK: FROM x 4 Neuro: CN 2-12 grossly intact, no new focal deficits Psych: calm Vital Signs - 12hr 03/07/18 03/07/18 03/07/18 21:41 21:44 21:51 Temperature Pulse Rate 90 94 H Respiratory 20 23 Rate Blood Pressure 117/36 117/36 O2 Sat by Pulse 75 L 94 Oximetry 03/07/18 03/07/18 03/07/18 22:01 22:48 22:54 Temperature 99.4 F Pulse Rate 101 H 85 Respiratory 34 H 24 Rate Blood Pressure 117/36 111/61 111/66 O2 Sat by Pulse 97 Oximetry 03/08/18 05:37 Temperature 99.0 F Pulse Rate 92 H Respiratory 18 Rate Blood Pressure 102/62 O2 Sat by Pulse 98 Oximetry Constitutional: lethargic, appears uncomfortable, other (young obese AAF, normocephalic and atraumatic ) Eyes: non-icteric ENT: oropharynx moist Neck: supple, no lymphadenopathy Effort: mildly labored Ascultation: Bilateral: diminished breath sounds, rales (bases) Percussion: Bilateral: not dull Cardiovascular: regular rate and rhythm, other (No R/M) Gastrointestinal: normoactive bowel sounds, soft, non-tender, non-distended Integumentary: normal Extremities: no cyanosis, no edema, pulses normal, no ischemia or petechiae Neurologic: normal mental status, non-focal exam, pupils equal and round, CN II- XII normal, motor strength normal and Psychiatric: depressed CBC and BMP: 03/07/18 04:33 03/07/18 04:33 ABG, PT/INR, D-dimer: PT/INR, D-dimer PT 22.1 Sec. (12.2-14.9) H 03/08/18 06:04 INR 1.89 (0.87-1.13) H 03/08/18 06:04 D-Dimer 1228.97 ng/mlDDU (0-234) H 03/03/18 03:53 Abnormal lab findings: Abnormal Labs 03/02/18 03/03/18 03/03/18 23:38 03:53 03:53 RBC Hgb Hct MCV 76 L MCH 23 L RDW 20.7 H Lymph % (Auto) [place] % (Auto) Eos % (Auto) PT INR APTT Fibrinogen D-Dimer 1228.97 H Heparin Anti-Xa Level Sodium Chloride BUN Glucose Calcium NT-Pro-B Natriuret Pep 1629 H Albumin 03/03/18 03/03/18 03/04/18 08:10 15:38 00:04 RBC Hgb Hct MCV MCH RDW Lymph % (Auto) [place] % (Auto) Eos % (Auto) PT 15.2 H INR 1.16 H APTT 79.6 H* Fibrinogen D-Dimer Heparin Anti-Xa Level 0.12 L 0.14 L Sodium Chloride BUN Glucose Calcium NT-Pro-B Natriuret Pep Albumin 03/04/18 03/04/18 03/04/18 02:01 02:01 07:21 RBC Hgb Hct MCV 74 L MCH 23 L RDW 19.7 H Lymph % (Auto) [place] % (Auto) Eos % (Auto) PT INR APTT Fibrinogen D-Dimer Heparin Anti-Xa Level < 0.10 L Sodium 136 L Chloride 95.9 L BUN Glucose 109 H Calcium NT-Pro-B Natriuret Pep Albumin 03/05/18 03/05/18 03/05/18 01:10 05:43 05:43 RBC Hgb 9.6 L Hct MCV 74 L MCH 23 L RDW 19.7 H Lymph % (Auto) 43.8 H [place] % (Auto) 7.7 H Eos % (Auto) 6.0 H PT INR APTT Fibrinogen D-Dimer Heparin Anti-Xa Level 0.10 L Sodium Chloride BUN Glucose Calcium NT-Pro-B Natriuret Pep Albumin 3.6 L 03/05/18 03/05/18 03/05/18 05:43 10:05 15:00 RBC Hgb Hct MCV MCH RDW Lymph % (Auto) [place] % (Auto) Eos % (Auto) PT 16.8 H INR 1.32 H APTT Fibrinogen D-Dimer Heparin Anti-Xa Level 0.22 L < 0.10 L Sodium Chloride BUN Glucose Calcium NT-Pro-B Natriuret Pep Albumin 03/05/18 03/06/18 03/06/18 20:27 10:37 18:25 RBC Hgb 9.5 L Hct MCV 75 L MCH 23 L RDW 20.1 H Lymph % (Auto) [place] % (Auto) Eos % (Auto) PT 17.1 H INR 1.35 H APTT Fibrinogen 504 H D-Dimer Heparin Anti-Xa Level 0.82 H 0.96 H Sodium Chloride BUN Glucose Calcium NT-Pro-B Natriuret Pep Albumin 03/06/18 03/06/18 03/07/18 22:48 22:48 04:33 RBC 5.18 H Hgb 9.4 L Hct 28.9 L MCV 72 L 75 L MCH 24 L 23 L RDW 19.6 H 20.2 H Lymph % (Auto) [place] % (Auto) 8.5 H Eos % (Auto) PT INR APTT Fibrinogen 607 H D-Dimer Heparin Anti-Xa Level 0.14 L Sodium Chloride BUN Glucose Calcium NT-Pro-B Natriuret Pep Albumin 03/07/18 03/07/18 03/08/18 04:33 08:49 06:04 RBC Hgb Hct MCV MCH RDW Lymph % (Auto) [place] % (Auto) Eos % (Auto) PT 17.6 H 22.1 H INR 1.40 H 1.89 H APTT Fibrinogen 554 H D-Dimer Heparin Anti-Xa Level Sodium Chloride BUN 6 L Glucose 111 H Calcium 7.8 L NT-Pro-B Natriuret Pep Albumin Allied health notes reviewed: nursing
[2018-03-08] MEDS: LYRICA PO SCH ×2 (10:57)
[2018-03-08] MEDS: PLAVIX PO SCH (10:57)
[2018-03-08] MEDS: PROTONIX PO SCH ×2 (10:57→23:07)
[2018-03-08] MEDS: LOVENOX SUB-Q SCH ×2 (11:02→23:03)
[2018-03-08] MEDS: INDERAL LA PO SCH ×2 (11:03→23:04)
[2018-03-08] MEDS: SODIUM CHLORIDE FLUSH SYRINGE 10 ML IV SCH ×2 (11:13→23:06)
--- NOTE | 2018-03-08 14:00 | Progress Note ---
Assessment and Plan Assessment and plan: Patient is a 37-year-old woman with history of hypercoagulable state with Aortic thrombus treated with a stent graft placement at [facility] in December 2017/pulmonary embolism/DVT, thyrotoxicosis, GERD, hypertension and bipolar disorder who presented to [facility] ED with syncope, leg edema, chest pains and SOB Acute Saddle pulmonary embolism with acute diastolic heart failure/right heart strain with acute hypoxic respiratory failure: s/p EKOS 03/06/18, anticoagulation Syncope, cardiogenic due to the above Acute hypoxic respiratory failure due to the above Acute systolic heart failure due to the above Bipolar disorder: Continue Seroquel Hyperthyroidism: Continue methimazole Peripheral neuropathy: Continue Lyrica Hypercoagulable state with history of aortic thrombus/PE/DVT: HANK done, EF 35- 40% DVT prophylaxis: Patient already on IV heparin and Coumadin History Interval history: Patient was seen and examined. Follow-up on current diagnosis of PE, still with BARNETT. Overnight uneventful. Patient denies any nausea/vomiting or severe headaches. Imaging, nursing note, chart, labs and old chart reviewed. Discussed with patient. Hospitalist Physical - Physical exam Narrative exam: Gen: WDWN, NAD, Awake, Alert, Orientated HEENT: NCAT, EOMI, PERRL, OP Clear Neck: supple, no adenopathy, no thyromegaly, no JVD CVS/Heart: RRR, normal S1S2, pulses present bilaterally Chest/Lungs: CTA B, Symmetrical chest expansion, good air entry bilaterally GI/Abdomen: soft, NTND, good bowel sounds, no guarding or rebound /Bladder: no suprapubic tenderness, no CVA or paraspinal tenderness Extermity/Skin: no c/c/e, no obvious rash MSK: FROM x 4 Neuro: CN 2-12 grossly intact, no new focal deficits Psych: calm - Constitutional Vitals: Temp Pulse Resp BP Pulse Ox 98.7 F 103 H 18 109/59 93 03/08/18 13:12 03/08/18 13:12 03/08/18 13:12 03/08/18 13:12 03/08/18 13:12 General appearance: Present: no acute distress, well-nourished Results - Labs CBC & Chem 7: 03/07/18 04:33 03/07/18 04:33 Labs: Laboratory Last Values WBC 8.7 K/mm3 (4.5-11.0) 03/07/18 04:33 RBC 5.18 M/mm3 (3.65-5.03) H 03/07/18 04:33 Hgb 11.8 gm/dl (10.1-14.3) 03/07/18 04:33 Hct 38.9 % (30.3-42.9) D 03/07/18 04:33 MCV 75 fl (79-97) L 03/07/18 04:33 MCH 23 pg (28-32) L 03/07/18 04:33 MCHC 30 % (30-34) 03/07/18 04:33 RDW 20.2 % (13.2-15.2) H 03/07/18 04:33 Plt Count 225 K/mm3 (140-440) 03/07/18 04:33 Lymph % (Auto) 21.8 % (13.4-35.0) 03/07/18 04:33 Emanuel % (Auto) 8.5 % (0.0-7.3) H 03/07/18 04:33 Eos % (Auto) 3.5 % (0.0-4.3) 03/07/18 04:33 Baso % (Auto) 0.6 % (0.0-1.8) 03/07/18 04:33 Lymph # 1.9 K/mm3 (1.2-5.4) 03/07/18 04:33 Emanuel # 0.7 K/mm3 (0.0-0.8) 03/07/18 04:33 Eos # 0.3 K/mm3 (0.0-0.4) 03/07/18 04:33 Baso # 0.1 K/mm3 (0.0-0.1) 03/07/18 04:33 Add Manual Diff Complete 03/04/18 02:01 Total Counted 100 03/04/18 02:01 Seg Neutrophils % 65.6 % (40.0-70.0) 03/07/18 04:33 Seg Neuts % (Manual) 50.0 % (40.0-70.0) 03/04/18 02:01 Band Neutrophils % 4.0 % 03/04/18 02:01 Lymphocytes % (Manual) 34.0 % (13.4-35.0) 03/04/18 02:01 Reactive Lymphs % (Man) 3.0 % 03/04/18 02:01 Monocytes % (Manual) 6.0 % (0.0-7.3) 03/04/18 02:01 Eosinophils % (Manual) 3.0 % (0.0-4.3) 03/04/18 02:01 Basophils % (Manual) 0 % (0.0-1.8) 03/04/18 02:01 Metamyelocytes % 0 % 03/04/18 02:01 Myelocytes % 0 % 03/04/18 02:01 Promyelocytes % 0 % 03/04/18 02:01 Blast Cells % 0 % 03/04/18 02:01 Nucleated RBC % Not Reportable 03/04/18 02:01 Seg Neutrophils # 5.7 K/mm3 (1.8-7.7) 03/07/18 04:33 Seg Neutrophils # Man 3.4 K/mm3 (1.8-7.7) 03/04/18 02:01 Band Neutrophils # 0.3 K/mm3 03/04/18 02:01 Lymphocytes # (Manual) 2.3 K/mm3 (1.2-5.4) 03/04/18 02:01 Abs React Lymphs (Man) 0.2 K/mm3 03/04/18 02:01 Monocytes # (Manual) 0.4 K/mm3 (0.0-0.8) 03/04/18 02:01 Eosinophils # (Manual) 0.2 K/mm3 (0.0-0.4) 03/04/18 02:01 Basophils # (Manual) 0.0 K/mm3 (0.0-0.1) 03/04/18 02:01 Metamyelocytes # 0.0 K/mm3 03/04/18 02:01 Myelocytes # 0.0 K/mm3 03/04/18 02:01 Promyelocytes # 0.0 K/mm3 03/04/18 02:01 Blast Cells # 0.0 K/mm3 03/04/18 02:01 WBC Morphology Not Reportable 03/04/18 02:01 Hypersegmented Neuts Not Reportable 03/04/18 02:01 Hyposegmented Neuts Not Reportable 03/04/18 02:01 Hypogranular Neuts Not Reportable 03/04/18 02:01 Smudge Cells Not Reportable 03/04/18 02:01 Toxic Granulation Not Reportable 03/04/18 02:01 Toxic Vacuolation Not Reportable 03/04/18 02:01 Dohle Bodies Not Reportable 03/04/18 02:01 Pelger-Huet Anomaly Not Reportable 03/04/18 02:01 Jaime Rods Not Reportable 03/04/18 02:01 Platelet Estimate Consistent w auto 03/04/18 02:01 Clumped Platelets Not Reportable 03/04/18 02:01 Plt Clumps, EDTA Not Reportable 03/04/18 02:01 Large Platelets Not Reportable 03/04/18 02:01 Giant Platelets Not Reportable 03/04/18 02:01 Platelet Satelliting Not Reportable 03/04/18 02:01 Plt Morphology Comment Not Reportable 03/04/18 02:01 RBC Morphology Not Reportable 03/04/18 02:01 Dimorphic RBCs Not Reportable 03/04/18 02:01 Polychromasia Not Reportable 03/04/18 02:01 Hypochromasia Not Reportable 03/04/18 02:01 Poikilocytosis Not Reportable 03/04/18 02:01 Anisocytosis 1+ 03/04/18 02:01 Microcytosis Not Reportable 03/04/18 02:01 Macrocytosis Not Reportable 03/04/18 02:01 Spherocytes Not Reportable 03/04/18 02:01 Pappenheimer Bodies Not Reportable 03/04/18 02:01 Sickle Cells Not Reportable 03/04/18 02:01 Target Cells Few 03/04/18 02:01 Tear Drop Cells Not Reportable 03/04/18 02:01 Ovalocytes Not Reportable 03/04/18 02:01 Helmet Cells Not Reportable 03/04/18 02:01 [place] Bodies Not Reportable 03/04/18 02:01 Max Rings Not Reportable 03/04/18 02:01 Tricia Cells Not Reportable 03/04/18 02:01 Bite Cells Not Reportable 03/04/18 02:01 Crenated Cell Not Reportable 03/04/18 02:01 Elliptocytes Few 03/04/18 02:01 Acanthocytes (Spur) Not Reportable 03/04/18 02:01 Rouleaux Not Reportable 03/04/18 02:01 Hemoglobin C Crystals Not Reportable 03/04/18 02:01 Schistocytes Not Reportable 03/04/18 02:01 Malaria parasites Not Reportable 03/04/18 02:01 Koffi Bodies Not Reportable 03/04/18 02:01 Hem Pathologist Commnt No 03/04/18 02:01 PT 22.1 Sec. (12.2-14.9) H 03/08/18 06:04 INR 1.89 (0.87-1.13) H 03/08/18 06:04 APTT 33.1 Sec. (24.2-36.6) 03/07/18 08:49 Fibrinogen 554 mg/dl (211-480) H 03/07/18 08:49 D-Dimer 1228.97 ng/mlDDU (0-234) H 03/03/18 03:53 Heparin Anti-Xa Level TNR 03/07/18 06:39 Sodium 140 mmol/L (137-145) 03/07/18 04:33 Potassium 4.8 mmol/L (3.6-5.0) 03/07/18 04:33 Chloride 103.6 mmol/L (98-107) 03/07/18 04:33 Carbon Dioxide 23 mmol/L (22-30) 03/07/18 04:33 Anion Gap 18 mmol/L 03/07/18 04:33 BUN 6 mg/dL (7-17) L 03/07/18 04:33 Creatinine 0.9 mg/dL (0.7-1.2) 03/07/18 04:33 Estimated GFR > 60 ml/min 03/07/18 04:33 BUN/Creatinine Ratio 7 % 03/07/18 04:33 Glucose 111 mg/dL (65-100) H 03/07/18 04:33 POC Glucose 90 (70-105) 03/08/18 07:58 Calcium 7.8 mg/dL (8.4-10.2) L 03/07/18 04:33 Total Bilirubin < 0.20 mg/dL (0.1-1.2) 03/05/18 05:43 AST 16 units/L (5-40) 03/05/18 05:43 ALT 16 units/L (7-56) 03/05/18 05:43 Alkaline Phosphatase 79 units/L (35-129) 03/05/18 05:43 Troponin T < 0.010 ng/mL (0.00-0.029) 03/03/18 05:30 NT-Pro-B Natriuret Pep 1629 pg/mL (0-450) H 03/03/18 03:53 Total Protein 6.3 g/dL (6.3-8.2) 03/05/18 05:43 Albumin 3.6 g/dL (3.9-5) L 03/05/18 05:43 Albumin/Globulin Ratio 1.3 % 03/05/18 05:43 HCG, Qual Negative (Negative) 03/03/18 03:53 Blood Type B POSITIVE 03/06/18 10:37 Antibody Screen Negative 03/06/18 10:37 Nutrition/Malnutrition Assess - Dietary Evaluation Nutrition/Malnutrition Findings: Nutrition Notes Start: 03/05/18 16:50 Freq: Status: Active Protocol: Document 03/08/18 10:01 LM (Rec: 03/08/18 10:31 LM [id number]) Co-Sign 03/08/18 10:01 OL Nutrition Notes Initial or Follow up Brief Note Current Diagnosis Hypertension Other Pertinent Diagnosis GERD, Bipolar disorder, Acute PE, Bilateral extremity edema X 3 days Current Diet Regular diet Labs/Tests Reviewed Pertinent Medications Coumadin Height 5 ft 4 in Weight 104.6 kg [place] Body Weight (lbs) 120.0 BMI 39.5 Subjective/Other Information Coumadin education complete. #1 Nutrition Diagnosis Food and nutrition-related knowledge deficit Etiology Coumadin As Evidenced by Signs and Symptoms Pt need for more information on vitamin k/Coumadin interaction Nutrition Intervention Teaching Recipient Patient Learning Readiness Good Teaching Methods Discussion Handout Response to Teaching Verbalize understanding Education Handouts Provided Vitamin K and Medications Barriers to Learning No Barriers RD phone number provided Yes Patient aware of follow up options Yes Revisit per MD consult or patient Sign Off request:
--- NOTE | 2018-03-08 15:10 | Progress Note ---
Assessment and Plan S/P Bilateral Pulmonary Artery Thrombolysis for saddle pulmonary Embolus. The patient's breathing has significantly improved. Her INR is still subtherapeutic. She can be discharged from a surgical standpoint when her INR is between 2-3. She also needs to be on Plavix for her Aortic Stent Graft. Both medications should be maintained for life. Subjective Date of service: 03/08/18 Principal diagnosis: Syncope; Saddle pulmonary embolism; Hypercoagulable state; Tobacco abuse Interval history: Patient without significant events overnight. Was transferred to the floor today. She states her breathing has improved since admission. No other complaints. Objective - Constitutional Vitals: Vital Signs - 12hr 03/08/18 03/08/18 03/08/18 05:37 10:00 11:03 Temperature 99.0 F Pulse Rate 92 H 89 Respiratory 18 Rate Blood Pressure 102/62 105/61 O2 Sat by Pulse 98 99 Oximetry 03/08/18 13:12 Temperature 98.7 F Pulse Rate 103 H Respiratory 18 Rate Blood Pressure 109/59 O2 Sat by Pulse 93 Oximetry General appearance: Present: no acute distress - Neck Neck: supple, no masses or JVD - Respiratory Respiratory effort: normal - Breasts Breasts: deferred - Cardiovascular Rhythm: regular Extremities: no ischemia Extremity abnormal: edema (bialterally), other (right groin is without hematoma) - Gastrointestinal General gastrointestinal: Present: soft, non-tender, non-distended - Genitourinary Female genitourinary: deferred - Labs CBC & Chem 7: 03/07/18 04:33 03/07/18 04:33 Labs: Abnormal lab results 03/08/18 Range/Units 06:04 PT 22.1 H (12.2-14.9) Sec. INR 1.89 H (0.87-1.13) Medications & Allergies - Medications Allergies/Adverse Reactions: Allergies acetaminophen [From Percocet] Allergy (Verified 10/19/17 03:05) Itching garlic Allergy (Verified 10/19/17 03:05) Unknown ibuprofen [From Motrin] Allergy (Verified 10/19/17 03:05) Unknown oxycodone [From Percocet] Allergy (Verified 10/19/17 03:05) Itching peanut oil Allergy (Verified 10/19/17 03:05) Unknown Penicillins Allergy (Verified 10/19/17 03:05) Unknown Home Medications: Home Medications Medication Instructions Recorded Confirmed Last Taken Type ALPRAZolam [Xanax TAB] 0.25 mg PO BID PRN #60 tablet 05/26/17 03/04/18 Unknown Rx Pregabalin [Lyrica] 100 mg PO QAM #30 capsule 05/26/17 03/04/18 Unknown Rx Acetaminophen [Acetaminophen TAB] 650 mg PO Q4H PRN #30 tablet 10/20/17 03/04/18 Unknown Rx Pantoprazole [Protonix TAB] 40 mg PO BID #60 tablet 10/20/17 03/04/18 Unknown Rx Propranolol LA [Inderal LA] 60 mg PO Q12HR #60 capsule 10/20/17 03/04/18 Unknown Rx QUEtiapine [SEROquel] 100 mg PO DAILY #30 tablet 10/20/17 03/04/18 Unknown Rx QUEtiapine [SEROquel] 400 mg PO QHS #30 tablet 10/20/17 03/04/18 Unknown Rx Warfarin [Coumadin] 7.5 mg PO DAILY@1700 #60 tablet 10/20/17 03/04/18 Unknown Rx methIMAzole [Tapazole] 10 mg PO Q8HR #90 tablet 10/20/17 03/04/18 Unknown Rx Active Medications: Generic Name Dose Route Start Last Admin Trade Name Freq PRN Reason Stop Dose Admin Acetaminophen 650 mg 03/03/18 07:20 03/06/18 18:18 Tylenol PO 650 mg Q4H PRN Administration Pain MILD(1-3)/Fever >100.5/OSEGUERA Acetaminophen/Hydrocodone Bitart 1 each 03/07/18 14:25 [place] 5/325 PO Q4H PRN Pain, Moderate (4-6) Alprazolam 0.25 mg 03/04/18 11:13 03/06/18 18:18 Xanax PO 0.25 mg BID PRN Administration Anxiety Clopidogrel Bisulfate 75 mg 03/07/18 15:00 03/08/18 10:57 Plavix PO 75 mg QDAY ELLIOTT Administration Enoxaparin Sodium 100 mg 03/07/18 15:00 03/08/18 11:02 Lovenox SUB-Q 100 mg Q12HR ELLIOTT Administration Hydromorphone HCl 1 mg 03/04/18 06:00 03/08/18 14:12 Dilaudid IV 1 mg Q3H PRN Administration Pain , Severe (7-10) Sodium Chloride 1,000 mls @ 100 mls/hr 03/03/18 08:00 03/08/18 04:33 Nacl 0.9% 1000 Ml IV 100 mls/hr DIRECT ELLIOTT Administration Methimazole 10 mg 03/04/18 14:00 03/08/18 14:11 Tapazole PO 10 mg Q8HR ELLIOTT Administration Ondansetron HCl 4 mg 03/06/18 10:49 Zofran IV Q8H PRN Nausea And Vomiting Pantoprazole Sodium 40 mg 03/04/18 22:00 03/08/18 10:57 Protonix PO 40 mg BID ELLIOTT Administration Pregabalin 75 mg 03/07/18 10:00 03/08/18 10:57 Lyrica PO 75 mg QAM ELLIOTT Administration Pregabalin 25 mg 03/07/18 10:00 03/08/18 10:57 Lyrica PO 25 mg QAM ELLIOTT Administration Propranolol HCl 60 mg 03/04/18 12:00 03/08/18 11:03 Inderal La PO Not Given Q12HR ELLIOTT Quetiapine Fumarate 400 mg 03/04/18 22:00 03/07/18 22:54 Seroquel PO 400 mg QHS ELLIOTT Administration Quetiapine Fumarate 100 mg 03/04/18 10:00 03/08/18 10:57 Seroquel PO 100 mg QDAY ELLIOTT Administration Sodium Chloride 10 ml 03/03/18 10:00 03/08/18 11:13 Sodium Chloride Flush Syringe 10 Ml IV 10 ml BID ELLIOTT Administration Sodium Chloride 10 ml 03/03/18 07:20 Sodium Chloride Flush Syringe 10 Ml IV PRN PRN LINE FLUSH Trazodone HCl 100 mg 03/04/18 11:13 Desyrel PO QHS PRN Sleep Warfarin Sodium 15 mg 03/07/18 17:00 03/07/18 17:00 Coumadin PO 15 mg DAILY@1700 ELLIOTT Administration Protocol
[2018-03-08] MEDS: NORCO 5/325 PO PRN (15:49)
[2018-03-08] MEDS: COUMADIN PO SCH (17:32)
[2018-03-08] MEDS: XANAX PO PRN (20:39)
[2018-03-09 06:21] LABS: INR 2.78 (0.87-1.13)
[2018-03-09] MEDS: TAPAZOLE PO SCH ×2 (06:44→17:01)
[2018-03-09] MEDS: NORCO 10/325 PO PRN ×3 (06:46→10:51)
--- NOTE | 2018-03-09 08:38 | Progress Note ---
Addendum entered and electronically signed by DEVIKA MELO MD 03/09/18 10:15: Conservative cardiac medical therapy. Original Note: Assessment and Plan Recurrent PE CTA chest demonstrated a moderately sized saddle pulmonary embolus. previously treated with warfarin for oral anticoagulation therapy. INR sub-therapeutic on presentation at 1.00. 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 s/p catheter directed thrombolysis therapy on plavix and warfarin H/O Aortic thrombus treated with a stent graft placement at [facility] in December 2017. Hypercoagulable state MPI 05/2017: no ischemia Recommend: Medical therapy for dilated cardiomyopathy when blood pressure allows. Otherwise, conservative cardiac management. Subjective Date of service: 03/09/18 Principal diagnosis: Syncope; Saddle pulmonary embolism; Hypercoagulable state; Tobacco abuse Interval history: Patient has no complaints. No reported events on tele. Objective Vital Signs Temp Pulse Resp BP Pulse Ox 03/09/18 07:59 93 03/09/18 06:46 20 03/09/18 05:31 98.7 F 83 16 114/59 92 03/09/18 00:00 20 03/08/18 23:04 88 100/58 03/08/18 22:52 98.7 F 88 16 100/58 91 03/08/18 17:42 93 03/08/18 17:41 98.4 F 100 H 15 101/58 85 03/08/18 13:12 98.7 F 103 H 18 109/59 93 03/08/18 11:03 89 105/61 03/08/18 10:00 99 - Physical Examination General: No Apparent Distress HEENT: Positive: PERRL Neck: Positive: trachea midline Cardiac: Positive: Reg Rate and Rhythm Lungs: Positive: Decreased Breath Sounds Neuro: Positive: Grossly Intact Abdomen: Positive: Active Bowel Sounds Extremities: Present: +1 Edema - Labs and Meds Coagulation 03/09/18 Range/Units 04:49 PT 29.7 H (12.2-14.9) Sec. INR 2.78 H (0.87-1.13) - Allied health notes Allied health notes reviewed: nursing
[2018-03-09] MEDS ORDERED: ZESTRIL PO SCH (10:00)
[2018-03-09] MEDS: PLAVIX PO SCH (10:16)
[2018-03-09] MEDS: PROTONIX PO SCH (10:16)
[2018-03-09] MEDS: LYRICA PO SCH ×2 (10:16)
[2018-03-09] MEDS: LOVENOX SUB-Q SCH (10:16)
[2018-03-09] MEDS: SODIUM CHLORIDE FLUSH SYRINGE 10 ML IV SCH (10:17)
[2018-03-09] MEDS: INDERAL LA PO SCH (10:22)
--- NOTE | 2018-03-09 12:07 | Progress Note ---
Assessment and Plan Syncope Saddle pulmonary embolism s/p catheter directed thrombolytic therapy Hypercoagulable state Tobacco abuse disorder Microcytic anemia -Anticoagulation -Need for medical compliance discussed -Smoking cessation counselling done at the bedside -Resume chronic home medications -Hematology outpatient follow up -home oxygen evaluation Stable for discharge planning from pulmonary standpoint Subjective Date of service: 03/09/18 Principal diagnosis: Syncope; Saddle pulmonary embolism; Hypercoagulable state; Tobacco abuse Interval history: Seen and examined. Vitals, labs, medications, chart and 24 hour events reviewed. 24 hour events reviewed. No chest pain, no shortness of breath. Some nausea, denies any vomiting. On going groin pain Objective - Exam Narrative Exam: Gen: WDWN, NAD, Awake, Alert, Orientated HEENT: NCAT, EOMI, PERRL, OP Clear Neck: supple, no adenopathy, no thyromegaly, no JVD CVS/Heart: RRR, normal S1S2, pulses present bilaterally Chest/Lungs: CTA B, Symmetrical chest expansion, good air entry bilaterally GI/Abdomen: soft, NTND, good bowel sounds, no guarding or rebound /Bladder: no suprapubic tenderness, no CVA or paraspinal tenderness Extermity/Skin: no c/c/e, no obvious rash MSK: FROM x 4 Neuro: CN 2-12 grossly intact, no new focal deficits Psych: calm Vital Signs - 12hr 03/09/18 03/09/18 03/09/18 05:31 06:46 07:59 Temperature 98.7 F Pulse Rate 83 Respiratory 16 20 Rate Blood Pressure 114/59 O2 Sat by Pulse 92 93 Oximetry 03/09/18 03/09/18 10:22 11:56 Temperature 97.3 F L Pulse Rate 90 89 Respiratory 16 Rate Blood Pressure 112/57 103/58 O2 Sat by Pulse 97 Oximetry Constitutional: lethargic, appears uncomfortable, other (young obese AAF, normocephalic and atraumatic ) Eyes: non-icteric ENT: oropharynx moist Neck: supple, no lymphadenopathy Effort: mildly labored Ascultation: Bilateral: diminished breath sounds, rales (bases) Percussion: Bilateral: not dull Cardiovascular: regular rate and rhythm, other (No R/M) Gastrointestinal: normoactive bowel sounds, soft, non-tender, non-distended Integumentary: normal Extremities: no cyanosis, no edema, pulses normal, no ischemia or petechiae Neurologic: normal mental status, non-focal exam, pupils equal and round, CN II- XII normal, motor strength normal and Psychiatric: depressed CBC and BMP: 03/07/18 04:33 03/07/18 04:33 ABG, PT/INR, D-dimer: PT/INR, D-dimer PT 29.7 Sec. (12.2-14.9) H 03/09/18 04:49 INR 2.78 (0.87-1.13) H 03/09/18 04:49 D-Dimer 1228.97 ng/mlDDU (0-234) H 03/03/18 03:53 Abnormal lab findings: Abnormal Labs 03/02/18 03/03/18 03/03/18 23:38 03:53 03:53 RBC Hgb Hct MCV 76 L MCH 23 L RDW 20.7 H Lymph % (Auto) Levy % (Auto) Eos % (Auto) PT INR APTT Fibrinogen D-Dimer 1228.97 H Heparin Anti-Xa Level Sodium Chloride BUN Glucose Calcium NT-Pro-B Natriuret Pep 1629 H Albumin 03/03/18 03/03/18 03/04/18 08:10 15:38 00:04 RBC Hgb Hct MCV MCH RDW Lymph % (Auto) Levy % (Auto) Eos % (Auto) PT 15.2 H INR 1.16 H APTT 79.6 H* Fibrinogen D-Dimer Heparin Anti-Xa Level 0.12 L 0.14 L Sodium Chloride BUN Glucose Calcium NT-Pro-B Natriuret Pep Albumin 03/04/18 03/04/18 03/04/18 02:01 02:01 07:21 RBC Hgb Hct MCV 74 L MCH 23 L RDW 19.7 H Lymph % (Auto) Levy % (Auto) Eos % (Auto) PT INR APTT Fibrinogen D-Dimer Heparin Anti-Xa Level < 0.10 L Sodium 136 L Chloride 95.9 L BUN Glucose 109 H Calcium NT-Pro-B Natriuret Pep Albumin 03/05/18 03/05/18 03/05/18 01:10 05:43 05:43 RBC Hgb 9.6 L Hct MCV 74 L MCH 23 L RDW 19.7 H Lymph % (Auto) 43.8 H Levy % (Auto) 7.7 H Eos % (Auto) 6.0 H PT INR APTT Fibrinogen D-Dimer Heparin Anti-Xa Level 0.10 L Sodium Chloride BUN Glucose Calcium NT-Pro-B Natriuret Pep Albumin 3.6 L 03/05/18 03/05/18 03/05/18 05:43 10:05 15:00 RBC Hgb Hct MCV MCH RDW Lymph % (Auto) Levy % (Auto) Eos % (Auto) PT 16.8 H INR 1.32 H APTT Fibrinogen D-Dimer Heparin Anti-Xa Level 0.22 L < 0.10 L Sodium Chloride BUN Glucose Calcium NT-Pro-B Natriuret Pep Albumin 03/05/18 03/06/18 03/06/18 20:27 10:37 18:25 RBC Hgb 9.5 L Hct MCV 75 L MCH 23 L RDW 20.1 H Lymph % (Auto) Levy % (Auto) Eos % (Auto) PT 17.1 H INR 1.35 H APTT Fibrinogen 504 H D-Dimer Heparin Anti-Xa Level 0.82 H 0.96 H Sodium Chloride BUN Glucose Calcium NT-Pro-B Natriuret Pep Albumin 03/06/18 03/06/18 03/07/18 22:48 22:48 04:33 RBC 5.18 H Hgb 9.4 L Hct 28.9 L MCV 72 L 75 L MCH 24 L 23 L RDW 19.6 H 20.2 H Lymph % (Auto) Levy % (Auto) 8.5 H Eos % (Auto) PT INR APTT Fibrinogen 607 H D-Dimer Heparin Anti-Xa Level 0.14 L Sodium Chloride BUN Glucose Calcium NT-Pro-B Natriuret Pep Albumin 03/07/18 03/07/18 03/08/18 04:33 08:49 06:04 RBC Hgb Hct MCV MCH RDW Lymph % (Auto) Levy % (Auto) Eos % (Auto) PT 17.6 H 22.1 H INR 1.40 H 1.89 H APTT Fibrinogen 554 H D-Dimer Heparin Anti-Xa Level Sodium Chloride BUN 6 L Glucose 111 H Calcium 7.8 L NT-Pro-B Natriuret Pep Albumin 03/09/18 04:49 RBC Hgb Hct MCV MCH RDW Lymph % (Auto) Levy % (Auto) Eos % (Auto) PT 29.7 H INR 2.78 H APTT Fibrinogen D-Dimer Heparin Anti-Xa Level Sodium Chloride BUN Glucose Calcium NT-Pro-B Natriuret Pep Albumin Allied health notes reviewed: nursing
--- NOTE | 2018-03-09 16:06 | Discharge Summary ---
Providers - Providers Date of Admission: 03/03/18 07:20 Date of discharge: 03/09/18 Attending physician: NURYS SANTA 03/04/18 12:27 Consult to Physician [CONS] Routine Comment: Consulting Provider: MARIA EUGENIA KULKARNI Physician Instructions: Reason For Exam: Acute PE 03/04/18 12:28 Consult to Physician [CONS] Routine Comment: Consulting Provider: SHIRA STROUD Physician Instructions: Reason For Exam: AV Thrombus Consult to Physician [CONS] Routine Comment: Consulting Provider: LILIANA REYNOLDS Physician Instructions: Reason For Exam: Acute PE Primary care physician: COMPANY CONTROLLER Hospitalization Condition: Stable Hospital course: Patient is a 37-year-old woman with history of hypercoagulable state with Aortic thrombus treated with a stent graft placement at [facility] in December 2017/pulmonary embolism/DVT, thyrotoxicosis, GERD, hypertension and bipolar disorder who presented to [facility] ED with syncope, leg edema, chest pains and SOB Acute Saddle pulmonary embolism with acute diastolic heart failure/right heart strain with acute hypoxic respiratory failure: s/p EKOS 03/06/18, anticoagulation Syncope, cardiogenic due to the above Acute hypoxic respiratory failure due to the above Acute systolic heart failure due to the above Bipolar disorder: Continue Seroquel Hyperthyroidism: Continue methimazole Peripheral neuropathy: Continue Lyrica Hypercoagulable state with history of aortic thrombus/PE/DVT: HANK done, EF 35- 40% Disposition: DC-01 TO HOME OR SELFCARE Time spent for discharge: 35 minutes Core Measure Documentation - Palliative Care Palliative Care/ Comfort Measures: Not Applicable - Core Measures Any of the following diagnoses?: none - VTE Discharge Requirements Deep Vein Thrombosis/Pulmonary Embolism Present on Admission: Yes Has pt received <5 days of overlap therapy or INR<2.0: Yes Anticoagulant overlap therapy prescribed at discharge: Yes Contraindication No Overlap Therapy order at DC: Not Indicated Exam - Physical Exam Narrative exam: Gen: WDWN, NAD, Awake, Alert, Orientated HEENT: NCAT, EOMI, PERRL, OP Clear Neck: supple, no adenopathy, no thyromegaly, no JVD CVS/Heart: RRR, normal S1S2, pulses present bilaterally Chest/Lungs: CTA B, Symmetrical chest expansion, good air entry bilaterally GI/Abdomen: soft, NTND, good bowel sounds, no guarding or rebound /Bladder: no suprapubic tenderness, no CVA or paraspinal tenderness Extermity/Skin: no c/c/e, no obvious rash MSK: FROM x 4 Neuro: CN 2-12 grossly intact, no new focal deficits Psych: calm - Constitutional Vitals: Temp Pulse Resp BP Pulse Ox 97.3 F L 89 16 103/58 97 03/09/18 11:56 03/09/18 11:56 03/09/18 11:56 03/09/18 11:56 03/09/18 11:56 Plan Activity: other (no strenous activity until cleared by ) Diet: low salt Follow up with: PRIMARY CARE, [Primary Care Provider] - 3-5 Days Forms: Warfarin Discharge Instruction Prescriptions: Clopidogrel [Plavix] 75 mg PO QDAY #30 tablet HYDROcodone/APAP 10-325 [Pecos 10-325 mg TAB] 1 each PO Q6H PRN #15 tablet PRN Reason: Pain , Severe (7-10) Lisinopril [Zestril TAB] 2.5 mg PO QDAY #30 tablet Warfarin [Coumadin] 10 mg PO DAILY@1700 #30 tablet
[2018-03-09] MEDS ORDERED: COUMADIN PO SCH (17:00)
[2018-03-09] MEDS: NORCO 5/325 PO PRN (17:01)
[2018-03-09 17:33] VITALS: BP 116/65
== END 2018-03-09 18:15 | disposition home or self-care (01) | DRG 175 ==
LOC: ED 22:48 → CC1 03-03 07:20 → 4A 03-04 12:39 → CC1 03-06 14:28 → 3A 03-07 22:26
PROVIDERS: ADMIT Internal Medicine; ATTEND Internal Medicine
PROC: B54BZZA Ultrasonography of Right Lower Extremity Veins, Guidance (ICD-10-PCS; principal; 2018-03-06)
PROC: B5191ZZ Fluoroscopy of Inferior Vena Cava using Low Osmolar Contrast (ICD-10-PCS; 2018-03-06)
PROC: B51D1ZZ Fluoroscopy of Bilateral Lower Extremity Veins using Low Osmolar Contrast (ICD-10-PCS; 2018-03-06)
PROC: B31T1ZZ Fluoroscopy of Left Pulmonary Artery using Low Osmolar Contrast (ICD-10-PCS; 2018-03-06)
PROC: B31S1ZZ Fluoroscopy of Right Pulmonary Artery using Low Osmolar Contrast (ICD-10-PCS; 2018-03-06)
PROC: 3E06317 Introduction of Other Thrombolytic into Central Artery, Percutaneous Approach (ICD-10-PCS; 2018-03-06)
PROC: 02HR33Z Insertion of Infusion Device into Left Pulmonary Artery, Percutaneous Approach (ICD-10-PCS; 2018-03-06)
PROC: 02HQ33Z Insertion of Infusion Device into Right Pulmonary Artery, Percutaneous Approach (ICD-10-PCS; 2018-03-06)
PROC: 3E043GC Introduction of Other Therapeutic Substance into Central Vein, Percutaneous Approach (ICD-10-PCS; 2018-03-06)
PROC: 02PYX3Z Removal of Infusion Device from Great Vessel, External Approach (ICD-10-PCS; 2018-03-07)
PROC: B31T1ZZ Fluoroscopy of Left Pulmonary Artery using Low Osmolar Contrast (ICD-10-PCS; 2018-03-07)
PROC: B31S1ZZ Fluoroscopy of Right Pulmonary Artery using Low Osmolar Contrast (ICD-10-PCS; 2018-03-07)
DX: I26.02 Saddle embolus of pulmonary artery with acute cor pulmonale (principal); J96.01 Acute respiratory failure with hypoxia; I50.41 Acute combined systolic (congestive) and diastolic (congestive) heart failure; R55 Syncope and collapse; D68.59 Other primary thrombophilia; Z86.718 Personal history of other venous thrombosis and embolism; K21.9 Gastro-esophageal reflux disease without esophagitis; I11.0 Hypertensive heart disease with heart failure; E05.90 Thyrotoxicosis, unspecified without thyrotoxic crisis or storm; G62.9 Polyneuropathy, unspecified; F17.200 Nicotine dependence, unspecified, uncomplicated; F31.70 Bipolar disorder, currently in remission, most recent episode unspecified; F41.9 Anxiety disorder, unspecified; D50.9 Iron deficiency anemia, unspecified; Z71.6 Tobacco abuse counseling; Z79.01 Long term (current) use of anticoagulants; Z86.711 Personal history of pulmonary embolism; Z79.899 Other long term (current) drug therapy; Z88.0 Allergy status to penicillin; Z88.5 Allergy status to narcotic agent; Z91.010 Allergy to peanuts; Z91.14 Patient's other noncompliance with medication regimen
CPT/HCPCS: 36415; 37211; 37214; 51702; 70450; 71275; 80048; 80053; 82962; 83880; 84484; 84703; 85007; 85014; 85018; 85025; 85049; 85379; 85384; 85520; 85610; 85730; 86850; 86900; 86901; 93005; 93010; 93306; 93312; 93320; 93325; 93970; 94760; 96365; 96366; 96368; 96374; 96375; G0378; C1757; C1769; C1887; C1894; J1170; J1644; J1650; J2250; J2270; J2405; J2997; J3010; J7030; J7040; J7050; Q9967

== ENCOUNTER 2018-03-31 00:04 | Emergency (ER) | payer MEDICAID ==
[2018-03-31 01:01] LABS: Basophils # (Auto) 0.1 K/mm3 (0.0-0.1); Basophils % (Auto) 1.1 % (0.0-1.8); Eosinophils # (Auto) 0.2 K/mm3 (0.0-0.4); Eosinophils % (Auto) 1.9 % (0.0-4.3); Lymphocytes # (Auto) 2.7 K/mm3 (1.2-5.4); Lymphocytes % (Auto) 23.1 % (13.4-35.0); Mean Corpuscular HGB Conc 31 % (30-34); Mean Corpuscular Volume 72 fl (79-97); Monocytes # (Auto) 0.6 K/mm3 (0.0-0.8); Monocytes % (Auto) 4.9 % (0.0-7.3); Platelet Count 377 K/mm3 (140-440); Red Blood Count 5.15 M/mm3 (3.65-5.03)
[2018-03-31 01:07] LABS: Hematocrit 37.1 % (30.3-42.9); Hemoglobin 11.3 gm/dl (10.1-14.3)
[2018-03-31 01:25] LABS: BUN/Creatinine Ratio 12; Blood Urea Nitrogen 11 mg/dL (7-17); Calcium 9.4 mg/dL (8.4-10.2); Hemolysis Index 7
[2018-03-31] MEDS ORDERED: ZOFRAN IV ONE (01:56)
[2018-03-31 02:06] LABS: INR 1.18 (0.87-1.13); Partial Thromboplastin Time 21.2 Sec. (24.2-36.6)
--- NOTE | 2018-03-31 02:22 | Emergency Department Report ---
ED Chest Pain HPI - General Chief Complaint: Syncope Stated Complaint: FAINTING,CHESTPAIN,VOMITIMG Time Seen by Provider: 03/31/18 01:26 Source: patient Mode of arrival: Ambulatory Limitations: No Limitations - History of Present Illness Initial Comments: 37-year-old female presents to ED with complaint of chest pain and multiple syncopal episodes. Patient states she was recently discharged from this hospital approximately 2 weeks ago following admission for PE in which she underwent a procedure for removal of the clots, and placement of an IVC filter. Patient states she has had multiple syncopal episodes since being discharged from the hospital. Patient denies any syncopal episodes prior to this. However, in reviewing patient's most recent discharge summaries, patient has reported multiple syncopal episodes times. Patient has history of schizophrenia, coagulopathy, aortic dissection with thrombus and stent graft. The patient was recently seen on 03/03/2018 when she presented to the ED chest pain and syncopal episode. At that time she was diagnosed with a saddle PE, for which she underwent thrombolysis. She was discharged on Coumadin and Plavix. Patient has a long history of noncompliance with medication. Patient again presented to the ER 12 days later on 03/15/2018 for chest pain. At that time patient's INR was not therapeutic so she was again admitted. Workup was unremarkable, patient had normal EKG and normal troponins. Decision was made to discharge patient on Xarelto and Plavix due to her noncompliance with Coumadin. Today, patient reports pain across entire chest, worse with palpation and movement of torso. States pain feels the same as it did on her last admission, following procedure for her saddle PE. MD Complaint: chest pain -: week(s) (1) Onset: during rest Pain Location: other (entire chest) Pain Radiation: none Severity: moderate Quality: aching Consistency: constant Improves With: nothing Worsens With: palpation, movement re: nausea, vomting. denies: dyspnea Other Symptoms: syncope - Related Data Previous Rx's Medication Instructions Recorded Last Taken Type Pregabalin [Lyrica] 100 mg PO QAM #30 capsule 05/26/17 1 Day Ago Rx ~03/15/18 ALPRAZolam [Xanax TAB] 0.5 mg PO BID #20 tablet 03/17/18 Unknown Rx Clopidogrel Bisulfate [Plavix] 75 mg PO DAILY #180 tablet 03/17/18 Unknown Rx Gabapentin [Neurontin] 900 mg PO TID #90 tablet 03/17/18 Unknown Rx Pantoprazole [Protonix TAB] 40 mg PO BID #60 tablet 03/17/18 Unknown Rx Pregabalin [Lyrica] 75 mg PO DAILY #30 capsule 03/17/18 Unknown Rx Propranolol [Inderal] 20 mg PO BID #60 tablet 03/17/18 Unknown Rx QUEtiapine [SEROquel] 100 mg PO DAILY #30 tablet 03/17/18 Unknown Rx Rivaroxaban [Xarelto] 20 mg PO QDAY #180 tab 03/17/18 Unknown Rx levETIRAcetam [Keppra] 500 mg PO DAILY #30 tablet 03/17/18 Unknown Rx methIMAzole [Tapazole] 10 mg PO Q8HR tablet 03/17/18 Unknown Rx traMADol [Ultram 50 MG tab] 50 mg PO Q12HR PRN #30 tablet 03/17/18 Unknown Rx Methocarbamol [Robaxin-750] 750 mg PO Q6HR PRN #20 tablet 03/31/18 Unknown Rx Allergies Allergy/AdvReac Type Severity Reaction Status Date / Time acetaminophen [From Percocet] Allergy Itching Verified 03/15/18 16:04 garlic Allergy Unknown Verified 03/15/18 16:04 ibuprofen [From Motrin] Allergy Unknown Verified 03/15/18 16:04 oxycodone [From Percocet] Allergy Itching Verified 03/15/18 16:04 peanut oil Allergy Unknown Verified 03/15/18 16:04 Penicillins Allergy Unknown Verified 03/15/18 16:04 Heart Score - HEART Score History: Slightly suspicious EKG: Normal Age: < 45 Risk factors: 1-2 risk factors Troponin: < normal limit HEART Score: 1 ED Review of Systems ROS: Stated complaint: FAINTING,CHESTPAIN,VOMITIMG Other details as noted in HPI Comment: All other systems reviewed and negative Constitutional: denies: chills, fever Respiratory: denies: cough, shortness of breath Cardiovascular: chest pain Gastrointestinal: nausea, vomiting ED Past Medical Hx - Past Medical History Previous Medical History?: Yes Hx Hypertension: Yes Hx Heart Attack/AMI: (normal stress 10-31-16, normal perfusion scan May 2017) Hx Congestive Heart Failure: No Hx Diabetes: No Hx Deep Vein Thrombosis: Yes Hx Pulmonary Embolism: Yes Hx GERD: Yes Hx Sickle Cell Disease: No Hx Seizures: Yes Hx Psychiatric Treatment: Yes (anxiety) Hx Asthma: No Hx COPD: No Hx Tuberculosis: No Additional medical history: pericarditis, pt states hyperthyroidism, thyroid storm, PE x2, (R lung 05/2016, L lung 01/2017--on coumadin), R leg DVT 03/2017, Graves Disease, heart murmur, blood clot on Aorta - Surgical History Past Surgical History?: Yes Additional Surgical History: Left arm surgery 02/2017, Right knee, Rt leg - Social History Smoking Status: Current Every Day Smoker Substance Use Type: None - Medications Home Medications: Home Medications Medication Instructions Recorded Confirmed Last Taken Type Pregabalin [Lyrica] 100 mg PO QAM #30 capsule 05/26/17 03/16/18 1 Day Ago Rx ~03/15/18 ALPRAZolam [Xanax TAB] 0.5 mg PO BID #20 tablet 03/17/18 Unknown Rx Clopidogrel Bisulfate [Plavix] 75 mg PO DAILY #180 tablet 03/17/18 Unknown Rx Gabapentin [Neurontin] 900 mg PO TID #90 tablet 03/17/18 Unknown Rx Pantoprazole [Protonix TAB] 40 mg PO BID #60 tablet 03/17/18 Unknown Rx Pregabalin [Lyrica] 75 mg PO DAILY #30 capsule 03/17/18 Unknown Rx Propranolol [Inderal] 20 mg PO BID #60 tablet 03/17/18 Unknown Rx QUEtiapine [SEROquel] 100 mg PO DAILY #30 tablet 03/17/18 Unknown Rx Rivaroxaban [Xarelto] 20 mg PO QDAY #180 tab 03/17/18 Unknown Rx levETIRAcetam [Keppra] 500 mg PO DAILY #30 tablet 03/17/18 Unknown Rx methIMAzole [Tapazole] 10 mg PO Q8HR tablet 03/17/18 Unknown Rx traMADol [Ultram 50 MG tab] 50 mg PO Q12HR PRN #30 tablet 03/17/18 Unknown Rx Methocarbamol [Robaxin-750] 750 mg PO Q6HR PRN #20 tablet 03/31/18 Unknown Rx ED Physical Exam - General Limitations: No Limitations General appearance: alert, in no apparent distress, other (nontoxic-appearing) - Head Head exam: Present: atraumatic, normocephalic - Eye Eye exam: Present: normal appearance - ENT ENT exam: Present: mucous membranes moist - Neck Neck exam: Present: normal inspection - Respiratory Respiratory exam: Present: normal lung sounds bilaterally, chest wall tenderness. Absent: respiratory distress - Cardiovascular Cardiovascular Exam: Present: regular rate, normal rhythm - GI/Abdominal GI/Abdominal exam: Present: soft. Absent: distended, tenderness - Extremities Exam Extremities exam: Present: normal inspection, calf tenderness - Neurological Exam Neurological exam: Present: alert, oriented X3 - Psychiatric Psychiatric exam: Present: normal affect, normal mood - Skin Skin exam: Present: warm, dry, intact, normal color ED Course Vital Signs 03/31/18 03/31/18 03/31/18 00:25 01:57 02:50 Temperature 99.2 F Pulse Rate 94 H Pulse Rate [ 78 Lying] Respiratory 18 16 Rate Blood Pressure 117/70 Blood Pressure [Left] Blood Pressure 118/69 [Lying] O2 Sat by Pulse 98 100 Oximetry 03/31/18 03/31/18 04:32 05:00 Temperature Pulse Rate 83 80 Pulse Rate [ Lying] Respiratory 17 17 Rate Blood Pressure Blood Pressure 101/54 122/68 [Left] Blood Pressure [Lying] O2 Sat by Pulse 98 99 Oximetry GENOVEVA score - Genoveva Score Age > 65: (0) No Aspirin use within the Past 7 Days: (0) No 3 or more CAD Risk Factors: (0) No 2 or more Angina events in past 24 hrs: (1) Yes Known CAD with more than 50% Stenosis: (0) No Elevated Cardiac Markers: (0) No ST Deviation Greater than 0.5mm: (0) No GENOVEVA Score: 1 ED Medical Decision Making - Lab Data Result diagrams: 03/31/18 00:34 03/31/18 00:34 - EKG Data -: EKG Interpreted by Or EKG shows normal: sinus rhythm, axis, intervals, QRS complexes, ST-T waves Rate: normal - EKG Data Interpretation: no acute changes - Radiology Data Radiology results: report reviewed, image reviewed - Medical Decision Making 37 year-old female history of saddle PE, status post thrombectomy presents with chest pain. Patient states pain is the same as it was her last admission which was 2 weeks ago. At that time patient's workup was negative. No new findings on CTA chest at that time. Patient was switched from Coumadin this route so and Plavix. Patient states she is compliant with those medications. Vital signs have been normal here in ED, patient non-tachycardic, patient not hypoxic, blood pressure normal. Laying comfortably in stretcher. Patient requested narcotic medications, however, advised her that we would use alternative medications for her pain. Robaxin was given. States pain seems to be atypical and musculoskeletal in nature, as patient has chest wall tenderness, and reports pain with movement of torso. EKG and troponin were done 2. Both were normal. The patient states she has follow-up appointments with engineering inspector this coming week. I do not feel as if patient requires another admission at this time, as patient received full workup for her chest pain and syncope 2 weeks ago. Outpatient follow-up as advised. Return precautions given. - Differential Diagnosis atypical chest pain, chest wall pain, ACS, pulm edema Critical care attestation.: If time is entered above; I have spent that time in minutes in the direct care of this critically ill patient, excluding procedure time. ED Disposition Clinical Impression: Chest wall pain Disposition: DC-01 TO HOME OR SELFCARE Is pt being admited?: No Condition: Stable Instructions: Chest Pain (ED), Costochondritis (ED) Prescriptions: Methocarbamol [Robaxin-750] 750 mg PO Q6HR PRN #20 tablet PRN Reason: Spasms Referrals: ROBERT PAULINO MD [Primary Care Provider] - 3-5 Days Time of Disposition: 04:49
--- NOTE | 2018-03-31 02:30 | XRay Report ---
FINAL REPORT PROCEDURE: XRAY CHEST SINGLE VIEW TECHNIQUE: Chest radiograph anteroposterior view. CPT 11626 HISTORY: chest pain COMPARISON: No prior studies are available for comparison. FINDINGS: Heart: Normal. Mediastinum/Vessels: There is a stent in the thoracic aorta.. Lungs/Pleural space: Normal. Bony thorax: No acute osseous abnormality. Life support devices: None. IMPRESSION: No acute cardiopulmonary abnormality.
[2018-03-31] MEDS ORDERED: ROBAXIN PO ONE (02:51)
[2018-03-31] MEDS ORDERED: ZOFRAN ODT PO ONE (02:52)
[2018-03-31] MEDS ORDERED: TYLENOL PO ONE (05:02)
[2018-03-31] MEDS ORDERED: TYLENOL ONE (05:06)
[2018-03-31 05:19] VITALS: BP 122/68
== END 2018-03-31 05:23 | disposition home or self-care (01) ==
LOC: ED 00:04
DX: R07.89 Other chest pain (principal); I10 Essential (primary) hypertension; K21.9 Gastro-esophageal reflux disease without esophagitis; F41.9 Anxiety disorder, unspecified; E05.90 Thyrotoxicosis, unspecified without thyrotoxic crisis or storm; F17.200 Nicotine dependence, unspecified, uncomplicated; Z79.01 Long term (current) use of anticoagulants; Z79.02 Long term (current) use of antithrombotics/antiplatelets; Z88.5 Allergy status to narcotic agent; Z91.010 Allergy to peanuts; Z88.0 Allergy status to penicillin; Z91.018 Allergy to other foods; Z86.718 Personal history of other venous thrombosis and embolism; Z86.711 Personal history of pulmonary embolism
CPT/HCPCS: 36415; 71045; 80048; 84484; 85025; 85610; 85730; 93005; 93010; 99284; J2405; Q0162

== ENCOUNTER 2018-06-22 07:40 | Emergency (ER) | payer MEDICAID ==
[2018-06-22 08:30] LABS: Basophils # (Auto) 0.1 K/mm3 (0.0-0.1); Basophils % (Auto) 0.9 % (0.0-1.8); Eosinophils # (Auto) 0.1 K/mm3 (0.0-0.4); Eosinophils % (Auto) 0.8 % (0.0-4.3); Hematocrit 37.4 % (30.3-42.9); Hemoglobin 11.7 gm/dl (10.1-14.3); Lymphocytes # (Auto) 2.2 K/mm3 (1.2-5.4); Lymphocytes % (Auto) 22.2 % (13.4-35.0); Mean Corpuscular HGB Conc 31 % (30-34); Mean Corpuscular Volume 74 fl (79-97); Monocytes # (Auto) 0.7 K/mm3 (0.0-0.8); Monocytes % (Auto) 7.2 % (0.0-7.3); Platelet Count 418 K/mm3 (140-440); Red Blood Count 5.06 M/mm3 (3.65-5.03)
[2018-06-22 08:33] LABS: Red Cell Distribution Width 21.2 % (13.2-15.2)
--- NOTE | 2018-06-22 08:51 | XRay Report ---
PORTABLE CHEST INDICATION: Chest pain. COMPARISON: 03/31/2018 FINDINGS: Portable, frontal chest radiograph again demonstrates descending aortic stent. Stable cardiomediastinal silhouette/borderline cardiomegaly. Clear lungs. Intact bones. CONCLUSION: No significant interval change with few incidental findings, as above. Please correlate. Thank you for the opportunity to participate in this patient's care.
[2018-06-22] MEDS ORDERED: ZOFRAN IV ONE (10:55)
[2018-06-22] MEDS ORDERED: MORPHINE IV ONE ×2 (10:55→13:22)
[2018-06-22] MEDS ORDERED: NACL 0.9% 1000 ML 1,000 ML IV ONE (10:55)
[2018-06-22 11:11] LABS: Hemolysis Index 0
[2018-06-22 11:15] LABS: Alanine Aminotransferase 19 units/L (7-56); Albumin 4.4 g/dL (3.9-5)
[2018-06-22 11:16] LABS: BUN/Creatinine Ratio TNR; Blood Urea Nitrogen TNR mg/dL (7-17); Calcium TNR mg/dL (8.4-10.2)
[2018-06-22 11:17] LABS: Bilirubin,Direct < 0.2 mg/dL (0-0.2)
--- NOTE | 2018-06-22 11:20 | Emergency Department Report ---
ED Chest Pain HPI - General Chief Complaint: Chest Pain Stated Complaint: CHEST PAIN Time Seen by Provider: 06/22/18 10:15 Source: patient, old records reviewed Mode of arrival: Ambulatory Limitations: No Limitations - History of Present Illness Initial Comments: 37-year-old female with a past medical history of multiple medical problems including but not limited to schizophrenia, anxiety, DVT, PE, hypertension, seizures, pericarditis, hypothyroidism, and aortic dissection with thrombus and stent graft presents to the hospital with complaints of chest pain and syncope 2 weeks. Patient is experiencing mid chest pain described as a sharp and press ure-like pain that is becoming more constant. Worse with palpation and movement. She denies shortness of breath. Patient also states she's been fainting for the last 2-3 weeks as well. She states she's taken tramadol for pain without relief. She also states she is taking Coumadin 7.5 mg daily. Previous medical record reviewed. Patient has a significant past medical history recent admissions to the hospital this year. In February 2018 diagnosed with a saddle PE there with probable lyses. She was discharged on Coumadin and Plavix. A repeat presented to the ER 12 days later for chest pain. INR was subtherapeutic however, patient was admitted for further workup. After unremarkable workup patient was discharged on Xarelto and Plavix due to noncompliance with Coumadin. Patient then presented here in March to the ER complaining of anterior chest pain worse with movement and palpation. CT angiogram at that time showed: Persistent pulmonary arterial filling defects consistent with PE, significantly decreased in extent and amount since the previous exam. No evidence of new PE 2. There is been interval development of a nonspecific pulmonary nodule this may represent a developing infiltrate or a small infarct. Patient was then discharged on Robaxin for muscle spasms and chest wall pain. It is noted that patient requested narcotic during her ER visit and is noted to have a history of possible narcotic abuse as per previous discharge summaries. Patient states that her primary care doctor switched her back to Coumadin and his sister she's been compliant with last dose last night. She states she is suppose also see a picture frames inspector with the clinic she was referred to. - Related Data Previous Rx's Medication Instructions Recorded Last Taken Type Pregabalin [Lyrica] 100 mg PO QAM #30 capsule 05/26/17 1 Day Ago Rx ~03/15/18 ALPRAZolam [Xanax TAB] 0.5 mg PO BID #20 tablet 03/17/18 Unknown Rx Clopidogrel Bisulfate [Plavix] 75 mg PO DAILY #180 tablet 03/17/18 Unknown Rx Gabapentin [Neurontin] 900 mg PO TID #90 tablet 03/17/18 Unknown Rx Pantoprazole [Protonix TAB] 40 mg PO BID #60 tablet 03/17/18 Unknown Rx Pregabalin [Lyrica] 75 mg PO DAILY #30 capsule 03/17/18 Unknown Rx Propranolol [Inderal] 20 mg PO BID #60 tablet 03/17/18 Unknown Rx QUEtiapine [SEROquel] 100 mg PO DAILY #30 tablet 03/17/18 Unknown Rx Rivaroxaban [Xarelto] 20 mg PO QDAY #180 tab 03/17/18 Unknown Rx levETIRAcetam [Keppra] 500 mg PO DAILY #30 tablet 03/17/18 Unknown Rx methIMAzole [Tapazole] 10 mg PO Q8HR tablet 03/17/18 Unknown Rx Methocarbamol [Robaxin-750] 750 mg PO Q6HR PRN #20 tablet 03/31/18 Unknown Rx Ondansetron [Zofran Odt] 4 mg PO Q8HR PRN #20 tab.rapdis 06/22/18 Unknown Rx traMADol [Ultram 50 MG tab] 50 mg PO Q6HR PRN #15 tablet 06/22/18 Unknown Rx Allergies Allergy/AdvReac Type Severity Reaction Status Date / Time acetaminophen [From Percocet] Allergy Itching Verified 03/15/18 16:04 garlic Allergy Unknown Verified 03/15/18 16:04 ibuprofen [From Motrin] Allergy Unknown Verified 03/15/18 16:04 oxycodone [From Percocet] Allergy Itching Verified 03/15/18 16:04 peanut oil Allergy Unknown Verified 03/15/18 16:04 Penicillins Allergy Unknown Verified 03/15/18 16:04 Heart Score - HEART Score History: Slightly suspicious EKG: Non-specific Age: < 45 Risk factors: 1-2 risk factors Troponin: < normal limit HEART Score: 2 ED Review of Systems ROS: Stated complaint: CHEST PAIN Other details as noted in HPI ED Past Medical Hx - Past Medical History Previous Medical History?: Yes Hx Hypertension: Yes Hx Heart Attack/AMI: (normal stress 10-31-16, normal perfusion scan May 2017) Hx Congestive Heart Failure: No Hx Diabetes: No Hx Deep Vein Thrombosis: Yes Hx Pulmonary Embolism: Yes Hx GERD: Yes Hx Sickle Cell Disease: No Hx Seizures: Yes Hx Psychiatric Treatment: Yes (anxiety) Hx Asthma: No Hx COPD: No Hx Tuberculosis: No Additional medical history: pericarditis, pt states hyperthyroidism, thyroid storm, PE x2, (R lung 05/2016, L lung 01/2017--on coumadin), R leg DVT 03/2017, Graves Disease, heart murmur, aortic dissection - Surgical History Past Surgical History?: Yes Additional Surgical History: Left arm surgery 02/2017, Right knee, Rt leg. 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 - Social History Smoking Status: Current Every Day Smoker Substance Use Type: None - Medications Home Medications: Home Medications Medication Instructions Recorded Confirmed Last Taken Type Pregabalin [Lyrica] 100 mg PO QAM #30 capsule 05/26/17 03/16/18 1 Day Ago Rx ~03/15/18 ALPRAZolam [Xanax TAB] 0.5 mg PO BID #20 tablet 03/17/18 Unknown Rx Clopidogrel Bisulfate [Plavix] 75 mg PO DAILY #180 tablet 03/17/18 Unknown Rx Gabapentin [Neurontin] 900 mg PO TID #90 tablet 03/17/18 Unknown Rx Pantoprazole [Protonix TAB] 40 mg PO BID #60 tablet 03/17/18 Unknown Rx Pregabalin [Lyrica] 75 mg PO DAILY #30 capsule 03/17/18 Unknown Rx Propranolol [Inderal] 20 mg PO BID #60 tablet 03/17/18 Unknown Rx QUEtiapine [SEROquel] 100 mg PO DAILY #30 tablet 03/17/18 Unknown Rx Rivaroxaban [Xarelto] 20 mg PO QDAY #180 tab 03/17/18 Unknown Rx levETIRAcetam [Keppra] 500 mg PO DAILY #30 tablet 03/17/18 Unknown Rx methIMAzole [Tapazole] 10 mg PO Q8HR tablet 03/17/18 Unknown Rx Methocarbamol [Robaxin-750] 750 mg PO Q6HR PRN #20 tablet 03/31/18 Unknown Rx Ondansetron [Zofran Odt] 4 mg PO Q8HR PRN #20 tab.rapdis 06/22/18 Unknown Rx traMADol [Ultram 50 MG tab] 50 mg PO Q6HR PRN #15 tablet 06/22/18 Unknown Rx ED Physical Exam - General Limitations: No Limitations - Other Other exam information: General: No limitations, patient is alert in no acute distress Head exam: Atraumatic, normocephalic Eyes exam: Normal appearance, pupils equal reactive to light, extraocular movements intact ENT: Moist mucous membrane, normal oropharynx Neck exam: Normal inspection, full range of motion, no meningismus nontender Respiratory exam: Reproducible sternal chest wall tenderness. Clear to auscultation bilaterally Cardiovascular: Normal rate and rhythm, normal heart sounds Abdomen: Soft, nondistended, and nontender, with normal bowel sounds, no rebound, or guarding Extremity: Full range of motion normal inspection no deformity, no calf tenderness or edema Back: Normal Inspection, full range of motion, no tenderness Neurologic: Alert, oriented x3, cranial nerves intact, no motor or sensory deficit Psychiatric: normal affect, normal mood Skin: Warm, dry, intact ED Course Vital Signs 06/22/18 06/22/18 06/22/18 07:53 11:33 11:43 Temperature 99.1 F Pulse Rate 85 Respiratory 18 18 Rate Blood Pressure 139/76 O2 Sat by Pulse 99 97 97 Oximetry 06/22/18 06/22/18 06/22/18 11:46 12:00 13:18 Temperature Pulse Rate 61 58 L 77 Respiratory 12 17 Rate Blood Pressure 124/59 120/59 120/59 O2 Sat by Pulse 98 99 Oximetry 06/22/18 14:00 Temperature Pulse Rate 71 Respiratory 20 Rate Blood Pressure 122/56 O2 Sat by Pulse 98 Oximetry - EJ/Peripheral Line Neck L Time Out Performed: Yes Indications: nurses unable to establis Skin Cleansed in Sterile Fashion: Yes Size: 20 Dressing Placed: Tegaderm, tape Patient Tolerated Procedure: well, no complications GENOVEVA score - Genoveva Score Age > 65: (0) No Aspirin use within the Past 7 Days: (0) No 3 or more CAD Risk Factors: (0) No 2 or more Angina events in past 24 hrs: (1) Yes Known CAD with more than 50% Stenosis: (0) No Elevated Cardiac Markers: (0) No ST Deviation Greater than 0.5mm: (0) No GENOVEVA Score: 1 ED Medical Decision Making - Lab Data Result diagrams: 06/22/18 08:04 06/22/18 11:15 Lab Results 06/22/18 06/22/18 06/22/18 Range/Units 08:04 10:55 10:57 WBC 9.8 (4.5-11.0) K/mm3 RBC 5.06 H (3.65-5.03) M/mm3 Hgb 11.7 (10.1-14.3) gm/dl Hct 37.4 (30.3-42.9) % MCV 74 L (79-97) fl MCH 23 L (28-32) pg MCHC 31 (30-34) % RDW 21.2 H (13.2-15.2) % Plt Count 418 (140-440) K/mm3 Lymph % (Auto) 22.2 (13.4-35.0) % [place] % (Auto) 7.2 (0.0-7.3) % Eos % (Auto) 0.8 (0.0-4.3) % Baso % (Auto) 0.9 (0.0-1.8) % Lymph # 2.2 (1.2-5.4) K/mm3 [place] # 0.7 (0.0-0.8) K/mm3 Eos # 0.1 (0.0-0.4) K/mm3 Baso # 0.1 (0.0-0.1) K/mm3 Seg Neutrophils % 68.9 (40.0-70.0) % Seg Neutrophils # 6.7 (1.8-7.7) K/mm3 PT (12.2-14.9) Sec. INR (0.87-1.13) APTT (24.2-36.6) Sec. Sodium TNR Potassium TNR Chloride 60.0 L (98-107) mmol/L Carbon Dioxide TNR Anion Gap TNR BUN TNR Creatinine < 0.2 L (0.7-1.2) mg/dL Estimated GFR > 60 ml/min BUN/Creatinine Ratio TNR Glucose TNR Calcium TNR Total Bilirubin (0.1-1.2) mg/dL Direct Bilirubin (0-0.2) mg/dL Indirect Bilirubin mg/dL AST (5-40) units/L ALT (7-56) units/L Alkaline Phosphatase (35-129) units/L Troponin T < 0.010 (0.00-0.029) ng/mL Total Protein (6.3-8.2) g/dL Albumin (3.9-5) g/dL Albumin/Globulin Ratio % Lipase (13-60) units/L HCG, Qual Negative (Negative) 06/22/18 06/22/18 06/22/18 Range/Units 10:57 11:15 11:15 WBC (4.5-11.0) K/mm3 RBC (3.65-5.03) M/mm3 Hgb (10.1-14.3) gm/dl Hct (30.3-42.9) % MCV (79-97) fl MCH (28-32) pg MCHC (30-34) % RDW (13.2-15.2) % Plt Count (140-440) K/mm3 Lymph % (Auto) (13.4-35.0) % [place] % (Auto) (0.0-7.3) % Eos % (Auto) (0.0-4.3) % Baso % (Auto) (0.0-1.8) % Lymph # (1.2-5.4) K/mm3 [place] # (0.0-0.8) K/mm3 Eos # (0.0-0.4) K/mm3 Baso # (0.0-0.1) K/mm3 Seg Neutrophils % (40.0-70.0) % Seg Neutrophils # (1.8-7.7) K/mm3 PT 13.0 (12.2-14.9) Sec. INR 0.93 (0.87-1.13) APTT 25.1 (24.2-36.6) Sec. Sodium 138 Potassium 4.5 Chloride 105.1 (98-107) mmol/L Carbon Dioxide 25 Anion Gap 12 BUN 15 Creatinine 0.8 D (0.7-1.2) mg/dL Estimated GFR > 60 ml/min BUN/Creatinine Ratio 19 Glucose 97 Calcium 9.1 Total Bilirubin < 0.20 < 0.20 (0.1-1.2) mg/dL Direct Bilirubin < 0.2 (0-0.2) mg/dL Indirect Bilirubin 0.0 mg/dL AST 19 16 (5-40) units/L ALT 19 14 (7-56) units/L Alkaline Phosphatase 92 74 (35-129) units/L Troponin T (0.00-0.029) ng/mL Total Protein 8.2 7.4 (6.3-8.2) g/dL Albumin 4.4 3.7 L (3.9-5) g/dL Albumin/Globulin Ratio 1.2 1.0 % Lipase 36 (13-60) units/L HCG, Qual (Negative) 06/22/18 Range/Units 14:16 WBC (4.5-11.0) K/mm3 RBC (3.65-5.03) M/mm3 Hgb (10.1-14.3) gm/dl Hct (30.3-42.9) % MCV (79-97) fl MCH (28-32) pg MCHC (30-34) % RDW (13.2-15.2) % Plt Count (140-440) K/mm3 Lymph % (Auto) (13.4-35.0) % [place] % (Auto) (0.0-7.3) % Eos % (Auto) (0.0-4.3) % Baso % (Auto) (0.0-1.8) % Lymph # (1.2-5.4) K/mm3 [place] # (0.0-0.8) K/mm3 Eos # (0.0-0.4) K/mm3 Baso # (0.0-0.1) K/mm3 Seg Neutrophils % (40.0-70.0) % Seg Neutrophils # (1.8-7.7) K/mm3 PT (12.2-14.9) Sec. INR (0.87-1.13) APTT (24.2-36.6) Sec. Sodium Potassium Chloride (98-107) mmol/L Carbon Dioxide Anion Gap BUN Creatinine (0.7-1.2) mg/dL Estimated GFR ml/min BUN/Creatinine Ratio Glucose Calcium Total Bilirubin (0.1-1.2) mg/dL Direct Bilirubin (0-0.2) mg/dL Indirect Bilirubin mg/dL AST (5-40) units/L ALT (7-56) units/L Alkaline Phosphatase (35-129) units/L Troponin T < 0.010 (0.00-0.029) ng/mL Total Protein (6.3-8.2) g/dL Albumin (3.9-5) g/dL Albumin/Globulin Ratio % Lipase (13-60) units/L HCG, Qual (Negative) - EKG Data -: EKG Interpreted by Me EKG shows normal: sinus rhythm, axis (qrs 35), QRS complexes (qrsd 74), ST-T waves (no stemi) Rate: normal (qrs 81) - EKG Data 06/22/18 14:43 repeat ekg: no acute changes - Radiology Data Radiology results: report reviewed CTA CHEST INDICATION: Syncope. COMPARISON: 03/15/2018 chest CTA. FINDINGS: Chest CTA performed following intravenous administration of 100 cc of Omnipaque 350. Rotational MIP's also obtained. Stable mild cardiomegaly and descending aortic stent. No aortic aneurysm or dissection. Interval resolution of small linear right pulmonary arterial filling defect centrally. No other focal suspicious filling defects noted. No effusions or size significant adenopathy. Patent central airway. Stable thyroid. Mild left lower lobe scarring again noted. Interval clearing of 1.5 x 1 cm bilobed right lower lobe pulmonary nodule/opacity. Nonspecific distal esophageal mild wall prominence/thickening, not excluded for gastroesophageal reflux and/or hiatal hernia, amongst others. Imaged upper abdomen again demonstrates left hepatic lobe tip extending into the left upper quadrant. Unremarkable bones. CONCLUSION: Interval improvement without acute CT abnormality or evidence of pulmonary embolism with few other incidental findings, as above. CT head: NAF PORTABLE CHEST INDICATION: Chest pain. COMPARISON: 03/31/2018 FINDINGS: Portable, frontal chest radiograph again demonstrates descending aortic stent. Stable cardiomediastinal silhouette/borderline cardiomegaly. Clear lungs. Intact bones. CONCLUSION: No significant interval change with few incidental findings, as above. Please correlate. - Medical Decision Making Patient presents with reproducible chest wall pain with reported episode of syncope. No syncope episodes in the ED. Patient has presented to the ER multiple times with the same complaints. CT angiogram chest does not reveal any acute abnormality and shows resolution of diagnosis pulmonary embolism. Once again patient is subtherapeutic with her INR and a cyst she is on Coumadin. Patient appeared asking for narcotic pain medicine while in the ED. Patient has 2 negative troponin enzymes, unchanged EKG, unremarkable CT angiogram, recent hospitalization and workup for similar symptoms several times this year, and th erefore will be discharged home. Pt tolerated tramadol without allergy or seizure - Differential Diagnosis osteochondriti, chronic pain, drug-seeking, anemia, PE, dissection, OH Critical Care Time: No Critical care attestation.: If time is entered above; I have spent that time in minutes in the direct care of this critically ill patient, excluding procedure time. ED Disposition Clinical Impression: Costochondritis, Schizophrenia, Subtherapeutic anticoagulation, History of pul monary embolism Disposition: TO HOME OR SELFCARE Is pt being admited?: No Does the pt Need Aspirin: No Condition: Stable Instructions: Costochondritis (ED) Additional Instructions: Take the medication as prescribed. Follow up with your doctor or the clinic/doctor provided. Return if symptoms worsen as indicated by your discharge instructions Prescriptions: traMADol [Ultram 50 MG tab] 50 mg PO Q6HR PRN #15 tablet PRN Reason: Pain Ondansetron [Zofran Odt] 4 mg PO Q8HR PRN #20 tab.rapdis PRN Reason: Nausea And Vomiting Referrals: NIKKY BARNETT MD [Primary Care Provider] - 3-5 Days [facility] [Provider Group] - 3-5 Days MARCOS SHERMAN MD [Staff Physician] - 3-5 Days (Nitrating Acid Mixer) Time of Disposition: 15:22
[2018-06-22 12:04] LABS: INR 0.93 (0.87-1.13)
[2018-06-22 12:05] LABS: Partial Thromboplastin Time 25.1 Sec. (24.2-36.6)
[2018-06-22 12:06] LABS: Alanine Aminotransferase 14 units/L (7-56); Albumin 3.7 g/dL (3.9-5); BUN/Creatinine Ratio 19; Blood Urea Nitrogen 15 mg/dL (7-17); Calcium 9.1 mg/dL (8.4-10.2); Hemolysis Index 0
--- NOTE | 2018-06-22 13:59 | Cat Scan Report ---
CT HEAD WITHOUT CONTRAST INDICATION: Syncope. COMPARISON: 03/03/2018. FINDINGS: Noncontrast head CT partly limited due to motion, though suggests grossly normal ventricles and sulci without acute or recent infarct, hemorrhage, mass effect or midline shift. No abnormal extra-axial fluid collections. Posterior fossa structures and basilar cisterns within normal limits. Symmetric eye globes. Clear paranasal sinuses and mastoid air cells. Intact calvarium. Normal overlying scalp soft tissues. Few radiopaque dental material and missing teeth incidentally noted. CONCLUSION: No acute intracranial CT abnormality, as described. Thank you for the opportunity to participate in this patient's care.
--- NOTE | 2018-06-22 14:07 | Cat Scan Report ---
CTA CHEST INDICATION: Syncope. COMPARISON: 03/15/2018 chest CTA. FINDINGS: Chest CTA performed following intravenous administration of 100 cc of Omnipaque 350. Rotational MIP's also obtained. Stable mild cardiomegaly and descending aortic stent. No aortic aneurysm or dissection. Interval resolution of small linear right pulmonary arterial filling defect centrally. No other focal suspicious filling defects noted. No effusions or size significant adenopathy. Patent central airway. Stable thyroid. Mild left lower lobe scarring again noted. Interval clearing of 1.5 x 1 cm bilobed right lower lobe pulmonary nodule/opacity. Nonspecific distal esophageal mild wall prominence/thickening, not excluded for gastroesophageal reflux and/or hiatal hernia, amongst others. Imaged upper abdomen again demonstrates left hepatic lobe tip extending into the left upper quadrant. Unremarkable bones. CONCLUSION: Interval improvement without acute CT abnormality or evidence of pulmonary embolism with few other incidental findings, as above. Thank you for the opportunity to participate in this patient's care.
[2018-06-22 14:20] VITALS: BP 122/56
[2018-06-22] MEDS ORDERED: ULTRAM PO ONE (15:23)
== END 2018-06-22 15:46 | disposition home or self-care (01) ==
LOC: ED 07:40
DX: M94.0 Chondrocostal junction syndrome [Tietze] (principal); F20.9 Schizophrenia, unspecified; Z86.711 Personal history of pulmonary embolism; R79.1 Abnormal coagulation profile; I10 Essential (primary) hypertension; K21.9 Gastro-esophageal reflux disease without esophagitis
CPT/HCPCS: 36415; 36569; 70450; 71045; 71275; 80048; 80053; 80076; 83690; 84484; 84703; 85025; 85610; 85730; 93005; 93010; 96361; 96374; 96375; 96376; 99285; J2270; J2405; J7030; Q9967

== ENCOUNTER 2018-06-26 16:19 | Emergency (ER) | payer MEDICAID | END 2018-06-26 17:25 | disposition left against medical advice (07) | LOC: ED 16:19 | DX: R07.9 Chest pain, unspecified (principal); Z53.21 Procedure and treatment not carried out due to patient leaving prior to being seen by health care provider | CPT/HCPCS: 93005; 93010 ==

== ENCOUNTER 2018-07-15 09:05 | Emergency (ER) | payer MEDICAID ==
--- NOTE | 2018-07-15 09:59 | Emergency Department Report ---
Blank Doc - Documentation Documentation: Patient is a 37-year-old female who is less than a year status post saddle pulmonary embolus with thrombectomy and has been noncompliant over the last several months with anticoagulation. Patient has had several visits for chest pain or syncope. Patient is presenting with chest pain and 2 syncopal episodes this morning. Patient to be moved to the main area for further evaluation. The patient's last to the ER visits showed a negative workup however she does have a history of noncompliance and Hycotuss hypercoagulable state and extensive workup will be needed.
[2018-07-15] MEDS ORDERED: NACL 0.9% 1000 ML 1,000 ML IV ONE (10:04)
[2018-07-15] MEDS ORDERED: ULTRAM PO ONE (10:26)
--- NOTE | 2018-07-15 10:42 | Emergency Department Report ---
ED Chest Pain HPI - General Chief Complaint: Chest Pain Stated Complaint: FAINTING/CHEST PAIN/VOMITTING Time Seen by Provider: 07/15/18 09:49 Source: patient Mode of arrival: Ambulatory Limitations: No Limitations - History of Present Illness Initial Comments: Mrs. Ryan is a 37 yo female with hx of pulmonary embolism and aortic thrombus s/p stent/graft presents with chest pain and syncope. 2 episodes of fainting. Has had left chest pain worse with inspiration. She admits that chest pain is persistent and chronic. She is currently followed at [facility] on [address]. She explains that she is followed by both hematology and cardiology in that clinic. She also explains that her INR is oftentimes low. She is unable to explain why she is not a candidate for Eliquis. However, she stated her field party manager perferred coumadin so that her levels could be monitored. She also explained that Lovenox is an allergy that causes vomiting. Mrs. Ryan is in a hypercoagulable state with hx of DVT, PT, aortic thrombus, hx of lupus anticoagu lant. Her chronic chest pain has been managed with gabapentin and tramadol. She also has hx of bipolar disorder, anxiety, schizophrenia, chronic pain, asthma, thyroid disease, HTN and medication noncompliance. MD Complaint: chest pain -: month(s) Onset: during rest Pain Location: left chest Pain Radiation: none Severity: moderate Quality: sharp Consistency: intermittent Worsens With: inspiration re: other (syncope) - Related Data Previous Rx's Medication Instructions Recorded Last Taken Type Pregabalin [Lyrica] 100 mg PO QAM #30 capsule 05/26/17 1 Day Ago Rx ~03/15/18 ALPRAZolam [Xanax TAB] 0.5 mg PO BID #20 tablet 03/17/18 Unknown Rx Clopidogrel Bisulfate [Plavix] 75 mg PO DAILY #180 tablet 03/17/18 Unknown Rx Gabapentin [Neurontin] 900 mg PO TID #90 tablet 03/17/18 Unknown Rx Pantoprazole [Protonix TAB] 40 mg PO BID #60 tablet 03/17/18 Unknown Rx Pregabalin [Lyrica] 75 mg PO DAILY #30 capsule 03/17/18 Unknown Rx Propranolol [Inderal] 20 mg PO BID #60 tablet 03/17/18 Unknown Rx QUEtiapine [SEROquel] 100 mg PO DAILY #30 tablet 03/17/18 Unknown Rx Rivaroxaban [Xarelto] 20 mg PO QDAY #180 tab 03/17/18 Unknown Rx levETIRAcetam [Keppra] 500 mg PO DAILY #30 tablet 03/17/18 Unknown Rx methIMAzole [Tapazole] 10 mg PO Q8HR tablet 03/17/18 Unknown Rx Methocarbamol [Robaxin-750] 750 mg PO Q6HR PRN #20 tablet 03/31/18 Unknown Rx Ondansetron [Zofran Odt] 4 mg PO Q8HR PRN #20 tab.rapdis 06/22/18 Unknown Rx traMADol [Ultram 50 MG tab] 50 mg PO Q6HR PRN #15 tablet 06/22/18 Unknown Rx Ondansetron [Zofran Odt] 4 mg PO Q8HR #10 tab.rapdis 07/15/18 Unknown Rx traMADol [Ultram 50 MG tab] 50 mg PO Q6HR PRN #10 tablet 07/15/18 Unknown Rx Allergies Allergy/AdvReac Type Severity Reaction Status Date / Time acetaminophen [From Percocet] Allergy Itching Verified 07/15/18 09:11 garlic Allergy Unknown Verified 07/15/18 09:11 ibuprofen [From Motrin] Allergy Unknown Verified 07/15/18 09:11 oxycodone [From Percocet] Allergy Itching Verified 07/15/18 09:11 peanut oil Allergy Unknown Verified 07/15/18 09:11 Penicillins Allergy Unknown Verified 07/15/18 09:11 Heart Score - HEART Score History: Slightly suspicious EKG: Normal Age: < 45 Risk factors: > 3 risk factors or hx of atherosclerotic disease Troponin: < normal limit HEART Score: 2 ED Review of Systems ROS: Stated complaint: FAINTING/CHEST PAIN/VOMITTING Other details as noted in HPI Comment: All other systems reviewed and negative Constitutional: denies: fever, malaise Respiratory: denies: cough Cardiovascular: chest pain, syncope ED Past Medical Hx - Past Medical History Previous Medical History?: Yes Hx Hypertension: Yes Hx Heart Attack/AMI: (normal stress 10-31-16, normal perfusion scan May 2017) Hx Congestive Heart Failure: No Hx Diabetes: No Hx Deep Vein Thrombosis: Yes Hx Pulmonary Embolism: Yes Hx GERD: Yes Hx Sickle Cell Disease: No Hx Seizures: Yes Hx Psychiatric Treatment: Yes (anxiety) Hx Asthma: No Hx COPD: No Hx Tuberculosis: No Additional medical history: pericarditis, pt states hyperthyroidism, thyroid storm, PE x2, (R lung 05/2016, L lung 01/2017--on coumadin), R leg DVT 03/2017, Graves Disease, heart murmur, aortic dissection - Surgical History Additional Surgical History: Left arm surgery 02/2017, Right knee, Rt leg. 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 - Social History Smoking Status: Current Every Day Smoker Substance Use Type: Alcohol - Medications Home Medications: Home Medications Medication Instructions Recorded Confirmed Last Taken Type Pregabalin [Lyrica] 100 mg PO QAM #30 capsule 05/26/17 03/16/18 1 Day Ago Rx ~03/15/18 ALPRAZolam [Xanax TAB] 0.5 mg PO BID #20 tablet 03/17/18 Unknown Rx Clopidogrel Bisulfate [Plavix] 75 mg PO DAILY #180 tablet 03/17/18 Unknown Rx Gabapentin [Neurontin] 900 mg PO TID #90 tablet 03/17/18 Unknown Rx Pantoprazole [Protonix TAB] 40 mg PO BID #60 tablet 03/17/18 Unknown Rx Pregabalin [Lyrica] 75 mg PO DAILY #30 capsule 03/17/18 Unknown Rx Propranolol [Inderal] 20 mg PO BID #60 tablet 03/17/18 Unknown Rx QUEtiapine [SEROquel] 100 mg PO DAILY #30 tablet 03/17/18 Unknown Rx Rivaroxaban [Xarelto] 20 mg PO QDAY #180 tab 03/17/18 Unknown Rx levETIRAcetam [Keppra] 500 mg PO DAILY #30 tablet 03/17/18 Unknown Rx methIMAzole [Tapazole] 10 mg PO Q8HR tablet 03/17/18 Unknown Rx Methocarbamol [Robaxin-750] 750 mg PO Q6HR PRN #20 tablet 03/31/18 Unknown Rx Ondansetron [Zofran Odt] 4 mg PO Q8HR PRN #20 tab.rapdis 06/22/18 Unknown Rx traMADol [Ultram 50 MG tab] 50 mg PO Q6HR PRN #15 tablet 06/22/18 Unknown Rx Ondansetron [Zofran Odt] 4 mg PO Q8HR #10 tab.rapdis 07/15/18 Unknown Rx traMADol [Ultram 50 MG tab] 50 mg PO Q6HR PRN #10 tablet 07/15/18 Unknown Rx ED Physical Exam - General Limitations: No Limitations General appearance: alert, in no apparent distress - Head Head exam: Present: atraumatic, normocephalic - Eye Eye exam: Present: normal appearance - ENT ENT exam: Present: mucous membranes moist - Neck Neck exam: Present: normal inspection, full ROM - Respiratory Respiratory exam: Present: normal lung sounds bilaterally. Absent: respiratory distress, wheezes, rales, rhonchi - Cardiovascular Cardiovascular Exam: Present: regular rate, normal rhythm, normal heart sounds. Absent: systolic murmur, diastolic murmur, rubs, gallop - GI/Abdominal GI/Abdominal exam: Present: soft, normal bowel sounds. Absent: distended, tenderness, guarding, rebound - Extremities Exam Extremities exam: Present: normal inspection - Back Exam Back exam: Present: normal inspection - Neurological Exam Neurological exam: Present: alert, oriented X3 - Psychiatric Psychiatric exam: Present: normal affect, normal mood - Skin Skin exam: Present: warm, dry, intact, normal color. Absent: rash ED Course Vital Signs 07/15/18 09:11 Temperature 98.0 F Pulse Rate 81 Respiratory 16 Rate Blood Pressure 133/71 O2 Sat by Pulse 99 Oximetry GENOVEVA score - Genoveva Score Age > 65: (0) No Aspirin use within the Past 7 Days: (0) No 3 or more CAD Risk Factors: (0) No 2 or more Angina events in past 24 hrs: (1) Yes Known CAD with more than 50% Stenosis: (0) No Elevated Cardiac Markers: (0) No ST Deviation Greater than 0.5mm: (0) No GENOVEVA Score: 1 ED Medical Decision Making - Lab Data Result diagrams: 07/15/18 10:47 07/15/18 10:47 Laboratory Results - last 24 hr 07/15/18 07/15/18 07/15/18 09:26 10:31 10:47 WBC 7.4 RBC 4.87 Hgb 11.2 Hct 35.5 MCV 73 L MCH 23 L MCHC 32 RDW 20.2 H Plt Count 425 Lymph % (Auto) 36.0 H [place] % (Auto) 8.9 H Eos % (Auto) 1.9 Baso % (Auto) 1.1 Lymph # 2.7 [place] # 0.7 Eos # 0.1 Baso # 0.1 Seg Neutrophils % 52.1 Seg Neutrophils # 3.9 PT 14.5 INR 1.06 APTT 24.9 Sodium Potassium Chloride Carbon Dioxide Anion Gap BUN Creatinine Estimated GFR BUN/Creatinine Ratio Glucose Calcium Troponin T < 0.010 07/15/18 10:47 WBC RBC Hgb Hct MCV MCH MCHC RDW Plt Count Lymph % (Auto) [place] % (Auto) Eos % (Auto) Baso % (Auto) Lymph # [place] # Eos # Baso # Seg Neutrophils % Seg Neutrophils # PT INR APTT Sodium 140 Potassium 4.3 Chloride 101.9 Carbon Dioxide 25 Anion Gap 17 BUN 14 Creatinine 1.0 Estimated GFR > 60 BUN/Creatinine Ratio 14 Glucose 72 Calcium 9.3 Troponin T - EKG Data EKG shows normal: sinus rhythm, axis, intervals, QRS complexes, ST-T waves Rate: normal - Radiology Data Radiology results: report reviewed CXR NAP according to radiology - Medical Decision Making Mrs. Ryan has hx of PE, DVT, aortic thrombus, hx of lupus anticoagulant. With normal vitals signs, HR 81, Normal BP, oxygen saturation 100% I do not suspect an acute pulmonary embolism exists at this time. CTA obtained 3 weeks ago at this ER was negative for acute thrombus or acute process. I have encouraged Lovenox or Eliquis instead of coumadin. She declined. She requested Tramadol and Zofran. I provided doses in the ED and prescriptions for the same. She She has had previous negative w/u fore coronary artery disease. In regard to syncope, I do not suspect PE or arrhythmia to be the cause. She will need evaluation by her personal motor driver. Dc'd home Critical care attestation.: If time is entered above; I have spent that time in minutes in the direct care of this critically ill patient, excluding procedure time. ED Disposition Clinical Impression: Chest pain, Syncope Disposition: DC-01 TO HOME OR SELFCARE Is pt being admited?: No Does the pt Need Aspirin: No Condition: Stable Instructions: Chest Pain (ED), Syncope (ED) Prescriptions: traMADol [Ultram 50 MG tab] 50 mg PO Q6HR PRN #10 tablet PRN Reason: Pain Ondansetron [Zofran Odt] 4 mg PO Q8HR #10 tab.rapdis Referrals: PRIMARY CARE, [Primary Care Provider] - 2-3 Days [facility] [Outside] - 3-5 Days
[2018-07-15 10:48] LABS: INR 1.06 (0.87-1.13)
[2018-07-15 10:49] LABS: Partial Thromboplastin Time 24.9 Sec. (24.2-36.6)
--- NOTE | 2018-07-15 10:56 | XRay Report ---
PROCEDURE: XR CHEST ROUTINE 2V TECHNIQUE: PA and lateral chest radiographs were obtained. HISTORY: Chest Pain COMPARISONS: 03/31/2018. FINDINGS: Heart: Normal. Mediastinum/Vessels: Thoracic aortic stent is in place. Lungs/Pleural space: Normal. Bony thorax: No acute osseous abnormality. IMPRESSION: No acute cardiopulmonary disease. This document is electronically signed by Janay Peralta MD., Jul 15 2018 10:55:15 AM ET
[2018-07-15 10:59] LABS: Basophils # (Auto) 0.1 K/mm3 (0.0-0.1); Basophils % (Auto) 1.1 % (0.0-1.8); Eosinophils # (Auto) 0.1 K/mm3 (0.0-0.4); Eosinophils % (Auto) 1.9 % (0.0-4.3); Hematocrit 35.5 % (30.3-42.9); Hemoglobin 11.2 gm/dl (10.1-14.3); Lymphocytes # (Auto) 2.7 K/mm3 (1.2-5.4); Mean Corpuscular HGB Conc 32 % (30-34); Mean Corpuscular Volume 73 fl (79-97); Monocytes # (Auto) 0.7 K/mm3 (0.0-0.8); Monocytes % (Auto) 8.9 % (0.0-7.3); Platelet Count 425 K/mm3 (140-440); Red Blood Count 4.87 M/mm3 (3.65-5.03)
[2018-07-15 11:09] LABS: BUN/Creatinine Ratio 14; Blood Urea Nitrogen 14 mg/dL (7-17); Calcium 9.3 mg/dL (8.4-10.2); Hemolysis Index 3
[2018-07-15 11:10] LABS: Red Cell Distribution Width 20.2 % (13.2-15.2)
[2018-07-15] MEDS ORDERED: ZOFRAN ODT PO ONE (11:36)
[2018-07-15 11:55] VITALS: BP 134/78
== END 2018-07-15 11:55 | disposition home or self-care (01) ==
LOC: ED 09:05
DX: R07.89 Other chest pain (principal); R55 Syncope and collapse; M32.9 Systemic lupus erythematosus, unspecified; I10 Essential (primary) hypertension; J45.909 Unspecified asthma, uncomplicated; E07.9 Disorder of thyroid, unspecified; Z79.01 Long term (current) use of anticoagulants; K21.9 Gastro-esophageal reflux disease without esophagitis; F17.200 Nicotine dependence, unspecified, uncomplicated; Z88.5 Allergy status to narcotic agent; Z88.0 Allergy status to penicillin; Z91.018 Allergy to other foods; Z91.010 Allergy to peanuts; Z86.711 Personal history of pulmonary embolism; Z86.718 Personal history of other venous thrombosis and embolism
CPT/HCPCS: 36415; 71046; 80048; 84484; 85025; 85610; 85730; 93005; 93010; 99284; Q0162

== ENCOUNTER 2018-07-31 23:34 | Emergency (ER) | payer MEDICAID ==
[2018-08-01] MEDS ORDERED: ASPIRIN PO ONE (02:18)
--- NOTE | 2018-08-01 02:35 | XRay Report ---
PROCEDURE: XR CHEST ROUTINE 2V TECHNIQUE: PA and lateral chest radiographs were obtained. HISTORY: Chest pain COMPARISONS: Several priors, most recent July 15, 2018. FINDINGS: Heart: Stable appearance. Mediastinum/Vessels: The ascending thoracic aorta stent graft similar appearance. Lungs/Pleural space: Normal. Bony thorax: No acute osseous abnormality. IMPRESSION: No acute cardiopulmonary disease or significant interval change from the July 15, 2018 rianna blank This document is electronically signed by Vladimir Márquez DO., August 01 2018 02:33:28 AM ET
[2018-08-01 03:48] LABS: BUN/Creatinine Ratio 18; Blood Urea Nitrogen 14 mg/dL (7-17); Calcium 9.1 mg/dL (8.4-10.2)
[2018-08-01 04:11] LABS: Hematocrit 41.3 % (30.3-42.9); Hemoglobin 12.9 gm/dl (10.1-14.3); Mean Corpuscular Volume 77 fl (79-97); Red Blood Count 5.36 M/mm3 (3.65-5.03)
[2018-08-01 04:12] LABS: Basophils # (Auto) 0.1 K/mm3 (0.0-0.1); Basophils % (Auto) 1.5 % (0.0-1.8); Eosinophils # (Auto) 0.3 K/mm3 (0.0-0.4); Eosinophils % (Auto) 3.8 % (0.0-4.3); Lymphocytes # (Auto) 2.8 K/mm3 (1.2-5.4); Mean Corpuscular HGB Conc 31 % (30-34); Monocytes # (Auto) 0.6 K/mm3 (0.0-0.8); Monocytes % (Auto) 7.4 % (0.0-7.3); Platelet Count 330 K/mm3 (140-440); Red Cell Distribution Width 23.2 % (13.2-15.2)
[2018-08-01 04:25] LABS: Hemolysis Index 92
[2018-08-01 06:23] VITALS: BP 120/79
--- NOTE | 2018-08-01 06:24 | Emergency Department Report ---
HPI - General Time Seen by Provider: 08/01/18 06:03 - HPI HPI: 37-year-old female presents to the emergency department with a complaint of some intermittent midsternal chest pain and some episodes of passing out that have been going on over the past 1.5 weeks. She denies any headache, vision change, slurred speech, numbness or paresthesias. Patient says that she feels like she is getting lightheaded before she passes out. She says that she has a history of previous KS with cardiac stents placed, pericarditis, previous DVT on Coumadin and with an IVC filter in place, and hyperthyroidism. 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 She has not taken anything specifically for her symptoms prior to presentation. She denies any illicit drug use. No recent travel or sick contacts at home. ED Past Medical Hx - Past Medical History Hx Hypertension: Yes Hx Heart Attack/AMI: (normal stress 10-31-16, normal perfusion scan May 2017) Hx Congestive Heart Failure: No Hx Diabetes: No Hx Deep Vein Thrombosis: Yes Hx Pulmonary Embolism: Yes Hx GERD: Yes Hx Sickle Cell Disease: No Hx Seizures: Yes Hx Psychiatric Treatment: Yes (anxiety) Hx Asthma: No Hx COPD: No Hx Tuberculosis: No Additional medical history: pericarditis, pt states hyperthyroidism, thyroid storm, PE x2, (R lung 05/2016, L lung 01/2017--on coumadin), R leg DVT 03/2017, Graves Disease, heart murmur, aortic dissection - Surgical History Additional Surgical History: Left arm surgery 02/2017, Right knee, Rt leg. 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 - Social History Smoking Status: Never Smoker - Medications Home Medications: Home Medications Medication Instructions Recorded Confirmed Last Taken Type Pregabalin [Lyrica] 100 mg PO QAM #30 capsule 05/26/17 03/16/18 1 Day Ago Rx ~03/15/18 ALPRAZolam [Xanax TAB] 0.5 mg PO BID #20 tablet 03/17/18 Unknown Rx Clopidogrel Bisulfate [Plavix] 75 mg PO DAILY #180 tablet 03/17/18 Unknown Rx Gabapentin [Neurontin] 900 mg PO TID #90 tablet 03/17/18 Unknown Rx Pantoprazole [Protonix TAB] 40 mg PO BID #60 tablet 03/17/18 Unknown Rx Pregabalin [Lyrica] 75 mg PO DAILY #30 capsule 03/17/18 Unknown Rx Propranolol [Inderal] 20 mg PO BID #60 tablet 03/17/18 Unknown Rx QUEtiapine [SEROquel] 100 mg PO DAILY #30 tablet 03/17/18 Unknown Rx Rivaroxaban [Xarelto] 20 mg PO QDAY #180 tab 03/17/18 Unknown Rx levETIRAcetam [Keppra] 500 mg PO DAILY #30 tablet 03/17/18 Unknown Rx methIMAzole [Tapazole] 10 mg PO Q8HR tablet 03/17/18 Unknown Rx Methocarbamol [Robaxin-750] 750 mg PO Q6HR PRN #20 tablet 03/31/18 Unknown Rx Ondansetron [Zofran Odt] 4 mg PO Q8HR PRN #20 tab.rapdis 06/22/18 Unknown Rx traMADol [Ultram 50 MG tab] 50 mg PO Q6HR PRN #15 tablet 06/22/18 Unknown Rx Ondansetron [Zofran Odt] 4 mg PO Q8HR #10 tab.rapdis 07/15/18 Unknown Rx traMADol [Ultram 50 MG tab] 50 mg PO Q6HR PRN #10 tablet 07/15/18 Unknown Rx ED Review of Systems ROS: Stated complaint: Other details as noted in HPI Comment: All other systems reviewed and negative Constitutional: denies: chills, fever Eyes: denies: eye pain, vision change ENT: denies: ear pain, throat pain Respiratory: denies: cough, shortness of breath Cardiovascular: chest pain, syncope Gastrointestinal: denies: abdominal pain, vomiting Genitourinary: denies: dysuria, discharge Musculoskeletal: denies: back pain, arthralgia Skin: denies: rash, lesions Neurological: denies: headache, weakness Physical Exam - Physical Exam Vital Signs: Vital Signs 08/01/18 08/01/18 08/01/18 02:14 03:35 05:20 Pulse Rate 65 66 69 Respiratory 19 19 15 Rate Blood Pressure 138/77 128/73 [Right] O2 Sat by Pulse 99 100 97 Oximetry Physical Exam: GENERAL: The patient is well-developed well-nourished. HENT: Normocephalic. Atraumatic. Patient has moist mucous membranes. EYES: Extraocular motions are intact. NECK: Supple. Trachea is midline. CHEST/LUNGS: Clear to auscultation. There is no respiratory distress noted. HEART/CARDIOVASCULAR: Regular. There is no tachycardia. There is no murmur. ABDOMEN: Abdomen is soft, nontender. Patient has normal bowel sounds. There is no abdominal distention. SKIN: Skin is warm and dry. NEURO: The patient is awake, alert, and oriented. The patient is cooperative. The patient has no focal neurologic deficits. The patient has normal speech. MUSCULOSKELETAL: There is no tenderness or deformity. There is no evidence of acute injury. ED Course Vital Signs 08/01/18 08/01/18 08/01/18 02:14 03:35 05:20 Pulse Rate 65 66 69 Respiratory 19 19 15 Rate Blood Pressure 138/77 128/73 [Right] O2 Sat by Pulse 99 100 97 Oximetry ED Medical Decision Making - Lab Data Result diagrams: 08/01/18 02:26 08/01/18 02:26 - EKG Data -: EKG Interpreted by Me EKG shows normal: sinus rhythm, axis, intervals, QRS complexes, ST-T waves Rate: normal - EKG Data When compared to previous EKG there are: no significant change Interpretation: normal EKG - Radiology Data Radiology results: image reviewed interpreted by me: Chest x-ray does not show any acute process. There are no pleural effusions, obvious pneumonia and there is no pneumothorax. - Medical Decision Making This patient presented to the emergency department with a complaint of some chest pain and some syncopal episodes have been going on for the past 1.5 weeks. By the time my shift started, patient has been in the emergency department for about 7 hours and he had the majority of her workup completed. Labs were unremarkable including a CBC, metabolic panel and a troponin. Vital signs stable throughout her ED course including being afebrile. At the time of my examination, the patient denies any chest pain and is asymptomatic. Reportedly, the patient continues to focus on narcotic pain medication and keeps asking for a prescription. I explained to her that I was going to utilize the [employer] prescription monitoring system and that if she had not filled any significant amount of scheduled for narcotic medication that I would consider it. However as soon as that was mentioned, the patient decided she no longer wants any medication and just wants to leave. I did explain to her that I had the plan to check a second troponin, check a d-dimer and possible subsequent CT angiography of the chest, to further evaluate her chest pain and previous syncopal episodes. However the patient refers any further workup and wanted to leave the emergency department. 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 - Differential Diagnosis KS, dysrhythmia, vasovagal, orthostatic hypotension Critical Care Time: No Critical care attestation.: If time is entered above; I have spent that time in minutes in the direct care of this critically ill patient, excluding procedure time. ED Disposition Clinical Impression: Intermittent chest pain Syncope Qualifiers: Syncope type: unspecified Qualified Code(s): R55 - Syncope and collapse Disposition: DC-01 TO HOME OR SELFCARE Is pt being admited?: No Condition: Stable Instructions: Chest Pain (ED), Syncope (ED) Additional Instructions: Please follow up with a primary care physician in the next few days. Return to the emergency department immediately with any return of chest pain, further ep isodes of passing out, worsening of her symptoms, or with any acute distress. I have also given a referral for a local arch cushion skiving machine operator, Dr. Watson, to follow up regarding your chest pain. Referrals: NIKKY BARNETT MD [Primary Care Provider] - 2-3 Days MARIA DE JESUS WATSON MD [Staff Physician] - 2-3 Days [facility] [Outside] - 2-3 Days Time of Disposition: 06:24
== END 2018-08-01 06:35 | disposition home or self-care (01) ==
LOC: ED 23:34
DX: R55 Syncope and collapse (principal); R07.89 Other chest pain; I10 Essential (primary) hypertension; I25.2 Old myocardial infarction; K21.9 Gastro-esophageal reflux disease without esophagitis; F41.9 Anxiety disorder, unspecified; E05.91 Thyrotoxicosis, unspecified with thyrotoxic crisis or storm; E05.01 Thyrotoxicosis with diffuse goiter with thyrotoxic crisis or storm; Z86.718 Personal history of other venous thrombosis and embolism; Z79.01 Long term (current) use of anticoagulants; Z86.711 Personal history of pulmonary embolism; Z79.899 Other long term (current) drug therapy; Z91.018 Allergy to other foods; Z91.010 Allergy to peanuts; Z88.6 Allergy status to analgesic agent; Z88.0 Allergy status to penicillin
CPT/HCPCS: 36415; 71046; 80048; 84484; 85025; 93005; 93010

== ENCOUNTER 2018-10-13 13:10 | Emergency (ER) | payer MEDICAID ==
[2018-10-13 13:35] VITALS: BP 116/73
--- NOTE | 2018-10-13 14:10 | Event Note ---
ED Screening Note Date of service: 10/13/18 Time: 13:33 ED Screening Note: 38 y/o female comes in for chest pain and fainting. This initial assessment/diagnostic orders/clinical plan/treatment(s) is/are subject to change based on patients health status, clinical progression and re- assessment by fellow clinical providers in the ED. Further treatment and workup at subsequent clinical providers discretion. Patient/guardian urged not to elope from the ED as their condition may be serious if not clinically assessed and managed. Initial orders include:
[2018-10-13 14:15] LABS: Hematocrit 41.4 % (30.3-42.9); Hemoglobin 13.8 gm/dl (10.1-14.3); Mean Corpuscular HGB Conc 33 % (30-34); Mean Corpuscular Volume 82 fl (79-97); Platelet Count 355 K/mm3 (140-440); Red Blood Count 5.05 M/mm3 (3.65-5.03); Red Cell Distribution Width 19.8 % (13.2-15.2)
[2018-10-13 14:15] LABS: Bilirubin,Urine NEG (Negative); Blood,Urine NEG (Negative); Color,Urine Yellow (Yellow); Mucus,Urine FEW /HPF; Protein,Urine <15 mg/dL mg/dL (Negative); Urobilinogen,Urine < 2.0 mg/dL (<2.0)
[2018-10-13 14:25] LABS: INR 0.99 (0.87-1.13)
[2018-10-13 14:38] LABS: Alanine Aminotransferase 13 units/L (7-56); Albumin 3.9 g/dL (3.9-5); BUN/Creatinine Ratio 11; Blood Urea Nitrogen 10 mg/dL (7-17); Calcium 8.9 mg/dL (8.4-10.2); Hemolysis Index 9
[2018-10-13 14:51] LABS: Band Neutrophils # (Manual) 0.1 K/mm3; Basophils % (Manual) 0 % (0.0-1.8); RBC Morphology Normal; Total Cells Counted 100
--- NOTE | 2018-10-13 14:59 | XRay Report ---
CHEST 2 VIEWS INDICATION / CLINICAL INFORMATION: chest pain. COMPARISON: 07/31/2018 FINDINGS: SUPPORT DEVICES: None. HEART / MEDIASTINUM: No significant abnormality. LUNGS / PLEURA: No significant pulmonary or pleural abnormality. No pneumothorax. ADDITIONAL FINDINGS: Endovascular graft is present throughout the descending thoracic aorta unchanged in appearance and position. IMPRESSION: 1. No acute findings. No interval change. Signer Name: Rosaline Holguin MD Signed: 10/13/2018 2:55 PM Workstation Name: [id number]
--- NOTE | 2018-10-13 15:37 | Emergency Department Report ---
ED General Adult HPI - General Chief complaint: Weakness Stated complaint: FAINTING/CHEST PAIN/VOMITING Time Seen by Provider: 10/13/18 13:32 Source: patient Mode of arrival: Ambulatory Limitations: No Limitations - History of Present Illness Initial comments: This is a 38-year-old female with a history Patient presents stating that she's been having a couple of fainting spells past 2 days. Patient states this is happening once before about a month after her surgery. Patient states she is currently on Coumadin and her doctor told her her level should be between 3 and 3.5. Patient states that she has a follow-up appointment with the in process inspector and her neurologist on November 05. - Related Data Previous Rx's Medication Instructions Recorded Last Taken Type Pregabalin [Lyrica] 100 mg PO QAM #30 capsule 05/26/17 1 Day Ago Rx ~03/15/18 ALPRAZolam [Xanax TAB] 0.5 mg PO BID #20 tablet 03/17/18 Unknown Rx Clopidogrel Bisulfate [Plavix] 75 mg PO DAILY #180 tablet 03/17/18 Unknown Rx Gabapentin [Neurontin] 900 mg PO TID #90 tablet 03/17/18 Unknown Rx Pantoprazole [Protonix TAB] 40 mg PO BID #60 tablet 03/17/18 Unknown Rx Pregabalin [Lyrica] 75 mg PO DAILY #30 capsule 03/17/18 Unknown Rx Propranolol [Inderal] 20 mg PO BID #60 tablet 03/17/18 Unknown Rx QUEtiapine [SEROquel] 100 mg PO DAILY #30 tablet 03/17/18 Unknown Rx Rivaroxaban [Xarelto] 20 mg PO QDAY #180 tab 03/17/18 Unknown Rx levETIRAcetam [Keppra] 500 mg PO DAILY #30 tablet 03/17/18 Unknown Rx methIMAzole [Tapazole] 10 mg PO Q8HR tablet 03/17/18 Unknown Rx Methocarbamol [Robaxin-750] 750 mg PO Q6HR PRN #20 tablet 03/31/18 Unknown Rx Ondansetron [Zofran Odt] 4 mg PO Q8HR PRN #20 tab.rapdis 06/22/18 Unknown Rx traMADol [Ultram 50 MG tab] 50 mg PO Q6HR PRN #15 tablet 06/22/18 Unknown Rx Ondansetron [Zofran Odt] 4 mg PO Q8HR #10 tab.rapdis 07/15/18 Unknown Rx traMADol [Ultram 50 MG tab] 50 mg PO Q6HR PRN #10 tablet 07/15/18 Unknown Rx Allergies Allergy/AdvReac Type Severity Reaction Status Date / Time acetaminophen [From Percocet] Allergy Itching Verified 07/15/18 09:11 garlic Allergy Unknown Verified 07/15/18 09:11 ibuprofen [From Motrin] Allergy Unknown Verified 07/15/18 09:11 oxycodone [From Percocet] Allergy Itching Verified 07/15/18 09:11 peanut oil Allergy Unknown Verified 07/15/18 09:11 Penicillins Allergy Unknown Verified 07/15/18 09:11 ED Review of Systems ROS: Stated complaint: FAINTING/CHEST PAIN/VOMITING Other details as noted in HPI Comment: All other systems reviewed and negative ED Past Medical Hx - Past Medical History Previous Medical History?: Yes Hx Hypertension: Yes Hx Heart Attack/AMI: (normal stress 10-31-16, normal perfusion scan May 2017) Hx Congestive Heart Failure: No Hx Diabetes: No Hx Deep Vein Thrombosis: Yes Hx Pulmonary Embolism: Yes Hx GERD: Yes Hx Sickle Cell Disease: No Hx Seizures: Yes Hx Psychiatric Treatment: Yes (anxiety) Hx Asthma: No Hx COPD: No Hx Tuberculosis: No Additional medical history: pericarditis, pt states hyperthyroidism, thyroid storm, PE x2, (R lung 05/2016, L lung 01/2017--on coumadin), R leg DVT 03/2017, Graves Disease, heart murmur, aortic dissection - Surgical History Past Surgical History?: Yes Additional Surgical History: Left arm surgery 02/2017, Right knee, Rt leg. 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 - Social History Smoking Status: Current Every Day Smoker Substance Use Type: None - Medications Home Medications: Home Medications Medication Instructions Recorded Confirmed Last Taken Type Pregabalin [Lyrica] 100 mg PO QAM #30 capsule 05/26/17 03/16/18 1 Day Ago Rx ~03/15/18 ALPRAZolam [Xanax TAB] 0.5 mg PO BID #20 tablet 03/17/18 Unknown Rx Clopidogrel Bisulfate [Plavix] 75 mg PO DAILY #180 tablet 03/17/18 Unknown Rx Gabapentin [Neurontin] 900 mg PO TID #90 tablet 03/17/18 Unknown Rx Pantoprazole [Protonix TAB] 40 mg PO BID #60 tablet 03/17/18 Unknown Rx Pregabalin [Lyrica] 75 mg PO DAILY #30 capsule 03/17/18 Unknown Rx Propranolol [Inderal] 20 mg PO BID #60 tablet 03/17/18 Unknown Rx QUEtiapine [SEROquel] 100 mg PO DAILY #30 tablet 03/17/18 Unknown Rx Rivaroxaban [Xarelto] 20 mg PO QDAY #180 tab 03/17/18 Unknown Rx levETIRAcetam [Keppra] 500 mg PO DAILY #30 tablet 03/17/18 Unknown Rx methIMAzole [Tapazole] 10 mg PO Q8HR tablet 03/17/18 Unknown Rx Methocarbamol [Robaxin-750] 750 mg PO Q6HR PRN #20 tablet 03/31/18 Unknown Rx Ondansetron [Zofran Odt] 4 mg PO Q8HR PRN #20 tab.rapdis 06/22/18 Unknown Rx traMADol [Ultram 50 MG tab] 50 mg PO Q6HR PRN #15 tablet 06/22/18 Unknown Rx Ondansetron [Zofran Odt] 4 mg PO Q8HR #10 tab.rapdis 07/15/18 Unknown Rx traMADol [Ultram 50 MG tab] 50 mg PO Q6HR PRN #10 tablet 07/15/18 Unknown Rx ED Physical Exam - General Limitations: No Limitations General appearance: alert, in no apparent distress - Head Head exam: Present: atraumatic, normocephalic - Eye Eye exam: Present: normal appearance - ENT ENT exam: Present: mucous membranes moist - Neck Neck exam: Present: normal inspection - Respiratory Respiratory exam: Present: normal lung sounds bilaterally. Absent: respiratory distress - Cardiovascular Cardiovascular Exam: Present: regular rate, normal rhythm. Absent: systolic murmur, diastolic murmur, rubs, gallop - GI/Abdominal GI/Abdominal exam: Present: soft, normal bowel sounds - Extremities Exam Extremities exam: Present: normal inspection - Back Exam Back exam: Present: normal inspection - Neurological Exam Neurological exam: Present: alert, oriented X3 - Psychiatric Psychiatric exam: Present: normal affect, normal mood - Skin Skin exam: Present: warm, dry, intact, normal color. Absent: rash ED Course Vital Signs 10/13/18 13:32 Temperature 98.4 F Pulse Rate 89 Respiratory 20 Rate Blood Pressure 116/73 O2 Sat by Pulse 97 Oximetry ED Medical Decision Making - Lab Data Result diagrams: 10/13/18 13:57 10/13/18 13:57 - Radiology Data Radiology results: report reviewed, image reviewed chest pain. COMPARISON: 07/31/2018 FINDINGS: SUPPORT DEVICES: None. HEART / MEDIASTINUM: No significant abnormality. LUNGS / PLEURA: No significant pulmonary or pleural abnormality. No pneumothorax. ADDITIONAL FINDINGS: Endovascular graft is present throughout the descending thoracic aorta unchanged in appearance and position. IMPRESSION: 1. No acute findings. No interval change. Signer Name: Rosaline Holguin MD Signed: 10/13/2018 2:55 PM Workstation Name: [id number] Transcribed By: Dictated By: Rosaline Holguin MD Electronically Authenticated By: Rosaline Holguin MD Signed Date/Time: 10/13/18 1746 Critical care attestation.: If time is entered above; I have spent that time in minutes in the direct care of this critically ill patient, excluding procedure time. ED Disposition Condition: Stable Referrals: PRIMARY CAREMD [Primary Care Provider] - 3-5 Days
[2018-10-13 16:37] LABS: HCG Qualitative,Urine Negative (Negative)
[2018-10-13] MEDS ORDERED: ULTRAM PO ONE (16:43)
== END 2018-10-13 18:00 | disposition home or self-care (01) ==
LOC: ED 13:10
DX: R55 Syncope and collapse (principal); I10 Essential (primary) hypertension; I25.2 Old myocardial infarction; K21.9 Gastro-esophageal reflux disease without esophagitis; F41.9 Anxiety disorder, unspecified; F17.200 Nicotine dependence, unspecified, uncomplicated; Z86.711 Personal history of pulmonary embolism; Z86.718 Personal history of other venous thrombosis and embolism; Z88.6 Allergy status to analgesic agent; Z88.5 Allergy status to narcotic agent; Z88.0 Allergy status to penicillin; Z91.018 Allergy to other foods; Z79.899 Other long term (current) drug therapy
CPT/HCPCS: 36415; 71046; 80053; 81001; 81025; 82550; 84484; 85007; 85025; 85610

== ENCOUNTER 2018-11-25 09:03 | Inpatient (IN) | payer MEDICAID ==
--- NOTE | 2018-11-25 09:58 | XRay Report ---
CHEST 2 VIEWS INDICATION / CLINICAL INFORMATION: Chest Pain. COMPARISON: 07/31/2018 FINDINGS: SUPPORT DEVICES: None. HEART / MEDIASTINUM: No significant abnormality. Endovascular graft is present in the descending thor acic aorta, unchanged in appearance position. LUNGS / PLEURA: No significant pulmonary or pleural abnormality. No pneumothorax. ADDITIONAL FINDINGS: No significant additional findings. IMPRESSION: 1. No acute findings. No interval change. Signer Name: Rosaline Holguin MD Signed: 11/25/2018 9:54 AM Workstation Name: [id number]
[2018-11-25] MEDS ORDERED: fentaNYL 100 MCG/2 ML INJ IV ONE ×2 (10:03→12:12)
[2018-11-25] MEDS ORDERED: ONDANSETRON 4 MG/2 ML INJ IV ONE (10:03)
--- NOTE | 2018-11-25 10:12 | Emergency Department Report ---
HPI - General Chief Complaint: Chest Pain Time Seen by Provider: 11/25/18 09:50 - HPI HPI: Room 26 The patient is a 38-year-old female presenting with chief complaint of chest pain. The patient states for 2 weeks she's had intermittent substernal chest pain described as constant sticking pain. Patient states she's also had bilateral extremity numbness for the past 2 weeks. The patient states her chest pain has been associated with shortness of breath, nausea/vomiting and diaphoresis. The patient states partially 3 days ago walking she had a syncopal episode and awakened on the ground. The patient states she did not seek medical attention at that time. Patient states she's been compliant with her Coumadin. Patient states her last stress test occurred approximately 1.5 years ago she's never had a cardiac catheterization. Patient currently gives her chest pain score of 8.5/10 ED Past Medical Hx - Past Medical History Hx Hypertension: Yes Hx Heart Attack/AMI: (normal stress 10-31-16, normal perfusion scan May 2017) Hx Deep Vein Thrombosis: Yes Hx Pulmonary Embolism: Yes Hx GERD: Yes Hx Seizures: Yes Hx Psychiatric Treatment: Yes (anxiety) Additional medical history: pericarditis, pt states hyperthyroidism, thyroid storm, PE x2, (R lung 05/2016, L lung 01/2017--on coumadin), R leg DVT 03/2017, Graves Disease, heart murmur, aortic dissection - Surgical History Additional Surgical History: Left arm surgery 02/2017, Right knee, Rt leg. 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 - Family History Family history: no significant - Social History Smoking Status: Current Some Day Smoker Substance Use Type: Marijuana - Medications Home Medications: Home Medications Medication Instructions Recorded Confirmed Last Taken Type Pregabalin 100 mg PO QAM #30 capsule 05/26/17 03/16/18 1 Day Ago Rx ~03/15/18 ALPRAZolam [Xanax TAB] 0.5 mg PO BID #20 tablet 03/17/18 Unknown Rx Clopidogrel Bisulfate [Plavix] 75 mg PO DAILY #180 tablet 03/17/18 Unknown Rx Gabapentin [Neurontin] 900 mg PO TID #90 tablet 03/17/18 Unknown Rx Pantoprazole [Protonix TAB] 40 mg PO BID #60 tablet 03/17/18 Unknown Rx Pregabalin 75 mg PO DAILY #30 capsule 03/17/18 Unknown Rx Propranolol [Inderal] 20 mg PO BID #60 tablet 03/17/18 Unknown Rx QUEtiapine [SEROquel] 100 mg PO DAILY #30 tablet 03/17/18 Unknown Rx Rivaroxaban [Xarelto] 20 mg PO QDAY #180 tab 03/17/18 Unknown Rx levETIRAcetam [Keppra] 500 mg PO DAILY #30 tablet 03/17/18 Unknown Rx methIMAzole [Tapazole] 10 mg PO Q8HR tablet 03/17/18 Unknown Rx Methocarbamol [Robaxin-750] 750 mg PO Q6HR PRN #20 tablet 03/31/18 Unknown Rx Ondansetron [Zofran Odt] 4 mg PO Q8HR PRN #20 tab.rapdis 06/22/18 Unknown Rx traMADol [Ultram 50 MG tab] 50 mg PO Q6HR PRN #15 tablet 06/22/18 Unknown Rx Ondansetron [Zofran Odt] 4 mg PO Q8HR #10 tab.rapdis 07/15/18 Unknown Rx traMADol [Ultram 50 MG tab] 50 mg PO Q6HR PRN #10 tablet 10/13/18 Unknown Rx ED Review of Systems ROS: Stated complaint: FAINTING/CHEST PAIN/VOMITING Other details as noted in HPI Constitutional: diaphoresis Eyes: denies: eye pain ENT: denies: throat pain Respiratory: shortness of breath Cardiovascular: chest pain Endocrine: no symptoms reported Gastrointestinal: nausea, vomiting Musculoskeletal: denies: back pain Neurological: paresthesias Physical Exam - Physical Exam Vital Signs: Vital Signs 11/25/18 09:05 Temperature 97.9 F Pulse Rate 62 Respiratory 16 Rate Blood Pressure 130/70 O2 Sat by Pulse 100 Oximetry Physical Exam: GENERAL: The patient is well-developed well-nourished female lying on stretcher not appear to be in acute distress. [] HEENT: Normocephalic. Atraumatic. Extraocular motions are intact. Patient has moist mucous membranes. NECK: Supple. Trachea midline CHEST/LUNGS: Clear to auscultation. There is no respiratory distress noted. HEART/CARDIOVASCULAR: Regular. There is no tachycardia. There is no gallop rub or murmur. ABDOMEN: Abdomen is soft, nontender. Patient has normal bowel sounds. There is no abdominal distention. SKIN: There is no rash. There is no edema. There is no diaphoresis. NEURO: The patient is awake, alert, and oriented. The patient is cooperative. The patient has normal speech MUSCULOSKELETAL: There is no evidence of acute injury. ED Course Vital Signs 11/25/18 09:05 Temperature 97.9 F Pulse Rate 62 Respiratory 16 Rate Blood Pressure 130/70 O2 Sat by Pulse 100 Oximetry - EJ/Peripheral Line Neck R Time Out Performed: Yes Indications: nurses unable to establis Skin Cleansed in Sterile Fashion: Yes Size: 20 Dressing Placed: Tegaderm Patient Tolerated Procedure: no complications ED Medical Decision Making - Lab Data Result diagrams: 11/25/18 10:13 11/25/18 10:13 Laboratory Tests 11/25/18 11/25/18 11/25/18 10:13 10:13 10:13 WBC 7.3 RBC 4.83 Hgb 14.1 Hct 42.3 MCV 88 MCH 29 MCHC 33 RDW 17.5 H Plt Count 253 Lymph % (Auto) 35.9 H [place] % (Auto) 6.5 Eos % (Auto) 3.1 Baso % (Auto) 1.5 Lymph # 2.6 [place] # 0.5 Eos # 0.2 Baso # 0.1 Seg Neutrophils % 53.0 Seg Neutrophils # 3.9 PT 12.5 INR 0.96 APTT 23.7 L D-Dimer 432.71 H Sodium 139 Potassium 4.1 Chloride 104.7 Carbon Dioxide 21 L Anion Gap 17 BUN 11 Creatinine 0.8 Estimated GFR > 60 BUN/Creatinine Ratio 14 Glucose 106 H Calcium 8.8 Magnesium Troponin T < 0.010 TSH Free T4 11/25/18 11/25/18 11/25/18 10:13 10:13 11:21 WBC RBC Hgb Hct MCV MCH MCHC RDW Plt Count Lymph % (Auto) [place] % (Auto) Eos % (Auto) Baso % (Auto) Lymph # [place] # Eos # Baso # Seg Neutrophils % Seg Neutrophils # PT INR APTT D-Dimer Sodium Potassium Chloride Carbon Dioxide Anion Gap BUN Creatinine Estimated GFR BUN/Creatinine Ratio Glucose Calcium Magnesium 2.10 Troponin T < 0.010 TSH 0.312 Free T4 0.93 - EKG Data -: EKG Interpreted by Me EKG shows normal: sinus rhythm Rate: normal - EKG Data When compared to previous EKG there are: no significant change Interpretation: unchanged when compared t (07/31/2018) - Radiology Data Radiology results: report reviewed (chest x-ray, VQ scan), image reviewed (chest x-ray, VQ scan) interpreted by me: Chest x-ray-no focal infiltrates, no pneumothorax [address] [address] XRay Report Signed Patient: FELIZ HERRING MR#: [id number] : 1980 Acct:[id number] Age/Sex: 38 / F ADM Date: 11/25/18 Loc: ED Attending Dr: Ordering Physician: JOHN ZAMORA MD Date of Service: 11/25/18 Procedure(s): XR chest routine 2V Accession Number(s): [id number] cc: JOHN ZAMORA MD Fluoro Time In Minutes: CHEST 2 VIEWS INDICATION / CLINICAL INFORMATION: Chest Pain. COMPARISON: 07/31/2018 FINDINGS: SUPPORT DEVICES: None. HEART / MEDIASTINUM: No significant abnormality. Endovascular graft is present in the descending thoracic aorta, unchanged in appearance position. LUNGS / PLEURA: No significant pulmonary or pleural abnormality. No pneumothorax. ADDITIONAL FINDINGS: No significant additional findings. IMPRESSION: 1. No acute findings. No interval change. Signer Name: Rosaline Holguin MD Signed: 11/25/2018 9:54 AM Workstation Name: [id number] Transcribed By: JR Dictated By: Rosaline Holguin MD Electronically Authenticated By: Rosaline Holguin MD Signed Date/Time: 11/25/18 0954 DD/ TD/TT: [address] [address] Nuclear Medicine Report Signed Patient: FELIZ HERRING MR#: [id number] : 1980 Acct:[id number] Age/Sex: 38 / F ADM Date: 11/25/18 Loc: ED Attending Dr: Ordering Physician: JOHN ZAMORA MD Date of Service: 11/25/18 Procedure(s): NM lung scan perf/vent Accession Number(s): [id number] cc: JOHN ZAMORA MD Nuclear medicine ventilation/perfusion lung scan Indication: Shortness of breath Technique: 15 mCi of Xenon-133 were given by inhalation. 5 mCi of Tc 99m MAA were given by IV. Findings: Comparison with chest radiograph from today. Wash-in, equilibrium, and wash-out phases of ventilation are normal. No air- trapping is seen. No perfusion defects are noted. Impression: Low probability for pulmonary embolism. Signer Name: Chris Dowd MD Signed: 11/25/2018 1:57 PM Workstation Name: [id number] Transcribed By: TL Dictated By: Chris Dowd MD Electronically Authenticated By: Chris Dowd MD Signed Date/Time: 11/25/181356 DD/ 55 TD/TT: - Differential Diagnosis ACS, PE, pericarditis, GERD Critical care attestation.: If time is entered above; I have spent that time in minutes in the direct care of this critically ill patient, excluding procedure time. ED Disposition Clinical Impression: Chest pain, Syncope Disposition: -09 OP ADMIT IP TO THIS HOSP Is pt being admited?: Yes Does the pt Need Aspirin: Yes Condition: Fair Instructions: Chest Pain (ED), Syncope (ED) Referrals: PRIMARY CARE, [Primary Care Provider] - 3-5 Days Time of Disposition: 14:08 (hospitalist paged (Dr Kern))
[2018-11-25 10:34] LABS: Basophils # (Auto) 0.1 K/mm3 (0.0-0.1); Basophils % (Auto) 1.5 % (0.0-1.8); Eosinophils # (Auto) 0.2 K/mm3 (0.0-0.4); Eosinophils % (Auto) 3.1 % (0.0-4.3); Hematocrit 42.3 % (30.3-42.9); Hemoglobin 14.1 gm/dl (10.1-14.3); Lymphocytes # (Auto) 2.6 K/mm3 (1.2-5.4); Lymphocytes % (Auto) 35.9 % (13.4-35.0); Mean Corpuscular HGB Conc 33 % (30-34); Mean Corpuscular Volume 88 fl (79-97); Monocytes # (Auto) 0.5 K/mm3 (0.0-0.8); Monocytes % (Auto) 6.5 % (0.0-7.3); Platelet Count 253 K/mm3 (140-440); Red Blood Count 4.83 M/mm3 (3.65-5.03); Red Cell Distribution Width 17.5 % (13.2-15.2)
[2018-11-25 10:49] LABS: BUN/Creatinine Ratio 14; Blood Urea Nitrogen 11 mg/dL (7-17); Calcium 8.8 mg/dL (8.4-10.2); Hemolysis Index 8
[2018-11-25 10:59] LABS: Free T4 (Free Thyroxine) 0.93 ng/dL (0.76-1.46)
[2018-11-25 11:00] LABS: Partial Thromboplastin Time 23.7 Sec. (24.2-36.6)
[2018-11-25 11:01] LABS: INR 0.96 (0.87-1.13)
[2018-11-25] MEDS ORDERED: HYDROcodone/ACETAMINOPHEN 5-325 MG TAB PO ONE (13:44)
[2018-11-25] MEDS ORDERED: MORPHINE 4 MG/1 ML INJ IV ONE (13:58)
--- NOTE | 2018-11-25 14:01 | Nuclear Medicine Report ---
Nuclear medicine ventilation/perfusion lung scan Indication: Shortness of breath Technique: 15 mCi of Xenon-133 were given by inhalation. 5 mCi of Tc 99m MAA were given by IV. Findings: Comparison with chest radiograph from today. Wash-in, equilibrium, and wash-out phases of ventilation are normal. No air-trapping is seen. No perfusion defects are noted. Impression: Low probability for pulmonary embolism. Signer Name: Chris Dowd MD Signed: 11/25/2018 1:57 PM Workstation Name: [id number]
[2018-11-25] MEDS ORDERED: CLOPIDOGREL 300 MG TAB PO ONE (14:09)
--- NOTE | 2018-11-25 14:17 | History and Physical Report ---
History of Present Illness Chief complaint: I feel short of breath History of present illness: 38 YO Female with HTN, NV, DVT/PE on Therapeutic Anticoagulation, Nicotine Dependence, Seizure Disorder, GERD, Graves Disease, Anxiety, Obesity Hypoventilation, Medication Noncompliance, Aortic Dissection S/P TEVAR presents to ED for evaluation. Pt states that she has experienced "sticking sensation" in her chest, bilateral arm numbness, and shortness of breath over the past 2 weeks, with persistently worsening symptoms over the past 1 week. Pt also reports a syncopal episode 3 days ago which occurred while walking, decreased exercise tolerance, dypsnea on exertion. Pt did not seek medical care after syncopal episode. Pt transported to [facility] via private vehicle. Pt seen and evaluated in ED and found to have symptoms consistent with CHF, Subtherapeutic INR. Pt admitted to telemetry. Cardiology team consulted in ED. Prior admission on 03/15/18 reviewed. All listed medication reconciled at time of exam. Home medication pending reentry by ED staff due to updated patient medication list. Past History Past Medical History: acute NV, DVT, GERD, hypertension, pulmonary embolism, seizures, other (Graves Disease) Past Surgical History: Other (Left ARm, Right Knee, TEVAR) Social history: single, smoking Family history: hypertension Medications and Allergies Allergies Allergy/AdvReac Type Severity Reaction Status Date / Time acetaminophen [From Percocet] Allergy Itching Verified 07/15/18 09:11 garlic Allergy Unknown Verified 07/15/18 09:11 ibuprofen [From Motrin] Allergy Unknown Verified 07/15/18 09:11 oxycodone [From Percocet] Allergy Itching Verified 07/15/18 09:11 peanut oil Allergy Unknown Verified 07/15/18 09:11 Penicillins Allergy Unknown Verified 07/15/18 09:11 Home Medications Medication Instructions Recorded Confirmed Last Taken Type Pregabalin 100 mg PO QAM #30 capsule 05/26/17 03/16/18 1 Day Ago Rx ~03/15/18 ALPRAZolam [Xanax TAB] 0.5 mg PO BID #20 tablet 03/17/18 Unknown Rx Clopidogrel Bisulfate [Plavix] 75 mg PO DAILY #180 tablet 03/17/18 Unknown Rx Gabapentin [Neurontin] 900 mg PO TID #90 tablet 03/17/18 Unknown Rx Pantoprazole [Protonix TAB] 40 mg PO BID #60 tablet 03/17/18 Unknown Rx Pregabalin 75 mg PO DAILY #30 capsule 03/17/18 Unknown Rx Propranolol [Inderal] 20 mg PO BID #60 tablet 03/17/18 Unknown Rx QUEtiapine [SEROquel] 100 mg PO DAILY #30 tablet 03/17/18 Unknown Rx Rivaroxaban [Xarelto] 20 mg PO QDAY #180 tab 03/17/18 Unknown Rx levETIRAcetam [Keppra] 500 mg PO DAILY #30 tablet 03/17/18 Unknown Rx methIMAzole [Tapazole] 10 mg PO Q8HR tablet 03/17/18 Unknown Rx Methocarbamol [Robaxin-750] 750 mg PO Q6HR PRN #20 tablet 03/31/18 Unknown Rx Ondansetron [Zofran Odt] 4 mg PO Q8HR PRN #20 tab.rapdis 06/22/18 Unknown Rx traMADol [Ultram 50 MG tab] 50 mg PO Q6HR PRN #15 tablet 06/22/18 Unknown Rx Ondansetron [Zofran Odt] 4 mg PO Q8HR #10 tab.rapdis 07/15/18 Unknown Rx traMADol [Ultram 50 MG tab] 50 mg PO Q6HR PRN #10 tablet 10/13/18 Unknown Rx Review of Systems Constitutional: chronic pain Ears, nose, mouth and throat: no ear pain, no ear discharge, no tinnitis, no decreased hearing, no nasal discharge, no sinus pain Breasts: no change in shape, no swelling, no mass Cardiovascular: shortness of breath, dyspnea on exertion, decreased exercise tolerance, no chest pain, no orthopnea, no palpitations, no phlebitis Respiratory: no cough, no cough with sputum, no excessive sputum, no hemoptysis Gastrointestinal: no abdominal pain, no nausea, no vomiting, no diarrhea, no constipation Genitourinary Female: no pelvic pain, no flank pain, no menorrhagia, no dysuria, no urinary frequency, no urgency Rectal: no pain, no incontinence, no bleeding Musculoskeletal: arm numbness/tingling, no neck stiffness, no neck pain, no shooting arm pain, no low back pain, no shooting leg pain Integumentary: no rash, no pruritis, no redness, no sores, no wounds Neurological: no transient paralysis, no paralysis, no weakness, no parathesias, no tingling, no seizures Psychiatric: no anxiety, no memory loss, no insomnia, no hypersomnia, no change in appetite, no change in libido, no disorientation, no hallucinations Endocrine: no cold intolerance, no heat intolerance, no polyphagia, no excessive thirst Hematologic/Lymphatic: no easy bruising, no lymphadenopathy, no lymphedema Allergic/Immunologic: no urticaria, no allergic rhinitis, no persistent infections, no anaphylaxis Exam - Constitutional Vitals: Temp Pulse Resp BP Pulse Ox 97.9 F 52 L 18 100/69 98 11/25/18 09:05 11/25/18 14:14 11/25/18 14:14 11/25/18 14:14 11/25/18 14:14 General appearance: Present: mild distress, obese - EENT Eyes: Present: PERRL ENT: hearing intact, clear oral mucosa - Neck Neck: Present: supple, normal ROM - Respiratory Respiratory effort: normal Respiratory: bilateral: diminished - Cardiovascular Heart Sounds: Present: S1 & S2. Absent: rub, click - Extremities Extremities: pulses symmetrical Extremity abnormal: edema Peripheral Pulses: within normal limits - Abdominal General gastrointestinal: Present: soft, non-tender, non-distended, normal bowel sounds Female genitourinary: Present: normal - Integumentary Integumentary: Present: clear, warm, dry - Musculoskeletal Musculoskeletal: gait normal, strength equal bilaterally - Psychiatric Psychiatric: appropriate mood/affect, intact judgment & insight - Neurologic Neurologic: CNII-XII intact, moves all extremities Results - Labs CBC & Chem 7: 11/25/18 10:13 11/25/18 10:13 Labs: Abnormal lab results 11/25/18 11/25/18 11/25/18 Range/Units 10:13 10:13 10:13 RDW 17.5 H (13.2-15.2) % Lymph % (Auto) 35.9 H (13.4-35.0) % APTT 23.7 L (24.2-36.6) Sec. D-Dimer 432.71 H (0-234) ng/mlDDU Carbon Dioxide 21 L (22-30) mmol/L Glucose 106 H (65-100) mg/dL Assessment and Plan - Patient Problems (1) CHF (congestive heart failure) Current Visit: Yes Status: Suspected Qualifiers: Heart failure type: systolic Heart failure chronicity: acute Qualified Code(s): I50.21 - Acute systolic (congestive) heart failure Plan to address problem: Admit to telemetry, cardiology consulted in ED, Strict I/O, daily weight, d dimer, bnp, supplemental oxygen, pulse oximetry, chest x ray, thyroid panel, magnesium level (2) Subtherapeutic international normalized ratio (INR) Current Visit: Yes Status: Acute Plan to address problem: REstart coumadin, Pharmacy consult, therapeutic lovenox (3) DVT (deep venous thrombosis) Current Visit: Yes Status: Acute Qualifiers: Laterality: unspecified laterality Plan to address problem: Therapeutic anticoagulation, supportive care. (4) Pulmonary embolism Current Visit: Yes Status: Acute Qualifiers: Chronicity: chronic Plan to address problem: Therapeutic anticoagulation, supportive care. (5) Nicotine dependence unspecified, with withdrawal Current Visit: Yes Status: Acute Qualifiers: Nicotine product type: cigarettes Qualified Code(s): F17.213 - Nicotine dependence, cigarettes, with withdrawal Plan to address problem: supportive care, smoking cessation counseling. (6) Seizure disorder Current Visit: Yes Status: Acute Plan to address problem: Seizure precautions, continue medical management. (7) History of DVT (deep vein thrombosis) Current Visit: No Status: Suspected Plan to address problem: therapeutic anticoagulation, (8) Obesity hypoventilation syndrome Current Visit: Yes Status: Acute Plan to address problem: Supplemental oxygen, NIPPV as clinically indicated, pulse oximetry, suupportive care, balanced diet, increased physical activity at discharge. (9) DVT prophylaxis Current Visit: Yes Status: Acute Plan to address problem: SCD to BLE while in bed, Therapeutic lovenox
[2018-11-25] MEDS ORDERED: ONDANSETRON 4 MG/2 ML INJ IV PRN (14:20)
[2018-11-25] MEDS ORDERED: ACETAMINOPHEN 325 MG TAB PO PRN (14:20)
[2018-11-25] MEDS ORDERED: ALBUTEROL 2.5 MG/3 ML NEBU IH PRN (14:20)
[2018-11-25] MEDS ORDERED: ONDANSETRON 4 MG ODT TAB PO PRN (14:32)
[2018-11-25] MEDS: ENOXAPARIN 100 MG/1 ML INJ SUB-Q SCH ×3 (16:15→21:48)
[2018-11-25] MEDS ORDERED: ENOXAPARIN 100 MG/1 ML INJ SUB-Q ONE (16:16)
[2018-11-25] MEDS: MORPHINE 2 MG/1 ML INJ IV PRN ×2 (18:11→22:22)
[2018-11-25] MEDS ORDERED: GABAPENTIN 900 MG PO SCH (20:00)
[2018-11-25] MEDS ORDERED: GABAPENTIN 300 MG CAP PO SCH ×2 (20:00→22:00)
[2018-11-25] MEDS: PROPRANOLOL 10 MG TAB PO SCH (21:47)
[2018-11-25] MEDS: ALPRAZolam 0.5 MG TAB PO SCH (21:49)
[2018-11-25] MEDS: FAMOTIDINE 10 MG TAB PO SCH (21:49)
[2018-11-25] MEDS: PANTOPRAZOLE 40 MG TAB PO SCH (21:49)
[2018-11-25] MEDS: methIMAzole 5 MG TAB PO SCH (21:50)
[2018-11-26] MEDS: MORPHINE 2 MG/1 ML INJ IV PRN ×5 (03:52→22:49)
[2018-11-26] MEDS ORDERED: HEPARIN 10,000 UNITS/10 ML VIAL IV ONE ×2 (05:07→20:33)
--- NOTE | 2018-11-26 05:22 | Event Note ---
Date: 11/26/18 PATIENT SAID THAT SHE WAS ON COUMADIN CURRENTLY AND NOT ON XARELTO . SHE ALSO SAID THAT SHE IS ALLERGIC TO LOVENOX , PLAN ; WILL START PATIENT ON I.V HEPARIN BOLUS AND DRIP AND RESTART COUMADIN WHEN THE HEPARIN DRIP IS STARTED AND MAINTAIN INR AT 2-3 FOR HISTORY OF DVT/PE. WE WILL HOLD XARELTO , PLAVIX AND GET INR TO THE THERAPEUTIC LEVEL.
[2018-11-26] MEDS: HEPARIN/ 0.45% NACL DRIP 25,000 UNIT/500 ML BAG IV SCH (05:40)
[2018-11-26] MEDS: methIMAzole 5 MG TAB PO SCH ×3 (06:35→22:31)
[2018-11-26] MEDS: traMADol 50 MG TAB PO PRN ×2 (06:40→20:53)
[2018-11-26 07:26] LABS: Basophils # (Auto) 0.1 K/mm3 (0.0-0.1); Basophils % (Auto) 1.3 % (0.0-1.8); Eosinophils # (Auto) 0.2 K/mm3 (0.0-0.4); Eosinophils % (Auto) 2.6 % (0.0-4.3); Hematocrit 43.5 % (30.3-42.9); Hemoglobin 14.3 gm/dl (10.1-14.3); Lymphocytes # (Auto) 3.1 K/mm3 (1.2-5.4); Lymphocytes % (Auto) 38.7 % (13.4-35.0); Mean Corpuscular HGB Conc 33 % (30-34); Mean Corpuscular Volume 88 fl (79-97); Monocytes # (Auto) 0.5 K/mm3 (0.0-0.8); Monocytes % (Auto) 6.2 % (0.0-7.3); Platelet Count 238 K/mm3 (140-440); Red Blood Count 4.92 M/mm3 (3.65-5.03); Red Cell Distribution Width 17.2 % (13.2-15.2)
[2018-11-26 07:36] LABS: INR 1.03 (0.87-1.13)
[2018-11-26 07:43] LABS: Partial Thromboplastin Time 148.7 Sec. (24.2-36.6)
[2018-11-26 07:48] LABS: Alanine Aminotransferase 13 units/L (7-56); Albumin 4.1 g/dL (3.9-5); BUN/Creatinine Ratio 15; Blood Urea Nitrogen 15 mg/dL (7-17); Calcium 8.5 mg/dL (8.4-10.2); Hemolysis Index 37
[2018-11-26] MEDS ORDERED: CLOPIDOGREL 75 MG TAB PO SCH (10:00)
[2018-11-26] MEDS ORDERED: RIVAROXABAN 20 MG TAB PO SCH (10:00)
[2018-11-26] MEDS ORDERED: PREGABALIN 75 MG CAP PO SCH ×2 (10:00)
[2018-11-26] MEDS: FAMOTIDINE 10 MG TAB PO SCH (12:21)
[2018-11-26] MEDS: PREGABALIN 75 MG CAP PO SCH (12:22)
[2018-11-26] MEDS: PREGABALIN 25 MG CAP PO SCH (12:22)
[2018-11-26] MEDS: PROPRANOLOL 10 MG TAB PO SCH ×2 (12:22→22:34)
[2018-11-26] MEDS: PANTOPRAZOLE 40 MG TAB PO SCH ×2 (12:22→22:39)
[2018-11-26] MEDS: levETIRAcetam 500 MG TAB PO SCH (12:22)
[2018-11-26] MEDS: QUEtiapine 200 MG TAB PO SCH (12:23)
[2018-11-26] MEDS: ALPRAZolam 0.5 MG TAB PO SCH ×2 (12:23→22:31)
--- NOTE | 2018-11-26 16:50 | Consultation ---
History of Present Illness Consult date: 11/26/18 Consult reason: other (cardiac evaluation) History of present illness: The patient's a 38-year-old woman with multiple medical problems. 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 She also had a transcutaneous implantation of a graft to the descending aorta for aortic dissection. She was recommended for chronic anticoagulation therapy, but has been reported in the chart to be chronically noncompliant. On this presentation, she reports that she takes warfarin for anticoagulation, but INR was subtherapeutic at 0.96. Most recent cardiac assessment was 8 months ago, an echocardiogram reported moderate severity cardiomyopathy with ejection fraction 35-40%. A thallium stress test prior to that in May 2017 was negative. The patient presents to the hospital at this time with mostly constitutional complaints of generalized body aches, nausea and vomiting, weakness and lightheadedness. There was no chest pain, no unusual shortness of breath, no edema, no palpitations. Cardiology consultation was requested to see this patient for "CHF", but there is no clinical or radiologic evidence of fluid overload or heart failure. Chest x-ray shows clear lungs. Past History Past Medical History: DVT, GERD, hypertension, pulmonary embolism, seizures, other (Graves Disease) Past Surgical History: Other (Left ARm, Right Knee, TEVAR) Social history: single, smoking Family history: hypertension Medications and Allergies Allergies Allergy/AdvReac Type Severity Reaction Status Date / Time acetaminophen [From Percocet] Allergy Itching Verified 07/15/18 09:11 garlic Allergy Unknown Verified 07/15/18 09:11 ibuprofen [From Motrin] Allergy Unknown Verified 07/15/18 09:11 oxycodone [From Percocet] Allergy Itching Verified 07/15/18 09:11 peanut oil Allergy Unknown Verified 07/15/18 09:11 Penicillins Allergy Unknown Verified 07/15/18 09:11 Home Medications Medication Instructions Recorded Confirmed Last Taken Type Pregabalin 100 mg PO QAM #30 capsule 05/26/17 03/16/18 1 Day Ago Rx ~03/15/18 ALPRAZolam [Xanax TAB] 0.5 mg PO BID #20 tablet 03/17/18 Unknown Rx Clopidogrel Bisulfate [Plavix] 75 mg PO DAILY #180 tablet 03/17/18 Unknown Rx Gabapentin [Neurontin] 900 mg PO TID #90 tablet 03/17/18 Unknown Rx Pantoprazole [Protonix TAB] 40 mg PO BID #60 tablet 03/17/18 Unknown Rx Pregabalin 75 mg PO DAILY #30 capsule 03/17/18 Unknown Rx Propranolol [Inderal] 20 mg PO BID #60 tablet 03/17/18 Unknown Rx QUEtiapine [SEROquel] 100 mg PO DAILY #30 tablet 03/17/18 Unknown Rx Rivaroxaban [Xarelto] 20 mg PO QDAY #180 tab 03/17/18 Unknown Rx levETIRAcetam [Keppra] 500 mg PO DAILY #30 tablet 03/17/18 Unknown Rx methIMAzole [Tapazole] 10 mg PO Q8HR tablet 03/17/18 Unknown Rx Methocarbamol [Robaxin-750] 750 mg PO Q6HR PRN #20 tablet 03/31/18 Unknown Rx Ondansetron [Zofran Odt] 4 mg PO Q8HR PRN #20 tab.rapdis 06/22/18 Unknown Rx traMADol [Ultram 50 MG tab] 50 mg PO Q6HR PRN #15 tablet 06/22/18 Unknown Rx Ondansetron [Zofran Odt] 4 mg PO Q8HR #10 tab.rapdis 07/15/18 Unknown Rx traMADol [Ultram 50 MG tab] 50 mg PO Q6HR PRN #10 tablet 10/13/18 Unknown Rx Active Meds: Active Medications Acetaminophen (Tylenol) 650 mg PO Q4H PRN PRN Reason: Pain MILD(1-3)/Fever >100.5/OSEGUERA Albuterol (Proventil) 2.5 mg IH Q4HRT PRN PRN Reason: Shortness Of Breath Alprazolam (Xanax) 0.5 mg PO BID [facility] Last Admin: 11/26/18 12:23 Dose: 0.5 mg Documented by: Heparin Sodium/Sodium Chloride (Heparin/ 0.45% Nacl-25,000 Unit/500 Ml) 25,000 unit in 500 mls @ 29 mls/hr IV TITR [facility]; Protocol Last Admin: 11/26/18 05:40 Dose: 1,450 units/hr, 29 mls/hr Documented by: Levetiracetam (Keppra) 500 mg PO DAILY [facility] Last Admin: 11/26/18 12:22 Dose: 500 mg Documented by: Methimazole (Tapazole) 10 mg PO Q8HR [facility] Last Admin: 11/26/18 14:58 Dose: 10 mg Documented by: Methocarbamol (Robaxin) 750 mg PO Q6H PRN PRN Reason: Spasms Morphine Sulfate (Morphine) 2 mg IV Q4H PRN PRN Reason: Pain, Moderate (4-6) Last Admin: 11/26/18 12:28 Dose: 2 mg Documented by: Ondansetron HCl (Zofran) 4 mg IV Q8H PRN PRN Reason: Nausea And Vomiting Ondansetron HCl (Zofran Odt) 4 mg PO Q8H PRN PRN Reason: Nausea And Vomiting Pantoprazole Sodium (Protonix) 40 mg PO BID [facility] Last Admin: 11/26/18 12:22 Dose: 40 mg Documented by: Pregabalin (Pregabalin) 25 mg PO DAILY [facility] Last Admin: 11/26/18 12:22 Dose: 25 mg Documented by: Pregabalin (Pregabalin) 75 mg PO DAILY [facility] Last Admin: 11/26/18 12:22 Dose: 75 mg Documented by: Propranolol HCl (Inderal) 20 mg PO BID [facility] Last Admin: 11/26/18 12:22 Dose: 20 mg Documented by: Quetiapine Fumarate (Seroquel) 100 mg PO DAILY [facility] Last Admin: 11/26/18 12:23 Dose: 100 mg Documented by: Sodium Chloride (Sodium Chloride Flush Syringe 10 Ml) 10 ml IV BID [facility] Last Admin: 11/26/18 12:24 Dose: 10 ml Documented by: Sodium Chloride (Sodium Chloride Flush Syringe 10 Ml) 10 ml IV PRN PRN PRN Reason: LINE FLUSH Tramadol HCl (Ultram) 50 mg PO Q6H PRN PRN Reason: PAIN Last Admin: 11/26/18 06:40 Dose: 50 mg Documented by: Review of Systems Cardiovascular: no chest pain, no orthopnea, no palpitations, no rapid/irregular heart beat, no edema, no syncope, no lightheadedness, no shortness of breath Physical Examination Vital Signs Temp Pulse Resp BP Pulse Ox 97.9 F 62 16 130/70 100 11/25/18 09:05 11/25/18 09:05 11/25/18 09:05 11/25/18 09:05 11/25/18 09:05 General appearance: no acute distress HEENT: Positive: PERRL Neck: Positive: neck supple Cardiac: Positive: Reg Rate and Rhythm Lungs: Positive: Decreased Breath Sounds Neuro: Positive: Grossly Intact Abdomen: Positive: Soft Female genitourinary: deferred Skin: Positive: Clear Extremities: Absent: edema Results 11/26/18 06:49 11/26/18 06:49 Cardiac Enzymes 11/26/18 Range/Units 06:49 AST 12 (5-40) units/L Coagulation 11/26/18 11/26/18 Range/Units 06:49 08:48 PT 13.2 (12.2-14.9) Sec. INR 1.03 (0.87-1.13) APTT 148.7 H* 102.3 H* (24.2-36.6) Sec. CBC 11/26/18 Range/Units 06:49 WBC 8.0 (4.5-11.0) K/mm3 RBC 4.92 (3.65-5.03) M/mm3 Hgb 14.3 (10.1-14.3) gm/dl Hct 43.5 H (30.3-42.9) % Plt Count 238 (140-440) K/mm3 Lymph # 3.1 (1.2-5.4) K/mm3 [place] # 0.5 (0.0-0.8) K/mm3 Eos # 0.2 (0.0-0.4) K/mm3 Baso # 0.1 (0.0-0.1) K/mm3 Comprehensive Metabolic Panel 11/26/18 Range/Units 06:49 Sodium 140 (137-145) mmol/L Potassium 4.8 (3.6-5.0) mmol/L Chloride 105.2 (98-107) mmol/L Carbon Dioxide 26 (22-30) mmol/L BUN 15 (7-17) mg/dL Creatinine 1.0 (0.7-1.2) mg/dL Glucose 107 H (65-100) mg/dL Calcium 8.5 (8.4-10.2) mg/dL AST 12 (5-40) units/L ALT 13 (7-56) units/L Alkaline Phosphatase 64 (35-129) units/L Total Protein 7.7 (6.3-8.2) g/dL Albumin 4.1 (3.9-5) g/dL EKG interpretations - Telemetry EKG Rhythm: Sinus Rhythm Assessment and Plan - Patient Problems (1) Cardiomyopathy Current Visit: Yes Status: Acute Plan to address problem: Patient has a history of moderate severity nonischemic cardiomyopathy, no clinical or radiologic evidence of heart failure or fluid overload at the current time. No further cardiac workup is indicated. Continue guideline directed medical therapy including afterload agents and beta blockers. 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 No further workup is indicated.
--- NOTE | 2018-11-26 18:06 | Progress Note ---
Assessment and Plan Assessment and plan: --History of DVT and PE status post EKOS; Chronic anticoagulation. 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 Cardiology following --Nonischemic cardiomyopathy; ejection fraction 35-40% Continue current cardiac medications --Chronic systolic congestive heart failure, EF 35-40% Well compensated --History of seizures; seizure precautions Antiepileptic medications, no driving --Hyperthyroidism; methimazole --History of schizophrenia/bipolar disorder Continue current psych medications Psych evaluation --Medical noncompliance; counseling, strongly advised to comply Medications, diet follow-up visits Patient verbalized understanding --Obesity; BMI 39.0 --Tobacco use; smoking cessation counseling advised nicotine patch --DVT Prophylaxis; on heparin drip monitor closely and adjust the management as needed Plan of care is reviewed for the patient and her nurse History Interval history: Sincerely and exam and medical records reviewed Patient feels slightly better Has history of hypercoagulable state and recurrent DVTs On long-term Coumadin Patient denies any chest pain or shortness of breath Vital signs reviewed Hospitalist Physical - Constitutional Vitals: Temp Pulse Resp BP Pulse Ox 97.5 F L 64 18 104/55 100 11/26/18 15:43 11/26/18 15:43 11/26/18 15:43 11/26/18 15:43 11/26/18 15:43 General appearance: Present: no acute distress, well-nourished - EENT Eyes: Present: PERRL, EOM intact - Neck Neck: Present: supple, normal ROM - Respiratory Respiratory effort: normal Respiratory: bilateral: diminished, negative: rales, rhonchi, wheezing - Cardiovascular Rhythm: regular Heart Sounds: Present: S1 & S2 - Extremities Extremities: no ischemia, No edema - Abdominal General gastrointestinal: soft, non-tender, non-distended, normal bowel sounds - Integumentary Integumentary: Present: clear, warm - Psychiatric Psychiatric: appropriate mood/affect, cooperative - Neurologic Neurologic: CNII-XII intact, moves all extremities Results - Labs CBC & Chem 7: 11/28/18 Unknown 11/26/18 06:49 Labs: Laboratory Last Values WBC 8.0 K/mm3 (4.5-11.0) 11/26/18 06:49 RBC 4.92 M/mm3 (3.65-5.03) 11/26/18 06:49 Hgb 14.3 gm/dl (10.1-14.3) 11/26/18 06:49 Hct 43.5 % (30.3-42.9) H 11/26/18 06:49 MCV 88 fl (79-97) 11/26/18 06:49 MCH 29 pg (28-32) 11/26/18 06:49 MCHC 33 % (30-34) 11/26/18 06:49 RDW 17.2 % (13.2-15.2) H 11/26/18 06:49 Plt Count 238 K/mm3 (140-440) 11/26/18 06:49 Lymph % (Auto) 38.7 % (13.4-35.0) H 11/26/18 06:49 [place] % (Auto) 6.2 % (0.0-7.3) 11/26/18 06:49 Eos % (Auto) 2.6 % (0.0-4.3) 11/26/18 06:49 Baso % (Auto) 1.3 % (0.0-1.8) 11/26/18 06:49 Lymph # 3.1 K/mm3 (1.2-5.4) 11/26/18 06:49 [place] # 0.5 K/mm3 (0.0-0.8) 11/26/18 06:49 Eos # 0.2 K/mm3 (0.0-0.4) 11/26/18 06:49 Baso # 0.1 K/mm3 (0.0-0.1) 11/26/18 06:49 Seg Neutrophils % 51.2 % (40.0-70.0) 11/26/18 06:49 Seg Neutrophils # 4.1 K/mm3 (1.8-7.7) 11/26/18 06:49 PT 13.2 Sec. (12.2-14.9) 11/26/18 06:49 INR 1.03 (0.87-1.13) 11/26/18 06:49 APTT 102.3 Sec. (24.2-36.6) H* 11/26/18 08:48 D-Dimer 432.71 ng/mlDDU (0-234) H 11/25/18 10:13 Heparin Anti-Xa Level 0.91 U.I./ml (0.3-0.7) H 11/26/18 11:35 Sodium 140 mmol/L (137-145) 11/26/18 06:49 Potassium 4.8 mmol/L (3.6-5.0) 11/26/18 06:49 Chloride 105.2 mmol/L (98-107) 11/26/18 06:49 Carbon Dioxide 26 mmol/L (22-30) 11/26/18 06:49 Anion Gap 14 mmol/L 11/26/18 06:49 BUN 15 mg/dL (7-17) 11/26/18 06:49 Creatinine 1.0 mg/dL (0.7-1.2) 11/26/18 06:49 Estimated GFR > 60 ml/min 11/26/18 06:49 BUN/Creatinine Ratio 15 % 11/26/18 06:49 Glucose 107 mg/dL (65-100) H 11/26/18 06:49 Calcium 8.5 mg/dL (8.4-10.2) 11/26/18 06:49 Magnesium 2.10 mg/dL (1.7-2.3) 11/25/18 10:13 Total Bilirubin < 0.20 mg/dL (0.1-1.2) 11/26/18 06:49 AST 12 units/L (5-40) 11/26/18 06:49 ALT 13 units/L (7-56) 11/26/18 06:49 Alkaline Phosphatase 64 units/L (35-129) 11/26/18 06:49 Troponin T < 0.010 ng/mL (0.00-0.029) 11/25/18 15:42 NT-Pro-B Natriuret Pep 40.77 pg/mL (0-450) 11/25/18 11:21 Total Protein 7.7 g/dL (6.3-8.2) 11/26/18 06:49 Albumin 4.1 g/dL (3.9-5) 11/26/18 06:49 Albumin/Globulin Ratio 1.1 % 11/26/18 06:49 TSH 0.312 mlU/mL (0.270-4.200) 11/25/18 10:13 Free T4 0.93 ng/dL (0.76-1.46) 11/25/18 10:13 Active Medications - Current Medications Current Medications: Generic Name Dose Route Start Last Admin Trade Name Freq PRN Reason Stop Dose Admin Acetaminophen 650 mg 11/25/18 14:20 Tylenol PO Q4H PRN Pain MILD(1-3)/Fever >100.5/OSEGUERA Albuterol 2.5 mg 11/25/18 14:20 Proventil IH Q4HRT PRN Shortness Of Breath Alprazolam 0.5 mg 11/25/18 22:00 11/26/18 12:23 Xanax PO 0.5 mg BID ELLIOTT Administration Heparin Sodium/Sodium Chloride 25,000 unit in 500 mls @ 29 mls/hr 11/26/18 06:00 11/26/18 17:12 Heparin/ 0.45% Nacl-25,000 Unit/500 Ml IV 1,250 units/hr TITR ELLIOTT 25 mls/hr Titration Protocol 1,450 UNITS/HR Levetiracetam 500 mg 11/26/18 10:00 11/26/18 12:22 Keppra PO 500 mg DAILY ELLIOTT Administration Methimazole 10 mg 11/25/18 22:00 11/26/18 14:58 Tapazole PO 10 mg Q8HR ELLIOTT Administration Methocarbamol 750 mg 11/25/18 14:32 Robaxin PO Q6H PRN Spasms Morphine Sulfate 2 mg 11/25/18 14:20 11/26/18 17:43 Morphine IV 2 mg Q4H PRN Administration Pain, Moderate (4-6) Ondansetron HCl 4 mg 11/25/18 14:20 Zofran IV Q8H PRN Nausea And Vomiting Ondansetron HCl 4 mg 11/25/18 14:32 Zofran Odt PO Q8H PRN Nausea And Vomiting Pantoprazole Sodium 40 mg 11/25/18 22:00 11/26/18 12:22 Protonix PO 40 mg BID ELLIOTT Administration Pregabalin 25 mg 11/26/18 10:00 11/26/18 12:22 Pregabalin PO 25 mg DAILY ELLIOTT Administration Pregabalin 75 mg 11/26/18 10:00 11/26/18 12:22 Pregabalin PO 75 mg DAILY ELLIOTT Administration Propranolol HCl 20 mg 11/25/18 22:00 11/26/18 12:22 Inderal PO 20 mg BID ELLIOTT Administration Quetiapine Fumarate 100 mg 11/26/18 10:00 11/26/18 12:23 Seroquel PO 100 mg DAILY ELLIOTT Administration Sodium Chloride 10 ml 11/25/18 22:00 11/26/18 12:24 Sodium Chloride Flush Syringe 10 Ml IV 10 ml BID ELLIOTT Administration Sodium Chloride 10 ml 11/25/18 14:20 Sodium Chloride Flush Syringe 10 Ml IV PRN PRN LINE FLUSH Tramadol HCl 50 mg 11/25/18 14:32 11/26/18 06:40 Ultram PO 50 mg Q6H PRN Administration PAIN
[2018-11-27] MEDS: MORPHINE 2 MG/1 ML INJ IV PRN ×4 (03:30→17:57)
[2018-11-27 05:08] LABS: INR 3.26 (0.87-1.13)
[2018-11-27] MEDS ORDERED: HEPARIN 10,000 UNITS/10 ML VIAL IV ONE (05:26)
[2018-11-27] MEDS: HEPARIN/ 0.45% NACL DRIP 25,000 UNIT/500 ML BAG IV SCH ×3 (05:56→21:07)
[2018-11-27] MEDS: methIMAzole 5 MG TAB PO SCH ×3 (05:57→21:06)
[2018-11-27] MEDS: traMADol 50 MG TAB PO PRN ×3 (05:58→21:05)
[2018-11-27] MEDS: ALPRAZolam 0.5 MG TAB PO SCH ×2 (09:26→21:05)
[2018-11-27] MEDS: PREGABALIN 75 MG CAP PO SCH (09:27)
[2018-11-27] MEDS: PROPRANOLOL 10 MG TAB PO SCH ×2 (09:27→21:06)
[2018-11-27] MEDS: PANTOPRAZOLE 40 MG TAB PO SCH ×2 (09:27→21:04)
[2018-11-27] MEDS: PREGABALIN 25 MG CAP PO SCH (09:27)
[2018-11-27] MEDS: levETIRAcetam 500 MG TAB PO SCH (09:27)
[2018-11-27] MEDS: QUEtiapine 200 MG TAB PO SCH (09:30)
--- NOTE | 2018-11-27 10:49 | Progress Note ---
Assessment and Plan N/V -chief complaint History of Nonischemic Cardiomyopathy, EF 35-40% History of Lupus History of DVT and PE s/p eKOS INR subtherapeutic on admission s/p TEVAR of the descending thoracic aorta for a history of aortic dissection History of seizures History of hyperthyroidism History of profound non-compliance Recommendations: Sodium/fluid restriction Medical management for nonischemic cardiomyopathy. Subjective Date of service: 11/27/18 Interval history: Patient is sitting up in bed. No cardiac complaints. Objective Vital Signs Temp Pulse Resp BP Pulse Ox 11/27/18 09:27 80 120/75 11/27/18 05:58 20 11/27/18 03:56 98.4 F 81 20 124/76 93 11/27/18 03:30 20 11/27/18 00:01 98.5 F 71 20 128/75 92 11/27/18 00:00 78 11/26/18 22:34 92 H 117/75 11/26/18 19:47 98.8 F 78 20 117/75 97 11/26/18 15:43 97.5 F L 64 18 104/55 100 11/26/18 12:27 98.0 F 58 L 18 167/73 99 11/26/18 12:22 72 124/75 - Physical Examination General: No Apparent Distress HEENT: Positive: PERRL Neck: Positive: neck supple Cardiac: Positive: Reg Rate and Rhythm Lungs: Positive: Normal Breath Sounds Neuro: Positive: Grossly Intact Abdomen: Positive: Soft Extremities: Absent: edema - Labs and Meds Coagulation 11/27/18 11/27/18 Range/Units 04:03 07:54 PT 32.7 H 12.9 (12.2-14.9) Sec. INR 3.26 H 1.00 (0.87-1.13)
[2018-11-27] MEDS ORDERED: WARFARIN 7.5 MG TAB PO SCH (17:00)
--- NOTE | 2018-11-27 17:03 | Progress Note ---
Assessment and Plan Assessment and plan: --History of DVT and PE status post EKOS; Chronic anticoagulation. Subtherapeutic INR Continue heparin, start Coumadin tonight Closely monitor INR target INR between 2 and 3 --Nonischemic cardiomyopathy; ejection fraction 35-40% Continue current cardiac medications --History of seizures; seizure precautions Antiepileptic medications, no driving --Hyperthyroidism; methimazole --History of schizophrenia/bipolar disorder Continue current psych medications Psych evaluation --Obesity; BMI 39.0 --Tobacco use; smoking cessation counseling advised nicotine patch --DVT Prophylaxis; on heparin drip monitor closely and adjust the management as needed Plan of care is reviewed for the patient and her nurse History Interval history: Patient was seen and examined this morning medical records reviewed The patient is on heparin drip, as her INR is subtherapeutic And patient is allergic to Lovenox.Patient denies any chest pain or shortness of breath Patient is verbal and confrontational with the nurse,with me and the other staff. Patient has a poor understanding of heparin drip and Coumadin administration and target INR levels. Vital signs reviewed Hospitalist Physical - Constitutional Vitals: Temp Pulse Resp BP Pulse Ox 98.4 F 80 20 120/75 93 11/27/18 03:56 11/27/18 09:27 11/27/18 05:58 11/27/18 09:27 11/27/18 03:56 General appearance: Present: no acute distress, well-nourished - EENT Eyes: Present: PERRL, EOM intact - Neck Neck: Present: supple, normal ROM - Respiratory Respiratory effort: normal Respiratory: bilateral: diminished, negative: rales, rhonchi, wheezing - Cardiovascular Rhythm: regular Heart Sounds: Present: S1 & S2 - Extremities Extremities: no ischemia, No edema - Abdominal General gastrointestinal: soft, non-tender, non-distended, normal bowel sounds - Integumentary Integumentary: Present: clear, warm - Psychiatric Psychiatric: appropriate mood/affect, cooperative - Neurologic Neurologic: CNII-XII intact, moves all extremities Results - Labs CBC & Chem 7: 11/26/18 06:49 11/26/18 06:49 Labs: Laboratory Last Values WBC 8.0 K/mm3 (4.5-11.0) 11/26/18 06:49 RBC 4.92 M/mm3 (3.65-5.03) 11/26/18 06:49 Hgb 14.3 gm/dl (10.1-14.3) 11/26/18 06:49 Hct 43.5 % (30.3-42.9) H 11/26/18 06:49 MCV 88 fl (79-97) 11/26/18 06:49 MCH 29 pg (28-32) 11/26/18 06:49 MCHC 33 % (30-34) 11/26/18 06:49 RDW 17.2 % (13.2-15.2) H 11/26/18 06:49 Plt Count 238 K/mm3 (140-440) 11/26/18 06:49 Lymph % (Auto) 38.7 % (13.4-35.0) H 11/26/18 06:49 [place] % (Auto) 6.2 % (0.0-7.3) 11/26/18 06:49 Eos % (Auto) 2.6 % (0.0-4.3) 11/26/18 06:49 Baso % (Auto) 1.3 % (0.0-1.8) 11/26/18 06:49 Lymph # 3.1 K/mm3 (1.2-5.4) 11/26/18 06:49 [place] # 0.5 K/mm3 (0.0-0.8) 11/26/18 06:49 Eos # 0.2 K/mm3 (0.0-0.4) 11/26/18 06:49 Baso # 0.1 K/mm3 (0.0-0.1) 11/26/18 06:49 Seg Neutrophils % 51.2 % (40.0-70.0) 11/26/18 06:49 Seg Neutrophils # 4.1 K/mm3 (1.8-7.7) 11/26/18 06:49 PT 12.9 Sec. (12.2-14.9) 11/27/18 07:54 INR 1.00 (0.87-1.13) 11/27/18 07:54 APTT 102.3 Sec. (24.2-36.6) H* 11/26/18 08:48 D-Dimer 432.71 ng/mlDDU (0-234) H 11/25/18 10:13 Heparin Anti-Xa Level 1.21 U.I./ml (0.3-0.7) H 11/27/18 07:54 Sodium 140 mmol/L (137-145) 11/26/18 06:49 Potassium 4.8 mmol/L (3.6-5.0) 11/26/18 06:49 Chloride 105.2 mmol/L (98-107) 11/26/18 06:49 Carbon Dioxide 26 mmol/L (22-30) 11/26/18 06:49 Anion Gap 14 mmol/L 11/26/18 06:49 BUN 15 mg/dL (7-17) 11/26/18 06:49 Creatinine 1.0 mg/dL (0.7-1.2) 11/26/18 06:49 Estimated GFR > 60 ml/min 11/26/18 06:49 BUN/Creatinine Ratio 15 % 11/26/18 06:49 Glucose 107 mg/dL (65-100) H 11/26/18 06:49 Calcium 8.5 mg/dL (8.4-10.2) 11/26/18 06:49 Magnesium 2.10 mg/dL (1.7-2.3) 11/25/18 10:13 Total Bilirubin < 0.20 mg/dL (0.1-1.2) 11/26/18 06:49 AST 12 units/L (5-40) 11/26/18 06:49 ALT 13 units/L (7-56) 11/26/18 06:49 Alkaline Phosphatase 64 units/L (35-129) 11/26/18 06:49 Troponin T < 0.010 ng/mL (0.00-0.029) 11/25/18 15:42 NT-Pro-B Natriuret Pep 40.77 pg/mL (0-450) 11/25/18 11:21 Total Protein 7.7 g/dL (6.3-8.2) 11/26/18 06:49 Albumin 4.1 g/dL (3.9-5) 11/26/18 06:49 Albumin/Globulin Ratio 1.1 % 11/26/18 06:49 TSH 0.312 mlU/mL (0.270-4.200) 11/25/18 10:13 Free T4 0.93 ng/dL (0.76-1.46) 11/25/18 10:13 Active Medications - Current Medications Current Medications: Generic Name Dose Route Start Last Admin Trade Name Freq PRN Reason Stop Dose Admin Acetaminophen 650 mg 11/25/18 14:20 Tylenol PO Q4H PRN Pain MILD(1-3)/Fever >100.5/OSEGUERA Albuterol 2.5 mg 11/25/18 14:20 Proventil IH Q4HRT PRN Shortness Of Breath Alprazolam 0.5 mg 11/25/18 22:00 11/27/18 09:26 Xanax PO 0.5 mg BID ELLIOTT Administration Carvedilol 3.125 mg 11/27/18 22:00 Coreg PO BID ELLIOTT Heparin Sodium/Sodium Chloride 25,000 unit in 500 mls @ 29 mls/hr 11/26/18 06:00 11/27/18 14:40 Heparin/ 0.45% Nacl-25,000 Unit/500 Ml IV 1,800 units/hr TITR ELLIOTT 36 mls/hr Administration Protocol 1,450 UNITS/HR Levetiracetam 500 mg 11/26/18 10:00 11/27/18 09:27 Keppra PO 500 mg DAILY ELLIOTT Administration Lisinopril 5 mg 11/28/18 10:00 Zestril PO QDAY ELLIOTT Methimazole 10 mg 11/25/18 22:00 11/27/18 14:34 Tapazole PO 10 mg Q8HR ELLIOTT Administration Methocarbamol 750 mg 11/25/18 14:32 11/27/18 08:11 Robaxin PO 750 mg Q6H PRN Administration Spasms Morphine Sulfate 2 mg 11/25/18 14:20 11/27/18 12:31 Morphine IV 2 mg Q4H PRN Administration Pain, Moderate (4-6) Ondansetron HCl 4 mg 11/25/18 14:20 Zofran IV Q8H PRN Nausea And Vomiting Ondansetron HCl 4 mg 11/25/18 14:32 Zofran Odt PO Q8H PRN Nausea And Vomiting Pantoprazole Sodium 40 mg 11/25/18 22:00 11/27/18 09:27 Protonix PO 40 mg BID ELLIOTT Administration Pregabalin 25 mg 11/26/18 10:00 11/27/18 09:27 Pregabalin PO 25 mg DAILY ELLIOTT Administration Pregabalin 75 mg 11/26/18 10:00 11/27/18 09:27 Pregabalin PO 75 mg DAILY ELLIOTT Administration Propranolol HCl 20 mg 11/25/18 22:00 11/27/18 09:27 Inderal PO 20 mg BID ELLIOTT Administration Quetiapine Fumarate 100 mg 11/28/18 10:00 Seroquel PO DAILY ELLIOTT Sodium Chloride 10 ml 11/25/18 22:00 11/27/18 14:38 Sodium Chloride Flush Syringe 10 Ml IV 10 ml BID ELLIOTT Administration Sodium Chloride 10 ml 11/25/18 14:20 Sodium Chloride Flush Syringe 10 Ml IV PRN PRN LINE FLUSH Tramadol HCl 50 mg 11/25/18 14:32 11/27/18 14:34 Ultram PO 50 mg Q6H PRN Administration PAIN Warfarin Sodium 7.5 mg 11/27/18 17:00 Coumadin PO DAILY@[facility] Protocol
[2018-11-27] MEDS: carvediloL 3.125 MG TAB PO SCH (21:05)
[2018-11-28] MEDS: MORPHINE 2 MG/1 ML INJ IV PRN ×4 (00:22→18:58)
[2018-11-28] MEDS: traMADol 50 MG TAB PO PRN ×3 (05:14→22:03)
[2018-11-28] MEDS: methIMAzole 5 MG TAB PO SCH ×3 (05:15→22:01)
--- NOTE | 2018-11-28 09:00 | Progress Note ---
<SERA DIAS - Last Filed: 11/28/18 10:21> Assessment and Plan N/V -chief complaint History of Nonischemic Cardiomyopathy, EF 35-40% no ischemia by MPI 05/2017 History of Lupus History of DVT and PE s/p eKOS INR subtherapeutic on admission s/p TEVAR of the descending thoracic aorta for a history of aortic dissection History of seizures History of hyperthyroidism History of profound non-compliance Recommendations: Sodium/fluid restriction. Continue medical management for nonischemic cardiomyopathy as tolerated. Subjective Date of service: 11/28/18 Interval history: No cardiac complaints. Objective Vital Signs Temp Pulse Resp BP Pulse Ox 11/28/18 07:24 97.7 F 18 143/72 11/28/18 06:40 20 11/28/18 05:14 20 11/28/18 04:25 67 123/75 95 11/28/18 00:22 20 11/28/18 00:09 98.3 F 71 24 126/72 92 11/28/18 00:00 76 11/27/18 21:06 80 116/68 11/27/18 21:05 80 116/68 11/27/18 19:15 98.2 F 87 16 116/68 94 11/27/18 17:10 98.0 F 18 120/61 11/27/18 11:52 98.2 F 60 18 94/52 86 11/27/18 09:27 80 120/75 11/27/18 09:24 120/75 - Physical Examination General: No Apparent Distress HEENT: Positive: PERRL Neck: Positive: neck supple Cardiac: Positive: Reg Rate and Rhythm Lungs: Positive: Normal Breath Sounds Neuro: Positive: Grossly Intact Abdomen: Positive: Soft Extremities: Absent: edema <ASHLEE BETHEA - Last Filed: 11/28/18 21:02> Assessment and Plan I have seen and evaluated the patient and agree with the assessment and plan. Objective Vital Signs Temp Pulse Pulse Resp BP Pulse Ox 11/28/18 17:13 98.0 F 46 L 18 117/61 85 11/28/18 11:55 97.9 F 82 18 127/69 86 11/28/18 10:17 72 143/72 11/28/18 10:15 72 143/72 11/28/18 10:14 72 143/72 11/28/18 08:00 60 60 18 10/09/19 07:24 97.7 F 18 143/72 11/28/18 06:40 20 11/28/18 05:14 20 11/28/18 04:25 67 123/75 95 11/28/18 00:22 20 11/28/18 00:09 98.3 F 71 24 126/72 92 11/28/18 00:00 76 11/27/18 21:06 80 116/68 11/27/18 21:05 80 116/68 - Labs and Meds Coagulation 11/28/18 Range/Units Unknown PT 12.8 (12.2-14.9) Sec. INR 0.99 (0.87-1.13) CBC 11/28/18 Range/Units Unknown Hgb 13.3 (10.1-14.3) gm/dl Hct 40.4 (30.3-42.9) % Plt Count 246 (140-440) K/mm3
[2018-11-28] MEDS: ALPRAZolam 0.5 MG TAB PO SCH ×2 (10:14→22:04)
[2018-11-28] MEDS: LISINOPRIL 5 MG TAB PO SCH (10:14)
[2018-11-28] MEDS: carvediloL 3.125 MG TAB PO SCH ×2 (10:15→22:02)
[2018-11-28] MEDS: QUEtiapine 100 MG TAB PO SCH (10:15)
[2018-11-28] MEDS: PREGABALIN 25 MG CAP PO SCH (10:16)
[2018-11-28] MEDS: PREGABALIN 75 MG CAP PO SCH (10:16)
[2018-11-28] MEDS: levETIRAcetam 500 MG TAB PO SCH (10:16)
[2018-11-28] MEDS: PANTOPRAZOLE 40 MG TAB PO SCH ×2 (10:16→22:03)
[2018-11-28] MEDS: PROPRANOLOL 10 MG TAB PO SCH ×2 (10:17→22:02)
[2018-11-28 10:31] LABS: Hematocrit 40.4 % (30.3-42.9); Hemoglobin 13.3 gm/dl (10.1-14.3)
[2018-11-28 10:46] LABS: INR 0.99 (0.87-1.13)
[2018-11-28] MEDS: HEPARIN/ 0.45% NACL DRIP 25,000 UNIT/500 ML BAG IV SCH ×3 (11:06→18:22)
--- NOTE | 2018-11-28 12:15 | Progress Note ---
Assessment and Plan Assessment and plan: --History of DVT and PE status post EKOS; Chronic anticoagulation. 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 Cardiology following --Nonischemic cardiomyopathy; ejection fraction 35-40% Continue current cardiac medications --Chronic systolic congestive heart failure, EF 35-40% Well compensated --History of seizures; seizure precautions Antiepileptic medications, no driving --Hyperthyroidism; methimazole --History of schizophrenia/bipolar disorder Continue current psych medications Psych evaluation --Medical noncompliance; counseling, strongly advised to comply Medications, diet follow-up visits Patient verbalized understanding --Obesity; BMI 39.0 --Tobacco use; smoking cessation counseling advised nicotine patch --DVT Prophylaxis; on heparin drip monitor closely and adjust the management as needed Plan of care is reviewed for the patient and her nurse History Interval history: Patient seen and examined medical records reviewed Patient feels better no new complaints Status complaints of generalized body pains On IV heparin and Coumadin Alert awake oriented 3 Vital signs noted Hospitalist Physical - Constitutional Vitals: Temp Pulse Resp BP Pulse Ox 97.7 F 72 18 143/72 95 11/28/18 07:24 11/28/18 10:17 11/28/18 08:00 11/28/18 10:17 11/28/18 04:25 General appearance: Present: no acute distress, well-nourished - EENT Eyes: Present: PERRL, EOM intact - Neck Neck: Present: supple, normal ROM - Respiratory Respiratory effort: normal Respiratory: bilateral: diminished, negative: rales, rhonchi, wheezing - Cardiovascular Rhythm: regular Heart Sounds: Present: S1 & S2 - Extremities Extremities: no ischemia, No edema - Abdominal General gastrointestinal: soft, non-tender, non-distended, normal bowel sounds - Integumentary Integumentary: Present: clear, warm - Psychiatric Psychiatric: appropriate mood/affect, cooperative - Neurologic Neurologic: CNII-XII intact, moves all extremities Results - Labs CBC & Chem 7: 11/28/18 Unknown 11/26/18 06:49 Labs: Laboratory Last Values WBC 8.0 K/mm3 (4.5-11.0) 11/26/18 06:49 RBC 4.92 M/mm3 (3.65-5.03) 11/26/18 06:49 Hgb 13.3 gm/dl (10.1-14.3) 11/28/18 Unknown Hct 40.4 % (30.3-42.9) 11/28/18 Unknown MCV 88 fl (79-97) 11/26/18 06:49 MCH 29 pg (28-32) 11/26/18 06:49 MCHC 33 % (30-34) 11/26/18 06:49 RDW 17.2 % (13.2-15.2) H 11/26/18 06:49 Plt Count 246 K/mm3 (140-440) 11/28/18 Unknown Lymph % (Auto) 38.7 % (13.4-35.0) H 11/26/18 06:49 [place] % (Auto) 6.2 % (0.0-7.3) 11/26/18 06:49 Eos % (Auto) 2.6 % (0.0-4.3) 11/26/18 06:49 Baso % (Auto) 1.3 % (0.0-1.8) 11/26/18 06:49 Lymph # 3.1 K/mm3 (1.2-5.4) 11/26/18 06:49 [place] # 0.5 K/mm3 (0.0-0.8) 11/26/18 06:49 Eos # 0.2 K/mm3 (0.0-0.4) 11/26/18 06:49 Baso # 0.1 K/mm3 (0.0-0.1) 11/26/18 06:49 Seg Neutrophils % 51.2 % (40.0-70.0) 11/26/18 06:49 Seg Neutrophils # 4.1 K/mm3 (1.8-7.7) 11/26/18 06:49 PT 12.8 Sec. (12.2-14.9) 11/28/18 Unknown INR 0.99 (0.87-1.13) 11/28/18 Unknown APTT 102.3 Sec. (24.2-36.6) H* 11/26/18 08:48 D-Dimer 432.71 ng/mlDDU (0-234) H 11/25/18 10:13 Heparin Anti-Xa Level 0.78 U.I./ml (0.3-0.7) H 11/28/18 Unknown Sodium 140 mmol/L (137-145) 11/26/18 06:49 Potassium 4.8 mmol/L (3.6-5.0) 11/26/18 06:49 Chloride 105.2 mmol/L (98-107) 11/26/18 06:49 Carbon Dioxide 26 mmol/L (22-30) 11/26/18 06:49 Anion Gap 14 mmol/L 11/26/18 06:49 BUN 15 mg/dL (7-17) 11/26/18 06:49 Creatinine 1.0 mg/dL (0.7-1.2) 11/26/18 06:49 Estimated GFR > 60 ml/min 11/26/18 06:49 BUN/Creatinine Ratio 15 % 11/26/18 06:49 Glucose 107 mg/dL (65-100) H 11/26/18 06:49 Calcium 8.5 mg/dL (8.4-10.2) 11/26/18 06:49 Magnesium 2.10 mg/dL (1.7-2.3) 11/25/18 10:13 Total Bilirubin < 0.20 mg/dL (0.1-1.2) 11/26/18 06:49 AST 12 units/L (5-40) 11/26/18 06:49 ALT 13 units/L (7-56) 11/26/18 06:49 Alkaline Phosphatase 64 units/L (35-129) 11/26/18 06:49 Troponin T < 0.010 ng/mL (0.00-0.029) 11/25/18 15:42 NT-Pro-B Natriuret Pep 40.77 pg/mL (0-450) 11/25/18 11:21 Total Protein 7.7 g/dL (6.3-8.2) 11/26/18 06:49 Albumin 4.1 g/dL (3.9-5) 11/26/18 06:49 Albumin/Globulin Ratio 1.1 % 11/26/18 06:49 TSH 0.312 mlU/mL (0.270-4.200) 11/25/18 10:13 Free T4 0.93 ng/dL (0.76-1.46) 11/25/18 10:13 Active Medications - Current Medications Current Medications: Generic Name Dose Route Start Last Admin Trade Name Freq PRN Reason Stop Dose Admin Acetaminophen 650 mg 11/25/18 14:20 Tylenol PO Q4H PRN Pain MILD(1-3)/Fever >100.5/OSEGUERA Albuterol 2.5 mg 11/25/18 14:20 Proventil IH Q4HRT PRN Shortness Of Breath Alprazolam 0.5 mg 11/25/18 22:00 11/28/18 10:14 Xanax PO 0.5 mg BID ELLIOTT Administration Carvedilol 3.125 mg 11/27/18 22:00 11/28/18 10:15 Coreg PO 3.125 mg BID ELLIOTT Administration Heparin Sodium/Sodium Chloride 25,000 unit in 500 mls @ 29 mls/hr 11/26/18 06:00 11/28/18 11:06 Heparin/ 0.45% Nacl-25,000 Unit/500 Ml IV 1,500 units/hr TITR ELLIOTT 30 mls/hr Administration Protocol 1,450 UNITS/HR Levetiracetam 500 mg 11/26/18 10:00 11/28/18 10:16 Keppra PO 500 mg DAILY ELLIOTT Administration Lisinopril 5 mg 11/28/18 10:00 11/28/18 10:14 Zestril PO 5 mg QDAY ELLIOTT Administration Methimazole 10 mg 11/25/18 22:00 11/28/18 05:15 Tapazole PO 10 mg Q8HR ELLIOTT Administration Methocarbamol 750 mg 11/25/18 14:32 11/28/18 10:18 Robaxin PO 750 mg Q6H PRN Administration Spasms Morphine Sulfate 2 mg 11/27/18 17:45 11/28/18 06:40 Morphine IV 2 mg Q6H PRN Administration Pain, Moderate (4-6) Ondansetron HCl 4 mg 11/25/18 14:20 Zofran IV Q8H PRN Nausea And Vomiting Ondansetron HCl 4 mg 11/25/18 14:32 Zofran Odt PO Q8H PRN Nausea And Vomiting Pantoprazole Sodium 40 mg 11/25/18 22:00 11/28/18 10:16 Protonix PO 40 mg BID ELLIOTT Administration Pregabalin 25 mg 11/26/18 10:00 11/28/18 10:16 Pregabalin PO 25 mg DAILY ELLIOTT Administration Pregabalin 75 mg 11/26/18 10:00 11/28/18 10:16 Pregabalin PO 75 mg DAILY ELLIOTT Administration Propranolol HCl 20 mg 11/25/18 22:00 11/28/18 10:17 Inderal PO 20 mg BID ELLIOTT Administration Quetiapine Fumarate 100 mg 11/28/18 10:00 11/28/18 10:15 Seroquel PO 100 mg DAILY ELLIOTT Administration Sodium Chloride 10 ml 11/25/18 22:00 11/28/18 10:18 Sodium Chloride Flush Syringe 10 Ml IV 10 ml BID ELLIOTT Administration Sodium Chloride 10 ml 11/25/18 14:20 Sodium Chloride Flush Syringe 10 Ml IV PRN PRN LINE FLUSH Tramadol HCl 50 mg 11/25/18 14:32 11/28/18 05:14 Ultram PO 50 mg Q6H PRN Administration PAIN Warfarin Sodium 10 mg 11/28/18 17:00 Coumadin PO DAILY@1700 [facility] Protocol Nutrition/Malnutrition Assess - Dietary Evaluation Nutrition/Malnutrition Findings: Nutrition Notes Start: 11/28/18 09:22 Freq: Status: Active Protocol: Document 11/28/18 09:23 PS (Rec: 11/28/18 11:35 PS [id number]) Co-Sign 11/28/18 09:23 LM Nutrition Notes Need for Assessment generated from: Education Initial or Follow up Assessment Current Diagnosis Hypertension Other Pertinent Diagnosis DVT, Pulmonary Embolism, GERD Current Diet Cardiac Consistent Carbohydrate Diet Labs/Tests 11/26 Glu 107 Pertinent Medications Coumadin Height 5 ft 4 in Weight 106.8 kg Usual Body Weight 104.54 kg [place] Body Weight (kg) 54.54 BMI 40.4 Intake Prior to Admission Fair Weight Status Obese Subjective/Other Information Consult for Coumadin education . Pt. stated she has an appetite but hard to eat because of recent surgeries. Pt. said she ate about 50% of breakfast, but she had appetite. Tech for patient stated pt. has been eating all of her food. Pt stated she's been drinking ONS at home. Pt. was aware of coumadin and has recieved education. Pt. took Vitamin K and Medication handout. Burn Absent Trauma Absent Minimum of two criteria No #2 Nutrition Diagnosis Food and nutrition-related knowledge deficit Etiology pt. back on coumadin and needing education As Evidenced by Signs and Symptoms pt. needing nutrition education on coumadin #1 Nutrition Diagnosis Inadequate oral intake Etiology difficulty eating because of recent surgeries As Evidenced by Signs and Symptoms pt. stating she was eating about 50% of meals at home [employer] , but does have appetite. Is patient on ventilator? No Is Patient Ambulatory and/or Out of Bed Yes REE-([place]-St. Jeor-ambulatory/OOB) [ 2252.900 [id number]] Kcal/Kg value to use for calculation 16 Approximate Energy Requirements Using 1709 kcal/Kg Calculation Used for Recommendations Kcal/kg Additional Notes Pro: 64 - 80 g (0.8-1 g/kg AdBW 80 kg) Fluid: 1 ml/kcal Nutrition Intervention Change Diet Order: Continue Cardiac Consistent Carbohydrate Diet Add Supplement/Snack (indicate name/kcal Ensure High Protein Chocolate /protein ) Daily Provides kCal: 160 Provides Protein (gm) 16 Teaching Recipient Patient Learning Readiness Good Teaching Methods Handout Response to Teaching Verbalize understanding Education Handouts Provided Vitamin K and Medications Barriers to Learning No Barriers RD phone number provided Yes Patient aware of follow up options Yes Goal #1 Meet 80% of energy/pro needs Anticipated Discharge Needs: Cardiac Diet Follow-Up By: 11/30/18 Additional Comments Follow up for PO/ONS intakes
[2018-11-28] MEDS ORDERED: WARFARIN 10 MG TAB PO SCH (17:00)
[2018-11-29] MEDS: MORPHINE 2 MG/1 ML INJ IV PRN ×3 (01:15→14:14)
[2018-11-29] MEDS: traMADol 50 MG TAB PO PRN (05:14)
[2018-11-29] MEDS: methIMAzole 5 MG TAB PO SCH ×2 (05:15→14:16)
[2018-11-29 06:05] LABS: INR 1.06 (0.87-1.13)
[2018-11-29] MEDS: HEPARIN/ 0.45% NACL DRIP 25,000 UNIT/500 ML BAG IV SCH (07:31)
[2018-11-29] MEDS: PROPRANOLOL 10 MG TAB PO SCH (10:11)
[2018-11-29] MEDS: LISINOPRIL 5 MG TAB PO SCH (10:12)
[2018-11-29] MEDS: PREGABALIN 25 MG CAP PO SCH (10:18)
[2018-11-29] MEDS: PANTOPRAZOLE 40 MG TAB PO SCH (10:24)
[2018-11-29] MEDS: ALPRAZolam 0.5 MG TAB PO SCH (10:24)
[2018-11-29] MEDS: QUEtiapine 100 MG TAB PO SCH (10:24)
[2018-11-29] MEDS: PREGABALIN 75 MG CAP PO SCH (10:25)
[2018-11-29] MEDS: carvediloL 3.125 MG TAB PO SCH (10:27)
--- NOTE | 2018-11-29 10:32 | Progress Note ---
Assessment and Plan N/V -chief complaint History of Nonischemic Cardiomyopathy, EF 35-40% no ischemia by MPI 05/2017 History of Lupus History of DVT and PE s/p eKOS INR subtherapeutic on admission. Warfarin resumed s/p TEVAR of the descending thoracic aorta for a history of aortic dissection History of seizures History of hyperthyroidism History of profound non-compliance Recommendations: Sodium/fluid restriction. Continue medical management for nonischemic cardiomyopathy as tolerated. Stable cardiac chahal. Subjective Date of service: 11/29/18 Interval history: No cardiac complaints. Objective Vital Signs Temp Pulse Resp BP Pulse Ox 11/29/18 10:27 79 11/29/18 10:12 79 11/29/18 10:11 79 11/29/18 07:52 98.6 F 77 18 125/77 92 11/29/18 05:14 20 11/29/18 04:04 99.0 F 11/29/18 04:03 80 18 105/65 93 11/29/18 01:15 20 11/29/18 00:00 80 11/28/18 23:33 99.2 F 11/28/18 23:32 99 H 18 114/77 96 11/28/18 22:02 100 H 102/55 11/28/18 21:47 100.1 F H 11/28/18 21:46 102 H 18 102/55 92 11/28/18 17:13 98.0 F 46 L 18 117/61 85 11/28/18 11:55 97.9 F 82 18 127/69 86 - Physical Examination General: No Apparent Distress HEENT: Positive: PERRL Neck: Positive: neck supple Cardiac: Positive: Reg Rate and Rhythm Lungs: Positive: Normal Breath Sounds Neuro: Positive: Grossly Intact Abdomen: Positive: Soft Extremities: Absent: edema - Labs and Meds Coagulation 11/28/18 11/29/18 Range/Units Unknown 05:16 PT 12.8 13.5 (12.2-14.9) Sec. INR 0.99 1.06 (0.87-1.13)
[2018-11-29] MEDS: levETIRAcetam 500 MG TAB PO SCH (10:38)
[2018-11-29 11:37] VITALS: BP 107/60
--- NOTE | 2018-11-29 12:25 | Consultation ---
History of Present Illness - Reason for Consult Consult date: 11/29/18 Reason for consult: Mental Health Evaluation Requesting physician: DAVION MCNEIL - Chief Complaint Chief complaint: "I am okay" - History of Present Psychiatric Illness 38 y.o. AA female who presented to the ER for SOB and "sticky sensation" in her chest. This patient is known to me. Today the patient was calm and cooperative during the assessment. She stated that she is compliant with her Seroquel for her "mood do." She stated that she is seen in [facility] for outpatient psy services. She cannot remember the name of her psychiatrist when asked. She denies any recent inpatient psy services. She stated she reside in the local area. She stated that she is okay "mentally." She is concerned about her physical health. She denies SI/HI's and AVH's. She denies erratic sleep and a poor appetite. She denies recreational drug use and alcohol consumption (etoh). Medications and Allergies Allergies Allergy/AdvReac Type Severity Reaction Status Date / Time acetaminophen [From Percocet] Allergy Itching Verified 07/15/18 09:11 garlic Allergy Unknown Verified 07/15/18 09:11 ibuprofen [From Motrin] Allergy Unknown Verified 07/15/18 09:11 oxycodone [From Percocet] Allergy Itching Verified 07/15/18 09:11 peanut oil Allergy Unknown Verified 07/15/18 09:11 Penicillins Allergy Unknown Verified 07/15/18 09:11 Home Medications Medication Instructions Recorded Confirmed Last Taken Type Pregabalin 100 mg PO QAM #30 capsule 05/26/17 03/16/18 1 Day Ago Rx ~03/15/18 ALPRAZolam [Xanax TAB] 0.5 mg PO BID #20 tablet 03/17/18 Unknown Rx Clopidogrel Bisulfate [Plavix] 75 mg PO DAILY #180 tablet 03/17/18 Unknown Rx Gabapentin [Neurontin] 900 mg PO TID #90 tablet 03/17/18 Unknown Rx Pantoprazole [Protonix TAB] 40 mg PO BID #60 tablet 03/17/18 Unknown Rx Pregabalin 75 mg PO DAILY #30 capsule 03/17/18 Unknown Rx Propranolol [Inderal] 20 mg PO BID #60 tablet 03/17/18 Unknown Rx QUEtiapine [SEROquel] 100 mg PO DAILY #30 tablet 03/17/18 Unknown Rx Rivaroxaban [Xarelto] 20 mg PO QDAY #180 tab 03/17/18 Unknown Rx levETIRAcetam [Keppra] 500 mg PO DAILY #30 tablet 03/17/18 Unknown Rx methIMAzole [Tapazole] 10 mg PO Q8HR tablet 03/17/18 Unknown Rx Methocarbamol [Robaxin-750] 750 mg PO Q6HR PRN #20 tablet 03/31/18 Unknown Rx Ondansetron [Zofran Odt] 4 mg PO Q8HR PRN #20 tab.rapdis 06/22/18 Unknown Rx traMADol [Ultram 50 MG tab] 50 mg PO Q6HR PRN #15 tablet 06/22/18 Unknown Rx Ondansetron [Zofran Odt] 4 mg PO Q8HR #10 tab.rapdis 07/15/18 Unknown Rx traMADol [Ultram 50 MG tab] 50 mg PO Q6HR PRN #10 tablet 10/13/18 Unknown Rx Active Meds: Active Medications Acetaminophen (Tylenol) 650 mg PO Q4H PRN PRN Reason: Pain MILD(1-3)/Fever >100.5/OSEGUERA Albuterol (Proventil) 2.5 mg IH Q4HRT PRN PRN Reason: Shortness Of Breath Alprazolam (Xanax) 0.5 mg PO BID [facility] Last Admin: 11/29/18 10:24 Dose: 0.5 mg Documented by: Carvedilol (Coreg) 3.125 mg PO BID [facility] Last Admin: 11/29/18 10:27 Dose: 3.125 mg Documented by: Heparin Sodium/Sodium Chloride (Heparin/ 0.45% Nacl-25,000 Unit/500 Ml) 25,000 unit in 500 mls @ 29 mls/hr IV TITR [facility]; Protocol Last Admin: 11/29/18 07:31 Dose: 1,400 units/hr, 28 mls/hr Documented by: Levetiracetam (Keppra) 500 mg PO DAILY [facility] Last Admin: 11/29/18 10:38 Dose: 500 mg Documented by: Lisinopril (Zestril) 5 mg PO QDAY [facility] Last Admin: 11/29/18 10:12 Dose: 5 mg Documented by: Methimazole (Tapazole) 10 mg PO Q8HR [facility] Last Admin: 11/29/18 05:15 Dose: 10 mg Documented by: Methocarbamol (Robaxin) 750 mg PO Q6H PRN PRN Reason: Spasms Last Admin: 11/29/18 07:31 Dose: 750 mg Documented by: Morphine Sulfate (Morphine) 2 mg IV Q6H PRN PRN Reason: Pain, Moderate (4-6) Last Admin: 11/29/18 07:30 Dose: 2 mg Documented by: Ondansetron HCl (Zofran) 4 mg IV Q8H PRN PRN Reason: Nausea And Vomiting Ondansetron HCl (Zofran Odt) 4 mg PO Q8H PRN PRN Reason: Nausea And Vomiting Pantoprazole Sodium (Protonix) 40 mg PO BID [facility] Last Admin: 11/29/18 10:24 Dose: 40 mg Documented by: Pregabalin (Pregabalin) 25 mg PO DAILY [facility] Last Admin: 11/29/18 10:18 Dose: 25 mg Documented by: Pregabalin (Pregabalin) 75 mg PO DAILY [facility] Last Admin: 11/29/18 10:25 Dose: 75 mg Documented by: Propranolol HCl (Inderal) 20 mg PO BID [facility] Last Admin: 11/29/18 10:11 Dose: 20 mg Documented by: Quetiapine Fumarate (Seroquel) 100 mg PO DAILY [facility] Last Admin: 11/29/18 10:24 Dose: 100 mg Documented by: Sodium Chloride (Sodium Chloride Flush Syringe 10 Ml) 10 ml IV BID [facility] Last Admin: 11/29/18 10:25 Dose: 10 ml Documented by: Sodium Chloride (Sodium Chloride Flush Syringe 10 Ml) 10 ml IV PRN PRN PRN Reason: LINE FLUSH Tramadol HCl (Ultram) 50 mg PO Q6H PRN PRN Reason: PAIN Last Admin: 11/29/18 05:14 Dose: 50 mg Documented by: Warfarin Sodium (Coumadin) 10 mg PO DAILY@1700 [facility]; Protocol Last Admin: 11/28/18 17:12 Dose: 10 mg Documented by: Past psychiatric history - Past Medical History Past Medical History: DVT, pulmonary embolism Past Surgical History: Other (Left arm surgery 02/2017, Right knee, Rt leg. 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 Denies a fam psy hx. - Social History Social history: other (Reside with others) Mental Status Exam - Vital signs Last Vital Signs Temp 99.2 F 11/29/18 11:34 Pulse 91 H 11/29/18 11:34 Resp 18 11/29/18 11:34 BP 107/60 11/29/18 11:34 Pulse Ox 92 11/29/18 11:34 - Exam Narrative exam: MSE: Appearance: calm, cooperative Behavior: regular eye contact Speech: regular rate and tone Mood: "okay" Affect: congruent to mood Thought Process: logical Thought Content: denies SI/HI's and AVH's Motor Activity: ambulatory Cognition: A/O x3 Insight: fair Judgment: appropriate Results Result Diagrams: 11/28/18 Unknown 11/26/18 06:49 Abnormal lab results 11/28/18 Range/Units 17:29 Heparin Anti-Xa Level 0.83 H (0.3-0.7) U.I./ml All other labs normal. 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 No overt psychosis with the patient. Today the patient was calm and cooperative during the assessment. Recommendation/Plan: Continue Seroquel 100 mg Po daily for mood. Discussed possi ble metabolic side effects of Seroquel with the patient, she verbalized understanding. Baseline A1c/Lipid Panel in the AM. Will follow up with the patient in 24 hours if still in the hospital. Dispo; The patient can follow up with [facility] for outpatient psy services when discharged. Will staff with Dr Randal Elise.
--- NOTE | 2018-11-29 13:28 | Discharge Summary ---
Providers - Providers Date of Admission: 11/25/18 14:20 Date of discharge: 11/29/18 Attending physician: DAVION MCNEIL 11/25/18 14:20 Consult to Physician [CONS] Routine Comment: Consulting Provider: DEVIKA MELO Physician Instructions: Reason For Exam: chf 11/26/18 06:43 Consult to PICC Line RN [CONS] Urgent Reason For Exam: difficult stick Type Line:: PICC 11/27/18 17:58 psychiatry consult [Consult to Mental Health] [CONS] Routine Reason For Exam: h/o schizophrenia/bipolar Place consult to:: mental health Notified:: Yovana KIRK Comment:: Patient seen by mental health audit associate Larry lewis 11/28/18 @ 0722 Primary care physician: [employer] Hospitalization Reason for admission: chest pain, shortness of breath Condition: Fair Pertinent studies: Chest x-ray; no acute abnormality VQ scan; low probability for PE Hospital course: 38 YO Female with HTN, [place], DVT/PE on Therapeutic Anticoagulation, Nicotine Dependence, Seizure Disorder, GERD, Graves Disease, Anxiety, Obesity Hypoventilation, Medication Noncompliance, Aortic Dissection S/P TEVAR presents to ED for evaluation. Pt states that she has experienced "sticking sensation" in her chest, bilateral arm numbness, and shortness of breath over the past 2 weeks, with persistently worsening symptoms over the past 1 week Patient was admitted symptomatically managed evaluated by cardiology and psychiatric medications optimized Patient's symptoms significantly improved The patient is comfortable no new complaints vital signs stable physical examination unremarkable Hemodynamically and clinically stable at discharge, in view of heart seizure disorder patient is advised strictly not to drive Verbalized understanding Discharge diagnosis; --History of DVT and PE status post EKOS; Chronic anticoagulation. 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 Cardiology following --Nonischemic cardiomyopathy; ejection fraction 35-40% Continue current cardiac medications --Chronic systolic congestive heart failure, EF 35-40% Well compensated --History of seizures; seizure precautions Antiepileptic medications, no driving --Hyperthyroidism; methimazole --History of schizophrenia/bipolar disorder Continue current psych medications Psych evaluation --Medical noncompliance; counseling, strongly advised to comply Medications, diet follow-up visits Patient verbalized understanding --Obesity; BMI 39.0 --Tobacco use; smoking cessation counseling advised nicotine patch --DVT Prophylaxis; on heparin drip Stable at discharge Disposition: DC-01 TO HOME OR SELFCARE Time spent for discharge: 32 min Core Measure Documentation - Palliative Care Palliative Care/ Comfort Measures: Not Applicable - Core Measures Any of the following diagnoses?: none Exam - Constitutional Vitals: Temp Pulse Resp BP Pulse Ox 99.2 F 91 H 18 107/60 92 11/29/18 11:34 11/29/18 11:34 11/29/18 11:34 11/29/18 11:34 11/29/18 11:34 General appearance: Present: no acute distress, well-nourished - EENT Eyes: Present: PERRL, EOM intact - Neck Neck: Present: supple, normal ROM - Respiratory Respiratory effort: normal Respiratory: bilateral: diminished, negative: rales, rhonchi, wheezing - Cardiovascular Rhythm: regular Heart Sounds: Present: S1 & S2 - Extremities Extremities: no ischemia, No edema - Abdominal General gastrointestinal: Present: soft, non-tender, non-distended, normal bowel sounds - Integumentary Integumentary: Present: clear, warm - Musculoskeletal Musculoskeletal: strength equal bilaterally - Psychiatric Psychiatric: appropriate mood/affect - Neurologic Neurologic: CNII-XII intact, moves all extremities Plan Activity: advance as tolerated, no driving until cleared by PCP, fall precautions Diet: regular, other (cardiac diet) Additional Instructions: next Coumadin check in 2 days at [facility] office/[place] [facility]. Target INR 2-3. Advice to see private world travel counselor in 1-2 weeks. f/u [facility] 3-5 days Follow up with: LEANDER BUTLER MD [Primary Care Provider] - 3-5 Days DEVIKA MELO MD [Staff Physician] - 7 Days Forms: Warfarin Discharge Instruction Prescriptions: Carvedilol [Coreg] 3.125 mg PO BID #60 tablet Warfarin [Coumadin] 7.5 mg PO QDAY #30 tablet Propranolol [Inderal] 20 mg PO BID #60 tablet levETIRAcetam [Keppra TAB] 500 mg PO BID #60 tablet Pregabalin 100 mg PO QAM #30 capsule Pantoprazole [Protonix TAB] 20 mg PO QDAY #30 tablet. QUEtiapine [SEROquel] 100 mg PO DAILY #10 tablet methIMAzole [Tapazole] 5 mg PO Q8H #90 tab traMADol [Ultram 50 MG tab] 50 mg PO Q6HR PRN #15 tablet PRN Reason: Pain ALPRAZolam [Xanax TAB] 0.5 mg PO BID #20 tablet Lisinopril [Zestril TAB] 5 mg PO QDAY #30 tablet Ondansetron [Zofran ODT TAB] 4 mg PO Q8HR #10 tab.arthur
== END 2018-11-29 16:00 | disposition home or self-care (01) | DRG 948 ==
LOC: ED 09:03 → 4A 14:20
PROVIDERS: ADMIT Internal Medicine; ATTEND Internal Medicine
PROC: 02HV33Z Insertion of Infusion Device into Superior Vena Cava, Percutaneous Approach (ICD-10-PCS; principal; 2018-11-26)
DX: R79.1 Abnormal coagulation profile (principal); R11.2 Nausea with vomiting, unspecified; E66.2 Morbid (severe) obesity with alveolar hypoventilation; G40.909 Epilepsy, unspecified, not intractable, without status epilepticus; I27.82 Chronic pulmonary embolism; I42.9 Cardiomyopathy, unspecified; F12.90 Cannabis use, unspecified, uncomplicated; I50.22 Chronic systolic (congestive) heart failure; K21.9 Gastro-esophageal reflux disease without esophagitis; F17.213 Nicotine dependence, cigarettes, with withdrawal; I11.0 Hypertensive heart disease with heart failure; Z79.01 Long term (current) use of anticoagulants; Z79.899 Other long term (current) drug therapy; Z86.718 Personal history of other venous thrombosis and embolism; I25.2 Old myocardial infarction; Z71.3 Dietary counseling and surveillance; Z91.19 Patient's noncompliance with other medical treatment and regimen; Z95.4 Presence of other heart-valve replacement; Z82.49 Family history of ischemic heart disease and other diseases of the circulatory system; Z88.6 Allergy status to analgesic agent; Z88.5 Allergy status to narcotic agent; Z91.010 Allergy to peanuts; Z88.0 Allergy status to penicillin; Z88.8 Allergy status to other drugs, medicaments and biological substances; Z91.018 Allergy to other foods; Z71.6 Tobacco abuse counseling; Z68.39 Body mass index [BMI] 39.0-39.9, adult; Z71.89 Other specified counseling
CPT/HCPCS: 36415; 71046; 78582; 80048; 80053; 83735; 83880; 84439; 84443; 84484; 85014; 85018; 85025; 85049; 85379; 85520; 85610; 85730; 87116; 93005; 93010; 96374; 96375; 99406; G0378; A9540; A9558; J1644; J1650; J2270; J2405; J3010

== ENCOUNTER 2018-12-22 05:12 | Emergency (ER) | payer MEDICAID ==
[2018-12-22 05:45] VITALS: BP 146/95
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
== END 2018-12-22 10:13 | disposition left against medical advice (07) ==
LOC: ED 05:12
DX: S60.222A Contusion of left hand, initial encounter (principal); S60.221A Contusion of right hand, initial encounter; S20.219A Contusion of unspecified front wall of thorax, initial encounter; I10 Essential (primary) hypertension; I25.2 Old myocardial infarction; K21.9 Gastro-esophageal reflux disease without esophagitis; F41.9 Anxiety disorder, unspecified; E05.90 Thyrotoxicosis, unspecified without thyrotoxic crisis or storm; F17.200 Nicotine dependence, unspecified, uncomplicated; Z98.890 Other specified postprocedural states; Z86.718 Personal history of other venous thrombosis and embolism; Z86.711 Personal history of pulmonary embolism; Z79.899 Other long term (current) drug therapy; Z91.010 Allergy to peanuts; Z88.0 Allergy status to penicillin; Z88.8 Allergy status to other drugs, medicaments and biological substances; Y00.XXXA Assault by blunt object, initial encounter; Y93.89 Activity, other specified; Y92.89 Other specified places as the place of occurrence of the external cause; Y99.8 Other external cause status
CPT/HCPCS: 36415; 84703

== ENCOUNTER 2019-01-26 08:38 | Emergency (ER) | payer MEDICAID ==
[2019-01-26 08:54] VITALS: BP 114/61
--- NOTE | 2019-01-26 10:16 | Emergency Department Report ---
<IVA BRANCH - Last Filed: 01/26/19 10:10> ED General Adult HPI - General Chief complaint: Chest Pain Stated complaint: CHEST PAIN Time Seen by Provider: 01/26/19 09:29 Source: patient Mode of arrival: Ambulatory Limitations: No Limitations - History of Present Illness Initial comments: 38-year-old -[place] female with a known past medical history of anxiety bipolar disorder, DVT, pulmonary embolisms, history of pericarditis, Graves' disease disease, and a recent history of a descending thoracic aortic diastasis section with a status post thoracic endovascular aortic repair and currently anticoagulated with Coumadin 7.5 mg presents to emergency department today complaining of various episodes of episodic chest pain associated with random episodes of dizziness and the sensation that she is having seizure activity. She does not report any postictal activities, no loss of bowel, bladder, no headache, no visual changes. She reports no exertional dyspnea or chest pains symptoms. She states that she's been compliant with her medications but feels that her INR may be low one to have it evaluated as well as have some medications refilled. She states she hasn't appointment with a clinic on [place] around February 08 she is relocating from the primary clinic. She reports no fever, chills, sweats, hemoptysis, easy bruising, wheezing, loss of vision,, recent trauma, abdominal pain or spontaneous bleeding. - Related Data Previous Rx's Medication Instructions Recorded Last Taken Type ALPRAZolam [Xanax TAB] 0.5 mg PO BID #20 tablet 11/29/18 Unknown Rx Lisinopril [Zestril TAB] 5 mg PO QDAY #30 tablet 11/29/18 Unknown Rx Ondansetron [Zofran ODT TAB] 4 mg PO Q8HR #10 tab.rapdis 11/29/18 Unknown Rx Pantoprazole [Protonix TAB] 20 mg PO QDAY #30 tablet. 11/29/18 Unknown Rx Pregabalin 100 mg PO QAM #30 capsule 11/29/18 Unknown Rx Propranolol [Inderal] 20 mg PO BID #60 tablet 11/29/18 Unknown Rx QUEtiapine [SEROquel] 100 mg PO DAILY #10 tablet 11/29/18 Unknown Rx Warfarin [Coumadin] 7.5 mg PO QDAY #30 tablet 11/29/18 Unknown Rx carvediloL [Coreg] 3.125 mg PO BID #60 tablet 11/29/18 Unknown Rx levETIRAcetam [Keppra TAB] 500 mg PO BID #60 tablet 11/29/18 Unknown Rx methIMAzole [Tapazole] 5 mg PO Q8H #90 tab 11/29/18 Unknown Rx traMADoL [Ultram 50 MG tab] 50 mg PO Q6HR PRN #15 tablet 11/29/18 Unknown Rx Allergies Allergy/AdvReac Type Severity Reaction Status Date / Time acetaminophen [From Percocet] Allergy Itching Verified 07/15/18 09:11 garlic Allergy Unknown Verified 07/15/18 09:11 ibuprofen [From Motrin] Allergy Unknown Verified 07/15/18 09:11 oxycodone [From Percocet] Allergy Itching Verified 07/15/18 09:11 peanut oil Allergy Unknown Verified 07/15/18 09:11 Penicillins Allergy Unknown Verified 07/15/18 09:11 ED Review of Systems Comment: All other systems reviewed and negative ED Past Medical Hx - Past Medical History Hx Hypertension: Yes Hx Heart Attack/AMI: (normal stress 10-31-16, normal perfusion scan May 2017) Hx Congestive Heart Failure: No Hx Diabetes: No Hx Deep Vein Thrombosis: Yes Hx Pulmonary Embolism: Yes Hx GERD: Yes Hx Sickle Cell Disease: No Hx Seizures: Yes Hx Psychiatric Treatment: Yes (anxiety) Hx Asthma: No Hx COPD: No Hx Tuberculosis: No Hx HIV: No Additional medical history: pericarditis, pt states hyperthyroidism, thyroid storm, PE x2, (R lung 05/2016, L lung 01/2017--on coumadin), R leg DVT 03/2017, Graves Disease, heart murmur, aortic dissection - Surgical History Hx Pacemaker: No Hx Internal Defibrillator: No Additional Surgical History: Left arm surgery 02/2017, Right knee, Rt leg. 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 - Social History Smoking Status: Current Some Day Smoker Substance Use Type: None - Medications Home Medications: Home Medications Medication Instructions Recorded Confirmed Last Taken Type ALPRAZolam [Xanax TAB] 0.5 mg PO BID #20 tablet 11/29/18 Unknown Rx Lisinopril [Zestril TAB] 5 mg PO QDAY #30 tablet 11/29/18 Unknown Rx Ondansetron [Zofran ODT TAB] 4 mg PO Q8HR #10 tab.rapdis 11/29/18 Unknown Rx Pantoprazole [Protonix TAB] 20 mg PO QDAY #30 tablet.dr 11/29/18 Unknown Rx Pregabalin 100 mg PO QAM #30 capsule 11/29/18 Unknown Rx Propranolol [Inderal] 20 mg PO BID #60 tablet 11/29/18 Unknown Rx QUEtiapine [SEROquel] 100 mg PO DAILY #10 tablet 11/29/18 Unknown Rx Warfarin [Coumadin] 7.5 mg PO QDAY #30 tablet 11/29/18 Unknown Rx carvediloL [Coreg] 3.125 mg PO BID #60 tablet 11/29/18 Unknown Rx levETIRAcetam [Keppra TAB] 500 mg PO BID #60 tablet 11/29/18 Unknown Rx methIMAzole [Tapazole] 5 mg PO Q8H #90 tab 11/29/18 Unknown Rx traMADoL [Ultram 50 MG tab] 50 mg PO Q6HR PRN #15 tablet 11/29/18 Unknown Rx ED Physical Exam - General Limitations: No Limitations General appearance: alert, in no apparent distress - Head Head exam: Present: atraumatic, normocephalic - Eye Eye exam: Present: normal appearance, PERRL, EOMI - ENT ENT exam: Present: mucous membranes moist - Neck Neck exam: Present: normal inspection, full ROM - Respiratory Respiratory exam: Present: normal lung sounds bilaterally. Absent: respiratory distress, wheezes, rales, rhonchi, stridor, chest wall tenderness, accessory muscle use, decreased breath sounds - Cardiovascular Cardiovascular Exam: Present: regular rate, normal rhythm, normal heart sounds. Absent: systolic murmur, diastolic murmur, rubs, gallop - GI/Abdominal GI/Abdominal exam: Present: soft, normal bowel sounds. Absent: pulsatile mass - Extremities Exam Extremities exam: Present: normal inspection - Back Exam Back exam: Present: normal inspection - Neurological Exam Neurological exam: Present: alert, oriented X3 - Psychiatric Psychiatric exam: Present: normal affect, normal mood - Skin Skin exam: Present: warm, dry, intact, normal color. Absent: rash ED Medical Decision Making - Medical Decision Making This 38-year-old female patient presents with chest pain and although she has a extensive history and wall and pulmonary embolisms, seizures, aortic dissection with repair and anticoagulation it is unlikely her current symptoms are related to angina or acute coronary syndrome. The emergency department evaluation history and physical and detailed discussion along with a normal EKG and stable vital signs has not identified any cause for suspicion that this chest pain has a cardiac etiology. Based on their history, EKG (which showed no evidence of ischemia or infarction), in addition to the patient's physical exam, I see no evidence at this time for a malignant etiology for the patient's chest pain. There is no acute evidence for new pulmonary embolus evolution, acute myocardial infarction, pneumothorax, Boerhaeve syndrome, cardiac tamponade, thoracic artery dissection, or any other emergent cardiac, pulmonary or aortic pathology. Given the current treatment of Ms. Ryan, current medication regimen, the stability of her vital signs and the lack of current symptoms and the absence of any sign of ischemia or infarction, discharge for outpatient follow-up and further evaluation is reasonable. Discussed with her the need for primary care for definitive management management of the myriad of medications currently on her profile. I have explained to the patient that even though a cardiac problem is very unlikely, follow-up and further testing is required to reduce further the already small uncertainty that exists. Other life-threatening diagnoses have been considered. The patient understands the need to return immediately if their symptoms worsen or they develop any new symptoms, and not to engage in any significant exertional activity until follow-up is obtained. This case was reviewed and discussed in detail with the attending Dr. Chauncey Donovan ED Disposition Clinical Impression: Syncope, Chest pain at rest Disposition: DC-01 TO HOME OR SELFCARE Is pt being admited?: No Does the pt Need Aspirin: No Condition: Stable Instructions: Chest Pain (ED), Syncope (ED) Referrals: NIKKY BARNETT MD [Staff Physician] - 01/28/19 (Please follow up with this doctor on Monday for evaluation of her INR and refill of your current medications) <JACKI DONOVAN - Last Filed: 01/26/19 11:01> ED Review of Systems ROS: Stated complaint: CHEST PAIN Other details as noted in HPI ED Course Vital Signs 01/26/19 08:43 Temperature 97.5 F L Pulse Rate 69 Respiratory 20 Rate Blood Pressure 114/61 O2 Sat by Pulse 98 Oximetry ED Medical Decision Making - Medical Decision Making I discussed this case with my colleague Mr. Jaime VALENCIA. I agree with the treatment plan. I am very familiar with Mrs. Ryan. I have treated her on previous encounter for similar presentation. She will benefit by obtaining primary care physician. We have referred her to our outpatient medicine phyisician as well as the local [facility] affiliated with [facility]. Critical care attestation.: If time is entered above; I have spent that time in minutes in the direct care of this critically ill patient, excluding procedure time. ED Disposition Is pt being admited?: No Does the pt Need Aspirin: No
[2019-01-26] MEDS ORDERED: traMADol 50 MG TAB PO STA (10:55)
== END 2019-01-26 11:00 | disposition home or self-care (01) ==
LOC: ED 08:38
DX: R07.89 Other chest pain (principal); R42 Dizziness and giddiness; R55 Syncope and collapse; I10 Essential (primary) hypertension; K21.9 Gastro-esophageal reflux disease without esophagitis; F41.9 Anxiety disorder, unspecified; F17.200 Nicotine dependence, unspecified, uncomplicated; Z86.718 Personal history of other venous thrombosis and embolism; Z86.711 Personal history of pulmonary embolism; Z88.6 Allergy status to analgesic agent; Z91.018 Allergy to other foods; Z88.5 Allergy status to narcotic agent; Z91.010 Allergy to peanuts; Z88.0 Allergy status to penicillin; Z79.899 Other long term (current) drug therapy; Z98.890 Other specified postprocedural states
CPT/HCPCS: 93005; 93010

== ENCOUNTER 2019-06-08 23:33 | Emergency (ER) | payer MEDICAID ==
[2019-06-09 00:25] LABS: Basophils # (Auto) 0.1 K/mm3 (0.0-0.1); Basophils % (Auto) 0.8 % (0.0-1.8); Eosinophils # (Auto) 0.1 K/mm3 (0.0-0.4); Eosinophils % (Auto) 1.4 % (0.0-4.3); Hematocrit 41.4 % (30.3-42.9); Hemoglobin 13.9 gm/dl (10.1-14.3); Lymphocytes # (Auto) 2.8 K/mm3 (1.2-5.4); Lymphocytes % (Auto) 35.7 % (13.4-35.0); Mean Corpuscular HGB Conc 34 % (30-34); Mean Corpuscular Volume 90 fl (79-97); Monocytes # (Auto) 0.5 K/mm3 (0.0-0.8); Monocytes % (Auto) 6.9 % (0.0-7.3); Platelet Count 286 K/mm3 (140-440); Red Cell Distribution Width 14.2 % (13.2-15.2)
[2019-06-09 00:35] LABS: INR 0.98 (0.87-1.13)
[2019-06-09 00:36] LABS: Partial Thromboplastin Time 25.5 Sec. (24.2-36.6)
[2019-06-09] MEDS ORDERED: MORPHINE 4 MG/1 ML INJ IV ONE ×3 (00:45→06:06)
[2019-06-09] MEDS ORDERED: ONDANSETRON 4 MG/2 ML INJ IV ONE (00:45)
[2019-06-09] MEDS ORDERED: SODIUM CHLORIDE 0.9% 1000 ML 1,000 ML IV ONE (00:45)
--- NOTE | 2019-06-09 00:49 | Emergency Department Report ---
ED Chest Pain HPI - General Chief Complaint: Chest Pain Stated Complaint: SYNCOPE/CP/VOMITING Time Seen by Provider: 06/09/19 00:09 Source: patient Mode of arrival: Ambulatory Limitations: No Limitations - History of Present Illness Initial Comments: 38-year-old female with multiple chronic medical conditions presents to the hospital complaining of chest pain, vomiting, and syncope for 2-3 weeks. Patient has a history of repeated ER visits for complaints of chest pain, vomiting, and syncope, multiple DVTs and PE on coumadin and IVC filter placement , lupus anticoagulant, hypothyroidism, anxiety, seizures, history of descending thoracic aortic dissection treated with transcutaneous implantation of a graft, and chronic noncompliance. Patient has had chest pain intermittently for the last 3 weeks described as tearing and burning worse with movement and palpation that radiates to the mid back. Patient taking prescribed tramadol without relief. Patient reports approximately 3 episodes of vomiting today with decreased p.o. intake. Patient is prescribed Zofran ODT and tablets which are not helping her with the vomiting. She has had multiple episodes of fainting over the last 2 weeks with last episode this evening. Patient has roommates who she states denied that she had seizure activity during these episodes. Patient was recently seen in a [place] hospital about 1.5 months ago she was admitted to a hospital in [place] for similar symptoms and was recommended to follow-up with her doctors as scheduled. Patient sees several specialists including tow motor driver, neurologist and director inpatient headache program and states that she has been told her fainting episodes could be due to subtherapeutic INR. Patient has a history of nonischemic cardiomyopathy with a EF of 35 to 40% and a negative MPI stress test in 2018 Severity scale (0 -10): 8 - Related Data Previous Rx's Medication Instructions Recorded Last Taken Type ALPRAZolam [Xanax TAB] 0.5 mg PO BID #20 tablet 11/29/18 Unknown Rx Ondansetron [Zofran ODT TAB] 4 mg PO Q8HR #10 tab.rapdis 11/29/18 Unknown Rx Pantoprazole [Protonix TAB] 20 mg PO QDAY #30 tablet. 11/29/18 Unknown Rx Pregabalin 100 mg PO QAM #30 capsule 11/29/18 Unknown Rx QUEtiapine [SEROquel] 100 mg PO DAILY #10 tablet 11/29/18 Unknown Rx Warfarin [Coumadin] 7.5 mg PO QDAY #30 tablet 11/29/18 Unknown Rx carvediloL [Coreg] 3.125 mg PO BID #60 tablet 11/29/18 Unknown Rx levETIRAcetam [Keppra TAB] 500 mg PO BID #60 tablet 11/29/18 Unknown Rx lisinopriL [Zestril TAB] 5 mg PO QDAY #30 tablet 11/29/18 Unknown Rx methIMAzole [Tapazole] 5 mg PO Q8H #90 tab 11/29/18 Unknown Rx propranoloL [Inderal] 20 mg PO BID #60 tablet 11/29/18 Unknown Rx Promethazine [Phenergan] 25 mg PO Q8HR PRN #14 tab 06/09/19 Unknown Rx traMADoL [Ultram 50 MG tab] 50 mg PO Q6HR PRN #15 tablet 06/09/19 Unknown Rx Allergies Allergy/AdvReac Type Severity Reaction Status Date / Time acetaminophen [From Percocet] Allergy Itching Verified 07/15/18 09:11 garlic Allergy Unknown Verified 07/15/18 09:11 ibuprofen [From Motrin] Allergy Unknown Verified 07/15/18 09:11 oxycodone [From Percocet] Allergy Itching Verified 07/15/18 09:11 peanut oil Allergy Unknown Verified 07/15/18 09:11 Penicillins Allergy Unknown Verified 07/15/18 09:11 Heart Score - HEART Score History: Slightly suspicious EKG: Normal Age: < 45 Risk factors: > 3 risk factors or hx of atherosclerotic disease Troponin: < normal limit HEART Score: 2 ED Review of Systems ROS: Stated complaint: SYNCOPE/CP/VOMITING Other details as noted in HPI Comment: All other systems reviewed and negative ED Past Medical Hx - Past Medical History Hx Hypertension: Yes Hx Heart Attack/AMI: (normal stress 10-31-16, normal perfusion scan May 2017) Hx Congestive Heart Failure: No Hx Diabetes: No Hx Deep Vein Thrombosis: Yes Hx Pulmonary Embolism: Yes Hx GERD: Yes Hx Sickle Cell Disease: No Hx Seizures: Yes Hx Psychiatric Treatment: Yes (anxiety) Hx Asthma: No Hx COPD: No Hx Tuberculosis: No Hx HIV: No Additional medical history: pericarditis, pt states hyperthyroidism, thyroid storm, PE x2, (R lung 05/2016, L lung 01/2017--on coumadin), R leg DVT 03/2017, Graves Disease, heart murmur, aortic dissection - Surgical History Hx Pacemaker: No Hx Internal Defibrillator: No Additional Surgical History: Left arm surgery 02/2017, Right knee, Rt leg. 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 - Social History Smoking Status: Former Smoker Substance Use Type: None - Medications Home Medications: Home Medications Medication Instructions Recorded Confirmed Last Taken Type ALPRAZolam [Xanax TAB] 0.5 mg PO BID #20 tablet 11/29/18 Unknown Rx Ondansetron [Zofran ODT TAB] 4 mg PO Q8HR #10 tab.rapdis 11/29/18 Unknown Rx Pantoprazole [Protonix TAB] 20 mg PO QDAY #30 tablet.dr 11/29/18 Unknown Rx Pregabalin 100 mg PO QAM #30 capsule 11/29/18 Unknown Rx QUEtiapine [SEROquel] 100 mg PO DAILY #10 tablet 11/29/18 Unknown Rx Warfarin [Coumadin] 7.5 mg PO QDAY #30 tablet 11/29/18 Unknown Rx carvediloL [Coreg] 3.125 mg PO BID #60 tablet 11/29/18 Unknown Rx levETIRAcetam [Keppra TAB] 500 mg PO BID #60 tablet 11/29/18 Unknown Rx lisinopriL [Zestril TAB] 5 mg PO QDAY #30 tablet 11/29/18 Unknown Rx methIMAzole [Tapazole] 5 mg PO Q8H #90 tab 11/29/18 Unknown Rx propranoloL [Inderal] 20 mg PO BID #60 tablet 11/29/18 Unknown Rx Promethazine [Phenergan] 25 mg PO Q8HR PRN #14 tab 06/09/19 Unknown Rx traMADoL [Ultram 50 MG tab] 50 mg PO Q6HR PRN #15 tablet 06/09/19 Unknown Rx ED Physical Exam - General Limitations: No Limitations - Other Other exam information: General: No acute distress Head: Atraumatic without hematoma or signs of trauma Eyes: normal appearance, pupils equal reactive to light ENT: Moist mucous membranes Neck: Normal appearance, no midline tenderness Chest: Clear to auscultation bilaterally, reproducible anterior mid chest wall tenderness on palpation CV: Regular rate and rhythm Abdomen: Soft, normal bowel sounds, nontender, nondistended, no rebound or guarding Back: Normal inspection Extremity: Normal inspection, full range of motion, no calf tenderness, leg asymmetry, or leg edema Neuro: Alert O x 3, no facial asymmetry, speech clear, no gross motor sensory deficit, [id number] function intact Psych: Appropriate behavior Skin: No rash ED Course Vital Signs 06/08/19 06/09/19 06/09/19 23:38 00:31 01:01 Temperature 97.7 F Pulse Rate 75 76 71 Respiratory 18 18 22 Rate Blood Pressure 126/82 116/74 117/68 O2 Sat by Pulse 100 100 96 Oximetry 06/09/19 06/09/19 06/09/19 01:31 03:03 03:31 Temperature Pulse Rate 70 Respiratory 12 Rate Blood Pressure 117/68 128/61 122/59 O2 Sat by Pulse 100 99 98 Oximetry 06/09/19 06/09/19 06/09/19 04:00 04:31 05:01 Temperature Pulse Rate 51 L 50 L 58 L Respiratory 20 16 21 Rate Blood Pressure 125/57 136/64 125/57 O2 Sat by Pulse 97 98 98 Oximetry 06/09/19 05:30 Temperature Pulse Rate 53 L Respiratory 16 Rate Blood Pressure 126/57 O2 Sat by Pulse 99 Oximetry GENOVEVA score - Genoveva Score Age > 65: (0) No Aspirin use within the Past 7 Days: (0) No 3 or more CAD Risk Factors: (0) No 2 or more Angina events in past 24 hrs: (1) Yes Known CAD with more than 50% Stenosis: (0) No Elevated Cardiac Markers: (0) No ST Deviation Greater than 0.5mm: (0) No GENOVEVA Score: 1 ED Medical Decision Making - Lab Data Result diagrams: 06/08/19 23:48 06/08/19 23:48 Lab Results 06/08/19 06/08/19 06/08/19 Range/Units 23:48 23:48 23:48 WBC 7.9 (4.5-11.0) K/mm3 RBC 4.60 (3.65-5.03) M/mm3 Hgb 13.9 (10.1-14.3) gm/dl Hct 41.4 (30.3-42.9) % MCV 90 (79-97) fl MCH 30 (28-32) pg MCHC 34 (30-34) % RDW 14.2 (13.2-15.2) % Plt Count 286 (140-440) K/mm3 Lymph % (Auto) 35.7 H (13.4-35.0) % Rock % (Auto) 6.9 (0.0-7.3) % Eos % (Auto) 1.4 (0.0-4.3) % Baso % (Auto) 0.8 (0.0-1.8) % Lymph # 2.8 (1.2-5.4) K/mm3 Rock # 0.5 (0.0-0.8) K/mm3 Eos # 0.1 (0.0-0.4) K/mm3 Baso # 0.1 (0.0-0.1) K/mm3 Seg Neutrophils % 55.2 (40.0-70.0) % Seg Neutrophils # 4.4 (1.8-7.7) K/mm3 PT 13.1 (12.2-14.9) Sec. INR 0.98 (0.87-1.13) APTT 25.5 (24.2-36.6) Sec. Sodium 139 (137-145) mmol/L Potassium 4.2 (3.6-5.0) mmol/L Chloride 106.1 (98-107) mmol/L Carbon Dioxide 21 L (22-30) mmol/L Anion Gap 16 mmol/L BUN 17 (7-17) mg/dL Creatinine 0.8 (0.7-1.2) mg/dL Estimated GFR > 60 ml/min BUN/Creatinine Ratio 21 % Glucose 90 (65-100) mg/dL Calcium 9.6 (8.4-10.2) mg/dL Total Bilirubin < 0.20 (0.1-1.2) mg/dL AST 13 (5-40) units/L ALT 12 (7-56) units/L Alkaline Phosphatase 63 (35-129) units/L Troponin T < 0.010 (0.00-0.029) ng/mL Total Protein 7.4 (6.3-8.2) g/dL Albumin 4.3 (3.9-5) g/dL Albumin/Globulin Ratio 1.4 % Lipase (13-60) units/L HCG, Qual (Negative) 06/08/19 06/09/19 06/09/19 Range/Units 23:48 03:29 Unknown WBC (4.5-11.0) K/mm3 RBC (3.65-5.03) M/mm3 Hgb (10.1-14.3) gm/dl Hct (30.3-42.9) % MCV (79-97) fl MCH (28-32) pg MCHC (30-34) % RDW (13.2-15.2) % Plt Count (140-440) K/mm3 Lymph % (Auto) (13.4-35.0) % Rock % (Auto) (0.0-7.3) % Eos % (Auto) (0.0-4.3) % Baso % (Auto) (0.0-1.8) % Lymph # (1.2-5.4) K/mm3 Rock # (0.0-0.8) K/mm3 Eos # (0.0-0.4) K/mm3 Baso # (0.0-0.1) K/mm3 Seg Neutrophils % (40.0-70.0) % Seg Neutrophils # (1.8-7.7) K/mm3 PT (12.2-14.9) Sec. INR (0.87-1.13) APTT (24.2-36.6) Sec. Sodium (137-145) mmol/L Potassium (3.6-5.0) mmol/L Chloride (98-107) mmol/L Carbon Dioxide (22-30) mmol/L Anion Gap mmol/L BUN (7-17) mg/dL Creatinine (0.7-1.2) mg/dL Estimated GFR ml/min BUN/Creatinine Ratio % Glucose (65-100) mg/dL Calcium (8.4-10.2) mg/dL Total Bilirubin (0.1-1.2) mg/dL AST (5-40) units/L ALT (7-56) units/L Alkaline Phosphatase (35-129) units/L Troponin T < 0.010 (0.00-0.029) ng/mL Total Protein (6.3-8.2) g/dL Albumin (3.9-5) g/dL Albumin/Globulin Ratio % Lipase 47 (13-60) units/L HCG, Qual Negative (Negative) - EKG Data -: EKG Interpreted by Nv EKG shows normal: sinus rhythm, ST-T waves (no stemi) Rate: normal (69) - Radiology Data Radiology results: report reviewed CT chest wo con INDICATION / CLINICAL INFORMATION: MAIN: cp, syncope, hx of aortic disection repair and pe, ER unable to obtain IV Access. TECHNIQUE: Axial CT imaging of the chest was obtained without contrast. Coronal and sagittal reformatted imaging obtained and reviewed. All CT scans at this location are performed using CT dose reduction for ALARA by means of automated exposure control. COMPARISON: Prior CTA chest, 06/22/2018 FINDINGS: For noncontrast exam, the mediastinum is unremarkable. No obvious hilar or mediastinal mass. Endovascular graft is present throughout the descending thoracic aorta. No evidence of aneurysm. Heart size is normal. No pericardial effusion. Both lungs are well-expanded and clear. No evidence for pulmonary mass, significant parenchymal disease, or pleural effusion. Images of the upper abdomen are grossly unremarkable. No significant skeletal abnormality. IMPRESSION: 1. No acute abnormality noted on this noncontrasted CT of the thorax. 2. Unremarkable appearance of the endovascular graft within the descending thoracic aorta. 3. Please note that a noncontrast exam cannot evaluate for the possibility of pulmonary embolism and/or aortic dissection. CT head/brain wo con INDICATION / CLINICAL INFORMATION: syncope, hx of pe and aortic disection repair. TECHNIQUE: Axial CT imaging of brain was obtained without contrast. Coronal and sagittal reformatted imaging obtained and reviewed. All CT scans at this location are performed using CT dose reduction for ALARA by means of automated exposure control. COMPARISON: Prior head CT, 06/22/2018 FINDINGS: No intracranial hemorrhage, mass, or midline shift. No extra-axial fluid collection or suggestion for acute territorial infarction. Ventricular system and basilar cisterns are unremarkable. Visualized paranasal sinuses and mastoid air cells are well aerated and clear. No calvarial abnormality. IMPRESSION: 1. No acute intracranial abnormality. - Medical Decision Making Patient received several doses of IV morphine and does not appear in any acute distress and is resting comfortably. Patient requesting additional medication for nausea with no episodes of vomiting in the ED. Clinically chest pain was reproducible with palpation to the anterior chest and worse with movement. CT head and noncontrast CT chest was unremarkable. Patient has a known history of PE/DVT with IVC filter and is chronically on Coumadin with chronic noncompliance as per medical record. INR once again is subtherapeutic. Patient requesting admission due to subtherapeutic INR without signs of hypoxia or respiratory distress. Patient informed that she needs to continue her Coumadin, follow-up in clinic, and we do not necessarily admit just secondary to low INR level. Patient off her Lovenox but now states that she is allergic. Patient requesting additional nausea medication and pain medicine and to complete her liter normal saline prior to discharge. Labs and clinical exam does not reveal significant dehydration. Patient also has a known psychiatric disorder. Patient at this time does not have any findings of cardiopulmonary instability, CO, or hypoxia and is encouraged to follow-up. She is requesting additional refill and tramadol and that alternative medication for nausea. - Differential Diagnosis disection, mi, pe, unstable angina, costochondritis, atypical cp, psych d/o Critical Care Time: No Critical care attestation.: If time is entered above; I have spent that time in minutes in the direct care of this critically ill patient, excluding procedure time. 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 You need to follow up with your coumadin clinic and tow motor driver for coumadin adjustment. Take the coumadin as prescribed. Follow-up with your doctor or doctor/clinic provided. Return if symptoms worsen as indicated by your discharge instructions. Prescriptions: Promethazine [Phenergan] 25 mg PO Q8HR PRN #14 tab PRN Reason: Nausea traMADoL [Ultram 50 MG tab] 50 mg PO Q6HR PRN #15 tablet PRN Reason: Pain Referrals: your, tow motor driver [Other] - 3-5 Days PRIMARY CARE,MD [Primary Care Provider] - 2-3 Days
[2019-06-09 00:50] LABS: Alanine Aminotransferase 12 units/L (7-56); Albumin 4.3 g/dL (3.9-5); BUN/Creatinine Ratio 21; Blood Urea Nitrogen 17 mg/dL (7-17); Calcium 9.6 mg/dL (8.4-10.2); Hemolysis Index 10
--- NOTE | 2019-06-09 03:25 | Cat Scan Report ---
CT head/brain wo con INDICATION / CLINICAL INFORMATION: syncope, hx of pe and aortic disection repair. TECHNIQUE: Axial CT imaging of brain was obtained without contrast. Coronal and sagittal reformatted imaging obt ained and reviewed. All CT scans at this location are performed using CT dose reduction for ALARA by means of automated exposure control. COMPARISON: Prior head CT, 06/22/2018 FINDINGS: No intracranial hemorrhage, mass, or midline shift. No extra-axial fluid collection or suggestion for acute territorial infarction. Ventricular system and basilar cisterns are unremarkable. Visualized paranasal sinuses and mastoid air cells are well aerated and clear. No calvarial abnormali ty. IMPRESSION: 1. No acute intracranial abnormality. Signer Name: Rosaline Holguin MD Signed: 06/09/2019 3:21 AM Workstation Name: [id number]
--- NOTE | 2019-06-09 03:31 | Cat Scan Report ---
CT chest wo con INDICATION / CLINICAL INFORMATION: MAIN: cp, syncope, hx of aortic disection repair and pe, ER unable to obtain IV Access. TECHNIQUE: Axial CT imaging of the chest was obtained without contrast. Coronal and sagittal reformatted imaging obtained and reviewed. All CT scans at this location are performed using CT dose reduction for ALAR A by means of automated exposure control. COMPARISON: Prior CTA chest, 06/22/2018 FINDINGS: For noncontrast exam, the mediastinum is unremarkable. No obvious hilar or mediastinal mass. Endovasc ular graft is present throughout the descending thoracic aorta. No evidence of aneurysm. Heart size is normal. No pericardial effusion. Both lungs are well-expanded and clear. No evidence for pulmonary mass, significant parenchymal disea se, or pleural effusion. Images of the upper abdomen are grossly unremarkable. No significant skeletal abnormality. IMPRESSION: 1. No acute abnormality noted on this noncontrasted CT of the thorax. 2. Unremarkable appearance of the endovascular graft within the descending thoracic aorta. 3. Please note that a noncontrast exam cannot evaluate for the possibility of pulmonary embolism and/ or aortic dissection. Signer Name: Rosaline Holguin MD Signed: 06/09/2019 3:26 AM Workstation Name: [id number]
[2019-06-09 07:00] VITALS: BP 126/57
== END 2019-06-09 06:55 | disposition admitted as inpatient to this hospital (09) ==
LOC: ED 23:33
DX: R07.89 Other chest pain (principal); R11.2 Nausea with vomiting, unspecified; R55 Syncope and collapse; I10 Essential (primary) hypertension; I25.2 Old myocardial infarction; K21.9 Gastro-esophageal reflux disease without esophagitis; R56.9 Unspecified convulsions; F41.9 Anxiety disorder, unspecified; I31.9 Disease of pericardium, unspecified; E05.90 Thyrotoxicosis, unspecified without thyrotoxic crisis or storm; Z86.711 Personal history of pulmonary embolism; Z86.718 Personal history of other venous thrombosis and embolism; Z87.891 Personal history of nicotine dependence; Z79.899 Other long term (current) drug therapy; Z98.890 Other specified postprocedural states; Z88.0 Allergy status to penicillin; Z88.8 Allergy status to other drugs, medicaments and biological substances; Z91.018 Allergy to other foods
CPT/HCPCS: 36415; 70450; 71250; 80053; 83690; 84484; 84703; 85025; 85610; 85730; 93005; 93010; 96361; 96374; 96375; 96376; 99284; J2270; J2405; J7030

== ENCOUNTER 2019-06-15 21:07 | Emergency (ER) | payer MEDICAID ==
[2019-06-15 22:01] LABS: Basophils # (Auto) 0.1 K/mm3 (0.0-0.1); Eosinophils # (Auto) 0.1 K/mm3 (0.0-0.4); Eosinophils % (Auto) 2.4 % (0.0-4.3); Hematocrit 38.3 % (30.3-42.9); Hemoglobin 12.8 gm/dl (10.1-14.3); Lymphocytes % (Auto) 34.6 % (13.4-35.0); Mean Corpuscular HGB Conc 33 % (30-34); Mean Corpuscular Volume 89 fl (79-97); Monocytes # (Auto) 0.5 K/mm3 (0.0-0.8); Monocytes % (Auto) 9.2 % (0.0-7.3); Platelet Count 257 K/mm3 (140-440); Red Blood Count 4.29 M/mm3 (3.65-5.03); Red Cell Distribution Width 13.9 % (13.2-15.2)
[2019-06-15 22:11] LABS: INR 0.98 (0.87-1.13)
[2019-06-15 22:16] LABS: BUN/Creatinine Ratio 18; Blood Urea Nitrogen 14 mg/dL (7-17); Calcium 9.3 mg/dL (8.4-10.2); Hemolysis Index 91
--- NOTE | 2019-06-15 22:56 | XRay Report ---
CHEST 1 VIEW 2227 INDICATION / CLINICAL INFORMATION: MAIN: Chest Pain [id number]. COMPARISON: 11/25/2018 FINDINGS: SUPPORT DEVICES: None HEART / MEDIASTINUM: Aortic stent is again seen. Heart size appears within normal limits. LUNGS / PLEURA: No significant pulmonary or pleural abnormality. No pneumothorax. ADDITIONAL FINDINGS: No significant additional findings. IMPRESSION: No significant acute abnormality Signer Name: Mario Travis MD Signed: 06/15/2019 10:52 PM Workstation Name: [id number]
[2019-06-16] MEDS ORDERED: MORPHINE 4 MG/1 ML INJ IV ONE ×2 (00:09→03:03)
[2019-06-16] MEDS ORDERED: ONDANSETRON 4 MG/2 ML INJ IV ONE ×2 (00:09→02:00)
[2019-06-16] MEDS ORDERED: SODIUM CHLORIDE 0.9% 1000 ML 1,000 ML IV ONE (00:16)
[2019-06-16 01:27] VITALS: BP 134/67
--- NOTE | 2019-06-16 01:37 | Emergency Department Report ---
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 Symptoms have been going on for at least 1 month. Patient was seen by me on June 08 with the same complaint. Patient complains of constant anterior chest pain that is worse with movement and palpation with shortness of breath. Patient also stating she is still passing out and passed out today. Patient states she is compliant with her Coumadin 7.5 mg daily initiated good double dose x1 after subtherapeutic INR during recent ED visit. Patient denies cough or fever. Patient states she has several appointments in the middle of June with her doctors affiliated with the [facility]. Patient states she sees a equipment tester, neurologist, agricultural equipment test engineer, and a primary care doctor. Patient has history of medication noncompliance and similar complaints upon medical record review. Patient now claims to be allergic/have adverse reactions to Xarelto, Eliquis, and Lovenox and is requesting heparin due to subtherapeutic INR. Patient has been taking tramadol as outpatient for similar pain but complains that she continues to have pain despite the medication PT HAS HAD THE SAME STORY AND PRESENTATION WITH ED VISITS FOR GREATER THAN 1 YEAR INCLUDING HER PLAN TO F/U WITH [facility]. SHE DID HAVE A SADDLE PE 02/2018 TX WITH EKOS BUT SUBSEQUENT CTA'S HAVE BEEN NEGATIVE. NEGATIVE STRESS TEST 05/25/17 Severity scale (0 -10): 10 - Related Data Previous Rx's Medication Instructions Recorded Last Taken Type ALPRAZolam [Xanax TAB] 0.5 mg PO BID #20 tablet 11/29/18 Unknown Rx Ondansetron [Zofran ODT TAB] 4 mg PO Q8HR #10 tab.rapdis 11/29/18 Unknown Rx Pantoprazole [Protonix TAB] 20 mg PO QDAY #30 tablet. 11/29/18 Unknown Rx Pregabalin 100 mg PO QAM #30 capsule 11/29/18 Unknown Rx QUEtiapine [SEROquel] 100 mg PO DAILY #10 tablet 11/29/18 Unknown Rx Warfarin [Coumadin] 7.5 mg PO QDAY #30 tablet 11/29/18 Unknown Rx carvediloL [Coreg] 3.125 mg PO BID #60 tablet 11/29/18 Unknown Rx levETIRAcetam [Keppra TAB] 500 mg PO BID #60 tablet 11/29/18 Unknown Rx lisinopriL [Zestril TAB] 5 mg PO QDAY #30 tablet 11/29/18 Unknown Rx methIMAzole [Tapazole] 5 mg PO Q8H #90 tab 11/29/18 Unknown Rx propranoloL [Inderal] 20 mg PO BID #60 tablet 11/29/18 Unknown Rx Promethazine [Phenergan] 25 mg PO Q8HR PRN #14 tab 06/09/19 Unknown Rx traMADoL [Ultram 50 MG tab] 50 mg PO Q6HR PRN #15 tablet 06/09/19 Unknown Rx Allergies Allergy/AdvReac Type Severity Reaction Status Date / Time garlic Allergy Unknown Verified 07/15/18 09:11 ibuprofen [From Motrin] Allergy Unknown Verified 07/15/18 09:11 oxycodone [From Percocet] Allergy Itching Verified 07/15/18 09:11 peanut oil Allergy Unknown Verified 07/15/18 09:11 Penicillins Allergy Unknown Verified 07/15/18 09:11 Heart Score - HEART Score History: Slightly suspicious EKG: Normal Age: < 45 Risk factors: > 3 risk factors or hx of atherosclerotic disease Troponin: < normal limit HEART Score: 2 ED Review of Systems ROS: Stated complaint: DIZZINESS/CHEST PAIN/EMESIS Other details as noted in HPI Comment: All other systems reviewed and negative ED Past Medical Hx - Past Medical History Previous Medical History?: Yes Hx Hypertension: Yes Hx Heart Attack/AMI: (normal stress 10-31-16, normal perfusion scan May 2017) Hx Congestive Heart Failure: No Hx Diabetes: No Hx Deep Vein Thrombosis: Yes Hx Pulmonary Embolism: Yes Hx GERD: Yes Hx Sickle Cell Disease: No Hx Seizures: Yes Hx Psychiatric Treatment: Yes (anxiety) Hx Asthma: No Hx COPD: No Hx Tuberculosis: No Hx HIV: No Additional medical history: pericarditis, pt states hyperthyroidism, thyroid storm, PE x2, (R lung 05/2016, L lung 01/2017--on coumadin), R leg DVT 03/2017, Graves Disease, heart murmur, aortic dissection - Surgical History Past Surgical History?: Yes Hx Coronary Stent: Yes Hx Pacemaker: No Hx Internal Defibrillator: No Additional Surgical History: Left arm surgery 02/2017, Right knee, Rt leg. 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, Alaina Filter - Social History Smoking Status: Light Tobacco Smoker Substance Use Type: None - Medications Home Medications: Home Medications Medication Instructions Recorded Confirmed Last Taken Type ALPRAZolam [Xanax TAB] 0.5 mg PO BID #20 tablet 11/29/18 Unknown Rx Ondansetron [Zofran ODT TAB] 4 mg PO Q8HR #10 tab.rapdis 11/29/18 Unknown Rx Pantoprazole [Protonix TAB] 20 mg PO QDAY #30 tablet.dr 11/29/18 Unknown Rx Pregabalin 100 mg PO QAM #30 capsule 11/29/18 Unknown Rx QUEtiapine [SEROquel] 100 mg PO DAILY #10 tablet 11/29/18 Unknown Rx Warfarin [Coumadin] 7.5 mg PO QDAY #30 tablet 11/29/18 Unknown Rx carvediloL [Coreg] 3.125 mg PO BID #60 tablet 11/29/18 Unknown Rx levETIRAcetam [Keppra TAB] 500 mg PO BID #60 tablet 11/29/18 Unknown Rx lisinopriL [Zestril TAB] 5 mg PO QDAY #30 tablet 11/29/18 Unknown Rx methIMAzole [Tapazole] 5 mg PO Q8H #90 tab 11/29/18 Unknown Rx propranoloL [Inderal] 20 mg PO BID #60 tablet 11/29/18 Unknown Rx Promethazine [Phenergan] 25 mg PO Q8HR PRN #14 tab 06/09/19 Unknown Rx traMADoL [Ultram 50 MG tab] 50 mg PO Q6HR PRN #15 tablet 06/09/19 Unknown Rx ED Physical Exam - General Limitations: No Limitations - Other Other exam information: General: No acute distress Head: Atraumatic Eyes: normal appearance ENT: Moist mucous membranes Neck: Normal appearance, no midline tenderness Chest: Clear to auscultation bilaterally, anterior chest wall tenderness to palpate CV: Regular rate and rhythm Abdomen: Soft, normal bowel sounds, nontender, nondistended, no rebound or guarding Back: Normal inspection Extremity: Normal inspection, full range of motion, no calf tenderness or leg edema Neuro: Alert O x 3, no facial asymmetry, speech clear, no gross motor sensory deficit Psych: Appropriate behavior Skin: No rash ED Course Vital Signs 06/15/19 06/15/19 06/15/19 21:20 22:21 23:00 Temperature 98.3 F Pulse Rate 72 64 58 L Respiratory 18 12 21 Rate Blood Pressure 145/77 138/74 138/74 O2 Sat by Pulse 100 100 99 Oximetry 06/16/19 06/16/19 00:00 01:01 Temperature Pulse Rate 56 L 53 L Respiratory 18 18 Rate Blood Pressure 125/60 134/67 O2 Sat by Pulse 99 96 Oximetry - Procedure Description Procedures done: several failed attempt of perpheral access using US in right upper arm. area prepped with alcohol and chloroprep, sterile lubericant used, probe disinfected with wipes prior to procedure. no post procedure hematoma, swelling, or bleeding. LEI score - Lei Score Age > 65: (0) No Aspirin use within the Past 7 Days: (0) No 3 or more CAD Risk Factors: (1) Yes 2 or more Angina events in past 24 hrs: (1) Yes Known CAD with more than 50% Stenosis: (0) No Elevated Cardiac Markers: (0) No ST Deviation Greater than 0.5mm: (0) No LEI Score: 2 ED Medical Decision Making - Lab Data Result diagrams: 06/15/19 21:38 06/15/19 21:38 Lab Results 06/15/19 06/15/19 06/15/19 Range/Units 21:38 21:38 21:38 WBC 5.6 (4.5-11.0) K/mm3 RBC 4.29 (3.65-5.03) M/mm3 Hgb 12.8 (10.1-14.3) gm/dl Hct 38.3 (30.3-42.9) % MCV 89 (79-97) fl MCH 30 (28-32) pg MCHC 33 (30-34) % RDW 13.9 (13.2-15.2) % Plt Count 257 (140-440) K/mm3 Lymph % (Auto) 34.6 (13.4-35.0) % Coal % (Auto) 9.2 H (0.0-7.3) % Eos % (Auto) 2.4 (0.0-4.3) % Baso % (Auto) 1.0 (0.0-1.8) % Lymph # 2.0 (1.2-5.4) K/mm3 Coal # 0.5 (0.0-0.8) K/mm3 Eos # 0.1 (0.0-0.4) K/mm3 Baso # 0.1 (0.0-0.1) K/mm3 Seg Neutrophils % 52.8 (40.0-70.0) % Seg Neutrophils # 3.0 (1.8-7.7) K/mm3 PT 13.1 (12.2-14.9) Sec. INR 0.98 (0.87-1.13) APTT 22.0 L (24.2-36.6) Sec. Sodium 139 (137-145) mmol/L Potassium 4.6 (3.6-5.0) mmol/L Chloride 106.1 (98-107) mmol/L Carbon Dioxide 23 (22-30) mmol/L Anion Gap 15 mmol/L BUN 14 (7-17) mg/dL Creatinine 0.8 (0.7-1.2) mg/dL Estimated GFR > 60 ml/min BUN/Creatinine Ratio 18 % Glucose 87 (65-100) mg/dL Calcium 9.3 (8.4-10.2) mg/dL Troponin T < 0.010 (0.00-0.029) ng/mL HCG, Qual (Negative) 06/15/19 06/16/19 06/16/19 Range/Units 21:38 00:33 03:32 WBC (4.5-11.0) K/mm3 RBC (3.65-5.03) M/mm3 Hgb (10.1-14.3) gm/dl Hct (30.3-42.9) % MCV (79-97) fl MCH (28-32) pg MCHC (30-34) % RDW (13.2-15.2) % Plt Count (140-440) K/mm3 Lymph % (Auto) (13.4-35.0) % Coal % (Auto) (0.0-7.3) % Eos % (Auto) (0.0-4.3) % Baso % (Auto) (0.0-1.8) % Lymph # (1.2-5.4) K/mm3 Coal # (0.0-0.8) K/mm3 Eos # (0.0-0.4) K/mm3 Baso # (0.0-0.1) K/mm3 Seg Neutrophils % (40.0-70.0) % Seg Neutrophils # (1.8-7.7) K/mm3 PT (12.2-14.9) Sec. INR (0.87-1.13) APTT (24.2-36.6) Sec. Sodium (137-145) mmol/L Potassium (3.6-5.0) mmol/L Chloride (98-107) mmol/L Carbon Dioxide (22-30) mmol/L Anion Gap mmol/L BUN (7-17) mg/dL Creatinine (0.7-1.2) mg/dL Estimated GFR ml/min BUN/Creatinine Ratio % Glucose (65-100) mg/dL Calcium (8.4-10.2) mg/dL Troponin T < 0.010 < 0.010 (0.00-0.029) ng/mL HCG, Qual Negative (Negative) - EKG Data -: EKG Interpreted by Ar EKG shows normal: sinus rhythm, ST-T waves (No STEMI) Rate: normal - EKG Data When compared to previous EKG there are: no significant change 06/16/19 04:18 pt had 3 total ekgs in ed. they all show some diffuse mild st elevation. NO ACUTE CHANGES OR RECIPROCAL CHANGES. These findings are also similar to previous ekgs on record. - Radiology Data Radiology results: report reviewed CHEST 1 VIEW 2223 INDICATION / CLINICAL INFORMATION: MAIN: Chest Pain [id number]. COMPARISON: 11/25/2018 FINDINGS: SUPPORT DEVICES: None HEART / MEDIASTINUM: Aortic stent is again seen. Heart size appears within normal limits. LUNGS / PLEURA: No significant pulmonary or pleural abnormality. No pneumothorax. ADDITIONAL FINDINGS: No significant additional findings. IMPRESSION: No signific ant acute abnormality CTA CHEST WITH IV CONTRAST INDICATION: Chest pain, syncope, hx of pte, aortic graft CONTRAST: 100 cc Omnipaque 350 IV COMPARISON: Noncontrast CT chest 06/09/2019, CTA chest 06/22/2018 Three-plane MIP reconstructions were produced. All CT scans at this location are performed using CT dose reduction for ALARA by means of automated exposure control. FINDINGS: No significant axillary or chest wall lesions are seen. No mediastinal or hilar masses are seen. Visualized portions of the upper abdomen show no significant abnormalities. No pleural eff usions are seen. No obvious endobronchial lesions are noted. No pneumothorax or pneumomediastinum are seen. No pulmonary nodules or masses are noted. No areas of consolidation are seen. Mild atelectatic changes are noted in the lung bases, more on the left. Aorta shows again the descending segment stent graft. Good flow is seen through the graft. No aneurysmal dilatation or evidence of dissection is seen. Good flow is seen in the major branches. Good opacification of the pulmonary arterial system was achieved. I do not see evidence of pulmonary thromboembolism. IMPRESSION: No acute abnormalities are seen - Medical Decision Making as per medical record pt has hx of substance abuse with opiods and chronic anticoagulation noncompliance. Apparently the [place] system is also very familiar with pt's narcotic abuse and med noncompliance. It is also noted that pt also has been diagnosed frequently with musculoskeletal chest pain Pt endorses sx of syncope, cp, n,v x 1 month. Pt has had similar compaints multiple times in the past for greater than 1 year. Upon patient arrival she once again asked for IV fluids because she is "dehydrated" and IV pain medicine because the tramadol is not working and she is allergic to oxycodone, acetaminophen, and ibuprofen. Chest pain is reproducible on exam with palpation and sitting up in the bed no syncope, arrhythmias, or vomiting during ed period of cardiac monitoring ekg nsr x 3 without acute ischemic changes trop neg x 3 Patient has very poor peripheral vascular access and required a right femoral ce ntral line in order to obtain CTA chest (multiple failed us guided perpheral iv access attempts on the left arm and IV team not available at night) Pt also initially requesting admission for heparin due to low INR. I Suspect that patient is not taking the medication in order to try to be admitted to the hospital with subtherapeutic levels. Upon patient's multiple visits she has chronic subtherapeutic inr levels on Coumadin. Now patient reports adverse reactions to all anticoagulants with exception of Coumadin and heparin. At this time patient does not have any clinical signs of DVT and has a negative CT angiogram for pulmonary embolism and no acute abnormality of the aorta. Chest pain remains reproducible on examination and worse with movement. No hypoxia or tachycardia. Patient received morphine and Zofran for pain via central line. After Morphine injection pt initially refused blood draw from central line due to fear that the blood draw will suck out the pain medicatoin. Pt states she has several scheduled visits with her Doctors affiliated with the [facility] on [facility] including a equipment tester, neurologist, and primary care around July 04. At this time I do not have a clinical indication to admit the pt. Symptoms are chronic and ongoing with ED workup negative for acute disease. I suspect drug seeking behavior and chronic noncompliance. [facility] PRESCRIPTION MONITORING SITE REVIEWED. PT LAST FILLED TRAMDAL SCRIPT ON 04/18/19 FOR 12 TABS SHE HAS NOT FILLED THE SCRIPT I WROTE ON 06/09/19 therefore no new script sammy be provided at this time once again f/u with her doctors will be encouraged central line will be d/tanya prior to discharge. AT DISCHARGE PT REQUESTING TYLENOL. . . THIS IS MENTIONED AN ALLERGY PER HER MEDICAL RECORD. PT STATES SHE CAN TAKE TYLENOL THEREFORE I WILL REMOVE IT FROM HER ALLERGY LIST - Differential Diagnosis DRUG SEEKING, PE, ACS, dissection, costochondritis Critical Care Time: No Critical care attestation.: If time is entered above; I have spent that time in minutes in the direct care of this critically ill patient, excluding procedure time. 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 Follow-up with your doctor or doctor/clinic provided. Return if symptoms worsen as indicated by your discharge instructions. Referrals: PRIMARY CAREMD [Primary Care Provider] - 3-5 Days [facility] [Provider Group] - 3-5 Days (cardiology ) Time of Disposition: :30
--- NOTE | 2019-06-16 01:38 | Cat Scan Report ---
CTA CHEST WITH IV CONTRAST INDICATION: Chest pain, syncope, hx of pte, aortic graft CONTRAST: 100 cc Omnipaque 350 IV COMPARISON: Noncontrast CT chest 06/09/2019, CTA chest 06/22/2018 Three-plane MIP reconstructions were produced. All CT scans at this location are performed using CT d ose reduction for ALARA by means of automated exposure control. FINDINGS: No significant axillary or chest wall lesions are seen. No mediastinal or hilar masses are seen. Visualized portions of the upper abdomen show no significant abnormalities. No pleural effusion s are seen. No obvious endobronchial lesions are noted. No pneumothorax or pneumomediastinum are seen . No pulmonary nodules or masses are noted. No areas of consolidation are seen. Mild atelectatic hammer ges are noted in the lung bases, more on the left. Aorta shows again the descending segment stent graft. Good flow is seen through the graft. No aneurys mal dilatation or evidence of dissection is seen. Good flow is seen in the major branches. Good opacification of the pulmonary arterial system was achieved. I do not see evidence of pulmonary thromboembolism. IMPRESSION: No acute abnormalities are seen Signer Name: Mario Travis MD Signed: 06/16/2019 1:34 AM Workstation Name: [id number]
[2019-06-16] MEDS ORDERED: ACETAMINOPHEN 325 MG TAB PO ONE (04:37)
== END 2019-06-16 05:10 | disposition home or self-care (01) ==
LOC: ED 21:07
DX: M94.0 Chondrocostal junction syndrome [Tietze] (principal); R07.89 Other chest pain; R11.2 Nausea with vomiting, unspecified; I10 Essential (primary) hypertension; K21.9 Gastro-esophageal reflux disease without esophagitis; R56.9 Unspecified convulsions; F41.9 Anxiety disorder, unspecified; F17.200 Nicotine dependence, unspecified, uncomplicated; Z86.711 Personal history of pulmonary embolism; Z79.899 Other long term (current) drug therapy; Z98.890 Other specified postprocedural states; Z88.0 Allergy status to penicillin; Z88.8 Allergy status to other drugs, medicaments and biological substances; Z91.018 Allergy to other foods
CPT/HCPCS: 36415; 71045; 71275; 80048; 84484; 84703; 85025; 85610; 85730; 93005; 96361; 96374; 96375; 96376; 99285; J2270; J2405; J7030; Q9967

== ENCOUNTER 2019-06-18 12:35 | Emergency (ER) | payer MEDICAID ==
--- NOTE | 2019-06-18 13:23 | XRay Report ---
CHEST 1 VIEW 06/18/2019 1:11 PM INDICATION / CLINICAL INFORMATION: Chest Pain. COMPARISON: Chest x-ray 06/15/2019 FINDINGS: SUPPORT DEVICES: None. HEART / MEDIASTINUM: No significant abnormality. Descending thoracic aortic graft, unchanged. LUNGS / PLEURA: No significant pulmonary or pleural abnormality. No pneumothorax. ADDITIONAL FINDINGS: No significant additional findings. IMPRESSION: 1. No acute findings. Signer Name: Chris Dowd MD Signed: 06/18/2019 1:19 PM Workstation Name: [id number]
--- NOTE | 2019-06-18 13:27 | Event Note ---
ED Screening Note ED Screening Note: [facility] is outpt follow up recent stents a/c cp This initial assessment/diagnostic orders/clinical plan/treatment(s) is/are subject to change based on patients health status, clinical progression and re- assessment by fellow clinical providers in the ED. Further treatment and workup at subsequent clinical providers discretion. Patient/guardian urged not to elope from the ED as their condition may be serious if not clinically assessed and managed. Initial orders include: ro ACS
[2019-06-18] MEDS: PROMETHAZINE 25 MG TAB PO ONE (14:44)
[2019-06-18] MEDS: ACETAMINOPHEN 325 MG TAB PO ONE (14:44)
[2019-06-18 15:16] LABS: Hematocrit 41.1 % (30.3-42.9); Hemoglobin 13.1 gm/dl (10.1-14.3); Mean Corpuscular HGB Conc 32 % (30-34); Mean Corpuscular Volume 93 fl (79-97); Platelet Count 243 K/mm3 (140-440); Red Blood Count 4.43 M/mm3 (3.65-5.03); Red Cell Distribution Width 14.5 % (13.2-15.2)
[2019-06-18 15:18] LABS: INR 0.96 (0.87-1.13)
[2019-06-18 15:25] LABS: BUN/Creatinine Ratio 13; Blood Urea Nitrogen 12 mg/dL (7-17); Calcium 9.2 mg/dL (8.4-10.2); Hemolysis Index 24
--- NOTE | 2019-06-18 16:32 | Emergency Department Report ---
ED General Adult HPI - General Chief complaint: Chest Pain Stated complaint: CHEST PAIN/VOMIT Time Seen by Provider: 06/18/19 13:26 Source: patient Mode of arrival: Ambulatory Limitations: No Limitations - History of Present Illness Initial comments: Patient is a 38-year-old F [place] Citizen female who has a history of multiple chronic medical conditions including PE who is currently on Coumadin and IVC filter therapy, history of descending thoracic aortic dissection, diabetes, anxiety, pericarditis and opiate addiction who is presenting with chest pain and syncope. Patient states she has had intermittent nausea vomiting as well. Patient of note was here 2 days ago and also June 08 with the same complaint. Patient states that her Coumadin level was suggested because of low INR levels. Patient states that she just left the [facility]. 2 days ago patient states that her appointment with [facility] was not until middle of June. 2 days ago patient had several negative troponin levels. Patient also had a CTA performed which was negative. Review of the patient's chart shows that she has had numerous visits with this exact same story since 2016. Severity scale (0 -10): 0 - Related Data Previous Rx's Medication Instructions Recorded Last Taken Type ALPRAZolam [Xanax TAB] 0.5 mg PO BID #20 tablet 11/29/18 Unknown Rx Ondansetron [Zofran ODT TAB] 4 mg PO Q8HR #10 tab.arthur 11/29/18 Unknown Rx Pantoprazole [Protonix TAB] 20 mg PO QDAY #30 tablet. 11/29/18 Unknown Rx Pregabalin 100 mg PO QAM #30 capsule 11/29/18 Unknown Rx QUEtiapine [SEROquel] 100 mg PO DAILY #10 tablet 11/29/18 Unknown Rx Warfarin [Coumadin] 7.5 mg PO QDAY #30 tablet 11/29/18 Unknown Rx carvediloL [Coreg] 3.125 mg PO BID #60 tablet 11/29/18 Unknown Rx levETIRAcetam [Keppra TAB] 500 mg PO BID #60 tablet 11/29/18 Unknown Rx lisinopriL [Zestril TAB] 5 mg PO QDAY #30 tablet 11/29/18 Unknown Rx methIMAzole [Tapazole] 5 mg PO Q8H #90 tab 11/29/18 Unknown Rx propranoloL [Inderal] 20 mg PO BID #60 tablet 11/29/18 Unknown Rx Promethazine [Phenergan] 25 mg PO Q8HR PRN #14 tab 06/09/19 Unknown Rx traMADoL [Ultram 50 MG tab] 50 mg PO Q6HR PRN #15 tablet 06/09/19 Unknown Rx Promethazine [Phenergan] 25 mg PO Q8HR PRN #10 tab 06/18/19 Unknown Rx Allergies Allergy/AdvReac Type Severity Reaction Status Date / Time garlic Allergy Unknown Verified 07/15/18 09:11 ibuprofen [From Motrin] Allergy Unknown Verified 07/15/18 09:11 oxycodone [From Percocet] Allergy Itching Verified 07/15/18 09:11 peanut oil Allergy Unknown Verified 07/15/18 09:11 Penicillins Allergy Unknown Verified 07/15/18 09:11 ED Review of Systems ROS: Stated complaint: CHEST PAIN/VOMIT Other details as noted in HPI Comment: All other systems reviewed and negative ED Past Medical Hx - Past Medical History Previous Medical History?: Yes Hx Hypertension: Yes Hx Heart Attack/AMI: (normal stress 10-31-16, normal perfusion scan May 2017) Hx Congestive Heart Failure: No Hx Diabetes: No Hx Deep Vein Thrombosis: Yes Hx Pulmonary Embolism: Yes Hx GERD: Yes Hx Sickle Cell Disease: No Hx Seizures: Yes Hx Psychiatric Treatment: Yes (anxiety) Hx Asthma: No Hx COPD: No Hx Tuberculosis: No Hx HIV: No Additional medical history: pericarditis, pt states hyperthyroidism, thyroid storm, PE x2, (R lung 05/2016, L lung 01/2017--on coumadin), R leg DVT 03/2017, Graves Disease, heart murmur, aortic dissection - Surgical History Past Surgical History?: Yes Hx Coronary Stent: Yes Hx Pacemaker: No Hx Internal Defibrillator: No Additional Surgical History: Left arm surgery 02/2017, Right knee, Rt leg. 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, [place] Filter - Social History Smoking Status: Never Smoker Substance Use Type: None - Medications Home Medications: Home Medications Medication Instructions Recorded Confirmed Last Taken Type ALPRAZolam [Xanax TAB] 0.5 mg PO BID #20 tablet 11/29/18 Unknown Rx Ondansetron [Zofran ODT TAB] 4 mg PO Q8HR #10 tab.rapdis 11/29/18 Unknown Rx Pantoprazole [Protonix TAB] 20 mg PO QDAY #30 tablet.dr 11/29/18 Unknown Rx Pregabalin 100 mg PO QAM #30 capsule 11/29/18 Unknown Rx QUEtiapine [SEROquel] 100 mg PO DAILY #10 tablet 11/29/18 Unknown Rx Warfarin [Coumadin] 7.5 mg PO QDAY #30 tablet 11/29/18 Unknown Rx carvediloL [Coreg] 3.125 mg PO BID #60 tablet 11/29/18 Unknown Rx levETIRAcetam [Keppra TAB] 500 mg PO BID #60 tablet 11/29/18 Unknown Rx lisinopriL [Zestril TAB] 5 mg PO QDAY #30 tablet 11/29/18 Unknown Rx methIMAzole [Tapazole] 5 mg PO Q8H #90 tab 11/29/18 Unknown Rx propranoloL [Inderal] 20 mg PO BID #60 tablet 11/29/18 Unknown Rx Promethazine [Phenergan] 25 mg PO Q8HR PRN #14 tab 06/09/19 Unknown Rx traMADoL [Ultram 50 MG tab] 50 mg PO Q6HR PRN #15 tablet 06/09/19 Unknown Rx Promethazine [Phenergan] 25 mg PO Q8HR PRN #10 tab 06/18/19 Unknown Rx ED Physical Exam - General Limitations: No Limitations General appearance: alert, in no apparent distress - Head Head exam: Present: atraumatic, normocephalic - Eye Eye exam: Present: normal appearance - ENT ENT exam: Present: mucous membranes moist - Neck Neck exam: Present: normal inspection - Respiratory Respiratory exam: Present: normal lung sounds bilaterally, chest wall tenderness. Absent: respiratory distress, wheezes, rales, rhonchi, stridor - Cardiovascular Cardiovascular Exam: Present: regular rate, normal rhythm, normal heart sounds. Absent: systolic murmur, diastolic murmur, rubs, gallop - GI/Abdominal GI/Abdominal exam: Present: soft, normal bowel sounds. Absent: distended, tenderness, guarding - Extremities Exam Extremities exam: Present: normal inspection - Back Exam Back exam: Present: normal inspection - Neurological Exam Neurological exam: Present: alert, oriented X3 - Psychiatric Psychiatric exam: Present: normal affect, normal mood - Skin Skin exam: Present: warm, dry, intact, normal color. Absent: rash ED Course Vital Signs 06/18/19 12:41 Temperature 97.4 F L Pulse Rate 65 Respiratory 16 Rate Blood Pressure 127/64 O2 Sat by Pulse 100 Oximetry ED Medical Decision Making - Lab Data Result diagrams: 06/18/19 14:48 06/18/19 14:48 Lab Results 06/18/19 06/18/19 06/18/19 Range/Units 14:48 14:48 14:48 WBC 5.8 (4.5-11.0) K/mm3 RBC 4.43 (3.65-5.03) M/mm3 Hgb 13.1 (10.1-14.3) gm/dl Hct 41.1 (30.3-42.9) % MCV 93 (79-97) fl MCH 30 (28-32) pg MCHC 32 (30-34) % RDW 14.5 (13.2-15.2) % Plt Count 243 (140-440) K/mm3 Lymph % (Auto) Photolith Operator [place] % (Auto) Photolith Operator Eos % (Auto) Photolith Operator Baso % (Auto) Photolith Operator Lymph # Photolith Operator [place] # Photolith Operator Eos # Photolith Operator Baso # Photolith Operator Seg Neutrophils % Photolith Operator Seg Neutrophils # Photolith Operator PT 12.9 (12.2-14.9) Sec. INR 0.96 (0.87-1.13) Sodium 137 (137-145) mmol/L Potassium 4.4 (3.6-5.0) mmol/L Chloride 104.3 (98-107) mmol/L Carbon Dioxide 20 L (22-30) mmol/L Anion Gap 17 mmol/L BUN 12 (7-17) mg/dL Creatinine 0.9 (0.7-1.2) mg/dL Estimated GFR > 60 ml/min BUN/Creatinine Ratio 13 % Glucose 79 (65-100) mg/dL Calcium 9.2 (8.4-10.2) mg/dL Troponin T < 0.010 (0.00-0.029) ng/mL - Medical Decision Making Patient is a 38-year-old F [place] Citizen female is presenting with chief complaint of chest discomfort and nausea vomiting with multiple episodes of syncope. Patient vital signs are within normal limits. Did not witness the patient vomiting here in the emergency department and she was able to swallow p.o. Phenergan with no issue. Patient's renal function is within normal limits and I see no evidence that the patient is dehydrated from multiple episodes of nausea vomiting. Patient also does not appear dehydrated at this time. I do question whether the patient is actually vomiting and unable to keep anything down. Regarding patient's chest pain the patient was ruled out for WI 2 days ago and also is continued to have a negative troponin. CT angiogram of the chest is within normal limits and showed no pulmonary embolus or evidence of dissection. Patient is calm and comfortable at this time. Patient does not show any evidence of acute [place] pulmonary embolus or dissection at this time. I do question whether the patient is having drug-seeking behavior. Patient's INR is subtherapeutic however review of the chart she has a history of being septic therapeutic anytime she is coming in as an outpatient. Do not believe that she is actually taking Coumadin as an outpatient. During times when she is admitted to the hospital her INR does show elevation in the therapeutic range. Critical care attestation.: If time is entered above; I have spent that time in minutes in the direct care of this critically ill patient, excluding procedure time. ED Disposition Clinical Impression: Nausea, Atypical chest pain, Subtherapeutic anticoagulation Disposition: DC-01 TO HOME OR SELFCARE Is pt being admited?: No Does the pt Need Aspirin: No Condition: Stable Additional Instructions: Please continue to take your Coumadin. Times that you have been admitted to the hospital your Coumadin levels were therapeutic. If you take your medications it would likely improve Prescriptions: Promethazine [Phenergan] 25 mg PO Q8HR PRN #10 tab PRN Reason: Nausea Referrals: PRIMARY CARE, [Primary Care Provider] - 3-5 Days Time of Disposition: 16:37
[2019-06-18 16:58] VITALS: BP 140/82
== END 2019-06-18 17:07 | disposition home or self-care (01) ==
LOC: ED 12:35
DX: R07.89 Other chest pain (principal); R11.0 Nausea; I10 Essential (primary) hypertension; K21.9 Gastro-esophageal reflux disease without esophagitis; F41.9 Anxiety disorder, unspecified; E05.00 Thyrotoxicosis with diffuse goiter without thyrotoxic crisis or storm; Z95.818 Presence of other cardiac implants and grafts; Z79.899 Other long term (current) drug therapy; Z98.890 Other specified postprocedural states; Z88.6 Allergy status to analgesic agent; Z88.0 Allergy status to penicillin; Z91.018 Allergy to other foods
CPT/HCPCS: 36415; 71045; 80048; 84484; 85025; 85610; 93005; 99284; Q0169

== ENCOUNTER 2019-06-24 17:12 | Emergency (ER) | payer SELFPAY ==
--- NOTE | 2019-06-24 18:02 | XRay Report ---
CHEST 1 VIEW INDICATION / CLINICAL INFORMATION: Chest Pain. COMPARISON: 06/18/2019 FINDINGS: SUPPORT DEVICES: None. HEART / MEDIASTINUM: Heart size is normal. Thoracic aortic stent is again noted. LUNGS / PLEURA: No significant pulmonary or pleural abnormality. No pneumothorax. ADDITIONAL FINDINGS: No significant additional findings. IMPRESSION: 1. No acute findings. Signer Name: Justin House MD Signed: 06/24/2019 5:57 PM Workstation Name: [id number]
[2019-06-24 18:18] LABS: Hematocrit 40.3 % (30.3-42.9); Hemoglobin 12.5 gm/dl (10.1-14.3); Mean Corpuscular HGB Conc 31 % (30-34); Mean Corpuscular Volume 91 fl (79-97); Platelet Count 284 K/mm3 (140-440); Red Blood Count 4.44 M/mm3 (3.65-5.03)
[2019-06-24 18:32] LABS: BUN/Creatinine Ratio 26; Blood Urea Nitrogen 21 mg/dL (7-17); Hemolysis Index 26
[2019-06-24] MEDS ORDERED: traMADol 50 MG TAB PO ONE ×2 (20:07→23:55)
[2019-06-24] MEDS ORDERED: ONDANSETRON 4 MG ODT TAB PO ONE ×2 (20:07→23:55)
[2019-06-24 20:28] LABS: INR 0.94 (0.87-1.13)
--- NOTE | 2019-06-24 20:35 | Emergency Department Report ---
ED Chest Pain HPI - General Chief Complaint: Chest Pain Stated Complaint: CHEST PAIN/FAINT/VOMIT Time Seen by Provider: 06/24/19 19:52 Source: patient Mode of arrival: Ambulatory Limitations: No Limitations - History of Present Illness Initial Comments: 38-year-old female presents to the emergency department with complaint of midsternal chest pain with some radiation to the back going on for the past 2 weeks intermittently. More recently the patient says the pain has started to worsen with certain movements of her torso but the pain is "on the inside." The patient has been to this emergency department 4 times in the past 3 weeks for similar symptoms. She has a history of previous diabetic cardiomyopathy, DVT, lupus anticoagulant, Graves' disease, anxiety, hypothyroidism, schizophrenia, and a descending thoracic aortic dissection treated with transcutaneous graft placement, medication noncompliance. The patient had a saddle embolus in Feb with subsequent thrombectomy. Patient had a negative stress test in 2018. Patient says that she follows up at [facility] where she sees both primary care and cardiology. Severity scale (0 -10): 8 - Related Data Previous Rx's Medication Instructions Recorded Last Taken Type ALPRAZolam [Xanax TAB] 0.5 mg PO BID #20 tablet 11/29/18 Unknown Rx Ondansetron [Zofran ODT TAB] 4 mg PO Q8HR #10 tab.rapdis 11/29/18 Unknown Rx Pantoprazole [Protonix TAB] 20 mg PO QDAY #30 tablet. 11/29/18 Unknown Rx Pregabalin 100 mg PO QAM #30 capsule 11/29/18 Unknown Rx QUEtiapine [SEROquel] 100 mg PO DAILY #10 tablet 11/29/18 Unknown Rx Warfarin [Coumadin] 7.5 mg PO QDAY #30 tablet 11/29/18 Unknown Rx carvediloL [Coreg] 3.125 mg PO BID #60 tablet 11/29/18 Unknown Rx levETIRAcetam [Keppra TAB] 500 mg PO BID #60 tablet 11/29/18 Unknown Rx lisinopriL [Zestril TAB] 5 mg PO QDAY #30 tablet 11/29/18 Unknown Rx methIMAzole [Tapazole] 5 mg PO Q8H #90 tab 11/29/18 Unknown Rx propranoloL [Inderal] 20 mg PO BID #60 tablet 11/29/18 Unknown Rx Promethazine [Phenergan] 25 mg PO Q8HR PRN #14 tab 06/09/19 Unknown Rx traMADoL [Ultram 50 MG tab] 50 mg PO Q6HR PRN #15 tablet 06/09/19 Unknown Rx Promethazine [Phenergan] 25 mg PO Q8HR PRN #10 tab 06/18/19 Unknown Rx Allergies Allergy/AdvReac Type Severity Reaction Status Date / Time garlic Allergy Unknown Verified 07/15/18 09:11 ibuprofen [From Motrin] Allergy Unknown Verified 07/15/18 09:11 oxycodone [From Percocet] Allergy Itching Verified 07/15/18 09:11 peanut oil Allergy Unknown Verified 07/15/18 09:11 Penicillins Allergy Unknown Verified 07/15/18 09:11 Heart Score - HEART Score History: Slightly suspicious EKG: Normal Age: < 45 Risk factors: 1-2 risk factors Troponin: < normal limit HEART Score: 1 - Critical Actions Critical Actions: 0-3 pts:0.9-1.7%risk of adverse cardiac event.Candidate for discharge ED Review of Systems ROS: Stated complaint: CHEST PAIN/FAINT/VOMIT Other details as noted in HPI Comment: All other systems reviewed and negative Constitutional: denies: chills, fever Eyes: denies: eye pain, vision change ENT: denies: ear pain, throat pain Respiratory: denies: cough, shortness of breath Cardiovascular: chest pain. denies: palpitations Gastrointestinal: nausea, vomiting. denies: abdominal pain Genitourinary: denies: dysuria, discharge Musculoskeletal: back pain. denies: arthralgia Skin: denies: rash, lesions Neurological: denies: headache, weakness ED Past Medical Hx - Past Medical History Previous Medical History?: Yes Hx Hypertension: Yes Hx Heart Attack/AMI: (normal stress 10-31-16, normal perfusion scan May 2017) Hx Congestive Heart Failure: No Hx Diabetes: No Hx Deep Vein Thrombosis: Yes Hx Pulmonary Embolism: Yes Hx GERD: Yes Hx Sickle Cell Disease: No Hx Seizures: Yes Hx Psychiatric Treatment: Yes (anxiety) Hx Asthma: No Hx COPD: No Hx Tuberculosis: No Hx HIV: No Additional medical history: pericarditis, pt states hyperthyroidism, thyroid storm, PE x2, (R lung 05/2016, L lung 01/2017--on coumadin), R leg DVT 03/2017, Graves Disease, heart murmur, aortic dissection - Surgical History Past Surgical History?: Yes Hx Coronary Stent: Yes Hx Pacemaker: No Hx Internal Defibrillator: No Additional Surgical History: Left arm surgery 02/2017, Right knee, Rt leg. 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, [place] Filter - Social History Smoking Status: Never Smoker Substance Use Type: None - Medications Home Medications: Home Medications Medication Instructions Recorded Confirmed Last Taken Type ALPRAZolam [Xanax TAB] 0.5 mg PO BID #20 tablet 11/29/18 Unknown Rx Ondansetron [Zofran ODT TAB] 4 mg PO Q8HR #10 tab.rapdis 11/29/18 Unknown Rx Pantoprazole [Protonix TAB] 20 mg PO QDAY #30 tablet.dr 11/29/18 Unknown Rx Pregabalin 100 mg PO QAM #30 capsule 11/29/18 Unknown Rx QUEtiapine [SEROquel] 100 mg PO DAILY #10 tablet 11/29/18 Unknown Rx Warfarin [Coumadin] 7.5 mg PO QDAY #30 tablet 11/29/18 Unknown Rx carvediloL [Coreg] 3.125 mg PO BID #60 tablet 11/29/18 Unknown Rx levETIRAcetam [Keppra TAB] 500 mg PO BID #60 tablet 11/29/18 Unknown Rx lisinopriL [Zestril TAB] 5 mg PO QDAY #30 tablet 11/29/18 Unknown Rx methIMAzole [Tapazole] 5 mg PO Q8H #90 tab 11/29/18 Unknown Rx propranoloL [Inderal] 20 mg PO BID #60 tablet 11/29/18 Unknown Rx Promethazine [Phenergan] 25 mg PO Q8HR PRN #14 tab 06/09/19 Unknown Rx traMADoL [Ultram 50 MG tab] 50 mg PO Q6HR PRN #15 tablet 06/09/19 Unknown Rx Promethazine [Phenergan] 25 mg PO Q8HR PRN #10 tab 06/18/19 Unknown Rx ED Physical Exam - General Limitations: No Limitations - Other Other exam information: GENERAL: The patient is well-developed well-nourished. HENT: Normocephalic. Atraumatic. Patient has moist mucous membranes. EYES: Extraocular motions are intact. NECK: Supple. Trachea is midline. CHEST/LUNGS: Clear to auscultation. There is no respiratory distress noted. Chest pain is reproducible to palpation of the chest wall. No crepitus or deformity. HEART/CARDIOVASCULAR: Regular. There is no tachycardia. There is no murmur. ABDOMEN: Abdomen is soft, nontender. Patient has normal bowel sounds. SKIN: Skin is warm and dry. NEURO: The patient is awake, alert, and oriented. The patient is cooperative. The patient has no focal neurologic deficits. Normal speech. MUSCULOSKELETAL: There is no tenderness or deformity. There is no limitation range of motion. There is no evidence of acute injury. ED Course Vital Signs 06/24/19 06/24/19 06/24/19 17:18 19:58 20:14 Temperature 97.9 F 98.1 F Pulse Rate 92 H 84 Respiratory 16 19 19 Rate Blood Pressure 109/63 Blood Pressure 119/63 [Right] O2 Sat by Pulse 99 98 Oximetry 06/24/19 06/24/19 06/25/19 21:14 23:58 00:00 Temperature 98.1 F Pulse Rate 77 Respiratory 19 19 16 Rate Blood Pressure Blood Pressure 115/68 [Right] O2 Sat by Pulse 99 Oximetry 06/25/19 00:22 Temperature Pulse Rate Respiratory 16 Rate Blood Pressure Blood Pressure [Right] O2 Sat by Pulse Oximetry GENOVEVA score - Genoveva Score Age > 65: (0) No Aspirin use within the Past 7 Days: (0) No 3 or more CAD Risk Factors: (0) No 2 or more Angina events in past 24 hrs: (1) Yes Known CAD with more than 50% Stenosis: (0) No Elevated Cardiac Markers: (0) No ST Deviation Greater than 0.5mm: (0) No GENOVEVA Score: 1 ED Medical Decision Making - Lab Data Result diagrams: 06/24/19 17:49 06/24/19 17:49 - EKG Data -: EKG Interpreted by Me EKG shows normal: sinus rhythm, axis, intervals, QRS complexes, ST-T waves (Early repolarization) Rate: normal - EKG Data When compared to previous EKG there are: no significant change Interpretation: unchanged when compared t (06/18/19) - Radiology Data Radiology results: report reviewed, image reviewed interpreted by me: Chest x-ray does not show any acute process. There are no pleural effusions, obvious pneumonia and there is no pneumothorax. CT angio chest INDICATION / CLINICAL INFORMATION: Chest pain. History of pulmonary embolus. TECHNIQUE: Axial CT images were obtained after injection of Omnipaque 350, 100 IV contrast using CTA protocol. 3 plane MIP / 3D reconstructions were produced. All CT scans at this location are performed using CT dose reduction for ALARA by means of automated exposure control. COMPARISON: None available. FINDINGS: Negative for lung mass, infiltrate or pleural fluid. Mild dependent scarring is present. No mediastinal mass or adenopathy. Imaging of the upper abdomen is unremarkable. No aneurysm, dissection or pulmonary embolus a descending thoracic aortic stent graft is widely patent. IMPRESSION: 1. Negative for pulmonary embolus or pneumonia. 2. Dependent scarring. - Medical Decision Making This patient presents to the emergency department with complaint of some midsternal chest pain that is been going on for the past few weeks. The patient has been here multiple times in the past for similar symptoms. On examination she has normal sounding heart and lungs to auscultation and the chest pain is reproducible to palpation of the chest wall. No crepitus or deformity. Chest x-ray does not show any pleural effusions, pneumonia, pneumothorax, or any other acute process. EKG shows nonspecific ST-T waves but there are no signs of ST elevation NE and the EKG is unchanged from previous EKGs. Patient's labs have been mostly unremarkable including negative troponins x2. She did have a elevated and equivocal d-dimer. With her history of previous pulmonary embolism and subtherapeutic Coumadin level a CT angiography of the chest was completed that was negative for any PE or any other acute process. The patient is low on the heart and GENOVEVA score. She was reevaluated multiple times over multiple hours and appears improved. Vital signs stable throughout her ED course. Her contact information has been sent over to the [facility], and as part of our chest pain rule out protocol, someone from their office should be contacting her shortly for close outpatient follow-up. The patient will return to the emergency department with any worsening of her symptoms or any acute distress. Critical Care Time: No Critical care attestation.: If time is entered above; I have spent that time in minutes in the direct care of this critically ill patient, excluding procedure time. ED Disposition Clinical Impression: Hyperthyroidism, Subtherapeutic international normalized ratio (INR), Costochondritis Chest pain Qualifiers: Chest pain type: unspecified Qualified Code(s): R07.9 - Chest pain, unspecified Disposition: TO HOME OR SELFCARE Is pt being admited?: No Condition: Stable Instructions: Warfarin (By mouth), Chest Pain (ED), Hyperthyroidism (ED) Additional Instructions: Take your medications as prescribed. Please follow-up with your primary care physician in the next few days. Your contact information has been sent over to [facility] and someone from their office should be contacting you shortly for close outpatient follow-up. Return to the emergency department with any worsening of your symptoms or any acute distress. Referrals: PRIMARY CARE, [Primary Care Provider] - 2-3 Days CATHERINE DOTSON MD [Staff Physician] - 2-3 Days Time of Disposition: 23:57
[2019-06-24 20:38] LABS: Partial Thromboplastin Time 23.6 Sec. (24.2-36.6)
--- NOTE | 2019-06-24 23:51 | Cat Scan Report ---
CT angio chest INDICATION / CLINICAL INFORMATION: Chest pain. History of pulmonary embolus. TECHNIQUE: Axial CT images were obtained after injection of Omnipaque 350, 100 IV contrast using CTA protocol. 3 plane MIP / 3D reconstructions were produced. All CT scans at this location are performed using CT d ose reduction for ALARA by means of automated exposure control. COMPARISON: None available. FINDINGS: Negative for lung mass, infiltrate or pleural fluid. Mild dependent scarring is present. No mediastin al mass or adenopathy. Imaging of the upper abdomen is unremarkable. No aneurysm, dissection or pulmonary embolus a descending thoracic aortic stent graft is widely paten t. IMPRESSION: 1. Negative for pulmonary embolus or pneumonia. 2. Dependent scarring. Signer Name: Josiah Castro MD Signed: 06/24/2019 11:46 PM Workstation Name: [id number]
[2019-06-25 00:01] VITALS: BP 115/68
== END 2019-06-25 00:24 | disposition home or self-care (01) ==
LOC: ED 17:12
DX: R07.89 Other chest pain (principal); M94.0 Chondrocostal junction syndrome [Tietze]; E05.80 Other thyrotoxicosis without thyrotoxic crisis or storm; I10 Essential (primary) hypertension; K21.9 Gastro-esophageal reflux disease without esophagitis; F41.9 Anxiety disorder, unspecified; Z95.818 Presence of other cardiac implants and grafts; Z79.899 Other long term (current) drug therapy; Z91.010 Allergy to peanuts; Z88.0 Allergy status to penicillin; Z91.018 Allergy to other foods; Z88.6 Allergy status to analgesic agent
CPT/HCPCS: 36415; 71046; 71275; 80048; 83880; 84439; 84443; 84484; 85025; 85379; 85610; 85730; 93005; 99285; Q9967; Q0162

== ENCOUNTER 2019-06-29 08:35 | Emergency (ER) | payer SELFPAY ==
--- NOTE | 2019-06-29 09:41 | Emergency Department Report ---
HPI - General Chief Complaint: Nausea/Vomiting/Diarrhea PUI?: No Time Seen by Provider: 06/29/19 09:26 - HPI HPI: Room 18 The patient is a 38-year-old female present with a chief complaint of chest pain. Patient states she has had chest pain intermittently for 1 month. Patient states the pain is substernal and tearing in nature. Patient admits to occasional shortness of breath and nausea. The patient went to [facility] 06/26/2019 and was admitted. During her admission a CT scan revealed a subsegmental PE in the right upper lobe. The patient was started on Eliquis and discharged yesterday. The patient states she has been compliant with her Eliquis. The patient states she no longer has Ultram at home and came to the ED for her chest pain ED Past Medical Hx - Past Medical History Previous Medical History?: Yes Hx Hypertension: Yes Hx Heart Attack/AMI: (normal stress 10-31-16, normal perfusion scan May 2017) Hx Deep Vein Thrombosis: Yes Hx Pulmonary Embolism: Yes Hx GERD: Yes Hx Seizures: Yes Hx Psychiatric Treatment: Yes (anxiety) Additional medical history: pericarditis, pt states hyperthyroidism, thyroid storm, PE x2, (R lung 05/2016, L lung 01/2017--on coumadin), R leg DVT 03/2017, Graves Disease, heart murmur, aortic dissection - Surgical History Past Surgical History?: Yes Hx Coronary Stent: Yes Additional Surgical History: Left arm surgery 02/2017, Right knee, Rt leg. 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, [place] Filter - Social History Smoking Status: Current Some Day Smoker Substance Use Type: Marijuana - Medications Home Medications: Home Medications Medication Instructions Recorded Confirmed Last Taken Type ALPRAZolam [Xanax TAB] 0.5 mg PO BID #20 tablet 11/29/18 Unknown Rx Ondansetron [Zofran ODT TAB] 4 mg PO Q8HR #10 tab.rapdis 11/29/18 Unknown Rx Pantoprazole [Protonix TAB] 20 mg PO QDAY #30 tablet. 11/29/18 Unknown Rx Pregabalin 100 mg PO QAM #30 capsule 11/29/18 Unknown Rx QUEtiapine [SEROquel] 100 mg PO DAILY #10 tablet 11/29/18 Unknown Rx Warfarin [Coumadin] 7.5 mg PO QDAY #30 tablet 11/29/18 Unknown Rx carvediloL [Coreg] 3.125 mg PO BID #60 tablet 11/29/18 Unknown Rx levETIRAcetam [Keppra TAB] 500 mg PO BID #60 tablet 11/29/18 Unknown Rx lisinopriL [Zestril TAB] 5 mg PO QDAY #30 tablet 11/29/18 Unknown Rx methIMAzole [Tapazole] 5 mg PO Q8H #90 tab 11/29/18 Unknown Rx propranoloL [Inderal] 20 mg PO BID #60 tablet 11/29/18 Unknown Rx Promethazine [Phenergan] 25 mg PO Q8HR PRN #14 tab 06/09/19 Unknown Rx traMADoL [Ultram 50 MG tab] 50 mg PO Q6HR PRN #15 tablet 06/09/19 Unknown Rx Promethazine [Phenergan] 25 mg PO Q8HR PRN #10 tab 06/18/19 Unknown Rx traMADoL [Ultram] 50 mg PO Q6HR PRN #14 tablet 06/29/19 Unknown Rx ED Review of Systems ROS: Stated complaint: N/V Other details as noted in HPI Constitutional: no symptoms reported Eyes: denies: eye pain ENT: denies: throat pain Respiratory: shortness of breath Cardiovascular: chest pain Endocrine: no symptoms reported Gastrointestinal: nausea Genitourinary: denies: dysuria Musculoskeletal: denies: back pain Neurological: denies: headache Physical Exam - Physical Exam Vital Signs: Vital Signs 06/29/19 08:37 Temperature 97.9 F Pulse Rate 100 H Respiratory 18 Rate Blood Pressure 121/72 O2 Sat by Pulse 100 Oximetry Physical Exam: GENERAL: The patient is well-developed well-nourished female lying on stretcher not appearing to be in acute distress. [] HEENT: Normocephalic. Atraumatic. Extraocular motions are intact. Patient has moist mucous membranes. NECK: Supple. Trachea midline CHEST/LUNGS: Clear to auscultation. There is no respiratory distress noted. HEART/CARDIOVASCULAR: Regular. There is no tachycardia. There is no gallop rub or murmur. ABDOMEN: Abdomen is soft, nontender. Patient has normal bowel sounds. There is no abdominal distention. SKIN: There is no rash. There is no edema. There is no diaphoresis. NEURO: The patient is awake, alert, and oriented. The patient is cooperative. The patient has no focal neurologic deficits. The patient has normal speech \ MUSCULOSKELETAL: There is no evidence of acute injury. ED Course Vital Signs 06/29/19 08:37 Temperature 97.9 F Pulse Rate 100 H Respiratory 18 Rate Blood Pressure 121/72 O2 Sat by Pulse 100 Oximetry ED Medical Decision Making - Lab Data Result diagrams: 06/29/19 10:47 06/29/19 11:05 Laboratory Tests 06/29/19 06/29/19 06/29/19 09:05 10:47 10:47 WBC 7.1 RBC 4.46 Hgb 13.0 Hct 39.5 MCV 89 MCH 29 MCHC 33 RDW 13.3 Plt Count 314 Lymph % (Auto) 20.3 [place] % (Auto) 7.3 Eos % (Auto) 1.8 Baso % (Auto) 1.1 Lymph # 1.4 [place] # 0.5 Eos # 0.1 Baso # 0.1 Seg Neutrophils % 69.5 Seg Neutrophils # 4.9 PT 12.9 INR 0.99 APTT 20.0 L Sodium Potassium Chloride Carbon Dioxide Anion Gap BUN Creatinine Estimated GFR BUN/Creatinine Ratio Glucose Calcium Total Bilirubin AST ALT Alkaline Phosphatase Total Creatine Kinase CK-MB (CK-2) CK-MB (CK-2) Rel Index Troponin T NT-Pro-B Natriuret Pep Total Protein Albumin Albumin/Globulin Ratio Urine Color Yellow Urine Turbidity Clear Urine pH 5.0 Ur Specific [place] 1.016 Urine Protein <15 mg/dl Urine Glucose (UA) Neg Urine Ketones Neg Urine Blood Lg Urine Nitrite Neg Urine Bilirubin Neg Urine Urobilinogen < 2.0 Ur Leukocyte Esterase Neg Urine WBC (Auto) 1.0 Urine RBC (Auto) 5.0 U Epithel Cells (Auto) 3.0 Urine Mucus Few 06/29/19 06/29/19 11:05 11:11 WBC RBC Hgb Hct MCV MCH MCHC RDW Plt Count Lymph % (Auto) [place] % (Auto) Eos % (Auto) Baso % (Auto) Lymph # [place] # Eos # Baso # Seg Neutrophils % Seg Neutrophils # PT INR APTT Sodium 138 Potassium 5.3 H Chloride 102.4 Carbon Dioxide 25 Anion Gap 16 BUN 9 Creatinine 0.8 Estimated GFR > 60 BUN/Creatinine Ratio 11 Glucose 89 Calcium 9.4 Total Bilirubin 0.20 AST 73 H ALT 25 Alkaline Phosphatase 69 Total Creatine Kinase 75 CK-MB (CK-2) < 1.0 CK-MB (CK-2) Rel Index 1.3 Troponin T < 0.010 NT-Pro-B Natriuret Pep 44.18 Total Protein 6.6 Albumin 3.9 Albumin/Globulin Ratio 1.4 Urine Color Urine Turbidity Urine pH Ur Specific [place] Urine Protein Urine Glucose (UA) Urine Ketones Urine Blood Urine Nitrite Urine Bilirubin Urine Urobilinogen Ur Leukocyte Esterase Urine WBC (Auto) Urine RBC (Auto) U Epithel Cells (Auto) Urine Mucus - EKG Data -: EKG Interpreted by Me EKG shows normal: sinus rhythm Rate: normal - EKG Data When compared to previous EKG there are: previous EKG unavailable Interpretation: nonspecific ST-T wave devon - Differential Diagnosis PE, ACS, pericarditis Critical care attestation.: If time is entered above; I have spent that time in minutes in the direct care of this critically ill patient, excluding procedure time. ED Disposition Clinical Impression: Pulmonary embolism, Chest pain Disposition: DC-01 TO HOME OR SELFCARE Is pt being admited?: No Does the pt Need Aspirin: No Condition: Stable Instructions: Chest Pain (ED) Additional Instructions: Return to the emergency department should you develop worsening symptoms, inabi lity to tolerate food or liquids, high fever or any other concerns Prescriptions: traMADoL [Ultram] 50 mg PO Q6HR PRN #14 tablet PRN Reason: Pain Referrals: PRIMARY CARE, [Primary Care Provider] - 3-5 Days Time of Disposition: 12:29
[2019-06-29] MEDS ORDERED: ONDANSETRON 4 MG/2 ML INJ IV ONE (09:58)
[2019-06-29 10:06] LABS: Bilirubin,Urine NEG (Negative); Blood,Urine LG (Negative); Color,Urine Yellow (Yellow); Mucus,Urine FEW /HPF; Protein,Urine <15 mg/dL mg/dL (Negative); Urobilinogen,Urine < 2.0 mg/dL (<2.0)
[2019-06-29 11:04] LABS: Basophils # (Auto) 0.1 K/mm3 (0.0-0.1); Basophils % (Auto) 1.1 % (0.0-1.8); Eosinophils # (Auto) 0.1 K/mm3 (0.0-0.4); Eosinophils % (Auto) 1.8 % (0.0-4.3); Hematocrit 39.5 % (30.3-42.9); Lymphocytes # (Auto) 1.4 K/mm3 (1.2-5.4); Lymphocytes % (Auto) 20.3 % (13.4-35.0); Mean Corpuscular HGB Conc 33 % (30-34); Mean Corpuscular Volume 89 fl (79-97); Monocytes # (Auto) 0.5 K/mm3 (0.0-0.8); Monocytes % (Auto) 7.3 % (0.0-7.3); Platelet Count 314 K/mm3 (140-440); Red Blood Count 4.46 M/mm3 (3.65-5.03); Red Cell Distribution Width 13.3 % (13.2-15.2)
[2019-06-29] MEDS: fentaNYL 100 MCG/2 ML INJ IV ONE ×2 (11:10→12:45)
[2019-06-29 11:14] LABS: INR 0.99 (0.87-1.13)
[2019-06-29 11:20] LABS: BUN/Creatinine Ratio 11; Blood Urea Nitrogen 9 mg/dL (7-17)
[2019-06-29 11:58] LABS: Creatine Kinase MB < 1.0 ng/mL (0.0-4.0)
[2019-06-29 12:09] LABS: Albumin 3.9 g/dL (3.9-5); Calcium 9.4 mg/dL (8.4-10.2)
[2019-06-29 12:14] LABS: Alanine Aminotransferase 25 units/L (7-56)
[2019-06-29] MEDS ORDERED: fentaNYL 100 MCG/2 ML INJ ONE (12:14)
[2019-06-29 12:15] LABS: Hemolysis Index 132
[2019-06-29] MEDS ORDERED: traMADol 50 MG TAB PO ONE (12:29)
== END 2019-06-29 12:55 | disposition home or self-care (01) ==
LOC: ED 08:35
DX: I26.99 Other pulmonary embolism without acute cor pulmonale (principal); R07.89 Other chest pain; I10 Essential (primary) hypertension; K21.9 Gastro-esophageal reflux disease without esophagitis; G40.909 Epilepsy, unspecified, not intractable, without status epilepticus; Z98.890 Other specified postprocedural states; Z79.899 Other long term (current) drug therapy; Z88.0 Allergy status to penicillin; Z88.8 Allergy status to other drugs, medicaments and biological substances
CPT/HCPCS: 36415; 80053; 81001; 82550; 82553; 83880; 84484; 85025; 85610; 85730; 96374; 96375; 99284; J2405; J3010; 93005

== ENCOUNTER 2019-07-18 15:00 | Emergency (ER) | payer SELFPAY ==
--- NOTE | 2019-07-18 17:29 | Emergency Department Report ---
Blank Doc - Documentation Documentation: This is a 38-year-old female that presents with CP, SOB, and syncopal episodes. HX of PE, SD, and cardiac surgery. 1- This initial assessment/diagnostic orders/clinical plan/ treatment(s) is/are subject to change based on pt's health status, clinical progression and re-asse ssment by fellow clinical providers in the ED. Further treatment and workup at subsequent clinical provers discretion. Patient/guardians urged not to elope from ED as their condition may be serious if not clinically assessed and managed. 2-Patient sent to Main ED 3-cardiac work up
[2019-07-18] MEDS ORDERED: NITROGLYCERIN 0.4 MG TAB SUBL SL PRN (17:39)
[2019-07-18 19:08] LABS: Basophils # (Auto) 0.1 K/mm3 (0.0-0.1); Basophils % (Auto) 1.2 % (0.0-1.8); Eosinophils # (Auto) 0.1 K/mm3 (0.0-0.4); Eosinophils % (Auto) 0.9 % (0.0-4.3); Hematocrit 33.6 % (30.3-42.9); Hemoglobin 11.1 gm/dl (10.1-14.3); Lymphocytes # (Auto) 2.3 K/mm3 (1.2-5.4); Lymphocytes % (Auto) 33.7 % (13.4-35.0); Mean Corpuscular HGB Conc 33 % (30-34); Mean Corpuscular Volume 87 fl (79-97); Monocytes # (Auto) 0.9 K/mm3 (0.0-0.8); Monocytes % (Auto) 12.3 % (0.0-7.3); Platelet Count 354 K/mm3 (140-440); Red Blood Count 3.86 M/mm3 (3.65-5.03); Red Cell Distribution Width 14.1 % (13.2-15.2)
[2019-07-18 19:18] LABS: INR 1.03 (0.87-1.13); Partial Thromboplastin Time 22.9 Sec. (24.2-36.6)
[2019-07-18 19:44] LABS: Alanine Aminotransferase 33 units/L (7-56); Albumin 3.6 g/dL (3.9-5); BUN/Creatinine Ratio 40; Blood Urea Nitrogen 24 mg/dL (7-17); Calcium 9.6 mg/dL (8.4-10.2); Hemolysis Index 9
[2019-07-18] MEDS ORDERED: ACETAMINOPHEN 325 MG TAB PO ONE (20:01)
[2019-07-18] MEDS ORDERED: FAMOTIDINE 20 MG TAB PO ONE (20:01)
--- NOTE | 2019-07-18 20:02 | Emergency Department Report ---
ED General Adult HPI - General Chief complaint: Chest Pain Stated complaint: CP/V/FAINTING PUI?: No Time Seen by Provider: 07/18/19 17:28 Source: patient, RN notes reviewed, old records reviewed Mode of arrival: Ambulatory Limitations: No Limitations - History of Present Illness Initial comments: The patient is a 38-year-old female. Her chronic past medical history includes pulmonary embolism/DVT, history of IVC filter, history of descending thoracic aortic dissection, status post tevar, diabetes, anxiety, seizures, pericarditis, and report of CAD with stent placement The patient has had multiple visits to this hospital recently with complaints of chest pain, nausea vomiting, and syncope/near syncope. On June 15, 2019, she presented to the department, a date that I was was physically present, I was able to observe the patient, while she was under the care of my colleague Dr. Biggs. The patient had a CT scan of her chest which showed no evidence of pulmonary embolism or aortic dissection. In addition, she was seen by my colleague Dr. Porras on June 24, 2019, and had a CT scan of her chest which was negative for pulmonary embolism. The patient has a history of noncompliance, and possible malingering. Please read Dr. Biggs note from June 15, 2019 for further details. Today, the patient presents to the ER today with a complaint of central chest wall pain, present for 2 weeks, which does not radiate to the back, arms or neck. The patient also states that she felt like she was going to pass out but did not pass out. There is no complaint of abdominal pain or back pain. The patient is insistent that she gets Coumadin at local [facility] pharmacy. Of note, we contacted the aforementioned [facility] pharmacy, who indicated the patient did not have Coumadin since 2019. The patient also states that she was recently admitted to a hospital in [place], perhaps [facility], and the patient provides inconsistent details. She first states that she was hospitalized at [facility] in [place]. She then modified this to state that she was hospitalized at [facility] in [place]. She also stated that she had blood clots in her lung. She states that this was diagnosed within the past week to 2 weeks. We contacted the aforementioned hospital, and they indicated they had no record of the patient being hospitalized. The patient is not homicidal or suicidal. The patient is amenable to Tylenol, and Pepcid. -: Gradual, week(s) Location: chest Severity scale (0 -10): 8 Quality: other (Chest wall pain increases with palpation and range of motion. It decreases with rest.) - Related Data Home Medications Medication Instructions Recorded Confirmed Last Taken Aspirin EC [Halfprin EC] 81 mg PO QDAY 07/18/19 07/18/19 Unknown Dicyclomine [Bentyl] 10 mg PO Q6HR PRN 07/18/19 07/18/19 Unknown Gabapentin [Neurontin] 300 mg PO BID 07/18/19 07/18/19 Unknown QUEtiapine [SEROquel] 100 mg PO BID 07/18/19 07/18/19 Unknown propranoloL [Inderal] 20 mg PO TID 07/18/19 07/18/19 Unknown Previous Rx's Medication Instructions Recorded Last Taken Type ALPRAZolam [Xanax TAB] 0.5 mg PO BID #20 tablet 11/29/18 Unknown Rx levETIRAcetam [Keppra TAB] 500 mg PO BID #60 tablet 11/29/18 Unknown Rx traMADoL [Ultram] 50 mg PO Q6HR PRN #14 tablet 06/29/19 Unknown Rx Allergies Allergy/AdvReac Type Severity Reaction Status Date / Time garlic Allergy Unknown Verified 07/18/19 15:09 ibuprofen [From Motrin] Allergy Unknown Verified 07/18/19 15:09 oxycodone [From Percocet] Allergy Itching Verified 07/18/19 15:09 peanut oil Allergy Unknown Verified 07/18/19 15:09 Penicillins Allergy Unknown Verified 07/18/19 15:09 ED Review of Systems ROS: Stated complaint: CP/V/FAINTING Other details as noted in HPI Constitutional: denies: fever Cardiovascular: chest pain, other Gastrointestinal: denies: abdominal pain Musculoskeletal: denies: back pain Psychiatric: denies: homicidal thoughts, suicidal thoughts ED Past Medical Hx - Past Medical History Hx Hypertension: Yes Hx Heart Attack/AMI: (normal stress 10-31-16, normal perfusion scan May 2017) Hx Congestive Heart Failure: No Hx Diabetes: No Hx Deep Vein Thrombosis: Yes Hx Pulmonary Embolism: Yes Hx GERD: Yes Hx Sickle Cell Disease: No Hx Seizures: Yes Hx Psychiatric Treatment: Yes (anxiety) Hx Asthma: No Hx COPD: No Hx Tuberculosis: No Hx HIV: No Additional medical history: pericarditis, pt states hyperthyroidism, thyroid s torm, PE x2, (R lung 05/2016, L lung 01/2017--on coumadin), R leg DVT 03/2017, Graves Disease, heart murmur, aortic dissection - Surgical History Hx Coronary Stent: Yes Hx Pacemaker: No Hx Internal Defibrillator: No Additional Surgical History: Left arm surgery 02/2017, Right knee, Rt leg. 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, [place] Filter - Social History Smoking Status: Current Every Day Smoker Substance Use Type: None - Medications Home Medications: Home Medications Medication Instructions Recorded Confirmed Last Taken Type ALPRAZolam [Xanax TAB] 0.5 mg PO BID #20 tablet 11/29/18 07/18/19 Unknown Rx levETIRAcetam [Keppra TAB] 500 mg PO BID #60 tablet 11/29/18 07/18/19 Unknown Rx traMADoL [Ultram] 50 mg PO Q6HR PRN #14 tablet 06/29/19 07/18/19 Unknown Rx Aspirin EC [Halfprin EC] 81 mg PO QDAY 07/18/19 07/18/19 Unknown History Dicyclomine [Bentyl] 10 mg PO Q6HR PRN 07/18/19 07/18/19 Unknown History Gabapentin [Neurontin] 300 mg PO BID 07/18/19 07/18/19 Unknown History QUEtiapine [SEROquel] 100 mg PO BID 07/18/19 07/18/19 Unknown History propranoloL [Inderal] 20 mg PO TID 07/18/19 07/18/19 Unknown History ED Physical Exam - General Limitations: No Limitations, Other (During the entire history and physical examination, I am hoop bender tank and escorted by nurse Buck) General appearance: alert, anxious, obese - Head Head exam: Present: atraumatic, normocephalic - Eye Eye exam: Present: normal appearance, EOMI, other (Visual acuity intact to finge r counting, color perception, reading at a close distance). Absent: nystagmus - ENT ENT exam: Present: normal exam, normal orophraynx, mucous membranes moist, n ormal external ear exam - Neck Neck exam: Present: normal inspection - Respiratory Respiratory exam: Present: normal lung sounds bilaterally. Absent: respiratory distress - Cardiovascular Cardiovascular Exam: Present: regular rate, normal rhythm, normal heart sounds. Absent: bradycardia, tachycardia, irregular rhythm, systolic murmur, diastolic murmur, rubs, gallop - GI/Abdominal GI/Abdominal exam: Present: soft. Absent: distended, tenderness, guarding, rebound, rigid, pulsatile mass - Extremities Exam Extremities exam: Present: normal inspection, full ROM, other (2+ pulses noted in the bilateral upper and lower extremities. There is no palpable cord. negative Homans sign. Muscular compartments are soft. The pelvis is stable.). Absent: pedal edema, calf tenderness - Back Exam Back exam: Present: normal inspection, full ROM. Absent: tenderness, CVA tenderness (R), CVA tenderness (L), paraspinal tenderness, vertebral tenderness - Neurological Exam Neurological exam: Present: alert, oriented X3, normal gait, other (There is no facial droop. The tongue is midline. Extraocular movements are intact bilat erally. There is 5 out of 5 strength in bilateral upper and lower extremities. Sensation is intact to light touch bilateral upper and lower extremities. There is no past-pointing. There is no pronator drift. There is normal [id number]. There is a normal gait.). Absent: motor sensory deficit - Psychiatric Psychiatric exam: Present: anxious. Absent: homicidal ideation, suicidal ideation - Skin Skin exam: Present: warm, dry, intact, normal color. Absent: rash ED Course Vital Signs 07/18/19 07/18/19 07/18/19 15:09 18:01 18:15 Temperature 98.1 F Pulse Rate 129 H 99 H 94 H Respiratory 18 19 Rate Blood Pressure 132/75 O2 Sat by Pulse 97 Oximetry 07/18/19 07/18/19 07/18/19 18:31 18:45 19:01 Temperature Pulse Rate 99 H 99 H 94 H Respiratory 23 Rate Blood Pressure 131/70 131/70 O2 Sat by Pulse Oximetry 07/18/19 07/18/19 07/18/19 19:15 19:30 19:31 Temperature Pulse Rate 99 H 99 H Respiratory 23 23 Rate Blood Pressure 131/70 131/70 O2 Sat by Pulse 97 Oximetry 07/18/19 07/18/19 07/18/19 19:53 20:01 20:31 Temperature Pulse Rate 99 H 99 H 93 H Respiratory 29 H 20 Rate Blood Pressure 131/70 131/70 O2 Sat by Pulse Oximetry ED Medical Decision Making - Lab Data Result diagrams: 07/18/19 18:45 07/18/19 18:45 Vital Signs 07/18/19 07/18/19 07/18/19 15:09 18:01 18:15 Temperature 98.1 F Pulse Rate 129 H 99 H 94 H Respiratory 18 19 Rate Blood Pressure 132/75 O2 Sat by Pulse 97 Oximetry 07/18/19 07/18/19 07/18/19 18:31 18:45 19:01 Temperature Pulse Rate 99 H 99 H 94 H Respiratory 23 Rate Blood Pressure 131/70 131/70 O2 Sat by Pulse Oximetry 07/18/19 07/18/19 07/18/19 19:15 19:30 19:31 Temperature Pulse Rate 99 H 99 H Respiratory 23 23 Rate Blood Pressure 131/70 131/70 O2 Sat by Pulse 97 Oximetry 07/18/19 07/18/19 07/18/19 19:53 20:01 20:31 Temperature Pulse Rate 99 H 99 H 93 H Respiratory 29 H 20 Rate Blood Pressure 131/70 131/70 O2 Sat by Pulse Oximetry Lab Results 07/18/19 07/18/19 07/18/19 Range/Units 18:45 18:45 18:45 WBC 7.0 (4.5-11.0) K/mm3 RBC 3.86 (3.65-5.03) M/mm3 Hgb 11.1 (10.1-14.3) gm/dl Hct 33.6 (30.3-42.9) % MCV 87 (79-97) fl MCH 29 (28-32) pg MCHC 33 (30-34) % RDW 14.1 (13.2-15.2) % Plt Count 354 (140-440) K/mm3 Lymph % (Auto) 33.7 (13.4-35.0) % [place] % (Auto) 12.3 H (0.0-7.3) % Eos % (Auto) 0.9 (0.0-4.3) % Baso % (Auto) 1.2 (0.0-1.8) % Lymph # 2.3 (1.2-5.4) K/mm3 [place] # 0.9 H (0.0-0.8) K/mm3 Eos # 0.1 (0.0-0.4) K/mm3 Baso # 0.1 (0.0-0.1) K/mm3 Seg Neutrophils % 51.9 (40.0-70.0) % Seg Neutrophils # 3.6 (1.8-7.7) K/mm3 PT 13.6 (12.2-14.9) Sec. INR 1.03 (0.87-1.13) APTT 22.9 L (24.2-36.6) Sec. D-Dimer 874.05 H (0-234) ng/mlDDU Sodium 135 L (137-145) mmol/L Potassium 4.1 (3.6-5.0) mmol/L Chloride 102.9 (98-107) mmol/L Carbon Dioxide 20 L (22-30) mmol/L Anion Gap 16 mmol/L BUN 24 H (7-17) mg/dL Creatinine 0.6 L (0.7-1.2) mg/dL Estimated GFR > 60 ml/min BUN/Creatinine Ratio 40 % Glucose 99 (65-100) mg/dL Calcium 9.6 (8.4-10.2) mg/dL Magnesium (1.7-2.3) mg/dL Total Bilirubin 0.20 (0.1-1.2) mg/dL AST 29 (5-40) units/L ALT 33 (7-56) units/L Alkaline Phosphatase 78 (35-129) units/L Troponin T < 0.010 (0.00-0.029) ng/mL Total Protein 7.0 (6.3-8.2) g/dL Albumin 3.6 L (3.9-5) g/dL Albumin/Globulin Ratio 1.1 % HCG, Qual (Negative) 07/18/19 07/18/19 Range/Units 18:45 18:45 WBC (4.5-11.0) K/mm3 RBC (3.65-5.03) M/mm3 Hgb (10.1-14.3) gm/dl Hct (30.3-42.9) % MCV (79-97) fl MCH (28-32) pg MCHC (30-34) % RDW (13.2-15.2) % Plt Count (140-440) K/mm3 Lymph % (Auto) (13.4-35.0) % [place] % (Auto) (0.0-7.3) % Eos % (Auto) (0.0-4.3) % Baso % (Auto) (0.0-1.8) % Lymph # (1.2-5.4) K/mm3 [place] # (0.0-0.8) K/mm3 Eos # (0.0-0.4) K/mm3 Baso # (0.0-0.1) K/mm3 Seg Neutrophils % (40.0-70.0) % Seg Neutrophils # (1.8-7.7) K/mm3 PT (12.2-14.9) Sec. INR (0.87-1.13) APTT (24.2-36.6) Sec. D-Dimer (0-234) ng/mlDDU Sodium (137-145) mmol/L Potassium (3.6-5.0) mmol/L Chloride (98-107) mmol/L Carbon Dioxide (22-30) mmol/L Anion Gap mmol/L BUN (7-17) mg/dL Creatinine (0.7-1.2) mg/dL Estimated GFR ml/min BUN/Creatinine Ratio % Glucose (65-100) mg/dL Calcium (8.4-10.2) mg/dL Magnesium 1.80 (1.7-2.3) mg/dL Total Bilirubin (0.1-1.2) mg/dL AST (5-40) units/L ALT (7-56) units/L Alkaline Phosphatase (35-129) units/L Troponin T (0.00-0.029) ng/mL Total Protein (6.3-8.2) g/dL Albumin (3.9-5) g/dL Albumin/Globulin Ratio % HCG, Qual Negative (Negative) - EKG Data -: EKG Interpreted by Dc EKG shows normal: sinus rhythm Rate: tachycardia - Radiology Data Radiology results: report reviewed, image reviewed Recent CT scan reports, and imaging studies are reviewed. X-ray of the chest today is negative for acute findings. - Medical Decision Making Differential diagnosis, including but not limited to: Orthostasis, vagal event, dehydration, acute coronary syndrome, malingering, secondary gain, mitral valve prolapse Assessment and plan: 38-year-old female with multiple recurrent evaluations in this department for chest pain/syncope/near syncope. She has had 2 CAT scans of the chest within the past few weeks, which have been negative for acute findings. The patient's history is inconsistent. She states she has a prescription for Coumadin at a local [facility]. We contacted [facility] and they state the patient has not taken this medication since 2019. The patient also stated that she was at another hospital in another state, with another diagnosis. We contacted the hospital that she listed, and they indicated no record of the patient being there. The patient was observed in this department for hours, her tachycardia resolved, and she had no active vomiting. The patient got herself dressed, and left the emergency room before receiving her discharge paperwork. However, the patient would have been discharged anyhow, with instructions to follow-up. We do have a suspicion for malingering and secondary gain. She does have chronic issues, however, she can follow-up with an outpatient primary care doctor, carpenter general, dye tank tender for her numerous anticoagulant intolerances, and an outpatient psychiatrist. Critical care attestation.: If time is entered above; I have spent that time in minutes in the direct care of this critically ill patient, excluding procedure time. ED Disposition Clinical Impression: History of chest pain, History of syncope Disposition: Z-07 MED SCREENING EXAM-LEFT Is pt being admited?: No Does the pt Need Aspirin: No Condition: Stable Additional Instructions: Do not drive or operate motor vehicles for the next 6 months, or until cleared to do so by a primary care doctor or carpenter general. Please follow-up with an outpatient primary care doctor, carpenter general, dye tank tender, and psychiatrist/therapist within the next 5 to 7 days. Please return to the emergency room right away with new, worsened or different symptoms not present on the initial emergency room evaluation. Return to the emergency room right away with new pain, worsening pain, migration of pain, projectile vomiting, change in mental status, confusion, inability to tolerate liquid feeds, recurrent loss of consciousness. Referrals: NIKKY BARNETT MD [Staff Physician] - 3-5 Days DEVIKA MELO MD [Staff Physician] - 3-5 Days
[2019-07-18 20:05] VITALS: BP 131/70
--- NOTE | 2019-07-18 20:07 | XRay Report ---
CHEST 2 VIEWS INDICATION / CLINICAL INFORMATION: Chest Pain. COMPARISON: Chest x-ray on 06/24/2019 FINDINGS: SUPPORT DEVICES: Stable position of descending thoracic aortic stent. HEART / MEDIASTINUM: No significant abnormality. LUNGS / PLEURA: No significant pulmonary or pleural abnormality. No pneumothorax. ADDITIONAL FINDINGS: No significant additional findings. IMPRESSION: 1. No acute findings. Signer Name: Petr Alonso MD Signed: 07/18/2019 8:02 PM Workstation Name: [id number]
== END 2019-07-18 21:37 | disposition left against medical advice (07) ==
LOC: ED 15:00
DX: R07.89 Other chest pain (principal); R55 Syncope and collapse; I10 Essential (primary) hypertension; K21.9 Gastro-esophageal reflux disease without esophagitis; F41.9 Anxiety disorder, unspecified; F17.200 Nicotine dependence, unspecified, uncomplicated; Z79.899 Other long term (current) drug therapy
CPT/HCPCS: 36415; 71046; 80053; 83735; 84484; 84703; 85025; 85379; 85610; 85730; 93005

== ENCOUNTER 2019-08-31 15:11 | Emergency (ER) | payer SELFPAY ==
[2019-08-31] MEDS ORDERED: ASPIRIN 325 MG TAB PO ONE (15:18)
[2019-08-31 16:11] LABS: Basophils # (Auto) 0.1 K/mm3 (0.0-0.1); Basophils % (Auto) 0.5 % (0.0-1.8); Hematocrit 35.6 % (30.3-42.9); Hemoglobin 11.4 gm/dl (10.1-14.3); Lymphocytes # (Auto) 1.2 K/mm3 (1.2-5.4); Lymphocytes % (Auto) 6.4 % (13.4-35.0); Mean Corpuscular HGB Conc 32 % (30-34); Mean Corpuscular Volume 81 fl (79-97); Monocytes # (Auto) 0.7 K/mm3 (0.0-0.8); Monocytes % (Auto) 3.9 % (0.0-7.3); Platelet Count 398 K/mm3 (140-440); Red Blood Count 4.41 M/mm3 (3.65-5.03)
[2019-08-31 16:21] LABS: INR 1.71 (0.87-1.13)
[2019-08-31 16:22] LABS: Partial Thromboplastin Time 30.4 Sec. (24.2-36.6)
[2019-08-31 16:24] LABS: BUN/Creatinine Ratio 28; Blood Urea Nitrogen 17 mg/dL (7-17); Calcium 9.9 mg/dL (8.4-10.2); Hemolysis Index 21
--- NOTE | 2019-08-31 16:26 | XRay Report ---
CHEST 2 VIEWS INDICATION / CLINICAL INFORMATION: Chest Pain. COMPARISON: 07/18/2019 FINDINGS: SUPPORT DEVICES: None. HEART / MEDIASTINUM: No significant abnormality. LUNGS / PLEURA: Since the prior study of 07/18/2019, a 4 cm oval masslike area has developed in the ri t midlung, right middle lobe. Given the fact this was not present on a very recent chest radiograph , this is unlikely to be a neoplasm and most likely represents fluid in the minor fissure. The remain twin of the lungs are grossly clear. No pleural effusion. No pneumothorax. ADDITIONAL FINDINGS: Endovascular stent is again noted in the descending thoracic aorta unchanged in appearance. IMPRESSION: 1. Interval development of 4 cm oval masslike area in the right midlung. I suspect this represents a small effusion within the minor fissure. CT of the chest can be performed for further evaluation, if clinically warranted. 2. No other significant finding. Signer Name: Rosaline Holguin MD Signed: 08/31/2019 4:21 PM Workstation Name: [id number]
[2019-08-31] MEDS ORDERED: FAMOTIDINE 20 MG TAB PO ONE (20:39)
[2019-08-31] MEDS ORDERED: ONDANSETRON 4 MG ODT TAB PO ONE (20:39)
--- NOTE | 2019-08-31 20:40 | Emergency Department Report ---
ED General Adult HPI - General Chief complaint: Syncope Stated complaint: CP/FAINTING/VOMITING/LEG PAIN PUI?: No Time Seen by Provider: 08/31/19 20:20 Source: patient, RN notes reviewed, old records reviewed Mode of arrival: Ambulatory Limitations: No Limitations - History of Present Illness Initial comments: The patient is a 39-year-old female. I have evaluated this patient multiple times in the past. This patient is well-known to this hospital. I saw this patient on July 18, 2019. Please see that particular chart for the details of the patient's past medical history, and recent extensive and multiple diagnoses. In short, the patient is a 39-year-old female with a reported history of pulmonary embolism, DVT, IVC filter, reported thoracic aortic dissection, status post tevar, anxiety, seizures, pericarditis, report of CAD with stent placement. Patient recently had multiple CT scans of her chest which were negative for acute pathology. In addition, the patient reported to have been admitted to a hospital in [facility], but we called multiple hospitals in [place], both in [place], and in [place], as the patient indicated that she may have been admitted to 1 hospital within the [facility] (she cannot remember specifically, the details of her purported encounter were vague), and it was ultimately ascertained that the patient was not admitted to a hospital in [place] or [place]. The patient was observed in this department for hours, and eventually left the department. During the entire history and physical examination, I am knot bumper and escorted by nurse Lyn Del Valle Today, the patient presents to the ER with a complaint of central chest pain. The pain has been present for approximately a week. It is central and right- sided. It does not radiate to the back, arms or neck. The patient reports 1-2 episodes of emesis at 5:00 this morning, associated with a sensation of near syncope. However, the patient states "I caught myself." She is not currently nauseous at this time. She denies exertional shortness of breath. The reported chest pain is not positional. There is no posterior leg pain or leg swelling. There is no abdominal pain. She is not homicidal or suicidal. She denies diarrhea. She denies overdose, hallucinations, and access to guns or firearms. Her symptoms are reportedly intermittent, and she does not describe exacerbating or relieving factors. -: days(s) Location: chest Radiation: non-radiation Severity scale (0 -10): 8 Consistency: intermittent Improves with: none Worsens with: none - Related Data Home Medications Medication Instructions Recorded Confirmed Last Taken Aspirin EC [Halfprin EC] 81 mg PO QDAY 07/18/19 07/18/19 Unknown Dicyclomine [Bentyl] 10 mg PO Q6HR PRN 07/18/19 07/18/19 Unknown Gabapentin [Neurontin] 300 mg PO BID 07/18/19 07/18/19 Unknown QUEtiapine [SEROquel] 100 mg PO BID 07/18/19 07/18/19 Unknown propranoloL [Inderal] 20 mg PO TID 07/18/19 07/18/19 Unknown Previous Rx's Medication Instructions Recorded Last Taken Type ALPRAZolam [Xanax TAB] 0.5 mg PO BID #20 tablet 11/29/18 Unknown Rx levETIRAcetam [Keppra TAB] 500 mg PO BID #60 tablet 11/29/18 Unknown Rx Acetaminophen [Non-Aspirin Extra 500 mg PO Q6HR PRN #30 tablet 08/31/19 Unknown Rx Strength] Destiny Root [Destiny] 250 mg PO QID PRN #30 capsule 08/31/19 Unknown Rx Metoclopramide [Reglan] 10 mg PO QID PRN #30 tablet 08/31/19 Unknown Rx levoFLOXacin [Levaquin] 750 mg PO QDAY #6 tablet 08/31/19 Unknown Rx Allergies Allergy/AdvReac Type Severity Reaction Status Date / Time garlic Allergy Unknown Verified 07/18/19 15:09 ibuprofen [From Motrin] Allergy Unknown Verified 07/18/19 15:09 oxycodone [From Percocet] Allergy Itching Verified 07/18/19 15:09 peanut oil Allergy Unknown Verified 07/18/19 15:09 Penicillins Allergy Unknown Verified 07/18/19 15:09 ED Review of Systems ROS: Stated complaint: CP/FAINTING/VOMITING/LEG PAIN Other details as noted in HPI Constitutional: denies: fever Eyes: denies: eye discharge Respiratory: denies: shortness of breath Cardiovascular: chest pain Gastrointestinal: nausea, vomiting Genitourinary: denies: dysuria Musculoskeletal: other (Triage documentation is reviewed and appreciated. The patient specifically denies extremity pain to myself). denies: back pain Neurological: denies: weakness, numbness, paresthesias, confusion Psychiatric: denies: homicidal thoughts, suicidal thoughts ED Past Medical Hx - Past Medical History Previous Medical History?: Yes Hx Hypertension: Yes Hx Heart Attack/AMI: (normal stress 10-31-16, normal perfusion scan May 2017) Hx Congestive Heart Failure: No Hx Diabetes: No Hx Deep Vein Thrombosis: Yes Hx Pulmonary Embolism: Yes Hx GERD: Yes Hx Sickle Cell Disease: No Hx Seizures: Yes Hx Psychiatric Treatment: Yes (anxiety) Hx Asthma: No Hx COPD: No Hx Tuberculosis: No Hx HIV: No Additional medical history: pericarditis, pt states hyperthyroidism, thyroid storm, PE x2, (R lung 05/2016, L lung 01/2017--on coumadin), R leg DVT 03/2017, Graves Disease, heart murmur, aortic dissection - Surgical History Past Surgical History?: Yes Hx Coronary Stent: Yes Hx Pacemaker: No Hx Internal Defibrillator: No Additional Surgical History: Left arm surgery 02/2017, Right knee, Rt leg. 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, Thompson Filter - Social History Smoking Status: Current Every Day Smoker - Medications Home Medications: Home Medications Medication Instructions Recorded Confirmed Last Taken Type ALPRAZolam [Xanax TAB] 0.5 mg PO BID #20 tablet 11/29/18 07/18/19 Unknown Rx levETIRAcetam [Keppra TAB] 500 mg PO BID #60 tablet 11/29/18 07/18/19 Unknown Rx Aspirin EC [Halfprin EC] 81 mg PO QDAY 07/18/19 07/18/19 Unknown History Dicyclomine [Bentyl] 10 mg PO Q6HR PRN 07/18/19 07/18/19 Unknown History Gabapentin [Neurontin] 300 mg PO BID 07/18/19 07/18/19 Unknown History QUEtiapine [SEROquel] 100 mg PO BID 07/18/19 07/18/19 Unknown History propranoloL [Inderal] 20 mg PO TID 07/18/19 07/18/19 Unknown History Acetaminophen [Non-Aspirin Extra 500 mg PO Q6HR PRN #30 tablet 08/31/19 Unknown Rx Strength] Destiny Root [Destiny] 250 mg PO QID PRN #30 capsule 07/11/20 Unknown Rx Metoclopramide [Reglan] 10 mg PO QID PRN #30 tablet 08/31/19 Unknown Rx levoFLOXacin [Levaquin] 750 mg PO QDAY #6 tablet 08/31/19 Unknown Rx ED Physical Exam - General Limitations: No Limitations General appearance: alert, in no apparent distress - Head Head exam: Present: atraumatic, normocephalic - Eye Eye exam: Present: normal appearance, EOMI. Absent: nystagmus - ENT ENT exam: Present: normal exam, normal orophraynx, mucous membranes moist, normal external ear exam - Neck Neck exam: Present: normal inspection - Respiratory Respiratory exam: Present: normal lung sounds bilaterally. Absent: respiratory distress, wheezes, rales, rhonchi, stridor - Cardiovascular Cardiovascular Exam: Present: regular rate, normal rhythm, normal heart sounds. Absent: bradycardia, tachycardia, irregular rhythm, systolic murmur, diastolic murmur, rubs, gallop - GI/Abdominal GI/Abdominal exam: Present: soft, normal bowel sounds. Absent: distended, tenderness, guarding, rebound, rigid, pulsatile mass - Extremities Exam Extremities exam: Present: normal inspection, full ROM, other (2+ pulses noted in the bilateral upper and lower extremities. There is no palpable cord. negative Homans sign. Muscular compartments are soft. The pelvis is stable.). Absent: pedal edema, calf tenderness - Back Exam Back exam: Present: normal inspection, full ROM. Absent: tenderness, CVA tenderness (R), CVA tenderness (L), paraspinal tenderness, vertebral tenderness - Neurological Exam Neurological exam: Present: alert, oriented X3, normal gait, other (No facial droop. Tongue midline. Extraocular movements intact bilaterally. Facial sensation intact to light touch in V1, V2, V3 distribution bilaterally. 5 and a 5 strength in 4 extremities. Sensation intact to light touch in 4 extremities.). Absent: motor sensory deficit - Psychiatric Psychiatric exam: Absent: homicidal ideation, suicidal ideation - Skin Skin exam: Present: warm, dry, intact, normal color. Absent: rash ED Course Vital Signs 08/31/19 08/31/19 15:18 20:29 Temperature 97.2 F L 97.5 F L Pulse Rate 76 67 Respiratory 18 20 Rate Blood Pressure 114/55 Blood Pressure 130/63 [Left] O2 Sat by Pulse 97 100 Oximetry - Reevaluation(s) Reevaluation #1: 08/31/19 20:50 Differential diagnosis, including but not limited to: Pneumonia, empyema, pneumothorax, GERD, gastritis, hiatal hernia Assessment and plan: 39-year-old female with a complaint of nausea vomiting and right-sided chest pain. She is afebrile with reassuring vital signs. She is not currently tachycardic, tachypneic or hypoxic. Troponin negative x2. EKG unchanged x2. Given recent objective negative diagnostic testing and vital signs at this time, I think a pulmonary embolism is quite unlikely. Given duration of symptoms, unchanged EKG, negative troponin x2, I find the patient to be low risk for major adverse cardiac event. She is low risk by heart score. X-ray of the chest is reviewed and appreciated, new onset right-sided oval mass is appreciated, noncontrast CT scan of the chest will be obtained to further evaluate. We will treat the patient's symptoms at this time. We will reassess 08/31/19 20:55 Reevaluation #2: 08/31/19 21:46 Patient resting comfortably in her stretcher and in no acute distress. She is not tachypneic, tachycardic or hypoxic. Curb 65 score: 0 points Low risk group: 0.6% 30-day mortality. Consider outpatient treatment. Patient suitable for trial of oral outpatient management. Leukocytosis is reviewed and appreciated. However, given lack of tachycardia, tachypnea, hypoxia, ability to tolerate oral feeds, complete lack of clinical respiratory distress, low risk for mortality on curb 65 score, close ability to follow-up, I would consider the patient reasonable to follow-up as an outpatient. Do not suspect COVID at this time. 08/31/19 21:47 ED Medical Decision Making - Lab Data Result diagrams: 08/31/19 15:38 08/31/19 15:38 Vital Signs 08/31/19 08/31/19 15:18 20:29 Temperature 97.2 F L 97.5 F L Pulse Rate 76 67 Respiratory 18 20 Rate Blood Pressure 114/55 Blood Pressure 130/63 [Left] O2 Sat by Pulse 97 100 Oximetry Lab Results 08/31/19 08/31/19 08/31/19 Range/Units 15:38 15:38 15:38 WBC 18.7 H (4.5-11.0) K/mm3 RBC 4.41 (3.65-5.03) M/mm3 Hgb 11.4 (10.1-14.3) gm/dl Hct 35.6 (30.3-42.9) % MCV 81 (79-97) fl MCH 26 L (28-32) pg MCHC 32 (30-34) % RDW 14.0 (13.2-15.2) % Plt Count 398 (140-440) K/mm3 Lymph % (Auto) 6.4 L (13.4-35.0) % [place] % (Auto) 3.9 (0.0-7.3) % Eos % (Auto) 0.0 (0.0-4.3) % Baso % (Auto) 0.5 (0.0-1.8) % Lymph # 1.2 (1.2-5.4) K/mm3 [place] # 0.7 (0.0-0.8) K/mm3 Eos # 0.0 (0.0-0.4) K/mm3 Baso # 0.1 (0.0-0.1) K/mm3 Seg Neutrophils % 89.2 H (40.0-70.0) % Seg Neutrophils # 16.7 H (1.8-7.7) K/mm3 PT 19.6 H (12.2-14.9) Sec. INR 1.71 H (0.87-1.13) APTT 30.4 (24.2-36.6) Sec. Sodium 135 L (137-145) mmol/L Potassium 5.0 (3.6-5.0) mmol/L Chloride 101.4 (98-107) mmol/L Carbon Dioxide 19 L (22-30) mmol/L Anion Gap 20 mmol/L BUN 17 (7-17) mg/dL Creatinine 0.6 L (0.7-1.2) mg/dL Estimated GFR > 60 ml/min BUN/Creatinine Ratio 28 % Glucose 133 H (65-100) mg/dL Calcium 9.9 (8.4-10.2) mg/dL Troponin T < 0.010 (0.00-0.029) ng/mL 08/31/19 Range/Units 19:35 WBC (4.5-11.0) K/mm3 RBC (3.65-5.03) M/mm3 Hgb (10.1-14.3) gm/dl Hct (30.3-42.9) % MCV (79-97) fl MCH (28-32) pg MCHC (30-34) % RDW (13.2-15.2) % Plt Count (140-440) K/mm3 Lymph % (Auto) (13.4-35.0) % [place] % (Auto) (0.0-7.3) % Eos % (Auto) (0.0-4.3) % Baso % (Auto) (0.0-1.8) % Lymph # (1.2-5.4) K/mm3 [place] # (0.0-0.8) K/mm3 Eos # (0.0-0.4) K/mm3 Baso # (0.0-0.1) K/mm3 Seg Neutrophils % (40.0-70.0) % Seg Neutrophils # (1.8-7.7) K/mm3 PT (12.2-14.9) Sec. INR (0.87-1.13) APTT (24.2-36.6) Sec. Sodium (137-145) mmol/L Potassium (3.6-5.0) mmol/L Chloride (98-107) mmol/L Carbon Dioxide (22-30) mmol/L Anion Gap mmol/L BUN (7-17) mg/dL Creatinine (0.7-1.2) mg/dL Estimated GFR ml/min BUN/Creatinine Ratio % Glucose (65-100) mg/dL Calcium (8.4-10.2) mg/dL Troponin T < 0.010 (0.00-0.029) ng/mL - EKG Data -: EKG Interpreted by Ny EKG shows normal: sinus rhythm Rate: normal - EKG Data When compared to previous EKG there are: no significant change 08/31/19 20:50 EKG #1 shows a sinus rhythm, 74 bpm, normal axis, normal intervals, high left ventricular voltage, not a STEMI, EKG #2 is unchanged from prior, there is question early repolarization Both EKGs are unchanged from prior EKGs from 07/25/2019 - Radiology Data Radiology results: pending, report reviewed, image reviewed Print Report Referring Physician: ED DOC Patient Name: FELIZ HERRING Date of : 1980 Sex: Female Report Date: 2019-08-31 Report Status: Finalized Findings [facility] [address] [place] [address] XRay Report Signed Patient: FELIZ HERRING MR#: [id number] : 1980 Acct:[id number] Age/Sex: 39 / F ADM Date: 08/31/19 Loc: ED Attending Dr: Ordering Physician: LUL SEO MD Date of Service: 08/31/19 Procedure(s): XR chest routine 2V Accession Number(s): [id number] cc: LUL SEO MD Fluoro Time In Minutes: CHEST 2 VIEWS INDICATION / CLINICAL INFORMATION: Chest Pain. COMPARISON: 07/18/2019 FINDINGS: SUPPORT DEVICES: None. HEART / MEDIASTINUM: No significant abnormality. LUNGS / PLEURA: Since the prior study of 07/18/2019, a 4 cm oval masslike area has developed in the right midlung, right middle lobe. Given the fact this was not present on a very recent chest radi ograph, this is unlikely to be a neoplasm and most likely represents fluid in the minor fissure. The remainder of the lungs are grossly clear. No pleural effusion. No pneumothorax. ADDITIONAL FINDINGS: Endovascular stent is again noted in the descending thoracic aorta unchanged in appearance. IMPRESSION: 1. Interval development of 4 cm oval masslike area in the right midlung. I suspect this represents a small effusion within the minor fissure. CT of the chest can be performed for further evaluation, if clinically warranted. 2. No other significant finding. Signer Name: Rosaline Holguin MD Signed: 08/31/2019 4:21 PM Workstation Name: [id number] Transcribed By: JR Dictated By: Rosaline Holguin MD Electronically Authenticated By: Rosaline Holguin MD Signed Date/Time: 08/31/19 1621 [id number]/ [id number] Critical care attestation.: If time is entered above; I have spent that time in minutes in the direct care of this critically ill patient, excluding procedure time. ED Disposition Clinical Impression: Right-sided chest pain, History of nausea and vomiting Disposition: DC-01 TO HOME OR SELFCARE Is pt being admited?: No Does the pt Need Aspirin: No Condition: Stable Instructions: Pneumonia (ED) Additional Instructions: Please drink plenty of fluids, at least 4 to 6 cups of water per day inde finitely. Take the pain medication, nausea medication, antibiotics as needed and directed. Do not consume alcohol. Follow-up with your primary care doctor within the next 3 to 5 days for repeat checkup/evaluation. Do not drive or operate motor vehicles until cleared to do so by a primary care doctor or building construction engineer. We do recommend that the patient follow-up with an outpatient building construction engineer wi thin the next 7 days for complaint of chest pain, and possible loss of consciousness. Please return to the emergency room right away with new pain, worsening pain, migration of pain, projectile vomiting, change in mental status, confusion, inability to tolerate liquid feeds, new, worsened or different symptoms not present on the initial emergency room evaluation. Referrals: NIKKY BARNETT MD [Staff Physician] - 3-5 Days SHAQUILLE CORRALES MD [Staff Physician] - 3-5 Days
[2019-08-31] MEDS ORDERED: ACETAMINOPHEN 325 MG TAB PO ONE (20:52)
--- NOTE | 2019-08-31 21:41 | Cat Scan Report ---
CT chest wo con INDICATION: right sided cp, new oval mass in right chest x ray. TECHNIQUE: All CT scans at this location are performed using the following dose modulation technique: Automated exposure control. CONTRAST: None. COMPARISON: Chest x-ray earlier the same day. FINDINGS: Dense infiltrate with air bronchograms within the lateral aspect of the right middle lobe. Additional infiltrates are seen within the right middle lobe anteriorly and within the right lower lo be posteriorly and laterally. No pleural fluid. Mild dependent atelectasis on the left No mediastinal mass or adenopathy upper abdomen is unremarkable. Status post previous thoracic aortic stent graft placement. IMPRESSION: Multifocal right-sided pneumonia. Signer Name: Josiah Castro MD Signed: 08/31/2019 9:37 PM Workstation Name: [id number]
[2019-08-31] MEDS ORDERED: levoFLOXacin 750 MG TAB PO ONE (21:43)
[2019-08-31 22:10] VITALS: BP 120/66
== END 2019-08-31 21:59 | disposition home or self-care (01) ==
LOC: ED 15:11
DX: R07.9 Chest pain, unspecified (principal); R11.2 Nausea with vomiting, unspecified; I10 Essential (primary) hypertension; K21.9 Gastro-esophageal reflux disease without esophagitis
CPT/HCPCS: 36415; 71046; 71250; 80048; 84484; 85025; 85610; 85730; 93005; 99285; Q0162

== ENCOUNTER 2020-01-01 14:43 | Emergency (ER) | payer SELFPAY ==
[2020-01-01 16:11] VITALS: BP 116/58
--- NOTE | 2020-01-01 16:12 | Emergency Department Report ---
Blank Doc - Documentation Documentation: 39-year-old F [place] female with a significant large past medical history in cluding but not limited to CAD, thyroid disorder with thyrotoxicosis, DVT and bipolar among several others presents emergency department complaining of repetitive episodes of syncope of unknown etiology associated with chest pain and palpitations. Her EKG was found to have atrial fibrillation today which she reports no known history This initial assessment/diagnostic orders/clinical plan/treatment(s) is/are subject to change based on patients health status, clinical progression and re- assessment by fellow clinical providers in the ED. Further treatment and workup at subsequent clinical providers discretion. Patient/guardian urged not to elope from the ED as their condition may be serious if not clinically assessed and managed. Initial orders include: EKG, chest x-ray, labs, further evaluation for her what appears to be new onset atrial fibrillation
--- NOTE | 2020-01-01 17:24 | XRay Report ---
CHEST PA AND LATERAL VIEWS INDICATION: Chest Pain. COMPARISON: 08/31/2019 FINDINGS: Support devices: Unchanged. Heart: Normal and unchanged. Endograft in the descending thoracic aorta, unchanged. Lungs/Pleura: Focal right midlung density has almost completely resolved. Only very minimal density p ersists in this area. Left lung remains clear. IMPRESSION: 1. Virtually complete resolution of the right midlung disease. No definite acute disease. Signer Name: Erick Carrillo MD Signed: 01/01/2020 5:20 PM Workstation Name: [id number]
--- NOTE | 2020-01-01 17:28 | Vascular Lab Report ---
DUPLEX DOPPLER LOWER EXTREMITY VEINS, LEFT INDICATION: lower ext swelling and pain. Lower extremity pain and swelling. TECHNIQUE: Duplex doppler imaging was performed through the veins of the left lower extremity using venous compr ession and other maneuvers. COMPARISON: None available. FINDINGS: Common Femoral vein: Negative. Superficial Femoral vein: Negative. Popliteal vein: Negative. Calf veins: Negative. Additional findings: None. IMPRESSION: 1. No sonographic evidence for DVT in the left lower extremity. Signer Name: Dom Tom MD Signed: 01/01/2020 5:23 PM Workstation Name: [id number]
--- NOTE | 2020-01-01 18:15 | Emergency Department Report ---
ED General Adult HPI - General Chief complaint: Chest Pain Stated complaint: CHEST PAIN,SWEATING, LEG PAIN PUI?: No Time Seen by Provider: 01/01/20 17:31 Source: patient, RN notes reviewed, old records reviewed Mode of arrival: Ambulatory Limitations: No Limitations - History of Present Illness Initial comments: The patient was evaluated in the emergency department for symptoms described in the history of present illness. He/she was evaluated in the context of the global COVID-19 pandemic, which necessitated consideration that the patient might be at risk for infection with the virus that causes COVID-19. Institutional protocols and algorithms that pertain to the evaluation of patients at risk for COVID-19 are in a state of rapid change based on information released by regulatory bodies including the CDC and federal and state organizations. These policies and algorithms were followed during the patient's care in the emergency department. Please note that these policies, procedures and recommendations changed on a rapid basis. This is a 39-year-old female. During the entire history and physical examination, I am chaperoned/escorted by library serials assistant Ms. Hattie Wilkinson. I have evaluated this patient multiple times in the past. Recent objective diagnostic testing includes the following tests: Noncontrast CT scan of the chest, August 2019: Positive for right-sided pneumonia, negative for acute pathology. CT angiogram chest, June 2019, May 2019, June 2018. Negative for acute findings, pulmonary embolism or dissection. This patient is a frequent utilizer of this emergency room. She typically presents with complaints of chest pain, and syncope. It has been suspected in the past that the patient has been fabricating symptoms, or not been honest about her past history, as in the past, she is indicated being admitted to/evaluated at other hospitals, including the [facility], and when this was cross checked, her claims were not verified. In addition, the patient indicates multiple allergies/intolerances, and has made requests/implications in the past that she would like to be admitted to be started on unfractionated heparin. Today, she presents to the ER with multiple complaints. Her first complaint is "fainting." She reports that over the past 2 weeks, she has "fainted", 5 times. She states that today, at around 11:00, she was walking, and "I think I fainted." She indicates that she did not fall or hit her head, "because my home girl caught me." Prior to this event, she was not having any physical pain, with the exception of central nonradiating anterior bilateral chest wall pain. This chest wall pain has been present for 2 weeks. Prior to today, she reports that 2 to 3 days ago, she felt like she was walking, and may have lost consciousness. Prior to that, she reports losing consciousness or fainting, approximately 1 week ago. The patient states that she is on tramadol. She states tramadol is not helping out her pain. She also states that she is on Coumadin, which is prescribed to her from the [facility]. She denies fever, cough, reports 1 episode of vomiting, now resolved, denies abdominal pain, hematemesis, urinary symptoms, reports that she is not , denies recent travel, surgery, oral contraceptive use, and she is not homicidal or suicidal. She reports that she is unfortunately allergic/intolerant to ibuprofen, as well as acetaminophen. She also complains of central and bilateral anterior chest wall pain, which does not radiate to the back, arms or neck, which is constantly present for the past 2 weeks. She also endorses bilateral nontraumatic knee pain, and subjective lower extremity swelling. She states she is compliant with her outpatient medications, which include tramadol, as well as Coumadin. -: week(s) Location: chest, left, right, lower extremity Consistency: intermittent Improves with: other (Chest wall pain increases with palpation, decreases with rest. Fainting has no exacerbating or relieving factors. Lower extremity swelling has no exacerbating or relieving factors that she is aware of) - Related Data Home Medications Medication Instructions Recorded Confirmed Last Taken Dicyclomine [Bentyl] 10 mg PO Q6HR PRN 07/18/19 07/18/19 Unknown Gabapentin [Neurontin] 300 mg PO BID 07/18/19 07/18/19 Unknown QUEtiapine [SEROquel] 100 mg PO BID 07/18/19 07/18/19 Unknown propranoloL [Inderal] 20 mg PO TID 07/18/19 07/18/19 Unknown Previous Rx's Medication Instructions Recorded Last Taken Type ALPRAZolam [Xanax TAB] 0.5 mg PO BID #20 tablet 11/29/18 Unknown Rx levoFLOXacin [Levaquin] 750 mg PO QDAY #6 tablet 08/31/19 Unknown Rx Acetaminophen [Non-Aspirin Extra 500 mg PO Q6HR PRN #30 tablet 01/01/20 Unknown Rx Strength] Aspirin EC [Halfprin EC] 81 mg PO QDAY #30 01/01/20 Unknown Rx Destiny Root [Destiny] 250 mg PO QID PRN #30 capsule 01/01/20 Unknown Rx Metoclopramide [Reglan TAB] 10 mg PO QID PRN #15 tablet 01/01/20 Unknown Rx levETIRAcetam [Keppra TAB] 500 mg PO BID #60 tablet 01/01/20 Unknown Rx Allergies Allergy/AdvReac Type Severity Reaction Status Date / Time garlic Allergy Unknown Verified 07/18/19 15:09 ibuprofen [From Motrin] Allergy Unknown Verified 07/18/19 15:09 oxycodone [From Percocet] Allergy Itching Verified 07/18/19 15:09 peanut oil Allergy Unknown Verified 07/18/19 15:09 Penicillins Allergy Unknown Verified 07/18/19 15:09 ED Review of Systems ROS: Stated complaint: CHEST PAIN,SWEATING, LEG PAIN Other details as noted in HPI Constitutional: denies: fever Eyes: denies: eye discharge ENT: denies: congestion Respiratory: denies: cough Cardiovascular: chest pain, edema, syncope Gastrointestinal: nausea. denies: abdominal pain, hematemesis, melena Musculoskeletal: myalgia Neurological: denies: headache Psychiatric: denies: homicidal thoughts, suicidal thoughts Hematological/Lymphatic: denies: easy bleeding ED Past Medical Hx - Past Medical History Previous Medical History?: Yes Hx Hypertension: Yes Hx Heart Attack/AMI: (normal stress 10-31-16, normal perfusion scan May 2017) Hx Congestive Heart Failure: No Hx Diabetes: No Hx Deep Vein Thrombosis: Yes Hx Pulmonary Embolism: Yes Hx GERD: Yes Hx Sickle Cell Disease: No Hx Seizures: Yes Hx Psychiatric Treatment: Yes (anxiety) Hx Asthma: No Hx COPD: No Hx Tuberculosis: No Hx HIV: No Additional medical history: pericarditis, pt states hyperthyroidism, thyroid storm, PE x2, (R lung 05/2016, L lung 01/2017--on coumadin), R leg DVT 03/2017, Graves Disease, heart murmur, aortic dissection - Surgical History Past Surgical History?: Yes Hx Coronary Stent: Yes Hx Pacemaker: No Hx Internal Defibrillator: No Additional Surgical History: Left arm surgery 02/2017, Right knee, Rt leg. 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, [place]a Filter - Social History Smoking Status: Never Smoker Substance Use Type: None - Medications Home Medications: Home Medications Medication Instructions Recorded Confirmed Last Taken Type ALPRAZolam [Xanax TAB] 0.5 mg PO BID #20 tablet 11/29/18 07/18/19 Unknown Rx Dicyclomine [Bentyl] 10 mg PO Q6HR PRN 07/18/19 07/18/19 Unknown History Gabapentin [Neurontin] 300 mg PO BID 07/18/19 07/18/19 Unknown History QUEtiapine [SEROquel] 100 mg PO BID 07/18/19 07/18/19 Unknown History propranoloL [Inderal] 20 mg PO TID 07/18/19 07/18/19 Unknown History levoFLOXacin [Levaquin] 750 mg PO QDAY #6 tablet 08/31/19 Unknown Rx Acetaminophen [Non-Aspirin Extra 500 mg PO Q6HR PRN #30 tablet 01/01/20 Unknown Rx Strength] Aspirin EC [Halfprin EC] 81 mg PO QDAY #30 01/01/20 Unknown Rx Destiny Root [Destiny] 250 mg PO QID PRN #30 capsule 01/01/20 Unknown Rx Metoclopramide [Reglan TAB] 10 mg PO QID PRN #15 tablet 01/01/20 Unknown Rx levETIRAcetam [Keppra TAB] 500 mg PO BID #60 tablet 01/01/20 Unknown Rx ED Physical Exam - General Limitations: No Limitations General appearance: alert, in no apparent distress, obese - Head Head exam: Present: atraumatic, normocephalic - Eye Eye exam: Present: normal appearance, EOMI. Absent: nystagmus - ENT ENT exam: Present: normal exam, normal orophraynx, mucous membranes moist, normal external ear exam - Neck Neck exam: Present: normal inspection, full ROM. Absent: tenderness, meningismus - Respiratory Respiratory exam: Present: normal lung sounds bilaterally, chest wall tenderness. Absent: respiratory distress, wheezes, rales, rhonchi, stridor - Cardiovascular Cardiovascular Exam: Present: regular rate, normal rhythm, normal heart sounds. Absent: bradycardia, tachycardia, irregular rhythm, systolic murmur, diastolic murmur, rubs, gallop - GI/Abdominal GI/Abdominal exam: Present: soft. Absent: distended, tenderness, guarding, rebound, rigid, pulsatile mass - Extremities Exam Extremities exam: Present: normal inspection, full ROM, pedal edema, other (2+ pulses noted in the bilateral upper and lower extremities. There is no palpable cord. negative Homans sign. Muscular compartments are soft. The pelvis is stable.). Absent: calf tenderness - Back Exam Back exam: Present: normal inspection, paraspinal tenderness. Absent: tenderness, CVA tenderness (R), CVA tenderness (L), vertebral tenderness - Neurological Exam Neurological exam: Present: alert, oriented X3, normal gait, other (No facial droop. Tongue midline. Extraocular movements intact bilaterally. Facial sensation intact to light touch in V1, V2, V3 distribution bilaterally. 5 and a 5 strength in 4 extremities. Sensation intact to light touch in 4 extremities.). Absent: motor sensory deficit - Psychiatric Psychiatric exam: Present: flat affect. Absent: homicidal ideation, suicidal ideation - Skin Skin exam: Present: warm, dry, intact, normal color. Absent: rash ED Course Vital Signs 01/01/20 01/01/20 16:09 18:00 Temperature 98.3 F Pulse Rate 66 Respiratory 18 16 Rate Blood Pressure 116/58 O2 Sat by Pulse 98 Oximetry ED Medical Decision Making - Lab Data Vital Signs 01/01/20 16:09 Temperature 98.3 F Pulse Rate 66 Respiratory 18 Rate Blood Pressure 116/58 O2 Sat by Pulse 98 Oximetry - EKG Data -: EKG Interpreted by Fl EKG shows normal: sinus rhythm Rate: normal - EKG Data 01/01/20 18:16 Sinus rhythm, 66 bpm, normal axis, normal intervals, motion artifact, abnormal EKG, not a STEMI - Radiology Data Radiology results: report reviewed, image reviewed CHEST PA AND LATERAL VIEWS INDICATION: Chest Pain. COMPARISON: 08/31/2019 FINDINGS: Support devices: Unchanged. Heart: Normal and unchanged. Endograft in the descending thoracic aorta, unchanged. Lungs/Pleura: Focal right midlung density has almost completely resolved. Only very minimal density persists in this area. Left lung remains clear. IMPRESSION: 1. Virtually complete resolution of the right midlung disease. No definite acute disease. Signer Name: Erick Carrillo MD Signed: 01/01/2020 4:20 PM Workstation Name: [id number] DUPLEX DOPPLER LOWER EXTREMITY VEINS, LEFT INDICATION: lower ext swelling and pain. Lower extremity pain and swelling. TECHNIQUE: Duplex doppler imaging was performed through the veins of the left lower extremity using venous compression and other maneuvers. COMPARISON: None available. FINDINGS: Common Femoral vein: Negative. Superficial Femoral vein: Negative. Popliteal vein: Negative. Calf veins: Negative. Additional findings: None. IMPRESSION: 1. No sonographic evidence for DVT in the left lower extremity. Signer Name: Dom Tom MD Signed: 01/01/2020 4:[address] chest wo con INDICATION: right sided cp, new oval mass in right chest x ray. TECHNIQUE: All CT scans at this location are performed using the following dose modulation technique: Automated exposure control. CONTRAST: None. COMPARISON: Chest x-ray earlier the same day. FINDINGS: Dense infiltrate with air bronchograms within the lateral aspect of the right middle lobe. Additional infiltrates are seen within the right middle lobe anteriorly and within the right lower lobe posteriorly and laterally. No pleural fluid. Mild dependent atelectasis on the left No mediastinal mass or adenopathy upper abdomen is unremarkable. Status post previous thoracic aortic stent graft placement. IMPRESSION: Multifocal right-sided pneumonia. Signer Name: Josiah Castro MD Signed: 08/31/2019 8:37 PM Workstation Name: [id number] CT angio chest INDICATION / CLINICAL INFORMATION: Chest pain. History of pulmonary embolus. TECHNIQUE: Axial CT images were obtained after injection of Omnipaque 350, 100 IV contrast using CTA protocol. 3 plane MIP / 3D reconstructions were produced. All CT scans at this location are performed using CT dose reduction for ALARA by means of automated exposure control. COMPARISON: None available. FINDINGS: Negative for lung mass, infiltrate or pleural fluid. Mild dependent scarring is present. No mediastinal mass or adenopathy. Imaging of the upper abdomen is unremarkable. No aneurysm, dissection or pulmonary embolus a descending thoracic aortic stent graft is widely patent. IMPRESSION: 1. Negative for pulmonary embolus or pneumonia. 2. Dependent scarring. Signer Name: Josiah Castro MD Signed: 06/24/2019 10:46 PM Workstation Name: [id number] CTA CHEST WITH IV CONTRAST INDICATION: Chest pain, syncope, hx of pte, aortic graft CONTRAST: 100 cc Omnipaque 350 IV COMPARISON: Noncontrast CT chest 06/09/2019, CTA chest 06/22/2018 Three-plane MIP reconstructions were produced. All CT scans at this location are performed using CT dose reduction for ALARA by means of automated exposure control. FINDINGS: No significant axillary or chest wall lesions are seen. No mediastinal or hilar masses are seen. Visualized portions of the upper abdomen show no significant abnormalities. No pleural effusions are seen. No obvious endobronchial lesions are noted. No pneumothorax or pneumomediastinum are seen. No pulmonary nodules or masses are noted. No areas of consolidation are seen. Mild atelectatic changes are noted in the lung bases, more on the left. Aorta shows again the descending segment stent graft. Good flow is seen through the graft. No aneurysmal dilatation or evidence of dissection is seen. Good flow is seen in the major branches. Good opacification of the pulmonary arterial system was achieved. I do not see evidence of pulmonary thromboembolism. IMPRESSION: No acute abnormalities are seen Signer Name: Mario Travis MD Signed: 06/16/2019 12:34 AM Workstation Name: [id number] cc: ULISES GREENFIELD MD CTA CHEST INDICATION: Syncope. COMPARISON: 03/15/2018 chest CTA. FINDINGS: Chest CTA performed following intravenous administration of 100 cc of Omnipaque 350. Rotational MIP's also obtained. Stable mild cardiomegaly and descending aortic stent. No aortic aneurysm or dissection. Interval resolution of small linear right pulmonary arterial filling defect centrally. No other focal suspicious filling defects noted. No effusions or size significant adenopathy. Patent central airway. Stable thyroid. Mild left lower lobe scarring again noted. Interval clearing of 1.5 x 1 cm bilobed right lower lobe pulmonary nodule/opacity. Nonspecific distal esophageal mild wall prominence/thickening, not excluded for gastroesophageal reflux and/or hiatal hernia, amongst others. Imaged upper abdomen again demonstrates left hepatic lobe tip extending into the left upper quadrant. Unremarkable bones. CONCLUSION: Interval improvement without acute CT abnormality or evidence of pulmonary embolism with few other incidental findings, as above. Thank you for the opportunity to participate in this patient's care. Transcribed By: RS Dictated By: TACO TOLBERT MD Electronically Authenticated By: TACO TOLBERT MD Signed Date/Time: 06/22/18 1406 DD/ 1359 TD/TT: 06/22/18 1406 - Medical Decision Making Differential diagnosis, including but not limited to: Costochondritis, malingering, secondary gain, orthostasis, vagal event, narcotic dependence Assessment and plan: 39-year-old female who frequently presents to this department with complaints of chest pain and syncope. Her recent objective diagnostic testing, has all been unremarkable for acute pathology. She has reproducible chest wall pain, and a fairly unremarkable EKG. I counseled the patient that we would provide nonnarcotic therapy, including acetaminophen, if she could tolerate, as well as famotidine/Pepcid and Maalox. I advised the patient we would not be dispensing narcotic therapy. We did recommend basic laboratory studies, and observation in the emergency room. The patient is refusing these interventions. The patient is going to leave AGAINST MEDICAL ADVICE. The patient is alert, oriented, clinically sober, and exhibits decision-making capacity. She is free from distracting injury. She is counseled that she may return to the emergency room right away if and when she changes her mind. Conversation witnessed by nurse Julius Cline. \\ Please note that this patient presents frequently to this department with similar complaints, and has had multiple recent objective diagnostic work-ups which have been unremarkable. In addition, I have evaluated this patient personally multiple times, and have never witnessed the patient to have an episode of syncope, loss of consciousness, or have any kind of demonstration of hemodynamic instability. Her chronic medical history is reviewed and appreciated, but over the past year and a half, she has not had any objective significant pathology demonstrated here in this emergency department. Critical care attestation.: If time is entered above; I have spent that time in minutes in the direct care of this critically ill patient, excluding procedure time. ED Disposition Clinical Impression: Chest wall pain, History of syncope, Lower extremity pain Disposition: [id number] LEFT AGAINST MED ADVICE Is pt being admited?: No Does the pt Need Aspirin: No Condition: Undetermined Instructions: Chest Pain (ED) Additional Instructions: As we discussed, you have left the hospital/emergency room AGAINST MEDICAL ADVICE. By leaving, you risked , disability, paralysis, permanent loss of quality of life. The ER is open 24 hours a day, 7 days a week. It never closes. Please return to the emergency room right away if and when you change your mind. If you decide not to return to the emergency room, please follow-up with the listed physician referrals as soon as possible. Prescriptions: Destiny Root [Destiny] 250 mg PO QID PRN #30 capsule PRN Reason: Nausea Aspirin EC [Halfprin EC] 81 mg PO QDAY #30 levETIRAcetam [Keppra TAB] 500 mg PO BID #60 tablet Acetaminophen [Non-Aspirin Extra Strength] 500 mg PO Q6HR PRN #30 tablet PRN Reason: Pain , Severe (7-10) Metoclopramide [Reglan TAB] 10 mg PO QID PRN #15 tablet PRN Reason: Nausea Referrals: DEVIKA MELO MD [Staff Physician] - 3-5 Days CATHERINE DOTSON MD [Staff Physician] - 3-5 Days [facility] [Provider Group] - 3-5 Days
== END 2020-01-01 18:22 | disposition left against medical advice (07) ==
LOC: ED 14:43
DX: R07.89 Other chest pain (principal); R55 Syncope and collapse; M79.606 Pain in leg, unspecified; I10 Essential (primary) hypertension; I25.2 Old myocardial infarction; E11.9 Type 2 diabetes mellitus without complications; G40.909 Epilepsy, unspecified, not intractable, without status epilepticus; F41.9 Anxiety disorder, unspecified; Z98.890 Other specified postprocedural states; Z88.0 Allergy status to penicillin; Z88.8 Allergy status to other drugs, medicaments and biological substances
CPT/HCPCS: 71046; 93005

== ENCOUNTER 2020-03-21 00:11 | Emergency (ER) | payer SELFPAY ==
[2020-03-21 00:29] VITALS: BP 149/80
--- NOTE | 2020-03-21 01:12 | XRay Report ---
CHEST 1 VIEW 12:42 AM INDICATION / CLINICAL INFORMATION: Chest pain. COMPARISON: 01/01/20. FINDINGS: SUPPORT DEVICES: None. HEART / MEDIASTINUM: The heart size and pulmonary vasculature are normal. A stent graft involving the descending thoracic aorta is unchanged. LUNGS / PLEURA: No significant pulmonary or pleural abnormality. No pneumothorax. ADDITIONAL FINDINGS: No significant additional findings. IMPRESSION: No acute findings. Signer Name: Paco Cassidy MD Signed: 03/21/2020 1:08 AM Workstation Name: [id number]
--- NOTE | 2020-03-21 02:12 | Emergency Department Report ---
ED Chest Pain HPI - General Chief Complaint: Chest Pain Stated Complaint: CHEST PAIN PUI?: No Time Seen by Provider: 03/21/20 02:07 Source: patient Mode of arrival: Ambulatory Limitations: No Limitations - History of Present Illness Initial Comments: Patient is a 39-year-old female that presents emergency room with complaints of chest pain. Patient states her chest pain going on for 1 week. Patient also complains of bilateral leg pain. Patient states she has a history of DVT. Patient states she is compliant with her warfarin. Patient states her INR was checked 2 weeks ago and was at 1.6. Patient states her chest pain is a 9 out of 10. Patient states her chest pain is worse with palpation and movement. Patient states that her chest pain is better with rest. Patient states she is also had some nausea and vomiting. Patient states that she had some Zofran at home and she had great relief with the nausea and vomiting from Zofran. Patient states the chest pain is in the center of her chest and is nonradiating. Patient denies shortness of breath. Patient denies abdominal pain. Patient denies acid reflux. Patient denies anxiety. Patient denies diaphoresis. Patient states that her bilateral leg pain is a 2 out of 10. Patient denies recent travel. Patient denies recent international travel. Patient denies exposure to the novel coronavirus. Patient denies sick contacts. Patient denies fever and chills. Patient denies cough. Patient denies diarrhea. Patient denies coming in contact with anybody with symptoms of the novel coronavirus. MD Complaint: chest pain -: Sudden Onset: during rest Pain Location: substernal Pain Radiation: none Severity: severe Severity scale (0 -10): 10 Quality: sharp Consistency: constant Improves With: rest Worsens With: palpation, movement re: nausea, vomting. denies: diaphoresis, dyspnea, sense of impending doom Other Symptoms: denies: cough, fever, syncope, rash, acid taste in mouth, leg swelling, palpitations, burping Treatments Prior to Arrival: other (Gabapentin and tramadol.) Aspirin use within the Past 7 Days: (0) No - Related Data Home Medications Medication Instructions Recorded Confirmed Last Taken Dicyclomine [Bentyl] 10 mg PO Q6HR PRN 07/18/19 07/18/19 Unknown Gabapentin [Neurontin] 300 mg PO BID 07/18/19 07/18/19 Unknown QUEtiapine [SEROquel] 100 mg PO BID 07/18/19 07/18/19 Unknown propranoloL [Inderal] 20 mg PO TID 07/18/19 07/18/19 Unknown Previous Rx's Medication Instructions Recorded Last Taken Type ALPRAZolam [Xanax TAB] 0.5 mg PO BID #20 tablet 11/29/18 Unknown Rx levoFLOXacin [Levaquin] 750 mg PO QDAY #6 tablet 08/31/19 Unknown Rx Acetaminophen [Non-Aspirin Extra 500 mg PO Q6HR PRN #30 tablet 01/01/20 Unknown Rx Strength] Aspirin EC [Halfprin EC] 81 mg PO QDAY #30 01/01/20 Unknown Rx Destiny Root [Destiny] 250 mg PO QID PRN #30 capsule 01/01/20 Unknown Rx Metoclopramide [Reglan TAB] 10 mg PO QID PRN #15 tablet 01/01/20 Unknown Rx levETIRAcetam [Keppra TAB] 500 mg PO BID #60 tablet 01/01/20 Unknown Rx Allergies Allergy/AdvReac Type Severity Reaction Status Date / Time garlic Allergy Unknown Verified 07/18/19 15:09 ibuprofen [From Motrin] Allergy Unknown Verified 07/18/19 15:09 oxycodone [From Percocet] Allergy Itching Verified 07/18/19 15:09 peanut oil Allergy Unknown Verified 07/18/19 15:09 Penicillins Allergy Unknown Verified 07/18/19 15:09 Heart Score - HEART Score History: Slightly suspicious EKG: Normal Age: < 45 Risk factors: No known risk factors Troponin: < normal limit HEART Score: 0 ED Review of Systems ROS: Stated complaint: CHEST PAIN Other details as noted in HPI Constitutional: denies: chills, fever Eyes: denies: eye pain, eye discharge, vision change ENT: denies: ear pain, throat pain Respiratory: denies: cough, shortness of breath, wheezing Cardiovascular: chest pain. denies: palpitations Endocrine: no symptoms reported Gastrointestinal: denies: abdominal pain, nausea, diarrhea Genitourinary: denies: urgency, dysuria, discharge Musculoskeletal: denies: back pain, joint swelling, arthralgia Skin: denies: rash, lesions Neurological: denies: headache, weakness, paresthesias Psychiatric: denies: anxiety, depression Hematological/Lymphatic: denies: easy bleeding, easy bruising ED Past Medical Hx - Past Medical History Previous Medical History?: Yes Hx Hypertension: Yes Hx Heart Attack/AMI: (normal stress 10-31-16, normal perfusion scan May 2017) Hx Congestive Heart Failure: No Hx Diabetes: No Hx Deep Vein Thrombosis: Yes Hx Pulmonary Embolism: Yes Hx GERD: Yes Hx Sickle Cell Disease: No Hx Seizures: Yes Hx Psychiatric Treatment: Yes (anxiety) Hx Asthma: No Hx COPD: No Hx Tuberculosis: No Hx HIV: No Additional medical history: pericarditis, pt states hyperthyroidism, thyroid storm, PE x2, (R lung 05/2016, L lung 01/2017--on coumadin), R leg DVT 03/2017, Graves Disease, heart murmur, aortic dissection - Surgical History Past Surgical History?: Yes Hx Coronary Stent: Yes Hx Pacemaker: No Hx Internal Defibrillator: No Additional Surgical History: Left arm surgery 02/2017, Right knee, Rt leg. 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, Alaina Filter - Family History Family history: no significant - Social History Smoking Status: Never Smoker Substance Use Type: None - Medications Home Medications: Home Medications Medication Instructions Recorded Confirmed Last Taken Type ALPRAZolam [Xanax TAB] 0.5 mg PO BID #20 tablet 11/29/18 07/18/19 Unknown Rx Dicyclomine [Bentyl] 10 mg PO Q6HR PRN 07/18/19 07/18/19 Unknown History Gabapentin [Neurontin] 300 mg PO BID 07/18/19 07/18/19 Unknown History QUEtiapine [SEROquel] 100 mg PO BID 07/18/19 07/18/19 Unknown History propranoloL [Inderal] 20 mg PO TID 07/18/19 07/18/19 Unknown History levoFLOXacin [Levaquin] 750 mg PO QDAY #6 tablet 08/31/19 Unknown Rx Acetaminophen [Non-Aspirin Extra 500 mg PO Q6HR PRN #30 tablet 01/01/20 Unknown Rx Strength] Aspirin EC [Halfprin EC] 81 mg PO QDAY #30 01/01/20 Unknown Rx Destiny Root [Destiny] 250 mg PO QID PRN #30 capsule 01/01/20 Unknown Rx Metoclopramide [Reglan TAB] 10 mg PO QID PRN #15 tablet 01/01/20 Unknown Rx levETIRAcetam [Keppra TAB] 500 mg PO BID #60 tablet 01/01/20 Unknown Rx ED Physical Exam - General Limitations: No Limitations General appearance: alert, in no apparent distress - Head Head exam: Present: atraumatic, normocephalic - Eye Eye exam: Present: normal appearance - ENT ENT exam: Present: mucous membranes moist - Neck Neck exam: Present: normal inspection - Respiratory Respiratory exam: Present: normal lung sounds bilaterally, chest wall tenderness (Bilateral chest wall tenderness. Patient had a chest wall reproduces symptoms.). Absent: respiratory distress - Cardiovascular Cardiovascular Exam: Present: regular rate, normal rhythm. Absent: systolic murmur, diastolic murmur, rubs, gallop - GI/Abdominal GI/Abdominal exam: Present: soft, normal bowel sounds - Extremities Exam Extremities exam: Present: normal inspection - Back Exam Back exam: Present: normal inspection - Neurological Exam Neurological exam: Present: alert, oriented X3 - Psychiatric Psychiatric exam: Present: normal affect, normal mood - Skin Skin exam: Present: warm, dry, intact, normal color. Absent: rash ED Course Vital Signs 03/21/20 00:25 Temperature 98.9 F Pulse Rate 89 Respiratory 18 Rate Blood Pressure 149/80 O2 Sat by Pulse 98 Oximetry - Reevaluation(s) Reevaluation #1: Patient refused labs. Patient had the ultrasound done. Patient states she can go. Patient states she does not want any further testing. I discussed risk with patient. Patient voiced understanding risk. Patient signed AMA form. Patient left the hospital AGAINST MEDICAL ADVICE. Even though the patient is leaving hospitalist medical advice I will still give the patient a formal discharge. I discussed all results and clinical findings with patient. Patient given discharge instructions. Patient voiced understanding of discharge instructions. 03/21/20 02:36 LEI score - Lei Score Age > 65: (0) No Aspirin use within the Past 7 Days: (0) No 3 or more CAD Risk Factors: (0) No 2 or more Angina events in past 24 hrs: (1) Yes Known CAD with more than 50% Stenosis: (0) No Elevated Cardiac Markers: (0) No ST Deviation Greater than 0.5mm: (0) No LEI Score: 1 ED Medical Decision Making - EKG Data -: EKG Interpreted by Me EKG shows normal: sinus rhythm, axis, intervals, QRS complexes, ST-T waves Rate: normal - Radiology Data Radiology results: report reviewed, image reviewed interpreted by me: Chest x-ray: No pneumonia, no pneumothorax, no foreign body, no osseous findings, no acute findings CHEST 1 VIEW 12:42 AM INDICATION / CLINICAL INFORMATION: Chest pain. COMPARISON: 01/01/20. FINDINGS: SUPPORT DEVICES: None. HEART / MEDIASTINUM: The heart size and pulmonary vasculature are normal. A stent graft involving the descending thoracic aorta is unchanged. LUNGS / PLEURA: No significant pulmonary or pleural abnormality. No pneumothorax. ADDITIONAL FINDINGS: No significant additional findings. IMPRESSION: No acute findings. DUPLEX DOPPLER LOWER EXTREMITY VEINS, BILATERAL INDICATION / CLINICAL INFORMATION: Bilateral leg pain and swelling. TECHNIQUE: Duplex doppler imaging was performed through the veins of both lower extremities using venous compression and other maneuvers. COMPARISON: None available. FINDINGS: RIGHT COMMON FEMORAL VEIN: Negative. RIGHT FEMORAL VEIN: Negative. RIGHT POPLITEAL VEIN: Negative. RIGHT CALF VEINS: Negative. LEFT COMMON FEMORAL VEIN: Negative. LEFT FEMORAL VEIN: Negative. LEFT POPLITEAL VEIN: Negative. LEFT CALF VEINS: Negative. ADDITIONAL FINDINGS: There is no evidence of a popliteal cyst or other significant abnormality. IMPRESSION: No sonographic evidence for DVT in either lower extremity. - Medical Decision Making Patient is a 39-year-old female that presents emergency room with complaints of chest pain and leg pain. Patient is on warfarin but her last INR was subtherapeutic. Patient had a chest x-ray was negative for acute finding. On exam, the patient had chest wall tenderness and clinical findings with costochondritis. Patient refused labs and further evaluation after her Ultram. Patient ultrasound done and is pending. Patient decided to leave the hospital AGAINST MEDICAL ADVICE. I discussed the risk with patient. Patient signed AMA form. - Differential Diagnosis ACS, chest pain, costochondritis, DVT, subtherapeutic INR Critical care attestation.: If time is entered above; I have spent that time in minutes in the direct care of this critically ill patient, excluding procedure time. ED Disposition Clinical Impression: Costochondritis, acute, Subtherapeutic international normalized ratio (INR), Lower extremity pain, bilateral Chest pain Qualifiers: Chest pain type: unspecified Qualified Code(s): R07.9 - Chest pain, unspecified Disposition: - LEFT AGAINST MED ADVICE Is pt being admited?: No Does the pt Need Aspirin: No Condition: Undetermined Instructions: Costochondritis, [id number], Chest Pain (ED) Additional Instructions: Patient to follow-up with primary care in 2 to 3 days. Patient to follow-up with corncob pipes assembler and orthopedist in 2 to 3 days. Patient to rest. Patient to increase water. Patient to avoid strenuous exercise or heavy lifting until cleared by corncob pipes assembler, primary care and orthopedist.. Patient to return to the ER if condition worsens, changes or new symptoms arise. Referrals: SINDY HERNANDEZ MD [Primary Care Provider] - 2-3 Days Forms: AMA Form Time of Disposition: 02:40
--- NOTE | 2020-03-21 02:42 | Vascular Lab Report ---
DUPLEX DOPPLER LOWER EXTREMITY VEINS, BILATERAL INDICATION / CLINICAL INFORMATION: Bilateral leg pain and swelling. TECHNIQUE: Duplex doppler imaging was performed through the veins of both lower extremities using venous debbie lily and other maneuvers. COMPARISON: None available. FINDINGS: RIGHT COMMON FEMORAL VEIN: Negative. RIGHT FEMORAL VEIN: Negative. RIGHT POPLITEAL VEIN: Negative. RIGHT CALF VEINS: Negative. LEFT COMMON FEMORAL VEIN: Negative. LEFT FEMORAL VEIN: Negative. LEFT POPLITEAL VEIN: Negative. LEFT CALF VEINS: Negative. ADDITIONAL FINDINGS: There is no evidence of a popliteal cyst or other significant abnormality. IMPRESSION: No sonographic evidence for DVT in either lower extremity. Signer Name: Paco Cassidy MD Signed: 03/21/2020 2:38 AM Workstation Name: [id number]
== END 2020-03-21 02:40 | disposition left against medical advice (07) ==
LOC: ED 00:11
DX: M79.605 Pain in left leg (principal); M79.604 Pain in right leg; M94.0 Chondrocostal junction syndrome [Tietze]; R79.1 Abnormal coagulation profile; I10 Essential (primary) hypertension; K21.9 Gastro-esophageal reflux disease without esophagitis; G40.909 Epilepsy, unspecified, not intractable, without status epilepticus; F41.9 Anxiety disorder, unspecified; Z79.899 Other long term (current) drug therapy; Z98.890 Other specified postprocedural states; Z88.0 Allergy status to penicillin; Z88.8 Allergy status to other drugs, medicaments and biological substances
CPT/HCPCS: 71045; 93005; 93970

== ENCOUNTER 2020-04-05 23:52 | Emergency (ER) | payer SELFPAY ==
--- NOTE | 2020-04-06 00:16 | Event Note ---
ED Screening Note Date of service: 04/06/20 Time: 00:15 ED Screening Note: Pt complains of leg pain and swelling x2 weeks and chest pain x1 week History of DVT/PE, currently on Coumadin Denies any recent long travel, hormone use, cough/hemoptysis This initial assessment/diagnostic orders/clinical plan/treatment(s) is/are subject to change based on patients health status, clinical progression and re- assessment by fellow clinical providers in the ED. Further treatment and workup at subsequent clinical providers discretion. Patient/guardian urged not to elope from the ED as their condition may be serious if not clinically assessed and managed. Initial orders include: Labs Chest x-ray EKG
[2020-04-06] MEDS ORDERED: ONDANSETRON 4 MG/2 ML INJ IV ONE ×2 (00:47→04:05)
[2020-04-06] MEDS ORDERED: MORPHINE 2 MG/1 ML INJ IV ONE (00:47)
--- NOTE | 2020-04-06 00:58 | Emergency Department Report ---
ED Chest Pain HPI - General Chief Complaint: Chest Pain Stated Complaint: CHEST PAIN;LEG SWELLING Time Seen by Provider: 04/06/20 00:13 Source: patient Mode of arrival: Ambulatory Limitations: No Limitations - History of Present Illness Initial Comments: 39-year-old female with history of Graves' disease, bipolar disorder, schizophrenia, neuropathy, seizure disorder, aortic dissection s/p TEVAR, DVT, PE, presents to ED with complaint of chest pain and bilateral lower extremity swelling. Patient reports swelling to her lower legs x2 weeks. She reports left leg is larger than the right. She reports chest pain with movement over the last week. She states pain is substernal and feels sharp and heavy. States pain is nonradiating. Patient denies any shortness of breath, cough, fever. Patient is currently on Coumadin. Patient states her last DVT was last year and she had a follow-up ultrasound that showed resolution of the clot. MD Complaint: chest pain -: week(s) (1) Onset: during rest Pain Location: substernal Pain Radiation: none Severity: moderate Severity scale (0 -10): 8 Quality: heaviness, sharp Consistency: intermittent Improves With: remaining still Worsens With: palpation, movement re: nausea. denies: vomting, diaphoresis, dyspnea Other Symptoms: leg swelling. denies: cough, fever - Related Data Home Medications Medication Instructions Recorded Confirmed Last Taken Dicyclomine [Bentyl] 10 mg PO Q6HR PRN 07/18/19 07/18/19 Unknown Gabapentin [Neurontin] 300 mg PO BID 07/18/19 07/18/19 Unknown QUEtiapine [SEROquel] 100 mg PO BID 07/18/19 07/18/19 Unknown propranoloL [Inderal] 20 mg PO TID 07/18/19 07/18/19 Unknown Previous Rx's Medication Instructions Recorded Last Taken Type ALPRAZolam [Xanax TAB] 0.5 mg PO BID #20 tablet 11/29/18 Unknown Rx levoFLOXacin [Levaquin] 750 mg PO QDAY #6 tablet 08/31/19 Unknown Rx Acetaminophen [Non-Aspirin Extra 500 mg PO Q6HR PRN #30 tablet 01/01/20 Unknown Rx Strength] Aspirin EC [Halfprin EC] 81 mg PO QDAY #30 01/01/20 Unknown Rx Destiny Root [Destiny] 250 mg PO QID PRN #30 capsule 01/01/20 Unknown Rx Metoclopramide [Reglan TAB] 10 mg PO QID PRN #15 tablet 01/01/20 Unknown Rx levETIRAcetam [Keppra TAB] 500 mg PO BID #60 tablet 01/01/20 Unknown Rx Allergies Allergy/AdvReac Type Severity Reaction Status Date / Time garlic Allergy Unknown Verified 07/18/19 15:09 ibuprofen [From Motrin] Allergy Unknown Verified 07/18/19 15:09 oxycodone [From Percocet] Allergy Itching Verified 07/18/19 15:09 peanut oil Allergy Unknown Verified 07/18/19 15:09 Penicillins Allergy Unknown Verified 07/18/19 15:09 Heart Score - HEART Score History: Slightly suspicious EKG: Normal Age: < 45 Risk factors: 1-2 risk factors Troponin: < normal limit HEART Score: 1 ED Review of Systems ROS: Stated complaint: CHEST PAIN;LEG SWELLING Other details as noted in HPI Comment: All other systems reviewed and negative Constitutional: denies: chills, fever Respiratory: denies: cough, shortness of breath Cardiovascular: chest pain Musculoskeletal: as per HPI ED Past Medical Hx - Past Medical History Hx Hypertension: Yes Hx Heart Attack/AMI: (normal stress 10-31-16, normal perfusion scan May 2017) Hx Congestive Heart Failure: No Hx Diabetes: No Hx Deep Vein Thrombosis: Yes Hx Pulmonary Embolism: Yes Hx GERD: Yes Hx Sickle Cell Disease: No Hx Seizures: Yes Hx Psychiatric Treatment: Yes (anxiety) Hx Asthma: No Hx COPD: No Hx Tuberculosis: No Hx HIV: No Additional medical history: pericarditis, pt states hyperthyroidism, thyroid storm, PE x2, (R lung 05/2016, L lung 01/2017--on coumadin), R leg DVT 03/2017, Graves Disease, heart murmur, aortic dissection - Surgical History Hx Coronary Stent: Yes Hx Pacemaker: No Hx Internal Defibrillator: No Additional Surgical History: Left arm surgery 02/2017, Right knee, Rt leg. 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, [place]aina Filter - Social History Smoking Status: Current Every Day Smoker Substance Use Type: None - Medications Home Medications: Home Medications Medication Instructions Recorded Confirmed Last Taken Type ALPRAZolam [Xanax TAB] 0.5 mg PO BID #20 tablet 11/29/18 07/18/19 Unknown Rx Dicyclomine [Bentyl] 10 mg PO Q6HR PRN 07/18/19 07/18/19 Unknown History Gabapentin [Neurontin] 300 mg PO BID 07/18/19 07/18/19 Unknown History QUEtiapine [SEROquel] 100 mg PO BID 07/18/19 07/18/19 Unknown History propranoloL [Inderal] 20 mg PO TID 07/18/19 07/18/19 Unknown History levoFLOXacin [Levaquin] 750 mg PO QDAY #6 tablet 08/31/19 Unknown Rx Acetaminophen [Non-Aspirin Extra 500 mg PO Q6HR PRN #30 tablet 01/01/20 Unknown Rx Strength] Aspirin EC [Halfprin EC] 81 mg PO QDAY #30 01/01/20 Unknown Rx Destiny Root [Destiny] 250 mg PO QID PRN #30 capsule 01/01/20 Unknown Rx Metoclopramide [Reglan TAB] 10 mg PO QID PRN #15 tablet 01/01/20 Unknown Rx levETIRAcetam [Keppra TAB] 500 mg PO BID #60 tablet 01/01/20 Unknown Rx ED Physical Exam - General Limitations: No Limitations General appearance: alert, in no apparent distress - Head Head exam: Present: atraumatic, normocephalic - Eye Eye exam: Present: normal appearance, EOMI - ENT ENT exam: Present: mucous membranes moist - Neck Neck exam: Present: normal inspection - Respiratory Respiratory exam: Present: normal lung sounds bilaterally, chest wall tenderness. Absent: respiratory distress - Cardiovascular Cardiovascular Exam: Present: regular rate, normal rhythm - GI/Abdominal GI/Abdominal exam: Present: soft. Absent: distended, tenderness - Extremities Exam Extremities exam: Present: calf tenderness, other (2+ pitting edema to bilateral lower leg; left leg is larger than the right) - Neurological Exam Neurological exam: Present: alert, oriented X3 - Psychiatric Psychiatric exam: Present: normal affect, normal mood - Skin Skin exam: Present: warm, dry, intact, normal color ED Course Vital Signs 04/06/20 04/06/20 04/06/20 00:07 00:49 03:28 Temperature 98.1 F Pulse Rate 118 H 96 H 85 Respiratory 14 16 12 Rate Blood Pressure 116/70 Blood Pressure 121/60 129/59 [Left] O2 Sat by Pulse 100 100 100 Oximetry GENOVEVA score - Genoveva Score Age > 65: (0) No Aspirin use within the Past 7 Days: (0) No 3 or more CAD Risk Factors: (0) No 2 or more Angina events in past 24 hrs: (1) Yes Known CAD with more than 50% Stenosis: (0) No Elevated Cardiac Markers: (0) No ST Deviation Greater than 0.5mm: (0) No GENOVEVA Score: 1 ED Medical Decision Making - Lab Data Result diagrams: 04/06/20 00:21 04/06/20 00:21 - EKG Data -: EKG Interpreted by Me EKG shows normal: sinus rhythm, axis, intervals, QRS complexes, ST-T waves Rate: normal - EKG Data Interpretation: no acute changes - Radiology Data Radiology results: report reviewed, image reviewed - Medical Decision Making 39-year-old female presents to ED with bilateral lower extremity swelling and chest pain. D-dimer is elevated. Ultrasound is negative for DVT. CTA chest is negative for PE. INR is subtherapeutic despite patient stating that she is compliant with her Coumadin. Planned to give Lovenox, however patient refused, stating that she has an allergy to Lovenox. Patient states she will double up on her Coumadin. States she does follow-up in the Coumadin clinic to have her INR checked. Vital signs are stable. Will discharge at this time. Outpatient follow-up advised, return precautions given. - Differential Diagnosis DVT, PE, chest wall pain Critical care attestation.: If time is entered above; I have spent that time in minutes in the direct care of this critically ill patient, excluding procedure time. ED Disposition Clinical Impression: Chest pain, Swelling of lower leg Disposition: DC-01 TO HOME OR SELFCARE Is pt being admited?: No Condition: Stable Instructions: Nonspecific Chest Pain, Adult, Peripheral Edema, Chest Pain (ED) Referrals: PRIMARY CARE, [Primary Care Provider] - 3-5 Days Time of Disposition: 04:08
[2020-04-06 01:04] LABS: Basophils # (Auto) 0.1 K/mm3 (0.0-0.1); Basophils % (Auto) 0.8 % (0.0-1.8); Eosinophils # (Auto) 0.4 K/mm3 (0.0-0.4); Eosinophils % (Auto) 4.8 % (0.0-4.3); Hematocrit 38.2 % (30.3-42.9); Hemoglobin 12.3 gm/dl (10.1-14.3); Lymphocytes # (Auto) 1.6 K/mm3 (1.2-5.4); Lymphocytes % (Auto) 22.1 % (13.4-35.0); Mean Corpuscular HGB Conc 32 % (30-34); Mean Corpuscular Volume 85 fl (79-97); Monocytes # (Auto) 0.8 K/mm3 (0.0-0.8); Monocytes % (Auto) 10.2 % (0.0-7.3); Platelet Count 336 K/mm3 (140-440); Red Blood Count 4.51 M/mm3 (3.65-5.03); Red Cell Distribution Width 18.1 % (13.2-15.2)
[2020-04-06 01:17] LABS: INR 1.03 (0.87-1.13); Partial Thromboplastin Time 24.1 Sec. (24.2-36.6)
[2020-04-06 01:22] LABS: Alanine Aminotransferase 16 units/L (7-56); Albumin 4.6 g/dL (3.9-5); BUN/Creatinine Ratio 14; Blood Urea Nitrogen 13 mg/dL (7-17); Hemolysis Index 0
[2020-04-06] MEDS ORDERED: ONDANSETRON 4 MG/2 ML INJ ONE (02:57)
[2020-04-06] MEDS ORDERED: MORPHINE 2 MG/1 ML INJ ONE (02:58)
--- NOTE | 2020-04-06 03:08 | XRay Report ---
CHEST 2 VIEWS INDICATION / CLINICAL INFORMATION: chest pain. COMPARISON: 03/21/2020 FINDINGS: SUPPORT DEVICES: None. HEART / MEDIASTINUM: No significant abnormality. Descending thoracic aortic stent, unchanged LUNGS / PLEURA: No significant pulmonary or pleural abnormality. No pneumothorax. ADDITIONAL FINDINGS: No significant additional findings. IMPRESSION: 1. No acute findings. Signer Name: Chris Dowd MD Signed: 04/06/2020 3:04 AM Workstation Name: [id number]
--- NOTE | 2020-04-06 03:15 | Vascular Lab Report ---
DUPLEX DOPPLER LOWER EXTREMITY VEINS, BILATERAL INDICATION / CLINICAL INFORMATION: pain, swelling; hx DVT. TECHNIQUE: Duplex doppler imaging was performed through the veins of both lower extremities using venous debbie lily and other maneuvers. COMPARISON: None available. FINDINGS: RIGHT COMMON FEMORAL VEIN: Negative. RIGHT FEMORAL VEIN: Negative. RIGHT POPLITEAL VEIN: Negative. RIGHT CALF VEINS: Negative. LEFT COMMON FEMORAL VEIN: Negative. LEFT FEMORAL VEIN: Negative. LEFT POPLITEAL VEIN: Negative. LEFT CALF VEINS: Negative. ADDITIONAL FINDINGS: None. IMPRESSION: 1. No sonographic evidence for DVT in either lower extremity. Signer Name: Chris Dowd MD Signed: 04/06/2020 3:10 AM Workstation Name: [id number]
[2020-04-06 03:29] VITALS: BP 129/59
--- NOTE | 2020-04-06 03:59 | Cat Scan Report ---
. CTA CHEST WITH IV CONTRAST INDICATION: chest pain; hx DVT, PE. TECHNIQUE: Axial CT images were obtained through the chest after injection of 100 cc IV contrast. 3 plane MIP re constructions were produced. All CT scans at this location are performed using CT dose reduction for ALARA by means of automated exposure control. COMPARISON: CT chest 08/31/2019 FINDINGS: PULMONARY ARTERIES: No pulmonary emboli. THORACIC AORTA: Descending thoracic aorta stent. HEART: Normal. CORONARY ARTERIES: No significant calcification. PLEURA: No pleural effusion. No pneumothorax. LYMPH NODES: No significant adenopathy. LUNGS: No acute air space or interstitial disease. Right middle lobe streaky residual scarring from p revious pneumonia ADDITIONAL FINDINGS: None. UPPER ABDOMEN: No acute findings. SKELETAL STRUCTURES: No significant osseous abnormality. IMPRESSION: 1. No CT evidence for pulmonary embolism. 2. No acute findings. Signer Name: Chris Dowd MD Signed: 04/06/2020 3:54 AM Workstation Name: [id number]
[2020-04-06] MEDS ORDERED: traMADol 50 MG TAB PO ONE (04:06)
== END 2020-04-06 04:24 | disposition home or self-care (01) ==
LOC: ED 23:52
DX: M79.89 Other specified soft tissue disorders (principal); R07.9 Chest pain, unspecified; I10 Essential (primary) hypertension; K21.9 Gastro-esophageal reflux disease without esophagitis; F41.9 Anxiety disorder, unspecified; E03.9 Hypothyroidism, unspecified; F17.200 Nicotine dependence, unspecified, uncomplicated; Z98.890 Other specified postprocedural states; Z79.899 Other long term (current) drug therapy; Z88.0 Allergy status to penicillin; Z88.8 Allergy status to other drugs, medicaments and biological substances; Z91.018 Allergy to other foods
CPT/HCPCS: 36415; 71046; 71275; 80053; 84484; 84703; 85025; 85379; 85610; 85730; 93005; 93970; 96374; 96375; 96376; 99284; J2270; J2405; Q9967

== ENCOUNTER 2020-05-21 00:08 | Emergency (ER) | payer SELFPAY ==
--- NOTE | 2020-05-21 01:29 | XRay Report ---
CHEST PA AND LATERAL VIEWS INDICATION: chest pain. COMPARISON: 04/18/2020 FINDINGS: Support devices: Unchanged. Heart: Normal and unchanged. Descending thoracic aortic endovascular stent, unchanged. Lungs/Pleura: Minimal linear atelectasis in the right midlung. No active disease. IMPRESSION: 1. No acute disease and no interval change. Signer Name: Erick Carrillo MD Signed: 05/21/2020 1:25 AM Workstation Name: [id number]
[2020-05-21] MEDS ORDERED: MORPHINE 4 MG/1 ML INJ IV ONE (02:26)
[2020-05-21] MEDS ORDERED: METOCLOPRAMIDE 10 MG/2 ML INJ IV ONE (02:26)
--- NOTE | 2020-05-21 03:12 | Emergency Department Report ---
<GERBER DONOVAN - Last Filed: 05/21/20 10:25> ED Chest Pain HPI - General Chief Complaint: Chest Pain Stated Complaint: CHEST PAIN/BILATERAL LEG SWELLING Time Seen by Provider: 05/21/20 02:09 - Related Data Previous Rx's Medication Instructions Recorded Last Taken Type Aspirin EC [Halfprin EC] 81 mg PO QDAY #30 01/01/20 Unknown Rx ALPRAZolam [Xanax TAB] 0.5 mg PO BID #20 tablet 04/22/20 Unknown Rx Gabapentin 300 mg PO BID #60 cap 04/22/20 Unknown Rx Oxycodone HCl/Acetaminophen 1 each PO TID #21 tablet 04/22/20 Unknown Rx [Percocet 7.5/325 mg] QUEtiapine [SEROquel] 100 mg PO BID 30 Days #60 tablet 04/22/20 Unknown Rx Warfarin [Coumadin] 7.5 mg PO DAILY@1700 #30 tablet 04/22/20 Unknown Rx propranoloL [Inderal] 20 mg PO TID 30 Days #90 tablet 04/22/20 Unknown Rx Allergies Allergy/AdvReac Type Severity Reaction Status Date / Time garlic Allergy Unknown Verified 07/18/19 15:09 ibuprofen [From Motrin] Allergy Unknown Verified 07/18/19 15:09 oxycodone [From Percocet] Allergy Itching Verified 07/18/19 15:09 peanut oil Allergy Unknown Verified 07/18/19 15:09 Penicillins Allergy Unknown Verified 07/18/19 15:09 Heart Score - HEART Score History: Slightly suspicious EKG: Normal Age: < 45 Risk factors: 1-2 risk factors Troponin: < normal limit HEART Score: 1 - EKG Read Time Time EKG Completed: 00:39 EKG Read Time: 00:41 ED Past Medical Hx - Medications Home Medications: Home Medications Medication Instructions Recorded Confirmed Last Taken Type Aspirin EC [Halfprin EC] 81 mg PO QDAY #30 01/01/20 Unknown Rx ALPRAZolam [Xanax TAB] 0.5 mg PO BID #20 tablet 04/22/20 Unknown Rx Gabapentin 300 mg PO BID #60 cap 04/22/20 Unknown Rx Oxycodone HCl/Acetaminophen 1 each PO TID #21 tablet 04/22/20 Unknown Rx [Percocet 7.5/325 mg] QUEtiapine [SEROquel] 100 mg PO BID 30 Days #60 tablet 04/22/20 Unknown Rx Warfarin [Coumadin] 7.5 mg PO DAILY@1700 #30 tablet 04/22/20 Unknown Rx propranoloL [Inderal] 20 mg PO TID 30 Days #90 tablet 04/22/20 Unknown Rx ED Course - Reevaluation(s) Reevaluation #1: 05/21/20 08:[address] [address] Nuclear Medicine Report Signed Patient: FELIZ HERRING MR#: [id number] : 1980 A cct:[id number] Age/Sex: 39 / F ADM Date: 05/21/20 Loc: ED Attending Dr: Ordering Physician: GERBER DONOVAN MD Date of Service: 05/21/20 Procedure(s): NM perfusion only lung scan Accession Number(s): [id number] cc: GERBER DONOVAN MD NUCLEAR MEDICINE PERFUSION LUNG SCAN INDICATION / CLINICAL INFORMATION: chest pain hx clotting disorder. TECHNIQUE: 5.1 mCi of Tc-99m MAA were given by IV. COMPARISON: Chest radiograph dated same day. FINDINGS: PERFUSION: No segmental perfusion defects. ADDITIONAL FINDINGS: None. IMPRESSION: 1. Low probability for pulmonary embolism. Signer Name: Sathish Meza MD Signed: 05/21/2020 8:47 AM Workstation Name: [id number] Transcribed By: Dictated By: Sathish Meza MD Electronically Authenticated By: Sathish Meza MD Signed Date/Time: 05/21/20 0847 Reevaluation #2: 05/21/20 10:[address] [address] Vascular Lab Report Signed Patient: FELIZ HERRING MR#: [id number] : 1980 Acct:[id number] Age/Sex: 39 / F ADM Date: 05/21/20 Loc: ED Attending Dr: Ordering Physician: GERBER DONOVAN MD Date of Service: 05/21/20 Procedure(s): VL venous duplex LE BILAT Accession Number(s): [id number] cc: GERBER DONOVAN MD DUPLEX DOPPLER LOWER EXTREMITY VEINS, BILATERAL INDICATION / CLINICAL INFORMATION: leg pain assess for acute DVT. TECHNIQUE: Duplex doppler imaging was performed through the veins of both lower extremities using venous compression and other maneuvers. COMPARISON: None available. FINDINGS: RIGHT COMMON FEMORAL VEIN: Negative. RIGHT FEMORAL VEIN: Negative. RIGHT POPLITEAL VEIN: Negative. RIGHT CALF VEINS: Negative. LEFT COMMON FEMORAL VEIN: Negative. LEFT FEMORAL VEIN: Negative. LEFT POPLITEAL VEIN: Chronic nonocclusive thrombus. No acute thrombus. LEFT CALF VEINS: Negative. ADDITIONAL FINDINGS: None. IMPRESSION: 1. No sonographic evidence for acute DVT in either lower extremity. 2. Chronic nonocclusive thrombus left popliteal vein Signer Name: Chris Dwod MD Signed: 05/21/2020 9:55 AM Workstation Name: [id number] Transcribed By: TL Dictated By: Chris Dowd MD Electronically Authenticated By: Chrsi Dowd MD Signed Date/Time: 05/21/20 0955 ED Medical Decision Making - Lab Data Result diagrams: 05/21/20 04:15 05/21/20 04:15 Lab Results 05/21/20 05/21/20 05/21/20 Range/Units 04:15 04:15 04:15 WBC 6.6 (4.5-11.0) K/mm3 RBC 3.90 (3.65-5.03) M/mm3 Hgb 9.6 L (10.1-14.3) gm/dl Hct 29.9 L (30.3-42.9) % MCV 77 L (79-97) fl MCH 25 L (28-32) pg MCHC 32 (30-34) % RDW 20.5 H (13.2-15.2) % Plt Count 364 (140-440) K/mm3 Lymph % (Auto) 18.8 (13.4-35.0) % [place] % (Auto) 6.1 (0.0-7.3) % Eos % (Auto) 3.3 (0.0-4.3) % Baso % (Auto) 1.1 (0.0-1.8) % Lymph # (Auto) 1.2 (1.2-5.4) K/mm3 [place] # (Auto) 0.4 (0.0-0.8) K/mm3 Eos # (Auto) 0.2 (0.0-0.4) K/mm3 Baso # (Auto) 0.1 (0.0-0.1) K/mm3 Seg Neutrophils % 70.7 H (40.0-70.0) % Seg Neutrophils # 4.6 (1.8-7.7) K/mm3 PT (12.2-14.9) Sec. INR (0.87-1.13) APTT (24.2-36.6) Sec. Sodium 135 L (137-145) mmol/L Potassium 4.6 (3.6-5.0) mmol/L Chloride 100.5 (98-107) mmol/L Carbon Dioxide 24 (22-30) mmol/L Anion Gap 15 mmol/L BUN 17 (7-17) mg/dL Creatinine 0.8 (0.6-1.2) mg/dL Estimated GFR > 60 ml/min BUN/Creatinine Ratio 21 % Glucose 84 (65-100) mg/dL Calcium 8.8 (8.4-10.2) mg/dL Total Bilirubin < 0.20 (0.1-1.2) mg/dL AST 15 (5-40) units/L ALT 20 (7-56) units/L Alkaline Phosphatase 89 (35-129) units/L Troponin T < 0.010 (0.00-0.029) ng/mL NT-Pro-B Natriuret Pep (0-450) pg/mL Total Protein 7.0 (6.3-8.2) g/dL Albumin 3.9 (3.9-5) g/dL Albumin/Globulin Ratio 1.3 % TSH (0.270-4.200) mlU/mL 05/21/20 05/21/20 05/21/20 Range/Units 04:15 04:15 04:15 WBC (4.5-11.0) K/mm3 RBC (3.65-5.03) M/mm3 Hgb (10.1-14.3) gm/dl Hct (30.3-42.9) % MCV (79-97) fl MCH (28-32) pg MCHC (30-34) % RDW (13.2-15.2) % Plt Count (140-440) K/mm3 Lymph % (Auto) (13.4-35.0) % [place] % (Auto) (0.0-7.3) % Eos % (Auto) (0.0-4.3) % Baso % (Auto) (0.0-1.8) % Lymph # (Auto) (1.2-5.4) K/mm3 [place] # (Auto) (0.0-0.8) K/mm3 Eos # (Auto) (0.0-0.4) K/mm3 Baso # (Auto) (0.0-0.1) K/mm3 Seg Neutrophils % (40.0-70.0) % Seg Neutrophils # (1.8-7.7) K/mm3 PT 14.2 (12.2-14.9) Sec. INR 1.11 (0.87-1.13) APTT 27.7 (24.2-36.6) Sec. Sodium (137-145) mmol/L Potassium (3.6-5.0) mmol/L Chloride (98-107) mmol/L Carbon Dioxide (22-30) mmol/L Anion Gap mmol/L BUN (7-17) mg/dL Creatinine (0.6-1.2) mg/dL Estimated GFR ml/min BUN/Creatinine Ratio % Glucose (65-100) mg/dL Calcium (8.4-10.2) mg/dL Total Bilirubin (0.1-1.2) mg/dL AST (5-40) units/L ALT (7-56) units/L Alkaline Phosphatase (35-129) units/L Troponin T (0.00-0.029) ng/mL NT-Pro-B Natriuret Pep 51.91 (0-450) pg/mL Total Protein (6.3-8.2) g/dL Albumin (3.9-5) g/dL Albumin/Globulin Ratio % TSH 0.063 L (0.270-4.200) mlU/mL - Medical Decision Making Patient with atypical pain. Because of her medical history a VQ scan and ultrasound of her legs was obtained. Both were negative for any acute process. Patient be discharged home. INR was slightly low she was to be given 10mg of Coumadin and she can continue with her 7.5 going forward. ED Disposition Clinical Impression: Chest pain, atypical Chronic pain Qualifiers: Chronic pain type: other chronic pain Qualified Code(s): G89.29 - Other chronic pain Disposition: DC-01 TO HOME OR SELFCARE Is pt being admited?: No Does the pt Need Aspirin: No Condition: Stable Instructions: Nonspecific Chest Pain, Adult Referrals: PRIMARY CARE,MD [Primary Care Provider] - 3-5 Days Time of Disposition: 10:28 <JOSE MARTIN LARA - Last Filed: 05/24/20 20:56> ED Chest Pain HPI - General Source: patient Mode of arrival: Ambulatory Limitations: No Limitations - History of Present Illness Initial Comments: This is a 39-year-old female who presents to the emergency department with a complaint of some midsternal chest discomfort, intermittent shortness of breath, and bilateral lower extremity swelling. This has been going on for the past few days. She has a past medical history of previous DVT and PE and is currently anticoagulated on Coumadin. She also has a past medical history of hypertension, seizures, hyperthyroidism. Patient says that she has a history of coronary artery disease with "multiple stents", a previous thoracic aortic dissection. Patient says that she was recently here for an evaluation of chest pain and lower extremity swelling and was told that she had new blood clots. The patient was seen here at the end of March, about 1 month ago, and had a bilateral lower extremity venous Doppler ultrasound that showed a chronic popliteal DVT but no acute DVT. The patient also had a stress test at that time that did not show any signs of ischemia. Patient says that she has primary care physicians and donor services technician that she follows with outpatient at some clinic. Patient also has a history of bipolar disorder and does display some tangential thoughts. She is oriented to person, place, time. Heart Score - HEART Score History: Slightly suspicious EKG: Normal Age: < 45 Risk factors: 1-2 risk factors Troponin: < normal limit HEART Score: 1 ED Review of Systems ROS: Stated complaint: CHEST PAIN/BILATERAL LEG SWELLING Other details as noted in HPI Comment: All other systems reviewed and negative Constitutional: denies: chills, fever Eyes: denies: eye pain, vision change ENT: denies: ear pain, throat pain Respiratory: shortness of breath (intermittent). denies: cough Cardiovascular: chest pain, edema. denies: palpitations Gastrointestinal: denies: abdominal pain, vomiting Genitourinary: denies: dysuria, discharge Musculoskeletal: denies: back pain, arthralgia Skin: denies: rash Neurological: denies: headache, weakness ED Past Medical Hx - Past Medical History Previous Medical History?: Yes Hx Hypertension: Yes Hx Heart Attack/AMI: (normal stress 10-31-16, normal perfusion scan May 2017) Hx Congestive Heart Failure: No Hx Diabetes: No Hx Deep Vein Thrombosis: Yes Hx Pulmonary Embolism: Yes Hx GERD: Yes Hx Sickle Cell Disease: No Hx Seizures: Yes Hx Psychiatric Treatment: Yes (anxiety) Hx Asthma: No Hx COPD: No Hx Tuberculosis: No Hx HIV: No Additional medical history: pericarditis, pt states hyperthyroidism, thyroid storm, PE x2, (R lung 05/2016, L lung 01/2017--on coumadin), R leg DVT 03/2017, Graves Disease, heart murmur, aortic dissection - Surgical History Past Surgical History?: Yes Hx Coronary Stent: Yes ("multiple stents") Hx Pacemaker: No Hx Internal Defibrillator: No Additional Surgical History: Left arm surgery 02/2017, Right knee, Rt leg. 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 HENT: Normocephalic. Atraumatic. Patient has moist mucous membranes. EYES: Extraocular motions are intact. Pupils equal reactive to light bilaterally. NECK: Supple. Trachea is midline. CHEST/LUNGS: Clear to auscultation. There is no respiratory distress noted. HEART/CARDIOVASCULAR: Regular. There is mild tachycardia. There is no murmur. ABDOMEN: Abdomen is soft, nontender. Patient has normal bowel sounds. There is no abdominal distention. SKIN: Skin is warm and dry. Mild nonpitting swelling to the bilateral lower extremities. NEURO: The patient is awake, alert, and oriented. The patient is cooperative. The patient has no focal neurologic deficits. Normal speech. MUSCULOSKELETAL: There is some tenderness to palpation to the bilateral lower extremities. There is no limitation range of motion. ED Course Vital Signs 05/21/20 05/21/20 05/21/20 00:33 02:15 02:31 Temperature 98.0 F Pulse Rate 114 H 92 H 97 H Respiratory 12 18 16 Rate Blood Pressure 145/77 116/68 118/88 O2 Sat by Pulse 99 99 93 Oximetry 05/21/20 05/21/20 05/21/20 02:45 03:01 03:22 Temperature Pulse Rate 89 90 93 H Respiratory 18 17 20 Rate Blood Pressure 111/92 119/75 O2 Sat by Pulse 100 99 99 Oximetry 05/21/20 05/21/20 05/21/20 03:31 04:28 04:31 Temperature Pulse Rate 92 H 108 H Respiratory 21 18 22 Rate Blood Pressure 119/75 147/73 O2 Sat by Pulse 100 99 Oximetry 05/21/20 05/21/20 05/21/20 04:58 05:00 05:16 Temperature Pulse Rate 108 H 102 H Respiratory 18 17 17 Rate Blood Pressure 123/68 120/67 O2 Sat by Pulse 99 100 Oximetry 05/21/20 05/21/20 05/21/20 05:30 05:46 06:00 Temperature Pulse Rate 97 H 94 H 94 H Respiratory 20 16 16 Rate Blood Pressure 136/72 136/72 114/64 O2 Sat by Pulse 96 97 99 Oximetry 05/21/20 05/21/20 05/21/20 06:16 06:30 07:00 Temperature Pulse Rate 91 H 96 H 99 H Respiratory 15 16 21 Rate Blood Pressure 114/64 117/66 123/71 O2 Sat by Pulse 98 98 99 Oximetry 05/21/20 05/21/20 07:30 08:06 Temperature Pulse Rate 101 H Respiratory 16 Rate Blood Pressure 123/71 123/71 O2 Sat by Pulse 100 100 Oximetry LEI score - Lei Score Age > 65: (0) No Aspirin use within the Past 7 Days: (0) No 3 or more CAD Risk Factors: (0) No 2 or more Angina events in past 24 hrs: (1) Yes Known CAD with more than 50% Stenosis: (0) No Elevated Cardiac Markers: (0) No ST Deviation Greater than 0.5mm: (0) No LEI Score: 1 ED Medical Decision Making - Lab Data Result diagrams: 05/21/20 04:15 05/21/20 04:15 - EKG Data -: EKG Interpreted by Me EKG shows normal: sinus rhythm, axis, intervals, QRS complexes, ST-T waves Rate: tachycardia (108 bpm) - EKG Data When compared to previous EKG there are: no significant change Interpretation: unchanged when compared t (04/20/20) - Radiology Data Radiology results: report reviewed, image reviewed interpreted by me: Chest x-ray does not show any acute process. There are no pleural effusions, obvious pneumonia and there is no pneumothorax. No significant cardiomegaly. DUPLEX DOPPLER LOWER EXTREMITY VEINS, BILATERAL INDICATION / CLINICAL INFORMATION: leg pain assess for acute DVT. TECHNIQUE: Duplex doppler imaging was performed through the veins of both lower extremities using venous compression and other maneuvers. COMPARISON: None available. FINDINGS: RIGHT COMMON FEMORAL VEIN: Negative. RIGHT FEMORAL VEIN: Negative. RIGHT POPLITEAL VEIN: Negative. RIGHT CALF VEINS: Negative. LEFT COMMON FEMORAL VEIN: Negative. LEFT FEMORAL VEIN: Negative. LEFT POPLITEAL VEIN: Chronic nonocclusive thrombus. No acute thrombus. LEFT CALF VEINS: Negative. ADDITIONAL FINDINGS: None. IMPRESSION: 1. No sonographic evidence for acute DVT in either lower extremity. 2. Chronic nonocclusive thrombus left popliteal vein NUCLEAR MEDICINE PERFUSION LUNG SCAN INDICATION / CLINICAL INFORMATION: chest pain hx clotting disorder. TECHNIQUE: 5.1 mCi of Tc-99m MAA were given by IV. COMPARISON: Chest radiograph dated same day. FINDINGS: PERFUSION: No segmental perfusion defects. ADDITIONAL FINDINGS: None. IMPRESSION: 1. Low probability for pulmonary embolism. - Medical Decision Making This patient presented to the emergency department with multiple complaints including chest pain that is consistent with previous visits, swelling of the legs and leg pain. EKG did not have any morphology consistent with ST elevation myocardial infarction or any dysrhythmia. Most of the patient's labs were unremarkable including CBC, metabolic panel, negative troponin. The patient is subtherapeutic on her Coumadin. She has a low TSH level and a history of hypothyroidism but the TSH level is not far off the normal range. Chest x-ray did not show any pneumonia, pleural effusions, pneumothorax, or any other acute process. The patient was reevaluated multiple times over multiple hours and was stable throughout her ED course with me. The patient was signed out to my colleague, Dr. Gerber Donovan, to assist with further disposition. Secondary to her history of previous DVT and PE, as well as a subtherapeutic INR, patient had a VQ scan and a bilateral Doppler ultrasound of the legs, both of which were negative. Patient has been instructed to follow-up with her primary care physician and donor services technician. Critical Care Time: No Critical care attestation.: If time is entered above; I have spent that time in minutes in the direct care of this critically ill patient, excluding procedure time. ED Disposition Is pt being admited?: No
[2020-05-21 05:36] LABS: Alanine Aminotransferase 20 units/L (7-56); Albumin 3.9 g/dL (3.9-5); BUN/Creatinine Ratio 21; Blood Urea Nitrogen 17 mg/dL (7-17); Calcium 8.8 mg/dL (8.4-10.2); Hemolysis Index 0
[2020-05-21 06:35] LABS: Basophils # (Auto) 0.1 K/mm3 (0.0-0.1); Basophils % (Auto) 1.1 % (0.0-1.8); Eosinophils # (Auto) 0.2 K/mm3 (0.0-0.4); Eosinophils % (Auto) 3.3 % (0.0-4.3); Hematocrit 29.9 % (30.3-42.9); Hemoglobin 9.6 gm/dl (10.1-14.3); Lymphocytes # (Auto) 1.2 K/mm3 (1.2-5.4); Lymphocytes % (Auto) 18.8 % (13.4-35.0); Mean Corpuscular HGB Conc 32 % (30-34); Mean Corpuscular Volume 77 fl (79-97); Monocytes # (Auto) 0.4 K/mm3 (0.0-0.8); Monocytes % (Auto) 6.1 % (0.0-7.3); Platelet Count 364 K/mm3 (140-440)
[2020-05-21 06:37] LABS: Red Cell Distribution Width 20.5 % (13.2-15.2)
[2020-05-21 06:48] LABS: INR 1.11 (0.87-1.13); Partial Thromboplastin Time 27.7 Sec. (24.2-36.6)
[2020-05-21 08:11] VITALS: BP 123/71
--- NOTE | 2020-05-21 08:52 | Nuclear Medicine Report ---
NUCLEAR MEDICINE PERFUSION LUNG SCAN INDICATION / CLINICAL INFORMATION: chest pain hx clotting disorder. TECHNIQUE: 5.1 mCi of Tc-99m MAA were given by IV. COMPARISON: Chest radiograph dated same day. FINDINGS: PERFUSION: No segmental perfusion defects. ADDITIONAL FINDINGS: None. IMPRESSION: 1. Low probability for pulmonary embolism. Signer Name: Sathish Meza MD Signed: 05/21/2020 8:47 AM Workstation Name: [id number]
--- NOTE | 2020-05-21 09:59 | Vascular Lab Report ---
DUPLEX DOPPLER LOWER EXTREMITY VEINS, BILATERAL INDICATION / CLINICAL INFORMATION: leg pain assess for acute DVT. TECHNIQUE: Duplex doppler imaging was performed through the veins of both lower extremities using venous debbie lily and other maneuvers. COMPARISON: None available. FINDINGS: RIGHT COMMON FEMORAL VEIN: Negative. RIGHT FEMORAL VEIN: Negative. RIGHT POPLITEAL VEIN: Negative. RIGHT CALF VEINS: Negative. LEFT COMMON FEMORAL VEIN: Negative. LEFT FEMORAL VEIN: Negative. LEFT POPLITEAL VEIN: Chronic nonocclusive thrombus. No acute thrombus. LEFT CALF VEINS: Negative. ADDITIONAL FINDINGS: None. IMPRESSION: 1. No sonographic evidence for acute DVT in either lower extremity. 2. Chronic nonocclusive thrombus left popliteal vein Signer Name: Chris Dowd MD Signed: 05/21/2020 9:55 AM Workstation Name: [id number]
[2020-05-21] MEDS ORDERED: WARFARIN 10 MG TAB PO ONE (10:22)
[2020-05-21] MEDS ORDERED: oxyCODONE /ACETAMINOPHEN 5-325MG TAB PO ONE (10:22)
== END 2020-05-21 11:30 | disposition home or self-care (01) ==
LOC: ED 00:08
DX: R07.89 Other chest pain (principal); I10 Essential (primary) hypertension; E11.9 Type 2 diabetes mellitus without complications; J45.909 Unspecified asthma, uncomplicated; F41.9 Anxiety disorder, unspecified; Z90.49 Acquired absence of other specified parts of digestive tract; Z79.899 Other long term (current) drug therapy; Z79.82 Long term (current) use of aspirin; Z88.0 Allergy status to penicillin; Z88.8 Allergy status to other drugs, medicaments and biological substances; Z91.010 Allergy to peanuts; Z91.018 Allergy to other foods
CPT/HCPCS: 36415; 71046; 78580; 80053; 83880; 84443; 84484; 85025; 85610; 85730; 93970; 96374; 96375; 99284; A9540; J2270; J2765

== ENCOUNTER 2020-06-04 16:18 | Emergency (ER) | payer SELFPAY ==
[2020-06-04 16:31] VITALS: BP 137/72
--- NOTE | 2020-06-04 17:49 | Event Note ---
ED Screening Note ED Screening Note: pt presents with CP and leg swelling she has been evaluated in this ED on multiple occasions for this same complaint she was recently admitted in mar 2020 with a normal stress test, she had a US of the BLE which showed no acute occlusive DVT, She had a nuclear medicine perfusion scan of the lungs as well which showed low probability for PE she is not currently seeing a drop count associate This initial assessment/diagnostic orders/clinical plan/treatment(s) is/are subject to change based on patients health status, clinical progression and re- assessment by fellow clinical providers in the ED. Further treatment and workup at subsequent clinical providers discretion. Patient/guardian urged not to elope from the ED as their condition may be serious if not clinically assessed and managed. Initial orders include: labs, EKG, CXR
--- NOTE | 2020-06-05 17:12 | Electrocardiograph Report ---
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
== END 2020-06-04 19:20 | disposition left against medical advice (07) ==
LOC: ED 16:18
DX: M79.89 Other specified soft tissue disorders (principal); Z53.21 Procedure and treatment not carried out due to patient leaving prior to being seen by health care provider
CPT/HCPCS: 93005

== ENCOUNTER 2020-06-26 23:46 | Observation (INO) | payer OTHER ==
--- NOTE | 2020-06-27 00:42 | XRay Report ---
CHEST 2 VIEWS INDICATION: chest pain. COMPARISON: 05/21/2020. FINDINGS: Support devices: None. Heart: Stable heart size. Lungs/Pleura: No acute air space or interstitial disease. No significant pleural effusion. Thoracic stent graft noted. IMPRESSION: No acute findings. Signer Name: Josiah Castro MD Signed: 06/27/2020 12:37 AM Workstation Name: [id number]
[2020-06-27] MEDS ORDERED: fentaNYL 100 MCG/2 ML INJ IV ONE (03:56)
[2020-06-27] MEDS ORDERED: ONDANSETRON 4 MG/2 ML INJ IV ONE (03:56)
--- NOTE | 2020-06-27 04:01 | Emergency Department Report ---
HPI - General Chief Complaint: Chest Pain Time Seen by Provider: 06/27/20 03:39 - HPI HPI: Room 7 The patient is a 39-year-old female present with a chief complaint of chest pain. The patient states for 1.5 weeks she has had substernal chest pain that is been sharp and dull in nature. Patient states the pain has been constant but worsens with movement. Patient denies shortness of breath, nausea/vomiting or diaphoresis with this pain. Patient denies history of cough or fever. The patient also states 3 days ago after standing up she felt the sole of her foot was numb causing her to fall to the ground. Patient states she injured her right knee. Patient denies any other numbness, or dysarthria. Patient states over the past week she has also noticed bilateral lower extremity edema. ED Past Medical Hx - Past Medical History Hx Hypertension: Yes Hx Heart Attack/AMI: (normal stress 10-31-16, normal perfusion scan May 2017) Hx Deep Vein Thrombosis: Yes Hx Pulmonary Embolism: Yes Hx GERD: Yes Hx Seizures: Yes Additional medical history: pericarditis, pt states hyperthyroidism, thyroid storm, PE x2, (R lung 05/2016, L lung 01/2017--on coumadin), R leg DVT 03/2017, Graves Disease, heart murmur, aortic dissection - Surgical History Hx Coronary Stent: Yes ("multiple stents") Additional Surgical History: Left arm surgery 02/2017, Right knee, Rt leg. 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, Alaina Filter - Family History Family history: no significant - Social History Smoking Status: Current Every Day Smoker (1/30 pack/day) Substance Use Type: None (Denies illicit drug use) - Medications Home Medications: Home Medications Medication Instructions Recorded Confirmed Last Taken Type Aspirin EC [Halfprin EC] 81 mg PO QDAY #30 01/01/20 06/27/20 06/26/20 21:00 Rx ALPRAZolam [Xanax TAB] 0.5 mg PO BID #20 tablet 04/22/20 06/27/20 06/26/20 21:00 Rx Gabapentin 300 mg PO BID #60 cap 04/22/20 06/27/20 06/26/20 21:00 Rx Oxycodone HCl/Acetaminophen 1 each PO TID #21 tablet 04/22/20 06/27/20 06/26/20 10:00 Rx [Percocet 7.5/325 mg] QUEtiapine [SEROquel] 100 mg PO BID 30 Days #60 tablet 04/22/20 06/27/20 06/26/20 21:00 Rx Warfarin [Coumadin] 7.5 mg PO DAILY@1700 #30 tablet 04/22/20 06/26/20 17:00 Rx propranoloL [Inderal] 20 mg PO TID 30 Days #90 tablet 04/22/20 06/26/20 21:00 Rx ED Review of Systems ROS: Stated complaint: CHEST PAIN;FAINTING;WU LEG SWELLING Other details as noted in HPI Constitutional: denies: diaphoresis, fever Eyes: denies: eye pain ENT: denies: throat pain Respiratory: denies: cough, shortness of breath Cardiovascular: chest pain Endocrine: no symptoms reported Gastrointestinal: denies: nausea, vomiting Genitourinary: denies: dysuria Musculoskeletal: arthralgia Neurological: denies: headache Physical Exam - Physical Exam Vital Signs: Vital Signs 06/27/20 00:05 Temperature 98.4 F Pulse Rate 95 H Respiratory 18 Rate Blood Pressure 128/77 O2 Sat by Pulse 96 Oximetry Physical Exam: GENERAL: The patient is well-developed well-nourished female lying on stretcher not appearing to be in acute distress. [] HEENT: Normocephalic. Atraumatic. Extraocular motions are intact. Patient has moist mucous membranes. NECK: Supple. Trachea midline CHEST/LUNGS: Clear to auscultation. There is no respiratory distress noted. HEART/CARDIOVASCULAR: Regular. There is no tachycardia. There is no gallop rub or murmur. ABDOMEN: Abdomen is soft, nontender. Patient has normal bowel sounds. There is no abdominal distention. SKIN: There is no rash. There is no edema. There is no diaphoresis. NEURO: The patient is awake, alert, and oriented. The patient is cooperative. The patient has no focal neurologic deficits. The patient has normal speech MUSCULOSKELETAL: There is no evidence of acute injury. ED Course Vital Signs 06/27/20 00:05 Temperature 98.4 F Pulse Rate 95 H Respiratory 18 Rate Blood Pressure 128/77 O2 Sat by Pulse 96 Oximetry - EJ/Peripheral Line Neck L Time Out Performed: No Indications: nurses unable to establis Skin Cleansed in Sterile Fashion: Yes Size: 20 Dressing Placed: Tegaderm Patient Tolerated Procedure: well, no complications - Phlebotomy Reason for Blood Draw by MD: RN/lab unable Obtained Bloods via: femoral vein stick Estimated cc's Blood Obtained: 12 ED Medical Decision Making - Lab Data Result diagrams: 06/27/20 06:00 06/27/20 06:00 - EKG Data -: EKG Interpreted by Me EKG shows normal: sinus rhythm Rate: normal - EKG Data When compared to previous EKG there are: previous EKG unavailable Interpretation: other (No ischemic changes seen) - Radiology Data Radiology results: report reviewed (Chest x-ray), image reviewed (Chest x-ray) interpreted by me: Chest x-ray-no focal infiltrates, no pneumothorax. [facility] [address] [place] [address] XRay Report Signed Patient: FELIZ HERRING MR#: [id number] : 1980 Acct:[id number] Age/Sex: 39 / F ADM Date: 06/26/20 Loc: ED Attending Dr: Ordering Physician: LUL SEO MD Date of Service: 06/27/20 Procedure(s): XR chest routine 2V Accession Number(s): [id number] cc: LUL SEO MD Fluoro Time In Minutes: CHEST 2 VIEWS INDICATION: chest pain. COMPARISON: 05/21/2020. FINDINGS: Support devices: None. Heart: Stable heart size. Lungs/Pleura: No acute air space or interstitial disease. No significant pleural effusion. Thoracic stent graft noted. IMPRESSION: No acute findings. Signer Name: Josiah Castro MD Signed: 06/27/2020 12:37 AM Workstation Name: [id number] Transcribed By: ES Dictated By: Josiah Castro MD Electronically Authenticated By: Josiah Castro MD Signed Date/Time: 06/27/2036 DD/ TD/TT: Print Cancel - Differential Diagnosis ACS, PE, pericarditis, GERD Critical care attestation.: If time is entered above; I have spent that time in minutes in the direct care of this critically ill patient, excluding procedure time. ED Disposition Clinical Impression: Chest pain Disposition: - OP ADMIT IP TO THIS HOSP Is pt being admited?: Yes Does the pt Need Aspirin: No Condition: Fair Time of Disposition: 06:03 Heart Score - HEART Score History: Highly suspicious EKG: Normal Age: < 45 Risk factors: > 3 risk factors or hx of atherosclerotic disease Troponin: < normal limit HEART Score: 4 - EKG Read Time Time EKG Completed: 00:00 EKG Read Time: 00:00
[2020-06-27] MEDS ORDERED: LIDOCAINE 1%/EPINEPHRINE 1:100,000 VIAL (20 ML) INFILTRATI ONE (05:50)
[2020-06-27 06:28] LABS: Basophils # (Auto) 0.2 K/mm3 (0.0-0.1); Basophils % (Auto) 2.4 % (0.0-1.8); Eosinophils # (Auto) 0.3 K/mm3 (0.0-0.4); Eosinophils % (Auto) 4.7 % (0.0-4.3); Hematocrit 30.9 % (30.3-42.9); Hemoglobin 9.8 gm/dl (10.1-14.3); Lymphocytes # (Auto) 2.5 K/mm3 (1.2-5.4); Lymphocytes % (Auto) 36.1 % (13.4-35.0); Mean Corpuscular HGB Conc 32 % (30-34); Mean Corpuscular Volume 72 fl (79-97); Monocytes # (Auto) 0.4 K/mm3 (0.0-0.8); Monocytes % (Auto) 6.1 % (0.0-7.3); Platelet Count 597 K/mm3 (140-440); Red Blood Count 4.27 M/mm3 (3.65-5.03)
[2020-06-27 06:30] LABS: Red Cell Distribution Width 21.5 % (13.2-15.2)
[2020-06-27 06:37] LABS: INR 0.97 (0.87-1.13)
[2020-06-27 06:38] LABS: Partial Thromboplastin Time 29.6 Sec. (24.2-36.6)
[2020-06-27 06:41] LABS: Alanine Aminotransferase 15 units/L (7-56); Albumin 3.9 g/dL (3.9-5); BUN/Creatinine Ratio 15; Blood Urea Nitrogen 17 mg/dL (7-17); Calcium 8.4 mg/dL (8.4-10.2); Hemolysis Index 29
[2020-06-27] MEDS ORDERED: MORPHINE 4 MG/1 ML INJ IV ONE ×2 (07:37→11:23)
[2020-06-27] MEDS ORDERED: ONDANSETRON 4 MG/2 ML INJ IV PRN (12:22)
[2020-06-27] MEDS ORDERED: NALOXONE 0.4 MG/1 ML INJ IV PRN (12:22)
[2020-06-27] MEDS ORDERED: ACETAMINOPHEN 325 MG TAB PO PRN (12:22)
[2020-06-27] MEDS ORDERED: HEPARIN 10,000 UNITS/10 ML VIAL IV ONE (12:27)
[2020-06-27] MEDS ORDERED: HEPARIN 10,000 UNITS/10 ML VIAL IV PRN (12:27)
--- NOTE | 2020-06-27 12:57 | History and Physical Report ---
History of Present Illness Date of examination: 06/27/20 Date of admission: 06/27/20 09:59 Chief complaint: Syncope, chest pain, leg swelling History of present illness: 39-year-old -[place] female with past medical history of blood clotting disorder, PE x4, aortic thrombosis, seizure disorder, hypothyroidism, obesity, pericarditis, night terrors, anxiety/mood disorder who presents with chest pain leg swelling and syncope. Patient states that she has had chest tenderness for the past week, 9/10 pain, tender to touch over her chest, nonradiating to her arm or neck. She is also complaining of lower extremity leg pain and swelling which has been happening for the last week also. Patient also complains of syncopal episodes in the last 2 weeks, states that she had 4 syncopal episodes, completely blacked out for 2 to 3 minutes. Last episode was 2 days ago when she was walking down the stairs and at the lower end of the stairs she completely blacked out and woke up on the concrete, scuffed her right knee. Patient currently goes to a clinic to have her INRs checked since she is on warfarin, her INR has been subtherapeutic for some time now. Her target is 2.5-3. Due to all her issues, the clinic sent her to the hospital for evaluation. Denies any shortness of breath nausea vomiting, melena, bright red blood per rectum. Patient states that she is allergic to Lovenox but has been on heparin multiple times. In the ED they attempted to obtain a VQ scan to rule out PE, but her IV was infiltrated. Currently her INR is very subtherapeutic. Patient states that she has been compliant with her warfarin which is 7.5 mg daily. Past History Past Medical History: other (Blood clotting disorder, pulmonary embolism x4, aortic thrombosis, seizure disorder, hypothyroidism, obesity, pericarditis, night terrors, anxiety, mood disorder) Past Surgical History: Other (Aortic thrombus biotic therapy with filter placement, left arm vascular surgery, angiogram in right leg) Social history: other (Patient smokes 1 cigarette/day, no alcohol or illicit drug use) Family history: no significant family history Medications and Allergies Allergies Allergy/AdvReac Type Severity Reaction Status Date / Time acetaminophen [From Tylenol] Allergy Hives Verified 06/27/20 12:33 enoxaparin [From Lovenox] Allergy Rash Verified 06/27/20 12:33 garlic Allergy Unknown Verified 06/27/20 12:33 ibuprofen [From Motrin] Allergy Unknown Verified 06/27/20 12:33 oxycodone [From Percocet] Allergy Itching Verified 06/27/20 12:33 peanut oil Allergy Unknown Verified 06/27/20 12:33 Penicillins Allergy Unknown Verified 06/27/20 12:33 Home Medications Medication Instructions Recorded Confirmed Last Taken Type Aspirin EC [Halfprin EC] 81 mg PO QDAY #30 01/01/20 Unknown Rx ALPRAZolam [Xanax TAB] 0.5 mg PO BID #20 tablet 04/22/20 Unknown Rx Gabapentin 300 mg PO BID #60 cap 04/22/20 Unknown Rx Oxycodone HCl/Acetaminophen 1 each PO TID #21 tablet 04/22/20 Unknown Rx [Percocet 7.5/325 mg] QUEtiapine [SEROquel] 100 mg PO BID 30 Days #60 tablet 04/22/20 Unknown Rx Warfarin [Coumadin] 7.5 mg PO DAILY@1700 #30 tablet 04/22/20 Unknown Rx propranoloL [Inderal] 20 mg PO TID 30 Days #90 tablet 04/22/20 Unknown Rx Active Meds: Active Medications Acetaminophen (Acetaminophen 325 Mg Tab) 650 mg PO Q4H PRN PRN Reason: Pain MILD(1-3)/Fever >100.5/OSEGUERA Alprazolam (Alprazolam 0.5 Mg Tab) 0.5 mg PO BID [facility] Aspirin (Aspirin Ec 81 Mg Tab) 81 mg PO QDAY [facility] Gabapentin (Gabapentin 300 Mg Cap) 300 mg PO BID [facility] Heparin Sodium (Porcine) (Heparin 10,000 Units/10 Ml Vial) 4,000 unit 40 unit/kg (4000 unit) IV Q6H PRN PRN Reason: Anti-Xa Assay < 0.1 units/ml Heparin Sodium/Sodium Chloride (Heparin/ 0.45% Nacl-25,000 Unit/500 Ml) 25,000 unit in 500 mls @ 29 mls/hr IV TITR [facility]; Protocol Levetiracetam (Levetiracetam 500 Mg Tab) 500 mg PO BID [facility] Morphine Sulfate (Morphine 2 Mg/1 Ml Inj) 4 mg IV Q4H PRN PRN Reason: Pain, Moderate (4-6) Naloxone HCl (Naloxone 0.4 Mg/1 Ml Inj) 0.1 mg IV Q2MIN PRN PRN Reason: Res Rate </= 8 or 02 SAT < 92% Ondansetron HCl (Ondansetron 4 Mg/2 Ml Inj) 4 mg IV Q8H PRN PRN Reason: Nausea And Vomiting Propranolol HCl (Propranolol 10 Mg Tab) 20 mg PO TID [facility] Quetiapine Fumarate (Quetiapine 100 Mg Tab) 300 mg PO QHS [facility] Sodium Chloride (Sodium Chloride 0.9% 10 Ml Flush Syringe) 10 ml IV BID ELLIOTT Sodium Chloride (Sodium Chloride 0.9% 10 Ml Flush Syringe) 10 ml IV PRN PRN PRN Reason: LINE FLUSH Warfarin Sodium (Warfarin 10 Mg Tab) 10 mg PO DAILY@1700 ELLIOTT; Protocol Review of Systems All systems: negative Exam - Constitutional Vitals: Temp Pulse Resp BP Pulse Ox 98.4 F 69 12 132/88 99 06/27/20 00:05 06/27/20 12:01 06/27/20 12:01 06/27/20 12:01 06/27/20 12:01 General appearance: Present: no acute distress, well-nourished - EENT Eyes: Present: PERRL ENT: hearing intact, clear oral mucosa - Neck Neck: Present: supple, normal ROM - Respiratory Respiratory effort: normal Respiratory: bilateral: CTA - Cardiovascular Heart Sounds: Present: S1 & S2. Absent: rub, click - Extremities Extremities: pulses symmetrical, No edema, Full ROM (Bilateral pain in lower extremities with palpation) Peripheral Pulses: within normal limits - Abdominal General gastrointestinal: Present: soft, non-tender, non-distended, normal bowel sounds Female genitourinary: Present: normal - Integumentary Integumentary: Present: clear, warm, dry - Musculoskeletal Musculoskeletal: gait normal, strength equal bilaterally - Psychiatric Psychiatric: appropriate mood/affect, intact judgment & insight - Neurologic Neurologic: CNII-XII intact, moves all extremities HEART Score - HEART Score EKG: Normal Age: < 45 Risk factors: > 3 risk factors or hx of atherosclerotic disease Troponin: Troponin T < 0.010 ng/mL (0.00-0.029) 06/27/20 07:46 Troponin: < normal limit Results - Labs CBC & Chem 7: 06/27/20 06:00 06/27/20 06:00 Labs: Laboratory Last Values WBC 7.0 K/mm3 (4.5-11.0) 06/27/20 06:00 RBC 4.27 M/mm3 (3.65-5.03) 06/27/20 06:00 Hgb 9.8 gm/dl (10.1-14.3) L 06/27/20 06:00 Hct 30.9 % (30.3-42.9) 06/27/20 06:00 MCV 72 fl (79-97) L 06/27/20 06:00 MCH 23 pg (28-32) L 06/27/20 06:00 MCHC 32 % (30-34) 06/27/20 06:00 RDW 21.5 % (13.2-15.2) H 06/27/20 06:00 Plt Count 597 K/mm3 (140-440) H 06/27/20 06:00 Lymph % (Auto) 36.1 % (13.4-35.0) H 06/27/20 06:00 [place] % (Auto) 6.1 % (0.0-7.3) 06/27/20 06:00 Eos % (Auto) 4.7 % (0.0-4.3) H 06/27/20 06:00 Baso % (Auto) 2.4 % (0.0-1.8) H 06/27/20 06:00 Lymph # (Auto) 2.5 K/mm3 (1.2-5.4) 06/27/20 06:00 [place] # (Auto) 0.4 K/mm3 (0.0-0.8) 06/27/20 06:00 Eos # (Auto) 0.3 K/mm3 (0.0-0.4) 06/27/20 06:00 Baso # (Auto) 0.2 K/mm3 (0.0-0.1) H 06/27/20 06:00 Seg Neutrophils % 50.7 % (40.0-70.0) 06/27/20 06:00 Seg Neutrophils # 3.6 K/mm3 (1.8-7.7) 06/27/20 06:00 PT 12.7 Sec. (12.2-14.9) 06/27/20 06:00 INR 0.97 (0.87-1.13) 06/27/20 06:00 APTT 29.6 Sec. (24.2-36.6) 06/27/20 06:00 D-Dimer 386.50 ng/mlDDU (0-234) H 06/27/20 06:00 Sodium 137 mmol/L (137-145) 06/27/20 06:00 Potassium 4.3 mmol/L (3.6-5.0) 06/27/20 06:00 Chloride 102.4 mmol/L (98-107) 06/27/20 06:00 Carbon Dioxide 25 mmol/L (22-30) 06/27/20 06:00 Anion Gap 14 mmol/L 06/27/20 06:00 BUN 17 mg/dL (7-17) 06/27/20 06:00 Creatinine 1.1 mg/dL (0.6-1.2) 06/27/20 06:00 Estimated GFR > 60 ml/min 06/27/20 06:00 BUN/Creatinine Ratio 15 % 06/27/20 06:00 Glucose 85 mg/dL (65-100) 06/27/20 06:00 Calcium 8.4 mg/dL (8.4-10.2) 06/27/20 06:00 Total Bilirubin < 0.20 mg/dL (0.1-1.2) 06/27/20 06:00 AST 21 units/L (5-40) 06/27/20 06:00 ALT 15 units/L (7-56) 06/27/20 06:00 Alkaline Phosphatase 66 units/L (35-129) 06/27/20 06:00 Troponin T < 0.010 ng/mL (0.00-0.029) 06/27/20 07:46 NT-Pro-B Natriuret Pep 119.8 pg/mL (0-450) 06/27/20 06:00 Total Protein 6.8 g/dL (6.3-8.2) 06/27/20 06:00 Albumin 3.9 g/dL (3.9-5) 06/27/20 06:00 Albumin/Globulin Ratio 1.3 % 06/27/20 06:00 HCG, Qual Negative (Negative) 06/27/20 06:00 Assessment and Plan Assessment and plan: 39-year-old -[place] female with past medical history of blood clotting disorder who presents with subtherapeutic INR and syncopal episodes Blood clotting disorder History of pulmonary embolism History of DVTs INR subtherapeutic Patient started on heparin drip Patient started on warfarin with pharmacy consult VQ scan pending Continue to monitor for bleeding Patient is therapeutic, patient should be able to be discharged back to hematology clinic Multiple syncopal episodes Etiology unclear EKG normal sinus rhythm Cardiology consulted Thyroid studies pending Aortic dissection Aortic thrombosis history Continue warfarin and heparin Propranolol Seizure disorder Continue Keppra Neuropathy in lower extremities Gabapentin Hyperthyroidism/Graves' disease Thyroid studies pending Patient on methimazole, but patient quoted the wrong dose Patient states that she is also taking levothyroxine We will assess thyroid studies and obtain the proper doses of medications Night terrors Seroquel Anxiety/mood disorder Xanax CODE STATUS: Full DVT prophylaxis: Heparin GTT/warfarin Disposition: Continue treatment until patient is therapeutic. Cardiology consulted for multiple syncopal episodes.
[2020-06-27 13:10] LABS: INR 1.01 (0.87-1.13)
[2020-06-27 13:11] LABS: Partial Thromboplastin Time 29.2 Sec. (24.2-36.6)
[2020-06-27] MEDS: HEPARIN/ 0.45% NACL DRIP 25,000 UNIT/500 ML BAG IV SCH (13:26)
[2020-06-27] MEDS: MORPHINE 2 MG/1 ML INJ IV PRN ×3 (13:38→18:53)
[2020-06-27] MEDS ORDERED: hydrALAZINE 20 MG/1 ML INJ IV PRN (16:31)
[2020-06-27] MEDS ORDERED: WARFARIN 10 MG TAB PO SCH ×2 (17:00)
[2020-06-27] MEDS: PROPRANOLOL 10 MG TAB PO SCH ×2 (17:03→21:38)
[2020-06-27] MEDS: QUEtiapine 100 MG TAB PO SCH (21:38)
[2020-06-27] MEDS: GABAPENTIN 300 MG CAP PO SCH (21:38)
[2020-06-27] MEDS: levETIRAcetam 500 MG TAB PO SCH (21:38)
[2020-06-27] MEDS: ALPRAZolam 0.5 MG TAB PO SCH (21:38)
[2020-06-28] MEDS: MORPHINE 2 MG/1 ML INJ IV PRN ×5 (00:37→20:44)
[2020-06-28] MEDS: PROPRANOLOL 10 MG TAB PO SCH ×3 (10:20→22:20)
[2020-06-28] MEDS: ALPRAZolam 0.5 MG TAB PO SCH ×2 (10:21→22:21)
[2020-06-28] MEDS: GABAPENTIN 300 MG CAP PO SCH ×2 (10:21→22:20)
[2020-06-28] MEDS: levETIRAcetam 500 MG TAB PO SCH ×2 (10:21→22:20)
[2020-06-28] MEDS: ASPIRIN EC 81 MG TAB PO SCH (10:21)
--- NOTE | 2020-06-28 10:32 | Progress Note ---
Assessment and Plan Assessment and plan: 39-year-old -Spanish female with past medical history of blood clotting disorder who presents with subtherapeutic INR and syncopal episodes Blood clotting disorder History of pulmonary embolism History of DVTs INR subtherapeutic Patient started on heparin drip Patient started on warfarin with pharmacy consult CTA of chest pending to rule out PE Continue to monitor for bleeding Patient is therapeutic, patient should be able to be discharged back to hematology clinic Multiple syncopal episodes Etiology unclear EKG normal sinus rhythm Cardiology consulted Aortic dissection Aortic thrombosis history Continue warfarin and heparin Propranolol Seizure disorder Continue Keppra Neuropathy in lower extremities Gabapentin Hyperthyroidism/Graves' disease Hypothyroidism Thyroid studies noted, hypothyroidism Continue levothyroxine Patient will need follow-up outpatient clinic for thyroid studies Night terrors Seroquel Anxiety/mood disorder Xanax CODE STATUS: Full DVT prophylaxis: Heparin GTT/warfarin Disposition: Continue treatment until patient is therapeutic. CTA chest pending. Cardiology consulted for multiple syncopal episodes. History Interval history: 06/28/2020: Patient seen and examined, continues to have mild chest pain but is decreased. Patient currently on heparin, no fevers or chills. Patient is walking around the room. No syncopal episodes. Hospitalist Physical - Physical exam Narrative exam: General appearance: Obese, no acute distress, well-nourished EENT: PERRL, EOM intact, hearing intact, clear oral mucosa, dentition normal Neck: Present: supple, normal ROM Respiratory: bilateral: CTA, negative: rales, rhonchi, wheezing Cardiovascular: Regular rate/rhythm, Normal S1 & S2. No gallop, rub Extremities: no ischemia, No edema, normal temperature, normal color, Full ROM mild tenderness in lower extremities with palpation Abdominal: soft, non-tender, non-distended, normal bowel sounds Integumentary: Present: clear, warm, dry Psychiatric: appropriate mood/affect, intact judgment & insight Neurologic: CNII-XII intact, moves all extremities - Constitutional Vitals: Temp Pulse Resp BP Pulse Ox 98.5 F 62 19 121/59 100 06/28/20 10:19 06/28/20 10:20 06/28/20 04:31 06/28/20 10:20 06/28/20 07:27 General appearance: Present: no acute distress, well-nourished HEART Score - HEART Score EKG: Normal Age: < 45 Risk factors: > 3 risk factors or hx of atherosclerotic disease Troponin: Troponin T < 0.010 ng/mL (0.00-0.029) 06/27/20 07:46 Troponin: < normal limit Results - Labs CBC & Chem 7: 06/27/20 06:00 06/27/20 06:00 Labs: Laboratory Last Values WBC 7.0 K/mm3 (4.5-11.0) 06/27/20 06:00 RBC 4.27 M/mm3 (3.65-5.03) 06/27/20 06:00 Hgb 9.8 gm/dl (10.1-14.3) L 06/27/20 06:00 Hct 30.9 % (30.3-42.9) 06/27/20 06:00 MCV 72 fl (79-97) L 06/27/20 06:00 MCH 23 pg (28-32) L 06/27/20 06:00 MCHC 32 % (30-34) 06/27/20 06:00 RDW 21.5 % (13.2-15.2) H 06/27/20 06:00 Plt Count 597 K/mm3 (140-440) H 06/27/20 06:00 Lymph % (Auto) 36.1 % (13.4-35.0) H 06/27/20 06:00 [place] % (Auto) 6.1 % (0.0-7.3) 06/27/20 06:00 Eos % (Auto) 4.7 % (0.0-4.3) H 06/27/20 06:00 Baso % (Auto) 2.4 % (0.0-1.8) H 06/27/20 06:00 Lymph # (Auto) 2.5 K/mm3 (1.2-5.4) 06/27/20 06:00 [place] # (Auto) 0.4 K/mm3 (0.0-0.8) 06/27/20 06:00 Eos # (Auto) 0.3 K/mm3 (0.0-0.4) 06/27/20 06:00 Baso # (Auto) 0.2 K/mm3 (0.0-0.1) H 06/27/20 06:00 Seg Neutrophils % 50.7 % (40.0-70.0) 06/27/20 06:00 Seg Neutrophils # 3.6 K/mm3 (1.8-7.7) 06/27/20 06:00 PT 13.1 Sec. (12.2-14.9) 06/27/20 12:45 INR 1.01 (0.87-1.13) 06/27/20 12:45 APTT 29.2 Sec. (24.2-36.6) 06/27/20 12:45 D-Dimer 386.50 ng/mlDDU (0-234) H 06/27/20 06:00 Heparin Anti-Xa Level 1.83 U.I./ml (0.3-0.7) H 06/27/20 19:46 Sodium 137 mmol/L (137-145) 06/27/20 06:00 Potassium 4.3 mmol/L (3.6-5.0) 06/27/20 06:00 Chloride 102.4 mmol/L (98-107) 06/27/20 06:00 Carbon Dioxide 25 mmol/L (22-30) 06/27/20 06:00 Anion Gap 14 mmol/L 06/27/20 06:00 BUN 17 mg/dL (7-17) 06/27/20 06:00 Creatinine 1.1 mg/dL (0.6-1.2) 06/27/20 06:00 Estimated GFR > 60 ml/min 06/27/20 06:00 BUN/Creatinine Ratio 15 % 06/27/20 06:00 Glucose 85 mg/dL (65-100) 06/27/20 06:00 Calcium 8.4 mg/dL (8.4-10.2) 06/27/20 06:00 Total Bilirubin < 0.20 mg/dL (0.1-1.2) 06/27/20 06:00 AST 21 units/L (5-40) 06/27/20 06:00 ALT 15 units/L (7-56) 06/27/20 06:00 Alkaline Phosphatase 66 units/L (35-129) 06/27/20 06:00 Troponin T < 0.010 ng/mL (0.00-0.029) 06/27/20 07:46 NT-Pro-B Natriuret Pep 119.8 pg/mL (0-450) 06/27/20 06:00 Total Protein 6.8 g/dL (6.3-8.2) 06/27/20 06:00 Albumin 3.9 g/dL (3.9-5) 06/27/20 06:00 Albumin/Globulin Ratio 1.3 % 06/27/20 06:00 TSH 46.620 mlU/mL (0.270-4.200) H 06/27/20 12:38 Free T4 < 0.10 ng/dL (0.76-1.46) L 06/27/20 12:38 HCG, Qual Negative (Negative) 06/27/20 06:00 Rojas/IV: Voiding Method Toilet Active Medications - Current Medications Current Medications: Generic Name Dose Route Start Last Admin Trade Name Freq PRN Reason Stop Dose Admin Alprazolam 0.5 mg 06/27/20 22:00 06/28/20 10:21 Alprazolam 0.5 Mg Tab PO 0.5 mg BID ELLIOTT Administration Aspirin 81 mg 06/28/20 10:00 06/28/20 10:21 Aspirin Ec 81 Mg Tab PO 81 mg QDAY ELLIOTT Administration Gabapentin 300 mg 06/27/20 22:00 06/28/20 10:21 Gabapentin 300 Mg Cap PO 300 mg BID ELLIOTT Administration Heparin Sodium (Porcine) 4,000 unit 06/27/20 12:27 Heparin 10,000 Units/10 Ml Vial 40 unit/kg (4000 unit) IV Q6H PRN Anti-Xa Assay < 0.1 units/ml Hydralazine HCl 10 mg 06/27/20 16:31 Hydralazine 20 Mg/1 Ml Inj IV Q30MIN PRN Blood Pressure Heparin Sodium/Sodium Chloride 25,000 unit in 500 mls @ 29 mls/hr 06/27/20 13:00 06/27/20 22:45 Heparin/ 0.45% Nacl-25,000 Unit/500 Ml IV 1,250 units/hr TITR ELLIOTT 25 mls/hr Titration Protocol 1,450 UNITS/HR Levetiracetam 500 mg 06/27/20 22:00 06/28/20 10:21 Levetiracetam 500 Mg Tab PO 500 mg BID ELLIOTT Administration Levothyroxine Sodium 50 mcg 06/29/20 06:00 Levothyroxine 75 Mcg Tab PO DAILY@0600 ELLIOTT Morphine Sulfate 4 mg 06/27/20 12:22 06/28/20 10:29 Morphine 2 Mg/1 Ml Inj IV 4 mg Q4H PRN Administration Pain, Moderate (4-6) Naloxone HCl 0.1 mg 06/27/20 12:22 Naloxone 0.4 Mg/1 Ml Inj IV Q2MIN PRN Res Rate </= 8 or 02 SAT < 92% Ondansetron HCl 4 mg 06/27/20 12:22 Ondansetron 4 Mg/2 Ml Inj IV Q8H PRN Nausea And Vomiting Propranolol HCl 20 mg 06/27/20 14:00 06/28/20 10:20 Propranolol 10 Mg Tab PO 20 mg TID ELLIOTT Administration Quetiapine Fumarate 300 mg 06/27/20 22:00 06/27/20 21:38 Quetiapine 100 Mg Tab PO 300 mg QHS ELLIOTT Administration Sodium Chloride 10 ml 06/27/20 22:00 06/28/20 10:22 Sodium Chloride 0.9% 10 Ml Flush Syringe IV 10 ml BID ELLIOTT Administration Sodium Chloride 10 ml 06/27/20 12:22 Sodium Chloride 0.9% 10 Ml Flush Syringe IV PRN PRN LINE FLUSH Warfarin Sodium 10 mg 06/27/20 17:00 06/27/20 17:02 Warfarin 10 Mg Tab PO 10 mg DAILY@1700 ELLIOTT Administration
--- NOTE | 2020-06-28 13:40 | Consultation ---
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 She is prescribed oral anticoagulation therapy with warfarin, but her compliance has been questioned in the past. On her current presentation, the INR is markedly subtherapeutic at 0.9. She also has a history of thoracic aortic dissection, and had an aortic graft procedure for a type B dissection several years ago. On the previous admission February 2018, echocardiogram reported a mild cardiomyopathy with left ventricular ejection fraction 35 to 40%. Thallium stress test demonstrated no evidence of coronary artery disease or cardiac ischemia. She is admitted to the hospital at this time with atypical chest pain. Her ches t pain is poorly characterized, nonexertional and has no anginal characteristics. In the emergency room, the ECG was normal sinus rhythm, normal ECG. Serial troponin levels were normal. Cardiology consultation was requested for chest pain evaluation. Past History Past Medical History: other (Blood clotting disorder, pulmonary embolism x4, aortic thrombosis, seizure disorder, hypothyroidism, obesity, pericarditis, night terrors, anxiety, mood disorder) Past Surgical History: Other (Aortic thrombus biotic therapy with filter placement, left arm vascular surgery, angiogram in right leg) Social history: other (Patient smokes 1 cigarette/day, no alcohol or illicit drug use) Family history: no significant family history Medications and Allergies Allergies Allergy/AdvReac Type Severity Reaction Status Date / Time acetaminophen [From Tylenol] Allergy Hives Verified 06/27/20 12:33 enoxaparin [From Lovenox] Allergy Rash Verified 06/27/20 12:33 garlic Allergy Unknown Verified 06/27/20 12:33 ibuprofen [From Motrin] Allergy Unknown Verified 06/27/20 12:33 oxycodone [From Percocet] Allergy Itching Verified 06/27/20 12:33 peanut oil Allergy Unknown Verified 06/27/20 12:33 Penicillins Allergy Unknown Verified 06/27/20 12:33 Home Medications Medication Instructions Recorded Confirmed Last Taken Type Aspirin EC [Halfprin EC] 81 mg PO QDAY #30 01/01/20 06/27/20 06/26/20 21:00 Rx ALPRAZolam [Xanax TAB] 0.5 mg PO BID #20 tablet 03/05/1006/27/20 06/26/20 21:00 Rx Gabapentin 300 mg PO BID #60 cap 04/22/20 06/27/20 06/26/20 21:00 Rx Oxycodone HCl/Acetaminophen 1 each PO TID #21 tablet 04/22/20 06/27/20 06/26/20 10:00 Rx [Percocet 7.5/325 mg] QUEtiapine [SEROquel] 100 mg PO BID 30 Days #60 tablet 04/22/20 06/27/20 06/26/20 21:00 Rx Warfarin [Coumadin] 7.5 mg PO DAILY@1700 #30 tablet 04/22/20 06/26/20 17:00 Rx propranoloL [Inderal] 20 mg PO TID 30 Days #90 tablet 04/22/20 06/26/20 21:00 Rx Active Meds: Active Medications Alprazolam (Alprazolam 0.5 Mg Tab) 0.5 mg PO BID [facility] Last Admin: 06/28/20 10:21 Dose: 0.5 mg Documented by: Aspirin (Aspirin Ec 81 Mg Tab) 81 mg PO QDAY [facility] Last Admin: 06/28/20 10:21 Dose: 81 mg Documented by: Gabapentin (Gabapentin 300 Mg Cap) 300 mg PO BID [facility] Last Admin: 06/28/20 10:21 Dose: 300 mg Documented by: Heparin Sodium (Porcine) (Heparin 10,000 Units/10 Ml Vial) 4,000 unit 40 unit/kg (4000 unit) IV Q6H PRN PRN Reason: Anti-Xa Assay < 0.1 units/ml Hydralazine HCl (Hydralazine 20 Mg/1 Ml Inj) 10 mg IV Q30MIN PRN PRN Reason: Blood Pressure Heparin Sodium/Sodium Chloride (Heparin/ 0.45% Nacl-25,000 Unit/500 Ml) 25,000 unit in 500 mls @ 29 mls/hr IV TITR [facility]; Protocol Last Titration: 06/27/20 22:45 Dose: 1,250 units/hr, 25 mls/hr Documented by: Levetiracetam (Levetiracetam 500 Mg Tab) 500 mg PO BID [facility] Last Admin: 06/28/20 10:21 Dose: 500 mg Documented by: Levothyroxine Sodium (Levothyroxine 50 Mcg Tab) 50 mcg PO DAILY@0600 [facility] Morphine Sulfate (Morphine 2 Mg/1 Ml Inj) 4 mg IV Q4H PRN PRN Reason: Pain, Moderate (4-6) Last Admin: 06/28/20 10:29 Dose: 4 mg Documented by: Naloxone HCl (Naloxone 0.4 Mg/1 Ml Inj) 0.1 mg IV Q2MIN PRN PRN Reason: Res Rate </= 8 or 02 SAT < 92% Ondansetron HCl (Ondansetron 4 Mg/2 Ml Inj) 4 mg IV Q8H PRN PRN Reason: Nausea And Vomiting Propranolol HCl (Propranolol 10 Mg Tab) 20 mg PO TID [facility] Last Admin: 06/28/20 10:20 Dose: 20 mg Documented by: Quetiapine Fumarate (Quetiapine 100 Mg Tab) 300 mg PO QHS [facility] Last Admin: 06/27/20 21:38 Dose: 300 mg Documented by: Sodium Chloride (Sodium Chloride 0.9% 10 Ml Flush Syringe) 10 ml IV BID [facility] Last Admin: 06/28/20 10:22 Dose: 10 ml Documented by: Sodium Chloride (Sodium Chloride 0.9% 10 Ml Flush Syringe) 10 ml IV PRN PRN PRN Reason: LINE FLUSH Warfarin Sodium (Warfarin 10 Mg Tab) 10 mg PO DAILY@1700 [facility] Last Admin: 06/27/20 17:02 Dose: 10 mg Documented by: Review of Systems Cardiovascular: chest pain, no orthopnea, no palpitations, no rapid/irregular heart beat, no edema, no syncope, no lightheadedness, no shortness of breath Physical Examination Vital Signs Temp Pulse Resp BP Pulse Ox 98.4 F 95 H 18 128/77 96 06/27/20 00:05 06/27/20 00:05 06/27/20 00:05 06/27/20 00:05 06/27/20 00:05 General appearance: no acute distress HEENT: Positive: PERRL Neck: Positive: neck supple Cardiac: Positive: Reg Rate and Rhythm Lungs: Positive: Decreased Breath Sounds Neuro: Positive: Grossly Intact Abdomen: Positive: Soft Female genitourinary: deferred Skin: Positive: Clear Extremities: Absent: edema Results 06/27/20 06:00 06/27/20 06:00 EKG interpretations - Telemetry EKG Rhythm: Sinus Rhythm Assessment and Plan - Patient Problems (1) Chest pain Current Visit: Yes Status: Acute Plan to address problem: Chest pain is nonanginal, ECG is normal and serial troponin levels are normal. No further cardiac chest pain work-up is indicated. Patient is instructed to follow-up with her primary human resource adviser in the outpatient setting for continued guideline directed medical management of her mild nonischemic cardiomyopathy. We will defer to internal medicine for further management of the patient's venous thromboembolism, reassessment for recurrent pulmonary embolism, and management of chronic oral anticoagulation. No further cardiac interventions, will follow on a as needed basis.
[2020-06-28 14:49] LABS: INR 0.96 (0.87-1.13)
[2020-06-28] MEDS: HEPARIN/ 0.45% NACL DRIP 25,000 UNIT/500 ML BAG IV SCH (15:14)
--- NOTE | 2020-06-28 16:00 | Cat Scan Report ---
CTA CHEST WITH IV CONTRAST INDICATION: possible PE, Hx of multiple PE's. TECHNIQUE: Axial CT images were obtained through the chest after injection of 100 cc Omnipaque 350 IV contrast. 3 plane MIP reconstructions were produced. All CT scans at this location are performed using CT dose reduction for ALARA by means of automated exposure control. COMPARISON: CTA chest on 04/06/2020 FINDINGS: Pulmonary Arteries: No pulmonary emboli. Lungs: No acute findings. Stable linear scarring in the right middle lobe. Trachea and Bronchi: No significant abnormality. Heart and Pericardium: No significant abnormality. Vasculature: Descending thoracic aortic stent graft, unchanged in position. No aneurysm. Lymphatics: No lymphadenopathy. Additional Findings: None. Upper Abdomen: No acute findings. Skeletal Structures: No acute findings or aggressive bone lesions. IMPRESSION: 1. No CT evidence for pulmonary embolism. 2. No acute findings. Signer Name: Petr Alonso MD Signed: 06/28/2020 3:56 PM Workstation Name: [id number]
[2020-06-28] MEDS ORDERED: WARFARIN 2.5 MG TAB PO SCH (17:00)
[2020-06-28] MEDS: QUEtiapine 100 MG TAB PO SCH (22:20)
[2020-06-29] MEDS ORDERED: LEVOTHYROXINE 75 MCG TAB PO SCH (06:00)
[2020-06-29] MEDS: LEVOTHYROXINE 50 MCG TAB PO SCH ×2 (06:47→06:50)
[2020-06-29] MEDS ORDERED: MORPHINE 2 MG/1 ML INJ IV PRN (09:45)
[2020-06-29 10:00] LABS: INR 0.92 (0.87-1.13)
[2020-06-29] MEDS ORDERED: MORPHINE 4 MG/1 ML INJ IV PRN (10:00)
[2020-06-29] MEDS: levETIRAcetam 500 MG TAB PO SCH (10:13)
[2020-06-29] MEDS: GABAPENTIN 300 MG CAP PO SCH (10:13)
[2020-06-29] MEDS: ALPRAZolam 0.5 MG TAB PO SCH (10:13)
[2020-06-29] MEDS: PROPRANOLOL 10 MG TAB PO SCH (10:13)
[2020-06-29] MEDS: ASPIRIN EC 81 MG TAB PO SCH (10:13)
[2020-06-29 10:15] VITALS: BP 102/49
--- NOTE | 2020-06-29 10:45 | Discharge Summary ---
Providers - Providers Date of Admission: 06/27/20 09:59 Date of discharge: 06/29/20 Attending physician: BLANCHE PEREZ MD 06/27/20 12:47 Consult to Physician [CONS] Routine Comment: Consulting Provider: DVEIKA MELO Physician Instructions: Reason For Exam: syncope Primary care physician: PHYSICAL THERAPIST TECHNICIAN Hospitalization Reason for admission: leg pain/chest pain/subtherapeutic INR Condition: Stable Hospital course: Assessment and plan: 39-year-old -[place] female with past medical history of blood clotting disorder who presents with subtherapeutic INR and syncopal episodes Blood clotting disorder History of pulmonary embolism History of DVTs INR subtherapeutic Patient started on heparin drip Patient started on warfarin with pharmacy consult CTA of chest negative for PE Dopplers of lower extremities pending Continue to monitor for bleeding Multiple syncopal episodes Etiology unclear EKG normal sinus rhythm Cardiology consulted Aortic dissection Aortic thrombosis history Continue warfarin and heparin Propranolol Seizure disorder Continue Keppra Neuropathy in lower extremities Gabapentin Hyperthyroidism/Graves' disease Hypothyroidism Thyroid studies noted, hypothyroidism Continue levothyroxine Patient will need follow-up outpatient clinic for thyroid studies Night terrors Seroquel Anxiety/mood disorder Xanax CODE STATUS: Full DVT prophylaxis: Heparin GTT/warfarin 06/28/2020: Patient seen and examined, continues to have mild chest pain but is decreased. Patient currently on heparin, no fevers or chills. Patient is walking around the room. No syncopal episodes. 06/29/2020: Nurse reported patient's blood pressure was dropping with morphine, decreased the timing of the medication and patient's blood pressure was still low. Nurse was not comfortable giving the medication which I agreed with. Spoke with the patient and advised we will give her tramadol. Patient stated that she wanted morphine. After discussing with the patient that she was not going to get the morphine due to her low blood pressures, patient stated that she want to leave AMA. I spoke with the patient pertaining to her INR which was subtherapeutic and due to her history of thromboembolism she could have another thromboembolic event. Patient stated that she will go home and double her warfarin herself and follow-up with her clinic and stated she wanted to leave the hospital AMA. Patient understood the risk of leaving the hospital AMA, spoke with nursing staff all documents signed. Disposition: [id number] LEFT AGAINST MED ADVICE Final Discharge Diagnosis (Prints w/discharge instructions): Lupus anticoagulant blood disorder. Subtherapeutic INR. Syncopal episodes. Aortic dissection. Aortic thrombosis. Seizure disorder. Neuropathy in lower extremities. Hyperthyroidism. Hypothyroidism. Night terrors. Mood disorder. Anxiety. Morbid obesity Time spent for discharge: 25 minutes Core Measure Documentation - Palliative Care Palliative Care/ Comfort Measures: Not Applicable - Core Measures Any of the following diagnoses?: none Exam - Physical Exam Narrative exam: General appearance: Obese, no acute distress, well-nourished EENT: PERRL, EOM intact, hearing intact, clear oral mucosa, dentition normal Neck: Present: supple, normal ROM Respiratory: bilateral: CTA, negative: rales, rhonchi, wheezing Cardiovascular: Regular rate/rhythm, Normal S1 & S2. No gallop, rub Extremities: no ischemia, No edema, normal temperature, normal color, Full ROM mild tenderness in lower extremities with palpation Abdominal: soft, non-tender, non-distended, normal bowel sounds Integumentary: Present: clear, warm, dry Psychiatric: appropriate mood/affect, intact judgment & insight Neurologic: CNII-XII intact, moves all extremities - Constitutional Vitals: Temp Pulse Resp BP Pulse Ox 98.2 F 77 18 102/49 97 06/29/20 07:32 06/29/20 07:32 06/29/20 07:32 06/29/20 07:32 06/29/20 07:32 Plan Follow up with: PRIMARY MD LUKE [Primary Care Provider] - 3-5 Days Forms: AMA Form
--- NOTE | 2020-06-29 11:10 | Electrocardiograph Report ---
[facility] Test Date: 2020-06-27 Test Time: 00:13:47 Pat Name: FELIZ HERRING Department: Room: A457 1 Gender: F Novelty Dipper: Leeann CLOLAZO : 1980 Requested By: JOHN ZAMORA Order Number: [id number] Reading MD: Rusty Logan Measurements Intervals [place] Rate: 76 P: 51 IA: 160 QRS: 30 QRSD: 74 T: 63 QT: 401 QTc: 453 Interpretive Statements Sinus rhythm Compared to ECG 06/04/2020 16:35:31 No significant changes Electronically Signed On 06-29-2020 11:10:37 EDT by Rusty Logan
== END 2020-06-29 11:08 | disposition left against medical advice (07) ==
LOC: ED 23:46 → 4A 06-27 09:59
PROVIDERS: ADMIT Internal Medicine Cardiovascular Disease; ATTEND Family Medicine
DX: R07.9 Chest pain, unspecified (principal); D68.9 Coagulation defect, unspecified; R55 Syncope and collapse; I71.00 Dissection of unspecified site of aorta; R56.9 Unspecified convulsions; G62.9 Polyneuropathy, unspecified; E05.90 Thyrotoxicosis, unspecified without thyrotoxic crisis or storm; E05.00 Thyrotoxicosis with diffuse goiter without thyrotoxic crisis or storm; F51.4 Sleep terrors [night terrors]; F41.9 Anxiety disorder, unspecified; F39 Unspecified mood [affective] disorder; K21.9 Gastro-esophageal reflux disease without esophagitis; E03.9 Hypothyroidism, unspecified; I74.10 Embolism and thrombosis of unspecified parts of aorta; F17.210 Nicotine dependence, cigarettes, uncomplicated; R01.1 Cardiac murmur, unspecified; Z86.711 Personal history of pulmonary embolism; Z79.899 Other long term (current) drug therapy; Z98.890 Other specified postprocedural states; Z79.82 Long term (current) use of aspirin; Z79.01 Long term (current) use of anticoagulants; Z86.718 Personal history of other venous thrombosis and embolism; Z95.1 Presence of aortocoronary bypass graft
CPT/HCPCS: 36415; 71046; 71275; 80053; 83880; 84439; 84443; 84481; 84484; 84703; 85025; 85379; 85520; 85610; 85730; 87641; 93005; 96365; 96366; 96375; 96376; 99285; G0378; J1644; J2270; J2405; J3010; Q9967

== ENCOUNTER 2020-10-24 23:34 | Emergency (ER) | payer SELFPAY ==
[2020-10-25 00:34] VITALS: BP 130/79
--- NOTE | 2020-10-25 01:13 | Event Note ---
ED Screening Note Date of service: 10/25/20 Time: 00:49 ED Screening Note: 40-year-old female patient with history of venous thromboembolism requiring operative intervention on multiple prior occasions presents to the emergency department with complaints of chest pain and bilateral lower extremity swelling for 2 weeks. Patient states she was diagnosed with a "blood clot in her aortic valve and another one behind my heart, in my aorta" requiring two separate surgeries. Patient has reportedly been on 6 different medications postoperatively. Currently, she is taking Coumadin. Patient has been unable to follow-up at her clinic for refills of her medications. General: Awake, appropriately interactive, no acute distress. Neck: Supple. Full range of motion intact. Cardiovascular: Normal peripheral perfusion. Pulmonary: No respiratory distress. Patient is speaking normally without use of accessory muscles. Skin: No apparent rashes or lesions. Neurological: No facial asymmetry. Speech is clear. Follows commands. Patient is alert and oriented. Musculoskeletal: Moves all four extremities spontaneously with normal range of motion. Psych: Cooperative. Appropriate mood and affect. Ordered labs, EKG, chest x-ray. Requested cardiac cath lab radiology technologist, continuous pulse oximetry, peripheral IV access. Further VTE diagnostic evaluation deferred to additional ED providers following complete history and comprehensive physical exam. I have greeted and performed a focused rapid initial assessment of this patient. A comprehensive ED assessment and evaluation of the patient, analysis of all test results, and completion of the medical decision-making process will be conducted by additional ED providers. This initial assessment/diagnostic orders/clinical plan/treatment(s) is/are subject to change based on patients health status, clinical progression and re-assessment. Further treatment and workup at subsequent clinical provider's discretion. Patient/guardian urged not to elope from the ED as their condition may be serious if not clinically assessed and managed.
--- NOTE | 2020-10-25 01:46 | Emergency Department Report ---
ED Chest Pain HPI - General Chief Complaint: Chest Pain Stated Complaint: CHEST PAIN FAINTING PUI?: No Time Seen by Provider: 10/25/20 00:26 Source: patient Mode of arrival: Ambulatory Limitations: No Limitations - History of Present Illness Initial Comments: Patient is a 40-year-old female the presents emergency room with complaints of left-sided substernal chest pain. Patient states started 2 weeks ago. Patient states the pain is worse with movement and palpation. Patient dates the pain is better with rest and remaining still. Patient denies trauma to the chest. Patient denies injury to the chest. Patient denies any new in her activities or workouts. Patient denies fever and chills. Patient denies cough. Patient denies shortness of breath. Patient denies recent travel. Patient denies recent international travel. Patient denies exposure to the novel coronavirus. Patient denies sick contacts. Patient denies fever and chills. Patient denies cough. Patient denies diarrhea. Patient denies coming in contact with anybody with symptoms of the novel coronavirus. MD Complaint: chest pain -: Sudden, week(s) Onset: during rest Pain Location: substernal, left chest Pain Radiation: none Severity: severe Severity scale (0 -10): 8 Quality: sharp Consistency: constant Improves With: rest Worsens With: palpation, movement re: denies: nausea, vomting, diaphoresis, dyspnea, sense of impending doom Other Symptoms: denies: cough, fever, syncope, rash, acid taste in mouth, leg swelling, palpitations, burping Treatments Prior to Arrival: none Aspirin use within the Past 7 Days: (0) No - Related Data On Oral Contraceptives: No Previous Rx's Medication Instructions Recorded Last Taken Type Aspirin EC [Halfprin EC] 81 mg PO QDAY #30 01/01/20 06/26/20 21:00 Rx ALPRAZolam [Xanax TAB] 0.5 mg PO BID #20 tablet 04/22/20 06/26/20 21:00 Rx Gabapentin 300 mg PO BID #60 cap 04/22/20 06/26/20 21:00 Rx Oxycodone HCl/Acetaminophen 1 each PO TID #21 tablet 04/22/20 06/26/20 10:00 Rx [Percocet 7.5/325 mg] QUEtiapine [SEROquel] 100 mg PO BID 30 Days #60 tablet 04/22/20 06/26/20 21:00 Rx Warfarin [Coumadin] 7.5 mg PO DAILY@1700 #30 tablet 04/22/20 06/26/20 17:00 Rx propranoloL [Inderal] 20 mg PO TID 30 Days #90 tablet 04/22/20 06/26/20 21:00 Rx Allergies Allergy/AdvReac Type Severity Reaction Status Date / Time acetaminophen [From Tylenol] Allergy Hives Verified 06/27/20 12:33 enoxaparin [From Lovenox] Allergy Rash Verified 06/27/20 12:33 garlic Allergy Unknown Verified 06/27/20 12:33 ibuprofen [From Motrin] Allergy Unknown Verified 06/27/20 12:33 oxycodone [From Percocet] Allergy Itching Verified 06/27/20 12:33 peanut oil Allergy Unknown Verified 06/27/20 12:33 Penicillins Allergy Unknown Verified 06/27/20 12:33 Heart Score - HEART Score History: Slightly suspicious EKG: Normal Age: < 45 Risk factors: 1-2 risk factors Troponin: < normal limit HEART Score: 1 - EKG Read Time Time EKG Completed: 23:48 EKG Read Time: 23:54 ED Review of Systems ROS: Stated complaint: CHEST PAIN FAINTING Other details as noted in HPI Constitutional: denies: chills, fever Eyes: denies: eye pain, eye discharge, vision change ENT: denies: ear pain, throat pain Respiratory: denies: cough, shortness of breath, wheezing Cardiovascular: as per HPI, chest pain. denies: palpitations Endocrine: no symptoms reported Gastrointestinal: denies: abdominal pain, nausea, diarrhea Genitourinary: denies: urgency, dysuria, discharge Musculoskeletal: denies: back pain, joint swelling, arthralgia Skin: denies: rash, lesions Neurological: denies: headache, weakness, paresthesias Psychiatric: denies: anxiety, depression Hematological/Lymphatic: denies: easy bleeding, easy bruising ED Past Medical Hx - Past Medical History Previous Medical History?: Yes Hx Hypertension: Yes Hx Heart Attack/AMI: (normal stress 10-31-16, normal perfusion scan May 2017) Hx Congestive Heart Failure: No Hx Diabetes: No Hx Deep Vein Thrombosis: Yes Hx Pulmonary Embolism: Yes Hx GERD: Yes Hx Sickle Cell Disease: No Hx Seizures: Yes Hx Psychiatric Treatment: Yes (anxiety) Hx Asthma: No Hx COPD: No Hx Tuberculosis: No Hx HIV: No Additional medical history: pericarditis, pt states hyperthyroidism, thyroid storm, PE x2, (R lung 05/2016, L lung 01/2017--on coumadin), R leg DVT 03/2017, Graves Disease, heart murmur, aortic dissection - Surgical History Past Surgical History?: Yes Hx Coronary Stent: Yes ("multiple stents") Hx Pacemaker: No Hx Internal Defibrillator: No Additional Surgical History: Left arm surgery 02/2017, Right knee, Rt leg. 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, [place] Filter - Family History Family history: no significant - Social History Smoking Status: Current Every Day Smoker (03/21 pack/day) Substance Use Type: None (Denies illicit drug use) - Medications Home Medications: Home Medications Medication Instructions Recorded Confirmed Last Taken Type Aspirin EC [Halfprin EC] 81 mg PO QDAY #30 01/01/20 06/27/20 06/26/20 21:00 Rx ALPRAZolam [Xanax TAB] 0.5 mg PO BID #20 tablet 04/22/20 06/27/20 06/26/20 21:00 Rx Gabapentin 300 mg PO BID #60 cap 04/22/20 06/27/20 06/26/20 21:00 Rx Oxycodone HCl/Acetaminophen 1 each PO TID #21 tablet 04/22/20 06/27/20 06/26/20 10:00 Rx [Percocet 7.5/325 mg] QUEtiapine [SEROquel] 100 mg PO BID 30 Days #60 tablet 04/22/20 06/27/20 06/26/20 21:00 Rx Warfarin [Coumadin] 7.5 mg PO DAILY@1700 #30 tablet 04/22/20 06/26/20 17:00 Rx propranoloL [Inderal] 20 mg PO TID 30 Days #90 tablet 04/22/20 06/26/20 21:00 Rx ED Physical Exam - General Limitations: No Limitations General appearance: alert, in no apparent distress - Head Head exam: Present: atraumatic, normocephalic - Eye Eye exam: Present: normal appearance - ENT ENT exam: Present: mucous membranes moist - Neck Neck exam: Present: normal inspection - Respiratory Respiratory exam: Present: normal lung sounds bilaterally, chest wall tenderness. Absent: respiratory distress, wheezes, rales, stridor - Cardiovascular Cardiovascular Exam: Present: regular rate, normal rhythm. Absent: systolic murmur, diastolic murmur, rubs, gallop - GI/Abdominal GI/Abdominal exam: Present: soft, normal bowel sounds - Extremities Exam Extremities exam: Present: normal inspection - Back Exam Back exam: Present: normal inspection - Neurological Exam Neurological exam: Present: alert, oriented X3 - Psychiatric Psychiatric exam: Present: normal affect, normal mood - Skin Skin exam: Present: warm, dry, intact, normal color. Absent: rash ED Course Vital Signs 10/25/20 00:19 Temperature 98.3 F Pulse Rate 74 Respiratory 18 Rate Blood Pressure 130/79 O2 Sat by Pulse 99 Oximetry - Reevaluation(s) Reevaluation #1: I discussed all results and clinical findings with patient. I discussed plan of care with patient. Patient agrees with plan of care. Patient is stable for discharge. Patient will be discharged home. Patient given discharge instructions. Patient voiced understanding of discharge instructions. 10/25/20 03:15 GENOVEVA score - Genoveva Score Age > 65: (0) No Aspirin use within the Past 7 Days: (0) No 3 or more CAD Risk Factors: (0) No 2 or more Angina events in past 24 hrs: (0) No Known CAD with more than 50% Stenosis: (0) No Elevated Cardiac Markers: (0) No ST Deviation Greater than 0.5mm: (0) No GENOVEVA Score: 0 ED Medical Decision Making - Lab Data Result diagrams: 10/25/20 01:37 10/25/20 01:37 - EKG Data -: EKG Interpreted by Me EKG shows normal: sinus rhythm, axis, intervals, QRS complexes, ST-T waves Rate: normal - Radiology Data Radiology results: report reviewed, image reviewed interpreted by me: Chest x-ray: No pneumonia, no pneumothorax, no foreign body, no osseous findings, no acute findings CHEST 1 VIEW CHEST 1 VIEW INDICATION: chest pain. COMPARISON: 06/27/2020 FINDINGS: Support devices: Descending thoracic aorta stent graft is unchanged. Heart: Normal. Lungs/Pleura: No acute pulmonary or pleural findings. IMPRESSION: 1. No acute findings. - Medical Decision Making Patient is a 40-year-old female that presents emergency room with complaints of chest pain. Patient's chest pain is reproducible with palpation. Patient's chest pain is also worse with movement. Palpation of the left chest reproduces her symptoms. Patient had an EKG which shows normal sinus rhythm and a normal ST segment. I personally reviewed the EKG. Patient had a chest x-ray which shows no acute findings. I personally reviewed the chest x-ray. Patient had labs done which were essentially unremarkable. Patient's troponin was negative. Patient's chest pain 1 to 2 weeks. Patient is stable for discharge. Patient not require further emergency medical services. Patient not require inpatient services. Since the patient presents emergency room with complaints of chest pain, the patient will refer to her local cardiology group for further evaluation treatment. Patient's chest pain can be worked up as an outpatient since her heart score GENOVEVA score so low. Patient stable for discharge. Patient discharged home. - Differential Diagnosis Chest pain, chest wall pain, chest wall strain, Critical care attestation.: If time is entered above; I have spent that time in minutes in the direct care of this critically ill patient, excluding procedure time. ED Disposition Clinical Impression: Chest wall pain Chest pain Qualifiers: Chest pain type: unspecified Qualified Code(s): R07.9 - Chest pain, unspecified Disposition: 01 HOME / SELF CARE / HOMELESS Is pt being admited?: No Does the pt Need Aspirin: No Condition: Stable Instructions: Nonspecific Chest Pain, Adult, Chest Wall Pain, [id number], Costochondritis Additional Instructions: Patient to follow-up with primary care in 2 to 3 days. Patient to follow-up with cardiology in 2 to 3 days. Patient to rest. Patient to increase water. Patient to avoid strenuous exercise or heavy lifting until cleared by cardiology. Patient to take Tylenol or ibuprofen as needed for pain. . Patient to return to the ER if condition worsens, changes or new symptoms arise. Referrals: CATHERINE DOTSON MD [Staff Physician] - 2-3 Days Time of Disposition: 03:19
--- NOTE | 2020-10-25 02:08 | XRay Report ---
CHEST 1 VIEW CHEST 1 VIEW INDICATION: chest pain. COMPARISON: 06/27/2020 FINDINGS: Support devices: Descending thoracic aorta stent graft is unchanged. Heart: Normal. Lungs/Pleura: No acute pulmonary or pleural findings. IMPRESSION: 1. No acute findings. Signer Name: Elmer Stanley MD Signed: 10/25/2020 2:04 AM Workstation Name: [id number]
[2020-10-25 02:09] LABS: Hematocrit 32.7 % (30.3-42.9); Hemoglobin 10.9 gm/dl (10.1-14.3); Mean Corpuscular HGB Conc 33 % (30-34); Mean Corpuscular Volume 84 fl (79-97); Platelet Count 402 K/mm3 (140-440); Red Blood Count 3.88 M/mm3 (3.65-5.03)
[2020-10-25 02:10] LABS: Red Cell Distribution Width 26.1 % (13.2-15.2)
[2020-10-25 02:18] LABS: INR 1.02 (0.87-1.13)
[2020-10-25 02:19] LABS: Partial Thromboplastin Time 25.2 Sec. (24.2-36.6)
[2020-10-25 02:26] LABS: Alanine Aminotransferase 28 units/L (7-56); Albumin 4.4 g/dL (3.9-5); BUN/Creatinine Ratio 12; Blood Urea Nitrogen 16 mg/dL (7-17); Calcium 9.6 mg/dL (8.4-10.2); Hemolysis Index 15
[2020-10-25 03:07] LABS: Anisocytosis 2+; Total Cells Counted 100
[2020-10-25 03:08] LABS: Platelet Estimate Consistent w Auto
== END 2020-10-25 06:48 | disposition home or self-care (01) ==
LOC: ED 23:34
DX: R07.89 Other chest pain (principal); I10 Essential (primary) hypertension; K21.9 Gastro-esophageal reflux disease without esophagitis; F41.9 Anxiety disorder, unspecified; F17.200 Nicotine dependence, unspecified, uncomplicated; Z79.899 Other long term (current) drug therapy; Z88.8 Allergy status to other drugs, medicaments and biological substances; Z91.018 Allergy to other foods; Z98.890 Other specified postprocedural states
CPT/HCPCS: 36415; 71045; 80053; 83735; 84484; 85007; 85025; 85610; 85730; 93005

== ENCOUNTER 2020-11-25 09:35 | Emergency (ER) | payer SELFPAY ==
--- NOTE | 2020-11-25 10:30 | Event Note ---
ED Screening Note ED Screening Note: cc cp and sz last night/ with fainting went to clinic and they sent her here for low INR pmh-psh sz do x 1.5 y heart valve surgery- aortic she reports removal of clot behind her heart- requiring surgical removal hyperthyroidism bleeding/clotting disorder- heme has not named- is allergic to lovenox rle thrombectomy vein repair surgery home meds propranolol keppra methamaz. lisinopril asa ultram jovani allergy Lovenox tylenol motrin codeine This initial assessment/diagnostic orders/clinical plan/treatment(s) is/are subject to change based on patients health status, clinical progression and re- assessment by fellow clinical providers in the ED. Further treatment and workup at subsequent clinical providers discretion. Patient/guardian urged not to elope from the ED as their condition may be serious if not clinically assessed and managed. Initial orders include: labs To balaji Mcnally RN aware of need for bed
--- NOTE | 2020-11-25 11:49 | Electrocardiograph Report ---
[facility] Test Date: 2020-11-25 Test Time: 09:56:52 Pat Name: FELIZ HERRING Department: Room: Gender: F [employer]: SOPHIA : 1980 Requested By: ED DOC Order Number: [id number] Reading MD: Rusty Logan Measurements Intervals [place] Rate: 68 P: -3 IA: 166 QRS: 7 QRSD: 58 T: 51 QT: 412 QTc: 437 Interpretive Statements Sinus rhythm Probable LVH with secondary repol abnrm Compared to ECG 10/24/2020 23:48:20 No significant changes Electronically Signed On 11-25-2020 11:49:26 EDT by Rusty Logan
[2020-11-25] MEDS ORDERED: levETIRAcetam 1000 MG/NS 0.75% 1,000 MG/100 ML BAG IV ONE (12:12)
--- NOTE | 2020-11-25 12:41 | XRay Report ---
CHEST 1 VIEW INDICATION / CLINICAL INFORMATION: chest pain. COMPARISON: 10/25/2020 FINDINGS: SUPPORT DEVICES: Unchanged. HEART / MEDIASTINUM: No significant abnormality. LUNGS / PLEURA: No significant pulmonary or pleural abnormality. No pneumothorax. ADDITIONAL FINDINGS: No significant additional findings. IMPRESSION: 1. No acute findings. Signer Name: He Mcmahon MD Signed: 11/25/2020 12:36 PM Workstation Name: [id number]
--- NOTE | 2020-11-25 14:08 | Vascular Lab Report ---
DUPLEX DOPPLER LOWER EXTREMITY VEINS, BILATERAL INDICATION: leg swelling hx DVT. TECHNIQUE: Duplex doppler imaging was performed through the veins of both lower extremities using ve nous compression and other maneuvers. COMPARISON: 05/21/2020. FINDINGS: Right Common femoral vein: Negative. Right Superficial femoral vein: Negative. Right Popliteal vein: Negative. Right Calf veins: Negative. Left Common femoral vein: Negative. Left Superficial femoral vein: Negative. Left Popliteal vein: Chronic appearing nonocclusive DVT is again noted and not significantly changed. Left Calf veins: Negative. Additional findings: None. IMPRESSION: No evidence for acute DVT. Stable appearance of the chronic appearing nonocclusive DVT in the left p opliteal vein. Signer Name: Evans Oconnor Jr, MD Signed: 11/25/2020 2:04 PM Workstation Name: [id number]
[2020-11-25] MEDS ORDERED: traMADol 50 MG TAB PO ONE (15:00)
--- NOTE | 2020-11-25 15:34 | Nuclear Medicine Report ---
NUCLEAR MEDICINE PERFUSION LUNG SCAN INDICATION / CLINICAL INFORMATION: HX OF PE. TECHNIQUE: 5.5 mCi of Tc-99m MAA were given by IV. COMPARISON: Chest radiograph dated 11/25/2020. FINDINGS: PERFUSION: No significant perfusion defects. ADDITIONAL FINDINGS: None. IMPRESSION: 1. Low probability for pulmonary embolism. Signer Name: Petr Alonso MD Signed: 11/25/2020 3:30 PM Workstation Name: [id number]
[2020-11-25] MEDS ORDERED: levETIRAcetam 500 MG TAB PO ONE ×2 (16:15→18:25)
[2020-11-25] MEDS ORDERED: MORPHINE 4 MG/1 ML INJ IV ONE ×2 (16:15→18:25)
[2020-11-25 18:01] LABS: Basophils # (Auto) 0.1 K/mm3 (0.0-0.1); Basophils % (Auto) 1.9 % (0.0-1.8); Eosinophils # (Auto) 0.3 K/mm3 (0.0-0.4); Eosinophils % (Auto) 4.5 % (0.0-4.3); Hematocrit 35.8 % (30.3-42.9); Hemoglobin 11.9 gm/dl (10.1-14.3); Lymphocytes # (Auto) 2.4 K/mm3 (1.2-5.4); Lymphocytes % (Auto) 34.6 % (13.4-35.0); Mean Corpuscular HGB Conc 33 % (30-34); Mean Corpuscular Volume 87 fl (79-97); Monocytes # (Auto) 0.6 K/mm3 (0.0-0.8); Platelet Count 343 K/mm3 (140-440); Red Blood Count 4.13 M/mm3 (3.65-5.03)
[2020-11-25 18:16] LABS: Alanine Aminotransferase 13 units/L (7-56); Albumin 3.8 g/dL (3.9-5); BUN/Creatinine Ratio 11; Blood Urea Nitrogen 12 mg/dL (7-17); Calcium 9.2 mg/dL (8.4-10.2); Hemolysis Index 8
--- NOTE | 2020-11-25 18:22 | Emergency Department Report ---
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 She is prescribed oral anticoagulation therapy with warfarin, but her compliance has been questioned in the past. On her current presentation, the INR is markedly subtherapeutic at xxxxxxx. She also has a history of thoracic aortic dissection, and had an aortic graft procedure for a type B dissection several years ago. On the previous admission February 2018, echocardiogram reported a mild cardiomyopathy with left ventricular ejection fraction 35 to 40%. Thallium stress test demonstrated no evidence of coronary artery disease or cardiac ischemia. Today patient is presenting from her Coumadin clinic. She was told her INR was too low. She was told to come immediately to the emergency department for bolus of heparin. Patient states she cannot take Lovenox because it causes severe bruising to the abdomen she was told not to take it anymore. Patient states she has chest pain as well. Is a chronic chest pain ever since she had her initial aortic dissection. Patient has been here multiple times for same complaint with negative troponins and patient also had a negative stress test earlier this year. Patient also complaining of seizures. She states she had multiple seizures today. She does take Keppra. Patient states that the last seizure she had was in our waiting room which was not witnessed by anyone. Severity scale (0 -10): 0 - Related Data Previous Rx's Medication Instructions Recorded Last Taken Type Aspirin EC [Halfprin EC] 81 mg PO QDAY #30 01/01/20 06/26/20 21:00 Rx ALPRAZolam [Xanax TAB] 0.5 mg PO BID #20 tablet 04/22/20 06/26/20 21:00 Rx Gabapentin 300 mg PO BID #60 cap 04/22/20 06/26/20 21:00 Rx Oxycodone HCl/Acetaminophen 1 each PO TID #21 tablet 04/22/20 06/26/20 10:00 Rx [Percocet 7.5/325 mg] QUEtiapine [SEROquel] 100 mg PO BID 30 Days #60 tablet 04/22/20 06/26/20 21:00 Rx Warfarin [Coumadin] 7.5 mg PO DAILY@1700 #30 tablet 04/22/20 06/26/20 17:00 Rx propranoloL [Inderal] 20 mg PO TID 30 Days #90 tablet 04/22/20 06/26/20 21:00 Rx Allergies Allergy/AdvReac Type Severity Reaction Status Date / Time acetaminophen [From Tylenol] Allergy Hives Verified 06/27/20 12:33 enoxaparin [From Lovenox] Allergy Rash Verified 06/27/20 12:33 garlic Allergy Unknown Verified 06/27/20 12:33 ibuprofen [From Motrin] Allergy Unknown Verified 06/27/20 12:33 oxycodone [From Percocet] Allergy Itching Verified 06/27/20 12:33 peanut oil Allergy Unknown Verified 06/27/20 12:33 Penicillins Allergy Unknown Verified 06/27/20 12:33 Heart Score - HEART Score History: Slightly suspicious EKG: Normal Age: < 45 Risk factors: 1-2 risk factors Troponin: < normal limit HEART Score: 1 - EKG Read Time Time EKG Completed: 09:56 EKG Read Time: 10:00 ED Review of Systems ROS: Stated complaint: CHEST PAIN/ SEIZURES/ SWOLLEN LEGS Other details as noted in HPI Comment: All other systems reviewed and negative ED Past Medical Hx - Past Medical History Previous Medical History?: Yes Hx Hypertension: Yes Hx Heart Attack/AMI: (normal stress 10-31-16, normal perfusion scan May 2017) Hx Congestive Heart Failure: No Hx Diabetes: No Hx Deep Vein Thrombosis: Yes Hx Pulmonary Embolism: Yes Hx GERD: Yes Hx Sickle Cell Disease: No Hx Seizures: Yes Hx Psychiatric Treatment: Yes (anxiety) Hx Asthma: No Hx COPD: No Hx Tuberculosis: No Hx HIV: No Additional medical history: pericarditis, pt states hyperthyroidism, thyroid storm, PE x2, (R lung 05/2016, L lung 01/2017--on coumadin), R leg DVT 03/2017, Graves Disease, heart murmur, aortic dissection - Surgical History Past Surgical History?: Yes Hx Coronary Stent: Yes ("multiple stents") Hx Pacemaker: No Hx Internal Defibrillator: No Additional Surgical History: Left arm surgery 02/2017, Right knee, Rt leg. 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, Alaina Filter - Social History Smoking Status: Current Every Day Smoker (1/30 pack/day) Substance Use Type: None (Denies illicit drug use) - Medications Home Medications: Home Medications Medication Instructions Recorded Confirmed Last Taken Type Aspirin EC [Halfprin EC] 81 mg PO QDAY #30 01/01/20 06/27/20 06/26/20 21:00 Rx ALPRAZolam [Xanax TAB] 0.5 mg PO BID #20 tablet 04/22/20 06/27/20 06/26/20 21:00 Rx Gabapentin 300 mg PO BID #60 cap 04/22/20 06/27/20 06/26/20 21:00 Rx Oxycodone HCl/Acetaminophen 1 each PO TID #21 tablet 04/22/20 06/27/20 06/26/20 10:00 Rx [Percocet 7.5/325 mg] QUEtiapine [SEROquel] 100 mg PO BID 30 Days #60 tablet 04/22/20 06/27/20 06/26/20 21:00 Rx Warfarin [Coumadin] 7.5 mg PO DAILY@1700 #30 tablet 04/22/20 06/26/20 17:00 Rx propranoloL [Inderal] 20 mg PO TID 30 Days #90 tablet 04/22/20 06/26/20 21:00 Rx ED Physical Exam - General Limitations: No Limitations General appearance: alert, in no apparent distress - Head Head exam: Present: atraumatic, normocephalic - Eye Eye exam: Present: normal appearance - ENT ENT exam: Present: mucous membranes moist - Neck Neck exam: Present: normal inspection - Respiratory Respiratory exam: Present: normal lung sounds bilaterally. Absent: respiratory distress, wheezes, rales, rhonchi, stridor - Cardiovascular Cardiovascular Exam: Present: regular rate, normal rhythm. Absent: bradycardia, tachycardia, systolic murmur, diastolic murmur, rubs, gallop - GI/Abdominal GI/Abdominal exam: Present: soft, normal bowel sounds - Extremities Exam Extremities exam: Present: normal inspection - Back Exam Back exam: Present: normal inspection - Neurological Exam Neurological exam: Present: alert, oriented X3 - Psychiatric Psychiatric exam: Present: normal affect, normal mood - Skin Skin exam: Present: warm, dry, intact, normal color. Absent: rash ED Course Vital Signs 11/25/20 11/25/20 18:15 18:18 Temperature 97.9 F Pulse Rate 83 Respiratory 12 Rate Blood Pressure 127/73 [Left] O2 Sat by Pulse 99 99 Oximetry LEI score - Lei Score Age > 65: (0) No Aspirin use within the Past 7 Days: (0) No 3 or more CAD Risk Factors: (0) No 2 or more Angina events in past 24 hrs: (0) No Known CAD with more than 50% Stenosis: (0) No Elevated Cardiac Markers: (0) No ST Deviation Greater than 0.5mm: (0) No LEI Score: 0 ED Medical Decision Making - Lab Data Result diagrams: 11/25/20 10:25 11/25/20 17:46 Lab Results 11/25/20 11/25/20 11/25/20 Range/Units 10:25 10:26 17:46 WBC 7.1 (4.5-11.0) K/mm3 RBC 4.13 (3.65-5.03) M/mm3 Hgb 11.9 (10.1-14.3) gm/dl Hct 35.8 (30.3-42.9) % MCV 87 (79-97) fl MCH 29 (28-32) pg MCHC 33 (30-34) % RDW 23.9 H (13.2-15.2) % Plt Count 343 (140-440) K/mm3 Lymph % (Auto) 34.6 (13.4-35.0) % [place] % (Auto) 8.0 H (0.0-7.3) % Eos % (Auto) 4.5 H (0.0-4.3) % Baso % (Auto) 1.9 H (0.0-1.8) % Lymph # (Auto) 2.4 (1.2-5.4) K/mm3 [place] # (Auto) 0.6 (0.0-0.8) K/mm3 Eos # (Auto) 0.3 (0.0-0.4) K/mm3 Baso # (Auto) 0.1 (0.0-0.1) K/mm3 Seg Neutrophils % 51.0 (40.0-70.0) % Seg Neutrophils # 3.6 (1.8-7.7) K/mm3 PT 15.4 H (12.2-14.9) Sec. INR 1.17 H (0.87-1.13) APTT 27.5 (24.2-36.6) Sec. Sodium 138 (137-145) mmol/L Potassium 3.9 (3.6-5.0) mmol/L Chloride 104.4 (98-107) mmol/L Carbon Dioxide 20 L (22-30) mmol/L Anion Gap 18 mmol/L BUN 12 (7-17) mg/dL Creatinine 1.1 (0.6-1.2) mg/dL Estimated GFR > 60 ml/min BUN/Creatinine Ratio 11 % Glucose 95 (65-100) mg/dL Calcium 9.2 (8.4-10.2) mg/dL Total Bilirubin 0.20 (0.1-1.2) mg/dL AST 14 (5-40) units/L ALT 13 (7-56) units/L Alkaline Phosphatase 73 (35-129) units/L Troponin T (0.00-0.029) ng/mL Total Protein 7.5 (6.3-8.2) g/dL Albumin 3.8 L (3.9-5) g/dL Albumin/Globulin Ratio 1.0 % Urine Color (Yellow) Urine Turbidity (Clear) Urine pH (5.0-7.0) Ur Specific [place] (1.003-1.030) Urine Protein (Negative) mg/dL Urine Glucose (UA) (Negative) mg/dL Urine Ketones (Negative) mg/dL Urine Blood (Negative) Urine Nitrite (Negative) Urine Bilirubin (Negative) Urine Urobilinogen (<2.0) mg/dL Ur Leukocyte Esterase (Negative) Urine WBC (Auto) (0.0-6.0) /HPF Urine RBC (Auto) (0.0-6.0) /HPF U Epithel Cells (Auto) (0-13.0) /HPF Urine Bacteria (Auto) (Negative) /HPF Urine Mucus /HPF 11/25/20 11/25/20 Range/Units 17:46 Unknown WBC (4.5-11.0) K/mm3 RBC (3.65-5.03) M/mm3 Hgb (10.1-14.3) gm/dl Hct (30.3-42.9) % MCV (79-97) fl MCH (28-32) pg MCHC (30-34) % RDW (13.2-15.2) % Plt Count (140-440) K/mm3 Lymph % (Auto) (13.4-35.0) % [place] % (Auto) (0.0-7.3) % Eos % (Auto) (0.0-4.3) % Baso % (Auto) (0.0-1.8) % Lymph # (Auto) (1.2-5.4) K/mm3 [place] # (Auto) (0.0-0.8) K/mm3 Eos # (Auto) (0.0-0.4) K/mm3 Baso # (Auto) (0.0-0.1) K/mm3 Seg Neutrophils % (40.0-70.0) % Seg Neutrophils # (1.8-7.7) K/mm3 PT (12.2-14.9) Sec. INR (0.87-1.13) APTT (24.2-36.6) Sec. Sodium (137-145) mmol/L Potassium (3.6-5.0) mmol/L Chloride (98-107) mmol/L Carbon Dioxide (22-30) mmol/L Anion Gap mmol/L BUN (7-17) mg/dL Creatinine (0.6-1.2) mg/dL Estimated GFR ml/min BUN/Creatinine Ratio % Glucose (65-100) mg/dL Calcium (8.4-10.2) mg/dL Total Bilirubin (0.1-1.2) mg/dL AST (5-40) units/L ALT (7-56) units/L Alkaline Phosphatase (35-129) units/L Troponin T < 0.010 (0.00-0.029) ng/mL Total Protein (6.3-8.2) g/dL Albumin (3.9-5) g/dL Albumin/Globulin Ratio % Urine Color Yellow (Yellow) Urine Turbidity Slightly-cloudy (Clear) Urine pH 5.0 (5.0-7.0) Ur Specific [place] 1.017 (1.003-1.030) Urine Protein 30 mg/dl (Negative) mg/dL Urine Glucose (UA) Neg (Negative) mg/dL Urine Ketones Neg (Negative) mg/dL Urine Blood Sm (Negative) Urine Nitrite Neg (Negative) Urine Bilirubin Neg (Negative) Urine Urobilinogen < 2.0 (<2.0) mg/dL Ur Leukocyte Esterase Neg (Negative) Urine WBC (Auto) 2.0 (0.0-6.0) /HPF Urine RBC (Auto) 5.0 (0.0-6.0) /HPF U Epithel Cells (Auto) 19.0 H (0-13.0) /HPF Urine Bacteria (Auto) 1+ (Negative) /HPF Urine Mucus Few /HPF - EKG Data -: EKG Interpreted by Il EKG shows normal: sinus rhythm, axis, intervals, QRS complexes, ST-T waves Rate: normal - EKG Data Interpretation: normal EKG - Radiology Data [facility] [address] [place] [address] Nuclear Medicine Report Signed Patient: FELIZ HERRING MR#: [id number] : 1980 Acct:[id number] Age/Sex: 40 / F ADM Date: 11/25/20 Loc: ED Attending Dr: Ordering Physician: OSORIO ORTEGA MD Date of Service: 11/25/20 Procedure(s): NM perfusion only lung scan Accession Number(s): [id number] cc: OSORIO ORTEGA MD NUCLEAR MEDICINE PERFUSION LUNG SCAN INDICATION / CLINICAL INFORMATION: HX OF PE. TECHNIQUE: 5.5 mCi of Tc-99m MAA were given by IV. COMPARISON: Chest radiograph dated 11/25/2020. FINDINGS: PERFUSION: No significant perfusion defects. ADDITIONAL FINDINGS: None. IMPRESSION: 1. Low probability for pulmonary embolism. Signer Name: Petr Alonso MD Signed: 11/25/2020 3:30 PM Workstation Name: [id number] DUPLEX DOPPLER LOWER EXTREMITY VEINS, BILATERAL INDICATION: leg swelling hx DVT. TECHNIQUE: Duplex doppler imaging was performed through the veins of both lower extremities using venous compression and other maneuvers. COMPARISON: 05/21/2020. FINDINGS: Right Common femoral vein: Negative. Right Superficial femoral vein: Negative. Right Popliteal vein: Negative. Right Calf veins: Negative. Left Common femoral vein: Negative. Left Superficial femoral vein: Negative. Left Popliteal vein: Chronic appearing nonocclusive DVT is again noted and not significantly changed. Left Calf veins: Negative. Additional findings: None. IMPRESSION: No evidence for acute DVT. Stable appearance of the chronic appearing nonocclusive DVT in the left popliteal vein. Signer Name: Evans Oconnor Jr, MD Signed: 11/25/2020 2:04 PM Workstation Name: RYAN - Medical Decision Making Patient is a 40-year-old [place] female who has very complex past medical history of lupus as well as multiple PEs and DVTs. Patient does have a Lawrence filter and is on Coumadin. Patient was subtherapeutic today with her INR. Patient with chronic complaints of chest pain syncope versus seizure and leg pain today. No evidence of any acute pulmonary embolus or DVT was found. Did discuss the case with Dr. Ramirez with the hospitalist and he states that the patient should double her Coumadin for the next 2 days and follow-up with her Coumadin clinic. Critical care attestation.: If time is entered above; I have spent that time in minutes in the direct care of this critically ill patient, excluding procedure time. ED Disposition Clinical Impression: Chronic pain, Subtherapeutic anticoagulation Disposition: 01 HOME / SELF CARE / HOMELESS Is pt being admited?: No Does the pt Need Aspirin: No Condition: Stable Additional Instructions: Please double your Coumadin dose for the next 2 days and follow-up with the Coumadin clinic on Monday Referrals: PRIMARY MD LUKE [Primary Care Provider] - 3-5 Days Time of Disposition: 19:08
[2020-11-25 18:26] LABS: Red Cell Distribution Width 23.9 % (13.2-15.2)
[2020-11-25 18:27] LABS: INR 1.17 (0.87-1.13)
[2020-11-25 18:28] LABS: Partial Thromboplastin Time 27.5 Sec. (24.2-36.6)
[2020-11-25 18:51] LABS: Bacteria,Urine 1+ /HPF (Negative); Bilirubin,Urine NEG (Negative); Blood,Urine SM (Negative); Color,Urine Yellow (Yellow); Mucus,Urine FEW /HPF; Urobilinogen,Urine < 2.0 mg/dL (<2.0)
[2020-11-25 19:51] VITALS: BP 135/73
== END 2020-11-25 19:30 | disposition home or self-care (01) ==
LOC: ED 09:35
DX: G89.29 Other chronic pain (principal); D68.8 Other specified coagulation defects; R07.89 Other chest pain; I10 Essential (primary) hypertension; K21.9 Gastro-esophageal reflux disease without esophagitis; F17.200 Nicotine dependence, unspecified, uncomplicated; F41.9 Anxiety disorder, unspecified; Z79.899 Other long term (current) drug therapy; Z88.6 Allergy status to analgesic agent; Z88.0 Allergy status to penicillin; Z91.010 Allergy to peanuts; Z88.5 Allergy status to narcotic agent; Z79.82 Long term (current) use of aspirin; Z79.01 Long term (current) use of anticoagulants
CPT/HCPCS: 36415; 71045; 78580; 80053; 81001; 84484; 85025; 85610; 85730; 93005; 93970; 96374; 99284; A9540; J2270

== ENCOUNTER 2020-12-16 11:36 | Emergency (ER) | payer SELFPAY ==
[2020-12-16 11:54] VITALS: BP 132/77
--- NOTE | 2020-12-16 13:26 | Emergency Department Report ---
ED General Adult HPI - General Chief complaint: Chest Pain Stated complaint: CHEST PAIN, BOTH LEGS SWELLING, FAINTING Time Seen by Provider: 12/16/20 12:14 Source: patient Mode of arrival: Ambulatory Limitations: No Limitations - History of Present Illness Initial comments: cc: "I just can not shake this chest pain." HPI: This is a 40 yo female with hx of HTN, hyperthyroidism, asthma, seizure, GERD, bipolar disorder, PE, anxiety, schizophrenia who presents with 2 weeks of chest pain and 4 weeks of lower extremity pain. Persistent sharp central chest pain. She has been experiencing "fainting spells". -: Gradual, week(s) (2 weels) Location: chest Consistency: constant Improves with: none Worsens with: none Associated Symptoms: other (lower extremity swelling) - Related Data Previous Rx's Medication Instructions Recorded Last Taken Type Aspirin EC [Halfprin EC] 81 mg PO QDAY #30 01/01/20 06/26/20 21:00 Rx ALPRAZolam [Xanax TAB] 0.5 mg PO BID #20 tablet 04/22/20 06/26/20 21:00 Rx Gabapentin 300 mg PO BID #60 cap 04/22/20 06/26/20 21:00 Rx Oxycodone HCl/Acetaminophen 1 each PO TID #21 tablet 04/22/20 06/26/20 10:00 Rx [Percocet 7.5/325 mg] QUEtiapine [SEROquel] 100 mg PO BID 30 Days #60 tablet 04/22/20 06/26/20 21:00 Rx Warfarin [Coumadin] 7.5 mg PO DAILY@1700 #30 tablet 04/22/20 06/26/20 17:00 Rx propranoloL [Inderal] 20 mg PO TID 30 Days #90 tablet 04/22/20 06/26/20 21:00 Rx Allergies Allergy/AdvReac Type Severity Reaction Status Date / Time acetaminophen [From Tylenol] Allergy Hives Verified 12/16/20 11:52 enoxaparin [From Lovenox] Allergy Rash Verified 12/16/20 11:52 garlic Allergy Unknown Verified 12/16/20 11:52 ibuprofen [From Motrin] Allergy Unknown Verified 12/16/20 11:52 oxycodone [From Percocet] Allergy Itching Verified 12/16/20 11:52 peanut oil Allergy Unknown Verified 12/16/20 11:52 Penicillins Allergy Unknown Verified 12/16/20 11:52 ED Review of Systems ROS: Stated complaint: CHEST PAIN, BOTH LEGS SWELLING, FAINTING Other details as noted in HPI Comment: All other systems reviewed and negative Constitutional: denies: chills, fever, malaise Respiratory: denies: cough, shortness of breath Cardiovascular: chest pain, syncope Gastrointestinal: denies: abdominal pain, nausea ED Past Medical Hx - Past Medical History Hx Hypertension: Yes Hx Heart Attack/AMI: (normal stress 10-31-16, normal perfusion scan May 2017) Hx Congestive Heart Failure: No Hx Diabetes: No Hx Deep Vein Thrombosis: Yes Hx Pulmonary Embolism: Yes Hx GERD: Yes Hx Sickle Cell Disease: No Hx Seizures: Yes Hx Psychiatric Treatment: Yes (anxiety) Hx Asthma: No Hx COPD: No Hx Tuberculosis: No Hx HIV: No Additional medical history: pericarditis, pt states hyperthyroidism, thyroid sto rm, PE x2, (R lung 05/2016, L lung 01/2017--on coumadin), R leg DVT 03/2017, Graves Disease, heart murmur, aortic dissection - Surgical History Hx Coronary Stent: Yes ("multiple stents") Hx Pacemaker: No Hx Internal Defibrillator: No Additional Surgical History: Left arm surgery 02/2017, Right knee, Rt leg. 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, [place]a Filter - Social History Smoking Status: Current Every Day Smoker (1/30 pack/day) Substance Use Type: None (Denies illicit drug use) - Medications Home Medications: Home Medications Medication Instructions Recorded Confirmed Last Taken Type Aspirin EC [Halfprin EC] 81 mg PO QDAY #30 01/01/20 06/27/20 06/26/20 21:00 Rx ALPRAZolam [Xanax TAB] 0.5 mg PO BID #20 tablet 04/22/20 06/27/20 06/26/20 21:00 Rx Gabapentin 300 mg PO BID #60 cap 04/22/20 06/27/20 06/26/20 21:00 Rx Oxycodone HCl/Acetaminophen 1 each PO TID #21 tablet 04/22/20 06/27/20 06/26/20 10:00 Rx [Percocet 7.5/325 mg] QUEtiapine [SEROquel] 100 mg PO BID 30 Days #60 tablet 04/22/20 06/27/20 06/26/20 21:00 Rx Warfarin [Coumadin] 7.5 mg PO DAILY@1700 #30 tablet 04/22/20 06/26/20 17:00 Rx propranoloL [Inderal] 20 mg PO TID 30 Days #90 tablet 04/22/20 06/26/20 21:00 Rx ED Physical Exam - General Limitations: No Limitations General appearance: alert, in no apparent distress - Head Head exam: Present: atraumatic, normocephalic - Eye Eye exam: Present: normal appearance - ENT ENT exam: Present: mucous membranes moist - Neck Neck exam: Present: normal inspection, full ROM - Respiratory Respiratory exam: Present: normal lung sounds bilaterally. Absent: respiratory distress, wheezes, rales, rhonchi, stridor - Cardiovascular Cardiovascular Exam: Present: regular rate, normal rhythm, normal heart sounds. Absent: systolic murmur, diastolic murmur, rubs, gallop - GI/Abdominal GI/Abdominal exam: Present: soft, normal bowel sounds. Absent: distended, tenderness, guarding, rebound - Extremities Exam Extremities exam: Present: normal inspection - Neurological Exam Neurological exam: Present: alert, oriented X3 - Psychiatric Psychiatric exam: Present: normal affect, normal mood - Skin Skin exam: Present: warm, dry, intact, normal color. Absent: rash ED Course Vital Signs 12/16/20 11:52 Temperature 98.6 F Pulse Rate 87 Respiratory 20 Rate Blood Pressure 132/77 O2 Sat by Pulse 97 Oximetry ED Medical Decision Making - EKG Data -: EKG Interpreted by Mo EKG shows normal: sinus rhythm, axis, intervals, QRS complexes, ST-T waves Rate: normal - EKG Data Interpretation: normal EKG 12/16/20 13:29 EKG obtained 1157 EKG interpreted by me Normal sinus rhythm normal rate normal axis normal intervals no ST elevation no ST-T signs of ischemia normal EKG - Medical Decision Making Ms. Ryan is a 40-year-old female with extensive medical history including pulmonary embolism, DVT, lupus anticoagulant blood disorder seizure disorder, hypothyroidism, aortic thrombosis. Patient receives tramadol from her PCP according to her report. She has had recurrent persistent chest pain for several years. Unclear if patient is compliant with warfarin therapy. For the past year she has had subtherapeutic INR. She states that her Coumadin therapy is managed by her PCP at [facility]. Patient received tramadol Zofran in the emergency department. Patient has noncardiac chest pain. She has normal EKG. She has normal vital signs today. She has had recurrent syncope. She has persistent leg swelling. No emergent need for intervention during this encounter. Vital signs are stable vital signs are normal. Critical care attestation.: If time is entered above; I have spent that time in minutes in the direct care of this critically ill patient, excluding procedure time. ED Disposition Clinical Impression: Chest pain Disposition: HOME / SELF CARE / HOMELESS Is pt being admited?: No Does the pt Need Aspirin: No Condition: Stable Instructions: Nonspecific Chest Pain, Adult Referrals: PRIMARY CARE, [Primary Care Provider] - 3-5 Days
[2020-12-16] MEDS ORDERED: traMADol 50 MG TAB PO ONE (13:32)
[2020-12-16] MEDS ORDERED: ONDANSETRON 4 MG ODT TAB PO ONE (13:32)
--- NOTE | 2020-12-16 17:51 | Electrocardiograph Report ---
[facility] Test Date: 2020-12-16 Test Time: 11:57:57 Pat Name: FELIZ HERRING Department: Room: Gender: F Crm Specialist: TV : 1980 Requested By: JACKI ORTEGA Order Number: [id number] Reading MD: Chloé Canseco Measurements Intervals [place] Rate: 75 P: 38 NV: 169 QRS: 14 QRSD: 74 T: 43 QT: 399 QTc: 447 Interpretive Statements Sinus rhythm Low voltage, precordial leads Compared to ECG 11/25/2020 09:56:52 Low QRS voltage now present Electronically Signed On 12-16-2020 17:50:37 EDT by Chloé Canseco
== END 2020-12-16 13:45 | disposition home or self-care (01) ==
LOC: ED 11:36
DX: R07.9 Chest pain, unspecified (principal); I10 Essential (primary) hypertension; K21.9 Gastro-esophageal reflux disease without esophagitis; R56.9 Unspecified convulsions; F41.9 Anxiety disorder, unspecified; E05.91 Thyrotoxicosis, unspecified with thyrotoxic crisis or storm; R01.1 Cardiac murmur, unspecified; I31.9 Disease of pericardium, unspecified; Z98.890 Other specified postprocedural states; F17.290 Nicotine dependence, other tobacco product, uncomplicated; Z88.0 Allergy status to penicillin; Z88.5 Allergy status to narcotic agent; Z88.6 Allergy status to analgesic agent; Z88.9 Allergy status to unspecified drugs, medicaments and biological substances; Z91.010 Allergy to peanuts; Z91.018 Allergy to other foods
CPT/HCPCS: 93005; 99282; Q0162

== ENCOUNTER 2021-01-15 23:42 | Inpatient (IN) | payer SELFPAY ==
--- NOTE | 2021-01-16 | Event Note ---
ED Screening Note ED Screening Note: Patient is a 40-year-old female with a history of pulmonary embolism and aortic dissection She is currently on Coumadin therapy She reports that she is currently being worked up for a hypercoagulable disorder She is complaining of substernal chest pain that began 2 weeks ago She has associated leg swelling She denies any diaphoresis, radiation of the pain, fever, vomiting, cough, shortness of breath This initial assessment/diagnostic orders/clinical plan/treatment(s) is/are subject to change based on patients health status, clinical progression and re- assessment by fellow clinical providers in the ED. Further treatment and workup at subsequent clinical providers discretion. Patient/guardian urged not to elope from the ED as their condition may be serious if not clinically assessed and managed. Initial orders include: Chest pain protocol Main ED for MD salcedo
[2021-01-16 01:02] LABS: Basophils # (Auto) 0.2 K/mm3 (0.0-0.1); Basophils % (Auto) 2.4 % (0.0-1.8); Eosinophils # (Auto) 0.5 K/mm3 (0.0-0.4); Eosinophils % (Auto) 6.3 % (0.0-4.3); Hemoglobin 11.9 gm/dl (10.1-14.3); Lymphocytes # (Auto) 1.9 K/mm3 (1.2-5.4); Lymphocytes % (Auto) 25.1 % (13.4-35.0); Mean Corpuscular HGB Conc 31 % (30-34); Mean Corpuscular Volume 87 fl (79-97); Monocytes # (Auto) 0.5 K/mm3 (0.0-0.8); Monocytes % (Auto) 6.2 % (0.0-7.3); Platelet Count 288 K/mm3 (140-440); Red Blood Count 4.39 M/mm3 (3.65-5.03); Red Cell Distribution Width 19.2 % (13.2-15.2)
[2021-01-16 01:12] LABS: INR 1.05 (0.87-1.13)
[2021-01-16 01:13] LABS: Partial Thromboplastin Time 30.1 Sec. (24.2-36.6)
[2021-01-16 01:41] LABS: Alanine Aminotransferase 14 units/L (7-56); Albumin 4.2 g/dL (3.9-5); BUN/Creatinine Ratio 12; Blood Urea Nitrogen 15 mg/dL (7-17); Calcium 10.2 mg/dL (8.4-10.2); Hemolysis Index 44
--- NOTE | 2021-01-16 02:33 | XRay Report ---
CHEST 2 VIEWS INDICATION / CLINICAL INFORMATION: Chest Pain. COMPARISON: 11/25/20. FINDINGS: The patient is rotated slightly to the left. SUPPORT DEVICES: None. HEART / MEDIASTINUM: The heart size and pulmonary vasculature are normal. A stent graft in the ascend ing thoracic aorta is stable. LUNGS / PLEURA: Mild increased opacity of the right hemithorax compared to the left is probably relat ed to patient rotation. No abnormality is identified on the lateral view. No other abnormality is see n. No pneumothorax. ADDITIONAL FINDINGS: No significant additional findings. IMPRESSION: No acute findings. Signer Name: Paco Cassidy MD Signed: 01/16/2021 2:29 AM Workstation Name: [id number]
[2021-01-16] MEDS ORDERED: MORPHINE 4 MG/1 ML INJ ONE (02:40)
[2021-01-16] MEDS ORDERED: SODIUM CHLORIDE 0.9% 1000 ML 1,000 ML IV ONE (02:41)
[2021-01-16] MEDS ORDERED: ONDANSETRON 4 MG/2 ML INJ IV ONE (02:45)
[2021-01-16] MEDS ORDERED: MORPHINE 4 MG/1 ML INJ IV ONE ×2 (02:45→03:51)
--- NOTE | 2021-01-16 03:05 | Emergency Department Report ---
ED Chest Pain HPI - General Chief Complaint: Chest Pain Stated Complaint: chestpain PUI?: No Source: patient Mode of arrival: Ambulatory Limitations: No Limitations - History of Present Illness Initial Comments: Patient is a 40-year-old female with past medical history notable for pulmonary embolism here with complaint of chest pain. Patient reports that chest pain started about 2 weeks ago. She notes that she is also had leg swelling. She notes that she recently underwent a valve replacement surgery about few months ago. MD Complaint: chest pain Severity scale (0 -10): 9 - Related Data Home Medications Medication Instructions Recorded Confirmed Last Taken QUEtiapine [SEROquel] 100 mg PO QAM 01/16/21 01/16/21 01/15/21 Quetiapine Fumarate [SEROquel] 300 mg PO QHS 01/16/21 01/16/21 01/14/21 levETIRAcetam [Keppra TAB] 500 mg PO BID 01/16/21 01/16/21 01/15/21 traMADoL [Ultram] 100 mg PO TID 01/16/21 01/16/21 01/15/21 ALPRAZolam [Xanax TAB] 0.5 mg PO TID 01/18/21 01/18/21 01/17/21 Gabapentin [Neurontin] 300 mg PO TID 01/18/21 01/18/21 01/17/21 propranoloL [Inderal] 40 mg PO BID 01/18/21 01/18/21 01/17/21 Previous Rx's Medication Instructions Recorded Last Taken Type Aspirin EC [Halfprin EC] 81 mg PO QDAY #30 01/01/20 01/15/21 Rx Warfarin [Coumadin] 7.5 mg PO DAILY@1700 #30 tablet 04/22/20 01/15/21 Rx Allergies Allergy/AdvReac Type Severity Reaction Status Date / Time acetaminophen [From Tylenol] Allergy Hives Verified 12/16/20 11:52 enoxaparin [From Lovenox] Allergy Rash, Verified 01/18/21 13:51 fever, vomiting garlic Allergy Hives Verified 01/18/21 13:51 oxycodone [From Percocet] Allergy Itching, Verified 01/18/21 13:51 rash peanut oil Allergy Rash Verified 01/18/21 13:51 Penicillins Allergy hives, Verified 01/18/21 13:51 vomiting ibuprofen [From Motrin] AdvReac nausea/vomi Verified 01/18/21 13:51 ting Heart Score - HEART Score History: Moderately suspicious EKG: Normal Age: < 45 Risk factors: 1-2 risk factors Troponin: < normal limit HEART Score: 2 - EKG Read Time Time EKG Completed: 23:52 EKG Read Time: 00:00 ED Review of Systems ROS: Stated complaint: chestpain Other details as noted in HPI Comment: All other systems reviewed and negative Constitutional: denies: chills, fever Eyes: denies: eye pain ENT: denies: throat pain Respiratory: denies: cough, shortness of breath Cardiovascular: chest pain Endocrine: no symptoms reported Gastrointestinal: denies: abdominal pain, nausea, vomiting Genitourinary: denies: urgency, dysuria Musculoskeletal: denies: back pain Skin: denies: rash Neurological: denies: headache, weakness Psychiatric: denies: anxiety, depression Hematological/Lymphatic: denies: easy bleeding ED Past Medical Hx - Past Medical History Previous Medical History?: Yes Hx Hypertension: Yes Hx Heart Attack/AMI: (normal stress 10-31-16, normal perfusion scan May 2017) Hx Congestive Heart Failure: No Hx Diabetes: No Hx Deep Vein Thrombosis: Yes Hx Pulmonary Embolism: Yes Hx GERD: Yes Hx Sickle Cell Disease: No Hx Seizures: Yes Hx Psychiatric Treatment: Yes (anxiety) Hx Asthma: No Hx COPD: No Hx Tuberculosis: No Hx HIV: No Additional medical history: pericarditis, pt states hyperthyroidism, thyroid storm, PE x2, (R lung 05/2016, L lung 01/2017--on coumadin), R leg DVT 03/2017, G raves Disease, heart murmur, aortic dissection - Surgical History Past Surgical History?: Yes Hx Coronary Stent: Yes ("multiple stents") Hx Pacemaker: No Hx Internal Defibrillator: No Additional Surgical History: Left arm surgery 02/2017, Right knee, Rt leg. 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, [place] Filter - Social History Smoking Status: Current Every Day Smoker Substance Use Type: None - Medications Home Medications: Home Medications Medication Instructions Recorded Confirmed Last Taken Type Aspirin EC [Halfprin EC] 81 mg PO QDAY #30 01/01/20 01/16/21 01/15/21 Rx Warfarin [Coumadin] 7.5 mg PO DAILY@1700 #30 tablet 04/22/20 01/16/21 01/15/21 Rx QUEtiapine [SEROquel] 100 mg PO QAM 01/16/21 01/16/21 01/15/21 History Quetiapine Fumarate [SEROquel] 300 mg PO QHS 01/16/21 01/16/21 01/14/21 History levETIRAcetam [Keppra TAB] 500 mg PO BID 01/16/21 01/16/21 01/15/21 History traMADoL [Ultram] 100 mg PO TID 01/16/21 01/16/21 01/15/21 History ALPRAZolam [Xanax TAB] 0.5 mg PO TID 01/18/21 01/18/21 01/17/21 History Gabapentin [Neurontin] 300 mg PO TID 01/18/21 01/18/21 01/17/21 History propranoloL [Inderal] 40 mg PO BID 01/18/21 01/18/21 01/17/21 History ED Physical Exam - General Limitations: No Limitations General appearance: alert, in distress - Head Head exam: Present: atraumatic, normocephalic - Eye Eye exam: Present: normal appearance - ENT ENT exam: Present: mucous membranes moist - Neck Neck exam: Present: normal inspection - Respiratory Respiratory exam: Present: normal lung sounds bilaterally. Absent: respiratory distress - Cardiovascular Cardiovascular Exam: Present: regular rate, normal rhythm. Absent: systolic murmur, diastolic murmur, rubs, gallop - GI/Abdominal GI/Abdominal exam: Present: soft, normal bowel sounds - Rectal Rectal exam: Present: deferred - Extremities Exam Extremities exam: Present: pedal edema - Back Exam Back exam: Present: normal inspection - Neurological Exam Neurological exam: Present: alert - Psychiatric Psychiatric exam: Present: normal affect, normal mood - Skin Skin exam: Present: warm, dry, intact, normal color. Absent: rash ED Course Vital Signs 01/15/21 01/16/21 01/16/21 23:45 00:11 00:32 Temperature 98.0 F 98.0 F Pulse Rate 91 H 70 73 Respiratory 18 18 19 Rate Blood Pressure 140/70 116/55 Blood Pressure [Left] O2 Sat by Pulse 100 96 98 Oximetry 01/16/21 01/16/21 01/16/21 00:50 01:00 01:38 Temperature Pulse Rate 68 72 Respiratory 18 16 Rate Blood Pressure 130/75 139/74 Blood Pressure [Left] O2 Sat by Pulse 98 98 99 Oximetry 01/16/21 01/16/21 01/16/21 02:00 02:31 03:01 Temperature Pulse Rate 66 60 65 Respiratory 17 14 16 Rate Blood Pressure 139/70 118/68 135/78 Blood Pressure [Left] O2 Sat by Pulse 100 99 100 Oximetry 01/16/21 01/16/21 01/16/21 03:35 04:01 04:31 Temperature Pulse Rate 61 65 55 L Respiratory 15 16 15 Rate Blood Pressure 127/66 136/66 139/67 Blood Pressure [Left] O2 Sat by Pulse 98 100 98 Oximetry 01/16/21 01/16/21 01/16/21 05:01 06:01 07:01 Temperature Pulse Rate 62 59 L 50 L Respiratory 17 16 19 Rate Blood Pressure 140/66 147/76 147/76 Blood Pressure [Left] O2 Sat by Pulse 95 Oximetry 01/16/21 01/16/21 01/16/21 07:11 07:21 07:31 Temperature Pulse Rate 97 H 56 L 62 Respiratory 20 14 11 L Rate Blood Pressure 147/76 147/76 147/76 Blood Pressure [Left] O2 Sat by Pulse Oximetry 01/16/21 01/16/21 01/16/21 07:41 07:51 08:01 Temperature Pulse Rate 62 64 71 Respiratory 12 13 14 Rate Blood Pressure 147/76 147/76 147/76 Blood Pressure [Left] O2 Sat by Pulse Oximetry 01/16/21 01/16/21 08:22 08:23 Temperature 97.9 F 98.7 F Pulse Rate 76 59 L Respiratory 18 18 Rate Blood Pressure 149/94 Blood Pressure 147/76 [Left] O2 Sat by Pulse 97 99 Oximetry - Reevaluation(s) Reevaluation #1: Improved after pain meds - Central Line Placement Left IJ Consent Obtained: written consent Time Out Performed: Yes Patient Placed on Monitor/Pulse Ox: Yes Prep: mask, gown, gloves Central Line Prep: Chlorhexidine scrub Local Anesthesia Used: Lidocaine 1% Amount of Anesthesia Used (mls): 3 Ultrasound Used for Placement: Yes Central Line Lumen Inserted: triple Reason for Insertion: Emergency Venous Access Bloods Obtained for Lab: Yes Central Line Position: good blood return, all ports aspirated, flus, sutured in place with nyl Dressing Applied: Tegaderm, sterile gauze/tape Post Procedure X-Ray: tip of catheter in good p Patient Tolerated Procedure: well, no complications Complications: none GENOVEVA score - Genoveva Score Age > 65: (0) No Aspirin use within the Past 7 Days: (0) No 3 or more CAD Risk Factors: (0) No 2 or more Angina events in past 24 hrs: (0) No Known CAD with more than 50% Stenosis: (0) No Elevated Cardiac Markers: (0) No ST Deviation Greater than 0.5mm: (0) No GENOVEVA Score: 0 ED Medical Decision Making - Lab Data Result diagrams: 01/20/21 07:06 01/17/21 06:00 - EKG Data -: EKG Interpreted by Me EKG shows normal: sinus rhythm Rate: normal - EKG Data 01/16/21 03:07 rate is 87 - Radiology Data Radiology results: report reviewed - Medical Decision Making Patient is a 40-year-old female here with complaint of chest pain. Patient has had 2 weeks of chest pain as well as leg swelling. Differential includes pulmonary embolism, ACS, CHF exacerbation. Plan for full evaluation including labs, serial troponins, dimer, CTA chest, ultrasound of the lower extremities. Critical care attestation.: If time is entered above; I have spent that time in minutes in the direct care of this critically ill patient, excluding procedure time. ED Disposition Clinical Impression: Chest pain Disposition: ADMITTED INPATIENT Is pt being admited?: Yes Does the pt Need Aspirin: Yes Condition: Stable
--- NOTE | 2021-01-16 03:10 | XRay Report ---
CHEST 1 VIEW 01/16/2021 2:01 AM INDICATION / CLINICAL INFORMATION: CVL placement. COMPARISON: Earlier today at 1:36 AM. FINDINGS: SUPPORT DEVICES: There is a new left jugular CVL with the tip overlying the upper cavoatrial junction . HEART / MEDIASTINUM: Unchanged. LUNGS / PLEURA: No significant pulmonary or pleural abnormality. No pneumothorax. ADDITIONAL FINDINGS: No significant additional findings. IMPRESSION: New left jugular CVL without complication. Signer Name: Paco Cassidy MD Signed: 01/16/2021 3:06 AM Workstation Name: [id number]
--- NOTE | 2021-01-16 03:53 | Cat Scan Report ---
CTA CHEST WITH CONTRAST INDICATION / CLINICAL INFORMATION: Chest pain. TECHNIQUE: Axial CT images were obtained through the chest after injection of 100 cc Omnipaque 350 IV contrast. 3 plane MIP and/or 3D reconstructions were produced. All CT scans at this location are per formed using CT dose reduction for ALARA by means of automated exposure control. COMPARISON: 06/28/20. FINDINGS: PULMONARY ARTERIES: Good opacification bilaterally without intraluminal filling defect to suggest acu te PTE THORACIC AORTA: Endovascular stent graft in the descending thoracic aorta. No evidence of acute aorti c dissection or aneurysm. HEART: No significant abnormality. CORONARY ARTERY CALCIFICATION: None. MEDIASTINUM / MICKI: No significant abnormality. PLEURA: No pleural effusion. No pneumothorax. LUNGS: There is mild bibasilar dependent atelectasis. ADDITIONAL FINDINGS: None. UPPER ABDOMEN: No acute findings. SKELETAL STRUCTURES: No significant osseous abnormality. IMPRESSION: 1. No CT evidence for pulmonary embolism. 2. Endovascular stent graft in the descending thoracic aorta without acute aortic dissection. Signer Name: Paco Cassidy MD Signed: 01/16/2021 3:48 AM Workstation Name: [id number]
[2021-01-16] MEDS ORDERED: HEPARIN 10,000 UNITS/10 ML VIAL IV ONE (04:17)
[2021-01-16] MEDS ORDERED: HEPARIN 10,000 UNITS/10 ML VIAL IV PRN (04:17)
[2021-01-16] MEDS ORDERED: ACETAMINOPHEN 325 MG TAB PO PRN ×2 (04:25)
[2021-01-16] MEDS ORDERED: ONDANSETRON 4 MG/2 ML INJ IV PRN (04:25)
[2021-01-16] MEDS ORDERED: MORPHINE 4 MG/1 ML INJ IV PRN (04:25)
[2021-01-16] MEDS ORDERED: MORPHINE 2 MG/1 ML INJ IV PRN ×2 (04:25)
[2021-01-16] MEDS ORDERED: NITROGLYCERIN 0.4 MG TAB SUBL SL PRN (04:25)
[2021-01-16] MEDS ORDERED: MAGNESIUM HYDROXIDE (MOM) ORAL LIQD UDC PO PRN (04:25)
--- NOTE | 2021-01-16 04:52 | History and Physical Report ---
History of Present Illness Date of examination: 01/16/21 Date of admission: 01/16/2021 Chief complaint: Chest pain History of present illness: 40-year-old -Citizen Of [place] female with known history of pulmonary embolism, hypertension, history of aortic dissection and history of hypothyroidism in the past presenting to the emergency room complaining of chest pain. Chest pain has been intermittent and has been ongoing for about 2-weeks. Chest pain is substernal and radiates into the entire precordium. She denies any headache or dizziness and denies any diaphoresis. Denies any fever or chills, no nausea vomiting and no abdominal pain. Patient indicates that she has been having progressive lower extremity swelling more on the left lower extremity than the right. She denies any shortness of breath. Patient has been on Coumadin for anticoagulation for her history of pulmonary embolism and DVT. Work-up in the emergency room today, D-dimer was found to be 361. INR is 1.05 Chest x-ray unremarkable. CT angiogram of the chest reveals no evidence of pulmonary embolism, there is endovascular stent graft in the descending thoracic aorta without acute aortic dissection. Patient being admitted for chest pain work-up. Past History Past Medical History: acute GA (normal stress 10-31-16, normal perfusion scan May 2017)), DVT, GERD, hypertension, pulmonary embolism, seizures, other (History of anxiety, pericarditis, pt states hyperthyroidism, thyroid storm, PE x2, (R lung 05/2016, L lung 01/2017--on coumadin), R leg DVT 03/2017, Graves Disease, heart murmur, aortic dissection) Past Surgical History: PTCA, Other (Left arm surgery 02/2017, Right knee, Rt leg. 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, [place] Filter) Social history: smoking (Current daily smoker) Family history: no significant family history Medications and Allergies Allergies Allergy/AdvReac Type Severity Reaction Status Date / Time acetaminophen [From Tylenol] Allergy Hives Verified 12/16/20 11:52 enoxaparin [From Lovenox] Allergy Rash Verified 12/16/20 11:52 garlic Allergy Unknown Verified 12/16/20 11:52 ibuprofen [From Motrin] Allergy Unknown Verified 12/16/20 11:52 oxycodone [From Percocet] Allergy Itching Verified 12/16/20 11:52 peanut oil Allergy Unknown Verified 12/16/20 11:52 Penicillins Allergy Unknown Verified 12/16/20 11:52 Home Medications Medication Instructions Recorded Confirmed Last Taken Type Aspirin EC [Halfprin EC] 81 mg PO QDAY #30 01/01/20 06/27/20 06/26/20 21:00 Rx ALPRAZolam [Xanax TAB] 0.5 mg PO BID #20 tablet 04/22/20 06/27/20 06/26/20 21:00 Rx Gabapentin 300 mg PO BID #60 cap 04/22/20 06/27/20 06/26/20 21:00 Rx Oxycodone HCl/Acetaminophen 1 each PO TID #21 tablet 04/22/20 06/27/20 06/26/20 10:00 Rx [Percocet 7.5/325 mg] QUEtiapine [SEROquel] 100 mg PO BID 30 Days #60 tablet 04/22/20 06/27/20 06/26/20 21:00 Rx Warfarin [Coumadin] 7.5 mg PO DAILY@1700 #30 tablet 04/22/20 06/26/20 17:00 Rx propranoloL [Inderal] 20 mg PO TID 30 Days #90 tablet 04/22/20 06/26/20 21:00 Rx Active Meds: Active Medications Heparin Sodium (Porcine) (Heparin 10,000 Units/10 Ml Vial) 5,200 unit 40 unit/kg (5200 unit) IV Q6H PRN PRN Reason: Anti-Xa Assay < 0.1 units/ml Heparin Sodium/Sodium Chloride (Heparin/ 0.45% Nacl-25,000 Unit/500 Ml) 25,000 unit in 500 mls @ 38.646 mls/hr IV TITR ELLIOTT; Protocol Review of Systems Constitutional: no fever, no chills Ears, nose, mouth and throat: no nasal congestion, no sore throat Cardiovascular: chest pain, no orthopnea, no palpitations, no syncope Respiratory: no cough, no shortness of breath, no congestion Gastrointestinal: no abdominal pain, no nausea, no vomiting, no diarrhea Genitourinary Female: no pelvic pain, no flank pain, no dysuria, no hematuria Musculoskeletal: no neck pain, no low back pain Integumentary: no rash, no pruritis Neurological: no headaches, no confusion Psychiatric: no anxiety, no depression Endocrine: no polyphagia, no polydipsia, no polyuria, no nocturia Exam - Constitutional Vitals: Temp Pulse Resp BP Pulse Ox 98.0 F 61 15 127/66 98 01/16/21 00:11 01/16/21 03:35 01/16/21 03:35 01/16/21 03:35 01/16/21 03:35 General appearance: Present: no acute distress, well-nourished, obese - EENT Eyes: Present: PERRL, EOM intact. Absent: scleral icterus ENT: hearing intact, clear oral mucosa, dentition normal - Neck Neck: Present: supple, normal ROM - Respiratory Respiratory effort: normal Respiratory: bilateral: CTA - Cardiovascular Rhythm: regular Heart Sounds: Present: S1 & S2. Absent: gallop, systolic murmur, diastolic murmur, rub, click - Extremities Extremities: no ischemia, pulses intact, pulses symmetrical, No edema, normal temperature, normal color, Full ROM Peripheral Pulses: within normal limits - Abdominal General gastrointestinal: Present: soft, non-tender, non-distended, normal bowel sounds. Absent: mass - Integumentary Integumentary: Present: clear, warm, dry, normal turgor. Absent: rash - Musculoskeletal Musculoskeletal: strength equal bilaterally - Psychiatric Psychiatric: appropriate mood/affect, intact judgment & insight, memory intact, cooperative - Neurologic Neurologic: CNII-XII intact, no focal deficits, moves all extremities HEART Score - HEART Score History: Moderately suspicious EKG: Normal Age: < 45 Risk factors: 1-2 risk factors Troponin: Troponin T < 0.010 ng/mL (0.00-0.029) 01/16/21 00:48 Troponin: < normal limit HEART Score: 2 Results - Labs CBC & Chem 7: 01/16/21 00:48 01/16/21 00:48 Labs: Abnormal lab results 01/16/21 01/16/21 01/16/21 Range/Units 00:48 00:48 00:48 MCH 27 L (28-32) pg RDW 19.2 H (13.2-15.2) % Eos % (Auto) 6.3 H (0.0-4.3) % Baso % (Auto) 2.4 H (0.0-1.8) % Eos # (Auto) 0.5 H (0.0-0.4) K/mm3 Baso # (Auto) 0.2 H (0.0-0.1) K/mm3 D-Dimer 361.64 H (0-234) ng/mlDDU Sodium 134 L (137-145) mmol/L Potassium 5.1 H (3.6-5.0) mmol/L Carbon Dioxide 18 L (22-30) mmol/L Creatinine 1.3 H (0.6-1.2) mg/dL Total Protein 9.2 H (6.3-8.2) g/dL Assessment and Plan - Patient Problems (1) Chest pain Current Visit: No Status: Acute Plan to address problem: Etiology unclear. Patient has known history of aortic dissection, pulmonary embolism and history of coronary artery disease. We will check serial cardiac enzymes. Patient placed on daily aspirin, sublingual nitroglycerin and IV morphine as needed for chest pain. Consult placed to cardiology for evaluation. 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 (3) HTN (hypertension) Current Visit: No Status: Chronic Plan to address problem: We will resume routine antihypertensive medications and monitor vital signs closely. (4) Subtherapeutic anticoagulation Current Visit: No Status: Acute Plan to address problem: Patient has been on Coumadin for anticoagulation however INR is subtherapeutic. Patient has been started on IV heparin. (5) History of pulmonary embolism Current Visit: No Status: Chronic Plan to address problem: Patient on anticoagulation. CT angiogram today did not reveal any pulmonary embolism. (6) Full code status Current Visit: Yes Status: Acute Plan to address problem: Patient is full code.
--- NOTE | 2021-01-16 06:03 | Vascular Lab Report ---
DUPLEX DOPPLER LOWER EXTREMITY VEINS, BILATERAL INDICATION / CLINICAL INFORMATION: Bilateral leg swelling. Chest pain. TECHNIQUE: Duplex doppler imaging was performed through the veins of both lower extremities using venous debbie lily and other maneuvers. COMPARISON: None available. FINDINGS: RIGHT COMMON FEMORAL VEIN: Negative. RIGHT FEMORAL VEIN: Negative. RIGHT POPLITEAL VEIN: Negative. RIGHT CALF VEINS: Negative. LEFT COMMON FEMORAL VEIN: Negative. LEFT FEMORAL VEIN: Negative. LEFT POPLITEAL VEIN: Negative. LEFT CALF VEINS: Negative. ADDITIONAL FINDINGS: None. IMPRESSION: No sonographic evidence for DVT in either lower extremity. Signer Name: Paco Cassidy MD Signed: 01/16/2021 5:59 AM Workstation Name: [id number]
--- NOTE | 2021-01-16 08:53 | Event Note ---
Date: 01/16/21 Patient admitted in the early hours Patient has a history of recurrent pulmonary embolism and DVTs and also has endovascular graft in the thoracic aorta and prosthetic wall--aortic valve on Coumadin which is subtherapeutic. Patient started on IV heparin till the Coumadin becomes therapeutic Discussed with patient at length her reason for admission, diagnosis and prognosis and the discharge plans CTA chest No CT evidence for pulmonary embolism Endovascular stent graft in the descending thoracic aorta without acute aortic dissection Chest x-ray New left jugular central venous line without complication Chest x-ray no acute findings
[2021-01-16] MEDS: QUEtiapine 100 MG TAB PO SCH ×2 (09:19→21:27)
[2021-01-16] MEDS: ASPIRIN EC 81 MG TAB PO SCH (09:19)
[2021-01-16] MEDS: ALPRAZolam 0.5 MG TAB PO SCH ×2 (09:19→21:27)
[2021-01-16] MEDS: GABAPENTIN 300 MG CAP PO SCH ×2 (09:19→21:27)
--- NOTE | 2021-01-16 10:19 | Consultation ---
History of Present Illness Consult date: 01/16/21 History of present illness: Impression 2 week history of noncardiac type chest pain, uncertain etiology No acute findings by exam, troponin, NT-proBNP, or chest imaging h/o aortic dissection s/p repair, CTA negative Noncompliant with warfain, now on heparin until INR therapeutic Morbid obesity H/o cigarette use bipolar/schizophrenia Plan No evidence for acute cardiac decompensation Some providers have documented [place]/PTCA, I do not have any evidence of these records. No further recommendations except modify risk factors, weight loss, smoking cessation Can risk stratify symptoms with stress test if no other cause identified. Test can be done as outpt. Past History Past Medical History: acute [place] (normal stress 10-31-16, normal perfusion scan May 2017)), DVT, GERD, hypertension, pulmonary embolism, seizures, other (History of anxiety, pericarditis, pt states hyperthyroidism, thyroid storm, PE x2, (R lung 05/2016, L lung 01/2017--on coumadin), R leg DVT 03/2017, Graves Disease, heart murmur, aortic dissection) Past Surgical History: PTCA, Other (Left arm surgery 02/2017, Right knee, Rt leg. 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, [place] Filter) Social history: smoking (Current daily smoker) Family history: no significant family history Medications and Allergies Allergies Allergy/AdvReac Type Severity Reaction Status Date / Time acetaminophen [From Tylenol] Allergy Hives Verified 12/16/20 11:52 enoxaparin [From Lovenox] Allergy Rash Verified 12/16/20 11:52 garlic Allergy Unknown Verified 12/16/20 11:52 ibuprofen [From Motrin] Allergy Unknown Verified 12/16/20 11:52 oxycodone [From Percocet] Allergy Itching Verified 12/16/20 11:52 peanut oil Allergy Unknown Verified 12/16/20 11:52 Penicillins Allergy Unknown Verified 12/16/20 11:52 Home Medications Medication Instructions Recorded Confirmed Last Taken Type Aspirin EC [Halfprin EC] 81 mg PO QDAY #30 01/01/20 06/27/20 06/26/20 21:00 Rx ALPRAZolam [Xanax TAB] 0.5 mg PO BID #20 tablet 04/22/20 06/27/20 06/26/20 21:00 Rx Gabapentin 300 mg PO BID #60 cap 04/22/20 06/27/20 06/26/20 21:00 Rx Oxycodone HCl/Acetaminophen 1 each PO TID #21 tablet 04/22/20 06/27/20 06/26/20 10:00 Rx [Percocet 7.5/325 mg] QUEtiapine [SEROquel] 100 mg PO BID 30 Days #60 tablet 04/22/20 06/27/20 06/26/20 21:00 Rx Warfarin [Coumadin] 7.5 mg PO DAILY@1700 #30 tablet 04/22/20 06/26/20 17:00 Rx propranoloL [Inderal] 20 mg PO TID 30 Days #90 tablet 04/22/20 06/26/20 21:00 Rx Active Meds: Active Medications Alprazolam (Alprazolam 0.5 Mg Tab) 0.5 mg PO BID [facility] Last Admin: 01/16/21 09:19 Dose: 0.5 mg Documented by: Aspirin (Aspirin Ec 81 Mg Tab) 81 mg PO QDAY [facility] Last Admin: 01/16/21 09:19 Dose: 81 mg Documented by: Gabapentin (Gabapentin 300 Mg Cap) 300 mg PO BID [facility] Last Admin: 01/16/21 09:19 Dose: 300 mg Documented by: Heparin Sodium (Porcine) (Heparin 10,000 Units/10 Ml Vial) 5,200 unit 40 unit/kg (5200 unit) IV Q6H PRN PRN Reason: Anti-Xa Assay < 0.1 units/ml Heparin Sodium/Sodium Chloride (Heparin/ 0.45% Nacl-25,000 Unit/500 Ml) 25,000 unit in 500 mls @ 30 mls/hr IV TITR [facility]; Protocol Magnesium Hydroxide (Magnesium Hydroxide (Mom) Oral Liqd Udc) 30 ml PO Q4H PRN PRN Reason: Constipation Miscellaneous Medication (Oxycodone Hcl/Acetaminophen [Percocet 7.5/325 Mg]) 1 each PO TID [facility] Morphine Sulfate (Morphine 2 Mg/1 Ml Inj) 2 mg IV Q3H PRN PRN Reason: Pain, Moderate (4-6) Nitroglycerin (Nitroglycerin 0.4 Mg Tab Subl) 0.4 mg SL Q5M PRN PRN Reason: Chest Pain Ondansetron HCl (Ondansetron 4 Mg/2 Ml Inj) 4 mg IV Q8H PRN PRN Reason: Nausea And Vomiting Propranolol HCl (Propranolol 10 Mg Tab) 20 mg PO TID [facility] Quetiapine Fumarate (Quetiapine 100 Mg Tab) 100 mg PO BID [facility] Last Admin: 01/16/21 09:19 Dose: 100 mg Documented by: Sodium Chloride (Sodium Chloride 0.9% 10 Ml Flush Syringe) 10 ml IV BID [facility] Last Admin: 01/16/21 09:19 Dose: 10 ml Documented by: Sodium Chloride (Sodium Chloride 0.9% 10 Ml Flush Syringe) 10 ml IV PRN PRN PRN Reason: LINE FLUSH Sodium Chloride (Sodium Chloride 0.9% 10 Ml Flush Syringe) 10 ml IV PRN PRN PRN Reason: LINE FLUSH Tramadol HCl (Tramadol 50 Mg Tab) 50 mg PO Q6H PRN PRN Reason: Pain, Moderate (4-6) Warfarin Sodium (Warfarin 10 Mg Tab) 7.5 mg PO DAILY@1700 [facility]; Protocol Physical Examination Vital Signs Temp Pulse Resp BP Pulse Ox 98.0 F 91 H 18 140/70 100 01/15/21 23:45 01/15/21 23:45 01/15/21 23:45 01/15/21 23:45 01/15/21 23:45 General appearance: no acute distress HEENT: Positive: PERRL Neck: Positive: neck supple Cardiac: Positive: Reg Rate and Rhythm, S1/S2 Lungs: Positive: Normal Exam Neuro: Positive: Grossly Intact Abdomen: Positive: Soft. Negative: Pulsations/Bruits Extremities: Absent: edema Results 01/16/21 00:48 01/16/21 00:48 Cardiac Enzymes 01/16/21 Range/Units 00:48 AST 23 (5-40) units/L Coagulation 01/16/21 Range/Units 00:48 PT 14.9 (12.2-14.9) Sec. INR 1.05 (0.87-1.13) APTT 30.1 (24.2-36.6) Sec. CBC 01/16/21 Range/Units 00:48 WBC 7.6 (4.5-11.0) K/mm3 RBC 4.39 (3.65-5.03) M/mm3 Hgb 11.9 (10.1-14.3) gm/dl Hct 38.0 (30.3-42.9) % Plt Count 288 (140-440) K/mm3 Lymph # (Auto) 1.9 (1.2-5.4) K/mm3 [place] # (Auto) 0.5 (0.0-0.8) K/mm3 Eos # (Auto) 0.5 H (0.0-0.4) K/mm3 Baso # (Auto) 0.2 H (0.0-0.1) K/mm3 Comprehensive Metabolic Panel 01/16/21 Range/Units 00:48 Sodium 134 L (137-145) mmol/L Potassium 5.1 H (3.6-5.0) mmol/L Chloride 101.1 (98-107) mmol/L Carbon Dioxide 18 L (22-30) mmol/L BUN 15 (7-17) mg/dL Creatinine 1.3 H (0.6-1.2) mg/dL Glucose 72 (65-100) mg/dL Calcium 10.2 (8.4-10.2) mg/dL AST 23 (5-40) units/L ALT 14 (7-56) units/L Alkaline Phosphatase 96 (35-129) units/L Total Protein 9.2 H (6.3-8.2) g/dL Albumin 4.2 (3.9-5) g/dL
[2021-01-16] MEDS: MORPHINE 2 MG/1 ML INJ IV PRN ×3 (10:54→20:12)
[2021-01-16 11:17] LABS: Basophils # (Auto) 0.1 K/mm3 (0.0-0.1); Basophils % (Auto) 1.1 % (0.0-1.8); Eosinophils # (Auto) 0.6 K/mm3 (0.0-0.4); Eosinophils % (Auto) 7.3 % (0.0-4.3); Hematocrit 37.4 % (30.3-42.9); Hemoglobin 11.9 gm/dl (10.1-14.3); Lymphocytes # (Auto) 2.1 K/mm3 (1.2-5.4); Mean Corpuscular HGB Conc 32 % (30-34); Mean Corpuscular Volume 87 fl (79-97); Monocytes # (Auto) 0.8 K/mm3 (0.0-0.8); Monocytes % (Auto) 9.9 % (0.0-7.3); Platelet Count 299 K/mm3 (140-440); Red Blood Count 4.33 M/mm3 (3.65-5.03); Red Cell Distribution Width 19.2 % (13.2-15.2)
[2021-01-16 11:30] LABS: INR 1.06 (0.87-1.13); Partial Thromboplastin Time 28.1 Sec. (24.2-36.6)
[2021-01-16 11:41] LABS: BUN/Creatinine Ratio 10; Blood Urea Nitrogen 12 mg/dL (7-17); Calcium 9.3 mg/dL (8.4-10.2); Hemolysis Index 2
[2021-01-16 11:43] LABS: Creatine Kinase MB 2.1 ng/mL (0.0-4.0)
[2021-01-16] MEDS: HEPARIN/ 0.45% NACL DRIP 25,000 UNIT/500 ML BAG IV SCH ×2 (11:54→18:42)
[2021-01-16] MEDS ORDERED: NON-FORMULARY EACH (Oxycodone Hcl/Acetaminophen [Percocet 7.5/325 Mg] 1 EACH Tablet) PO SCH (14:00)
[2021-01-16] MEDS: PROPRANOLOL 10 MG TAB PO SCH ×2 (15:33→21:27)
[2021-01-16] MEDS: traMADol 50 MG TAB PO PRN (18:40)
[2021-01-16] MEDS ORDERED: oxyCODONE /ACETAMINOPHEN 5-325MG TAB PO PRN (18:44)
[2021-01-16] MEDS: WARFARIN 7.5 MG TAB PO SCH (18:52)
[2021-01-16 19:13] LABS: Creatine Kinase MB 2.2 ng/mL (0.0-4.0)
[2021-01-17] MEDS: MORPHINE 2 MG/1 ML INJ IV PRN ×6 (02:04→22:42)
[2021-01-17] MEDS: traMADol 50 MG TAB PO PRN ×3 (05:06→18:18)
[2021-01-17] MEDS: HEPARIN/ 0.45% NACL DRIP 25,000 UNIT/500 ML BAG IV SCH (05:06)
[2021-01-17 06:29] LABS: Basophils # (Auto) 0.1 K/mm3 (0.0-0.1); Eosinophils # (Auto) 0.8 K/mm3 (0.0-0.4); Eosinophils % (Auto) 11.1 % (0.0-4.3); Hematocrit 32.6 % (30.3-42.9); Lymphocytes # (Auto) 3.1 K/mm3 (1.2-5.4); Lymphocytes % (Auto) 40.6 % (13.4-35.0); Mean Corpuscular HGB Conc 31 % (30-34); Mean Corpuscular Volume 86 fl (79-97); Monocytes # (Auto) 0.6 K/mm3 (0.0-0.8); Monocytes % (Auto) 7.8 % (0.0-7.3); Platelet Count 264 K/mm3 (140-440); Red Blood Count 3.78 M/mm3 (3.65-5.03); Red Cell Distribution Width 18.7 % (13.2-15.2)
[2021-01-17] MEDS: PROPRANOLOL 10 MG TAB PO SCH ×3 (08:28→21:16)
[2021-01-17] MEDS ORDERED: ASPIRIN EC 325 MG TAB PO SCH (10:00)
[2021-01-17] MEDS: ALPRAZolam 0.5 MG TAB PO SCH ×2 (10:27→21:13)
[2021-01-17] MEDS: GABAPENTIN 300 MG CAP PO SCH ×2 (10:27→21:13)
[2021-01-17] MEDS: ASPIRIN EC 81 MG TAB PO SCH (10:28)
[2021-01-17] MEDS: QUEtiapine 100 MG TAB PO SCH ×2 (10:28→21:13)
[2021-01-17 14:15] LABS: INR 0.99 (0.87-1.13)
--- NOTE | 2021-01-17 16:33 | Progress Note ---
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 (3) HTN (hypertension) Current Visit: No Status: Chronic Plan to address problem: We will resume routine antihypertensive medications and monitor vital signs jordin sely. (4) Subtherapeutic anticoagulation Current Visit: No Status: Acute Plan to address problem: Patient has been on Coumadin for anticoagulation however INR is subtherapeutic. Patient has been started on IV heparin. (5) History of pulmonary embolism Current Visit: No Status: Chronic Plan to address problem: Patient on anticoagulation. CT angiogram today did not reveal any pulmonary embolism. (6) Full code status Current Visit: Yes Status: Acute Plan to address problem: Patient is full code. Subjective Date of service: 01/17/21 Principal diagnosis: Anticoagulation Interval history: 40-year-old -[place]i female with known history of pulmonary embolism, hypertension, history of aortic dissection and history of hypothyroidism in the past presenting to the emergency room complaining of chest pain. Chest pain has been intermittent and has been ongoing for about 2-weeks. Chest pain is substernal and radiates into the entire precordium. She denies any headache or dizziness and denies any diaphoresis. Denies any fever or chills, no nausea vomiting and no abdominal pain. Patient indicates that she has been having progressive lower extremity swelling more on the left lower extremity than the right. She denies any shortness of breath. Patient has been on Coumadin for anticoagulation for her history of pulmonary embolism and DVT. Work-up in the emergency room today, D-dimer was found to be 361. INR is 1.05 Chest x-ray unremarkable. CT angiogram of the chest reveals no evidence of pulmonary embolism, there is endovascular stent graft in the descending thoracic aorta without acute aortic dissection. Patient being admitted for chest pain work-up. 01/17/2021 Patient admitted for subtherapeutic INR Patient has prosthetic aortic valve, recurrent PEs and DVTs Patient on Coumadin but subtherapeutic now No shortness of breath Objective - Constitutional Vitals: Vital Signs - 12hr 01/17/21 01/17/21 01/17/21 08:28 09:11 10:00 Pulse Rate 68 62 Blood Pressure 115/69 115/69 O2 Sat by Pulse 97 98 Oximetry General appearance: Present: no acute distress, well-nourished - EENT Eyes: PERRL, EOM intact ENT: hearing intact, clear oral mucosa Ears: bilateral: normal - Neck Neck: supple, normal ROM - Respiratory Respiratory effort: normal Respiratory: bilateral: CTA - Breasts Breasts: normal - Cardiovascular Heart rate: 78 Rhythm: regular Heart Sounds: Present: S1 & S2. Absent: gallop, rub Extremities: pulses intact, No edema, normal color, Full ROM, abnormal Extremity abnormal: other - Gastrointestinal General gastrointestinal: Present: soft, non-tender, non-distended, normal bowel sounds - Genitourinary Female genitourinary: normal - Integumentary Integumentary: clear, warm, dry - Musculoskeletal Musculoskeletal: 1, strength equal bilaterally - Neurologic Neurologic: moves all extremities - Psychiatric Psychiatric: memory intact, appropriate mood/affect, intact judgment & insight - Labs CBC & Chem 7: 01/17/21 06:00 01/17/21 06:00 Labs: Abnormal lab results 01/16/21 01/16/21 01/17/21 Range/Units 17:59 17:59 06:00 Hgb 10.0 L (10.1-14.3) gm/dl MCH 27 L (28-32) pg RDW 18.7 H (13.2-15.2) % Lymph % (Auto) 40.6 H (13.4-35.0) % [place] % (Auto) 7.8 H (0.0-7.3) % Eos % (Auto) 11.1 H (0.0-4.3) % Eos # (Auto) 0.8 H (0.0-0.4) K/mm3 Seg Neutrophils % 39.5 L (40.0-70.0) % Heparin Anti-Xa Level 1.18 H (0.3-0.7) U.I./ml Creatinine (0.6-1.2) mg/dL Glucose (65-100) mg/dL Total Creatine Kinase 231 H (30-135) units/L 01/17/21 Range/Units 06:00 Hgb (10.1-14.3) gm/dl MCH (28-32) pg RDW (13.2-15.2) % Lymph % (Auto) (13.4-35.0) % [place] % (Auto) (0.0-7.3) % Eos % (Auto) (0.0-4.3) % Eos # (Auto) (0.0-0.4) K/mm3 Seg Neutrophils % (40.0-70.0) % Heparin Anti-Xa Level (0.3-0.7) U.I./ml Creatinine 1.4 H (0.6-1.2) mg/dL Glucose 128 H (65-100) mg/dL Total Creatine Kinase (30-135) units/L HEART Score - HEART Score EKG: Normal Age: < 45 Risk factors: 1-2 risk factors Troponin: Troponin T < 0.010 ng/mL (0.00-0.029) 01/16/21 17:59 Troponin: < normal limit
--- NOTE | 2021-01-17 17:15 | Progress Note ---
Subjective Date of service: 01/17/21 Principal diagnosis: Anticoagulation Interval history: No clinical cardiac change Impression 2 week history of noncardiac type chest pain, uncertain etiology No acute findings by exam, troponin, NT-proBNP, or chest imaging h/o aortic dissection s/p repair, CTA negative Noncompliant with warfain, now on heparin until INR therapeutic Morbid obesity H/o cigarette use bipolar/schizophrenia Plan No evidence for acute cardiac decompensation Some providers have documented [place]/PTCA, I do not have any evidence of these records. Nuclear stress on Monday Past History Past Medical History: acute [place] (normal stress 10-31-16, normal perfusion scan May 2017)), DVT, GERD, hypertension, pulmonary embolism, seizures, other (History of anxiety, pericarditis, pt states hyperthyroidism, thyroid storm, PE x2, (R lung 05/2016, L lung 01/2017--on coumadin), R leg DVT 03/2017, Graves Disease, heart murmur, aortic dissection) Past Surgical History: PTCA, Other (Left arm surgery 02/2017, Right knee, Rt leg. 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, [place] Filter) Social history: smoking (Current daily smoker) Family history: no significant family history Objective Vital Signs Temp Pulse Resp BP BP Pulse Ox 01/17/21 10:00 98 01/17/21 09:11 62 115/69 97 01/17/21 08:28 68 115/69 01/17/21 04:20 105/54 01/17/21 04:12 98.1 F 68 16 84/35 96 01/16/21 23:47 97.2 F L 67 16 91/54 94 01/16/21 19:40 98 01/16/21 19:38 98.8 F 77 18 104/59 93 - Physical Examination General: Appears Well HEENT: Positive: PERRL Neck: Positive: neck supple Cardiac: Positive: Reg Rate and Rhythm, S1/S2 Lungs: Positive: clear to auscultation Neuro: Positive: Grossly Intact Abdomen: Positive: Soft. Negative: Pulsations/Bruits Extremities: Absent: edema - Labs and Meds Cardiac Enzymes 01/16/21 Range/Units 17:59 CK-MB (CK-2) 2.2 (0.0-4.0) ng/mL Coagulation 01/17/21 Range/Units 13:43 PT 14.2 (12.2-14.9) Sec. INR 0.99 (0.87-1.13) CBC 01/17/21 Range/Units 06:00 WBC 7.6 (4.5-11.0) K/mm3 RBC 3.78 (3.65-5.03) M/mm3 Hgb 10.0 L (10.1-14.3) gm/dl Hct 32.6 (30.3-42.9) % Plt Count 264 (140-440) K/mm3 Lymph # (Auto) 3.1 (1.2-5.4) K/mm3 [place] # (Auto) 0.6 (0.0-0.8) K/mm3 Eos # (Auto) 0.8 H (0.0-0.4) K/mm3 Baso # (Auto) 0.1 (0.0-0.1) K/mm3 Comprehensive Metabolic Panel 01/17/21 Range/Units 06:00 Sodium 137 (137-145) mmol/L Potassium 4.3 (3.6-5.0) mmol/L Chloride 100.9 (98-107) mmol/L Carbon Dioxide 22 (22-30) mmol/L BUN 15 (7-17) mg/dL Creatinine 1.4 H (0.6-1.2) mg/dL Glucose 128 H (65-100) mg/dL Calcium 9.0 (8.4-10.2) mg/dL
[2021-01-17] MEDS: WARFARIN 7.5 MG TAB PO SCH (17:18)
[2021-01-18] MEDS: traMADol 50 MG TAB PO PRN ×4 (00:07→18:37)
[2021-01-18] MEDS: MORPHINE 2 MG/1 ML INJ IV PRN ×6 (01:52→22:42)
[2021-01-18] MEDS ORDERED: REGADENOSON 0.4 MG/5 ML INJ IV ONE (07:28)
[2021-01-18 07:40] LABS: Hematocrit 34.4 % (30.3-42.9); Hemoglobin 10.5 gm/dl (10.1-14.3)
[2021-01-18] MEDS: PROPRANOLOL 10 MG TAB PO SCH ×3 (08:27→22:41)
[2021-01-18] MEDS: ASPIRIN EC 81 MG TAB PO SCH (10:23)
[2021-01-18] MEDS: GABAPENTIN 300 MG CAP PO SCH ×2 (10:23→22:41)
[2021-01-18] MEDS: QUEtiapine 100 MG TAB PO SCH ×2 (10:23→22:42)
[2021-01-18] MEDS: ALPRAZolam 0.5 MG TAB PO SCH ×2 (10:23→22:41)
[2021-01-18 10:48] LABS: INR 0.96 (0.87-1.13)
--- NOTE | 2021-01-18 11:30 | Progress Note ---
Assessment and Plan Possibly cardiac chest pain Negative troponin x2 History of descending thoracic aortic dissection status post endovascular stent CTA this admission revealing no evidence of acute dissection History of DVT and pulmonary embolism Currently on IV heparin History of [place] filter insertion Patient is noncompliant with warfarin therapy Morbid obesity Tobacco abuse History of bipolar disorder and schizophrenia. Recommendations: Plan for pharmacological stress test in a.m. Patient advised not to have any caffeinated products today and stay n.p.o. after midnight. Transition to DOAC therapy upon discharge. Subjective Date of service: 01/18/21 Principal diagnosis: Anticoagulation Interval history: Patient is resting in bed, she denies any chest pain or shortness of breath. Telemetry revealing sinus rhythm. Patient ate this morning and had coffee at 3 AM, therefore pharmacological stress testing could not be performed today. Objective Vital Signs Temp Pulse Resp BP BP Pulse Ox 01/18/21 08:27 78 116/64 01/18/21 03:18 98.1 F 65 14 126/74 97 01/17/21 22:45 98.1 F 68 12 112/54 95 01/17/21 22:00 98 01/17/21 20:02 98.3 F 71 18 109/53 97 - Physical Examination General: Appears Well HEENT: Positive: PERRL Neck: Positive: neck supple Cardiac: Positive: Reg Rate and Rhythm Lungs: Positive: Normal Exam Neuro: Positive: Grossly Intact Abdomen: Positive: Soft. Negative: Pulsations/Bruits Extremities: Absent: edema - Labs and Meds Coagulation 01/17/21 01/18/21 Range/Units 13:43 07:00 PT 14.2 13.9 (12.2-14.9) Sec. INR 0.99 0.96 (0.87-1.13) CBC 01/18/21 Range/Units 06:54 Hgb 10.5 (10.1-14.3) gm/dl Hct 34.4 (30.3-42.9) % Plt Count 283 (140-440) K/mm3
[2021-01-18] MEDS: WARFARIN 7.5 MG TAB PO SCH (17:36)
[2021-01-19] MEDS: MORPHINE 2 MG/1 ML INJ IV PRN ×5 (03:45→20:08)
[2021-01-19] MEDS: HEPARIN/ 0.45% NACL DRIP 25,000 UNIT/500 ML BAG IV SCH (03:51)
[2021-01-19] MEDS: traMADol 50 MG TAB PO PRN ×3 (05:35→18:18)
--- NOTE | 2021-01-19 07:08 | Progress Note ---
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 (3) HTN (hypertension) Current Visit: No Status: Chronic Plan to address problem: We will resume routine antihypertensive medications and monitor vital signs jordin sely. (4) Subtherapeutic anticoagulation Current Visit: No Status: Acute Plan to address problem: Patient has been on Coumadin for anticoagulation however INR is subtherapeutic. Patient has been started on IV heparin. Cardiology consult and follow-up appreciated Agree with the plan for DOAC after stress test (5) History of pulmonary embolism Current Visit: No Status: Chronic Plan to address problem: Patient on anticoagulation. CT angiogram today did not reveal any pulmonary embolism. (6) Full code status Current Visit: Yes Status: Acute Plan to address problem: Patient is full code. Subjective Date of service: 01/19/21 Principal diagnosis: Anticoagulation Interval history: 40-year-old -[place] female with known history of pulmonary embolism, hypertension, history of aortic dissection and history of hypothyroidism in the past presenting to the emergency room complaining of chest pain. Chest pain has been intermittent and has been ongoing for about 2-weeks. Chest pain is substernal and radiates into the entire precordium. She denies any headache or dizziness and denies any diaphoresis. Denies any fever or chills, no nausea vomiting and no abdominal pain. Patient indicates that she has been having progressive lower extremity swelling more on the left lower extremity than the right. She denies any shortness of breath. Patient has been on Coumadin for anticoagulation for her history of pulmonary embolism and DVT. Work-up in the emergency room today, D-dimer was found to be 361. INR is 1.05 Chest x-ray unremarkable. CT angiogram of the chest reveals no evidence of pulmonary embolism, there is endovascular stent graft in the descending thoracic aorta without acute aortic dissection. Patient being admitted for chest pain work-up. 01/17/2021 Patient admitted for subtherapeutic INR Patient has prosthetic aortic valve, recurrent PEs and DVTs Patient on Coumadin but subtherapeutic now No shortness of breath 01/18/2021 Patient on IV heparin drip Coumadin subtherapeutic For stress test tomorrow Defer to cardiology regarding DOAC and discharge Patient insists being on warfarin We will discuss with cardiology regarding Eliquis and aspirin Objective - Constitutional Vitals: Vital Signs - 12hr 01/18/21 01/18/21 01/18/21 19:12 22:00 23:23 Temperature 98.2 F Pulse Rate 83 73 Respiratory 18 Rate Blood Pressure 117/72 123/67 O2 Sat by Pulse 95 98 97 Oximetry General appearance: Present: no acute distress, well-nourished - EENT Eyes: PERRL, EOM intact ENT: hearing intact, clear oral mucosa Ears: bilateral: normal - Neck Neck: supple, normal ROM - Respiratory Respiratory effort: normal Respiratory: bilateral: CTA - Breasts Breasts: normal - Cardiovascular Heart rate: 78 Rhythm: regular Heart Sounds: Present: S1 & S2. Absent: gallop, rub Extremities: pulses intact, No edema, normal color, Full ROM - Gastrointestinal General gastrointestinal: Present: soft, non-tender, non-distended, normal bowel sounds - Genitourinary Female genitourinary: normal - Integumentary Integumentary: clear, warm, dry - Musculoskeletal Musculoskeletal: 1, strength equal bilaterally - Neurologic Neurologic: moves all extremities - Psychiatric Psychiatric: memory intact, appropriate mood/affect, intact judgment & insight - Labs CBC & Chem 7: 01/18/21 06:54 01/17/21 06:00 HEART Score - HEART Score EKG: Normal Age: < 45 Risk factors: 1-2 risk factors Troponin: Troponin T < 0.010 ng/mL (0.00-0.029) 01/16/21 17:59 Troponin: < normal limit
--- NOTE | 2021-01-19 09:19 | Progress Note ---
Assessment and Plan Assessment and plan: Interval history: 40-year-old -[place] female with known history of pulmonary embolism, hypertension, history of aortic dissection and history of hypothyroidism in the past presenting to the emergency room complaining of chest pain. Chest pain has been intermittent and has been ongoing for about 2-weeks. Chest pain is substernal and radiates into the entire precordium. She denies any headache or dizziness and denies any diaphoresis. Denies any fever or chills, no nausea vo miting and no abdominal pain. Patient indicates that she has been having progressive lower extremity swelling more on the left lower extremity than the right. She denies any shortness of breath. Patient has been on Coumadin for anticoagulation for her history of pulmonary embolism and DVT. Work-up in the emergency room today, D-dimer was found to be 361. INR is 1.05 Chest x-ray unremarkable. CT angiogram of the chest reveals no evidence of pulmonary embolism, there is endovascular stent graft in the descending thoracic aorta without acute aortic dissection. Patient being admitted for chest pain work-up. Hospital course to date 01/17/2021 Patient admitted for subtherapeutic INR Patient has prosthetic aortic valve, recurrent PEs and DVTs Patient on Coumadin but subtherapeutic now No shortness of breath 01/18/2021 Patient on IV heparin drip Coumadin subtherapeutic For stress test tomorrow Defer to cardiology regarding DOAC and discharge Patient insists being on warfarin We will discuss with cardiology regarding Eliquis and aspirin 01/19/21: Gone for stress this AM. INR still remains subtherapeutic at 0.96. D/w pharmacy, will inc to 10 mg daily. Recheck in Am. 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 (3) HTN (hypertension) Current Visit: No Status: Chronic Plan to address problem: We will resume routine antihypertensive medications and monitor vital signs closely. (4) Subtherapeutic anticoagulation Current Visit: No Status: Acute Plan to address problem: Patient has been on Coumadin for anticoagulation however INR is subtherapeutic. Patient has been started on IV heparin. Cardiology consult and follow-up appreciated Agree with the plan for DOAC after stress test (5) History of pulmonary embolism Current Visit: No Status: Chronic Plan to address problem: Patient on anticoagulation. CT angiogram today did not reveal any pulmonary embolism. (6) Full code status Current Visit: Yes Status: Acute Plan to address problem: Patient is full code. Subjective Date of service: 01/19/21 Principal diagnosis: Anticoagulation History Interval history: Resting comfortably. No acute complaints. Leaving for stress. Hospitalist Physical - Physical exam Narrative exam: Physical Exam: VITAL SIGNS: Reviewed. GENERAL: The patient appears normally developed, Vital signs as documented. HEAD: No signs of head trauma. EYES: Pupils are equal. Extraocular motions intact. EARS: Hearing grossly intact. MOUTH: Oropharynx is normal. NECK: No adenopathy, no JVD. CHEST: Chest with clear breath sounds bilaterally. No wheezes, rales, or rhonchi. CARDIAC: Regular rate and rhythm. S1 and S2, without murmurs, gallops, or rubs. VASCULAR: No Edema. Peripheral pulses normal and equal in all extremities. ABDOMEN: Soft, non tender and non distended. No rebound or guarding, and no masses palpated. Bowel Sounds normal. MUSCULOSKELETAL: Good range of motion of all major joints. Extremities without clubbing, cyanosis or edema. NEUROLOGIC EXAM: Alert and oriented x 4. no focal sensory or strength deficits. PSYCHIATRIC: Mood normal. SKIN: detail exam as documented in skin assessment - Constitutional Vitals: Temp Pulse Resp BP Pulse Ox 98.2 F 73 18 123/67 97 01/18/21 19:12 01/18/21 23:23 01/18/21 19:12 01/18/21 23:23 01/18/21 23:23 General appearance: Present: no acute distress, well-nourished HEART Score - HEART Score EKG: Normal Age: < 45 Risk factors: 1-2 risk factors Troponin: Troponin T < 0.010 ng/mL (0.00-0.029) 01/16/21 17:59 Troponin: < normal limit Results - Labs CBC & Chem 7: 01/18/21 06:54 01/17/21 06:00 Labs: Laboratory Last Values WBC 7.6 K/mm3 (4.5-11.0) 01/17/21 06:00 RBC 3.78 M/mm3 (3.65-5.03) 01/17/21 06:00 Hgb 10.5 gm/dl (10.1-14.3) 01/18/21 06:54 Hct 34.4 % (30.3-42.9) 01/18/21 06:54 MCV 86 fl (79-97) 01/17/21 06:00 MCH 27 pg (28-32) L 01/17/21 06:00 MCHC 31 % (30-34) 01/17/21 06:00 RDW 18.7 % (13.2-15.2) H 01/17/21 06:00 Plt Count 283 K/mm3 (140-440) 01/18/21 06:54 Lymph % (Auto) 40.6 % (13.4-35.0) H 01/17/21 06:00 [place] % (Auto) 7.8 % (0.0-7.3) H 01/17/21 06:00 Eos % (Auto) 11.1 % (0.0-4.3) H 01/17/21 06:00 Baso % (Auto) 1.0 % (0.0-1.8) 01/17/21 06:00 Lymph # (Auto) 3.1 K/mm3 (1.2-5.4) 01/17/21 06:00 [place] # (Auto) 0.6 K/mm3 (0.0-0.8) 01/17/21 06:00 Eos # (Auto) 0.8 K/mm3 (0.0-0.4) H 01/17/21 06:00 Baso # (Auto) 0.1 K/mm3 (0.0-0.1) 01/17/21 06:00 Seg Neutrophils % 39.5 % (40.0-70.0) L 01/17/21 06:00 Seg Neutrophils # 3.0 K/mm3 (1.8-7.7) 01/17/21 06:00 PT 13.9 Sec. (12.2-14.9) 01/18/21 07:00 INR 0.96 (0.87-1.13) 01/18/21 07:00 APTT 28.1 Sec. (24.2-36.6) 01/16/21 10:24 D-Dimer 361.64 ng/mlDDU (0-234) H 01/16/21 00:48 Heparin Anti-Xa Level 0.36 U.I./ml (0.3-0.7) 01/18/21 06:54 Sodium 137 mmol/L (137-145) 01/17/21 06:00 Potassium 4.3 mmol/L (3.6-5.0) 01/17/21 06:00 Chloride 100.9 mmol/L (98-107) 01/17/21 06:00 Carbon Dioxide 22 mmol/L (22-30) 01/17/21 06:00 Anion Gap 18 mmol/L 01/17/21 06:00 BUN 15 mg/dL (7-17) 01/17/21 06:00 Creatinine 1.4 mg/dL (0.6-1.2) H 01/17/21 06:00 Estimated GFR 50 ml/min 01/17/21 06:00 BUN/Creatinine Ratio 11 % 01/17/21 06:00 Glucose 128 mg/dL (65-100) H 01/17/21 06:00 Calcium 9.0 mg/dL (8.4-10.2) 01/17/21 06:00 Total Bilirubin 0.20 mg/dL (0.1-1.2) 01/16/21 00:48 AST 23 units/L (5-40) 01/16/21 00:48 ALT 14 units/L (7-56) 01/16/21 00:48 Alkaline Phosphatase 96 units/L (35-129) 01/16/21 00:48 Total Creatine Kinase 231 units/L (30-135) H 01/16/21 17:59 CK-MB (CK-2) 2.2 ng/mL (0.0-4.0) 01/16/21 17:59 CK-MB (CK-2) Rel Index 0.9 (0-4) 01/16/21 17:59 Troponin T < 0.010 ng/mL (0.00-0.029) 01/16/21 17:59 NT-Pro-B Natriuret Pep 16.76 pg/mL (0-450) 01/16/21 00:48 Total Protein 9.2 g/dL (6.3-8.2) H 01/16/21 00:48 Albumin 4.2 g/dL (3.9-5) 01/16/21 00:48 Albumin/Globulin Ratio 0.8 % 01/16/21 00:48 HCG, Qual Negative (Negative) 01/16/21 00:48 Rojas/IV: Voiding Method Toilet Active Medications - Current Medications Current Medications: Generic Name Dose Route Start Last Admin Trade Name Freq PRN Reason Stop Dose Admin Alprazolam 0.5 mg 01/16/21 10:00 01/18/21 22:41 Alprazolam 0.5 Mg Tab PO 0.5 mg BID ELLIOTT Administration Aspirin 81 mg 01/16/21 10:00 01/18/21 10:23 Aspirin Ec 81 Mg Tab PO 81 mg QDAY ELLIOTT Administration Gabapentin 300 mg 01/16/21 10:00 01/18/21 22:41 Gabapentin 300 Mg Cap PO 300 mg BID ELLIOTT Administration Heparin Sodium (Porcine) 5,200 unit 01/16/21 04:17 Heparin 10,000 Units/10 Ml Vial 40 unit/kg (5200 unit) IV Q6H PRN Anti-Xa Assay < 0.1 units/ml Heparin Sodium/Sodium Chloride 25,000 unit in 500 mls @ 30 mls/hr 01/16/21 05:00 01/19/21 03:58 Heparin/ 0.45% Nacl-25,000 Unit/500 Ml IV 1,250 units/hr TITR ELLIOTT 25 mls/hr Titration Protocol 1,500 UNITS/HR Magnesium Hydroxide 30 ml 01/16/21 04:25 Magnesium Hydroxide (Mom) Oral Liqd Udc PO Q4H PRN Constipation Morphine Sulfate 2 mg 01/16/21 09:31 01/19/21 07:54 Morphine 2 Mg/1 Ml Inj IV 2 mg Q3H PRN Administration Pain, Moderate (4-6) Nitroglycerin 0.4 mg 01/16/21 04:25 Nitroglycerin 0.4 Mg Tab Subl SL Q5M PRN Chest Pain Ondansetron HCl 4 mg 01/16/21 04:25 Ondansetron 4 Mg/2 Ml Inj IV Q8H PRN Nausea And Vomiting Oxycodone/Acetaminophen 1 tab 01/16/21 18:44 Oxycodone /Acetaminophen 5-325mg Tab PO Q4H PRN Pain, Moderate (4-6) Propranolol HCl 20 mg 01/16/21 14:00 01/18/21 22:41 Propranolol 10 Mg Tab PO 20 mg TID ELLIOTT Administration Quetiapine Fumarate 100 mg 01/16/21 10:00 01/18/21 22:42 Quetiapine 100 Mg Tab PO 100 mg BID ELLIOTT Administration Sodium Chloride 10 ml 01/16/21 10:00 01/18/21 23:37 Sodium Chloride 0.9% 10 Ml Flush Syringe IV Not Given BID ELLIOTT Sodium Chloride 10 ml 01/16/21 04:25 Sodium Chloride 0.9% 10 Ml Flush Syringe IV PRN PRN LINE FLUSH Sodium Chloride 10 ml 01/16/21 04:25 Sodium Chloride 0.9% 10 Ml Flush Syringe IV PRN PRN LINE FLUSH Tramadol HCl 50 mg 01/16/21 04:25 01/19/21 05:35 Tramadol 50 Mg Tab PO 50 mg Q6H PRN Administration Pain, Moderate (4-6) Warfarin Sodium 7.5 mg 01/16/21 17:00 01/18/21 17:36 Warfarin 7.5 Mg Tab PO 7.5 mg DAILY@1700 ELLIOTT Administration Protocol Nutrition/Malnutrition Assess - Dietary Evaluation Nutrition/Malnutrition Findings: Nutrition Notes Start: 01/18/21 12:34 Freq: Status: Active Protocol: Document 01/18/21 12:34 JAMES (Rec: 01/18/21 12:55 JAMES [email or web address]) Nutrition Notes Initial or Follow up Assessment Current Diagnosis Hypertension Other Pertinent Diagnosis Chest pain, Subtherapeutic anticoagulation. Current Diet Cardiac Diet (since 01/16), NPO (from 01/19 00:01). Labs/Tests 01/17: Crea 1.4, Glu 128. Pertinent Medications 01/17: Warfarin, others nutritionally unremarkable. Height 5 ft 4 in Weight 128.82 kg [place] Body Weight (kg) 54.54 BMI 48.7 Weight Status Morbidly Obese Subjective/Other Information RD consult for Warfarin use. Pt on wafarine since 2016. Percent of energy/protein needs met: Prescribed Cardiac Diet provides for energy/protein needs (2,230 Kcal/85 g) during LOS. Burn Absent Trauma Absent GI Symptoms None Food Allergy No Skin Integrity/Comment Clear, warm, dry. Minimum of two criteria No #1 Nutrition Diagnosis No nutrition diagnosis at this time Comments: Pt on wafarine since 2017, according to progress notes. Is patient on ventilator? No Is Patient Ambulatory and/or Out of Bed Yes REE-([facility]-ambulatory/OOB) [ [id number] [id number]] Calculation Used for Recommendations [facility] Additional Notes Protein: 1-1.2 g/Kg; 55-66 g/ day (from IBW + critical care) . Fluids: 1 ml/Kcal, or as per MD. Nutrition Intervention Change Diet Order: Resume Cardiac Diet after NPO, as per MD. Goal #1 Maintain body weight within +/ -3% of admission BWt during LOS. Goal #2 Reach and maintain acceptable chemistry lab values during LOS. Follow-Up By: 01/26/21 Additional Comments Continue monitoring food tolerance, %PO intake of meals , Hydration, and BM.
[2021-01-19] MEDS: ALPRAZolam 0.5 MG TAB PO SCH ×2 (10:49→21:43)
[2021-01-19] MEDS: GABAPENTIN 300 MG CAP PO SCH ×2 (10:50→21:43)
[2021-01-19] MEDS: ASPIRIN EC 81 MG TAB PO SCH (10:50)
[2021-01-19] MEDS: PROPRANOLOL 10 MG TAB PO SCH ×3 (10:50→20:09)
[2021-01-19] MEDS: QUEtiapine 100 MG TAB PO SCH ×2 (10:50→21:43)
[2021-01-19 11:20] LABS: INR 0.95 (0.87-1.13)
--- NOTE | 2021-01-19 13:38 | Nuclear Medicine Report ---
APPROVED REPORT Exam: Nuclear Stress Test Indication: Chest pain Patient Location: [address] [place] [address] Room #: [id number] Ht: 5 ft 4 in Wt: 253 lbs BSA: 2.16 m2 BMI: 43.42 Rhythm: NSR Stress Test Details Stress Test: Pharmacologic stress testing performed using 0.4 mg of regadenoson per 5 mL given IV over 10 seconds. Reason for pharmacologic stress test: physical limitation. HR Resting HR: 65 bpm Max HR Achieved: 85 bpm Max Heart Rate (APMHR): 180 bpm Target HR (85% APMHR): 153 bpm % of APMHR: 47 Recovery HR: 70 bpm HR response to stress: Normal HR response to stress BP Resting BP: 104/59 mmHg Max BP: 123/65 mmHg Recovery BP: 112/60 mmHg BP response to stress: Normal blood pressure response to stress. ECG Resting ECG: Sinus Rhythm Stress ECG: Sinus Rhythm ST Change: None Arrhythmia: None Recovery ECG: Sinus Rhythm Recovery ST Change: None Recovery Arrhythmia: None Clinical Reason for Termination: Completed protocol Stress Symptoms: None NM EXAM: Myocardial Perfusion REST/STRESS Imaging Protocol: Rest Tc-99m/Stress Tc-99m 1 day Resting Data Rest SPECT myocardial perfusion imaging was performed in supine position 45 minutes following the intravenous injection of 10 mCi of Tc-99m Myoview. Time of rest injection: 0700 Date: 01/19/2021 Pharmacologic Stress Pharmacologic stress test was performed by injecting Regadenoson 0.4 mg IV push followed by the intravenous injection of 28 mCi of Tc-99m Tetrofosmin. Time of stress injection: 0910 Date: 01/19/2021 Gated Stress SPECT was performed 30 minutes after stress injection. The images were gated to evaluate regional wall motion and calculate left ventricular ejection fraction. Study Quality Study: Fair Artifact: Mild Breast artifact Lung Uptake: Normal Study Data Post stress, the left ventricular ejection was >70%.. TID = 0.81. Perfusion Wall Motion Normal left ventricular size and function with no regional wall motion abnormalities. Nuclear Conclusion ECG Findings: negative for ischemia Clinical Findings: negative for ischemia Nuclear Findings: negative for ischemia Exercise Capacity: not assessed Left Ventricular Function: normal Risk Study: low Post stress, the left ventricular ejection was >70%.. No prior study available for comparison.
--- NOTE | 2021-01-19 14:14 | Progress Note ---
Assessment and Plan Chest pain Negative troponin x2 normal perfusion stress thallium test History of descending thoracic aortic dissection status post endovascular stent CTA this admission revealing no evidence of acute dissection History of DVT and pulmonary embolism History of [place] filter insertion Currently on warfarin. Patient is noncompliant with warfarin therapy Morbid obesity Tobacco abuse History of bipolar disorder and schizophrenia. Recommendations: Transition to DOAC therapy upon discharge. Otherwise, no further cardiac workup indicated. Conservative cardiac management. Subjective Date of service: 01/19/21 Principal diagnosis: Anticoagulation Interval history: Patient underwent a thallium stress test today. Objective Vital Signs Temp Pulse Resp BP Pulse Ox 01/19/21 09:26 99 01/19/21 09:19 122/68 01/19/21 09:17 113/59 01/19/21 09:16 122/60 01/19/21 09:14 104/65 01/19/21 09:12 112/65 01/19/21 09:08 123/60 01/19/21 08:56 112/60 01/18/21 23:23 73 123/67 97 01/18/21 22:00 98 01/18/21 19:12 98.2 F 83 18 117/72 95 01/18/21 14:17 78 116/64 - Physical Examination General: No Apparent Distress HEENT: Positive: PERRL Neck: Positive: neck supple Cardiac: Positive: Reg Rate and Rhythm Lungs: Positive: Decreased Breath Sounds Neuro: Positive: Grossly Intact Extremities: Absent: edema - Labs and Meds Coagulation 01/19/21 Range/Units 10:38 PT 13.7 (12.2-14.9) Sec. INR 0.95 (0.87-1.13)
[2021-01-19] MEDS ORDERED: WARFARIN 10 MG TAB PO SCH (17:00)
[2021-01-20] MEDS: MORPHINE 2 MG/1 ML INJ IV PRN ×6 (00:21→21:12)
[2021-01-20] MEDS: traMADol 50 MG TAB PO PRN ×3 (02:26→23:44)
[2021-01-20] MEDS: HEPARIN/ 0.45% NACL DRIP 25,000 UNIT/500 ML BAG IV SCH (06:05)
[2021-01-20 07:38] LABS: Hematocrit 31.2 % (30.3-42.9); Hemoglobin 9.7 gm/dl (10.1-14.3)
[2021-01-20 07:39] LABS: Platelet Count 86.6 K/mm3 (140-440)
[2021-01-20] MEDS: PROPRANOLOL 10 MG TAB PO SCH ×3 (08:57→21:12)
[2021-01-20] MEDS: GABAPENTIN 300 MG CAP PO SCH ×2 (09:29→21:12)
[2021-01-20] MEDS: ALPRAZolam 0.5 MG TAB PO SCH ×2 (09:29→21:11)
[2021-01-20] MEDS: QUEtiapine 100 MG TAB PO SCH ×2 (09:30→21:12)
--- NOTE | 2021-01-20 12:08 | Progress Note ---
Assessment and Plan Possibly cardiac chest pain Negative troponin x2 Normal stress test this admission. History of descending thoracic aortic dissection status post endovascular stent CTA this admission revealing no evidence of acute dissection History of DVT and pulmonary embolism Currently on IV heparin History of [place] filter insertion Patient is noncompliant with warfarin therapy Morbid obesity Tobacco abuse History of bipolar disorder and schizophrenia. Recommendations: Continue IV heparin and warfarin. Target INR greater than 2. No further inpatient recommendation. Subjective Date of service: 01/20/21 Principal diagnosis: Anticoagulation Interval history: Patient denies any chest pain or shortness of breath. No events recorded on telemetry. Patient continues to be on IV heparin. Objective Vital Signs Temp Pulse Pulse Resp BP BP Pulse Ox 01/20/21 08:11 98.3 F 84 18 104/61 94 01/20/21 07:54 18 98 01/20/21 04:45 99.6 F 86 20 107/50 95 01/19/21 23:48 98.6 F 82 20 120/55 94 01/19/21 22:00 86 80 17 99 01/19/21 20:09 85 111/64 01/19/21 20:00 98.7 F 85 111/64 01/19/21 15:17 98/59 01/19/21 15:16 98.3 F 77 20 98/54 95 01/19/21 12:28 98.3 F 77 20 107/61 95 - Physical Examination General: No Apparent Distress HEENT: Positive: PERRL Neck: Positive: neck supple Cardiac: Positive: Reg Rate and Rhythm Lungs: Positive: Normal Exam Neuro: Positive: Grossly Intact Abdomen: Positive: Soft. Negative: Pulsations/Bruits Extremities: Absent: edema - Labs and Meds CBC 01/20/21 Range/Units 07:06 Hgb 9.7 L (10.1-14.3) gm/dl Hct 31.2 (30.3-42.9) % Plt Count 86.6 L (140-440) K/mm3
--- NOTE | 2021-01-20 12:11 | Progress Note ---
Assessment and Plan Assessment and plan: Interval history: 40-year-old -[place] female with known history of pulmonary embolism, hypertension, history of aortic dissection and history of hypothyroidism in the past presenting to the emergency room complaining of chest pain. Chest pain has been intermittent and has been ongoing for about 2-weeks. Chest pain is substernal and radiates into the entire precordium. She denies any headache or dizziness and denies any diaphoresis. Denies any fever or chills, no nausea vo miting and no abdominal pain. Patient indicates that she has been having progressive lower extremity swelling more on the left lower extremity than the right. She denies any shortness of breath. Patient has been on Coumadin for anticoagulation for her history of pulmonary embolism and DVT. Work-up in the emergency room today, D-dimer was found to be 361. INR is 1.05 Chest x-ray unremarkable. CT angiogram of the chest reveals no evidence of pulmonary embolism, there is endovascular stent graft in the descending thoracic aorta without acute aortic dissection. Patient being admitted for chest pain work-up. Hospital course to date 01/17/2021 Patient admitted for subtherapeutic INR Patient has prosthetic aortic valve, recurrent PEs and DVTs Patient on Coumadin but subtherapeutic now No shortness of breath 01/18/2021 Patient on IV heparin drip Coumadin subtherapeutic For stress test tomorrow Defer to cardiology regarding DOAC and discharge Patient insists being on warfarin We will discuss with cardiology regarding Eliquis and aspirin 01/19/21: Gone for stress this AM. INR still remains subtherapeutic at 0.96. D/w pharmacy, will inc to 10 mg daily. Recheck in Am. 01/20/21: Stress test negative. Subtherapeutic yesterday. Awaiting INR. Patient declined wanting to change from warfarin to xarelto. Will follow INR, can be d/c patient once therapeutic. Assessment and plan (1) Chest pain Current Visit: No Status: Acute Plan to address problem: Lexiscan negative. Possible discharge on higher dose of warfarin or Eliquis Warfarin currently at 10 mg po daily. May inc to 15 mg. 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 (3) HTN (hypertension) Current Visit: No Status: Chronic Plan to address problem: We will resume routine antihypertensive medications and monitor vital signs closely. (4) Subtherapeutic anticoagulation Current Visit: No Status: Acute Plan to address problem: Patient has been on Coumadin for anticoagulation however INR is subtherapeutic. Patient has been started on IV heparin. Cardiology consult and follow-up appreciated Agree with the plan for DOAC after stress test Recommended DOAC on 01/20. Patient declined stating she was adamant she remain on it. She states that this is "whats best for my body". Educated on different anticoagulant options and patient still declines. Will be dc on warfarin. Plan for (5) History of pulmonary embolism/DVT Current Visit: No Status: Chronic Plan to address problem: Patient on anticoagulation. CT angiogram today did not reveal any pulmonary embolism. Will remain on warfarin. (6) Full code status Current Visit: Yes Status: Acute Plan to address problem: Patient is full code. Subjective Date of service: 01/19/21 Principal diagnosis: Anticoagulation History Interval history: Extensive discussion about anticoagulant at patient bedside today. Patient is adamant about remaining on warfarin. Goes to outpatient INR clinic for checks. Hospitalist Physical - Physical exam Narrative exam: Physical Exam: VITAL SIGNS: Reviewed. GENERAL: The patient appears normally developed, Vital signs as documented. HEAD: No signs of head trauma. EYES: Pupils are equal. Extraocular motions intact. EARS: Hearing grossly intact. MOUTH: Oropharynx is normal. NECK: No adenopathy, no JVD. CHEST: Chest with clear breath sounds bilaterally. No wheezes, rales, or rhonchi. CARDIAC: Regular rate and rhythm. S1 and S2, without murmurs, gallops, or rubs. VASCULAR: No Edema. Peripheral pulses normal and equal in all extremities. ABDOMEN: Soft, non tender and non distended. No rebound or guarding, and no masses palpated. Bowel Sounds normal. MUSCULOSKELETAL: Good range of motion of all major joints. Extremities without clubbing, cyanosis or edema. NEUROLOGIC EXAM: Alert and oriented x 4. no focal sensory or strength deficits. PSYCHIATRIC: Mood normal. SKIN: detail exam as documented in skin assessment - Constitutional Vitals: Temp Pulse Resp BP Pulse Ox 98.3 F 84 18 104/61 94 01/20/21 08:11 01/20/21 08:11 01/20/21 08:11 01/20/21 08:11 01/20/21 08:11 General appearance: Present: no acute distress, well-nourished HEART Score - HEART Score EKG: Normal Age: < 45 Risk factors: 1-2 risk factors Troponin: Troponin T < 0.010 ng/mL (0.00-0.029) 01/16/21 17:59 Troponin: < normal limit Results - Labs CBC & Chem 7: 01/20/21 07:06 01/17/21 06:00 Labs: Laboratory Last Values WBC 7.6 K/mm3 (4.5-11.0) 01/17/21 06:00 RBC 3.78 M/mm3 (3.65-5.03) 01/17/21 06:00 Hgb 9.7 gm/dl (10.1-14.3) L 01/20/21 07:06 Hct 31.2 % (30.3-42.9) 01/20/21 07:06 MCV 86 fl (79-97) 01/17/21 06:00 MCH 27 pg (28-32) L 01/17/21 06:00 MCHC 31 % (30-34) 01/17/21 06:00 RDW 18.7 % (13.2-15.2) H 01/17/21 06:00 Plt Count 86.6 K/mm3 (140-440) L 01/20/21 07:06 Lymph % (Auto) 40.6 % (13.4-35.0) H 01/17/21 06:00 [place] % (Auto) 7.8 % (0.0-7.3) H 01/17/21 06:00 Eos % (Auto) 11.1 % (0.0-4.3) H 01/17/21 06:00 Baso % (Auto) 1.0 % (0.0-1.8) 01/17/21 06:00 Lymph # (Auto) 3.1 K/mm3 (1.2-5.4) 01/17/21 06:00 [place] # (Auto) 0.6 K/mm3 (0.0-0.8) 01/17/21 06:00 Eos # (Auto) 0.8 K/mm3 (0.0-0.4) H 01/17/21 06:00 Baso # (Auto) 0.1 K/mm3 (0.0-0.1) 01/17/21 06:00 Seg Neutrophils % 39.5 % (40.0-70.0) L 01/17/21 06:00 Seg Neutrophils # 3.0 K/mm3 (1.8-7.7) 01/17/21 06:00 PT 13.7 Sec. (12.2-14.9) 01/19/21 10:38 INR 0.95 (0.87-1.13) 01/19/21 10:38 APTT 28.1 Sec. (24.2-36.6) 01/16/21 10:24 D-Dimer 361.64 ng/mlDDU (0-234) H 01/16/21 00:48 Heparin Anti-Xa Level 0.20 U.I./ml (0.3-0.7) L 01/20/21 06:05 Sodium 137 mmol/L (137-145) 01/17/21 06:00 Potassium 4.3 mmol/L (3.6-5.0) 01/17/21 06:00 Chloride 100.9 mmol/L (98-107) 01/17/21 06:00 Carbon Dioxide 22 mmol/L (22-30) 01/17/21 06:00 Anion Gap 18 mmol/L 01/17/21 06:00 BUN 15 mg/dL (7-17) 01/17/21 06:00 Creatinine 1.4 mg/dL (0.6-1.2) H 01/17/21 06:00 Estimated GFR 50 ml/min 01/17/21 06:00 BUN/Creatinine Ratio 11 % 01/17/21 06:00 Glucose 128 mg/dL (65-100) H 01/17/21 06:00 Calcium 9.0 mg/dL (8.4-10.2) 01/17/21 06:00 Total Bilirubin 0.20 mg/dL (0.1-1.2) 01/16/21 00:48 AST 23 units/L (5-40) 01/16/21 00:48 ALT 14 units/L (7-56) 01/16/21 00:48 Alkaline Phosphatase 96 units/L (35-129) 01/16/21 00:48 Total Creatine Kinase 231 units/L (30-135) H 01/16/21 17:59 CK-MB (CK-2) 2.2 ng/mL (0.0-4.0) 01/16/21 17:59 CK-MB (CK-2) Rel Index 0.9 (0-4) 01/16/21 17:59 Troponin T < 0.010 ng/mL (0.00-0.029) 01/16/21 17:59 NT-Pro-B Natriuret Pep 16.76 pg/mL (0-450) 01/16/21 00:48 Total Protein 9.2 g/dL (6.3-8.2) H 01/16/21 00:48 Albumin 4.2 g/dL (3.9-5) 01/16/21 00:48 Albumin/Globulin Ratio 0.8 % 01/16/21 00:48 HCG, Qual Negative (Negative) 01/16/21 00:48 Rojas/IV: Voiding Method Toilet Active Medications - Current Medications Current Medications: Generic Name Dose Route Start Last Admin Trade Name Freq PRN Reason Stop Dose Admin Alprazolam 0.5 mg 01/16/21 10:00 01/20/21 09:29 Alprazolam 0.5 Mg Tab PO 0.5 mg BID ELLIOTT Administration Gabapentin 300 mg 01/16/21 10:00 01/20/21 09:29 Gabapentin 300 Mg Cap PO 300 mg BID ELLIOTT Administration Heparin Sodium (Porcine) 5,200 unit 01/16/21 04:17 Heparin 10,000 Units/10 Ml Vial 40 unit/kg (5200 unit) IV Q6H PRN Anti-Xa Assay < 0.1 units/ml Heparin Sodium/Sodium Chloride 25,000 unit in 500 mls @ 30 mls/hr 01/16/21 05:00 01/20/21 06:05 Heparin/ 0.45% Nacl-25,000 Unit/500 Ml IV 1,250 units/hr TITR ELLIOTT 25 mls/hr Administration Protocol 1,500 UNITS/HR Magnesium Hydroxide 30 ml 01/16/21 04:25 Magnesium Hydroxide (Mom) Oral Liqd Udc PO Q4H PRN Constipation Morphine Sulfate 2 mg 01/16/21 09:31 01/20/21 08:51 Morphine 2 Mg/1 Ml Inj IV 2 mg Q3H PRN Administration Pain, Moderate (4-6) Nitroglycerin 0.4 mg 01/16/21 04:25 Nitroglycerin 0.4 Mg Tab Subl SL Q5M PRN Chest Pain Ondansetron HCl 4 mg 01/16/21 04:25 Ondansetron 4 Mg/2 Ml Inj IV Q8H PRN Nausea And Vomiting Oxycodone/Acetaminophen 1 tab 01/16/21 18:44 Oxycodone /Acetaminophen 5-325mg Tab PO Q4H PRN Pain, Moderate (4-6) Propranolol HCl 20 mg 01/16/21 14:00 01/20/21 08:57 Propranolol 10 Mg Tab PO Not Given TID ELLIOTT Quetiapine Fumarate 100 mg 01/16/21 10:00 01/20/21 09:30 Quetiapine 100 Mg Tab PO 100 mg BID ELLIOTT Administration Sodium Chloride 10 ml 01/16/21 10:00 01/20/21 09:30 Sodium Chloride 0.9% 10 Ml Flush Syringe IV 10 ml BID ELLIOTT Administration Sodium Chloride 10 ml 01/16/21 04:25 Sodium Chloride 0.9% 10 Ml Flush Syringe IV PRN PRN LINE FLUSH Sodium Chloride 10 ml 01/16/21 04:25 Sodium Chloride 0.9% 10 Ml Flush Syringe IV PRN PRN LINE FLUSH Tramadol HCl 50 mg 01/16/21 04:25 01/20/21 10:48 Tramadol 50 Mg Tab PO 50 mg Q6H PRN Administration Pain, Moderate (4-6) Warfarin Sodium 10 mg 01/19/21 17:00 01/19/21 16:11 Warfarin 10 Mg Tab PO 10 mg DAILY@1700 ELLIOTT Administration Nutrition/Malnutrition Assess - Dietary Evaluation Nutrition/Malnutrition Findings: Nutrition Notes Start: 01/18/21 12:34 Freq: Status: Active Protocol: Document 01/18/21 12:34 JAMES (Rec: 01/18/21 12:55 JAMES [email or web address]) Nutrition Notes Initial or Follow up Assessment Current Diagnosis Hypertension Other Pertinent Diagnosis Chest pain, Subtherapeutic anticoagulation. Current Diet Cardiac Diet (since L 01/16), NPO (from 01/19 00:01). Labs/Tests 01/17: Crea 1.4, Glu 128. Pertinent Medications 01/17: Warfarin, others nutritionally unremarkable. Height 5 ft 4 in Weight 128.82 kg [place] Body Weight (kg) 54.54 BMI 48.7 Weight Status Morbidly Obese Subjective/Other Information RD consult for Warfarin use. Pt on wafarine since 2017. Percent of energy/protein needs met: Prescribed Cardiac Diet provides for energy/protein needs (2,230 Kcal/85 g) during LOS. Burn Absent Trauma Absent GI Symptoms None Food Allergy No Skin Integrity/Comment Clear, warm, dry. Minimum of two criteria No #1 Nutrition Diagnosis No nutrition diagnosis at this time Comments: Pt on wafarine since 2017, according to progress notes. Is patient on ventilator? No Is Patient Ambulatory and/or Out of Bed Yes REE-([facility]-ambulatory/OOB) [ [id number] [id number]] Calculation Used for Recommendations [facility] Additional Notes Protein: 1-1.2 g/Kg; 55-66 g/ day (from IBW + critical care) . Fluids: 1 ml/Kcal, or as per MD. Nutrition Intervention Change Diet Order: Resume Cardiac Diet after NPO, as per MD. Goal #1 Maintain body weight within +/ -3% of admission BWt during LOS. Goal #2 Reach and maintain acceptable chemistry lab values during LOS. Follow-Up By: 01/26/21 Additional Comments Continue monitoring food tolerance, %PO intake of meals , Hydration, and BM.
[2021-01-20 13:15] LABS: INR 0.99 (0.87-1.13)
[2021-01-20] MEDS ORDERED: WARFARIN 10 MG TAB PO SCH (16:03)
[2021-01-20] MEDS ORDERED: WARFARIN 7.5 MG TAB PO SCH (17:00)
[2021-01-21] MEDS: MORPHINE 2 MG/1 ML INJ IV PRN ×3 (01:26→09:46)
[2021-01-21] MEDS: HEPARIN/ 0.45% NACL DRIP 25,000 UNIT/500 ML BAG IV SCH (05:30)
[2021-01-21 08:23] VITALS: BP 109/62
[2021-01-21] MEDS: traMADol 50 MG TAB PO PRN (08:33)
[2021-01-21] MEDS: PROPRANOLOL 10 MG TAB PO SCH (09:44)
[2021-01-21] MEDS: ALPRAZolam 0.5 MG TAB PO SCH (09:45)
[2021-01-21] MEDS: QUEtiapine 100 MG TAB PO SCH (09:45)
[2021-01-21] MEDS: GABAPENTIN 300 MG CAP PO SCH (09:45)
[2021-01-21 09:55] LABS: INR 1.04 (0.87-1.13)
--- NOTE | 2021-01-21 17:10 | Discharge Summary ---
Providers - Providers Date of Admission: 01/18/21 16:04 Date of discharge: 01/21/21 Attending physician: PHILIP MUNROE MD 01/16/21 Consult to Cardiac Rehabilitation [CONS] Routine Reason For Exam: Phase I 01/16/21 04:26 Consult to Cardiology [CONS] Routine Consulting Provider: DESHAWN SAHNI Reason For Exam: chest pain 01/19/21 11:56 Consult to Case Management [CONS] Routine Services Needed at Discharge: Other Notified:: CASE MANAGEMENT Comment:: Medication cost assistance: eliquis, xarelto, or pradaxa. Primary care physician: SOC ANALYST Hospitalization Reason for admission: chest pain Condition: Stable Hospital course: Interval history: 40-year-old -[place] female with known history of pulmonary embolism, hypertension, history of aortic dissection and history of hypothyroidism in the past presenting to the emergency room complaining of chest pain. Chest pain has been intermittent and has been ongoing for about 2-weeks. Chest pain is substernal and radiates into the entire precordium. She denies any headache or dizziness and denies any diaphoresis. Denies any fever or chills, no nausea vomiting and no abdominal pain. Patient indicates that she has been having progressive lower extremity swelling more on the left lower extremity than the right. She denies any shortness of breath. Patient has been on Coumadin for anticoagulation for her history of pulmonary embolism and DVT. Work-up in the emergency room today, D-dimer was found to be 361. INR is 1.05 Chest x-ray unremarkable. CT angiogram of the chest reveals no evidence of pulmonary embolism, there is endovascular stent graft in the descending thoracic aorta without acute aortic d issection. Patient being admitted for chest pain work-up. Hospital course to date 01/17/2021 Patient admitted for subtherapeutic INR Patient has prosthetic aortic valve, recurrent PEs and DVTs Patient on Coumadin but subtherapeutic now No shortness of breath 01/18/2021 Patient on IV heparin drip Coumadin subtherapeutic For stress test tomorrow Defer to cardiology regarding DOAC and discharge Patient insists being on warfarin We will discuss with cardiology regarding Eliquis and aspirin 01/19/21: Gone for stress this AM. INR still remains subtherapeutic at 0.96. D/w pharmacy, will inc to 10 mg daily. Recheck in Am. 01/20/21: Stress test negative. Subtherapeutic yesterday. Awaiting INR. Patient declined wanting to change from warfarin to xarelto. Will follow INR, can be d/c patient once therapeutic. 01/21/21: patient left AMA due to family emergency. Counseled on risks of leaving without therapeutic INR, patient understood risks. Care staff aware and patient signed paperwork. Assessment and plan (1) Chest pain Current Visit: No Status: Acute Plan to address problem: Lexiscan negative. Possible discharge on higher dose of warfarin or Eliquis Warfarin currently at 10 mg po daily. May inc to 15 mg. 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 (3) HTN (hypertension) Current Visit: No Status: Chronic Plan to address problem: We will resume routine antihypertensive medications and monitor vital signs closely. (4) Subtherapeutic anticoagulation Current Visit: No Status: Acute Plan to address problem: Patient has been on Coumadin for anticoagulation however INR is subtherapeutic. Patient has been started on IV heparin. Cardiology consult and follow-up appreciated Agree with the plan for DOAC after stress test Recommended DOAC on 01/20. Patient declined stating she was adamant she remain on it. She states that this is "whats best for my body". Educated on different anticoagulant options and patient still declines. Will be dc on warfarin. Plan for (5) History of pulmonary embolism/DVT Current Visit: No Status: Chronic Plan to address problem: Patient on anticoagulation. CT angiogram today did not reveal any pulmonary embolism. Will remain on warfarin. (6) Full code status Current Visit: Yes Status: Acute Plan to address problem: Patient is full code. Disposition: HOME / SELF CARE / HOMELESS Final Discharge Diagnosis (Prints w/discharge instructions): chest pain Time spent for discharge: 35 Core Measure Documentation - Palliative Care Palliative Care/ Comfort Measures: Not Applicable - Core Measures Any of the following diagnoses?: none Exam - Physical Exam Narrative exam: Physical Exam: VITAL SIGNS: Reviewed. GENERAL: The patient appears normally developed, Vital signs as documented. HEAD: No signs of head trauma. EYES: Pupils are equal. Extraocular motions intact. EARS: Hearing grossly intact. MOUTH: Oropharynx is normal. NECK: No adenopathy, no JVD. CHEST: Chest with clear breath sounds bilaterally. No wheezes, rales, or rhonchi. CARDIAC: Regular rate and rhythm. S1 and S2, without murmurs, gallops, or rubs. VASCULAR: No Edema. Peripheral pulses normal and equal in all extremities. ABDOMEN: Soft, non tender and non distended. No rebound or guarding, and no masses palpated. Bowel Sounds normal. MUSCULOSKELETAL: Good range of motion of all major joints. Extremities without clubbing, cyanosis or edema. NEUROLOGIC EXAM: Alert and oriented x 4. no focal sensory or strength deficits. PSYCHIATRIC: Mood normal. SKIN: detail exam as documented in skin assessment - Constitutional Vitals: Temp Pulse Resp BP Pulse Ox 98.6 F 85 18 109/62 96 01/21/21 08:05 01/21/21 08:05 01/21/21 08:05 01/21/21 08:05 01/21/21 08:05 Plan Follow up with: PRIMARY MD LUKE [Primary Care Provider] - 3-5 Days Forms: Warfarin Discharge Instruction
== END 2021-01-20 10:20 | disposition left against medical advice (07) | DRG 313 ==
LOC: ED 23:42 → 4A 01-16 04:27 → OBSVTOIN 01-18 16:04
PROVIDERS: ADMIT Internal Medicine Geriatric Medicine; ATTEND Internal Medicine
DX: R07.89 Other chest pain (principal); Z68.42 Body mass index [BMI] 45.0-49.9, adult; E66.01 Morbid (severe) obesity due to excess calories; Z72.0 Tobacco use; K21.9 Gastro-esophageal reflux disease without esophagitis; F41.9 Anxiety disorder, unspecified; Z86.718 Personal history of other venous thrombosis and embolism; Z86.711 Personal history of pulmonary embolism; I10 Essential (primary) hypertension; F20.9 Schizophrenia, unspecified; Z20.822 Contact with and (suspected) exposure to COVID-19
CPT/HCPCS: 36415; 71045; 71046; 71275; 78452; 80048; 80053; 82550; 82553; 83880; 84484; 84703; 85014; 85018; 85025; 85049; 85379; 85520; 85610; 85730; 93005; 93017; 93970; G0378; J3490; Q0162; A9502; J1644; J2270; J2405; J2785; J7030; Q9967

== ENCOUNTER 2021-03-20 00:31 | Emergency (ER) | payer SELFPAY ==
[2021-03-20 01:35] VITALS: BP 117/57
--- NOTE | 2021-03-20 11:46 | Electrocardiograph Report ---
[facility] Test Date: 2021-03-20 Test Time: 01:16:05 Pat Name: FELIZ HERRING Department: Room: Gender: F Manager Of Environmental Services: RKOKU : 1980 Requested By: LYDIA SHAFER Order Number: [id number] Reading MD: Adrian Langston Measurements Intervals [place] Rate: 99 P: 53 WV: 170 QRS: 31 QRSD: 76 T: 62 QT: 360 QTc: 462 Interpretive Statements Sinus rhythm Low voltage, precordial leads Compared to ECG 01/30/2021 14:02:32 Low QRS voltage now present Electronically Signed On 03-20-2021 11:45:43 EST by Adrian Langston
== END 2021-03-20 02:25 | disposition left against medical advice (07) ==
LOC: ED 00:31
DX: R07.9 Chest pain, unspecified (principal); Z53.21 Procedure and treatment not carried out due to patient leaving prior to being seen by health care provider
CPT/HCPCS: 93005; 93010

== ENCOUNTER 2021-05-18 00:41 | Emergency (ER) | payer SELFPAY ==
[2021-05-18 00:54] VITALS: BP 144/74
--- NOTE | 2021-05-18 01:35 | XRay Report ---
CHEST 2 VIEWS INDICATION / CLINICAL INFORMATION: CHEST PAIN. COMPARISON: Chest x-ray 01/30/2021 FINDINGS: SUPPORT DEVICES: None. HEART / MEDIASTINUM: Stable heart size given the difference in technique. LUNGS / PLEURA: No significant pulmonary or pleural abnormality. No pneumothorax. ADDITIONAL FINDINGS: Stable positioning of aortic stent graft. IMPRESSION: 1. No active cardiopulmonary disease. Signer Name: Jose Williamson II, MD Signed: 05/18/2021 1:30 AM Workstation Name: [id number]
[2021-05-18] MEDS ORDERED: predniSONE 50 MG TAB PO ONE (04:13)
--- NOTE | 2021-05-18 04:17 | Emergency Department Report ---
ED Extremity Problem HPI - General Chief complaint: Chest Pain Stated complaint: CHEST PAIN/BILATERAL LEG PAIN Source: patient Mode of arrival: Ambulatory Limitations: No Limitations - History of Present Illness Initial comments: Patient is a 40-year-old -[place] female with a history of DVT, GERD, hypertension, PE, seizures, GERD or seizures who presents to the ED with c/o persistent left foot pain and swelling for the last 3 months. Patient states that she is on her feet most of the time walking and that in the last 4 days the pain has been persistent and worse despite taking tramadol for pain. Patient denies fall, traumatic injury, dizziness, syncope, fever, chills, nausea and vomiting, chest pain or shortness of breath, numbness and tingling or weakness of lower extremities bilaterally or low back pain. MD Complaint: extremity pain (left foot pain and swelling) -: Gradual, month(s) (3) Location: left, other (foot) History of Same: Yes (chronic lymphedema) -: Yes arthralgia (left foot pain and swelling) Quality: aching, sharp Consistency: constant Improves with: nothing Worsens with: weight bearing, walking, palpation Associated Symptoms: denies other symptoms, arthralgias. denies: chest pain, shortness of breath, fever, myalgias, rash, other - Related Data Home Medications Medication Instructions Recorded Confirmed Last Taken QUEtiapine [SEROquel] 100 mg PO QAM 01/16/21 01/16/21 01/15/21 Quetiapine Fumarate [SEROquel] 300 mg PO QHS 01/16/21 01/16/21 01/14/21 levETIRAcetam [Keppra TAB] 500 mg PO BID 01/16/21 01/16/21 01/15/21 traMADoL [Ultram] 100 mg PO TID 01/16/21 01/16/21 01/15/21 ALPRAZolam [Xanax TAB] 0.5 mg PO TID 01/18/21 01/18/21 01/17/21 Gabapentin [Neurontin] 300 mg PO TID 01/18/21 01/18/21 01/17/21 propranoloL [Inderal] 40 mg PO BID 01/18/21 01/18/21 01/17/21 Previous Rx's Medication Instructions Recorded Last Taken Type Aspirin EC [Halfprin EC] 81 mg PO QDAY #30 01/01/20 01/15/21 Rx Warfarin [Coumadin] 7.5 mg PO DAILY@1700 #30 tablet 04/22/20 01/15/21 Rx predniSONE [Deltasone] 40 mg PO QDAY #10 tab 05/18/21 Unknown Rx Allergies Allergy/AdvReac Type Severity Reaction Status Date / Time acetaminophen [From Tylenol] Allergy Hives Verified 12/16/20 11:52 enoxaparin [From Lovenox] Allergy Rash, Verified 01/18/21 13:51 fever, vomiting garlic Allergy Hives Verified 01/18/21 13:51 oxycodone [From Percocet] Allergy Itching, Verified 01/18/21 13:51 rash peanut oil Allergy Rash Verified 01/18/21 13:51 Penicillins Allergy hives, Verified 01/18/21 13:51 vomiting ibuprofen [From Motrin] AdvReac nausea/vomi Verified 01/18/21 13:51 ting ED Review of Systems ROS: Stated complaint: CHEST PAIN/BILATERAL LEG PAIN Other details as noted in HPI Constitutional: denies: chills, fever Eyes: denies: eye pain, eye discharge, vision change ENT: denies: ear pain, throat pain Respiratory: denies: cough, shortness of breath, wheezing Cardiovascular: denies: chest pain, palpitations Endocrine: no symptoms reported Gastrointestinal: denies: abdominal pain, nausea, diarrhea Genitourinary: denies: urgency, dysuria, discharge Musculoskeletal: joint swelling (Left foot pain and swelling), arthralgia (Left foot pain and swelling). denies: back pain Skin: denies: rash, lesions Neurological: denies: headache, weakness, paresthesias Psychiatric: denies: anxiety, depression Hematological/Lymphatic: denies: easy bleeding, easy bruising ED Past Medical Hx - Past Medical History Hx Hypertension: Yes Hx Heart Attack/AMI: (normal stress 10-31-16, normal perfusion scan May 2017) Hx Congestive Heart Failure: No Hx Diabetes: No Hx Deep Vein Thrombosis: Yes Hx Pulmonary Embolism: Yes Hx GERD: Yes Hx Sickle Cell Disease: No Hx Seizures: Yes Hx Psychiatric Treatment: Yes (anxiety) Hx Asthma: No Hx COPD: No Hx Tuberculosis: No Hx HIV: No Additional medical history: pericarditis, pt states hyperthyroidism, thyroid storm, PE x2, (R lung 05/2016, L lung 01/2017--on coumadin), R leg DVT 03/2017, Graves Disease, heart murmur, aortic dissection - Surgical History Hx Coronary Stent: Yes ("multiple stents") Hx Pacemaker: No Hx Internal Defibrillator: No Additional Surgical History: Left arm surgery 02/2017, Right knee, Rt leg. 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, [place] Filter - Social History Smoking Status: Never Smoker Substance Use Type: None - Medications Home Medications: Home Medications Medication Instructions Recorded Confirmed Last Taken Type Aspirin EC [Halfprin EC] 81 mg PO QDAY #30 01/01/20 01/16/21 01/15/21 Rx Warfarin [Coumadin] 7.5 mg PO DAILY@1700 #30 tablet 04/22/20 01/16/21 01/15/21 Rx QUEtiapine [SEROquel] 100 mg PO QAM 01/16/21 01/16/21 01/15/21 History Quetiapine Fumarate [SEROquel] 300 mg PO QHS 01/16/21 01/16/21 01/14/21 History levETIRAcetam [Keppra TAB] 500 mg PO BID 01/16/21 01/16/21 01/15/21 History traMADoL [Ultram] 100 mg PO TID 01/16/21 01/16/21 01/15/21 History ALPRAZolam [Xanax TAB] 0.5 mg PO TID 01/18/21 01/18/21 01/17/21 History Gabapentin [Neurontin] 300 mg PO TID 01/18/21 01/18/21 01/17/21 History propranoloL [Inderal] 40 mg PO BID 01/18/21 01/18/21 01/17/21 History predniSONE [Deltasone] 40 mg PO QDAY #10 tab 05/18/21 Unknown Rx ED Physical Exam - General Limitations: No Limitations General appearance: alert, in no apparent distress - Head Head exam: Present: atraumatic, normocephalic, normal inspection - Eye Eye exam: Present: normal appearance, PERRL, EOMI Pupils: Present: normal accommodation - ENT ENT exam: Present: normal exam, normal orophraynx, mucous membranes moist, TM's normal bilaterally, normal external ear exam - Neck Neck exam: Present: normal inspection, full ROM. Absent: tenderness - Respiratory Respiratory exam: Present: normal lung sounds bilaterally. Absent: respiratory distress, wheezes, chest wall tenderness, accessory muscle use, decreased breath sounds, prolonged expiratory - Cardiovascular Cardiovascular Exam: Present: regular rate, normal rhythm, normal heart sounds. Absent: systolic murmur, diastolic murmur, rubs, gallop - GI/Abdominal GI/Abdominal exam: Present: soft, normal bowel sounds. Absent: tenderness, guarding, rebound, hyperactive bowel sounds, hypoactive bowel sounds, organomegaly - Extremities Exam Extremities exam: Present: normal inspection, full ROM, tenderness (Palpable left plantar feet and dorsal foot tenderness with mild swelling), normal capillary refill, joint swelling (Mildly swollen dorsal left foot). Absent: pedal edema, calf tenderness - Back Exam Back exam: Present: normal inspection, full ROM. Absent: tenderness, CVA tenderness (R), CVA tenderness (L), muscle spasm, vertebral tenderness - Neurological Exam Neurological exam: Present: alert, oriented X3, CN II-XII intact, normal gait, reflexes normal - Psychiatric Psychiatric exam: Present: normal affect, normal mood - Skin Skin exam: Present: warm, dry, intact, normal color. Absent: rash ED Course Vital Signs 05/18/21 05/18/21 00:50 00:51 Temperature 98.0 F Pulse Rate 83 84 Respiratory 18 Rate Blood Pressure 144/74 O2 Sat by Pulse 96 97 Oximetry ED Medical Decision Making - EKG Data EKG shows normal: sinus rhythm Rate: normal - EKG Data When compared to previous EKG there are: no significant change Interpretation: normal EKG 05/18/21 06:07 EKG shows normal sinus rhythm with a ventricular rate of [address] or T wave abnormalities. - Medical Decision Making This is a 40-year-old -[place] female with a history of DVT, GERD, hypertension, PE, seizures, GERD or seizures who presents to the ED with c/o persistent left foot pain and swelling for the last 3 months. Patient states that she is on her feet most of the time walking and that in the last 4 days the pain has been persistent and worse despite taking tramadol for pain. In the ED, patient is alert and oriented x3 and is not in any distress. Patient was treated for pain in the ED and discharged home based on the history and physical exam findings. Patient advised to follow-up with her primary care physician in 7 to 10 days for reevaluation. Patient advised return to the ED immediately if symptoms get worse. - Differential Diagnosis Tendinitis; muscle strain; foot sprain Critical care attestation.: If time is entered above; I have spent that time in minutes in the direct care of this critically ill patient, excluding procedure time. ED Disposition Clinical Impression: Left foot pain, Tendinitis of left foot Disposition: 01 HOME / SELF CARE / HOMELESS Is pt being admited?: No Does the pt Need Aspirin: No Condition: Stable Instructions: Foot Pain Additional Instructions: Take medication with food, drink plenty of fluids and follow-up with your primary care physician in 7 to 10 days for reevaluation. Return to the ED immediately if symptoms get worse. Prescriptions: predniSONE [Deltasone] 40 mg PO QDAY #10 tab Referrals: NIKKY BARNETT MD [Primary Care Provider] - 3-5 Days Time of Disposition: 04:16 Print Language: ANDORRAN
--- NOTE | 2021-05-19 14:20 | Electrocardiograph Report ---
[facility] Test Date: 2021-05-18 Test Time: 01:05:51 Pat Name: FELIZ HERRING Department: Room: Gender: F [employer]: [employer]BIAS : 1980 Requested By: GEREMIAS HAGEN Order Number: [id number] Reading MD: Chloé Canseco Measurements Intervals Rule Rate: 85 P: 43 SD: 157 QRS: 22 QRSD: 72 T: 41 QT: 386 QTc: 459 Interpretive Statements Sinus rhythm Compared to ECG 03/20/2021 01:16:05 No significant changes Electronically Signed On 05-19-2021 14:20:22 EDT by Chloé Canseco
== END 2021-05-18 05:01 | disposition home or self-care (01) ==
LOC: ED 00:41
DX: M79.672 Pain in left foot (principal); M65.272 Calcific tendinitis, left ankle and foot; I10 Essential (primary) hypertension; Z88.0 Allergy status to penicillin; Z88.6 Allergy status to analgesic agent; Z91.018 Allergy to other foods
CPT/HCPCS: 71046; 93005; 99283; J7512

== ENCOUNTER 2021-05-29 22:16 | Inpatient (IN) | payer SELFPAY ==
--- NOTE | 2021-05-29 23:30 | Emergency Department Report ---
ED General Adult HPI - General Stated complaint: CHEST PAIN Time Seen by Provider: 05/29/21 23:15 - History of Present Illness Initial comments: Patient presents with complaints of chest pain, retrosternal, sharp, radiating to back, 10/10, worsened by deep breaths, not relieved by anything, associated with SOB. Denies palpitations, diaphoresis. Endorses bilateral leg swelling, pain in her calves. Denies recent travel, immobilization, surgery, hospital ization, Hormonal contraceptive use. - Related Data Home Medications Medication Instructions Recorded Confirmed Last Taken QUEtiapine [SEROquel] 100 mg PO QAM 01/16/21 01/16/21 01/15/21 Quetiapine Fumarate [SEROquel] 300 mg PO QHS 01/16/21 01/16/21 01/14/21 levETIRAcetam [Keppra TAB] 500 mg PO BID 01/16/21 01/16/21 01/15/21 traMADoL [Ultram] 100 mg PO TID 01/16/21 01/16/21 01/15/21 ALPRAZolam [Xanax TAB] 0.5 mg PO TID 01/18/21 01/18/21 01/17/21 Gabapentin [Neurontin] 300 mg PO TID 01/18/21 01/18/21 01/17/21 propranoloL [Inderal] 40 mg PO BID 01/18/21 01/18/21 01/17/21 Previous Rx's Medication Instructions Recorded Last Taken Type Aspirin EC [Halfprin EC] 81 mg PO QDAY #30 01/01/20 01/15/21 Rx Warfarin [Coumadin] 7.5 mg PO DAILY@1700 #30 tablet 04/22/20 01/15/21 Rx predniSONE [Deltasone] 40 mg PO QDAY #10 tab 05/18/21 Unknown Rx Allergies Allergy/AdvReac Type Severity Reaction Status Date / Time acetaminophen [From Tylenol] Allergy Hives Verified 12/16/20 11:52 enoxaparin [From Lovenox] Allergy Rash, Verified 01/18/21 13:51 fever, vomiting garlic Allergy Hives Verified 01/18/21 13:51 oxycodone [From Percocet] Allergy Itching, Verified 01/18/21 13:51 rash peanut oil Allergy Rash Verified 01/18/21 13:51 Penicillins Allergy hives, Verified 01/18/21 13:51 vomiting ibuprofen [From Motrin] AdvReac nausea/vomi Verified 01/18/21 13:51 ting ED Review of Systems ROS: Stated complaint: CHEST PAIN Other details as noted in HPI Comment: All other systems reviewed and negative Constitutional: denies: chills, fever ED Past Medical Hx - Past Medical History Hx Hypertension: Yes Hx Heart Attack/AMI: (normal stress 10-31-16, normal perfusion scan May 2017) Hx Congestive Heart Failure: No Hx Diabetes: No Hx Deep Vein Thrombosis: Yes Hx Pulmonary Embolism: Yes Hx GERD: Yes Hx Sickle Cell Disease: No Hx Seizures: Yes Hx Psychiatric Treatment: Yes (anxiety) Hx Asthma: No Hx COPD: No Hx Tuberculosis: No Hx HIV: No Additional medical history: pericarditis, pt states hyperthyroidism, thyroid storm, PE x2, (R lung 05/2016, L lung 01/2017--on coumadin), R leg DVT 03/2017, Graves Disease, heart murmur, aortic dissection - Surgical History Hx Coronary Stent: Yes ("multiple stents") Hx Pacemaker: No Hx Internal Defibrillator: No Additional Surgical History: Left arm surgery 02/2017, Right knee, Rt leg. 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, [place] Filter - Social History Smoking Status: Never Smoker Substance Use Type: None - Medications Home Medications: Home Medications Medication Instructions Recorded Confirmed Last Taken Type Aspirin EC [Halfprin EC] 81 mg PO QDAY #30 01/01/20 01/16/21 01/15/21 Rx Warfarin [Coumadin] 7.5 mg PO DAILY@1700 #30 tablet 04/22/20 01/16/21 01/15/21 Rx QUEtiapine [SEROquel] 100 mg PO QAM 01/16/21 01/16/21 01/15/21 History Quetiapine Fumarate [SEROquel] 300 mg PO QHS 01/16/21 01/16/21 01/14/21 History levETIRAcetam [Keppra TAB] 500 mg PO BID 01/16/21 01/16/21 01/15/21 History traMADoL [Ultram] 100 mg PO TID 01/16/21 01/16/21 01/15/21 History ALPRAZolam [Xanax TAB] 0.5 mg PO TID 01/18/21 01/18/21 01/17/21 History Gabapentin [Neurontin] 300 mg PO TID 01/18/21 01/18/21 01/17/21 History propranoloL [Inderal] 40 mg PO BID 01/18/21 01/18/21 01/17/21 History predniSONE [Deltasone] 40 mg PO QDAY #10 tab 05/18/21 Unknown Rx ED Physical Exam - General General appearance: alert, in no apparent distress - Head Head exam: Present: atraumatic, normocephalic - Eye Eye exam: Present: PERRL, EOMI - ENT ENT exam: Present: mucous membranes moist, other (airway patent) - Neck Neck exam: Present: other (supple; no JVD) - Respiratory Respiratory exam: Present: other (good air entry, nml I:E, CTAB, no use of MARIELY) - Cardiovascular Cardiovascular Exam: Present: regular rate. Absent: rubs, gallop - GI/Abdominal GI/Abdominal exam: Present: soft, normal bowel sounds. Absent: distended, tenderness - Extremities Exam Extremities exam: Present: other (3+ edema in shins bilaterally; tender to palpation in calvews bilaterally) - Back Exam Back exam: Present: full ROM. Absent: tenderness - Neurological Exam Neurological exam: Present: alert, oriented X3, CN II-XII intact. Absent: motor sensory deficit - Skin Skin exam: Present: warm. Absent: cyanosis ED Course Vital Signs 05/29/21 05/30/21 05/30/21 23:13 00:32 02:40 Temperature 98 F Pulse Rate 80 80 Respiratory 20 16 Rate Blood Pressure 120/64 Blood Pressure 118/52 [Right] O2 Sat by Pulse 97 98 96 Oximetry 05/30/21 04:11 Temperature Pulse Rate 97 H Respiratory 16 Rate Blood Pressure Blood Pressure 116/54 [Right] O2 Sat by Pulse 94 Oximetry - Central Line Placement Right Femoral Consent Obtained: verbal consent Time Out Performed: Yes Patient Placed on Monitor/Pulse Ox: Yes Prep: mask, gown, gloves Central Line Prep: Chlorhexidine scrub (x3) Local Anesthesia Used: Lidocaine 1% Amount of Anesthesia Used (mls): 3 Ultrasound Used for Placement: No Central Line Lumen Inserted: triple Reason for Insertion: Emergency Venous Access Bloods Obtained for Lab: Yes Central Line Position: good blood return, all ports aspirated, flus, sutured in place with nyl Dressing Applied: Tegaderm Patient Tolerated Procedure: well, no complications Complications: none ED Medical Decision Making - Lab Data Result diagrams: 05/29/21 23:24 05/29/21 23:24 EKG: HR 90, SR, nml Pr, narrow QRS, no significant ST deflections from isoelectric line in contiguous leads Laboratory Tests 05/29/21 05/29/21 05/29/21 23:24 23:24 23:24 WBC 8.3 RBC 3.86 Hgb 8.8 L Hct 28.7 L MCV 74 L MCH 23 L MCHC 31 RDW 26.4 H Plt Count 343 PT INR APTT Sodium 139 Potassium 3.8 Chloride 105.7 Carbon Dioxide 20 L Anion Gap 17 BUN 15 Creatinine 0.9 Estimated GFR > 60 BUN/Creatinine Ratio 17 Glucose 85 Calcium 8.8 Total Bilirubin 0.20 AST 11 ALT 10 Alkaline Phosphatase 88 Troponin T < 0.010 Total Protein 6.9 Albumin 3.5 L Albumin/Globulin Ratio 1.0 Lipase HCG, Qual Negative 05/29/21 05/30/21 23:29 04:41 WBC RBC Hgb Hct MCV MCH MCHC RDW Plt Count PT 14.6 INR 1.03 APTT 20.9 L Sodium Potassium Chloride Carbon Dioxide Anion Gap BUN Creatinine Estimated GFR BUN/Creatinine Ratio Glucose Calcium Total Bilirubin AST ALT Alkaline Phosphatase Troponin T Total Protein Albumin Albumin/Globulin Ratio Lipase 31 HCG, Qual CTA chest: bilateral PEs Critical care attestation.: If time is entered above; I have spent that time in minutes in the direct care of this critically ill patient, excluding procedure time. ED Disposition Clinical Impression: Pulmonary embolism Disposition: ADMITTED INPATIENT Is pt being admited?: Yes Does the pt Need Aspirin: No Condition: Stable Time of Disposition: 04:45 (Patient admitted to Dr. Leon. Sign out was given by me to the admitting physician)
--- NOTE | 2021-05-30 02:27 | Vascular Lab Report ---
DUPLEX DOPPLER LOWER EXTREMITY VEINS, BILATERAL INDICATION / CLINICAL INFORMATION: bilateral calf pain and leg swelling. TECHNIQUE: Duplex doppler imaging was performed through the veins of both lower extremities using venous debbie lily and other maneuvers. COMPARISON: None available. FINDINGS: Right Common Femoral vein: Negative. Right Femoral vein: Negative. Right Popliteal vein: Negative. Right Calf veins: Negative. Left Common Femoral vein: Negative. Left Femoral vein: Negative. Left Popliteal vein: Negative. Left Calf veins: Negative. Additional findings: None. IMPRESSION: 1. No sonographic evidence for DVT in either lower extremity. Signer Name: Dom Tom MD Signed: 05/30/2021 2:22 AM Workstation Name: [email or web address]
[2021-05-30] MEDS ORDERED: MORPHINE 4 MG/1 ML INJ IV ONE (02:57)
[2021-05-30] MEDS ORDERED: ONDANSETRON 4 MG/2 ML INJ IV ONE (02:57)
[2021-05-30 03:29] LABS: Hematocrit 28.7 % (30.3-42.9); Hemoglobin 8.8 gm/dl (10.1-14.3); Mean Corpuscular HGB Conc 31 % (30-34); Mean Corpuscular Volume 74 fl (79-97); Platelet Count 343 K/mm3 (140-440); Red Blood Count 3.86 M/mm3 (3.65-5.03)
[2021-05-30 03:31] LABS: Red Cell Distribution Width 26.4 % (13.2-15.2)
[2021-05-30 03:46] LABS: INR 1.03 (0.87-1.13)
[2021-05-30 03:47] LABS: Partial Thromboplastin Time 20.9 Sec. (24.2-36.6)
[2021-05-30 03:51] LABS: Alanine Aminotransferase 10 units/L (7-56); Albumin 3.5 g/dL (3.9-5); BUN/Creatinine Ratio 17; Blood Urea Nitrogen 15 mg/dL (7-17); Calcium 8.8 mg/dL (8.4-10.2); Hemolysis Index 3
--- NOTE | 2021-05-30 04:52 | Cat Scan Report ---
CTA CHEST WITH IV CONTRAST INDICATION: chest pain radiating to back. Pulmonary thromboembolus. TECHNIQUE: Axial CT images were obtained through the chest after injection of 1 mL Omnipaque 350 IV contrast. 3 plane MIP reconstructions were produced. All CT scans at this location are performed using CT dose re duction for ALARA by means of automated exposure control. COMPARISON: None available. FINDINGS: PULMONARY ARTERIES: Multiple pulmonary thromboemboli identified within the distal right and left main pulmonary arteries with some extension into the segmental branches of the upper and lower lobes. AORTA AND ARTERIES: The ascending thoracic aortic stent present. MEDIASTINUM: No mass, lymphadenopathy or other significant abnormality. The heart is normal in size w ithout a pericardial effusion. The trachea and main bronchi are patent and normal in caliber. LUNGS: Scattered groundglass densities within both lungs. No pleural effusion. ADDITIONAL FINDINGS: None. UPPER ABDOMEN: Prominent filling defect identified within the IVC could represent large thrombus.. BONES: No significant osseous abnormality. IMPRESSION: 1. Acute bilateral pulmonary thromboemboli with evidence of mild right ventricular strain. 2. Scattered pneumonitis noted throughout both lungs. CRITICAL RESULT: Acute pulmonary thromboembolus. Time of Discovery: 3:46 AM a.m. on the day of exam Time of Communication: 3:50 AM on the day of exam Licensed Practitioner Receiving Report: Dr. Villagomez Read Back Performed: Yes. Signer Name: Dom Tom MD Signed: 05/30/2021 4:48 AM Workstation Name: [email or web address]
[2021-05-30] MEDS ORDERED: ACETAMINOPHEN 325 MG TAB PO PRN (05:14)
[2021-05-30] MEDS ORDERED: HEPARIN 10,000 UNITS/10 ML VIAL IV ONE (05:14)
[2021-05-30] MEDS ORDERED: HEPARIN 10,000 UNITS/10 ML VIAL IV PRN (05:14)
[2021-05-30] MEDS ORDERED: ALBUTEROL 2.5 MG/3 ML NEBU IH PRN (05:14)
[2021-05-30] MEDS ORDERED: ONDANSETRON 4 MG/2 ML INJ IV PRN (05:14)
--- NOTE | 2021-05-30 05:24 | History and Physical Report ---
History of Present Illness Date of examination: 05/30/21 Date of admission: 05/30/21 Chief complaint: Chest pain History of present illness: 40 years old female with past medical history of hypertension, DVT, PE, GERD was brought to the hospital because of chest pain, retrosternal, sharp, radiating to back, 11/29, worsened by deep breaths, not relieved by anything, associated with SOB. Denies palpitations, diaphoresis. Endorses bilateral leg swelling, pain in her calves. Denies recent travel, immobilization, surgery, hospitalization, Hormonal contraceptive use. In the emergency room initial CT scan of the chest shows acute bilateral pulmonary thromboemboli with evidence of mild right ventricular restaurant. Scattered pneumonitis noted throughout the both lungs.'s were going to admit the patient to the medical telemetry put the patient on IV heparin we also order echocardiogram Past History Past Medical History: DVT, hypertension, other (PE.pericarditis, pt states hyperthyroidism, thyroid storm, PE x2, (R lung 05/2016, L lung 01/2017--on coumadin), R leg DVT 03/2017, Graves Disease, heart murmur, aortic dissection) Past Surgical History: Other (Left arm surgery 02/2017, Right knee, Rt leg. 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, [place] Filter) Social history: other (No smoking) Family history: no significant family history Medications and Allergies Allergies Allergy/AdvReac Type Severity Reaction Status Date / Time acetaminophen [From Tylenol] Allergy Hives Verified 12/16/20 11:52 enoxaparin [From Lovenox] Allergy Rash, Verified 01/18/21 13:51 fever, vomiting garlic Allergy Hives Verified 01/18/21 13:51 oxycodone [From Percocet] Allergy Itching, Verified 01/18/21 13:51 rash peanut oil Allergy Rash Verified 01/18/21 13:51 Penicillins Allergy hives, Verified 01/18/21 13:51 vomiting ibuprofen [From Motrin] AdvReac nausea/vomi Verified 01/18/21 13:51 ting Home Medications Medication Instructions Recorded Confirmed Last Taken Type Aspirin EC [Halfprin EC] 81 mg PO QDAY #30 01/01/20 01/16/21 01/15/21 Rx Warfarin [Coumadin] 7.5 mg PO DAILY@1700 #30 tablet 04/22/20 01/16/21 01/15/21 Rx QUEtiapine [SEROquel] 100 mg PO QAM 01/16/21 01/16/21 01/15/21 History Quetiapine Fumarate [SEROquel] 300 mg PO QHS 01/16/21 01/16/21 01/14/21 History levETIRAcetam [Keppra TAB] 500 mg PO BID 01/16/21 01/16/21 01/15/21 History traMADoL [Ultram] 100 mg PO TID 01/16/21 01/16/21 01/15/21 History ALPRAZolam [Xanax TAB] 0.5 mg PO TID 01/18/21 01/18/21 01/17/21 History Gabapentin [Neurontin] 300 mg PO TID 01/18/21 01/18/21 01/17/21 History propranoloL [Inderal] 40 mg PO BID 01/18/21 01/18/21 01/17/21 History predniSONE [Deltasone] 40 mg PO QDAY #10 tab 05/18/21 Unknown Rx Review of Systems All systems: negative Cardiovascular: chest pain, shortness of breath, dyspnea on exertion Respiratory: shortness of breath, dyspnea on exertion Exam - Constitutional Vitals: Temp Pulse Resp BP Pulse Ox 98 F 97 H 16 116/54 94 05/29/21 23:13 05/30/21 04:11 05/30/21 04:11 05/30/21 04:11 05/30/21 04:11 General appearance: Present: no acute distress, well-nourished - EENT Eyes: Present: PERRL ENT: hearing intact, clear oral mucosa - Neck Neck: Present: supple, normal ROM - Respiratory Respiratory effort: normal Respiratory: bilateral: diminished - Cardiovascular Heart Sounds: Present: S1 & S2. Absent: rub, click - Extremities Extremities: pulses symmetrical, No edema Peripheral Pulses: within normal limits - Abdominal General gastrointestinal: Present: soft, non-tender, non-distended, normal bowel sounds Female genitourinary: Present: normal - Integumentary Integumentary: Present: clear, warm, dry - Musculoskeletal Musculoskeletal: gait normal, strength equal bilaterally - Psychiatric Psychiatric: appropriate mood/affect, intact judgment & insight - Neurologic Neurologic: CNII-XII intact, moves all extremities HEART Score - HEART Score Troponin: Troponin T < 0.010 ng/mL (0.00-0.029) 05/29/21 23:24 Results - Labs CBC & Chem 7: 05/29/21 23:24 05/29/21 23:24 Labs: Laboratory Last Values WBC 8.3 K/mm3 (4.5-11.0) 05/29/21 23:24 RBC 3.86 M/mm3 (3.65-5.03) 05/29/21 23:24 Hgb 8.8 gm/dl (10.1-14.3) L 05/29/21 23:24 Hct 28.7 % (30.3-42.9) L 05/29/21 23:24 MCV 74 fl (79-97) L 05/29/21 23:24 MCH 23 pg (28-32) L 05/29/21 23:24 MCHC 31 % (30-34) 05/29/21 23:24 RDW 26.4 % (13.2-15.2) H 05/29/21 23:24 Plt Count 343 K/mm3 (140-440) 05/29/21 23:24 PT 14.6 Sec. (12.2-14.9) 05/29/21 23:29 INR 1.03 (0.87-1.13) 05/29/21 23:29 APTT 20.9 Sec. (24.2-36.6) L 05/29/21 23:29 Sodium 139 mmol/L (137-145) 05/29/21 23:24 Potassium 3.8 mmol/L (3.6-5.0) 05/29/21 23:24 Chloride 105.7 mmol/L (98-107) 05/29/21 23:24 Carbon Dioxide 20 mmol/L (22-30) L 05/29/21 23:24 Anion Gap 17 mmol/L 05/29/21 23:24 BUN 15 mg/dL (7-17) 05/29/21 23:24 Creatinine 0.9 mg/dL (0.6-1.2) 05/29/21 23:24 Estimated GFR > 60 ml/min 05/29/21 23:24 BUN/Creatinine Ratio 17 % 05/29/21 23:24 Glucose 85 mg/dL (65-100) 05/29/21 23:24 Calcium 8.8 mg/dL (8.4-10.2) 05/29/21 23:24 Total Bilirubin 0.20 mg/dL (0.1-1.2) 05/29/21 23:24 AST 11 units/L (5-40) 05/29/21 23:24 ALT 10 units/L (7-56) 05/29/21 23:24 Alkaline Phosphatase 88 units/L (35-129) 05/29/21 23:24 Troponin T < 0.010 ng/mL (0.00-0.029) 05/29/21 23:24 Total Protein 6.9 g/dL (6.3-8.2) 05/29/21 23:24 Albumin 3.5 g/dL (3.9-5) L 05/29/21 23:24 Albumin/Globulin Ratio 1.0 % 05/29/21 23:24 Lipase 31 units/L (13-60) 05/30/21 04:41 HCG, Qual Negative (Negative) 05/29/21 23:24 - Imaging and Cardiology CT scan - chest: report reviewed Assessment and Plan VTE prophylaxis?: Chemical Plan of care discussed with patient/family: Yes - Patient Problems (1) Acute pulmonary embolism Current Visit: No Status: Acute Qualifiers: Plan to address problem: Admit the patient to the medical telemetry. Oxygen via nasal cannula maintenance apprentice pulmonate. DuoNeb by nebulizer every 4 hours. Albuterol via nebulizer every 4 hours as needed. Heparin drip as per protocol. Echocardiogram. Consult oncology if needed (2) Acute chest pain Current Visit: No Status: Acute Plan to address problem: Most likely secondary to PE. We will do the serial cardiac enzymes. Aspirin 81 mg p.o. daily. Patient is on heparin drip. Echocardiogram. (3) Cardiomyopathy Current Visit: No Status: Acute Plan to address problem: We will continue the home cardiac medication. Echocardiogram. Consult cardiology if needed (4) DVT (deep venous thrombosis) Current Visit: No Status: Acute Plan to address problem: Oxygen via nasal cannula maintenance apprentice pulmonate. DuoNeb by nebulizer every 4 hours. Albuterol via nebulizer every 4 hours as needed. Heparin drip as per protocol . Echocardiogram. Consult oncology if needed (5) Nicotine dependence unspecified, with withdrawal Current Visit: No Status: Acute Qualifiers: Plan to address problem: We counseled patient regarding quitting smoking. We will put nicotine patch if needed (6) Seizure disorder Current Visit: No Status: Acute Plan to address problem: Stable. We will continue the home seizure medication (7) DVT prophylaxis Current Visit: No Status: Acute Plan to address problem: Heparin drip for DVT prophylaxis. Pepcid 20 mg p.o. twice daily for GI prophylaxis. Patient is a full code
[2021-05-30] MEDS: HEPARIN/ 0.45% NACL DRIP 25,000 UNIT/500 ML BAG IV SCH ×3 (06:19→23:10)
[2021-05-30 06:22] LABS: Anisocytosis 1+; Basophils % (Manual) 0 % (0.0-1.8); Platelet Estimate Consistent w Auto; Total Cells Counted 100
[2021-05-30 08:38] LABS: Hematocrit 27.5 % (30.3-42.9); Hemoglobin 8.8 gm/dl (10.1-14.3)
[2021-05-30 08:49] LABS: INR 1.09 (0.87-1.13)
[2021-05-30 09:18] LABS: Partial Thromboplastin Time 107.1 Sec. (24.2-36.6)
[2021-05-30] MEDS: ALPRAZolam 0.5 MG TAB PO SCH ×3 (09:43→20:04)
[2021-05-30] MEDS: ASPIRIN EC 81 MG TAB PO SCH (09:43)
[2021-05-30] MEDS: traMADol 50 MG TAB PO SCH ×3 (09:44→20:04)
[2021-05-30] MEDS: PROPRANOLOL 40 MG TAB PO SCH ×2 (09:45→21:54)
[2021-05-30] MEDS: levETIRAcetam 500 MG TAB PO SCH ×2 (09:45→22:01)
[2021-05-30] MEDS: FAMOTIDINE 20 MG TAB PO SCH ×2 (09:45→22:01)
[2021-05-30] MEDS ORDERED: predniSONE 20 MG TAB PO SCH (10:00)
[2021-05-30] MEDS ORDERED: WARFARIN NO DOSE TODAY PO ONE (12:33)
[2021-05-30] MEDS: QUEtiapine 100 MG TAB PO SCH (13:54)
--- NOTE | 2021-05-30 16:07 | Event Note ---
Date: 05/30/21 The patient was evaluated this morning, and she was found be hemodynamically stable. #Acute pulmonary embolism #Acute chest pain #History of DVT on warfarin Troponin unremarkable, chest x-ray unremarkable, bilateral lower extremity venous Dopplers unremarkable for acute DVT CT angio chest revealing acute bilateral pulmonary emboli with evidence of right heart strain Home medication of warfarin 7.5 mg daily; however, INR 1.03. Patient endorses being compliant with her anticoagulation. Continue heparin drip and starting warfarin 7.5 mg daily until therapeutic (goal 2.53.5) Counseled patient about the importance of medication compliance; patient expresses understanding Pending TTE to evaluate for right heart strain #Seizure disorder #Anxiety Continue home medications: Keppra 500 mg twice daily, Quetiapine 100 mg every morning and 300 mg nightly, alprazolam 0.5 mg 3 times daily #Microcytic anemia Hemoglobin 8.8 Transfuse if hemoglobin less than 7 or patient become symptomatic #Morbid obesity #Weight loss counseling #Exercise counseling - BMI 39.1 - Counseled patient on the importance of weight loss, incorporating exercise, and dietary changes (lean meats, fresh fruits and vegetables, and water intake). Patient expresses understanding. - Time: + 15 min #Coordination of CARE time: 20 minutes #Advanced care planning -Disease education conducted, care plan discussed, diagnoses discussed, prognosis discussed, and patient acknowledges understanding with care plan -Time: +30 min
--- NOTE | 2021-05-30 16:23 | Electrocardiograph Report ---
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
[2021-05-30] MEDS ORDERED: WARFARIN 7.5 MG TAB PO NR ×2 (17:00)
[2021-05-30] MEDS ORDERED: WARFARIN 7.5 MG TAB PO SCH (17:00)
[2021-05-30] MEDS: IPRATROPIUM/ALBUTEROL SULFATE 3 ML AMPUL.NEB IH SCH ×2 (19:32→20:35)
[2021-05-31] MEDS: IPRATROPIUM/ALBUTEROL SULFATE 3 ML AMPUL.NEB IH SCH ×4 (02:33→21:15)
[2021-05-31] MEDS: HYDROmorphone 1 MG/1 ML INJ IV PRN ×4 (06:07→21:55)
[2021-05-31 06:56] LABS: Hematocrit 28.5 % (30.3-42.9); Hemoglobin 8.9 gm/dl (10.1-14.3); Mean Corpuscular HGB Conc 31 % (30-34); Mean Corpuscular Volume 74 fl (79-97); Platelet Count 330 K/mm3 (140-440); Red Blood Count 3.85 M/mm3 (3.65-5.03)
[2021-05-31 07:08] LABS: BUN/Creatinine Ratio 13; Blood Urea Nitrogen 13 mg/dL (7-17); Calcium 9.4 mg/dL (8.4-10.2); Hemolysis Index 3; INR 0.95 (0.87-1.13)
[2021-05-31 07:09] LABS: Partial Thromboplastin Time 52.6 Sec. (24.2-36.6)
[2021-05-31 07:17] LABS: Red Cell Distribution Width 25.7 % (13.2-15.2)
[2021-05-31] MEDS: traMADol 50 MG TAB PO SCH ×3 (08:33→21:06)
[2021-05-31] MEDS: ALPRAZolam 0.5 MG TAB PO SCH ×3 (08:33→21:06)
[2021-05-31 09:23] LABS: Anisocytosis 2+; Band Neutrophils # (Manual) 0.1 K/mm3; Basophils % (Manual) 0 % (0.0-1.8); Eosinophils % (Manual) 0 % (0.0-4.3); Hypochromasia 1+; Total Cells Counted 100
[2021-05-31 09:24] LABS: Platelet Estimate Consistent w Auto; Spherocytes Few
[2021-05-31] MEDS: PROPRANOLOL 40 MG TAB PO SCH ×2 (10:47→21:08)
[2021-05-31] MEDS: levETIRAcetam 500 MG TAB PO SCH ×2 (10:47→21:08)
[2021-05-31] MEDS: ASPIRIN EC 81 MG TAB PO SCH (10:47)
[2021-05-31] MEDS: FAMOTIDINE 20 MG TAB PO SCH ×2 (10:48→21:08)
[2021-05-31] MEDS: QUEtiapine 100 MG TAB PO SCH (10:51)
[2021-05-31] MEDS: MORPHINE 2 MG/1 ML INJ IV PRN ×2 (10:53→16:27)
--- NOTE | 2021-05-31 12:17 | Progress Note ---
Assessment and Plan Assessment and plan: #Acute pulmonary embolism #Acute chest pain #History of DVT on warfarin Troponin unremarkable, chest x-ray unremarkable, bilateral lower extremity venous Dopplers unremarkable for acute DVT CT angio chest revealing acute bilateral pulmonary emboli with evidence of right heart strain Home medication of warfarin 7.5 mg daily; however, INR 1.03. Patient endorses being compliant with her anticoagulation. Continue heparin drip and bridged warfarin 7.5 mg daily until therapeutic (goal 2.53.5). Current INR 0.95 Counseled patient about the importance of medication compliance; patient expresses understanding Pending TTE read to evaluate for right heart strain #Seizure disorder #Anxiety Continue home medications: Keppra 500 mg twice daily, Quetiapine 100 mg every morning and 300 mg nightly, alprazolam 0.5 mg 3 times daily #Microcytic anemia Hemoglobin 8.8 Transfuse if hemoglobin less than 7 or patient become symptomatic #Morbid obesity #Weight loss counseling #Exercise counseling - BMI 39.1 - Counseled patient on the importance of weight loss, incorporating exercise, and dietary changes (lean meats, fresh fruits and vegetables, and water intake). Patient expresses understanding. - Time: + 15 min #Advanced care planning -Disease education conducted, care plan discussed, diagnoses discussed, prognosis discussed, and patient acknowledges understanding with care plan -Time: +30 min Disposition Plan: Continue medical management Total Time Spent with Patient (Minutes): 45 minutes History Interval history: No acute events overnight. Hospitalist Physical - Constitutional Vitals: Temp Pulse Resp BP Pulse Ox 98.2 F 87 18 133/72 96 05/31/21 08:27 05/31/21 08:27 05/31/21 08:27 05/31/21 08:27 05/31/21 08:35 General appearance: Present: no acute distress, well-nourished HEART Score - HEART Score Troponin: Troponin T < 0.010 ng/mL (0.00-0.029) 05/30/21 04:46 Results - Labs CBC & Chem 7: 05/31/21 06:40 05/31/21 06:40 Labs: Laboratory Last Values WBC 13.0 K/mm3 (4.5-11.0) H 05/31/21 06:40 RBC 3.85 M/mm3 (3.65-5.03) 05/31/21 06:40 Hgb 8.9 gm/dl (10.1-14.3) L 05/31/21 06:40 Hct 28.5 % (30.3-42.9) L 05/31/21 06:40 MCV 74 fl (79-97) L 05/31/21 06:40 MCH 23 pg (28-32) L 05/31/21 06:40 MCHC 31 % (30-34) 05/31/21 06:40 RDW 25.7 % (13.2-15.2) H 05/31/21 06:40 Plt Count 330 K/mm3 (140-440) 05/31/21 06:40 Add Manual Diff Complete 05/31/21 06:40 Total Counted 100 05/31/21 06:40 Seg Neuts % (Manual) 77.0 % (40.0-70.0) H 05/31/21 06:40 Band Neutrophils % 1.0 % 05/31/21 06:40 Lymphocytes % (Manual) 16.0 % (13.4-35.0) 05/31/21 06:40 Reactive Lymphs % (Man) 0 % 05/31/21 06:40 Monocytes % (Manual) 6.0 % (0.0-7.3) 05/31/21 06:40 Eosinophils % (Manual) 0 % (0.0-4.3) 05/31/21 06:40 Basophils % (Manual) 0 % (0.0-1.8) 05/31/21 06:40 Metamyelocytes % 0 % 05/31/21 06:40 Myelocytes % 0 % 05/31/21 06:40 Promyelocytes % 0 % 05/31/21 06:40 Blast Cells % 0 % 05/31/21 06:40 Nucleated RBC % Not Reportable 05/31/21 06:40 Seg Neutrophils # Man 10.0 K/mm3 (1.8-7.7) H 05/31/21 06:40 Band Neutrophils # 0.1 K/mm3 05/31/21 06:40 Lymphocytes # (Manual) 2.1 K/mm3 (1.2-5.4) 05/31/21 06:40 Abs React Lymphs (Man) 0.0 K/mm3 05/31/21 06:40 Monocytes # (Manual) 0.8 K/mm3 (0.0-0.8) 05/31/21 06:40 Eosinophils # (Manual) 0.0 K/mm3 (0.0-0.4) 05/31/21 06:40 Basophils # (Manual) 0.0 K/mm3 (0.0-0.1) 05/31/21 06:40 Metamyelocytes # 0.0 K/mm3 05/31/21 06:40 Myelocytes # 0.0 K/mm3 05/31/21 06:40 Promyelocytes # 0.0 K/mm3 05/31/21 06:40 Blast Cells # 0.0 K/mm3 05/31/21 06:40 WBC Morphology Not Reportable 05/31/21 06:40 Hypersegmented Neuts Not Reportable 05/31/21 06:40 Hyposegmented Neuts Not Reportable 05/31/21 06:40 Hypogranular Neuts Not Reportable 05/31/21 06:40 Smudge Cells Not Reportable 05/31/21 06:40 Toxic Granulation Not Reportable 05/31/21 06:40 Toxic Vacuolation Not Reportable 05/31/21 06:40 Dohle Bodies Not Reportable 05/31/21 06:40 Pelger-Huet Anomaly Not Reportable 05/31/21 06:40 Jaime Rods Not Reportable 05/31/21 06:40 Platelet Estimate Consistent w auto 05/31/21 06:40 Clumped Platelets Not Reportable 05/31/21 06:40 Plt Clumps, EDTA Not Reportable 05/31/21 06:40 Large Platelets Not Reportable 05/31/21 06:40 Giant Platelets Not Reportable 05/31/21 06:40 Platelet Satelliting Not Reportable 05/31/21 06:40 Plt Morphology Comment Not Reportable 05/31/21 06:40 RBC Morphology Not Reportable 05/31/21 06:40 Dimorphic RBCs Not Reportable 05/31/21 06:40 Polychromasia Not Reportable 05/31/21 06:40 Hypochromasia 1+ 05/31/21 06:40 Poikilocytosis Not Reportable 05/31/21 06:40 Anisocytosis 2+ 05/31/21 06:40 Microcytosis Not Reportable 05/31/21 06:40 Macrocytosis Not Reportable 05/31/21 06:40 Spherocytes Few 05/31/21 06:40 Pappenheimer Bodies Not Reportable 05/31/21 06:40 Sickle Cells Not Reportable 05/31/21 06:40 Target Cells Not Reportable 05/31/21 06:40 Tear Drop Cells Not Reportable 05/31/21 06:40 Ovalocytes Not Reportable 05/31/21 06:40 Helmet Cells Not Reportable 05/31/21 06:40 [place] Bodies Not Reportable 05/31/21 06:40 [place] Rings Not Reportable 05/31/21 06:40 Tricia Cells Not Reportable 05/31/21 06:40 Bite Cells Not Reportable 05/31/21 06:40 Crenated Cell Not Reportable 05/31/21 06:40 Elliptocytes Not Reportable 05/31/21 06:40 Acanthocytes (Spur) Not Reportable 05/31/21 06:40 Rouleaux Not Reportable 05/31/21 06:40 Hemoglobin C Crystals Not Reportable 05/31/21 06:40 Schistocytes Not Reportable 05/31/21 06:40 Malaria parasites Not Reportable 05/31/21 06:40 Koffi Bodies Not Reportable 05/31/21 06:40 Hem Pathologist Commnt No 05/31/21 06:40 PT 13.7 Sec. (12.2-14.9) 05/31/21 06:40 INR 0.95 (0.87-1.13) 05/31/21 06:40 APTT 52.6 Sec. (24.2-36.6) H 05/31/21 06:40 Heparin Anti-Xa Level 0.69 U.I./ml (0.3-0.7) 05/31/21 07:45 Sodium 140 mmol/L (137-145) 05/31/21 06:40 Potassium 3.7 mmol/L (3.6-5.0) 05/31/21 06:40 Chloride 106.9 mmol/L (98-107) 05/31/21 06:40 Carbon Dioxide 23 mmol/L (22-30) 05/31/21 06:40 Anion Gap 14 mmol/L 05/31/21 06:40 BUN 13 mg/dL (7-17) 05/31/21 06:40 Creatinine 1.0 mg/dL (0.6-1.2) 05/31/21 06:40 Estimated GFR > 60 ml/min 05/31/21 06:40 BUN/Creatinine Ratio 13 % 05/31/21 06:40 Glucose 90 mg/dL (65-100) 05/31/21 06:40 Calcium 9.4 mg/dL (8.4-10.2) 05/31/21 06:40 Total Bilirubin 0.20 mg/dL (0.1-1.2) 05/29/21 23:24 AST 11 units/L (5-40) 05/29/21 23:24 ALT 10 units/L (7-56) 05/29/21 23:24 Alkaline Phosphatase 88 units/L (35-129) 05/29/21 23:24 Troponin T < 0.010 ng/mL (0.00-0.029) 05/30/21 04:46 Total Protein 6.9 g/dL (6.3-8.2) 05/29/21 23:24 Albumin 3.5 g/dL (3.9-5) L 05/29/21 23:24 Albumin/Globulin Ratio 1.0 % 05/29/21 23:24 Lipase 31 units/L (13-60) 05/30/21 04:41 HCG, Qual Negative (Negative) 05/29/21 23:24 Active Medications - Current Medications Current Medications: Generic Name Dose Route Start Last Admin Trade Name Freq PRN Reason Stop Dose Admin Albuterol 2.5 mg 05/30/21 05:14 Albuterol 2.5 Mg/3 Ml Nebu IH Q3HRT PRN Shortness Of Breath Albuterol/Ipratropium 1 ampul 05/30/21 08:00 05/31/21 08:34 Ipratropium/Albuterol Sulfate 3 Ml Ampul.Neb IH 1 ampul Q6HRT ELLIOTT Administration Alprazolam 0.5 mg 05/30/21 08:00 05/31/21 08:33 Alprazolam 0.5 Mg Tab PO 0.5 mg TID ELLIOTT Administration Aspirin 81 mg 05/30/21 10:00 05/31/21 10:47 Aspirin Ec 81 Mg Tab PO 81 mg QDAY ELLIOTT Administration Famotidine 20 mg 05/30/21 10:00 05/31/21 10:48 Famotidine 20 Mg Tab PO 20 mg BID ELLIOTT Administration Heparin Sodium (Porcine) 4,500 unit 05/30/21 05:14 Heparin 10,000 Units/10 Ml Vial 40 unit/kg (4500 unit) IV Q6H PRN Anti-Xa Assay < 0.1 units/ml Hydromorphone HCl 0.5 mg 05/30/21 05:14 05/31/21 06:07 Hydromorphone 1 Mg/1 Ml Inj IV 0.5 mg Q3H PRN Administration Pain , Severe (7-10) Heparin Sodium/Sodium Chloride 25,000 unit in 500 mls @ 30 mls/hr 05/30/21 06:00 05/31/21 09:30 Heparin/ 0.45% Nacl-25,000 Unit/500 Ml IV 1,500 units/hr TITR ELLIOTT 30 mls/hr Titration Protocol 1,500 UNITS/HR Levetiracetam 500 mg 05/30/21 10:00 05/31/21 10:47 Levetiracetam 500 Mg Tab PO 500 mg BID ELLIOTT Administration Morphine Sulfate 2 mg 05/30/21 05:14 05/31/21 10:53 Morphine 2 Mg/1 Ml Inj IV 2 mg Q4H PRN Administration Pain, Moderate (4-6) Ondansetron HCl 4 mg 05/30/21 05:14 Ondansetron 4 Mg/2 Ml Inj IV Q8H PRN Nausea And Vomiting Propranolol HCl 40 mg 05/30/21 10:00 05/31/21 10:47 Propranolol 40 Mg Tab PO 40 mg BID ELLIOTT Administration Quetiapine Fumarate 100 mg 05/30/21 10:00 05/31/21 10:51 Quetiapine 100 Mg Tab PO 100 mg QAM ELLIOTT Administration Sodium Chloride 10 ml 05/30/21 10:00 05/31/21 10:52 Sodium Chloride 0.9% 10 Ml Flush Syringe IV 10 ml BID ELLIOTT Administration Sodium Chloride 10 ml 05/30/21 05:14 Sodium Chloride 0.9% 10 Ml Flush Syringe IV PRN PRN LINE FLUSH Tramadol HCl 100 mg 05/30/21 08:00 05/31/21 08:33 Tramadol 50 Mg Tab PO 100 mg TID ELLIOTT Administration Warfarin Sodium 7.5 mg 05/31/21 17:00 Warfarin 7.5 Mg Tab PO 06/01/21 16:59 ONCE NR Protocol
[2021-05-31] MEDS: HEPARIN/ 0.45% NACL DRIP 25,000 UNIT/500 ML BAG IV SCH (16:14)
[2021-05-31] MEDS ORDERED: WARFARIN 7.5 MG TAB PO NR (17:00)
[2021-06-01] MEDS: IPRATROPIUM/ALBUTEROL SULFATE 3 ML AMPUL.NEB IH SCH ×4 (03:25→21:10)
[2021-06-01] MEDS: MORPHINE 2 MG/1 ML INJ IV PRN ×4 (05:27→23:15)
--- NOTE | 2021-06-01 08:08 | Progress Note ---
Assessment and Plan Assessment and plan: #Acute pulmonary embolism #Acute chest pain #History of DVT on warfarin Troponin unremarkable, chest x-ray unremarkable, bilateral lower extremity venous Dopplers unremarkable for acute DVT CT angio chest revealing acute bilateral pulmonary emboli with evidence of right heart strain Home medication of warfarin 7.5 mg daily; however, INR 1.03. Patient endorses being compliant with her anticoagulation. Continue heparin drip and bridged warfarin 7.5 mg daily until therapeutic (goal 2.53.5). Counseled patient about the importance of medication compliance; patient expresses understanding TTE without evidence of right heart strain #Seizure disorder #Anxiety Continue home medications: Keppra 500 mg twice daily, Quetiapine 100 mg every morning and 300 mg nightly, alprazolam 0.5 mg 3 times daily #Microcytic anemia Hemoglobin 9.4 Transfuse if hemoglobin less than 7 or patient become symptomatic #Morbid obesity #Weight loss counseling #Exercise counseling - BMI 39.1 - Counseled patient on the importance of weight loss, incorporating exercise, and dietary changes (lean meats, fresh fruits and vegetables, and water intake). Patient expresses understanding. - Time: + 15 min #Advanced care planning -Disease education conducted, care plan discussed, diagnoses discussed, prognos is discussed, and patient acknowledges understanding with care plan -Time: +30 min History Interval history: No acute events overnight. Patient endorses beginning of menstruation. Has mild pleuritic chest pain similar to the pain she had prior to admission. No other complaints at this time. Hospitalist Physical - Physical exam Narrative exam: GENERAL: Well-developed well-nourished. Sitting on the side of the bed in no acute distress. HEENT: Normocephalic. Atraumatic. NECK: Supple. CHEST/LUNGS: CTAB on room air HEART/CARDIOVASCULAR: RRR. No murmur, rubs or gallops appreciated. ABDOMEN: +BS. NT/ND. SKIN: No rashes noted. NEURO: No focal motor deficit. Follows all commands and is ambulatory. MUSCULOSKELETAL: No joint effusion EXTREMITIES: No cyanosis, clubbing or edema. PSYCH: Cooperative. - Constitutional Vitals: Temp Pulse Resp BP Pulse Ox 98.6 F 89 16 130/87 96 06/01/21 04:39 06/01/21 04:39 06/01/21 04:39 06/01/21 04:39 06/01/21 04:39 General appearance: Present: no acute distress, well-nourished HEART Score - HEART Score Troponin: Troponin T < 0.010 ng/mL (0.00-0.029) 05/30/21 04:46 Results - Labs CBC & Chem 7: 06/01/21 09:55 05/31/21 06:40 Labs: Laboratory Last Values WBC 13.0 K/mm3 (4.5-11.0) H 05/31/21 06:40 RBC 3.85 M/mm3 (3.65-5.03) 05/31/21 06:40 Hgb 8.9 gm/dl (10.1-14.3) L 05/31/21 06:40 Hct 28.5 % (30.3-42.9) L 05/31/21 06:40 MCV 74 fl (79-97) L 05/31/21 06:40 MCH 23 pg (28-32) L 05/31/21 06:40 MCHC 31 % (30-34) 05/31/21 06:40 RDW 25.7 % (13.2-15.2) H 05/31/21 06:40 Plt Count 330 K/mm3 (140-440) 05/31/21 06:40 Add Manual Diff Complete 05/31/21 06:40 Total Counted 100 05/31/21 06:40 Seg Neuts % (Manual) 77.0 % (40.0-70.0) H 05/31/21 06:40 Band Neutrophils % 1.0 % 05/31/21 06:40 Lymphocytes % (Manual) 16.0 % (13.4-35.0) 05/31/21 06:40 Reactive Lymphs % (Man) 0 % 05/31/21 06:40 Monocytes % (Manual) 6.0 % (0.0-7.3) 05/31/21 06:40 Eosinophils % (Manual) 0 % (0.0-4.3) 05/31/21 06:40 Basophils % (Manual) 0 % (0.0-1.8) 05/31/21 06:40 Metamyelocytes % 0 % 05/31/21 06:40 Myelocytes % 0 % 05/31/21 06:40 Promyelocytes % 0 % 05/31/21 06:40 Blast Cells % 0 % 05/31/21 06:40 Nucleated RBC % Not Reportable 05/31/21 06:40 Seg Neutrophils # Man 10.0 K/mm3 (1.8-7.7) H 05/31/21 06:40 Band Neutrophils # 0.1 K/mm3 05/31/21 06:40 Lymphocytes # (Manual) 2.1 K/mm3 (1.2-5.4) 05/31/21 06:40 Abs React Lymphs (Man) 0.0 K/mm3 05/31/21 06:40 Monocytes # (Manual) 0.8 K/mm3 (0.0-0.8) 05/31/21 06:40 Eosinophils # (Manual) 0.0 K/mm3 (0.0-0.4) 05/31/21 06:40 Basophils # (Manual) 0.0 K/mm3 (0.0-0.1) 05/31/21 06:40 Metamyelocytes # 0.0 K/mm3 05/31/21 06:40 Myelocytes # 0.0 K/mm3 05/31/21 06:40 Promyelocytes # 0.0 K/mm3 05/31/21 06:40 Blast Cells # 0.0 K/mm3 05/31/21 06:40 WBC Morphology Not Reportable 05/31/21 06:40 Hypersegmented Neuts Not Reportable 05/31/21 06:40 Hyposegmented Neuts Not Reportable 05/31/21 06:40 Hypogranular Neuts Not Reportable 05/31/21 06:40 Smudge Cells Not Reportable 05/31/21 06:40 Toxic Granulation Not Reportable 05/31/21 06:40 Toxic Vacuolation Not Reportable 05/31/21 06:40 Dohle Bodies Not Reportable 05/31/21 06:40 Pelger-Huet Anomaly Not Reportable 05/31/21 06:40 Jaime Rods Not Reportable 05/31/21 06:40 Platelet Estimate Consistent w auto 05/31/21 06:40 Clumped Platelets Not Reportable 05/31/21 06:40 Plt Clumps, EDTA Not Reportable 05/31/21 06:40 Large Platelets Not Reportable 05/31/21 06:40 Giant Platelets Not Reportable 05/31/21 06:40 Platelet Satelliting Not Reportable 05/31/21 06:40 Plt Morphology Comment Not Reportable 05/31/21 06:40 RBC Morphology Not Reportable 05/31/21 06:40 Dimorphic RBCs Not Reportable 05/31/21 06:40 Polychromasia Not Reportable 05/31/21 06:40 Hypochromasia 1+ 05/31/21 06:40 Poikilocytosis Not Reportable 05/31/21 06:40 Anisocytosis 2+ 05/31/21 06:40 Microcytosis Not Reportable 05/31/21 06:40 Macrocytosis Not Reportable 05/31/21 06:40 Spherocytes Few 05/31/21 06:40 Pappenheimer Bodies Not Reportable 05/31/21 06:40 Sickle Cells Not Reportable 05/31/21 06:40 Target Cells Not Reportable 05/31/21 06:40 Tear Drop Cells Not Reportable 05/31/21 06:40 Ovalocytes Not Reportable 05/31/21 06:40 Helmet Cells Not Reportable 05/31/21 06:40 [place] Bodies Not Reportable 05/31/21 06:40 [place] Rings Not Reportable 05/31/21 06:40 [place] Cells Not Reportable 05/31/21 06:40 Bite Cells Not Reportable 05/31/21 06:40 Crenated Cell Not Reportable 05/31/21 06:40 Elliptocytes Not Reportable 05/31/21 06:40 Acanthocytes (Spur) Not Reportable 05/31/21 06:40 Rouleaux Not Reportable 05/31/21 06:40 Hemoglobin C Crystals Not Reportable 05/31/21 06:40 Schistocytes Not Reportable 05/31/21 06:40 Malaria parasites Not Reportable 05/31/21 06:40 Koffi Bodies Not Reportable 05/31/21 06:40 Hem Pathologist Commnt No 05/31/21 06:40 PT 13.7 Sec. (12.2-14.9) 05/31/21 06:40 INR 0.95 (0.87-1.13) 05/31/21 06:40 APTT 52.6 Sec. (24.2-36.6) H 05/31/21 06:40 Heparin Anti-Xa Level 0.69 U.I./ml (0.3-0.7) 05/31/21 07:45 Sodium 140 mmol/L (137-145) 05/31/21 06:40 Potassium 3.7 mmol/L (3.6-5.0) 05/31/21 06:40 Chloride 106.9 mmol/L (98-107) 05/31/21 06:40 Carbon Dioxide 23 mmol/L (22-30) 05/31/21 06:40 Anion Gap 14 mmol/L 05/31/21 06:40 BUN 13 mg/dL (7-17) 05/31/21 06:40 Creatinine 1.0 mg/dL (0.6-1.2) 05/31/21 06:40 Estimated GFR > 60 ml/min 05/31/21 06:40 BUN/Creatinine Ratio 13 % 05/31/21 06:40 Glucose 90 mg/dL (65-100) 05/31/21 06:40 Calcium 9.4 mg/dL (8.4-10.2) 05/31/21 06:40 Total Bilirubin 0.20 mg/dL (0.1-1.2) 05/29/21 23:24 AST 11 units/L (5-40) 05/29/21 23:24 ALT 10 units/L (7-56) 05/29/21 23:24 Alkaline Phosphatase 88 units/L (35-129) 05/29/21 23:24 Troponin T < 0.010 ng/mL (0.00-0.029) 05/30/21 04:46 Total Protein 6.9 g/dL (6.3-8.2) 05/29/21 23:24 Albumin 3.5 g/dL (3.9-5) L 05/29/21 23:24 Albumin/Globulin Ratio 1.0 % 05/29/21 23:24 Lipase 31 units/L (13-60) 05/30/21 04:41 HCG, Qual Negative (Negative) 05/29/21 23:24 Active Medications - Current Medications Current Medications: Generic Name Dose Route Start Last Admin Trade Name Freq PRN Reason Stop Dose Admin Albuterol 2.5 mg 05/30/21 05:14 Albuterol 2.5 Mg/3 Ml Nebu IH Q3HRT PRN Shortness Of Breath Albuterol/Ipratropium 1 ampul 05/30/21 08:00 04/12/22 03:25 Ipratropium/Albuterol Sulfate 3 Ml Ampul.Neb IH Not Given Q6HRT ELLIOTT Alprazolam 0.5 mg 05/30/21 08:00 05/31/21 21:06 Alprazolam 0.5 Mg Tab PO 0.5 mg TID ELLIOTT Administration Aspirin 81 mg 05/30/21 10:00 05/31/21 10:47 Aspirin Ec 81 Mg Tab PO 81 mg QDAY ELLIOTT Administration Famotidine 20 mg 05/30/21 10:00 05/31/21 21:08 Famotidine 20 Mg Tab PO 20 mg BID ELLIOTT Administration Heparin Sodium (Porcine) 4,500 unit 05/30/21 05:14 Heparin 10,000 Units/10 Ml Vial 40 unit/kg (4500 unit) IV Q6H PRN Anti-Xa Assay < 0.1 units/ml Hydromorphone HCl 0.5 mg 05/30/21 05:14 05/31/21 21:55 Hydromorphone 1 Mg/1 Ml Inj IV 0.5 mg Q3H PRN Administration Pain , Severe (7-10) Heparin Sodium/Sodium Chloride 25,000 unit in 500 mls @ 30 mls/hr 05/30/21 06:00 05/31/21 16:14 Heparin/ 0.45% Nacl-25,000 Unit/500 Ml IV 1,500 units/hr TITR ELLIOTT 30 mls/hr Administration Protocol 1,500 UNITS/HR Levetiracetam 500 mg 05/30/21 10:00 05/31/21 21:08 Levetiracetam 500 Mg Tab PO 500 mg BID ELLIOTT Administration Morphine Sulfate 2 mg 05/30/21 05:14 06/01/21 05:27 Morphine 2 Mg/1 Ml Inj IV 2 mg Q4H PRN Administration Pain, Moderate (4-6) Ondansetron HCl 4 mg 05/30/21 05:14 Ondansetron 4 Mg/2 Ml Inj IV Q8H PRN Nausea And Vomiting Propranolol HCl 40 mg 05/30/21 10:00 05/31/21 21:08 Propranolol 40 Mg Tab PO 40 mg BID ELLIOTT Administration Quetiapine Fumarate 100 mg 05/30/21 10:00 05/31/21 10:51 Quetiapine 100 Mg Tab PO 100 mg QAM ELLIOTT Administration Sodium Chloride 10 ml 05/30/21 10:00 05/31/21 21:10 Sodium Chloride 0.9% 10 Ml Flush Syringe IV 10 ml BID ELLIOTT Administration Sodium Chloride 10 ml 05/30/21 05:14 Sodium Chloride 0.9% 10 Ml Flush Syringe IV PRN PRN LINE FLUSH Tramadol HCl 100 mg 05/30/21 08:00 05/31/21 21:06 Tramadol 50 Mg Tab PO 100 mg TID ELLIOTT Administration Warfarin Sodium 7.5 mg 05/31/21 17:00 05/31/21 16:48 Warfarin 7.5 Mg Tab PO 06/01/21 16:59 7.5 mg ONCE NR Administration Protocol Nutrition/Malnutrition Assess - Dietary Evaluation Nutrition/Malnutrition Findings: Nutrition Notes Start: 05/31/21 12:39 Freq: Status: Active Protocol: Document 05/31/21 12:39 JAMES (Rec: 05/31/21 12:50 JAMES [id number]) Nutrition Notes Need for Assessment generated from: Education Initial or Follow up Assessment Current Diagnosis Hypertension Other Pertinent Diagnosis PE, Chest Pain, Cardiomyopathy , Bilateral LE Swelling. DVT, GERD, SOB, Seiz Current Diet Cardiac Diet (since B 05/30). Labs/Tests 05/31: WNL. Pertinent Medications 05/31: Warfarin 7.5 mg, others nutritionally unremarkable. Height 5 ft 7 in Weight 111 kg [place] Body Weight (kg) 61.36 BMI 38.3 Intake Prior to Admission Good Weight change and time frame Pt denies having loss body weight FOUND[facility]. Weight Status Obese Subjective/Other Information RD consult for warfarine use. No reports available on Pt's PO intake of meals at the time , will assess at F/U. Pt is on Nasal Cannula, O2 stauration @ 95%, according to Physical Assessment History notes. Pt has been using Coumadin since 01/2017, according to Progress notes, not a candidate for nutrition education. Pt lives at home with family, according to Progress notes. Percent of energy/protein needs met: Prescribed Cardiac Diet provides for energy/protein needs (2,230 Kcal/85 g) during LOS. Burn Absent Trauma Absent GI Symptoms None Food Allergy Yes Skin Integrity/Comment Assessment WNL. Minimum of two criteria No #1 Nutrition Diagnosis No nutrition diagnosis at this time Comments: Will assess Pt's PO intake of meals at F/U. Is patient on ventilator? No Is Patient Ambulatory and/or Out of Bed Yes REE-([place]-St. Jeor-ambulatory/OOB) [ 2356.419 NUTR.MSJOOB] Kcal/Kg value to use for calculation 16 Approximate Energy Requirements Using 1776 kcal/Kg Calculation Used for Recommendations Kcal/kg Additional Notes Protein: 0.8-1 g/Kg AdjBW; 68- 86 g/day. Fluids: 1 ml/Kcal, or as per MD. Nutrition Intervention Change Diet Order: Continue Cardiac Diet. Follow-Up By: 06/07/21 Additional Comments Continue monitoring food tolerance, %PO intake of meals , and BM.
[2021-06-01] MEDS: traMADol 50 MG TAB PO SCH ×3 (08:28→22:01)
[2021-06-01] MEDS: ALPRAZolam 0.5 MG TAB PO SCH ×3 (08:29→22:02)
[2021-06-01] MEDS: FAMOTIDINE 20 MG TAB PO SCH ×2 (09:10→22:02)
[2021-06-01] MEDS: ASPIRIN EC 81 MG TAB PO SCH (09:10)
[2021-06-01] MEDS: PROPRANOLOL 40 MG TAB PO SCH ×2 (09:12→22:06)
[2021-06-01] MEDS: QUEtiapine 100 MG TAB PO SCH (09:13)
[2021-06-01] MEDS: levETIRAcetam 500 MG TAB PO SCH ×2 (09:20→22:02)
[2021-06-01 11:40] LABS: Hematocrit 30.8 % (30.3-42.9); Hemoglobin 9.4 gm/dl (10.1-14.3)
[2021-06-01] MEDS: HEPARIN/ 0.45% NACL DRIP 25,000 UNIT/500 ML BAG IV SCH (12:45)
[2021-06-01 13:47] LABS: INR 0.92 (0.87-1.13)
[2021-06-01] MEDS ORDERED: WARFARIN 7.5 MG TAB PO SCH (17:00)
[2021-06-02] MEDS: HEPARIN/ 0.45% NACL DRIP 25,000 UNIT/500 ML BAG IV SCH ×2 (04:33→21:43)
[2021-06-02] MEDS: MORPHINE 2 MG/1 ML INJ IV PRN ×3 (05:39→18:16)
[2021-06-02] MEDS: IPRATROPIUM/ALBUTEROL SULFATE 3 ML AMPUL.NEB IH SCH ×4 (05:45→20:08)
[2021-06-02 06:42] LABS: INR 0.93 (0.87-1.13)
[2021-06-02] MEDS: ASPIRIN EC 81 MG TAB PO SCH (09:36)
[2021-06-02] MEDS: QUEtiapine 100 MG TAB PO SCH (09:36)
[2021-06-02] MEDS: PROPRANOLOL 40 MG TAB PO SCH ×2 (09:36→21:25)
[2021-06-02] MEDS: traMADol 50 MG TAB PO SCH ×3 (09:36→21:23)
[2021-06-02] MEDS: levETIRAcetam 500 MG TAB PO SCH ×2 (09:37→21:25)
[2021-06-02] MEDS: FAMOTIDINE 20 MG TAB PO SCH ×2 (09:37→21:25)
[2021-06-02] MEDS: ALPRAZolam 0.5 MG TAB PO SCH ×3 (09:37→21:23)
--- NOTE | 2021-06-02 12:26 | Progress Note ---
Assessment and Plan Assessment and plan: #Acute pulmonary embolism #Acute chest pain #History of DVT on warfarin Troponin unremarkable, chest x-ray unremarkable, bilateral lower extremity venous Dopplers unremarkable for acute DVT CT angio chest revealing acute bilateral pulmonary emboli with evidence of right heart strain Home medication of warfarin 7.5 mg daily; however, INR 1.03. Patient endorses being compliant with her anticoagulation. Continue heparin drip and bridged warfarin 7.5 mg daily until therapeutic (goal 2.53.5). Counseled patient about the importance of medication compliance; patient expresses understanding TTE without evidence of right heart strain #Seizure disorder #Anxiety Continue home medications: Keppra 500 mg twice daily, Quetiapine 100 mg every morning and 300 mg nightly, alprazolam 0.5 mg 3 times daily #Microcytic anemia -stable Transfuse if hemoglobin less than 7 or patient become symptomatic #Morbid obesity #Weight loss counseling #Exercise counseling - BMI 39.1 - Counseled patient on the importance of weight loss, incorporating exercise, and dietary changes (lean meats, fresh fruits and vegetables, and water intake). Patient expresses understanding. #Advanced care planning -Disease education conducted, care plan discussed, diagnoses discussed, prognosis discussed, and patient acknowledges understanding with care plan -Time: +30 min History Interval history: No acute events overnight. Patient sleeping at time of interview. Denies mucosal bleeding aside from her menstrual cycle. Not having chest pain or shortness of breath at this time. Hospitalist Physical - Physical exam Narrative exam: GENERAL: Well-developed well-nourished. In no acute distress. CHEST/LUNGS: CTAB on room air HEART/CARDIOVASCULAR: RRR. No murmur, rubs or gallops appreciated. ABDOMEN: +BS. NT/ND. SKIN: No rashes noted. NEURO: No focal motor deficit. MUSCULOSKELETAL: No joint effusion EXTREMITIES: No cyanosis, clubbing or edema. PSYCH: Cooperative. - Constitutional Vitals: Temp Pulse Resp BP Pulse Ox 98.9 F 80 18 123/58 97 06/02/21 07:49 06/02/21 08:00 06/02/21 08:00 06/02/21 07:49 06/02/21 08:11 General appearance: Present: no acute distress, well-nourished HEART Score - HEART Score Troponin: Troponin T < 0.010 ng/mL (0.00-0.029) 05/30/21 04:46 Results - Labs CBC & Chem 7: 06/01/21 09:55 05/31/21 06:40 Labs: Laboratory Last Values WBC 13.0 K/mm3 (4.5-11.0) H 05/31/21 06:40 RBC 3.85 M/mm3 (3.65-5.03) 05/31/21 06:40 Hgb 9.4 gm/dl (10.1-14.3) L 06/01/21 09:55 Hct 30.8 % (30.3-42.9) 06/01/21 09:55 MCV 74 fl (79-97) L 05/31/21 06:40 MCH 23 pg (28-32) L 05/31/21 06:40 MCHC 31 % (30-34) 05/31/21 06:40 RDW 25.7 % (13.2-15.2) H 05/31/21 06:40 Plt Count 285 K/mm3 (140-440) 06/01/21 09:55 Add Manual Diff Complete 05/31/21 06:40 Total Counted 100 05/31/21 06:40 Seg Neuts % (Manual) 77.0 % (40.0-70.0) H 05/31/21 06:40 Band Neutrophils % 1.0 % 05/31/21 06:40 Lymphocytes % (Manual) 16.0 % (13.4-35.0) 05/31/21 06:40 Reactive Lymphs % (Man) 0 % 05/31/21 06:40 Monocytes % (Manual) 6.0 % (0.0-7.3) 05/31/21 06:40 Eosinophils % (Manual) 0 % (0.0-4.3) 05/31/21 06:40 Basophils % (Manual) 0 % (0.0-1.8) 05/31/21 06:40 Metamyelocytes % 0 % 05/31/21 06:40 Myelocytes % 0 % 05/31/21 06:40 Promyelocytes % 0 % 05/31/21 06:40 Blast Cells % 0 % 05/31/21 06:40 Nucleated RBC % Not Reportable 05/31/21 06:40 Seg Neutrophils # Man 10.0 K/mm3 (1.8-7.7) H 05/31/21 06:40 Band Neutrophils # 0.1 K/mm3 05/31/21 06:40 Lymphocytes # (Manual) 2.1 K/mm3 (1.2-5.4) 05/31/21 06:40 Abs React Lymphs (Man) 0.0 K/mm3 05/31/21 06:40 Monocytes # (Manual) 0.8 K/mm3 (0.0-0.8) 05/31/21 06:40 Eosinophils # (Manual) 0.0 K/mm3 (0.0-0.4) 05/31/21 06:40 Basophils # (Manual) 0.0 K/mm3 (0.0-0.1) 05/31/21 06:40 Metamyelocytes # 0.0 K/mm3 05/31/21 06:40 Myelocytes # 0.0 K/mm3 05/31/21 06:40 Promyelocytes # 0.0 K/mm3 05/31/21 06:40 Blast Cells # 0.0 K/mm3 05/31/21 06:40 WBC Morphology Not Reportable 05/31/21 06:40 Hypersegmented Neuts Not Reportable 05/31/21 06:40 Hyposegmented Neuts Not Reportable 05/31/21 06:40 Hypogranular Neuts Not Reportable 05/31/21 06:40 Smudge Cells Not Reportable 05/31/21 06:40 Toxic Granulation Not Reportable 05/31/21 06:40 Toxic Vacuolation Not Reportable 05/31/21 06:40 Dohle Bodies Not Reportable 05/31/21 06:40 Pelger-Huet Anomaly Not Reportable 05/31/21 06:40 Jaime Rods Not Reportable 05/31/21 06:40 Platelet Estimate Consistent w auto 05/31/21 06:40 Clumped Platelets Not Reportable 05/31/21 06:40 Plt Clumps, EDTA Not Reportable 05/31/21 06:40 Large Platelets Not Reportable 05/31/21 06:40 Giant Platelets Not Reportable 05/31/21 06:40 Platelet Satelliting Not Reportable 05/31/21 06:40 Plt Morphology Comment Not Reportable 05/31/21 06:40 RBC Morphology Not Reportable 05/31/21 06:40 Dimorphic RBCs Not Reportable 05/31/21 06:40 Polychromasia Not Reportable 05/31/21 06:40 Hypochromasia 1+ 05/31/21 06:40 Poikilocytosis Not Reportable 05/31/21 06:40 Anisocytosis 2+ 05/31/21 06:40 Microcytosis Not Reportable 05/31/21 06:40 Macrocytosis Not Reportable 05/31/21 06:40 Spherocytes Few 05/31/21 06:40 Pappenheimer Bodies Not Reportable 05/31/21 06:40 Sickle Cells Not Reportable 05/31/21 06:40 Target Cells Not Reportable 05/31/21 06:40 Tear Drop Cells Not Reportable 05/31/21 06:40 Ovalocytes Not Reportable 05/31/21 06:40 Helmet Cells Not Reportable 05/31/21 06:40 Graves-[place] Bodies Not Reportable 05/31/21 06:40 [place] Rings Not Reportable 05/31/21 06:40 [place] Cells Not Reportable 05/31/21 06:40 Bite Cells Not Reportable 05/31/21 06:40 Crenated Cell Not Reportable 05/31/21 06:40 Elliptocytes Not Reportable 05/31/21 06:40 Acanthocytes (Spur) Not Reportable 05/31/21 06:40 Rouleaux Not Reportable 05/31/21 06:40 Hemoglobin C Crystals Not Reportable 05/31/21 06:40 Schistocytes Not Reportable 05/31/21 06:40 Malaria parasites Not Reportable 05/31/21 06:40 Koffi Bodies Not Reportable 05/31/21 06:40 Hem Pathologist Commnt No 05/31/21 06:40 PT 13.5 Sec. (12.2-14.9) 06/02/21 06:15 INR 0.93 (0.87-1.13) 06/02/21 06:15 APTT 52.6 Sec. (24.2-36.6) H 05/31/21 06:40 Heparin Anti-Xa Level 0.25 U.I./ml (0.3-0.7) L 06/02/21 06:15 Sodium 140 mmol/L (137-145) 05/31/21 06:40 Potassium 3.7 mmol/L (3.6-5.0) 05/31/21 06:40 Chloride 106.9 mmol/L (98-107) 05/31/21 06:40 Carbon Dioxide 23 mmol/L (22-30) 05/31/21 06:40 Anion Gap 14 mmol/L 05/31/21 06:40 BUN 13 mg/dL (7-17) 05/31/21 06:40 Creatinine 1.0 mg/dL (0.6-1.2) 05/31/21 06:40 Estimated GFR > 60 ml/min 05/31/21 06:40 BUN/Creatinine Ratio 13 % 05/31/21 06:40 Glucose 90 mg/dL (65-100) 05/31/21 06:40 Calcium 9.4 mg/dL (8.4-10.2) 05/31/21 06:40 Total Bilirubin 0.20 mg/dL (0.1-1.2) 05/29/21 23:24 AST 11 units/L (5-40) 05/29/21 23:24 ALT 10 units/L (7-56) 05/29/21 23:24 Alkaline Phosphatase 88 units/L (35-129) 05/29/21 23:24 Troponin T < 0.010 ng/mL (0.00-0.029) 05/30/21 04:46 Total Protein 6.9 g/dL (6.3-8.2) 05/29/21 23:24 Albumin 3.5 g/dL (3.9-5) L 05/29/21 23:24 Albumin/Globulin Ratio 1.0 % 05/29/21 23:24 Lipase 31 units/L (13-60) 05/30/21 04:41 HCG, Qual Negative (Negative) 05/29/21 23:24 Rojas/IV: Voiding Method Toilet Active Medications - Current Medications Current Medications: Generic Name Dose Route Start Last Admin Trade Name Freq PRN Reason Stop Dose Admin Albuterol 2.5 mg 05/30/21 05:14 Albuterol 2.5 Mg/3 Ml Nebu IH Q3HRT PRN Shortness Of Breath Albuterol/Ipratropium 1 ampul 05/30/21 08:00 06/02/21 08:10 Ipratropium/Albuterol Sulfate 3 Ml Ampul.Neb IH 1 ampul Q6HRT ELLIOTT Administration Alprazolam 0.5 mg 05/30/21 08:00 06/02/21 09:37 Alprazolam 0.5 Mg Tab PO 0.5 mg TID ELLIOTT Administration Aspirin 81 mg 05/30/21 10:00 06/02/21 09:36 Aspirin Ec 81 Mg Tab PO 81 mg QDAY ELLIOTT Administration Famotidine 20 mg 05/30/21 10:00 06/02/21 09:37 Famotidine 20 Mg Tab PO 20 mg BID ELLIOTT Administration Heparin Sodium (Porcine) 4,500 unit 05/30/21 05:14 Heparin 10,000 Units/10 Ml Vial 40 unit/kg (4500 unit) IV Q6H PRN Anti-Xa Assay < 0.1 units/ml Heparin Sodium/Sodium Chloride 25,000 unit in 500 mls @ 30 mls/hr 05/30/21 06:00 06/02/21 07:18 Heparin/ 0.45% Nacl-25,000 Unit/500 Ml IV 1,800 units/hr TITR ELLIOTT 36 mls/hr Titration Protocol 1,500 UNITS/HR Ketorolac Tromethamine 15 mg 06/01/21 11:00 Ketorolac 30 Mg/1 Ml Inj IV 06/06/21 10:59 Q6H PRN Pain, Mild (1-3) Levetiracetam 500 mg 05/30/21 10:00 06/02/21 09:37 Levetiracetam 500 Mg Tab PO 500 mg BID ELLIOTT Administration Morphine Sulfate 2 mg 06/01/21 11:00 06/02/21 11:37 Morphine 2 Mg/1 Ml Inj IV 2 mg Q6H PRN Administration Pain, Moderate (4-6) Ondansetron HCl 4 mg 05/30/21 05:14 Ondansetron 4 Mg/2 Ml Inj IV Q8H PRN Nausea And Vomiting Propranolol HCl 40 mg 05/30/21 10:00 06/02/21 09:36 Propranolol 40 Mg Tab PO 40 mg BID ELLIOTT Administration Quetiapine Fumarate 100 mg 05/30/21 10:00 06/02/21 09:36 Quetiapine 100 Mg Tab PO 100 mg QAM ELLIOTT Administration Sodium Chloride 10 ml 05/30/21 10:00 06/02/21 09:37 Sodium Chloride 0.9% 10 Ml Flush Syringe IV 10 ml BID ELLIOTT Administration Sodium Chloride 10 ml 05/30/21 05:14 Sodium Chloride 0.9% 10 Ml Flush Syringe IV PRN PRN LINE FLUSH Tramadol HCl 100 mg 05/30/21 08:00 06/02/21 09:36 Tramadol 50 Mg Tab PO 100 mg TID ELLIOTT Administration Warfarin Sodium 10 mg 06/02/21 17:00 Warfarin 10 Mg Tab PO 06/03/21 16:59 ONCE@1700 [facility] Nutrition/Malnutrition Assess - Dietary Evaluation Nutrition/Malnutrition Findings: Nutrition Notes Start: 05/31/21 12:39 Freq: Status: Active Protocol: Document 05/31/21 12:39 JAMES (Rec: 05/31/21 12:50 JAMES [id number]) Nutrition Notes Need for Assessment generated from: Education Initial or Follow up Assessment Current Diagnosis Hypertension Other Pertinent Diagnosis PE, Chest Pain, Cardiomyopathy , Bilateral LE Swelling. DVT, GERD, SOB, Seiz Current Diet Cardiac Diet (since B 05/30). Labs/Tests 05/31: WNL. Pertinent Medications 05/31: Warfarin 7.5 mg, others nutritionally unremarkable. 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 Weight Status Obese Subjective/Other Information RD consult for warfarine use. No reports available on Pt's PO intake of meals at the time , will assess at F/U. Pt is on Nasal Cannula, O2 stauration @ 95%, according to Physical Assessment History notes. Pt has been using Coumadin since 01/2017, according to Progress notes, not a candidate for nutrition education. Pt lives at home with family, according to Progress notes. Percent of energy/protein needs met: Prescribed Cardiac Diet provides for energy/protein needs (2,230 Kcal/85 g) during LOS. Burn Absent Trauma Absent GI Symptoms None Food Allergy Yes Skin Integrity/Comment Assessment WNL. Minimum of two criteria No #1 Nutrition Diagnosis No nutrition diagnosis at this time Comments: Will assess Pt's PO intake of meals at F/U. Is patient on ventilator? No Is Patient Ambulatory and/or Out of Bed Yes REE-([place]-St. Jeor-ambulatory/OOB) [ 2356.419 NUTR.[email or web address]] Kcal/Kg value to use for calculation 16 Approximate Energy Requirements Using 1776 kcal/Kg Calculation Used for Recommendations Kcal/kg Additional Notes Protein: 0.8-1 g/Kg AdjBW; 68- 86 g/day. Fluids: 1 ml/Kcal, or as per MD. Nutrition Intervention Change Diet Order: Continue Cardiac Diet. Follow-Up By: 06/07/21 Additional Comments Continue monitoring food tolerance, %PO intake of meals , and BM.
[2021-06-02] MEDS ORDERED: WARFARIN 10 MG TAB PO SCH (17:00)
[2021-06-03] MEDS: MORPHINE 2 MG/1 ML INJ IV PRN ×3 (01:36→17:31)
[2021-06-03] MEDS: KETOROLAC 30 MG/1 ML INJ IV PRN ×3 (05:36→22:19)
[2021-06-03] MEDS: IPRATROPIUM/ALBUTEROL SULFATE 3 ML AMPUL.NEB IH SCH (06:15)
[2021-06-03] MEDS: ALPRAZolam 0.5 MG TAB PO SCH ×3 (08:07→20:55)
[2021-06-03] MEDS: traMADol 50 MG TAB PO SCH ×3 (08:07→20:54)
[2021-06-03 08:31] LABS: Hemoglobin 8.5 gm/dl (10.1-14.3)
[2021-06-03 08:50] LABS: INR 0.96 (0.87-1.13)
[2021-06-03] MEDS: levETIRAcetam 500 MG TAB PO SCH ×2 (09:37→22:23)
[2021-06-03] MEDS: QUEtiapine 100 MG TAB PO SCH (09:37)
[2021-06-03] MEDS: FAMOTIDINE 20 MG TAB PO SCH ×2 (09:37→22:23)
[2021-06-03] MEDS: PROPRANOLOL 40 MG TAB PO SCH ×2 (09:38→22:24)
[2021-06-03] MEDS: ASPIRIN EC 81 MG TAB PO SCH (09:38)
[2021-06-03] MEDS ORDERED: HEPARIN 10,000 UNITS/10 ML VIAL IV PRN (09:46)
--- NOTE | 2021-06-03 12:18 | Progress Note ---
Assessment and Plan Assessment and plan: #Acute pulmonary embolism #Acute chest pain #History of DVT on warfarin Troponin unremarkable, chest x-ray unremarkable, bilateral lower extremity venous Dopplers unremarkable for acute DVT CT angio chest revealing acute bilateral pulmonary emboli with evidence of right heart strain Home medication of warfarin 7.5 mg daily; however, INR 1.03. Patient endorses being compliant with her anticoagulation. Continue heparin drip and bridged warfarin daily until therapeutic (goal 2 .53.5). Counseled patient about the importance of medication compliance; patient expresses understanding TTE without evidence of right heart strain #Seizure disorder #Anxiety Continue home medications: Keppra 500 mg twice daily, Quetiapine 100 mg every morning and 300 mg nightly, alprazolam 0.5 mg 3 times daily #Microcytic anemia -stable Transfuse if hemoglobin less than 7 or patient become symptomatic #Morbid obesity #Weight loss counseling #Exercise counseling - BMI 39.1 - Counseled patient on the importance of weight loss, incorporating exercise, and dietary changes (lean meats, fresh fruits and vegetables, and water intake). Patient expresses understanding. #Advanced care planning -Disease education conducted, care plan discussed, diagnoses discussed, prognosis discussed, and patient acknowledges understanding with care plan -Time: +30 min History Interval history: No acute events overnight. Patient has no complaints at this time. Hospitalist Physical - Physical exam Narrative exam: GENERAL: Well-developed well-nourished. In no acute distress. CHEST/LUNGS: CTAB on room air HEART/CARDIOVASCULAR: RRR. No murmur, rubs or gallops appreciated. ABDOMEN: +BS. NT/ND. SKIN: No rashes noted. NEURO: No focal motor deficit. MUSCULOSKELETAL: No joint effusion EXTREMITIES: No cyanosis, clubbing or edema. PSYCH: Cooperative. - Constitutional Vitals: Temp Pulse Resp BP Pulse Ox 97.0 F L 64 18 110/92 98 06/03/21 08:04 06/03/21 08:04 06/03/21 08:04 06/03/21 09:38 06/03/21 10:18 General appearance: Present: no acute distress, well-nourished HEART Score - HEART Score Troponin: Troponin T < 0.010 ng/mL (0.00-0.029) 05/30/21 04:46 Results - Labs CBC & Chem 7: 06/03/21 Unknown 05/31/21 06:40 Labs: Laboratory Last Values WBC 13.0 K/mm3 (4.5-11.0) H 05/31/21 06:40 RBC 3.85 M/mm3 (3.65-5.03) 05/31/21 06:40 Hgb 8.5 gm/dl (10.1-14.3) L 06/03/21 Unknown Hct 28.0 % (30.3-42.9) L 06/03/21 Unknown MCV 74 fl (79-97) L 05/31/21 06:40 MCH 23 pg (28-32) L 05/31/21 06:40 MCHC 31 % (30-34) 05/31/21 06:40 RDW 25.7 % (13.2-15.2) H 05/31/21 06:40 Plt Count 280 K/mm3 (140-440) 06/03/21 Unknown Add Manual Diff Complete 05/31/21 06:40 Total Counted 100 05/31/21 06:40 Seg Neuts % (Manual) 77.0 % (40.0-70.0) H 05/31/21 06:40 Band Neutrophils % 1.0 % 05/31/21 06:40 Lymphocytes % (Manual) 16.0 % (13.4-35.0) 05/31/21 06:40 Reactive Lymphs % (Man) 0 % 05/31/21 06:40 Monocytes % (Manual) 6.0 % (0.0-7.3) 05/31/21 06:40 Eosinophils % (Manual) 0 % (0.0-4.3) 05/31/21 06:40 Basophils % (Manual) 0 % (0.0-1.8) 05/31/21 06:40 Metamyelocytes % 0 % 05/31/21 06:40 Myelocytes % 0 % 05/31/21 06:40 Promyelocytes % 0 % 05/31/21 06:40 Blast Cells % 0 % 05/31/21 06:40 Nucleated RBC % Not Reportable 05/31/21 06:40 Seg Neutrophils # Man 10.0 K/mm3 (1.8-7.7) H 05/31/21 06:40 Band Neutrophils # 0.1 K/mm3 05/31/21 06:40 Lymphocytes # (Manual) 2.1 K/mm3 (1.2-5.4) 05/31/21 06:40 Abs React Lymphs (Man) 0.0 K/mm3 05/31/21 06:40 Monocytes # (Manual) 0.8 K/mm3 (0.0-0.8) 05/31/21 06:40 Eosinophils # (Manual) 0.0 K/mm3 (0.0-0.4) 05/31/21 06:40 Basophils # (Manual) 0.0 K/mm3 (0.0-0.1) 05/31/21 06:40 Metamyelocytes # 0.0 K/mm3 05/31/21 06:40 Myelocytes # 0.0 K/mm3 05/31/21 06:40 Promyelocytes # 0.0 K/mm3 05/31/21 06:40 Blast Cells # 0.0 K/mm3 05/31/21 06:40 WBC Morphology Not Reportable 05/31/21 06:40 Hypersegmented Neuts Not Reportable 05/31/21 06:40 Hyposegmented Neuts Not Reportable 05/31/21 06:40 Hypogranular Neuts Not Reportable 05/31/21 06:40 Smudge Cells Not Reportable 05/31/21 06:40 Toxic Granulation Not Reportable 05/31/21 06:40 Toxic Vacuolation Not Reportable 05/31/21 06:40 Dohle Bodies Not Reportable 05/31/21 06:40 Pelger-Huet Anomaly Not Reportable 05/31/21 06:40 Jaime Rods Not Reportable 05/31/21 06:40 Platelet Estimate Consistent w auto 05/31/21 06:40 Clumped Platelets Not Reportable 05/31/21 06:40 Plt Clumps, EDTA Not Reportable 05/31/21 06:40 Large Platelets Not Reportable 05/31/21 06:40 Giant Platelets Not Reportable 05/31/21 06:40 Platelet Satelliting Not Reportable 05/31/21 06:40 Plt Morphology Comment Not Reportable 05/31/21 06:40 RBC Morphology Not Reportable 05/31/21 06:40 Dimorphic RBCs Not Reportable 05/31/21 06:40 Polychromasia Not Reportable 05/31/21 06:40 Hypochromasia 1+ 05/31/21 06:40 Poikilocytosis Not Reportable 05/31/21 06:40 Anisocytosis 2+ 05/31/21 06:40 Microcytosis Not Reportable 05/31/21 06:40 Macrocytosis Not Reportable 05/31/21 06:40 Spherocytes Few 05/31/21 06:40 Pappenheimer Bodies Not Reportable 05/31/21 06:40 Sickle Cells Not Reportable 05/31/21 06:40 Target Cells Not Reportable 05/31/21 06:40 Tear Drop Cells Not Reportable 05/31/21 06:40 Ovalocytes Not Reportable 05/31/21 06:40 Helmet Cells Not Reportable 05/31/21 06:40 Graves-[place] Bodies Not Reportable 05/31/21 06:40 [place] Rings Not Reportable 05/31/21 06:40 Tricia Cells Not Reportable 05/31/21 06:40 Bite Cells Not Reportable 05/31/21 06:40 Crenated Cell Not Reportable 05/31/21 06:40 Elliptocytes Not Reportable 05/31/21 06:40 Acanthocytes (Spur) Not Reportable 05/31/21 06:40 Rouleaux Not Reportable 05/31/21 06:40 Hemoglobin C Crystals Not Reportable 05/31/21 06:40 Schistocytes Not Reportable 05/31/21 06:40 Malaria parasites Not Reportable 05/31/21 06:40 Koffi Bodies Not Reportable 05/31/21 06:40 Hem Pathologist Commnt No 05/31/21 06:40 PT 13.8 Sec. (12.2-14.9) 06/03/21 Unknown INR 0.96 (0.87-1.13) 06/03/21 Unknown APTT 52.6 Sec. (24.2-36.6) H 05/31/21 06:40 Heparin Anti-Xa Level 0.42 U.I./ml (0.3-0.7) 06/03/21 Unknown Sodium 140 mmol/L (137-145) 05/31/21 06:40 Potassium 3.7 mmol/L (3.6-5.0) 05/31/21 06:40 Chloride 106.9 mmol/L (98-107) 05/31/21 06:40 Carbon Dioxide 23 mmol/L (22-30) 05/31/21 06:40 Anion Gap 14 mmol/L 05/31/21 06:40 BUN 13 mg/dL (7-17) 05/31/21 06:40 Creatinine 1.0 mg/dL (0.6-1.2) 05/31/21 06:40 Estimated GFR > 60 ml/min 05/31/21 06:40 BUN/Creatinine Ratio 13 % 05/31/21 06:40 Glucose 90 mg/dL (65-100) 05/31/21 06:40 Calcium 9.4 mg/dL (8.4-10.2) 05/31/21 06:40 Total Bilirubin 0.20 mg/dL (0.1-1.2) 05/29/21 23:24 AST 11 units/L (5-40) 05/29/21 23:24 ALT 10 units/L (7-56) 05/29/21 23:24 Alkaline Phosphatase 88 units/L (35-129) 05/29/21 23:24 Troponin T < 0.010 ng/mL (0.00-0.029) 05/30/21 04:46 Total Protein 6.9 g/dL (6.3-8.2) 05/29/21 23:24 Albumin 3.5 g/dL (3.9-5) L 05/29/21 23:24 Albumin/Globulin Ratio 1.0 % 05/29/21 23:24 Lipase 31 units/L (13-60) 05/30/21 04:41 HCG, Qual Negative (Negative) 05/29/21 23:24 Rojas/IV: Voiding Method Toilet Active Medications - Current Medications Current Medications: Generic Name Dose Route Start Last Admin Trade Name Freq PRN Reason Stop Dose Admin Albuterol 2.5 mg 05/30/21 05:14 Albuterol 2.5 Mg/3 Ml Nebu IH Q3HRT PRN Shortness Of Breath Alprazolam 0.5 mg 05/30/21 08:00 06/03/21 08:07 Alprazolam 0.5 Mg Tab PO 0.5 mg TID ELLIOTT Administration Aspirin 81 mg 05/30/21 10:00 06/03/21 09:38 Aspirin Ec 81 Mg Tab PO 81 mg QDAY ELLIOTT Administration Famotidine 20 mg 05/30/21 10:00 06/03/21 09:37 Famotidine 20 Mg Tab PO 20 mg BID ELLIOTT Administration Heparin Sodium (Porcine) 4,500 unit 06/03/21 09:46 Heparin 10,000 Units/10 Ml Vial 40 unit/kg (4500 unit) IV Q6H PRN Anti-Xa Assay < 0.1 units/ml Heparin Sodium/Sodium Chloride 25,000 unit in 500 mls @ 30 mls/hr 06/03/21 10:00 Heparin/ 0.45% Nacl-25,000 Unit/500 Ml IV TITR [facility] Protocol 1,500 UNITS/HR Ketorolac Tromethamine 15 mg 06/01/21 11:00 06/03/21 05:36 Ketorolac 30 Mg/1 Ml Inj IV 06/06/21 10:59 15 mg Q6H PRN Administration Pain, Mild (1-3) Levetiracetam 500 mg 05/30/21 10:00 06/03/21 09:37 Levetiracetam 500 Mg Tab PO 500 mg BID ELLIOTT Administration Morphine Sulfate 2 mg 06/03/21 09:30 06/03/21 09:35 Morphine 2 Mg/1 Ml Inj IV 2 mg Q8H PRN Administration Pain, Moderate (4-6) Ondansetron HCl 4 mg 05/30/21 05:14 Ondansetron 4 Mg/2 Ml Inj IV Q8H PRN Nausea And Vomiting Propranolol HCl 40 mg 05/30/21 10:00 06/03/21 09:38 Propranolol 40 Mg Tab PO 40 mg BID ELLIOTT Administration Quetiapine Fumarate 100 mg 05/30/21 10:00 06/03/21 09:37 Quetiapine 100 Mg Tab PO 100 mg QAM E[facility]IOTT Administration Sodium Chloride 10 ml 05/30/21 10:00 06/02/21 21:25 Sodium Chloride 0.9% 10 Ml Flush Syringe IV 10 ml BID E[facility]IOTT Administration Sodium Chloride 10 ml 05/30/21 05:14 Sodium Chloride 0.9% 10 Ml Flush Syringe IV PRN PRN LINE FLUSH Tramadol HCl 100 mg 05/30/21 08:00 06/03/21 08:07 Tramadol 50 Mg Tab PO 100 mg TID E[facility]IOTT Administration Warfarin Sodium 10 mg 06/03/21 17:00 Warfarin 10 Mg Tab PO 06/04/21 16:59 ONCE@1700 [facility] Nutrition/Malnutrition Assess - Dietary Evaluation Nutrition/Malnutrition Findings: Nutrition Notes Start: 05/31/21 12:39 Freq: Status: Active Protocol: Document 05/31/21 12:39 JAMES (Rec: 05/31/21 12:50 JAMES [id number]) Nutrition Notes Need for Assessment generated from: Education Initial or Follow up Assessment Current Diagnosis Hypertension Other Pertinent Diagnosis PE, Chest Pain, Cardiomyopathy , Bilateral LE Swelling. DVT, GERD, SOB, Seiz Current Diet Cardiac Diet (since B 05/30). Labs/Tests 05/31: WNL. Pertinent Medications 05/31: Warfarin 7.5 mg, others nutritionally unremarkable. 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 Weight Status Obese Subjective/Other Information RD consult for warfarine use. No reports available on Pt's PO intake of meals at the time , will assess at F/U. Pt is on Nasal Cannula, O2 stauration @ 95%, according to Physical Assessment History notes. Pt has been using Coumadin since 01/2017, according to Progress notes, not a candidate for nutrition education. Pt lives at home with family, according to Progress notes. Percent of energy/protein needs met: Prescribed Cardiac Diet provides for energy/protein needs (2,230 Kcal/85 g) during LOS. Burn Absent Trauma Absent GI Symptoms None Food Allergy Yes Skin Integrity/Comment Assessment WNL. Minimum of two criteria No #1 Nutrition Diagnosis No nutrition diagnosis at this time Comments: Will assess Pt's PO intake of meals at F/U. Is patient on ventilator? No Is Patient Ambulatory and/or Out of Bed Yes REE-([facility]ambulatory/OOB) [ 2356.419 NUTR.MSJOOB] Kcal/Kg value to use for calculation 16 Approximate Energy Requirements Using 1776 kcal/Kg Calculation Used for Recommendations Kcal/kg Additional Notes Protein: 0.8-1 g/Kg AdjBW; 68- 86 g/day. Fluids: 1 ml/Kcal, or as per MD. Nutrition Intervention Change Diet Order: Continue Cardiac Diet. Follow-Up By: 06/07/21 Additional Comments Continue monitoring food tolerance, %PO intake of meals , and BM.
[2021-06-03] MEDS: HEPARIN/ 0.45% NACL DRIP 25,000 UNIT/500 ML BAG IV SCH (12:47)
[2021-06-03] MEDS ORDERED: WARFARIN 10 MG TAB PO SCH (17:00)
[2021-06-04] MEDS: MORPHINE 2 MG/1 ML INJ IV PRN ×3 (01:30→23:18)
[2021-06-04] MEDS: HEPARIN/ 0.45% NACL DRIP 25,000 UNIT/500 ML BAG IV SCH ×2 (03:24→17:25)
[2021-06-04] MEDS ORDERED: IBUPROFEN 600 MG TAB PO ONE (03:45)
[2021-06-04 08:09] LABS: INR 1.06 (0.87-1.13)
--- NOTE | 2021-06-04 08:32 | Progress Note ---
Assessment and Plan Assessment and plan: #Sepsis -patient with Tmax of 102, tachycardic -patient with R femoral central line, ordered to be removed -blood cultures and UA collected -azithromycin and rocephin started by overnight Hospitalist -vancomycin added -will continue to monitor for source #Hypotension -patient with low blood pressure at night -IVF started -avoid antihypotensives -labetalol currently held #Acute pulmonary embolism #Acute chest pain #History of DVT on warfarin Troponin unremarkable, chest x-ray unremarkable, bilateral lower extremity venous Dopplers unremarkable for acute DVT CT angio chest revealing acute bilateral pulmonary emboli with evidence of right heart strain Home medication of warfarin 7.5 mg daily; however, INR 1.03. Patient endorses being compliant with her anticoagulation. Continue heparin drip and bridged warfarin daily until therapeutic (goal 2.53.5). TTE without evidence of right heart strain #Seizure disorder #Anxiety Continue home medications: Keppra 500 mg twice daily, Quetiapine 100 mg every morning and 300 mg nightly, alprazolam 0.5 mg 3 times daily #Microcytic anemia -stable Transfuse if hemoglobin less than 7 or patient become symptomatic #Morbid obesity #Weight loss counseling #Exercise counseling - BMI 39.1 - Counseled patient on the importance of weight loss, incorporating exercise, and dietary changes (lean meats, fresh fruits and vegetables, and water intake). Patient expresses understanding. #Advanced care planning -Disease education conducted, care plan discussed, diagnoses discussed, prognosis discussed, and patient acknowledges understanding with care plan -Time: +30 min History Interval history: Patient febrile overnight. Reports not feeling well. Mostly complaining of back pain. Denies cough, chest pain or shortness of breath. Hospitalist Physical - Physical exam Narrative exam: GENERAL: Well-developed well-nourished. In no acute distress. CHEST/LUNGS: CTAB on room air HEART/CARDIOVASCULAR: Tachycardic. No murmur, rubs or gallops appreciated. ABDOMEN: +BS. NT/ND. SKIN: No rashes noted. : R femoral vasc cath in place NEURO: No focal motor deficit. MUSCULOSKELETAL: No joint effusion EXTREMITIES: No cyanosis, clubbing or edema. PSYCH: Cooperative. - Constitutional Vitals: Temp Pulse Resp BP Pulse Ox 102.9 F H 113 H 14 85/35 96 06/04/21 07:48 06/04/21 07:50 06/04/21 07:48 06/04/21 07:48 06/04/21 07:50 General appearance: Present: no acute distress, well-nourished HEART Score - HEART Score Troponin: Troponin T < 0.010 ng/mL (0.00-0.029) 05/30/21 04:46 Results - Labs CBC & Chem 7: 06/03/21 Unknown 05/31/21 06:40 Labs: Laboratory Last Values WBC 13.0 K/mm3 (4.5-11.0) H 05/31/21 06:40 RBC 3.85 M/mm3 (3.65-5.03) 05/31/21 06:40 Hgb 8.5 gm/dl (10.1-14.3) L 06/03/21 Unknown Hct 28.0 % (30.3-42.9) L 06/03/21 Unknown MCV 74 fl (79-97) L 05/31/21 06:40 MCH 23 pg (28-32) L 05/31/21 06:40 MCHC 31 % (30-34) 05/31/21 06:40 RDW 25.7 % (13.2-15.2) H 05/31/21 06:40 Plt Count 280 K/mm3 (140-440) 06/03/21 Unknown Add Manual Diff Complete 05/31/21 06:40 Total Counted 100 05/31/21 06:40 Seg Neuts % (Manual) 77.0 % (40.0-70.0) H 05/31/21 06:40 Band Neutrophils % 1.0 % 05/31/21 06:40 Lymphocytes % (Manual) 16.0 % (13.4-35.0) 05/31/21 06:40 Reactive Lymphs % (Man) 0 % 05/31/21 06:40 Monocytes % (Manual) 6.0 % (0.0-7.3) 05/31/21 06:40 Eosinophils % (Manual) 0 % (0.0-4.3) 05/31/21 06:40 Basophils % (Manual) 0 % (0.0-1.8) 05/31/21 06:40 Metamyelocytes % 0 % 05/31/21 06:40 Myelocytes % 0 % 05/31/21 06:40 Promyelocytes % 0 % 05/31/21 06:40 Blast Cells % 0 % 05/31/21 06:40 Nucleated RBC % Not Reportable 05/31/21 06:40 Seg Neutrophils # Man 10.0 K/mm3 (1.8-7.7) H 05/31/21 06:40 Band Neutrophils # 0.1 K/mm3 05/31/21 06:40 Lymphocytes # (Manual) 2.1 K/mm3 (1.2-5.4) 05/31/21 06:40 Abs React Lymphs (Man) 0.0 K/mm3 05/31/21 06:40 Monocytes # (Manual) 0.8 K/mm3 (0.0-0.8) 05/31/21 06:40 Eosinophils # (Manual) 0.0 K/mm3 (0.0-0.4) 05/31/21 06:40 Basophils # (Manual) 0.0 K/mm3 (0.0-0.1) 05/31/21 06:40 Metamyelocytes # 0.0 K/mm3 05/31/21 06:40 Myelocytes # 0.0 K/mm3 05/31/21 06:40 Promyelocytes # 0.0 K/mm3 05/31/21 06:40 Blast Cells # 0.0 K/mm3 05/31/21 06:40 WBC Morphology Not Reportable 05/31/21 06:40 Hypersegmented Neuts Not Reportable 05/31/21 06:40 Hyposegmented Neuts Not Reportable 05/31/21 06:40 Hypogranular Neuts Not Reportable 05/31/21 06:40 Smudge Cells Not Reportable 05/31/21 06:40 Toxic Granulation Not Reportable 05/31/21 06:40 Toxic Vacuolation Not Reportable 05/31/21 06:40 Dohle Bodies Not Reportable 05/31/21 06:40 Pelger-Huet Anomaly Not Reportable 05/31/21 06:40 Jaime Rods Not Reportable 05/31/21 06:40 Platelet Estimate Consistent w auto 05/31/21 06:40 Clumped Platelets Not Reportable 05/31/21 06:40 Plt Clumps, EDTA Not Reportable 05/31/21 06:40 Large Platelets Not Reportable 05/31/21 06:40 Giant Platelets Not Reportable 05/31/21 06:40 Platelet Satelliting Not Reportable 05/31/21 06:40 Plt Morphology Comment Not Reportable 05/31/21 06:40 RBC Morphology Not Reportable 05/31/21 06:40 Dimorphic RBCs Not Reportable 05/31/21 06:40 Polychromasia Not Reportable 05/31/21 06:40 Hypochromasia 1+ 05/31/21 06:40 Poikilocytosis Not Reportable 05/31/21 06:40 Anisocytosis 2+ 05/31/21 06:40 Microcytosis Not Reportable 05/31/21 06:40 Macrocytosis Not Reportable 05/31/21 06:40 Spherocytes Few 05/31/21 06:40 Pappenheimer Bodies Not Reportable 05/31/21 06:40 Sickle Cells Not Reportable 05/31/21 06:40 Target Cells Not Reportable 05/31/21 06:40 Tear Drop Cells Not Reportable 05/31/21 06:40 Ovalocytes Not Reportable 05/31/21 06:40 Helmet Cells Not Reportable 05/31/21 06:40 [place] Bodies Not Reportable 05/31/21 06:[address] [place] Rings Not Reportable 05/31/21 06:40 Tricia Cells Not Reportable 05/31/21 06:40 Bite Cells Not Reportable 05/31/21 06:40 Crenated Cell Not Reportable 05/31/21 06:40 Elliptocytes Not Reportable 05/31/21 06:40 Acanthocytes (Spur) Not Reportable 05/31/21 06:40 Rouleaux Not Reportable 05/31/21 06:40 Hemoglobin C Crystals Not Reportable 05/31/21 06:40 Schistocytes Not Reportable 05/31/21 06:40 Malaria parasites Not Reportable 05/31/21 06:40 Koffi Bodies Not Reportable 05/31/21 06:40 Hem Pathologist Commnt No 05/31/21 06:40 PT 15.0 Sec. (12.2-14.9) H 06/04/21 07:39 INR 1.06 (0.87-1.13) 06/04/21 07:39 APTT 52.6 Sec. (24.2-36.6) H 05/31/21 06:40 Heparin Anti-Xa Level 0.42 U.I./ml (0.3-0.7) 06/03/21 Unknown Sodium 140 mmol/L (137-145) 05/31/21 06:40 Potassium 3.7 mmol/L (3.6-5.0) 05/31/21 06:40 Chloride 106.9 mmol/L (98-107) 05/31/21 06:40 Carbon Dioxide 23 mmol/L (22-30) 05/31/21 06:40 Anion Gap 14 mmol/L 05/31/21 06:40 BUN 13 mg/dL (7-17) 05/31/21 06:40 Creatinine 1.0 mg/dL (0.6-1.2) 05/31/21 06:40 Estimated GFR > 60 ml/min 05/31/21 06:40 BUN/Creatinine Ratio 13 % 05/31/21 06:40 Glucose 90 mg/dL (65-100) 05/31/21 06:40 Calcium 9.4 mg/dL (8.4-10.2) 05/31/21 06:40 Total Bilirubin 0.20 mg/dL (0.1-1.2) 05/29/21 23:24 AST 11 units/L (5-40) 05/29/21 23:24 ALT 10 units/L (7-56) 05/29/21 23:24 Alkaline Phosphatase 88 units/L (35-129) 05/29/21 23:24 Troponin T < 0.010 ng/mL (0.00-0.029) 05/30/21 04:46 Total Protein 6.9 g/dL (6.3-8.2) 05/29/21 23:24 Albumin 3.5 g/dL (3.9-5) L 05/29/21 23:24 Albumin/Globulin Ratio 1.0 % 05/29/21 23:24 Lipase 31 units/L (13-60) 05/30/21 04:41 HCG, Qual Negative (Negative) 05/29/21 23:24 Rojas/IV: Voiding Method Toilet Active Medications - Current Medications Current Medications: Generic Name Dose Route Start Last Admin Trade Name Freq PRN Reason Stop Dose Admin Albuterol 2.5 mg 05/30/21 05:14 Albuterol 2.5 Mg/3 Ml Nebu IH Q3HRT PRN Shortness Of Breath Alprazolam 0.5 mg 05/30/21 08:00 06/03/21 20:55 Alprazolam 0.5 Mg Tab PO 0.5 mg TID [facility] Administration Aspirin 81 mg 05/30/21 10:00 06/03/21 09:38 Aspirin Ec 81 Mg Tab PO 81 mg QDAY [facility] Administration Famotidine 20 mg 05/30/21 10:00 06/03/21 22:23 Famotidine 20 Mg Tab PO 20 mg BID [facility] Administration Heparin Sodium (Porcine) 4,500 unit 06/03/21 09:46 Heparin 10,000 Units/10 Ml Vial 40 unit/kg (4500 unit) IV Q6H PRN Anti-Xa Assay < 0.1 units/ml Heparin Sodium/Sodium Chloride 25,000 unit in 500 mls @ 30 mls/hr 06/03/21 10:00 06/04/21 03:24 Heparin/ 0.45% Nacl-25,000 Unit/500 Ml IV 1,900 units/hr TITR ELLIOTT 38 mls/hr Administration Protocol 1,500 UNITS/HR Ceftriaxone Sodium 1 gm in 50 mls @ 100 mls/hr 06/04/21 04:00 Rocephin/Ns 1 Gm/50 Ml IV Q24H [facility] Protocol Azithromycin 500 mg in 250 mls @ 250 mls/hr 06/04/21 04:00 Zithromax/Ns IV Q24H [facility] Ketorolac Tromethamine 15 mg 06/01/21 11:00 06/03/21 22:19 Ketorolac 30 Mg/1 Ml Inj IV 06/06/21 10:59 15 mg Q6H PRN Administration Pain, Mild (1-3) Levetiracetam 500 mg 05/30/21 10:00 06/03/21 22:23 Levetiracetam 500 Mg Tab PO 500 mg BID [facility] Administration Morphine Sulfate 2 mg 06/03/21 09:30 06/04/21 01:30 Morphine 2 Mg/1 Ml Inj IV 2 mg Q8H PRN Administration Pain, Moderate (4-6) Ondansetron HCl 4 mg 05/30/21 05:14 Ondansetron 4 Mg/2 Ml Inj IV Q8H PRN Nausea And Vomiting Propranolol HCl 40 mg 05/30/21 10:00 06/03/21 22:24 Propranolol 40 Mg Tab PO 40 mg BID ELLIOTT Administration Quetiapine Fumarate 100 mg 05/30/21 10:00 06/03/21 09:37 Quetiapine 100 Mg Tab PO 100 mg QAM ELLIOTT Administration Sodium Chloride 10 ml 05/30/21 10:00 06/03/21 22:20 Sodium Chloride 0.9% 10 Ml Flush Syringe IV 10 ml BID ELLIOTT Administration Sodium Chloride 10 ml 05/30/21 05:14 Sodium Chloride 0.9% 10 Ml Flush Syringe IV PRN PRN LINE FLUSH Tramadol HCl 100 mg 05/30/21 08:00 06/03/21 20:54 Tramadol 50 Mg Tab PO 100 mg TID ELLIOTT Administration Warfarin Sodium 10 mg 06/03/21 17:00 06/03/21 17:31 Warfarin 10 Mg Tab PO 06/04/21 16:59 10 mg ONCE@1700 ELLIOTT Administration Nutrition/Malnutrition Assess - Dietary Evaluation Nutrition/Malnutrition Findings: Nutrition Notes Start: 05/31/21 12:39 Freq: Status: Active Protocol: Document 05/31/21 12:39 JAMES (Rec: 05/31/21 12:50 JAMES [id number]) Nutrition Notes Need for Assessment generated from: Education Initial or Follow up Assessment Current Diagnosis Hypertension Other Pertinent Diagnosis PE, Chest Pain, Cardiomyopathy , Bilateral LE Swelling. DVT, GERD, SOB, Seiz Current Diet Cardiac Diet (since B 05/30). Labs/Tests 05/31: WNL. Pertinent Medications 05/31: Warfarin 7.5 mg, others nutritionally unremarkable. 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 No reports available on Pt's PO intake of meals at the time , will assess at F/U. Pt is on Nasal Cannula, O2 stauration @ 95%, according to Physical Assessment History notes. Pt has been using Coumadin since 01/2017, according to Progress notes, not a candidate for nutrition education. Pt lives at home with family, according to Progress notes. Percent of energy/protein needs met: Prescribed Cardiac Diet provides for energy/protein needs (2,230 Kcal/85 g) during LOS. Burn Absent Trauma Absent GI Symptoms None Food Allergy Yes Skin Integrity/Comment Assessment WNL. Minimum of two criteria No #1 Nutrition Diagnosis No nutrition diagnosis at this time Comments: Will assess Pt's PO intake of meals at F/U. Is patient on ventilator? No Is Patient Ambulatory and/or Out of Bed Yes REE-([facility]/OOB) [ 2356.419 [email or web address]] Kcal/Kg value to use for calculation 16 Approximate Energy Requirements Using 1776 kcal/Kg Calculation Used for Recommendations Kcal/kg Additional Notes Protein: 0.8-1 g/Kg AdjBW; 68- 86 g/day. Fluids: 1 ml/Kcal, or as per MD. Nutrition Intervention Change Diet Order: Continue Cardiac Diet. Follow-Up By: 06/07/21 Additional Comments Continue monitoring food tolerance, %PO intake of meals , and BM.
[2021-06-04] MEDS: cefTRIAXone/NS 1 GM/50 ML 1 GM/50 ML BAG IV SCH (08:54)
[2021-06-04] MEDS: traMADol 50 MG TAB PO SCH ×3 (08:54→20:24)
[2021-06-04] MEDS: ALPRAZolam 0.5 MG TAB PO SCH ×3 (08:54→20:24)
[2021-06-04] MEDS: AZITHROMYCIN/NS 500 MG/250 ML 500 MG/250 ML BAG IV SCH (08:55)
[2021-06-04] MEDS: PROPRANOLOL 40 MG TAB PO SCH ×2 (11:12→21:12)
[2021-06-04] MEDS: FAMOTIDINE 20 MG TAB PO SCH ×2 (11:22→21:11)
[2021-06-04] MEDS: QUEtiapine 100 MG TAB PO SCH (11:22)
[2021-06-04] MEDS: levETIRAcetam 500 MG TAB PO SCH ×2 (11:22→21:11)
[2021-06-04] MEDS: ASPIRIN EC 81 MG TAB PO SCH (11:22)
[2021-06-04] MEDS ORDERED: VANCOMYCIN 2,000 MG in SODIUM CHLORIDE 0.9% 500 ML 500 ML IV ONE (11:30)
[2021-06-04] MEDS ORDERED: VANCOMYCIN PHARMACY TO DOSE IV SCH (12:00)
[2021-06-04] MEDS ORDERED: WARFARIN 10 MG TAB PO NR (17:00)
--- NOTE | 2021-06-04 18:07 | Procedure Note ---
Date of procedure: 06/04/21 Pre-op diagnosis: sepsis Post-op diagnosis: same Procedure: Right internal jugular vein triple-lumen catheter placement under ultrasound guidance The patient was prepped and draped in the usual sterile fashion. A timeout was taken with the patient nurse at bedside to verify correct patient, correct procedure, and correct operative site. Local anesthesia obtained with 1% lidocaine. The Seldinger technique was utilized to access the right internal jugular vein under ultrasound guidance. A seeker needle was advanced to the right internal jugular vein under ultrasound guidance without difficulty. A guidewire was then advanced via the seeker needle into the right internal jugular vein and the seeker needle subsequently removed over the guidewire. A scalpel was used to incise the skin. A dilator was then passed over the guidewire into the right internal jugular vein and subsequently removed. A preflush triple-lumen catheter was then advanced to the right internal jugular vein without difficulty. All 3 ports flush and draw with ease. A Biopatch was placed at the skin insertion site. 3-O silk suture was utilized to suture the triple-lumen catheter in place. Postoperative chest x-ray conducted and central venous catheter in expected position in the SVC. Estimated blood loss minimal. Complications none. No evidence of pneumothorax. Surgeon: ANGELIA OLIVER Estimated blood loss: minimal Pathology: none Condition: stable Disposition: other ([facility])
--- NOTE | 2021-06-04 19:47 | XRay Report ---
CHEST 1 VIEW 06/04/2021 7:08 PM INDICATION / CLINICAL INFORMATION: central line placement. COMPARISON: 05/18/21 FINDINGS: SUPPORT DEVICES: Right jugular central line has been placed with the tip projecting over the SVC. HEART / MEDIASTINUM: Heart is normal size. Descending thoracic aorta stent is unchanged. LUNGS / PLEURA: No significant pulmonary or pleural abnormality. No pneumothorax. ADDITIONAL FINDINGS: No significant additional findings. IMPRESSION: 1. Central line in expected position. Signer Name: Carlos Campbell MD Signed: 06/04/2021 7:43 PM Workstation Name: [id number]
[2021-06-04] MEDS ORDERED: VANCOMYCIN 1,750 MG in SODIUM CHLORIDE 0.9% 500 ML 500 ML IV SCH (23:30)
[2021-06-05] MEDS: AZITHROMYCIN/NS 500 MG/250 ML 500 MG/250 ML BAG IV SCH (03:21)
[2021-06-05] MEDS: cefTRIAXone/NS 1 GM/50 ML 1 GM/50 ML BAG IV SCH (03:43)
[2021-06-05 04:31] LABS: Hematocrit 27.3 % (30.3-42.9); Hemoglobin 8.4 gm/dl (10.1-14.3)
[2021-06-05 04:40] LABS: INR 1.3 (0.87-1.13)
[2021-06-05] MEDS: SODIUM CHLORIDE 0.9% 1000 ML 1,000 ML IV SCH ×2 (04:45→18:22)
[2021-06-05] MEDS: HEPARIN/ 0.45% NACL DRIP 25,000 UNIT/500 ML BAG IV SCH ×2 (06:17→20:18)
--- NOTE | 2021-06-05 07:30 | Progress Note ---
Hospitalist Physical - Constitutional Vitals: Temp Pulse Resp BP Pulse Ox 101.8 F H 112 H 11 L 141/120 88 06/05/21 06:18 06/05/21 06:21 06/05/21 06:21 06/05/21 06:21 06/05/21 06:21 General appearance: Present: no acute distress, well-nourished HEART Score - HEART Score Troponin: Troponin T < 0.010 ng/mL (0.00-0.029) 05/30/21 04:46 Results - Labs CBC & Chem 7: 06/05/21 04:07 05/31/21 06:40 Labs: Laboratory Last Values WBC 13.0 K/mm3 (4.5-11.0) H 05/31/21 06:40 RBC 3.85 M/mm3 (3.65-5.03) 05/31/21 06:40 Hgb 8.4 gm/dl (10.1-14.3) L 06/05/21 04:07 Hct 27.3 % (30.3-42.9) L 06/05/21 04:07 MCV 74 fl (79-97) L 05/31/21 06:40 MCH 23 pg (28-32) L 05/31/21 06:40 MCHC 31 % (30-34) 05/31/21 06:40 RDW 25.7 % (13.2-15.2) H 05/31/21 06:40 Plt Count 244 K/mm3 (140-440) 06/05/21 04:07 Add Manual Diff Complete 05/31/21 06:40 Total Counted 100 05/31/21 06:40 Seg Neuts % (Manual) 77.0 % (40.0-70.0) H 05/31/21 06:40 Band Neutrophils % 1.0 % 05/31/21 06:40 Lymphocytes % (Manual) 16.0 % (13.4-35.0) 05/31/21 06:40 Reactive Lymphs % (Man) 0 % 05/31/21 06:40 Monocytes % (Manual) 6.0 % (0.0-7.3) 05/31/21 06:40 Eosinophils % (Manual) 0 % (0.0-4.3) 05/31/21 06:40 Basophils % (Manual) 0 % (0.0-1.8) 05/31/21 06:40 Metamyelocytes % 0 % 05/31/21 06:40 Myelocytes % 0 % 05/31/21 06:40 Promyelocytes % 0 % 05/31/21 06:40 Blast Cells % 0 % 05/31/21 06:40 Nucleated RBC % Not Reportable 05/31/21 06:40 Seg Neutrophils # Man 10.0 K/mm3 (1.8-7.7) H 05/31/21 06:40 Band Neutrophils # 0.1 K/mm3 05/31/21 06:40 Lymphocytes # (Manual) 2.1 K/mm3 (1.2-5.4) 05/31/21 06:40 Abs React Lymphs (Man) 0.0 K/mm3 05/31/21 06:40 Monocytes # (Manual) 0.8 K/mm3 (0.0-0.8) 05/31/21 06:40 Eosinophils # (Manual) 0.0 K/mm3 (0.0-0.4) 05/31/21 06:40 Basophils # (Manual) 0.0 K/mm3 (0.0-0.1) 05/31/21 06:40 Metamyelocytes # 0.0 K/mm3 05/31/21 06:40 Myelocytes # 0.0 K/mm3 05/31/21 06:40 Promyelocytes # 0.0 K/mm3 05/31/21 06:40 Blast Cells # 0.0 K/mm3 05/31/21 06:40 WBC Morphology Not Reportable 05/31/21 06:40 Hypersegmented Neuts Not Reportable 05/31/21 06:40 Hyposegmented Neuts Not Reportable 05/31/21 06:40 Hypogranular Neuts Not Reportable 05/31/21 06:40 Smudge Cells Not Reportable 05/31/21 06:40 Toxic Granulation Not Reportable 05/31/21 06:40 Toxic Vacuolation Not Reportable 05/31/21 06:40 Dohle Bodies Not Reportable 05/31/21 06:40 Pelger-Huet Anomaly Not Reportable 05/31/21 06:40 Jaime Rods Not Reportable 05/31/21 06:40 Platelet Estimate Consistent w auto 05/31/21 06:40 Clumped Platelets Not Reportable 05/31/21 06:40 Plt Clumps, EDTA Not Reportable 05/31/21 06:40 Large Platelets Not Reportable 05/31/21 06:40 Giant Platelets Not Reportable 05/31/21 06:40 Platelet Satelliting Not Reportable 05/31/21 06:40 Plt Morphology Comment Not Reportable 05/31/21 06:40 RBC Morphology Not Reportable 05/31/21 06:40 Dimorphic RBCs Not Reportable 05/31/21 06:40 Polychromasia Not Reportable 05/31/21 06:40 Hypochromasia 1+ 05/31/21 06:40 Poikilocytosis Not Reportable 05/31/21 06:40 Anisocytosis 2+ 05/31/21 06:40 Microcytosis Not Reportable 05/31/21 06:40 Macrocytosis Not Reportable 05/31/21 06:40 Spherocytes Few 05/31/21 06:40 Pappenheimer Bodies Not Reportable 05/31/21 06:40 Sickle Cells Not Reportable 05/31/21 06:40 Target Cells Not Reportable 05/31/21 06:40 Tear Drop Cells Not Reportable 05/31/21 06:40 Ovalocytes Not Reportable 05/31/21 06:40 Helmet Cells Not Reportable 05/31/21 06:40 [place] Bodies Not Reportable 05/31/21 06:40 [place] Rings Not Reportable 05/31/21 06:40 [place] Cells Not Reportable 05/31/21 06:40 Bite Cells Not Reportable 05/31/21 06:40 Crenated Cell Not Reportable 05/31/21 06:40 Elliptocytes Not Reportable 05/31/21 06:40 Acanthocytes (Spur) Not Reportable 05/31/21 06:40 Rouleaux Not Reportable 05/31/21 06:40 Hemoglobin C Crystals Not Reportable 05/31/21 06:40 Schistocytes Not Reportable 05/31/21 06:40 Malaria parasites Not Reportable 05/31/21 06:40 K[place]i Bodies Not Reportable 05/31/21 06:40 Hem Pathologist Commnt No 05/31/21 06:40 PT 17.7 Sec. (12.2-14.9) H 06/05/21 04:07 INR 1.30 (0.87-1.13) H 06/05/21 04:07 APTT 52.6 Sec. (24.2-36.6) H 05/31/21 06:40 Heparin Anti-Xa Level 0.49 U.I./ml (0.3-0.7) 06/04/21 10:18 Sodium 140 mmol/L (137-145) 05/31/21 06:40 Potassium 3.7 mmol/L (3.6-5.0) 05/31/21 06:40 Chloride 106.9 mmol/L (98-107) 05/31/21 06:40 Carbon Dioxide 23 mmol/L (22-30) 05/31/21 06:40 Anion Gap 14 mmol/L 05/31/21 06:40 BUN 13 mg/dL (7-17) 05/31/21 06:40 Creatinine 1.0 mg/dL (0.6-1.2) 05/31/21 06:40 Estimated GFR > 60 ml/min 05/31/21 06:40 BUN/Creatinine Ratio 13 % 05/31/21 06:40 Glucose 90 mg/dL (65-100) 05/31/21 06:40 Calcium 9.4 mg/dL (8.4-10.2) 05/31/21 06:40 Total Bilirubin 0.20 mg/dL (0.1-1.2) 05/29/21 23:24 AST 11 units/L (5-40) 05/29/21 23:24 ALT 10 units/L (7-56) 05/29/21 23:24 Alkaline Phosphatase 88 units/L (35-129) 05/29/21 23:24 Troponin T < 0.010 ng/mL (0.00-0.029) 05/30/21 04:46 Total Protein 6.9 g/dL (6.3-8.2) 05/29/21 23:24 Albumin 3.5 g/dL (3.9-5) L 05/29/21 23:24 Albumin/Globulin Ratio 1.0 % 05/29/21 23:24 Lipase 31 units/L (13-60) 05/30/21 04:41 HCG, Qual Negative (Negative) 05/29/21 23:24 Microbiology: Microbiology 06/04/21 07:41 Peripheral/Venous Blood Culture - Preliminary Culture in Progress 06/04/21 06:18 Peripheral/Venous Blood Culture - Preliminary Culture in Progress Rojas/IV: Voiding Method Toilet Active Medications - Current Medications Current Medications: Generic Name Dose Route Start Last Admin Trade Name Freq PRN Reason Stop Dose Admin Albuterol 2.5 mg 05/30/21 05:14 Albuterol 2.5 Mg/3 Ml Nebu IH Q3HRT PRN Shortness Of Breath Alprazolam 0.5 mg 05/30/21 08:00 06/04/21 20:24 Alprazolam 0.5 Mg Tab PO 0.5 mg TID ELLIOTT Administration Aspirin 81 mg 05/30/21 10:00 06/04/21 11:22 Aspirin Ec 81 Mg Tab PO 81 mg QDAY ELLIOTT Administration Famotidine 20 mg 05/30/21 10:00 06/04/21 21:11 Famotidine 20 Mg Tab PO Not Given BID ELLIOTT Heparin Sodium (Porcine) 4,500 unit 06/03/21 09:46 Heparin 10,000 Units/10 Ml Vial 40 unit/kg (4500 unit) IV Q6H PRN Anti-Xa Assay < 0.1 units/ml Heparin Sodium/Sodium Chloride 25,000 unit in 500 mls @ 30 mls/hr 06/03/21 10:00 06/05/21 06:17 Heparin/ 0.45% Nacl-25,000 Unit/500 Ml IV 1,900 units/hr TITR ELLIOTT 38 mls/hr Administration Protocol 1,500 UNITS/HR Ceftriaxone Sodium 1 gm in 50 mls @ 100 mls/hr 06/04/21 04:00 06/05/21 03:43 Rocephin/Ns 1 Gm/50 Ml IV 06/08/21 04:29 100 mls/hr Q24H ELLIOTT Administration Protocol Azithromycin 500 mg in 250 mls @ 250 mls/hr 06/04/21 04:00 06/05/21 03:21 Zithromax/Ns IV 06/08/21 04:59 250 mls/hr Q24H ELLIOTT Administration Sodium Chloride 1,000 mls @ 75 mls/hr 06/04/21 10:00 06/05/21 04:45 Nacl 0.9% 1000 Ml IV 75 mls/hr DIRECT ELLIOTT Administration Vancomycin HCl 1,750 mg/ 535 mls @ 333.333 mls/hr 06/04/21 23:30 06/04/21 23:38 Sodium Chloride IV 333.333 mls/hr Q12H ELLIOTT Administration Ketorolac Tromethamine 15 mg 06/01/21 11:00 06/03/21 22:19 Ketorolac 30 Mg/1 Ml Inj IV 06/06/21 10:59 15 mg Q6H PRN Administration Pain, Mild (1-3) Levetiracetam 500 mg 05/30/21 10:00 06/04/21 21:11 Levetiracetam 500 Mg Tab PO 500 mg BID ELLIOTT Administration Morphine Sulfate 2 mg 06/03/21 09:30 06/04/21 23:18 Morphine 2 Mg/1 Ml Inj IV 2 mg Q8H PRN Administration Pain, Moderate (4-6) Ondansetron HCl 4 mg 05/30/21 05:14 Ondansetron 4 Mg/2 Ml Inj IV Q8H PRN Nausea And Vomiting Propranolol HCl 40 mg 05/30/21 10:00 06/04/21 21:12 Propranolol 40 Mg Tab PO Not Given BID ELLIOTT Quetiapine Fumarate 100 mg 05/30/21 10:00 06/04/21 11:22 Quetiapine 100 Mg Tab PO 100 mg QAM ELLIOTT Administration Sodium Chloride 10 ml 05/30/21 10:00 06/04/21 21:11 Sodium Chloride 0.9% 10 Ml Flush Syringe IV 10 ml BID ELLIOTT Administration Sodium Chloride 10 ml 05/30/21 05:14 Sodium Chloride 0.9% 10 Ml Flush Syringe IV PRN PRN LINE FLUSH Tramadol HCl 100 mg 05/30/21 08:00 06/04/21 20:24 Tramadol 50 Mg Tab PO 100 mg TID ELLIOTT Administration Warfarin Sodium 10 mg 06/04/21 17:00 06/04/21 17:26 Warfarin 10 Mg Tab PO 06/05/21 16:59 10 mg ONCE@1700 NR Administration Nutrition/Malnutrition Assess - Dietary Evaluation Nutrition/Malnutrition Findings: Nutrition Notes Start: 05/31/21 12:39 Freq: Status: Active Protocol: Document 05/31/21 12:39 JAMES (Rec: 05/31/21 12:50 JAMES [email or web address]) Nutrition Notes Need for Assessment generated from: Education Initial or Follow up Assessment Current Diagnosis Hypertension Other Pertinent Diagnosis PE, Chest Pain, Cardiomyopathy , Bilateral LE Swelling. DVT, GERD, SOB, Seiz Current Diet Cardiac Diet (since B 05/30). Labs/Tests 05/31: WNL. Pertinent Medications 05/31: Warfarin 7.5 mg, others nutritionally unremarkable. Height 5 ft 7 in Weight 111 kg [place] Body Weight (kg) 61.36 BMI 38.3 Intake Prior to Admission Good Weight change and time frame Pt denies having loss body weight [employer]. Weight Status Obese Subjective/Other Information RD consult for warfarine use. No reports available on Pt's PO intake of meals at the time , will assess at F/U. Pt is on Nasal Cannula, O2 stauration @ 95%, according to Physical Assessment History notes. Pt has been using Coumadin since 01/2017, according to Progress notes, not a candidate for nutrition education. Pt lives at home with family, according to Progress notes. Percent of energy/protein needs met: Prescribed Cardiac Diet provides for energy/protein needs (2,230 Kcal/85 g) during LOS. Burn Absent Trauma Absent GI Symptoms None Food Allergy Yes Skin Integrity/Comment Assessment WNL. Minimum of two criteria No #1 Nutrition Diagnosis No nutrition diagnosis at this time Comments: Will assess Pt's PO intake of meals at F/U. Is patient on ventilator? No Is Patient Ambulatory and/or Out of Bed Yes REE-([facility]-ambulatory/OOB) [ 2356.419 [id number]] Kcal/Kg value to use for calculation 16 Approximate Energy Requirements Using 1776 kcal/Kg Calculation Used for Recommendations Kcal/kg Additional Notes Protein: 0.8-1 g/Kg AdjBW; 68- 86 g/day. Fluids: 1 ml/Kcal, or as per MD. Nutrition Intervention Change Diet Order: Continue Cardiac Diet. Follow-Up By: 06/07/21 Additional Comments Continue monitoring food tolerance, %PO intake of meals , and BM.
[2021-06-05] MEDS ORDERED: ACETAMINOPHEN 325 MG TAB PO PRN (07:48)
[2021-06-05] MEDS: traMADol 50 MG TAB PO SCH ×3 (08:05→20:20)
[2021-06-05] MEDS: ONDANSETRON 4 MG/2 ML INJ IV PRN ×2 (08:06→20:21)
[2021-06-05] MEDS: IBUPROFEN 800 MG TAB PO PRN (08:06)
[2021-06-05] MEDS: ALPRAZolam 0.5 MG TAB PO SCH ×3 (08:06→20:19)
[2021-06-05] MEDS: ASPIRIN EC 81 MG TAB PO SCH (09:13)
[2021-06-05] MEDS: QUEtiapine 100 MG TAB PO SCH (09:13)
[2021-06-05] MEDS: MORPHINE 2 MG/1 ML INJ IV PRN ×2 (09:13→17:18)
[2021-06-05] MEDS: FAMOTIDINE 20 MG TAB PO SCH ×2 (09:13→20:21)
[2021-06-05] MEDS: levETIRAcetam 500 MG TAB PO SCH ×2 (09:13→20:20)
--- NOTE | 2021-06-05 09:57 | Progress Note ---
Assessment and Plan Assessment and plan: 40 years old female with past medical history of hypertension, PE x2, (R lung 05/2016, L lung 01/2017--on coumadin), R leg DVT 03/2017, Graves Disease, heart murmur, aortic dissection, PERICARDITIS, thyroid storm GERD was brought to the hospital because of chest pain, retrosternal, sharp, radiating to back, 10/10, worsened by deep breaths, not relieved by anything, associated with SOB. Denies palpitations, diaphoresis. Endorses bilateral leg swelling, pain in her calves. Denies recent travel, immobilization, surgery, hospitalization, Hormonal contraceptive use. In the emergency room initial CT scan of the chest shows acute bilateral pulmonary thromboemboli with evidence of mild right ventricular restaurant. Scattered pneumonitis noted throughout the both lungs.'s were going to admit the patient to the medical telemetry put the patient on IV heparin we also order echocardiogram 06/05: Is unclear to me why the patient was transferred to the IMCU as I do not have any clear documentation to the results but in effect I was told by the nurse that the patient had pulled out his for her femoral line and did not have an access. Patient appears to have been having fever for a few days no known etiology we will proceed with a sepsis work-up although closely reviewing her case shows a history of thyroid storm in the past and she has not been receiving her thyroid medication while she does not have confusion at this time she does have tachycardia and tachypnea. We will give her a dose of IV levothyroxine today and start her daily dose of levothyroxine a.m. She has been on her propranolol although her home dose appears confusing as she gets 40 mg once daily and also 20 mg twice a day will discuss with her to clarify this and also with her pharmacy. She did have a right IJ triple-lumen catheter placed yesterday I discussed with her in the setting of well-documented by the nurse th at she takes Midol at home which contains acetaminophen she is agreeable to trial acetaminophen as she wants to come off the cooling blanket. I also consulted ID and ordered a urinalysis with urine culture and some fluid support. I reviewed her CT scan and echocardiogram while the CT mentions the pulmonary embolism with mild right heart strain the echo shows a RVSP of 32 mmHg. I will proceed with consulting pulmonary in her case she would definitely need a boarder hand outpatient. She continues on heparin drip while awaiting for therapeutic INR. In the meantime continue with antibiotic Right internal jugular vein triple-lumen catheter placement under ultrasound guidance #Sepsis -patient with Tmax of 102, tachycardic -patient with R femoral central line, ordered to be removed -blood cultures and UA collected -azithromycin and rocephin started by overnight Hospitalist -vancomycin added -will continue to monitor for source #Hypotension -patient with low blood pressure at night -IVF started -avoid antihypotensives -labetalol currently held #Acute pulmonary embolism #Acute chest pain #History of DVT on warfarin Troponin unremarkable, chest x-ray unremarkable, bilateral lower extremity venous Dopplers unremarkable for acute DVT CT angio chest revealing acute bilateral pulmonary emboli with evidence of right heart strain Home medication of warfarin 7.5 mg daily; however, INR 1.03. Patient endorses being compliant with her anticoagulation. Continue heparin drip and bridged warfarin daily until therapeutic (goal 2.53.5). TTE without evidence of right heart strain #Seizure disorder #Anxiety Continue home medications: Keppra 500 mg twice daily, Quetiapine 100 mg every morning and 300 mg nightly, alprazolam 0.5 mg 3 times daily #Hypothyroidism #microcytic anemia -stable Transfuse if hemoglobin less than 7 or patient become symptomatic #Morbid obesity #Weight loss counseling #Exercise counseling - BMI 39.1 - Counseled patient on the importance of weight loss, incorporating exercise, and dietary changes (lean meats, fresh fruits and vegetables, and water intake). Patient expresses understanding. #Advanced care planning -Disease education conducted, care plan discussed, diagnoses discussed, prognosis discussed, and patient acknowledges understanding with care plan -Time: +30 min History Interval history: Patient seen and examined, still c/o of feverish conditions. She is agreeable to try tylenol and Ibuprofen Hospitalist Physical - Physical exam Narrative exam: GENERAL: Well-developed well-nourished. In no acute distress. Appears uncomforta ble but no respiratory distress CHEST/LUNGS: CTAB on room air HEART/CARDIOVASCULAR: Tachycardic. No murmur, rubs or gallops appreciated. ABDOMEN: +BS. NT/ND. SKIN: No rashes noted. : Right IJ cath in place NEURO: No focal motor deficit. MUSCULOSKELETAL: No joint effusion, WARM TO TOUGH EXTREMITIES: No cyanosis, clubbing or edema. PSYCH: Cooperative. - Constitutional Vitals: Temp Pulse Resp BP Pulse Ox 101.8 F H 111 H 37 H 160/88 77 L 06/05/21 06:18 06/05/21 07:45 06/05/21 07:01 06/05/21 07:45 06/05/21 07:45 General appearance: Present: no acute distress, well-nourished HEART Score - HEART Score Troponin: Troponin T < 0.010 ng/mL (0.00-0.029) 05/30/21 04:46 Results - Labs CBC & Chem 7: 06/05/21 04:07 05/31/21 06:40 Labs: Laboratory Last Values WBC 13.0 K/mm3 (4.5-11.0) H 05/31/21 06:40 RBC 3.85 M/mm3 (3.65-5.03) 05/31/21 06:40 Hgb 8.4 gm/dl (10.1-14.3) L 06/05/21 04:07 Hct 27.3 % (30.3-42.9) L 06/05/21 04:07 MCV 74 fl (79-97) L 05/31/21 06:40 MCH 23 pg (28-32) L 05/31/21 06:40 MCHC 31 % (30-34) 05/31/21 06:40 RDW 25.7 % (13.2-15.2) H 05/31/21 06:40 Plt Count 244 K/mm3 (140-440) 06/05/21 04:07 Add Manual Diff Complete 05/31/21 06:40 Total Counted 100 05/31/21 06:40 Seg Neuts % (Manual) 77.0 % (40.0-70.0) H 05/31/21 06:40 Band Neutrophils % 1.0 % 05/31/21 06:40 Lymphocytes % (Manual) 16.0 % (13.4-35.0) 05/31/21 06:40 Reactive Lymphs % (Man) 0 % 05/31/21 06:40 Monocytes % (Manual) 6.0 % (0.0-7.3) 05/31/21 06:40 Eosinophils % (Manual) 0 % (0.0-4.3) 05/31/21 06:40 Basophils % (Manual) 0 % (0.0-1.8) 05/31/21 06:40 Metamyelocytes % 0 % 05/31/21 06:40 Myelocytes % 0 % 05/31/21 06:40 Promyelocytes % 0 % 05/31/21 06:40 Blast Cells % 0 % 05/31/21 06:40 Nucleated RBC % Not Reportable 05/31/21 06:40 Seg Neutrophils # Man 10.0 K/mm3 (1.8-7.7) H 05/31/21 06:40 Band Neutrophils # 0.1 K/mm3 05/31/21 06:40 Lymphocytes # (Manual) 2.1 K/mm3 (1.2-5.4) 05/31/21 06:40 Abs React Lymphs (Man) 0.0 K/mm3 05/31/21 06:40 Monocytes # (Manual) 0.8 K/mm3 (0.0-0.8) 05/31/21 06:40 Eosinophils # (Manual) 0.0 K/mm3 (0.0-0.4) 05/31/21 06:40 Basophils # (Manual) 0.0 K/mm3 (0.0-0.1) 05/31/21 06:40 Metamyelocytes # 0.0 K/mm3 05/31/21 06:40 Myelocytes # 0.0 K/mm3 05/31/21 06:40 Promyelocytes # 0.0 K/mm3 05/31/21 06:40 Blast Cells # 0.0 K/mm3 05/31/21 06:40 WBC Morphology Not Reportable 05/31/21 06:40 Hypersegmented Neuts Not Reportable 05/31/21 06:40 Hyposegmented Neuts Not Reportable 05/31/21 06:40 Hypogranular Neuts Not Reportable 05/31/21 06:40 Smudge Cells Not Reportable 05/31/21 06:40 Toxic Granulation Not Reportable 05/31/21 06:40 Toxic Vacuolation Not Reportable 05/31/21 06:40 Dohle Bodies Not Reportable 05/31/21 06:40 Pelger-Huet Anomaly Not Reportable 05/31/21 06:40 Jaime Rods Not Reportable 05/31/21 06:40 Platelet Estimate Consistent w auto 05/31/21 06:40 Clumped Platelets Not Reportable 05/31/21 06:40 Plt Clumps, EDTA Not Reportable 05/31/21 06:40 Large Platelets Not Reportable 05/31/21 06:40 Giant Platelets Not Reportable 05/31/21 06:40 Platelet Satelliting Not Reportable 05/31/21 06:40 Plt Morphology Comment Not Reportable 05/31/21 06:40 RBC Morphology Not Reportable 05/31/21 06:40 Dimorphic RBCs Not Reportable 05/31/21 06:40 Polychromasia Not Reportable 05/31/21 06:40 Hypochromasia 1+ 05/31/21 06:40 Poikilocytosis Not Reportable 05/31/21 06:40 Anisocytosis 2+ 05/31/21 06:40 Microcytosis Not Reportable 05/31/21 06:40 Macrocytosis Not Reportable 05/31/21 06:40 Spherocytes Few 05/31/21 06:40 Pappenheimer Bodies Not Reportable 05/31/21 06:40 Sickle Cells Not Reportable 05/31/21 06:40 Target Cells Not Reportable 05/31/21 06:40 Tear Drop Cells Not Reportable 05/31/21 06:40 Ovalocytes Not Reportable 05/31/21 06:40 Helmet Cells Not Reportable 05/31/21 06:40 [place] Bodies Not Reportable 05/31/21 06:40 [place] Rings Not Reportable 05/31/21 06:40 Tricia Cells Not Reportable 05/31/21 06:40 Bite Cells Not Reportable 05/31/21 06:40 Crenated Cell Not Reportable 05/31/21 06:40 Elliptocytes Not Reportable 05/31/21 06:40 Acanthocytes (Spur) Not Reportable 05/31/21 06:40 Rouleaux Not Reportable 05/31/21 06:40 Hemoglobin C Crystals Not Reportable 05/31/21 06:40 Schistocytes Not Reportable 05/31/21 06:40 Malaria parasites Not Reportable 05/31/21 06:40 Koffi Bodies Not Reportable 05/31/21 06:40 Hem Pathologist Commnt No 05/31/21 06:40 PT 17.7 Sec. (12.2-14.9) H 06/05/21 04:07 INR 1.30 (0.87-1.13) H 06/05/21 04:07 APTT 52.6 Sec. (24.2-36.6) H 05/31/21 06:40 Heparin Anti-Xa Level 0.49 U.I./ml (0.3-0.7) 06/04/21 10:18 Sodium 140 mmol/L (137-145) 05/31/21 06:40 Potassium 3.7 mmol/L (3.6-5.0) 05/31/21 06:40 Chloride 106.9 mmol/L (98-107) 05/31/21 06:40 Carbon Dioxide 23 mmol/L (22-30) 05/31/21 06:40 Anion Gap 14 mmol/L 05/31/21 06:40 BUN 13 mg/dL (7-17) 05/31/21 06:40 Creatinine 1.0 mg/dL (0.6-1.2) 05/31/21 06:40 Estimated GFR > 60 ml/min 05/31/21 06:40 BUN/Creatinine Ratio 13 % 05/31/21 06:40 Glucose 90 mg/dL (65-100) 05/31/21 06:40 Calcium 9.4 mg/dL (8.4-10.2) 05/31/21 06:40 Total Bilirubin 0.20 mg/dL (0.1-1.2) 05/29/21 23:24 AST 11 units/L (5-40) 05/29/21 23:24 ALT 10 units/L (7-56) 05/29/21 23:24 Alkaline Phosphatase 88 units/L (35-129) 05/29/21 23:24 Troponin T < 0.010 ng/mL (0.00-0.029) 05/30/21 04:46 Total Protein 6.9 g/dL (6.3-8.2) 05/29/21 23:24 Albumin 3.5 g/dL (3.9-5) L 05/29/21 23:24 Albumin/Globulin Ratio 1.0 % 05/29/21 23:24 Lipase 31 units/L (13-60) 05/30/21 04:41 HCG, Qual Negative (Negative) 05/29/21 23:24 Microbiology: Microbiology 06/04/21 07:41 Peripheral/Venous Blood Culture - Preliminary NO GROWTH AFTER 24 HOURS 06/04/21 06:18 Peripheral/Venous Blood Culture - Preliminary NO GROWTH AFTER 24 HOURS Rojas/IV: Voiding Method Toilet Active Medications - Current Medications Current Medications: Generic Name Dose Route Start Last Admin Trade Name Freq PRN Reason Stop Dose Admin Acetaminophen 650 mg 06/05/21 07:48 Acetaminophen 325 Mg Tab PO Q6H PRN Pain, Mild (1-3) Albuterol 2.5 mg 05/30/21 05:14 Albuterol 2.5 Mg/3 Ml Nebu IH Q3HRT PRN Shortness Of Breath Alprazolam 0.5 mg 05/30/21 08:00 06/05/21 08:06 Alprazolam 0.5 Mg Tab PO 0.5 mg TID ELLIOTT Administration Aspirin 81 mg 05/30/21 10:00 06/05/21 09:13 Aspirin Ec 81 Mg Tab PO 81 mg QDAY ELLIOTT Administration Famotidine 20 mg 05/30/21 10:00 06/05/21 09:13 Famotidine 20 Mg Tab PO 20 mg BID ELLIOTT Administration Heparin Sodium (Porcine) 4,500 unit 06/03/21 09:46 Heparin 10,000 Units/10 Ml Vial 40 unit/kg (4500 unit) IV Q6H PRN Anti-Xa Assay < 0.1 units/ml Heparin Sodium/Sodium Chloride 25,000 unit in 500 mls @ 30 mls/hr 06/03/21 10:00 06/05/21 06:17 Heparin/ 0.45% Nacl-25,000 Unit/500 Ml IV 1,900 units/hr TITR ELLIOTT 38 mls/hr Administration Protocol 1,500 UNITS/HR Ceftriaxone Sodium 1 gm in 50 mls @ 100 mls/hr 06/04/21 04:00 06/05/21 03:43 Rocephin/Ns 1 Gm/50 Ml IV 06/08/21 04:29 100 mls/hr Q24H ELLIOTT Administration Protocol Azithromycin 500 mg in 250 mls @ 250 mls/hr 06/04/21 04:00 06/05/21 03:21 Zithromax/Ns IV 06/08/21 04:59 250 mls/hr Q24H ELLIOTT Administration Sodium Chloride 1,000 mls @ 75 mls/hr 06/04/21 10:00 04/16/22 04:45 Nacl 0.9% 1000 Ml IV 75 mls/hr DIRECT ELLIOTT Administration Vancomycin HCl 1,750 mg/ 535 mls @ 333.333 mls/hr 06/04/21 23:30 06/04/21 23:38 Sodium Chloride IV 333.333 mls/hr Q12H ELLIOTT Administration Ibuprofen 800 mg 06/05/21 08:00 06/05/21 08:06 Ibuprofen 800 Mg Tab PO 800 mg Q8H PRN Administration Fever >101 Levetiracetam 500 mg 05/30/21 10:00 06/05/21 09:13 Levetiracetam 500 Mg Tab PO 500 mg BID ELLIOTT Administration Morphine Sulfate 2 mg 06/03/21 09:30 06/05/21 09:13 Morphine 2 Mg/1 Ml Inj IV 2 mg Q8H PRN Administration Pain, Moderate (4-6) Ondansetron HCl 4 mg 06/05/21 08:00 06/05/21 08:06 Ondansetron 4 Mg/2 Ml Inj IV 4 mg Q4H PRN Administration Nausea And Vomiting Propranolol HCl 40 mg 05/30/21 10:00 06/04/21 21:12 Propranolol 40 Mg Tab PO Not Given BID ELLIOTT Quetiapine Fumarate 100 mg 05/30/21 10:00 06/05/21 09:13 Quetiapine 100 Mg Tab PO 100 mg QAM ELLIOTT Administration Sodium Chloride 10 ml 05/30/21 10:00 06/05/21 09:14 Sodium Chloride 0.9% 10 Ml Flush Syringe IV 10 ml BID ELLIOTT Administration Sodium Chloride 10 ml 05/30/21 05:14 Sodium Chloride 0.9% 10 Ml Flush Syringe IV PRN PRN LINE FLUSH Sodium Chloride 3,330 ml 06/05/21 09:51 Sodium Chloride 0.9% 1000 Ml Iv Soln 30 ml/kg (3330 ml) 06/05/21 09:52 IV ONCE ONE Tramadol HCl 100 mg 05/30/21 08:00 06/05/21 08:05 Tramadol 50 Mg Tab PO 100 mg TID ELLIOTT Administration Warfarin Sodium 10 mg 06/04/21 17:00 06/04/21 17:26 Warfarin 10 Mg Tab PO 06/05/21 16:59 10 mg ONCE@1700 NR Administration Nutrition/Malnutrition Assess - Dietary Evaluation Nutrition/Malnutrition Findings: Nutrition Notes Start: 05/31/21 12:39 Freq: Status: Active Protocol: Document 05/31/21 12:39 JAMES (Rec: 05/31/21 12:50 JAMES [id number]) Nutrition Notes Need for Assessment generated from: Education Initial or Follow up Assessment Current Diagnosis Hypertension Other Pertinent Diagnosis PE, Chest Pain, Cardiomyopathy , Bilateral LE Swelling. DVT, GERD, SOB, Seiz Current Diet Cardiac Diet (since B 05/30). Labs/Tests 05/31: WNL. Pertinent Medications 05/31: Warfarin 7.5 mg, others nutritionally unremarkable. Height 5 ft 7 in Weight 111 kg [place] Body Weight (kg) 61.36 BMI 38.3 Intake Prior to Admission Good Weight change and time frame Pt denies having loss body weight [employer]. Weight Status Obese Subjective/Other Information RD consult for warfarine use. No reports available on Pt's PO intake of meals at the time , will assess at F/U. Pt is on Nasal Cannula, O2 stauration @ 95%, according to Physical Assessment History notes. Pt has been using Coumadin since 01/2017, according to Progress notes, not a candidate for nutrition education. Pt lives at home with family, according to Progress notes. Percent of energy/protein needs met: Prescribed Cardiac Diet provides for energy/protein needs (2,230 Kcal/85 g) during LOS. Burn Absent Trauma Absent GI Symptoms None Food Allergy Yes Skin Integrity/Comment Assessment WNL. Minimum of two criteria No #1 Nutrition Diagnosis No nutrition diagnosis at this time Comments: Will assess Pt's PO intake of meals at F/U. Is patient on ventilator? No Is Patient Ambulatory and/or Out of Bed Yes [facility] [ 2356.419 [id number]] Kcal/Kg value to use for calculation 16 Approximate Energy Requirements Using 1776 kcal/Kg Calculation Used for Recommendations Kcal/kg Additional Notes Protein: 0.8-1 g/Kg AdjBW; 68- 86 g/day. Fluids: 1 ml/Kcal, or as per MD. Nutrition Intervention Change Diet Order: Continue Cardiac Diet. Follow-Up By: 06/07/21 Additional Comments Continue monitoring food tolerance, %PO intake of meals , and BM.
[2021-06-05] MEDS ORDERED: SODIUM CHLORIDE 0.9% 1000 ML IV SOLN IV ONE (10:00)
[2021-06-05] MEDS ORDERED: LEVOTHYROXINE 100 MCG INJ IV ONE (11:00)
[2021-06-05 11:18] LABS: Hematocrit 24.8 % (30.3-42.9); Hemoglobin 7.5 gm/dl (10.1-14.3); Mean Corpuscular HGB Conc 30 % (30-34); Mean Corpuscular Volume 74 fl (79-97); Platelet Count 219 K/mm3 (140-440); Red Blood Count 3.37 M/mm3 (3.65-5.03)
[2021-06-05] MEDS: PROPRANOLOL 40 MG TAB PO SCH ×2 (11:24→20:21)
[2021-06-05 11:25] LABS: Blood Urea Nitrogen 8 mg/dL (7-17); Calcium 7.8 mg/dL (8.4-10.2); Hemolysis Index 0
[2021-06-05] MEDS: VANCOMYCIN 1,500 MG in SODIUM CHLORIDE 0.9% 500 ML 500 ML IV SCH (11:25)
[2021-06-05 11:27] LABS: BUN/Creatinine Ratio 11
--- NOTE | 2021-06-05 11:33 | Progress Note ---
Subjective Date of service: 06/05/21 Principal diagnosis: sepsis Interval history: ID Plan of care note: Received consultation for fever of unknown origin. 40-year-old female with history of hypertension, DVT, previous PE, GERD, morbid obesity, admitted on 05/29/2021 due to chest pain radiated to the back, shortness of breath. On arrival patient was afebrile normal vital signs. My 06/04/2021 temperature went up to 103.1 and she has been persistently febrile since then. WBC went up to 13. Initial CTA shows acute bilateral pulmonary thromboemboli with right ventricular strain. CT also noted bilateral groundglass opacities. Lower extremity ultrasound no DVT. Blood culture 06/04/2021 no growth today. Assessment/Plan: #SIRS rule out sepsis: Not present on admission, now with persistent fever, likely secondary to bilateral pulmonary thromboemboli and possible pneumonia. Recommendations: -Check SARS-CoV-2 PCR influenza PCR -Follow-up blood cultures. Negative so far -Obtain urinalysis -Continue ceftriaxone, azithromycin, vancomycin for now -May stop vancomycin if blood cultures negative for 48 hours Full consultation to follow on Monday, please call me if any questions Susan Pires MD Infectious Disease [place] [facility] C: [phone] O: [phone] Objective - Constitutional Vitals: Vital Signs Temp Pulse Resp BP Pulse Ox 101.8 F H 92 H 37 H 105/43 77 L 06/05/21 06:18 06/05/21 11:24 06/05/21 07:01 06/05/21 11:24 06/05/21 07:45 Temperature -Last 24 Hours Temperature 101.8 F Temperature 101.9 F Temperature 101.8 F Temperature 101.5 F Temperature 100.9 F Temperature 100.6 F Temperature 99.8 F Temperature 99.4 F Temperature 100.2 F Temperature 100.2 F Temperature 99.6 F Temperature 100.2 F Temperature 101.5 F Temperature 102.6 F Temperature 102.6 F Temperature 103.6 F Temperature 102.9 F - Labs CBC & Chem 7: 06/05/21 11:01 06/05/21 10:40 Labs: Abnormal lab results 06/05/21 06/05/21 06/05/21 Range/Units 04:07 04:07 10:40 WBC (4.5-11.0) K/mm3 RBC (3.65-5.03) M/mm3 Hgb 8.4 L (10.1-14.3) gm/dl Hct 27.3 L (30.3-42.9) % MCV (79-97) fl MCH (28-32) pg RDW (13.2-15.2) % PT 17.7 H (12.2-14.9) Sec. INR 1.30 H (0.87-1.13) Sodium 135 L (137-145) mmol/L Carbon Dioxide 20 L (22-30) mmol/L Calcium 7.8 L (8.4-10.2) mg/dL 06/05/21 Range/Units 11:01 WBC 14.0 H (4.5-11.0) K/mm3 RBC 3.37 L (3.65-5.03) M/mm3 Hgb 7.5 L (10.1-14.3) gm/dl Hct 24.8 L (30.3-42.9) % MCV 74 L (79-97) fl MCH 22 L (28-32) pg RDW 25.0 H (13.2-15.2) % PT (12.2-14.9) Sec. INR (0.87-1.13) Sodium (137-145) mmol/L Carbon Dioxide (22-30) mmol/L Calcium (8.4-10.2) mg/dL
[2021-06-05 11:57] LABS: Basophils % (Manual) 0 % (0.0-1.8); Total Cells Counted 100
[2021-06-05 11:58] LABS: Anisocytosis 2+; Hypochromasia 2+; Platelet Estimate Consistent w Auto
--- NOTE | 2021-06-05 12:05 | Consultation ---
History of Present Illness Consult date: 06/05/21 Requesting physician: AFRICA PHILIP History of present illness: 40-year-old female with history of hypertension, DVT, previous PE, GERD, morbid obesity, admitted on 05/29/2021 due to chest pain radiated to the back, shortness of breath. On arrival patient was afebrile normal vital signs. On 06/04/2021 temperature went up to 103.1 and she has been persistently febrile since then. She is allergic to Tylenol and a consult was placed to transfer the patient to ICU for use of cooling blankets as the staff are unable to monitor a cooling blanket on the floor. She did not have an indication for ICU care, so a recommendation was made for admission to the IMCU. In addition to the fevers, she has a leukocytosis of 13. Initial CTA shows acute bilateral pulmonary thromboemboli with right ventricular strain. CT also noted bilateral groundglass opacities. Lower extremity ultrasound no DVT. Blood culture 06/04/2021 no growth to date. A RIJ CVL was placed for access Past History Past Medical History: DVT, hypertension, other (PE.pericarditis, pt states hyperthyroidism, thyroid storm, PE x2, (R lung 05/2016, L lung 01/2017--on coumadin), R leg DVT 03/2017, Graves Disease, heart murmur, aortic dissection) Past Surgical History: Other (Left arm surgery 02/2017, Right knee, Rt leg. 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, [place] Filter) Social history: other (No smoking) Family history: no significant family history Medications and Allergies Allergies Allergy/AdvReac Type Severity Reaction Status Date / Time acetaminophen [From Tylenol] Allergy Hives Verified 12/16/20 11:52 enoxaparin [From Lovenox] Allergy Rash, Verified 01/18/21 13:51 fever, vomiting garlic Allergy Hives Verified 01/18/21 13:51 oxycodone [From Percocet] Allergy Itching, Verified 01/18/21 13:51 rash peanut oil Allergy Rash Verified 01/18/21 13:51 Penicillins Allergy hives, Verified 01/18/21 13:51 vomiting ibuprofen [From Motrin] AdvReac nausea/vomi Verified 01/18/21 13:51 ting Home Medications Medication Instructions Recorded Confirmed Last Taken Type ALPRAZolam [Xanax TAB] 0.5 mg PO BID #14 tablet 06/23/21 Unknown Rx Aspirin EC [Halfprin EC] 81 mg PO QDAY #30 tab 06/23/21 Unknown Rx Famotidine [Pepcid] 20 mg PO BID #30 tablet 06/23/21 Unknown Rx Gabapentin 100 mg PO Q8HR #90 capsule 06/23/21 Unknown Rx Levothyroxine [Synthroid] 150 mcg PO DAILY@0600 #30 tablet 06/23/21 Unknown Rx QUEtiapine [SEROquel] 100 mg PO QAM #30 tab 06/23/21 Unknown Rx Warfarin [Coumadin] 15 mg PO DAILY@1700 #60 tablet 06/23/21 Unknown Rx amLODIPine 10 mg PO QDAY #30 tablet 06/23/21 Unknown Rx cephALEXin [Keflex] 500 mg PO Q8HR #84 cap 06/23/21 Unknown Rx levETIRAcetam [Keppra TAB] 500 mg PO BID #60 tab 06/23/21 Unknown Rx propranoloL [Inderal] 40 mg PO BID #60 tab 06/23/21 Unknown Rx traMADoL [Ultram 50 MG tab] 50 mg PO TID PRN #12 06/23/21 Unknown Rx Active Meds: Active Medications Acetaminophen (Acetaminophen 325 Mg Tab) 650 mg PO Q6H PRN PRN Reason: Pain, Mild (1-3) Albuterol (Albuterol 2.5 Mg/3 Ml Nebu) 2.5 mg IH Q3HRT PRN PRN Reason: Shortness Of Breath Alprazolam (Alprazolam 0.5 Mg Tab) 0.5 mg PO TID [facility] Last Admin: 06/05/21 08:06 Dose: 0.5 mg Aspirin (Aspirin Ec 81 Mg Tab) 81 mg PO QDAY [facility] Last Admin: 06/05/21 09:13 Dose: 81 mg Famotidine (Famotidine 20 Mg Tab) 20 mg PO BID [facility] Last Admin: 06/05/21 09:13 Dose: 20 mg Heparin Sodium (Porcine) (Heparin 10,000 Units/10 Ml Vial) 4,500 unit 40 unit/kg (4500 unit) IV Q6H PRN PRN Reason: Anti-Xa Assay < 0.1 units/ml Heparin Sodium/Sodium Chloride (Heparin/ 0.45% Nacl-25,000 Unit/500 Ml) 25,000 unit in 500 mls @ 30 mls/hr IV TITR [facility]; Protocol Last Admin: 06/05/21 06:17 Dose: 1,900 units/hr, 38 mls/hr Ceftriaxone Sodium (Rocephin/Ns 1 Gm/50 Ml) 1 gm in 50 mls @ 100 mls/hr IV Q24H [facility]; Protocol Stop: 06/08/21 04:29 Last Admin: 06/05/21 03:43 Dose: 100 mls/hr Azithromycin (Zithromax/Ns) 500 mg in 250 mls @ 250 mls/hr IV Q24H [facility] Stop: 06/08/21 04:59 Last Admin: 06/05/21 03:21 Dose: 250 mls/hr Sodium Chloride (Nacl 0.9% 1000 Ml) 1,000 mls @ 75 mls/hr IV DIRECT [facility] Last Admin: 06/05/21 04:45 Dose: 75 mls/hr Vancomycin HCl 1,500 mg/ (Sodium Chloride) 530 mls @ 333.333 mls/hr IV Q12H [facility] Last Admin: 06/05/21 11:25 Dose: 333.333 mls/hr Ibuprofen (Ibuprofen 800 Mg Tab) 800 mg PO Q8H PRN PRN Reason: Fever >101 Last Admin: 06/05/21 08:06 Dose: 800 mg Levetiracetam (Levetiracetam 500 Mg Tab) 500 mg PO BID [facility] Last Admin: 06/05/21 09:13 Dose: 500 mg Levothyroxine Sodium (Levothyroxine 150 Mcg Tab) 150 mcg PO DAILY@0600 [facility] Morphine Sulfate (Morphine 2 Mg/1 Ml Inj) 2 mg IV Q8H PRN PRN Reason: Pain, Moderate (4-6) Last Admin: 06/05/21 09:13 Dose: 2 mg Ondansetron HCl (Ondansetron 4 Mg/2 Ml Inj) 4 mg IV Q4H PRN PRN Reason: Nausea And Vomiting Last Admin: 06/05/21 08:06 Dose: 4 mg Propranolol HCl (Propranolol 40 Mg Tab) 40 mg PO BID [facility] Last Admin: 06/05/21 11:24 Dose: 40 mg Quetiapine Fumarate (Quetiapine 100 Mg Tab) 100 mg PO QAM [facility] Last Admin: 06/05/21 09:13 Dose: 100 mg Sodium Chloride (Sodium Chloride 0.9% 10 Ml Flush Syringe) 10 ml IV BID [facility] Last Admin: 06/05/21 09:14 Dose: 10 ml Sodium Chloride (Sodium Chloride 0.9% 10 Ml Flush Syringe) 10 ml IV PRN PRN PRN Reason: LINE FLUSH Tramadol HCl (Tramadol 50 Mg Tab) 100 mg PO TID [facility] Last Admin: 06/05/21 08:05 Dose: 100 mg Warfarin Sodium (Warfarin 10 Mg Tab) 10 mg PO ONCE@1700 NR Stop: 06/06/21 16:59 Physical Examination Vital signs: Vital Signs Temp Pulse Resp BP Pulse Ox 98 F 80 20 120/64 97 05/29/21 23:13 05/29/21 23:13 05/29/21 23:13 05/29/21 23:13 05/29/21 23:13 Constitutional: appears uncomfortable, other (morbidly obese female with mildly increased respiratory effort at rest) Eyes: non-icteric ENT: oropharynx moist Neck: supple, no lymphadenopathy, no JVD, other (large neck circumference; RIJ CVL) Effort: mildly labored Ascultation: Bilateral: clear, diminished breath sounds Percussion: Bilateral: not dull Cardiovascular: regular rate and rhythm Gastrointestinal: normoactive bowel sounds, soft, non-tender, other (distended but soft) Integumentary: normal Extremities: no cyanosis, no edema, pulses normal, no ischemia or petechiae Neurologic: non-focal exam (grossly), pupils equal and round, CN II-XII normal, motor strength normal Psychiatric: flat Results - Laboratory Findings CBC and BMP: 06/20/21 05:00 06/20/21 05:00 PT/INR, D-dimer PT 17.7 Sec. (12.2-14.9) H 06/05/21 04:07 INR 1.30 (0.87-1.13) H 06/05/21 04:07 Abnormal lab findings: Abnormal Labs 05/29/21 05/29/21 05/29/21 23:24 23:24 23:29 WBC RBC Hgb 8.8 L Hct 28.7 L MCV 74 L MCH 23 L RDW 26.4 H Seg Neuts % (Manual) 75.0 H Lymphocytes % (Manual) Seg Neutrophils # Man Lymphocytes # (Manual) PT INR APTT 20.9 L Heparin Anti-Xa Level Sodium Carbon Dioxide 20 L Calcium Albumin 3.5 L TSH 05/30/21 05/30/21 05/30/21 08:25 08:25 13:35 WBC RBC Hgb 8.8 L Hct 27.5 L MCV MCH RDW Seg Neuts % (Manual) Lymphocytes % (Manual) Seg Neutrophils # Man Lymphocytes # (Manual) PT 15.4 H INR APTT 107.1 H* Heparin Anti-Xa Level 0.82 H Sodium Carbon Dioxide Calcium Albumin TSH 05/30/21 05/31/21 05/31/21 20:57 06:40 06:40 WBC 13.0 H RBC Hgb 8.9 L Hct 28.5 L MCV 74 L MCH 23 L RDW 25.7 H Seg Neuts % (Manual) 77.0 H Lymphocytes % (Manual) Seg Neutrophils # Man 10.0 H Lymphocytes # (Manual) PT INR APTT 52.6 H Heparin Anti-Xa Level 0.15 L 0.74 H Sodium Carbon Dioxide Calcium Albumin TSH 06/01/21 06/01/21 06/02/21 09:55 10:27 06:15 WBC RBC Hgb 9.4 L Hct MCV MCH RDW Seg Neuts % (Manual) Lymphocytes % (Manual) Seg Neutrophils # Man Lymphocytes # (Manual) PT INR APTT Heparin Anti-Xa Level 0.13 L 0.25 L Sodium Carbon Dioxide Calcium Albumin TSH 06/02/21 06/03/21 06/04/21 23:30 Unknown 07:39 WBC RBC Hgb 8.5 L Hct 28.0 L MCV MCH RDW Seg Neuts % (Manual) Lymphocytes % (Manual) Seg Neutrophils # Man Lymphocytes # (Manual) PT 15.0 H INR APTT Heparin Anti-Xa Level 0.19 L Sodium Carbon Dioxide Calcium Albumin TSH 06/05/21 06/05/21 06/05/21 04:07 04:07 10:40 WBC RBC Hgb 8.4 L Hct 27.3 L MCV MCH RDW Seg Neuts % (Manual) Lymphocytes % (Manual) Seg Neutrophils # Man Lymphocytes # (Manual) PT 17.7 H INR 1.30 H APTT Heparin Anti-Xa Level Sodium Carbon Dioxide Calcium Albumin TSH 0.034 L 04/16/22 04/16/22 10:40 11:01 WBC 14.0 H RBC 3.37 L Hgb 7.5 L Hct 24.8 L MCV 74 L MCH 22 L RDW 25.0 H Seg Neuts % (Manual) 94.0 H Lymphocytes % (Manual) 3.0 L Seg Neutrophils # Man 13.2 H Lymphocytes # (Manual) 0.4 L PT INR APTT Heparin Anti-Xa Level Sodium 135 L Carbon Dioxide 20 L Calcium 7.8 L Albumin TSH - Diagnostic Findings Chest x-ray: image reviewed Assessment and Plan Sepsis -patient with Tmax of 102, tachycardic - Sepsis MSSA Bacteremia Acute pulmonary embolism Acute chest pain History of DVT on warfarin Seizure disorder Anxiety Hypothyroidism microcytic anemia Morbid obesity -patient with R femoral central line- removed, RIJ CVL was placed earlier - continue full anticoagulation with IV Heparin - follow H&H closely; PRBC transfusions for serum Hb < 7.0 g/dl - continue vancomycin; de-escalate per ID recommendations Troponin unremarkable, chest x-ray unremarkable, bilateral lower extremity venous Dopplers unremarkable for acute DVT CT angio chest revealing acute bilateral pulmonary emboli with evidence of right heart strain Home medication of warfarin 7.5 mg daily; however, INR 1.03. Patient endorses being compliant with her anticoagulation. Continue heparin drip and bridged warfarin daily until therapeutic (goal 2.53.5). TTE without evidence of right heart strain - continue Keppra as AED - continue thyroid replacement therapy - follow clinically re: fever curves / trend WBC - supplemental oxygen to keep O2 sats > 90% - bronchodilators (ALVERTO) with pulm hygiene per RT - continue to avoid nephrotoxins, renally dose all medications - continue mobility protocols to prevent pressure ulcers - PT/OT as tolerated - Wound care per RN/WCT - continue accuchecks with glycemic control per SSI for target blood glucose < 180 mg/dL - tobacco abstinence strongly counseled at the bedside - home oxygen evaluation at discharge - prn analgesia per pain score - GI prophylaxis with Pepcid - Flu & pneumovax per protocol - Pulmonary out patient follow up for PFTs and optimization of respiratory status - life style modifications counseled re: weight loss, better medication compliance - continue other care per attending / other consultants CC time 35 minutes
[2021-06-05 12:30] LABS: Bacteria,Urine 4+ /HPF (Negative); Bilirubin,Urine NEG (Negative); Blood,Urine MOD (Negative); Color,Urine Yellow (Yellow); Mucus,Urine FEW /HPF; Protein,Urine <15 mg/dL mg/dL (Negative); Urobilinogen,Urine < 2.0 mg/dL (<2.0)
[2021-06-05] MEDS ORDERED: WARFARIN 10 MG TAB PO NR (17:00)
[2021-06-06] MEDS: MORPHINE 2 MG/1 ML INJ IV PRN ×3 (00:35→22:28)
[2021-06-06] MEDS: VANCOMYCIN 1,500 MG in SODIUM CHLORIDE 0.9% 500 ML 500 ML IV SCH ×2 (00:35→17:14)
[2021-06-06] MEDS: IBUPROFEN 800 MG TAB PO PRN ×2 (01:19→13:37)
[2021-06-06] MEDS: levETIRAcetam 500 MG TAB PO SCH ×3 (03:35→21:30)
[2021-06-06] MEDS: FAMOTIDINE 20 MG TAB PO SCH ×3 (03:35→21:30)
[2021-06-06] MEDS: PROPRANOLOL 40 MG TAB PO SCH ×2 (03:35→10:10)
[2021-06-06] MEDS: AZITHROMYCIN/NS 500 MG/250 ML 500 MG/250 ML BAG IV SCH (04:29)
[2021-06-06] MEDS: cefTRIAXone/NS 1 GM/50 ML 1 GM/50 ML BAG IV SCH (04:29)
[2021-06-06] MEDS: LEVOTHYROXINE 150 MCG TAB PO SCH (05:55)
[2021-06-06] MEDS: traMADol 50 MG TAB PO SCH ×3 (07:09→21:29)
[2021-06-06] MEDS: ALPRAZolam 0.5 MG TAB PO SCH ×3 (07:09→21:29)
[2021-06-06 08:13] LABS: INR 1.27 (0.87-1.13)
[2021-06-06] MEDS: QUEtiapine 100 MG TAB PO SCH (10:10)
[2021-06-06] MEDS: HEPARIN/ 0.45% NACL DRIP 25,000 UNIT/500 ML BAG IV SCH (10:10)
[2021-06-06] MEDS: ASPIRIN EC 81 MG TAB PO SCH (10:10)
--- NOTE | 2021-06-06 10:20 | Progress Note ---
Assessment and Plan Assessment and plan: 40 years old female with past medical history of hypertension, PE x2, (R lung 05/2016, L lung 01/2017--on coumadin), R leg DVT 03/2017, Graves Disease, heart murmur, aortic dissection, PERICARDITIS, thyroid storm GERD was brought to the hospital because of chest pain, retrosternal, sharp, radiating to back, 10/10, worsened by deep breaths, not relieved by anything, associated with SOB. Denies palpitations, diaphoresis. Endorses bilateral leg swelling, pain in her calves. Denies recent travel, immobilization, surgery, hospitalization, Hormonal contraceptive use. In the emergency room initial CT scan of the chest shows acute bilateral pulmonary thromboemboli with evidence of mild right ventricular restaurant. Scattered pneumonitis noted throughout the both lungs.'s were going to admit the patient to the medical telemetry put the patient on IV heparin we also order echocardiogram 06/05: Is unclear to me why the patient was transferred to the IMCU as I do not have any clear documentation to the results but in effect I was told by the nurse that the patient had pulled out his for her femoral line and did not have an access. Patient appears to have been having fever for a few days no known etiology we will proceed with a sepsis work-up although closely reviewing her case shows a history of thyroid storm in the past and she has not been receiving her thyroid medication while she does not have confusion at this time she does have tachycardia and tachypnea. We will give her a dose of IV levothyroxine today and start her daily dose of levothyroxine a.m. She has been on her propranolol although her home dose appears confusing as she gets 40 mg once daily and also 20 mg twice a day will discuss with her to clarify this and also with her pharmacy. She did have a right IJ triple-lumen catheter placed yesterday I discussed with her in the setting of well-documented by the nurse that she takes Midol at home which contains acetaminophen she is agreeable to trial acetaminophen as she wants to come off the cooling blanket. I also consulted ID and ordered a urinalysis with urine culture and some fluid support. I reviewed her CT scan and echocardiogram while the CT mentions the pulmonary embolism with mild right heart strain the echo shows a RVSP of 32 mmHg. I will proceed with consulting pulmonary in her case she would definitely need a endless steamer tender outpatient. She continues on heparin drip while awaiting for therapeutic INR. In the meantime continue with antibiotic Right internal jugular vein triple-lumen catheter placement under ultrasound guidance 06/06: Patient seen and examined, showing some improvement, will follow cultures result, Continue abx, clinical stable, ID input, close eye on Hemoglobin. WBC mildly trended up. will transfer back to [facility]. #Sepsis -patient with Tmax of 102, tachycardic -patient with R femoral central line, ordered to be removed -blood cultures and UA collected -azithromycin and rocephin started by overnight Hospitalist -vancomycin added -will continue to monitor for source #Hypotension -Patient with low blood pressure at night -IVF started -avoid antihypotensives -labetalol currently held #Acute pulmonary embolism #Acute chest pain #History of DVT on warfarin Troponin unremarkable, chest x-ray unremarkable, bilateral lower extremity venous Dopplers unremarkable for acute DVT CT angio chest revealing acute bilateral pulmonary emboli with evidence of right heart strain Home medication of warfarin 7.5 mg daily; however, INR 1.03. Patient endorses being compliant with her anticoagulation. Continue heparin drip and bridged warfarin daily until therapeutic (goal 2.53.5). TTE without evidence of right heart strain #Seizure disorder #Anxiety Continue home medications: Keppra 500 mg twice daily, Quetiapine 100 mg every morning and 300 mg nightly, alprazolam 0.5 mg 3 times daily #Hypothyroidism #microcytic anemia -stable Transfuse if hemoglobin less than 7 or patient become symptomatic #Morbid obesity #Weight loss counseling #Exercise counseling - BMI 39.1 - Counseled patient on the importance of weight loss, incorporating exercise, and dietary changes (lean meats, fresh fruits and vegetables, and water intake). Patient expresses understanding. #Advanced care planning -Disease education conducted, care plan discussed, diagnoses discussed, prognosis discussed, and patient acknowledges understanding with care plan -Time: +30 min History Interval history: Patient seen and examined, showing some improvement, had no adverse reaction to the Ibuprofen or acetaminophen. Hospitalist Physical - Physical exam Narrative exam: GENERAL: Well-developed well-nourished. In no acute distress. but no respiratory distress CHEST/LUNGS: CTAB on room air HEART/CARDIOVASCULAR: Tachycardic. No murmur, rubs or gallops appreciated. ABDOMEN: +BS. NT/ND. SKIN: No rashes noted. : Right IJ cath in place NEURO: No focal motor deficit. MUSCULOSKELETAL: No joint effusion, WARM TO TOUGH EXTREMITIES: No cyanosis, clubbing or edema. PSYCH: Cooperative. - Constitutional Vitals: Temp Pulse Resp BP Pulse Ox 97.9 F 91 H 28 H 127/80 100 06/06/21 08:45 06/06/21 10:10 06/06/21 09:00 06/06/21 10:10 06/06/21 09:00 General appearance: Present: no acute distress, well-nourished HEART Score - HEART Score Troponin: Troponin T < 0.010 ng/mL (0.00-0.029) 05/30/21 04:46 Results - Labs CBC & Chem 7: 06/05/21 11:01 06/05/21 10:40 Labs: Laboratory Last Values WBC 14.0 K/mm3 (4.5-11.0) H 06/05/21 11:01 RBC 3.37 M/mm3 (3.65-5.03) L 06/05/21 11:01 Hgb 7.5 gm/dl (10.1-14.3) L 06/05/21 11:01 Hct 24.8 % (30.3-42.9) L 06/05/21 11:01 MCV 74 fl (79-97) L 06/05/21 11:01 MCH 22 pg (28-32) L 06/05/21 11:01 MCHC 30 % (30-34) 06/05/21 11:01 RDW 25.0 % (13.2-15.2) H 06/05/21 11:01 Plt Count 219 K/mm3 (140-440) 06/05/21 11:01 Add Manual Diff Complete 06/05/21 11:01 Total Counted 100 06/05/21 11:01 Seg Neuts % (Manual) 94.0 % (40.0-70.0) H 06/05/21 11:01 Band Neutrophils % 0 % 06/05/21 11:01 Lymphocytes % (Manual) 3.0 % (13.4-35.0) L 06/05/21 11:01 Reactive Lymphs % (Man) 0 % 06/05/21 11:01 Monocytes % (Manual) 1.0 % (0.0-7.3) 06/05/21 11:01 Eosinophils % (Manual) 2.0 % (0.0-4.3) 06/05/21 11:01 Basophils % (Manual) 0 % (0.0-1.8) 06/05/21 11:01 Metamyelocytes % 0 % 06/05/21 11:01 Myelocytes % 0 % 06/05/21 11:01 Promyelocytes % 0 % 06/05/21 11:01 Blast Cells % 0 % 06/05/21 11:01 Nucleated RBC % Not Reportable 06/05/21 11:01 Seg Neutrophils # Man 13.2 K/mm3 (1.8-7.7) H 06/05/21 11:01 Band Neutrophils # 0.0 K/mm3 06/05/21 11:01 Lymphocytes # (Manual) 0.4 K/mm3 (1.2-5.4) L 06/05/21 11:01 Abs React Lymphs (Man) 0.0 K/mm3 06/05/21 11:01 Monocytes # (Manual) 0.1 K/mm3 (0.0-0.8) 06/05/21 11:01 Eosinophils # (Manual) 0.3 K/mm3 (0.0-0.4) 06/05/21 11:01 Basophils # (Manual) 0.0 K/mm3 (0.0-0.1) 06/05/21 11:01 Metamyelocytes # 0.0 K/mm3 06/05/21 11:01 Myelocytes # 0.0 K/mm3 06/05/21 11:01 Promyelocytes # 0.0 K/mm3 06/05/21 11:01 Blast Cells # 0.0 K/mm3 06/05/21 11:01 WBC Morphology Not Reportable 06/05/21 11:01 Hypersegmented Neuts Not Reportable 06/05/21 11:01 Hyposegmented Neuts Not Reportable 06/05/21 11:01 Hypogranular Neuts Not Reportable 06/05/21 11:01 Smudge Cells Not Reportable 06/05/21 11:01 Toxic Granulation Not Reportable 06/05/21 11:01 Toxic Vacuolation Not Reportable 06/05/21 11:01 Dohle Bodies Not Reportable 06/05/21 11:01 Pelger-Huet Anomaly Not Reportable 06/05/21 11:01 Jaime Rods Not Reportable 06/05/21 11:01 Platelet Estimate Consistent w auto 06/05/21 11:01 Clumped Platelets Not Reportable 06/05/21 11:01 Plt Clumps, EDTA Not Reportable 06/05/21 11:01 Large Platelets Not Reportable 06/05/21 11:01 Giant Platelets Not Reportable 06/05/21 11:01 Platelet Satelliting Not Reportable 06/05/21 11:01 Plt Morphology Comment Not Reportable 06/05/21 11:01 RBC Morphology Not Reportable 06/05/21 11:01 Dimorphic RBCs Not Reportable 06/05/21 11:01 Polychromasia Not Reportable 06/05/21 11:01 Hypochromasia 2+ 06/05/21 11:01 Poikilocytosis Not Reportable 06/05/21 11:01 Anisocytosis 2+ 06/05/21 11:01 Microcytosis 1+ 06/05/21 11:01 Macrocytosis Not Reportable 06/05/21 11:01 Spherocytes Not Reportable 06/05/21 11:01 Pappenheimer Bodies Not Reportable 06/05/21 11:01 Sickle Cells Not Reportable 06/05/21 11:01 Target Cells Not Reportable 06/05/21 11:01 Tear Drop Cells Not Reportable 06/05/21 11:01 Ovalocytes Not Reportable 06/05/21 11:01 Helmet Cells Not Reportable 06/05/21 11:01 Graves-Ellston Bodies Not Reportable 06/05/21 11:01 [place] Rings Not Reportable 06/05/21 11:01 Nelson Cells Not Reportable 06/05/21 11:01 Bite Cells Not Reportable 06/05/21 11:01 Crenated Cell Not Reportable 06/05/21 11:01 Elliptocytes Not Reportable 06/05/21 11:01 Acanthocytes (Spur) Not Reportable 06/05/21 11:01 Rouleaux Not Reportable 06/05/21 11:01 Hemoglobin C Crystals Not Reportable 06/05/21 11:01 Schistocytes Not Reportable 06/05/21 11:01 Malaria parasites Not Reportable 06/05/21 11:01 Koffi Bodies Not Reportable 06/05/21 11:01 Hem Pathologist Commnt No 06/05/21 11:01 PT 17.4 Sec. (12.2-14.9) H 06/06/21 04:00 INR 1.27 (0.87-1.13) H 06/06/21 04:00 APTT 52.6 Sec. (24.2-36.6) H 05/31/21 06:40 Heparin Anti-Xa Level 0.45 U.I./ml (0.3-0.7) 06/06/21 04:00 Sodium 135 mmol/L (137-145) L 06/05/21 10:40 Potassium 3.8 mmol/L (3.6-5.0) 06/05/21 10:40 Chloride 103.9 mmol/L (98-107) 06/05/21 10:40 Carbon Dioxide 20 mmol/L (22-30) L 06/05/21 10:40 Anion Gap 15 mmol/L 06/05/21 10:40 BUN 8 mg/dL (7-17) 06/05/21 10:40 Creatinine 0.7 mg/dL (0.6-1.2) 06/05/21 10:40 Estimated GFR > 60 ml/min 06/05/21 10:40 BUN/Creatinine Ratio 11 % 06/05/21 10:40 Glucose 92 mg/dL (65-100) 06/05/21 10:40 Lactic Acid 0.70 mmol/L (0.7-2.0) 06/05/21 10:40 Calcium 7.8 mg/dL (8.4-10.2) L 06/05/21 10:40 Total Bilirubin 0.20 mg/dL (0.1-1.2) 05/29/21 23:24 AST 11 units/L (5-40) 05/29/21 23:24 ALT 10 units/L (7-56) 05/29/21 23:24 Alkaline Phosphatase 88 units/L (35-129) 05/29/21 23:24 Troponin T < 0.010 ng/mL (0.00-0.029) 05/30/21 04:46 Total Protein 6.9 g/dL (6.3-8.2) 05/29/21 23:24 Albumin 3.5 g/dL (3.9-5) L 05/29/21 23:24 Albumin/Globulin Ratio 1.0 % 05/29/21 23:24 Lipase 31 units/L (13-60) 05/30/21 04:41 TSH 0.034 mlU/mL (0.270-4.200) L 06/05/21 10:40 Free T4 1.29 ng/dL (0.76-1.46) 06/05/21 10:40 HCG, Qual Negative (Negative) 05/29/21 23:24 Urine Color Yellow (Yellow) 06/05/21 12:20 Urine Turbidity Slightly-cloudy (Clear) 06/05/21 12:20 Urine pH 6.0 (5.0-7.0) 06/05/21 12:20 Ur Specific [place] 1.004 (1.003-1.030) 06/05/21 12:20 Urine Protein <15 mg/dl mg/dL (Negative) 06/05/21 12:20 Urine Glucose (UA) Neg mg/dL (Negative) 06/05/21 12:20 Urine Ketones Neg mg/dL (Negative) 06/05/21 12:20 Urine Blood Mod (Negative) 06/05/21 12:20 Urine Nitrite Neg (Negative) 06/05/21 12:20 Urine Bilirubin Neg (Negative) 06/05/21 12:20 Urine Urobilinogen < 2.0 mg/dL (<2.0) 06/05/21 12:20 Ur Leukocyte Esterase Neg (Negative) 06/05/21 12:20 Urine WBC (Auto) 2.0 /HPF (0.0-6.0) 06/05/21 12:20 Urine RBC (Auto) 37.0 /HPF (0.0-6.0) 06/05/21 12:20 U Epithel Cells (Auto) 3.0 /HPF (0-13.0) 06/05/21 12:20 Urine Bacteria (Auto) 4+ /HPF (Negative) 06/05/21 12:20 Urine Mucus Few /HPF 06/05/21 12:20 Influenza A (Rapid) Negative (Negative) 06/05/21 14:06 Influenza A (RT-PCR) Negative (Negative) 06/05/21 14:06 Influenza B (Rapid) Negative (Negative) 06/05/21 14:06 Influenza B (RT-PCR) Negative (Negative) 06/05/21 14:06 Blood Type B POSITIVE 06/05/21 10:40 Antibody Screen Negative 06/05/21 10:40 Microbiology: Microbiology 06/04/21 07:41 Peripheral/Venous Blood Culture - Preliminary NO GROWTH AFTER 48 HOURS 06/04/21 06:18 Peripheral/Venous Blood Culture - Preliminary NO GROWTH AFTER 48 HOURS Rojas/IV: Voiding Method Toilet Active Medications - Current Medications Current Medications: Generic Name Dose Route Start Last Admin Trade Name Freq PRN Reason Stop Dose Admin Acetaminophen 650 mg 06/05/21 07:48 Acetaminophen 325 Mg Tab PO Q6H PRN Pain, Mild (1-3) Albuterol 2.5 mg 05/30/21 05:14 Albuterol 2.5 Mg/3 Ml Nebu IH Q3HRT PRN Shortness Of Breath Alprazolam 0.5 mg 05/30/21 08:00 06/06/21 07:09 Alprazolam 0.5 Mg Tab PO 0.5 mg TID ELLIOTT Administration Aspirin 81 mg 05/30/21 10:00 06/06/21 10:10 Aspirin Ec 81 Mg Tab PO 81 mg QDAY ELLIOTT Administration Famotidine 20 mg 05/30/21 10:00 06/06/21 10:10 Famotidine 20 Mg Tab PO 20 mg BID ELLIOTT Administration Heparin Sodium (Porcine) 4,500 unit 06/03/21 09:46 Heparin 10,000 Units/10 Ml Vial 40 unit/kg (4500 unit) IV Q6H PRN Anti-Xa Assay < 0.1 units/ml Heparin Sodium/Sodium Chloride 25,000 unit in 500 mls @ 30 mls/hr 06/03/21 10:00 06/06/21 10:10 Heparin/ 0.45% Nacl-25,000 Unit/500 Ml IV 1,900 units/hr TITR ELLIOTT 38 mls/hr Administration Protocol 1,500 UNITS/HR Ceftriaxone Sodium 1 gm in 50 mls @ 100 mls/hr 06/04/21 04:00 06/06/21 04:29 Rocephin/Ns 1 Gm/50 Ml IV 06/08/21 04:29 100 mls/hr Q24H ELLIOTT Administration Protocol Azithromycin 500 mg in 250 mls @ 250 mls/hr 06/04/21 04:00 06/06/21 04:29 Zithromax/Ns IV 06/08/21 04:59 250 mls/hr Q24H ELLIOTT Administration Sodium Chloride 1,000 mls @ 75 mls/hr 06/04/21 10:00 06/05/21 18:22 Nacl 0.9% 1000 Ml IV 75 mls/hr DIRECT ELLIOTT Administration Ibuprofen 800 mg 06/05/21 08:00 06/06/21 01:19 Ibuprofen 800 Mg Tab PO 800 mg Q8H PRN Administration Fever >101 Levetiracetam 500 mg 05/30/21 10:00 06/06/21 10:10 Levetiracetam 500 Mg Tab PO 500 mg BID ELLIOTT Administration Levothyroxine Sodium 150 mcg 06/06/21 06:00 06/06/21 05:55 Levothyroxine 150 Mcg Tab PO 150 mcg DAILY@0600 ELLIOTT Administration Morphine Sulfate 2 mg 06/03/21 09:30 06/06/21 08:42 Morphine 2 Mg/1 Ml Inj IV 2 mg Q8H PRN Administration Pain, Moderate (4-6) Ondansetron HCl 4 mg 06/05/21 08:00 06/05/21 20:21 Ondansetron 4 Mg/2 Ml Inj IV 4 mg Q4H PRN Administration Nausea And Vomiting Propranolol HCl 40 mg 05/30/21 10:00 06/06/21 10:10 Propranolol 40 Mg Tab PO 40 mg BID ELLIOTT Administration Quetiapine Fumarate 100 mg 05/30/21 10:00 06/06/21 10:10 Quetiapine 100 Mg Tab PO 100 mg QAM ELLIOTT Administration Sodium Chloride 10 ml 05/30/21 10:00 06/06/21 10:11 Sodium Chloride 0.9% 10 Ml Flush Syringe IV 10 ml BID ELLIOTT Administration Sodium Chloride 10 ml 05/30/21 05:14 Sodium Chloride 0.9% 10 Ml Flush Syringe IV PRN PRN LINE FLUSH Tramadol HCl 100 mg 05/30/21 08:00 06/06/21 07:09 Tramadol 50 Mg Tab PO 100 mg TID ELLIOTT Administration Warfarin Sodium 10 mg 06/06/21 17:00 Warfarin 10 Mg Tab PO 06/07/21 16:59 ONCE@1700 NR Warfarin Sodium 2.5 mg 06/06/21 17:00 Warfarin 2.5 Mg Tab PO 06/07/21 16:59 ONCE@1700 NR Nutrition/Malnutrition Assess - Dietary Evaluation Nutrition/Malnutrition Findings: Nutrition Notes Start: 05/31/21 12:39 Freq: Status: Active Protocol: Document 05/31/21 12:39 JAMES (Rec: 05/31/21 12:50 JAMES [id number]) Nutrition Notes Need for Assessment generated from: Education Initial or Follow up Assessment Current Diagnosis Hypertension Other Pertinent Diagnosis PE, Chest Pain, Cardiomyopathy , Bilateral LE Swelling. DVT, GERD, SOB, Seiz Current Diet Cardiac Diet (since B 05/30). Labs/Tests 05/31: WNL. Pertinent Medications 05/31: Warfarin 7.5 mg, others nutritionally unremarkable. 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 Weight Status Obese Subjective/Other Information RD consult for warfarine use. No reports available on Pt's PO intake of meals at the time , will assess at F/U. Pt is on Nasal Cannula, O2 stauration @ 95%, according to Physical Assessment History notes. Pt has been using Coumadin since 01/2017, according to Progress notes, not a candidate for nutrition education. Pt lives at home with family, according to Progress notes. Percent of energy/protein needs met: Prescribed Cardiac Diet provides for energy/protein needs (2,230 Kcal/85 g) during LOS. Burn Absent Trauma Absent GI Symptoms None Food Allergy Yes Skin Integrity/Comment Assessment WNL. Minimum of two criteria No #1 Nutrition Diagnosis No nutrition diagnosis at this time Comments: Will assess Pt's PO intake of meals at F/U. Is patient on ventilator? No Is Patient Ambulatory and/or Out of Bed Yes REE-([facility]OOB) [ 2356.419 [id number]] Kcal/Kg value to use for calculation 16 Approximate Energy Requirements Using 1776 kcal/Kg Calculation Used for Recommendations Kcal/kg Additional Notes Protein: 0.8-1 g/Kg AdjBW; 68- 86 g/day. Fluids: 1 ml/Kcal, or as per MD. Nutrition Intervention Change Diet Order: Continue Cardiac Diet. Follow-Up By: 06/07/21 Additional Comments Continue monitoring food tolerance, %PO intake of meals , and BM.
[2021-06-06] MEDS: SODIUM CHLORIDE 0.9% 1000 ML 1,000 ML IV SCH (13:37)
--- NOTE | 2021-06-06 14:04 | Progress Note ---
Assessment and Plan Sepsis MSSA Bacteremia Acute pulmonary embolism Acute chest pain History of DVT on warfarin Seizure disorder Anxiety Hypothyroidism microcytic anemia Morbid obesity - follow H&H closely; PRBC transfusions for serum Hb < 7.0 g/dl - continue vancomycin; de-escalate per ID recommendations Troponin unremarkable, chest x-ray unremarkable, bilateral lower extremity venous Dopplers unremarkable for acute DVT CT angio chest revealing acute bilateral pulmonary emboli with evidence of right heart strain Home medication of warfarin 7.5 mg daily; however, INR 1.03. Patient endorses being compliant with her anticoagulation. Continue heparin drip and bridged warfarin daily until therapeutic (goal 2.53.5). TTE without evidence of right heart strain - continue Keppra as AED - continue thyroid replacement therapy - follow clinically re: fever curves / trend WBC - supplemental oxygen to keep O2 sats > 90% - bronchodilators (ALVERTO) with pulm hygiene per RT - continue to avoid nephrotoxins, renally dose all medications - continue mobility protocols to prevent pressure ulcers - PT/OT as tolerated - Wound care per RN/WCT - continue accuchecks with glycemic control per SSI for target blood glucose < 180 mg/dL - prn analgesia per pain score - Flu & pneumovax per protocol - Pulmonary out patient follow up for PFTs and optimization of respiratory status - life style modifications counseled re: weight loss, better medication compl iance - continue other care per attending / other consultants CC time 35 minutes Subjective Date of service: 06/06/21 Principal diagnosis: sepsis Interval history: Patient is seen today for: Sepsis; Acute pulmonary embolism; Acute chest pain; H/O DVT; Seizure disorder; Hypothyroidism; Anemia; Morbid obesity; Hypotension (Resolved); MSSA Bacteremia Seen and examined at bedside; 24hour events reviewed; nursing and respiratory care staff consulted; no adverse overnight events reported to me; resting in bed; remains on IV Heparin; no gross bleeding reported to me; states still with some chest pain Objective - Exam Narrative Exam: GENERAL: Well-developed well-nourished. In no acute distress. but no respiratory distress, sitting up, CHEST/LUNGS: CTAB on room air HEART/CARDIOVASCULAR: Regular rate and rhythm. No murmur, rubs or gallops appreciated. ABDOMEN: +BS. NT/ND. SKIN: No rashes noted. : Right IJ cath in place NEURO: No focal motor deficit. MUSCULOSKELETAL: No joint effusion, EXTREMITIES: No cyanosis, clubbing or trace edema. PSYCH: Cooperative. Vital Signs - 12hr 06/06/21 06/06/21 06/06/21 03:00 04:00 04:40 Temperature 98.1 F Pulse Rate 89 Pulse Rate [ From Monitor] Respiratory 18 16 Rate Blood Pressure 118/42 106/44 O2 Sat by Pulse 100 100 Oximetry 06/06/21 06/06/21 06/06/21 05:00 06:00 07:00 Temperature Pulse Rate 81 80 82 Pulse Rate [ 79 From Monitor] Respiratory 24 26 H 14 Rate Blood Pressure 98/51 109/55 111/59 O2 Sat by Pulse 100 100 100 Oximetry 06/06/21 06/06/21 06/06/21 07:09 08:00 08:22 Temperature Pulse Rate 81 81 Pulse Rate [ 81 From Monitor] Respiratory 29 H 15 Rate Blood Pressure 109/58 O2 Sat by Pulse 100 Oximetry 06/06/21 06/06/21 06/06/21 08:45 09:00 10:00 Temperature 97.9 F Pulse Rate 83 92 H Pulse Rate [ From Monitor] Respiratory 28 H 39 H Rate Blood Pressure 114/65 127/80 O2 Sat by Pulse 100 81 L Oximetry 06/06/21 06/06/21 06/06/21 10:10 11:00 12:00 Temperature 99.9 F H Pulse Rate 91 H 91 H 96 H Pulse Rate [ From Monitor] Respiratory 28 H 46 H Rate Blood Pressure 127/80 131/80 128/80 O2 Sat by Pulse 99 94 Oximetry 06/06/21 06/06/21 13:00 13:22 Temperature 101.3 F H Pulse Rate 91 H Pulse Rate [ From Monitor] Respiratory 20 Rate Blood Pressure 126/75 O2 Sat by Pulse 94 Oximetry CBC and BMP: 06/20/21 05:00 06/20/21 05:00 ABG, PT/INR, D-dimer: PT/INR, D-dimer PT 17.4 Sec. (12.2-14.9) H 06/06/21 04:00 INR 1.27 (0.87-1.13) H 06/06/21 04:00 Abnormal lab findings: Abnormal Labs 05/29/21 05/29/21 05/29/21 23:24 23:24 23:29 WBC RBC Hgb 8.8 L Hct 28.7 L MCV 74 L MCH 23 L RDW 26.4 H Seg Neuts % (Manual) 75.0 H Lymphocytes % (Manual) Seg Neutrophils # Man Lymphocytes # (Manual) PT INR APTT 20.9 L Heparin Anti-Xa Level Sodium Carbon Dioxide 20 L Calcium Albumin 3.5 L TSH 05/30/21 05/30/21 05/30/21 08:25 08:25 13:35 WBC RBC Hgb 8.8 L Hct 27.5 L MCV MCH RDW Seg Neuts % (Manual) Lymphocytes % (Manual) Seg Neutrophils # Man Lymphocytes # (Manual) PT 15.4 H INR APTT 107.1 H* Heparin Anti-Xa Level 0.82 H Sodium Carbon Dioxide Calcium Albumin TSH 05/30/21 05/31/21 05/31/21 20:57 06:40 06:40 WBC 13.0 H RBC Hgb 8.9 L Hct 28.5 L MCV 74 L MCH 23 L RDW 25.7 H Seg Neuts % (Manual) 77.0 H Lymphocytes % (Manual) Seg Neutrophils # Man 10.0 H Lymphocytes # (Manual) PT INR APTT 52.6 H Heparin Anti-Xa Level 0.15 L 0.74 H Sodium Carbon Dioxide Calcium Albumin TSH 06/01/21 06/01/21 06/02/21 09:55 10:27 06:15 WBC RBC Hgb 9.4 L Hct MCV MCH RDW Seg Neuts % (Manual) Lymphocytes % (Manual) Seg Neutrophils # Man Lymphocytes # (Manual) PT INR APTT Heparin Anti-Xa Level 0.13 L 0.25 L Sodium Carbon Dioxide Calcium Albumin TSH 06/02/21 06/03/21 06/04/21 23:30 Unknown 07:39 WBC RBC Hgb 8.5 L Hct 28.0 L MCV MCH RDW Seg Neuts % (Manual) Lymphocytes % (Manual) Seg Neutrophils # Man Lymphocytes # (Manual) PT 15.0 H INR APTT Heparin Anti-Xa Level 0.19 L Sodium Carbon Dioxide Calcium Albumin TSH 06/05/21 06/05/21 06/05/21 04:07 04:07 10:40 WBC RBC Hgb 8.4 L Hct 27.3 L MCV MCH RDW Seg Neuts % (Manual) Lymphocytes % (Manual) Seg Neutrophils # Man Lymphocytes # (Manual) PT 17.7 H INR 1.30 H APTT Heparin Anti-Xa Level Sodium Carbon Dioxide Calcium Albumin TSH 0.034 L 06/05/21 06/05/21 06/06/21 10:40 11:01 04:00 WBC 14.0 H RBC 3.37 L Hgb 7.5 L Hct 24.8 L MCV 74 L MCH 22 L RDW 25.0 H Seg Neuts % (Manual) 94.0 H Lymphocytes % (Manual) 3.0 L Seg Neutrophils # Man 13.2 H Lymphocytes # (Manual) 0.4 L PT 17.4 H INR 1.27 H APTT Heparin Anti-Xa Level Sodium 135 L Carbon Dioxide 20 L Calcium 7.8 L Albumin TSH
[2021-06-06] MEDS ORDERED: VANCOMYCIN 1,000 MG/20 ML IV SCH (15:15)
[2021-06-06] MEDS ORDERED: WARFARIN 2.5 MG TAB PO NR (17:00)
[2021-06-06] MEDS ORDERED: WARFARIN 10 MG TAB PO NR (17:00)
[2021-06-07] MEDS: HEPARIN/ 0.45% NACL DRIP 25,000 UNIT/500 ML BAG IV SCH ×3 (00:45→20:37)
[2021-06-07] MEDS: PROPRANOLOL 40 MG TAB PO SCH ×3 (02:02→21:58)
[2021-06-07] MEDS: cefTRIAXone/NS 1 GM/50 ML 1 GM/50 ML BAG IV SCH (03:33)
[2021-06-07] MEDS: AZITHROMYCIN/NS 500 MG/250 ML 500 MG/250 ML BAG IV SCH (04:15)
[2021-06-07] MEDS: VANCOMYCIN 1,500 MG in SODIUM CHLORIDE 0.9% 500 ML 500 ML IV SCH ×3 (05:04→17:26)
[2021-06-07] MEDS: LEVOTHYROXINE 150 MCG TAB PO SCH (05:04)
[2021-06-07] MEDS: traMADol 50 MG TAB PO SCH ×3 (08:00→20:46)
[2021-06-07] MEDS: ALPRAZolam 0.5 MG TAB PO SCH ×3 (08:00→20:46)
--- NOTE | 2021-06-07 08:26 | Progress Note ---
Assessment and Plan Assessment and plan: 40 years old female with past medical history of hypertension, PE x2, (R lung 05/2016, L lung 01/2017--on coumadin), R leg DVT 03/2017, Graves Disease, heart murmur, aortic dissection, PERICARDITIS, thyroid storm GERD was brought to the hospital because of chest pain, retrosternal, sharp, radiating to back, 10/10, worsened by deep breaths, not relieved by anything, associated with SOB. Denies palpitations, diaphoresis. Endorses bilateral leg swelling, pain in her calves. Denies recent travel, immobilization, surgery, hospitalization, Hormonal contraceptive use. In the emergency room initial CT scan of the chest shows acute bilateral pulmonary thromboemboli with evidence of mild right ventricular restaurant. Scattered pneumonitis noted throughout the both lungs.'s were going to admit the patient to the medical telemetry put the patient on IV heparin we also order echocardiogram 06/05: Is unclear to me why the patient was transferred to the IMCU as I do not have any clear documentation to the results but in effect I was told by the nurse that the patient had pulled out his for her femoral line and did not have an access. Patient appears to have been having fever for a few days no known etiology we will proceed with a sepsis work-up although closely reviewing her case shows a history of thyroid storm in the past and she has not been receiving her thyroid medication while she does not have confusion at this time she does have tachycardia and tachypnea. We will give her a dose of IV levothyroxine today and start her daily dose of levothyroxine a.m. She has been on her propranolol although her home dose appears confusing as she gets 40 mg once daily and also 20 mg twice a day will discuss with her to clarify this and also with her pharmacy. She did have a right IJ triple-lumen catheter placed yesterday I discussed with her in the setting of well-documented by the nurse that she takes Midol at home which contains acetaminophen she is agreeable to trial acetaminophen as she wants to come off the cooling blanket. I also consulted ID and ordered a urinalysis with urine culture and some fluid support. I reviewed her CT scan and echocardiogram while the CT mentions the pulmonary embolism with mild right heart strain the echo shows a RVSP of 32 mmHg. 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 She continues on heparin drip while awaiting for therapeutic INR. In the meantime continue with antibiotic Right internal jugular vein triple-lumen catheter placement under ultrasound guidance 06/06: Patient seen and examined, showing some improvement, will follow cultures result, Continue abx, clinical stable, ID input, close eye on Hemoglobin. WBC mildly trended up. [facility]. 06/07: Continue supportive care, awaiting Cultures for ID and sensitivity in the meantime continue antibiotic. Am LABS. Patient continues on heparin drip until INR is therapeutic. I encouraged her to ambulate in her room and also set up on the chair. Cultures for COVID was negative. We will obtain PT OT evaluation. In short summary patient is a 40-year-old female with hypertension pulmonary embolism lower extremity DVT in the past on Coumadin who presented with shortness of breath diagnosed with pulmonary embolism admitted intermittently sepsis doubt septic emboli currently on antibiotics. Restarted on her thyroid medication with no evidence of thyroid storm. #Sepsis -patient with Tmax of 102, tachycardic -patient with R femoral central line, ordered to be removed -blood cultures and UA collected -azithromycin and rocephin started by overnight Hospitalist -vancomycin added -will continue to monitor for source #Hypotension -Patient with low blood pressure at night -IVF started -avoid antihypotensives -labetalol currently held #Acute pulmonary embolism #Acute chest pain #History of DVT on warfarin Troponin unremarkable, chest x-ray unremarkable, bilateral lower extremity venous Dopplers unremarkable for acute DVT CT angio chest revealing acute bilateral pulmonary emboli with evidence of right heart strain Home medication of warfarin 7.5 mg daily; however, INR 1.03. Patient endorses being compliant with her anticoagulation. Continue heparin drip and bridged warfarin daily until therapeutic (goal 2.53.5). TTE without evidence of right heart strain #Seizure disorder #Anxiety Continue home medications: Keppra 500 mg twice daily, Quetiapine 100 mg every morning and 300 mg nightly, alprazolam 0.5 mg 3 times daily #Hypothyroidism #microcytic anemia -stable Transfuse if hemoglobin less than 7 or patient become symptomatic #Morbid obesity #Weight loss counseling #Exercise counseling - BMI 39.1 - Counseled patient on the importance of weight loss, incorporating exercise, and dietary changes (lean meats, fresh fruits and vegetables, and water intake). Patient expresses understanding. #Advanced care planning -Disease education conducted, care plan discussed, diagnoses discussed, prognosi s discussed, and patient acknowledges understanding with care plan -Time: +30 min History Interval history: Patient seen and examined, showing some improvement, she still reports chest dyscomfort but improving and some leg pain, had no adverse reaction to the Ibuprofen or acetaminophen. Hospitalist Physical - Physical exam Narrative exam: GENERAL: Well-developed well-nourished. In no acute distress. but no respiratory distress CHEST/LUNGS: CTAB on room air HEART/CARDIOVASCULAR: Regular rate and rhythm. No murmur, rubs or gallops appreciated. ABDOMEN: +BS. NT/ND. SKIN: No rashes noted. : Right IJ cath in place NEURO: No focal motor deficit. MUSCULOSKELETAL: No joint effusion, WARM TO TOUGH EXTREMITIES: No cyanosis, clubbing or trace edema. PSYCH: Cooperative. - Constitutional Vitals: Temp Pulse Resp BP Pulse Ox 99.9 F H 81 18 155/75 88 06/07/21 04:10 06/06/21 21:12 06/07/21 04:10 06/07/21 04:10 06/07/21 04:10 General appearance: Present: no acute distress, well-nourished HEART Score - HEART Score Troponin: Troponin T < 0.010 ng/mL (0.00-0.029) 05/30/21 04:46 Results - Labs CBC & Chem 7: 06/05/21 11:01 06/05/21 10:40 Labs: Laboratory Last Values WBC 14.0 K/mm3 (4.5-11.0) H 06/05/21 11:01 RBC 3.37 M/mm3 (3.65-5.03) L 06/05/21 11:01 Hgb 7.5 gm/dl (10.1-14.3) L 06/05/21 11:01 Hct 24.8 % (30.3-42.9) L 06/05/21 11:01 MCV 74 fl (79-97) L 06/05/21 11:01 MCH 22 pg (28-32) L 06/05/21 11:01 MCHC 30 % (30-34) 06/05/21 11:01 RDW 25.0 % (13.2-15.2) H 06/05/21 11:01 Plt Count 219 K/mm3 (140-440) 06/05/21 11:01 Add Manual Diff Complete 06/05/21 11:01 Total Counted 100 06/05/21 11:01 Seg Neuts % (Manual) 94.0 % (40.0-70.0) H 06/05/21 11:01 Band Neutrophils % 0 % 06/05/21 11:01 Lymphocytes % (Manual) 3.0 % (13.4-35.0) L 06/05/21 11:01 Reactive Lymphs % (Man) 0 % 06/05/21 11:01 Monocytes % (Manual) 1.0 % (0.0-7.3) 06/05/21 11:01 Eosinophils % (Manual) 2.0 % (0.0-4.3) 06/05/21 11:01 Basophils % (Manual) 0 % (0.0-1.8) 06/05/21 11:01 Metamyelocytes % 0 % 06/05/21 11:01 Myelocytes % 0 % 06/05/21 11:01 Promyelocytes % 0 % 06/05/21 11:01 Blast Cells % 0 % 06/05/21 11:01 Nucleated RBC % Not Reportable 06/05/21 11:01 Seg Neutrophils # Man 13.2 K/mm3 (1.8-7.7) H 06/05/21 11:01 Band Neutrophils # 0.0 K/mm3 06/05/21 11:01 Lymphocytes # (Manual) 0.4 K/mm3 (1.2-5.4) L 06/05/21 11:01 Abs React Lymphs (Man) 0.0 K/mm3 06/05/21 11:01 Monocytes # (Manual) 0.1 K/mm3 (0.0-0.8) 06/05/21 11:01 Eosinophils # (Manual) 0.3 K/mm3 (0.0-0.4) 06/05/21 11:01 Basophils # (Manual) 0.0 K/mm3 (0.0-0.1) 06/05/21 11:01 Metamyelocytes # 0.0 K/mm3 06/05/21 11:01 Myelocytes # 0.0 K/mm3 06/05/21 11:01 Promyelocytes # 0.0 K/mm3 06/05/21 11:01 Blast Cells # 0.0 K/mm3 06/05/21 11:01 WBC Morphology Not Reportable 06/05/21 11:01 Hypersegmented Neuts Not Reportable 06/05/21 11:01 Hyposegmented Neuts Not Reportable 06/05/21 11:01 Hypogranular Neuts Not Reportable 06/05/21 11:01 Smudge Cells Not Reportable 06/05/21 11:01 Toxic Granulation Not Reportable 06/05/21 11:01 Toxic Vacuolation Not Reportable 06/05/21 11:01 Dohle Bodies Not Reportable 06/05/21 11:01 Pelger-Huet Anomaly Not Reportable 06/05/21 11:01 Jaime Rods Not Reportable 06/05/21 11:01 Platelet Estimate Consistent w auto 06/05/21 11:01 Clumped Platelets Not Reportable 06/05/21 11:01 Plt Clumps, EDTA Not Reportable 06/05/21 11:01 Large Platelets Not Reportable 06/05/21 11:01 Giant Platelets Not Reportable 06/05/21 11:01 Platelet Satelliting Not Reportable 06/05/21 11:01 Plt Morphology Comment Not Reportable 06/05/21 11:01 RBC Morphology Not Reportable 06/05/21 11:01 Dimorphic RBCs Not Reportable 06/05/21 11:01 Polychromasia Not Reportable 06/05/21 11:01 Hypochromasia 2+ 06/05/21 11:01 Poikilocytosis Not Reportable 06/05/21 11:01 Anisocytosis 2+ 06/05/21 11:01 Microcytosis 1+ 06/05/21 11:01 Macrocytosis Not Reportable 06/05/21 11:01 Spherocytes Not Reportable 06/05/21 11:01 Pappenheimer Bodies Not Reportable 06/05/21 11:01 Sickle Cells Not Reportable 06/05/21 11:01 Target Cells Not Reportable 06/05/21 11:01 Tear Drop Cells Not Reportable 06/05/21 11:01 Ovalocytes Not Reportable 06/05/21 11:01 Helmet Cells Not Reportable 06/05/21 11:01 Graves-Barclay Bodies Not Reportable 06/05/21 11:01 [place] Rings Not Reportable 06/05/21 11:01 [place] Cells Not Reportable 06/05/21 11:01 Bite Cells Not Reportable 06/05/21 11:01 Crenated Cell Not Reportable 06/05/21 11:01 Elliptocytes Not Reportable 06/05/21 11:01 Acanthocytes (Spur) Not Reportable 06/05/21 11:01 Rouleaux Not Reportable 06/05/21 11:01 Hemoglobin C Crystals Not Reportable 06/05/21 11:01 Schistocytes Not Reportable 06/05/21 11:01 Malaria parasites Not Reportable 06/05/21 11:01 Koffi Bodies Not Reportable 06/05/21 11:01 Hem Pathologist Commnt No 06/05/21 11:01 PT 17.4 Sec. (12.2-14.9) H 06/06/21 04:00 INR 1.27 (0.87-1.13) H 06/06/21 04:00 APTT 52.6 Sec. (24.2-36.6) H 05/31/21 06:40 Heparin Anti-Xa Level 0.45 U.I./ml (0.3-0.7) 06/06/21 04:00 Sodium 135 mmol/L (137-145) L 06/05/21 10:40 Potassium 3.8 mmol/L (3.6-5.0) 06/05/21 10:40 Chloride 103.9 mmol/L (98-107) 06/05/21 10:40 Carbon Dioxide 20 mmol/L (22-30) L 06/05/21 10:40 Anion Gap 15 mmol/L 06/05/21 10:40 BUN 8 mg/dL (7-17) 06/05/21 10:40 Creatinine 0.7 mg/dL (0.6-1.2) 06/05/21 10:40 Estimated GFR > 60 ml/min 06/05/21 10:40 BUN/Creatinine Ratio 11 % 06/05/21 10:40 Glucose 92 mg/dL (65-100) 06/05/21 10:40 Lactic Acid 0.70 mmol/L (0.7-2.0) 06/05/21 10:40 Calcium 7.8 mg/dL (8.4-10.2) L 06/05/21 10:40 Total Bilirubin 0.20 mg/dL (0.1-1.2) 05/29/21 23:24 AST 11 units/L (5-40) 05/29/21 23:24 ALT 10 units/L (7-56) 05/29/21 23:24 Alkaline Phosphatase 88 units/L (35-129) 05/29/21 23:24 Troponin T < 0.010 ng/mL (0.00-0.029) 05/30/21 04:46 Total Protein 6.9 g/dL (6.3-8.2) 05/29/21 23:24 Albumin 3.5 g/dL (3.9-5) L 05/29/21 23: Albumin/Globulin Ratio 1.0 % 05/29/21 23:24 Lipase 31 units/L (13-60) 05/30/21 04:41 TSH 0.034 mlU/mL (0.270-4.200) L 06/05/21 10:40 Free T4 1.29 ng/dL (0.76-1.46) 06/05/21 10:40 HCG, Qual Negative (Negative) 05/29/21 23:24 Urine Color Yellow (Yellow) 06/05/21 12:20 Urine Turbidity Slightly-cloudy (Clear) 06/05/21 12:20 Urine pH 6.0 (5.0-7.0) 06/05/21 12:20 Ur Specific [place] 1.004 (1.003-1.030) 06/05/21 12:20 Urine Protein <15 mg/dl mg/dL (Negative) 06/05/21 12:20 Urine Glucose (UA) Neg mg/dL (Negative) 06/05/21 12:20 Urine Ketones Neg mg/dL (Negative) 06/05/21 12:20 Urine Blood Mod (Negative) 06/05/21 12:20 Urine Nitrite Neg (Negative) 06/05/21 12:20 Urine Bilirubin Neg (Negative) 06/05/21 12:20 Urine Urobilinogen < 2.0 mg/dL (<2.0) 06/05/21 12:20 Ur Leukocyte Esterase Neg (Negative) 06/05/21 12:20 Urine WBC (Auto) 2.0 /HPF (0.0-6.0) 06/05/21 12:20 Urine RBC (Auto) 37.0 /HPF (0.0-6.0) 06/05/21 12:20 U Epithel Cells (Auto) 3.0 /HPF (0-13.0) 06/05/21 12:20 Urine Bacteria (Auto) 4+ /HPF (Negative) 06/05/21 12:20 Urine Mucus Few /HPF 06/05/21 12:20 Coronavirus (PCR) Negative (Negative) 06/05/21 07:26 Influenza A (Rapid) Negative (Negative) 06/05/21 14:06 Influenza A (RT-PCR) Negative (Negative) 06/05/21 14:06 Influenza B (Rapid) Negative (Negative) 06/05/21 14:06 Influenza B (RT-PCR) Negative (Negative) 06/05/21 14:06 Blood Type B POSITIVE 06/05/21 10:40 Antibody Screen Negative 06/05/21 10:40 Microbiology: Microbiology 06/04/21 06:18 Peripheral/Venous Blood Culture - Preliminary Staphylococcus Aureus 06/04/21 07:41 Peripheral/Venous Blood Culture - Preliminary Staphylococcus Aureus 06/05/21 Unknown Urine,Clean Catch Urine Culture - Preliminary Rojas/IV: Voiding Method Bedside Commode Active Medications - Current Medications Current Medications: Generic Name Dose Route Start Last Admin Trade Name Freq PRN Reason Stop Dose Admin Acetaminophen 650 mg 06/05/21 07:48 Acetaminophen 325 Mg Tab PO Q6H PRN Pain, Mild (1-3) Albuterol 2.5 mg 05/30/21 05:14 Albuterol 2.5 Mg/3 Ml Nebu IH Q3HRT PRN Shortness Of Breath Alprazolam 0.5 mg 05/30/21 08:00 06/06/21 21:29 Alprazolam 0.5 Mg Tab PO 0.5 mg TID ELLIOTT Administration Aspirin 81 mg 05/30/21 10:00 06/06/21 10:10 Aspirin Ec 81 Mg Tab PO 81 mg QDAY ELLIOTT Administration Famotidine 20 mg 05/30/21 10:00 06/06/21 21:30 Famotidine 20 Mg Tab PO 20 mg BID ELLIOTT Administration Heparin Sodium (Porcine) 4,500 unit 06/03/21 09:46 Heparin 10,000 Units/10 Ml Vial 40 unit/kg (4500 unit) IV Q6H PRN Anti-Xa Assay < 0.1 units/ml Heparin Sodium/Sodium Chloride 25,000 unit in 500 mls @ 30 mls/hr 06/03/21 10:00 06/07/21 00:45 Heparin/ 0.45% Nacl-25,000 Unit/500 Ml IV 1,900 units/hr TITR ELLIOTT 38 mls/hr Administration Protocol 1,500 UNITS/HR Ceftriaxone Sodium 1 gm in 50 mls @ 100 mls/hr 06/04/21 04:00 06/07/21 03:33 Rocephin/Ns 1 Gm/50 Ml IV 06/08/21 04:29 100 mls/hr Q24H ELLIOTT Administration Protocol Azithromycin 500 mg in 250 mls @ 250 mls/hr 06/04/21 04:00 06/07/21 04:15 Zithromax/Ns IV 06/08/21 04:59 250 mls/hr Q24H ELLIOTT Administration Sodium Chloride 1,000 mls @ 42 mls/hr 06/06/21 15:15 Nacl 0.9% 1000 Ml IV DIRECT ELLIOTT Vancomycin HCl 1,500 mg/ 530 mls @ 333.333 mls/hr 06/06/21 16:00 06/07/21 05:04 Sodium Chloride IV 333.333 mls/hr Q12H ELLIOTT Administration Ibuprofen 800 mg 06/05/21 08:00 06/06/21 13:37 Ibuprofen 800 Mg Tab PO 800 mg Q8H PRN Administration Fever >101 Levetiracetam 500 mg 05/30/21 10:00 06/06/21 21:30 Levetiracetam 500 Mg Tab PO 500 mg BID ELLIOTT Administration Levothyroxine Sodium 150 mcg 06/06/21 06:00 06/07/21 05:04 Levothyroxine 150 Mcg Tab PO 150 mcg DAILY@0600 ELLIOTT Administration Morphine Sulfate 2 mg 06/03/21 09:30 06/06/21 22:28 Morphine 2 Mg/1 Ml Inj IV 2 mg Q8H PRN Administration Pain, Moderate (4-6) Ondansetron HCl 4 mg 06/05/21 08:00 06/05/21 20:21 Ondansetron 4 Mg/2 Ml Inj IV 4 mg Q4H PRN Administration Nausea And Vomiting Propranolol HCl 40 mg 05/30/21 10:00 06/07/21 02:02 Propranolol 40 Mg Tab PO Not Given BID ELLIOTT Quetiapine Fumarate 100 mg 05/30/21 10:00 06/06/21 10:10 Quetiapine 100 Mg Tab PO 100 mg QAM ELLIOTT Administration Sodium Chloride 10 ml 05/30/21 10:00 06/06/21 21:30 Sodium Chloride 0.9% 10 Ml Flush Syringe IV 10 ml BID ELLIOTT Administration Sodium Chloride 10 ml 05/30/21 05:14 Sodium Chloride 0.9% 10 Ml Flush Syringe IV PRN PRN LINE FLUSH Tramadol HCl 100 mg 05/30/21 08:00 06/06/21 21:29 Tramadol 50 Mg Tab PO 100 mg TID ELLIOTT Administration Warfarin Sodium 10 mg 06/06/21 17:00 06/06/21 17:13 Warfarin 10 Mg Tab PO 06/07/21 16:59 10 mg ONCE@1700 NR Administration Warfarin Sodium 2.5 mg 06/06/21 17:00 06/06/21 17:12 Warfarin 2.5 Mg Tab PO 06/07/21 16:59 2.5 mg ONCE@1700 NR Administration Nutrition/Malnutrition Assess - Dietary Evaluation Nutrition/Malnutrition Findings: Nutrition Notes Start: 05/31/21 12:39 Freq: Status: Active Protocol: Document 05/31/21 12:39 JAMES (Rec: 05/31/21 12:50 JAMES [id number]) Nutrition Notes Need for Assessment generated from: Education Initial or Follow up Assessment Current Diagnosis Hypertension Other Pertinent Diagnosis PE, Chest Pain, Cardiomyopathy , Bilateral LE Swelling. DVT, GERD, SOB, Seiz Current Diet Cardiac Diet (since B 05/30). Labs/Tests 05/31: WNL. Pertinent Medications 05/31: Warfarin 7.5 mg, others nutritionally unremarkable. Height 5 ft 7 in Weight 111 kg [place] Body Weight (kg) 61.36 BMI 38.3 Intake Prior to Admission Good Weight change and time frame Pt denies having loss body weight [employer]. Weight Status Obese Subjective/Other Information RD consult for warfarine use. No reports available on Pt's PO intake of meals at the time , will assess at F/U. Pt is on Nasal Cannula, O2 stauration @ 95%, according to Physical Assessment History notes. Pt has been using Coumadin since 01/2017, according to Progress notes, not a candidate for nutrition education. Pt lives at home with family, according to Progress notes. Percent of energy/protein needs met: Prescribed Cardiac Diet provides for energy/protein needs (2,230 Kcal/85 g) during LOS. Burn Absent Trauma Absent GI Symptoms None Food Allergy Yes Skin Integrity/Comment Assessment WNL. Minimum of two criteria No #1 Nutrition Diagnosis No nutrition diagnosis at this time Comments: Will assess Pt's PO intake of meals at F/U. Is patient on ventilator? No Is Patient Ambulatory and/or Out of Bed Yes REE-([place]-St. Jeor-ambulatory/OOB) [ 2356.419 [id number]] Kcal/Kg value to use for calculation 16 Approximate Energy Requirements Using 1776 kcal/Kg Calculation Used for Recommendations Kcal/kg Additional Notes Protein: 0.8-1 g/Kg AdjBW; 68- 86 g/day. Fluids: 1 ml/Kcal, or as per MD. Nutrition Intervention Change Diet Order: Continue Cardiac Diet. Follow-Up By: 06/07/21 Additional Comments Continue monitoring food tolerance, %PO intake of meals , and BM.
[2021-06-07] MEDS: MORPHINE 2 MG/1 ML INJ IV PRN ×2 (08:29→16:47)
[2021-06-07] MEDS: FAMOTIDINE 20 MG TAB PO SCH ×2 (10:09→21:58)
[2021-06-07] MEDS: ASPIRIN EC 81 MG TAB PO SCH (10:09)
[2021-06-07] MEDS: QUEtiapine 100 MG TAB PO SCH (10:12)
[2021-06-07] MEDS: levETIRAcetam 500 MG TAB PO SCH ×2 (10:13→21:58)
--- NOTE | 2021-06-07 10:46 | Progress Note ---
Assessment and Plan Sepsis MSSA Bacteremia Acute pulmonary embolism Acute chest pain History of DVT on warfarin Seizure disorder Anxiety Hypothyroidism microcytic anemia Morbid obesity Hypotension (Resolved) - continue full anticoagulation with IV Heparin - follow H&H closely; PRBC transfusions for serum Hb < 7.0 g/dl - continue vancomycin; de-escalate per ID recommendations - continue Keppra as AED - continue thyroid replacement therapy - follow clinically re: fever curves / trend WBC - supplemental oxygen to keep O2 sats > 90% - bronchodilators (ALVERTO) with pulm hygiene per RT - continue to avoid nephrotoxins, renally dose all medications - continue mobility protocols to prevent pressure ulcers - PT/OT as tolerated - Wound care per RN/WCT - continue accuchecks with glycemic control per SSI for target blood glucose < 180 mg/dL - tobacco abstinence strongly counseled at the bedside - home oxygen evaluation at discharge - prn analgesia per pain score - GI prophylaxis with Pepcid - Flu & pneumovax per protocol - Pulmonary out patient follow up for PFTs and optimization of respiratory status - life style modifications counseled re: weight loss, better medication compliance - continue other care per attending / other consultants ... re-evaluate in am & prn Subjective Date of service: 06/07/21 Principal diagnosis: Sepsis; Acute P.E.; Chest pain; H/O DVT; Seizures; Hypothyroidism; Obesity Interval history: Patient is seen today for: Sepsis; Acute pulmonary embolism; Acute chest pain; H/O DVT; Seizure disorder; Hypothyroidism; Anemia; Morbid obesity; Hypotension (Resolved); MSSA Bacteremia Seen and examined at bedside; 24hour events reviewed; nursing and respiratory care staff consulted; no adverse overnight events reported to me; resting in bed; remains on IV Heparin; no gross bleeding reported to me; states still with some chest pain Objective Vital Signs - 12hr 06/07/21 04:10 Temperature 99.9 F H Respiratory 18 Rate Blood Pressure 155/75 O2 Sat by Pulse 88 Oximetry Constitutional: appears uncomfortable, other (elderly morbidly obese female with mildly increased respiratory effort at rest) Eyes: non-icteric ENT: oropharynx moist Neck: supple, no lymphadenopathy, no JVD, other (large neck circumference; RIJ CVL) Effort: mildly labored Ascultation: Bilateral: clear, diminished breath sounds Percussion: Bilateral: not dull Cardiovascular: regular rate and rhythm Gastrointestinal: normoactive bowel sounds, soft, non-tender, other (distended but soft) Integumentary: normal Extremities: no cyanosis, no edema, pulses normal, no ischemia or petechiae Neurologic: non-focal exam (grossly), pupils equal and round, CN II-XII normal, motor strength normal and Psychiatric: anxious, depressed CBC and BMP: 06/07/21 12:55 06/08/21 04:52 ABG, PT/INR, D-dimer: PT/INR, D-dimer PT 17.4 Sec. (12.2-14.9) H 06/06/21 04:00 INR 1.27 (0.87-1.13) H 06/06/21 04:00 Abnormal lab findings: Abnormal Labs 05/29/21 05/29/21 05/29/21 23:24 23:24 23:29 WBC RBC Hgb 8.8 L Hct 28.7 L MCV 74 L MCH 23 L RDW 26.4 H Seg Neuts % (Manual) 75.0 H Lymphocytes % (Manual) Seg Neutrophils # Man Lymphocytes # (Manual) PT INR APTT 20.9 L Heparin Anti-Xa Level Sodium Carbon Dioxide 20 L Calcium Albumin 3.5 L TSH 05/30/21 05/30/21 05/30/21 08:25 08:25 13:35 WBC RBC Hgb 8.8 L Hct 27.5 L MCV MCH RDW Seg Neuts % (Manual) Lymphocytes % (Manual) Seg Neutrophils # Man Lymphocytes # (Manual) PT 15.4 H INR APTT 107.1 H* Heparin Anti-Xa Level 0.82 H Sodium Carbon Dioxide Calcium Albumin [facility] 05/30/21 05/31/21 05/31/21 20:57 06:40 06:40 WBC 13.0 H RBC Hgb 8.9 L Hct 28.5 L MCV 74 L MCH 23 L RDW 25.7 H Seg Neuts % (Manual) 77.0 H Lymphocytes % (Manual) Seg Neutrophils # Man 10.0 H Lymphocytes # (Manual) PT INR APTT 52.6 H Heparin Anti-Xa Level 0.15 L 0.74 H Sodium Carbon Dioxide Calcium Albumin [facility] 06/01/21 06/01/21 06/02/21 09:55 10:27 06:15 WBC RBC Hgb 9.4 L Hct MCV MCH RDW Seg Neuts % (Manual) Lymphocytes % (Manual) Seg Neutrophils # Man Lymphocytes # (Manual) PT INR APTT Heparin Anti-Xa Level 0.13 L 0.25 L Sodium Carbon Dioxide Calcium Albumin TSH 06/02/21 06/03/21 06/04/21 23:30 Unknown 07:39 WBC RBC Hgb 8.5 L Hct 28.0 L MCV MCH RDW Seg Neuts % (Manual) Lymphocytes % (Manual) Seg Neutrophils # Man Lymphocytes # (Manual) PT 15.0 H INR APTT Heparin Anti-Xa Level 0.19 L Sodium Carbon Dioxide Calcium Albumin TSH 06/05/21 06/05/21 06/05/21 04:07 04:07 10:40 WBC RBC Hgb 8.4 L Hct 27.3 L MCV MCH RDW Seg Neuts % (Manual) Lymphocytes % (Manual) Seg Neutrophils # Man Lymphocytes # (Manual) PT 17.7 H INR 1.30 H APTT Heparin Anti-Xa Level Sodium Carbon Dioxide Calcium Albumin TSH 0.034 L 06/05/21 06/05/21 06/06/21 10:40 11:01 04:00 WBC 14.0 H RBC 3.37 L Hgb 7.5 L Hct 24.8 L MCV 74 L MCH 22 L RDW 25.0 H Seg Neuts % (Manual) 94.0 H Lymphocytes % (Manual) 3.0 L Seg Neutrophils # Man 13.2 H Lymphocytes # (Manual) 0.4 L PT 17.4 H INR 1.27 H APTT Heparin Anti-Xa Level Sodium 135 L Carbon Dioxide 20 L Calcium 7.8 L Albumin TSH Allied health notes reviewed: nursing
--- NOTE | 2021-06-07 13:14 | Consultation ---
History of Present Illness - Reason for Consult Consult date: 06/07/21 sepsis Requesting physician: JOHN MONTES - History of Present Illness The patient is a 40-year-old female with hypertension, pulmonary embolism, DVT, Graves' disease, history of aortic dissection, pericarditis was admitted to the hospital with chest pain, bilateral calf swelling, CT chest angio revealed acute bilateral pulmonary thromboemboli with mild right ventricular strain and sc attered pneumonitis throughout the lungs. She was admitted to the hospital on 05/29/2021. On 06/04 2021, she started spiking fevers up to 103.1 F, labs revealed worsening leukocytosis. She was started on empiric antibiotics, blood cultures were obtained and her right femoral central line was removed. Infectious diseases was consulted for additional evaluation. Chest x-ray on 06/04/2021 did not reveal any pneumonia. Reports poor appetite. Review of Systems: Per HPI Past History Past Medical History: DVT, hypertension, other (PE.pericarditis, pt states hyperthyroidism, thyroid storm, PE x2, (R lung 05/2016, L lung 01/2017--on coumadin), R leg DVT 03/2017, Graves Disease, heart murmur, aortic dissection) Past Surgical History: Other (Left arm surgery 02/2017, Right knee, Rt leg. 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, [place] Filter) Social history: other (No smoking) Family history: no significant family history Medications and Allergies Allergies Allergy/AdvReac Type Severity Reaction Status Date / Time acetaminophen [From Tylenol] Allergy Hives Verified 12/16/20 11:52 enoxaparin [From Lovenox] Allergy Rash, Verified 01/18/21 13:51 fever, vomiting garlic Allergy Hives Verified 01/18/21 13:51 oxycodone [From Percocet] Allergy Itching, Verified 01/18/21 13:51 rash peanut oil Allergy Rash Verified 01/18/21 13:51 Penicillins Allergy hives, Verified 01/18/21 13:51 vomiting ibuprofen [From Motrin] AdvReac nausea/vomi Verified 01/18/21 13:51 ting Home Medications Medication Instructions Recorded Confirmed Last Taken Type Aspirin EC [Halfprin EC] 81 mg PO QDAY #30 01/01/20 05/31/21 05/30/21 Rx Warfarin [Coumadin] 7.5 mg PO DAILY@1700 #30 tablet 04/22/20 05/31/21 05/30/21 Rx QUEtiapine [SEROquel] 100 mg PO QAM 01/16/21 05/31/21 05/30/21 History Quetiapine Fumarate [SEROquel] 300 mg PO QHS 01/16/21 05/31/21 05/31/21 12:48 History levETIRAcetam [Keppra TAB] 500 mg PO BID 01/16/21 05/31/21 05/30/21 History traMADoL [Ultram] 100 mg PO TID 01/16/21 05/31/21 05/30/21 History ALPRAZolam [Xanax TAB] 0.5 mg PO TID 01/18/21 05/31/21 05/30/21 History Gabapentin [Neurontin] 300 mg PO TID 01/18/21 05/31/21 05/31/21 12:49 History propranoloL [Inderal] 40 mg PO BID 01/18/21 05/31/21 05/30/21 History predniSONE [Deltasone] 40 mg PO QDAY #10 tab 05/18/21 05/31/21 05/30/21 Rx Active Meds: Active Medications Acetaminophen (Acetaminophen 325 Mg Tab) 650 mg PO Q6H PRN PRN Reason: Pain, Mild (1-3) Albuterol (Albuterol 2.5 Mg/3 Ml Nebu) 2.5 mg IH Q3HRT PRN PRN Reason: Shortness Of Breath Alprazolam (Alprazolam 0.5 Mg Tab) 0.5 mg PO TID [facility] Last Admin: 06/07/21 08:00 Dose: 0.5 mg Aspirin (Aspirin Ec 81 Mg Tab) 81 mg PO QDAY [facility] Last Admin: 06/07/21 10:09 Dose: 81 mg Famotidine (Famotidine 20 Mg Tab) 20 mg PO BID [facility] Last Admin: 06/07/21 10:09 Dose: 20 mg Heparin Sodium (Porcine) (Heparin 10,000 Units/10 Ml Vial) 4,500 unit 40 unit/kg (4500 unit) IV Q6H PRN PRN Reason: Anti-Xa Assay < 0.1 units/ml Heparin Sodium/Sodium Chloride (Heparin/ 0.45% Nacl-25,000 Unit/500 Ml) 25,000 unit in 500 mls @ 30 mls/hr IV TITR ELLIOTT; Protocol Last Admin: 06/07/21 00:45 Dose: 1,900 units/hr, 38 mls/hr Sodium Chloride (Nacl 0.9% 1000 Ml) 1,000 mls @ 42 mls/hr IV DIRECT ELLIOTT Vancomycin HCl 1,500 mg/ (Sodium Chloride) 530 mls @ 333.333 mls/hr IV Q12H [facility] Last Admin: 06/07/21 05:04 Dose: 333.333 mls/hr Ibuprofen (Ibuprofen 800 Mg Tab) 800 mg PO Q8H PRN PRN Reason: Fever >101 Last Admin: 06/06/21 13:37 Dose: 800 mg Levetiracetam (Levetiracetam 500 Mg Tab) 500 mg PO BID [facility] Last Admin: 06/07/21 10:13 Dose: 500 mg Levothyroxine Sodium (Levothyroxine 150 Mcg Tab) 150 mcg PO DAILY@0600 [facility] Last Admin: 06/07/21 05:04 Dose: 150 mcg Morphine Sulfate (Morphine 2 Mg/1 Ml Inj) 2 mg IV Q8H PRN PRN Reason: Pain, Moderate (4-6) Last Admin: 06/07/21 08:29 Dose: 2 mg Ondansetron HCl (Ondansetron 4 Mg/2 Ml Inj) 4 mg IV Q4H PRN PRN Reason: Nausea And Vomiting Last Admin: 06/05/21 20:21 Dose: 4 mg Propranolol HCl (Propranolol 40 Mg Tab) 40 mg PO BID [facility] Last Admin: 06/07/21 10:09 Dose: 40 mg Quetiapine Fumarate (Quetiapine 100 Mg Tab) 100 mg PO QAM [facility] Last Admin: 06/07/21 10:12 Dose: 100 mg Sodium Chloride (Sodium Chloride 0.9% 10 Ml Flush Syringe) 10 ml IV BID [facility] Last Admin: 06/07/21 10:14 Dose: 10 ml Sodium Chloride (Sodium Chloride 0.9% 10 Ml Flush Syringe) 10 ml IV PRN PRN PRN Reason: LINE FLUSH Tramadol HCl (Tramadol 50 Mg Tab) 100 mg PO TID [facility] Last Admin: 06/07/21 08:00 Dose: 100 mg Warfarin Sodium (Warfarin 10 Mg Tab) 10 mg PO ONCE@1700 NR Stop: 06/07/21 16:59 Last Admin: 06/06/21 17:13 Dose: 10 mg Warfarin Sodium (Warfarin 2.5 Mg Tab) 2.5 mg PO ONCE@1700 NR Stop: 06/07/21 16:59 Last Admin: 06/06/21 17:12 Dose: 2.5 mg Physical Examination - Physical Exam Narrative exam: Physical Exam: Constitutional: Alert, cooperative. No acute distress Head, Ears, Nose: Normocephalic, atraumatic. External ears, nose normal Eyes: Conjunctivae/corneas clear. No icterus. No ptosis. Neck: Supple, no meningeal signs Cardiovascular: S1, S2 +, murmur + Respiratory: Good air entry, clear to auscultation bilaterally GI: Soft, non-tender; bowel sounds normal. No peritoneal signs Musculoskeletal: No pedal edema, no cyanosis. Skin: No rash or abscess Hem/Lymphatic: No palpable cervical or supraclavicular nodes. No lymphangitis Psych: Mood ok. Affect normal Neurological: Awake, alert, oriented. No gross abnormality - Constitutional Vitals: Vital Signs Temp Pulse Resp BP Pulse Ox 98.3 F 86 20 114/53 97 06/07/21 10:39 06/07/21 10:39 06/07/21 10:39 06/07/21 10:39 06/07/21 10:39 Temperature -Last 24 Hours Temperature 98.3 F Temperature 99.9 F Temperature 97.7 F Temperature 98.6 F Temperature 101.3 F Results - Labs CBC & Chem 7: 06/05/21 11:01 06/05/21 10:40 - Imaging and Cardiology Chest x-ray: report reviewed, image reviewed (no pneumonia) Assessment and Plan Cultures: 06/04/2021 blood culture: Staph aureus 06/05/2021 urine culture: Usual skin john A/P: 40-year-old female with hypertension, pulmonary embolism, DVT, Graves' disease, history of aortic dissection s/p TEVAR, pericarditis was admitted to the hospital with chest pain, bilateral calf swelling, CT chest angio revealed acute bilateral pulmonary thromboemboli with mild right ventricular strain and scattered pneumonitis throughout the lungs. She was admitted to the hospital on 05/29/2021. On 06/04 2021, she started spiking fevers up to 103.1 F: #Sepsis, secondary to Staphylococcus aureus bacteremia: Source unclear but could be related to central line related blood stream infection. TTE did not reveal any valvular vegetations. Showed mild pulmonary hypertension and mild to moderate tricuspid regurgitation #Bilateral pulmonary embolism: On anticoagulation Recs: -Repeat blood cultures ordered -Continue IV vancomycin for now -Ceftriaxone, azithromycin discontinued -Follow-up blood culture identification and susceptibilities -If bacteremia is persistent, might suggest seeding of her clots and may need longer IV antibiotic therapy, also patient has a TEVAR, so will need a HANK Stephanie June MD, FACP, [facility] O: [phone] F: [phone] C: [phone]
[2021-06-07 13:21] LABS: Hematocrit 23.6 % (30.3-42.9); Hemoglobin 7.1 gm/dl (10.1-14.3)
[2021-06-07 13:33] LABS: INR 1.48 (0.87-1.13)
[2021-06-07] MEDS ORDERED: WARFARIN 2.5 MG TAB PO NR (17:00)
[2021-06-07] MEDS ORDERED: WARFARIN 10 MG TAB PO NR (17:00)
[2021-06-07] MEDS: SODIUM CHLORIDE 0.9% 1000 ML 1,000 ML IV SCH (17:02)
[2021-06-08] MEDS: MORPHINE 2 MG/1 ML INJ IV PRN ×3 (00:34→17:47)
[2021-06-08] MEDS: LEVOTHYROXINE 150 MCG TAB PO SCH (05:05)
[2021-06-08 05:51] LABS: Alanine Aminotransferase 19 units/L (7-56); Albumin 2.7 g/dL (3.9-5); BUN/Creatinine Ratio 6; Blood Urea Nitrogen 7 mg/dL (7-17); Calcium 7.4 mg/dL (8.4-10.2); Hemolysis Index 9
[2021-06-08] MEDS: VANCOMYCIN 1,500 MG in SODIUM CHLORIDE 0.9% 500 ML 500 ML IV SCH (05:51)
[2021-06-08] MEDS: ALPRAZolam 0.5 MG TAB PO SCH ×3 (08:00→20:07)
[2021-06-08] MEDS: traMADol 50 MG TAB PO SCH ×4 (08:00→20:08)
--- NOTE | 2021-06-08 08:54 | Progress Note ---
Assessment and Plan Assessment and plan: HPI: 40 years old female with past medical history of hypertension, PE x2, (R lung 05/2016, L lung 01/2017--on coumadin), R leg DVT 03/2017, Graves Disease, heart murmur, aortic dissection, PERICARDITIS, thyroid storm GERD was brought to the hospital because of chest pain, retrosternal, sharp, radiating to back, 10/10, worsened by deep breaths, not relieved by anything, associated with SOB. Denies palpitations, diaphoresis. Endorses bilateral leg swelling, pain in her calves. Denies recent travel, immobilization, surgery, hospitalization, Hormonal contraceptive use. In the emergency room initial CT scan of the chest shows acute bilateral pulmonary thromboemboli with evidence of mild right ventricular restaurant. Scattered pneumonitis noted throughout the both lungs.'s were going to admit the patient to the medical telemetry put the patient on IV heparin we also order echocardiogram Hospital Course: 06/05: Is unclear to me why the patient was transferred to the IMCU as I do not have any clear documentation to the results but in effect I was told by the nurse that the patient had pulled out his for her femoral line and did not have an access. Patient appears to have been having fever for a few days no known etiology we will proceed with a sepsis work-up although closely reviewing her case shows a history of thyroid storm in the past and she has not been receiving her thyroid medication while she does not have confusion at this time she does have tachycardia and tachypnea. We will give her a dose of IV levothyroxine today and start her daily dose of levothyroxine a.m. She has been on her propranolol although her home dose appears confusing as she gets 40 mg once daily and also 20 mg twice a day will discuss with her to clarify this and also with her pharmacy. She did have a right IJ triple-lumen catheter placed yesterday I discussed with her in the setting of well-documented by the nurse that she takes Midol at home which contains acetaminophen she is agreeable to trial acetaminophen as she wants to come off the cooling blanket. I also consulted ID and ordered a urinalysis with urine culture and some fluid support. I reviewed her CT scan and echocardiogram while the CT mentions the pulmonary embolism with mild right heart strain the echo shows a RVSP of 32 mmHg. I will proceed with consulting pulmonary in her case she would definitely need a qa software tester outpatient. She continues on heparin drip while awaiting for therapeutic INR. In the meantime continue with antibiotic Right internal jugular vein triple-lumen catheter placement under ultrasound guidance 06/06: Patient seen and examined, showing some improvement, will follow cultures result, Continue abx, clinical stable, ID input, close eye on Hemoglobin. WBC mildly trended up. will transfer back to [facility]. 06/07: Continue supportive care, awaiting Cultures for ID and sensitivity in the meantime continue antibiotic. Am LABS. Patient continues on heparin drip until INR is therapeutic. I encouraged her to ambulate in her room and also set up on the chair. Cultures for COVID was negative. We will obtain PT OT evaluation. In short summary patient is a 40-year-old female with hypertension pulmonary embolism lower extremity DVT in the past on Coumadin who presented with shortness of breath diagnosed with pulmonary embolism admitted intermittently sepsis doubt septic emboli currently on antibiotics. Restarted on her thyroid medication with no evidence of thyroid storm. 06/08: resting comfortably on encounter. Afebrile today. Vital signs improved. 94% on 3L/min NC. Pain medication appears to be excessive as patient is heavily sedated, will scale back pain medication. D/w cardiology Dr Canseco regarding con cern for endocarditis and possible infected TEVAR graft as potential source of infection. Consult placed for HANK. Will continue to follow culture data. Continue IV vancomycin per ID direction. INR remains subtherapeutic for treatment of DVT/PE but increased to 1.48, will continue warfarin at current dosage and heparin gtt at this time. Assessment and Plan: #Sepsis, MSSA bacteremia -patient with Tmax of 102, tachycardic. Etiology unclear, line infection vs endo carditis, infected TEVAR graft. -patient with R femoral central line, ordered to be removed -06/04 bcx: 3/4 bottles MSSA - 06/07 bcx: NGTD - urine culture: NGTD -vancomycin IV, may need extended abx if bacteremia persists -TTE negative for valvular vegetations - ID following - cardiology consulted for HANK. #Hypotension (resolved) -Patient with low blood pressure at night -IVF started -avoid antihypotensives -labetalol currently held #Acute pulmonary embolism #Acute chest pain #History of DVT on warfarin Troponin unremarkable, chest x-ray unremarkable, bilateral lower extremity venous Dopplers unremarkable for acute DVT CT angio chest revealing acute bilateral pulmonary emboli with evidence of right heart strain Home medication of warfarin 7.5 mg daily; however, INR 1.03. Patient endorses being compliant with her anticoagulation. Continue heparin drip and bridged warfarin daily until therapeutic (goal 2.53.5). TTE without evidence of right heart strain #Seizure disorder #Anxiety Continue home medications: Keppra 500 mg twice daily, Quetiapine 100 mg every morning and 300 mg nightly, alprazolam 0.5 mg 3 times daily #History of aortic dissection s/p tevar. #Hypothyroidism -resume home levothyroxine #microcytic anemia -stable Transfuse if hemoglobin less than 7 or patient become symptomatic #Morbid obesity #Weight loss counseling #Exercise counseling - BMI 39.1 - Counseled patient on the importance of weight loss, incorporating exercise, and dietary changes (lean meats, fresh fruits and vegetables, and water intake). Patient expresses understanding. #Advanced care planning -Disease education conducted, care plan discussed, diagnoses discussed, prognosis discussed, and patient acknowledges understanding with care plan -Time: +30 min History Interval history: Saw and evaluated the patient at bedside. Patient had no acute overnight events. Patient only complaint this morning was burning leg pain sensation. Hospitalist Physical - Physical exam Narrative exam: GENERAL: Well-developed well-nourished. In no acute distress. but no respiratory distress CHEST/LUNGS: CTAB on room air HEART/CARDIOVASCULAR: Regular rate and rhythm. No murmur, rubs or gallops appreciated. ABDOMEN: +BS. NT/ND. SKIN: No rashes noted. : Right IJ cath in place NEURO: No focal motor deficit. MUSCULOSKELETAL: No joint effusion, WARM TO TOUGH EXTREMITIES: No cyanosis, clubbing or trace edema. PSYCH: Cooperative. - Constitutional Vitals: Temp Pulse Resp BP Pulse Ox 98.4 F 88 16 149/86 94 06/08/21 05:12 06/08/21 05:12 06/08/21 05:12 06/08/21 05:12 06/08/21 05:12 General appearance: Present: no acute distress, well-nourished HEART Score - HEART Score Troponin: Troponin T < 0.010 ng/mL (0.00-0.029) 05/30/21 04:46 Results - Labs CBC & Chem 7: 06/07/21 12:55 06/08/21 04:52 Labs: Laboratory Last Values WBC 14.0 K/mm3 (4.5-11.0) H 06/05/21 11:01 RBC 3.37 M/mm3 (3.65-5.03) L 06/05/21 11:01 Hgb 7.1 gm/dl (10.1-14.3) L 06/07/21 12:55 Hct 23.6 % (30.3-42.9) L 06/07/21 12:55 MCV 74 fl (79-97) L 06/05/21 11:01 MCH 22 pg (28-32) L 06/05/21 11:01 MCHC 30 % (30-34) 06/05/21 11:01 RDW 25.0 % (13.2-15.2) H 06/05/21 11:01 Plt Count 274 K/mm3 (140-440) 06/07/21 12:55 Add Manual Diff Complete 06/05/21 11:01 Total Counted 100 06/05/21 11:01 Seg Neuts % (Manual) 94.0 % (40.0-70.0) H 06/05/21 11:01 Band Neutrophils % 0 % 06/05/21 11:01 Lymphocytes % (Manual) 3.0 % (13.4-35.0) L 06/05/21 11:01 Reactive Lymphs % (Man) 0 % 06/05/21 11:01 Monocytes % (Manual) 1.0 % (0.0-7.3) 06/05/21 11:01 Eosinophils % (Manual) 2.0 % (0.0-4.3) 06/05/21 11:01 Basophils % (Manual) 0 % (0.0-1.8) 06/05/21 11:01 Metamyelocytes % 0 % 06/05/21 11:01 Myelocytes % 0 % 06/05/21 11:01 Promyelocytes % 0 % 06/05/21 11:01 Blast Cells % 0 % 06/05/21 11:01 Nucleated RBC % Not Reportable 06/05/21 11:01 Seg Neutrophils # Man 13.2 K/mm3 (1.8-7.7) H 06/05/21 11:01 Band Neutrophils # 0.0 K/mm3 06/05/21 11:01 Lymphocytes # (Manual) 0.4 K/mm3 (1.2-5.4) L 06/05/21 11:01 Abs React Lymphs (Man) 0.0 K/mm3 06/05/21 11:01 Monocytes # (Manual) 0.1 K/mm3 (0.0-0.8) 06/05/21 11:01 Eosinophils # (Manual) 0.3 K/mm3 (0.0-0.4) 06/05/21 11:01 Basophils # (Manual) 0.0 K/mm3 (0.0-0.1) 06/05/21 11:01 Metamyelocytes # 0.0 K/mm3 06/05/21 11:01 Myelocytes # 0.0 K/mm3 06/05/21 11:01 Promyelocytes # 0.0 K/mm3 06/05/21 11:01 Blast Cells # 0.0 K/mm3 06/05/21 11:01 WBC Morphology Not Reportable 06/05/21 11:01 Hypersegmented Neuts Not Reportable 06/05/21 11:01 Hyposegmented Neuts Not Reportable 06/05/21 11:01 Hypogranular Neuts Not Reportable 06/05/21 11:01 Smudge Cells Not Reportable 06/05/21 11:01 Toxic Granulation Not Reportable 06/05/21 11:01 Toxic Vacuolation Not Reportable 06/05/21 11:01 Dohle Bodies Not Reportable 06/05/21 11:01 Pelger-Huet Anomaly Not Reportable 06/05/21 11:01 Jaime Rods Not Reportable 06/05/21 11:01 Platelet Estimate Consistent w auto 06/05/21 11:01 Clumped Platelets Not Reportable 06/05/21 11:01 Plt Clumps, EDTA Not Reportable 06/05/21 11:01 Large Platelets Not Reportable 06/05/21 11:01 Giant Platelets Not Reportable 06/05/21 11:01 Platelet Satelliting Not Reportable 06/05/21 11:01 Plt Morphology Comment Not Reportable 06/05/21 11:01 RBC Morphology Not Reportable 06/05/21 11:01 Dimorphic RBCs Not Reportable 06/05/21 11:01 Polychromasia Not Reportable 06/05/21 11:01 Hypochromasia 2+ 06/05/21 11:01 Poikilocytosis Not Reportable 06/05/21 11:01 Anisocytosis 2+ 06/05/21 11:01 Microcytosis 1+ 06/05/21 11:01 Macrocytosis Not Reportable 06/05/21 11:01 Spherocytes Not Reportable 06/05/21 11:01 Pappenheimer Bodies Not Reportable 06/05/21 11:01 Sickle Cells Not Reportable 06/05/21 11:01 Target Cells Not Reportable 06/05/21 11:01 Tear Drop Cells Not Reportable 06/05/21 11:01 Ovalocytes Not Reportable 06/05/21 11:01 Helmet Cells Not Reportable 06/05/21 11:01 Graves-[place] Bodies Not Reportable 06/05/21 11:01 Schwertner Rings Not Reportable 06/05/21 11:01 [place] Cells Not Reportable 06/05/21 11:01 Bite Cells Not Reportable 06/05/21 11:01 Crenated Cell Not Reportable 06/05/21 11:01 Elliptocytes Not Reportable 06/05/21 11:01 Acanthocytes (Spur) Not Reportable 06/05/21 11:01 Rouleaux Not Reportable 06/05/21 11:01 Hemoglobin C Crystals Not Reportable 06/05/21 11:01 Schistocytes Not Reportable 06/05/21 11:01 Malaria parasites Not Reportable 06/05/21 11:01 Koffi Bodies Not Reportable 06/05/21 11:01 Hem Pathologist Commnt No 06/05/21 11:01 PT 19.7 Sec. (12.2-14.9) H 06/07/21 12:55 INR 1.48 (0.87-1.13) H 06/07/21 12:55 APTT 52.6 Sec. (24.2-36.6) H 05/31/21 06:40 Heparin Anti-Xa Level 0.49 U.I./ml (0.3-0.7) 06/07/21 12:55 Sodium 144 mmol/L (137-145) D 06/08/21 04:52 Potassium 3.6 mmol/L (3.6-5.0) 06/08/21 04:52 Chloride 116.6 mmol/L (98-107) H 06/08/21 04:52 Carbon Dioxide 18 mmol/L (22-30) L 06/08/21 04:52 Anion Gap 13 mmol/L 06/08/21 04:52 BUN 7 mg/dL (7-17) 06/08/21 04:52 Creatinine 1.1 mg/dL (0.6-1.2) D 06/08/21 04:52 Estimated GFR > 60 ml/min 06/08/21 04:52 BUN/Creatinine Ratio 6 % 06/08/21 04:52 Glucose 91 mg/dL (65-100) 06/08/21 04:52 Lactic Acid 0.70 mmol/L (0.7-2.0) 06/05/21 10:40 Calcium 7.4 mg/dL (8.4-10.2) L 06/08/21 04:52 Total Bilirubin < 0.20 mg/dL (0.1-1.2) 06/08/21 04:52 AST 12 units/L (5-40) 06/08/21 04:52 ALT 19 units/L (7-56) 06/08/21 04:52 Alkaline Phosphatase 86 units/L (35-129) 06/08/21 04:52 Troponin T < 0.010 ng/mL (0.00-0.029) 05/30/21 04:46 Total Protein 4.7 g/dL (6.3-8.2) L 06/08/21 04:52 Albumin 2.7 g/dL (3.9-5) L 06/08/21 04:52 Albumin/Globulin Ratio 1.4 % 06/08/21 04:52 Lipase 31 units/L (13-60) 05/30/21 04:41 TSH 0.034 mlU/mL (0.270-4.200) L 06/05/21 10:40 Free T4 1.29 ng/dL (0.76-1.46) 06/05/21 10:40 HCG, Qual Negative (Negative) 05/29/21 23:24 Urine Color Yellow (Yellow) 06/05/21 12:20 Urine Turbidity Slightly-cloudy (Clear) 06/05/21 12:20 Urine pH 6.0 (5.0-7.0) 06/05/21 12:20 Ur Specific [place] 1.004 (1.003-1.030) 06/05/21 12:20 Urine Protein <15 mg/dl mg/dL (Negative) 06/05/21 12:20 Urine Glucose (UA) Neg mg/dL (Negative) 06/05/21 12:20 Urine Ketones Neg mg/dL (Negative) 06/05/21 12:20 Urine Blood Mod (Negative) 06/05/21 12:20 Urine Nitrite Neg (Negative) 06/05/21 12:20 Urine Bilirubin Neg (Negative) 06/05/21 12:20 Urine Urobilinogen < 2.0 mg/dL (<2.0) 06/05/21 12:20 Ur Leukocyte Esterase Neg (Negative) 06/05/21 12:20 Urine WBC (Auto) 2.0 /HPF (0.0-6.0) 06/05/21 12:20 Urine RBC (Auto) 37.0 /HPF (0.0-6.0) 06/05/21 12:20 U Epithel Cells (Auto) 3.0 /HPF (0-13.0) 06/05/21 12:20 Urine Bacteria (Auto) 4+ /HPF (Negative) 06/05/21 12:20 Urine Mucus Few /HPF 06/05/21 12:20 Vancomycin Trough 25.1 ug/mL (5.0-20.0) H 06/08/21 04:52 Coronavirus (PCR) Negative (Negative) 06/05/21 07:26 Influenza A (Rapid) Negative (Negative) 06/05/21 14:06 Influenza A (RT-PCR) Negative (Negative) 06/05/21 14:06 Influenza B (Rapid) Negative (Negative) 06/05/21 14:06 Influenza B (RT-PCR) Negative (Negative) 06/05/21 14:06 Blood Type B POSITIVE 06/05/21 10:40 Antibody Screen Negative 06/05/21 10:40 Microbiology: Microbiology 06/07/21 15:47 Peripheral/Venous Blood Culture - Preliminary Culture in Progress 06/07/21 15:47 Peripheral/Venous Blood Culture - Preliminary Culture in Progress 06/04/21 06:18 Peripheral/Venous Blood Culture - Preliminary Staphylococcus Aureus 06/04/21 07:41 Peripheral/Venous Blood Culture - Final Staphylococcus Aureus 06/05/21 Unknown Urine,Clean Catch Urine Culture - Final Rojas/IV: Voiding Method Bedside Commode Active Medications - Current Medications Current Medications: Generic Name Dose Route Start Last Admin Trade Name Freq PRN Reason Stop Dose Admin Acetaminophen 650 mg 06/05/21 07:48 Acetaminophen 325 Mg Tab PO Q6H PRN Pain, Mild (1-3) Albuterol 2.5 mg 05/30/21 05:14 Albuterol 2.5 Mg/3 Ml Nebu IH Q3HRT PRN Shortness Of Breath Alprazolam 0.5 mg 05/30/21 08:00 06/07/21 20:46 Alprazolam 0.5 Mg Tab PO Not Given TID ELLIOTT Aspirin 81 mg 05/30/21 10:00 06/07/21 10:09 Aspirin Ec 81 Mg Tab PO 81 mg QDAY ELLIOTT Administration Famotidine 20 mg 05/30/21 10:00 06/07/21 21:58 Famotidine 20 Mg Tab PO 20 mg BID ELLIOTT Administration Heparin Sodium (Porcine) 4,500 unit 06/03/21 09:46 Heparin 10,000 Units/10 Ml Vial 40 unit/kg (4500 unit) IV Q6H PRN Anti-Xa Assay < 0.1 units/ml Heparin Sodium/Sodium Chloride 25,000 unit in 500 mls @ 30 mls/hr 06/03/21 10:00 06/07/21 20:37 Heparin/ 0.45% Nacl-25,000 Unit/500 Ml IV 1,900 units/hr TITR ELLIOTT 38 mls/hr Administration Protocol 1,500 UNITS/HR Sodium Chloride 1,000 mls @ 42 mls/hr 06/06/21 15:15 06/07/21 17:02 Nacl 0.9% 1000 Ml IV 42 mls/hr DIRECT ELLIOTT Administration Vancomycin HCl 1,500 mg/ 530 mls @ 333.333 mls/hr 06/06/21 16:00 06/08/21 05:51 Sodium Chloride IV Not Given Q12H ELLIOTT Ibuprofen 800 mg 06/05/21 08:00 06/06/21 13:37 Ibuprofen 800 Mg Tab PO 800 mg Q8H PRN Administration Fever >101 Levetiracetam 500 mg 05/30/21 10:00 06/07/21 21:58 Levetiracetam 500 Mg Tab PO 500 mg BID ELLIOTT Administration Levothyroxine Sodium 150 mcg 06/06/21 06:00 06/08/21 05:05 Levothyroxine 150 Mcg Tab PO 150 mcg DAILY@0600 ELLIOTT Administration Morphine Sulfate 2 mg 06/03/21 09:30 06/08/21 00:34 Morphine 2 Mg/1 Ml Inj IV 2 mg Q8H PRN Administration Pain, Moderate (4-6) Ondansetron HCl 4 mg 06/05/21 08:00 06/05/21 20:21 Ondansetron 4 Mg/2 Ml Inj IV 4 mg Q4H PRN Administration Nausea And Vomiting Propranolol HCl 40 mg 05/30/21 10:00 06/07/21 21:58 Propranolol 40 Mg Tab PO 40 mg BID ELLIOTT Administration Quetiapine Fumarate 100 mg 05/30/21 10:00 06/07/21 10:12 Quetiapine 100 Mg Tab PO 100 mg QAM ELLIOTT Administration Sodium Chloride 10 ml 05/30/21 10:00 06/07/21 21:58 Sodium Chloride 0.9% 10 Ml Flush Syringe IV 10 ml BID ELLIOTT Administration Sodium Chloride 10 ml 05/30/21 05:14 Sodium Chloride 0.9% 10 Ml Flush Syringe IV PRN PRN LINE FLUSH Tramadol HCl 100 mg 05/30/21 08:00 06/07/21 20:46 Tramadol 50 Mg Tab PO Not Given TID ELLIOTT Warfarin Sodium 10 mg 06/07/21 17:00 06/07/21 16:48 Warfarin 10 Mg Tab PO 06/08/21 16:59 10 mg ONCE@1700 NR Administration Warfarin Sodium 2.5 mg 06/07/21 17:00 06/07/21 16:48 Warfarin 2.5 Mg Tab PO 06/08/21 16:59 2.5 mg ONCE@1700 NR Administration Nutrition/Malnutrition Assess - Dietary Evaluation Nutrition/Malnutrition Findings: Nutrition Notes Start: 05/31/21 12:39 Freq: Status: Active Protocol: Document 06/07/21 18:49 JAMES (Rec: 06/07/21 19:06 JAMES [id number]) Nutrition Notes Initial or Follow up Reassessment Current Diagnosis Sepsis,Hypertension Other Pertinent Diagnosis LE DVT, Bilateral Pulmonary Thromboembolism, R-Ventricular Strain, Pericard Current Diet Cardiac Diet (since B 05/30). Labs/Tests 04/18: Na 135, CO2 20, Ca 7.8. Pertinent Medications 06/07: Levothyroxine, Warfarin 12.5 mg, others nutritionally unremarkable. Height 5 ft 7 in Weight 111 kg [place] Body Weight (kg) 61.36 BMI 38.3 Weight change and time frame No body weight change reported in 1 week. Weight Status Obese Subjective/Other Information RD consult for routine F/U on dietary advancement. Pt's PO intake of meals has been Good (75%), according to ADL notes. Pt ois on Room Air, O2 saturation @ 98%, according to Vital Signs notes. Percent of energy/protein needs met: Prescribed Cardiac Diet provides for energy/protein needs (2,230 Kcal/85 g) during LOS. Burn Absent Trauma Absent GI Symptoms None Food Allergy Yes Skin Integrity/Comment Assessment WNL. Current % PO Good (75-100%) Minimum of two criteria No Is patient on ventilator? No Is Patient Ambulatory and/or Out of Bed Yes REE-([place]-St. Jeor-ambulatory/OOB) [ 2356.419 [id number]] Kcal/Kg value to use for calculation 16 Approximate Energy Requirements Using 1776 kcal/Kg Calculation Used for Recommendations Kcal/kg Additional Notes Protein: 0.8-1 g/Kg AdjBW; 68- 86 g/day. Fluids: 1 ml/Kcal, or as per MD. Nutrition Intervention Change Diet Order: Continue Cardiac Diet. Follow-Up By: 06/14/21 Additional Comments Continue monitoring food tolerance, %PO intake of meals , and BM.
[2021-06-08] MEDS: FAMOTIDINE 20 MG TAB PO SCH ×2 (09:04→22:24)
[2021-06-08] MEDS: levETIRAcetam 500 MG TAB PO SCH ×2 (09:04→22:24)
[2021-06-08] MEDS: QUEtiapine 100 MG TAB PO SCH (09:04)
[2021-06-08] MEDS: ASPIRIN EC 81 MG TAB PO SCH (09:04)
[2021-06-08] MEDS: PROPRANOLOL 40 MG TAB PO SCH ×2 (09:32→22:23)
--- NOTE | 2021-06-08 11:17 | Progress Note ---
Assessment and Plan Cultures: 06/04/2021 blood culture: MSSA 06/05/2021 urine culture: Usual skin john 06/07/2021 blood culture: In process A/P: 40-year-old female with hypertension, pulmonary embolism, DVT, Graves' disease, history of aortic dissection s/p TEVAR, pericarditis was admitted to the hospital with chest pain, bilateral calf swelling, CT chest angio revealed acute bilateral pulmonary thromboemboli with mild right ventricular strain and scattered pneumonitis throughout the lungs. She was admitted to the hospital on 05/29/2021. On 06/04 2021, she started spiking fevers up to 103.1 F: #Sepsis, secondary to MSSA bacteremia: Source unclear but could be related to central line related blood stream infection from a femoral TLC which was removed. TTE did not reveal any valvular vegetations. Showed mild pulmonary hypertension and mild to moderate tricuspid regurgitation. #Bilateral pulmonary embolism: On anticoagulation Recs: -f/u repeat blood cultures -Given MSSA, will switch to IV Ancef, higher dose due to morbid obesity -If bacteremia is persistent, might suggest seeding of her clots and will need longer course IV antibiotic therapy, also patient has a TEVAR, so will need a HANK Stephanie June MD, FACP, [facility] ([facility] O: [phone] F: [phone] C: [phone] Subjective Date of service: 06/08/21 Principal diagnosis: Sepsis; Acute P.E.; Chest pain; H/O DVT; Seizures; Hypothyroidism; Obesity Interval history: No fever. Complains of leg burning. Otherwise she is feeling well. No vomiting. Objective - Exam Narrative Exam: Physical Exam: Constitutional: Alert, cooperative. No acute distress Head, Ears, Nose: Normocephalic, atraumatic. External ears, nose normal Eyes: Conjunctivae/corneas clear. No icterus. No ptosis. Neck: Supple, no meningeal signs Cardiovascular: S1, S2 +, murmur + Respiratory: Good air entry, clear to auscultation bilaterally GI: Soft, non-tender; bowel sounds normal. No peritoneal signs Musculoskeletal: No pedal edema, no cyanosis. Skin: No rash or abscess Hem/Lymphatic: No palpable cervical or supraclavicular nodes. No lymphangitis Psych: Mood ok. Affect normal Neurological: Awake, alert, oriented. No gross abnormality - Constitutional Vitals: Vital Signs Temp Pulse Resp BP Pulse Ox 98.4 F 88 16 149/86 97 06/08/21 05:12 06/08/21 05:12 06/08/21 05:12 06/08/21 05:12 06/08/21 10:00 Temperature -Last 24 Hours Temperature 98.4 F Temperature 98.1 F Temperature 98.8 F - Labs CBC & Chem 7: 06/07/21 12:55 06/08/21 04:52 Labs: Abnormal lab results 06/07/21 06/07/21 06/08/21 Range/Units 12:55 12:55 04:52 Hgb 7.1 L (10.1-14.3) gm/dl Hct 23.6 L (30.3-42.9) % PT 19.7 H (12.2-14.9) Sec. INR 1.48 H (0.87-1.13) Chloride 116.6 H (98-107) mmol/L Carbon Dioxide 18 L (22-30) mmol/L Calcium 7.4 L (8.4-10.2) mg/dL Total Protein 4.7 L (6.3-8.2) g/dL Albumin 2.7 L (3.9-5) g/dL Vancomycin Trough (5.0-20.0) ug/mL 06/08/21 Range/Units 04:52 Hgb (10.1-14.3) gm/dl Hct (30.3-42.9) % PT (12.2-14.9) Sec. INR (0.87-1.13) Chloride (98-107) mmol/L Carbon Dioxide (22-30) mmol/L Calcium (8.4-10.2) mg/dL Total Protein (6.3-8.2) g/dL Albumin (3.9-5) g/dL Vancomycin Trough 25.1 H (5.0-20.0) ug/mL
--- NOTE | 2021-06-08 13:49 | Progress Note ---
Assessment and Plan Sepsis MSSA Bacteremia Acute pulmonary embolism Acute chest pain History of DVT on warfarin Seizure disorder Anxiety Hypothyroidism microcytic anemia Morbid obesity Hypotension (Resolved) - to switch to Ancef re: MSSA - continue care as below otherwise; - continue full anticoagulation with IV Heparin - follow H&H closely; PRBC transfusions for serum Hb < 7.0 g/dl - continue vancomycin; de-escalate per ID recommendations - continue Keppra as AED - continue thyroid replacement therapy - follow clinically re: fever curves / trend WBC - supplemental oxygen to keep O2 sats > 90% - bronchodilators (ALVERTO) with pulm hygiene per RT - continue to avoid nephrotoxins, renally dose all medications - continue mobility protocols to prevent pressure ulcers - PT/OT as tolerated - Wound care per RN/WCT - continue accuchecks with glycemic control per SSI for target blood glucose < 180 mg/dL - tobacco abstinence strongly counseled at the bedside - home oxygen evaluation at discharge - prn analgesia per pain score - GI prophylaxis with Pepcid - Flu & pneumovax per protocol - Pulmonary out patient follow up for PFTs and optimization of respiratory status - life style modifications counseled re: weight loss, better medication compliance - continue other care per attending / other consultants ... re-evaluate in am & prn Subjective Date of service: 06/08/21 Principal diagnosis: Sepsis; Acute P.E.; Chest pain; H/O DVT; Seizures; Hypothyroidism; Obesity Interval history: Patient is seen today for: Sepsis; Acute pulmonary embolism; Acute chest pain; H/O DVT; Seizure disorder; Hypothyroidism; Anemia; Morbid obesity; Hypotension (Resolved); MSSA Bacteremia Seen and examined at bedside; 24hour events reviewed; nursing and respiratory care staff consulted; no adverse overnight events reported to me; resting in bed; remains on IV Heparin; no gross bleeding Objective Vital Signs - 12hr 06/08/21 06/08/21 06/08/21 05:12 10:00 11:06 Temperature 98.4 F 99.4 F Pulse Rate 88 86 Respiratory 16 24 Rate Blood Pressure 149/86 140/73 O2 Sat by Pulse 94 97 94 Oximetry Constitutional: appears uncomfortable, other (elderly morbidly obese female with mildly increased respiratory effort at rest) Eyes: non-icteric ENT: oropharynx moist Neck: supple, no lymphadenopathy, no JVD, other (large neck circumference; RIJ CVL) Effort: mildly labored Ascultation: Bilateral: clear, diminished breath sounds Percussion: Bilateral: not dull Cardiovascular: regular rate and rhythm Gastrointestinal: normoactive bowel sounds, soft, non-tender, other (distended but soft) Integumentary: normal Extremities: no cyanosis, no edema, pulses normal, no ischemia or petechiae Neurologic: non-focal exam (grossly), pupils equal and round, CN II-XII normal, motor strength normal and Psychiatric: anxious, depressed CBC and BMP: 06/07/21 12:55 06/08/21 04:52 ABG, PT/INR, D-dimer: PT/INR, D-dimer PT 19.7 Sec. (12.2-14.9) H 06/07/21 12:55 INR 1.48 (0.87-1.13) H 06/07/21 12:55 Abnormal lab findings: Abnormal Labs 05/29/21 05/29/21 05/29/21 23:24 23:24 23:29 WBC RBC Hgb 8.8 L Hct 28.7 L MCV 74 L MCH 23 L RDW 26.4 H Seg Neuts % (Manual) 75.0 H Lymphocytes % (Manual) Seg Neutrophils # Man Lymphocytes # (Manual) PT INR APTT 20.9 L Heparin Anti-Xa Level Sodium Chloride Carbon Dioxide 20 L Calcium Total Protein Albumin 3.5 L TSH Vancomycin Trough 05/30/21 05/30/21 05/30/21 08:25 08:25 13:35 WBC RBC Hgb 8.8 L Hct 27.5 L MCV MCH RDW Seg Neuts % (Manual) Lymphocytes % (Manual) Seg Neutrophils # Man Lymphocytes # (Manual) PT 15.4 H INR APTT 107.1 H* Heparin Anti-Xa Level 0.82 H Sodium Chloride Carbon Dioxide Calcium Total Protein Albumin TSH Vancomycin Trough 05/30/21 05/31/21 05/31/21 20:57 06:40 06:40 WBC 13.0 H RBC Hgb 8.9 L Hct 28.5 L MCV 74 L MCH 23 L RDW 25.7 H Seg Neuts % (Manual) 77.0 H Lymphocytes % (Manual) Seg Neutrophils # Man 10.0 H Lymphocytes # (Manual) PT INR APTT 52.6 H Heparin Anti-Xa Level 0.15 L 0.74 H Sodium Chloride Carbon Dioxide Calcium Total Protein Albumin TSH Vancomycin Trough 06/01/21 06/01/21 06/02/21 09:55 10:27 06:15 WBC RBC Hgb 9.4 L Hct MCV MCH RDW Seg Neuts % (Manual) Lymphocytes % (Manual) Seg Neutrophils # Man Lymphocytes # (Manual) PT INR APTT Heparin Anti-Xa Level 0.13 L 0.25 L Sodium Chloride Carbon Dioxide Calcium Total Protein Albumin TSH Vancomycin Trough 06/02/21 06/03/21 06/04/21 23:30 Unknown 07:39 WBC RBC Hgb 8.5 L Hct 28.0 L MCV MCH RDW Seg Neuts % (Manual) Lymphocytes % (Manual) Seg Neutrophils # Man Lymphocytes # (Manual) PT 15.0 H INR APTT Heparin Anti-Xa Level 0.19 L Sodium Chloride Carbon Dioxide Calcium Total Protein Albumin TSH Vancomycin Trough 06/05/21 06/05/21 06/05/21 04:07 04:07 10:40 WBC RBC Hgb 8.4 L Hct 27.3 L MCV MCH RDW Seg Neuts % (Manual) Lymphocytes % (Manual) Seg Neutrophils # Man Lymphocytes # (Manual) PT 17.7 H INR 1.30 H APTT Heparin Anti-Xa Level Sodium Chloride Carbon Dioxide Calcium Total Protein Albumin TSH 0.034 L Vancomycin Trough 06/05/21 06/05/21 06/06/21 10:40 11:01 04:00 WBC 14.0 H RBC 3.37 L Hgb 7.5 L Hct 24.8 L MCV 74 L MCH 22 L RDW 25.0 H Seg Neuts % (Manual) 94.0 H Lymphocytes % (Manual) 3.0 L Seg Neutrophils # Man 13.2 H Lymphocytes # (Manual) 0.4 L PT 17.4 H INR 1.27 H APTT Heparin Anti-Xa Level Sodium 135 L Chloride Carbon Dioxide 20 L Calcium 7.8 L Total Protein Albumin TSH Vancomycin Trough 06/07/21 06/07/21 06/08/21 12:55 12:55 04:52 WBC RBC Hgb 7.1 L Hct 23.6 L MCV MCH RDW Seg Neuts % (Manual) Lymphocytes % (Manual) Seg Neutrophils # Man Lymphocytes # (Manual) PT 19.7 H INR 1.48 H APTT Heparin Anti-Xa Level Sodium Chloride 116.6 H Carbon Dioxide 18 L Calcium 7.4 L Total Protein 4.7 L Albumin 2.7 L TSH Vancomycin Trough 06/08/21 04:52 WBC RBC Hgb Hct MCV MCH RDW Seg Neuts % (Manual) Lymphocytes % (Manual) Seg Neutrophils # Man Lymphocytes # (Manual) PT INR APTT Heparin Anti-Xa Level Sodium Chloride Carbon Dioxide Calcium Total Protein Albumin TSH Vancomycin Trough 25.1 H Allied health notes reviewed: nursing
[2021-06-08] MEDS ORDERED: VANCOMYCIN 2,000 MG in SODIUM CHLORIDE 0.9% 500 ML 500 ML IV SCH (16:00)
[2021-06-08] MEDS ORDERED: WARFARIN 2.5 MG TAB PO NR (17:00)
[2021-06-08] MEDS ORDERED: WARFARIN 10 MG TAB PO NR (17:00)
[2021-06-09] MEDS: MORPHINE 2 MG/1 ML INJ IV PRN ×3 (01:09→20:53)
[2021-06-09] MEDS: LEVOTHYROXINE 150 MCG TAB PO SCH (05:48)
[2021-06-09 07:37] LABS: Hematocrit 22.4 % (30.3-42.9); Hemoglobin 6.9 gm/dl (10.1-14.3); Mean Corpuscular HGB Conc 31 % (30-34); Mean Corpuscular Volume 72 fl (79-97); Platelet Count 327 K/mm3 (140-440); Red Blood Count 3.09 M/mm3 (3.65-5.03)
[2021-06-09 07:37] LABS: INR 1.54 (0.87-1.13)
[2021-06-09] MEDS: ALPRAZolam 0.5 MG TAB PO SCH ×2 (08:21→21:03)
--- NOTE | 2021-06-09 09:03 | Progress Note ---
Assessment and Plan Assessment and plan: HPI: 40 years old female with past medical history of hypertension, PE x2, (R lung 05/2016, L lung 01/2017--on coumadin), R leg DVT 03/2017, Graves Disease, heart murmur, aortic dissection, PERICARDITIS, thyroid storm GERD was brought to the hospital because of chest pain, retrosternal, sharp, radiating to back, 10/10, worsened by deep breaths, not relieved by anything, associated with SOB. Denies palpitations, diaphoresis. Endorses bilateral leg swelling, pain in her calves. Denies recent travel, immobilization, surgery, hospitalization, Hormonal contraceptive use. In the emergency room initial CT scan of the chest shows acute bilateral pulmonary thromboemboli with evidence of mild right ventricular restaurant. Scattered pneumonitis noted throughout the both lungs.'s were going to admit the patient to the medical telemetry put the patient on IV heparin we also order echocardiogram Hospital Course: 06/05: Is unclear to me why the patient was transferred to the IMCU as I do not have any clear documentation to the results but in effect I was told by the nurse that the patient had pulled out his for her femoral line and did not have an access. Patient appears to have been having fever for a few days no known etiology we will proceed with a sepsis work-up although closely reviewing her case shows a history of thyroid storm in the past and she has not been receiving her thyroid medication while she does not have confusion at this time she does have tachycardia and tachypnea. We will give her a dose of IV levothyroxine today and start her daily dose of levothyroxine a.m. She has been on her propranolol although her home dose appears confusing as she gets 40 mg once daily and also 20 mg twice a day will discuss with her to clarify this and also with her pharmacy. She did have a right IJ triple-lumen catheter placed yesterday I discussed with her in the setting of well-documented by the nurse that she takes Midol at home which contains acetaminophen she is agreeable to trial acetaminophen as she wants to come off the cooling blanket. I also consulted ID and ordered a urinalysis with urine culture and some fluid support. I reviewed her CT scan and echocardiogram while the CT mentions the pulmonary embolism with mild right heart strain the echo shows a RVSP of 32 mmHg. I will proceed with consulting pulmonary in her case she would definitely need a director of speech pathology outpatient. She continues on heparin drip while awaiting for therapeutic INR. In the meantime continue with antibiotic Right internal jugular vein triple-lumen catheter placement under ultrasound guidance 06/06: Patient seen and examined, showing some improvement, will follow cultures result, Continue abx, clinical stable, ID input, close eye on Hemoglobin. WBC mildly trended up. will transfer back to [facility]. 06/07: Continue supportive care, awaiting Cultures for ID and sensitivity in the meantime continue antibiotic. Am LABS. Patient continues on heparin drip until INR is therapeutic. I encouraged her to ambulate in her room and also set up on the chair. Cultures for COVID was negative. We will obtain PT OT evaluation. In short summary patient is a 40-year-old female with hypertension pulmonary embolism lower extremity DVT in the past on Coumadin who presented with shortness of breath diagnosed with pulmonary embolism admitted intermittently sepsis doubt septic emboli currently on antibiotics. Restarted on her thyroid medication with no evidence of thyroid storm. 06/08: resting comfortably on encounter. Afebrile today. Vital signs improved. 94% on 3L/min NC. Pain medication appears to be excessive as patient is heavily sedated, will scale back pain medication. D/w cardiology Dr Canseco regarding con cern for endocarditis and possible infected TEVAR graft as potential source of infection. Consult placed for HANK. Will continue to follow culture data. Continue IV vancomycin per ID direction. INR remains subtherapeutic for treatment of DVT/PE but increased to 1.48, will continue warfarin at current dosage and heparin gtt at this time. 06/09: continue therapy for MSSA bacteremia. Awaiting HANK completion. INR 1.54, warfarin 12.5 mg dose given today. Anemic today 6.9, ordered 1 unit prbc. Patient denies any rectal bleeding, bleeding from lines, hematemesis. Suspect anemia of chronic disease and possibly iatrogenic induced from multiple blood draw/line placement attempts. Lower suspicion for occult hematoma but will order CTAP. Assessment and Plan: #Sepsis, MSSA bacteremia -patient with Tmax of 102, tachycardic. Etiology unclear, line infection vs endocarditis, infected TEVAR graft. -patient with R femoral central line, ordered to be removed -06/04 bcx: 3/4 bottles MSSA - 06/07 bcx: NGTD - urine culture: NGTD -vancomycin IV, may need extended abx if bacteremia persists -TTE negative for valvular vegetations - ID following - cardiology consulted for HANK. #Hypotension (resolved) -Patient with low blood pressure at night -IVF started -avoid antihypotensives -labetalol currently held #Acute pulmonary embolism #Acute chest pain #History of DVT on warfarin Troponin unremarkable, chest x-ray unremarkable, bilateral lower extremity venous Dopplers unremarkable for acute DVT CT angio chest revealing acute bilateral pulmonary emboli with evidence of right heart strain Home medication of warfarin 7.5 mg daily; however, INR 1.03. Patient endorses being compliant with her anticoagulation. Continue heparin drip and bridged warfarin daily until therapeutic (goal 2.53.5). TTE without evidence of right heart strain #Seizure disorder #Anxiety Continue home medications: Keppra 500 mg twice daily, Quetiapine 100 mg every morning and 300 mg nightly, alprazolam 0.5 mg 3 times daily #History of aortic dissection s/p tevar. #Hypothyroidism -resume home levothyroxine #microcytic anemia -stable Transfuse if hemoglobin less than 7 or patient become symptomatic #Morbid obesity #Weight loss counseling #Exercise counseling - BMI 39.1 - Counseled patient on the importance of weight loss, incorporating exercise, and dietary changes (lean meats, fresh fruits and vegetables, and water intake). Patient expresses understanding. #Advanced care planning -Disease education conducted, care plan discussed, diagnoses discussed, prognosis discussed, and patient acknowledges understanding with care plan -Time: +30 min History Interval history: Resting comfortably on my encounter. Able to participate with PT and does not appear to have any needs per my discussion with PT. Hospitalist Physical - Physical exam Narrative exam: GENERAL: Well-developed well-nourished. In no acute distress. but no respiratory distress CHEST/LUNGS: CTAB on room air HEART/CARDIOVASCULAR: Regular rate and rhythm. No murmur, rubs or gallops appreciated. ABDOMEN: +BS. NT/ND. SKIN: No rashes noted. : Right IJ cath in place NEURO: No focal motor deficit. MUSCULOSKELETAL: No joint effusion, WARM TO TOUGH EXTREMITIES: No cyanosis, clubbing or trace edema. PSYCH: Cooperative. - Constitutional Vitals: Temp Pulse Resp BP Pulse Ox 99.4 F 72 20 147/77 91 06/09/21 05:06 06/09/21 05:06 06/09/21 05:06 06/09/21 05:06 06/09/21 05:06 General appearance: Present: no acute distress, well-nourished HEART Score - HEART Score Troponin: Troponin T < 0.010 ng/mL (0.00-0.029) 05/30/21 04:46 Results - Labs CBC & Chem 7: 06/09/21 06:46 06/08/21 04:52 Labs: Laboratory Last Values WBC 6.1 K/mm3 (4.5-11.0) 06/09/21 06:46 RBC 3.09 M/mm3 (3.65-5.03) L 06/09/21 06:46 Hgb 6.9 gm/dl (10.1-14.3) L 06/09/21 06:46 Hct 22.4 % (30.3-42.9) L 06/09/21 06:46 MCV 72 fl (79-97) L 06/09/21 06:46 MCH 22 pg (28-32) L 06/09/21 06:46 MCHC 31 % (30-34) 06/09/21 06:46 RDW 25.0 % (13.2-15.2) H 06/09/21 06:46 Plt Count 327 K/mm3 (140-440) 06/09/21 06:46 Add Manual Diff Complete 06/05/21 11:01 Total Counted 100 06/05/21 11:01 Seg Neuts % (Manual) 94.0 % (40.0-70.0) H 06/05/21 11:01 Band Neutrophils % 0 % 06/05/21 11:01 Lymphocytes % (Manual) 3.0 % (13.4-35.0) L 06/05/21 11:01 Reactive Lymphs % (Man) 0 % 06/05/21 11:01 Monocytes % (Manual) 1.0 % (0.0-7.3) 06/05/21 11:01 Eosinophils % (Manual) 2.0 % (0.0-4.3) 06/05/21 11:01 Basophils % (Manual) 0 % (0.0-1.8) 06/05/21 11:01 Metamyelocytes % 0 % 06/05/21 11:01 Myelocytes % 0 % 06/05/21 11:01 Promyelocytes % 0 % 06/05/21 11:01 Blast Cells % 0 % 06/05/21 11:01 Nucleated RBC % Not Reportable 06/05/21 11:01 Seg Neutrophils # Man 13.2 K/mm3 (1.8-7.7) H 06/05/21 11:01 Band Neutrophils # 0.0 K/mm3 06/05/21 11:01 Lymphocytes # (Manual) 0.4 K/mm3 (1.2-5.4) L 06/05/21 11:01 Abs React Lymphs (Man) 0.0 K/mm3 06/05/21 11:01 Monocytes # (Manual) 0.1 K/mm3 (0.0-0.8) 06/05/21 11:01 Eosinophils # (Manual) 0.3 K/mm3 (0.0-0.4) 06/05/21 11:01 Basophils # (Manual) 0.0 K/mm3 (0.0-0.1) 06/05/21 11:01 Metamyelocytes # 0.0 K/mm3 06/05/21 11:01 Myelocytes # 0.0 K/mm3 06/05/21 11:01 Promyelocytes # 0.0 K/mm3 06/05/21 11:01 Blast Cells # 0.0 K/mm3 06/05/21 11:01 WBC Morphology Not Reportable 06/05/21 11:01 Hypersegmented Neuts Not Reportable 06/05/21 11:01 Hyposegmented Neuts Not Reportable 06/05/21 11:01 Hypogranular Neuts Not Reportable 06/05/21 11:01 Smudge Cells Not Reportable 06/05/21 11:01 Toxic Granulation Not Reportable 06/05/21 11:01 Toxic Vacuolation Not Reportable 06/05/21 11:01 Dohle Bodies Not Reportable 06/05/21 11:01 Pelger-Huet Anomaly Not Reportable 06/05/21 11:01 Jaime Rods Not Reportable 06/05/21 11:01 Platelet Estimate Consistent w auto 06/05/21 11:01 Clumped Platelets Not Reportable 06/05/21 11:01 Plt Clumps, EDTA Not Reportable 06/05/21 11:01 Large Platelets Not Reportable 06/05/21 11:01 Giant Platelets Not Reportable 06/05/21 11:01 Platelet Satelliting Not Reportable 06/05/21 11:01 Plt Morphology Comment Not Reportable 06/05/21 11:01 RBC Morphology Not Reportable 06/05/21 11:01 Dimorphic RBCs Not Reportable 06/05/21 11:01 Polychromasia Not Reportable 06/05/21 11:01 Hypochromasia 2+ 06/05/21 11:01 Poikilocytosis Not Reportable 06/05/21 11:01 Anisocytosis 2+ 06/05/21 11:01 Microcytosis 1+ 06/05/21 11:01 Macrocytosis Not Reportable 06/05/21 11:01 Spherocytes Not Reportable 06/05/21 11:01 Pappenheimer Bodies Not Reportable 06/05/21 11:01 Sickle Cells Not Reportable 06/05/21 11:01 Target Cells Not Reportable 06/05/21 11:01 Tear Drop Cells Not Reportable 06/05/21 11:01 Ovalocytes Not Reportable 06/05/21 11:01 Helmet Cells Not Reportable 06/05/21 11:01 Graves-Rome Bodies Not Reportable 06/05/21 11:01 [place] Rings Not Reportable 06/05/21 11:01 Tricia Cells Not Reportable 06/05/21 11:01 Bite Cells Not Reportable 06/05/21 11:01 Crenated Cell Not Reportable 06/05/21 11:01 Elliptocytes Not Reportable 06/05/21 11:01 Acanthocytes (Spur) Not Reportable 06/05/21 11:01 Rouleaux Not Reportable 06/05/21 11:01 Hemoglobin C Crystals Not Reportable 06/05/21 11:01 Schistocytes Not Reportable 06/05/21 11:01 Malaria parasites Not Reportable 06/05/21 11:01 Koffi Bodies Not Reportable 06/05/21 11:01 Hem Pathologist Commnt No 06/05/21 11:01 PT 20.4 Sec. (12.2-14.9) H 06/09/21 Unknown INR 1.54 (0.87-1.13) H 06/09/21 Unknown APTT 52.6 Sec. (24.2-36.6) H 05/31/21 06:40 Heparin Anti-Xa Level 0.49 U.I./ml (0.3-0.7) 06/07/21 12:55 Sodium 144 mmol/L (137-145) D 06/08/21 04:52 Potassium 3.6 mmol/L (3.6-5.0) 06/08/21 04:52 Chloride 116.6 mmol/L (98-107) H 06/08/21 04:52 Carbon Dioxide 18 mmol/L (22-30) L 06/08/21 04:52 Anion Gap 13 mmol/L 06/08/21 04:52 BUN 7 mg/dL (7-17) 06/08/21 04:52 Creatinine 1.1 mg/dL (0.6-1.2) D 06/08/21 04:52 Estimated GFR > 60 ml/min 06/08/21 04:52 BUN/Creatinine Ratio 6 % 06/08/21 04:52 Glucose 91 mg/dL (65-100) 06/08/21 04:52 Lactic Acid 0.70 mmol/L (0.7-2.0) 06/05/21 10:40 Calcium 7.4 mg/dL (8.4-10.2) L 06/08/21 04:52 Total Bilirubin < 0.20 mg/dL (0.1-1.2) 06/08/21 04:52 AST 12 units/L (5-40) 06/08/21 04:52 ALT 19 units/L (7-56) 06/08/21 04:52 Alkaline Phosphatase 86 units/L (35-129) 06/08/21 04:52 Troponin T < 0.010 ng/mL (0.00-0.029) 05/30/21 04:46 Total Protein 4.7 g/dL (6.3-8.2) L 06/08/21 04:52 Albumin 2.7 g/dL (3.9-5) L 06/08/21 04:52 Albumin/Globulin Ratio 1.4 % 06/08/21 04:52 Lipase 31 units/L (13-60) 05/30/21 04:41 TSH 0.034 mlU/mL (0.270-4.200) L 06/05/21 10:40 Free T4 1.29 ng/dL (0.76-1.46) 06/05/21 10:40 HCG, Qual Negative (Negative) 05/29/21 23:24 Urine Color Yellow (Yellow) 06/05/21 12:20 Urine Turbidity Slightly-cloudy (Clear) 06/05/21 12:20 Urine pH 6.0 (5.0-7.0) 06/05/21 12:20 Ur Specific [place] 1.004 (1.003-1.030) 06/05/21 12:20 Urine Protein <15 mg/dl mg/dL (Negative) 06/05/21 12:20 Urine Glucose (UA) Neg mg/dL (Negative) 06/05/21 12:20 Urine Ketones Neg mg/dL (Negative) 06/05/21 12:20 Urine Blood Mod (Negative) 06/05/21 12:20 Urine Nitrite Neg (Negative) 06/05/21 12:20 Urine Bilirubin Neg (Negative) 06/05/21 12:20 Urine Urobilinogen < 2.0 mg/dL (<2.0) 06/05/21 12:20 Ur Leukocyte Esterase Neg (Negative) 06/05/21 12:20 Urine WBC (Auto) 2.0 /HPF (0.0-6.0) 06/05/21 12:20 Urine RBC (Auto) 37.0 /HPF (0.0-6.0) 06/05/21 12:20 U Epithel Cells (Auto) 3.0 /HPF (0-13.0) 06/05/21 12:20 Urine Bacteria (Auto) 4+ /HPF (Negative) 06/05/21 12:20 Urine Mucus Few /HPF 06/05/21 12:20 Vancomycin Trough 25.1 ug/mL (5.0-20.0) H 06/08/21 04:52 Coronavirus (PCR) Negative (Negative) 06/05/21 07:26 Influenza A (Rapid) Negative (Negative) 06/05/21 14:06 Influenza A (RT-PCR) Negative (Negative) 06/05/21 14:06 Influenza B (Rapid) Negative (Negative) 06/05/21 14:06 Influenza B (RT-PCR) Negative (Negative) 06/05/21 14:06 Blood Type B POSITIVE 06/05/21 10:40 Antibody Screen Negative 06/05/21 10:40 Microbiology: Microbiology 06/07/21 15:47 Peripheral/Venous Blood Culture - Preliminary NO GROWTH AFTER 24 HOURS 06/07/21 15:47 Peripheral/Venous Blood Culture - Preliminary NO GROWTH AFTER 24 HOURS 06/04/21 07:41 Peripheral/Venous Blood Culture - Final Staphylococcus Aureus Rojas/IV: Voiding Method Bedside Commode Active Medications - Current Medications Current Medications: Generic Name Dose Route Start Last Admin Trade Name Freq PRN Reason Stop Dose Admin Albuterol 2.5 mg 05/30/21 05:14 Albuterol 2.5 Mg/3 Ml Nebu IH Q3HRT PRN Shortness Of Breath Alprazolam 0.5 mg 06/09/21 08:00 06/09/21 08:21 Alprazolam 0.5 Mg Tab PO 0.5 mg BID ELLIOTT Administration Aspirin 81 mg 05/30/21 10:00 06/08/21 09:04 Aspirin Ec 81 Mg Tab PO 81 mg QDAY ELLIOTT Administration Famotidine 20 mg 05/30/21 10:00 06/08/21 22:24 Famotidine 20 Mg Tab PO 20 mg BID ELLIOTT Administration Heparin Sodium (Porcine) 4,500 unit 06/03/21 09:46 Heparin 10,000 Units/10 Ml Vial 40 unit/kg (4500 unit) IV Q6H PRN Anti-Xa Assay < 0.1 units/ml Heparin Sodium/Sodium Chloride 25,000 unit in 500 mls @ 30 mls/hr 06/03/21 10:00 06/07/21 20:37 Heparin/ 0.45% Nacl-25,000 Unit/500 Ml IV 1,900 units/hr TITR ELLIOTT 38 mls/hr Administration Protocol 1,500 UNITS/HR Sodium Chloride 1,000 mls @ 42 mls/hr 06/06/21 15:15 06/07/21 17:02 Nacl 0.9% 1000 Ml IV 42 mls/hr DIRECT ELLIOTT Administration Cefazolin Sodium 2 gm/ Sodium 100 mls @ 200 mls/hr 06/08/21 12:00 06/09/21 05:48 Chloride IV 200 mls/hr Q6HR ELLIOTT Administration Protocol Ibuprofen 800 mg 06/05/21 08:00 06/06/21 13:37 Ibuprofen 800 Mg Tab PO 800 mg Q8H PRN Administration Fever >101 Levetiracetam 500 mg 05/30/21 10:00 06/08/21 22:24 Levetiracetam 500 Mg Tab PO 500 mg BID ELLIOTT Administration Levothyroxine Sodium 150 mcg 06/06/21 06:00 06/09/21 05:48 Levothyroxine 150 Mcg Tab PO 150 mcg DAILY@0600 ELLIOTT Administration Morphine Sulfate 2 mg 06/03/21 09:30 06/09/21 08:07 Morphine 2 Mg/1 Ml Inj IV 2 mg Q8H PRN Administration Pain, Moderate (4-6) Ondansetron HCl 4 mg 06/05/21 08:00 06/05/21 20:21 Ondansetron 4 Mg/2 Ml Inj IV 4 mg Q4H PRN Administration Nausea And Vomiting Propranolol HCl 40 mg 05/30/21 10:00 06/08/21 22:23 Propranolol 40 Mg Tab PO 40 mg BID ELLIOTT Administration Quetiapine Fumarate 100 mg 05/30/21 10:00 06/08/21 09:04 Quetiapine 100 Mg Tab PO 100 mg QAM ELLIOTT Administration Sodium Chloride 10 ml 05/30/21 10:00 06/08/21 22:25 Sodium Chloride 0.9% 10 Ml Flush Syringe IV 10 ml BID ELLIOTT Administration Sodium Chloride 10 ml 05/30/21 05:14 Sodium Chloride 0.9% 10 Ml Flush Syringe IV PRN PRN LINE FLUSH Tramadol HCl 100 mg 06/09/21 08:00 Tramadol 50 Mg Tab PO BID ELLIOTT Warfarin Sodium 10 mg 06/08/21 17:00 06/08/21 17:34 Warfarin 10 Mg Tab PO 06/09/21 16:59 10 mg ONCE@1700 NR Administration Warfarin Sodium 2.5 mg 06/08/21 17:00 06/08/21 17:34 Warfarin 2.5 Mg Tab PO 06/09/21 16:59 2.5 mg ONCE@1700 NR Administration Nutrition/Malnutrition Assess - Dietary Evaluation Nutrition/Malnutrition Findings: Nutrition Notes Start: 05/31/21 12:39 Freq: Status: Active Protocol: Document 06/07/21 18:49 JAMES (Rec: 06/07/21 19:06 JAMES [id number]) Nutrition Notes Initial or Follow up Reassessment Current Diagnosis Sepsis,Hypertension Other Pertinent Diagnosis LE DVT, Bilateral Pulmonary Thromboembolism, R-Ventricular Strain, Pericard Current Diet Cardiac Diet (since B 05/30). Labs/Tests 06/07: Na 135, CO2 20, Ca 7.8. Pertinent Medications 06/07: Levothyroxine, Warfarin 12.5 mg, others nutritionally unremarkable. Height 5 ft 7 in Weight 111 kg [place] Body Weight (kg) 61.36 BMI 38.3 Weight change and time frame No body weight change reported in 1 week. Weight Status Obese Subjective/Other Information RD consult for routine F/U on dietary advancement. Pt's PO intake of meals has been Good (75%), according to ADL notes. Pt ois on Room Air, O2 saturation @ 98%, according to Vital Signs notes. Percent of energy/protein needs met: Prescribed Cardiac Diet provides for energy/protein needs (2,230 Kcal/85 g) during LOS. Burn Absent Trauma Absent GI Symptoms None Food Allergy Yes Skin Integrity/Comment Assessment WNL. Current % PO Good (75-100%) Minimum of two criteria No Is patient on ventilator? No Is Patient Ambulatory and/or Out of Bed Yes REE-([place]-ambulatory/OOB) [ 2356.419 [id number]] Kcal/Kg value to use for calculation 16 Approximate Energy Requirements Using 1776 kcal/Kg Calculation Used for Recommendations Kcal/kg Additional Notes Protein: 0.8-1 g/Kg AdjBW; 68- 86 g/day. Fluids: 1 ml/Kcal, or as per MD. Nutrition Intervention Change Diet Order: Continue Cardiac Diet. Follow-Up By: 06/14/21 Additional Comments Continue monitoring food tolerance, %PO intake of meals , and BM.
[2021-06-09] MEDS: FAMOTIDINE 20 MG TAB PO SCH ×2 (10:22→21:04)
[2021-06-09] MEDS: ASPIRIN EC 81 MG TAB PO SCH (10:23)
[2021-06-09] MEDS: QUEtiapine 100 MG TAB PO SCH (10:23)
[2021-06-09] MEDS: levETIRAcetam 500 MG TAB PO SCH ×2 (10:23→21:04)
[2021-06-09] MEDS: traMADol 50 MG TAB PO SCH ×2 (10:24→22:55)
--- NOTE | 2021-06-09 11:05 | Progress Note ---
Assessment and Plan Cultures: 06/04/2021 blood culture: MSSA 06/05/2021 urine culture: Usual skin john 06/07/2021 blood culture: no growth A/P: 40-year-old female with hypertension, pulmonary embolism, DVT, Graves' disease, history of aortic dissection s/p TEVAR, pericarditis was admitted to the hospital with chest pain, bilateral calf swelling, CT chest angio revealed acute bilateral pulmonary thromboemboli with mild right ventricular strain and scattered pneumonitis throughout the lungs. She was admitted to the hospital on 05/29/2021. On 06/04 2021, she started spiking fevers up to 103.1 F: #Sepsis, secondary to MSSA bacteremia: Source unclear but could be related to central line related blood stream infection from a femoral TLC which was removed. TTE did not reveal any valvular vegetations. Showed mild pulmonary hypertension and mild to moderate tricuspid regurgitation. #Bilateral pulmonary embolism: On anticoagulation Recs: -f/u repeat blood cultures from 06/07/2021 -continue IV Ancef, higher dose due to morbid obesity -If bacteremia is persistent, might suggest seeding of her clots and will need longer course IV antibiotic therapy, also patient has a TEVAR, so will need a HANK Stephanie June MD, FACP, [facility] O: [phone] F: [phone] C: [phone] Subjective Date of service: 06/09/21 Principal diagnosis: Sepsis; Acute P.E.; Chest pain; H/O DVT; Seizures; Hypothyroidism; Obesity Interval history: No fever. Sitting at the edge of the bed, she is feeling well. No vomiting. Tolerating abx. Objective - Exam Narrative Exam: Physical Exam: Constitutional: Alert, cooperative. No acute distress Head, Ears, Nose: Normocephalic, atraumatic. External ears, nose normal Eyes: Conjunctivae/corneas clear. No icterus. No ptosis. Neck: Supple, no meningeal signs Cardiovascular: S1, S2 + Respiratory: Good air entry, clear to auscultation bilaterally GI: Soft, non-tender; bowel sounds normal. No peritoneal signs Musculoskeletal: No pedal edema, no cyanosis. Skin: No rash or abscess Hem/Lymphatic: No palpable cervical or supraclavicular nodes. No lymphangitis Psych: Mood ok. Affect normal Neurological: Awake, alert, oriented. No gross abnormality - Constitutional Vitals: Vital Signs Temp Pulse Resp BP Pulse Ox 99.4 F 72 20 147/77 91 06/09/21 05:06 06/09/21 05:06 06/09/21 05:06 06/09/21 05:06 06/09/21 05:06 Temperature -Last 24 Hours Temperature 99.4 F Temperature 98.8 F Temperature 98.1 F Temperature 99.4 F - Labs CBC & Chem 7: 06/09/21 06:46 06/08/21 04:52 Labs: Abnormal lab results 06/09/21 06/09/21 06/09/21 Range/Units 06:46 06:46 Unknown RBC 3.09 L (3.65-5.03) M/mm3 Hgb 6.9 L (10.1-14.3) gm/dl Hct 22.4 L (30.3-42.9) % MCV 72 L (79-97) fl MCH 22 L (28-32) pg RDW 25.0 H (13.2-15.2) % PT 20.4 H (12.2-14.9) Sec. INR 1.54 H (0.87-1.13) Heparin Anti-Xa Level < 0.10 L (0.3-0.7) U.I./ml
--- NOTE | 2021-06-09 12:39 | Progress Note ---
Assessment and Plan Sepsis MSSA Bacteremia Acute pulmonary embolism Acute chest pain History of DVT on warfarin Seizure disorder Anxiety Hypothyroidism microcytic anemia Morbid obesity Hypotension (Resolved) - trend H&H; PRBC transfusions for serum Hb < 7.0 g/dl - continue full anticoagulation for VTE for now - continue Ancef re: MSSA - follow HANK - continue care as below otherwise; - continue full anticoagulation with IV Heparin - follow H&H closely - continue vancomycin; de-escalate per ID recommendations - continue Keppra as AED - continue thyroid replacement therapy - follow clinically re: fever curves / trend WBC - supplemental oxygen to keep O2 sats > 90% - bronchodilators (ALVERTO) with pulm hygiene per RT - continue to avoid nephrotoxins, renally dose all medications - continue mobility protocols to prevent pressure ulcers - PT/OT as tolerated - Wound care per RN/WCT - continue accuchecks with glycemic control per SSI for target blood glucose < 180 mg/dL - tobacco abstinence strongly counseled at the bedside - home oxygen evaluation at discharge - prn analgesia per pain score - GI prophylaxis with Pepcid - Flu & pneumovax per protocol - Pulmonary out patient follow up for PFTs and optimization of respiratory status - life style modifications counseled re: weight loss, better medication compliance - continue other care per attending / other consultants ... re-evaluate in am & prn Subjective Date of service: 06/09/21 Principal diagnosis: Sepsis; Acute P.E.; Chest pain; H/O DVT; Seizures; Hypothyroidism; Obesity Interval history: Patient is seen today for: Sepsis; Acute pulmonary embolism; Acute chest pain; H/O DVT; Seizure disorder; Hypothyroidism; Anemia; Morbid obesity; Hypotension (Resolved); MSSA Bacteremia Seen and examined at bedside; 24hour events reviewed; nursing and respiratory care staff consulted; no adverse overnight events reported to me; resting in bed; remains on IV Heparin; no gross bleeding reported but Hb is 6.9; denies hematochezia, melena, hematuria; denies N/V/F/C Objective Vital Signs - 12hr 06/09/21 06/09/21 05:06 11:42 Temperature 99.4 F 98.9 F Pulse Rate 72 75 Respiratory 20 24 Rate Blood Pressure 147/77 137/72 O2 Sat by Pulse 91 90 Oximetry Constitutional: no acute distress, other (elderly morbidly obese female with mildly increased respiratory effort at rest) Eyes: non-icteric ENT: oropharynx moist Neck: supple, no lymphadenopathy, no JVD, other (large neck circumference; RIJ CVL) Effort: mildly labored Ascultation: Bilateral: clear, diminished breath sounds Percussion: Bilateral: not dull Cardiovascular: regular rate and rhythm Gastrointestinal: normoactive bowel sounds, soft, non-tender, other (distended but soft) Integumentary: normal Extremities: no cyanosis, no edema, pulses normal, no ischemia or petechiae Neurologic: non-focal exam (grossly), pupils equal and round, CN II-XII normal, motor strength normal and Psychiatric: anxious CBC and BMP: 06/10/21 08:31 06/10/21 08:31 ABG, PT/INR, D-dimer: PT/INR, D-dimer PT 20.4 Sec. (12.2-14.9) H 06/09/21 Unknown INR 1.54 (0.87-1.13) H 06/09/21 Unknown Abnormal lab findings: Abnormal Labs 05/29/21 05/29/21 05/29/21 23:24 23:24 23:29 WBC RBC Hgb 8.8 L Hct 28.7 L MCV 74 L MCH 23 L RDW 26.4 H Seg Neuts % (Manual) 75.0 H Lymphocytes % (Manual) Seg Neutrophils # Man Lymphocytes # (Manual) PT INR APTT 20.9 L Heparin Anti-Xa Level Sodium Chloride Carbon Dioxide 20 L Calcium Total Protein Albumin 3.5 L TSH Vancomycin Trough 05/30/21 05/30/21 05/30/21 08:25 08:25 13:35 WBC RBC Hgb 8.8 L Hct 27.5 L MCV MCH RDW Seg Neuts % (Manual) Lymphocytes % (Manual) Seg Neutrophils # Man Lymphocytes # (Manual) PT 15.4 H INR APTT 107.1 H* Heparin Anti-Xa Level 0.82 H Sodium Chloride Carbon Dioxide Calcium Total Protein Albumin TSH Vancomycin Trough 05/30/21 05/31/21 05/31/21 20:57 06:40 06:40 WBC 13.0 H RBC Hgb 8.9 L Hct 28.5 L MCV 74 L MCH 23 L RDW 25.7 H Seg Neuts % (Manual) 77.0 H Lymphocytes % (Manual) Seg Neutrophils # Man 10.0 H Lymphocytes # (Manual) PT INR APTT 52.6 H Heparin Anti-Xa Level 0.15 L 0.74 H Sodium Chloride Carbon Dioxide Calcium Total Protein Albumin TSH Vancomycin Trough 06/01/21 06/01/21 06/02/21 09:55 10:27 06:15 WBC RBC Hgb 9.4 L Hct MCV MCH RDW Seg Neuts % (Manual) Lymphocytes % (Manual) Seg Neutrophils # Man Lymphocytes # (Manual) PT INR APTT Heparin Anti-Xa Level 0.13 L 0.25 L Sodium Chloride Carbon Dioxide Calcium Total Protein Albumin TSH Vancomycin Trough 06/02/21 06/03/21 06/04/21 23:30 Unknown 07:39 WBC RBC Hgb 8.5 L Hct 28.0 L MCV MCH RDW Seg Neuts % (Manual) Lymphocytes % (Manual) Seg Neutrophils # Man Lymphocytes # (Manual) PT 15.0 H INR APTT Heparin Anti-Xa Level 0.19 L Sodium Chloride Carbon Dioxide Calcium Total Protein Albumin TSH Vancomycin Trough 06/05/21 06/05/21 06/05/21 04:07 04:07 10:40 WBC RBC Hgb 8.4 L Hct 27.3 L MCV MCH RDW Seg Neuts % (Manual) Lymphocytes % (Manual) Seg Neutrophils # Man Lymphocytes # (Manual) PT 17.7 H INR 1.30 H APTT Heparin Anti-Xa Level Sodium Chloride Carbon Dioxide Calcium Total Protein Albumin TSH 0.034 L Vancomycin Trough 06/05/21 06/05/21 06/06/21 10:40 11:01 04:00 WBC 14.0 H RBC 3.37 L Hgb 7.5 L Hct 24.8 L MCV 74 L MCH 22 L RDW 25.0 H Seg Neuts % (Manual) 94.0 H Lymphocytes % (Manual) 3.0 L Seg Neutrophils # Man 13.2 H Lymphocytes # (Manual) 0.4 L PT 17.4 H INR 1.27 H APTT Heparin Anti-Xa Level Sodium 135 L Chloride Carbon Dioxide 20 L Calcium 7.8 L Total Protein Albumin TSH Vancomycin Trough 06/07/21 06/07/21 06/08/21 12:55 12:55 04:52 WBC RBC Hgb 7.1 L Hct 23.6 L MCV MCH RDW Seg Neuts % (Manual) Lymphocytes % (Manual) Seg Neutrophils # Man Lymphocytes # (Manual) PT 19.7 H INR 1.48 H APTT Heparin Anti-Xa Level Sodium Chloride 116.6 H Carbon Dioxide 18 L Calcium 7.4 L Total Protein 4.7 L Albumin 2.7 L TSH Vancomycin Trough 06/08/21 06/09/21 06/09/21 04:52 06:46 06:46 WBC RBC 3.09 L Hgb 6.9 L Hct 22.4 L MCV 72 L MCH 22 L RDW 25.0 H Seg Neuts % (Manual) Lymphocytes % (Manual) Seg Neutrophils # Man Lymphocytes # (Manual) PT INR APTT Heparin Anti-Xa Level < 0.10 L Sodium Chloride Carbon Dioxide Calcium Total Protein Albumin TSH Vancomycin Trough 25.1 H 06/09/21 Unknown WBC RBC Hgb Hct MCV MCH RDW Seg Neuts % (Manual) Lymphocytes % (Manual) Seg Neutrophils # Man Lymphocytes # (Manual) PT 20.4 H INR 1.54 H APTT Heparin Anti-Xa Level Sodium Chloride Carbon Dioxide Calcium Total Protein Albumin TSH Vancomycin Trough Allied health notes reviewed: nursing
[2021-06-09] MEDS ORDERED: SODIUM CHLORIDE 0.9% 500 ML 500 ML IV NR (13:15)
[2021-06-09] MEDS: PROPRANOLOL 40 MG TAB PO SCH ×2 (13:29→21:44)
[2021-06-09] MEDS ORDERED: WARFARIN 2.5 MG TAB PO NR (17:00)
[2021-06-09] MEDS ORDERED: WARFARIN 10 MG TAB PO NR (17:00)
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
[2021-06-10] MEDS: SODIUM CHLORIDE 0.9% 1000 ML 1,000 ML IV SCH (00:45)
[2021-06-10] MEDS ORDERED: MORPHINE 4 MG/1 ML INJ IV NR (01:54)
[2021-06-10] MEDS: LEVOTHYROXINE 150 MCG TAB PO SCH (05:10)
[2021-06-10] MEDS: MORPHINE 2 MG/1 ML INJ IV PRN ×2 (05:10→15:11)
--- NOTE | 2021-06-10 08:41 | Progress Note ---
Assessment and Plan Assessment and plan: HPI: 40 years old female with past medical history of hypertension, PE x2, (R lung 05/2016, L lung 01/2017--on coumadin), R leg DVT 03/2017, Graves Disease, heart murmur, aortic dissection, PERICARDITIS, thyroid storm GERD was brought to the hospital because of chest pain, retrosternal, sharp, radiating to back, 10/10, worsened by deep breaths, not relieved by anything, associated with SOB. Denies palpitations, diaphoresis. Endorses bilateral leg swelling, pain in her calves. Denies recent travel, immobilization, surgery, hospitalization, Hormonal contraceptive use. In the emergency room initial CT scan of the chest shows acute bilateral pulmonary thromboemboli with evidence of mild right ventricular restaurant. Scattered pneumonitis noted throughout the both lungs.'s were going to admit the patient to the medical telemetry put the patient on IV heparin we also order echocardiogram Hospital Course: 06/05: Is unclear to me why the patient was transferred to the IMCU as I do not have any clear documentation to the results but in effect I was told by the nurse that the patient had pulled out his for her femoral line and did not have an access. Patient appears to have been having fever for a few days no known etiology we will proceed with a sepsis work-up although closely reviewing her case shows a history of thyroid storm in the past and she has not been receiving her thyroid medication while she does not have confusion at this time she does have tachycardia and tachypnea. We will give her a dose of IV levothyroxine today and start her daily dose of levothyroxine a.m. She has been on her propranolol although her home dose appears confusing as she gets 40 mg once daily and also 20 mg twice a day will discuss with her to clarify this and also with her pharmacy. She did have a right IJ triple-lumen catheter placed yesterday I discussed with her in the setting of well-documented by the nurse that she takes Midol at home which contains acetaminophen she is agreeable to trial acetaminophen as she wants to come off the cooling blanket. I also consulted ID and ordered a urinalysis with urine culture and some fluid support. I reviewed her CT scan and echocardiogram while the CT mentions the pulmonary embolism with mild right heart strain the echo shows a RVSP of 32 mmHg. 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 She continues on heparin drip while awaiting for therapeutic INR. In the meantime continue with antibiotic Right internal jugular vein triple-lumen catheter placement under ultrasound guidance 06/06: Patient seen and examined, showing some improvement, will follow cultures result, Continue abx, clinical stable, ID input, close eye on Hemoglobin. WBC mildly trended up. will transfer back to [facility]. 06/07: Continue supportive care, awaiting Cultures for ID and sensitivity in the meantime continue antibiotic. Am LABS. Patient continues on heparin drip until INR is therapeutic. I encouraged her to ambulate in her room and also set up on the chair. Cultures for COVID was negative. We will obtain PT OT evaluation. In short summary patient is a 40-year-old female with hypertension pulmonary embolism lower extremity DVT in the past on Coumadin who presented with shortness of breath diagnosed with pulmonary embolism admitted intermittently sepsis doubt septic emboli currently on antibiotics. Restarted on her thyroid medication with no evidence of thyroid storm. 06/08: resting comfortably on encounter. Afebrile today. Vital signs improved. 94% on 3L/min NC. Pain medication appears to be excessive as patient is heavily sedated, will scale back pain medication. D/w cardiology Dr Canseco regarding con cern for endocarditis and possible infected TEVAR graft as potential source of infection. Consult placed for HANK. Will continue to follow culture data. Continue IV vancomycin per ID direction. INR remains subtherapeutic for treatment of DVT/PE but increased to 1.48, will continue warfarin at current dosage and heparin gtt at this time. 06/09: continue therapy for MSSA bacteremia. Awaiting HANK completion. INR 1.54, warfarin 12.5 mg dose given today. Anemic today 6.9, ordered 1 unit prbc. Patient denies any rectal bleeding, bleeding from lines, hematemesis. Suspect anemia of chronic disease and possibly iatrogenic induced from multiple blood draw/line placement attempts. Lower suspicion for occult hematoma but will order CTAP. 06/10: Assessment and Plan: #Sepsis, MSSA bacteremia -patient with Tmax of 102, tachycardic. Etiology unclear, line infection vs endocarditis, infected TEVAR graft. -patient with R femoral central line, ordered to be removed -06/04 bcx: 3/4 bottles MSSA - 06/07 bcx: NGTD - urine culture: NGTD -vancomycin IV, may need extended abx if bacteremia persists -TTE negative for valvular vegetations - ID following - cardiology consulted for HANK. #Hypotension (resolved) -Patient with low blood pressure at night -IVF started -avoid antihypotensives -labetalol currently held #Acute pulmonary embolism #Acute chest pain #History of DVT on warfarin Troponin unremarkable, chest x-ray unremarkable, bilateral lower extremity venous Dopplers unremarkable for acute DVT CT angio chest revealing acute bilateral pulmonary emboli with evidence of right heart strain Home medication of warfarin 7.5 mg daily; however, INR 1.03. Patient endorses being compliant with her anticoagulation. Continue heparin drip and bridged warfarin daily until therapeutic (goal 2.53.5). TTE without evidence of right heart strain #Seizure disorder #Anxiety Continue home medications: Keppra 500 mg twice daily, Quetiapine 100 mg every morning and 300 mg nightly, alprazolam 0.5 mg 3 times daily #History of aortic dissection s/p tevar. #Hypothyroidism -resume home levothyroxine #microcytic anemia -stable Transfuse if hemoglobin less than 7 or patient become symptomatic #Morbid obesity #Weight loss counseling #Exercise counseling - BMI 39.1 - Counseled patient on the importance of weight loss, incorporating exercise, and dietary changes (lean meats, fresh fruits and vegetables, and water intake). Patient expresses understanding. #Advanced care planning -Disease education conducted, care plan discussed, diagnoses discussed, prognosis discussed, and patient acknowledges understanding with care plan -Time: +30 min Hospitalist Physical - Physical exam Narrative exam: GENERAL: Well-developed well-nourished. In no acute distress. but no respiratory distress CHEST/LUNGS: CTAB on room air HEART/CARDIOVASCULAR: Regular rate and rhythm. No murmur, rubs or gallops appreciated. ABDOMEN: +BS. NT/ND. SKIN: No rashes noted. : Right IJ cath in place NEURO: No focal motor deficit. MUSCULOSKELETAL: No joint effusion, WARM TO TOUGH EXTREMITIES: No cyanosis, clubbing or trace edema. PSYCH: Cooperative. - Constitutional Vitals: Temp Pulse Resp BP Pulse Ox 98.9 F 59 L 16 145/98 94 06/10/21 04:38 06/10/21 04:38 06/10/21 07:20 06/10/21 04:38 06/10/21 07:20 General appearance: Present: no acute distress, well-nourished HEART Score - HEART Score Troponin: Troponin T < 0.010 ng/mL (0.00-0.029) 05/30/21 04:46 Results - Labs CBC & Chem 7: 06/09/21 06:46 06/08/21 04:52 Labs: Laboratory Last Values WBC 6.1 K/mm3 (4.5-11.0) 06/09/21 06:46 RBC 3.09 M/mm3 (3.65-5.03) L 06/09/21 06:46 Hgb 6.9 gm/dl (10.1-14.3) L 06/09/21 06:46 Hct 22.4 % (30.3-42.9) L 06/09/21 06:46 MCV 72 fl (79-97) L 06/09/21 06:46 MCH 22 pg (28-32) L 06/09/21 06:46 MCHC 31 % (30-34) 06/09/21 06:46 RDW 25.0 % (13.2-15.2) H 06/09/21 06:46 Plt Count 327 K/mm3 (140-440) 06/09/21 06:46 Add Manual Diff Complete 06/05/21 11:01 Total Counted 100 06/05/21 11:01 Seg Neuts % (Manual) 94.0 % (40.0-70.0) H 06/05/21 11:01 Band Neutrophils % 0 % 06/05/21 11:01 Lymphocytes % (Manual) 3.0 % (13.4-35.0) L 06/05/21 11:01 Reactive Lymphs % (Man) 0 % 06/05/21 11:01 Monocytes % (Manual) 1.0 % (0.0-7.3) 06/05/21 11:01 Eosinophils % (Manual) 2.0 % (0.0-4.3) 06/05/21 11:01 Basophils % (Manual) 0 % (0.0-1.8) 06/05/21 11:01 Metamyelocytes % 0 % 06/05/21 11:01 Myelocytes % 0 % 06/05/21 11:01 Promyelocytes % 0 % 06/05/21 11:01 Blast Cells % 0 % 06/05/21 11:01 Nucleated RBC % Not Reportable 06/05/21 11:01 Seg Neutrophils # Man 13.2 K/mm3 (1.8-7.7) H 06/05/21 11:01 Band Neutrophils # 0.0 K/mm3 06/05/21 11:01 Lymphocytes # (Manual) 0.4 K/mm3 (1.2-5.4) L 06/05/21 11:01 Abs React Lymphs (Man) 0.0 K/mm3 06/05/21 11:01 Monocytes # (Manual) 0.1 K/mm3 (0.0-0.8) 06/05/21 11:01 Eosinophils # (Manual) 0.3 K/mm3 (0.0-0.4) 06/05/21 11:01 Basophils # (Manual) 0.0 K/mm3 (0.0-0.1) 06/05/21 11:01 Metamyelocytes # 0.0 K/mm3 06/05/21 11:01 Myelocytes # 0.0 K/mm3 06/05/21 11:01 Promyelocytes # 0.0 K/mm3 06/05/21 11:01 Blast Cells # 0.0 K/mm3 06/05/21 11:01 WBC Morphology Not Reportable 06/05/21 11:01 Hypersegmented Neuts Not Reportable 06/05/21 11:01 Hyposegmented Neuts Not Reportable 06/05/21 11:01 Hypogranular Neuts Not Reportable 06/05/21 11:01 Smudge Cells Not Reportable 06/05/21 11:01 Toxic Granulation Not Reportable 06/05/21 11:01 Toxic Vacuolation Not Reportable 06/05/21 11:01 Dohle Bodies Not Reportable 06/05/21 11:01 Pelger-Huet Anomaly Not Reportable 06/05/21 11:01 Jaime Rods Not Reportable 06/05/21 11:01 Platelet Estimate Consistent w auto 06/05/21 11:01 Clumped Platelets Not Reportable 06/05/21 11:01 Plt Clumps, EDTA Not Reportable 06/05/21 11:01 Large Platelets Not Reportable 06/05/21 11:01 Giant Platelets Not Reportable 06/05/21 11:01 Platelet Satelliting Not Reportable 06/05/21 11:01 Plt Morphology Comment Not Reportable 06/05/21 11:01 RBC Morphology Not Reportable 06/05/21 11:01 Dimorphic RBCs Not Reportable 06/05/21 11:01 Polychromasia Not Reportable 06/05/21 11:01 Hypochromasia 2+ 06/05/21 11:01 Poikilocytosis Not Reportable 06/05/21 11:01 Anisocytosis 2+ 06/05/21 11:01 Microcytosis 1+ 06/05/21 11:01 Macrocytosis Not Reportable 06/05/21 11:01 Spherocytes Not Reportable 06/05/21 11:01 Pappenheimer Bodies Not Reportable 06/05/21 11:01 Sickle Cells Not Reportable 06/05/21 11:01 Target Cells Not Reportable 06/05/21 11:01 Tear Drop Cells Not Reportable 06/05/21 11:01 Ovalocytes Not Reportable 06/05/21 11:01 Helmet Cells Not Reportable 06/05/21 11:01 [place] Bodies Not Reportable 06/05/21 11:01 [place] Rings Not Reportable 06/05/21 11:01 Tricia Cells Not Reportable 06/05/21 11:01 Bite Cells Not Reportable 06/05/21 11:01 Crenated Cell Not Reportable 06/05/21 11:01 Elliptocytes Not Reportable 06/05/21 11:01 Acanthocytes (Spur) Not Reportable 06/05/21 11:01 Rouleaux Not Reportable 06/05/21 11:01 Hemoglobin C Crystals Not Reportable 06/05/21 11:01 Schistocytes Not Reportable 06/05/21 11:01 Malaria parasites Not Reportable 06/05/21 11:01 [place] Bodies Not Reportable 06/05/21 11:01 Hem Pathologist Commnt No 06/05/21 11:01 PT 20.4 Sec. (12.2-14.9) H 06/09/21 Unknown INR 1.54 (0.87-1.13) H 06/09/21 Unknown APTT 52.6 Sec. (24.2-36.6) H 05/31/21 06:40 Heparin Anti-Xa Level < 0.10 U.I./ml (0.3-0.7) L 06/09/21 06:46 Sodium 144 mmol/L (137-145) D 06/08/21 04:52 Potassium 3.6 mmol/L (3.6-5.0) 06/08/21 04:52 Chloride 116.6 mmol/L (98-107) H 06/08/21 04:52 Carbon Dioxide 18 mmol/L (22-30) L 06/08/21 04:52 Anion Gap 13 mmol/L 06/08/21 04:52 BUN 7 mg/dL (7-17) 06/08/21 04:52 Creatinine 1.1 mg/dL (0.6-1.2) D 06/08/21 04:52 Estimated GFR > 60 ml/min 06/08/21 04:52 BUN/Creatinine Ratio 6 % 06/08/21 04:52 Glucose 91 mg/dL (65-100) 06/08/21 04:52 Lactic Acid 0.70 mmol/L (0.7-2.0) 06/05/21 10:40 Calcium 7.4 mg/dL (8.4-10.2) L 06/08/21 04:52 Total Bilirubin < 0.20 mg/dL (0.1-1.2) 06/08/21 04:52 AST 12 units/L (5-40) 06/08/21 04:52 ALT 19 units/L (7-56) 06/08/21 04:52 Alkaline Phosphatase 86 units/L (35-129) 06/08/21 04:52 Troponin T < 0.010 ng/mL (0.00-0.029) 05/30/21 04:46 Total Protein 4.7 g/dL (6.3-8.2) L 06/08/21 04:52 Albumin 2.7 g/dL (3.9-5) L 06/08/21 04:52 Albumin/Globulin Ratio 1.4 % 06/08/21 04:52 Lipase 31 units/L (13-60) 05/30/21 04:41 TSH 0.034 mlU/mL (0.270-4.200) L 06/05/21 10:40 Free T4 1.29 ng/dL (0.76-1.46) 06/05/21 10:40 HCG, Qual Negative (Negative) 05/29/21 23:24 Urine Color Yellow (Yellow) 06/05/21 12:20 Urine Turbidity Slightly-cloudy (Clear) 06/05/21 12:20 Urine pH 6.0 (5.0-7.0) 06/05/21 12:20 Ur Specific [place] 1.004 (1.003-1.030) 06/05/21 12:20 Urine Protein <15 mg/dl mg/dL (Negative) 06/05/21 12:20 Urine Glucose (UA) Neg mg/dL (Negative) 06/05/21 12:20 Urine Ketones Neg mg/dL (Negative) 06/05/21 12:20 Urine Blood Mod (Negative) 06/05/21 12:20 Urine Nitrite Neg (Negative) 06/05/21 12:20 Urine Bilirubin Neg (Negative) 06/05/21 12:20 Urine Urobilinogen < 2.0 mg/dL (<2.0) 06/05/21 12:20 Ur Leukocyte Esterase Neg (Negative) 06/05/21 12:20 Urine WBC (Auto) 2.0 /HPF (0.0-6.0) 06/05/21 12:20 Urine RBC (Auto) 37.0 /HPF (0.0-6.0) 06/05/21 12:20 U Epithel Cells (Auto) 3.0 /HPF (0-13.0) 06/05/21 12:20 Urine Bacteria (Auto) 4+ /HPF (Negative) 06/05/21 12:20 Urine Mucus Few /HPF 06/05/21 12:20 Vancomycin Trough 25.1 ug/mL (5.0-20.0) H 06/08/21 04:52 Coronavirus (PCR) Negative (Negative) 06/05/21 07:26 Influenza A (Rapid) Negative (Negative) 06/05/21 14:06 Influenza A (RT-PCR) Negative (Negative) 06/05/21 14:06 Influenza B (Rapid) Negative (Negative) 06/05/21 14:06 Influenza B (RT-PCR) Negative (Negative) 06/05/21 14:06 Blood Type B POSITIVE 06/05/21 10:40 Antibody Screen Negative 06/05/21 10:40 Microbiology: Microbiology 06/07/21 15:47 Peripheral/Venous Blood Culture - Preliminary NO GROWTH AFTER 48 HOURS 06/07/21 15:47 Peripheral/Venous Blood Culture - Preliminary NO GROWTH AFTER 48 HOURS Rojas/IV: Voiding Method Bedside Commode Active Medications - Current Medications Current Medications: Generic Name Dose Route Start Last Admin Trade Name Freq PRN Reason Stop Dose Admin Albuterol 2.5 mg 05/30/21 05:14 Albuterol 2.5 Mg/3 Ml Nebu IH Q3HRT PRN Shortness Of Breath Alprazolam 0.5 mg 06/09/21 08:00 06/09/21 21:03 Alprazolam 0.5 Mg Tab PO 0.5 mg BID ELLIOTT Administration Aspirin 81 mg 05/30/21 10:00 06/09/21 10:23 Aspirin Ec 81 Mg Tab PO 81 mg QDAY ELLIOTT Administration Famotidine 20 mg 05/30/21 10:00 06/09/21 21:04 Famotidine 20 Mg Tab PO 20 mg BID ELLIOTT Administration Heparin Sodium (Porcine) 4,500 unit 06/03/21 09:46 Heparin 10,000 Units/10 Ml Vial 40 unit/kg (4500 unit) IV Q6H PRN Anti-Xa Assay < 0.1 units/ml Heparin Sodium/Sodium Chloride 25,000 unit in 500 mls @ 30 mls/hr 06/03/21 10:00 06/07/21 20:37 Heparin/ 0.45% Nacl-25,000 Unit/500 Ml IV 1,900 units/hr TITR ELLIOTT 38 mls/hr Administration Protocol 1,500 UNITS/HR Cefazolin Sodium 2 gm/ Sodium 100 mls @ 200 mls/hr 06/08/21 12:00 06/10/21 05:08 Chloride IV 200 mls/hr Q6HR ELLIOTT Administration Protocol Sodium Chloride 500 mls @ 0 mls/hr 06/09/21 13:15 Nacl 0.9% 500 Ml IV 06/10/21 13:14 ONCE NR As Directed Ibuprofen 800 mg 06/05/21 08:00 06/06/21 13:37 Ibuprofen 800 Mg Tab PO 800 mg Q8H PRN Administration Fever >101 Levetiracetam 500 mg 05/30/21 10:00 06/09/21 21:04 Levetiracetam 500 Mg Tab PO 500 mg BID ELLIOTT Administration Levothyroxine Sodium 150 mcg 06/06/21 06:00 06/10/21 05:10 Levothyroxine 150 Mcg Tab PO 150 mcg DAILY@0600 ELLIOTT Administration Morphine Sulfate 2 mg 06/03/21 09:30 06/10/21 05:10 Morphine 2 Mg/1 Ml Inj IV 2 mg Q8H PRN Administration Pain, Moderate (4-6) Ondansetron HCl 4 mg 06/05/21 08:00 06/05/21 20:21 Ondansetron 4 Mg/2 Ml Inj IV 4 mg Q4H PRN Administration Nausea And Vomiting Propranolol HCl 40 mg 05/30/21 10:00 06/09/21 21:44 Propranolol 40 Mg Tab PO 40 mg BID ELLIOTT Administration Quetiapine Fumarate 100 mg 05/30/21 10:00 06/09/21 10:23 Quetiapine 100 Mg Tab PO 100 mg QAM ELLIOTT Administration Sodium Chloride 10 ml 05/30/21 10:00 06/09/21 21:05 Sodium Chloride 0.9% 10 Ml Flush Syringe IV 10 ml BID ELLIOTT Administration Sodium Chloride 10 ml 05/30/21 05:14 Sodium Chloride 0.9% 10 Ml Flush Syringe IV PRN PRN LINE FLUSH Tramadol HCl 100 mg 06/09/21 08:00 06/09/21 22:55 Tramadol 50 Mg Tab PO 100 mg BID ELLIOTT Administration Warfarin Sodium 10 mg 06/09/21 17:00 Warfarin 10 Mg Tab PO 06/10/21 16:59 ONCE@1700 NR Warfarin Sodium 2.5 mg 06/09/21 17:00 Warfarin 2.5 Mg Tab PO 06/10/21 16:59 ONCE@1700 NR Nutrition/Malnutrition Assess - Dietary Evaluation Nutrition/Malnutrition Findings: Nutrition Notes Start: 05/31/21 12:39 Freq: Status: Active Protocol: Document 06/07/21 18:49 JAMES (Rec: 06/07/21 19:06 JAMES [id number]) Nutrition Notes Initial or Follow up Reassessment Current Diagnosis Sepsis,Hypertension Other Pertinent Diagnosis LE DVT, Bilateral Pulmonary Thromboembolism, R-Ventricular Strain, Pericard Current Diet Cardiac Diet (since B 05/30). Labs/Tests 06/07: Na 135, CO2 20, Ca 7.8. Pertinent Medications 06/07: Levothyroxine, Warfarin 12.5 mg, others nutritionally unremarkable. Height 5 ft 7 in Weight 111 kg [place] Body Weight (kg) 61.36 BMI 38.3 Weight change and time frame No body weight change reported in 1 week. Weight Status Obese Subjective/Other Information RD consult for routine F/U on dietary advancement. Pt's PO intake of meals has been Good (75%), according to ADL notes. Pt ois on Room Air, O2 saturation @ 98%, according to Vital Signs notes. Percent of energy/protein needs met: Prescribed Cardiac Diet provides for energy/protein needs (2,230 Kcal/85 g) during LOS. Burn Absent Trauma Absent GI Symptoms None Food Allergy Yes Skin Integrity/Comment Assessment WNL. Current % PO Good (75-100%) Minimum of two criteria No Is patient on ventilator? No Is Patient Ambulatory and/or Out of Bed Yes REE-([place]-St. Jeor-ambulatory/OOB) [ 2356.419 [id number]] Kcal/Kg value to use for calculation 16 Approximate Energy Requirements Using 1776 kcal/Kg Calculation Used for Recommendations Kcal/kg Additional Notes Protein: 0.8-1 g/Kg AdjBW; 68- 86 g/day. Fluids: 1 ml/Kcal, or as per MD. Nutrition Intervention Change Diet Order: Continue Cardiac Diet. Follow-Up By: 06/14/21 Additional Comments Continue monitoring food tolerance, %PO intake of meals , and BM.
[2021-06-10] MEDS ORDERED: BENZOCAINE 20% TOP SPRAY 0.5 ML UNIT DOSE MM NR (09:00)
[2021-06-10 09:11] LABS: Alanine Aminotransferase 9 units/L (7-56); Albumin 3.2 g/dL (3.9-5); BUN/Creatinine Ratio 6; Blood Urea Nitrogen 9 mg/dL (7-17); Calcium 8.5 mg/dL (8.4-10.2); Hemolysis Index 0
[2021-06-10 09:18] LABS: Hematocrit 22.9 % (30.3-42.9); Hemoglobin 7.1 gm/dl (10.1-14.3); Mean Corpuscular HGB Conc 31 % (30-34); Mean Corpuscular Volume 72 fl (79-97); Platelet Count 351 K/mm3 (140-440); Red Blood Count 3.17 M/mm3 (3.65-5.03)
[2021-06-10 09:22] LABS: Red Cell Distribution Width 25.5 % (13.2-15.2)
[2021-06-10 10:14] LABS: INR 1.29 (0.87-1.13)
--- NOTE | 2021-06-10 10:21 | Progress Note ---
Assessment and Plan Sepsis MSSA Bacteremia Acute pulmonary embolism Acute chest pain History of DVT on warfarin Seizure disorder Anxiety Hypothyroidism microcytic anemia Morbid obesity Hypotension (Resolved) - transitioned to Warfarin; target INR 2.0 to 3.0 - continue to trend H&H prn - PRBC transfusions for serum Hb < 7.0 g/dl - continue Ancef re: MSSA - follow HANK - continue care as below otherwise; - continue full anticoagulation with IV Heparin - follow H&H closely - continue vancomycin; de-escalate per ID recommendations - continue Keppra as AED - continue thyroid replacement therapy - follow clinically re: fever curves / trend WBC - supplemental oxygen to keep O2 sats > 90% - bronchodilators (ALVERTO) with pulm hygiene per RT - continue to avoid nephrotoxins, renally dose all medications - continue mobility protocols to prevent pressure ulcers - PT/OT as tolerated - Wound care per RN/WCT - continue accuchecks with glycemic control per SSI for target blood glucose < 180 mg/dL - tobacco abstinence strongly counseled at the bedside - home oxygen evaluation at discharge - prn analgesia per pain score - GI prophylaxis with Pepcid - Flu & pneumovax per protocol - Pulmonary out patient follow up for PFTs and optimization of respiratory status - life style modifications counseled re: weight loss, better medication compliance - continue other care per attending / other consultants ... re-evaluate in am & prn Subjective Date of service: 06/10/21 Principal diagnosis: Sepsis; Acute P.E.; Chest pain; H/O DVT; Seizures; Hypothyroidism; Obesity Interval history: Patient is seen today for: Sepsis; Acute pulmonary embolism; Acute chest pain; H/O DVT; Seizure disorder; Hypothyroidism; Anemia; Morbid obesity; Hypotension (Resolved); MSSA Bacteremia Seen and examined at bedside; 24hour events reviewed; nursing and respiratory care staff consulted; no adverse overnight events reported to me; resting in bed; resting peacefully in bed; transitioned to Warfarin for exterminator anticoagulation; no gross bleeding Objective Vital Signs - 12hr 06/10/21 06/10/21 06/10/21 00:00 00:17 04:38 Temperature 98.8 F 98.9 F Pulse Rate 75 70 59 L Respiratory 18 16 Rate Blood Pressure 145/64 145/98 O2 Sat by Pulse 92 92 Oximetry 06/10/21 07:20 Temperature Pulse Rate Respiratory 16 Rate Blood Pressure O2 Sat by Pulse 94 Oximetry Constitutional: no acute distress, other (elderly morbidly obese female with mildly increased respiratory effort at rest) Eyes: non-icteric ENT: oropharynx moist Neck: supple, no lymphadenopathy, no JVD, other (large neck circumference; RIJ CVL) Effort: mildly labored Ascultation: Bilateral: clear, diminished breath sounds Percussion: Bilateral: not dull Cardiovascular: regular rate and rhythm Gastrointestinal: normoactive bowel sounds, soft, non-tender, other (distended but soft) Integumentary: normal Extremities: no cyanosis, no edema, pulses normal, no ischemia or petechiae Neurologic: non-focal exam (grossly), pupils equal and round, CN II-XII normal, motor strength normal and Psychiatric: mood appropriate, affect normal CBC and BMP: 06/10/21 08:31 06/10/21 08:31 ABG, PT/INR, D-dimer: PT/INR, D-dimer PT 17.6 Sec. (12.2-14.9) H 06/10/21 08:31 INR 1.29 (0.87-1.13) H 06/10/21 08:31 Abnormal lab findings: Abnormal Labs 05/29/21 05/29/21 05/29/21 23:24 23:24 23:29 WBC RBC Hgb 8.8 L Hct 28.7 L MCV 74 L MCH 23 L RDW 26.4 H Seg Neuts % (Manual) 75.0 H Lymphocytes % (Manual) Seg Neutrophils # Man Lymphocytes # (Manual) PT INR APTT 20.9 L Heparin Anti-Xa Level Sodium Chloride Carbon Dioxide 20 L Creatinine Calcium Total Protein Albumin 3.5 L TSH Vancomycin Trough Crossmatch 05/30/21 05/30/21 05/30/21 08:25 08:25 13:35 WBC RBC Hgb 8.8 L Hct 27.5 L MCV MCH RDW Seg Neuts % (Manual) Lymphocytes % (Manual) Seg Neutrophils # Man Lymphocytes # (Manual) PT 15.4 H INR APTT 107.1 H* Heparin Anti-Xa Level 0.82 H Sodium Chloride Carbon Dioxide Creatinine Calcium Total Protein Albumin TSH Vancomycin Trough Crossmatch 05/30/21 05/31/21 05/31/21 20:57 06:40 06:40 WBC 13.0 H RBC Hgb 8.9 L Hct 28.5 L MCV 74 L MCH 23 L RDW 25.7 H Seg Neuts % (Manual) 77.0 H Lymphocytes % (Manual) Seg Neutrophils # Man 10.0 H Lymphocytes # (Manual) PT INR APTT 52.6 H Heparin Anti-Xa Level 0.15 L 0.74 H Sodium Chloride Carbon Dioxide Creatinine Calcium Total Protein Albumin TSH Vancomycin Trough Crossmatch 06/01/21 06/01/21 06/02/21 09:55 10:27 06:15 WBC RBC Hgb 9.4 L Hct MCV MCH RDW Seg Neuts % (Manual) Lymphocytes % (Manual) Seg Neutrophils # Man Lymphocytes # (Manual) PT INR APTT Heparin Anti-Xa Level 0.13 L 0.25 L Sodium Chloride Carbon Dioxide Creatinine Calcium Total Protein Albumin TSH Vancomycin Trough Crossmatch 06/02/21 06/03/21 06/04/21 23:30 Unknown 07:39 WBC RBC Hgb 8.5 L Hct 28.0 L MCV MCH RDW Seg Neuts % (Manual) Lymphocytes % (Manual) Seg Neutrophils # Man Lymphocytes # (Manual) PT 15.0 H INR APTT Heparin Anti-Xa Level 0.19 L Sodium Chloride Carbon Dioxide Creatinine Calcium Total Protein Albumin TSH Vancomycin Trough Crossmatch 06/05/21 06/05/21 06/05/21 04:07 04:07 10:40 WBC RBC Hgb 8.4 L Hct 27.3 L MCV MCH RDW Seg Neuts % (Manual) Lymphocytes % (Manual) Seg Neutrophils # Man Lymphocytes # (Manual) PT 17.7 H INR 1.30 H APTT Heparin Anti-Xa Level Sodium Chloride Carbon Dioxide Creatinine Calcium Total Protein Albumin TSH 0.034 L Vancomycin Trough Crossmatch 06/05/21 06/05/21 06/06/21 10:40 11:01 04:00 WBC 14.0 H RBC 3.37 L Hgb 7.5 L Hct 24.8 L MCV 74 L MCH 22 L RDW 25.0 H Seg Neuts % (Manual) 94.0 H Lymphocytes % (Manual) 3.0 L Seg Neutrophils # Man 13.2 H Lymphocytes # (Manual) 0.4 L PT 17.4 H INR 1.27 H APTT Heparin Anti-Xa Level Sodium 135 L Chloride Carbon Dioxide 20 L Creatinine Calcium 7.8 L Total Protein Albumin TSH Vancomycin Trough Crossmatch 06/07/21 06/07/21 06/08/21 12:55 12:55 04:52 WBC RBC Hgb 7.1 L Hct 23.6 L MCV MCH RDW Seg Neuts % (Manual) Lymphocytes % (Manual) Seg Neutrophils # Man Lymphocytes # (Manual) PT 19.7 H INR 1.48 H APTT Heparin Anti-Xa Level Sodium Chloride 116.6 H Carbon Dioxide 18 L Creatinine Calcium 7.4 L Total Protein 4.7 L Albumin 2.7 L TSH Vancomycin Trough Crossmatch 06/08/21 06/09/21 06/09/21 04:52 06:46 06:46 WBC RBC 3.09 L Hgb 6.9 L Hct 22.4 L MCV 72 L MCH 22 L RDW 25.0 H Seg Neuts % (Manual) Lymphocytes % (Manual) Seg Neutrophils # Man Lymphocytes # (Manual) PT INR APTT Heparin Anti-Xa Level < 0.10 L Sodium Chloride Carbon Dioxide Creatinine Calcium Total Protein Albumin TSH Vancomycin Trough 25.1 H Crossmatch 06/09/21 06/10/21 06/10/21 Unknown 08:31 08:31 WBC RBC 3.17 L Hgb 7.1 L Hct 22.9 L MCV 72 L MCH 22 L RDW 25.5 H Seg Neuts % (Manual) Lymphocytes % (Manual) Seg Neutrophils # Man Lymphocytes # (Manual) PT 20.4 H 17.6 H INR 1.54 H 1.29 H APTT Heparin Anti-Xa Level Sodium Chloride Carbon Dioxide Creatinine Calcium Total Protein Albumin TSH Vancomycin Trough Crossmatch 06/10/21 06/10/21 08:31 08:33 WBC RBC Hgb Hct MCV MCH RDW Seg Neuts % (Manual) Lymphocytes % (Manual) Seg Neutrophils # Man Lymphocytes # (Manual) PT INR APTT Heparin Anti-Xa Level Sodium Chloride 111.3 H Carbon Dioxide 21 L Creatinine 1.4 H Calcium Total Protein 5.7 L D Albumin 3.2 L TSH Vancomycin Trough Crossmatch See Detail Allied health notes reviewed: nursing
[2021-06-10 10:39] LABS: Band Neutrophils # (Manual) 0.1 K/mm3; Total Cells Counted 100
[2021-06-10 10:40] LABS: Anisocytosis 2+; Poikilocytosis 2+
[2021-06-10] MEDS: PROPRANOLOL 40 MG TAB PO SCH ×2 (10:40→22:00)
[2021-06-10 10:41] LABS: Ovalocytes 1+; Platelet Estimate Consistent w Auto; Spherocytes 1+; Target Cells 1+
[2021-06-10] MEDS: traMADol 50 MG TAB PO SCH ×2 (10:41→22:00)
[2021-06-10] MEDS: QUEtiapine 100 MG TAB PO SCH (10:41)
[2021-06-10] MEDS: ALPRAZolam 0.5 MG TAB PO SCH ×2 (10:41→22:00)
[2021-06-10] MEDS: ASPIRIN EC 81 MG TAB PO SCH (10:41)
[2021-06-10] MEDS: levETIRAcetam 500 MG TAB PO SCH ×2 (10:42→22:00)
[2021-06-10] MEDS: FAMOTIDINE 20 MG TAB PO SCH ×2 (10:42→22:00)
[2021-06-10] MEDS: ONDANSETRON 4 MG/2 ML INJ IV PRN (10:46)
[2021-06-10] MEDS ORDERED: propofoL 200 MG/20 ML VIAL IV ONE ×2 (11:59)
[2021-06-10] MEDS ORDERED: fentaNYL 100 MCG/2 ML INJ ONE (11:59)
[2021-06-10] MEDS ORDERED: LIDOCAINE PF 100 MG/5 ML (CARDIAC SYRINGE) IV ONE (12:00)
--- NOTE | 2021-06-10 12:01 | Anesthesia Day of Surgery ---
Anesthesia Day of Surgery - Day of Surgery Patient Examined: Yes Patient H&P Reviewed: Yes Patient is NPO: Yes
--- NOTE | 2021-06-10 12:05 | Anesthesia Consultation ---
Anesthesia Consult and Med Hx Date of service: 06/10/21 - Airway Anesthetic Teeth Evaluation: Good ROM Head & Neck: Adequate Mental/Hyoid Distance: Adequate Mallampati Class: Class III Intubation Access Assessment: Probably Good - Pre-Operative Health Status ASA Pre-Surgery Classification: ASA4 Proposed Anesthetic Plan: MAC (GA if needed) - Pulmonary Hx Smoking: Yes Hx Asthma: No COPD: No Hx Pneumonia: No - Cardiovascular System Hx Hypertension: Yes Hx Heart Attack/AMI: (normal stress 10-31-16, normal perfusion scan May 2017) Hx Pacemaker: No Hx Internal Defibrillator: No Hx Peripheral Vascular Disease: Yes (DVT and PE on coumadin. S/P Aortic dissection TVAR) - Central Nervous System Hx Seizures: Yes (BUT PT DENIES) Hx Psychiatric Problems: Yes (Anxiety) - Gastrointestinal Hx Gastroesophageal Reflux Disease: No - Endocrine Hx End Stage Renal Disease: No Hx Thyroid Disease: Yes Hx Hypothyroidism: Yes Hx Hyperthyroidism: Yes (Had thyroid storm) - Hematic Hx Sickle Cell Disease: No - Other Systems Hx Cancer: (DENIES) Hx Obesity: Yes - Additional Comments Anesthesia Medical History Comments: Sepsis. MSSA Bacteremia. Acute pulmonary embolism. Acute chest pain. History of DVT on warfarin. Seizure disorder. Anxiety. Hypothyroidism. microcytic anemia. Morbid obesity. Hypotension (Resolved)
--- NOTE | 2021-06-10 12:20 | Event Note ---
Date: 06/10/21 Off the floor. Recs: -Repeat blood cultures are negative, okay to insert PICC line -Although her bacteremia cleared quickly and was related to her femoral central line which was removed, due to her indwelling TEVAR, would recommend treating with IV Ancef for 6 weeks ending 07/19/2021 - orders placed to help arrange IV abx
[2021-06-10 12:48] LABS: ANA Screen, IFA Negative (Negative)
--- NOTE | 2021-06-10 15:00 | Progress Note ---
Assessment and Plan Assessment and plan: HPI: 40 years old female with past medical history of hypertension, PE x2, (R lung 05/2016, L lung 01/2017--on coumadin), R leg DVT 03/2017, Graves Disease, heart murmur, aortic dissection, PERICARDITIS, thyroid storm GERD was brought to the hospital because of chest pain, retrosternal, sharp, radiating to back, 10/10, worsened by deep breaths, not relieved by anything, associated with SOB. Denies palpitations, diaphoresis. Endorses bilateral leg swelling, pain in her calves. Denies recent travel, immobilization, surgery, hospitalization, Hormonal contraceptive use. In the emergency room initial CT scan of the chest shows acute bilateral pulmonary thromboemboli with evidence of mild right ventricular restaurant. Scattered pneumonitis noted throughout the both lungs.'s were going to admit the patient to the medical telemetry put the patient on IV heparin we also order echocardiogram Hospital Course: 06/05: Is unclear to me why the patient was transferred to the IMCU as I do not have any clear documentation to the results but in effect I was told by the nurse that the patient had pulled out his for her femoral line and did not have an access. Patient appears to have been having fever for a few days no known etiology we will proceed with a sepsis work-up although closely reviewing her case shows a history of thyroid storm in the past and she has not been receiving her thyroid medication while she does not have confusion at this time she does have tachycardia and tachypnea. We will give her a dose of IV levothyroxine today and start her daily dose of levothyroxine a.m. She has been on her propranolol although her home dose appears confusing as she gets 40 mg once daily and also 20 mg twice a day will discuss with her to clarify this and also with her pharmacy. She did have a right IJ triple-lumen catheter placed yesterday I discussed with her in the setting of well-documented by the nurse that she takes Midol at home which contains acetaminophen she is agreeable to trial acetaminophen as she wants to come off the cooling blanket. I also consulted ID and ordered a urinalysis with urine culture and some fluid support. I reviewed her CT scan and echocardiogram while the CT mentions the pulmonary embolism with mild right heart strain the echo shows a RVSP of 32 mmHg. I will proceed with consulting pulmonary in her case she would definitely need a facility supervisor outpatient. She continues on heparin drip while awaiting for therapeutic INR. In the meantime continue with antibiotic Right internal jugular vein triple-lumen catheter placement under ultrasound guidance 06/06: Patient seen and examined, showing some improvement, will follow cultures result, Continue abx, clinical stable, ID input, close eye on Hemoglobin. WBC mildly trended up. will transfer back to [facility]. 06/07: Continue supportive care, awaiting Cultures for ID and sensitivity in the meantime continue antibiotic. Am LABS. Patient continues on heparin drip until INR is therapeutic. I encouraged her to ambulate in her room and also set up on the chair. Cultures for COVID was negative. We will obtain PT OT evaluation. In short summary patient is a 40-year-old female with hypertension pulmonary embolism lower extremity DVT in the past on Coumadin who presented with shortness of breath diagnosed with pulmonary embolism admitted intermittently sepsis doubt septic emboli currently on antibiotics. Restarted on her thyroid medication with no evidence of thyroid storm. 06/08: resting comfortably on encounter. Afebrile today. Vital signs improved. 94% on 3L/min NC. Pain medication appears to be excessive as patient is heavily sedated, will scale back pain medication. D/w cardiology Dr Canseco regarding con cern for endocarditis and possible infected TEVAR graft as potential source of infection. Consult placed for HANK. Will continue to follow culture data. Continue IV vancomycin per ID direction. INR remains subtherapeutic for treatment of DVT/PE but increased to 1.48, will continue warfarin at current dosage and heparin gtt at this time. 06/09: continue therapy for MSSA bacteremia. Awaiting HANK completion. INR 1.54, warfarin 12.5 mg dose given today. Anemic today 6.9, ordered 1 unit prbc. Patient denies any rectal bleeding, bleeding from lines, hematemesis. Suspect anemia of chronic disease and possibly iatrogenic induced from multiple blood draw/line placement attempts. Lower suspicion for occult hematoma but will order CTAP. 06/10: Abx orders noted by ID. INR remains subtherapetuic, did not receive warfarin dose for some apparent reason. Pharmacy will give 15 mg dose today. Occult bleed r/o on ctap. No rectal bleeding reported. Will transfuse 1 unit prbc. Restart heparin gtt. Will follow up results of HANK from today. Assessment and Plan: #Sepsis, MSSA bacteremia -patient with Tmax of 102, tachycardic. Etiology unclear, line infection vs endocarditis, infected TEVAR graft. -patient with R femoral central line, ordered to be removed -06/04 bcx: 3/4 bottles MSSA - 06/07 bcx: NGTD - urine culture: NGTD -vancomycin IV, may need extended abx if bacteremia persists -TTE negative for valvular vegetations - ID following - cardiology consulted for HANK. #Hypotension (resolved) -Patient with low blood pressure at night -IVF started -avoid antihypotensives -labetalol currently held #Acute pulmonary embolism #Acute chest pain #History of DVT on warfarin Troponin unremarkable, chest x-ray unremarkable, bilateral lower extremity venous Dopplers unremarkable for acute DVT CT angio chest revealing acute bilateral pulmonary emboli with evidence of right heart strain Home medication of warfarin 7.5 mg daily; however, INR 1.03. Patient endorses being compliant with her anticoagulation. Continue heparin drip and bridged warfarin daily until therapeutic (goal 2.53.5). TTE without evidence of right heart strain #Seizure disorder #Anxiety Continue home medications: Keppra 500 mg twice daily, Quetiapine 100 mg every morning and 300 mg nightly, alprazolam 0.5 mg 3 times daily #History of aortic dissection s/p tevar. #Hypothyroidism -resume home levothyroxine #microcytic anemia -stable Transfuse if hemoglobin less than 7 or patient become symptomatic #Morbid obesity #Weight loss counseling #Exercise counseling - BMI 39.1 - Counseled patient on the importance of weight loss, incorporating exercise, and dietary changes (lean meats, fresh fruits and vegetables, and water intake). Patient expresses understanding. #Advanced care planning -Disease education conducted, care plan discussed, diagnoses discussed, prognosis discussed, and patient acknowledges understanding with care plan -Time: +30 min History Interval history: Resting comfortably on my encounter. Going for HANK procedure. Hospitalist Physical - Physical exam Narrative exam: GENERAL: Well-developed well-nourished. In no acute distress. but no respiratory distress CHEST/LUNGS: CTAB on room air HEART/CARDIOVASCULAR: Regular rate and rhythm. No murmur, rubs or gallops a ppreciated. ABDOMEN: +BS. NT/ND. SKIN: No rashes noted. : Right IJ cath in place NEURO: No focal motor deficit. MUSCULOSKELETAL: No joint effusion, WARM TO TOUGH EXTREMITIES: No cyanosis, clubbing or trace edema. PSYCH: Cooperative. - Constitutional Vitals: Temp Pulse Resp BP Pulse Ox 98.9 F 71 18 164/78 100 06/10/21 04:38 06/10/21 13:30 06/10/21 13:30 06/10/21 13:30 06/10/21 13:30 General appearance: Present: no acute distress, well-nourished HEART Score - HEART Score Troponin: Troponin T < 0.010 ng/mL (0.00-0.029) 05/30/21 04:46 Results - Labs CBC & Chem 7: 06/10/21 08:31 06/10/21 08:31 Labs: Laboratory Last Values WBC 5.8 K/mm3 (4.5-11.0) 06/10/21 08:31 RBC 3.17 M/mm3 (3.65-5.03) L 06/10/21 08:31 Hgb 7.1 gm/dl (10.1-14.3) L 06/10/21 08:31 Hct 22.9 % (30.3-42.9) L 06/10/21 08:31 MCV 72 fl (79-97) L 06/10/21 08:31 MCH 22 pg (28-32) L 06/10/21 08:31 MCHC 31 % (30-34) 06/10/21 08:31 RDW 25.5 % (13.2-15.2) H 06/10/21 08:31 Plt Count 351 K/mm3 (140-440) 06/10/21 08:31 Add Manual Diff Complete 06/10/21 08:31 Total Counted 100 06/10/21 08:31 Seg Neuts % (Manual) 71.0 % (40.0-70.0) H 06/10/21 08:31 Band Neutrophils % 1.0 % 06/10/21 08:31 Lymphocytes % (Manual) 17.0 % (13.4-35.0) 06/10/21 08:31 Reactive Lymphs % (Man) 1.0 % 06/10/21 08:31 Monocytes % (Manual) 5.0 % (0.0-7.3) 06/10/21 08:31 Eosinophils % (Manual) 4.0 % (0.0-4.3) 06/10/21 08:31 Basophils % (Manual) 1.0 % (0.0-1.8) 06/10/21 08:31 Metamyelocytes % 0 % 06/10/21 08:31 Myelocytes % 0 % 06/10/21 08:31 Promyelocytes % 0 % 06/10/21 08:31 Blast Cells % 0 % 06/10/21 08:31 Nucleated RBC % Not Reportable 06/10/21 08:31 Seg Neutrophils # Man 4.1 K/mm3 (1.8-7.7) 06/10/21 08:31 Band Neutrophils # 0.1 K/mm3 06/10/21 08:31 Lymphocytes # (Manual) 1.0 K/mm3 (1.2-5.4) L 06/10/21 08:31 Abs React Lymphs (Man) 0.1 K/mm3 06/10/21 08:31 Monocytes # (Manual) 0.3 K/mm3 (0.0-0.8) 06/10/21 08:31 Eosinophils # (Manual) 0.2 K/mm3 (0.0-0.4) 06/10/21 08:31 Basophils # (Manual) 0.1 K/mm3 (0.0-0.1) 06/10/21 08:31 Metamyelocytes # 0.0 K/mm3 06/10/21 08:31 Myelocytes # 0.0 K/mm3 06/10/21 08:31 Promyelocytes # 0.0 K/mm3 06/10/21 08:31 Blast Cells # 0.0 K/mm3 06/10/21 08:31 WBC Morphology Not Reportable 06/10/21 08:31 Hypersegmented Neuts Not Reportable 06/10/21 08:31 Hyposegmented Neuts Not Reportable 06/10/21 08:31 Hypogranular Neuts Not Reportable 06/10/21 08:31 Smudge Cells Not Reportable 06/10/21 08:31 Toxic Granulation Not Reportable 06/10/21 08:31 Toxic Vacuolation Not Reportable 06/10/21 08:31 Dohle Bodies Not Reportable 06/10/21 08:31 Pelger-Huet Anomaly Not Reportable 06/10/21 08:31 Jaime Rods Not Reportable 06/10/21 08:31 Platelet Estimate Consistent w auto 06/10/21 08:31 Clumped Platelets Not Reportable 06/10/21 08:31 Plt Clumps, EDTA Not Reportable 06/10/21 08:31 Large Platelets Not Reportable 06/10/21 08:31 Giant Platelets Not Reportable 06/10/21 08:31 Platelet Satelliting Not Reportable 06/10/21 08:31 Plt Morphology Comment Not Reportable 06/10/21 08:31 RBC Morphology Not Reportable 06/10/21 08:31 Dimorphic RBCs Not Reportable 06/10/21 08:31 Polychromasia 1+ 06/10/21 08:31 Hypochromasia Not Reportable 06/10/21 08:31 Poikilocytosis 2+ 06/10/21 08:31 Anisocytosis 2+ 06/10/21 08:31 Microcytosis Not Reportable 06/10/21 08:31 Macrocytosis Not Reportable 06/10/21 08:31 Spherocytes 1+ 06/10/21 08:31 Pappenheimer Bodies Not Reportable 06/10/21 08:31 Sickle Cells Not Reportable 06/10/21 08:31 Target Cells 1+ 06/10/21 08:31 Tear Drop Cells Not Reportable 06/10/21 08:31 Ovalocytes 1+ 06/10/21 08:31 Helmet Cells Not Reportable 06/10/21 08:31 Graves-Tornillo Bodies Not Reportable 06/10/21 08:31 Stanton Rings Not Reportable 06/10/21 08:31 Tricia Cells Not Reportable 06/10/21 08:31 Bite Cells Not Reportable 06/10/21 08:31 Crenated Cell Not Reportable 06/10/21 08:31 Elliptocytes Not Reportable 06/10/21 08:31 Acanthocytes (Spur) Not Reportable 06/10/21 08:31 Rouleaux Not Reportable 06/10/21 08:31 Hemoglobin C Crystals Not Reportable 06/10/21 08:31 Schistocytes Not Reportable 06/10/21 08:31 Malaria parasites Not Reportable 06/10/21 08:31 Koffi Bodies Not Reportable 06/10/21 08:31 Hem Pathologist Commnt No 06/10/21 08:31 PT 17.6 Sec. (12.2-14.9) H 06/10/21 08:31 INR 1.29 (0.87-1.13) H 06/10/21 08:31 APTT 52.6 Sec. (24.2-36.6) H 05/31/21 06:40 Heparin Anti-Xa Level < 0.10 U.I./ml (0.3-0.7) L 06/09/21 06:46 Sodium 144 mmol/L (137-145) 06/10/21 08:31 Potassium 4.6 mmol/L (3.6-5.0) D 06/10/21 08:31 Chloride 111.3 mmol/L (98-107) H 06/10/21 08:31 Carbon Dioxide 21 mmol/L (22-30) L 06/10/21 08:31 Anion Gap 16 mmol/L 06/10/21 08:31 BUN 9 mg/dL (7-17) 06/10/21 08:31 Creatinine 1.4 mg/dL (0.6-1.2) H 06/10/21 08:31 Estimated GFR 50 ml/min 06/10/21 08:31 BUN/Creatinine Ratio 6 % 06/10/21 08:31 Glucose 81 mg/dL (65-100) 06/10/21 08:31 Lactic Acid 0.70 mmol/L (0.7-2.0) 06/05/21 10:40 Calcium 8.5 mg/dL (8.4-10.2) 06/10/21 08:31 Total Bilirubin < 0.20 mg/dL (0.1-1.2) 06/10/21 08:31 AST 10 units/L (5-40) 06/10/21 08:31 ALT 9 units/L (7-56) 06/10/21 08:31 Alkaline Phosphatase 84 units/L (35-129) 06/10/21 08:31 Troponin T < 0.010 ng/mL (0.00-0.029) 05/30/21 04:46 Total Protein 5.7 g/dL (6.3-8.2) L D 06/10/21 08:31 Albumin 3.2 g/dL (3.9-5) L 06/10/21 08:31 Albumin/Globulin Ratio 1.3 % 06/10/21 08:31 Lipase 31 units/L (13-60) 05/30/21 04:41 TSH 0.034 mlU/mL (0.270-4.200) L 06/05/21 10:40 Free T4 1.29 ng/dL (0.76-1.46) 06/05/21 10:40 HCG, Qual Negative (Negative) 05/29/21 23:24 Urine Color Yellow (Yellow) 06/05/21 12:20 Urine Turbidity Slightly-cloudy (Clear) 06/05/21 12:20 Urine pH 6.0 (5.0-7.0) 06/05/21 12:20 Ur Specific [place] 1.004 (1.003-1.030) 06/05/21 12:20 Urine Protein <15 mg/dl mg/dL (Negative) 06/05/21 12:20 Urine Glucose (UA) Neg mg/dL (Negative) 06/05/21 12:20 Urine Ketones Neg mg/dL (Negative) 06/05/21 12:20 Urine Blood Mod (Negative) 06/05/21 12:20 Urine Nitrite Neg (Negative) 06/05/21 12:20 Urine Bilirubin Neg (Negative) 06/05/21 12:20 Urine Urobilinogen < 2.0 mg/dL (<2.0) 06/05/21 12:20 Ur Leukocyte Esterase Neg (Negative) 06/05/21 12:20 Urine WBC (Auto) 2.0 /HPF (0.0-6.0) 06/05/21 12:20 Urine RBC (Auto) 37.0 /HPF (0.0-6.0) 06/05/21 12:20 U Epithel Cells (Auto) 3.0 /HPF (0-13.0) 06/05/21 12:20 Urine Bacteria (Auto) 4+ /HPF (Negative) 06/05/21 12:20 Urine Mucus Few /HPF 06/05/21 12:20 Vancomycin Trough 25.1 ug/mL (5.0-20.0) H 06/08/21 04:52 LAURA Screen Negative (Negative) 06/05/21 15:10 Coronavirus (PCR) Negative (Negative) 06/05/21 07:26 Influenza A (Rapid) Negative (Negative) 06/05/21 14:06 Influenza A (RT-PCR) Negative (Negative) 06/05/21 14:06 Influenza B (Rapid) Negative (Negative) 06/05/21 14:06 Influenza B (RT-PCR) Negative (Negative) 06/05/21 14:06 Blood Type B POSITIVE 06/10/21 08:33 Antibody Screen Negative 06/10/21 08:33 Crossmatch See Detail 06/10/21 08:33 Microbiology: Microbiology 06/07/21 15:47 Peripheral/Venous Blood Culture - Preliminary NO GROWTH AFTER 48 HOURS 06/07/21 15:47 Peripheral/Venous Blood Culture - Preliminary NO GROWTH AFTER 48 HOURS Rojas/IV: Voiding Method Bedside Commode Active Medications - Current Medications Current Medications: Generic Name Dose Route Start Last Admin Trade Name Freq PRN Reason Stop Dose Admin Albuterol 2.5 mg 05/30/21 05:14 Albuterol 2.5 Mg/3 Ml Nebu IH Q3HRT PRN Shortness Of Breath Alprazolam 0.5 mg 06/09/21 08:00 06/10/21 10:41 Alprazolam 0.5 Mg Tab PO 0.5 mg BID ELLIOTT Administration Aspirin 81 mg 05/30/21 10:00 06/10/21 10:41 Aspirin Ec 81 Mg Tab PO 81 mg QDAY ELLIOTT Administration Benzocaine 3 spray 06/10/21 09:00 Benzocaine 20% Top [place] 0.5 Ml Unit Dose MM 06/10/21 21:00 PREOP NR Famotidine 20 mg 05/30/21 10:00 06/10/21 10:42 Famotidine 20 Mg Tab PO 20 mg BID ELLIOTT Administration Gabapentin 100 mg 06/10/21 22:00 Gabapentin 100 Mg Cap PO Q8HR ELLIOTT Heparin Sodium (Porcine) 4,500 unit 06/03/21 09:46 Heparin 10,000 Units/10 Ml Vial 40 unit/kg (4500 unit) IV Q6H PRN Anti-Xa Assay < 0.1 units/ml Heparin Sodium/Sodium Chloride 25,000 unit in 500 mls @ 30 mls/hr 06/03/21 10:00 06/07/21 20:37 Heparin/ 0.45% Nacl-25,000 Unit/500 Ml IV 1,900 units/hr TITR ELLIOTT 38 mls/hr Administration Protocol 1,500 UNITS/HR Cefazolin Sodium 2 gm/ Sodium 100 mls @ 200 mls/hr 06/08/21 12:00 06/10/21 10:33 Chloride IV 07/19/21 18:29 Not Given Q6HR ELLIOTT Protocol Levetiracetam 500 mg 05/30/21 10:00 06/10/21 10:42 Levetiracetam 500 Mg Tab PO 500 mg BID ELLIOTT Administration Levothyroxine Sodium 150 mcg 06/06/21 06:00 06/10/21 05:10 Levothyroxine 150 Mcg Tab PO 150 mcg DAILY@0600 ELLIOTT Administration Morphine Sulfate 2 mg 06/03/21 09:30 06/10/21 05:10 Morphine 2 Mg/1 Ml Inj IV 2 mg Q8H PRN Administration Pain, Moderate (4-6) Ondansetron HCl 4 mg 06/05/21 08:00 06/10/21 10:46 Ondansetron 4 Mg/2 Ml Inj IV 4 mg Q4H PRN Administration Nausea And Vomiting Propranolol HCl 40 mg 05/30/21 10:00 06/10/21 10:40 Propranolol 40 Mg Tab PO 40 mg BID ELLIOTT Administration Quetiapine Fumarate 100 mg 05/30/21 10:00 06/10/21 10:41 Quetiapine 100 Mg Tab PO 100 mg QAM ELLIOTT Administration Sodium Chloride 10 ml 05/30/21 10:00 06/10/21 10:40 Sodium Chloride 0.9% 10 Ml Flush Syringe IV 10 ml BID ELLIOTT Administration Sodium Chloride 10 ml 05/30/21 05:14 Sodium Chloride 0.9% 10 Ml Flush Syringe IV PRN PRN LINE FLUSH Tramadol HCl 100 mg 06/09/21 08:00 06/10/21 10:41 Tramadol 50 Mg Tab PO 100 mg BID ELLIOTT Administration Warfarin Sodium 15 mg 06/10/21 17:00 Warfarin 7.5 Mg Tab PO 06/11/21 16:59 ONCE@1700 NR Nutrition/Malnutrition Assess - Dietary Evaluation Nutrition/Malnutrition Findings: Nutrition Notes Start: 05/31/21 12:39 Freq: Status: Active Protocol: Document 06/07/21 18:49 JAMES (Rec: 06/07/21 19:06 JAMES [id number]) Nutrition Notes Initial or Follow up Reassessment Current Diagnosis Sepsis,Hypertension Other Pertinent Diagnosis LE DVT, Bilateral Pulmonary Thromboembolism, R-Ventricular Strain, Pericard Current Diet Cardiac Diet (since B 05/30). Labs/Tests 06/07: Na 135, CO2 20, Ca 7.8. Pertinent Medications 06/07: Levothyroxine, Warfarin 12.5 mg, others nutritionally unremarkable. Height 5 ft 7 in Weight 111 kg [place] Body Weight (kg) 61.36 BMI 38.3 Weight change and time frame No body weight change reported in 1 week. Weight Status Obese Subjective/Other Information RD consult for routine F/U on dietary advancement. Pt's PO intake of meals has been Good (75%), according to ADL notes. Pt ois on Room Air, O2 saturation @ 98%, according to Vital Signs notes. Percent of energy/protein needs met: Prescribed Cardiac Diet provides for energy/protein needs (2,230 Kcal/85 g) during LOS. Burn Absent Trauma Absent GI Symptoms None Food Allergy Yes Skin Integrity/Comment Assessment WNL. Current % PO Good (75-100%) Minimum of two criteria No Is patient on ventilator? No Is Patient Ambulatory and/or Out of Bed Yes REE-([place]. Jeor-ambulatory/OOB) [ 2356.419 [id number]] Kcal/Kg value to use for calculation 16 Approximate Energy Requirements Using 1776 kcal/Kg Calculation Used for Recommendations Kcal/kg Additional Notes Protein: 0.8-1 g/Kg AdjBW; 68- 86 g/day. Fluids: 1 ml/Kcal, or as per MD. Nutrition Intervention Change Diet Order: Continue Cardiac Diet. Follow-Up By: 06/14/21 Additional Comments Continue monitoring food tolerance, %PO intake of meals , and BM.
[2021-06-10] MEDS ORDERED: SODIUM CHLORIDE 0.9% 500 ML 500 ML ONE (16:37)
[2021-06-10] MEDS ORDERED: WARFARIN 7.5 MG TAB PO NR (17:00)
--- NOTE | 2021-06-10 18:16 | Post Anesthesia Evaluation ---
- Post Anesthesia Evaluation Patient Participated: Yes Airway Patent: Yes Stable Respiratory Function: Yes Nausea/Vomiting: No Temp > 96.8F: Yes Pain Manageable: Yes Adequeate Hydration: Yes Anesthesia Complications: No Block Receding Appropriately: Not Applicable Patient on Ventilator: No
[2021-06-10] MEDS: GABAPENTIN 100 MG CAP PO SCH (22:00)
[2021-06-10] MEDS: HEPARIN/ 0.45% NACL DRIP 25,000 UNIT/500 ML BAG IV SCH (22:36)
[2021-06-11] MEDS: MORPHINE 2 MG/1 ML INJ IV PRN ×4 (03:13→21:04)
[2021-06-11] MEDS: GABAPENTIN 100 MG CAP PO SCH ×3 (06:06→21:05)
[2021-06-11] MEDS: LEVOTHYROXINE 150 MCG TAB PO SCH (06:07)
[2021-06-11 08:41] LABS: INR 1.17 (0.87-1.13)
[2021-06-11] MEDS: FAMOTIDINE 20 MG TAB PO SCH ×2 (09:15→21:04)
[2021-06-11] MEDS: ASPIRIN EC 81 MG TAB PO SCH (09:15)
[2021-06-11] MEDS: QUEtiapine 100 MG TAB PO SCH (09:15)
[2021-06-11] MEDS: ALPRAZolam 0.5 MG TAB PO SCH ×2 (09:15→21:05)
[2021-06-11] MEDS: levETIRAcetam 500 MG TAB PO SCH ×2 (09:15→21:03)
[2021-06-11] MEDS: traMADol 50 MG TAB PO SCH ×2 (09:48→22:55)
[2021-06-11] MEDS: PROPRANOLOL 40 MG TAB PO SCH ×2 (09:49→21:20)
--- NOTE | 2021-06-11 11:49 | Progress Note ---
Assessment and Plan Cultures: 06/04/2021 blood culture: MSSA 06/05/2021 urine culture: Usual skin john 06/07/2021 blood culture: no growth A/P: 40-year-old female with hypertension, pulmonary embolism, DVT, Graves' disease, history of aortic dissection s/p TEVAR, pericarditis was admitted to the hospital with chest pain, bilateral calf swelling, CT chest angio revealed acute bilateral pulmonary thromboemboli with mild right ventricular strain and scattered pneumonitis throughout the lungs. She was admitted to the hospital on 05/29/2021. On 06/04 2021, she started spiking fevers up to 103.1 F: #Sepsis, secondary to MSSA bacteremia: Source unclear but could be related to central line related blood stream infection from a femoral TLC which was removed. TTE did not reveal any valvular vegetations. Showed mild pulmonary hypertension and mild to moderate tricuspid regurgitation. HANK negative for endocarditis. #Bilateral pulmonary embolism: On anticoagulation Recs: -okay to insert PICC line -Although her bacteremia cleared quickly and was related to her femoral central line which was removed, due to her indwelling TEVAR, would recommend treating with IV Ancef for 6 weeks ending 07/19/2021 -CM orders placed to help arrange IV abx -OK for discharge once abx are arranged Will sign off. Please call with questions. Stephanie June MD, FACP, [facility] ([facility] O: [phone] F: [phone] C: [phone] Subjective Date of service: 06/11/21 Principal diagnosis: Sepsis; Acute P.E.; Chest pain; H/O DVT; Seizures; Hypothyroidism; Obesity Interval history: No fever. No complaints. No vomiting. Tolerating abx. Objective - Exam Narrative Exam: Physical Exam: Constitutional: Alert, cooperative. No acute distress Head, Ears, Nose: Normocephalic, atraumatic. External ears, nose normal Eyes: Conjunctivae/corneas clear. No icterus. No ptosis. Neck: Supple, no meningeal signs Cardiovascular: S1, S2 + Respiratory: Good air entry, clear to auscultation bilaterally GI: Soft, non-tender; bowel sounds normal. No peritoneal signs Musculoskeletal: No pedal edema, no cyanosis. Skin: No rash or abscess Hem/Lymphatic: No palpable cervical or supraclavicular nodes. No lymphangitis Psych: Mood ok. Affect normal Neurological: Awake, alert, oriented. No gross abnormality - Constitutional Vitals: Vital Signs Temp Pulse Resp BP Pulse Ox 98.7 F 99 H 20 129/63 97 06/11/21 04:48 06/11/21 09:49 06/11/21 06:07 06/11/21 09:49 06/11/21 04:48 Temperature -Last 24 Hours Temperature 98.7 F Temperature 98.4 F Temperature 98.4 F Temperature 98.3 F Temperature 98.0 F Temperature 98.0 F Temperature 98.3 F - Labs CBC & Chem 7: 06/10/21 08:31 06/10/21 08:31 Labs: Abnormal lab results 06/10/21 06/11/21 Range/Units 08:33 08:25 PT 16.3 H (12.2-14.9) Sec. INR 1.17 H (0.87-1.13) Crossmatch See Detail
[2021-06-11] MEDS: HEPARIN/ 0.45% NACL DRIP 25,000 UNIT/500 ML BAG IV SCH (12:18)
--- NOTE | 2021-06-11 12:58 | Progress Note ---
Assessment and Plan Assessment and plan: HPI: 40 years old female with past medical history of hypertension, PE x2, (R lung 05/2016, L lung 01/2017--on coumadin), R leg DVT 03/2017, Graves Disease, heart murmur, aortic dissection, PERICARDITIS, thyroid storm GERD was brought to the hospital because of chest pain, retrosternal, sharp, radiating to back, 10/10, worsened by deep breaths, not relieved by anything, associated with SOB. Denies palpitations, diaphoresis. Endorses bilateral leg swelling, pain in her calves. Denies recent travel, immobilization, surgery, hospitalization, Hormonal contraceptive use. In the emergency room initial CT scan of the chest shows acute bilateral pulmonary thromboemboli with evidence of mild right ventricular restaurant. Scattered pneumonitis noted throughout the both lungs.'s were going to admit the patient to the medical telemetry put the patient on IV heparin we also order echocardiogram Hospital Course: 06/05: Is unclear to me why the patient was transferred to the IMCU as I do not have any clear documentation to the results but in effect I was told by the nurse that the patient had pulled out his for her femoral line and did not have an access. Patient appears to have been having fever for a few days no known etiology we will proceed with a sepsis work-up although closely reviewing her case shows a history of thyroid storm in the past and she has not been receiving her thyroid medication while she does not have confusion at this time she does have tachycardia and tachypnea. We will give her a dose of IV levothyroxine today and start her daily dose of levothyroxine a.m. She has been on her propranolol although her home dose appears confusing as she gets 40 mg once daily and also 20 mg twice a day will discuss with her to clarify this and also with her pharmacy. She did have a right IJ triple-lumen catheter placed yesterday I discussed with her in the setting of well-documented by the nurse that she takes Midol at home which contains acetaminophen she is agreeable to trial acetaminophen as she wants to come off the cooling blanket. I also consulted ID and ordered a urinalysis with urine culture and some fluid support. I reviewed her CT scan and echocardiogram while the CT mentions the pulmonary embolism with mild right heart strain the echo shows a RVSP of 32 mmHg. I will proceed with consulting pulmonary in her case she would definitely need a concrete floor installer outpatient. She continues on heparin drip while awaiting for therapeutic INR. In the meantime continue with antibiotic Right internal jugular vein triple-lumen catheter placement under ultrasound guidance 06/06: Patient seen and examined, showing some improvement, will follow cultures result, Continue abx, clinical stable, ID input, close eye on Hemoglobin. WBC mildly trended up. will transfer back to [facility]. 06/07: Continue supportive care, awaiting Cultures for ID and sensitivity in the meantime continue antibiotic. Am LABS. Patient continues on heparin drip until INR is therapeutic. I encouraged her to ambulate in her room and also set up on the chair. Cultures for COVID was negative. We will obtain PT OT evaluation. In short summary patient is a 40-year-old female with hypertension pulmonary embolism lower extremity DVT in the past on Coumadin who presented with shortness of breath diagnosed with pulmonary embolism admitted intermittently sepsis doubt septic emboli currently on antibiotics. Restarted on her thyroid medication with no evidence of thyroid storm. 06/08: resting comfortably on encounter. Afebrile today. Vital signs improved. 94% on 3L/min NC. Pain medication appears to be excessive as patient is heavily sedated, will scale back pain medication. D/w cardiology Dr Canseco regarding con cern for endocarditis and possible infected TEVAR graft as potential source of infection. Consult placed for HANK. Will continue to follow culture data. Continue IV vancomycin per ID direction. INR remains subtherapeutic for treatment of DVT/PE but increased to 1.48, will continue warfarin at current dosage and heparin gtt at this time. 06/09: continue therapy for MSSA bacteremia. Awaiting HANK completion. INR 1.54, warfarin 12.5 mg dose given today. Anemic today 6.9, ordered 1 unit prbc. Patient denies any rectal bleeding, bleeding from lines, hematemesis. Suspect anemia of chronic disease and possibly iatrogenic induced from multiple blood draw/line placement attempts. Lower suspicion for occult hematoma but will order CTAP. 06/10: Abx orders noted by ID. INR remains subtherapetuic, did not receive warfarin dose for some apparent reason. Pharmacy will give 15 mg dose today. Occult bleed r/o on ctap. No rectal bleeding reported. Will transfuse 1 unit prbc. Restart heparin gtt. Will follow up results of HANK from today. 06/11: HANK negative for endocarditis. INR subtherapuetic. unfortunately patient has missed last two day of warfarin dosing and inr reflects this. Patient could also be warfarin resistant. Patient needs to be receiving BOTH warfarin and heparin gtt until INR goal of 2.5 achieved. D/w pharmacy, will continue with 15 mg dosing at this time. Continue Iv abx. Discharge plan is for early next week. Assessment and Plan: #Sepsis, MSSA bacteremia -patient with Tmax of 102, tachycardic. Etiology unclear, line infection vs endocarditis, infected TEVAR graft. -patient with R femoral central line, ordered to be removed -06/04 bcx: 3/4 bottles MSSA - 06/07 bcx: NGTD - urine culture: NGTD -ancef IV, may need extended abx if bacteremia persists -TTE negative for valvular vegetations - ID following - HANK negative for endocarditis #Hypotension (resolved) -Patient with low blood pressure at night -IVF started -avoid antihypotensives -labetalol currently held #Acute pulmonary embolism #Acute chest pain #History of DVT on warfarin Troponin unremarkable, chest x-ray unremarkable, bilateral lower extremity venous Dopplers unremarkable for acute DVT CT angio chest revealing acute bilateral pulmonary emboli with evidence of right heart strain Home medication of warfarin 7.5 mg daily; however, INR 1.03. Patient endorses being compliant with her anticoagulation. Continue heparin drip and bridged warfarin daily until therapeutic (goal 2.53.5). TTE without evidence of right heart strain Patient needs to be taking BOTH warfarin and heparin until INR goal of 2.5 achieved. #history of mechanical heart valve - goal inr 2.5. #Seizure disorder #Anxiety Continue home medications: Keppra 500 mg twice daily, Quetiapine 100 mg every morning and 300 mg nightly, alprazolam 0.5 mg 3 times daily #History of aortic dissection s/p tevar. #Hypothyroidism -resume home levothyroxine #microcytic anemia -stable Transfuse if hemoglobin less than 7 or patient become symptomatic #Morbid obesity #Weight loss counseling #Exercise counseling - BMI 39.1 - Counseled patient on the importance of weight loss, incorporating exercise, and dietary changes (lean meats, fresh fruits and vegetables, and water intake). Patient expresses understanding. #Advanced care planning -Disease education conducted, care plan discussed, diagnoses discussed, prognosis discussed, and patient acknowledges understanding with care plan -Time: +30 min History Interval history: Resting comfortably on encounter. No acute complaints. Hospitalist Physical - Physical exam Narrative exam: GENERAL: Well-developed well-nourished. In no acute distress. but no respiratory distress CHEST/LUNGS: CTAB on room air HEART/CARDIOVASCULAR: Regular rate and rhythm. No murmur, rubs or gallops appreciated. ABDOMEN: +BS. NT/ND. SKIN: No rashes noted. : Right IJ cath in place NEURO: No focal motor deficit. MUSCULOSKELETAL: No joint effusion, WARM TO TOUGH EXTREMITIES: No cyanosis, clubbing or trace edema. PSYCH: Cooperative. - Constitutional Vitals: Temp Pulse Resp BP Pulse Ox 98.7 F 99 H 20 129/63 97 06/11/21 04:48 06/11/21 09:49 06/11/21 06:07 06/11/21 09:49 06/11/21 04:48 General appearance: Present: no acute distress, well-nourished HEART Score - HEART Score Troponin: Troponin T < 0.010 ng/mL (0.00-0.029) 05/30/21 04:46 Results - Labs CBC & Chem 7: 06/10/21 08:31 06/10/21 08:31 Labs: Laboratory Last Values WBC 5.8 K/mm3 (4.5-11.0) 06/10/21 08:31 RBC 3.17 M/mm3 (3.65-5.03) L 06/10/21 08:31 Hgb 7.1 gm/dl (10.1-14.3) L 06/10/21 08:31 Hct 22.9 % (30.3-42.9) L 06/10/21 08:31 MCV 72 fl (79-97) L 06/10/21 08:31 MCH 22 pg (28-32) L 06/10/21 08:31 MCHC 31 % (30-34) 06/10/21 08:31 RDW 25.5 % (13.2-15.2) H 06/10/21 08:31 Plt Count 351 K/mm3 (140-440) 06/10/21 08:31 Add Manual Diff Complete 06/10/21 08:31 Total Counted 100 06/10/21 08:31 Seg Neuts % (Manual) 71.0 % (40.0-70.0) H 06/10/21 08:31 Band Neutrophils % 1.0 % 06/10/21 08:31 Lymphocytes % (Manual) 17.0 % (13.4-35.0) 06/10/21 08:31 Reactive Lymphs % (Man) 1.0 % 06/10/21 08:31 Monocytes % (Manual) 5.0 % (0.0-7.3) 06/10/21 08:31 Eosinophils % (Manual) 4.0 % (0.0-4.3) 06/10/21 08:31 Basophils % (Manual) 1.0 % (0.0-1.8) 06/10/21 08:31 Metamyelocytes % 0 % 06/10/21 08:31 Myelocytes % 0 % 06/10/21 08:31 Promyelocytes % 0 % 06/10/21 08:31 Blast Cells % 0 % 06/10/21 08:31 Nucleated RBC % Not Reportable 06/10/21 08:31 Seg Neutrophils # Man 4.1 K/mm3 (1.8-7.7) 06/10/21 08:31 Band Neutrophils # 0.1 K/mm3 06/10/21 08:31 Lymphocytes # (Manual) 1.0 K/mm3 (1.2-5.4) L 06/10/21 08:31 Abs React Lymphs (Man) 0.1 K/mm3 06/10/21 08:31 Monocytes # (Manual) 0.3 K/mm3 (0.0-0.8) 06/10/21 08:31 Eosinophils # (Manual) 0.2 K/mm3 (0.0-0.4) 06/10/21 08:31 Basophils # (Manual) 0.1 K/mm3 (0.0-0.1) 06/10/21 08:31 Metamyelocytes # 0.0 K/mm3 06/10/21 08:31 Myelocytes # 0.0 K/mm3 06/10/21 08:31 Promyelocytes # 0.0 K/mm3 06/10/21 08:31 Blast Cells # 0.0 K/mm3 06/10/21 08:31 WBC Morphology Not Reportable 06/10/21 08:31 Hypersegmented Neuts Not Reportable 06/10/21 08:31 Hyposegmented Neuts Not Reportable 06/10/21 08:31 Hypogranular Neuts Not Reportable 06/10/21 08:31 Smudge Cells Not Reportable 06/10/21 08:31 Toxic Granulation Not Reportable 06/10/21 08:31 Toxic Vacuolation Not Reportable 06/10/21 08:31 Dohle Bodies Not Reportable 06/10/21 08:31 Pelger-Huet Anomaly Not Reportable 06/10/21 08:31 Jaime Rods Not Reportable 06/10/21 08:31 Platelet Estimate Consistent w auto 06/10/21 08:31 Clumped Platelets Not Reportable 06/10/21 08:31 Plt Clumps, EDTA Not Reportable 06/10/21 08:31 Large Platelets Not Reportable 06/10/21 08:31 Giant Platelets Not Reportable 06/10/21 08:31 Platelet Satelliting Not Reportable 06/10/21 08:31 Plt Morphology Comment Not Reportable 06/10/21 08:31 RBC Morphology Not Reportable 06/10/21 08:31 Dimorphic RBCs Not Reportable 06/10/21 08:31 Polychromasia 1+ 06/10/21 08:31 Hypochromasia Not Reportable 06/10/21 08:31 Poikilocytosis 2+ 06/10/21 08:31 Anisocytosis 2+ 06/10/21 08:31 Microcytosis Not Reportable 06/10/21 08:31 Macrocytosis Not Reportable 06/10/21 08:31 Spherocytes 1+ 06/10/21 08:31 Pappenheimer Bodies Not Reportable 06/10/21 08:31 Sickle Cells Not Reportable 06/10/21 08:31 Target Cells 1+ 06/10/21 08:31 Tear Drop Cells Not Reportable 06/10/21 08:31 Ovalocytes 1+ 06/10/21 08:31 Helmet Cells Not Reportable 06/10/21 08:31 [place] Bodies Not Reportable 06/10/21 08:31 Lynch Rings Not Reportable 06/10/21 08:31 [place] Cells Not Reportable 06/10/21 08:31 Bite Cells Not Reportable 06/10/21 08:31 Crenated Cell Not Reportable 06/10/21 08:31 Elliptocytes Not Reportable 06/10/21 08:31 Acanthocytes (Spur) Not Reportable 06/10/21 08:31 Rouleaux Not Reportable 06/10/21 08:31 Hemoglobin C Crystals Not Reportable 06/10/21 08:31 Schistocytes Not Reportable 06/10/21 08:31 Malaria parasites Not Reportable 06/10/21 08:31 Koffi Bodies Not Reportable 06/10/21 08:31 Hem Pathologist Commnt No 06/10/21 08:31 PT 16.3 Sec. (12.2-14.9) H 06/11/21 08:25 INR 1.17 (0.87-1.13) H 06/11/21 08:25 APTT 52.6 Sec. (24.2-36.6) H 05/31/21 06:40 Heparin Anti-Xa Level 0.34 U.I./ml (0.3-0.7) 06/11/21 08:25 Sodium 144 mmol/L (137-145) 06/10/21 08:31 Potassium 4.6 mmol/L (3.6-5.0) D 06/10/21 08:31 Chloride 111.3 mmol/L (98-107) H 06/10/21 08:31 Carbon Dioxide 21 mmol/L (22-30) L 06/10/21 08:31 Anion Gap 16 mmol/L 06/10/21 08:31 BUN 9 mg/dL (7-17) 06/10/21 08:31 Creatinine 1.4 mg/dL (0.6-1.2) H 06/10/21 08:31 Estimated GFR 50 ml/min 06/10/21 08:31 BUN/Creatinine Ratio 6 % 06/10/21 08:31 Glucose 81 mg/dL (65-100) 06/10/21 08:31 Lactic Acid 0.70 mmol/L (0.7-2.0) 06/05/21 10:40 Calcium 8.5 mg/dL (8.4-10.2) 06/10/21 08:31 Total Bilirubin < 0.20 mg/dL (0.1-1.2) 06/10/21 08:31 AST 10 units/L (5-40) 06/10/21 08:31 ALT 9 units/L (7-56) 06/10/21 08:31 Alkaline Phosphatase 84 units/L (35-129) 06/10/21 08:31 Troponin T < 0.010 ng/mL (0.00-0.029) 05/30/21 04:46 Total Protein 5.7 g/dL (6.3-8.2) L D 06/10/21 08:31 Albumin 3.2 g/dL (3.9-5) L 06/10/21 08:31 Albumin/Globulin Ratio 1.3 % 06/10/21 08:31 Lipase 31 units/L (13-60) 05/30/21 04:41 TSH 0.034 mlU/mL (0.270-4.200) L 06/05/21 10:40 Free T4 1.29 ng/dL (0.76-1.46) 06/05/21 10:40 HCG, Qual Negative (Negative) 05/29/21 23:24 Urine Color Yellow (Yellow) 06/05/21 12:20 Urine Turbidity Slightly-cloudy (Clear) 06/05/21 12:20 Urine pH 6.0 (5.0-7.0) 06/05/21 12:20 Ur Specific [place] 1.004 (1.003-1.030) 06/05/21 12:20 Urine Protein <15 mg/dl mg/dL (Negative) 06/05/21 12:20 Urine Glucose (UA) Neg mg/dL (Negative) 06/05/21 12:20 Urine Ketones Neg mg/dL (Negative) 06/05/21 12:20 Urine Blood Mod (Negative) 06/05/21 12:20 Urine Nitrite Neg (Negative) 06/05/21 12:20 Urine Bilirubin Neg (Negative) 06/05/21 12:20 Urine Urobilinogen < 2.0 mg/dL (<2.0) 06/05/21 12:20 Ur Leukocyte Esterase Neg (Negative) 06/05/21 12:20 Urine WBC (Auto) 2.0 /HPF (0.0-6.0) 06/05/21 12:20 Urine RBC (Auto) 37.0 /HPF (0.0-6.0) 06/05/21 12:20 U Epithel Cells (Auto) 3.0 /HPF (0-13.0) 06/05/21 12:20 Urine Bacteria (Auto) 4+ /HPF (Negative) 06/05/21 12:20 Urine Mucus Few /HPF 06/05/21 12:20 Vancomycin Trough 25.1 ug/mL (5.0-20.0) H 06/08/21 04:52 LAURA Screen Negative (Negative) 06/05/21 15:10 Coronavirus (PCR) Negative (Negative) 06/05/21 07:26 Influenza A (Rapid) Negative (Negative) 06/05/21 14:06 Influenza A (RT-PCR) Negative (Negative) 06/05/21 14:06 Influenza B (Rapid) Negative (Negative) 06/05/21 14:06 Influenza B (RT-PCR) Negative (Negative) 06/05/21 14:06 Blood Type B POSITIVE 06/10/21 08:33 Antibody Screen Negative 06/10/21 08:33 Crossmatch See Detail 06/10/21 08:33 Microbiology: Microbiology 06/07/21 15:47 Peripheral/Venous Blood Culture - Preliminary NO GROWTH AFTER 72 HOURS 06/07/21 15:47 Peripheral/Venous Blood Culture - Preliminary NO GROWTH AFTER 72 HOURS Rojas/IV: Voiding Method Bedside Commode Active Medications - Current Medications Current Medications: Generic Name Dose Route Start Last Admin Trade Name Freq PRN Reason Stop Dose Admin Albuterol 2.5 mg 05/30/21 05:14 Albuterol 2.5 Mg/3 Ml Nebu IH Q3HRT PRN Shortness Of Breath Alprazolam 0.5 mg 06/09/21 08:00 06/11/21 09:15 Alprazolam 0.5 Mg Tab PO 0.5 mg BID ELLIOTT Administration Aspirin 81 mg 05/30/21 10:00 06/11/21 09:15 Aspirin Ec 81 Mg Tab PO 81 mg QDAY ELLIOTT Administration Famotidine 20 mg 05/30/21 10:00 06/11/21 09:15 Famotidine 20 Mg Tab PO 20 mg BID ELLIOTT Administration Gabapentin 100 mg 06/10/21 22:00 06/11/21 06:06 Gabapentin 100 Mg Cap PO 100 mg Q8HR ELLIOTT Administration Heparin Sodium (Porcine) 4,500 unit 06/03/21 09:46 Heparin 10,000 Units/10 Ml Vial 40 unit/kg (4500 unit) IV Q6H PRN Anti-Xa Assay < 0.1 units/ml Heparin Sodium/Sodium Chloride 25,000 unit in 500 mls @ 30 mls/hr 06/03/21 10:00 06/11/21 12:18 Heparin/ 0.45% Nacl-25,000 Unit/500 Ml IV 1,900 units/hr TITR ELLIOTT 38 mls/hr Administration Protocol 1,500 UNITS/HR Cefazolin Sodium 2 gm/ Sodium 100 mls @ 200 mls/hr 06/08/21 12:00 06/11/21 06:05 Chloride IV 07/19/21 18:29 200 mls/hr Q6HR ELLIOTT Administration Protocol Levetiracetam 500 mg 05/30/21 10:00 06/11/21 09:15 Levetiracetam 500 Mg Tab PO 500 mg BID ELLIOTT Administration Levothyroxine Sodium 150 mcg 06/06/21 06:00 06/11/21 06:07 Levothyroxine 150 Mcg Tab PO 150 mcg DAILY@0600 ELLIOTT Administration Morphine Sulfate 2 mg 06/03/21 09:30 06/11/21 06:07 Morphine 2 Mg/1 Ml Inj IV 2 mg Q8H PRN Administration Pain, Moderate (4-6) Ondansetron HCl 4 mg 06/05/21 08:00 06/10/21 10:46 Ondansetron 4 Mg/2 Ml Inj IV 4 mg Q4H PRN Administration Nausea And Vomiting Propranolol HCl 40 mg 05/30/21 10:00 06/11/21 09:49 Propranolol 40 Mg Tab PO 40 mg BID ELLIOTT Administration Quetiapine Fumarate 100 mg 05/30/21 10:00 06/11/21 09:15 Quetiapine 100 Mg Tab PO 100 mg QAM ELLIOTT Administration Sodium Chloride 10 ml 05/30/21 10:00 06/11/21 09:50 Sodium Chloride 0.9% 10 Ml Flush Syringe IV 10 ml BID ELLIOTT Administration Sodium Chloride 10 ml 05/30/21 05:14 Sodium Chloride 0.9% 10 Ml Flush Syringe IV PRN PRN LINE FLUSH Tramadol HCl 100 mg 06/09/21 08:00 06/11/21 09:48 Tramadol 50 Mg Tab PO 100 mg BID ELLIOTT Administration Warfarin Sodium 15 mg 06/11/21 17:00 Warfarin 7.5 Mg Tab PO 06/12/21 16:59 ONCE@1700 NR Nutrition/Malnutrition Assess - Dietary Evaluation Nutrition/Malnutrition Findings: Nutrition Notes Start: 05/31/21 12:39 Freq: Status: Active Protocol: Document 06/07/21 18:49 JAMES (Rec: 06/07/21 19:06 JAMES [id number]) Nutrition Notes Initial or Follow up Reassessment Current Diagnosis Sepsis,Hypertension Other Pertinent Diagnosis LE DVT, Bilateral Pulmonary Thromboembolism, R-Ventricular Strain, Pericard Current Diet Cardiac Diet (since B 05/30). Labs/Tests 06/07: Na 135, CO2 20, Ca 7.8. Pertinent Medications 06/07: Levothyroxine, Warfarin 12.5 mg, others nutritionally unremarkable. Height 5 ft 7 in Weight 111 kg [place] Body Weight (kg) 61.36 BMI 38.3 Weight change and time frame No body weight change reported in 1 week. Weight Status Obese Subjective/Other Information RD consult for routine F/U on dietary advancement. Pt's PO intake of meals has been Good (75%), according to ADL notes. Pt ois on Room Air, O2 saturation @ 98%, according to Vital Signs notes. Percent of energy/protein needs met: Prescribed Cardiac Diet provides for energy/protein needs (2,230 Kcal/85 g) during LOS. Burn Absent Trauma Absent GI Symptoms None Food Allergy Yes Skin Integrity/Comment Assessment WNL. Current % PO Good (75-100%) Minimum of two criteria No Is patient on ventilator? No Is Patient Ambulatory and/or Out of Bed Yes REE-([facility]-[facility]. or-ambulatory/OOB) [ 2356.419 [id number]] Kcal/Kg value to use for calculation 16 Approximate Energy Requirements Using 1776 kcal/Kg Calculation Used for Recommendations Kcal/kg Additional Notes Protein: 0.8-1 g/Kg AdjBW; 68- 86 g/day. Fluids: 1 ml/Kcal, or as per MD. Nutrition Intervention Change Diet Order: Continue Cardiac Diet. Follow-Up By: 06/14/21 Additional Comments Continue monitoring food tolerance, %PO intake of meals , and BM.
--- NOTE | 2021-06-11 13:42 | Progress Note ---
Assessment and Plan 40 years old female with past medical history of hypertension, DVT, PE, GERD Hyperthyroidismwas brought to the hospital because of chest pain, retrosternal, sharp, radiating to back, 10/10, worsened by deep breaths, not relieved by anything, associated with SOB. Denies palpitations, diaphoresis. Endorses bilateral leg swelling, pain in her calves. Denies recent travel, immobilization, surgery, hospitalization, Hormonal contraceptive use. In the emergency room initial CT scan of the chest shows acute bilateral pulmonary thromboemboli with evidence of mild right ventricular strain. Scattered pneumonitis noted throughout the both lungs. Admitted the patient to the medical telemetry put the patient on IV heparin . Ordered echocardiogram Past Surgical History: Other (Left arm surgery 02/2017, Right knee, Rt leg. 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 Patient awake, morbidly Obese, weak. Patient is on room air. Patient suppose to use 2 litres O2. Stressed the importance of using O2 all the time. Patient afebrile. No leukocytosis. Blood pressure 129/63, Pulse 99 , Respirations 20. Patient is on I/V heparin, Po coumadin, cefazolin, famotidine. I spent critical care time of 45 minutes in obtaining history, review the chart, examine the patient, review CAT scan of chest, review lab results, talking to the nursing staff and work up plan of treatment in critically ill patient with multiple medical problems. - Patient Problems (1) Pulmonary embolism Current Visit: Yes Status: Acute Plan to address problem: Patient is on I/V Heparin. Also started on PO coumadin. (2) Acute chest pain Current Visit: No Status: Acute Plan to address problem: Recommend cardiology consultation also. (3) Abnormality of thoracic aorta Current Visit: No Status: Acute Plan to address problem: Patient has history of aortic dissection and TEVAR procedure. (4) Asthma Current Visit: No Status: Acute Plan to address problem: Albuterol inhaler 2 puffs po qid prn for shortness of breath. (5) Cardiomyopathy Current Visit: No Status: Acute Plan to address problem: Management as per cardiology. (6) DVT, bilateral lower limbs Current Visit: No Status: Acute Plan to address problem: Patient is on I/V Heparin. H/O IVC filter. 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 (8) Nicotine dependence unspecified, with withdrawal Current Visit: No Status: Acute Qualifiers: Plan to address problem: Counseled to stop smoking. (9) Obesity hypoventilation syndrome Current Visit: No Status: Acute Plan to address problem: ABGs on room air during day time. Recommend sleep study as out patient. Recommend to loose weight. Recommend not to drive or operate heavy equipment with sleepiness. Avoid alcohol, sedatives and Narcotics. Explained sleep hygiene. (10) Seizure disorder Current Visit: No Status: Acute Plan to address problem: Management as per primary care and neurology. (11) Bipolar disorder Current Visit: No Status: Chronic Qualifiers: Active/Remission status: in remission of unspecified degree Qualified Code(s): F31.70 - Bipolar disorder, currently in remission, most recent episode unspecified Plan to address problem: Management as per primary care and psychiatry. (12) GERD (gastroesophageal reflux disease) Current Visit: No Status: Chronic Qualifiers: Esophagitis presence: without esophagitis Qualified Code(s): K21.9 - Gastro -esophageal reflux disease without esophagitis Plan to address problem: Patient is on Famotidine. (13) Hypothyroidism (acquired) Current Visit: Yes Status: Acute Plan to address problem: Patient has history of thyrotoxicosis. Patient presently is hypothyroid. Patient is on levothyroxine. Subjective Date of service: 06/11/21 Principal diagnosis: Sepsis; Acute P.E.; Chest pain; H/O DVT; Seizures; Hypothyroidism; Obesity Interval history: 40 years old female with past medical history of hypertension, DVT, PE, GERD Hyperthyroidism was brought to the hospital because of chest pain, retrosternal pain, sharp, radiating to back, 10/10, worsened by deep breaths, not relieved by anything, associated with SOB. Denies palpitations, diaphoresis. Endorses bilateral leg swelling, pain in her calves. Denies recent travel, immobilization, surgery, hospitalization, Hormonal contraceptive use. In the emergency room initial CT scan of the chest shows acute bilateral pulmonary thromboemboli with evidence of mild right ventricular strain. Scattered pneumonitis noted throughout the both lungs. Admitted the patient to the medical telemetry put the patient on IV heparin . Ordered echocardiogram Past Surgical History: Other (Left arm surgery 02/2017, Right knee, Rt leg. 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 Patient awake, morbidly Obese, weak. Patient is on room air. Patient suppose to use 2 litres O2. Stressed the importance of using O2 all the time. Patient afebrile. No leukocytosis. Blood pressure 129/63, Pulse 99 , Respirations 20. Patient is on I/V heparin, Po coumadin, cefazolin, famotidine. Objective Vital Signs - 12hr 06/11/21 06/11/21 06/11/21 03:13 04:48 06:07 Temperature 98.7 F Pulse Rate 71 Respiratory 20 20 20 Rate Blood Pressure 145/77 O2 Sat by Pulse 97 Oximetry 06/11/21 09:49 Temperature Pulse Rate 99 H Respiratory Rate Blood Pressure 129/63 O2 Sat by Pulse Oximetry Constitutional: no acute distress, alert, other (elderly morbidly obese female with mildly increased respiratory effort at rest) Eyes: non-icteric ENT: oropharynx moist Neck: supple, no lymphadenopathy, no JVD, other (large neck circumference; RIJ CVL) Effort: mildly labored Ascultation: Bilateral: diminished breath sounds Percussion: Bilateral: not dull Cardiovascular: regular rate and rhythm Gastrointestinal: normoactive bowel sounds, soft, non-tender, other (distended but soft) Integumentary: normal Extremities: no cyanosis, no edema, pulses normal, no ischemia or petechiae Neurologic: non-focal exam (grossly), pupils equal and round, CN II-XII normal Psychiatric: depressed CBC and BMP: 06/10/21 08:31 06/12/21 05:45 ABG, PT/INR, D-dimer: PT/INR, D-dimer PT 16.3 Sec. (12.2-14.9) H 06/11/21 08:25 INR 1.17 (0.87-1.13) H 06/11/21 08:25 Abnormal lab findings: Abnormal Labs 05/29/21 05/29/21 05/29/21 23:24 23:24 23:29 WBC RBC Hgb 8.8 L Hct 28.7 L MCV 74 L MCH 23 L RDW 26.4 H Seg Neuts % (Manual) 75.0 H Lymphocytes % (Manual) Seg Neutrophils # Man Lymphocytes # (Manual) PT INR APTT 20.9 L Heparin Anti-Xa Level Sodium Chloride Carbon Dioxide 20 L Creatinine Calcium Total Protein Albumin 3.5 L TSH Vancomycin Trough Crossmatch 05/30/21 05/30/21 05/30/21 08:25 08:25 13:35 WBC RBC Hgb 8.8 L Hct 27.5 L MCV MCH RDW Seg Neuts % (Manual) Lymphocytes % (Manual) Seg Neutrophils # Man Lymphocytes # (Manual) PT 15.4 H INR APTT 107.1 H* Heparin Anti-Xa Level 0.82 H Sodium Chloride Carbon Dioxide Creatinine Calcium Total Protein Albumin TSH Vancomycin Trough Crossmatch 05/30/21 05/31/21 05/31/21 20:57 06:40 06:40 WBC 13.0 H RBC Hgb 8.9 L Hct 28.5 L MCV 74 L MCH 23 L RDW 25.7 H Seg Neuts % (Manual) 77.0 H Lymphocytes % (Manual) Seg Neutrophils # Man 10.0 H Lymphocytes # (Manual) PT INR APTT 52.6 H Heparin Anti-Xa Level 0.15 L 0.74 H Sodium Chloride Carbon Dioxide Creatinine Calcium Total Protein Albumin TSH Vancomycin Trough Crossmatch 06/01/21 06/01/21 06/02/21 09:55 10:27 06:15 WBC RBC Hgb 9.4 L Hct MCV MCH RDW Seg Neuts % (Manual) Lymphocytes % (Manual) Seg Neutrophils # Man Lymphocytes # (Manual) PT INR APTT Heparin Anti-Xa Level 0.13 L 0.25 L Sodium Chloride Carbon Dioxide Creatinine Calcium Total Protein Albumin TSH Vancomycin Trough Crossmatch 06/02/21 06/03/21 06/04/21 23:30 Unknown 07:39 WBC RBC Hgb 8.5 L Hct 28.0 L MCV MCH RDW Seg Neuts % (Manual) Lymphocytes % (Manual) Seg Neutrophils # Man Lymphocytes # (Manual) PT 15.0 H INR APTT Heparin Anti-Xa Level 0.19 L Sodium Chloride Carbon Dioxide Creatinine Calcium Total Protein Albumin TSH Vancomycin Trough Crossmatch 06/05/21 06/05/21 06/05/21 04:07 04:07 10:40 WBC RBC Hgb 8.4 L Hct 27.3 L MCV MCH RDW Seg Neuts % (Manual) Lymphocytes % (Manual) Seg Neutrophils # Man Lymphocytes # (Manual) PT 17.7 H INR 1.30 H APTT Heparin Anti-Xa Level Sodium Chloride Carbon Dioxide Creatinine Calcium Total Protein Albumin TSH 0.034 L Vancomycin Trough Crossmatch 06/05/21 06/05/21 06/06/21 10:40 11:01 04:00 WBC 14.0 H RBC 3.37 L Hgb 7.5 L Hct 24.8 L MCV 74 L MCH 22 L RDW 25.0 H Seg Neuts % (Manual) 94.0 H Lymphocytes % (Manual) 3.0 L Seg Neutrophils # Man 13.2 H Lymphocytes # (Manual) 0.4 L PT 17.4 H INR 1.27 H APTT Heparin Anti-Xa Level Sodium 135 L Chloride Carbon Dioxide 20 L Creatinine Calcium 7.8 L Total Protein Albumin TSH Vancomycin Trough Crossmatch 06/07/21 06/07/21 06/08/21 12:55 12:55 04:52 WBC RBC Hgb 7.1 L Hct 23.6 L MCV MCH RDW Seg Neuts % (Manual) Lymphocytes % (Manual) Seg Neutrophils # Man Lymphocytes # (Manual) PT 19.7 H INR 1.48 H APTT Heparin Anti-Xa Level Sodium Chloride 116.6 H Carbon Dioxide 18 L Creatinine Calcium 7.4 L Total Protein 4.7 L Albumin 2.7 L TSH Vancomycin Trough Crossmatch 06/08/21 06/09/21 06/09/21 04:52 06:46 06:46 WBC RBC 3.09 L Hgb 6.9 L Hct 22.4 L MCV 72 L MCH 22 L RDW 25.0 H Seg Neuts % (Manual) Lymphocytes % (Manual) Seg Neutrophils # Man Lymphocytes # (Manual) PT INR APTT Heparin Anti-Xa Level < 0.10 L Sodium Chloride Carbon Dioxide Creatinine Calcium Total Protein Albumin TSH Vancomycin Trough 25.1 H Crossmatch 06/09/21 06/10/21 06/10/21 Unknown 08:31 08:31 WBC RBC 3.17 L Hgb 7.1 L Hct 22.9 L MCV 72 L MCH 22 L RDW 25.5 H Seg Neuts % (Manual) 71.0 H Lymphocytes % (Manual) Seg Neutrophils # Man Lymphocytes # (Manual) 1.0 L PT 20.4 H 17.6 H INR 1.54 H 1.29 H APTT Heparin Anti-Xa Level Sodium Chloride Carbon Dioxide Creatinine Calcium Total Protein Albumin TSH Vancomycin Trough Crossmatch 06/10/21 06/10/21 06/11/21 08:31 08:33 08:25 WBC RBC Hgb Hct MCV MCH RDW Seg Neuts % (Manual) Lymphocytes % (Manual) Seg Neutrophils # Man Lymphocytes # (Manual) PT 16.3 H INR 1.17 H APTT Heparin Anti-Xa Level Sodium Chloride 111.3 H Carbon Dioxide 21 L Creatinine 1.4 H Calcium Total Protein 5.7 L D Albumin 3.2 L TSH Vancomycin Trough Crossmatch See Detail Chest x-ray: report reviewed, image reviewed Additional Studies: CHEST 1 VIEW 06/04/2021 7:08 PM INDICATION / CLINICAL INFORMATION: central line placement. COMPARISON: 05/18/21 FINDINGS: SUPPORT DEVICES: Right jugular central line has been placed with the tip projecting over the SVC. HEART / MEDIASTINUM: Heart is normal size. Descending thoracic aorta stent is unchanged. LUNGS / PLEURA: No significant pulmonary or pleural abnormality. No pneumothorax. ADDITIONAL FINDINGS: No significant additional findings. IMPRESSION: 1. Central line in expected position. Allied health notes reviewed: nursing
[2021-06-11] MEDS ORDERED: WARFARIN 7.5 MG TAB PO NR (17:00)
[2021-06-12] MEDS: HEPARIN/ 0.45% NACL DRIP 25,000 UNIT/500 ML BAG IV SCH ×2 (03:48→16:26)
[2021-06-12] MEDS: MORPHINE 2 MG/1 ML INJ IV PRN ×3 (04:12→18:22)
[2021-06-12] MEDS: GABAPENTIN 100 MG CAP PO SCH ×3 (05:12→22:52)
[2021-06-12] MEDS: LEVOTHYROXINE 150 MCG TAB PO SCH (05:12)
[2021-06-12 07:42] LABS: INR 1.16 (0.87-1.13)
--- NOTE | 2021-06-12 08:55 | Progress Note ---
Assessment and Plan Assessment and plan: HPI: 40 years old female with past medical history of hypertension, PE x2, (R lung 05/2016, L lung 01/2017--on coumadin), R leg DVT 03/2017, Graves Disease, heart murmur, aortic dissection, PERICARDITIS, thyroid storm GERD was brought to the hospital because of chest pain, retrosternal, sharp, radiating to back, 10/10, worsened by deep breaths, not relieved by anything, associated with SOB. Denies palpitations, diaphoresis. Endorses bilateral leg swelling, pain in her calves. Denies recent travel, immobilization, surgery, hospitalization, Hormonal contraceptive use. In the emergency room initial CT scan of the chest shows acute bilateral pulmonary thromboemboli with evidence of mild right ventricular restaurant. Scattered pneumonitis noted throughout the both lungs.'s were going to admit the patient to the medical telemetry put the patient on IV heparin we also order echocardiogram Hospital Course: 06/05: Is unclear to me why the patient was transferred to the IMCU as I do not have any clear documentation to the results but in effect I was told by the nurse that the patient had pulled out his for her femoral line and did not have an access. Patient appears to have been having fever for a few days no known etiology we will proceed with a sepsis work-up although closely reviewing her case shows a history of thyroid storm in the past and she has not been receiving her thyroid medication while she does not have confusion at this time she does have tachycardia and tachypnea. We will give her a dose of IV levothyroxine today and start her daily dose of levothyroxine a.m. She has been on her propranolol although her home dose appears confusing as she gets 40 mg once daily and also 20 mg twice a day will discuss with her to clarify this and also with her pharmacy. She did have a right IJ triple-lumen catheter placed yesterday I discussed with her in the setting of well-documented by the nurse that she takes Midol at home which contains acetaminophen she is agreeable to trial acetaminophen as she wants to come off the cooling blanket. I also consulted ID and ordered a urinalysis with urine culture and some fluid support. I reviewed her CT scan and echocardiogram while the CT mentions the pulmonary embolism with mild right heart strain the echo shows a RVSP of 32 mmHg. I will proceed with consulting pulmonary in her case she would definitely need a senior foreman outpatient. She continues on heparin drip while awaiting for therapeutic INR. In the meantime continue with antibiotic Right internal jugular vein triple-lumen catheter placement under ultrasound guidance 06/06: Patient seen and examined, showing some improvement, will follow cultures result, Continue abx, clinical stable, ID input, close eye on Hemoglobin. WBC mildly trended up. will transfer back to [facility]. 06/07: Continue supportive care, awaiting Cultures for ID and sensitivity in the meantime continue antibiotic. Am LABS. Patient continues on heparin drip until INR is therapeutic. I encouraged her to ambulate in her room and also set up on the chair. Cultures for COVID was negative. We will obtain PT OT evaluation. In short summary patient is a 40-year-old female with hypertension pulmonary embolism lower extremity DVT in the past on Coumadin who presented with shortness of breath diagnosed with pulmonary embolism admitted intermittently sepsis doubt septic emboli currently on antibiotics. Restarted on her thyroid medication with no evidence of thyroid storm. 06/08: resting comfortably on encounter. Afebrile today. Vital signs improved. 94% on 3L/min NC. Pain medication appears to be excessive as patient is heavily sedated, will scale back pain medication. D/w cardiology Dr Canseco regarding con cern for endocarditis and possible infected TEVAR graft as potential source of infection. Consult placed for HANK. Will continue to follow culture data. Continue IV vancomycin per ID direction. INR remains subtherapeutic for treatment of DVT/PE but increased to 1.48, will continue warfarin at current dosage and heparin gtt at this time. 06/09: continue therapy for MSSA bacteremia. Awaiting HANK completion. INR 1.54, warfarin 12.5 mg dose given today. Anemic today 6.9, ordered 1 unit prbc. Patient denies any rectal bleeding, bleeding from lines, hematemesis. Suspect anemia of chronic disease and possibly iatrogenic induced from multiple blood draw/line placement attempts. Lower suspicion for occult hematoma but will order CTAP. 06/10: Abx orders noted by ID. INR remains subtherapetuic, did not receive warfarin dose for some apparent reason. Pharmacy will give 15 mg dose today. Occult bleed r/o on ctap. No rectal bleeding reported. Will transfuse 1 unit prbc. Restart heparin gtt. Will follow up results of HANK from today. 06/11: HANK negative for endocarditis. INR subtherapuetic. unfortunately patient has missed last two day of warfarin dosing and inr reflects this. Patient could also be warfarin resistant. Patient needs to be receiving BOTH warfarin and heparin gtt until INR goal of 2.5 achieved. D/w pharmacy, will continue with 15 mg dosing at this time. Continue Iv abx. Discharge plan is for early next week. 06/12: Hypertensive this AM, added amlodipine for better BP control. INR 1.16. Continue heparin gtt while transitioning to warfarin. Plan for discharge early next week. CM working on OP IV abx arrangement. Assessment and Plan: #Sepsis, MSSA bacteremia -patient with Tmax of 102, tachycardic. Etiology unclear, line infection vs endocarditis, infected TEVAR graft. -patient with R femoral central line, ordered to be removed -06/04 bcx: 3/4 bottles MSSA - 06/07 bcx: NGTD - urine culture: NGTD -ancef IV, may need extended abx if bacteremia persists -TTE negative for valvular vegetations - ID following - HANK negative for endocarditis #Hypotension (resolved) -Patient with low blood pressure at night -IVF started -avoid antihypotensives -labetalol currently held #Acute pulmonary embolism #Acute chest pain #History of DVT on warfarin Troponin unremarkable, chest x-ray unremarkable, bilateral lower extremity venous Dopplers unremarkable for acute DVT CT angio chest revealing acute bilateral pulmonary emboli with evidence of right heart strain Home medication of warfarin 7.5 mg daily; however, INR 1.03. Patient endorses being compliant with her anticoagulation. Continue heparin drip and bridged warfarin daily until therapeutic (goal 2.53.5). TTE without evidence of right heart strain Patient needs to be taking BOTH warfarin and heparin until INR goal of 2.5 achieved. #history of mechanical heart valve - goal inr 2.5. #Seizure disorder #Anxiety Continue home medications: Keppra 500 mg twice daily, Quetiapine 100 mg every morning and 300 mg nightly, alprazolam 0.5 mg 3 times daily #History of aortic dissection s/p tevar. #Hypothyroidism -resume home levothyroxine #microcytic anemia -stable Transfuse if hemoglobin less than 7 or patient become symptomatic #Morbid obesity #Weight loss counseling #Exercise counseling - BMI 39.1 - Counseled patient on the importance of weight loss, incorporating exercise, and dietary changes (lean meats, fresh fruits and vegetables, and water intake). Patient expresses understanding. #Advanced care planning -Disease education conducted, care plan discussed, diagnoses discussed, prognosis discussed, and patient acknowledges understanding with care plan -Time: +30 min Total Time Spent with Patient (Minutes): 45 History Interval history: No complaints this AM. Hospitalist Physical - Physical exam Narrative exam: GENERAL: Well-developed well-nourished. In no acute distress. but no re spiratory distress CHEST/LUNGS: CTAB on room air HEART/CARDIOVASCULAR: Regular rate and rhythm. No murmur, rubs or gallops appreciated. ABDOMEN: +BS. NT/ND. SKIN: No rashes noted. : Right IJ cath in place NEURO: No focal motor deficit. MUSCULOSKELETAL: No joint effusion, WARM TO TOUGH EXTREMITIES: No cyanosis, clubbing or trace edema. PSYCH: Cooperative. - Constitutional Vitals: Temp Pulse Resp BP Pulse Ox 97.9 F 58 L 20 168/82 95 06/12/21 04:59 06/12/21 04:59 06/12/21 04:59 06/12/21 04:59 06/12/21 04:59 General appearance: Present: no acute distress, well-nourished HEART Score - HEART Score Troponin: Troponin T < 0.010 ng/mL (0.00-0.029) 05/30/21 04:46 Results - Labs CBC & Chem 7: 06/10/21 08:31 06/12/21 05:45 Labs: Laboratory Last Values WBC 5.8 K/mm3 (4.5-11.0) 06/10/21 08:31 RBC 3.17 M/mm3 (3.65-5.03) L 06/10/21 08:31 Hgb 7.1 gm/dl (10.1-14.3) L 06/10/21 08:31 Hct 22.9 % (30.3-42.9) L 06/10/21 08:31 MCV 72 fl (79-97) L 06/10/21 08:31 MCH 22 pg (28-32) L 06/10/21 08:31 MCHC 31 % (30-34) 06/10/21 08:31 RDW 25.5 % (13.2-15.2) H 06/10/21 08:31 Plt Count 351 K/mm3 (140-440) 06/10/21 08:31 Add Manual Diff Complete 06/10/21 08:31 Total Counted 100 06/10/21 08:31 Seg Neuts % (Manual) 71.0 % (40.0-70.0) H 06/10/21 08:31 Band Neutrophils % 1.0 % 06/10/21 08:31 Lymphocytes % (Manual) 17.0 % (13.4-35.0) 06/10/21 08:31 Reactive Lymphs % (Man) 1.0 % 06/10/21 08:31 Monocytes % (Manual) 5.0 % (0.0-7.3) 06/10/21 08:31 Eosinophils % (Manual) 4.0 % (0.0-4.3) 06/10/21 08:31 Basophils % (Manual) 1.0 % (0.0-1.8) 06/10/21 08:31 Metamyelocytes % 0 % 06/10/21 08:31 Myelocytes % 0 % 06/10/21 08:31 Promyelocytes % 0 % 06/10/21 08:31 Blast Cells % 0 % 06/10/21 08:31 Nucleated RBC % Not Reportable 06/10/21 08:31 Seg Neutrophils # Man 4.1 K/mm3 (1.8-7.7) 06/10/21 08:31 Band Neutrophils # 0.1 K/mm3 06/10/21 08:31 Lymphocytes # (Manual) 1.0 K/mm3 (1.2-5.4) L 06/10/21 08:31 Abs React Lymphs (Man) 0.1 K/mm3 06/10/21 08:31 Monocytes # (Manual) 0.3 K/mm3 (0.0-0.8) 06/10/21 08:31 Eosinophils # (Manual) 0.2 K/mm3 (0.0-0.4) 06/10/21 08:31 Basophils # (Manual) 0.1 K/mm3 (0.0-0.1) 06/10/21 08:31 Metamyelocytes # 0.0 K/mm3 06/10/21 08:31 Myelocytes # 0.0 K/mm3 06/10/21 08:31 Promyelocytes # 0.0 K/mm3 06/10/21 08:31 Blast Cells # 0.0 K/mm3 06/10/21 08:31 WBC Morphology Not Reportable 06/10/21 08:31 Hypersegmented Neuts Not Reportable 06/10/21 08:31 Hyposegmented Neuts Not Reportable 06/10/21 08:31 Hypogranular Neuts Not Reportable 06/10/21 08:31 Smudge Cells Not Reportable 06/10/21 08:31 Toxic Granulation Not Reportable 06/10/21 08:31 Toxic Vacuolation Not Reportable 06/10/21 08:31 Dohle Bodies Not Reportable 06/10/21 08:31 Pelger-Huet Anomaly Not Reportable 06/10/21 08:31 Jaime Rods Not Reportable 06/10/21 08:31 Platelet Estimate Consistent w auto 06/10/21 08:31 Clumped Platelets Not Reportable 06/10/21 08:31 Plt Clumps, EDTA Not Reportable 06/10/21 08:31 Large Platelets Not Reportable 06/10/21 08:31 Giant Platelets Not Reportable 06/10/21 08:31 Platelet Satelliting Not Reportable 06/10/21 08:31 Plt Morphology Comment Not Reportable 06/10/21 08:31 RBC Morphology Not Reportable 06/10/21 08:31 Dimorphic RBCs Not Reportable 06/10/21 08:31 Polychromasia 1+ 06/10/21 08:31 Hypochromasia Not Reportable 06/10/21 08:31 Poikilocytosis 2+ 06/10/21 08:31 Anisocytosis 2+ 06/10/21 08:31 Microcytosis Not Reportable 06/10/21 08:31 Macrocytosis Not Reportable 06/10/21 08:31 Spherocytes 1+ 06/10/21 08:31 Pappenheimer Bodies Not Reportable 06/10/21 08:31 Sickle Cells Not Reportable 06/10/21 08:31 Target Cells 1+ 06/10/21 08:31 Tear Drop Cells Not Reportable 06/10/21 08:31 Ovalocytes 1+ 06/10/21 08:31 Helmet Cells Not Reportable 06/10/21 08:31 [place] Bodies Not Reportable 06/10/21 08:31 [place] Rings Not Reportable 06/10/21 08:31 Tricia Cells Not Reportable 06/10/21 08:31 Bite Cells Not Reportable 06/10/21 08:31 Crenated Cell Not Reportable 06/10/21 08:31 Elliptocytes Not Reportable 06/10/21 08:31 Acanthocytes (Spur) Not Reportable 06/10/21 08:31 Rouleaux Not Reportable 06/10/21 08:31 Hemoglobin C Crystals Not Reportable 06/10/21 08:31 Schistocytes Not Reportable 06/10/21 08:31 Malaria parasites Not Reportable 06/10/21 08:31 Koffi Bodies Not Reportable 06/10/21 08:31 Hem Pathologist Commnt No 06/10/21 08:31 PT 16.1 Sec. (12.2-14.9) H 06/12/21 05:45 INR 1.16 (0.87-1.13) H 06/12/21 05:45 APTT 52.6 Sec. (24.2-36.6) H 05/31/21 06:40 Heparin Anti-Xa Level 0.34 U.I./ml (0.3-0.7) 06/11/21 08:25 Sodium 144 mmol/L (137-145) 06/10/21 08:31 Potassium 4.6 mmol/L (3.6-5.0) D 06/10/21 08:31 Chloride 111.3 mmol/L (98-107) H 06/10/21 08:31 Carbon Dioxide 21 mmol/L (22-30) L 06/10/21 08:31 Anion Gap 16 mmol/L 06/10/21 08:31 BUN 9 mg/dL (7-17) 06/10/21 08:31 Creatinine 1.3 mg/dL (0.6-1.2) H 06/12/21 05:45 Estimated GFR 55 ml/min 06/12/21 05:45 BUN/Creatinine Ratio 6 % 06/10/21 08:31 Glucose 81 mg/dL (65-100) 06/10/21 08:31 Lactic Acid 0.70 mmol/L (0.7-2.0) 06/05/21 10:40 Calcium 8.5 mg/dL (8.4-10.2) 06/10/21 08:31 Total Bilirubin < 0.20 mg/dL (0.1-1.2) 06/10/21 08:31 AST 10 units/L (5-40) 06/10/21 08:31 ALT 9 units/L (7-56) 06/10/21 08:31 Alkaline Phosphatase 84 units/L (35-129) 06/10/21 08:31 Troponin T < 0.010 ng/mL (0.00-0.029) 05/30/21 04:46 Total Protein 5.7 g/dL (6.3-8.2) L D 06/10/21 08:31 Albumin 3.2 g/dL (3.9-5) L 06/10/21 08:31 Albumin/Globulin Ratio 1.3 % 06/10/21 08:31 Lipase 31 units/L (13-60) 05/30/21 04:41 TSH 0.034 mlU/mL (0.270-4.200) L 06/05/21 10:40 Free T4 1.29 ng/dL (0.76-1.46) 06/05/21 10:40 HCG, Qual Negative (Negative) 05/29/21 23:24 Urine Color Yellow (Yellow) 06/05/21 12:20 Urine Turbidity Slightly-cloudy (Clear) 06/05/21 12:20 Urine pH 6.0 (5.0-7.0) 06/05/21 12:20 Ur Specific Freedom 1.004 (1.003-1.030) 06/05/21 12:20 Urine Protein <15 mg/dl mg/dL (Negative) 06/05/21 12:20 Urine Glucose (UA) Neg mg/dL (Negative) 06/05/21 12:20 Urine Ketones Neg mg/dL (Negative) 06/05/21 12:20 Urine Blood Mod (Negative) 06/05/21 12:20 Urine Nitrite Neg (Negative) 06/05/21 12:20 Urine Bilirubin Neg (Negative) 06/05/21 12:20 Urine Urobilinogen < 2.0 mg/dL (<2.0) 06/05/21 12:20 Ur Leukocyte Esterase Neg (Negative) 06/05/21 12:20 Urine WBC (Auto) 2.0 /HPF (0.0-6.0) 06/05/21 12:20 Urine RBC (Auto) 37.0 /HPF (0.0-6.0) 06/05/21 12:20 U Epithel Cells (Auto) 3.0 /HPF (0-13.0) 06/05/21 12:20 Urine Bacteria (Auto) 4+ /HPF (Negative) 06/05/21 12:20 Urine Mucus Few /HPF 06/05/21 12:20 Vancomycin Trough 25.1 ug/mL (5.0-20.0) H 06/08/21 04:52 LAURA Screen Negative (Negative) 06/05/21 15:10 Coronavirus (PCR) Negative (Negative) 06/05/21 07:26 Influenza A (Rapid) Negative (Negative) 06/05/21 14:06 Influenza A (RT-PCR) Negative (Negative) 06/05/21 14:06 Influenza B (Rapid) Negative (Negative) 06/05/21 14:06 Influenza B (RT-PCR) Negative (Negative) 06/05/21 14:06 Blood Type B POSITIVE 06/10/21 08:33 Antibody Screen Negative 06/10/21 08:33 Crossmatch See Detail 06/10/21 08:33 Microbiology: Microbiology 06/07/21 15:47 Peripheral/Venous Blood Culture - Preliminary NO GROWTH AFTER 4 DAYS 06/07/21 15:47 Peripheral/Venous Blood Culture - Preliminary NO GROWTH AFTER 4 DAYS Rojas/IV: Voiding Method Bedside Commode Active Medications - Current Medications Current Medications: Generic Name Dose Route Start Last Admin Trade Name Freq PRN Reason Stop Dose Admin Albuterol 2.5 mg 05/30/21 05:14 Albuterol 2.5 Mg/3 Ml Nebu IH Q3HRT PRN Shortness Of Breath Alprazolam 0.5 mg 06/09/21 08:00 06/11/21 21:05 Alprazolam 0.5 Mg Tab PO 0.5 mg BID ELLOITT Administration Aspirin 81 mg 05/30/21 10:00 06/11/21 09:15 Aspirin Ec 81 Mg Tab PO 81 mg QDAY ELLIOTT Administration Famotidine 20 mg 05/30/21 10:00 06/11/21 21:04 Famotidine 20 Mg Tab PO 20 mg BID ELLIOTT Administration Gabapentin 100 mg 06/10/21 22:00 06/12/21 05:12 Gabapentin 100 Mg Cap PO 100 mg Q8HR ELLIOTT Administration Heparin Sodium (Porcine) 4,500 unit 06/03/21 09:46 Heparin 10,000 Units/10 Ml Vial 40 unit/kg (4500 unit) IV Q6H PRN Anti-Xa Assay < 0.1 units/ml Heparin Sodium/Sodium Chloride 25,000 unit in 500 mls @ 30 mls/hr 06/03/21 10:00 06/12/21 03:48 Heparin/ 0.45% Nacl-25,000 Unit/500 Ml IV 1,900 units/hr TITR ELLIOTT 38 mls/hr Administration Protocol 1,500 UNITS/HR Cefazolin Sodium 2 gm/ Sodium 100 mls @ 200 mls/hr 06/08/21 12:00 06/12/21 05:12 Chloride IV 07/19/21 18:29 200 mls/hr Q6HR ELLIOTT Administration Protocol Levetiracetam 500 mg 05/30/21 10:00 06/11/21 21:03 Levetiracetam 500 Mg Tab PO 500 mg BID ELLIOTT Administration Levothyroxine Sodium 150 mcg 06/06/21 06:00 06/12/21 05:12 Levothyroxine 150 Mcg Tab PO 150 mcg DAILY@0600 ELLIOTT Administration Morphine Sulfate 2 mg 06/03/21 09:30 06/12/21 04:12 Morphine 2 Mg/1 Ml Inj IV 2 mg Q8H PRN Administration Pain, Moderate (4-6) Ondansetron HCl 4 mg 06/05/21 08:00 06/10/21 10:46 Ondansetron 4 Mg/2 Ml Inj IV 4 mg Q4H PRN Administration Nausea And Vomiting Propranolol HCl 40 mg 05/30/21 10:00 06/11/21 21:20 Propranolol 40 Mg Tab PO 40 mg BID ELLIOTT Administration Quetiapine Fumarate 100 mg 05/30/21 10:00 06/11/21 09:15 Quetiapine 100 Mg Tab PO 100 mg QAM ELLIOTT Administration Sodium Chloride 10 ml 05/30/21 10:00 06/11/21 21:06 Sodium Chloride 0.9% 10 Ml Flush Syringe IV 10 ml BID ELLIOTT Administration Sodium Chloride 10 ml 05/30/21 05:14 Sodium Chloride 0.9% 10 Ml Flush Syringe IV PRN PRN LINE FLUSH Tramadol HCl 100 mg 06/09/21 08:00 06/11/21 22:55 Tramadol 50 Mg Tab PO 100 mg BID ELLIOTT Administration Warfarin Sodium 15 mg 06/11/21 17:00 06/11/21 17:30 Warfarin 7.5 Mg Tab PO 06/12/21 16:59 15 mg ONCE@1700 NR Administration Warfarin Sodium 15 mg 06/12/21 17:00 Warfarin 5 Mg Tab PO 06/13/21 16:59 ONCE@1700 NR Nutrition/Malnutrition Assess - Dietary Evaluation Nutrition/Malnutrition Findings: Nutrition Notes Start: 05/31/21 12:39 Freq: Status: Active Protocol: Document 06/07/21 18:49 JAMES (Rec: 06/07/21 19:06 JAMES [id number]) Nutrition Notes Initial or Follow up Reassessment Current Diagnosis Sepsis,Hypertension Other Pertinent Diagnosis LE DVT, Bilateral Pulmonary Thromboembolism, R-Ventricular Strain, Pericard Current Diet Cardiac Diet (since B 05/30). Labs/Tests 06/07: Na 135, CO2 20, Ca 7.8. Pertinent Medications 06/07: Levothyroxine, Warfarin 12.5 mg, others nutritionally unremarkable. Height 5 ft 7 in Weight 111 kg Busy Body Weight (kg) 61.36 BMI 38.3 Weight change and time frame No body weight change reported in 1 week. Weight Status Obese Subjective/Other Information RD consult for routine F/U on dietary advancement. Pt's PO intake of meals has been Good (75%), according to ADL notes. Pt ois on Room Air, O2 saturation @ 98%, according to Vital Signs notes. Percent of energy/protein needs met: Prescribed Cardiac Diet provides for energy/protein needs (2,230 Kcal/85 g) during LOS. Burn Absent Trauma Absent GI Symptoms None Food Allergy Yes Skin Integrity/Comment Assessment WNL. Current % PO Good (75-100%) Minimum of two criteria No Is patient on ventilator? No Is Patient Ambulatory and/or Out of Bed Yes REE-([place] or-ambulatory/OOB) [ 2356.419 [id number]] Kcal/Kg value to use for calculation 16 Approximate Energy Requirements Using 1776 kcal/Kg Calculation Used for Recommendations Kcal/kg Additional Notes Protein: 0.8-1 g/Kg AdjBW; 68- 86 g/day. Fluids: 1 ml/Kcal, or as per MD. Nutrition Intervention Change Diet Order: Continue Cardiac Diet. Follow-Up By: 06/14/21 Additional Comments Continue monitoring food tolerance, %PO intake of meals , and BM.
[2021-06-12] MEDS: QUEtiapine 100 MG TAB PO SCH (09:05)
[2021-06-12] MEDS: levETIRAcetam 500 MG TAB PO SCH ×2 (09:05→22:51)
[2021-06-12] MEDS: traMADol 50 MG TAB PO SCH ×2 (09:05→22:49)
[2021-06-12] MEDS: ASPIRIN EC 81 MG TAB PO SCH (09:05)
[2021-06-12] MEDS: FAMOTIDINE 20 MG TAB PO SCH ×2 (09:05→22:51)
[2021-06-12] MEDS: ALPRAZolam 0.5 MG TAB PO SCH ×2 (09:05→22:50)
[2021-06-12] MEDS: amLODIPine 10 MG TAB PO SCH (09:09)
[2021-06-12] MEDS: PROPRANOLOL 40 MG TAB PO SCH ×2 (09:09→23:33)
--- NOTE | 2021-06-12 12:02 | Progress Note ---
Assessment and Plan Sepsis MSSA Bacteremia Acute pulmonary embolism Acute chest pain History of DVT on warfarin Seizure disorder Anxiety Hypothyroidism microcytic anemia Morbid obesity Hypotension (Resolved) - continue Warfarin; target INR 2.0 to 3.0 - continue to trend H&H prn - PRBC transfusions for serum Hb < 7.0 g/dl - s/p Ancef re: MSSA - HANK negative for vegetations / endocarditis - continue care as below otherwise; - continue full anticoagulation with IV Heparin - follow H&H closely - continue vancomycin; de-escalate per ID recommendations - continue Keppra as AED - continue thyroid replacement therapy - follow clinically re: fever curves / trend WBC - supplemental oxygen to keep O2 sats > 90% - bronchodilators (ALVERTO) with pulm hygiene per RT - continue to avoid nephrotoxins, renally dose all medications - continue mobility protocols to prevent pressure ulcers - PT/OT as tolerated - Wound care per RN/WCT - continue accuchecks with glycemic control per SSI for target blood glucose < 180 mg/dL - tobacco abstinence strongly counseled at the bedside - home oxygen evaluation at discharge - prn analgesia per pain score - GI prophylaxis with Pepcid - Flu & pneumovax per protocol - Pulmonary out patient follow up for PFTs and optimization of respiratory status - life style modifications counseled re: weight loss, better medication compliance - continue other care per attending / other consultants ... re-evaluate in am & prn Subjective Date of service: 06/12/21 Principal diagnosis: Sepsis; Acute P.E.; Chest pain; H/O DVT; Seizures; Hy pothyroidism; Obesity Interval history: Patient is seen today for: Sepsis; Acute pulmonary embolism; Acute chest pain; H/O DVT; Seizure disorder; Hypothyroidism; Anemia; Morbid obesity; Hypotension (Resolved); MSSA Bacteremia Seen and examined at bedside; 24hour events reviewed; nursing and respiratory care staff consulted; no adverse overnight events reported to me; resting in bed; resting peacefully in bed; INR still sub-therapeutic; she denies acute chest pains or palpitations; she denies hemoptysis, hematuria or any other bl eeding Objective Vital Signs - 12hr 06/12/21 06/12/21 06/12/21 01:55 04:59 11:07 Temperature 97.9 F 97.9 F Pulse Rate 58 L 72 Respiratory 20 18 Rate Blood Pressure 168/82 123/62 [Right] O2 Sat by Pulse 98 95 94 Oximetry Constitutional: no acute distress, alert, other (elderly morbidly obese female without increased respiratory effort at rest) Eyes: non-icteric ENT: oropharynx moist Neck: supple, no lymphadenopathy, no JVD, other (large neck circumference; RIJ CVL) Effort: mildly labored Ascultation: Bilateral: clear, diminished breath sounds Percussion: Bilateral: not dull Cardiovascular: regular rate and rhythm Gastrointestinal: normoactive bowel sounds, soft, non-tender, other (distended but soft) Integumentary: normal Extremities: no cyanosis, no edema, pulses normal, no ischemia or petechiae Neurologic: non-focal exam (grossly), pupils equal and round, CN II-XII normal, motor strength normal and Psychiatric: mood appropriate, affect normal CBC and BMP: 06/10/21 08:31 06/12/21 05:45 ABG, PT/INR, D-dimer: PT/INR, D-dimer PT 16.1 Sec. (12.2-14.9) H 06/12/21 05:45 INR 1.16 (0.87-1.13) H 06/12/21 05:45 Abnormal lab findings: Abnormal Labs 05/29/21 05/29/21 05/29/21 23:24 23:24 23:29 WBC RBC Hgb 8.8 L Hct 28.7 L MCV 74 L MCH 23 L RDW 26.4 H Seg Neuts % (Manual) 75.0 H Lymphocytes % (Manual) Seg Neutrophils # Man Lymphocytes # (Manual) PT INR APTT 20.9 L Heparin Anti-Xa Level Sodium Chloride Carbon Dioxide 20 L Creatinine Calcium Total Protein Albumin 3.5 L TSH Vancomycin Trough Crossmatch 05/30/21 05/30/21 05/30/21 08:25 08:25 13:35 WBC RBC Hgb 8.8 L Hct 27.5 L MCV MCH RDW Seg Neuts % (Manual) Lymphocytes % (Manual) Seg Neutrophils # Man Lymphocytes # (Manual) PT 15.4 H INR APTT 107.1 H* Heparin Anti-Xa Level 0.82 H Sodium Chloride Carbon Dioxide Creatinine Calcium Total Protein Albumin TSH Vancomycin Trough Crossmatch 05/30/21 05/31/21 05/31/21 20:57 06:40 06:40 WBC 13.0 H RBC Hgb 8.9 L Hct 28.5 L MCV 74 L MCH 23 L RDW 25.7 H Seg Neuts % (Manual) 77.0 H Lymphocytes % (Manual) Seg Neutrophils # Man 10.0 H Lymphocytes # (Manual) PT INR APTT 52.6 H Heparin Anti-Xa Level 0.15 L 0.74 H Sodium Chloride Carbon Dioxide Creatinine Calcium Total Protein Albumin TSH Vancomycin Trough Crossmatch 06/01/21 06/01/21 06/02/21 09:55 10:27 06:15 WBC RBC Hgb 9.4 L Hct MCV MCH RDW Seg Neuts % (Manual) Lymphocytes % (Manual) Seg Neutrophils # Man Lymphocytes # (Manual) PT INR APTT Heparin Anti-Xa Level 0.13 L 0.25 L Sodium Chloride Carbon Dioxide Creatinine Calcium Total Protein Albumin TSH Vancomycin Trough Crossmatch 06/02/21 06/03/21 06/04/21 23:30 Unknown 07:39 WBC RBC Hgb 8.5 L Hct 28.0 L MCV MCH RDW Seg Neuts % (Manual) Lymphocytes % (Manual) Seg Neutrophils # Man Lymphocytes # (Manual) PT 15.0 H INR APTT Heparin Anti-Xa Level 0.19 L Sodium Chloride Carbon Dioxide Creatinine Calcium Total Protein Albumin TSH Vancomycin Trough Crossmatch 06/05/21 06/05/21 06/05/21 04:07 04:07 10:40 WBC RBC Hgb 8.4 L Hct 27.3 L MCV MCH RDW Seg Neuts % (Manual) Lymphocytes % (Manual) Seg Neutrophils # Man Lymphocytes # (Manual) PT 17.7 H INR 1.30 H APTT Heparin Anti-Xa Level Sodium Chloride Carbon Dioxide Creatinine Calcium Total Protein Albumin TSH 0.034 L Vancomycin Trough Crossmatch 06/05/21 06/05/21 06/06/21 10:40 11:01 04:00 WBC 14.0 H RBC 3.37 L Hgb 7.5 L Hct 24.8 L MCV 74 L MCH 22 L RDW 25.0 H Seg Neuts % (Manual) 94.0 H Lymphocytes % (Manual) 3.0 L Seg Neutrophils # Man 13.2 H Lymphocytes # (Manual) 0.4 L PT 17.4 H INR 1.27 H APTT Heparin Anti-Xa Level Sodium 135 L Chloride Carbon Dioxide 20 L Creatinine Calcium 7.8 L Total Protein Albumin TSH Vancomycin Trough Crossmatch 06/07/21 06/07/21 06/08/21 12:55 12:55 04:52 WBC RBC Hgb 7.1 L Hct 23.6 L MCV MCH RDW Seg Neuts % (Manual) Lymphocytes % (Manual) Seg Neutrophils # Man Lymphocytes # (Manual) PT 19.7 H INR 1.48 H APTT Heparin Anti-Xa Level Sodium Chloride 116.6 H Carbon Dioxide 18 L Creatinine Calcium 7.4 L Total Protein 4.7 L Albumin 2.7 L TSH Vancomycin Trough Crossmatch 06/08/21 06/09/21 06/09/21 04:52 06:46 06:46 WBC RBC 3.09 L Hgb 6.9 L Hct 22.4 L MCV 72 L MCH 22 L RDW 25.0 H Seg Neuts % (Manual) Lymphocytes % (Manual) Seg Neutrophils # Man Lymphocytes # (Manual) PT INR APTT Heparin Anti-Xa Level < 0.10 L Sodium Chloride Carbon Dioxide Creatinine Calcium Total Protein Albumin TSH Vancomycin Trough 25.1 H Crossmatch 06/09/21 06/10/21 06/10/21 Unknown 08:31 08:31 WBC RBC 3.17 L Hgb 7.1 L Hct 22.9 L MCV 72 L MCH 22 L RDW 25.5 H Seg Neuts % (Manual) 71.0 H Lymphocytes % (Manual) Seg Neutrophils # Man Lymphocytes # (Manual) 1.0 L PT 20.4 H 17.6 H INR 1.54 H 1.29 H APTT Heparin Anti-Xa Level Sodium Chloride Carbon Dioxide Creatinine Calcium Total Protein Albumin TSH Vancomycin Trough Crossmatch 06/10/21 06/10/21 06/11/21 08:31 08:33 08:25 WBC RBC Hgb Hct MCV MCH RDW Seg Neuts % (Manual) Lymphocytes % (Manual) Seg Neutrophils # Man Lymphocytes # (Manual) PT 16.3 H INR 1.17 H APTT Heparin Anti-Xa Level Sodium Chloride 111.3 H Carbon Dioxide 21 L Creatinine 1.4 H Calcium Total Protein 5.7 L D Albumin 3.2 L TSH Vancomycin Trough Crossmatch See Detail 06/12/21 06/12/21 05:45 05:45 WBC RBC Hgb Hct MCV MCH RDW Seg Neuts % (Manual) Lymphocytes % (Manual) Seg Neutrophils # Man Lymphocytes # (Manual) PT 16.1 H INR 1.16 H APTT Heparin Anti-Xa Level Sodium Chloride Carbon Dioxide Creatinine 1.3 H Calcium Total Protein Albumin TSH Vancomycin Trough Crossmatch Allied health notes reviewed: nursing
[2021-06-12] MEDS ORDERED: WARFARIN 2.5 MG TAB PO NR (17:00)
[2021-06-12] MEDS ORDERED: WARFARIN 5 MG TAB PO NR (17:00)
[2021-06-13] MEDS: MORPHINE 2 MG/1 ML INJ IV PRN ×3 (02:08→21:48)
[2021-06-13] MEDS ORDERED: traMADol 50 MG TAB PO ONE (04:08)
[2021-06-13] MEDS: HEPARIN/ 0.45% NACL DRIP 25,000 UNIT/500 ML BAG IV SCH (05:08)
[2021-06-13] MEDS: GABAPENTIN 100 MG CAP PO SCH ×3 (05:42→21:47)
[2021-06-13] MEDS: LEVOTHYROXINE 150 MCG TAB PO SCH (05:42)
[2021-06-13 06:26] LABS: INR 1.03 (0.87-1.13)
--- NOTE | 2021-06-13 08:46 | Progress Note ---
Assessment and Plan Assessment and plan: HPI: 40 years old female with past medical history of hypertension, PE x2, (R lung 05/2016, L lung 01/2017--on coumadin), R leg DVT 03/2017, Graves Disease, heart murmur, aortic dissection, PERICARDITIS, thyroid storm GERD was brought to the hospital because of chest pain, retrosternal, sharp, radiating to back, 10/10, worsened by deep breaths, not relieved by anything, associated with SOB. Denies palpitations, diaphoresis. Endorses bilateral leg swelling, pain in her calves. Denies recent travel, immobilization, surgery, hospitalization, Hormonal contraceptive use. In the emergency room initial CT scan of the chest shows acute bilateral pulmonary thromboemboli with evidence of mild right ventricular restaurant. Scattered pneumonitis noted throughout the both lungs.'s were going to admit the patient to the medical telemetry put the patient on IV heparin we also order echocardiogram Hospital Course: 06/05: Is unclear to me why the patient was transferred to the IMCU as I do not have any clear documentation to the results but in effect I was told by the nurse that the patient had pulled out his for her femoral line and did not have an access. Patient appears to have been having fever for a few days no known etiology we will proceed with a sepsis work-up although closely reviewing her case shows a history of thyroid storm in the past and she has not been receiving her thyroid medication while she does not have confusion at this time she does have tachycardia and tachypnea. We will give her a dose of IV levothyroxine today and start her daily dose of levothyroxine a.m. She has been on her propranolol although her home dose appears confusing as she gets 40 mg once daily and also 20 mg twice a day will discuss with her to clarify this and also with her pharmacy. She did have a right IJ triple-lumen catheter placed yesterday I discussed with her in the setting of well-documented by the nurse that she takes Midol at home which contains acetaminophen she is agreeable to trial acetaminophen as she wants to come off the cooling blanket. I also consulted ID and ordered a urinalysis with urine culture and some fluid support. I reviewed her CT scan and echocardiogram while the CT mentions the pulmonary embolism with mild right heart strain the echo shows a RVSP of 32 mmHg. 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 She continues on heparin drip while awaiting for therapeutic INR. In the meantime continue with antibiotic Right internal jugular vein triple-lumen catheter placement under ultrasound guidance 06/06: Patient seen and examined, showing some improvement, will follow cultures result, Continue abx, clinical stable, ID input, close eye on Hemoglobin. WBC mildly trended up. will transfer back to [facility]. 06/07: Continue supportive care, awaiting Cultures for ID and sensitivity in the meantime continue antibiotic. Am LABS. Patient continues on heparin drip until INR is therapeutic. I encouraged her to ambulate in her room and also set up on the chair. Cultures for COVID was negative. We will obtain PT OT evaluation. In short summary patient is a 40-year-old female with hypertension pulmonary embolism lower extremity DVT in the past on Coumadin who presented with shortness of breath diagnosed with pulmonary embolism admitted intermittently sepsis doubt septic emboli currently on antibiotics. Restarted on her thyroid medication with no evidence of thyroid storm. 06/08: resting comfortably on encounter. Afebrile today. Vital signs improved. 94% on 3L/min NC. Pain medication appears to be excessive as patient is heavily sedated, will scale back pain medication. D/w cardiology Dr Canseco regarding con cern for endocarditis and possible infected TEVAR graft as potential source of infection. Consult placed for HANK. Will continue to follow culture data. Continue IV vancomycin per ID direction. INR remains subtherapeutic for treatment of DVT/PE but increased to 1.48, will continue warfarin at current dosage and heparin gtt at this time. 06/09: continue therapy for MSSA bacteremia. Awaiting HANK completion. INR 1.54, warfarin 12.5 mg dose given today. Anemic today 6.9, ordered 1 unit prbc. Patient denies any rectal bleeding, bleeding from lines, hematemesis. Suspect anemia of chronic disease and possibly iatrogenic induced from multiple blood draw/line placement attempts. Lower suspicion for occult hematoma but will order CTAP. 06/10: Abx orders noted by ID. INR remains subtherapetuic, did not receive warfarin dose for some apparent reason. Pharmacy will give 15 mg dose today. Occult bleed r/o on ctap. No rectal bleeding reported. Will transfuse 1 unit prbc. Restart heparin gtt. Will follow up results of HANK from today. 06/11: HANK negative for endocarditis. INR subtherapuetic. unfortunately patient has missed last two day of warfarin dosing and inr reflects this. Patient could also be warfarin resistant. Patient needs to be receiving BOTH warfarin and heparin gtt until INR goal of 2.5 achieved. D/w pharmacy, will continue with 15 mg dosing at this time. Continue Iv abx. Discharge plan is for early next week. 06/12: Hypertensive this AM, added amlodipine for better BP control. INR 1.16. Continue heparin gtt while transitioning to warfarin. Plan for discharge early next week. CM working on OP IV abx arrangement. 06/13: Continue heparin gtt and warfarin. INR remains subtherapeutic. Assessment and Plan: #Sepsis, MSSA bacteremia -patient with Tmax of 102, tachycardic. Etiology unclear, line infection vs endocarditis, infected TEVAR graft. -patient with R femoral central line, ordered to be removed -06/04 bcx: 04/23 bottles MSSA - 06/07 bcx: NGTD - urine culture: NGTD -ancef IV, may need extended abx if bacteremia persists -TTE negative for valvular vegetations - ID following - HANK negative for endocarditis #Hypotension (resolved) -Patient with low blood pressure at night -IVF started -avoid antihypotensives -labetalol currently held #Acute pulmonary embolism #Acute chest pain #History of DVT on warfarin Troponin unremarkable, chest x-ray unremarkable, bilateral lower extremity venous Dopplers unremarkable for acute DVT CT angio chest revealing acute bilateral pulmonary emboli with evidence of right heart strain Home medication of warfarin 7.5 mg daily; however, INR 1.03. Patient endorses being compliant with her anticoagulation. Continue heparin drip and bridged warfarin daily until therapeutic (goal 2.53.5). TTE without evidence of right heart strain Patient needs to be taking BOTH warfarin and heparin until INR goal of 2.5 achieved. #history of mechanical heart valve - goal inr 2.5. #Seizure disorder #Anxiety Continue home medications: Keppra 500 mg twice daily, Quetiapine 100 mg every morning and 300 mg nightly, alprazolam 0.5 mg 3 times daily #History of aortic dissection s/p tevar. #Hypothyroidism -resume home levothyroxine #microcytic anemia -stable Transfuse if hemoglobin less than 7 or patient become symptomatic #Morbid obesity #Weight loss counseling #Exercise counseling - BMI 39.1 - Counseled patient on the importance of weight loss, incorporating exercise, and dietary changes (lean meats, fresh fruits and vegetables, and water intake). Patient expresses understanding. #Advanced care planning -Disease education conducted, care plan discussed, diagnoses discussed, prognosis discussed, and patient acknowledges understanding with care plan -Time: +30 min History Interval history: NO acute complaints. Hospitalist Physical - Physical exam Narrative exam: GENERAL: Well-developed well-nourished. In no acute distress. but no respiratory distress CHEST/LUNGS: CTAB on room air HEART/CARDIOVASCULAR: Regular rate and rhythm. No murmur, rubs or gallops appreciated. ABDOMEN: +BS. NT/ND. SKIN: No rashes noted. : Right IJ cath in place NEURO: No focal motor deficit. MUSCULOSKELETAL: No joint effusion, WARM TO TOUGH EXTREMITIES: No cyanosis, clubbing or trace edema. PSYCH: Cooperative. - Constitutional Vitals: Temp Pulse Resp BP Pulse Ox 97.9 F 59 L 14 152/89 97 06/13/21 04:44 06/13/21 04:44 06/13/21 04:44 06/13/21 04:44 06/13/21 04:44 General appearance: Present: no acute distress, well-nourished HEART Score - HEART Score Troponin: Troponin T < 0.010 ng/mL (0.00-0.029) 05/30/21 04:46 Results - Labs CBC & Chem 7: 06/10/21 08:31 06/12/21 05:45 Labs: Laboratory Last Values WBC 5.8 K/mm3 (4.5-11.0) 06/10/21 08:31 RBC 3.17 M/mm3 (3.65-5.03) L 06/10/21 08:31 Hgb 7.1 gm/dl (10.1-14.3) L 06/10/21 08:31 Hct 22.9 % (30.3-42.9) L 06/10/21 08:31 MCV 72 fl (79-97) L 06/10/21 08:31 MCH 22 pg (28-32) L 06/10/21 08:31 MCHC 31 % (30-34) 06/10/21 08:31 RDW 25.5 % (13.2-15.2) H 06/10/21 08:31 Plt Count 351 K/mm3 (140-440) 06/10/21 08:31 Add Manual Diff Complete 06/10/21 08:31 Total Counted 100 06/10/21 08:31 Seg Neuts % (Manual) 71.0 % (40.0-70.0) H 06/10/21 08:31 Band Neutrophils % 1.0 % 06/10/21 08:31 Lymphocytes % (Manual) 17.0 % (13.4-35.0) 06/10/21 08:31 Reactive Lymphs % (Man) 1.0 % 06/10/21 08:31 Monocytes % (Manual) 5.0 % (0.0-7.3) 06/10/21 08:31 Eosinophils % (Manual) 4.0 % (0.0-4.3) 06/10/21 08:31 Basophils % (Manual) 1.0 % (0.0-1.8) 06/10/21 08:31 Metamyelocytes % 0 % 06/10/21 08:31 Myelocytes % 0 % 06/10/21 08:31 Promyelocytes % 0 % 06/10/21 08:31 Blast Cells % 0 % 06/10/21 08:31 Nucleated RBC % Not Reportable 06/10/21 08:31 Seg Neutrophils # Man 4.1 K/mm3 (1.8-7.7) 06/10/21 08:31 Band Neutrophils # 0.1 K/mm3 06/10/21 08:31 Lymphocytes # (Manual) 1.0 K/mm3 (1.2-5.4) L 06/10/21 08:31 Abs React Lymphs (Man) 0.1 K/mm3 06/10/21 08:31 Monocytes # (Manual) 0.3 K/mm3 (0.0-0.8) 06/10/21 08:31 Eosinophils # (Manual) 0.2 K/mm3 (0.0-0.4) 06/10/21 08:31 Basophils # (Manual) 0.1 K/mm3 (0.0-0.1) 06/10/21 08:31 Metamyelocytes # 0.0 K/mm3 06/10/21 08:31 Myelocytes # 0.0 K/mm3 06/10/21 08:31 Promyelocytes # 0.0 K/mm3 06/10/21 08:31 Blast Cells # 0.0 K/mm3 06/10/21 08:31 WBC Morphology Not Reportable 06/10/21 08:31 Hypersegmented Neuts Not Reportable 06/10/21 08:31 Hyposegmented Neuts Not Reportable 06/10/21 08:31 Hypogranular Neuts Not Reportable 06/10/21 08:31 Smudge Cells Not Reportable 06/10/21 08:31 Toxic Granulation Not Reportable 06/10/21 08:31 Toxic Vacuolation Not Reportable 06/10/21 08:31 Dohle Bodies Not Reportable 06/10/21 08:31 Pelger-Huet Anomaly Not Reportable 06/10/21 08:31 Jaime Rods Not Reportable 06/10/21 08:31 Platelet Estimate Consistent w auto 06/10/21 08:31 Clumped Platelets Not Reportable 06/10/21 08:31 Plt Clumps, EDTA Not Reportable 06/10/21 08:31 Large Platelets Not Reportable 06/10/21 08:31 Giant Platelets Not Reportable 06/10/21 08:31 Platelet Satelliting Not Reportable 06/10/21 08:31 Plt Morphology Comment Not Reportable 06/10/21 08:31 RBC Morphology Not Reportable 06/10/21 08:31 Dimorphic RBCs Not Reportable 06/10/21 08:31 Polychromasia 1+ 06/10/21 08:31 Hypochromasia Not Reportable 06/10/21 08:31 Poikilocytosis 2+ 06/10/21 08:31 Anisocytosis 2+ 06/10/21 08:31 Microcytosis Not Reportable 06/10/21 08:31 Macrocytosis Not Reportable 06/10/21 08:31 Spherocytes 1+ 06/10/21 08:31 Pappenheimer Bodies Not Reportable 06/10/21 08:31 Sickle Cells Not Reportable 06/10/21 08:31 Target Cells 1+ 06/10/21 08:31 Tear Drop Cells Not Reportable 06/10/21 08:31 Ovalocytes 1+ 06/10/21 08:31 Helmet Cells Not Reportable 06/10/21 08:31 Graves-[place] Bodies Not Reportable 06/10/21 08:31 [place] Rings Not Reportable 06/10/21 08:31 [place] Cells Not Reportable 06/10/21 08:31 Bite Cells Not Reportable 06/10/21 08:31 Crenated Cell Not Reportable 06/10/21 08:31 Elliptocytes Not Reportable 06/10/21 08:31 Acanthocytes (Spur) Not Reportable 06/10/21 08:31 Rouleaux Not Reportable 06/10/21 08:31 Hemoglobin C Crystals Not Reportable 06/10/21 08:31 Schistocytes Not Reportable 06/10/21 08:31 Malaria parasites Not Reportable 06/10/21 08:31 Koffi Bodies Not Reportable 06/10/21 08:31 Hem Pathologist Commnt No 06/10/21 08:31 PT 14.7 Sec. (12.2-14.9) 06/13/21 Unknown INR 1.03 (0.87-1.13) 06/13/21 Unknown APTT 52.6 Sec. (24.2-36.6) H 05/31/21 06:40 Heparin Anti-Xa Level 0.46 U.I./ml (0.3-0.7) 06/12/21 11:20 Sodium 144 mmol/L (137-145) 06/10/21 08:31 Potassium 4.6 mmol/L (3.6-5.0) D 06/10/21 08:31 Chloride 111.3 mmol/L (98-107) H 06/10/21 08:31 Carbon Dioxide 21 mmol/L (22-30) L 06/10/21 08:31 Anion Gap 16 mmol/L 06/10/21 08:31 BUN 9 mg/dL (7-17) 06/10/21 08:31 Creatinine 1.3 mg/dL (0.6-1.2) H 06/12/21 05:45 Estimated GFR 55 ml/min 06/12/21 05:45 BUN/Creatinine Ratio 6 % 06/10/21 08:31 Glucose 81 mg/dL (65-100) 06/10/21 08:31 Lactic Acid 0.70 mmol/L (0.7-2.0) 06/05/21 10:40 Calcium 8.5 mg/dL (8.4-10.2) 06/10/21 08:31 Total Bilirubin < 0.20 mg/dL (0.1-1.2) 06/10/21 08:31 AST 10 units/L (5-40) 06/10/21 08:31 ALT 9 units/L (7-56) 06/10/21 08:31 Alkaline Phosphatase 84 units/L (35-129) 06/10/21 08:31 Troponin T < 0.010 ng/mL (0.00-0.029) 05/30/21 04:46 Total Protein 5.7 g/dL (6.3-8.2) L D 06/10/21 08:31 Albumin 3.2 g/dL (3.9-5) L 06/10/21 08:31 Albumin/Globulin Ratio 1.3 % 06/10/21 08:31 Lipase 31 units/L (13-60) 05/30/21 04:41 TSH 0.034 mlU/mL (0.270-4.200) L 06/05/21 10:40 Free T4 1.29 ng/dL (0.76-1.46) 06/05/21 10:40 HCG, Qual Negative (Negative) 05/29/21 23:24 Urine Color Yellow (Yellow) 06/05/21 12:20 Urine Turbidity Slightly-cloudy (Clear) 06/05/21 12:20 Urine pH 6.0 (5.0-7.0) 06/05/21 12:20 Ur Specific [place] 1.004 (1.003-1.030) 06/05/21 12:20 Urine Protein <15 mg/dl mg/dL (Negative) 06/05/21 12:20 Urine Glucose (UA) Neg mg/dL (Negative) 06/05/21 12:20 Urine Ketones Neg mg/dL (Negative) 06/05/21 12:20 Urine Blood Mod (Negative) 06/05/21 12:20 Urine Nitrite Neg (Negative) 06/05/21 12:20 Urine Bilirubin Neg (Negative) 06/05/21 12:20 Urine Urobilinogen < 2.0 mg/dL (<2.0) 06/05/21 12:20 Ur Leukocyte Esterase Neg (Negative) 06/05/21 12:20 Urine WBC (Auto) 2.0 /HPF (0.0-6.0) 06/05/21 12:20 Urine RBC (Auto) 37.0 /HPF (0.0-6.0) 06/05/21 12:20 U Epithel Cells (Auto) 3.0 /HPF (0-13.0) 06/05/21 12:20 Urine Bacteria (Auto) 4+ /HPF (Negative) 06/05/21 12:20 Urine Mucus Few /HPF 06/05/21 12:20 Vancomycin Trough 25.1 ug/mL (5.0-20.0) H 06/08/21 04:52 LAURA Screen Negative (Negative) 06/05/21 15:10 Coronavirus (PCR) Negative (Negative) 06/05/21 07:26 Influenza A (Rapid) Negative (Negative) 06/05/21 14:06 Influenza A (RT-PCR) Negative (Negative) 06/05/21 14:06 Influenza B (Rapid) Negative (Negative) 06/05/21 14:06 Influenza B (RT-PCR) Negative (Negative) 06/05/21 14:06 Blood Type B POSITIVE 06/10/21 08:33 Antibody Screen Negative 06/10/21 08:33 Crossmatch See Detail 06/10/21 08:33 Microbiology: Microbiology 06/07/21 15:47 Peripheral/Venous Blood Culture - Final NO GROWTH AFTER 5 DAYS 06/07/21 15:47 Peripheral/Venous Blood Culture - Final NO GROWTH AFTER 5 DAYS Rojas/IV: Voiding Method Bedside Commode Active Medications - Current Medications Current Medications: Generic Name Dose Route Start Last Admin Trade Name Freq PRN Reason Stop Dose Admin Albuterol 2.5 mg 05/30/21 05:14 Albuterol 2.5 Mg/3 Ml Nebu IH Q3HRT PRN Shortness Of Breath Alprazolam 0.5 mg 06/09/21 08:00 06/12/21 22:50 Alprazolam 0.5 Mg Tab PO 0.5 mg BID ELLIOTT Administration Amlodipine Besylate 10 mg 06/12/21 10:00 06/12/21 09:09 Amlodipine 10 Mg Tab PO 10 mg QDAY ELLIOTT Administration Aspirin 81 mg 05/30/21 10:00 06/12/21 09:05 Aspirin Ec 81 Mg Tab PO 81 mg QDAY ELLIOTT Administration Famotidine 20 mg 05/30/21 10:00 06/12/21 22:51 Famotidine 20 Mg Tab PO 20 mg BID ELLIOTT Administration Gabapentin 100 mg 06/10/21 22:00 06/13/21 05:42 Gabapentin 100 Mg Cap PO 100 mg Q8HR ELLIOTT Administration Heparin Sodium (Porcine) 4,500 unit 06/03/21 09:46 Heparin 10,000 Units/10 Ml Vial 40 unit/kg (4500 unit) IV Q6H PRN Anti-Xa Assay < 0.1 units/ml Heparin Sodium/Sodium Chloride 25,000 unit in 500 mls @ 30 mls/hr 06/03/21 10:00 06/13/21 05:08 Heparin/ 0.45% Nacl-25,000 Unit/500 Ml IV 1,900 units/hr TITR ELLIOTT 38 mls/hr Administration Protocol 1,500 UNITS/HR Cefazolin Sodium 2 gm/ Sodium 100 mls @ 200 mls/hr 06/08/21 12:00 06/13/21 05:42 Chloride IV 07/19/21 18:29 200 mls/hr Q6HR ELLIOTT Administration Protocol Levetiracetam 500 mg 05/30/21 10:00 06/12/21 22:51 Levetiracetam 500 Mg Tab PO 500 mg BID ELLIOTT Administration Levothyroxine Sodium 150 mcg 06/06/21 06:00 06/13/21 05:42 Levothyroxine 150 Mcg Tab PO 150 mcg DAILY@0600 ELLIOTT Administration Morphine Sulfate 2 mg 06/03/21 09:30 06/13/21 02:08 Morphine 2 Mg/1 Ml Inj IV 2 mg Q8H PRN Administration Pain, Moderate (4-6) Ondansetron HCl 4 mg 06/05/21 08:00 06/10/21 10:46 Ondansetron 4 Mg/2 Ml Inj IV 4 mg Q4H PRN Administration Nausea And Vomiting Propranolol HCl 40 mg 05/30/21 10:00 06/12/21 23:33 Propranolol 40 Mg Tab PO Not Given BID ELLIOTT Quetiapine Fumarate 100 mg 05/30/21 10:00 06/12/21 09:05 Quetiapine 100 Mg Tab PO 100 mg QAM ELLIOTT Administration Sodium Chloride 10 ml 05/30/21 10:00 06/12/21 23:52 Sodium Chloride 0.9% 10 Ml Flush Syringe IV 10 ml BID ELLIOTT Administration Sodium Chloride 10 ml 05/30/21 05:14 Sodium Chloride 0.9% 10 Ml Flush Syringe IV PRN PRN LINE FLUSH Tramadol HCl 100 mg 06/09/21 08:00 06/12/21 22:49 Tramadol 50 Mg Tab PO 100 mg BID ELLIOTT Administration Warfarin Sodium 20 mg 06/13/21 17:00 Warfarin 10 Mg Tab PO 06/14/21 16:59 ONCE@1700 NR Nutrition/Malnutrition Assess - Dietary Evaluation Nutrition/Malnutrition Findings: Nutrition Notes Start: 05/31/21 12:39 Freq: Status: Active Protocol: Document 06/07/21 18:49 JAMES (Rec: 06/07/21 19:06 JAMES [id number]) Nutrition Notes Initial or Follow up Reassessment Current Diagnosis Sepsis,Hypertension Other Pertinent Diagnosis LE DVT, Bilateral Pulmonary Thromboembolism, R-Ventricular Strain, Pericard Current Diet Cardiac Diet (since B 05/30). Labs/Tests 06/07: Na 135, CO2 20, Ca 7.8. Pertinent Medications 06/07: Levothyroxine, Warfarin 12.5 mg, others nutritionally unremarkable. Height 5 ft 7 in Weight 111 kg [place] Body Weight (kg) 61.36 BMI 38.3 Weight change and time frame No body weight change reported in 1 week. Weight Status Obese Subjective/Other Information RD consult for routine F/U on dietary advancement. Pt's PO intake of meals has been Good (75%), according to ADL notes. Pt ois on Room Air, O2 saturation @ 98%, according to Vital Signs notes. Percent of energy/protein needs met: Prescribed Cardiac Diet provides for energy/protein needs (2,230 Kcal/85 g) during LOS. Burn Absent Trauma Absent GI Symptoms None Food Allergy Yes Skin Integrity/Comment Assessment WNL. Current % PO Good (75-100%) Minimum of two criteria No Is patient on ventilator? No Is Patient Ambulatory and/or Out of Bed Yes REE-(Bee-St. Jeor-ambulatory/OOB) [ 2356.419 [id number]] Kcal/Kg value to use for calculation 16 Approximate Energy Requirements Using 1776 kcal/Kg Calculation Used for Recommendations Kcal/kg Additional Notes Protein: 0.8-1 g/Kg AdjBW; 68- 86 g/day. Fluids: 1 ml/Kcal, or as per MD. Nutrition Intervention Change Diet Order: Continue Cardiac Diet. Follow-Up By: 06/14/21 Additional Comments Continue monitoring food tolerance, %PO intake of meals , and BM.
[2021-06-13] MEDS: PROPRANOLOL 40 MG TAB PO SCH ×2 (09:02→21:47)
[2021-06-13] MEDS: FAMOTIDINE 20 MG TAB PO SCH ×2 (09:03→21:47)
[2021-06-13] MEDS: levETIRAcetam 500 MG TAB PO SCH ×2 (09:03→21:47)
[2021-06-13] MEDS: traMADol 50 MG TAB PO SCH ×2 (09:03→22:52)
[2021-06-13] MEDS: amLODIPine 10 MG TAB PO SCH (09:03)
[2021-06-13] MEDS: ASPIRIN EC 81 MG TAB PO SCH (09:03)
[2021-06-13] MEDS: ALPRAZolam 0.5 MG TAB PO SCH ×2 (09:03→21:47)
[2021-06-13] MEDS: QUEtiapine 100 MG TAB PO SCH (09:03)
--- NOTE | 2021-06-13 12:29 | Progress Note ---
Assessment and Plan Sepsis MSSA Bacteremia Acute pulmonary embolism Acute chest pain History of DVT on warfarin Seizure disorder Anxiety Hypothyroidism microcytic anemia Morbid obesity Hypotension (Resolved) - continue Warfarin; target INR 2.0 to 3.0 - continue care as below otherwise; - continue to trend H&H prn - PRBC transfusions for serum Hb < 7.0 g/dl - continue full anticoagulation with IV Heparin - follow H&H closely - continue vancomycin; de-escalate per ID recommendations - continue Keppra as AED - continue thyroid replacement therapy - s/p Ancef re: MSSA - follow clinically re: fever curves / trend WBC - supplemental oxygen to keep O2 sats > 90% - bronchodilators (ALVERTO) with pulm hygiene per RT - continue to avoid nephrotoxins, renally dose all medications - continue mobility protocols to prevent pressure ulcers - PT/OT as tolerated - Wound care per RN/WCT - continue accuchecks with glycemic control per SSI for target blood glucose < 180 mg/dL - tobacco abstinence strongly counseled at the bedside - home oxygen evaluation at discharge - prn analgesia per pain score - GI prophylaxis with Pepcid - Flu & pneumovax per protocol - Pulmonary out patient follow up for PFTs and optimization of respiratory status - life style modifications counseled re: weight loss, better medication compliance - continue other care per attending / other consultants ... re-evaluate in am & prn Subjective Date of service: 06/13/21 Principal diagnosis: Sepsis; Acute P.E.; Chest pain; H/O DVT; Seizures; Hypothyroidism; Obesity Interval history: Patient is seen today for: Sepsis; Acute pulmonary embolism; Acute chest pain; H/O DVT; Seizure disorder; Hypothyroidism; Anemia; Morbid obesity; Hypotension (Resolved); MSSA Bacteremia Seen and examined at bedside; 24hour events reviewed; nursing and respiratory care staff consulted; no adverse overnight events reported to me; resting peacefully in bed; no new issues today and no gross bleeding Objective Vital Signs - 12hr 06/13/21 06/13/21 04:44 10:00 Temperature 97.9 F Pulse Rate 59 L Respiratory 14 Rate Blood Pressure 152/89 O2 Sat by Pulse 97 96 Oximetry Constitutional: no acute distress, alert, other (elderly morbidly obese female without increased respiratory effort at rest) Eyes: non-icteric ENT: oropharynx moist Neck: supple, no lymphadenopathy, no JVD, other (large neck circumference; RIJ CVL) Effort: mildly labored Ascultation: Bilateral: clear, diminished breath sounds Percussion: Bilateral: not dull Cardiovascular: regular rate and rhythm Gastrointestinal: normoactive bowel sounds, soft, non-tender, other (distended but soft) Integumentary: normal Extremities: no cyanosis, no edema, pulses normal, no ischemia or petechiae Neurologic: non-focal exam (grossly), pupils equal and round, CN II-XII normal, motor strength normal and Psychiatric: mood appropriate, affect normal CBC and BMP: 06/10/21 08:31 06/12/21 05:45 ABG, PT/INR, D-dimer: PT/INR, D-dimer PT 14.7 Sec. (12.2-14.9) 06/13/21 Unknown INR 1.03 (0.87-1.13) 06/13/21 Unknown Abnormal lab findings: Abnormal Labs 05/29/21 05/29/21 05/29/21 23:24 23:24 23:29 WBC RBC Hgb 8.8 L Hct 28.7 L MCV 74 L MCH 23 L RDW 26.4 H Seg Neuts % (Manual) 75.0 H Lymphocytes % (Manual) Seg Neutrophils # Man Lymphocytes # (Manual) PT INR APTT 20.9 L Heparin Anti-Xa Level Sodium Chloride Carbon Dioxide 20 L Creatinine Calcium Total Protein Albumin 3.5 L TSH Vancomycin Trough Crossmatch 05/30/21 05/30/21 05/30/21 08:25 08:25 13:35 WBC RBC Hgb 8.8 L Hct 27.5 L MCV MCH RDW Seg Neuts % (Manual) Lymphocytes % (Manual) Seg Neutrophils # Man Lymphocytes # (Manual) PT 15.4 H INR APTT 107.1 H* Heparin Anti-Xa Level 0.82 H Sodium Chloride Carbon Dioxide Creatinine Calcium Total Protein Albumin TSH Vancomycin Trough Crossmatch 05/30/21 05/31/21 05/31/21 20:57 06:40 06:40 WBC 13.0 H RBC Hgb 8.9 L Hct 28.5 L MCV 74 L MCH 23 L RDW 25.7 H Seg Neuts % (Manual) 77.0 H Lymphocytes % (Manual) Seg Neutrophils # Man 10.0 H Lymphocytes # (Manual) PT INR APTT 52.6 H Heparin Anti-Xa Level 0.15 L 0.74 H Sodium Chloride Carbon Dioxide Creatinine Calcium Total Protein Albumin TSH Vancomycin Trough Crossmatch 06/01/21 06/01/21 06/02/21 09:55 10:27 06:15 WBC RBC Hgb 9.4 L Hct MCV MCH RDW Seg Neuts % (Manual) Lymphocytes % (Manual) Seg Neutrophils # Man Lymphocytes # (Manual) PT INR APTT Heparin Anti-Xa Level 0.13 L 0.25 L Sodium Chloride Carbon Dioxide Creatinine Calcium Total Protein Albumin TSH Vancomycin Trough Crossmatch 06/02/21 06/03/21 06/04/21 23:30 Unknown 07:39 WBC RBC Hgb 8.5 L Hct 28.0 L MCV MCH RDW Seg Neuts % (Manual) Lymphocytes % (Manual) Seg Neutrophils # Man Lymphocytes # (Manual) PT 15.0 H INR APTT Heparin Anti-Xa Level 0.19 L Sodium Chloride Carbon Dioxide Creatinine Calcium Total Protein Albumin TSH Vancomycin Trough Crossmatch 06/05/21 06/05/21 06/05/21 04:07 04:07 10:40 WBC RBC Hgb 8.4 L Hct 27.3 L MCV MCH RDW Seg Neuts % (Manual) Lymphocytes % (Manual) Seg Neutrophils # Man Lymphocytes # (Manual) PT 17.7 H INR 1.30 H APTT Heparin Anti-Xa Level Sodium Chloride Carbon Dioxide Creatinine Calcium Total Protein Albumin TSH 0.034 L Vancomycin Trough Crossmatch 06/05/21 06/05/21 06/06/21 10:40 11:01 04:00 WBC 14.0 H RBC 3.37 L Hgb 7.5 L Hct 24.8 L MCV 74 L MCH 22 L RDW 25.0 H Seg Neuts % (Manual) 94.0 H Lymphocytes % (Manual) 3.0 L Seg Neutrophils # Man 13.2 H Lymphocytes # (Manual) 0.4 L PT 17.4 H INR 1.27 H APTT Heparin Anti-Xa Level Sodium 135 L Chloride Carbon Dioxide 20 L Creatinine Calcium 7.8 L Total Protein Albumin TSH Vancomycin Trough Crossmatch 06/07/21 06/07/21 06/08/21 12:55 12:55 04:52 WBC RBC Hgb 7.1 L Hct 23.6 L MCV MCH RDW Seg Neuts % (Manual) Lymphocytes % (Manual) Seg Neutrophils # Man Lymphocytes # (Manual) PT 19.7 H INR 1.48 H APTT Heparin Anti-Xa Level Sodium Chloride 116.6 H Carbon Dioxide 18 L Creatinine Calcium 7.4 L Total Protein 4.7 L Albumin 2.7 L TSH Vancomycin Trough Crossmatch 06/08/21 06/09/21 06/09/21 04:52 06:46 06:46 WBC RBC 3.09 L Hgb 6.9 L Hct 22.4 L MCV 72 L MCH 22 L RDW 25.0 H Seg Neuts % (Manual) Lymphocytes % (Manual) Seg Neutrophils # Man Lymphocytes # (Manual) PT INR APTT Heparin Anti-Xa Level < 0.10 L Sodium Chloride Carbon Dioxide Creatinine Calcium Total Protein Albumin TSH Vancomycin Trough 25.1 H Crossmatch 06/09/21 06/10/21 06/10/21 Unknown 08:31 08:31 WBC RBC 3.17 L Hgb 7.1 L Hct 22.9 L MCV 72 L MCH 22 L RDW 25.5 H Seg Neuts % (Manual) 71.0 H Lymphocytes % (Manual) Seg Neutrophils # Man Lymphocytes # (Manual) 1.0 L PT 20.4 H 17.6 H INR 1.54 H 1.29 H APTT Heparin Anti-Xa Level Sodium Chloride Carbon Dioxide Creatinine Calcium Total Protein Albumin TSH Vancomycin Trough Crossmatch 06/10/21 06/10/21 06/11/21 08:31 08:33 08:25 WBC RBC Hgb Hct MCV MCH RDW Seg Neuts % (Manual) Lymphocytes % (Manual) Seg Neutrophils # Man Lymphocytes # (Manual) PT 16.3 H INR 1.17 H APTT Heparin Anti-Xa Level Sodium Chloride 111.3 H Carbon Dioxide 21 L Creatinine 1.4 H Calcium Total Protein 5.7 L D Albumin 3.2 L TSH Vancomycin Trough Crossmatch See Detail 06/12/21 06/12/21 05:45 05:45 WBC RBC Hgb Hct MCV MCH RDW Seg Neuts % (Manual) Lymphocytes % (Manual) Seg Neutrophils # Man Lymphocytes # (Manual) PT 16.1 H INR 1.16 H APTT Heparin Anti-Xa Level Sodium Chloride Carbon Dioxide Creatinine 1.3 H Calcium Total Protein Albumin TSH Vancomycin Trough Crossmatch Allied health notes reviewed: nursing
[2021-06-13] MEDS ORDERED: WARFARIN 10 MG TAB PO NR (17:00)
[2021-06-14] MEDS: GABAPENTIN 100 MG CAP PO SCH ×3 (05:12→21:35)
[2021-06-14] MEDS: LEVOTHYROXINE 150 MCG TAB PO SCH (05:12)
[2021-06-14] MEDS: ONDANSETRON 4 MG/2 ML INJ IV PRN (06:47)
[2021-06-14] MEDS: MORPHINE 2 MG/1 ML INJ IV PRN ×3 (06:47→23:26)
--- NOTE | 2021-06-14 09:12 | Hem/Onc Consultation ---
History of Present Illness - Reason for Consult Consult date: 06/14/21 Warfarin consult - History of Present Illness Heme consult note Televisit via amplify CPT 98175 Dx Pulmonary Embolism This is a 40yo female who presents to [facility] with complaints of chest pain, retrosternal, sharp, radiating to back, 10/10, worsened by deep breaths, not relieved by anything, associated with SOB. Past medical history of hypertension, PE x2, (R lung 05/2016, L lung 01/2017--on Coumadin), R leg DVT 03/2017, Graves Disease, heart murmur, aortic dissection requiring TEVAR graft, pericarditis, thyroid storm, GERD. Reports bilateral leg swelling, pain in her calves. Bilateral extremity U/S negative for DVT. CTA chest reveals acute bilateral pulmonary thromboemboli with evidence of mild right ventricular restaurant. Scattered pneumonitis noted throughout the both lungs. Patient was started on heparin gtt and Warfarin 20mg daily. Noted with anemia, s/p 1 unit pRBC on 06/10/21. As per cardiology, possible infected TEVAR graft as potential source of infection, HANK negative. Reports at home compliance with Warfarin 7.5mg daily. Hematology was consulted for evaluation of possible warfarin resistance. Patient examined at bedside, in no acute distress noted. Reports 1 previous RBC transfusion 2020 during valve replacement surgery. Reports of "clot behind heart" found during heart replacement surgery. Started on Warfarin 7.5mg daily 6 months ago. Reports attempted Lovenox, Xarelto, Eliquis, Pradaxa and all caused allergic-type reaction. Started on Warfarin 7.5mg daily and followed outpatient. Reports having a "blood disorder" but unknown type. Reports of heavy menstrual bleeding. DATA REVIEWED BELOW IMP: Microcytic anemia, likely related to iron deficiency due to heavy menstrual bleeding and/or sickle Clotting tendency, could be related to hemoglobinopathy or clot mutation Warfarin resistance also possible vs noncompliance PLAN: Stat CBC to evaluate anemia Labs to include cardiolipin ab, factor v leidin, Hemoglobin electrophoresis to r/o sickle cell, thalassemia Unable to evaluate iron studies post RBC transfusion as results would be uninterpretable Start IV ferrlicet 125mg today Monitor CBC daily Continue Heparin drip, bridge to Warfarin 12.5mg daily Recommend outpatient hematology follow-up Laboratory Last Values WBC 5.8 K/mm3 (4.5-11.0) 06/10/21 08:31 Hgb 7.1 gm/dl (10.1-14.3) L 06/10/21 08:31 Hct 22.9 % (30.3-42.9) L 06/10/21 08:31 MCV 72 fl (79-97) L 06/10/21 08:31 MCH 22 pg (28-32) L 06/10/21 08:31 MCHC 31 % (30-34) 06/10/21 08:31 Plt Count 351 K/mm3 (140-440) 06/10/21 08:31 Add Manual Diff Complete 06/10/21 08:31 Total Counted 100 06/10/21 08:31 Seg Neuts % (Manual) 71.0 % (40.0-70.0) H 06/10/21 08:31 Band Neutrophils % 1.0 % 06/10/21 08:31 Lymphocytes % (Manual) 17.0 % (13.4-35.0) 06/10/21 08:31 Reactive Lymphs % (Man) 1.0 % 06/10/21 08:31 Monocytes % (Manual) 5.0 % (0.0-7.3) 06/10/21 08:31 Eosinophils % (Manual) 4.0 % (0.0-4.3) 06/10/21 08:31 Basophils % (Manual) 1.0 % (0.0-1.8) 06/10/21 08:31 Metamyelocytes % 0 % 06/10/21 08:31 Myelocytes % 0 % 06/10/21 08:31 Promyelocytes % 0 % 06/10/21 08:31 Blast Cells % 0 % 06/10/21 08:31 Nucleated RBC % Not Reportable 06/10/21 08:31 Seg Neutrophils # Man 4.1 K/mm3 (1.8-7.7) 06/10/21 08:31 Band Neutrophils # 0.1 K/mm3 06/10/21 08:31 Lymphocytes # (Manual) 1.0 K/mm3 (1.2-5.4) L 06/10/21 08:31 Abs React Lymphs (Man) 0.1 K/mm3 06/10/21 08:31 Monocytes # (Manual) 0.3 K/mm3 (0.0-0.8) 06/10/21 08:31 Eosinophils # (Manual) 0.2 K/mm3 (0.0-0.4) 06/10/21 08:31 Basophils # (Manual) 0.1 K/mm3 (0.0-0.1) 06/10/21 08:31 Metamyelocytes # 0.0 K/mm3 06/10/21 08:31 Myelocytes # 0.0 K/mm3 06/10/21 08:31 Promyelocytes # 0.0 K/mm3 06/10/21 08:31 Blast Cells # 0.0 K/mm3 06/10/21 08:31 WBC Morphology Not Reportable 06/10/21 08:31 Hypersegmented Neuts Not Reportable 06/10/21 08:31 Hyposegmented Neuts Not Reportable 06/10/21 08:31 Hypogranular Neuts Not Reportable 06/10/21 08:31 Smudge Cells Not Reportable 06/10/21 08:31 Toxic Granulation Not Reportable 06/10/21 08:31 Toxic Vacuolation Not Reportable 06/10/21 08:31 Dohle Bodies Not Reportable 06/10/21 08:31 Pelger-Huet Anomaly Not Reportable 06/10/21 08:31 Jaime Rods Not Reportable 06/10/21 08:31 Platelet Estimate Consistent w auto 06/10/21 08:31 Clumped Platelets Not Reportable 06/10/21 08:31 Plt Clumps, EDTA Not Reportable 06/10/21 08:31 Large Platelets Not Reportable 06/10/21 08:31 Giant Platelets Not Reportable 06/10/21 08:31 Platelet Satelliting Not Reportable 06/10/21 08:31 Plt Morphology Comment Not Reportable 06/10/21 08:31 RBC Morphology Not Reportable 06/10/21 08:31 Dimorphic RBCs Not Reportable 06/10/21 08:31 Polychromasia 1+ 06/10/21 08:31 Hypochromasia Not Reportable 06/10/21 08:31 Poikilocytosis 2+ 06/10/21 08:31 Anisocytosis 2+ 06/10/21 08:31 Microcytosis Not Reportable 06/10/21 08:31 Macrocytosis Not Reportable 06/10/21 08:31 Spherocytes 1+ 06/10/21 08:31 Pappenheimer Bodies Not Reportable 06/10/21 08:31 Sickle Cells Not Reportable 06/10/21 08:31 Target Cells 1+ 06/10/21 08:31 Tear Drop Cells Not Reportable 06/10/21 08:31 Ovalocytes 1+ 06/10/21 08:31 Helmet Cells Not Reportable 06/10/21 08:31 Graves-[place] Bodies Not Reportable 06/10/21 08:31 [place] Rings Not Reportable 06/10/21 08:31 Tricia Cells Not Reportable 06/10/21 08:31 Bite Cells Not Reportable 06/10/21 08:31 Crenated Cell Not Reportable 06/10/21 08:31 Elliptocytes Not Reportable 06/10/21 08:31 Acanthocytes (Spur) Not Reportable 06/10/21 08:31 Rouleaux Not Reportable 06/10/21 08:31 Hemoglobin C Crystals Not Reportable 06/10/21 08:31 Schistocytes Not Reportable 06/10/21 08:31 Malaria parasites Not Reportable 06/10/21 08:31 Koffi Bodies Not Reportable 06/10/21 08:31 Hem Pathologist Commnt No 06/10/21 08:31 PT 14.7 Sec. (12.2-14.9) 06/13/21 Unknown INR 1.03 (0.87-1.13) 06/13/21 Unknown APTT 52.6 Sec. (24.2-36.6) H 05/31/21 06:40 Heparin Anti-Xa Level 0.49 U.I./ml (0.3-0.7) 06/13/21 11:15 Creatinine 1.3 mg/dL (0.6-1.2) H 06/12/21 05:45 AST 10 units/L (5-40) 06/10/21 08:31 ALT 9 units/L (7-56) 06/10/21 08:31 Alkaline Phosphatase 84 units/L (35-129) 06/10/21 08:31 HCG, Qual Negative (Negative) 05/29/21 23:24 LAURA Screen Negative (Negative) 06/05/21 15:10 Blood Type B POSITIVE 06/10/21 08:33 Antibody Screen Negative 06/10/21 08:33 Crossmatch See Detail 06/10/21 08:33 Past History Past Medical History: DVT, hypertension, other (PE.pericarditis, pt states hyperthyroidism, thyroid storm, PE x2, (R lung 05/2016, L lung 01/2017--on coumadin), R leg DVT 03/2017, Graves Disease, heart murmur, aortic dissection) Past Surgical History: Other (Left arm surgery 02/2017, Right knee, Rt leg. 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, [place] Filter) Social history: other (No smoking) Family history: no significant family history Medications and Allergies Allergies Allergy/AdvReac Type Severity Reaction Status Date / Time acetaminophen [From Tylenol] Allergy Hives Verified 12/16/20 11:52 enoxaparin [From Lovenox] Allergy Rash, Verified 01/18/21 13:51 fever, vomiting garlic Allergy Hives Verified 01/18/21 13:51 oxycodone [From Percocet] Allergy Itching, Verified 01/18/21 13:51 rash peanut oil Allergy Rash Verified 01/18/21 13:51 Penicillins Allergy hives, Verified 01/18/21 13:51 vomiting ibuprofen [From Motrin] AdvReac nausea/vomi Verified 01/18/21 13:51 ting Home Medications Medication Instructions Recorded Confirmed Last Taken Type Aspirin EC [Halfprin EC] 81 mg PO QDAY #30 01/01/20 05/31/21 05/30/21 Rx Warfarin [Coumadin] 7.5 mg PO DAILY@1700 #30 tablet 04/22/20 05/31/21 05/30/21 Rx QUEtiapine [SEROquel] 100 mg PO QAM 01/16/21 05/31/21 05/30/21 History Quetiapine Fumarate [SEROquel] 300 mg PO QHS 01/16/21 05/31/21 05/31/21 12:48 History levETIRAcetam [Keppra TAB] 500 mg PO BID 01/16/21 05/31/21 05/30/21 History traMADoL [Ultram] 100 mg PO TID 01/16/21 05/31/21 05/30/21 History ALPRAZolam [Xanax TAB] 0.5 mg PO TID 01/18/21 05/31/21 05/30/21 History Gabapentin [Neurontin] 300 mg PO TID 01/18/21 05/31/21 05/31/21 12:49 History propranoloL [Inderal] 40 mg PO BID 01/18/21 05/31/21 05/30/21 History predniSONE [Deltasone] 40 mg PO QDAY #10 tab 05/18/21 05/31/21 05/30/21 Rx Active Meds: Active Medications Albuterol (Albuterol 2.5 Mg/3 Ml Nebu) 2.5 mg IH Q3HRT PRN PRN Reason: Shortness Of Breath Alprazolam (Alprazolam 0.5 Mg Tab) 0.5 mg PO BID [facility] Last Admin: 06/13/21 21:47 Dose: 0.5 mg Amlodipine Besylate (Amlodipine 10 Mg Tab) 10 mg PO QDAY [facility] Last Admin: 06/13/21 09:03 Dose: 10 mg Aspirin (Aspirin Ec 81 Mg Tab) 81 mg PO QDAY [facility] Last Admin: 06/13/21 09:03 Dose: 81 mg Famotidine (Famotidine 20 Mg Tab) 20 mg PO BID [facility] Last Admin: 06/13/21 21:47 Dose: 20 mg Gabapentin (Gabapentin 100 Mg Cap) 100 mg PO Q8HR [facility] Last Admin: 06/14/21 05:12 Dose: 100 mg Heparin Sodium (Porcine) (Heparin 10,000 Units/10 Ml Vial) 4,500 unit 40 unit/kg (4500 unit) IV Q6H PRN PRN Reason: Anti-Xa Assay < 0.1 units/ml Heparin Sodium/Sodium Chloride (Heparin/ 0.45% Nacl-25,000 Unit/500 Ml) 25,000 unit in 500 mls @ 30 mls/hr IV TITR [facility]; Protocol Last Titration: 06/13/21 12:37 Dose: 1,900 units/hr, 38 mls/hr Cefazolin Sodium 2 gm/ Sodium (Chloride) 100 mls @ 200 mls/hr IV Q6HR [facility]; Protocol Stop: 07/19/21 18:29 Last Admin: 06/14/21 05:12 Dose: 200 mls/hr Levetiracetam (Levetiracetam 500 Mg Tab) 500 mg PO BID [facility] Last Admin: 06/13/21 21:47 Dose: 500 mg Levothyroxine Sodium (Levothyroxine 150 Mcg Tab) 150 mcg PO DAILY@0600 [facility] Last Admin: 06/14/21 05:12 Dose: 150 mcg Morphine Sulfate (Morphine 2 Mg/1 Ml Inj) 2 mg IV Q8H PRN PRN Reason: Pain, Moderate (4-6) Last Admin: 06/14/21 06:47 Dose: 2 mg Ondansetron HCl (Ondansetron 4 Mg/2 Ml Inj) 4 mg IV Q4H PRN PRN Reason: Nausea And Vomiting Last Admin: 06/14/21 06:47 Dose: 4 mg Propranolol HCl (Propranolol 40 Mg Tab) 40 mg PO BID [facility] Last Admin: 06/13/21 21:47 Dose: 40 mg Quetiapine Fumarate (Qu[facility]apine 100 Mg Tab) [facility] [place] [facility] Admin: 06/13/21 09:03 Dose: 100 mg Sodium Chloride (Sodium Chloride 0.9% 10 Ml Flush Syringe) 10 ml IV BID [facility] Last Admin: 06/13/21 21:48 Dose: 10 ml Sodium Chloride (Sodium Chloride 0.9% 10 Ml Flush Syringe) 10 ml IV PRN PRN PRN Reason: LINE FLUSH Tramadol HCl (Tramadol 50 Mg Tab) 100 mg PO BID [facility] Last Admin: 06/13/21 22:52 Dose: 100 mg Warfarin Sodium (Warfarin 10 Mg Tab) 20 mg PO ONCE@1700 NR Stop: 06/14/21 16:59 Last Admin: 06/13/21 17:49 Dose: 20 mg Exam - Constitutional Vitals: Last Vital Signs Temp 97.8 F 06/14/21 05:02 Pulse 66 06/14/21 05:02 Resp 15 06/14/21 05:02 BP 139/75 06/14/21 05:02 Pulse Ox 100 06/14/21 05:02 Results - Labs lab Results: Laboratory Results - last 24 hr 06/13/21 11:15 Heparin Anti-Xa Level 0.49
--- NOTE | 2021-06-14 09:50 | Progress Note ---
Assessment and Plan Assessment and plan: 40 years old female with past medical history of hypertension, PE x2, (R lung 05/2016, L lung 01/2017--on coumadin), R leg DVT 03/2017, Graves Disease, heart murmur, aortic dissection, PERICARDITIS, thyroid storm, and GERD admitted for acute bilateral pulmonary thromboemboli with evidence of mild right ventricular strain on heparin gtt and warfarin. Hospital Course: 06/05: Is unclear to me why the patient was transferred to the [facility] as I do not have any clear documentation to the results but in effect I was told by the nurse that the patient had pulled out his for her femoral line and did not have an access. Patient appears to have been having fever for a few days no known etiology we will proceed with a sepsis work-up although closely reviewing her case shows a history of thyroid storm in the past and she has not been receiving her thyroid medication while she does not have confusion at this time she does have tachycardia and tachypnea. We will give her a dose of IV levothyroxine today and start her daily dose of levothyroxine a.m. She has been on her propranolol although her home dose appears confusing as she gets 40 mg once daily and also 20 mg twice a day will discuss with her to clarify this and also with her pharmacy. She did have a right IJ triple-lumen catheter placed yesterday I discussed with her in the setting of well-documented by the nurse th at she takes Midol at home which contains acetaminophen she is agreeable to trial acetaminophen as she wants to come off the cooling blanket. I also consulted ID and ordered a urinalysis with urine culture and some fluid support. I reviewed her CT scan and echocardiogram while the CT mentions the pulmonary embolism with mild right heart strain the echo shows a RVSP of 32 mmHg. 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 She continues on heparin drip while awaiting for therapeutic INR. In the meantime continue with antibiotic Right internal jugular vein triple-lumen catheter placement under ultrasound guidance 06/06: Patient seen and examined, showing some improvement, will follow cultures result, Continue abx, clinical stable, ID input, close eye on Hemoglobin. WBC mildly trended up. will transfer back to [facility]. 06/07: Continue supportive care, awaiting Cultures for ID and sensitivity in the meantime continue antibiotic. Am LABS. Patient continues on heparin drip until INR is therapeutic. I encouraged her to ambulate in her room and also set up on the chair. Cultures for COVID was negative. We will obtain PT OT evaluation. In short summary patient is a 40-year-old female with hypertension pulmonary embolism lower extremity DVT in the past on Coumadin who presented with shortness of breath diagnosed with pulmonary embolism admitted intermittently sepsis doubt septic emboli currently on antibiotics. Restarted on her thyroid medication with no evidence of thyroid storm. 06/08: resting comfortably on encounter. Afebrile today. Vital signs improved. 94% on 3L/min NC. Pain medication appears to be excessive as patient is heavily sedated, will scale back pain medication. D/w cardiology Dr Canseco regarding concern for endocarditis and possible infected TEVAR graft as potential source of infection. Consult placed for HANK. Will continue to follow culture data. Continue IV vancomycin per ID direction. INR remains subtherapeutic for treatment of DVT/PE but increased to 1.48, will continue warfarin at current dosage and heparin gtt at this time. 06/09: continue therapy for MSSA bacteremia. Awaiting HANK completion. INR 1.54, warfarin 12.5 mg dose given today. Anemic today 6.9, ordered 1 unit prbc. Patient denies any rectal bleeding, bleeding from lines, hematemesis. Suspect an emia of chronic disease and possibly iatrogenic induced from multiple blood draw/line placement attempts. Lower suspicion for occult hematoma but will order CTAP. 06/10: Abx orders noted by ID. INR remains subtherapetuic, did not receive warfarin dose for some apparent reason. Pharmacy will give 15 mg dose today. Occult bleed r/o on ctap. No rectal bleeding reported. Will transfuse 1 unit prbc. Restart heparin gtt. Will follow up results of HANK from today. 06/11: HANK negative for endocarditis. INR subtherapuetic. unfortunately patient has missed last two day of warfarin dosing and inr reflects this. Patient could also be warfarin resistant. Patient needs to be receiving BOTH warfarin and heparin gtt until INR goal of 2.5 achieved. D/w pharmacy, will continue with 15 mg dosing at this time. Continue Iv abx. Discharge plan is for early next week. 06/12: Hypertensive this AM, added amlodipine for better BP control. INR 1.16. Continue heparin gtt while transitioning to warfarin. Plan for discharge early next week. CM working on OP IV abx arrangement. 06/13: Continue heparin gtt and warfarin. INR remains subtherapeutic. 06/14: Patient remains subtherapeutic despite heparin gtt and Warfarin. Will consult hematology for possible warfarin resistance and for further recs. Continue heparin gtt and warfarin for now. Patient remains on IV Abx, ancef per ID, DAVID PICC line noted remove RIJ CVC. Assessment and Plan: #Sepsis, MSSA bacteremia -Etiology unclear, line infection vs endocarditis, infected TEVAR graft. -06/04 bcx: 3/4 bottles MSSA - 06/07 bcx: NGTD - urine culture: NGTD -TTE negative for valvular vegetations -HANK negative for endocarditis - ID following -Continue Ancef -DAVID PICC line noted, remove RIJ CVC #Hypotension (resolved) -Patient with low blood pressure at night -IVF started -avoid antihypotensives -labetalol currently held #Acute pulmonary embolism #Acute chest pain #History of DVT on warfarin Troponin unremarkable, chest x-ray unremarkable, bilateral lower extremity venous Dopplers unremarkable for acute DVT CT angio chest revealing acute bilateral pulmonary emboli with evidence of right heart strain Home medication of warfarin 7.5 mg daily; however, INR 1.03. Patient endorses being compliant with her anticoagulation. Continue heparin drip and bridged warfarin daily until therapeutic (goal 2.53.5). TTE without evidence of right heart strain Patient needs to be taking BOTH warfarin and heparin until INR goal of 2.5 achieved. - Remains subtherapeutic despite Heparin and Warfarin - Hematology consulted for possible warfarin resistance #history of mechanical heart valve - goal inr 2.5. #Seizure disorder #Anxiety Continue home medications: Keppra 500 mg twice daily, Quetiapine 100 mg every morning and 300 mg nightly, alprazolam 0.5 mg 3 times daily #History of aortic dissection s/p tevar. #Hypothyroidism -resume home levothyroxine #microcytic anemia -stable Transfuse if hemoglobin less than 7 or patient become symptomatic #Morbid obesity #Weight loss counseling #Exercise counseling - BMI 39.1 - Counseled patient on the importance of weight loss, incorporating exercise, and dietary changes (lean meats, fresh fruits and vegetables, and water intake). Patient expresses understanding. #Advanced care planning -Disease education conducted, care plan discussed, diagnoses discussed, prognosis discussed, and patient acknowledges understanding with care plan -Time: +30 min History Interval history: Patient seen and examined at the bedside. Patient remains stable on RA. no acute events overnight Hospitalist Physical - Constitutional Vitals: Temp Pulse Resp BP Pulse Ox 97.8 F 66 15 139/75 100 06/14/21 05:02 06/14/21 05:02 06/14/21 05:02 06/14/21 05:02 06/14/21 05:02 General appearance: Present: no acute distress, well-nourished, obese - EENT Eyes: Present: PERRL, EOM intact ENT: hearing intact - Neck Neck: Present: normal ROM - Respiratory Respiratory effort: normal Respiratory: bilateral: diminished - Cardiovascular Rhythm: regular Heart Sounds: Present: S1 & S2 - Extremities Extremities: no ischemia, pulses intact, pulses symmetrical Extremity abnormal: edema - Peripheral Assessment Bilateral Lower Extremity Edema Type: Pitting Edema Degree: 3+ Capillary Refill: < 3 seconds Skin Temperature: Warm Generalized Edema Type: Non-pitting Edema Degree: 3+ Capillary Refill: < 3 seconds Skin Temperature: Warm Peripheral Pulses: within normal limits - Abdominal General gastrointestinal: soft, non-distended, normal bowel sounds - Integumentary Integumentary: Present: clear, warm, dry - Psychiatric Psychiatric: appropriate mood/affect, cooperative - Neurologic Neurologic: CNII-XII intact, moves all extremities - Allied Health Allied health notes reviewed: nursing, case management HEART Score - HEART Score Troponin: Troponin T < 0.010 ng/mL (0.00-0.029) 05/30/21 04:46 Results - Labs CBC & Chem 7: 06/10/21 08:31 06/12/21 05:45 Labs: Laboratory Last Values WBC 5.8 K/mm3 (4.5-11.0) 06/10/21 08:31 RBC 3.17 M/mm3 (3.65-5.03) L 06/10/21 08:31 Hgb 7.1 gm/dl (10.1-14.3) L 06/10/21 08:31 Hct 22.9 % (30.3-42.9) L 06/10/21 08:31 MCV 72 fl (79-97) L 06/10/21 08:31 MCH 22 pg (28-32) L 06/10/21 08:31 MCHC 31 % (30-34) 06/10/21 08:31 RDW 25.5 % (13.2-15.2) H 06/10/21 08:31 Plt Count 351 K/mm3 (140-440) 06/10/21 08:31 Add Manual Diff Complete 06/10/21 08:31 Total Counted 100 06/10/21 08:31 Seg Neuts % (Manual) 71.0 % (40.0-70.0) H 06/10/21 08:31 Band Neutrophils % 1.0 % 06/10/21 08:31 Lymphocytes % (Manual) 17.0 % (13.4-35.0) 06/10/21 08:31 Reactive Lymphs % (Man) 1.0 % 06/10/21 08:31 Monocytes % (Manual) 5.0 % (0.0-7.3) 06/10/21 08:31 Eosinophils % (Manual) 4.0 % (0.0-4.3) 06/10/21 08:31 Basophils % (Manual) 1.0 % (0.0-1.8) 06/10/21 08:31 Metamyelocytes % 0 % 06/10/21 08:31 Myelocytes % 0 % 06/10/21 08:31 Promyelocytes % 0 % 06/10/21 08:31 Blast Cells % 0 % 06/10/21 08:31 Nucleated RBC % Not Reportable 06/10/21 08:31 Seg Neutrophils # Man 4.1 K/mm3 (1.8-7.7) 06/10/21 08:31 Band Neutrophils # 0.1 K/mm3 06/10/21 08:31 Lymphocytes # (Manual) 1.0 K/mm3 (1.2-5.4) L 06/10/21 08:31 Abs React Lymphs (Man) 0.1 K/mm3 06/10/21 08:31 Monocytes # (Manual) 0.3 K/mm3 (0.0-0.8) 06/10/21 08:31 Eosinophils # (Manual) 0.2 K/mm3 (0.0-0.4) 06/10/21 08:31 Basophils # (Manual) 0.1 K/mm3 (0.0-0.1) 06/10/21 08:31 Metamyelocytes # 0.0 K/mm3 06/10/21 08:31 Myelocytes # 0.0 K/mm3 06/10/21 08:31 Promyelocytes # 0.0 K/mm3 06/10/21 08:31 Blast Cells # 0.0 K/mm3 06/10/21 08:31 WBC Morphology Not Reportable 06/10/21 08:31 Hypersegmented Neuts Not Reportable 06/10/21 08:31 Hyposegmented Neuts Not Reportable 06/10/21 08:31 Hypogranular Neuts Not Reportable 06/10/21 08:31 Smudge Cells Not Reportable 06/10/21 08:31 Toxic Granulation Not Reportable 06/10/21 08:31 Toxic Vacuolation Not Reportable 06/10/21 08:31 Dohle Bodies Not Reportable 06/10/21 08:31 Pelger-Huet Anomaly Not Reportable 06/10/21 08:31 Jaiem Rods Not Reportable 06/10/21 08:31 Platelet Estimate Consistent w auto 06/10/21 08:31 Clumped Platelets Not Reportable 06/10/21 08:31 Plt Clumps, EDTA Not Reportable 06/10/21 08:31 Large Platelets Not Reportable 06/10/21 08:31 Giant Platelets Not Reportable 06/10/21 08:31 Platelet Satelliting Not Reportable 06/10/21 08:31 Plt Morphology Comment Not Reportable 06/10/21 08:31 RBC Morphology Not Reportable 06/10/21 08:31 Dimorphic RBCs Not Reportable 06/10/21 08:31 Polychromasia 1+ 06/10/21 08:31 Hypochromasia Not Reportable 06/10/21 08:31 Poikilocytosis 2+ 06/10/21 08:31 Anisocytosis 2+ 06/10/21 08:31 Microcytosis Not Reportable 06/10/21 08:31 Macrocytosis Not Reportable 06/10/21 08:31 Spherocytes 1+ 06/10/21 08:31 Pappenheimer Bodies Not Reportable 06/10/21 08:31 Sickle Cells Not Reportable 06/10/21 08:31 Target Cells 1+ 06/10/21 08:31 Tear Drop Cells Not Reportable 06/10/21 08:31 Ovalocytes 1+ 06/10/21 08:31 Helmet Cells Not Reportable 06/10/21 08:31 Graves-Rena Lara Bodies Not Reportable 06/10/21 08:31 Kamuela Rings Not Reportable 06/10/21 08:31 Dillingham Cells Not Reportable 06/10/21 08:31 Bite Cells Not Reportable 06/10/21 08:31 Crenated Cell Not Reportable 06/10/21 08:31 Elliptocytes Not Reportable 06/10/21 08:31 Acanthocytes (Spur) Not Reportable 06/10/21 08:31 Rouleaux Not Reportable 06/10/21 08:31 Hemoglobin C Crystals Not Reportable 06/10/21 08:31 Schistocytes Not Reportable 06/10/21 08:31 Malaria parasites Not Reportable 06/10/21 08:31 Koffi Bodies Not Reportable 06/10/21 08:31 Hem Pathologist Commnt No 06/10/21 08:31 PT 14.7 Sec. (12.2-14.9) 06/13/21 Unknown INR 1.03 (0.87-1.13) 06/13/21 Unknown APTT 52.6 Sec. (24.2-36.6) H 05/31/21 06:40 Heparin Anti-Xa Level 0.49 U.I./ml (0.3-0.7) 06/13/21 11:15 Sodium 144 mmol/L (137-145) 06/10/21 08:31 Potassium 4.6 mmol/L (3.6-5.0) D 06/10/21 08:31 Chloride 111.3 mmol/L (98-107) H 06/10/21 08:31 Carbon Dioxide 21 mmol/L (22-30) L 06/10/21 08:31 Anion Gap 16 mmol/L 06/10/21 08:31 BUN 9 mg/dL (7-17) 06/10/21 08:31 Creatinine 1.3 mg/dL (0.6-1.2) H 06/12/21 05:45 Estimated GFR 55 ml/min 06/12/21 05:45 BUN/Creatinine Ratio 6 % 06/10/21 08:31 Glucose 81 mg/dL (65-100) 06/10/21 08:31 Lactic Acid 0.70 mmol/L (0.7-2.0) 06/05/21 10:40 Calcium 8.5 mg/dL (8.4-10.2) 06/10/21 08:31 Total Bilirubin < 0.20 mg/dL (0.1-1.2) 06/10/21 08:31 AST 10 units/L (5-40) 06/10/21 08:31 ALT 9 units/L (7-56) 06/10/21 08:31 Alkaline Phosphatase 84 units/L (35-129) 06/10/21 08:31 Troponin T < 0.010 ng/mL (0.00-0.029) 05/30/21 04:46 Total Protein 5.7 g/dL (6.3-8.2) L D 06/10/21 08:31 Albumin 3.2 g/dL (3.9-5) L 06/10/21 08:31 Albumin/Globulin Ratio 1.3 % 06/10/21 08:31 Lipase 31 units/L (13-60) 05/30/21 04:41 TSH 0.034 mlU/mL (0.270-4.200) L 06/05/21 10:40 Free T4 1.29 ng/dL (0.76-1.46) 06/05/21 10:40 HCG, Qual Negative (Negative) 05/29/21 23:24 Urine Color Yellow (Yellow) 06/05/21 12:20 Urine Turbidity Slightly-cloudy (Clear) 06/05/21 12:20 Urine pH 6.0 (5.0-7.0) 06/05/21 12:20 Ur Specific Dawson 1.004 (1.003-1.030) 06/05/21 12:20 Urine Protein <15 mg/dl mg/dL (Negative) 06/05/21 12:20 Urine Glucose (UA) Neg mg/dL (Negative) 06/05/21 12:20 Urine Ketones Neg mg/dL (Negative) 06/05/21 12:20 Urine Blood Mod (Negative) 06/05/21 12:20 Urine Nitrite Neg (Negative) 06/05/21 12:20 Urine Bilirubin Neg (Negative) 06/05/21 12:20 Urine Urobilinogen < 2.0 mg/dL (<2.0) 06/05/21 12:20 Ur Leukocyte Esterase Neg (Negative) 06/05/21 12:20 Urine WBC (Auto) 2.0 /HPF (0.0-6.0) 06/05/21 12:20 Urine RBC (Auto) 37.0 /HPF (0.0-6.0) 06/05/21 12:20 U Epithel Cells (Auto) 3.0 /HPF (0-13.0) 06/05/21 12:20 Urine Bacteria (Auto) 4+ /HPF (Negative) 06/05/21 12:20 Urine Mucus Few /HPF 06/05/21 12:20 Vancomycin Trough 25.1 ug/mL (5.0-20.0) H 06/08/21 04:52 LAURA Screen Negative (Negative) 06/05/21 15:10 Coronavirus (PCR) Negative (Negative) 06/05/21 07:26 Influenza A (Rapid) Negative (Negative) 06/05/21 14:06 Influenza A (RT-PCR) Negative (Negative) 06/05/21 14:06 Influenza B (Rapid) Negative (Negative) 06/05/21 14:06 Influenza B (RT-PCR) Negative (Negative) 06/05/21 14:06 Blood Type B POSITIVE 06/10/21 08:33 Antibody Screen Negative 06/10/21 08:33 Crossmatch See Detail 06/10/21 08:33 Rojas/IV: Voiding Method Bedside Commode Active Medications - Current Medications Current Medications: Generic Name Dose Route Start Last Admin Trade Name Freq PRN Reason Stop Dose Admin Albuterol 2.5 mg 05/30/21 05:14 Albuterol 2.5 Mg/3 Ml Nebu IH Q3HRT PRN Shortness Of Breath Alprazolam 0.5 mg 06/09/21 08:00 06/13/21 21:47 Alprazolam 0.5 Mg Tab PO 0.5 mg BID ELLIOTT Administration Amlodipine Besylate 10 mg 06/12/21 10:00 06/13/21 09:03 Amlodipine 10 Mg Tab PO 10 mg QDAY ELLIOTT Administration Aspirin 81 mg 05/30/21 10:00 06/13/21 09:03 Aspirin Ec 81 Mg Tab PO 81 mg QDAY ELLIOTT Administration Famotidine 20 mg 05/30/21 10:00 06/13/21 21:47 Famotidine 20 Mg Tab PO 20 mg BID ELLIOTT Administration Gabapentin 100 mg 06/10/21 22:00 06/14/21 05:12 Gabapentin 100 Mg Cap PO 100 mg Q8HR ELLIOTT Administration Heparin Sodium (Porcine) 4,500 unit 06/03/21 09:46 Heparin 10,000 Units/10 Ml Vial 40 unit/kg (4500 unit) IV Q6H PRN Anti-Xa Assay < 0.1 units/ml Heparin Sodium/Sodium Chloride 25,000 unit in 500 mls @ 30 mls/hr 06/03/21 10:00 06/13/21 12:37 Heparin/ 0.45% Nacl-25,000 Unit/500 Ml IV 1,900 units/hr TITR ELLIOTT 38 mls/hr Titration Protocol 1,500 UNITS/HR Cefazolin Sodium 2 gm/ Sodium 100 mls @ 200 mls/hr 06/08/21 12:00 06/14/21 05:12 Chloride IV 07/19/21 18:29 200 mls/hr Q6HR ELLIOTT Administration Protocol Levetiracetam 500 mg 05/30/21 10:00 06/13/21 21:47 Levetiracetam 500 Mg Tab PO 500 mg BID ELLIOTT Administration Levothyroxine Sodium 150 mcg 06/06/21 06:00 06/14/21 05:12 Levothyroxine 150 Mcg Tab PO 150 mcg DAILY@0600 ELLIOTT Administration Morphine Sulfate 2 mg 06/03/21 09:30 06/14/21 06:47 Morphine 2 Mg/1 Ml Inj IV 2 mg Q8H PRN Administration Pain, Moderate (4-6) Ondansetron HCl 4 mg 06/05/21 08:00 06/14/21 06:47 Ondansetron 4 Mg/2 Ml Inj IV 4 mg Q4H PRN Administration Nausea And Vomiting Propranolol HCl 40 mg 05/30/21 10:00 06/13/21 21:47 Propranolol 40 Mg Tab PO 40 mg BID ELLIOTT Administration Quetiapine Fumarate 100 mg 05/30/21 10:00 06/13/21 09:03 Quetiapine 100 Mg Tab PO 100 mg QAM ELLIOTT Administration Sodium Chloride 10 ml 05/30/21 10:00 06/13/21 21:48 Sodium Chloride 0.9% 10 Ml Flush Syringe IV 10 ml BID ELLIOTT Administration Sodium Chloride 10 ml 04/10/22 05:14 Sodium Chloride 0.9% 10 Ml Flush Syringe IV PRN PRN LINE FLUSH Tramadol HCl 100 mg 06/09/21 08:00 06/13/21 22:52 Tramadol 50 Mg Tab PO 100 mg BID ELLIOTT Administration Warfarin Sodium 20 mg 06/13/21 17:00 06/13/21 17:49 Warfarin 10 Mg Tab PO 06/14/21 16:59 20 mg ONCE@1700 NR Administration Nutrition/Malnutrition Assess - Dietary Evaluation Nutrition/Malnutrition Findings: Nutrition Notes Start: 05/31/21 12:39 Freq: Status: Active Protocol: Document 06/14/21 07:31 KING (Rec: 06/14/21 07:42 KING [id number]) Nutrition Notes Initial or Follow up Reassessment Current Diagnosis Sepsis,Hypertension Other Pertinent Diagnosis Pulmonary embolism, Chest pain , Seizure D/O, Anxiety, Hypothyroidism Current Diet Renal Labs/Tests No current available Pertinent Medications Reviewed Height 5 ft 7 in Weight 111 kg [place] Body Weight (kg) 61.36 BMI 38.3 Weight Status Obese Subjective/Other Information Pt has consumed 50% of meals since last assessment. Not sure why pt prescribed renal diet on 06/11; no mention of renal dysfunction in MD notes. Cr lab increased to 1.4 on but is trending downward. Percent of energy/protein needs met: 58% energy 56% pro Burn Absent Trauma Absent Current % PO Fair (50-74%) #1 Nutrition Diagnosis Inadequate protein-energy intake Etiology medical dx, anxiety As Evidenced by Signs and Symptoms PO intake meeting <75% estimated energy and pro needs Is patient on ventilator? No Is Patient Ambulatory and/or Out of Bed Yes REE-([place]-St. Jeor-ambulatory/OOB) [ 2356.419 [id number]] Kcal/Kg value to use for calculation 16 Approximate Energy Requirements Using 1776 kcal/Kg Calculation Used for Recommendations Kcal/kg Additional Notes Pro needs 0.8-1g/kg adjBW: 69- 86g/day Fluid needs 1ml/kcal Nutrition Intervention Change Diet Order: Continue current diet order Add Supplement/Snack (indicate name/kcal Ensure High Protein once daily /protein ) Provides kCal: 160 Provides Protein (gm) 16 Goal #1 PO intake of meals plus ONS to meet at least 75% energy and pro needs Follow-Up By: 06/21/21 Additional Comments F/U: intakes (meals/ONS), renal function and need for renal diet, wt
[2021-06-14] MEDS: traMADol 50 MG TAB PO SCH ×2 (10:57→21:34)
[2021-06-14] MEDS: PROPRANOLOL 40 MG TAB PO SCH ×2 (10:57→21:38)
[2021-06-14] MEDS: levETIRAcetam 500 MG TAB PO SCH ×2 (10:57→21:35)
[2021-06-14] MEDS: amLODIPine 10 MG TAB PO SCH (10:58)
[2021-06-14] MEDS: FAMOTIDINE 20 MG TAB PO SCH ×2 (10:58→21:34)
[2021-06-14] MEDS: ALPRAZolam 0.5 MG TAB PO SCH ×2 (10:58→21:36)
[2021-06-14] MEDS: QUEtiapine 100 MG TAB PO SCH (10:58)
[2021-06-14] MEDS: ASPIRIN EC 81 MG TAB PO SCH (10:58)
[2021-06-14] MEDS ORDERED: SODIUM FERRIC GLUCON/SUCRO 125 MG in SODIUM CHLORIDE 0.9% 100 ML IV SCH (12:00)
--- NOTE | 2021-06-14 13:56 | Progress Note ---
Assessment and Plan Sepsis MSSA Bacteremia Acute pulmonary embolism Acute chest pain History of DVT on warfarin Seizure disorder Anxiety Hypothyroidism microcytic anemia Morbid obesity Hypotension (Resolved) - continue Warfarin; target INR 2.0 to 3.0 - continue care as below otherwise; - continue to trend H&H prn - PRBC transfusions for serum Hb < 7.0 g/dl - continue full anticoagulation with IV Heparin - follow H&H closely - continue vancomycin; de-escalate per ID recommendations - continue Keppra as AED - continue thyroid replacement therapy - s/p Ancef re: MSSA - follow clinically re: fever curves / trend WBC - supplemental oxygen to keep O2 sats > 90% - bronchodilators (ALVERTO) with pulm hygiene per RT - continue to avoid nephrotoxins, renally dose all medications - continue mobility protocols to prevent pressure ulcers - PT/OT as tolerated - Wound care per RN/WCT - continue accuchecks with glycemic control per SSI for target blood glucose < 180 mg/dL - tobacco abstinence strongly counseled at the bedside - home oxygen evaluation at discharge - prn analgesia per pain score - GI prophylaxis with Pepcid - Flu & pneumovax per protocol - Pulmonary out patient follow up for PFTs and optimization of respiratory status - life style modifications counseled re: weight loss, better medication compliance - continue other care per attending / other consultants ... re-evaluate in am & prn Subjective Date of service: 06/14/21 Principal diagnosis: Sepsis; Acute P.E.; Chest pain; H/O DVT; Seizures; Hypothyroidism; Obesity Interval history: Patient is seen today for: Sepsis; Acute pulmonary embolism; Acute chest pain; H/O DVT; Seizure disorder; Hypothyroidism; Anemia; Morbid obesity; Hypotension (Resolved); MSSA Bacteremia Seen and examined at bedside; 24hour events reviewed; nursing and respiratory care staff consulted; no adverse overnight events reported to me; resting peacefully in bed; Objective Vital Signs - 12hr 06/14/21 05:02 Temperature 97.8 F Pulse Rate 66 Respiratory 15 Rate Blood Pressure 139/75 O2 Sat by Pulse 100 Oximetry Constitutional: no acute distress, alert, other (elderly morbidly obese female without increased respiratory effort at rest) Eyes: non-icteric ENT: oropharynx moist Neck: supple, no lymphadenopathy, no JVD, other (large neck circumference; RIJ CVL) Effort: mildly labored Ascultation: Bilateral: clear, diminished breath sounds Percussion: Bilateral: not dull Cardiovascular: regular rate and rhythm Gastrointestinal: normoactive bowel sounds, soft, non-tender, other (distended but soft) Integumentary: normal Extremities: no cyanosis, no edema, pulses normal, no ischemia or petechiae Neurologic: non-focal exam (grossly), pupils equal and round, CN II-XII normal, motor strength normal and Psychiatric: mood appropriate, affect normal CBC and BMP: 06/10/21 08:31 06/12/21 05:45 ABG, PT/INR, D-dimer: PT/INR, D-dimer PT 14.7 Sec. (12.2-14.9) 06/13/21 Unknown INR 1.03 (0.87-1.13) 06/13/21 Unknown Abnormal lab findings: Abnormal Labs 05/29/21 05/29/21 05/29/21 23:24 23:24 23:29 WBC RBC Hgb 8.8 L Hct 28.7 L MCV 74 L MCH 23 L RDW 26.4 H Seg Neuts % (Manual) 75.0 H Lymphocytes % (Manual) Seg Neutrophils # Man Lymphocytes # (Manual) PT INR APTT 20.9 L Heparin Anti-Xa Level Sodium Chloride Carbon Dioxide 20 L Creatinine Calcium Total Protein Albumin 3.5 L TSH Vancomycin Trough Crossmatch 05/30/21 05/30/21 05/30/21 08:25 08:25 13:35 WBC RBC Hgb 8.8 L Hct 27.5 L MCV MCH RDW Seg Neuts % (Manual) Lymphocytes % (Manual) Seg Neutrophils # Man Lymphocytes # (Manual) PT 15.4 H INR APTT 107.1 H* Heparin Anti-Xa Level 0.82 H Sodium Chloride Carbon Dioxide Creatinine Calcium Total Protein Albumin TSH Vancomycin Trough Crossmatch 05/30/21 05/31/21 05/31/21 20:57 06:40 06:40 WBC 13.0 H RBC Hgb 8.9 L Hct 28.5 L MCV 74 L MCH 23 L RDW 25.7 H Seg Neuts % (Manual) 77.0 H Lymphocytes % (Manual) Seg Neutrophils # Man 10.0 H Lymphocytes # (Manual) PT INR APTT 52.6 H Heparin Anti-Xa Level 0.15 L 0.74 H Sodium Chloride Carbon Dioxide Creatinine Calcium Total Protein Albumin TSH Vancomycin Trough Crossmatch 06/01/21 06/01/21 06/02/21 09:55 10:27 06:15 WBC RBC Hgb 9.4 L Hct MCV MCH RDW Seg Neuts % (Manual) Lymphocytes % (Manual) Seg Neutrophils # Man Lymphocytes # (Manual) PT INR APTT Heparin Anti-Xa Level 0.13 L 0.25 L Sodium Chloride Carbon Dioxide Creatinine Calcium Total Protein Albumin TSH Vancomycin Trough Crossmatch 06/02/21 06/03/21 06/04/21 23:30 Unknown 07:39 WBC RBC Hgb 8.5 L Hct 28.0 L MCV MCH RDW Seg Neuts % (Manual) Lymphocytes % (Manual) Seg Neutrophils # Man Lymphocytes # (Manual) PT 15.0 H INR APTT Heparin Anti-Xa Level 0.19 L Sodium Chloride Carbon Dioxide Creatinine Calcium Total Protein Albumin TSH Vancomycin Trough Crossmatch 06/05/21 06/05/21 06/05/21 04:07 04:07 10:40 WBC RBC Hgb 8.4 L Hct 27.3 L MCV MCH RDW Seg Neuts % (Manual) Lymphocytes % (Manual) Seg Neutrophils # Man Lymphocytes # (Manual) PT 17.7 H INR 1.30 H APTT Heparin Anti-Xa Level Sodium Chloride Carbon Dioxide Creatinine Calcium Total Protein Albumin TSH 0.034 L Vancomycin Trough Crossmatch 06/05/21 06/05/21 06/06/21 10:40 11:01 04:00 WBC 14.0 H RBC 3.37 L Hgb 7.5 L Hct 24.8 L MCV 74 L MCH 22 L RDW 25.0 H Seg Neuts % (Manual) 94.0 H Lymphocytes % (Manual) 3.0 L Seg Neutrophils # Man 13.2 H Lymphocytes # (Manual) 0.4 L PT 17.4 H INR 1.27 H APTT Heparin Anti-Xa Level Sodium 135 L Chloride Carbon Dioxide 20 L Creatinine Calcium 7.8 L Total Protein Albumin TSH Vancomycin Trough Crossmatch 06/07/21 06/07/21 06/08/21 12:55 12:55 04:52 WBC RBC Hgb 7.1 L Hct 23.6 L MCV MCH RDW Seg Neuts % (Manual) Lymphocytes % (Manual) Seg Neutrophils # Man Lymphocytes # (Manual) PT 19.7 H INR 1.48 H APTT Heparin Anti-Xa Level Sodium Chloride 116.6 H Carbon Dioxide 18 L Creatinine Calcium 7.4 L Total Protein 4.7 L Albumin 2.7 L TSH Vancomycin Trough Crossmatch 06/08/21 06/09/21 06/09/21 04:52 06:46 06:46 WBC RBC 3.09 L Hgb 6.9 L Hct 22.4 L MCV 72 L MCH 22 L RDW 25.0 H Seg Neuts % (Manual) Lymphocytes % (Manual) Seg Neutrophils # Man Lymphocytes # (Manual) PT INR APTT Heparin Anti-Xa Level < 0.10 L Sodium Chloride Carbon Dioxide Creatinine Calcium Total Protein Albumin TSH Vancomycin Trough 25.1 H Crossmatch 06/09/21 06/10/21 06/10/21 Unknown 08:31 08:31 WBC RBC 3.17 L Hgb 7.1 L Hct 22.9 L MCV 72 L MCH 22 L RDW 25.5 H Seg Neuts % (Manual) 71.0 H Lymphocytes % (Manual) Seg Neutrophils # Man Lymphocytes # (Manual) 1.0 L PT 20.4 H 17.6 H INR 1.54 H 1.29 H APTT Heparin Anti-Xa Level Sodium Chloride Carbon Dioxide Creatinine Calcium Total Protein Albumin TSH Vancomycin Trough Crossmatch 06/10/21 06/10/21 06/11/21 08:31 08:33 08:25 WBC RBC Hgb Hct MCV MCH RDW Seg Neuts % (Manual) Lymphocytes % (Manual) Seg Neutrophils # Man Lymphocytes # (Manual) PT 16.3 H INR 1.17 H APTT Heparin Anti-Xa Level Sodium Chloride 111.3 H Carbon Dioxide 21 L Creatinine 1.4 H Calcium Total Protein 5.7 L D Albumin 3.2 L TSH Vancomycin Trough Crossmatch See Detail 06/12/21 06/12/21 05:45 05:45 WBC RBC Hgb Hct MCV MCH RDW Seg Neuts % (Manual) Lymphocytes % (Manual) Seg Neutrophils # Man Lymphocytes # (Manual) PT 16.1 H INR 1.16 H APTT Heparin Anti-Xa Level Sodium Chloride Carbon Dioxide Creatinine 1.3 H Calcium Total Protein Albumin TSH Vancomycin Trough Crossmatch Allied health notes reviewed: nursing
--- NOTE | 2021-06-14 15:24 | Progress Note ---
Subjective Date of service: 06/14/21 Principal diagnosis: Sepsis; Acute P.E.; Chest pain; H/O DVT; Seizures; Hypothyroidism; Obesity Interval history: Afebrile, normal white count. Objective - Constitutional Vitals: Vital Signs Temp Pulse Resp BP Pulse Ox 97.8 F 66 15 139/75 100 06/14/21 05:02 06/14/21 05:02 06/14/21 05:02 06/14/21 05:02 06/14/21 05:02 Temperature -Last 24 Hours Temperature 97.8 F Temperature 97.7 F Temperature 98.3 F - Labs CBC & Chem 7: 06/10/21 08:31 06/12/21 05:45
[2021-06-14 15:54] LABS: Hematocrit 26.3 % (30.3-42.9); Hemoglobin 8.2 gm/dl (10.1-14.3); Mean Corpuscular HGB Conc 31 % (30-34); Mean Corpuscular Volume 75 fl (79-97); Platelet Count 343 K/mm3 (140-440)
[2021-06-14 15:58] LABS: Red Cell Distribution Width 27.6 % (13.2-15.2)
[2021-06-14 16:04] LABS: INR 1.05 (0.87-1.13)
[2021-06-14 16:17] LABS: Albumin 3.5 g/dL (3.9-5); BUN/Creatinine Ratio 12; Blood Urea Nitrogen 13 mg/dL (7-17); Calcium 8.8 mg/dL (8.4-10.2); Hemolysis Index 1
[2021-06-14 16:32] LABS: Band Neutrophils # (Manual) 0.1 K/mm3; Basophils % (Manual) 0 % (0.0-1.8); Total Cells Counted 100
[2021-06-14 16:35] LABS: Anisocytosis 2+; Ovalocytes Few
[2021-06-14 16:36] LABS: Platelet Estimate Consistent w Auto
[2021-06-14 16:43] LABS: Alanine Aminotransferase < 5 units/L (7-56)
[2021-06-14] MEDS ORDERED: WARFARIN 7.5 MG TAB PO ONE (17:00)
[2021-06-14] MEDS ORDERED: WARFARIN 10 MG TAB PO NR (17:00)
--- NOTE | 2021-06-14 17:26 | Progress Note ---
Assessment and Plan 40 years old female with past medical history of hypertension, DVT, PE, GERD Hyperthyroidismwas brought to the hospital because of chest pain, retrosternal, sharp, radiating to back, 10/10, worsened by deep breaths, not relieved by anything, associated with SOB. Denies palpitations, diaphoresis. Endorses bilateral leg swelling, pain in her calves. Denies recent travel, immobilization, surgery, hospitalization, Hormonal contraceptive use. In the emergency room initial CT scan of the chest shows acute bilateral pulmonary thromboemboli with evidence of mild right ventricular strain. Scattered pneumonitis noted throughout the both lungs. Admitted the patient to the medical telemetry put the patient on IV heparin . Ordered echocardiogram Past Surgical History: Other (Left arm surgery 02/2017, Right knee, Rt leg. 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 Patient sleeping, morbidly Obese, weak. Patient is on room air. Patient suppose to use 3 litres O2. Stressed the importance of using O2 all the time. O2 saturation recorded 95%. Patient afebrile. No leukocytosis. Blood pressure 119/48, Pulse 71 , Respi rations 18. Patient is on I/V heparin, cefazolin, famotidine. I spent critical care time of 35 minutes in obtaining history, review the chart, examine the patient, review CAT scan of chest, review lab results, talking to the nursing staff and work up plan of treatment in critically ill patient with multiple medical problems. - Patient Problems (1) Pulmonary embolism Current Visit: Yes Status: Acute Plan to address problem: Patient is on I/V Heparin. (2) Acute chest pain Current Visit: No Status: Acute Plan to address problem: Recommend cardiology consultation also. (3) Abnormality of thoracic aorta Current Visit: No Status: Acute Plan to address problem: Patient has history of aortic dissection and TEVAR procedure. (4) Asthma Current Visit: No Status: Acute Plan to address problem: Albuterol inhaler 2 puffs po qid prn for shortness of breath. (5) Cardiomyopathy Current Visit: No Status: Acute Plan to address problem: Management as per cardiology. (6) DVT, bilateral lower limbs Current Visit: No Status: Acute Plan to address problem: Patient is on I/V Heparin. H/O IVC filter. 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 (8) Nicotine dependence unspecified, with withdrawal Current Visit: No Status: Acute Qualifiers: Plan to address problem: Counseled to stop smoking. (9) Obesity hypoventilation syndrome Current Visit: No Status: Acute Plan to address problem: ABGs on room air during day time. Recommend sleep study as out patient. Recommend to loose weight. Recommend not to drive or operate heavy equipment with sleepiness. Avoid alcohol, sedatives and Narcotics. Explained sleep hygiene. (10) Seizure disorder Current Visit: No Status: Acute Plan to address problem: Management as per primary care and neurology. (11) Bipolar disorder Current Visit: No Status: Chronic Qualifiers: Active/Remission status: in remission of unspecified degree Qualified Code( s): F31.70 - Bipolar disorder, currently in remission, most recent episode unspecified Plan to address problem: Management as per primary care and psychiatry. (12) GERD (gastroesophageal reflux disease) Current Visit: No Status: Chronic Qualifiers: Esophagitis presence: without esophagitis Qualified Code(s): K21.9 - Gastro-esophageal reflux disease without esophagitis Plan to address problem: Patient is on Famotidine. (13) Hypothyroidism (acquired) Current Visit: Yes Status: Acute Plan to address problem: Patient has history of thyrotoxicosis. Patient presently is hypothyroid. Patient is on levothyroxine. Subjective Date of service: 06/14/21 Principal diagnosis: Sepsis; Acute P.E.; Chest pain; H/O DVT; Seizures; Hypothyroidism; Obesity Interval history: 40 years old female with past medical history of hypertension, DVT, PE, GERD Hyperthyroidism was brought to the hospital because of chest pain, retrosternal pain, sharp, radiating to back, 10/10, worsened by deep breaths, not relieved by anything, associated with SOB. Denies palpitations, diaphoresis. Endorses bilateral leg swelling, pain in her calves. Denies recent travel, immobilization, surgery, hospitalization, Hormonal contraceptive use. In the emergency room initial CT scan of the chest shows acute bilateral pulmonary thromboemboli with evidence of mild right ventricular strain. Scattered pneumonitis noted throughout the both lungs. Admitted the patient to the medical telemetry put the patient on IV heparin . Ordered echocardiogram Past Surgical History: Other (Left arm surgery 02/2017, Right knee, Rt leg. 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 Patient sleeping, morbidly Obese, weak. Patient is on room air. Patient suppose to use 3 litres O2. Stressed the importance of using O2 all the time. O2 saturation recorded 95%. Patient afebrile. No leukocytosis. Blood pressure 119/48, Pulse 71 , Respiratio ns 18. Patient is on I/V heparin, cefazolin, famotidine. Objective Vital Signs - 12hr 06/14/21 16:19 Temperature 98.7 F Pulse Rate 71 Respiratory 18 Rate Blood Pressure 119/48 O2 Sat by Pulse 95 Oximetry Constitutional: no acute distress, asleep, other (elderly morbidly obese female without increased respiratory effort at rest) Eyes: non-icteric ENT: oropharynx moist Neck: supple, no lymphadenopathy, no JVD, other (large neck circumference; RIJ CVL) Effort: mildly labored Ascultation: Bilateral: diminished breath sounds Percussion: Bilateral: not dull Cardiovascular: regular rate and rhythm Gastrointestinal: normoactive bowel sounds, soft, non-tender, other (distended but soft) Integumentary: normal Extremities: no cyanosis, no edema, pulses normal, no ischemia or petechiae Neurologic: non-focal exam (grossly), pupils equal and round, CN II-XII normal, motor strength normal and Psychiatric: other (Sleeping at this time.) CBC and BMP: 06/14/21 Unknown 06/14/21 Unknown ABG, PT/INR, D-dimer: PT/INR, D-dimer PT 14.9 Sec. (12.2-14.9) 06/14/21 Unknown INR 1.05 (0.87-1.13) 06/14/21 Unknown Abnormal lab findings: Abnormal Labs 05/29/21 05/29/21 05/29/21 23:24 23:24 23:29 WBC RBC Hgb 8.8 L Hct 28.7 L MCV 74 L MCH 23 L RDW 26.4 H Seg Neuts % (Manual) 75.0 H Lymphocytes % (Manual) Seg Neutrophils # Man Lymphocytes # (Manual) PT INR APTT 20.9 L Heparin Anti-Xa Level Sodium Chloride Carbon Dioxide 20 L Creatinine Glucose Calcium ALT Total Protein Albumin 3.5 L TSH Vancomycin Trough Crossmatch 05/30/21 05/30/21 05/30/21 08:25 08:25 13:35 WBC RBC Hgb 8.8 L Hct 27.5 L MCV MCH RDW Seg Neuts % (Manual) Lymphocytes % (Manual) Seg Neutrophils # Man Lymphocytes # (Manual) PT 15.4 H INR APTT 107.1 H* Heparin Anti-Xa Level 0.82 H Sodium Chloride Carbon Dioxide Creatinine Glucose Calcium ALT Total Protein Albumin TSH Vancomycin Trough Crossmatch 05/30/21 05/31/21 05/31/21 20:57 06:40 06:40 WBC 13.0 H RBC Hgb 8.9 L Hct 28.5 L MCV 74 L MCH 23 L RDW 25.7 H Seg Neuts % (Manual) 77.0 H Lymphocytes % (Manual) Seg Neutrophils # Man 10.0 H Lymphocytes # (Manual) PT INR APTT 52.6 H Heparin Anti-Xa Level 0.15 L 0.74 H Sodium Chloride Carbon Dioxide Creatinine Glucose Calcium ALT Total Protein Albumin TSH Vancomycin Trough Crossmatch 06/01/21 06/01/21 06/02/21 09:55 10:27 06:15 WBC RBC Hgb 9.4 L Hct MCV MCH RDW Seg Neuts % (Manual) Lymphocytes % (Manual) Seg Neutrophils # Man Lymphocytes # (Manual) PT INR APTT Heparin Anti-Xa Level 0.13 L 0.25 L Sodium Chloride Carbon Dioxide Creatinine Glucose Calcium ALT Total Protein Albumin TSH Vancomycin Trough Crossmatch 06/02/21 06/03/21 06/04/21 23:30 Unknown 07:39 WBC RBC Hgb 8.5 L Hct 28.0 L MCV MCH RDW Seg Neuts % (Manual) Lymphocytes % (Manual) Seg Neutrophils # Man Lymphocytes # (Manual) PT 15.0 H INR APTT Heparin Anti-Xa Level 0.19 L Sodium Chloride Carbon Dioxide Creatinine Glucose Calcium ALT Total Protein Albumin TSH Vancomycin Trough Crossmatch 06/05/21 06/05/21 06/05/21 04:07 04:07 10:40 WBC RBC Hgb 8.4 L Hct 27.3 L MCV MCH RDW Seg Neuts % (Manual) Lymphocytes % (Manual) Seg Neutrophils # Man Lymphocytes # (Manual) PT 17.7 H INR 1.30 H APTT Heparin Anti-Xa Level Sodium Chloride Carbon Dioxide Creatinine Glucose Calcium ALT Total Protein Albumin TSH 0.034 L Vancomycin Trough Crossmatch 06/05/21 06/05/21 06/06/21 10:40 11:01 04:00 WBC 14.0 H RBC 3.37 L Hgb 7.5 L Hct 24.8 L MCV 74 L MCH 22 L RDW 25.0 H Seg Neuts % (Manual) 94.0 H Lymphocytes % (Manual) 3.0 L Seg Neutrophils # Man 13.2 H Lymphocytes # (Manual) 0.4 L PT 17.4 H INR 1.27 H APTT Heparin Anti-Xa Level Sodium 135 L Chloride Carbon Dioxide 20 L Creatinine Glucose Calcium 7.8 L ALT Total Protein Albumin TSH Vancomycin Trough Crossmatch 06/07/21 06/07/21 06/08/21 12:55 12:55 04:52 WBC RBC Hgb 7.1 L Hct 23.6 L MCV MCH RDW Seg Neuts % (Manual) Lymphocytes % (Manual) Seg Neutrophils # Man Lymphocytes # (Manual) PT 19.7 H INR 1.48 H APTT Heparin Anti-Xa Level Sodium Chloride 116.6 H Carbon Dioxide 18 L Creatinine Glucose Calcium 7.4 L ALT Total Protein 4.7 L Albumin 2.7 L TSH Vancomycin Trough Crossmatch 06/08/21 06/09/21 06/09/21 04:52 06:46 06:46 WBC RBC 3.09 L Hgb 6.9 L Hct 22.4 L MCV 72 L MCH 22 L RDW 25.0 H Seg Neuts % (Manual) Lymphocytes % (Manual) Seg Neutrophils # Man Lymphocytes # (Manual) PT INR APTT Heparin Anti-Xa Level < 0.10 L Sodium Chloride Carbon Dioxide Creatinine Glucose Calcium ALT Total Protein Albumin TSH Vancomycin Trough 25.1 H Crossmatch 06/09/21 06/10/21 06/10/21 Unknown 08:31 08:31 WBC RBC 3.17 L Hgb 7.1 L Hct 22.9 L MCV 72 L MCH 22 L RDW 25.5 H Seg Neuts % (Manual) 71.0 H Lymphocytes % (Manual) Seg Neutrophils # Man Lymphocytes # (Manual) 1.0 L PT 20.4 H 17.6 H INR 1.54 H 1.29 H APTT Heparin Anti-Xa Level Sodium Chloride Carbon Dioxide Creatinine Glucose Calcium ALT Total Protein Albumin TSH Vancomycin Trough Crossmatch 06/10/21 06/10/21 06/11/21 08:31 08:33 08:25 WBC RBC Hgb Hct MCV MCH RDW Seg Neuts % (Manual) Lymphocytes % (Manual) Seg Neutrophils # Man Lymphocytes # (Manual) PT 16.3 H INR 1.17 H APTT Heparin Anti-Xa Level Sodium Chloride 111.3 H Carbon Dioxide 21 L Creatinine 1.4 H Glucose Calcium ALT Total Protein 5.7 L D Albumin 3.2 L TSH Vancomycin Trough Crossmatch See Detail 06/12/21 06/12/21 06/14/21 05:45 05:45 Unknown WBC RBC Hgb Hct MCV MCH RDW Seg Neuts % (Manual) Lymphocytes % (Manual) Seg Neutrophils # Man Lymphocytes # (Manual) PT 16.1 H INR 1.16 H APTT Heparin Anti-Xa Level 0.26 L Sodium Chloride Carbon Dioxide Creatinine 1.3 H Glucose Calcium ALT Total Protein Albumin TSH Vancomycin Trough Crossmatch 06/14/21 06/14/21 Unknown Unknown WBC RBC 3.50 L Hgb 8.2 L Hct 26.3 L MCV 75 L MCH 24 L RDW 27.6 H Seg Neuts % (Manual) Lymphocytes % (Manual) Seg Neutrophils # Man Lymphocytes # (Manual) PT INR APTT Heparin Anti-Xa Level Sodium Chloride Carbon Dioxide Creatinine Glucose 107 H Calcium ALT < 5 L Total Protein 5.9 L Albumin 3.5 L TSH Vancomycin Trough Crossmatch Allied health notes reviewed: nursing
--- NOTE | 2021-06-14 18:02 | Hem/Onc Progress Note ---
Subjective Interval history: HEME NOTE CHART AND DATA REVIEWED 40YO obese AA woman 244 lbs with h/o clotting, including PE and maybe cardiac cl ot has had reactions to DOAC and lovenox--.prescribed coumadin but assumed to be not taking it (based on subtherapeutic INR) per notes she has had heavy menstrual bleeding-->found to have low MCV, needed RBC transfusion Chest CT shows evidence of PE and pneumonitis changes IMP: clotting tendency--s/p "new" PE, now "requiring" anticoag likely not taking coumadin, but she has the challenge that she likely has heavier menstrual bleeding on coumadin doubt she has "coumadin resistance" r/o APLS or sickle cell trait recent severe iron deficiency presumed-->s/p RBC transfusion PLAN: labs ordered IV iron infusions IV heparin-->coumadin I recommend that she stays in [facility] until PT INR>2, so you will know her dose observe her for inpatient medication noncompliance (make sure she takes coumadin) Objective - Constitutional Vitals: Last Vital Signs Temp 98.7 F 06/14/21 16:19 Pulse 71 06/14/21 16:19 Resp 18 06/14/21 16:19 BP 119/48 06/14/21 16:19 Pulse Ox 95 06/14/21 16:19 - Labs Lab Results: Laboratory Results - last 24 hr 06/14/21 06/14/21 06/14/21 Unknown Unknown Unknown WBC 7.3 RBC 3.50 L Hgb 8.2 L Hct 26.3 L MCV 75 L MCH 24 L MCHC 31 RDW 27.6 H Plt Count 343 Add Manual Diff Complete Total Counted 100 Seg Neuts % (Manual) 60.0 Band Neutrophils % 1.0 Lymphocytes % (Manual) 31.0 Reactive Lymphs % (Man) 0 Monocytes % (Manual) 6.0 Eosinophils % (Manual) 2.0 Basophils % (Manual) 0 Metamyelocytes % 0 Myelocytes % 0 Promyelocytes % 0 Blast Cells % 0 Nucleated RBC % Not Reportable Seg Neutrophils # Man 4.4 Band Neutrophils # 0.1 Lymphocytes # (Manual) 2.3 Abs React Lymphs (Man) 0.0 Monocytes # (Manual) 0.4 Eosinophils # (Manual) 0.1 Basophils # (Manual) 0.0 Metamyelocytes # 0.0 Myelocytes # 0.0 Promyelocytes # 0.0 Blast Cells # 0.0 WBC Morphology Not Reportable Hypersegmented Neuts Not Reportable Hyposegmented Neuts Few Hypogranular Neuts Not Reportable Smudge Cells Not Reportable Toxic Granulation Not Reportable Toxic Vacuolation Not Reportable Dohle Bodies Not Reportable Pelger-Huet Anomaly Not Reportable Jaime Rods Not Reportable Platelet Estimate Consistent w auto Clumped Platelets Not Reportable Plt Clumps, EDTA Not Reportable Large Platelets Not Reportable Giant Platelets Not Reportable Platelet Satelliting Not Reportable Plt Morphology Comment Not Reportable RBC Morphology Not Reportable Dimorphic RBCs Not Reportable Polychromasia Not Reportable Hypochromasia Not Reportable Poikilocytosis Not Reportable Anisocytosis 2+ Microcytosis 1+ Macrocytosis Not Reportable Spherocytes Not Reportable Pappenheimer Bodies Not Reportable Sickle Cells Not Reportable Target Cells Not Reportable Tear Drop Cells Not Reportable Ovalocytes Few Helmet Cells Not Reportable [place] Bodies Not Reportable [place] Rings Not Reportable [place] Cells Not Reportable Bite Cells Not Reportable Crenated Cell Not Reportable Elliptocytes Not Reportable Acanthocytes (Spur) Not Reportable Rouleaux Not Reportable Hemoglobin C Crystals Not Reportable Schistocytes Not Reportable Malaria parasites Not Reportable Koffi Bodies Not Reportable Hem Pathologist Commnt No PT 14.9 INR 1.05 Heparin Anti-Xa Level 0.26 L Sodium Potassium Chloride Carbon Dioxide Anion Gap BUN Creatinine Estimated GFR BUN/Creatinine Ratio Glucose Calcium Total Bilirubin AST ALT Alkaline Phosphatase Total Protein Albumin Albumin/Globulin Ratio 06/14/21 Unknown WBC RBC Hgb Hct MCV MCH MCHC RDW Plt Count Add Manual Diff Total Counted Seg Neuts % (Manual) Band Neutrophils % Lymphocytes % (Manual) Reactive Lymphs % (Man) Monocytes % (Manual) Eosinophils % (Manual) Basophils % (Manual) Metamyelocytes % Myelocytes % Promyelocytes % Blast Cells % Nucleated RBC % Seg Neutrophils # Man Band Neutrophils # Lymphocytes # (Manual) Abs React Lymphs (Man) Monocytes # (Manual) Eosinophils # (Manual) Basophils # (Manual) Metamyelocytes # Myelocytes # Promyelocytes # Blast Cells # WBC Morphology Hypersegmented Neuts Hyposegmented Neuts Hypogranular Neuts Smudge Cells Toxic Granulation Toxic Vacuolation Dohle Bodies Pelger-Huet Anomaly Jaime Rods Platelet Estimate Clumped Platelets Plt Clumps, EDTA Large Platelets Giant Platelets Platelet Satelliting Plt Morphology Comment RBC Morphology Dimorphic RBCs Polychromasia Hypochromasia Poikilocytosis Anisocytosis Microcytosis Macrocytosis Spherocytes Pappenheimer Bodies Sickle Cells Target Cells Tear Drop Cells Ovalocytes Helmet Cells [place] Bodies [place] Rings [place] Cells Bite Cells Crenated Cell Elliptocytes Acanthocytes (Spur) Rouleaux Hemoglobin C Crystals Schistocytes Malaria parasites Koffi Bodies Hem Pathologist Commnt PT INR Heparin Anti-Xa Level Sodium 140 Potassium 4.2 Chloride 105.0 Carbon Dioxide 24 Anion Gap 15 BUN 13 Creatinine 1.1 Estimated GFR > 60 BUN/Creatinine Ratio 12 Glucose 107 H Calcium 8.8 Total Bilirubin < 0.20 AST 8 ALT < 5 L Alkaline Phosphatase 73 Total Protein 5.9 L Albumin 3.5 L Albumin/Globulin Ratio 1.5 Medications & Allergies - Medications Allergies/Adverse Reactions: Allergies acetaminophen [From Tylenol] Allergy (Verified 12/16/20 11:52) Hives enoxaparin [From Lovenox] Allergy (Verified 01/18/21 13:51) Rash, fever, vomiting garlic Allergy (Verified 01/18/21 13:51) Hives oxycodone [From Percocet] Allergy (Verified 01/18/21 13:51) Itching, rash peanut oil Allergy (Verified 01/18/21 13:51) Rash Penicillins Allergy (Verified 01/18/21 13:51) hives, vomiting ibuprofen [From Motrin] Adverse Reaction (Verified 01/18/21 13:51) nausea/vomiting Home Medications: Home Medications Medication Instructions Recorded Confirmed Last Taken Type Aspirin EC [Halfprin EC] 81 mg PO QDAY #30 01/01/20 05/31/21 05/30/21 Rx Warfarin [Coumadin] 7.5 mg PO DAILY@1700 #30 tablet 04/22/20 05/31/21 05/30/21 Rx QUEtiapine [SEROquel] 100 mg PO QAM 01/16/21 05/31/21 05/30/21 History Quetiapine Fumarate [SEROquel] 300 mg PO QHS 01/16/21 05/31/21 05/31/21 12:48 History levETIRAcetam [Keppra TAB] 500 mg PO BID 01/16/21 05/31/21 05/30/21 History traMADoL [Ultram] 100 mg PO TID 01/16/21 05/31/21 05/30/21 History ALPRAZolam [Xanax TAB] 0.5 mg PO TID 01/18/21 05/31/21 05/30/21 History Gabapentin [Neurontin] 300 mg PO TID 01/18/21 05/31/21 05/31/21 12:49 History propranoloL [Inderal] 40 mg PO BID 01/18/21 05/31/21 05/30/21 History predniSONE [Deltasone] 40 mg PO QDAY #10 tab 05/18/21 05/31/21 05/30/21 Rx Active Medications: Generic Name Dose Route Start Last Admin Trade Name Freq PRN Reason Stop Dose Admin Albuterol 2.5 mg 05/30/21 05:14 Albuterol 2.5 Mg/3 Ml Nebu IH Q3HRT PRN Shortness Of Breath Alprazolam 0.5 mg 06/09/21 08:00 06/14/21 10:58 Alprazolam 0.5 Mg Tab PO 0.5 mg BID ELLIOTT Administration Amlodipine Besylate 10 mg 06/12/21 10:00 06/14/21 10:58 Amlodipine 10 Mg Tab PO 10 mg QDAY ELLIOTT Administration Aspirin 81 mg 05/30/21 10:00 06/14/21 10:58 Aspirin Ec 81 Mg Tab PO 81 mg QDAY ELLIOTT Administration Famotidine 20 mg 05/30/21 10:00 06/14/21 10:58 Famotidine 20 Mg Tab PO 20 mg BID ELLIOTT Administration Gabapentin 100 mg 06/10/21 22:00 06/14/21 15:08 Gabapentin 100 Mg Cap PO 100 mg Q8HR ELLIOTT Administration Heparin Sodium (Porcine) 4,500 unit 06/03/21 09:46 Heparin 10,000 Units/10 Ml Vial 40 unit/kg (4500 unit) IV Q6H PRN Anti-Xa Assay < 0.1 units/ml Heparin Sodium/Sodium Chloride 25,000 unit in 500 mls @ 30 mls/hr 06/03/21 10:00 06/13/21 12:37 Heparin/ 0.45% Nacl-25,000 Unit/500 Ml IV 1,900 units/hr TITR ELLIOTT 38 mls/hr Titration Protocol 1,500 UNITS/HR Cefazolin Sodium 2 gm/ Sodium 100 mls @ 200 mls/hr 06/08/21 12:00 06/14/21 11:05 Chloride IV 07/19/21 18:29 200 mls/hr Q6HR ELLIOTT Administration Protocol Levetiracetam 500 mg 05/30/21 10:00 06/14/21 10:57 Levetiracetam 500 Mg Tab PO 500 mg BID ELLIOTT Administration Levothyroxine Sodium 150 mcg 06/06/21 06:00 06/14/21 05:12 Levothyroxine 150 Mcg Tab PO 150 mcg DAILY@0600 ELLIOTT Administration Morphine Sulfate 2 mg 06/03/21 09:30 06/14/21 15:08 Morphine 2 Mg/1 Ml Inj IV 2 mg Q8H PRN Administration Pain, Moderate (4-6) Ondansetron HCl 4 mg 06/05/21 08:00 06/14/21 06:47 Ondansetron 4 Mg/2 Ml Inj IV 4 mg Q4H PRN Administration Nausea And Vomiting Propranolol HCl 40 mg 05/30/21 10:00 06/14/21 10:57 Propranolol 40 Mg Tab PO 40 mg BID ELLIOTT Administration Quetiapine Fumarate 100 mg 05/30/21 10:00 06/14/21 10:58 Quetiapine 100 Mg Tab PO 100 mg QAM ELLIOTT Administration Sodium Chloride 10 ml 05/30/21 10:00 06/13/21 21:48 Sodium Chloride 0.9% 10 Ml Flush Syringe IV 10 ml BID ELLIOTT Administration Sodium Chloride 10 ml 05/30/21 05:14 Sodium Chloride 0.9% 10 Ml Flush Syringe IV PRN PRN LINE FLUSH Tramadol HCl 100 mg 06/09/21 08:00 06/14/21 10:57 Tramadol 50 Mg Tab PO 100 mg BID ELLIOTT Administration Warfarin Sodium 20 mg 06/14/21 17:00 Warfarin 10 Mg Tab PO 06/14/21 18:00 ONCE@1700 NR
[2021-06-14] MEDS: HEPARIN/ 0.45% NACL DRIP 25,000 UNIT/500 ML BAG IV SCH (20:25)
[2021-06-15 02:48] LABS: BUN/Creatinine Ratio 12; Blood Urea Nitrogen 13 mg/dL (7-17); Calcium 8.6 mg/dL (8.4-10.2); Hemolysis Index 0
[2021-06-15 04:07] LABS: INR 1.09 (0.87-1.13)
[2021-06-15 04:17] LABS: Hematocrit 25.8 % (30.3-42.9); Hemoglobin 8.3 gm/dl (10.1-14.3); Mean Corpuscular HGB Conc 32 % (30-34); Mean Corpuscular Volume 74 fl (79-97); Platelet Count 428 K/mm3 (140-440); Red Blood Count 3.47 M/mm3 (3.65-5.03)
[2021-06-15 04:27] LABS: Red Cell Distribution Width 27.3 % (13.2-15.2)
[2021-06-15 05:34] LABS: Anisocytosis 2+; Basophils % (Manual) 0 % (0.0-1.8); Hypochromasia 2+; Total Cells Counted 100
[2021-06-15 05:35] LABS: Platelet Estimate Consistent w Auto; Schistocytes Rare
[2021-06-15] MEDS: LEVOTHYROXINE 150 MCG TAB PO SCH (06:05)
[2021-06-15] MEDS: MORPHINE 2 MG/1 ML INJ IV PRN ×2 (06:05→15:05)
[2021-06-15] MEDS: GABAPENTIN 100 MG CAP PO SCH ×3 (06:05→21:35)
[2021-06-15] MEDS: ALPRAZolam 0.5 MG TAB PO SCH ×2 (10:38→21:35)
[2021-06-15] MEDS: ASPIRIN EC 81 MG TAB PO SCH (10:38)
[2021-06-15] MEDS: levETIRAcetam 500 MG TAB PO SCH ×2 (10:38→21:35)
[2021-06-15] MEDS: PROPRANOLOL 40 MG TAB PO SCH ×2 (10:38→21:41)
[2021-06-15] MEDS: FAMOTIDINE 20 MG TAB PO SCH ×2 (10:38→21:35)
[2021-06-15] MEDS: amLODIPine 10 MG TAB PO SCH (10:38)
[2021-06-15] MEDS: QUEtiapine 100 MG TAB PO SCH (10:39)
[2021-06-15] MEDS: traMADol 50 MG TAB PO SCH ×2 (10:39→21:35)
[2021-06-15 10:47] LABS: ABG Base Excess 2.9 mmol/L (-2.0-3.0); ABG HCO3 28.1 mmol/L (20.0-26.0); ABG Methemoglobin 0.7 % (0.0-1.5); ABG Oxygen Saturation 69.2 % (95.0-99.0); ABG PCO2 46.2 mm Hg; ABG PH 7.401 pH Units (7.350-7.450); ABG PO2 41.6 mm Hg (80.0-90.0)
--- NOTE | 2021-06-15 11:14 | Progress Note ---
Assessment and Plan Assessment and plan: 40 years old female with past medical history of hypertension, PE x2, (R lung 05/2016, L lung 01/2017--on coumadin), R leg DVT 03/2017, Graves Disease, heart murmur, aortic dissection, PERICARDITIS, thyroid storm, and GERD admitted for acute bilateral pulmonary thromboemboli with evidence of mild right ventricular strain on heparin gtt and warfarin. Assessment and Plan: Sepsis, MSSA bacteremia -Etiology unclear, line infection vs endocarditis, infected TEVAR graft. -06/04 bcx: 3/ bottles MSSA - 06/07 bcx: NGTD - urine culture: NGTD -TTE negative for valvular vegetations -HANK negative for endocarditis - ID following -Continue Ancef -DAVID PICC line noted, remove RIJ CVC Hypotension (resolved) -Patient with low blood pressure at night -IVF started -avoid antihypotensives -labetalol currently held Acute pulmonary embolism History of DVT on warfarin Troponin unremarkable, chest x-ray unremarkable, bilateral lower extremity venous Dopplers unremarkable for acute DVT CT angio chest revealing acute bilateral pulmonary emboli with evidence of right heart strain Home medication of warfarin 7.5 mg daily; however, INR 1.03. Patient endorses being compliant with her anticoagulation. Continue heparin drip and bridged warfarin daily until therapeutic (goal 2.53.5). TTE without evidence of right heart strain Patient needs to be taking BOTH warfarin and heparin until INR goal of 2.5 achieved. - Remains subtherapeutic despite Heparin and Warfarin - Hematology consulted for possible warfarin resistance history of mechanical heart valve - goal inr 2.5. Seizure disorder Anxiety Continue home medications: Keppra 500 mg twice daily, Quetiapine 100 mg every morning and 300 mg nightly, alprazolam 0.5 mg 3 times daily History of aortic dissection s/p tevar. Hypothyroidism -resume home levothyroxine microcytic anemia -stable Transfuse if hemoglobin less than 7 or patient become symptomatic Morbid obesity Weight loss counseling Exercise counseling - BMI 39.1 - Counseled patient on the importance of weight loss, incorporating exercise, and dietary changes (lean meats, fresh fruits and vegetables, and water intake). Patient expresses understanding. Hospital Course: 06/05: Is unclear to me why the patient was transferred to the [facility] as I do not have any clear documentation to the results but in effect I was told by the nurse that the patient had pulled out his for her femoral line and did not have an access. Patient appears to have been having fever for a few days no known etiology we will proceed with a sepsis work-up although closely reviewing her case shows a history of thyroid storm in the past and she has not been receiving her thyroid medication while she does not have confusion at this time she does have tachycardia and tachypnea. We will give her a dose of IV levothyroxine today and start her daily dose of levothyroxine a.m. She has been on her propranolol although her home dose appears confusing as she gets 40 mg once daily and also 20 mg twice a day will discuss with her to clarify this and also with her pharmacy. She did have a right IJ triple-lumen catheter placed yesterday I discussed with her in the setting of well-documented by the nurse that she takes Midol at home which contains acetaminophen she is agreeable to trial acetaminophen as she wants to come off the cooling blanket. I also consulted ID and ordered a urinalysis with urine culture and some fluid support. I reviewed her CT scan and echocardiogram while the CT mentions the pulmonary embolism with mild right heart strain the echo shows a RVSP of 32 mmHg. 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 She continues on heparin drip while awaiting for therapeutic INR. In the meantime continue with antibiotic Right internal jugular vein triple-lumen catheter placement under ultrasound guidance 06/06: Patient seen and examined, showing some improvement, will follow cultures result, Continue abx, clinical stable, ID input, close eye on Hemoglobin. WBC mildly trended up. will transfer back to [facility]. 06/07: Continue supportive care, awaiting Cultures for ID and sensitivity in the meantime continue antibiotic. Am LABS. Patient continues on heparin drip until INR is therapeutic. I encouraged her to ambulate in her room and also set up on the chair. Cultures for COVID was negative. We will obtain PT OT evaluation. In short summary patient is a 40-year-old female with hypertension pulmonary embolism lower extremity DVT in the past on Coumadin who presented with shortness of breath diagnosed with pulmonary embolism admitted intermittently sepsis doubt septic emboli currently on antibiotics. Restarted on her thyroid medication with no evidence of thyroid storm. 06/08: resting comfortably on encounter. Afebrile today. Vital signs improved. 94% on 3L/min NC. Pain medication appears to be excessive as patient is heavily sedated, will scale back pain medication. D/w cardiology Dr Canseco regarding concern for endocarditis and possible infected TEVAR graft as potential source of infection. Consult placed for HANK. Will continue to follow culture data. Continue IV vancomycin per ID direction. INR remains subtherapeutic for treatment of DVT/PE but increased to 1.48, will continue warfarin at current do jerald and heparin gtt at this time. 06/09: continue therapy for MSSA bacteremia. Awaiting HAKN completion. INR 1.54, warfarin 12.5 mg dose given today. Anemic today 6.9, ordered 1 unit prbc. Patient denies any rectal bleeding, bleeding from lines, hematemesis. Suspect anemia of chronic disease and possibly iatrogenic induced from multiple blood draw/line placement attempts. Lower suspicion for occult hematoma but will order CTAP. 06/10: Abx orders noted by ID. INR remains subtherapetuic, did not receive warfarin dose for some apparent reason. Pharmacy will give 15 mg dose today. Occult bleed r/o on ctap. No rectal bleeding reported. Will transfuse 1 unit prbc. Restart heparin gtt. Will follow up results of HANK from today. 06/11: HANK negative for endocarditis. INR subtherapuetic. unfortunately patient has missed last two day of warfarin dosing and inr reflects this. Patient could also be warfarin resistant. Patient needs to be receiving BOTH warfarin and heparin gtt until INR goal of 2.5 achieved. D/w pharmacy, will continue with 15 mg dosing at this time. Continue Iv abx. Discharge plan is for early next week. 06/12: Hypertensive this AM, added amlodipine for better BP control. INR 1.16. Continue heparin gtt while transitioning to warfarin. Plan for discharge early next week. CM working on OP IV abx arrangement. 06/13: Continue heparin gtt and warfarin. INR remains subtherapeutic. 06/14: Patient remains subtherapeutic despite heparin gtt and Warfarin. Will consult hematology for possible warfarin resistance and for further recs. Continue heparin gtt and warfarin for now. Patient remains on IV Abx, ancef per ID, DAVID PICC line noted remove RIJ CVC. 06/15: Continue heparin drip and warfarin until INR at goal of 2.5. . Patient remains on IV Abx, ancef per ID, DAVID PICC line noted remove RIJ CVC. History Interval history: No new issues overnight Hospitalist Physical - Constitutional Vitals: Temp Pulse Resp BP Pulse Ox 98.2 F 57 L 18 144/69 95 06/15/21 04:22 06/15/21 04:22 06/15/21 04:22 06/15/21 04:22 06/15/21 04:22 General appearance: Present: no acute distress, well-nourished, obese - EENT Eyes: Present: PERRL, EOM intact ENT: hearing intact, clear oral mucosa, dentition normal - Neck Neck: Present: supple, normal ROM - Respiratory Respiratory effort: normal Respiratory: bilateral: CTA - Cardiovascular Rhythm: regular Heart Sounds: Present: S1 & S2. Absent: gallop, rub - Extremities Extremities: no ischemia, No edema, Full ROM - Abdominal General gastrointestinal: soft, non-tender, non-distended, normal bowel sounds - Integumentary Integumentary: Present: clear, warm, dry - Neurologic Neurologic: CNII-XII intact, moves all extremities HEART Score - HEART Score Troponin: Troponin T < 0.010 ng/mL (0.00-0.029) 05/30/21 04:46 Results - Labs CBC & Chem 7: 06/15/21 03:56 06/15/21 02:04 Labs: Laboratory Last Values WBC 8.1 K/mm3 (4.5-11.0) 06/15/21 03:56 RBC 3.47 M/mm3 (3.65-5.03) L 06/15/21 03:56 Hgb 8.3 gm/dl (10.1-14.3) L 06/15/21 03:56 Hct 25.8 % (30.3-42.9) L 06/15/21 03:56 MCV 74 fl (79-97) L 06/15/21 03:56 MCH 24 pg (28-32) L 06/15/21 03:56 MCHC 32 % (30-34) 06/15/21 03:56 RDW 27.3 % (13.2-15.2) H 06/15/21 03:56 Plt Count 428 K/mm3 (140-440) 06/15/21 03:56 Add Manual Diff Complete 06/15/21 03:56 Total Counted 100 06/15/21 03:56 Seg Neuts % (Manual) 72.0 % (40.0-70.0) H 06/15/21 03:56 Band Neutrophils % 0 % 06/15/21 03:56 Lymphocytes % (Manual) 17.0 % (13.4-35.0) 06/15/21 03:56 Reactive Lymphs % (Man) 0 % 06/15/21 03:56 Monocytes % (Manual) 5.0 % (0.0-7.3) 06/15/21 03:56 Eosinophils % (Manual) 6.0 % (0.0-4.3) H 06/15/21 03:56 Basophils % (Manual) 0 % (0.0-1.8) 06/15/21 03:56 Metamyelocytes % 0 % 06/15/21 03:56 Myelocytes % 0 % 06/15/21 03:56 Promyelocytes % 0 % 06/15/21 03:56 Blast Cells % 0 % 06/15/21 03:56 Nucleated RBC % Not Reportable 06/15/21 03:56 Seg Neutrophils # Man 5.8 K/mm3 (1.8-7.7) 06/15/21 03:56 Band Neutrophils # 0.0 K/mm3 06/15/21 03:56 Lymphocytes # (Manual) 1.4 K/mm3 (1.2-5.4) 06/15/21 03:56 Abs React Lymphs (Man) 0.0 K/mm3 06/15/21 03:56 Monocytes # (Manual) 0.4 K/mm3 (0.0-0.8) 06/15/21 03:56 Eosinophils # (Manual) 0.5 K/mm3 (0.0-0.4) H 06/15/21 03:56 Basophils # (Manual) 0.0 K/mm3 (0.0-0.1) 06/15/21 03:56 Metamyelocytes # 0.0 K/mm3 06/15/21 03:56 Myelocytes # 0.0 K/mm3 06/15/21 03:56 Promyelocytes # 0.0 K/mm3 06/15/21 03:56 Blast Cells # 0.0 K/mm3 06/15/21 03:56 WBC Morphology Not Reportable 06/15/21 03:56 Hypersegmented Neuts Not Reportable 06/15/21 03:56 Hyposegmented Neuts Not Reportable 06/15/21 03:56 Hypogranular Neuts Not Reportable 06/15/21 03:56 Smudge Cells Not Reportable 06/15/21 03:56 Toxic Granulation Not Reportable 06/15/21 03:56 Toxic Vacuolation Not Reportable 06/15/21 03:56 Dohle Bodies Not Reportable 06/15/21 03:56 Pelger-Huet Anomaly Not Reportable 06/15/21 03:56 Jaime Rods Not Reportable 06/15/21 03:56 Platelet Estimate Consistent w auto 06/15/21 03:56 Clumped Platelets Not Reportable 06/15/21 03:56 Plt Clumps, EDTA Not Reportable 06/15/21 03:56 Large Platelets Not Reportable 06/15/21 03:56 Giant Platelets Not Reportable 06/15/21 03:56 Platelet Satelliting Not Reportable 06/15/21 03:56 Plt Morphology Comment Not Reportable 06/15/21 03:56 RBC Morphology Not Reportable 06/15/21 03:56 Dimorphic RBCs Not Reportable 06/15/21 03:56 Polychromasia Not Reportable 06/15/21 03:56 Hypochromasia 2+ 06/15/21 03:56 Poikilocytosis Not Reportable 06/15/21 03:56 Anisocytosis 2+ 06/15/21 03:56 Microcytosis 1+ 06/15/21 03:56 Macrocytosis Not Reportable 06/15/21 03:56 Spherocytes Not Reportable 06/15/21 03:56 Pappenheimer Bodies Not Reportable 06/15/21 03:56 Sickle Cells Not Reportable 06/15/21 03:56 Target Cells Not Reportable 06/15/21 03:56 Tear Drop Cells Not Reportable 06/15/21 03:56 Ovalocytes Not Reportable 06/15/21 03:56 Helmet Cells Not Reportable 06/15/21 03:56 Graves-Ronan Bodies Not Reportable 06/15/21 03:56 [place] Rings Not Reportable 06/15/21 03:56 Flora Cells Not Reportable 06/15/21 03:56 Bite Cells Not Reportable 06/15/21 03:56 Crenated Cell Not Reportable 06/15/21 03:56 Elliptocytes Not Reportable 06/15/21 03:56 Acanthocytes (Spur) Not Reportable 06/15/21 03:56 Rouleaux Not Reportable 06/15/21 03:56 Hemoglobin C Crystals Not Reportable 06/15/21 03:56 Schistocytes Rare 06/15/21 03:56 Malaria parasites Not Reportable 06/15/21 03:56 Koffi Bodies Not Reportable 06/15/21 03:56 Hem Pathologist Commnt No 06/15/21 03:56 PT 15.4 Sec. (12.2-14.9) H 06/15/21 03:56 INR 1.09 (0.87-1.13) 06/15/21 03:56 APTT 52.6 Sec. (24.2-36.6) H 05/31/21 06:40 Heparin Anti-Xa Level 0.40 U.I./ml (0.3-0.7) 06/15/21 02:04 ABG pH 7.401 pH Units (7.350-7.450) 06/15/21 10:28 ABG pCO2 46.2 mm Hg 06/15/21 10:28 ABG pO2 41.6 mm Hg (80.0-90.0) L 06/15/21 10:28 ABG HCO3 28.1 mmol/L (20.0-26.0) H 06/15/21 10:28 ABG O2 Saturation 69.2 % (95.0-99.0) L 06/15/21 10:28 ABG O2 Content 8.1 (0.0-44) 06/15/21 10:28 ABG Base Excess 2.9 mmol/L (-2.0-3.0) 06/15/21 10:28 ABG Hemoglobin 8.5 gm/dl (12.0-16.0) L 06/15/21 10:28 ABG Carboxyhemoglobin 1.7 % (0.0-5.0) 06/15/21 10:28 ABG Methemoglobin 0.7 % (0.0-1.5) 06/15/21 10:28 Oxyhemoglobin 67.6 % (95.0-99.0) L 06/15/21 10:28 FiO2 21 % 06/15/21 10:28 Sodium 140 mmol/L (137-145) 06/15/21 02:04 Potassium 4.5 mmol/L (3.6-5.0) 06/15/21 02:04 Chloride 104.8 mmol/L (98-107) 06/15/21 02:04 Carbon Dioxide 27 mmol/L (22-30) 06/15/21 02:04 Anion Gap 13 mmol/L 06/15/21 02:04 BUN 13 mg/dL (7-17) 06/15/21 02:04 Creatinine 1.1 mg/dL (0.6-1.2) 06/15/21 02:04 Estimated GFR > 60 ml/min 06/15/21 02:04 BUN/Creatinine Ratio 12 % 06/15/21 02:04 Glucose 87 mg/dL (65-100) 06/15/21 02:04 Lactic Acid 0.70 mmol/L (0.7-2.0) 06/05/21 10:40 Calcium 8.6 mg/dL (8.4-10.2) 06/15/21 02:04 Total Bilirubin < 0.20 mg/dL (0.1-1.2) 06/14/21 Unknown AST 8 units/L (5-40) 06/14/21 Unknown ALT < 5 units/L (7-56) L 06/14/21 Unknown Alkaline Phosphatase 73 units/L (35-129) 06/14/21 Unknown Troponin T < 0.010 ng/mL (0.00-0.029) 05/30/21 04:46 Total Protein 5.9 g/dL (6.3-8.2) L 06/14/21 Unknown Albumin 3.5 g/dL (3.9-5) L 06/14/21 Unknown Albumin/Globulin Ratio 1.5 % 06/14/21 Unknown Lipase 31 units/L (13-60) 05/30/21 04:41 TSH 0.034 mlU/mL (0.270-4.200) L 06/05/21 10:40 Free T4 1.29 ng/dL (0.76-1.46) 06/05/21 10:40 HCG, Qual Negative (Negative) 05/29/21 23:24 Urine Color Yellow (Yellow) 06/05/21 12:20 Urine Turbidity Slightly-cloudy (Clear) 06/05/21 12:20 Urine pH 6.0 (5.0-7.0) 06/05/21 12:20 Ur Specific Gore 1.004 (1.003-1.030) 06/05/21 12:20 Urine Protein <15 mg/dl mg/dL (Negative) 06/05/21 12:20 Urine Glucose (UA) Neg mg/dL (Negative) 06/05/21 12:20 Urine Ketones Neg mg/dL (Negative) 06/05/21 12:20 Urine Blood Mod (Negative) 06/05/21 12:20 Urine Nitrite Neg (Negative) 06/05/21 12:20 Urine Bilirubin Neg (Negative) 06/05/21 12:20 Urine Urobilinogen < 2.0 mg/dL (<2.0) 06/05/21 12:20 Ur Leukocyte Esterase Neg (Negative) 06/05/21 12:20 Urine WBC (Auto) 2.0 /HPF (0.0-6.0) 06/05/21 12:20 Urine RBC (Auto) 37.0 /HPF (0.0-6.0) 06/05/21 12:20 U Epithel Cells (Auto) 3.0 /HPF (0-13.0) 06/05/21 12:20 Urine Bacteria (Auto) 4+ /HPF (Negative) 06/05/21 12:20 Urine Mucus Few /HPF 06/05/21 12:20 Vancomycin Trough 25.1 ug/mL (5.0-20.0) H 06/08/21 04:52 LAURA Screen Negative (Negative) 06/05/21 15:10 Coronavirus (PCR) Negative (Negative) 06/05/21 07:26 Influenza A (Rapid) Negative (Negative) 06/05/21 14:06 Influenza A (RT-PCR) Negative (Negative) 06/05/21 14:06 Influenza B (Rapid) Negative (Negative) 06/05/21 14:06 Influenza B (RT-PCR) Negative (Negative) 06/05/21 14:06 Blood Type B POSITIVE 06/10/21 08:33 Antibody Screen Negative 06/10/21 08:33 Crossmatch See Detail 06/10/21 08:33 Rojas/IV: Voiding Method Bedside Commode Active Medications - Current Medications Current Medications: Generic Name Dose Route Start Last Admin Trade Name Freq PRN Reason Stop Dose Admin Albuterol 2.5 mg 05/30/21 05:14 Albuterol 2.5 Mg/3 Ml Nebu IH Q3HRT PRN Shortness Of Breath Alprazolam 0.5 mg 06/09/21 08:00 06/15/21 10:38 Alprazolam 0.5 Mg Tab PO 0.5 mg BID ELLIOTT Administration Amlodipine Besylate 10 mg 06/12/21 10:00 06/15/21 10:38 Amlodipine 10 Mg Tab PO 10 mg QDAY ELLIOTT Administration Aspirin 81 mg 05/30/21 10:00 06/15/21 10:38 Aspirin Ec 81 Mg Tab PO 81 mg QDAY ELLIOTT Administration Famotidine 20 mg 05/30/21 10:00 06/15/21 10:38 Famotidine 20 Mg Tab PO 20 mg BID ELLIOTT Administration Gabapentin 100 mg 06/10/21 22:00 06/15/21 06:05 Gabapentin 100 Mg Cap PO 100 mg Q8HR ELLIOTT Administration Heparin Sodium (Porcine) 4,500 unit 06/03/21 09:46 Heparin 10,000 Units/10 Ml Vial 40 unit/kg (4500 unit) IV Q6H PRN Anti-Xa Assay < 0.1 units/ml Heparin Sodium/Sodium Chloride 25,000 unit in 500 mls @ 30 mls/hr 06/03/21 10:00 06/15/21 03:17 Heparin/ 0.45% Nacl-25,000 Unit/500 Ml IV 2,000 units/hr TITR ELLIOTT 40 mls/hr Titration Protocol 1,500 UNITS/HR Cefazolin Sodium 2 gm/ Sodium 100 mls @ 200 mls/hr 06/08/21 12:00 06/15/21 06:06 Chloride IV 07/19/21 18:29 200 mls/hr Q6HR ELLIOTT Administration Protocol Levetiracetam 500 mg 05/30/21 10:00 06/15/21 10:38 Levetiracetam 500 Mg Tab PO 500 mg BID ELLIOTT Administration Levothyroxine Sodium 150 mcg 06/06/21 06:00 06/15/21 06:05 Levothyroxine 150 Mcg Tab PO 150 mcg DAILY@0600 ELLIOTT Administration Morphine Sulfate 2 mg 06/03/21 09:30 06/15/21 06:05 Morphine 2 Mg/1 Ml Inj IV 2 mg Q8H PRN Administration Pain, Moderate (4-6) Ondansetron HCl 4 mg 06/05/21 08:00 06/14/21 06:47 Ondansetron 4 Mg/2 Ml Inj IV 4 mg Q4H PRN Administration Nausea And Vomiting Propranolol HCl 40 mg 05/30/21 10:00 06/15/21 10:38 Propranolol 40 Mg Tab PO 40 mg BID ELLIOTT Administration Quetiapine Fumarate 100 mg 05/30/21 10:00 06/15/21 10:39 Quetiapine 100 Mg Tab PO 100 mg QAM ELLIOTT Administration Sodium Chloride 10 ml 05/30/21 10:00 06/15/21 10:39 Sodium Chloride 0.9% 10 Ml Flush Syringe IV 10 ml BID ELLIOTT Administration Sodium Chloride 10 ml 05/30/21 05:14 Sodium Chloride 0.9% 10 Ml Flush Syringe IV PRN PRN LINE FLUSH Tramadol HCl 100 mg 06/09/21 08:00 06/15/21 10:39 Tramadol 50 Mg Tab PO 100 mg BID ELLIOTT Administration Warfarin Sodium 20 mg 06/15/21 17:00 Warfarin 10 Mg Tab PO 06/16/21 16:59 DAILY@1700 [facility] Nutrition/Malnutrition Assess - Dietary Evaluation Nutrition/Malnutrition Findings: Nutrition Notes Start: 05/31/21 12:39 Freq: Status: Active Protocol: Document 06/14/21 07:31 KING (Rec: 06/14/21 07:42 [facility] [id number]) Nutrition Notes Initial or Follow up Reassessment Current Diagnosis Sepsis,Hypertension Other Pertinent Diagnosis Pulmonary embolism, Chest pain , Seizure D/O, Anxiety, Hypothyroidism Current Diet Renal Labs/Tests No current available Pertinent Medications Reviewed Height 5 ft 7 in Weight 111 kg [place] Body Weight (kg) 61.36 BMI 38.3 Weight Status Obese Subjective/Other Information Pt has consumed 50% of meals since last assessment. Not sure why pt prescribed renal diet on 06/11; no mention of renal dysfunction in MD notes. Cr lab increased to 1.4 on but is trending downward. Percent of energy/protein needs met: 58% energy 56% pro Burn Absent Trauma Absent Current % PO Fair (50-74%) #1 Nutrition Diagnosis Inadequate protein-energy intake Etiology medical dx, anxiety As Evidenced by Signs and Symptoms PO intake meeting <75% estimated energy and pro needs Is patient on ventilator? No Is Patient Ambulatory and/or Out of Bed Yes REE-([place]. Jeor-ambulatory/OOB) [ 2356.419 [id number]] Kcal/Kg value to use for calculation 16 Approximate Energy Requirements Using 1776 kcal/Kg Calculation Used for Recommendations Kcal/kg Additional Notes Pro needs 0.8-1g/kg adjBW: 69- 86g/day Fluid needs 1ml/kcal Nutrition Intervention Change Diet Order: Continue current diet order Add Supplement/Snack (indicate name/kcal Ensure High Protein once daily /protein ) Provides kCal: 160 Provides Protein (gm) 16 Goal #1 PO intake of meals plus ONS to meet at least 75% energy and pro needs Follow-Up By: 06/21/21 Additional Comments F/U: intakes (meals/ONS), renal function and need for renal diet, wt
--- NOTE | 2021-06-15 12:03 | Progress Note ---
Assessment and Plan Sepsis MSSA Bacteremia Acute pulmonary embolism Acute chest pain History of DVT on warfarin Seizure disorder Anxiety Hypothyroidism microcytic anemia Morbid obesity Hypotension (Resolved) - continue Warfarin; target INR 2.0 to 3.0 - continue care as below otherwise; - continue to trend H&H prn - PRBC transfusions for serum Hb < 7.0 g/dl - continue full anticoagulation with IV Heparin - follow H&H closely - continue vancomycin; de-escalate per ID recommendations - continue Keppra as AED - continue thyroid replacement therapy - s/p Ancef re: MSSA - follow clinically re: fever curves / trend WBC - supplemental oxygen to keep O2 sats > 90% - bronchodilators (ALVERTO) with pulm hygiene per RT - continue to avoid nephrotoxins, renally dose all medications - continue mobility protocols to prevent pressure ulcers - PT/OT as tolerated - Wound care per RN/WCT - continue accuchecks with glycemic control per SSI for target blood glucose < 180 mg/dL - tobacco abstinence strongly counseled at the bedside - home oxygen evaluation at discharge - prn analgesia per pain score - GI prophylaxis with Pepcid - Flu & pneumovax per protocol - Pulmonary out patient follow up for PFTs and optimization of respiratory status - life style modifications counseled re: weight loss, better medication compliance - continue other care per attending / other consultants ... re-evaluate in am & prn Subjective Date of service: 06/15/21 Principal diagnosis: Sepsis; Acute P.E.; Chest pain; H/O DVT; Seizures; Hypothyroidism; Obesity Interval history: Patient is seen today for: Sepsis; Acute pulmonary embolism; Acute chest pain; H/O DVT; Seizure disorder; Hypothyroidism; Anemia; Morbid obesity; Hypotension (Resolved); MSSA Bacteremia Seen and examined at bedside; 24hour events reviewed; nursing and respiratory care staff consulted; no adverse overnight events reported to me; resting peacefully in bed; no new issues today; denies bleeding Objective Vital Signs - 12hr 06/15/21 04:22 Temperature 98.2 F Pulse Rate 57 L Respiratory 18 Rate Blood Pressure 144/69 O2 Sat by Pulse 95 Oximetry Constitutional: no acute distress, asleep, other (elderly morbidly obese female without increased respiratory effort at rest) Eyes: non-icteric ENT: oropharynx moist Neck: supple, no lymphadenopathy, no JVD, other (large neck circumference; RIJ CVL) Effort: mildly labored Ascultation: Bilateral: clear, diminished breath sounds Percussion: Bilateral: not dull Cardiovascular: regular rate and rhythm Gastrointestinal: normoactive bowel sounds, soft, non-tender, other (distended but soft) Integumentary: normal Extremities: no cyanosis, no edema, pulses normal, no ischemia or petechiae Neurologic: non-focal exam (grossly), pupils equal and round, CN II-XII normal, motor strength normal and Psychiatric: other (Sleeping at this time.) CBC and BMP: 06/16/21 03:15 06/15/21 02:04 ABG, PT/INR, D-dimer: ABG ABG pH 7.401 pH Units (7.350-7.450) 06/15/21 10:28 ABG pCO2 46.2 mm Hg 06/15/21 10:28 ABG pO2 41.6 mm Hg (80.0-90.0) L 06/15/21 10:28 ABG O2 Saturation 69.2 % (95.0-99.0) L 06/15/21 10:28 PT/INR, D-dimer PT 15.4 Sec. (12.2-14.9) H 06/15/21 03:56 INR 1.09 (0.87-1.13) 06/15/21 03:56 Abnormal lab findings: Abnormal Labs 05/29/21 05/29/21 05/29/21 23:24 23:24 23:29 WBC RBC Hgb 8.8 L Hct 28.7 L MCV 74 L MCH 23 L RDW 26.4 H Seg Neuts % (Manual) 75.0 H Lymphocytes % (Manual) Eosinophils % (Manual) Seg Neutrophils # Man Lymphocytes # (Manual) Eosinophils # (Manual) PT INR APTT 20.9 L Heparin Anti-Xa Level ABG pO2 ABG HCO3 ABG O2 Saturation ABG Hemoglobin Oxyhemoglobin Sodium Chloride Carbon Dioxide 20 L Creatinine Glucose Calcium ALT Total Protein Albumin 3.5 L TSH Vancomycin Trough Crossmatch 05/30/21 05/30/21 05/30/21 08:25 08:25 13:35 WBC RBC Hgb 8.8 L Hct 27.5 L MCV MCH RDW Seg Neuts % (Manual) Lymphocytes % (Manual) Eosinophils % (Manual) Seg Neutrophils # Man Lymphocytes # (Manual) Eosinophils # (Manual) PT 15.4 H INR APTT 107.1 H* Heparin Anti-Xa Level 0.82 H ABG pO2 ABG HCO3 ABG O2 Saturation ABG Hemoglobin Oxyhemoglobin Sodium Chloride Carbon Dioxide Creatinine Glucose Calcium ALT Total Protein Albumin TSH Vancomycin Trough Crossmatch 05/30/21 05/31/21 05/31/21 20:57 06:40 06:40 WBC 13.0 H RBC Hgb 8.9 L Hct 28.5 L MCV 74 L MCH 23 L RDW 25.7 H Seg Neuts % (Manual) 77.0 H Lymphocytes % (Manual) Eosinophils % (Manual) Seg Neutrophils # Man 10.0 H Lymphocytes # (Manual) Eosinophils # (Manual) PT INR APTT 52.6 H Heparin Anti-Xa Level 0.15 L 0.74 H ABG pO2 ABG HCO3 ABG O2 Saturation ABG Hemoglobin Oxyhemoglobin Sodium Chloride Carbon Dioxide Creatinine Glucose Calcium ALT Total Protein Albumin TSH Vancomycin Trough Crossmatch 06/01/21 06/01/21 06/02/21 09:55 10:27 06:15 WBC RBC Hgb 9.4 L Hct MCV MCH RDW Seg Neuts % (Manual) Lymphocytes % (Manual) Eosinophils % (Manual) Seg Neutrophils # Man Lymphocytes # (Manual) Eosinophils # (Manual) PT INR APTT Heparin Anti-Xa Level 0.13 L 0.25 L ABG pO2 ABG HCO3 ABG O2 Saturation ABG Hemoglobin Oxyhemoglobin Sodium Chloride Carbon Dioxide Creatinine Glucose Calcium ALT Total Protein Albumin TSH Vancomycin Trough Crossmatch 06/02/21 06/03/21 06/04/21 23:30 Unknown 07:39 WBC RBC Hgb 8.5 L Hct 28.0 L MCV MCH RDW Seg Neuts % (Manual) Lymphocytes % (Manual) Eosinophils % (Manual) Seg Neutrophils # Man Lymphocytes # (Manual) Eosinophils # (Manual) PT 15.0 H INR APTT Heparin Anti-Xa Level 0.19 L ABG pO2 ABG HCO3 ABG O2 Saturation ABG Hemoglobin Oxyhemoglobin Sodium Chloride Carbon Dioxide Creatinine Glucose Calcium ALT Total Protein Albumin TSH Vancomycin Trough Crossmatch 06/05/21 06/05/21 06/05/21 04:07 04:07 10:40 WBC RBC Hgb 8.4 L Hct 27.3 L MCV MCH RDW Seg Neuts % (Manual) Lymphocytes % (Manual) Eosinophils % (Manual) Seg Neutrophils # Man Lymphocytes # (Manual) Eosinophils # (Manual) PT 17.7 H INR 1.30 H APTT Heparin Anti-Xa Level ABG pO2 ABG HCO3 ABG O2 Saturation ABG Hemoglobin Oxyhemoglobin Sodium Chloride Carbon Dioxide Creatinine Glucose Calcium ALT Total Protein Albumin TSH 0.034 L Vancomycin Trough Crossmatch 06/05/21 06/05/21 06/06/21 10:40 11:01 04:00 WBC 14.0 H RBC 3.37 L Hgb 7.5 L Hct 24.8 L MCV 74 L MCH 22 L RDW 25.0 H Seg Neuts % (Manual) 94.0 H Lymphocytes % (Manual) 3.0 L Eosinophils % (Manual) Seg Neutrophils # Man 13.2 H Lymphocytes # (Manual) 0.4 L Eosinophils # (Manual) PT 17.4 H INR 1.27 H APTT Heparin Anti-Xa Level ABG pO2 ABG HCO3 ABG O2 Saturation ABG Hemoglobin Oxyhemoglobin Sodium 135 L Chloride Carbon Dioxide 20 L Creatinine Glucose Calcium 7.8 L ALT Total Protein Albumin TSH Vancomycin Trough Crossmatch 06/07/21 06/07/21 06/08/21 12:55 12:55 04:52 WBC RBC Hgb 7.1 L Hct 23.6 L MCV MCH RDW Seg Neuts % (Manual) Lymphocytes % (Manual) Eosinophils % (Manual) Seg Neutrophils # Man Lymphocytes # (Manual) Eosinophils # (Manual) PT 19.7 H INR 1.48 H APTT Heparin Anti-Xa Level ABG pO2 ABG HCO3 ABG O2 Saturation ABG Hemoglobin Oxyhemoglobin Sodium Chloride 116.6 H Carbon Dioxide 18 L Creatinine Glucose Calcium 7.4 L ALT Total Protein 4.7 L Albumin 2.7 L TSH Vancomycin Trough Crossmatch 06/08/21 06/09/21 06/09/21 04:52 06:46 06:46 WBC RBC 3.09 L Hgb 6.9 L Hct 22.4 L MCV 72 L MCH 22 L RDW 25.0 H Seg Neuts % (Manual) Lymphocytes % (Manual) Eosinophils % (Manual) Seg Neutrophils # Man Lymphocytes # (Manual) Eosinophils # (Manual) PT INR APTT Heparin Anti-Xa Level < 0.10 L ABG pO2 ABG HCO3 ABG O2 Saturation ABG Hemoglobin Oxyhemoglobin Sodium Chloride Carbon Dioxide Creatinine Glucose Calcium ALT Total Protein Albumin TSH Vancomycin Trough 25.1 H Crossmatch 06/09/21 06/10/21 06/10/21 Unknown 08:31 08:31 WBC RBC 3.17 L Hgb 7.1 L Hct 22.9 L MCV 72 L MCH 22 L RDW 25.5 H Seg Neuts % (Manual) 71.0 H Lymphocytes % (Manual) Eosinophils % (Manual) Seg Neutrophils # Man Lymphocytes # (Manual) 1.0 L Eosinophils # (Manual) PT 20.4 H 17.6 H INR 1.54 H 1.29 H APTT Heparin Anti-Xa Level ABG pO2 ABG HCO3 ABG O2 Saturation ABG Hemoglobin Oxyhemoglobin Sodium Chloride Carbon Dioxide Creatinine Glucose Calcium ALT Total Protein Albumin TSH Vancomycin Trough Crossmatch 06/10/21 06/10/21 06/11/21 08:31 08:33 08:25 WBC RBC Hgb Hct MCV MCH RDW Seg Neuts % (Manual) Lymphocytes % (Manual) Eosinophils % (Manual) Seg Neutrophils # Man Lymphocytes # (Manual) Eosinophils # (Manual) PT 16.3 H INR 1.17 H APTT Heparin Anti-Xa Level ABG pO2 ABG HCO3 ABG O2 Saturation ABG Hemoglobin Oxyhemoglobin Sodium Chloride 111.3 H Carbon Dioxide 21 L Creatinine 1.4 H Glucose Calcium ALT Total Protein 5.7 L D Albumin 3.2 L TSH Vancomycin Trough Crossmatch See Detail 06/12/21 06/12/21 06/14/21 05:45 05:45 Unknown WBC RBC Hgb Hct MCV MCH RDW Seg Neuts % (Manual) Lymphocytes % (Manual) Eosinophils % (Manual) Seg Neutrophils # Man Lymphocytes # (Manual) Eosinophils # (Manual) PT 16.1 H INR 1.16 H APTT Heparin Anti-Xa Level 0.26 L ABG pO2 ABG HCO3 ABG O2 Saturation ABG Hemoglobin Oxyhemoglobin Sodium Chloride Carbon Dioxide Creatinine 1.3 H Glucose Calcium ALT Total Protein Albumin TSH Vancomycin Trough Crossmatch 06/14/21 06/14/21 06/15/21 Unknown Unknown 03:56 WBC RBC 3.50 L Hgb 8.2 L Hct 26.3 L MCV 75 L MCH 24 L RDW 27.6 H Seg Neuts % (Manual) Lymphocytes % (Manual) Eosinophils % (Manual) Seg Neutrophils # Man Lymphocytes # (Manual) Eosinophils # (Manual) PT 15.4 H INR APTT Heparin Anti-Xa Level ABG pO2 ABG HCO3 ABG O2 Saturation ABG Hemoglobin Oxyhemoglobin Sodium Chloride Carbon Dioxide Creatinine Glucose 107 H Calcium ALT < 5 L Total Protein 5.9 L Albumin 3.5 L TSH Vancomycin Trough Crossmatch 06/15/21 06/15/21 03:56 10:28 WBC RBC 3.47 L Hgb 8.3 L Hct 25.8 L MCV 74 L MCH 24 L RDW 27.3 H Seg Neuts % (Manual) 72.0 H Lymphocytes % (Manual) Eosinophils % (Manual) 6.0 H Seg Neutrophils # Man Lymphocytes # (Manual) Eosinophils # (Manual) 0.5 H PT INR APTT Heparin Anti-Xa Level ABG pO2 41.6 L ABG HCO3 28.1 H ABG O2 Saturation 69.2 L ABG Hemoglobin 8.5 L Oxyhemoglobin 67.6 L Sodium Chloride Carbon Dioxide Creatinine Glucose Calcium ALT Total Protein Albumin TSH Vancomycin Trough Crossmatch Allied health notes reviewed: nursing
[2021-06-15] MEDS ORDERED: WARFARIN 10 MG TAB PO SCH (17:00)
[2021-06-16] MEDS: MORPHINE 2 MG/1 ML INJ IV PRN ×3 (00:15→23:59)
[2021-06-16 04:57] LABS: Hematocrit 28.5 % (30.3-42.9); Hemoglobin 8.7 gm/dl (10.1-14.3); Mean Corpuscular HGB Conc 30 % (30-34); Mean Corpuscular Volume 75 fl (79-97); Platelet Count 438 K/mm3 (140-440); Red Blood Count 3.79 M/mm3 (3.65-5.03)
[2021-06-16 05:04] LABS: Red Cell Distribution Width 27.3 % (13.2-15.2)
[2021-06-16 05:07] LABS: INR 1.21 (0.87-1.13)
[2021-06-16] MEDS: LEVOTHYROXINE 150 MCG TAB PO SCH (05:22)
[2021-06-16] MEDS: GABAPENTIN 100 MG CAP PO SCH ×3 (05:22→21:08)
[2021-06-16 06:10] LABS: Anisocytosis 3+; Basophils % (Manual) 0 % (0.0-1.8); Total Cells Counted 100
[2021-06-16 06:11] LABS: Hypochromasia 2+; Platelet Estimate Consistent w Auto
--- NOTE | 2021-06-16 10:03 | Progress Note ---
Assessment and Plan Assessment and plan: 40 years old female with past medical history of hypertension, PE x2, (R lung 05/2016, L lung 01/2017--on coumadin), R leg DVT 03/2017, Graves Disease, heart murmur, aortic dissection, PERICARDITIS, thyroid storm, and GERD admitted for acute bilateral pulmonary thromboemboli with evidence of mild right ventricular strain on heparin gtt and warfarin. Assessment and Plan: Sepsis, MSSA bacteremia -Etiology unclear, line infection vs endocarditis, infected TEVAR graft. -06/04 bcx: 3/ bottles MSSA - 06/07 bcx: NGTD - urine culture: NGTD -TTE negative for valvular vegetations -HANK negative for endocarditis - ID following -Continue Ancef -DAVID PICC line noted, remove RIJ CVC Hypotension (resolved) -Patient with low blood pressure at night -IVF started -avoid antihypotensives -labetalol currently held Acute pulmonary embolism History of DVT on warfarin Troponin unremarkable, chest x-ray unremarkable, bilateral lower extremity venous Dopplers unremarkable for acute DVT CT angio chest revealing acute bilateral pulmonary emboli with evidence of right heart strain Home medication of warfarin 7.5 mg daily; however, INR 1.03. Patient endorses being compliant with her anticoagulation. Continue heparin drip and bridged warfarin daily until therapeutic (goal 2.53.5). TTE without evidence of right heart strain Patient needs to be taking BOTH warfarin and heparin until INR goal of 2.5 achieved. - Remains subtherapeutic despite Heparin and Warfarin - Hematology consulted for possible warfarin resistance history of mechanical heart valve - goal inr 2.5. Seizure disorder Anxiety Continue home medications: Keppra 500 mg twice daily, Quetiapine 100 mg every morning and 300 mg nightly, alprazolam 0.5 mg 3 times daily History of aortic dissection s/p tevar. Hypothyroidism -resume home levothyroxine microcytic anemia -stable Transfuse if hemoglobin less than 7 or patient become symptomatic Morbid obesity Weight loss counseling Exercise counseling - BMI 39.1 - Counseled patient on the importance of weight loss, incorporating exercise, and dietary changes (lean meats, fresh fruits and vegetables, and water intake). Patient expresses understanding. Hospital Course: 06/05: Is unclear to me why the patient was transferred to the [facility] as I do not have any clear documentation to the results but in effect I was told by the nurse that the patient had pulled out his for her femoral line and did not have an access. Patient appears to have been having fever for a few days no known etiology we will proceed with a sepsis work-up although closely reviewing her case shows a history of thyroid storm in the past and she has not been receiving her thyroid medication while she does not have confusion at this time she does have tachycardia and tachypnea. We will give her a dose of IV levothyroxine today and start her daily dose of levothyroxine a.m. She has been on her propranolol although her home dose appears confusing as she gets 40 mg once daily and also 20 mg twice a day will discuss with her to clarify this and also with her pharmacy. She did have a right IJ triple-lumen catheter placed yesterday I discussed with her in the setting of well-documented by the nurse that she takes Midol at home which contains acetaminophen she is agreeable to trial acetaminophen as she wants to come off the cooling blanket. I also consulted ID and ordered a urinalysis with urine culture and some fluid support. I reviewed her CT scan and echocardiogram while the CT mentions the pulmonary embolism with mild right heart strain the echo shows a RVSP of 32 mmHg. I will proceed with consulting pulmonary in her case she would definitely need a grocery sacker outpatient. She continues on heparin drip while awaiting for therapeutic INR. In the meantime continue with antibiotic Right internal jugular vein triple-lumen catheter placement under ultrasound guidance 06/06: Patient seen and examined, showing some improvement, will follow cultures result, Continue abx, clinical stable, ID input, close eye on Hemoglobin. WBC mildly trended up. will transfer back to [facility]. 06/07: Continue supportive care, awaiting Cultures for ID and sensitivity in the meantime continue antibiotic. Am LABS. Patient continues on heparin drip until INR is therapeutic. I encouraged her to ambulate in her room and also set up on the chair. Cultures for COVID was negative. We will obtain PT OT evaluation. In short summary patient is a 40-year-old female with hypertension pulmonary embolism lower extremity DVT in the past on Coumadin who presented with shortness of breath diagnosed with pulmonary embolism admitted intermittently sepsis doubt septic emboli currently on antibiotics. Restarted on her thyroid medication with no evidence of thyroid storm. 06/08: resting comfortably on encounter. Afebrile today. Vital signs improved. 94% on 3L/min NC. Pain medication appears to be excessive as patient is heavily sedated, will scale back pain medication. D/w cardiology Dr Canseco regarding concern for endocarditis and possible infected TEVAR graft as potential source of infection. Consult placed for HANK. Will continue to follow culture data. Continue IV vancomycin per ID direction. INR remains subtherapeutic for treatment of DVT/PE but increased to 1.48, will continue warfarin at current do jerald and heparin gtt at this time. 06/09: continue therapy for MSSA bacteremia. Awaiting HANK completion. INR 1.54, warfarin 12.5 mg dose given today. Anemic today 6.9, ordered 1 unit prbc. Patient denies any rectal bleeding, bleeding from lines, hematemesis. Suspect anemia of chronic disease and possibly iatrogenic induced from multiple blood draw/line placement attempts. Lower suspicion for occult hematoma but will order CTAP. 06/10: Abx orders noted by ID. INR remains subtherapetuic, did not receive warfarin dose for some apparent reason. Pharmacy will give 15 mg dose today. Occult bleed r/o on ctap. No rectal bleeding reported. Will transfuse 1 unit prbc. Restart heparin gtt. Will follow up results of HANK from today. 06/11: HANK negative for endocarditis. INR subtherapuetic. unfortunately patient has missed last two day of warfarin dosing and inr reflects this. Patient could also be warfarin resistant. Patient needs to be receiving BOTH warfarin and heparin gtt until INR goal of 2.5 achieved. D/w pharmacy, will continue with 15 mg dosing at this time. Continue Iv abx. Discharge plan is for early next week. 06/12: Hypertensive this AM, added amlodipine for better BP control. INR 1.16. Continue heparin gtt while transitioning to warfarin. Plan for discharge early next week. CM working on OP IV abx arrangement. 06/13: Continue heparin gtt and warfarin. INR remains subtherapeutic. 06/14: Patient remains subtherapeutic despite heparin gtt and Warfarin. Will consult hematology for possible warfarin resistance and for further recs. Continue heparin gtt and warfarin for now. Patient remains on IV Abx, ancef per ID, DAVID PICC line noted remove RIJ CVC. 06/15: Continue heparin drip and warfarin until INR at goal of 2.5. . Patient remains on IV Abx, ancef per ID, DAVID PICC line noted remove RIJ CVC. 06/16: Continue heparin drip and warfarin until INR at goal of 2.5. . Patient remains on IV Abx, ancef per ID, DAVID PICC line noted remove RIJ CVC. Continue Keppra as needed for AEDs. Continue thyroid replacement therapy. History Interval history: No new issues overnight Hospitalist Physical - Constitutional Vitals: Temp Pulse Resp BP Pulse Ox 99.2 F 53 L 18 150/78 95 06/16/21 04:38 06/16/21 04:38 06/16/21 04:38 06/16/21 04:38 06/16/21 04:38 General appearance: Present: no acute distress, well-nourished, obese - EENT Eyes: Present: PERRL, EOM intact ENT: hearing intact, clear oral mucosa, dentition normal - Neck Neck: Present: supple, normal ROM - Respiratory Respiratory effort: normal Respiratory: bilateral: CTA - Cardiovascular Rhythm: regular Heart Sounds: Present: S1 & S2. Absent: gallop, rub - Extremities Extremities: no ischemia, No edema, Full ROM - Abdominal General gastrointestinal: soft, non-tender, non-distended, normal bowel sounds - Integumentary Integumentary: Present: clear, warm, dry - Neurologic Neurologic: CNII-XII intact, moves all extremities HEART Score - HEART Score Troponin: Troponin T < 0.010 ng/mL (0.00-0.029) 05/30/21 04:46 Results - Labs CBC & Chem 7: 06/16/21 03:15 06/15/21 02:04 Labs: Laboratory Last Values WBC 7.2 K/mm3 (4.5-11.0) 06/16/21 03:15 RBC 3.79 M/mm3 (3.65-5.03) 06/16/21 03:15 Hgb 8.7 gm/dl (10.1-14.3) L 06/16/21 03:15 Hct 28.5 % (30.3-42.9) L 06/16/21 03:15 MCV 75 fl (79-97) L 06/16/21 03:15 MCH 23 pg (28-32) L 06/16/21 03:15 MCHC 30 % (30-34) 06/16/21 03:15 RDW 27.3 % (13.2-15.2) H 06/16/21 03:15 Plt Count 438 K/mm3 (140-440) 06/16/21 03:15 Add Manual Diff Complete 06/16/21 03:15 Total Counted 100 06/16/21 03:15 Seg Neuts % (Manual) 72.0 % (40.0-70.0) H 06/16/21 03:15 Band Neutrophils % 0 % 06/16/21 03:15 Lymphocytes % (Manual) 23.0 % (13.4-35.0) 06/16/21 03:15 Reactive Lymphs % (Man) 0 % 06/16/21 03:15 Monocytes % (Manual) 1.0 % (0.0-7.3) 06/16/21 03:15 Eosinophils % (Manual) 4.0 % (0.0-4.3) 06/16/21 03:15 Basophils % (Manual) 0 % (0.0-1.8) 06/16/21 03:15 Metamyelocytes % 0 % 06/16/21 03:15 Myelocytes % 0 % 06/16/21 03:15 Promyelocytes % 0 % 06/16/21 03:15 Blast Cells % 0 % 06/16/21 03:15 Nucleated RBC % Not Reportable 06/16/21 03:15 Seg Neutrophils # Man 5.2 K/mm3 (1.8-7.7) 06/16/21 03:15 Band Neutrophils # 0.0 K/mm3 06/16/21 03:15 Lymphocytes # (Manual) 1.7 K/mm3 (1.2-5.4) 06/16/21 03:15 Abs React Lymphs (Man) 0.0 K/mm3 06/16/21 03:15 Monocytes # (Manual) 0.1 K/mm3 (0.0-0.8) 06/16/21 03:15 Eosinophils # (Manual) 0.3 K/mm3 (0.0-0.4) 06/16/21 03:15 Basophils # (Manual) 0.0 K/mm3 (0.0-0.1) 06/16/21 03:15 Metamyelocytes # 0.0 K/mm3 06/16/21 03:15 Myelocytes # 0.0 K/mm3 06/16/21 03:15 Promyelocytes # 0.0 K/mm3 06/16/21 03:15 Blast Cells # 0.0 K/mm3 06/16/21 03:15 WBC Morphology Not Reportable 06/16/21 03:15 Hypersegmented Neuts Not Reportable 06/16/21 03:15 Hyposegmented Neuts Not Reportable 06/16/21 03:15 Hypogranular Neuts Not Reportable 06/16/21 03:15 Smudge Cells Not Reportable 06/16/21 03:15 Toxic Granulation Not Reportable 06/16/21 03:15 Toxic Vacuolation Not Reportable 06/16/21 03:15 Dohle Bodies Not Reportable 06/16/21 03:15 Pelger-Huet Anomaly Not Reportable 06/16/21 03:15 Jaime Rods Not Reportable 06/16/21 03:15 Platelet Estimate Consistent w auto 06/16/21 03:15 Clumped Platelets Not Reportable 06/16/21 03:15 Plt Clumps, EDTA Not Reportable 06/16/21 03:15 Large Platelets Not Reportable 06/16/21 03:15 Giant Platelets Not Reportable 06/16/21 03:15 Platelet Satelliting Not Reportable 06/16/21 03:15 Plt Morphology Comment Not Reportable 06/16/21 03:15 RBC Morphology Not Reportable 06/16/21 03:15 Dimorphic RBCs Not Reportable 06/16/21 03:15 Polychromasia Not Reportable 06/16/21 03:15 Hypochromasia 2+ 06/16/21 03:15 Poikilocytosis Not Reportable 06/16/21 03:15 Anisocytosis 3+ 06/16/21 03:15 Microcytosis Not Reportable 06/16/21 03:15 Macrocytosis Not Reportable 06/16/21 03:15 Spherocytes Not Reportable 06/16/21 03:15 Pappenheimer Bodies Not Reportable 06/16/21 03:15 Sickle Cells Not Reportable 06/16/21 03:15 Target Cells Not Reportable 06/16/21 03:15 Tear Drop Cells Not Reportable 06/16/21 03:15 Ovalocytes Not Reportable 06/16/21 03:15 Helmet Cells Not Reportable 06/16/21 03:15 [place] Bodies Not Reportable 06/16/21 03:15 [place] Rings Not Reportable 06/16/21 03:15 Sunburst Cells Not Reportable 06/16/21 03:15 Bite Cells Not Reportable 06/16/21 03:15 Crenated Cell Not Reportable 06/16/21 03:15 Elliptocytes Not Reportable 06/16/21 03:15 Acanthocytes (Spur) Not Reportable 06/16/21 03:15 Rouleaux Not Reportable 06/16/21 03:15 Hemoglobin C Crystals Not Reportable 06/16/21 03:15 Schistocytes Not Reportable 06/16/21 03:15 Malaria parasites Not Reportable 06/16/21 03:15 [place] Bodies Not Reportable 06/16/21 03:15 Hem Pathologist Commnt No 06/16/21 03:15 PT 16.7 Sec. (12.2-14.9) H 06/16/21 03:15 INR 1.21 (0.87-1.13) H 06/16/21 03:15 APTT 52.6 Sec. (24.2-36.6) H 05/31/21 06:40 Fibrinogen 420 mg/dl (211-480) 06/16/21 03:15 Heparin Anti-Xa Level 0.17 U.I./ml (0.3-0.7) L 06/16/21 03:15 ABG pH 7.401 pH Units (7.350-7.450) 06/15/21 10:28 ABG pCO2 46.2 mm Hg 06/15/21 10:28 ABG pO2 41.6 mm Hg (80.0-90.0) L 06/15/21 10:28 ABG HCO3 28.1 mmol/L (20.0-26.0) H 06/15/21 10:28 ABG O2 Saturation 69.2 % (95.0-99.0) L 06/15/21 10:28 ABG O2 Content 8.1 (0.0-44) 06/15/21 10:28 ABG Base Excess 2.9 mmol/L (-2.0-3.0) 06/15/21 10:28 ABG Hemoglobin 8.5 gm/dl (12.0-16.0) L 06/15/21 10:28 ABG Carboxyhemoglobin 1.7 % (0.0-5.0) 06/15/21 10:28 ABG Methemoglobin 0.7 % (0.0-1.5) 06/15/21 10:28 Oxyhemoglobin 67.6 % (95.0-99.0) L 06/15/21 10:28 FiO2 21 % 06/15/21 10:28 Sodium 140 mmol/L (137-145) 06/15/21 02:04 Potassium 4.5 mmol/L (3.6-5.0) 06/15/21 02:04 Chloride 104.8 mmol/L (98-107) 06/15/21 02:04 Carbon Dioxide 27 mmol/L (22-30) 06/15/21 02:04 Anion Gap 13 mmol/L 06/15/21 02:04 BUN 13 mg/dL (7-17) 06/15/21 02:04 Creatinine 1.1 mg/dL (0.6-1.2) 06/15/21 02:04 Estimated GFR > 60 ml/min 06/15/21 02:04 BUN/Creatinine Ratio 12 % 06/15/21 02:04 Glucose 87 mg/dL (65-100) 06/15/21 02:04 Lactic Acid 0.70 mmol/L (0.7-2.0) 06/05/21 10:40 Calcium 8.6 mg/dL (8.4-10.2) 06/15/21 02:04 Total Bilirubin < 0.20 mg/dL (0.1-1.2) 06/14/21 Unknown AST 8 units/L (5-40) 06/14/21 Unknown ALT < 5 units/L (7-56) L 06/14/21 Unknown Alkaline Phosphatase 73 units/L (35-129) 06/14/21 Unknown Troponin T < 0.010 ng/mL (0.00-0.029) 05/30/21 04:46 Total Protein 5.9 g/dL (6.3-8.2) L 06/14/21 Unknown Albumin 3.5 g/dL (3.9-5) L 06/14/21 Unknown Albumin/Globulin Ratio 1.5 % 06/14/21 Unknown Lipase 31 units/L (13-60) 05/30/21 04:41 TSH 0.034 mlU/mL (0.270-4.200) L 06/05/21 10:40 Free T4 1.29 ng/dL (0.76-1.46) 06/05/21 10:40 HCG, Qual Negative (Negative) 05/29/21 23:24 Urine Color Yellow (Yellow) 06/05/21 12:20 Urine Turbidity Slightly-cloudy (Clear) 06/05/21 12:20 Urine pH 6.0 (5.0-7.0) 06/05/21 12:20 Ur Specific [place] 1.004 (1.003-1.030) 06/05/21 12:20 Urine Protein <15 mg/dl mg/dL (Negative) 06/05/21 12:20 Urine Glucose (UA) Neg mg/dL (Negative) 06/05/21 12:20 Urine Ketones Neg mg/dL (Negative) 06/05/21 12:20 Urine Blood Mod (Negative) 06/05/21 12:20 Urine Nitrite Neg (Negative) 06/05/21 12:20 Urine Bilirubin Neg (Negative) 06/05/21 12:20 Urine Urobilinogen < 2.0 mg/dL (<2.0) 06/05/21 12:20 Ur Leukocyte Esterase Neg (Negative) 06/05/21 12:20 Urine WBC (Auto) 2.0 /HPF (0.0-6.0) 06/05/21 12:20 Urine RBC (Auto) 37.0 /HPF (0.0-6.0) 06/05/21 12:20 U Epithel Cells (Auto) 3.0 /HPF (0-13.0) 06/05/21 12:20 Urine Bacteria (Auto) 4+ /HPF (Negative) 06/05/21 12:20 Urine Mucus Few /HPF 06/05/21 12:20 Vancomycin Trough 25.1 ug/mL (5.0-20.0) H 06/08/21 04:52 LAURA Screen Negative (Negative) 06/05/21 15:10 Coronavirus (PCR) Negative (Negative) 06/05/21 07:26 Influenza A (Rapid) Negative (Negative) 06/05/21 14:06 Influenza A (RT-PCR) Negative (Negative) 06/05/21 14:06 Influenza B (Rapid) Negative (Negative) 06/05/21 14:06 Influenza B (RT-PCR) Negative (Negative) 06/05/21 14:06 Blood Type B POSITIVE 06/10/21 08:33 Antibody Screen Negative 06/10/21 08:33 Crossmatch See Detail 06/10/21 08:33 Rojas/IV: Voiding Method Bedside Commode Active Medications - Current Medications Current Medications: Generic Name Dose Route Start Last Admin Trade Name Freq PRN Reason Stop Dose Admin Albuterol 2.5 mg 05/30/21 05:14 Albuterol 2.5 Mg/3 Ml Nebu IH Q3HRT PRN Shortness Of Breath Alprazolam 0.5 mg 06/09/21 08:00 06/15/21 21:35 Alprazolam 0.5 Mg Tab PO 0.5 mg BID ELLIOTT Administration Amlodipine Besylate 10 mg 06/12/21 10:00 06/15/21 10:38 Amlodipine 10 Mg Tab PO 10 mg QDAY ELLIOTT Administration Aspirin 81 mg 05/30/21 10:00 06/15/21 10:38 Aspirin Ec 81 Mg Tab PO 81 mg QDAY ELLIOTT Administration Famotidine 20 mg 05/30/21 10:00 06/15/21 21:35 Famotidine 20 Mg Tab PO 20 mg BID ELLIOTT Administration Gabapentin 100 mg 06/10/21 22:00 06/16/21 05:22 Gabapentin 100 Mg Cap PO 100 mg Q8HR ELLIOTT Administration Heparin Sodium (Porcine) 4,500 unit 06/03/21 09:46 Heparin 10,000 Units/10 Ml Vial 40 unit/kg (4500 unit) IV Q6H PRN Anti-Xa Assay < 0.1 units/ml Heparin Sodium/Sodium Chloride 25,000 unit in 500 mls @ 30 mls/hr 06/03/21 10:00 06/16/21 05:13 Heparin/ 0.45% Nacl-25,000 Unit/500 Ml IV Infused TITR ELLIOTT Titration Protocol 1,500 UNITS/HR Cefazolin Sodium 2 gm/ Sodium 100 mls @ 200 mls/hr 06/08/21 12:00 06/16/21 05:22 Chloride IV 07/19/21 18:29 200 mls/hr Q6HR ELLIOTT Administration Protocol Levetiracetam 500 mg 05/30/21 10:00 06/15/21 21:35 Levetiracetam 500 Mg Tab PO 500 mg BID ELLIOTT Administration Levothyroxine Sodium 150 mcg 06/06/21 06:00 06/16/21 05:22 Levothyroxine 150 Mcg Tab PO 150 mcg DAILY@0600 ELLIOTT Administration Morphine Sulfate 2 mg 06/03/21 09:30 06/16/21 00:15 Morphine 2 Mg/1 Ml Inj IV 2 mg Q8H PRN Administration Pain, Moderate (4-6) Ondansetron HCl 4 mg 06/05/21 08:00 06/14/21 06:47 Ondansetron 4 Mg/2 Ml Inj IV 4 mg Q4H PRN Administration Nausea And Vomiting Propranolol HCl 40 mg 05/30/21 10:00 06/15/21 21:41 Propranolol 40 Mg Tab PO 40 mg BID ELLIOTT Administration Quetiapine Fumarate 100 mg 05/30/21 10:00 06/15/21 10:39 Quetiapine 100 Mg Tab PO 100 mg QAM ELLIOTT Administration Sodium Chloride 10 ml 05/30/21 10:00 06/15/21 21:43 Sodium Chloride 0.9% 10 Ml Flush Syringe IV 10 ml BID ELLIOTT Administration Sodium Chloride 10 ml 05/30/21 05:14 Sodium Chloride 0.9% 10 Ml Flush Syringe IV PRN PRN LINE FLUSH Tramadol HCl 100 mg 06/09/21 08:00 06/15/21 21:35 Tramadol 50 Mg Tab PO 100 mg BID ELLIOTT Administration Warfarin Sodium 20 mg 06/15/21 17:00 06/15/21 19:45 Warfarin 10 Mg Tab PO 06/16/21 16:59 20 mg DAILY@1700 ELLIOTT Administration Nutrition/Malnutrition Assess - Dietary Evaluation Nutrition/Malnutrition Findings: Nutrition Notes Start: 05/31/21 12:39 Freq: Status: Active Protocol: Document 06/14/21 07:31 KING (Rec: 06/14/21 07:42 KING [id number]) Nutrition Notes Initial or Follow up Reassessment Current Diagnosis Sepsis,Hypertension Other Pertinent Diagnosis Pulmonary embolism, Chest pain , Seizure D/O, Anxiety, Hypothyroidism Current Diet Renal Labs/Tests No current available Pertinent Medications Reviewed Height 5 ft 7 in Weight 111 kg [place] Body Weight (kg) 61.36 BMI 38.3 Weight Status Obese Subjective/Other Information Pt has consumed 50% of meals since last assessment. Not sure why pt prescribed renal diet on 06/11; no mention of renal dysfunction in MD notes. Cr lab increased to 1.4 on but is trending downward. Percent of energy/protein needs met: 58% energy 56% pro Burn Absent Trauma Absent Current % PO Fair (50-74%) #1 Nutrition Diagnosis Inadequate protein-energy intake Etiology medical dx, anxiety As Evidenced by Signs and Symptoms PO intake meeting <75% estimated energy and pro needs Is patient on ventilator? No Is Patient Ambulatory and/or Out of Bed Yes REE-([place] or-ambulatory/OOB) [ 2356.419 [id number]] Kcal/Kg value to use for calculation 16 Approximate Energy Requirements Using 1776 kcal/Kg Calculation Used for Recommendations Kcal/kg Additional Notes Pro needs 0.8-1g/kg adjBW: 69- 86g/day Fluid needs 1ml/kcal Nutrition Intervention Change Diet Order: Continue current diet order Add Supplement/Snack (indicate name/kcal Ensure High Protein once daily /protein ) Provides kCal: 160 Provides Protein (gm) 16 Goal #1 PO intake of meals plus ONS to meet at least 75% energy and pro needs Follow-Up By: 06/21/21 Additional Comments F/U: intakes (meals/ONS), renal function and need for renal diet, wt
[2021-06-16] MEDS: levETIRAcetam 500 MG TAB PO SCH ×2 (10:47→21:09)
[2021-06-16] MEDS: PROPRANOLOL 40 MG TAB PO SCH ×2 (10:47→21:08)
[2021-06-16] MEDS: ALPRAZolam 0.5 MG TAB PO SCH ×2 (10:48→21:10)
[2021-06-16] MEDS: amLODIPine 10 MG TAB PO SCH (10:48)
[2021-06-16] MEDS: QUEtiapine 100 MG TAB PO SCH (10:48)
[2021-06-16] MEDS: ASPIRIN EC 81 MG TAB PO SCH (10:48)
[2021-06-16] MEDS: traMADol 50 MG TAB PO SCH ×2 (10:48→21:09)
[2021-06-16] MEDS: FAMOTIDINE 20 MG TAB PO SCH ×2 (10:49→21:09)
--- NOTE | 2021-06-16 12:26 | Progress Note ---
Assessment and Plan Sepsis MSSA Bacteremia Acute pulmonary embolism Acute chest pain History of DVT on warfarin Seizure disorder Anxiety Hypothyroidism microcytic anemia Morbid obesity Hypotension (Resolved) - continue Warfarin; target INR 2.0 to 3.0 - continue full anticoagulation with IV Heparin bridge - continue care as below otherwise; - continue to trend H&H prn - PRBC transfusions for serum Hb < 7.0 g/dl - follow H&H closely - continue Ancef; de-escalate per ID recommendations - continue Keppra as AED - continue thyroid replacement therapy - follow clinically re: fever curves / trend WBC - supplemental oxygen to keep O2 sats > 90% - bronchodilators (ALVERTO) with pulm hygiene per RT - continue to avoid nephrotoxins, renally dose all medications - continue mobility protocols to prevent pressure ulcers - PT/OT as tolerated - Wound care per RN/WCT - continue accuchecks with glycemic control per SSI for target blood glucose < 180 mg/dL - tobacco abstinence strongly counseled at the bedside - home oxygen evaluation at discharge - prn analgesia per pain score - GI prophylaxis with Pepcid - Flu & pneumovax per protocol - Pulmonary out patient follow up for PFTs and optimization of respiratory status - life style modifications counseled re: weight loss, better medication compliance - continue other care per attending / other consultants ... re-evaluate in am & prn Subjective Date of service: 06/16/21 Principal diagnosis: Sepsis; Acute P.E.; Chest pain; H/O DVT; Seizures; Hypothyroidism; Obesity Interval history: Patient is seen today for: Sepsis; Acute pulmonary embolism; Acute chest pain; H/O DVT; Seizure disorder; Hypothyroidism; Anemia; Morbid obesity; Hypotension (Resolved); MSSA Bacteremia Seen and examined at bedside; 24hour events reviewed; nursing and respiratory care staff consulted; no adverse overnight events reported to me; resting peacefully in bed; remains on Warfarin but INR sub therapeutic; seen by Hematology Objective Vital Signs - 12hr 06/16/21 06/16/21 04:38 10:31 Temperature 99.2 F 97.7 F Pulse Rate 53 L 66 Respiratory 18 18 Rate Blood Pressure 150/78 147/81 O2 Sat by Pulse 95 99 Oximetry Constitutional: no acute distress, asleep, other (elderly morbidly obese female without increased respiratory effort at rest) Eyes: non-icteric ENT: oropharynx moist Neck: supple, no lymphadenopathy, no JVD, other (large neck circumference; RIJ CVL) Effort: mildly labored Ascultation: Bilateral: clear, diminished breath sounds Percussion: Bilateral: not dull Cardiovascular: regular rate and rhythm Gastrointestinal: normoactive bowel sounds, soft, non-tender, other (distended but soft) Integumentary: normal Extremities: no cyanosis, no edema, pulses normal, no ischemia or petechiae Neurologic: non-focal exam (grossly), pupils equal and round, CN II-XII normal, motor strength normal and Psychiatric: other (Sleeping at this time.) CBC and BMP: 06/16/21 03:15 06/15/21 02:04 ABG, PT/INR, D-dimer: ABG ABG pH 7.401 pH Units (7.350-7.450) 06/15/21 10:28 ABG pCO2 46.2 mm Hg 06/15/21 10:28 ABG pO2 41.6 mm Hg (80.0-90.0) L 06/15/21 10:28 ABG O2 Saturation 69.2 % (95.0-99.0) L 06/15/21 10:28 PT/INR, D-dimer PT 16.7 Sec. (12.2-14.9) H 06/16/21 03:15 INR 1.21 (0.87-1.13) H 06/16/21 03:15 Abnormal lab findings: Abnormal Labs 05/29/21 05/29/21 05/29/21 23:24 23:24 23:29 WBC RBC Hgb 8.8 L Hct 28.7 L MCV 74 L MCH 23 L RDW 26.4 H Seg Neuts % (Manual) 75.0 H Lymphocytes % (Manual) Eosinophils % (Manual) Seg Neutrophils # Man Lymphocytes # (Manual) Eosinophils # (Manual) PT INR APTT 20.9 L Heparin Anti-Xa Level ABG pO2 ABG HCO3 ABG O2 Saturation ABG Hemoglobin Oxyhemoglobin Sodium Chloride Carbon Dioxide 20 L Creatinine Glucose Calcium ALT Total Protein Albumin 3.5 L TSH Vancomycin Trough Crossmatch 05/30/21 05/30/21 05/30/21 08:25 08:25 13:35 WBC RBC Hgb 8.8 L Hct 27.5 L MCV MCH RDW Seg Neuts % (Manual) Lymphocytes % (Manual) Eosinophils % (Manual) Seg Neutrophils # Man Lymphocytes # (Manual) Eosinophils # (Manual) PT 15.4 H INR APTT 107.1 H* Heparin Anti-Xa Level 0.82 H ABG pO2 ABG HCO3 ABG O2 Saturation ABG Hemoglobin Oxyhemoglobin Sodium Chloride Carbon Dioxide Creatinine Glucose Calcium ALT Total Protein Albumin TSH Vancomycin Trough Crossmatch 05/30/21 05/31/21 05/31/21 20:57 06:40 06:40 WBC 13.0 H RBC Hgb 8.9 L Hct 28.5 L MCV 74 L MCH 23 L RDW 25.7 H Seg Neuts % (Manual) 77.0 H Lymphocytes % (Manual) Eosinophils % (Manual) Seg Neutrophils # Man 10.0 H Lymphocytes # (Manual) Eosinophils # (Manual) PT INR APTT 52.6 H Heparin Anti-Xa Level 0.15 L 0.74 H ABG pO2 ABG HCO3 ABG O2 Saturation ABG Hemoglobin Oxyhemoglobin Sodium Chloride Carbon Dioxide Creatinine Glucose Calcium ALT Total Protein Albumin TSH Vancomycin Trough Crossmatch 06/01/21 06/01/21 06/02/21 09:55 10:27 06:15 WBC RBC Hgb 9.4 L Hct MCV MCH RDW Seg Neuts % (Manual) Lymphocytes % (Manual) Eosinophils % (Manual) Seg Neutrophils # Man Lymphocytes # (Manual) Eosinophils # (Manual) PT INR APTT Heparin Anti-Xa Level 0.13 L 0.25 L ABG pO2 ABG HCO3 ABG O2 Saturation ABG Hemoglobin Oxyhemoglobin Sodium Chloride Carbon Dioxide Creatinine Glucose Calcium ALT Total Protein Albumin TSH Vancomycin Trough Crossmatch 06/02/21 06/03/21 06/04/21 23:30 Unknown 07:39 WBC RBC Hgb 8.5 L Hct 28.0 L MCV MCH RDW Seg Neuts % (Manual) Lymphocytes % (Manual) Eosinophils % (Manual) Seg Neutrophils # Man Lymphocytes # (Manual) Eosinophils # (Manual) PT 15.0 H INR APTT Heparin Anti-Xa Level 0.19 L ABG pO2 ABG HCO3 ABG O2 Saturation ABG Hemoglobin Oxyhemoglobin Sodium Chloride Carbon Dioxide Creatinine Glucose Calcium ALT Total Protein Albumin TSH Vancomycin Trough Crossmatch 06/05/21 06/05/21 06/05/21 04:07 04:07 10:40 WBC RBC Hgb 8.4 L Hct 27.3 L MCV MCH RDW Seg Neuts % (Manual) Lymphocytes % (Manual) Eosinophils % (Manual) Seg Neutrophils # Man Lymphocytes # (Manual) Eosinophils # (Manual) PT 17.7 H INR 1.30 H APTT Heparin Anti-Xa Level ABG pO2 ABG HCO3 ABG O2 Saturation ABG Hemoglobin Oxyhemoglobin Sodium Chloride Carbon Dioxide Creatinine Glucose Calcium ALT Total Protein Albumin TSH 0.034 L Vancomycin Trough Crossmatch 06/05/21 06/05/21 06/06/21 10:40 11:01 04:00 WBC 14.0 H RBC 3.37 L Hgb 7.5 L Hct 24.8 L MCV 74 L MCH 22 L RDW 25.0 H Seg Neuts % (Manual) 94.0 H Lymphocytes % (Manual) 3.0 L Eosinophils % (Manual) Seg Neutrophils # Man 13.2 H Lymphocytes # (Manual) 0.4 L Eosinophils # (Manual) PT 17.4 H INR 1.27 H APTT Heparin Anti-Xa Level ABG pO2 ABG HCO3 ABG O2 Saturation ABG Hemoglobin Oxyhemoglobin Sodium 135 L Chloride Carbon Dioxide 20 L Creatinine Glucose Calcium 7.8 L ALT Total Protein Albumin TSH Vancomycin Trough Crossmatch 06/07/21 06/07/21 06/08/21 12:55 12:55 04:52 WBC RBC Hgb 7.1 L Hct 23.6 L MCV MCH RDW Seg Neuts % (Manual) Lymphocytes % (Manual) Eosinophils % (Manual) Seg Neutrophils # Man Lymphocytes # (Manual) Eosinophils # (Manual) PT 19.7 H INR 1.48 H APTT Heparin Anti-Xa Level ABG pO2 ABG HCO3 ABG O2 Saturation ABG Hemoglobin Oxyhemoglobin Sodium Chloride 116.6 H Carbon Dioxide 18 L Creatinine Glucose Calcium 7.4 L ALT Total Protein 4.7 L Albumin 2.7 L TSH Vancomycin Trough Crossmatch 06/08/21 06/09/21 06/09/21 04:52 06:46 06:46 WBC RBC 3.09 L Hgb 6.9 L Hct 22.4 L MCV 72 L MCH 22 L RDW 25.0 H Seg Neuts % (Manual) Lymphocytes % (Manual) Eosinophils % (Manual) Seg Neutrophils # Man Lymphocytes # (Manual) Eosinophils # (Manual) PT INR APTT Heparin Anti-Xa Level < 0.10 L ABG pO2 ABG HCO3 ABG O2 Saturation ABG Hemoglobin Oxyhemoglobin Sodium Chloride Carbon Dioxide Creatinine Glucose Calcium ALT Total Protein Albumin TSH Vancomycin Trough 25.1 H Crossmatch 06/09/21 06/10/21 06/10/21 Unknown 08:31 08:31 WBC RBC 3.17 L Hgb 7.1 L Hct 22.9 L MCV 72 L MCH 22 L RDW 25.5 H Seg Neuts % (Manual) 71.0 H Lymphocytes % (Manual) Eosinophils % (Manual) Seg Neutrophils # Man Lymphocytes # (Manual) 1.0 L Eosinophils # (Manual) PT 20.4 H 17.6 H INR 1.54 H 1.29 H APTT Heparin Anti-Xa Level ABG pO2 ABG HCO3 ABG O2 Saturation ABG Hemoglobin Oxyhemoglobin Sodium Chloride Carbon Dioxide Creatinine Glucose Calcium ALT Total Protein Albumin TSH Vancomycin Trough Crossmatch 06/10/21 06/10/21 06/11/21 08:31 08:33 08:25 WBC RBC Hgb Hct MCV MCH RDW Seg Neuts % (Manual) Lymphocytes % (Manual) Eosinophils % (Manual) Seg Neutrophils # Man Lymphocytes # (Manual) Eosinophils # (Manual) PT 16.3 H INR 1.17 H APTT Heparin Anti-Xa Level ABG pO2 ABG HCO3 ABG O2 Saturation ABG Hemoglobin Oxyhemoglobin Sodium Chloride 111.3 H Carbon Dioxide 21 L Creatinine 1.4 H Glucose Calcium ALT Total Protein 5.7 L D Albumin 3.2 L TSH Vancomycin Trough Crossmatch See Detail 06/12/21 06/12/21 06/14/21 05:45 05:45 Unknown WBC RBC Hgb Hct MCV MCH RDW Seg Neuts % (Manual) Lymphocytes % (Manual) Eosinophils % (Manual) Seg Neutrophils # Man Lymphocytes # (Manual) Eosinophils # (Manual) PT 16.1 H INR 1.16 H APTT Heparin Anti-Xa Level 0.26 L ABG pO2 ABG HCO3 ABG O2 Saturation ABG Hemoglobin Oxyhemoglobin Sodium Chloride Carbon Dioxide Creatinine 1.3 H Glucose Calcium ALT Total Protein Albumin TSH Vancomycin Trough Crossmatch 06/14/21 06/14/21 06/15/21 Unknown Unknown 03:56 WBC RBC 3.50 L Hgb 8.2 L Hct 26.3 L MCV 75 L MCH 24 L RDW 27.6 H Seg Neuts % (Manual) Lymphocytes % (Manual) Eosinophils % (Manual) Seg Neutrophils # Man Lymphocytes # (Manual) Eosinophils # (Manual) PT 15.4 H INR APTT Heparin Anti-Xa Level ABG pO2 ABG HCO3 ABG O2 Saturation ABG Hemoglobin Oxyhemoglobin Sodium Chloride Carbon Dioxide Creatinine Glucose 107 H Calcium ALT < 5 L Total Protein 5.9 L Albumin 3.5 L TSH Vancomycin Trough Crossmatch 06/15/21 06/15/21 06/16/21 03:56 10:28 03:15 WBC RBC 3.47 L Hgb 8.3 L Hct 25.8 L MCV 74 L MCH 24 L RDW 27.3 H Seg Neuts % (Manual) 72.0 H Lymphocytes % (Manual) Eosinophils % (Manual) 6.0 H Seg Neutrophils # Man Lymphocytes # (Manual) Eosinophils # (Manual) 0.5 H PT 16.7 H INR 1.21 H APTT Heparin Anti-Xa Level 0.17 L ABG pO2 41.6 L ABG HCO3 28.1 H ABG O2 Saturation 69.2 L ABG Hemoglobin 8.5 L Oxyhemoglobin 67.6 L Sodium Chloride Carbon Dioxide Creatinine Glucose Calcium ALT Total Protein Albumin TSH Vancomycin Trough Crossmatch 06/16/21 03:15 WBC RBC Hgb 8.7 L Hct 28.5 L MCV 75 L MCH 23 L RDW 27.3 H Seg Neuts % (Manual) 72.0 H Lymphocytes % (Manual) Eosinophils % (Manual) Seg Neutrophils # Man Lymphocytes # (Manual) Eosinophils # (Manual) PT INR APTT Heparin Anti-Xa Level ABG pO2 ABG HCO3 ABG O2 Saturation ABG Hemoglobin Oxyhemoglobin Sodium Chloride Carbon Dioxide Creatinine Glucose Calcium ALT Total Protein Albumin TSH Vancomycin Trough Crossmatch Allied health notes reviewed: nursing
--- NOTE | 2021-06-16 14:05 | Hem/Onc Progress Note ---
Subjective Date of service: 06/16/21 Interval history: Heme progress note Televisit via [facility] CPT 92503 Dx PE 40yo obese AA woman 244 lbs with h/o clotting, including PE and maybe cardiac clot has had reactions to DOAC and lovenox-->prescribed coumadin but assumed to be not taking it (based on subtherapeutic INR) Reports heavy menstrual bleeding-->found to have low MCV, needed RBC transfusion Chest CT shows evidence of PE and pneumonitis changes IMP: Clotting tendency--s/p "new" PE, now "requiring" anticoag likely not taking coumadin, but she has the challenge that she likely has heavier menstrual bleeding on coumadin doubt she has "coumadin resistance" r/o APLS or sickle cell trait recent severe iron deficiency presumed-->s/p RBC transfusion PLAN: Pending cardiolipin ab, factor v leiden, Hemoglobin electrophoresis to r/o sickle cell, thalassemia IV Ferrlicet 125mg today IV heparin--> coumadin Recommended that she stays in [facility] until PT INR >2, so you will know her dose observe her for inpatient medication noncompliance (make sure she takes coumadin) Laboratory Last Values WBC 7.2 K/mm3 (4.5-11.0) 06/16/21 03:15 Hgb 8.7 gm/dl (10.1-14.3) L 06/16/21 03:15 Hct 28.5 % (30.3-42.9) L 06/16/21 03:15 MCV 75 fl (79-97) L 06/16/21 03:15 Plt Count 438 K/mm3 (140-440) 06/16/21 03:15 PT 16.7 Sec. (12.2-14.9) H 06/16/21 03:15 INR 1.21 (0.87-1.13) H 06/16/21 03:15 APTT 52.6 Sec. (24.2-36.6) H 05/31/21 06:40 Fibrinogen 420 mg/dl (211-480) 06/16/21 03:15 Heparin Anti-Xa Level 0.17 U.I./ml (0.3-0.7) L 06/16/21 03:15 Creatinine 1.1 mg/dL (0.6-1.2) 06/15/21 02:04 AST 8 units/L (5-40) 06/14/21 Unknown ALT < 5 units/L (7-56) L 06/14/21 Unknown Alkaline Phosphatase 73 units/L (35-129) 06/14/21 Unknown HCG, Qual Negative (Negative) 05/29/21 23:24 Vancomycin Trough 25.1 ug/mL (5.0-20.0) H 06/08/21 04:52 LAURA Screen Negative (Negative) 06/05/21 15:10 Coronavirus (PCR) Negative (Negative) 06/05/21 07:26 Influenza A (Rapid) Negative (Negative) 06/05/21 14:06 Influenza A (RT-PCR) Negative (Negative) 06/05/21 14:06 Influenza B (Rapid) Negative (Negative) 06/05/21 14:06 Influenza B (RT-PCR) Negative (Negative) 06/05/21 14:06 Blood Type B POSITIVE 06/10/21 08:33 Antibody Screen Negative 06/10/21 08:33 Crossmatch See Detail 06/10/21 08:33 Objective - Constitutional Vitals: Last Vital Signs Temp 97.7 F 06/16/21 10:31 Pulse 66 06/16/21 10:31 Resp 18 06/16/21 10:31 BP 147/81 06/16/21 10:31 Pulse Ox 99 06/16/21 10:31 - Labs Lab Results: Laboratory Results - last 24 hr 06/16/21 06/16/21 03:15 03:15 WBC 7.2 RBC 3.79 Hgb 8.7 L Hct 28.5 L MCV 75 L MCH 23 L MCHC 30 RDW 27.3 H Plt Count 438 Add Manual Diff Complete Total Counted 100 Seg Neuts % (Manual) 72.0 H Band Neutrophils % 0 Lymphocytes % (Manual) 23.0 Reactive Lymphs % (Man) 0 Monocytes % (Manual) 1.0 Eosinophils % (Manual) 4.0 Basophils % (Manual) 0 Metamyelocytes % 0 Myelocytes % 0 Promyelocytes % 0 Blast Cells % 0 Nucleated RBC % Not Reportable Seg Neutrophils # Man 5.2 Band Neutrophils # 0.0 Lymphocytes # (Manual) 1.7 Abs React Lymphs (Man) 0.0 Monocytes # (Manual) 0.1 Eosinophils # (Manual) 0.3 Basophils # (Manual) 0.0 Metamyelocytes # 0.0 Myelocytes # 0.0 Promyelocytes # 0.0 Blast Cells # 0.0 WBC Morphology Not Reportable Hypersegmented Neuts Not Reportable Hyposegmented Neuts Not Reportable Hypogranular Neuts Not Reportable Smudge Cells Not Reportable Toxic Granulation Not Reportable Toxic Vacuolation Not Reportable Dohle Bodies Not Reportable Pelger-Huet Anomaly Not Reportable Jaime Rods Not Reportable Platelet Estimate Consistent w auto Clumped Platelets Not Reportable Plt Clumps, EDTA Not Reportable Large Platelets Not Reportable Giant Platelets Not Reportable Platelet Satelliting Not Reportable Plt Morphology Comment Not Reportable RBC Morphology Not Reportable Dimorphic RBCs Not Reportable Polychromasia Not Reportable Hypochromasia 2+ Poikilocytosis Not Reportable Anisocytosis 3+ Microcytosis Not Reportable Macrocytosis Not Reportable Spherocytes Not Reportable Pappenheimer Bodies Not Reportable Sickle Cells Not Reportable Target Cells Not Reportable Tear Drop Cells Not Reportable Ovalocytes Not Reportable Helmet Cells Not Reportable Graves-Attapulgus Bodies Not Reportable [place] Rings Not Reportable [place] Cells Not Reportable Bite Cells Not Reportable Crenated Cell Not Reportable Elliptocytes Not Reportable Acanthocytes (Spur) Not Reportable Rouleaux Not Reportable Hemoglobin C Crystals Not Reportable Schistocytes Not Reportable Malaria parasites Not Reportable Koffi Bodies Not Reportable Hem Pathologist Commnt No PT 16.7 H INR 1.21 H Fibrinogen 420 Heparin Anti-Xa Level 0.17 L Medications & Allergies - Medications Allergies/Adverse Reactions: Allergies acetaminophen [From Tylenol] Allergy (Verified 12/16/20 11:52) Hives enoxaparin [From Lovenox] Allergy (Verified 01/18/21 13:51) Rash, fever, vomiting garlic Allergy (Verified 01/18/21 13:51) Hives oxycodone [From Percocet] Allergy (Verified 01/18/21 13:51) Itching, rash peanut oil Allergy (Verified 01/18/21 13:51) Rash Penicillins Allergy (Verified 01/18/21 13:51) hives, vomiting ibuprofen [From Motrin] Adverse Reaction (Verified 01/18/21 13:51) nausea/vomiting Home Medications: Home Medications Medication Instructions Recorded Confirmed Last Taken Type Aspirin EC [Halfprin EC] 81 mg PO QDAY #30 01/01/20 05/31/21 05/30/21 Rx Warfarin [Coumadin] 7.5 mg PO DAILY@1700 #30 tablet 04/22/20 05/31/21 05/30/21 Rx QUEtiapine [SEROquel] 100 mg PO QAM 01/16/21 05/31/21 05/30/21 History Quetiapine Fumarate [SEROquel] 300 mg PO QHS 01/16/21 05/31/21 05/31/21 12:48 History levETIRAcetam [Keppra TAB] 500 mg PO BID 01/16/21 05/31/21 05/30/21 History traMADoL [Ultram] 100 mg PO TID 01/16/21 05/31/21 05/30/21 History ALPRAZolam [Xanax TAB] 0.5 mg PO TID 01/18/21 05/31/21 05/30/21 History Gabapentin [Neurontin] 300 mg PO TID 01/18/21 05/31/21 05/31/21 12:49 History propranoloL [Inderal] 40 mg PO BID 01/18/21 05/31/21 05/30/21 History predniSONE [Deltasone] 40 mg PO QDAY #10 tab 05/18/21 05/31/21 05/30/21 Rx Active Medications: Generic Name Dose Route Start Last Admin Trade Name Freq PRN Reason Stop Dose Admin Albuterol 2.5 mg 05/30/21 05:14 Albuterol 2.5 Mg/3 Ml Nebu IH Q3HRT PRN Shortness Of Breath Alprazolam 0.5 mg 06/09/21 08:00 06/16/21 10:48 Alprazolam 0.5 Mg Tab PO 0.5 mg BID ELLIOTT Administration Amlodipine Besylate 10 mg 06/12/21 10:00 06/16/21 10:48 Amlodipine 10 Mg Tab PO 10 mg QDAY ELLIOTT Administration Aspirin 81 mg 05/30/21 10:00 06/16/21 10:48 Aspirin Ec 81 Mg Tab PO 81 mg QDAY ELLIOTT Administration Famotidine 20 mg 05/30/21 10:00 06/16/21 10:49 Famotidine 20 Mg Tab PO 20 mg BID ELLIOTT Administration Gabapentin 100 mg 06/10/21 22:00 06/16/21 05:22 Gabapentin 100 Mg Cap PO 100 mg Q8HR ELLIOTT Administration Heparin Sodium (Porcine) 4,500 unit 06/03/21 09:46 Heparin 10,000 Units/10 Ml Vial 40 unit/kg (4500 unit) IV Q6H PRN Anti-Xa Assay < 0.1 units/ml Heparin Sodium/Sodium Chloride 25,000 unit in 500 mls @ 30 mls/hr 06/03/21 10:00 06/16/21 05:13 Heparin/ 0.45% Nacl-25,000 Unit/500 Ml IV Infused TITR ELLIOTT Titration Protocol 1,500 UNITS/HR Cefazolin Sodium 2 gm/ Sodium 100 mls @ 200 mls/hr 06/08/21 12:00 06/16/21 05:22 Chloride IV 07/19/21 18:29 200 mls/hr Q6HR ELLIOTT Administration Protocol Levetiracetam 500 mg 05/30/21 10:00 06/16/21 10:47 Levetiracetam 500 Mg Tab PO 500 mg BID ELLIOTT Administration Levothyroxine Sodium 150 mcg 06/06/21 06:00 06/16/21 05:22 Levothyroxine 150 Mcg Tab PO 150 mcg DAILY@0600 ELLIOTT Administration Morphine Sulfate 2 mg 06/03/21 09:30 06/16/21 10:45 Morphine 2 Mg/1 Ml Inj IV 2 mg Q8H PRN Administration Pain, Moderate (4-6) Ondansetron HCl 4 mg 06/05/21 08:00 06/14/21 06:47 Ondansetron 4 Mg/2 Ml Inj IV 4 mg Q4H PRN Administration Nausea And Vomiting Propranolol HCl 40 mg 05/30/21 10:00 06/16/21 10:47 Propranolol 40 Mg Tab PO 40 mg BID ELLIOTT Administration Quetiapine Fumarate 100 mg 05/30/21 10:00 06/16/21 10:48 Quetiapine 100 Mg Tab PO 100 mg QAM ELLIOTT Administration Sodium Chloride 10 ml 05/30/21 10:00 06/16/21 10:49 Sodium Chloride 0.9% 10 Ml Flush Syringe IV 10 ml BID ELLIOTT Administration Sodium Chloride 10 ml 05/30/21 05:14 Sodium Chloride 0.9% 10 Ml Flush Syringe IV PRN PRN LINE FLUSH Tramadol HCl 100 mg 06/09/21 08:00 06/16/21 10:48 Tramadol 50 Mg Tab PO 100 mg BID ELLIOTT Administration Warfarin Sodium 20 mg 06/16/21 17:00 Warfarin 10 Mg Tab PO 06/17/21 16:59 ONCE@1700 NR
[2021-06-16] MEDS: HEPARIN/ 0.45% NACL DRIP 25,000 UNIT/500 ML BAG IV SCH (14:44)
[2021-06-16] MEDS ORDERED: WARFARIN 10 MG TAB PO NR (17:00)
[2021-06-17] MEDS: ONDANSETRON 4 MG/2 ML INJ IV PRN (00:14)
[2021-06-17 04:58] LABS: Cardiolipin Ab IgA <2.0 APL-U/mL (<20.0); Cardiolipin Ab IgG <2.0 GPL-U/mL (<20.0); Cardiolipin Ab IgM <2.0 MPL-U/mL (<20.0)
[2021-06-17] MEDS: LEVOTHYROXINE 150 MCG TAB PO SCH (06:55)
[2021-06-17] MEDS: GABAPENTIN 100 MG CAP PO SCH ×3 (06:56→22:49)
[2021-06-17] MEDS: MORPHINE 2 MG/1 ML INJ IV PRN ×2 (07:05→15:30)
[2021-06-17] MEDS: HEPARIN/ 0.45% NACL DRIP 25,000 UNIT/500 ML BAG IV SCH (07:16)
[2021-06-17 07:44] LABS: INR 1.16 (0.87-1.13)
[2021-06-17] MEDS: levETIRAcetam 500 MG TAB PO SCH ×2 (10:57→22:49)
[2021-06-17] MEDS: ASPIRIN EC 81 MG TAB PO SCH (10:57)
[2021-06-17] MEDS: amLODIPine 10 MG TAB PO SCH (10:57)
[2021-06-17] MEDS: ALPRAZolam 0.5 MG TAB PO SCH ×2 (10:57→22:49)
[2021-06-17] MEDS: traMADol 50 MG TAB PO SCH ×2 (10:58→22:48)
[2021-06-17] MEDS: QUEtiapine 100 MG TAB PO SCH (10:58)
[2021-06-17] MEDS: FAMOTIDINE 20 MG TAB PO SCH ×2 (10:58→22:49)
[2021-06-17] MEDS: PROPRANOLOL 40 MG TAB PO SCH ×2 (10:59→22:47)
--- NOTE | 2021-06-17 11:26 | Progress Note ---
Assessment and Plan Assessment and plan: 40 years old female with past medical history of hypertension, PE x2, (R lung 05/2016, L lung 01/2017--on coumadin), R leg DVT 03/2017, Graves Disease, heart murmur, aortic dissection, PERICARDITIS, thyroid storm, and GERD admitted for acute bilateral pulmonary thromboemboli with evidence of mild right ventricular strain on heparin gtt and warfarin. Assessment and Plan: Sepsis, MSSA bacteremia -Etiology unclear, line infection vs endocarditis, infected TEVAR graft. -06/04 bcx: 3/ bottles MSSA - 06/07 bcx: NGTD - urine culture: NGTD -TTE negative for valvular vegetations -HANK negative for endocarditis - ID following -Continue Ancef -DAVID PICC line noted, remove RIJ CVC Hypotension (resolved) -Patient with low blood pressure at night -IVF started -avoid antihypotensives -labetalol currently held Acute pulmonary embolism History of DVT on warfarin Troponin unremarkable, chest x-ray unremarkable, bilateral lower extremity venous Dopplers unremarkable for acute DVT CT angio chest revealing acute bilateral pulmonary emboli with evidence of right heart strain Home medication of warfarin 7.5 mg daily; however, INR 1.03. Patient endorses being compliant with her anticoagulation. Continue heparin drip and bridged warfarin daily until therapeutic (goal 2.53.5). TTE without evidence of right heart strain Patient needs to be taking BOTH warfarin and heparin until INR goal of 2.5 achieved. - Remains subtherapeutic despite Heparin and Warfarin - Hematology consulted for possible warfarin resistance history of mechanical heart valve - goal inr 2.5. Seizure disorder Anxiety Continue home medications: Keppra 500 mg twice daily, Quetiapine 100 mg every morning and 300 mg nightly, alprazolam 0.5 mg 3 times daily History of aortic dissection s/p tevar. Hypothyroidism -resume home levothyroxine microcytic anemia -stable Transfuse if hemoglobin less than 7 or patient become symptomatic Morbid obesity Weight loss counseling Exercise counseling - BMI 39.1 - Counseled patient on the importance of weight loss, incorporating exercise, and dietary changes (lean meats, fresh fruits and vegetables, and water intake). Patient expresses understanding. Hospital Course: 06/05: Is unclear to me why the patient was transferred to the [facility] as I do not have any clear documentation to the results but in effect I was told by the nurse that the patient had pulled out his for her femoral line and did not have an access. Patient appears to have been having fever for a few days no known etiology we will proceed with a sepsis work-up although closely reviewing her case shows a history of thyroid storm in the past and she has not been receiving her thyroid medication while she does not have confusion at this time she does have tachycardia and tachypnea. We will give her a dose of IV levothyroxine today and start her daily dose of levothyroxine a.m. She has been on her propranolol although her home dose appears confusing as she gets 40 mg once daily and also 20 mg twice a day will discuss with her to clarify this and also with her pharmacy. She did have a right IJ triple-lumen catheter placed yesterday I discussed with her in the setting of well-documented by the nurse that she takes Midol at home which contains acetaminophen she is agreeable to trial acetaminophen as she wants to come off the cooling blanket. I also consulted ID and ordered a urinalysis with urine culture and some fluid support. I reviewed her CT scan and echocardiogram while the CT mentions the pulmonary embolism with mild right heart strain the echo shows a RVSP of 32 mmHg. 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 She continues on heparin drip while awaiting for therapeutic INR. In the meantime continue with antibiotic Right internal jugular vein triple-lumen catheter placement under ultrasound guidance 06/06: Patient seen and examined, showing some improvement, will follow cultures result, Continue abx, clinical stable, ID input, close eye on Hemoglobin. WBC mildly trended up. will transfer back to [facility]. 06/07: Continue supportive care, awaiting Cultures for ID and sensitivity in the meantime continue antibiotic. Am LABS. Patient continues on heparin drip until INR is therapeutic. I encouraged her to ambulate in her room and also set up on the chair. Cultures for COVID was negative. We will obtain PT OT evaluation. In short summary patient is a 40-year-old female with hypertension pulmonary embolism lower extremity DVT in the past on Coumadin who presented with shortness of breath diagnosed with pulmonary embolism admitted intermittently sepsis doubt septic emboli currently on antibiotics. Restarted on her thyroid medication with no evidence of thyroid storm. 06/08: resting comfortably on encounter. Afebrile today. Vital signs improved. 94% on 3L/min NC. Pain medication appears to be excessive as patient is heavily sedated, will scale back pain medication. D/w cardiology Dr Canseco regarding concern for endocarditis and possible infected TEVAR graft as potential source of infection. Consult placed for HANK. Will continue to follow culture data. Continue IV vancomycin per ID direction. INR remains subtherapeutic for treatment of DVT/PE but increased to 1.48, will continue warfarin at current do jerald and heparin gtt at this time. 06/09: continue therapy for MSSA bacteremia. Awaiting HANK completion. INR 1.54, warfarin 12.5 mg dose given today. Anemic today 6.9, ordered 1 unit prbc. Patient denies any rectal bleeding, bleeding from lines, hematemesis. Suspect anemia of chronic disease and possibly iatrogenic induced from multiple blood draw/line placement attempts. Lower suspicion for occult hematoma but will order CTAP. 06/10: Abx orders noted by ID. INR remains subtherapetuic, did not receive warfarin dose for some apparent reason. Pharmacy will give 15 mg dose today. Occult bleed r/o on ctap. No rectal bleeding reported. Will transfuse 1 unit prbc. Restart heparin gtt. Will follow up results of HANK from today. 06/11: HANK negative for endocarditis. INR subtherapuetic. unfortunately patient has missed last two day of warfarin dosing and inr reflects this. Patient could also be warfarin resistant. Patient needs to be receiving BOTH warfarin and heparin gtt until INR goal of 2.5 achieved. D/w pharmacy, will continue with 15 mg dosing at this time. Continue Iv abx. Discharge plan is for early next week. 06/12: Hypertensive this AM, added amlodipine for better BP control. INR 1.16. Continue heparin gtt while transitioning to warfarin. Plan for discharge early next week. CM working on OP IV abx arrangement. 06/13: Continue heparin gtt and warfarin. INR remains subtherapeutic. 06/14: Patient remains subtherapeutic despite heparin gtt and Warfarin. Will consult hematology for possible warfarin resistance and for further recs. Continue heparin gtt and warfarin for now. Patient remains on IV Abx, ancef per ID, DAVID PICC line noted remove RIJ CVC. 06/15: Continue heparin drip and warfarin until INR at goal of 2.5. . Patient remains on IV Abx, ancef per ID, DAVID PICC line noted remove RIJ CVC. 06/16: Continue heparin drip and warfarin until INR at goal of 2.5. . Patient remains on IV Abx, ancef per ID, DAVID PICC line noted remove RIJ CVC. Continue Keppra as needed for AEDs. Continue thyroid replacement therapy. 06/17: Continue heparin drip and warfarin until INR at goal of 2.5. . Patient remains on IV Abx, ancef per ID, DAVID PICC line noted remove RIJ CVC. Continue Keppra as needed for AEDs. History Interval history: No new issues overnight Hospitalist Physical - Constitutional Vitals: Temp Pulse Resp BP Pulse Ox 98.5 F 57 L 18 143/74 94 06/17/21 04:08 06/17/21 04:08 06/17/21 04:08 06/17/21 04:08 06/17/21 04:08 General appearance: Present: no acute distress, well-nourished, obese - EENT Eyes: Present: PERRL, EOM intact ENT: hearing intact, clear oral mucosa, dentition normal - Neck Neck: Present: supple, normal ROM - Respiratory Respiratory effort: normal Respiratory: bilateral: CTA - Cardiovascular Rhythm: regular Heart Sounds: Present: S1 & S2. Absent: gallop, rub - Extremities Extremities: no ischemia, No edema, Full ROM - Abdominal General gastrointestinal: soft, non-tender, non-distended, normal bowel sounds - Integumentary Integumentary: Present: clear, warm, dry - Neurologic Neurologic: CNII-XII intact, moves all extremities HEART Score - HEART Score Troponin: Troponin T < 0.010 ng/mL (0.00-0.029) 05/30/21 04:46 Results - Labs CBC & Chem 7: 06/16/21 03:15 06/15/21 02:04 Labs: Laboratory Last Values WBC 7.2 K/mm3 (4.5-11.0) 06/16/21 03:15 RBC 3.79 M/mm3 (3.65-5.03) 06/16/21 03:15 Hgb 8.7 gm/dl (10.1-14.3) L 06/16/21 03:15 Hct 28.5 % (30.3-42.9) L 06/16/21 03:15 MCV 75 fl (79-97) L 06/16/21 03:15 MCH 23 pg (28-32) L 06/16/21 03:15 MCHC 30 % (30-34) 06/16/21 03:15 RDW 27.3 % (13.2-15.2) H 06/16/21 03:15 Plt Count 438 K/mm3 (140-440) 06/16/21 03:15 Add Manual Diff Complete 06/16/21 03:15 Total Counted 100 06/16/21 03:15 Seg Neuts % (Manual) 72.0 % (40.0-70.0) H 06/16/21 03:15 Band Neutrophils % 0 % 06/16/21 03:15 Lymphocytes % (Manual) 23.0 % (13.4-35.0) 06/16/21 03:15 Reactive Lymphs % (Man) 0 % 06/16/21 03:15 Monocytes % (Manual) 1.0 % (0.0-7.3) 06/16/21 03:15 Eosinophils % (Manual) 4.0 % (0.0-4.3) 06/16/21 03:15 Basophils % (Manual) 0 % (0.0-1.8) 06/16/21 03:15 Metamyelocytes % 0 % 06/16/21 03:15 Myelocytes % 0 % 06/16/21 03:15 Promyelocytes % 0 % 06/16/21 03:15 Blast Cells % 0 % 06/16/21 03:15 Nucleated RBC % Not Reportable 06/16/21 03:15 Seg Neutrophils # Man 5.2 K/mm3 (1.8-7.7) 06/16/21 03:15 Band Neutrophils # 0.0 K/mm3 06/16/21 03:15 Lymphocytes # (Manual) 1.7 K/mm3 (1.2-5.4) 06/16/21 03:15 Abs React Lymphs (Man) 0.0 K/mm3 06/16/21 03:15 Monocytes # (Manual) 0.1 K/mm3 (0.0-0.8) 06/16/21 03:15 Eosinophils # (Manual) 0.3 K/mm3 (0.0-0.4) 06/16/21 03:15 Basophils # (Manual) 0.0 K/mm3 (0.0-0.1) 06/16/21 03:15 Metamyelocytes # 0.0 K/mm3 06/16/21 03:15 Myelocytes # 0.0 K/mm3 06/16/21 03:15 Promyelocytes # 0.0 K/mm3 06/16/21 03:15 Blast Cells # 0.0 K/mm3 06/16/21 03:15 WBC Morphology Not Reportable 06/16/21 03:15 Hypersegmented Neuts Not Reportable 06/16/21 03:15 Hyposegmented Neuts Not Reportable 06/16/21 03:15 Hypogranular Neuts Not Reportable 06/16/21 03:15 Smudge Cells Not Reportable 06/16/21 03:15 Toxic Granulation Not Reportable 06/16/21 03:15 Toxic Vacuolation Not Reportable 06/16/21 03:15 Dohle Bodies Not Reportable 06/16/21 03:15 Pelger-Huet Anomaly Not Reportable 06/16/21 03:15 Jaime Rods Not Reportable 06/16/21 03:15 Platelet Estimate Consistent w auto 06/16/21 03:15 Clumped Platelets Not Reportable 06/16/21 03:15 Plt Clumps, EDTA Not Reportable 06/16/21 03:15 Large Platelets Not Reportable 06/16/21 03:15 Giant Platelets Not Reportable 06/16/21 03:15 Platelet Satelliting Not Reportable 06/16/21 03:15 Plt Morphology Comment Not Reportable 06/16/21 03:15 RBC Morphology Not Reportable 06/16/21 03:15 Dimorphic RBCs Not Reportable 06/16/21 03:15 Polychromasia Not Reportable 06/16/21 03:15 Hypochromasia 2+ 06/16/21 03:15 Poikilocytosis Not Reportable 06/16/21 03:15 Anisocytosis 3+ 06/16/21 03:15 Microcytosis Not Reportable 06/16/21 03:15 Macrocytosis Not Reportable 06/16/21 03:15 Spherocytes Not Reportable 06/16/21 03:15 Pappenheimer Bodies Not Reportable 06/16/21 03:15 Sickle Cells Not Reportable 06/16/21 03:15 Target Cells Not Reportable 06/16/21 03:15 Tear Drop Cells Not Reportable 06/16/21 03:15 Ovalocytes Not Reportable 06/16/21 03:15 Helmet Cells Not Reportable 06/16/21 03:15 Graves-Cannelton Bodies Not Reportable 06/16/21 03:15 [place] Rings Not Reportable 06/16/21 03:15 [place] Cells Not Reportable 06/16/21 03:15 Bite Cells Not Reportable 06/16/21 03:15 Crenated Cell Not Reportable 06/16/21 03:15 Elliptocytes Not Reportable 06/16/21 03:15 Acanthocytes (Spur) Not Reportable 06/16/21 03:15 Rouleaux Not Reportable 06/16/21 03:15 Hemoglobin C Crystals Not Reportable 06/16/21 03:15 Schistocytes Not Reportable 06/16/21 03:15 Malaria parasites Not Reportable 06/16/21 03:15 Koffi Bodies Not Reportable 06/16/21 03:15 Hem Pathologist Commnt No 06/16/21 03:15 PT 16.1 Sec. (12.2-14.9) H 06/17/21 Unknown INR 1.16 (0.87-1.13) H 06/17/21 Unknown APTT 52.6 Sec. (24.2-36.6) H 05/31/21 06:40 Fibrinogen 420 mg/dl (211-480) 06/16/21 03:15 Heparin Anti-Xa Level 0.21 U.I./ml (0.3-0.7) L 06/17/21 Unknown ABG pH 7.401 pH Units (7.350-7.450) 06/15/21 10:28 ABG pCO2 46.2 mm Hg 06/15/21 10:28 ABG pO2 41.6 mm Hg (80.0-90.0) L 06/15/21 10:28 ABG HCO3 28.1 mmol/L (20.0-26.0) H 06/15/21 10:28 ABG O2 Saturation 69.2 % (95.0-99.0) L 06/15/21 10:28 ABG O2 Content 8.1 (0.0-44) 06/15/21 10:28 ABG Base Excess 2.9 mmol/L (-2.0-3.0) 06/15/21 10:28 ABG Hemoglobin 8.5 gm/dl (12.0-16.0) L 06/15/21 10:28 ABG Carboxyhemoglobin 1.7 % (0.0-5.0) 06/15/21 10: ABG Methemoglobin 0.7 % (0.0-1.5) 06/15/21 10: Oxyhemoglobin 67.6 % (95.0-99.0) L 06/15/21 10:28 FiO2 21 % 06/15/21 10:28 Sodium 140 mmol/L (137-145) 06/15/21 02:04 Potassium 4.5 mmol/L (3.6-5.0) 06/15/21 02:04 Chloride 104.8 mmol/L (98-107) 06/15/21 02:04 Carbon Dioxide 27 mmol/L (22-30) 06/15/21 02:04 Anion Gap 13 mmol/L 06/15/21 02:04 BUN 13 mg/dL (7-17) 06/15/21 02:04 Creatinine 1.1 mg/dL (0.6-1.2) 06/15/21 02:04 Estimated GFR > 60 ml/min 06/15/21 02:04 BUN/Creatinine Ratio 12 % 06/15/21 02:04 Glucose 87 mg/dL (65-100) 06/15/21 02:04 Lactic Acid 0.70 mmol/L (0.7-2.0) 06/05/21 10:40 Calcium 8.6 mg/dL (8.4-10.2) 06/15/21 02:04 Total Bilirubin < 0.20 mg/dL (0.1-1.2) 06/14/21 Unknown AST 8 units/L (5-40) 06/14/21 Unknown ALT < 5 units/L (7-56) L 06/14/21 Unknown Alkaline Phosphatase 73 units/L (35-129) 06/14/21 Unknown Troponin T < 0.010 ng/mL (0.00-0.029) 05/30/21 04:46 Total Protein 5.9 g/dL (6.3-8.2) L 06/14/21 Unknown Albumin 3.5 g/dL (3.9-5) L 06/14/21 Unknown Albumin/Globulin Ratio 1.5 % 06/14/21 Unknown Lipase 31 units/L (13-60) 05/30/21 04:41 TSH 0.034 mlU/mL (0.270-4.200) L 06/05/21 10:40 Free T4 1.29 ng/dL (0.76-1.46) 06/05/21 10:40 HCG, Qual Negative (Negative) 05/29/21 23:24 Urine Color Yellow (Yellow) 06/05/21 12:20 Urine Turbidity Slightly-cloudy (Clear) 06/05/21 12:20 Urine pH 6.0 (5.0-7.0) 06/05/21 12:20 Ur Specific [place] 1.004 (1.003-1.030) 06/05/21 12:20 Urine Protein <15 mg/dl mg/dL (Negative) 06/05/21 12:20 Urine Glucose (UA) Neg mg/dL (Negative) 06/05/21 12:20 Urine Ketones Neg mg/dL (Negative) 06/05/21 12:20 Urine Blood Mod (Negative) 06/05/21 12:20 Urine Nitrite Neg (Negative) 06/05/21 12:20 Urine Bilirubin Neg (Negative) 06/05/21 12:20 Urine Urobilinogen < 2.0 mg/dL (<2.0) 06/05/21 12:20 Ur Leukocyte Esterase Neg (Negative) 06/05/21 12:20 Urine WBC (Auto) 2.0 /HPF (0.0-6.0) 06/05/21 12:20 Urine RBC (Auto) 37.0 /HPF (0.0-6.0) 06/05/21 12:20 U Epithel Cells (Auto) 3.0 /HPF (0-13.0) 06/05/21 12:20 Urine Bacteria (Auto) 4+ /HPF (Negative) 06/05/21 12:20 Urine Mucus Few /HPF 06/05/21 12:20 Vancomycin Trough 25.1 ug/mL (5.0-20.0) H 06/08/21 04:52 LAURA Screen Negative (Negative) 06/05/21 15:10 Cardiolipid IgG Ab <2.0 GPL-U/mL (<20.0) 06/15/21 06:47 Cardiolipid IgA Ab <2.0 APL-U/mL (<20.0) 06/15/21 06:47 Cardiolipid IgM Ab <2.0 MPL-U/mL (<20.0) 06/15/21 06:47 Coronavirus (PCR) Negative (Negative) 06/05/21 07:26 Influenza A (Rapid) Negative (Negative) 06/05/21 14:06 Influenza A (RT-PCR) Negative (Negative) 06/05/21 14:06 Influenza B (Rapid) Negative (Negative) 06/05/21 14:06 Influenza B (RT-PCR) Negative (Negative) 06/05/21 14:06 Blood Type B POSITIVE 06/10/21 08:33 Antibody Screen Negative 06/10/21 08:33 Crossmatch See Detail 06/10/21 08:33 Rojas/IV: Voiding Method Bedside Commode Active Medications - Current Medications Current Medications: Generic Name Dose Route Start Last Admin Trade Name Freq PRN Reason Stop Dose Admin Albuterol 2.5 mg 05/30/21 05:14 Albuterol 2.5 Mg/3 Ml Nebu IH Q3HRT PRN Shortness Of Breath Alprazolam 0.5 mg 06/09/21 08:00 06/17/21 10:57 Alprazolam 0.5 Mg Tab PO 0.5 mg BID ELLIOTT Administration Amlodipine Besylate 10 mg 06/12/21 10:00 06/17/21 10:57 Amlodipine 10 Mg Tab PO 10 mg QDAY ELLIOTT Administration Aspirin 81 mg 05/30/21 10:00 06/17/21 10:57 Aspirin Ec 81 Mg Tab PO 81 mg QDAY ELLIOTT Administration Famotidine 20 mg 05/30/21 10:00 06/17/21 10:58 Famotidine 20 Mg Tab PO 20 mg BID ELLIOTT Administration Gabapentin 100 mg 06/10/21 22:00 06/17/21 06:56 Gabapentin 100 Mg Cap PO 100 mg Q8HR ELLIOTT Administration Heparin Sodium (Porcine) 4,500 unit 06/03/21 09:46 Heparin 10,000 Units/10 Ml Vial 40 unit/kg (4500 unit) IV Q6H PRN Anti-Xa Assay < 0.1 units/ml Heparin Sodium/Sodium Chloride 25,000 unit in 500 mls @ 30 mls/hr 06/03/21 10:00 06/17/21 08:10 Heparin/ 0.45% Nacl-25,000 Unit/500 Ml IV 2,400 units/hr TITR ELLIOTT 48 mls/hr Titration Protocol 1,500 UNITS/HR Cefazolin Sodium 2 gm/ Sodium 100 mls @ 200 mls/hr 06/08/21 12:00 06/17/21 06:56 Chloride IV 07/19/21 18:29 200 mls/hr Q6HR ELLIOTT Administration Protocol Levetiracetam 500 mg 05/30/21 10:00 06/17/21 10:57 Levetiracetam 500 Mg Tab PO 500 mg BID ELLIOTT Administration Levothyroxine Sodium 150 mcg 06/06/21 06:00 06/17/21 06:55 Levothyroxine 150 Mcg Tab PO 150 mcg DAILY@0600 ELLIOTT Administration Morphine Sulfate 2 mg 06/03/21 09:30 06/17/21 07:05 Morphine 2 Mg/1 Ml Inj IV 2 mg Q8H PRN Administration Pain, Moderate (4-6) Ondansetron HCl 4 mg 06/05/21 08:00 06/17/21 00:14 Ondansetron 4 Mg/2 Ml Inj IV 4 mg Q4H PRN Administration Nausea And Vomiting Propranolol HCl 40 mg 05/30/21 10:00 06/17/21 10:59 Propranolol 40 Mg Tab PO 40 mg BID ELLIOTT Administration Quetiapine Fumarate 100 mg 05/30/21 10:00 06/17/21 10:58 Quetiapine 100 Mg Tab PO 100 mg QAM ELLIOTT Administration Sodium Chloride 10 ml 05/30/21 10:00 06/17/21 10:58 Sodium Chloride 0.9% 10 Ml Flush Syringe IV 10 ml BID ELLIOTT Administration Sodium Chloride 10 ml 05/30/21 05:14 Sodium Chloride 0.9% 10 Ml Flush Syringe IV PRN PRN LINE FLUSH Tramadol HCl 100 mg 06/09/21 08:00 06/17/21 10:58 Tramadol 50 Mg Tab PO 100 mg BID ELLIOTT Administration Warfarin Sodium 20 mg 06/16/21 17:00 06/16/21 17:00 Warfarin 10 Mg Tab PO 06/17/21 16:59 20 mg ONCE@1700 NR Administration Nutrition/Malnutrition Assess - Dietary Evaluation Nutrition/Malnutrition Findings: Nutrition Notes Start: 05/31/21 12:39 Freq: Status: Active Protocol: Document 06/14/21 07:31 KING (Rec: 06/14/21 07:42 KING [id number]) Nutrition Notes Initial or Follow up Reassessment Current Diagnosis Sepsis,Hypertension Other Pertinent Diagnosis Pulmonary embolism, Chest pain , Seizure D/O, Anxiety, Hypothyroidism Current Diet Renal Labs/Tests No current available Pertinent Medications Reviewed Height 5 ft 7 in Weight 111 kg [place] Body Weight (kg) 61.36 BMI 38.3 Weight Status Obese Subjective/Other Information Pt has consumed 50% of meals since last assessment. Not sure why pt prescribed renal diet on 06/11; no mention of renal dysfunction in MD notes. Cr lab increased to 1.4 on but is trending downward. Percent of energy/protein needs met: 58% energy 56% pro Burn Absent Trauma Absent Current % PO Fair (50-74%) #1 Nutrition Diagnosis Inadequate protein-energy intake Etiology medical dx, anxiety As Evidenced by Signs and Symptoms PO intake meeting <75% estimated energy and pro needs Is patient on ventilator? No Is Patient Ambulatory and/or Out of Bed Yes REE-([facility]-ambulatory/OOB) [ 2356.419 [id number]] Kcal/Kg value to use for calculation 16 Approximate Energy Requirements Using 1776 kcal/Kg Calculation Used for Recommendations Kcal/kg Additional Notes Pro needs 0.8-1g/kg adjBW: 69- 86g/day Fluid needs 1ml/kcal Nutrition Intervention Change Diet Order: Continue current diet order Add Supplement/Snack (indicate name/kcal Ensure High Protein once daily /protein ) Provides kCal: 160 Provides Protein (gm) 16 Goal #1 PO intake of meals plus ONS to meet at least 75% energy and pro needs Follow-Up By: 06/21/21 Additional Comments F/U: intakes (meals/ONS), renal function and need for renal diet, wt
--- NOTE | 2021-06-17 11:28 | Hem/Onc Progress Note ---
Subjective Date of service: 06/17/21 Interval history: Heme progress note Televisit via [facility] CPT 04883 Dx PE 40yo obese AA woman 244 lbs with h/o clotting, including PE and maybe cardiac clot has had reactions to DOAC and lovenox-->prescribed coumadin but assumed to be not taking it (based on subtherapeutic INR) Reports heavy menstrual bleeding-->found to have low MCV, needed RBC transfusion Chest CT shows evidence of PE and pneumonitis changes Feels better today. No overt bleeding noted or reported. DATA REVIEWED BELOW Cardiolipin ab negative IMP: Clotting tendency--s/p "new" PE, now "requiring" anticoag likely not taking coumadin, but she has the challenge that she likely has heavier menstrual bleeding on coumadin doubt she has "coumadin resistance" r/o sickle cell trait --Cardiolipin ab negative recent severe iron deficiency presumed-->s/p RBC transfusion PLAN: Pending pending factor v leiden testing, Hemoglobin electrophoresis to r/o sickle cell IV Ferrlicet 125mg today IV heparin--> Coumadin Recommended that she stays in [facility] until PT INR >2, so you will know her dose observe her for inpatient medication noncompliance (make sure she takes coumadin) Laboratory Last Values WBC 7.2 K/mm3 (4.5-11.0) 06/16/21 03:15 Hgb 8.7 gm/dl (10.1-14.3) L 06/16/21 03:15 Hct 28.5 % (30.3-42.9) L 06/16/21 03:15 MCV 75 fl (79-97) L 06/16/21 03:15 Plt Count 438 K/mm3 (140-440) 06/16/21 03:15 PT 16.1 Sec. (12.2-14.9) H 06/17/21 Unknown INR 1.16 (0.87-1.13) H 06/17/21 Unknown APTT 52.6 Sec. (24.2-36.6) H 05/31/21 06:40 Fibrinogen 420 mg/dl (211-480) 06/16/21 03:15 Heparin Anti-Xa Level 0.21 U.I./ml (0.3-0.7) L 06/17/21 Unknown Creatinine 1.1 mg/dL (0.6-1.2) 06/15/21 02:04 AST 8 units/L (5-40) 06/14/21 Unknown ALT < 5 units/L (7-56) L 06/14/21 Unknown Alkaline Phosphatase 73 units/L (35-129) 06/14/21 Unknown TSH 0.034 mlU/mL (0.270-4.200) L 06/05/21 10:40 LAURA Screen Negative (Negative) 06/05/21 15:10 Cardiolipid IgG Ab <2.0 GPL-U/mL (<20.0) 06/15/21 06:47 Cardiolipid IgA Ab <2.0 APL-U/mL (<20.0) 06/15/21 06:47 Cardiolipid IgM Ab <2.0 MPL-U/mL (<20.0) 06/15/21 06:47 Coronavirus (PCR) Negative (Negative) 06/05/21 07:26 Objective - Constitutional Vitals: Last Vital Signs Temp 98.5 F 06/17/21 04:08 Pulse 57 L 06/17/21 04:08 Resp 18 06/17/21 04:08 BP 143/74 06/17/21 04:08 Pulse Ox 94 06/17/21 04:08 - Labs Lab Results: Laboratory Results - last 24 hr 06/15/21 06/16/21 06/17/21 06:47 Unknown 00:25 PT INR Heparin Anti-Xa Level < 0.10 L 0.80 H Cardiolipid IgG Ab <2.0 Cardiolipid IgA Ab <2.0 Cardiolipid IgM Ab <2.0 06/17/21 Unknown PT 16.1 H INR 1.16 H Heparin Anti-Xa Level 0.21 L Cardiolipid IgG Ab Cardiolipid IgA Ab Cardiolipid IgM Ab Medications & Allergies - Medications Allergies/Adverse Reactions: Allergies acetaminophen [From Tylenol] Allergy (Verified 12/16/20 11:52) Hives enoxaparin [From Lovenox] Allergy (Verified 01/18/21 13:51) Rash, fever, vomiting garlic Allergy (Verified 01/18/21 13:51) Hives oxycodone [From Percocet] Allergy (Verified 01/18/21 13:51) Itching, rash peanut oil Allergy (Verified 01/18/21 13:51) Rash Penicillins Allergy (Verified 01/18/21 13:51) hives, vomiting ibuprofen [From Motrin] Adverse Reaction (Verified 01/18/21 13:51) nausea/vomiting Home Medications: Home Medications Medication Instructions Recorded Confirmed Last Taken Type Aspirin EC [Halfprin EC] 81 mg PO QDAY #30 01/01/20 05/31/21 05/30/21 Rx Warfarin [Coumadin] 7.5 mg PO DAILY@1700 #30 tablet 04/22/20 05/31/21 05/30/21 Rx QUEtiapine [SEROquel] 100 mg PO QAM 01/16/21 05/31/21 05/30/21 History Quetiapine Fumarate [SEROquel] 300 mg PO QHS 01/16/21 05/31/21 05/31/21 12:48 History levETIRAcetam [Keppra TAB] 500 mg PO BID 01/16/21 05/31/21 05/30/21 History traMADoL [Ultram] 100 mg PO TID 01/16/21 05/31/21 05/30/21 History ALPRAZolam [Xanax TAB] 0.5 mg PO TID 01/18/21 05/31/21 05/30/21 History Gabapentin [Neurontin] 300 mg PO TID 01/18/21 05/31/21 05/31/21 12:49 History propranoloL [Inderal] 40 mg PO BID 01/18/21 05/31/21 05/30/21 History predniSONE [Deltasone] 40 mg PO QDAY #10 tab 05/18/21 05/31/21 05/30/21 Rx Active Medications: Generic Name Dose Route Start Last Admin Trade Name Freq PRN Reason Stop Dose Admin Albuterol 2.5 mg 05/30/21 05:14 Albuterol 2.5 Mg/3 Ml Nebu IH Q3HRT PRN Shortness Of Breath Alprazolam 0.5 mg 06/09/21 08:00 06/17/21 10:57 Alprazolam 0.5 Mg Tab PO 0.5 mg BID ELLIOTT Administration Amlodipine Besylate 10 mg 06/12/21 10:00 06/17/21 10:57 Amlodipine 10 Mg Tab PO 10 mg QDAY ELLIOTT Administration Aspirin 81 mg 05/30/21 10:00 06/17/21 10:57 Aspirin Ec 81 Mg Tab PO 81 mg QDAY ELLIOTT Administration Famotidine 20 mg 05/30/21 10:00 06/17/21 10:58 Famotidine 20 Mg Tab PO 20 mg BID ELLIOTT Administration Gabapentin 100 mg 06/10/21 22:00 06/17/21 06:56 Gabapentin 100 Mg Cap PO 100 mg Q8HR ELLIOTT Administration Heparin Sodium (Porcine) 4,500 unit 06/03/21 09:46 Heparin 10,000 Units/10 Ml Vial 40 unit/kg (4500 unit) IV Q6H PRN Anti-Xa Assay < 0.1 units/ml Heparin Sodium/Sodium Chloride 25,000 unit in 500 mls @ 30 mls/hr 06/03/21 10:00 06/17/21 08:10 Heparin/ 0.45% Nacl-25,000 Unit/500 Ml IV 2,400 units/hr TITR ELLIOTT 48 mls/hr Titration Protocol 1,500 UNITS/HR Cefazolin Sodium 2 gm/ Sodium 100 mls @ 200 mls/hr 06/08/21 12:00 06/17/21 06:56 Chloride IV 07/19/21 18:29 200 mls/hr Q6HR ELLIOTT Administration Protocol Levetiracetam 500 mg 05/30/21 10:00 06/17/21 10:57 Levetiracetam 500 Mg Tab PO 500 mg BID ELLIOTT Administration Levothyroxine Sodium 150 mcg 06/06/21 06:00 06/17/21 06:55 Levothyroxine 150 Mcg Tab PO 150 mcg DAILY@0600 ELLIOTT Administration Morphine Sulfate 2 mg 06/03/21 09:30 06/17/21 07:05 Morphine 2 Mg/1 Ml Inj IV 2 mg Q8H PRN Administration Pain, Moderate (4-6) Ondansetron HCl 4 mg 06/05/21 08:00 06/17/21 00:14 Ondansetron 4 Mg/2 Ml Inj IV 4 mg Q4H PRN Administration Nausea And Vomiting Propranolol HCl 40 mg 05/30/21 10:00 06/17/21 10:59 Propranolol 40 Mg Tab PO 40 mg BID ELLIOTT Administration Quetiapine Fumarate 100 mg 05/30/21 10:00 06/17/21 10:58 Quetiapine 100 Mg Tab PO 100 mg QAM ELLIOTT Administration Sodium Chloride 10 ml 05/30/21 10:00 06/17/21 10:58 Sodium Chloride 0.9% 10 Ml Flush Syringe IV 10 ml BID ELLIOTT Administration Sodium Chloride 10 ml 05/30/21 05:14 Sodium Chloride 0.9% 10 Ml Flush Syringe IV PRN PRN LINE FLUSH Tramadol HCl 100 mg 06/09/21 08:00 06/17/21 10:58 Tramadol 50 Mg Tab PO 100 mg BID ELLIOTT Administration Warfarin Sodium 20 mg 06/16/21 17:00 06/16/21 17:00 Warfarin 10 Mg Tab PO 06/17/21 16:59 20 mg ONCE@1700 NR Administration
--- NOTE | 2021-06-17 14:59 | Progress Note ---
Assessment and Plan Sepsis MSSA Bacteremia Acute pulmonary embolism Acute chest pain History of DVT on warfarin Seizure disorder Anxiety Hypothyroidism microcytic anemia Morbid obesity Hypotension (Resolved) - continue Warfarin; target INR 2.0 to 3.0 - continue full anticoagulation with IV Heparin bridge - continue care as below otherwise; - continue to trend H&H prn - PRBC transfusions for serum Hb < 7.0 g/dl - follow H&H closely - continue Ancef; de-escalate per ID recommendations - continue Keppra as AED - continue thyroid replacement therapy - follow clinically re: fever curves / trend WBC - supplemental oxygen to keep O2 sats > 90% - bronchodilators (ALVERTO) with pulm hygiene per RT - continue to avoid nephrotoxins, renally dose all medications - continue mobility protocols to prevent pressure ulcers - PT/OT as tolerated - Wound care per RN/WCT - continue accuchecks with glycemic control per SSI for target blood glucose < 180 mg/dL - tobacco abstinence strongly counseled at the bedside - home oxygen evaluation at discharge - prn analgesia per pain score - GI prophylaxis with Pepcid - Flu & pneumovax per protocol - Pulmonary out patient follow up for PFTs and optimization of respiratory status - life style modifications counseled re: weight loss, better medication compliance - continue other care per attending / other consultants ... re-evaluate in am & prn Subjective Date of service: 06/17/21 Principal diagnosis: Sepsis; Acute P.E.; Chest pain; H/O DVT; Seizures; Hypothyroidism; Obesity Interval history: Patient is seen today for: Sepsis; Acute pulmonary embolism; Acute chest pain; H/O DVT; Seizure disorder; Hypothyroidism; Anemia; Morbid obesity; Hypotension (Resolved); MSSA Bacteremia Seen and examined at bedside; 24hour events reviewed; nursing and respiratory care staff consulted; no adverse overnight events reported to me; resting peacefully in bed; remains on Warfarin with Heparin bridge as INR still sub therapeutic; no bleeding Objective Vital Signs - 12hr 06/17/21 06/17/21 04:08 12:05 Temperature 98.5 F 98.9 F Pulse Rate 57 L 65 Respiratory 18 22 Rate Blood Pressure 143/74 129/51 O2 Sat by Pulse 94 93 Oximetry Constitutional: no acute distress, asleep, other (elderly morbidly obese female without increased respiratory effort at rest) Eyes: non-icteric ENT: oropharynx moist Neck: supple, no lymphadenopathy, no JVD, other (large neck circumference; RIJ CVL) Effort: mildly labored Ascultation: Bilateral: clear, diminished breath sounds Percussion: Bilateral: not dull Cardiovascular: regular rate and rhythm Gastrointestinal: normoactive bowel sounds, soft, non-tender, other (distended but soft) Integumentary: normal Extremities: no cyanosis, no edema, pulses normal, no ischemia or petechiae Neurologic: non-focal exam (grossly), pupils equal and round, CN II-XII normal, motor strength normal and Psychiatric: other (Sleeping at this time.) CBC and BMP: 06/20/21 05:00 06/20/21 05:00 ABG, PT/INR, D-dimer: ABG ABG pH 7.401 pH Units (7.350-7.450) 06/15/21 10:28 ABG pCO2 46.2 mm Hg 06/15/21 10:28 ABG pO2 41.6 mm Hg (80.0-90.0) L 06/15/21 10:28 ABG O2 Saturation 69.2 % (95.0-99.0) L 06/15/21 10:28 PT/INR, D-dimer PT 16.1 Sec. (12.2-14.9) H 06/17/21 Unknown INR 1.16 (0.87-1.13) H 06/17/21 Unknown Abnormal lab findings: Abnormal Labs 05/29/21 05/29/21 05/29/21 23:24 23:24 23:29 WBC RBC Hgb 8.8 L Hct 28.7 L MCV 74 L MCH 23 L RDW 26.4 H Seg Neuts % (Manual) 75.0 H Lymphocytes % (Manual) Eosinophils % (Manual) Seg Neutrophils # Man Lymphocytes # (Manual) Eosinophils # (Manual) PT INR APTT 20.9 L Heparin Anti-Xa Level ABG pO2 ABG HCO3 ABG O2 Saturation ABG Hemoglobin Oxyhemoglobin Sodium Chloride Carbon Dioxide 20 L Creatinine Glucose Calcium ALT Total Protein Albumin 3.5 L TSH Vancomycin Trough Crossmatch 05/30/21 05/30/21 05/30/21 08:25 08:25 13:35 WBC RBC Hgb 8.8 L Hct 27.5 L MCV MCH RDW Seg Neuts % (Manual) Lymphocytes % (Manual) Eosinophils % (Manual) Seg Neutrophils # Man Lymphocytes # (Manual) Eosinophils # (Manual) PT 15.4 H INR APTT 107.1 H* Heparin Anti-Xa Level 0.82 H ABG pO2 ABG HCO3 ABG O2 Saturation ABG Hemoglobin Oxyhemoglobin Sodium Chloride Carbon Dioxide Creatinine Glucose Calcium ALT Total Protein Albumin TSH Vancomycin Trough Crossmatch 05/30/21 05/31/21 05/31/21 20:57 06:40 06:40 WBC 13.0 H RBC Hgb 8.9 L Hct 28.5 L MCV 74 L MCH 23 L RDW 25.7 H Seg Neuts % (Manual) 77.0 H Lymphocytes % (Manual) Eosinophils % (Manual) Seg Neutrophils # Man 10.0 H Lymphocytes # (Manual) Eosinophils # (Manual) PT INR APTT 52.6 H Heparin Anti-Xa Level 0.15 L 0.74 H ABG pO2 ABG HCO3 ABG O2 Saturation ABG Hemoglobin Oxyhemoglobin Sodium Chloride Carbon Dioxide Creatinine Glucose Calcium ALT Total Protein Albumin TSH Vancomycin Trough Crossmatch 06/01/21 06/01/21 06/02/21 09:55 10:27 06:15 WBC RBC Hgb 9.4 L Hct MCV MCH RDW Seg Neuts % (Manual) Lymphocytes % (Manual) Eosinophils % (Manual) Seg Neutrophils # Man Lymphocytes # (Manual) Eosinophils # (Manual) PT INR APTT Heparin Anti-Xa Level 0.13 L 0.25 L ABG pO2 ABG HCO3 ABG O2 Saturation ABG Hemoglobin Oxyhemoglobin Sodium Chloride Carbon Dioxide Creatinine Glucose Calcium ALT Total Protein Albumin TSH Vancomycin Trough Crossmatch 06/02/21 06/03/21 06/04/21 23:30 Unknown 07:39 WBC RBC Hgb 8.5 L Hct 28.0 L MCV MCH RDW Seg Neuts % (Manual) Lymphocytes % (Manual) Eosinophils % (Manual) Seg Neutrophils # Man Lymphocytes # (Manual) Eosinophils # (Manual) PT 15.0 H INR APTT Heparin Anti-Xa Level 0.19 L ABG pO2 ABG HCO3 ABG O2 Saturation ABG Hemoglobin Oxyhemoglobin Sodium Chloride Carbon Dioxide Creatinine Glucose Calcium ALT Total Protein Albumin TSH Vancomycin Trough Crossmatch 06/05/21 06/05/21 06/05/21 04:07 04:07 10:40 WBC RBC Hgb 8.4 L Hct 27.3 L MCV MCH RDW Seg Neuts % (Manual) Lymphocytes % (Manual) Eosinophils % (Manual) Seg Neutrophils # Man Lymphocytes # (Manual) Eosinophils # (Manual) PT 17.7 H INR 1.30 H APTT Heparin Anti-Xa Level ABG pO2 ABG HCO3 ABG O2 Saturation ABG Hemoglobin Oxyhemoglobin Sodium Chloride Carbon Dioxide Creatinine Glucose Calcium ALT Total Protein Albumin TSH 0.034 L Vancomycin Trough Crossmatch 06/05/21 06/05/21 06/06/21 10:40 11:01 04:00 WBC 14.0 H RBC 3.37 L Hgb 7.5 L Hct 24.8 L MCV 74 L MCH 22 L RDW 25.0 H Seg Neuts % (Manual) 94.0 H Lymphocytes % (Manual) 3.0 L Eosinophils % (Manual) Seg Neutrophils # Man 13.2 H Lymphocytes # (Manual) 0.4 L Eosinophils # (Manual) PT 17.4 H INR 1.27 H APTT Heparin Anti-Xa Level ABG pO2 ABG HCO3 ABG O2 Saturation ABG Hemoglobin Oxyhemoglobin Sodium 135 L Chloride Carbon Dioxide 20 L Creatinine Glucose Calcium 7.8 L ALT Total Protein Albumin TSH Vancomycin Trough Crossmatch 06/07/21 06/07/21 06/08/21 12:55 12:55 04:52 WBC RBC Hgb 7.1 L Hct 23.6 L MCV MCH RDW Seg Neuts % (Manual) Lymphocytes % (Manual) Eosinophils % (Manual) Seg Neutrophils # Man Lymphocytes # (Manual) Eosinophils # (Manual) PT 19.7 H INR 1.48 H APTT Heparin Anti-Xa Level ABG pO2 ABG HCO3 ABG O2 Saturation ABG Hemoglobin Oxyhemoglobin Sodium Chloride 116.6 H Carbon Dioxide 18 L Creatinine Glucose Calcium 7.4 L ALT Total Protein 4.7 L Albumin 2.7 L TSH Vancomycin Trough Crossmatch 06/08/21 06/09/21 06/09/21 04:52 06:46 06:46 WBC RBC 3.09 L Hgb 6.9 L Hct 22.4 L MCV 72 L MCH 22 L RDW 25.0 H Seg Neuts % (Manual) Lymphocytes % (Manual) Eosinophils % (Manual) Seg Neutrophils # Man Lymphocytes # (Manual) Eosinophils # (Manual) PT INR APTT Heparin Anti-Xa Level < 0.10 L ABG pO2 ABG HCO3 ABG O2 Saturation ABG Hemoglobin Oxyhemoglobin Sodium Chloride Carbon Dioxide Creatinine Glucose Calcium ALT Total Protein Albumin TSH Vancomycin Trough 25.1 H Crossmatch 06/09/21 06/10/21 06/10/21 Unknown 08:31 08:31 WBC RBC 3.17 L Hgb 7.1 L Hct 22.9 L MCV 72 L MCH 22 L RDW 25.5 H Seg Neuts % (Manual) 71.0 H Lymphocytes % (Manual) Eosinophils % (Manual) Seg Neutrophils # Man Lymphocytes # (Manual) 1.0 L Eosinophils # (Manual) PT 20.4 H 17.6 H INR 1.54 H 1.29 H APTT Heparin Anti-Xa Level ABG pO2 ABG HCO3 ABG O2 Saturation ABG Hemoglobin Oxyhemoglobin Sodium Chloride Carbon Dioxide Creatinine Glucose Calcium ALT Total Protein Albumin TSH Vancomycin Trough Crossmatch 06/10/21 06/10/21 06/11/21 08:31 08:33 08:25 WBC RBC Hgb Hct MCV MCH RDW Seg Neuts % (Manual) Lymphocytes % (Manual) Eosinophils % (Manual) Seg Neutrophils # Man Lymphocytes # (Manual) Eosinophils # (Manual) PT 16.3 H INR 1.17 H APTT Heparin Anti-Xa Level ABG pO2 ABG HCO3 ABG O2 Saturation ABG Hemoglobin Oxyhemoglobin Sodium Chloride 111.3 H Carbon Dioxide 21 L Creatinine 1.4 H Glucose Calcium ALT Total Protein 5.7 L D Albumin 3.2 L TSH Vancomycin Trough Crossmatch See Detail 06/12/21 06/12/21 06/14/21 05:45 05:45 Unknown WBC RBC Hgb Hct MCV MCH RDW Seg Neuts % (Manual) Lymphocytes % (Manual) Eosinophils % (Manual) Seg Neutrophils # Man Lymphocytes # (Manual) Eosinophils # (Manual) PT 16.1 H INR 1.16 H APTT Heparin Anti-Xa Level 0.26 L ABG pO2 ABG HCO3 ABG O2 Saturation ABG Hemoglobin Oxyhemoglobin Sodium Chloride Carbon Dioxide Creatinine 1.3 H Glucose Calcium ALT Total Protein Albumin TSH Vancomycin Trough Crossmatch 06/14/21 06/14/21 06/15/21 Unknown Unknown 03:56 WBC RBC 3.50 L Hgb 8.2 L Hct 26.3 L MCV 75 L MCH 24 L RDW 27.6 H Seg Neuts % (Manual) Lymphocytes % (Manual) Eosinophils % (Manual) Seg Neutrophils # Man Lymphocytes # (Manual) Eosinophils # (Manual) PT 15.4 H INR APTT Heparin Anti-Xa Level ABG pO2 ABG HCO3 ABG O2 Saturation ABG Hemoglobin Oxyhemoglobin Sodium Chloride Carbon Dioxide Creatinine Glucose 107 H Calcium ALT < 5 L Total Protein 5.9 L Albumin 3.5 L TSH Vancomycin Trough Crossmatch 06/15/21 06/15/21 06/16/21 03:56 10:28 03:15 WBC RBC 3.47 L Hgb 8.3 L Hct 25.8 L MCV 74 L MCH 24 L RDW 27.3 H Seg Neuts % (Manual) 72.0 H Lymphocytes % (Manual) Eosinophils % (Manual) 6.0 H Seg Neutrophils # Man Lymphocytes # (Manual) Eosinophils # (Manual) 0.5 H PT 16.7 H INR 1.21 H APTT Heparin Anti-Xa Level 0.17 L ABG pO2 41.6 L ABG HCO3 28.1 H ABG O2 Saturation 69.2 L ABG Hemoglobin 8.5 L Oxyhemoglobin 67.6 L Sodium Chloride Carbon Dioxide Creatinine Glucose Calcium ALT Total Protein Albumin TSH Vancomycin Trough Crossmatch 06/16/21 06/16/21 06/17/21 03:15 Unknown 00:25 WBC RBC Hgb 8.7 L Hct 28.5 L MCV 75 L MCH 23 L RDW 27.3 H Seg Neuts % (Manual) 72.0 H Lymphocytes % (Manual) Eosinophils % (Manual) Seg Neutrophils # Man Lymphocytes # (Manual) Eosinophils # (Manual) PT INR APTT Heparin Anti-Xa Level < 0.10 L 0.80 H ABG pO2 ABG HCO3 ABG O2 Saturation ABG Hemoglobin Oxyhemoglobin Sodium Chloride Carbon Dioxide Creatinine Glucose Calcium ALT Total Protein Albumin TSH Vancomycin Trough Crossmatch 06/17/21 Unknown WBC RBC Hgb Hct MCV MCH RDW Seg Neuts % (Manual) Lymphocytes % (Manual) Eosinophils % (Manual) Seg Neutrophils # Man Lymphocytes # (Manual) Eosinophils # (Manual) PT 16.1 H INR 1.16 H APTT Heparin Anti-Xa Level 0.21 L ABG pO2 ABG HCO3 ABG O2 Saturation ABG Hemoglobin Oxyhemoglobin Sodium Chloride Carbon Dioxide Creatinine Glucose Calcium ALT Total Protein Albumin TSH Vancomycin Trough Crossmatch Allied health notes reviewed: nursing
[2021-06-17] MEDS ORDERED: WARFARIN 5 MG TAB PO NR (17:00)
[2021-06-17] MEDS ORDERED: WARFARIN 10 MG TAB PO NR (17:00)
[2021-06-18] MEDS: MORPHINE 2 MG/1 ML INJ IV PRN ×3 (00:15→17:45)
[2021-06-18] MEDS: HEPARIN/ 0.45% NACL DRIP 25,000 UNIT/500 ML BAG IV SCH ×2 (00:16→20:04)
[2021-06-18] MEDS: LEVOTHYROXINE 150 MCG TAB PO SCH (06:29)
[2021-06-18] MEDS: GABAPENTIN 100 MG CAP PO SCH ×3 (06:29→22:53)
[2021-06-18 07:25] LABS: Hematocrit 28.8 % (30.3-42.9); Hemoglobin 8.9 gm/dl (10.1-14.3); Mean Corpuscular HGB Conc 31 % (30-34); Mean Corpuscular Volume 75 fl (79-97); Platelet Count 431 K/mm3 (140-440); Red Blood Count 3.82 M/mm3 (3.65-5.03)
[2021-06-18 07:27] LABS: BUN/Creatinine Ratio 10; Blood Urea Nitrogen 9 mg/dL (7-17); Calcium 9.1 mg/dL (8.4-10.2); Hemolysis Index 0
[2021-06-18 07:33] LABS: INR 1.09 (0.87-1.13)
[2021-06-18 07:41] LABS: Red Cell Distribution Width 27.4 % (13.2-15.2)
--- NOTE | 2021-06-18 08:08 | Progress Note ---
Assessment and Plan 40 years old female with past medical history of hypertension, DVT, PE, GERD Hyperthyroidismwas brought to the hospital because of chest pain, retrosternal, sharp, radiating to back, 10/10, worsened by deep breaths, not relieved by anything, associated with SOB. Denies palpitations, diaphoresis. Endorses bilateral leg swelling, pain in her calves. Denies recent travel, immobilization, surgery, hospitalization, Hormonal contraceptive use. In the emergency room initial CT scan of the chest shows acute bilateral pulmonary thromboemboli with evidence of mild right ventricular strain. Scattered pneumonitis noted throughout the both lungs. Admitted the patient to the medical telemetry put the patient on IV heparin . Ordered echocardiogram Past Surgical History: Other (Left arm surgery 02/2017, Right knee, Rt leg. 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, [place] Filter) Social history: History of smoking. Patient sleeping, on 4 litres O2.O2 saturation recorded 93%. Patient running low grade temp. No leukocytosis. Blood pressure 131/71, Pulse 71 , Respirations 18. Patient is on I/V heparin, cefazolin, famotidin. - Patient Problems (1) Pulmonary embolism Current Visit: Yes Status: Acute Plan to address problem: Patient is on I/V Heparin. (2) Acute chest pain Current Visit: No Status: Acute Plan to address problem: Cardiology also consulted. (3) Abnormality of thoracic aorta Current Visit: No Status: Acute Plan to address problem: Patient has history of aortic dissection and TEVAR procedure. (4) Asthma Current Visit: No Status: Acute Plan to address problem: Albuterol inhaler 2 puffs po qid prn for shortness of breath. (5) Cardiomyopathy Current Visit: No Status: Acute Plan to address problem: Management as per cardiology. (6) DVT, bilateral lower limbs Current Visit: No Status: Acute Plan to address problem: Patient is on I/V Heparin. H/O IVC filter. 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 (8) Nicotine dependence unspecified, with withdrawal Current Visit: No Status: Acute Qualifiers: Plan to address problem: Counseled to stop smoking. (9) Obesity hypoventilation syndrome Current Visit: No Status: Acute Plan to address problem: ABGs on room air during day time. Recommend sleep study as out patient. Recommend to loose weight. Recommend not to drive or operate heavy equipment with sleepiness. Avoid alcohol, sedatives and Narcotics. Explained sleep hygiene. (10) Seizure disorder Current Visit: No Status: Acute Plan to address problem: Management as per primary care and neurology. (11) Bipolar disorder Current Visit: No Status: Chronic Qualifiers: Active/Remission status: in remission of unspecified degree Qualified Code(s): F31.70 - Bipolar disorder, currently in remission, most recent episode unspecified Plan to address problem: Management as per primary care and psychiatry. (12) GERD (gastroesophageal reflux disease) Current Visit: No Status: Chronic Qualifiers: Esophagitis presence: without esophagitis Qualified Code(s): K21.9 - Gastro-esophageal reflux disease without esophagitis Plan to address problem: Patient is on Famotidine. (13) Hypothyroidism (acquired) Current Visit: Yes Status: Acute Plan to address problem: Patient has history of thyrotoxicosis. Patient presently is hypothyroid. Patient is on levothyroxine. Subjective Date of service: 06/18/21 Principal diagnosis: Sepsis; Acute P.E.; Chest pain; H/O DVT; Seizures; Hyp othyroidism; Obesity Interval history: 40 years old female obese with past medical history of hypertension, DVT, PE, GERD Hyperthyroidism was brought to the hospital because of chest pain, retrosternal pain, sharp, radiating to back, 10/10, worsened by deep breaths, not relieved by anything, associated with SOB. Denies palpitations, diaphoresis. Endorses bilateral leg swelling, pain in her calves. Denies recent travel, immobilization, surgery, hospitalization, Hormonal contraceptive use. In the emergency room initial CT scan of the chest shows acute bilateral pulmo nary thromboemboli with evidence of mild right ventricular strain. Scattered pneumonitis noted throughout the both lungs. Admitted the patient to the medical telemetry put the patient on IV heparin . Ordered echocardiogram Past Surgical History: Other (Left arm surgery 02/2017, Right knee, Rt leg. 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, [place] Filter) Social history: History of smoking. Patient sleeping, on 4 litres O2.O2 saturation recorded 93%. Patient running low grade temp. No leukocytosis. Blood pressure 131/71, Pulse 71 , Respirations 18. Patient is on I/V heparin, cefazolin, famotidine. Objective Vital Signs - 12hr 06/17/21 06/17/21 06/17/21 22:00 22:39 22:47 Temperature 97.6 F Pulse Rate 65 65 Pulse Rate [ 65 From Monitor] Respiratory 19 Rate Blood Pressure 135/69 135/69 O2 Sat by Pulse 98 95 Oximetry 06/18/21 05:43 Temperature 99.3 F Pulse Rate 71 Pulse Rate [ From Monitor] Respiratory 18 Rate Blood Pressure 131/71 O2 Sat by Pulse 93 Oximetry Constitutional: no acute distress, asleep, other (elderly morbidly obese female without increased respiratory effort at rest) Eyes: non-icteric ENT: oropharynx moist Neck: supple, no lymphadenopathy, no JVD, other (large neck circumference; RIJ CVL) Effort: mildly labored Ascultation: Bilateral: diminished breath sounds Percussion: Bilateral: not dull Cardiovascular: regular rate and rhythm Gastrointestinal: normoactive bowel sounds, soft, non-tender, other (distended but soft) Integumentary: normal Extremities: no cyanosis, no edema, pulses normal, no ischemia or petechiae Neurologic: non-focal exam (grossly), pupils equal and round, CN II-XII normal, motor strength normal and Psychiatric: other (Sleeping at this time.) CBC and BMP: 06/18/21 Unknown 06/18/21 Unknown ABG, PT/INR, D-dimer: ABG ABG pH 7.401 pH Units (7.350-7.450) 06/15/21 10:28 ABG pCO2 46.2 mm Hg 06/15/21 10:28 ABG pO2 41.6 mm Hg (80.0-90.0) L 06/15/21 10:28 ABG O2 Saturation 69.2 % (95.0-99.0) L 06/15/21 10:28 PT/INR, D-dimer PT 15.4 Sec. (12.2-14.9) H 06/18/21 Unknown INR 1.09 (0.87-1.13) 06/18/21 Unknown Abnormal lab findings: Abnormal Labs 05/29/21 05/29/21 05/29/21 23:24 23:24 23:29 WBC RBC Hgb 8.8 L Hct 28.7 L MCV 74 L MCH 23 L RDW 26.4 H Seg Neuts % (Manual) 75.0 H Lymphocytes % (Manual) Eosinophils % (Manual) Seg Neutrophils # Man Lymphocytes # (Manual) Eosinophils # (Manual) PT INR APTT 20.9 L Heparin Anti-Xa Level ABG pO2 ABG HCO3 ABG O2 Saturation ABG Hemoglobin Oxyhemoglobin Sodium Chloride Carbon Dioxide 20 L Creatinine Glucose Calcium ALT Total Protein Albumin 3.5 L TSH Vancomycin Trough Crossmatch 05/30/21 05/30/21 05/30/21 08:25 08:25 13:35 WBC RBC Hgb 8.8 L Hct 27.5 L MCV MCH RDW Seg Neuts % (Manual) Lymphocytes % (Manual) Eosinophils % (Manual) Seg Neutrophils # Man Lymphocytes # (Manual) Eosinophils # (Manual) PT 15.4 H INR APTT 107.1 H* Heparin Anti-Xa Level 0.82 H ABG pO2 ABG HCO3 ABG O2 Saturation ABG Hemoglobin Oxyhemoglobin Sodium Chloride Carbon Dioxide Creatinine Glucose Calcium ALT Total Protein Albumin TSH Vancomycin Trough Crossmatch 05/30/21 05/31/21 05/31/21 20:57 06:40 06:40 WBC 13.0 H RBC Hgb 8.9 L Hct 28.5 L MCV 74 L MCH 23 L RDW 25.7 H Seg Neuts % (Manual) 77.0 H Lymphocytes % (Manual) Eosinophils % (Manual) Seg Neutrophils # Man 10.0 H Lymphocytes # (Manual) Eosinophils # (Manual) PT INR APTT 52.6 H Heparin Anti-Xa Level 0.15 L 0.74 H ABG pO2 ABG HCO3 ABG O2 Saturation ABG Hemoglobin Oxyhemoglobin Sodium Chloride Carbon Dioxide Creatinine Glucose Calcium ALT Total Protein Albumin TSH Vancomycin Trough Crossmatch 06/01/21 06/01/21 06/02/21 09:55 10:27 06:15 WBC RBC Hgb 9.4 L Hct MCV MCH RDW Seg Neuts % (Manual) Lymphocytes % (Manual) Eosinophils % (Manual) Seg Neutrophils # Man Lymphocytes # (Manual) Eosinophils # (Manual) PT INR APTT Heparin Anti-Xa Level 0.13 L 0.25 L ABG pO2 ABG HCO3 ABG O2 Saturation ABG Hemoglobin Oxyhemoglobin Sodium Chloride Carbon Dioxide Creatinine Glucose Calcium ALT Total Protein Albumin TSH Vancomycin Trough Crossmatch 06/02/21 06/03/21 06/04/21 23:30 Unknown 07:39 WBC RBC Hgb 8.5 L Hct 28.0 L MCV MCH RDW Seg Neuts % (Manual) Lymphocytes % (Manual) Eosinophils % (Manual) Seg Neutrophils # Man Lymphocytes # (Manual) Eosinophils # (Manual) PT 15.0 H INR APTT Heparin Anti-Xa Level 0.19 L ABG pO2 ABG HCO3 ABG O2 Saturation ABG Hemoglobin Oxyhemoglobin Sodium Chloride Carbon Dioxide Creatinine Glucose Calcium ALT Total Protein Albumin TSH Vancomycin Trough Crossmatch 06/05/21 06/05/21 06/05/21 04:07 04:07 10:40 WBC RBC Hgb 8.4 L Hct 27.3 L MCV MCH RDW Seg Neuts % (Manual) Lymphocytes % (Manual) Eosinophils % (Manual) Seg Neutrophils # Man Lymphocytes # (Manual) Eosinophils # (Manual) PT 17.7 H INR 1.30 H APTT Heparin Anti-Xa Level ABG pO2 ABG HCO3 ABG O2 Saturation ABG Hemoglobin Oxyhemoglobin Sodium Chloride Carbon Dioxide Creatinine Glucose Calcium ALT Total Protein Albumin TSH 0.034 L Vancomycin Trough Crossmatch 06/05/21 06/05/21 06/06/21 10:40 11:01 04:00 WBC 14.0 H RBC 3.37 L Hgb 7.5 L Hct 24.8 L MCV 74 L MCH 22 L RDW 25.0 H Seg Neuts % (Manual) 94.0 H Lymphocytes % (Manual) 3.0 L Eosinophils % (Manual) Seg Neutrophils # Man 13.2 H Lymphocytes # (Manual) 0.4 L Eosinophils # (Manual) PT 17.4 H INR 1.27 H APTT Heparin Anti-Xa Level ABG pO2 ABG HCO3 ABG O2 Saturation ABG Hemoglobin Oxyhemoglobin Sodium 135 L Chloride Carbon Dioxide 20 L Creatinine Glucose Calcium 7.8 L ALT Total Protein Albumin TSH Vancomycin Trough Crossmatch 06/07/21 06/07/21 06/08/21 12:55 12:55 04:52 WBC RBC Hgb 7.1 L Hct 23.6 L MCV MCH RDW Seg Neuts % (Manual) Lymphocytes % (Manual) Eosinophils % (Manual) Seg Neutrophils # Man Lymphocytes # (Manual) Eosinophils # (Manual) PT 19.7 H INR 1.48 H APTT Heparin Anti-Xa Level ABG pO2 ABG HCO3 ABG O2 Saturation ABG Hemoglobin Oxyhemoglobin Sodium Chloride 116.6 H Carbon Dioxide 18 L Creatinine Glucose Calcium 7.4 L ALT Total Protein 4.7 L Albumin 2.7 L TSH Vancomycin Trough Crossmatch 06/08/21 06/09/21 06/09/21 04:52 06:46 06:46 WBC RBC 3.09 L Hgb 6.9 L Hct 22.4 L MCV 72 L MCH 22 L RDW 25.0 H Seg Neuts % (Manual) Lymphocytes % (Manual) Eosinophils % (Manual) Seg Neutrophils # Man Lymphocytes # (Manual) Eosinophils # (Manual) PT INR APTT Heparin Anti-Xa Level < 0.10 L ABG pO2 ABG HCO3 ABG O2 Saturation ABG Hemoglobin Oxyhemoglobin Sodium Chloride Carbon Dioxide Creatinine Glucose Calcium ALT Total Protein Albumin TSH Vancomycin Trough 25.1 H Crossmatch 06/09/21 06/10/21 06/10/21 Unknown 08:31 08:31 WBC RBC 3.17 L Hgb 7.1 L Hct 22.9 L MCV 72 L MCH 22 L RDW 25.5 H Seg Neuts % (Manual) 71.0 H Lymphocytes % (Manual) Eosinophils % (Manual) Seg Neutrophils # Man Lymphocytes # (Manual) 1.0 L Eosinophils # (Manual) PT 20.4 H 17.6 H INR 1.54 H 1.29 H APTT Heparin Anti-Xa Level ABG pO2 ABG HCO3 ABG O2 Saturation ABG Hemoglobin Oxyhemoglobin Sodium Chloride Carbon Dioxide Creatinine Glucose Calcium ALT Total Protein Albumin TSH Vancomycin Trough Crossmatch 06/10/21 06/10/21 06/11/21 08:31 08:33 08:25 WBC RBC Hgb Hct MCV MCH RDW Seg Neuts % (Manual) Lymphocytes % (Manual) Eosinophils % (Manual) Seg Neutrophils # Man Lymphocytes # (Manual) Eosinophils # (Manual) PT 16.3 H INR 1.17 H APTT Heparin Anti-Xa Level ABG pO2 ABG HCO3 ABG O2 Saturation ABG Hemoglobin Oxyhemoglobin Sodium Chloride 111.3 H Carbon Dioxide 21 L Creatinine 1.4 H Glucose Calcium ALT Total Protein 5.7 L D Albumin 3.2 L TSH Vancomycin Trough Crossmatch See Detail 06/12/21 06/12/21 06/14/21 05:45 05:45 Unknown WBC RBC Hgb Hct MCV MCH RDW Seg Neuts % (Manual) Lymphocytes % (Manual) Eosinophils % (Manual) Seg Neutrophils # Man Lymphocytes # (Manual) Eosinophils # (Manual) PT 16.1 H INR 1.16 H APTT Heparin Anti-Xa Level 0.26 L ABG pO2 ABG HCO3 ABG O2 Saturation ABG Hemoglobin Oxyhemoglobin Sodium Chloride Carbon Dioxide Creatinine 1.3 H Glucose Calcium ALT Total Protein Albumin TSH Vancomycin Trough Crossmatch 06/14/21 06/14/21 06/15/21 Unknown Unknown 03:56 WBC RBC 3.50 L Hgb 8.2 L Hct 26.3 L MCV 75 L MCH 24 L RDW 27.6 H Seg Neuts % (Manual) Lymphocytes % (Manual) Eosinophils % (Manual) Seg Neutrophils # Man Lymphocytes # (Manual) Eosinophils # (Manual) PT 15.4 H INR APTT Heparin Anti-Xa Level ABG pO2 ABG HCO3 ABG O2 Saturation ABG Hemoglobin Oxyhemoglobin Sodium Chloride Carbon Dioxide Creatinine Glucose 107 H Calcium ALT < 5 L Total Protein 5.9 L Albumin 3.5 L TSH Vancomycin Trough Crossmatch 06/15/21 06/15/21 06/16/21 03:56 10:28 03:15 WBC RBC 3.47 L Hgb 8.3 L Hct 25.8 L MCV 74 L MCH 24 L RDW 27.3 H Seg Neuts % (Manual) 72.0 H Lymphocytes % (Manual) Eosinophils % (Manual) 6.0 H Seg Neutrophils # Man Lymphocytes # (Manual) Eosinophils # (Manual) 0.5 H PT 16.7 H INR 1.21 H APTT Heparin Anti-Xa Level 0.17 L ABG pO2 41.6 L ABG HCO3 28.1 H ABG O2 Saturation 69.2 L ABG Hemoglobin 8.5 L Oxyhemoglobin 67.6 L Sodium Chloride Carbon Dioxide Creatinine Glucose Calcium ALT Total Protein Albumin TSH Vancomycin Trough Crossmatch 06/16/21 06/16/21 06/17/21 03:15 Unknown 00:25 WBC RBC Hgb 8.7 L Hct 28.5 L MCV 75 L MCH 23 L RDW 27.3 H Seg Neuts % (Manual) 72.0 H Lymphocytes % (Manual) Eosinophils % (Manual) Seg Neutrophils # Man Lymphocytes # (Manual) Eosinophils # (Manual) PT INR APTT Heparin Anti-Xa Level < 0.10 L 0.80 H ABG pO2 ABG HCO3 ABG O2 Saturation ABG Hemoglobin Oxyhemoglobin Sodium Chloride Carbon Dioxide Creatinine Glucose Calcium ALT Total Protein Albumin TSH Vancomycin Trough Crossmatch 06/17/21 06/18/21 06/18/21 Unknown Unknown Unknown WBC RBC Hgb 8.9 L Hct 28.8 L MCV 75 L MCH 23 L RDW 27.4 H Seg Neuts % (Manual) Lymphocytes % (Manual) Eosinophils % (Manual) Seg Neutrophils # Man Lymphocytes # (Manual) Eosinophils # (Manual) PT 16.1 H 15.4 H INR 1.16 H APTT Heparin Anti-Xa Level 0.21 L ABG pO2 ABG HCO3 ABG O2 Saturation ABG Hemoglobin Oxyhemoglobin Sodium Chloride Carbon Dioxide Creatinine Glucose Calcium ALT Total Protein Albumin TSH Vancomycin Trough Crossmatch 06/18/21 Unknown WBC RBC Hgb Hct MCV MCH RDW Seg Neuts % (Manual) Lymphocytes % (Manual) Eosinophils % (Manual) Seg Neutrophils # Man Lymphocytes # (Manual) Eosinophils # (Manual) PT INR APTT Heparin Anti-Xa Level ABG pO2 ABG HCO3 ABG O2 Saturation ABG Hemoglobin Oxyhemoglobin Sodium 134 L Chloride 96.5 L Carbon Dioxide Creatinine Glucose Calcium ALT Total Protein Albumin TSH Vancomycin Trough Crossmatch Allied health notes reviewed: nursing
[2021-06-18 08:23] LABS: Anisocytosis 3+; Band Neutrophils # (Manual) 0.1 K/mm3; Basophils % (Manual) 0 % (0.0-1.8); Hypochromasia 2+; Platelet Estimate Consistent w Auto; Total Cells Counted 100
[2021-06-18] MEDS: ALPRAZolam 0.5 MG TAB PO SCH ×2 (09:43→22:56)
[2021-06-18] MEDS: traMADol 50 MG TAB PO SCH ×2 (09:43→22:57)
[2021-06-18] MEDS: QUEtiapine 100 MG TAB PO SCH (09:44)
[2021-06-18] MEDS: FAMOTIDINE 20 MG TAB PO SCH ×2 (09:45→22:56)
[2021-06-18] MEDS: levETIRAcetam 500 MG TAB PO SCH ×2 (09:45→22:57)
[2021-06-18] MEDS: PROPRANOLOL 40 MG TAB PO SCH ×2 (09:46→23:03)
[2021-06-18] MEDS: ASPIRIN EC 81 MG TAB PO SCH (09:46)
[2021-06-18] MEDS: amLODIPine 10 MG TAB PO SCH (09:46)
--- NOTE | 2021-06-18 12:50 | Progress Note ---
Assessment and Plan Assessment and plan: 40 years old female with past medical history of hypertension, PE x2, (R lung 05/2016, L lung 01/2017--on coumadin), R leg DVT 03/2017, Graves Disease, heart murmur, aortic dissection, PERICARDITIS, thyroid storm, and GERD admitted for acute bilateral pulmonary thromboemboli with evidence of mild right ventricular strain on heparin gtt and warfarin. Assessment and Plan: Sepsis, MSSA bacteremia -Etiology unclear, line infection vs endocarditis, infected TEVAR graft. -06/04 bcx: 3/ bottles MSSA - 06/07 bcx: NGTD - urine culture: NGTD -TTE negative for valvular vegetations -HANK negative for endocarditis - ID following -Continue Ancef -DAVID PICC line noted, remove RIJ CVC Hypotension (resolved) -Patient with low blood pressure at night -IVF started -avoid antihypotensives -labetalol currently held Acute pulmonary embolism History of DVT on warfarin Troponin unremarkable, chest x-ray unremarkable, bilateral lower extremity venous Dopplers unremarkable for acute DVT CT angio chest revealing acute bilateral pulmonary emboli with evidence of right heart strain Home medication of warfarin 7.5 mg daily; however, INR 1.03. Patient endorses being compliant with her anticoagulation. Continue heparin drip and bridged warfarin daily until therapeutic (goal 2.53.5). TTE without evidence of right heart strain Patient needs to be taking BOTH warfarin and heparin until INR goal of 2.5 achieved. - Remains subtherapeutic despite Heparin and Warfarin - Hematology consulted for possible warfarin resistance history of mechanical heart valve - goal inr 2.5. Seizure disorder Anxiety Continue home medications: Keppra 500 mg twice daily, Quetiapine 100 mg every morning and 300 mg nightly, alprazolam 0.5 mg 3 times daily History of aortic dissection s/p tevar. Hypothyroidism -resume home levothyroxine microcytic anemia -stable Transfuse if hemoglobin less than 7 or patient become symptomatic Morbid obesity Weight loss counseling Exercise counseling - BMI 39.1 - Counseled patient on the importance of weight loss, incorporating exercise, and dietary changes (lean meats, fresh fruits and vegetables, and water intake). Patient expresses understanding. Hospital Course: 06/05: Is unclear to me why the patient was transferred to the [facility] as I do not have any clear documentation to the results but in effect I was told by the nurse that the patient had pulled out his for her femoral line and did not have an access. Patient appears to have been having fever for a few days no known etiology we will proceed with a sepsis work-up although closely reviewing her case shows a history of thyroid storm in the past and she has not been receiving her thyroid medication while she does not have confusion at this time she does have tachycardia and tachypnea. We will give her a dose of IV levothyroxine today and start her daily dose of levothyroxine a.m. She has been on her propranolol although her home dose appears confusing as she gets 40 mg once daily and also 20 mg twice a day will discuss with her to clarify this and also with her pharmacy. She did have a right IJ triple-lumen catheter placed yesterday I discussed with her in the setting of well-documented by the nurse that she takes Midol at home which contains acetaminophen she is agreeable to trial acetaminophen as she wants to come off the cooling blanket. I also consulted ID and ordered a urinalysis with urine culture and some fluid support. I reviewed her CT scan and echocardiogram while the CT mentions the pulmonary embolism with mild right heart strain the echo shows a RVSP of 32 mmHg. I will proceed with consulting pulmonary in her case she would definitely need a passenger locomotive engineer outpatient. She continues on heparin drip while awaiting for therapeutic INR. In the meantime continue with antibiotic Right internal jugular vein triple-lumen catheter placement under ultrasound guidance 06/06: Patient seen and examined, showing some improvement, will follow cultures result, Continue abx, clinical stable, ID input, close eye on Hemoglobin. WBC mildly trended up. will transfer [facility] to [facility]. 06/07: Continue supportive care, awaiting Cultures for ID and sensitivity in the meantime continue antibiotic. Am LABS. Patient continues on heparin drip until INR is therapeutic. I encouraged her to ambulate in her room and also set up on the chair. Cultures for COVID was negative. We will obtain PT OT evaluation. In short summary patient is a 40-year-old female with hypertension pulmonary embolism lower extremity DVT in the past on Coumadin who presented with shortness of breath diagnosed with pulmonary embolism admitted intermittently sepsis doubt septic emboli currently on antibiotics. Restarted on her thyroid medication with no evidence of thyroid storm. 06/08: resting comfortably on encounter. Afebrile today. Vital signs improved. 94% on 3L/min NC. Pain medication appears to be excessive as patient is heavily sedated, will scale back pain medication. D/w cardiology Dr Canseco regarding concern for endocarditis and possible infected TEVAR graft as potential source of infection. Consult placed for HANK. Will continue to follow culture data. Continue IV vancomycin per ID direction. INR remains subtherapeutic for treatment of DVT/PE but increased to 1.48, will continue warfarin at current do jerald and heparin gtt at this time. 06/09: continue therapy for MSSA bacteremia. Awaiting HANK completion. INR 1.54, warfarin 12.5 mg dose given today. Anemic today 6.9, ordered 1 unit prbc. Patient denies any rectal bleeding, bleeding from lines, hematemesis. Suspect anemia of chronic disease and possibly iatrogenic induced from multiple blood draw/line placement attempts. Lower suspicion for occult hematoma but will order CTAP. 06/10: Abx orders noted by ID. INR remains subtherapetuic, did not receive warfarin dose for some apparent reason. Pharmacy will give 15 mg dose today. Occult bleed r/o on ctap. No rectal bleeding reported. Will transfuse 1 unit prbc. Restart heparin gtt. Will follow up results of HANK from today. 06/11: HANK negative for endocarditis. INR subtherapuetic. unfortunately patient has missed last two day of warfarin dosing and inr reflects this. Patient could also be warfarin resistant. Patient needs to be receiving BOTH warfarin and heparin gtt until INR goal of 2.5 achieved. D/w pharmacy, will continue with 15 mg dosing at this time. Continue Iv abx. Discharge plan is for early next week. 06/12: Hypertensive this AM, added amlodipine for better BP control. INR 1.16. Continue heparin gtt while transitioning to warfarin. Plan for discharge early next week. CM working on OP IV abx arrangement. 06/13: Continue heparin gtt and warfarin. INR remains subtherapeutic. 06/14: Patient remains subtherapeutic despite heparin gtt and Warfarin. Will consult hematology for possible warfarin resistance and for further recs. Continue heparin gtt and warfarin for now. Patient remains on IV Abx, ancef per ID, DAVID PICC line noted remove RIJ CVC. 06/15: Continue heparin drip and warfarin until INR at goal of 2.5. . Patient remains on IV Abx, ancef per ID, DAVID PICC line noted remove RIJ CVC. 06/16: Continue heparin drip and warfarin until INR at goal of 2.5. . Patient remains on IV Abx, ancef per ID, DAVID PICC line noted remove RIJ CVC. Continue Keppra as needed for AEDs. Continue thyroid replacement therapy. 06/17: Continue heparin drip and warfarin until INR at goal of 2.5. . Patient remains on IV Abx, ancef per ID, DAVID PICC line noted remove RIJ CVC. Continue Keppra as needed for AEDs. 06/18: Continue heparin drip and warfarin until INR at goal of 2.5. . Patient remains on IV Abx, ancef per ID, DAVID PICC line noted remove RIJ CVC. Continue Keppra as needed for AEDs. INR actually decreased this morning. Pharmacy to do se Coumadin per protocol History Interval history: No new issues overnight Hospitalist Physical - Constitutional Vitals: Temp Pulse Resp BP Pulse Ox 99.3 F 71 20 131/71 93 06/18/21 05:43 06/18/21 05:43 06/18/21 09:43 06/18/21 05:43 06/18/21 05:43 General appearance: Present: no acute distress, well-nourished, obese - EENT Eyes: Present: PERRL, EOM intact ENT: hearing intact, clear oral mucosa, dentition normal - Neck Neck: Present: supple, normal ROM - Respiratory Respiratory effort: normal Respiratory: bilateral: CTA - Cardiovascular Rhythm: regular Heart Sounds: Present: S1 & S2. Absent: gallop, rub - Extremities Extremities: no ischemia, No edema, Full ROM - Abdominal General gastrointestinal: soft, non-tender, non-distended, normal bowel sounds - Integumentary Integumentary: Present: clear, warm, dry - Neurologic Neurologic: CNII-XII intact, moves all extremities HEART Score - HEART Score Troponin: Troponin T < 0.010 ng/mL (0.00-0.029) 05/30/21 04:46 Results - Labs CBC & Chem 7: 06/18/21 Unknown 06/18/21 Unknown Labs: Laboratory Last Values WBC 6.2 K/mm3 (4.5-11.0) 06/18/21 Unknown RBC 3.82 M/mm3 (3.65-5.03) 06/18/21 Unknown Hgb 8.9 gm/dl (10.1-14.3) L 06/18/21 Unknown Hct 28.8 % (30.3-42.9) L 06/18/21 Unknown MCV 75 fl (79-97) L 06/18/21 Unknown MCH 23 pg (28-32) L 06/18/21 Unknown MCHC 31 % (30-34) 06/18/21 Unknown RDW 27.4 % (13.2-15.2) H 06/18/21 Unknown Plt Count 431 K/mm3 (140-440) 06/18/21 Unknown Add Manual Diff Complete 06/18/21 Unknown Total Counted 100 06/18/21 Unknown Seg Neuts % (Manual) 72.0 % (40.0-70.0) H 06/18/21 Unknown Band Neutrophils % 2.0 % 06/18/21 Unknown Lymphocytes % (Manual) 18.0 % (13.4-35.0) 06/18/21 Unknown Reactive Lymphs % (Man) 0 % 06/18/21 Unknown Monocytes % (Manual) 2.0 % (0.0-7.3) 06/18/21 Unknown Eosinophils % (Manual) 6.0 % (0.0-4.3) H 06/18/21 Unknown Basophils % (Manual) 0 % (0.0-1.8) 06/18/21 Unknown Metamyelocytes % 0 % 06/18/21 Unknown Myelocytes % 0 % 06/18/21 Unknown Promyelocytes % 0 % 06/18/21 Unknown Blast Cells % 0 % 06/18/21 Unknown Nucleated RBC % Not Reportable 06/18/21 Unknown Seg Neutrophils # Man 4.5 K/mm3 (1.8-7.7) 06/18/21 Unknown Band Neutrophils # 0.1 K/mm3 06/18/21 Unknown Lymphocytes # (Manual) 1.1 K/mm3 (1.2-5.4) L 06/18/21 Unknown Abs React Lymphs (Man) 0.0 K/mm3 06/18/21 Unknown Monocytes # (Manual) 0.1 K/mm3 (0.0-0.8) 06/18/21 Unknown Eosinophils # (Manual) 0.4 K/mm3 (0.0-0.4) 06/18/21 Unknown Basophils # (Manual) 0.0 K/mm3 (0.0-0.1) 06/18/21 Unknown Metamyelocytes # 0.0 K/mm3 06/18/21 Unknown Myelocytes # 0.0 K/mm3 06/18/21 Unknown Promyelocytes # 0.0 K/mm3 06/18/21 Unknown Blast Cells # 0.0 K/mm3 06/18/21 Unknown WBC Morphology Not Reportable 06/18/21 Unknown Hypersegmented Neuts Not Reportable 06/18/21 Unknown Hyposegmented Neuts Not Reportable 06/18/21 Unknown Hypogranular Neuts Not Reportable 06/18/21 Unknown Smudge Cells Not Reportable 06/18/21 Unknown Toxic Granulation Not Reportable 06/18/21 Unknown Toxic Vacuolation Not Reportable 06/18/21 Unknown Dohle Bodies Not Reportable 06/18/21 Unknown Pelger-Huet Anomaly Not Reportable 06/18/21 Unknown Jaime Rods Not Reportable 06/18/21 Unknown Platelet Estimate Consistent w auto 06/18/21 Unknown Clumped Platelets Not Reportable 06/18/21 Unknown Plt Clumps, EDTA Not Reportable 06/18/21 Unknown Large Platelets Not Reportable 06/18/21 Unknown Giant Platelets Not Reportable 06/18/21 Unknown Platelet Satelliting Not Reportable 06/18/21 Unknown Plt Morphology Comment Not Reportable 06/18/21 Unknown RBC Morphology Not Reportable 06/18/21 Unknown Dimorphic RBCs Not Reportable 06/18/21 Unknown Polychromasia Not Reportable 06/18/21 Unknown Hypochromasia 2+ 06/18/21 Unknown Poikilocytosis Not Reportable 06/18/21 Unknown Anisocytosis 3+ 06/18/21 Unknown Microcytosis Not Reportable 06/18/21 Unknown Macrocytosis Not Reportable 06/18/21 Unknown Spherocytes Not Reportable 06/18/21 Unknown Pappenheimer Bodies Not Reportable 06/18/21 Unknown Sickle Cells Not Reportable 06/18/21 Unknown Target Cells Not Reportable 06/18/21 Unknown Tear Drop Cells Not Reportable 06/18/21 Unknown Ovalocytes Not Reportable 06/18/21 Unknown Helmet Cells Not Reportable 06/18/21 Unknown Graves-[place] Bodies Not Reportable 06/18/21 Unknown [place] Rings Not Reportable 06/18/21 Unknown Tricia Cells Not Reportable 06/18/21 Unknown Bite Cells Not Reportable 06/18/21 Unknown Crenated Cell Not Reportable 06/18/21 Unknown Elliptocytes Not Reportable 06/18/21 Unknown Acanthocytes (Spur) Not Reportable 06/18/21 Unknown Rouleaux Not Reportable 06/18/21 Unknown Hemoglobin C Crystals Not Reportable 06/18/21 Unknown Schistocytes Not Reportable 06/18/21 Unknown Malaria parasites Not Reportable 06/18/21 Unknown Koffi Bodies Not Reportable 06/18/21 Unknown Hem Pathologist Commnt No 06/18/21 Unknown PT 15.4 Sec. (12.2-14.9) H 06/18/21 Unknown INR 1.09 (0.87-1.13) 06/18/21 Unknown APTT 52.6 Sec. (24.2-36.6) H 05/31/21 06:40 Fibrinogen 420 mg/dl (211-480) 06/16/21 03:15 Heparin Anti-Xa Level 0.21 U.I./ml (0.3-0.7) L 06/17/21 Unknown ABG pH 7.401 pH Units (7.350-7.450) 06/15/21 10:28 ABG pCO2 46.2 mm Hg 06/15/21 10:28 ABG pO2 41.6 mm Hg (80.0-90.0) L 06/15/21 10:28 ABG HCO3 28.1 mmol/L (20.0-26.0) H 06/15/21 10:28 ABG O2 Saturation 69.2 % (95.0-99.0) L 06/15/21 10:28 ABG O2 Content 8.1 (0.0-44) 06/15/21 10:28 ABG Base Excess 2.9 mmol/L (-2.0-3.0) 06/15/21 10:28 ABG Hemoglobin 8.5 gm/dl (12.0-16.0) L 06/15/21 10:28 ABG Carboxyhemoglobin 1.7 % (0.0-5.0) 06/15/21 10:28 ABG Methemoglobin 0.7 % (0.0-1.5) 06/15/21 10:28 Oxyhemoglobin 67.6 % (95.0-99.0) L 06/15/21 10:28 FiO2 21 % 06/15/21 10:28 Sodium 134 mmol/L (137-145) L 06/18/21 Unknown Potassium 4.0 mmol/L (3.6-5.0) 06/18/21 Unknown Chloride 96.5 mmol/L (98-107) L 06/18/21 Unknown Carbon Dioxide 29 mmol/L (22-30) 06/18/21 Unknown Anion Gap 13 mmol/L 06/18/21 Unknown BUN 9 mg/dL (7-17) 06/18/21 Unknown Creatinine 0.9 mg/dL (0.6-1.2) 06/18/21 Unknown Estimated GFR > 60 ml/min 06/18/21 Unknown BUN/Creatinine Ratio 10 % 06/18/21 Unknown Glucose 91 mg/dL (65-100) 06/18/21 Unknown Lactic Acid 0.70 mmol/L (0.7-2.0) 06/05/21 10:40 Calcium 9.1 mg/dL (8.4-10.2) 06/18/21 Unknown Total Bilirubin < 0.20 mg/dL (0.1-1.2) 06/14/21 Unknown AST 8 units/L (5-40) 06/14/21 Unknown ALT < 5 units/L (7-56) L 06/14/21 Unknown Alkaline Phosphatase 73 units/L (35-129) 06/14/21 Unknown Troponin T < 0.010 ng/mL (0.00-0.029) 05/30/21 04:46 Total Protein 5.9 g/dL (6.3-8.2) L 06/14/21 Unknown Albumin 3.5 g/dL (3.9-5) L 06/14/21 Unknown Albumin/Globulin Ratio 1.5 % 06/14/21 Unknown Lipase 31 units/L (13-60) 05/30/21 04:41 TSH 0.034 mlU/mL (0.270-4.200) L 06/05/21 10:40 Free T4 1.29 ng/dL (0.76-1.46) 06/05/21 10:40 HCG, Qual Negative (Negative) 05/29/21 23:24 Urine Color Yellow (Yellow) 06/05/21 12:20 Urine Turbidity Slightly-cloudy (Clear) 06/05/21 12:20 Urine pH 6.0 (5.0-7.0) 06/05/21 12:20 Ur Specific [place] 1.004 (1.003-1.030) 06/05/21 12:20 Urine Protein <15 mg/dl mg/dL (Negative) 06/05/21 12:20 Urine Glucose (UA) Neg mg/dL (Negative) 06/05/21 12:20 Urine Ketones Neg mg/dL (Negative) 06/05/21 12:20 Urine Blood Mod (Negative) 06/05/21 12:20 Urine Nitrite Neg (Negative) 06/05/21 12:20 Urine Bilirubin Neg (Negative) 06/05/21 12:20 Urine Urobilinogen < 2.0 mg/dL (<2.0) 06/05/21 12:20 Ur Leukocyte Esterase Neg (Negative) 06/05/21 12:20 Urine WBC (Auto) 2.0 /HPF (0.0-6.0) 06/05/21 12:20 Urine RBC (Auto) 37.0 /HPF (0.0-6.0) 06/05/21 12:20 U Epithel Cells (Auto) 3.0 /HPF (0-13.0) 06/05/21 12:20 Urine Bacteria (Auto) 4+ /HPF (Negative) 06/05/21 12:20 Urine Mucus Few /HPF 06/05/21 12:20 Vancomycin Trough 25.1 ug/mL (5.0-20.0) H 06/08/21 04:52 LAURA Screen Negative (Negative) 06/05/21 15:10 Cardiolipid IgG Ab <2.0 GPL-U/mL (<20.0) 06/15/21 06:47 Cardiolipid IgA Ab <2.0 APL-U/mL (<20.0) 06/15/21 06:47 Cardiolipid IgM Ab <2.0 MPL-U/mL (<20.0) 06/15/21 06:47 Coronavirus (PCR) Negative (Negative) 06/05/21 07:26 Influenza A (Rapid) Negative (Negative) 06/05/21 14:06 Influenza A (RT-PCR) Negative (Negative) 06/05/21 14:06 Influenza B (Rapid) Negative (Negative) 06/05/21 14:06 Influenza B (RT-PCR) Negative (Negative) 06/05/21 14:06 Blood Type B POSITIVE 06/10/21 08:33 Antibody Screen Negative 06/10/21 08:33 Crossmatch See Detail 06/10/21 08:33 Rojas/IV: Voiding Method Bedside Commode Active Medications - Current Medications Current Medications: Generic Name Dose Route Start Last Admin Trade Name Freq PRN Reason Stop Dose Admin Albuterol 2.5 mg 05/30/21 05:14 Albuterol 2.5 Mg/3 Ml Nebu IH Q3HRT PRN Shortness Of Breath Alprazolam 0.5 mg 06/09/21 08:00 06/18/21 09:43 Alprazolam 0.5 Mg Tab PO 0.5 mg BID ELLIOTT Administration Amlodipine Besylate 10 mg 06/12/21 10:00 06/18/21 09:46 Amlodipine 10 Mg Tab PO 10 mg QDAY ELLIOTT Administration Aspirin 81 mg 05/30/21 10:00 06/18/21 09:46 Aspirin Ec 81 Mg Tab PO 81 mg QDAY ELLIOTT Administration Famotidine 20 mg 05/30/21 10:00 06/18/21 09:45 Famotidine 20 Mg Tab PO 20 mg BID ELLIOTT Administration Gabapentin 100 mg 06/10/21 22:00 06/18/21 06:29 Gabapentin 100 Mg Cap PO 100 mg Q8HR ELLIOTT Administration Heparin Sodium (Porcine) 4,500 unit 06/03/21 09:46 Heparin 10,000 Units/10 Ml Vial 40 unit/kg (4500 unit) IV Q6H PRN Anti-Xa Assay < 0.1 units/ml Heparin Sodium/Sodium Chloride 25,000 unit in 500 mls @ 30 mls/hr 06/03/21 10:00 06/18/21 00:16 Heparin/ 0.45% Nacl-25,000 Unit/500 Ml IV 2,400 units/hr TITR ELLIOTT 48 mls/hr Administration Protocol 1,500 UNITS/HR Cefazolin Sodium 2 gm/ Sodium 100 mls @ 200 mls/hr 06/08/21 12:00 06/18/21 06:29 Chloride IV 07/19/21 18:29 200 mls/hr Q6HR ELLIOTT Administration Protocol Levetiracetam 500 mg 05/30/21 10:00 06/18/21 09:45 Levetiracetam 500 Mg Tab PO 500 mg BID ELLIOTT Administration Levothyroxine Sodium 150 mcg 06/06/21 06:00 06/18/21 06:29 Levothyroxine 150 Mcg Tab PO 150 mcg DAILY@0600 ELLIOTT Administration Morphine Sulfate 2 mg 06/03/21 09:30 06/18/21 08:36 Morphine 2 Mg/1 Ml Inj IV 2 mg Q8H PRN Administration Pain, Moderate (4-6) Ondansetron HCl 4 mg 06/05/21 08:00 06/17/21 00:14 Ondansetron 4 Mg/2 Ml Inj IV 4 mg Q4H PRN Administration Nausea And Vomiting Propranolol HCl 40 mg 05/30/21 10:00 06/18/21 09:46 Propranolol 40 Mg Tab PO 40 mg BID ELLIOTT Administration Quetiapine Fumarate 100 mg 05/30/21 10:00 06/18/21 09:44 Quetiapine 100 Mg Tab PO 100 mg QAM ELLIOTT Administration Sodium Chloride 10 ml 05/30/21 10:00 06/18/21 09:44 Sodium Chloride 0.9% 10 Ml Flush Syringe IV 10 ml BID ELLIOTT Administration Sodium Chloride 10 ml 05/30/21 05:14 Sodium Chloride 0.9% 10 Ml Flush Syringe IV PRN PRN LINE FLUSH Tramadol HCl 100 mg 06/09/21 08:00 06/18/21 09:43 Tramadol 50 Mg Tab PO 100 mg BID ELLIOTT Administration Warfarin Sodium 20 mg 06/17/21 17:00 06/17/21 17:00 Warfarin 10 Mg Tab PO 06/18/21 16:59 20 mg ONCE@1700 NR Administration Warfarin Sodium 5 mg 06/17/21 17:00 06/17/21 16:00 Warfarin 5 Mg Tab PO 06/18/21 16:59 5 mg ONCE@1700 NR Administration Nutrition/Malnutrition Assess - Dietary Evaluation Nutrition/Malnutrition Findings: Nutrition Notes Start: 05/31/21 12:39 Freq: Status: Active Protocol: Document 06/14/21 07:31 KING (Rec: 06/14/21 07:42 KING [email or web address]) Nutrition Notes Initial or Follow up Reassessment Current Diagnosis Sepsis,Hypertension Other Pertinent Diagnosis Pulmonary embolism, Chest pain , Seizure D/O, Anxiety, Hypothyroidism Current Diet Renal Labs/Tests No current available Pertinent Medications Reviewed Height 5 ft 7 in Weight 111 kg [place] Body Weight (kg) 61.36 BMI 38.3 Weight Status Obese Subjective/Other Information Pt has consumed 50% of meals since last assessment. Not sure why pt prescribed renal diet on 06/11; no mention of renal dysfunction in MD notes. Cr lab increased to 1.4 on but is trending downward. Percent of energy/protein needs met: 58% energy 56% pro Burn Absent Trauma Absent Current % PO Fair (50-74%) #1 Nutrition Diagnosis Inadequate protein-energy intake Etiology medical dx, anxiety As Evidenced by Signs and Symptoms PO intake meeting <75% estimated energy and pro needs Is patient on ventilator? No Is Patient Ambulatory and/or Out of Bed Yes REE-([place]-St. Jeor-ambulatory/OOB) [ 2356.419 [id number]] Kcal/Kg value to use for calculation 16 Approximate Energy Requirements Using 1776 kcal/Kg Calculation Used for Recommendations Kcal/kg Additional Notes Pro needs 0.8-1g/kg adjBW: 69- 86g/day Fluid needs 1ml/kcal Nutrition Intervention Change Diet Order: Continue current diet order Add Supplement/Snack (indicate name/kcal Ensure High Protein once daily /protein ) Provides kCal: 160 Provides Protein (gm) 16 Goal #1 PO intake of meals plus ONS to meet at least 75% energy and pro needs Follow-Up By: 06/21/21 Additional Comments F/U: intakes (meals/ONS), renal function and need for renal diet, wt
[2021-06-18] MEDS ORDERED: WARFARIN 10 MG TAB PO NR (17:00)
[2021-06-18] MEDS ORDERED: WARFARIN 5 MG TAB PO NR (17:00)
[2021-06-19] MEDS: MORPHINE 2 MG/1 ML INJ IV PRN ×3 (02:20→20:07)
[2021-06-19 04:56] LABS: INR 1.05 (0.87-1.13)
[2021-06-19] MEDS: LEVOTHYROXINE 150 MCG TAB PO SCH (06:31)
[2021-06-19] MEDS: GABAPENTIN 100 MG CAP PO SCH ×3 (06:31→22:00)
[2021-06-19] MEDS: traMADol 50 MG TAB PO SCH ×2 (10:33→22:32)
[2021-06-19] MEDS: FAMOTIDINE 20 MG TAB PO SCH ×2 (10:33→21:59)
[2021-06-19] MEDS: ASPIRIN EC 81 MG TAB PO SCH (10:33)
[2021-06-19] MEDS: ALPRAZolam 0.5 MG TAB PO SCH ×2 (10:33→22:00)
[2021-06-19] MEDS: levETIRAcetam 500 MG TAB PO SCH ×2 (10:33→21:59)
[2021-06-19] MEDS: PROPRANOLOL 40 MG TAB PO SCH ×3 (10:34→22:59)
[2021-06-19] MEDS: QUEtiapine 100 MG TAB PO SCH (10:34)
[2021-06-19] MEDS: amLODIPine 10 MG TAB PO SCH (10:34)
--- NOTE | 2021-06-19 10:58 | Progress Note ---
Assessment and Plan Assessment and plan: 40 years old female with past medical history of hypertension, PE x2, (R lung 05/2016, L lung 01/2017--on coumadin), R leg DVT 03/2017, Graves Disease, heart murmur, aortic dissection, PERICARDITIS, thyroid storm, and GERD admitted for acute bilateral pulmonary thromboemboli with evidence of mild right ventricular strain on heparin gtt and warfarin. Assessment and Plan: Sepsis, MSSA bacteremia -Etiology unclear, line infection vs endocarditis, infected TEVAR graft. -06/04 bcx: 3/ bottles MSSA - 06/07 bcx: NGTD - urine culture: NGTD -TTE negative for valvular vegetations -HANK negative for endocarditis - ID following -Continue Ancef -DAVID PICC line noted, remove RIJ CVC Hypotension (resolved) -Patient with low blood pressure at night -IVF started -avoid antihypotensives -labetalol currently held Acute pulmonary embolism History of DVT on warfarin Troponin unremarkable, chest x-ray unremarkable, bilateral lower extremity venous Dopplers unremarkable for acute DVT CT angio chest revealing acute bilateral pulmonary emboli with evidence of right heart strain Home medication of warfarin 7.5 mg daily; however, INR 1.03. Patient endorses being compliant with her anticoagulation. Continue heparin drip and bridged warfarin daily until therapeutic (goal 2.53.5). TTE without evidence of right heart strain Patient needs to be taking BOTH warfarin and heparin until INR goal of 2.5 achieved. - Remains subtherapeutic despite Heparin and Warfarin - Hematology consulted for possible warfarin resistance history of mechanical heart valve - goal inr 2.5. Seizure disorder Anxiety Continue home medications: Keppra 500 mg twice daily, Quetiapine 100 mg every morning and 300 mg nightly, alprazolam 0.5 mg 3 times daily History of aortic dissection s/p tevar. Hypothyroidism -resume home levothyroxine microcytic anemia -stable Transfuse if hemoglobin less than 7 or patient become symptomatic Morbid obesity Weight loss counseling Exercise counseling - BMI 39.1 - Counseled patient on the importance of weight loss, incorporating exercise, and dietary changes (lean meats, fresh fruits and vegetables, and water intake). Patient expresses understanding. Hospital Course: 06/05: Is unclear to me why the patient was transferred to the [facility] as I do not have any clear documentation to the results but in effect I was told by the nurse that the patient had pulled out his for her femoral line and did not have an access. Patient appears to have been having fever for a few days no known etiology we will proceed with a sepsis work-up although closely reviewing her case shows a history of thyroid storm in the past and she has not been receiving her thyroid medication while she does not have confusion at this time she does have tachycardia and tachypnea. We will give her a dose of IV levothyroxine today and start her daily dose of levothyroxine a.m. She has been on her propranolol although her home dose appears confusing as she gets 40 mg once daily and also 20 mg twice a day will discuss with her to clarify this and also with her pharmacy. She did have a right IJ triple-lumen catheter placed yesterday I discussed with her in the setting of well-documented by the nurse that she takes Midol at home which contains acetaminophen she is agreeable to trial acetaminophen as she wants to come off the cooling blanket. I also consulted ID and ordered a urinalysis with urine culture and some fluid support. I reviewed her CT scan and echocardiogram while the CT mentions the pulmonary embolism with mild right heart strain the echo shows a RVSP of 32 mmHg. I will proceed with consulting pulmonary in her case she would definitely need a bicycle technician outpatient. She continues on heparin drip while awaiting for therapeutic INR. In the meantime continue with antibiotic Right internal jugular vein triple-lumen catheter placement under ultrasound guidance 06/06: Patient seen and examined, showing some improvement, will follow cultures result, Continue abx, clinical stable, ID input, close eye on Hemoglobin. WBC mildly trended up. will transfer back to [facility]. 06/07: Continue supportive care, awaiting Cultures for ID and sensitivity in the meantime continue antibiotic. Am LABS. Patient continues on heparin drip until INR is therapeutic. I encouraged her to ambulate in her room and also set up on the chair. Cultures for COVID was negative. We will obtain PT OT evaluation. In short summary patient is a 40-year-old female with hypertension pulmonary embolism lower extremity DVT in the past on Coumadin who presented with shortness of breath diagnosed with pulmonary embolism admitted intermittently sepsis doubt septic emboli currently on antibiotics. Restarted on her thyroid medication with no evidence of thyroid storm. 06/08: resting comfortably on encounter. Afebrile today. Vital signs improved. 94% on 3L/min NC. Pain medication appears to be excessive as patient is heavily sedated, will scale back pain medication. D/w cardiology Dr Canseco regarding concern for endocarditis and possible infected TEVAR graft as potential source of infection. Consult placed for HANK. Will continue to follow culture data. Continue IV vancomycin per ID direction. INR remains subtherapeutic for treatment of DVT/PE but increased to 1.48, will continue warfarin at current do jerald and heparin gtt at this time. 06/09: continue therapy for MSSA bacteremia. Awaiting HANK completion. INR 1.54, warfarin 12.5 mg dose given today. Anemic today 6.9, ordered 1 unit prbc. Patient denies any rectal bleeding, bleeding from lines, hematemesis. Suspect anemia of chronic disease and possibly iatrogenic induced from multiple blood draw/line placement attempts. Lower suspicion for occult hematoma but will order CTAP. 06/10: Abx orders noted by ID. INR remains subtherapetuic, did not receive warfarin dose for some apparent reason. Pharmacy will give 15 mg dose today. Occult bleed r/o on ctap. No rectal bleeding reported. Will transfuse 1 unit prbc. Restart heparin gtt. Will follow up results of HANK from today. 06/11: HANK negative for endocarditis. INR subtherapuetic. unfortunately patient has missed last two day of warfarin dosing and inr reflects this. Patient could also be warfarin resistant. Patient needs to be receiving BOTH warfarin and heparin gtt until INR goal of 2.5 achieved. D/w pharmacy, will continue with 15 mg dosing at this time. Continue Iv abx. Discharge plan is for early next week. 06/12: Hypertensive this AM, added amlodipine for better BP control. INR 1.16. Continue heparin gtt while transitioning to warfarin. Plan for discharge early next week. CM working on OP IV abx arrangement. 06/13: Continue heparin gtt and warfarin. INR remains subtherapeutic. 06/14: Patient remains subtherapeutic despite heparin gtt and Warfarin. Will consult hematology for possible warfarin resistance and for further recs. Continue heparin gtt and warfarin for now. Patient remains on IV Abx, ancef per ID, DAVID PICC line noted remove RIJ CVC. 06/15: Continue heparin drip and warfarin until INR at goal of 2.5. . Patient remains on IV Abx, ancef per ID, DAVID PICC line noted remove RIJ CVC. 06/16: Continue heparin drip and warfarin until INR at goal of 2.5. . Patient remains on IV Abx, ancef per ID, DAVID PICC line noted remove RIJ CVC. Continue Keppra as needed for AEDs. Continue thyroid replacement therapy. 06/17: Continue heparin drip and warfarin until INR at goal of 2.5. . Patient remains on IV Abx, ancef per ID, DAVID PICC line noted remove RIJ CVC. Continue Keppra as needed for AEDs. 06/18: Continue heparin drip and warfarin until INR at goal of 2.5. . Patient remains on IV Abx, ancef per ID, DAVID PICC line noted remove RIJ CVC. Continue Keppra as needed for AEDs. INR actually decreased this morning. Pharmacy to do se Coumadin per protocol 06/19: Continue heparin drip and warfarin until INR at goal of 2.5. . Patient remains on IV Abx, ancef per ID and should be treated for total of 6 weeks. End date 07/19/2021. Case management to arrange for home IV antibiotics when INR therapeutic and patient ready for discharge. History Interval history: No new issues overnight Hospitalist Physical - Constitutional Vitals: Temp Pulse Resp BP Pulse Ox 98.9 F 66 22 132/65 94 06/19/21 05:57 06/19/21 05:57 06/19/21 05:57 06/19/21 05:57 06/19/21 05:57 General appearance: Present: no acute distress, well-nourished, obese - EENT Eyes: Present: PERRL, EOM intact ENT: hearing intact, clear oral mucosa, dentition normal - Neck Neck: Present: supple, normal ROM - Respiratory Respiratory effort: normal Respiratory: bilateral: CTA - Cardiovascular Rhythm: regular Heart Sounds: Present: S1 & S2. Absent: gallop, rub - Extremities Extremities: no ischemia, No edema, Full ROM - Abdominal General gastrointestinal: soft, non-tender, non-distended, normal bowel sounds - Integumentary Integumentary: Present: clear, warm, dry - Neurologic Neurologic: CNII-XII intact, moves all extremities HEART Score - HEART Score Troponin: Troponin T < 0.010 ng/mL (0.00-0.029) 05/30/21 04:46 Results - Labs CBC & Chem 7: 06/18/21 Unknown 06/18/21 Unknown Labs: Laboratory Last Values WBC 6.2 K/mm3 (4.5-11.0) 06/18/21 Unknown RBC 3.82 M/mm3 (3.65-5.03) 06/18/21 Unknown Hgb 8.9 gm/dl (10.1-14.3) L 06/18/21 Unknown Hct 28.8 % (30.3-42.9) L 06/18/21 Unknown MCV 75 fl (79-97) L 06/18/21 Unknown MCH 23 pg (28-32) L 06/18/21 Unknown MCHC 31 % (30-34) 06/18/21 Unknown RDW 27.4 % (13.2-15.2) H 06/18/21 Unknown Plt Count 431 K/mm3 (140-440) 06/18/21 Unknown Add Manual Diff Complete 06/18/21 Unknown Total Counted 100 06/18/21 Unknown Seg Neuts % (Manual) 72.0 % (40.0-70.0) H 06/18/21 Unknown Band Neutrophils % 2.0 % 06/18/21 Unknown Lymphocytes % (Manual) 18.0 % (13.4-35.0) 06/18/21 Unknown Reactive Lymphs % (Man) 0 % 06/18/21 Unknown Monocytes % (Manual) 2.0 % (0.0-7.3) 06/18/21 Unknown Eosinophils % (Manual) 6.0 % (0.0-4.3) H 06/18/21 Unknown Basophils % (Manual) 0 % (0.0-1.8) 06/18/21 Unknown Metamyelocytes % 0 % 06/18/21 Unknown Myelocytes % 0 % 06/18/21 Unknown Promyelocytes % 0 % 06/18/21 Unknown Blast Cells % 0 % 06/18/21 Unknown Nucleated RBC % Not Reportable 06/18/21 Unknown Seg Neutrophils # Man 4.5 K/mm3 (1.8-7.7) 06/18/21 Unknown Band Neutrophils # 0.1 K/mm3 06/18/21 Unknown Lymphocytes # (Manual) 1.1 K/mm3 (1.2-5.4) L 06/18/21 Unknown Abs React Lymphs (Man) 0.0 K/mm3 06/18/21 Unknown Monocytes # (Manual) 0.1 K/mm3 (0.0-0.8) 06/18/21 Unknown Eosinophils # (Manual) 0.4 K/mm3 (0.0-0.4) 06/18/21 Unknown Basophils # (Manual) 0.0 K/mm3 (0.0-0.1) 06/18/21 Unknown Metamyelocytes # 0.0 K/mm3 06/18/21 Unknown Myelocytes # 0.0 K/mm3 06/18/21 Unknown Promyelocytes # 0.0 K/mm3 06/18/21 Unknown Blast Cells # 0.0 K/mm3 06/18/21 Unknown WBC Morphology Not Reportable 06/18/21 Unknown Hypersegmented Neuts Not Reportable 06/18/21 Unknown Hyposegmented Neuts Not Reportable 06/18/21 Unknown Hypogranular Neuts Not Reportable 06/18/21 Unknown Smudge Cells Not Reportable 06/18/21 Unknown Toxic Granulation Not Reportable 06/18/21 Unknown Toxic Vacuolation Not Reportable 06/18/21 Unknown Dohle Bodies Not Reportable 06/18/21 Unknown Pelger-Huet Anomaly Not Reportable 06/18/21 Unknown Jaime Rods Not Reportable 06/18/21 Unknown Platelet Estimate Consistent w auto 06/18/21 Unknown Clumped Platelets Not Reportable 06/18/21 Unknown Plt Clumps, EDTA Not Reportable 06/18/21 Unknown Large Platelets Not Reportable 06/18/21 Unknown Giant Platelets Not Reportable 06/18/21 Unknown Platelet Satelliting Not Reportable 06/18/21 Unknown Plt Morphology Comment Not Reportable 06/18/21 Unknown RBC Morphology Not Reportable 06/18/21 Unknown Dimorphic RBCs Not Reportable 06/18/21 Unknown Polychromasia Not Reportable 06/18/21 Unknown Hypochromasia 2+ 06/18/21 Unknown Poikilocytosis Not Reportable 06/18/21 Unknown Anisocytosis 3+ 06/18/21 Unknown Microcytosis Not Reportable 06/18/21 Unknown Macrocytosis Not Reportable 06/18/21 Unknown Spherocytes Not Reportable 06/18/21 Unknown Pappenheimer Bodies Not Reportable 06/18/21 Unknown Sickle Cells Not Reportable 06/18/21 Unknown Target Cells Not Reportable 06/18/21 Unknown Tear Drop Cells Not Reportable 06/18/21 Unknown Ovalocytes Not Reportable 06/18/21 Unknown Helmet Cells Not Reportable 06/18/21 Unknown [place] Bodies Not Reportable 06/18/21 Unknown [place] Rings Not Reportable 06/18/21 Unknown Tricia Cells Not Reportable 06/18/21 Unknown Bite Cells Not Reportable 06/18/21 Unknown Crenated Cell Not Reportable 06/18/21 Unknown Elliptocytes Not Reportable 06/18/21 Unknown Acanthocytes (Spur) Not Reportable 06/18/21 Unknown Rouleaux Not Reportable 06/18/21 Unknown Hemoglobin C Crystals Not Reportable 06/18/21 Unknown Schistocytes Not Reportable 06/18/21 Unknown Malaria parasites Not Reportable 06/18/21 Unknown Koffi Bodies Not Reportable 06/18/21 Unknown Hem Pathologist Commnt No 06/18/21 Unknown PT 14.9 Sec. (12.2-14.9) 06/19/21 Unknown INR 1.05 (0.87-1.13) 06/19/21 Unknown APTT 52.6 Sec. (24.2-36.6) H 05/31/21 06:40 Fibrinogen 420 mg/dl (211-480) 06/16/21 03:15 Heparin Anti-Xa Level 0.38 U.I./ml (0.3-0.7) 06/19/21 09:05 ABG pH 7.401 pH Units (7.350-7.450) 06/15/21 10:28 ABG pCO2 46.2 mm Hg 06/15/21 10:28 ABG pO2 41.6 mm Hg (80.0-90.0) L 06/15/21 10:28 ABG HCO3 28.1 mmol/L (20.0-26.0) H 06/15/21 10:28 ABG O2 Saturation 69.2 % (95.0-99.0) L 06/15/21 10:28 ABG O2 Content 8.1 (0.0-44) 06/15/21 10:28 ABG Base Excess 2.9 mmol/L (-2.0-3.0) 06/15/21 10:28 ABG Hemoglobin 8.5 gm/dl (12.0-16.0) L 06/15/21 10:28 ABG Carboxyhemoglobin 1.7 % (0.0-5.0) 06/15/21 10: ABG Methemoglobin 0.7 % (0.0-1.5) 06/15/21 10: Oxyhemoglobin 67.6 % (95.0-99.0) L 06/15/21 10:28 FiO2 21 % 06/15/21 10:28 Sodium 134 mmol/L (137-145) L 06/18/21 Unknown Potassium 4.0 mmol/L (3.6-5.0) 06/18/21 Unknown Chloride 96.5 mmol/L (98-107) L 06/18/21 Unknown Carbon Dioxide 29 mmol/L (22-30) 06/18/21 Unknown Anion Gap 13 mmol/L 06/18/21 Unknown BUN 9 mg/dL (7-17) 06/18/21 Unknown Creatinine 0.9 mg/dL (0.6-1.2) 06/18/21 Unknown Estimated GFR > 60 ml/min 06/18/21 Unknown BUN/Creatinine Ratio 10 % 06/18/21 Unknown Glucose 91 mg/dL (65-100) 06/18/21 Unknown POC Glucose 77 mg/dL (70-105) 06/18/21 07:45 Lactic Acid 0.70 mmol/L (0.7-2.0) 06/05/21 10:40 Calcium 9.1 mg/dL (8.4-10.2) 06/18/21 Unknown Total Bilirubin < 0.20 mg/dL (0.1-1.2) 06/14/21 Unknown AST 8 units/L (5-40) 06/14/21 Unknown ALT < 5 units/L (7-56) L 06/14/21 Unknown Alkaline Phosphatase 73 units/L (35-129) 06/14/21 Unknown Troponin T < 0.010 ng/mL (0.00-0.029) 05/30/21 04:46 Total Protein 5.9 g/dL (6.3-8.2) L 06/14/21 Unknown Albumin 3.5 g/dL (3.9-5) L 06/14/21 Unknown Albumin/Globulin Ratio 1.5 % 06/14/21 Unknown Lipase 31 units/L (13-60) 05/30/21 04:41 TSH 0.034 mlU/mL (0.270-4.200) L 06/05/21 10:40 Free T4 1.29 ng/dL (0.76-1.46) 06/05/21 10:40 HCG, Qual Negative (Negative) 05/29/21 23:24 Urine Color Yellow (Yellow) 06/05/21 12:20 Urine Turbidity Slightly-cloudy (Clear) 06/05/21 12:20 Urine pH 6.0 (5.0-7.0) 06/05/21 12:20 Ur Specific [place] 1.004 (1.003-1.030) 06/05/21 12:20 Urine Protein <15 mg/dl mg/dL (Negative) 06/05/21 12:20 Urine Glucose (UA) Neg mg/dL (Negative) 06/05/21 12:20 Urine Ketones Neg mg/dL (Negative) 06/05/21 12:20 Urine Blood Mod (Negative) 06/05/21 12:20 Urine Nitrite Neg (Negative) 06/05/21 12:20 Urine Bilirubin Neg (Negative) 06/05/21 12:20 Urine Urobilinogen < 2.0 mg/dL (<2.0) 06/05/21 12:20 Ur Leukocyte Esterase Neg (Negative) 06/05/21 12:20 Urine WBC (Auto) 2.0 /HPF (0.0-6.0) 06/05/21 12:20 Urine RBC (Auto) 37.0 /HPF (0.0-6.0) 06/05/21 12:20 U Epithel Cells (Auto) 3.0 /HPF (0-13.0) 06/05/21 12:20 Urine Bacteria (Auto) 4+ /HPF (Negative) 06/05/21 12:20 Urine Mucus Few /HPF 06/05/21 12:20 Vancomycin Trough 25.1 ug/mL (5.0-20.0) H 06/08/21 04:52 LAURA Screen Negative (Negative) 06/05/21 15:10 Cardiolipid IgG Ab <2.0 GPL-U/mL (<20.0) 06/15/21 06:47 Cardiolipid IgA Ab <2.0 APL-U/mL (<20.0) 06/15/21 06:47 Cardiolipid IgM Ab <2.0 MPL-U/mL (<20.0) 06/15/21 06:47 Coronavirus (PCR) Negative (Negative) 06/05/21 07:26 Influenza A (Rapid) Negative (Negative) 06/05/21 14:06 Influenza A (RT-PCR) Negative (Negative) 06/05/21 14:06 Influenza B (Rapid) Negative (Negative) 06/05/21 14:06 Influenza B (RT-PCR) Negative (Negative) 06/05/21 14:06 Blood Type B POSITIVE 06/10/21 08:33 Antibody Screen Negative 06/10/21 08:33 Crossmatch See Detail 06/10/21 08:33 Rojas/IV: Voiding Method Bedside Commode Active Medications - Current Medications Current Medications: Generic Name Dose Route Start Last Admin Trade Name Freq PRN Reason Stop Dose Admin Albuterol 2.5 mg 05/30/21 05:14 Albuterol 2.5 Mg/3 Ml Nebu IH Q3HRT PRN Shortness Of Breath Alprazolam 0.5 mg 06/09/21 08:00 06/19/21 10:33 Alprazolam 0.5 Mg Tab PO 0.5 mg BID ELLIOTT Administration Amlodipine Besylate 10 mg 06/12/21 10:00 06/19/21 10:34 Amlodipine 10 Mg Tab PO 10 mg QDAY ELLIOTT Administration Aspirin 81 mg 05/30/21 10:00 06/19/21 10:33 Aspirin Ec 81 Mg Tab PO 81 mg QDAY ELLIOTT Administration Famotidine 20 mg 05/30/21 10:00 06/19/21 10:33 Famotidine 20 Mg Tab PO 20 mg BID ELLIOTT Administration Gabapentin 100 mg 06/10/21 22:00 06/19/21 06:31 Gabapentin 100 Mg Cap PO 100 mg Q8HR ELLIOTT Administration Heparin Sodium (Porcine) 4,500 unit 06/03/21 09:46 06/19/21 04:51 Heparin 10,000 Units/10 Ml Vial 40 unit/kg (4500 unit) 4,500 unit IV Administration Q6H PRN Anti-Xa Assay < 0.1 units/ml Heparin Sodium/Sodium Chloride 25,000 unit in 500 mls @ 30 mls/hr 06/03/21 10:00 06/19/21 10:40 Heparin/ 0.45% Nacl-25,000 Unit/500 Ml IV Infused TITR [facility] Titration Protocol 1,500 UNITS/HR Cefazolin Sodium 2 gm/ Sodium 100 mls @ 200 mls/hr 06/08/21 12:00 06/19/21 06:31 Chloride IV 07/19/21 18:29 200 mls/hr Q6HR ELLIOTT Administration Protocol Levetiracetam 500 mg 05/30/21 10:00 06/19/21 10:33 Levetiracetam 500 Mg Tab PO 500 mg BID ELLIOTT Administration Levothyroxine Sodium 150 mcg 06/06/21 06:00 06/19/21 06:31 Levothyroxine 150 Mcg Tab PO 150 mcg DAILY@0600 ELLIOTT Administration Morphine Sulfate 2 mg 06/03/21 09:30 06/19/21 02:20 Morphine 2 Mg/1 Ml Inj IV 2 mg Q8H PRN Administration Pain, Moderate (4-6) Ondansetron HCl 4 mg 06/05/21 08:00 06/17/21 00:14 Ondansetron 4 Mg/2 Ml Inj IV 4 mg Q4H PRN Administration Nausea And Vomiting Propranolol HCl 40 mg 05/30/21 10:00 06/19/21 10:34 Propranolol 40 Mg Tab PO 40 mg BID ELLIOTT Administration Quetiapine Fumarate 100 mg 05/30/21 10:00 06/19/21 10:34 Quetiapine 100 Mg Tab PO 100 mg QAM ELLIOTT Administration Sodium Chloride 10 ml 05/30/21 10:00 06/19/21 10:34 Sodium Chloride 0.9% 10 Ml Flush Syringe IV 10 ml BID ELLIOTT Administration Sodium Chloride 10 ml 05/30/21 05:14 Sodium Chloride 0.9% 10 Ml Flush Syringe IV PRN PRN LINE FLUSH Tramadol HCl 100 mg 06/09/21 08:00 06/19/21 10:33 Tramadol 50 Mg Tab PO 100 mg BID ELLIOTT Administration Warfarin Sodium 20 mg 06/19/21 17:00 Warfarin 10 Mg Tab PO 06/20/21 16:59 DAILY@1700 NR Warfarin Sodium 7.5 mg 06/19/21 17:00 Warfarin 7.5 Mg Tab PO 06/20/21 16:59 DAILY@1700 NR Nutrition/Malnutrition Assess - Dietary Evaluation Nutrition/Malnutrition Findings: Nutrition Notes Start: 05/31/21 12:39 Freq: Status: Active Protocol: Document 06/14/21 07:31 KING (Rec: 06/14/21 07:42 KING [id number]) Nutrition Notes Initial or Follow up Reassessment Current Diagnosis Sepsis,Hypertension Other Pertinent Diagnosis Pulmonary embolism, Chest pain , Seizure D/O, Anxiety, Hypothyroidism Current Diet Renal Labs/Tests No current available Pertinent Medications Reviewed Height 5 ft 7 in Weight 111 kg [place] Body Weight (kg) 61.36 BMI 38.3 Weight Status Obese Subjective/Other Information Pt has consumed 50% of meals since last assessment. Not sure why pt prescribed renal diet on 06/11; no mention of renal dysfunction in MD notes. Cr lab increased to 1.4 on but is trending downward. Percent of energy/protein needs met: 58% energy 56% pro Burn Absent Trauma Absent Current % PO Fair (50-74%) #1 Nutrition Diagnosis Inadequate protein-energy intake Etiology medical dx, anxiety As Evidenced by Signs and Symptoms PO intake meeting <75% estimated energy and pro needs Is patient on ventilator? No Is Patient Ambulatory and/or Out of Bed Yes REE-([place]-ambulatory/OOB) [ 2356.419 [id number]] Kcal/Kg value to use for calculation 16 Approximate Energy Requirements Using 1776 kcal/Kg Calculation Used for Recommendations Kcal/kg Additional Notes Pro needs 0.8-1g/kg adjBW: 69- 86g/day Fluid needs 1ml/kcal Nutrition Intervention Change Diet Order: Continue current diet order Add Supplement/Snack (indicate name/kcal Ensure High Protein once daily /protein ) Provides kCal: 160 Provides Protein (gm) 16 Goal #1 PO intake of meals plus ONS to meet at least 75% energy and pro needs Follow-Up By: 06/21/21 Additional Comments F/U: intakes (meals/ONS), renal function and need for renal diet, wt
--- NOTE | 2021-06-19 16:01 | Progress Note ---
Assessment and Plan 40 years old female with past medical history of hypertension, DVT, PE, GERD Hyperthyroidismwas brought to the hospital because of chest pain, retrosternal, sharp, radiating to back, 10/10, worsened by deep breaths, not relieved by anything, associated with SOB. Denies palpitations, diaphoresis. Endorses bilateral leg swelling, pain in her calves. Denies recent travel, immobilization, surgery, hospitalization, Hormonal contraceptive use. In the emergency room initial CT scan of the chest shows acute bilateral pulmonary thromboemboli with evidence of mild right ventricular strain. Scattered pneumonitis noted throughout the both lungs. Admitted the patient to the medical telemetry put the patient on IV heparin . Ordered echocardiogram Past Surgical History: Other (Left arm surgery 02/2017, Right knee, Rt leg. 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 Patient sleeping, on 5 litres O2.O2 saturation recorded 92%. Patient arousable. Still complaining some shortness of breath and chest pain. Patient afebrile. No leukocytosis. Blood pressure 121/58, Pulse 60 , Respirations 16. Patient is on I/V heparin, cefazolin, famotidine. - Patient Problems (1) Pulmonary embolism Current Visit: Yes Status: Acute Plan to address problem: Patient is on I/V Heparin. (2) Acute chest pain Current Visit: No Status: Acute Plan to address problem: Cardiology also consulted. (3) Abnormality of thoracic aorta Current Visit: No Status: Acute Plan to address problem: Patient has history of aortic dissection and TEVAR procedure. (4) Asthma Current Visit: No Status: Acute Plan to address problem: Albuterol inhaler 2 puffs po qid prn for shortness of breath. (5) Cardiomyopathy Current Visit: No Status: Acute Plan to address problem: Management as per cardiology. (6) DVT, bilateral lower limbs Current Visit: No Status: Acute Plan to address problem: Patient is on I/V Heparin. H/O IVC filter. 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 (8) Nicotine dependence unspecified, with withdrawal Current Visit: No Status: Acute Qualifiers: Plan to address problem: Counseled to stop smoking. (9) Obesity hypoventilation syndrome Current Visit: No Status: Acute Plan to address problem: ABGs on room air during day time. Recommend sleep study as out patient. Recommend to loose weight. Recommend not to drive or operate heavy equipment with sleepiness. Avoid alcohol, sedatives and Narcotics. Explained sleep hygiene. (10) Seizure disorder Current Visit: No Status: Acute Plan to address problem: Management as per primary care and neurology. (11) Bipolar disorder Current Visit: No Status: Chronic Qualifiers: Active/Remission status: in remission of unspecified degree Qualified Code(s): F31.70 - Bipolar disorder, currently in remission, most recent episode unspecified Plan to address problem: Management as per primary care and psychiatry. (12) GERD (gastroesophageal reflux disease) Current Visit: No Status: Chronic Qualifiers: Esophagitis presence: without esophagitis Qualified Code(s): K21.9 - Gastro-esophageal reflux disease without esophagitis Plan to address problem: Patient is on Famotidine. (13) Hypothyroidism (acquired) Current Visit: Yes Status: Acute Plan to address problem: Patient has history of thyrotoxicosis. Patient presently is hypothyroid. Patient is on levothyroxine. Subjective Date of service: 06/19/21 Principal diagnosis: Sepsis; Acute P.E.; Chest pain; H/O DVT; Seizures; Hypothyroidism; Obesity Interval history: 40 years old female obese with past medical history of hypertension, DVT, PE, GERD Hyperthyroidism was brought to the hospital because of chest pain, retrosternal pain, sharp, radiating to back, 10/10, worsened by deep breaths, not relieved by anything, associated with SOB. Denies palpitations, diaphoresis. Endorses bilateral leg swelling, pain in her calves. Denies recent travel, immobilization, surgery, hospitalization, Hormonal contraceptive use. In the emergency room initial CT scan of the chest shows acute bilateral pulmonary thromboemboli with evidence of mild right ventricular strain. Scattered pneumonitis noted throughout the both lungs. Admitted the patient to the medical telemetry put the patient on IV heparin . Ordered echocardiogram Past Surgical History: Other (Left arm surgery 02/2017, Right knee, Rt leg. 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, [place] Filter) Social history: History of smoking. Patient sleeping, on 5 litres O2.O2 saturation recorded 92%. Patient arousable. Still complaining some shortness of breath and chest pain. Patient afebrile. No leukocytosis. Blood pressure 121/58, Pulse 60 , Respirations 16. Patient is on I/V heparin, cefazolin, famotidine. Objective Vital Signs - 12hr 06/19/21 06/19/21 06/19/21 05:57 10:00 11:10 Temperature 98.9 F 99.0 F Pulse Rate 66 65 Respiratory 22 22 Rate Blood Pressure 132/65 108/47 O2 Sat by Pulse 94 97 95 Oximetry Constitutional: no acute distress, asleep, other (Patient arousable. Complaining some chest pain and shortness of breath,) Eyes: non-icteric ENT: oropharynx moist Neck: supple, no lymphadenopathy, no JVD, other (large neck circumference; RIJ CVL) Effort: mildly labored Ascultation: Bilateral: diminished breath sounds Percussion: Bilateral: not dull Cardiovascular: regular rate and rhythm Gastrointestinal: normoactive bowel sounds, soft, non-tender, other (distended but soft) Integumentary: normal Extremities: no cyanosis, no edema, pulses normal, no ischemia or petechiae Neurologic: non-focal exam (grossly), pupils equal and round, CN II-XII normal, motor strength normal and Psychiatric: other (Sleeping at this time.) CBC and BMP: 06/20/21 05:00 06/20/21 05:00 ABG, PT/INR, D-dimer: ABG ABG pH 7.401 pH Units (7.350-7.450) 06/15/21 10:28 ABG pCO2 46.2 mm Hg 06/15/21 10:28 ABG pO2 41.6 mm Hg (80.0-90.0) L 06/15/21 10:28 ABG O2 Saturation 69.2 % (95.0-99.0) L 06/15/21 10:28 PT/INR, D-dimer PT 14.9 Sec. (12.2-14.9) 06/19/21 Unknown INR 1.05 (0.87-1.13) 06/19/21 Unknown Abnormal lab findings: Abnormal Labs 05/29/21 05/29/21 05/29/21 23:24 23:24 23:29 WBC RBC Hgb 8.8 L Hct 28.7 L MCV 74 L MCH 23 L RDW 26.4 H Seg Neuts % (Manual) 75.0 H Lymphocytes % (Manual) Eosinophils % (Manual) Seg Neutrophils # Man Lymphocytes # (Manual) Eosinophils # (Manual) PT INR APTT 20.9 L Heparin Anti-Xa Level ABG pO2 ABG HCO3 ABG O2 Saturation ABG Hemoglobin Oxyhemoglobin Sodium Chloride Carbon Dioxide 20 L Creatinine Glucose Calcium ALT Total Protein Albumin 3.5 L TSH Vancomycin Trough Crossmatch 05/30/21 05/30/21 05/30/21 08:25 08:25 13:35 WBC RBC Hgb 8.8 L Hct 27.5 L MCV MCH RDW Seg Neuts % (Manual) Lymphocytes % (Manual) Eosinophils % (Manual) Seg Neutrophils # Man Lymphocytes # (Manual) Eosinophils # (Manual) PT 15.4 H INR APTT 107.1 H* Heparin Anti-Xa Level 0.82 H ABG pO2 ABG HCO3 ABG O2 Saturation ABG Hemoglobin Oxyhemoglobin Sodium Chloride Carbon Dioxide Creatinine Glucose Calcium ALT Total Protein Albumin TSH Vancomycin Trough Crossmatch 05/30/21 05/31/21 05/31/21 20:57 06:40 06:40 WBC 13.0 H RBC Hgb 8.9 L Hct 28.5 L MCV 74 L MCH 23 L RDW 25.7 H Seg Neuts % (Manual) 77.0 H Lymphocytes % (Manual) Eosinophils % (Manual) Seg Neutrophils # Man 10.0 H Lymphocytes # (Manual) Eosinophils # (Manual) PT INR APTT 52.6 H Heparin Anti-Xa Level 0.15 L 0.74 H ABG pO2 ABG HCO3 ABG O2 Saturation ABG Hemoglobin Oxyhemoglobin Sodium Chloride Carbon Dioxide Creatinine Glucose Calcium ALT Total Protein Albumin TSH Vancomycin Trough Crossmatch 06/01/21 06/01/21 06/02/21 09:55 10:27 06:15 WBC RBC Hgb 9.4 L Hct MCV MCH RDW Seg Neuts % (Manual) Lymphocytes % (Manual) Eosinophils % (Manual) Seg Neutrophils # Man Lymphocytes # (Manual) Eosinophils # (Manual) PT INR APTT Heparin Anti-Xa Level 0.13 L 0.25 L ABG pO2 ABG HCO3 ABG O2 Saturation ABG Hemoglobin Oxyhemoglobin Sodium Chloride Carbon Dioxide Creatinine Glucose Calcium ALT Total Protein Albumin TSH Vancomycin Trough Crossmatch 06/02/21 06/03/21 06/04/21 23:30 Unknown 07:39 WBC RBC Hgb 8.5 L Hct 28.0 L MCV MCH RDW Seg Neuts % (Manual) Lymphocytes % (Manual) Eosinophils % (Manual) Seg Neutrophils # Man Lymphocytes # (Manual) Eosinophils # (Manual) PT 15.0 H INR APTT Heparin Anti-Xa Level 0.19 L ABG pO2 ABG HCO3 ABG O2 Saturation ABG Hemoglobin Oxyhemoglobin Sodium Chloride Carbon Dioxide Creatinine Glucose Calcium ALT Total Protein Albumin TSH Vancomycin Trough Crossmatch 06/05/21 06/05/21 06/05/21 04:07 04:07 10:40 WBC RBC Hgb 8.4 L Hct 27.3 L MCV MCH RDW Seg Neuts % (Manual) Lymphocytes % (Manual) Eosinophils % (Manual) Seg Neutrophils # Man Lymphocytes # (Manual) Eosinophils # (Manual) PT 17.7 H INR 1.30 H APTT Heparin Anti-Xa Level ABG pO2 ABG HCO3 ABG O2 Saturation ABG Hemoglobin Oxyhemoglobin Sodium Chloride Carbon Dioxide Creatinine Glucose Calcium ALT Total Protein Albumin TSH 0.034 L Vancomycin Trough Crossmatch 06/05/21 06/05/21 06/06/21 10:40 11:01 04:00 WBC 14.0 H RBC 3.37 L Hgb 7.5 L Hct 24.8 L MCV 74 L MCH 22 L RDW 25.0 H Seg Neuts % (Manual) 94.0 H Lymphocytes % (Manual) 3.0 L Eosinophils % (Manual) Seg Neutrophils # Man 13.2 H Lymphocytes # (Manual) 0.4 L Eosinophils # (Manual) PT 17.4 H INR 1.27 H APTT Heparin Anti-Xa Level ABG pO2 ABG HCO3 ABG O2 Saturation ABG Hemoglobin Oxyhemoglobin Sodium 135 L Chloride Carbon Dioxide 20 L Creatinine Glucose Calcium 7.8 L ALT Total Protein Albumin TSH Vancomycin Trough Crossmatch 06/07/21 06/07/21 06/08/21 12:55 12:55 04:52 WBC RBC Hgb 7.1 L Hct 23.6 L MCV MCH RDW Seg Neuts % (Manual) Lymphocytes % (Manual) Eosinophils % (Manual) Seg Neutrophils # Man Lymphocytes # (Manual) Eosinophils # (Manual) PT 19.7 H INR 1.48 H APTT Heparin Anti-Xa Level ABG pO2 ABG HCO3 ABG O2 Saturation ABG Hemoglobin Oxyhemoglobin Sodium Chloride 116.6 H Carbon Dioxide 18 L Creatinine Glucose Calcium 7.4 L ALT Total Protein 4.7 L Albumin 2.7 L TSH Vancomycin Trough Crossmatch 06/08/21 06/09/21 06/09/21 04:52 06:46 06:46 WBC RBC 3.09 L Hgb 6.9 L Hct 22.4 L MCV 72 L MCH 22 L RDW 25.0 H Seg Neuts % (Manual) Lymphocytes % (Manual) Eosinophils % (Manual) Seg Neutrophils # Man Lymphocytes # (Manual) Eosinophils # (Manual) PT INR APTT Heparin Anti-Xa Level < 0.10 L ABG pO2 ABG HCO3 ABG O2 Saturation ABG Hemoglobin Oxyhemoglobin Sodium Chloride Carbon Dioxide Creatinine Glucose Calcium ALT Total Protein Albumin TSH Vancomycin Trough 25.1 H Crossmatch 06/09/21 06/10/21 06/10/21 Unknown 08:31 08:31 WBC RBC 3.17 L Hgb 7.1 L Hct 22.9 L MCV 72 L MCH 22 L RDW 25.5 H Seg Neuts % (Manual) 71.0 H Lymphocytes % (Manual) Eosinophils % (Manual) Seg Neutrophils # Man Lymphocytes # (Manual) 1.0 L Eosinophils # (Manual) PT 20.4 H 17.6 H INR 1.54 H 1.29 H APTT Heparin Anti-Xa Level ABG pO2 ABG HCO3 ABG O2 Saturation ABG Hemoglobin Oxyhemoglobin Sodium Chloride Carbon Dioxide Creatinine Glucose Calcium ALT Total Protein Albumin TSH Vancomycin Trough Crossmatch 06/10/21 06/10/21 06/11/21 08:31 08:33 08:25 WBC RBC Hgb Hct MCV MCH RDW Seg Neuts % (Manual) Lymphocytes % (Manual) Eosinophils % (Manual) Seg Neutrophils # Man Lymphocytes # (Manual) Eosinophils # (Manual) PT 16.3 H INR 1.17 H APTT Heparin Anti-Xa Level ABG pO2 ABG HCO3 ABG O2 Saturation ABG Hemoglobin Oxyhemoglobin Sodium Chloride 111.3 H Carbon Dioxide 21 L Creatinine 1.4 H Glucose Calcium ALT Total Protein 5.7 L D Albumin 3.2 L TSH Vancomycin Trough Crossmatch See Detail 06/12/21 06/12/21 06/14/21 05:45 05:45 Unknown WBC RBC Hgb Hct MCV MCH RDW Seg Neuts % (Manual) Lymphocytes % (Manual) Eosinophils % (Manual) Seg Neutrophils # Man Lymphocytes # (Manual) Eosinophils # (Manual) PT 16.1 H INR 1.16 H APTT Heparin Anti-Xa Level 0.26 L ABG pO2 ABG HCO3 ABG O2 Saturation ABG Hemoglobin Oxyhemoglobin Sodium Chloride Carbon Dioxide Creatinine 1.3 H Glucose Calcium ALT Total Protein Albumin TSH Vancomycin Trough Crossmatch 06/14/21 06/14/21 06/15/21 Unknown Unknown 03:56 WBC RBC 3.50 L Hgb 8.2 L Hct 26.3 L MCV 75 L MCH 24 L RDW 27.6 H Seg Neuts % (Manual) Lymphocytes % (Manual) Eosinophils % (Manual) Seg Neutrophils # Man Lymphocytes # (Manual) Eosinophils # (Manual) PT 15.4 H INR APTT Heparin Anti-Xa Level ABG pO2 ABG HCO3 ABG O2 Saturation ABG Hemoglobin Oxyhemoglobin Sodium Chloride Carbon Dioxide Creatinine Glucose 107 H Calcium ALT < 5 L Total Protein 5.9 L Albumin 3.5 L TSH Vancomycin Trough Crossmatch 06/15/21 06/15/21 06/16/21 03:56 10:28 03:15 WBC RBC 3.47 L Hgb 8.3 L Hct 25.8 L MCV 74 L MCH 24 L RDW 27.3 H Seg Neuts % (Manual) 72.0 H Lymphocytes % (Manual) Eosinophils % (Manual) 6.0 H Seg Neutrophils # Man Lymphocytes # (Manual) Eosinophils # (Manual) 0.5 H PT 16.7 H INR 1.21 H APTT Heparin Anti-Xa Level 0.17 L ABG pO2 41.6 L ABG HCO3 28.1 H ABG O2 Saturation 69.2 L ABG Hemoglobin 8.5 L Oxyhemoglobin 67.6 L Sodium Chloride Carbon Dioxide Creatinine Glucose Calcium ALT Total Protein Albumin TSH Vancomycin Trough Crossmatch 06/16/21 06/16/21 06/17/21 03:15 Unknown 00:25 WBC RBC Hgb 8.7 L Hct 28.5 L MCV 75 L MCH 23 L RDW 27.3 H Seg Neuts % (Manual) 72.0 H Lymphocytes % (Manual) Eosinophils % (Manual) Seg Neutrophils # Man Lymphocytes # (Manual) Eosinophils # (Manual) PT INR APTT Heparin Anti-Xa Level < 0.10 L 0.80 H ABG pO2 ABG HCO3 ABG O2 Saturation ABG Hemoglobin Oxyhemoglobin Sodium Chloride Carbon Dioxide Creatinine Glucose Calcium ALT Total Protein Albumin TSH Vancomycin Trough Crossmatch 06/17/21 06/18/21 06/18/21 Unknown Unknown Unknown WBC RBC Hgb 8.9 L Hct 28.8 L MCV 75 L MCH 23 L RDW 27.4 H Seg Neuts % (Manual) 72.0 H Lymphocytes % (Manual) Eosinophils % (Manual) 6.0 H Seg Neutrophils # Man Lymphocytes # (Manual) 1.1 L Eosinophils # (Manual) PT 16.1 H 15.4 H INR 1.16 H APTT Heparin Anti-Xa Level 0.21 L ABG pO2 ABG HCO3 ABG O2 Saturation ABG Hemoglobin Oxyhemoglobin Sodium Chloride Carbon Dioxide Creatinine Glucose Calcium ALT Total Protein Albumin TSH Vancomycin Trough Crossmatch 06/18/21 Unknown WBC RBC Hgb Hct MCV MCH RDW Seg Neuts % (Manual) Lymphocytes % (Manual) Eosinophils % (Manual) Seg Neutrophils # Man Lymphocytes # (Manual) Eosinophils # (Manual) PT INR APTT Heparin Anti-Xa Level ABG pO2 ABG HCO3 ABG O2 Saturation ABG Hemoglobin Oxyhemoglobin Sodium 134 L Chloride 96.5 L Carbon Dioxide Creatinine Glucose Calcium ALT Total Protein Albumin TSH Vancomycin Trough Crossmatch Allied health notes reviewed: nursing
[2021-06-19] MEDS ORDERED: WARFARIN 7.5 MG TAB PO NR (17:00)
[2021-06-19] MEDS ORDERED: WARFARIN 10 MG TAB PO NR (17:00)
[2021-06-19] MEDS: HEPARIN/ 0.45% NACL DRIP 25,000 UNIT/500 ML BAG IV SCH (21:55)
[2021-06-20] MEDS: MORPHINE 2 MG/1 ML INJ IV PRN ×3 (04:25→20:30)
[2021-06-20 05:36] LABS: Hemoglobin 9.2 gm/dl (10.1-14.3); Mean Corpuscular HGB Conc 31 % (30-34); Mean Corpuscular Volume 76 fl (79-97); Platelet Count 409 K/mm3 (140-440); Red Blood Count 3.95 M/mm3 (3.65-5.03)
[2021-06-20 05:37] LABS: Red Cell Distribution Width 26.8 % (13.2-15.2)
[2021-06-20 05:53] LABS: Blood Urea Nitrogen 7 mg/dL (7-17); Calcium 9.2 mg/dL (8.4-10.2); Hemolysis Index 0
[2021-06-20 05:54] LABS: INR 1.1 (0.87-1.13)
[2021-06-20 05:56] LABS: BUN/Creatinine Ratio 10
[2021-06-20] MEDS: GABAPENTIN 100 MG CAP PO SCH ×3 (05:56→21:39)
[2021-06-20] MEDS: LEVOTHYROXINE 150 MCG TAB PO SCH (05:56)
[2021-06-20 07:03] LABS: Basophils % (Manual) 0 % (0.0-1.8); Total Cells Counted 100
[2021-06-20 07:04] LABS: Anisocytosis 2+; Hypochromasia 1+; Platelet Estimate Consistent w Auto
[2021-06-20] MEDS: amLODIPine 10 MG TAB PO SCH (09:44)
[2021-06-20] MEDS: ALPRAZolam 0.5 MG TAB PO SCH ×2 (09:44→21:39)
[2021-06-20] MEDS: FAMOTIDINE 20 MG TAB PO SCH ×2 (09:44→21:38)
[2021-06-20] MEDS: QUEtiapine 100 MG TAB PO SCH (09:45)
[2021-06-20] MEDS: levETIRAcetam 500 MG TAB PO SCH ×2 (09:45→21:39)
[2021-06-20] MEDS: traMADol 50 MG TAB PO SCH ×2 (09:45→21:46)
[2021-06-20] MEDS: ASPIRIN EC 81 MG TAB PO SCH (09:45)
[2021-06-20] MEDS: PROPRANOLOL 40 MG TAB PO SCH ×2 (09:45→21:44)
[2021-06-20] MEDS: HEPARIN/ 0.45% NACL DRIP 25,000 UNIT/500 ML BAG IV SCH ×2 (09:49→23:00)
--- NOTE | 2021-06-20 11:52 | Progress Note ---
Assessment and Plan Assessment and plan: 40 years old female with past medical history of hypertension, PE x2, (R lung 05/2016, L lung 01/2017--on coumadin), R leg DVT 03/2017, Graves Disease, heart murmur, aortic dissection, PERICARDITIS, thyroid storm, and GERD admitted for acute bilateral pulmonary thromboemboli with evidence of mild right ventricular strain on heparin gtt and warfarin. Assessment and Plan: Sepsis, MSSA bacteremia -Etiology unclear, line infection vs endocarditis, infected TEVAR graft. -06/04 bcx: 3/ bottles MSSA - 06/07 bcx: NGTD - urine culture: NGTD -TTE negative for valvular vegetations -HANK negative for endocarditis - ID following -Continue Ancef -DAVID PICC line noted, remove RIJ CVC Hypotension (resolved) -Patient with low blood pressure at night -IVF started -avoid antihypotensives -labetalol currently held Acute pulmonary embolism History of DVT on warfarin Troponin unremarkable, chest x-ray unremarkable, bilateral lower extremity venous Dopplers unremarkable for acute DVT CT angio chest revealing acute bilateral pulmonary emboli with evidence of right heart strain Home medication of warfarin 7.5 mg daily; however, INR 1.03. Patient endorses being compliant with her anticoagulation. Continue heparin drip and bridged warfarin daily until therapeutic (goal 2.53.5). TTE without evidence of right heart strain Patient needs to be taking BOTH warfarin and heparin until INR goal of 2.5 achieved. - Remains subtherapeutic despite Heparin and Warfarin - Hematology consulted for possible warfarin resistance history of mechanical heart valve - goal inr 2.5. Seizure disorder Anxiety Continue home medications: Keppra 500 mg twice daily, Quetiapine 100 mg every morning and 300 mg nightly, alprazolam 0.5 mg 3 times daily History of aortic dissection s/p tevar. Hypothyroidism -resume home levothyroxine microcytic anemia -stable Transfuse if hemoglobin less than 7 or patient become symptomatic Morbid obesity Weight loss counseling Exercise counseling - BMI 39.1 - Counseled patient on the importance of weight loss, incorporating exercise, and dietary changes (lean meats, fresh fruits and vegetables, and water intake). Patient expresses understanding. Hospital Course: 06/05: Is unclear to me why the patient was transferred to the [facility] as I do not have any clear documentation to the results but in effect I was told by the nurse that the patient had pulled out his for her femoral line and did not have an access. Patient appears to have been having fever for a few days no known etiology we will proceed with a sepsis work-up although closely reviewing her case shows a history of thyroid storm in the past and she has not been receiving her thyroid medication while she does not have confusion at this time she does have tachycardia and tachypnea. We will give her a dose of IV levothyroxine today and start her daily dose of levothyroxine a.m. She has been on her propranolol although her home dose appears confusing as she gets 40 mg once daily and also 20 mg twice a day will discuss with her to clarify this and also with her pharmacy. She did have a right IJ triple-lumen catheter placed yesterday I discussed with her in the setting of well-documented by the nurse that she takes Midol at home which contains acetaminophen she is agreeable to trial acetaminophen as she wants to come off the cooling blanket. I also consulted ID and ordered a urinalysis with urine culture and some fluid support. I reviewed her CT scan and echocardiogram while the CT mentions the pulmonary embolism with mild right heart strain the echo shows a RVSP of 32 mmHg. 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 She continues on heparin drip while awaiting for therapeutic INR. In the meantime continue with antibiotic Right internal jugular vein triple-lumen catheter placement under ultrasound guidance 06/06: Patient seen and examined, showing some improvement, will follow cultures result, Continue abx, clinical stable, ID input, close eye on Hemoglobin. WBC mildly trended up. will transfer back to [facility]. 06/07: Continue supportive care, awaiting Cultures for ID and sensitivity in the meantime continue antibiotic. Am LABS. Patient continues on heparin drip until INR is therapeutic. I encouraged her to ambulate in her room and also set up on the chair. Cultures for COVID was negative. We will obtain PT OT evaluation. In short summary patient is a 40-year-old female with hypertension pulmonary embolism lower extremity DVT in the past on Coumadin who presented with shortness of breath diagnosed with pulmonary embolism admitted intermittently sepsis doubt septic emboli currently on antibiotics. Restarted on her thyroid medication with no evidence of thyroid storm. 06/08: resting comfortably on encounter. Afebrile today. Vital signs improved. 94% on 3L/min NC. Pain medication appears to be excessive as patient is heavily sedated, will scale back pain medication. D/w cardiology Dr Canseco regarding concern for endocarditis and possible infected TEVAR graft as potential source of infection. Consult placed for HANK. Will continue to follow culture data. Continue IV vancomycin per ID direction. INR remains subtherapeutic for treatment of DVT/PE but increased to 1.48, will continue warfarin at current do jerald and heparin gtt at this time. 06/09: continue therapy for MSSA bacteremia. Awaiting HANK completion. INR 1.54, warfarin 12.5 mg dose given today. Anemic today 6.9, ordered 1 unit prbc. Patient denies any rectal bleeding, bleeding from lines, hematemesis. Suspect anemia of chronic disease and possibly iatrogenic induced from multiple blood draw/line placement attempts. Lower suspicion for occult hematoma but will order CTAP. 06/10: Abx orders noted by ID. INR remains subtherapetuic, did not receive warfarin dose for some apparent reason. Pharmacy will give 15 mg dose today. Occult bleed r/o on ctap. No rectal bleeding reported. Will transfuse 1 unit prbc. Restart heparin gtt. Will follow up results of HANK from today. 06/11: HANK negative for endocarditis. INR subtherapuetic. unfortunately patient has missed last two day of warfarin dosing and inr reflects this. Patient could also be warfarin resistant. Patient needs to be receiving BOTH warfarin and heparin gtt until INR goal of 2.5 achieved. D/w pharmacy, will continue with 15 mg dosing at this time. Continue Iv abx. Discharge plan is for early next week. 06/12: Hypertensive this AM, added amlodipine for better BP control. INR 1.16. Continue heparin gtt while transitioning to warfarin. Plan for discharge early next week. CM working on OP IV abx arrangement. 06/13: Continue heparin gtt and warfarin. INR remains subtherapeutic. 06/14: Patient remains subtherapeutic despite heparin gtt and Warfarin. Will consult hematology for possible warfarin resistance and for further recs. Continue heparin gtt and warfarin for now. Patient remains on IV Abx, ancef per ID, DAVID PICC line noted remove RIJ CVC. 06/15: Continue heparin drip and warfarin until INR at goal of 2.5. . Patient remains on IV Abx, ancef per ID, DAVID PICC line noted remove RIJ CVC. 06/16: Continue heparin drip and warfarin until INR at goal of 2.5. . Patient remains on IV Abx, ancef per ID, DAVID PICC line noted remove RIJ CVC. Continue Keppra as needed for AEDs. Continue thyroid replacement therapy. 06/17: Continue heparin drip and warfarin until INR at goal of 2.5. . Patient remains on IV Abx, ancef per ID, DAVID PICC line noted remove RIJ CVC. Continue Keppra as needed for AEDs. 06/18: Continue heparin drip and warfarin until INR at goal of 2.5. . Patient remains on IV Abx, ancef per ID, DAVID PICC line noted remove RIJ CVC. Continue Keppra as needed for AEDs. INR actually decreased this morning. Pharmacy to do se Coumadin per protocol 06/19: Continue heparin drip and warfarin until INR at goal of 2.5. . Patient remains on IV Abx, ancef per ID and should be treated for total of 6 weeks. End date 07/19/2021. Case management to arrange for home IV antibiotics when INR therapeutic and patient ready for discharge. 06/20: Continue heparin drip and warfarin until INR at goal of 2.5. . Patient remains on IV Abx, ancef per ID and should be treated for total of 6 weeks. End date 07/19/2021. Case management to arrange for home IV antibiotics when INR therapeutic and patient ready for discharge. History Interval history: No new issues overnight Hospitalist Physical - Constitutional Vitals: Temp Pulse Resp BP Pulse Ox 98.5 F 68 18 140/80 99 06/20/21 04:38 06/20/21 09:44 06/20/21 04:38 06/20/21 09:44 06/20/21 08:14 General appearance: Present: no acute distress, well-nourished, obese - EENT Eyes: Present: PERRL, EOM intact ENT: hearing intact, clear oral mucosa, dentition normal - Neck Neck: Present: supple, normal ROM - Respiratory Respiratory effort: normal Respiratory: bilateral: CTA - Cardiovascular Rhythm: regular Heart Sounds: Present: S1 & S2. Absent: gallop, rub - Extremities Extremities: no ischemia, No edema, Full ROM - Abdominal General gastrointestinal: soft, non-tender, non-distended, normal bowel sounds - Integumentary Integumentary: Present: clear, warm, dry - Neurologic Neurologic: CNII-XII intact, moves all extremities HEART Score - HEART Score Troponin: Troponin T < 0.010 ng/mL (0.00-0.029) 05/30/21 04:46 Results - Labs CBC & Chem 7: 06/20/21 05:00 06/20/21 05:00 Labs: Laboratory Last Values WBC 5.2 K/mm3 (4.5-11.0) 06/20/21 05:00 RBC 3.95 M/mm3 (3.65-5.03) 06/20/21 05:00 Hgb 9.2 gm/dl (10.1-14.3) L 06/20/21 05:00 Hct 30.0 % (30.3-42.9) L 06/20/21 05:00 MCV 76 fl (79-97) L 06/20/21 05:00 MCH 23 pg (28-32) L 06/20/21 05:00 MCHC 31 % (30-34) 06/20/21 05:00 RDW 26.8 % (13.2-15.2) H 06/20/21 05:00 Plt Count 409 K/mm3 (140-440) 06/20/21 05:00 Add Manual Diff Complete 06/20/21 05:00 Total Counted 100 06/20/21 05:00 Seg Neuts % (Manual) 51.0 % (40.0-70.0) 06/20/21 05:00 Band Neutrophils % 0 % 06/20/21 05:00 Lymphocytes % (Manual) 37.0 % (13.4-35.0) H 06/20/21 05:00 Reactive Lymphs % (Man) 0 % 06/20/21 05:00 Monocytes % (Manual) 4.0 % (0.0-7.3) 06/20/21 05:00 Eosinophils % (Manual) 8.0 % (0.0-4.3) H 06/20/21 05:00 Basophils % (Manual) 0 % (0.0-1.8) 06/20/21 05:00 Metamyelocytes % 0 % 06/20/21 05:00 Myelocytes % 0 % 06/20/21 05:00 Promyelocytes % 0 % 06/20/21 05:00 Blast Cells % 0 % 06/20/21 05:00 Nucleated RBC % Not Reportable 06/20/21 05:00 Seg Neutrophils # Man 2.7 K/mm3 (1.8-7.7) 06/20/21 05:00 Band Neutrophils # 0.0 K/mm3 06/20/21 05:00 Lymphocytes # (Manual) 1.9 K/mm3 (1.2-5.4) 06/20/21 05:00 Abs React Lymphs (Man) 0.0 K/mm3 06/20/21 05:00 Monocytes # (Manual) 0.2 K/mm3 (0.0-0.8) 06/20/21 05:00 Eosinophils # (Manual) 0.4 K/mm3 (0.0-0.4) 06/20/21 05:00 Basophils # (Manual) 0.0 K/mm3 (0.0-0.1) 06/20/21 05:00 Metamyelocytes # 0.0 K/mm3 06/20/21 05:00 Myelocytes # 0.0 K/mm3 06/20/21 05:00 Promyelocytes # 0.0 K/mm3 06/20/21 05:00 Blast Cells # 0.0 K/mm3 06/20/21 05:00 WBC Morphology Not Reportable 06/20/21 05:00 Hypersegmented Neuts Not Reportable 06/20/21 05:00 Hyposegmented Neuts Not Reportable 06/20/21 05:00 Hypogranular Neuts Not Reportable 06/20/21 05:00 Smudge Cells Not Reportable 06/20/21 05:00 Toxic Granulation Not Reportable 06/20/21 05:00 Toxic Vacuolation Not Reportable 06/20/21 05:00 Dohle Bodies Not Reportable 06/20/21 05:00 Pelger-Huet Anomaly Not Reportable 06/20/21 05:00 Jaime Rods Not Reportable 06/20/21 05:00 Platelet Estimate Consistent w auto 06/20/21 05:00 Clumped Platelets Not Reportable 06/20/21 05:00 Plt Clumps, EDTA Not Reportable 06/20/21 05:00 Large Platelets Not Reportable 06/20/21 05:00 Giant Platelets Not Reportable 06/20/21 05:00 Platelet Satelliting Not Reportable 06/20/21 05:00 Plt Morphology Comment Not Reportable 06/20/21 05:00 RBC Morphology Not Reportable 06/20/21 05:00 Dimorphic RBCs Not Reportable 06/20/21 05:00 Polychromasia Not Reportable 06/20/21 05:00 Hypochromasia 1+ 06/20/21 05:00 Poikilocytosis Not Reportable 06/20/21 05:00 Anisocytosis 2+ 06/20/21 05:00 Microcytosis Not Reportable 06/20/21 05:00 Macrocytosis Not Reportable 06/20/21 05:00 Spherocytes Not Reportable 06/20/21 05:00 Pappenheimer Bodies Not Reportable 06/20/21 05:00 Sickle Cells Not Reportable 06/20/21 05:00 Target Cells Not Reportable 06/20/21 05:00 Tear Drop Cells Not Reportable 06/20/21 05:00 Ovalocytes Not Reportable 06/20/21 05:00 Helmet Cells Not Reportable 06/20/21 05:00 Graves-Bude Bodies Not Reportable 06/20/21 05:00 [place] Rings Not Reportable 06/20/21 05:00 [place] Cells Not Reportable 06/20/21 05:00 Bite Cells Not Reportable 06/20/21 05:00 Crenated Cell Not Reportable 06/20/21 05:00 Elliptocytes Not Reportable 06/20/21 05:00 Acanthocytes (Spur) Not Reportable 06/20/21 05:00 Rouleaux Not Reportable 06/20/21 05:00 Hemoglobin C Crystals Not Reportable 06/20/21 05:00 Schistocytes Not Reportable 06/20/21 05:00 Malaria parasites Not Reportable 06/20/21 05:00 Koffi Bodies Not Reportable 06/20/21 05:00 Hem Pathologist Commnt No 06/20/21 05:00 PT 15.5 Sec. (12.2-14.9) H 06/20/21 05:00 INR 1.10 (0.87-1.13) 06/20/21 05:00 APTT 52.6 Sec. (24.2-36.6) H 05/31/21 06:40 Fibrinogen 420 mg/dl (211-480) 06/16/21 03:15 Heparin Anti-Xa Level > 2.00 U.I./ml (0.3-0.7) H 06/20/21 10:00 ABG pH 7.401 pH Units (7.350-7.450) 06/15/21 10:28 ABG pCO2 46.2 mm Hg 06/15/21 10:28 ABG pO2 41.6 mm Hg (80.0-90.0) L 06/15/21 10:28 ABG HCO3 28.1 mmol/L (20.0-26.0) H 06/15/21 10:28 ABG O2 Saturation 69.2 % (95.0-99.0) L 06/15/21 10:28 ABG O2 Content 8.1 (0.0-44) 06/15/21 10:28 ABG Base Excess 2.9 mmol/L (-2.0-3.0) 06/15/21 10:28 ABG Hemoglobin 8.5 gm/dl (12.0-16.0) L 06/15/21 10:28 ABG Carboxyhemoglobin 1.7 % (0.0-5.0) 06/15/21 10:28 ABG Methemoglobin 0.7 % (0.0-1.5) 06/15/21 10:28 Oxyhemoglobin 67.6 % (95.0-99.0) L 06/15/21 10:28 FiO2 21 % 06/15/21 10:28 Sodium 140 mmol/L (137-145) 06/20/21 05:00 Potassium 4.3 mmol/L (3.6-5.0) 06/20/21 05:00 Chloride 103.9 mmol/L (98-107) 06/20/21 05:00 Carbon Dioxide 25 mmol/L (22-30) 06/20/21 05:00 Anion Gap 15 mmol/L 06/20/21 05:00 BUN 7 mg/dL (7-17) 06/20/21 05:00 Creatinine 0.7 mg/dL (0.6-1.2) 06/20/21 05:00 Estimated GFR > 60 ml/min 06/20/21 05:00 BUN/Creatinine Ratio 10 % 06/20/21 05:00 Glucose 90 mg/dL (65-100) 06/20/21 05:00 POC Glucose 77 mg/dL (70-105) 06/18/21 07:45 Lactic Acid 0.70 mmol/L (0.7-2.0) 06/05/21 10:40 Calcium 9.2 mg/dL (8.4-10.2) 06/20/21 05:00 Total Bilirubin < 0.20 mg/dL (0.1-1.2) 06/14/21 Unknown AST 8 units/L (5-40) 06/14/21 Unknown ALT < 5 units/L (7-56) L 06/14/21 Unknown Alkaline Phosphatase 73 units/L (35-129) 06/14/21 Unknown Troponin T < 0.010 ng/mL (0.00-0.029) 05/30/21 04:46 Total Protein 5.9 g/dL (6.3-8.2) L 06/14/21 Unknown Albumin 3.5 g/dL (3.9-5) L 06/14/21 Unknown Albumin/Globulin Ratio 1.5 % 06/14/21 Unknown Lipase 31 units/L (13-60) 05/30/21 04:41 TSH 0.034 mlU/mL (0.270-4.200) L 06/05/21 10:40 Free T4 1.29 ng/dL (0.76-1.46) 06/05/21 10:40 HCG, Qual Negative (Negative) 05/29/21 23:24 Urine Color Yellow (Yellow) 06/05/21 12:20 Urine Turbidity Slightly-cloudy (Clear) 06/05/21 12:20 Urine pH 6.0 (5.0-7.0) 06/05/21 12:20 Ur Specific [place] 1.004 (1.003-1.030) 06/05/21 12:20 Urine Protein <15 mg/dl mg/dL (Negative) 06/05/21 12:20 Urine Glucose (UA) Neg mg/dL (Negative) 06/05/21 12:20 Urine Ketones Neg mg/dL (Negative) 06/05/21 12:20 Urine Blood Mod (Negative) 06/05/21 12:20 Urine Nitrite Neg (Negative) 06/05/21 12:20 Urine Bilirubin Neg (Negative) 06/05/21 12:20 Urine Urobilinogen < 2.0 mg/dL (<2.0) 06/05/21 12:20 Ur Leukocyte Esterase Neg (Negative) 06/05/21 12:20 Urine WBC (Auto) 2.0 /HPF (0.0-6.0) 06/05/21 12:20 Urine RBC (Auto) 37.0 /HPF (0.0-6.0) 06/05/21 12:20 U Epithel Cells (Auto) 3.0 /HPF (0-13.0) 06/05/21 12:20 Urine Bacteria (Auto) 4+ /HPF (Negative) 06/05/21 12:20 Urine Mucus Few /HPF 06/05/21 12:20 Vancomycin Trough 25.1 ug/mL (5.0-20.0) H 06/08/21 04:52 LAURA Screen Negative (Negative) 06/05/21 15:10 Cardiolipid IgG Ab <2.0 GPL-U/mL (<20.0) 06/15/21 06:47 Cardiolipid IgA Ab <2.0 APL-U/mL (<20.0) 06/15/21 06:47 Cardiolipid IgM Ab <2.0 MPL-U/mL (<20.0) 06/15/21 06:47 Coronavirus (PCR) Negative (Negative) 06/05/21 07:26 Influenza A (Rapid) Negative (Negative) 06/05/21 14:06 Influenza A (RT-PCR) Negative (Negative) 06/05/21 14:06 Influenza B (Rapid) Negative (Negative) 06/05/21 14:06 Influenza B (RT-PCR) Negative (Negative) 06/05/21 14:06 Blood Type B POSITIVE 06/10/21 08:33 Antibody Screen Negative 06/10/21 08:33 Crossmatch See Detail 06/10/21 08:33 Rojas/IV: Voiding Method Bedside Commode Active Medications - Current Medications Current Medications: Generic Name Dose Route Start Last Admin Trade Name Freq PRN Reason Stop Dose Admin Albuterol 2.5 mg 05/30/21 05:14 Albuterol 2.5 Mg/3 Ml Nebu IH Q3HRT PRN Shortness Of Breath Alprazolam 0.5 mg 06/09/21 08:00 06/20/21 09:44 Alprazolam 0.5 Mg Tab PO 0.5 mg BID ELLIOTT Administration Amlodipine Besylate 10 mg 06/12/21 10:00 06/20/21 09:44 Amlodipine 10 Mg Tab PO 10 mg QDAY ELLIOTT Administration Aspirin 81 mg 05/30/21 10:00 06/20/21 09:45 Aspirin Ec 81 Mg Tab PO 81 mg QDAY ELLIOTT Administration Famotidine 20 mg 05/30/21 10:00 06/20/21 09:44 Famotidine 20 Mg Tab PO 20 mg BID ELLIOTT Administration Gabapentin 100 mg 06/10/21 22:00 06/20/21 05:56 Gabapentin 100 Mg Cap PO 100 mg Q8HR ELLIOTT Administration Heparin Sodium (Porcine) 4,500 unit 06/03/21 09:46 06/19/21 04:51 Heparin 10,000 Units/10 Ml Vial 40 unit/kg (4500 unit) 4,500 unit IV Administration Q6H PRN Anti-Xa Assay < 0.1 units/ml Heparin Sodium/Sodium Chloride 25,000 unit in 500 mls @ 30 mls/hr 06/03/21 10:00 06/20/21 09:49 Heparin/ 0.45% Nacl-25,000 Unit/500 Ml IV 2,400 units/hr TITR ELLIOTT 48 mls/hr Administration Protocol 1,500 UNITS/HR Cefazolin Sodium 2 gm/ Sodium 100 mls @ 200 mls/hr 06/08/21 12:00 06/20/21 05:56 Chloride IV 07/19/21 18:29 200 mls/hr Q6HR ELLIOTT Administration Protocol Levetiracetam 500 mg 05/30/21 10:00 06/20/21 09:45 Levetiracetam 500 Mg Tab PO 500 mg BID ELLIOTT Administration Levothyroxine Sodium 150 mcg 06/06/21 06:00 06/20/21 05:56 Levothyroxine 150 Mcg Tab PO 150 mcg DAILY@0600 ELLIOTT Administration Morphine Sulfate 2 mg 06/03/21 09:30 06/20/21 04:25 Morphine 2 Mg/1 Ml Inj IV 2 mg Q8H PRN Administration Pain, Moderate (4-6) Ondansetron HCl 4 mg 06/05/21 08:00 06/17/21 00:14 Ondansetron 4 Mg/2 Ml Inj IV 4 mg Q4H PRN Administration Nausea And Vomiting Propranolol HCl 40 mg 05/30/21 10:00 06/20/21 09:45 Propranolol 40 Mg Tab PO 40 mg BID ELLIOTT Administration Quetiapine Fumarate 100 mg 05/30/21 10:00 06/20/21 09:45 Quetiapine 100 Mg Tab PO 100 mg QAM ELLIOTT Administration Sodium Chloride 10 ml 05/30/21 10:00 06/20/21 09:46 Sodium Chloride 0.9% 10 Ml Flush Syringe IV 10 ml BID ELLIOTT Administration Sodium Chloride 10 ml 05/30/21 05:14 Sodium Chloride 0.9% 10 Ml Flush Syringe IV PRN PRN LINE FLUSH Tramadol HCl 100 mg 06/09/21 08:00 06/20/21 09:45 Tramadol 50 Mg Tab PO 100 mg BID ELLIOTT Administration Warfarin Sodium 20 mg 06/20/21 17:00 Warfarin 10 Mg Tab PO 06/21/21 16:59 DAILY@1700 NR Warfarin Sodium 7.5 mg 06/20/21 17:00 Warfarin 7.5 Mg Tab PO 06/21/21 16:59 DAILY@1700 NR Nutrition/Malnutrition Assess - Dietary Evaluation Nutrition/Malnutrition Findings: Nutrition Notes Start: 05/31/21 12:39 Freq: Status: Active Protocol: Document 06/14/21 07:31 KING (Rec: 06/14/21 07:42 [email or web address] [id number]) Nutrition Notes Initial or Follow up Reassessment Current Diagnosis Sepsis,Hypertension Other Pertinent Diagnosis Pulmonary embolism, Chest pain , Seizure D/O, Anxiety, Hypothyroidism Current Diet Renal Labs/Tests No current available Pertinent Medications Reviewed Height 5 ft 7 in Weight 111 kg Mcdonald Body Weight (kg) 61.36 BMI 38.3 Weight Status Obese Subjective/Other Information Pt has consumed 50% of meals since last assessment. Not sure why pt prescribed renal diet on 06/11; no mention of renal dysfunction in MD notes. Cr lab increased to 1.4 on but is trending downward. Percent of energy/protein needs met: 58% energy 56% pro Burn Absent Trauma Absent Current % PO Fair (50-74%) #1 Nutrition Diagnosis Inadequate protein-energy intake Etiology medical dx, anxiety As Evidenced by Signs and Symptoms PO intake meeting <75% estimated energy and pro needs Is patient on ventilator? No Is Patient Ambulatory and/or Out of Bed Yes REE-([place]-St. Jeor-ambulatory/OOB) [ 2356.419 [id number]] Kcal/Kg value to use for calculation 16 Approximate Energy Requirements Using 1776 kcal/Kg Calculation Used for Recommendations Kcal/kg Additional Notes Pro needs 0.8-1g/kg adjBW: 69- 86g/day Fluid needs 1ml/kcal Nutrition Intervention Change Diet Order: Continue current diet order Add Supplement/Snack (indicate name/kcal Ensure High Protein once daily /protein ) Provides kCal: 160 Provides Protein (gm) 16 Goal #1 PO intake of meals plus ONS to meet at least 75% energy and pro needs Follow-Up By: 06/21/21 Additional Comments F/U: intakes (meals/ONS), renal function and need for renal diet, wt
--- NOTE | 2021-06-20 15:11 | Progress Note ---
Assessment and Plan 40 years old female with past medical history of hypertension, DVT, PE, GERD Hyperthyroidismwas brought to the hospital because of chest pain, retrosternal, sharp, radiating to back, 10/10, worsened by deep breaths, not relieved by anything, associated with SOB. Denies palpitations, diaphoresis. Endorses bilateral leg swelling, pain in her calves. Denies recent travel, immobilization, surgery, hospitalization, Hormonal contraceptive use. In the emergency room initial CT scan of the chest shows acute bilateral pulmonary thromboemboli with evidence of mild right ventricular strain. Scattered pneumonitis noted throughout the both lungs. Admitted the patient to the medical telemetry put the patient on IV heparin . Ordered echocardiogram Past Surgical History: Other (Left arm surgery 02/2017, Right knee, Rt leg. 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 Patient awake., on 3 litres O2.O2 saturation recorded 96%. Still complaining some shortness of breath and chest pain. Patient afebrile. No leukocytosis. Blood pressure 117/51, Pulse 62 , Respirations 24. Patient is on I/V heparin, cefazolin, famotidine and warfarin. - Patient Problems (1) Pulmonary embolism Current Visit: Yes Status: Acute Plan to address problem: Patient is on I/V Heparin and PO warfarin. (2) Acute chest pain Current Visit: No Status: Acute Plan to address problem: Cardiology also consulted. (3) Abnormality of thoracic aorta Current Visit: No Status: Acute Plan to address problem: Patient has history of aortic dissection and TEVAR procedure. (4) Asthma Current Visit: No Status: Acute Plan to address problem: Albuterol inhaler 2 puffs po qid prn for shortness of breath. (5) Cardiomyopathy Current Visit: No Status: Acute Plan to address problem: Management as per cardiology. (6) DVT, bilateral lower limbs Current Visit: No Status: Acute Plan to address problem: Patient is on I/V Heparin. H/O IVC filter. 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 (8) Nicotine dependence unspecified, with withdrawal Current Visit: No Status: Acute Qualifiers: Plan to address problem: Counseled to stop smoking. (9) Obesity hypoventilation syndrome Current Visit: No Status: Acute Plan to address problem: ABGs on room air during day time. Recommend sleep study as out patient. Recommend to loose weight. Recommend not to drive or operate heavy equipment with sleepiness. Avoid alcohol, sedatives and Narcotics. Explained sleep hygiene. (10) Seizure disorder Current Visit: No Status: Acute Plan to address problem: Management as per primary care and neurology. (11) Bipolar disorder Current Visit: No Status: Chronic Qualifiers: Active/Remission status: in remission of unspecified degree Qualified Code(s): F31.70 - Bipolar disorder, currently in remission, most recent episode unspecified Plan to address problem: Management as per primary care and psychiatry. (12) GERD (gastroesophageal reflux disease) Current Visit: No Status: Chronic Qualifiers: Esophagitis presence: without esophagitis Qualified Code(s): K21.9 - Gastro-esophageal reflux disease without esophagitis Plan to address problem: Patient is on Famotidine. (13) Hypothyroidism (acquired) Current Visit: Yes Status: Acute Plan to address problem: Patient has history of thyrotoxicosis. Patient presently is hypothyroid. Patient is on levothyroxine. Subjective Date of service: 06/20/21 Principal diagnosis: Sepsis; Acute P.E.; Chest pain; H/O DVT; Seizures; Hypothyroidism; Obesity Interval history: 40 years old female obese with past medical history of hypertension, DVT, PE, GERD Hyperthyroidism was brought to the hospital because of chest pain, retrosternal pain, sharp, radiating to back, 10/10, worsened by deep breaths, not relieved by anything, associated with SOB. Denies palpitations, diaphoresis. Endorses bilateral leg swelling, pain in her calves. Denies recent travel, immobilization, surgery, hospitalization, Hormonal contraceptive use. In the emergency room initial CT scan of the chest shows acute bilateral pulmonary thromboemboli with evidence of mild right ventricular strain. Scattered pneumonitis noted throughout the both lungs. Admitted the patient to the medical telemetry put the patient on IV heparin . Ordered echocardiogram Past Surgical History: Other (Left arm surgery 02/2017, Right knee, Rt leg. 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 Patient awake., on 3 litres O2.O2 saturation recorded 96%. Still complaining some shortness of breath and chest pain. Patient afebrile. No leukocytosis. Blood pressure 117/51, Pulse 62 , Respirations 24. Patient is on I/V heparin, cefazolin, famotidine and warfarin. Objective Vital Signs - 12hr 06/20/21 06/20/21 06/20/21 04:38 06:00 08:14 Temperature 98.5 F Pulse Rate 53 L 68 Respiratory 18 Rate Blood Pressure 140/63 O2 Sat by Pulse 99 99 Oximetry 06/20/21 06/20/21 06/20/21 09:44 11:37 13:19 Temperature 98.3 F Pulse Rate 68 62 Respiratory 24 Rate Blood Pressure 140/80 117/51 O2 Sat by Pulse 100 96 Oximetry Constitutional: no acute distress, alert Eyes: non-icteric ENT: oropharynx moist Neck: supple, no lymphadenopathy, no JVD, other (large neck circumference; RIJ CVL) Effort: mildly labored Ascultation: Bilateral: diminished breath sounds Percussion: Bilateral: not dull Cardiovascular: regular rate and rhythm Gastrointestinal: normoactive bowel sounds, soft, non-tender, other (distended but soft) Integumentary: normal Extremities: no cyanosis, no edema, pulses normal, no ischemia or petechiae Neurologic: non-focal exam (grossly), pupils equal and round, CN II-XII normal, motor strength normal and Psychiatric: other (Sleeping at this time.) CBC and BMP: 06/20/21 05:00 06/20/21 05:00 ABG, PT/INR, D-dimer: ABG ABG pH 7.401 pH Units (7.350-7.450) 06/15/21 10:28 ABG pCO2 46.2 mm Hg 06/15/21 10:28 ABG pO2 41.6 mm Hg (80.0-90.0) L 06/15/21 10:28 ABG O2 Saturation 69.2 % (95.0-99.0) L 06/15/21 10:28 PT/INR, D-dimer PT 15.5 Sec. (12.2-14.9) H 06/20/21 05:00 INR 1.10 (0.87-1.13) 06/20/21 05:00 Abnormal lab findings: Abnormal Labs 05/29/21 05/29/21 05/29/21 23:24 23:24 23:29 WBC RBC Hgb 8.8 L Hct 28.7 L MCV 74 L MCH 23 L RDW 26.4 H Seg Neuts % (Manual) 75.0 H Lymphocytes % (Manual) Eosinophils % (Manual) Seg Neutrophils # Man Lymphocytes # (Manual) Eosinophils # (Manual) PT INR APTT 20.9 L Heparin Anti-Xa Level ABG pO2 ABG HCO3 ABG O2 Saturation ABG Hemoglobin Oxyhemoglobin Sodium Chloride Carbon Dioxide 20 L Creatinine Glucose Calcium ALT Total Protein Albumin 3.5 L TSH Vancomycin Trough Crossmatch 05/30/21 05/30/21 05/30/21 08:25 08:25 13:35 WBC RBC Hgb 8.8 L Hct 27.5 L MCV MCH RDW Seg Neuts % (Manual) Lymphocytes % (Manual) Eosinophils % (Manual) Seg Neutrophils # Man Lymphocytes # (Manual) Eosinophils # (Manual) PT 15.4 H INR APTT 107.1 H* Heparin Anti-Xa Level 0.82 H ABG pO2 ABG HCO3 ABG O2 Saturation ABG Hemoglobin Oxyhemoglobin Sodium Chloride Carbon Dioxide Creatinine Glucose Calcium ALT Total Protein Albumin TSH Vancomycin Trough Crossmatch 05/30/21 05/31/21 05/31/21 20:57 06:40 06:40 WBC 13.0 H RBC Hgb 8.9 L Hct 28.5 L MCV 74 L MCH 23 L RDW 25.7 H Seg Neuts % (Manual) 77.0 H Lymphocytes % (Manual) Eosinophils % (Manual) Seg Neutrophils # Man 10.0 H Lymphocytes # (Manual) Eosinophils # (Manual) PT INR APTT 52.6 H Heparin Anti-Xa Level 0.15 L 0.74 H ABG pO2 ABG HCO3 ABG O2 Saturation ABG Hemoglobin Oxyhemoglobin Sodium Chloride Carbon Dioxide Creatinine Glucose Calcium ALT Total Protein Albumin TSH Vancomycin Trough Crossmatch 06/01/21 06/01/21 06/02/21 09:55 10:27 06:15 WBC RBC Hgb 9.4 L Hct MCV MCH RDW Seg Neuts % (Manual) Lymphocytes % (Manual) Eosinophils % (Manual) Seg Neutrophils # Man Lymphocytes # (Manual) Eosinophils # (Manual) PT INR APTT Heparin Anti-Xa Level 0.13 L 0.25 L ABG pO2 ABG HCO3 ABG O2 Saturation ABG Hemoglobin Oxyhemoglobin Sodium Chloride Carbon Dioxide Creatinine Glucose Calcium ALT Total Protein Albumin TSH Vancomycin Trough Crossmatch 06/02/21 06/03/21 06/04/21 23:30 Unknown 07:39 WBC RBC Hgb 8.5 L Hct 28.0 L MCV MCH RDW Seg Neuts % (Manual) Lymphocytes % (Manual) Eosinophils % (Manual) Seg Neutrophils # Man Lymphocytes # (Manual) Eosinophils # (Manual) PT 15.0 H INR APTT Heparin Anti-Xa Level 0.19 L ABG pO2 ABG HCO3 ABG O2 Saturation ABG Hemoglobin Oxyhemoglobin Sodium Chloride Carbon Dioxide Creatinine Glucose Calcium ALT Total Protein Albumin TSH Vancomycin Trough Crossmatch 06/05/21 06/05/21 06/05/21 04:07 04:07 10:40 WBC RBC Hgb 8.4 L Hct 27.3 L MCV MCH RDW Seg Neuts % (Manual) Lymphocytes % (Manual) Eosinophils % (Manual) Seg Neutrophils # Man Lymphocytes # (Manual) Eosinophils # (Manual) PT 17.7 H INR 1.30 H APTT Heparin Anti-Xa Level ABG pO2 ABG HCO3 ABG O2 Saturation ABG Hemoglobin Oxyhemoglobin Sodium Chloride Carbon Dioxide Creatinine Glucose Calcium ALT Total Protein Albumin TSH 0.034 L Vancomycin Trough Crossmatch 06/05/21 06/05/21 06/06/21 10:40 11:01 04:00 WBC 14.0 H RBC 3.37 L Hgb 7.5 L Hct 24.8 L MCV 74 L MCH 22 L RDW 25.0 H Seg Neuts % (Manual) 94.0 H Lymphocytes % (Manual) 3.0 L Eosinophils % (Manual) Seg Neutrophils # Man 13.2 H Lymphocytes # (Manual) 0.4 L Eosinophils # (Manual) PT 17.4 H INR 1.27 H APTT Heparin Anti-Xa Level ABG pO2 ABG HCO3 ABG O2 Saturation ABG Hemoglobin Oxyhemoglobin Sodium 135 L Chloride Carbon Dioxide 20 L Creatinine Glucose Calcium 7.8 L ALT Total Protein Albumin TSH Vancomycin Trough Crossmatch 06/07/21 06/07/21 06/08/21 12:55 12:55 04:52 WBC RBC Hgb 7.1 L Hct 23.6 L MCV MCH RDW Seg Neuts % (Manual) Lymphocytes % (Manual) Eosinophils % (Manual) Seg Neutrophils # Man Lymphocytes # (Manual) Eosinophils # (Manual) PT 19.7 H INR 1.48 H APTT Heparin Anti-Xa Level ABG pO2 ABG HCO3 ABG O2 Saturation ABG Hemoglobin Oxyhemoglobin Sodium Chloride 116.6 H Carbon Dioxide 18 L Creatinine Glucose Calcium 7.4 L ALT Total Protein 4.7 L Albumin 2.7 L TSH Vancomycin Trough Crossmatch 06/08/21 06/09/21 06/09/21 04:52 06:46 06:46 WBC RBC 3.09 L Hgb 6.9 L Hct 22.4 L MCV 72 L MCH 22 L RDW 25.0 H Seg Neuts % (Manual) Lymphocytes % (Manual) Eosinophils % (Manual) Seg Neutrophils # Man Lymphocytes # (Manual) Eosinophils # (Manual) PT INR APTT Heparin Anti-Xa Level < 0.10 L ABG pO2 ABG HCO3 ABG O2 Saturation ABG Hemoglobin Oxyhemoglobin Sodium Chloride Carbon Dioxide Creatinine Glucose Calcium ALT Total Protein Albumin TSH Vancomycin Trough 25.1 H Crossmatch 06/09/21 06/10/21 06/10/21 Unknown 08:31 08:31 WBC RBC 3.17 L Hgb 7.1 L Hct 22.9 L MCV 72 L MCH 22 L RDW 25.5 H Seg Neuts % (Manual) 71.0 H Lymphocytes % (Manual) Eosinophils % (Manual) Seg Neutrophils # Man Lymphocytes # (Manual) 1.0 L Eosinophils # (Manual) PT 20.4 H 17.6 H INR 1.54 H 1.29 H APTT Heparin Anti-Xa Level ABG pO2 ABG HCO3 ABG O2 Saturation ABG Hemoglobin Oxyhemoglobin Sodium Chloride Carbon Dioxide Creatinine Glucose Calcium ALT Total Protein Albumin TSH Vancomycin Trough Crossmatch 06/10/21 06/10/21 06/11/21 08:31 08:33 08:25 WBC RBC Hgb Hct MCV MCH RDW Seg Neuts % (Manual) Lymphocytes % (Manual) Eosinophils % (Manual) Seg Neutrophils # Man Lymphocytes # (Manual) Eosinophils # (Manual) PT 16.3 H INR 1.17 H APTT Heparin Anti-Xa Level ABG pO2 ABG HCO3 ABG O2 Saturation ABG Hemoglobin Oxyhemoglobin Sodium Chloride 111.3 H Carbon Dioxide 21 L Creatinine 1.4 H Glucose Calcium ALT Total Protein 5.7 L D Albumin 3.2 L TSH Vancomycin Trough Crossmatch See Detail 06/12/21 06/12/21 06/14/21 05:45 05:45 Unknown WBC RBC Hgb Hct MCV MCH RDW Seg Neuts % (Manual) Lymphocytes % (Manual) Eosinophils % (Manual) Seg Neutrophils # Man Lymphocytes # (Manual) Eosinophils # (Manual) PT 16.1 H INR 1.16 H APTT Heparin Anti-Xa Level 0.26 L ABG pO2 ABG HCO3 ABG O2 Saturation ABG Hemoglobin Oxyhemoglobin Sodium Chloride Carbon Dioxide Creatinine 1.3 H Glucose Calcium ALT Total Protein Albumin TSH Vancomycin Trough Crossmatch 06/14/21 06/14/21 06/15/21 Unknown Unknown 03:56 WBC RBC 3.50 L Hgb 8.2 L Hct 26.3 L MCV 75 L MCH 24 L RDW 27.6 H Seg Neuts % (Manual) Lymphocytes % (Manual) Eosinophils % (Manual) Seg Neutrophils # Man Lymphocytes # (Manual) Eosinophils # (Manual) PT 15.4 H INR APTT Heparin Anti-Xa Level ABG pO2 ABG HCO3 ABG O2 Saturation ABG Hemoglobin Oxyhemoglobin Sodium Chloride Carbon Dioxide Creatinine Glucose 107 H Calcium ALT < 5 L Total Protein 5.9 L Albumin 3.5 L TSH Vancomycin Trough Crossmatch 06/15/21 06/15/21 06/16/21 03:56 10:28 03:15 WBC RBC 3.47 L Hgb 8.3 L Hct 25.8 L MCV 74 L MCH 24 L RDW 27.3 H Seg Neuts % (Manual) 72.0 H Lymphocytes % (Manual) Eosinophils % (Manual) 6.0 H Seg Neutrophils # Man Lymphocytes # (Manual) Eosinophils # (Manual) 0.5 H PT 16.7 H INR 1.21 H APTT Heparin Anti-Xa Level 0.17 L ABG pO2 41.6 L ABG HCO3 28.1 H ABG O2 Saturation 69.2 L ABG Hemoglobin 8.5 L Oxyhemoglobin 67.6 L Sodium Chloride Carbon Dioxide Creatinine Glucose Calcium ALT Total Protein Albumin TSH Vancomycin Trough Crossmatch 06/16/21 06/16/21 06/17/21 03:15 Unknown 00:25 WBC RBC Hgb 8.7 L Hct 28.5 L MCV 75 L MCH 23 L RDW 27.3 H Seg Neuts % (Manual) 72.0 H Lymphocytes % (Manual) Eosinophils % (Manual) Seg Neutrophils # Man Lymphocytes # (Manual) Eosinophils # (Manual) PT INR APTT Heparin Anti-Xa Level < 0.10 L 0.80 H ABG pO2 ABG HCO3 ABG O2 Saturation ABG Hemoglobin Oxyhemoglobin Sodium Chloride Carbon Dioxide Creatinine Glucose Calcium ALT Total Protein Albumin TSH Vancomycin Trough Crossmatch 06/17/21 06/18/21 06/18/21 Unknown Unknown Unknown WBC RBC Hgb 8.9 L Hct 28.8 L MCV 75 L MCH 23 L RDW 27.4 H Seg Neuts % (Manual) 72.0 H Lymphocytes % (Manual) Eosinophils % (Manual) 6.0 H Seg Neutrophils # Man Lymphocytes # (Manual) 1.1 L Eosinophils # (Manual) PT 16.1 H 15.4 H INR 1.16 H APTT Heparin Anti-Xa Level 0.21 L ABG pO2 ABG HCO3 ABG O2 Saturation ABG Hemoglobin Oxyhemoglobin Sodium Chloride Carbon Dioxide Creatinine Glucose Calcium ALT Total Protein Albumin TSH Vancomycin Trough Crossmatch 06/18/21 06/20/21 06/20/21 Unknown 05:00 05:00 WBC RBC Hgb 9.2 L Hct 30.0 L MCV 76 L MCH 23 L RDW 26.8 H Seg Neuts % (Manual) Lymphocytes % (Manual) 37.0 H Eosinophils % (Manual) 8.0 H Seg Neutrophils # Man Lymphocytes # (Manual) Eosinophils # (Manual) PT 15.5 H INR APTT Heparin Anti-Xa Level ABG pO2 ABG HCO3 ABG O2 Saturation ABG Hemoglobin Oxyhemoglobin Sodium 134 L Chloride 96.5 L Carbon Dioxide Creatinine Glucose Calcium ALT Total Protein Albumin TSH Vancomycin Trough Crossmatch 06/20/21 10:00 WBC RBC Hgb Hct MCV MCH RDW Seg Neuts % (Manual) Lymphocytes % (Manual) Eosinophils % (Manual) Seg Neutrophils # Man Lymphocytes # (Manual) Eosinophils # (Manual) PT INR APTT Heparin Anti-Xa Level > 2.00 H ABG pO2 ABG HCO3 ABG O2 Saturation ABG Hemoglobin Oxyhemoglobin Sodium Chloride Carbon Dioxide Creatinine Glucose Calcium ALT Total Protein Albumin TSH Vancomycin Trough Crossmatch Allied health notes reviewed: nursing
[2021-06-20] MEDS ORDERED: WARFARIN 10 MG TAB PO NR (17:00)
[2021-06-20] MEDS ORDERED: WARFARIN 7.5 MG TAB PO NR (17:00)
[2021-06-21] MEDS: GABAPENTIN 100 MG CAP PO SCH ×3 (05:00→21:58)
[2021-06-21] MEDS: MORPHINE 2 MG/1 ML INJ IV PRN ×2 (05:00→12:43)
[2021-06-21] MEDS: LEVOTHYROXINE 150 MCG TAB PO SCH (05:00)
[2021-06-21] MEDS: amLODIPine 10 MG TAB PO SCH (09:36)
--- NOTE | 2021-06-21 09:36 | Progress Note ---
Assessment and Plan Assessment and plan: 40 years old female with past medical history of hypertension, PE x2, (R lung 05/2016, L lung 01/2017--on coumadin), R leg DVT 03/2017, Graves Disease, heart murmur, aortic dissection, PERICARDITIS, thyroid storm, and GERD admitted for acute bilateral pulmonary thromboemboli with evidence of mild right ventricular strain on heparin gtt and warfarin. Assessment and Plan: Sepsis, MSSA bacteremia -Etiology unclear, line infection vs endocarditis, infected TEVAR graft. -06/04 bcx: 3/ bottles MSSA - 06/07 bcx: NGTD - urine culture: NGTD -TTE negative for valvular vegetations -HANK negative for endocarditis - ID following -Continue Ancef -DAVID PICC line noted, remove RIJ CVC Hypotension (resolved) -Patient with low blood pressure at night -IVF started -avoid antihypotensives -labetalol currently held Acute pulmonary embolism History of DVT on warfarin Troponin unremarkable, chest x-ray unremarkable, bilateral lower extremity venous Dopplers unremarkable for acute DVT CT angio chest revealing acute bilateral pulmonary emboli with evidence of right heart strain Home medication of warfarin 7.5 mg daily; however, INR 1.03. Patient endorses being compliant with her anticoagulation. Continue heparin drip and bridged warfarin daily until therapeutic (goal 2.53.5). TTE without evidence of right heart strain Patient needs to be taking BOTH warfarin and heparin until INR goal of 2.5 achieved. - Remains subtherapeutic despite Heparin and Warfarin - Hematology consulted for possible warfarin resistance history of mechanical heart valve - goal inr 2.5. Seizure disorder Anxiety Continue home medications: Keppra 500 mg twice daily, Quetiapine 100 mg every morning and 300 mg nightly, alprazolam 0.5 mg 3 times daily History of aortic dissection s/p tevar. Hypothyroidism -resume home levothyroxine microcytic anemia -stable Transfuse if hemoglobin less than 7 or patient become symptomatic Morbid obesity Weight loss counseling Exercise counseling - BMI 39.1 - Counseled patient on the importance of weight loss, incorporating exercise, and dietary changes (lean meats, fresh fruits and vegetables, and water intake). Patient expresses understanding. Hospital Course: 06/05: Is unclear to me why the patient was transferred to the [facility] as I do not have any clear documentation to the results but in effect I was told by the nurse that the patient had pulled out his for her femoral line and did not have an access. Patient appears to have been having fever for a few days no known etiology we will proceed with a sepsis work-up although closely reviewing her case shows a history of thyroid storm in the past and she has not been receiving her thyroid medication while she does not have confusion at this time she does have tachycardia and tachypnea. We will give her a dose of IV levothyroxine today and start her daily dose of levothyroxine a.m. She has been on her propranolol although her home dose appears confusing as she gets 40 mg once daily and also 20 mg twice a day will discuss with her to clarify this and also with her pharmacy. She did have a right IJ triple-lumen catheter placed yesterday I discussed with her in the setting of well-documented by the nurse that she takes Midol at home which contains acetaminophen she is agreeable to trial acetaminophen as she wants to come off the cooling blanket. I also consulted ID and ordered a urinalysis with urine culture and some fluid support. I reviewed her CT scan and echocardiogram while the CT mentions the pulmonary embolism with mild right heart strain the echo shows a RVSP of 32 mmHg. I will proceed with consulting pulmonary in her case she would definitely need a business information consultant outpatient. She continues on heparin drip while awaiting for therapeutic INR. In the meantime continue with antibiotic Right internal jugular vein triple-lumen catheter placement under ultrasound guidance 06/06: Patient seen and examined, showing some improvement, will follow cultures result, Continue abx, clinical stable, ID input, close eye on Hemoglobin. WBC mildly trended up. will transfer back to [facility]. 06/07: Continue supportive care, awaiting Cultures for ID and sensitivity in the meantime continue antibiotic. Am LABS. Patient continues on heparin drip until INR is therapeutic. I encouraged her to ambulate in her room and also set up on the chair. Cultures for COVID was negative. We will obtain PT OT evaluation. In short summary patient is a 40-year-old female with hypertension pulmonary embolism lower extremity DVT in the past on Coumadin who presented with shortness of breath diagnosed with pulmonary embolism admitted intermittently sepsis doubt septic emboli currently on antibiotics. Restarted on her thyroid medication with no evidence of thyroid storm. 06/08: resting comfortably on encounter. Afebrile today. Vital signs improved. 94% on 3L/min NC. Pain medication appears to be excessive as patient is heavily sedated, will scale back pain medication. D/w cardiology Dr Canseco regarding concern for endocarditis and possible infected TEVAR graft as potential source of infection. Consult placed for HANK. Will continue to follow culture data. Continue IV vancomycin per ID direction. INR remains subtherapeutic for treatment of DVT/PE but increased to 1.48, will continue warfarin at current do jerald and heparin gtt at this time. 06/09: continue therapy for MSSA bacteremia. Awaiting HANK completion. INR 1.54, warfarin 12.5 mg dose given today. Anemic today 6.9, ordered 1 unit prbc. Patient denies any rectal bleeding, bleeding from lines, hematemesis. Suspect anemia of chronic disease and possibly iatrogenic induced from multiple blood draw/line placement attempts. Lower suspicion for occult hematoma but will order CTAP. 06/10: Abx orders noted by ID. INR remains subtherapetuic, did not receive warfarin dose for some apparent reason. Pharmacy will give 15 mg dose today. Occult bleed r/o on ctap. No rectal bleeding reported. Will transfuse 1 unit prbc. Restart heparin gtt. Will follow up results of HANK from today. 06/11: HANK negative for endocarditis. INR subtherapuetic. unfortunately patient has missed last two day of warfarin dosing and inr reflects this. Patient could also be warfarin resistant. Patient needs to be receiving BOTH warfarin and heparin gtt until INR goal of 2.5 achieved. D/w pharmacy, will continue with 15 mg dosing at this time. Continue Iv abx. Discharge plan is for early next week. 06/12: Hypertensive this AM, added amlodipine for better BP control. INR 1.16. Continue heparin gtt while transitioning to warfarin. Plan for discharge early next week. CM working on OP IV abx arrangement. 06/13: Continue heparin gtt and warfarin. INR remains subtherapeutic. 06/14: Patient remains subtherapeutic despite heparin gtt and Warfarin. Will consult hematology for possible warfarin resistance and for further recs. Continue heparin gtt and warfarin for now. Patient remains on IV Abx, ancef per ID, DAVID PICC line noted remove RIJ CVC. 06/15: Continue heparin drip and warfarin until INR at goal of 2.5. . Patient remains on IV Abx, ancef per ID, DAVID PICC line noted remove RIJ CVC. 06/16: Continue heparin drip and warfarin until INR at goal of 2.5. . Patient remains on IV Abx, ancef per ID, DAVID PICC line noted remove RIJ CVC. Continue Keppra as needed for AEDs. Continue thyroid replacement therapy. 06/17: Continue heparin drip and warfarin until INR at goal of 2.5. . Patient remains on IV Abx, ancef per ID, DAVID PICC line noted remove RIJ CVC. Continue Keppra as needed for AEDs. 06/18: Continue heparin drip and warfarin until INR at goal of 2.5. . Patient remains on IV Abx, ancef per ID, DAVID PICC line noted remove RIJ CVC. Continue Keppra as needed for AEDs. INR actually decreased this morning. Pharmacy to do se Coumadin per protocol 06/19: Continue heparin drip and warfarin until INR at goal of 2.5. . Patient remains on IV Abx, ancef per ID and should be treated for total of 6 weeks. End date 07/19/2021. Case management to arrange for home IV antibiotics when INR therapeutic and patient ready for discharge. 06/20: Continue heparin drip and warfarin until INR at goal of 2.5. . Patient remains on IV Abx, ancef per ID and should be treated for total of 6 weeks. End date 07/19/2021. Case management to arrange for home IV antibiotics when INR therapeutic and patient ready for discharge. 06/21: INR from yesterday is 1.10. Follow-up INR today. Continue heparin drip and warfarin until INR at goal of 2.5. . Patient remains on IV Abx, ancef per ID and should be treated for total of 6 weeks. End date 07/19/2021. Case management to arrange for home IV antibiotics when INR therapeutic and patient ready for discharge. History Interval history: No new issues overnight Hospitalist Physical - Constitutional Vitals: Temp Pulse Resp BP Pulse Ox 97.7 F 55 L 18 116/63 100 06/21/21 04:45 06/21/21 06:00 06/21/21 04:45 06/21/21 04:45 06/21/21 08:02 General appearance: Present: no acute distress, well-nourished, obese - EENT Eyes: Present: PERRL, EOM intact ENT: hearing intact, clear oral mucosa, dentition normal - Neck Neck: Present: supple, normal ROM - Respiratory Respiratory effort: normal Respiratory: bilateral: CTA - Cardiovascular Rhythm: regular Heart Sounds: Present: S1 & S2. Absent: gallop, rub - Extremities Extremities: no ischemia, No edema, Full ROM - Abdominal General gastrointestinal: soft, non-tender, non-distended, normal bowel sounds - Integumentary Integumentary: Present: clear, warm, dry - Neurologic Neurologic: CNII-XII intact, moves all extremities HEART Score - HEART Score Troponin: Troponin T < 0.010 ng/mL (0.00-0.029) 05/30/21 04:46 Results - Labs CBC & Chem 7: 06/20/21 05:00 06/20/21 05:00 Labs: Laboratory Last Values WBC 5.2 K/mm3 (4.5-11.0) 06/20/21 05:00 RBC 3.95 M/mm3 (3.65-5.03) 06/20/21 05:00 Hgb 9.2 gm/dl (10.1-14.3) L 06/20/21 05:00 Hct 30.0 % (30.3-42.9) L 06/20/21 05:00 MCV 76 fl (79-97) L 06/20/21 05:00 MCH 23 pg (28-32) L 06/20/21 05:00 MCHC 31 % (30-34) 06/20/21 05:00 RDW 26.8 % (13.2-15.2) H 06/20/21 05:00 Plt Count 409 K/mm3 (140-440) 06/20/21 05:00 Add Manual Diff Complete 06/20/21 05:00 Total Counted 100 06/20/21 05:00 Seg Neuts % (Manual) 51.0 % (40.0-70.0) 06/20/21 05:00 Band Neutrophils % 0 % 06/20/21 05:00 Lymphocytes % (Manual) 37.0 % (13.4-35.0) H 06/20/21 05:00 Reactive Lymphs % (Man) 0 % 06/20/21 05:00 Monocytes % (Manual) 4.0 % (0.0-7.3) 06/20/21 05:00 Eosinophils % (Manual) 8.0 % (0.0-4.3) H 06/20/21 05:00 Basophils % (Manual) 0 % (0.0-1.8) 06/20/21 05:00 Metamyelocytes % 0 % 06/20/21 05:00 Myelocytes % 0 % 06/20/21 05:00 Promyelocytes % 0 % 06/20/21 05:00 Blast Cells % 0 % 06/20/21 05:00 Nucleated RBC % Not Reportable 06/20/21 05:00 Seg Neutrophils # Man 2.7 K/mm3 (1.8-7.7) 06/20/21 05:00 Band Neutrophils # 0.0 K/mm3 06/20/21 05:00 Lymphocytes # (Manual) 1.9 K/mm3 (1.2-5.4) 06/20/21 05:00 Abs React Lymphs (Man) 0.0 K/mm3 06/20/21 05:00 Monocytes # (Manual) 0.2 K/mm3 (0.0-0.8) 06/20/21 05:00 Eosinophils # (Manual) 0.4 K/mm3 (0.0-0.4) 06/20/21 05:00 Basophils # (Manual) 0.0 K/mm3 (0.0-0.1) 06/20/21 05:00 Metamyelocytes # 0.0 K/mm3 06/20/21 05:00 Myelocytes # 0.0 K/mm3 06/20/21 05:00 Promyelocytes # 0.0 K/mm3 06/20/21 05:00 Blast Cells # 0.0 K/mm3 06/20/21 05:00 WBC Morphology Not Reportable 06/20/21 05:00 Hypersegmented Neuts Not Reportable 06/20/21 05:00 Hyposegmented Neuts Not Reportable 06/20/21 05:00 Hypogranular Neuts Not Reportable 06/20/21 05:00 Smudge Cells Not Reportable 06/20/21 05:00 Toxic Granulation Not Reportable 06/20/21 05:00 Toxic Vacuolation Not Reportable 06/20/21 05:00 Dohle Bodies Not Reportable 06/20/21 05:00 Pelger-Huet Anomaly Not Reportable 06/20/21 05:00 Jaime Rods Not Reportable 06/20/21 05:00 Platelet Estimate Consistent w auto 06/20/21 05:00 Clumped Platelets Not Reportable 06/20/21 05:00 Plt Clumps, EDTA Not Reportable 06/20/21 05:00 Large Platelets Not Reportable 06/20/21 05:00 Giant Platelets Not Reportable 06/20/21 05:00 Platelet Satelliting Not Reportable 06/20/21 05:00 Plt Morphology Comment Not Reportable 06/20/21 05:00 RBC Morphology Not Reportable 06/20/21 05:00 Dimorphic RBCs Not Reportable 06/20/21 05:00 Polychromasia Not Reportable 06/20/21 05:00 Hypochromasia 1+ 06/20/21 05:00 Poikilocytosis Not Reportable 06/20/21 05:00 Anisocytosis 2+ 06/20/21 05:00 Microcytosis Not Reportable 06/20/21 05:00 Macrocytosis Not Reportable 06/20/21 05:00 Spherocytes Not Reportable 06/20/21 05:00 Pappenheimer Bodies Not Reportable 06/20/21 05:00 Sickle Cells Not Reportable 06/20/21 05:00 Target Cells Not Reportable 06/20/21 05:00 Tear Drop Cells Not Reportable 06/20/21 05:00 Ovalocytes Not Reportable 06/20/21 05:00 Helmet Cells Not Reportable 06/20/21 05:00 Graves-Almont Bodies Not Reportable 06/20/21 05:00 [place] Rings Not Reportable 06/20/21 05:00 Monument Cells Not Reportable 06/20/21 05:00 Bite Cells Not Reportable 06/20/21 05:00 Crenated Cell Not Reportable 06/20/21 05:00 Elliptocytes Not Reportable 06/20/21 05:00 Acanthocytes (Spur) Not Reportable 06/20/21 05:00 Rouleaux Not Reportable 06/20/21 05:00 Hemoglobin C Crystals Not Reportable 06/20/21 05:00 Schistocytes Not Reportable 06/20/21 05:00 Malaria parasites Not Reportable 06/20/21 05:00 Koffi Bodies Not Reportable 06/20/21 05:00 Hem Pathologist Commnt No 06/20/21 05:00 PT 15.5 Sec. (12.2-14.9) H 06/20/21 05:00 INR 1.10 (0.87-1.13) 06/20/21 05:00 APTT 52.6 Sec. (24.2-36.6) H 05/31/21 06:40 Fibrinogen 420 mg/dl (211-480) 06/16/21 03:15 Heparin Anti-Xa Level 0.59 U.I./ml (0.3-0.7) 06/21/21 03:30 ABG pH 7.401 pH Units (7.350-7.450) 06/15/21 10:28 ABG pCO2 46.2 mm Hg 06/15/21 10:28 ABG pO2 41.6 mm Hg (80.0-90.0) L 06/15/21 10:28 ABG HCO3 28.1 mmol/L (20.0-26.0) H 06/15/21 10:28 ABG O2 Saturation 69.2 % (95.0-99.0) L 06/15/21 10:28 ABG O2 Content 8.1 (0.0-44) 06/15/21 10:28 ABG Base Excess 2.9 mmol/L (-2.0-3.0) 06/15/21 10:28 ABG Hemoglobin 8.5 gm/dl (12.0-16.0) L 06/15/21 10:28 ABG Carboxyhemoglobin 1.7 % (0.0-5.0) 06/15/21 10:28 ABG Methemoglobin 0.7 % (0.0-1.5) 06/15/21 10:28 Oxyhemoglobin 67.6 % (95.0-99.0) L 06/15/21 10:28 FiO2 21 % 06/15/21 10:28 Sodium 140 mmol/L (137-145) 06/20/21 05:00 Potassium 4.3 mmol/L (3.6-5.0) 06/20/21 05:00 Chloride 103.9 mmol/L (98-107) 06/20/21 05:00 Carbon Dioxide 25 mmol/L (22-30) 06/20/21 05:00 Anion Gap 15 mmol/L 06/20/21 05:00 BUN 7 mg/dL (7-17) 06/20/21 05:00 Creatinine 0.7 mg/dL (0.6-1.2) 06/20/21 05:00 Estimated GFR > 60 ml/min 06/20/21 05:00 BUN/Creatinine Ratio 10 % 06/20/21 05:00 Glucose 90 mg/dL (65-100) 06/20/21 05:00 POC Glucose 77 mg/dL (70-105) 06/18/21 07:45 Lactic Acid 0.70 mmol/L (0.7-2.0) 06/05/21 10:40 Calcium 9.2 mg/dL (8.4-10.2) 06/20/21 05:00 Total Bilirubin < 0.20 mg/dL (0.1-1.2) 06/14/21 Unknown AST 8 units/L (5-40) 06/14/21 Unknown ALT < 5 units/L (7-56) L 06/14/21 Unknown Alkaline Phosphatase 73 units/L (35-129) 06/14/21 Unknown Troponin T < 0.010 ng/mL (0.00-0.029) 05/30/21 04:46 Total Protein 5.9 g/dL (6.3-8.2) L 06/14/21 Unknown Albumin 3.5 g/dL (3.9-5) L 06/14/21 Unknown Albumin/Globulin Ratio 1.5 % 06/14/21 Unknown Lipase 31 units/L (13-60) 05/30/21 04:41 TSH 0.034 mlU/mL (0.270-4.200) L 06/05/21 10:40 Free T4 1.29 ng/dL (0.76-1.46) 06/05/21 10:40 HCG, Qual Negative (Negative) 05/29/21 23:24 Urine Color Yellow (Yellow) 06/05/21 12:20 Urine Turbidity Slightly-cloudy (Clear) 06/05/21 12:20 Urine pH 6.0 (5.0-7.0) 06/05/21 12:20 Ur Specific [place] 1.004 (1.003-1.030) 06/05/21 12:20 Urine Protein <15 mg/dl mg/dL (Negative) 06/05/21 12:20 Urine Glucose (UA) Neg mg/dL (Negative) 06/05/21 12:20 Urine Ketones Neg mg/dL (Negative) 06/05/21 12:20 Urine Blood Mod (Negative) 06/05/21 12:20 Urine Nitrite Neg (Negative) 06/05/21 12:20 Urine Bilirubin Neg (Negative) 06/05/21 12:20 Urine Urobilinogen < 2.0 mg/dL (<2.0) 06/05/21 12:20 Ur Leukocyte Esterase Neg (Negative) 06/05/21 12:20 Urine WBC (Auto) 2.0 /HPF (0.0-6.0) 06/05/21 12:20 Urine RBC (Auto) 37.0 /HPF (0.0-6.0) 06/05/21 12:20 U Epithel Cells (Auto) 3.0 /HPF (0-13.0) 06/05/21 12:20 Urine Bacteria (Auto) 4+ /HPF (Negative) 06/05/21 12:20 Urine Mucus Few /HPF 06/05/21 12:20 Vancomycin Trough 25.1 ug/mL (5.0-20.0) H 06/08/21 04:52 LAURA Screen Negative (Negative) 06/05/21 15:10 Cardiolipid IgG Ab <2.0 GPL-U/mL (<20.0) 06/15/21 06:47 Cardiolipid IgA Ab <2.0 APL-U/mL (<20.0) 06/15/21 06:47 Cardiolipid IgM Ab <2.0 MPL-U/mL (<20.0) 06/15/21 06:47 Coronavirus (PCR) Negative (Negative) 06/05/21 07:26 Influenza A (Rapid) Negative (Negative) 06/05/21 14:06 Influenza A (RT-PCR) Negative (Negative) 06/05/21 14:06 Influenza B (Rapid) Negative (Negative) 06/05/21 14:06 Influenza B (RT-PCR) Negative (Negative) 06/05/21 14:06 Blood Type B POSITIVE 06/10/21 08:33 Antibody Screen Negative 06/10/21 08:33 Crossmatch See Detail 06/10/21 08:33 Rojas/IV: Voiding Method Bedside Commode Active Medications - Current Medications Current Medications: Generic Name Dose Route Start Last Admin Trade Name Freq PRN Reason Stop Dose Admin Albuterol 2.5 mg 05/30/21 05:14 Albuterol 2.5 Mg/3 Ml Nebu IH Q3HRT PRN Shortness Of Breath Alprazolam 0.5 mg 06/09/21 08:00 06/20/21 21:39 Alprazolam 0.5 Mg Tab PO 0.5 mg BID ELLIOTT Administration Amlodipine Besylate 10 mg 06/12/21 10:00 06/20/21 09:44 Amlodipine 10 Mg Tab PO 10 mg QDAY ELLIOTT Administration Aspirin 81 mg 05/30/21 10:00 06/20/21 09:45 Aspirin Ec 81 Mg Tab PO 81 mg QDAY ELLIOTT Administration Famotidine 20 mg 05/30/21 10:00 06/20/21 21:38 Famotidine 20 Mg Tab PO 20 mg BID ELLIOTT Administration Gabapentin 100 mg 06/10/21 22:00 06/21/21 05:00 Gabapentin 100 Mg Cap PO 100 mg Q8HR ELLIOTT Administration Heparin Sodium (Porcine) 4,500 unit 06/03/21 09:46 06/19/21 04:51 Heparin 10,000 Units/10 Ml Vial 40 unit/kg (4500 unit) 4,500 unit IV Administration Q6H PRN Anti-Xa Assay < 0.1 units/ml Heparin Sodium/Sodium Chloride 25,000 unit in 500 mls @ 30 mls/hr 06/03/21 10:00 06/21/21 04:00 Heparin/ 0.45% Nacl-25,000 Unit/500 Ml IV 2,100 units/hr TITR ELLIOTT 42 mls/hr Titration Protocol 1,500 UNITS/HR Cefazolin Sodium 2 gm/ Sodium 100 mls @ 200 mls/hr 06/08/21 12:00 06/21/21 05:01 Chloride IV 07/19/21 18:29 200 mls/hr Q6HR ELLITOT Administration Protocol Levetiracetam 500 mg 05/30/21 10:00 06/20/21 21:39 Levetiracetam 500 Mg Tab PO 500 mg BID ELLIOTT Administration Levothyroxine Sodium 150 mcg 06/06/21 06:00 06/21/21 05:00 Levothyroxine 150 Mcg Tab PO 150 mcg DAILY@0600 ELLIOTT Administration Morphine Sulfate 2 mg 06/03/21 09:30 06/21/21 05:00 Morphine 2 Mg/1 Ml Inj IV 2 mg Q8H PRN Administration Pain, Moderate (4-6) Ondansetron HCl 4 mg 06/05/21 08:00 06/17/21 00:14 Ondansetron 4 Mg/2 Ml Inj IV 4 mg Q4H PRN Administration Nausea And Vomiting Propranolol HCl 40 mg 05/30/21 10:00 06/20/21 21:44 Propranolol 40 Mg Tab PO 40 mg BID ELLIOTT Administration Quetiapine Fumarate 100 mg 05/30/21 10:00 06/20/21 09:45 Quetiapine 100 Mg Tab PO 100 mg QAM ELLIOTT Administration Sodium Chloride 10 ml 05/30/21 10:00 06/20/21 21:41 Sodium Chloride 0.9% 10 Ml Flush Syringe IV 10 ml BID ELLIOTT Administration Sodium Chloride 10 ml 05/30/21 05:14 Sodium Chloride 0.9% 10 Ml Flush Syringe IV PRN PRN LINE FLUSH Tramadol HCl 100 mg 06/09/21 08:00 06/20/21 21:46 Tramadol 50 Mg Tab PO 100 mg BID ELLIOTT Administration Warfarin Sodium 20 mg 06/20/21 17:00 06/20/21 16:52 Warfarin 10 Mg Tab PO 06/21/21 16:59 20 mg DAILY@1700 NR Administration Warfarin Sodium 7.5 mg 06/20/21 17:00 06/20/21 16:54 Warfarin 7.5 Mg Tab PO 06/21/21 16:59 7.5 mg DAILY@1700 NR Administration Nutrition/Malnutrition Assess - Dietary Evaluation Nutrition/Malnutrition Findings: Nutrition Notes Start: 05/31/21 12: 39 Freq: Status: Active Protocol: Document 06/14/21 07:31 KING (Rec: 06/14/21 07:42 KING [id number]) Nutrition Notes Initial or Follow up Reassessment Current Diagnosis Sepsis,Hypertension Other Pertinent Diagnosis Pulmonary embolism, Chest pain , Seizure D/O, Anxiety, Hypothyroidism Current Diet Renal Labs/Tests No current available Pertinent Medications Reviewed Height 5 ft 7 in Weight 111 kg [place] Body Weight (kg) 61.36 BMI 38.3 Weight Status Obese Subjective/Other Information Pt has consumed 50% of meals since last assessment. Not sure why pt prescribed renal diet on 06/11; no mention of renal dysfunction in MD notes. Cr lab increased to 1.4 on but is trending downward. Percent of energy/protein needs met: 58% energy 56% pro Burn Absent Trauma Absent Current % PO Fair (50-74%) #1 Nutrition Diagnosis Inadequate protein-energy intake Etiology medical dx, anxiety As Evidenced by Signs and Symptoms PO intake meeting <75% estimated energy and pro needs Is patient on ventilator? No Is Patient Ambulatory and/or Out of Bed Yes REE-(Mobile-St. Jeor-ambulatory/OOB) [ 2356.419 [id number]] Kcal/Kg value to use for calculation 16 Approximate Energy Requirements Using 1776 kcal/Kg Calculation Used for Recommendations Kcal/kg Additional Notes Pro needs 0.8-1g/kg adjBW: 69- 86g/day Fluid needs 1ml/kcal Nutrition Intervention Change Diet Order: Continue current diet order Add Supplement/Snack (indicate name/kcal Ensure High Protein once daily /protein ) Provides kCal: 160 Provides Protein (gm) 16 Goal #1 PO intake of meals plus ONS to meet at least 75% energy and pro needs Follow-Up By: 06/21/21 Additional Comments F/U: intakes (meals/ONS), renal function and need for renal diet, wt
[2021-06-21] MEDS: ASPIRIN EC 81 MG TAB PO SCH (09:37)
[2021-06-21] MEDS: levETIRAcetam 500 MG TAB PO SCH ×2 (09:37→21:58)
[2021-06-21] MEDS: PROPRANOLOL 40 MG TAB PO SCH ×2 (09:37→21:58)
[2021-06-21] MEDS: FAMOTIDINE 20 MG TAB PO SCH ×2 (09:37→21:58)
[2021-06-21] MEDS: ALPRAZolam 0.5 MG TAB PO SCH ×2 (09:38→21:57)
[2021-06-21] MEDS: traMADol 50 MG TAB PO SCH ×2 (09:38→21:57)
[2021-06-21] MEDS: QUEtiapine 100 MG TAB PO SCH (09:38)
--- NOTE | 2021-06-21 12:02 | Progress Note ---
Assessment and Plan Sepsis MSSA Bacteremia Acute pulmonary embolism Acute chest pain History of DVT on warfarin Seizure disorder Anxiety Hypothyroidism microcytic anemia Morbid obesity Hypotension (Resolved) - continue Warfarin; target INR 2.0 to 3.0 - continue full anticoagulation with IV Heparin bridge - continue care as below otherwise; - continue to trend H&H prn - PRBC transfusions for serum Hb < 7.0 g/dl - follow H&H closely - continue Ancef; de-escalate per ID recommendations - continue Keppra as AED - continue thyroid replacement therapy - follow clinically re: fever curves / trend WBC - supplemental oxygen to keep O2 sats > 90% - bronchodilators (ALVERTO) with pulm hygiene per RT - continue to avoid nephrotoxins, renally dose all medications - continue mobility protocols to prevent pressure ulcers - PT/OT as tolerated - Wound care per RN/WCT - continue accuchecks with glycemic control per SSI for target blood glucose < 180 mg/dL - tobacco abstinence strongly counseled at the bedside - home oxygen evaluation at discharge - prn analgesia per pain score - GI prophylaxis with Pepcid - Flu & pneumovax per protocol - Pulmonary out patient follow up for PFTs and optimization of respiratory status - life style modifications counseled re: weight loss, better medication compliance - continue other care per attending / other consultants ... re-evaluate in am & prn Subjective Date of service: 06/21/21 Principal diagnosis: Sepsis; Acute P.E.; Chest pain; H/O DVT; Seizures; Hypothyroidism; Obesity Interval history: Patient is seen today for: Sepsis; Acute pulmonary embolism; Acute chest pain; H/O DVT; Seizure disorder; Hypothyroidism; Anemia; Morbid obesity; Hypotension (Resolved); MSSA Bacteremia Seen and examined at bedside; 24hour events reviewed; nursing and respiratory care staff consulted; no adverse overnight events reported to me; resting peacefully in bed; Objective Vital Signs - 12hr 06/21/21 06/21/21 06/21/21 04:45 06:00 08:02 Temperature 97.7 F Pulse Rate 53 L 55 L Respiratory 18 Rate Blood Pressure 116/63 O2 Sat by Pulse 100 100 Oximetry 06/21/21 10:45 Temperature 97.7 F Pulse Rate 63 Respiratory 20 Rate Blood Pressure 116/68 O2 Sat by Pulse 95 Oximetry Constitutional: no acute distress, asleep, other (elderly morbidly obese female without increased respiratory effort at rest) Eyes: non-icteric ENT: oropharynx moist Neck: supple, no lymphadenopathy, no JVD, other (large neck circumference; RIJ CVL) Effort: mildly labored Ascultation: Bilateral: clear, diminished breath sounds Percussion: Bilateral: not dull Cardiovascular: regular rate and rhythm Gastrointestinal: normoactive bowel sounds, soft, non-tender, other (distended but soft) Integumentary: normal Extremities: no cyanosis, no edema, pulses normal, no ischemia or petechiae Neurologic: non-focal exam (grossly), pupils equal and round, CN II-XII normal, motor strength normal and Psychiatric: other (Sleeping at this time.) CBC and BMP: 06/20/21 05:00 06/20/21 05:00 ABG, PT/INR, D-dimer: ABG ABG pH 7.401 pH Units (7.350-7.450) 06/15/21 10:28 ABG pCO2 46.2 mm Hg 06/15/21 10:28 ABG pO2 41.6 mm Hg (80.0-90.0) L 06/15/21 10:28 ABG O2 Saturation 69.2 % (95.0-99.0) L 06/15/21 10:28 PT/INR, D-dimer PT 15.5 Sec. (12.2-14.9) H 06/20/21 05:00 INR 1.10 (0.87-1.13) 06/20/21 05:00 Abnormal lab findings: Abnormal Labs 05/29/21 05/29/21 05/29/21 23:24 23:24 23:29 WBC RBC Hgb 8.8 L Hct 28.7 L MCV 74 L MCH 23 L RDW 26.4 H Seg Neuts % (Manual) 75.0 H Lymphocytes % (Manual) Eosinophils % (Manual) Seg Neutrophils # Man Lymphocytes # (Manual) Eosinophils # (Manual) PT INR APTT 20.9 L Heparin Anti-Xa Level ABG pO2 ABG HCO3 ABG O2 Saturation ABG Hemoglobin Oxyhemoglobin Sodium Chloride Carbon Dioxide 20 L Creatinine Glucose Calcium ALT Total Protein Albumin 3.5 L TSH Vancomycin Trough Crossmatch 05/30/21 05/30/21 05/30/21 08:25 08:25 13:35 WBC RBC Hgb 8.8 L Hct 27.5 L MCV MCH RDW Seg Neuts % (Manual) Lymphocytes % (Manual) Eosinophils % (Manual) Seg Neutrophils # Man Lymphocytes # (Manual) Eosinophils # (Manual) PT 15.4 H INR APTT 107.1 H* Heparin Anti-Xa Level 0.82 H ABG pO2 ABG HCO3 ABG O2 Saturation ABG Hemoglobin Oxyhemoglobin Sodium Chloride Carbon Dioxide Creatinine Glucose Calcium ALT Total Protein Albumin TSH Vancomycin Trough Crossmatch 05/30/21 05/31/21 05/31/21 20:57 06:40 06:40 WBC 13.0 H RBC Hgb 8.9 L Hct 28.5 L MCV 74 L MCH 23 L RDW 25.7 H Seg Neuts % (Manual) 77.0 H Lymphocytes % (Manual) Eosinophils % (Manual) Seg Neutrophils # Man 10.0 H Lymphocytes # (Manual) Eosinophils # (Manual) PT INR APTT 52.6 H Heparin Anti-Xa Level 0.15 L 0.74 H ABG pO2 ABG HCO3 ABG O2 Saturation ABG Hemoglobin Oxyhemoglobin Sodium Chloride Carbon Dioxide Creatinine Glucose Calcium ALT Total Protein Albumin TSH Vancomycin Trough Crossmatch 06/01/21 06/01/21 06/02/21 09:55 10:27 06:15 WBC RBC Hgb 9.4 L Hct MCV MCH RDW Seg Neuts % (Manual) Lymphocytes % (Manual) Eosinophils % (Manual) Seg Neutrophils # Man Lymphocytes # (Manual) Eosinophils # (Manual) PT INR APTT Heparin Anti-Xa Level 0.13 L 0.25 L ABG pO2 ABG HCO3 ABG O2 Saturation ABG Hemoglobin Oxyhemoglobin Sodium Chloride Carbon Dioxide Creatinine Glucose Calcium ALT Total Protein Albumin TSH Vancomycin Trough Crossmatch 06/02/21 06/03/21 06/04/21 23:30 Unknown 07:39 WBC RBC Hgb 8.5 L Hct 28.0 L MCV MCH RDW Seg Neuts % (Manual) Lymphocytes % (Manual) Eosinophils % (Manual) Seg Neutrophils # Man Lymphocytes # (Manual) Eosinophils # (Manual) PT 15.0 H INR APTT Heparin Anti-Xa Level 0.19 L ABG pO2 ABG HCO3 ABG O2 Saturation ABG Hemoglobin Oxyhemoglobin Sodium Chloride Carbon Dioxide Creatinine Glucose Calcium ALT Total Protein Albumin TSH Vancomycin Trough Crossmatch 06/05/21 06/05/21 06/05/21 04:07 04:07 10:40 WBC RBC Hgb 8.4 L Hct 27.3 L MCV MCH RDW Seg Neuts % (Manual) Lymphocytes % (Manual) Eosinophils % (Manual) Seg Neutrophils # Man Lymphocytes # (Manual) Eosinophils # (Manual) PT 17.7 H INR 1.30 H APTT Heparin Anti-Xa Level ABG pO2 ABG HCO3 ABG O2 Saturation ABG Hemoglobin Oxyhemoglobin Sodium Chloride Carbon Dioxide Creatinine Glucose Calcium ALT Total Protein Albumin TSH 0.034 L Vancomycin Trough Crossmatch 06/05/21 06/05/21 06/06/21 10:40 11:01 04:00 WBC 14.0 H RBC 3.37 L Hgb 7.5 L Hct 24.8 L MCV 74 L MCH 22 L RDW 25.0 H Seg Neuts % (Manual) 94.0 H Lymphocytes % (Manual) 3.0 L Eosinophils % (Manual) Seg Neutrophils # Man 13.2 H Lymphocytes # (Manual) 0.4 L Eosinophils # (Manual) PT 17.4 H INR 1.27 H APTT Heparin Anti-Xa Level ABG pO2 ABG HCO3 ABG O2 Saturation ABG Hemoglobin Oxyhemoglobin Sodium 135 L Chloride Carbon Dioxide 20 L Creatinine Glucose Calcium 7.8 L ALT Total Protein Albumin TSH Vancomycin Trough Crossmatch 06/07/21 06/07/21 06/08/21 12:55 12:55 04:52 WBC RBC Hgb 7.1 L Hct 23.6 L MCV MCH RDW Seg Neuts % (Manual) Lymphocytes % (Manual) Eosinophils % (Manual) Seg Neutrophils # Man Lymphocytes # (Manual) Eosinophils # (Manual) PT 19.7 H INR 1.48 H APTT Heparin Anti-Xa Level ABG pO2 ABG HCO3 ABG O2 Saturation ABG Hemoglobin Oxyhemoglobin Sodium Chloride 116.6 H Carbon Dioxide 18 L Creatinine Glucose Calcium 7.4 L ALT Total Protein 4.7 L Albumin 2.7 L TSH Vancomycin Trough Crossmatch 06/08/21 06/09/21 06/09/21 04:52 06:46 06:46 WBC RBC 3.09 L Hgb 6.9 L Hct 22.4 L MCV 72 L MCH 22 L RDW 25.0 H Seg Neuts % (Manual) Lymphocytes % (Manual) Eosinophils % (Manual) Seg Neutrophils # Man Lymphocytes # (Manual) Eosinophils # (Manual) PT INR APTT Heparin Anti-Xa Level < 0.10 L ABG pO2 ABG HCO3 ABG O2 Saturation ABG Hemoglobin Oxyhemoglobin Sodium Chloride Carbon Dioxide Creatinine Glucose Calcium ALT Total Protein Albumin TSH Vancomycin Trough 25.1 H Crossmatch 06/09/21 06/10/21 06/10/21 Unknown 08:31 08:31 WBC RBC 3.17 L Hgb 7.1 L Hct 22.9 L MCV 72 L MCH 22 L RDW 25.5 H Seg Neuts % (Manual) 71.0 H Lymphocytes % (Manual) Eosinophils % (Manual) Seg Neutrophils # Man Lymphocytes # (Manual) 1.0 L Eosinophils # (Manual) PT 20.4 H 17.6 H INR 1.54 H 1.29 H APTT Heparin Anti-Xa Level ABG pO2 ABG HCO3 ABG O2 Saturation ABG Hemoglobin Oxyhemoglobin Sodium Chloride Carbon Dioxide Creatinine Glucose Calcium ALT Total Protein Albumin TSH Vancomycin Trough Crossmatch 06/10/21 06/10/21 06/11/21 08:31 08:33 08:25 WBC RBC Hgb Hct MCV MCH RDW Seg Neuts % (Manual) Lymphocytes % (Manual) Eosinophils % (Manual) Seg Neutrophils # Man Lymphocytes # (Manual) Eosinophils # (Manual) PT 16.3 H INR 1.17 H APTT Heparin Anti-Xa Level ABG pO2 ABG HCO3 ABG O2 Saturation ABG Hemoglobin Oxyhemoglobin Sodium Chloride 111.3 H Carbon Dioxide 21 L Creatinine 1.4 H Glucose Calcium ALT Total Protein 5.7 L D Albumin 3.2 L TSH Vancomycin Trough Crossmatch See Detail 06/12/21 06/12/21 06/14/21 05:45 05:45 Unknown WBC RBC Hgb Hct MCV MCH RDW Seg Neuts % (Manual) Lymphocytes % (Manual) Eosinophils % (Manual) Seg Neutrophils # Man Lymphocytes # (Manual) Eosinophils # (Manual) PT 16.1 H INR 1.16 H APTT Heparin Anti-Xa Level 0.26 L ABG pO2 ABG HCO3 ABG O2 Saturation ABG Hemoglobin Oxyhemoglobin Sodium Chloride Carbon Dioxide Creatinine 1.3 H Glucose Calcium ALT Total Protein Albumin TSH Vancomycin Trough Crossmatch 06/14/21 06/14/21 06/15/21 Unknown Unknown 03:56 WBC RBC 3.50 L Hgb 8.2 L Hct 26.3 L MCV 75 L MCH 24 L RDW 27.6 H Seg Neuts % (Manual) Lymphocytes % (Manual) Eosinophils % (Manual) Seg Neutrophils # Man Lymphocytes # (Manual) Eosinophils # (Manual) PT 15.4 H INR APTT Heparin Anti-Xa Level ABG pO2 ABG HCO3 ABG O2 Saturation ABG Hemoglobin Oxyhemoglobin Sodium Chloride Carbon Dioxide Creatinine Glucose 107 H Calcium ALT < 5 L Total Protein 5.9 L Albumin 3.5 L TSH Vancomycin Trough Crossmatch 06/15/21 06/15/21 06/16/21 03:56 10:28 03:15 WBC RBC 3.47 L Hgb 8.3 L Hct 25.8 L MCV 74 L MCH 24 L RDW 27.3 H Seg Neuts % (Manual) 72.0 H Lymphocytes % (Manual) Eosinophils % (Manual) 6.0 H Seg Neutrophils # Man Lymphocytes # (Manual) Eosinophils # (Manual) 0.5 H PT 16.7 H INR 1.21 H APTT Heparin Anti-Xa Level 0.17 L ABG pO2 41.6 L ABG HCO3 28.1 H ABG O2 Saturation 69.2 L ABG Hemoglobin 8.5 L Oxyhemoglobin 67.6 L Sodium Chloride Carbon Dioxide Creatinine Glucose Calcium ALT Total Protein Albumin TSH Vancomycin Trough Crossmatch 06/16/21 06/16/21 06/17/21 03:15 Unknown 00:25 WBC RBC Hgb 8.7 L Hct 28.5 L MCV 75 L MCH 23 L RDW 27.3 H Seg Neuts % (Manual) 72.0 H Lymphocytes % (Manual) Eosinophils % (Manual) Seg Neutrophils # Man Lymphocytes # (Manual) Eosinophils # (Manual) PT INR APTT Heparin Anti-Xa Level < 0.10 L 0.80 H ABG pO2 ABG HCO3 ABG O2 Saturation ABG Hemoglobin Oxyhemoglobin Sodium Chloride Carbon Dioxide Creatinine Glucose Calcium ALT Total Protein Albumin TSH Vancomycin Trough Crossmatch 06/17/21 06/18/21 06/18/21 Unknown Unknown Unknown WBC RBC Hgb 8.9 L Hct 28.8 L MCV 75 L MCH 23 L RDW 27.4 H Seg Neuts % (Manual) 72.0 H Lymphocytes % (Manual) Eosinophils % (Manual) 6.0 H Seg Neutrophils # Man Lymphocytes # (Manual) 1.1 L Eosinophils # (Manual) PT 16.1 H 15.4 H INR 1.16 H APTT Heparin Anti-Xa Level 0.21 L ABG pO2 ABG HCO3 ABG O2 Saturation ABG Hemoglobin Oxyhemoglobin Sodium Chloride Carbon Dioxide Creatinine Glucose Calcium ALT Total Protein Albumin TSH Vancomycin Trough Crossmatch 06/18/21 06/20/21 06/20/21 Unknown 05:00 05:00 WBC RBC Hgb 9.2 L Hct 30.0 L MCV 76 L MCH 23 L RDW 26.8 H Seg Neuts % (Manual) Lymphocytes % (Manual) 37.0 H Eosinophils % (Manual) 8.0 H Seg Neutrophils # Man Lymphocytes # (Manual) Eosinophils # (Manual) PT 15.5 H INR APTT Heparin Anti-Xa Level ABG pO2 ABG HCO3 ABG O2 Saturation ABG Hemoglobin Oxyhemoglobin Sodium 134 L Chloride 96.5 L Carbon Dioxide Creatinine Glucose Calcium ALT Total Protein Albumin TSH Vancomycin Trough Crossmatch 06/20/21 06/20/21 10:00 19:00 WBC RBC Hgb Hct MCV MCH RDW Seg Neuts % (Manual) Lymphocytes % (Manual) Eosinophils % (Manual) Seg Neutrophils # Man Lymphocytes # (Manual) Eosinophils # (Manual) PT INR APTT Heparin Anti-Xa Level > 2.00 H 2.18 H ABG pO2 ABG HCO3 ABG O2 Saturation ABG Hemoglobin Oxyhemoglobin Sodium Chloride Carbon Dioxide Creatinine Glucose Calcium ALT Total Protein Albumin TSH Vancomycin Trough Crossmatch Allied health notes reviewed: nursing
[2021-06-21 12:45] LABS: INR 1.14 (0.87-1.13)
[2021-06-21] MEDS: HEPARIN/ 0.45% NACL DRIP 25,000 UNIT/500 ML BAG IV SCH (13:35)
[2021-06-21] MEDS ORDERED: WARFARIN 10 MG TAB PO NR (17:00)
[2021-06-21] MEDS ORDERED: WARFARIN 7.5 MG TAB PO NR (17:00)
--- NOTE | 2021-06-21 18:14 | Progress Note ---
Assessment and Plan 40 years old female with past medical history of hypertension, DVT, PE, GERD Hyperthyroidismwas brought to the hospital because of chest pain, retrosternal, sharp, radiating to back, 10/10, worsened by deep breaths, not relieved by anything, associated with SOB. Denies palpitations, diaphoresis. Endorses bilateral leg swelling, pain in her calves. Denies recent travel, immobilization, surgery, hospitalization, Hormonal contraceptive use. In the emergency room initial CT scan of the chest shows acute bilateral pulmonary thromboemboli with evidence of mild right ventricular strain. Scattered pneumonitis noted throughout the both lungs. Admitted the patient to the medical telemetry put the patient on IV heparin . Ordered echocardiogram Past Surgical History: Other (Left arm surgery 02/2017, Right knee, Rt leg. 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, [place] Filter) Social history: History of smoking. atient awake., on 3 litres O2.O2 saturation recorded 99%. Still complaining some shortness of breath and chest pain. Patient afebrile. No leukocytosis. Blood pressure 114/62, Pulse 67 , Respirations 20. Patient is on I/V heparin, cefazolin, famotidine and warfarin. - Patient Problems (1) Pulmonary embolism Current Visit: Yes Status: Acute Plan to address problem: Patient is on I/V Heparin and PO warfarin. (2) Acute chest pain Current Visit: No Status: Acute Plan to address problem: Cardiology also consulted. (3) Abnormality of thoracic aorta Current Visit: No Status: Acute Plan to address problem: Patient has history of aortic dissection and TEVAR procedure. (4) Asthma Current Visit: No Status: Acute Plan to address problem: Albuterol inhaler 2 puffs po qid prn for shortness of breath. (5) Cardiomyopathy Current Visit: No Status: Acute Plan to address problem: Management as per cardiology. (6) DVT, bilateral lower limbs Current Visit: No Status: Acute Plan to address problem: Patient is on I/V Heparin. H/O IVC filter. 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 (8) Nicotine dependence unspecified, with withdrawal Current Visit: No Status: Acute Qualifiers: Plan to address problem: Counseled to stop smoking. (9) Obesity hypoventilation syndrome Current Visit: No Status: Acute Plan to address problem: ABGs on room air during day time. Recommend sleep study as out patient. Recommend to loose weight. Recommend not to drive or operate heavy equipment with sleepiness. Avoid alcohol, sedatives and Narcotics. Explained sleep hygiene. (10) Seizure disorder Current Visit: No Status: Acute Plan to address problem: Management as per primary care and neurology. (11) Bipolar disorder Current Visit: No Status: Chronic Qualifiers: Active/Remission status: in remission of unspecified degree Qualified Code(s): F31.70 - Bipolar disorder, currently in remission, most recent episode unspecified Plan to address problem: Management as per primary care and psychiatry. (12) GERD (gastroesophageal reflux disease) Current Visit: No Status: Chronic Qualifiers: Esophagitis presence: without esophagitis Qualified Code(s): K21.9 - Gastro-esophageal reflux disease without esophagitis Plan to address problem: Patient is on Famotidine. (13) Hypothyroidism (acquired) Current Visit: Yes Status: Acute Plan to address problem: Patient has history of thyrotoxicosis. Patient presently is hypothyroid. Patient is on levothyroxine. Subjective Date of service: 06/21/21 Principal diagnosis: Sepsis; Acute P.E.; Chest pain; H/O DVT; Seizures; Hypothyroidism; Obesity Interval history: 40 years old female obese with past medical history of hypertension, DVT, PE, GERD Hyperthyroidism was brought to the hospital because of chest pain, retrosternal pain, sharp, radiating to back, 10/10, worsened by deep breaths, not relieved by anything, associated with SOB. Denies palpitations, diaphoresis. Endorses bilateral leg swelling, pain in her calves. Denies recent travel, immobilization, surgery, hospitalization, Hormonal contraceptive use. In the emergency room initial CT scan of the chest shows acute bilateral pulmonary thromboemboli with evidence of mild right ventricular strain. Scattered pneumonitis noted throughout the both lungs. Admitted the patient to the medical telemetry put the patient on IV heparin . Ordered echocardiogram Past Surgical History: Other (Left arm surgery 02/2017, Right knee, Rt leg. T EVAR of descending thoracic aorta due to disection, [place] Filter) Social history: History of smoking. Patient awake., on 3 litres O2.O2 saturation recorded 99%. Still complaining some shortness of breath and chest pain. Patient afebrile. No leukocytosis. Blood pressure 114/62, Pulse 67 , Respirations 20. Patient is on I/V heparin, cefazolin, famotidine and warfarin. Objective Vital Signs - 12hr 06/21/21 06/21/21 06/21/21 08:02 10:00 10:45 Temperature 97.7 F Pulse Rate 63 Respiratory 20 Rate Blood Pressure 116/68 O2 Sat by Pulse 100 96 95 Oximetry 06/21/21 16:04 Temperature 98.3 F Pulse Rate 67 Respiratory 20 Rate Blood Pressure 114/62 O2 Sat by Pulse 99 Oximetry Constitutional: no acute distress, alert Eyes: non-icteric ENT: oropharynx moist Neck: supple, no lymphadenopathy, no JVD, other (large neck circumference; RIJ CVL) Effort: mildly labored Ascultation: Bilateral: diminished breath sounds Percussion: Bilateral: not dull Cardiovascular: regular rate and rhythm Gastrointestinal: normoactive bowel sounds, soft, non-tender, other (distended but soft) Integumentary: normal Extremities: no cyanosis, no edema, pulses normal, no ischemia or petechiae Neurologic: non-focal exam (grossly), pupils equal and round, CN II-XII normal, motor strength normal and Psychiatric: other (Sleeping at this time.) CBC and BMP: 06/20/21 05:00 06/20/21 05:00 ABG, PT/INR, D-dimer: ABG ABG pH 7.401 pH Units (7.350-7.450) 06/15/21 10:28 ABG pCO2 46.2 mm Hg 06/15/21 10:28 ABG pO2 41.6 mm Hg (80.0-90.0) L 06/15/21 10:28 ABG O2 Saturation 69.2 % (95.0-99.0) L 06/15/21 10:28 PT/INR, D-dimer PT 15.9 Sec. (12.2-14.9) H 06/21/21 12:14 INR 1.14 (0.87-1.13) H 06/21/21 12:14 Abnormal lab findings: Abnormal Labs 05/29/21 05/29/21 05/29/21 23:24 23:24 23:29 WBC RBC Hgb 8.8 L Hct 28.7 L MCV 74 L MCH 23 L RDW 26.4 H Seg Neuts % (Manual) 75.0 H Lymphocytes % (Manual) Eosinophils % (Manual) Seg Neutrophils # Man Lymphocytes # (Manual) Eosinophils # (Manual) PT INR APTT 20.9 L Heparin Anti-Xa Level ABG pO2 ABG HCO3 ABG O2 Saturation ABG Hemoglobin Oxyhemoglobin Sodium Chloride Carbon Dioxide 20 L Creatinine Glucose Calcium ALT Total Protein Albumin 3.5 L TSH Vancomycin Trough Crossmatch 05/30/21 05/30/21 05/30/21 08:25 08:25 13:35 WBC RBC Hgb 8.8 L Hct 27.5 L MCV MCH RDW Seg Neuts % (Manual) Lymphocytes % (Manual) Eosinophils % (Manual) Seg Neutrophils # Man Lymphocytes # (Manual) Eosinophils # (Manual) PT 15.4 H INR APTT 107.1 H* Heparin Anti-Xa Level 0.82 H ABG pO2 ABG HCO3 ABG O2 Saturation ABG Hemoglobin Oxyhemoglobin Sodium Chloride Carbon Dioxide Creatinine Glucose Calcium ALT Total Protein Albumin TSH Vancomycin Trough Crossmatch 05/30/21 05/31/21 05/31/21 20:57 06:40 06:40 WBC 13.0 H RBC Hgb 8.9 L Hct 28.5 L MCV 74 L MCH 23 L RDW 25.7 H Seg Neuts % (Manual) 77.0 H Lymphocytes % (Manual) Eosinophils % (Manual) Seg Neutrophils # Man 10.0 H Lymphocytes # (Manual) Eosinophils # (Manual) PT INR APTT 52.6 H Heparin Anti-Xa Level 0.15 L 0.74 H ABG pO2 ABG HCO3 ABG O2 Saturation ABG Hemoglobin Oxyhemoglobin Sodium Chloride Carbon Dioxide Creatinine Glucose Calcium ALT Total Protein Albumin TSH Vancomycin Trough Crossmatch 06/01/21 06/01/21 06/02/21 09:55 10:27 06:15 WBC RBC Hgb 9.4 L Hct MCV MCH RDW Seg Neuts % (Manual) Lymphocytes % (Manual) Eosinophils % (Manual) Seg Neutrophils # Man Lymphocytes # (Manual) Eosinophils # (Manual) PT INR APTT Heparin Anti-Xa Level 0.13 L 0.25 L ABG pO2 ABG HCO3 ABG O2 Saturation ABG Hemoglobin Oxyhemoglobin Sodium Chloride Carbon Dioxide Creatinine Glucose Calcium ALT Total Protein Albumin TSH Vancomycin Trough Crossmatch 06/02/21 06/03/21 06/04/21 23:30 Unknown 07:39 WBC RBC Hgb 8.5 L Hct 28.0 L MCV MCH RDW Seg Neuts % (Manual) Lymphocytes % (Manual) Eosinophils % (Manual) Seg Neutrophils # Man Lymphocytes # (Manual) Eosinophils # (Manual) PT 15.0 H INR APTT Heparin Anti-Xa Level 0.19 L ABG pO2 ABG HCO3 ABG O2 Saturation ABG Hemoglobin Oxyhemoglobin Sodium Chloride Carbon Dioxide Creatinine Glucose Calcium ALT Total Protein Albumin TSH Vancomycin Trough Crossmatch 06/05/21 06/05/21 06/05/21 04:07 04:07 10:40 WBC RBC Hgb 8.4 L Hct 27.3 L MCV MCH RDW Seg Neuts % (Manual) Lymphocytes % (Manual) Eosinophils % (Manual) Seg Neutrophils # Man Lymphocytes # (Manual) Eosinophils # (Manual) PT 17.7 H INR 1.30 H APTT Heparin Anti-Xa Level ABG pO2 ABG HCO3 ABG O2 Saturation ABG Hemoglobin Oxyhemoglobin Sodium Chloride Carbon Dioxide Creatinine Glucose Calcium ALT Total Protein Albumin TSH 0.034 L Vancomycin Trough Crossmatch 06/05/21 06/05/21 06/06/21 10:40 11:01 04:00 WBC 14.0 H RBC 3.37 L Hgb 7.5 L Hct 24.8 L MCV 74 L MCH 22 L RDW 25.0 H Seg Neuts % (Manual) 94.0 H Lymphocytes % (Manual) 3.0 L Eosinophils % (Manual) Seg Neutrophils # Man 13.2 H Lymphocytes # (Manual) 0.4 L Eosinophils # (Manual) PT 17.4 H INR 1.27 H APTT Heparin Anti-Xa Level ABG pO2 ABG HCO3 ABG O2 Saturation ABG Hemoglobin Oxyhemoglobin Sodium 135 L Chloride Carbon Dioxide 20 L Creatinine Glucose Calcium 7.8 L ALT Total Protein Albumin TSH Vancomycin Trough Crossmatch 06/07/21 06/07/21 06/08/21 12:55 12:55 04:52 WBC RBC Hgb 7.1 L Hct 23.6 L MCV MCH RDW Seg Neuts % (Manual) Lymphocytes % (Manual) Eosinophils % (Manual) Seg Neutrophils # Man Lymphocytes # (Manual) Eosinophils # (Manual) PT 19.7 H INR 1.48 H APTT Heparin Anti-Xa Level ABG pO2 ABG HCO3 ABG O2 Saturation ABG Hemoglobin Oxyhemoglobin Sodium Chloride 116.6 H Carbon Dioxide 18 L Creatinine Glucose Calcium 7.4 L ALT Total Protein 4.7 L Albumin 2.7 L TSH Vancomycin Trough Crossmatch 06/08/21 06/09/21 06/09/21 04:52 06:46 06:46 WBC RBC 3.09 L Hgb 6.9 L Hct 22.4 L MCV 72 L MCH 22 L RDW 25.0 H Seg Neuts % (Manual) Lymphocytes % (Manual) Eosinophils % (Manual) Seg Neutrophils # Man Lymphocytes # (Manual) Eosinophils # (Manual) PT INR APTT Heparin Anti-Xa Level < 0.10 L ABG pO2 ABG HCO3 ABG O2 Saturation ABG Hemoglobin Oxyhemoglobin Sodium Chloride Carbon Dioxide Creatinine Glucose Calcium ALT Total Protein Albumin TSH Vancomycin Trough 25.1 H Crossmatch 06/09/21 06/10/21 06/10/21 Unknown 08:31 08:31 WBC RBC 3.17 L Hgb 7.1 L Hct 22.9 L MCV 72 L MCH 22 L RDW 25.5 H Seg Neuts % (Manual) 71.0 H Lymphocytes % (Manual) Eosinophils % (Manual) Seg Neutrophils # Man Lymphocytes # (Manual) 1.0 L Eosinophils # (Manual) PT 20.4 H 17.6 H INR 1.54 H 1.29 H APTT Heparin Anti-Xa Level ABG pO2 ABG HCO3 ABG O2 Saturation ABG Hemoglobin Oxyhemoglobin Sodium Chloride Carbon Dioxide Creatinine Glucose Calcium ALT Total Protein Albumin TSH Vancomycin Trough Crossmatch 06/10/21 06/10/21 06/11/21 08:31 08:33 08:25 WBC RBC Hgb Hct MCV MCH RDW Seg Neuts % (Manual) Lymphocytes % (Manual) Eosinophils % (Manual) Seg Neutrophils # Man Lymphocytes # (Manual) Eosinophils # (Manual) PT 16.3 H INR 1.17 H APTT Heparin Anti-Xa Level ABG pO2 ABG HCO3 ABG O2 Saturation ABG Hemoglobin Oxyhemoglobin Sodium Chloride 111.3 H Carbon Dioxide 21 L Creatinine 1.4 H Glucose Calcium ALT Total Protein 5.7 L D Albumin 3.2 L TSH Vancomycin Trough Crossmatch See Detail 06/12/21 06/12/21 06/14/21 05:45 05:45 Unknown WBC RBC Hgb Hct MCV MCH RDW Seg Neuts % (Manual) Lymphocytes % (Manual) Eosinophils % (Manual) Seg Neutrophils # Man Lymphocytes # (Manual) Eosinophils # (Manual) PT 16.1 H INR 1.16 H APTT Heparin Anti-Xa Level 0.26 L ABG pO2 ABG HCO3 ABG O2 Saturation ABG Hemoglobin Oxyhemoglobin Sodium Chloride Carbon Dioxide Creatinine 1.3 H Glucose Calcium ALT Total Protein Albumin TSH Vancomycin Trough Crossmatch 06/14/21 06/14/21 06/15/21 Unknown Unknown 03:56 WBC RBC 3.50 L Hgb 8.2 L Hct 26.3 L MCV 75 L MCH 24 L RDW 27.6 H Seg Neuts % (Manual) Lymphocytes % (Manual) Eosinophils % (Manual) Seg Neutrophils # Man Lymphocytes # (Manual) Eosinophils # (Manual) PT 15.4 H INR APTT Heparin Anti-Xa Level ABG pO2 ABG HCO3 ABG O2 Saturation ABG Hemoglobin Oxyhemoglobin Sodium Chloride Carbon Dioxide Creatinine Glucose 107 H Calcium ALT < 5 L Total Protein 5.9 L Albumin 3.5 L TSH Vancomycin Trough Crossmatch 06/15/21 06/15/21 06/16/21 03:56 10:28 03:15 WBC RBC 3.47 L Hgb 8.3 L Hct 25.8 L MCV 74 L MCH 24 L RDW 27.3 H Seg Neuts % (Manual) 72.0 H Lymphocytes % (Manual) Eosinophils % (Manual) 6.0 H Seg Neutrophils # Man Lymphocytes # (Manual) Eosinophils # (Manual) 0.5 H PT 16.7 H INR 1.21 H APTT Heparin Anti-Xa Level 0.17 L ABG pO2 41.6 L ABG HCO3 28.1 H ABG O2 Saturation 69.2 L ABG Hemoglobin 8.5 L Oxyhemoglobin 67.6 L Sodium Chloride Carbon Dioxide Creatinine Glucose Calcium ALT Total Protein Albumin TSH Vancomycin Trough Crossmatch 06/16/21 06/16/21 06/17/21 03:15 Unknown 00:25 WBC RBC Hgb 8.7 L Hct 28.5 L MCV 75 L MCH 23 L RDW 27.3 H Seg Neuts % (Manual) 72.0 H Lymphocytes % (Manual) Eosinophils % (Manual) Seg Neutrophils # Man Lymphocytes # (Manual) Eosinophils # (Manual) PT INR APTT Heparin Anti-Xa Level < 0.10 L 0.80 H ABG pO2 ABG HCO3 ABG O2 Saturation ABG Hemoglobin Oxyhemoglobin Sodium Chloride Carbon Dioxide Creatinine Glucose Calcium ALT Total Protein Albumin TSH Vancomycin Trough Crossmatch 06/17/21 06/18/21 06/18/21 Unknown Unknown Unknown WBC RBC Hgb 8.9 L Hct 28.8 L MCV 75 L MCH 23 L RDW 27.4 H Seg Neuts % (Manual) 72.0 H Lymphocytes % (Manual) Eosinophils % (Manual) 6.0 H Seg Neutrophils # Man Lymphocytes # (Manual) 1.1 L Eosinophils # (Manual) PT 16.1 H 15.4 H INR 1.16 H APTT Heparin Anti-Xa Level 0.21 L ABG pO2 ABG HCO3 ABG O2 Saturation ABG Hemoglobin Oxyhemoglobin Sodium Chloride Carbon Dioxide Creatinine Glucose Calcium ALT Total Protein Albumin TSH Vancomycin Trough Crossmatch 06/18/21 06/20/21 06/20/21 Unknown 05:00 05:00 WBC RBC Hgb 9.2 L Hct 30.0 L MCV 76 L MCH 23 L RDW 26.8 H Seg Neuts % (Manual) Lymphocytes % (Manual) 37.0 H Eosinophils % (Manual) 8.0 H Seg Neutrophils # Man Lymphocytes # (Manual) Eosinophils # (Manual) PT 15.5 H INR APTT Heparin Anti-Xa Level ABG pO2 ABG HCO3 ABG O2 Saturation ABG Hemoglobin Oxyhemoglobin Sodium 134 L Chloride 96.5 L Carbon Dioxide Creatinine Glucose Calcium ALT Total Protein Albumin TSH Vancomycin Trough Crossmatch 06/20/21 06/20/21 06/21/21 10:00 19:00 12:14 WBC RBC Hgb Hct MCV MCH RDW Seg Neuts % (Manual) Lymphocytes % (Manual) Eosinophils % (Manual) Seg Neutrophils # Man Lymphocytes # (Manual) Eosinophils # (Manual) PT 15.9 H INR 1.14 H APTT Heparin Anti-Xa Level > 2.00 H 2.18 H ABG pO2 ABG HCO3 ABG O2 Saturation ABG Hemoglobin Oxyhemoglobin Sodium Chloride Carbon Dioxide Creatinine Glucose Calcium ALT Total Protein Albumin TSH Vancomycin Trough Crossmatch Allied health notes reviewed: nursing
[2021-06-22] MEDS: MORPHINE 2 MG/1 ML INJ IV PRN ×3 (01:10→18:09)
[2021-06-22] MEDS: LEVOTHYROXINE 150 MCG TAB PO SCH (05:36)
[2021-06-22] MEDS: GABAPENTIN 100 MG CAP PO SCH ×3 (05:36→21:48)
[2021-06-22] MEDS: HEPARIN/ 0.45% NACL DRIP 25,000 UNIT/500 ML BAG IV SCH (08:47)
[2021-06-22] MEDS: traMADol 50 MG TAB PO SCH ×2 (09:00→21:47)
[2021-06-22] MEDS: amLODIPine 10 MG TAB PO SCH (10:01)
[2021-06-22] MEDS: ALPRAZolam 0.5 MG TAB PO SCH ×2 (10:01→21:48)
[2021-06-22] MEDS: ASPIRIN EC 81 MG TAB PO SCH (10:01)
[2021-06-22] MEDS: levETIRAcetam 500 MG TAB PO SCH ×2 (10:02→21:48)
[2021-06-22] MEDS: PROPRANOLOL 40 MG TAB PO SCH ×2 (10:02→21:48)
[2021-06-22] MEDS: QUEtiapine 100 MG TAB PO SCH (10:02)
[2021-06-22] MEDS: FAMOTIDINE 20 MG TAB PO SCH ×2 (10:03→21:48)
--- NOTE | 2021-06-22 12:15 | Progress Note ---
Assessment and Plan Sepsis MSSA Bacteremia Acute pulmonary embolism Acute chest pain History of DVT on warfarin Seizure disorder Anxiety Hypothyroidism microcytic anemia Morbid obesity Hypotension (Resolved) - continue Warfarin; target INR 2.0 to 3.0 - continue full anticoagulation with IV Heparin bridge - continue care as below otherwise; - continue to trend H&H prn - PRBC transfusions for serum Hb < 7.0 g/dl - follow H&H closely - continue Ancef; de-escalate per ID recommendations - continue Keppra as AED - continue thyroid replacement therapy - follow clinically re: fever curves / trend WBC - supplemental oxygen to keep O2 sats > 90% - bronchodilators (ALVERTO) with pulm hygiene per RT - continue to avoid nephrotoxins, renally dose all medications - continue mobility protocols to prevent pressure ulcers - PT/OT as tolerated - Wound care per RN/WCT - continue accuchecks with glycemic control per SSI for target blood glucose < 180 mg/dL - tobacco abstinence strongly counseled at the bedside - home oxygen evaluation at discharge - prn analgesia per pain score - GI prophylaxis with Pepcid - Flu & pneumovax per protocol - Pulmonary out patient follow up for PFTs and optimization of respiratory status - life style modifications counseled re: weight loss, better medication compliance - continue other care per attending / other consultants ... re-evaluate in am & prn Subjective Date of service: 06/22/21 Principal diagnosis: Sepsis; Acute P.E.; Chest pain; H/O DVT; Seizures; Hypothyroidism; Obesity Interval history: Patient is seen today for: Sepsis; Acute pulmonary embolism; Acute chest pain; H/O DVT; Seizure disorder; Hypothyroidism; Anemia; Morbid obesity; Hypotension (Resolved); MSSA Bacteremia Seen and examined at bedside; 24hour events reviewed; nursing and respiratory care staff consulted; no adverse overnight events reported to me; resting peacefully in bed; INR remains sub-therapeutic; no gross bleeding; no emesis or overt aspiration Objective Vital Signs - 12hr 06/22/21 06/22/21 06/22/21 01:10 01:40 04:38 Temperature 98.6 F Pulse Rate Respiratory 20 18 19 Rate Blood Pressure 114/51 O2 Sat by Pulse Oximetry 06/22/21 06/22/21 06:00 10:00 Temperature Pulse Rate 66 Respiratory Rate Blood Pressure O2 Sat by Pulse 100 Oximetry Constitutional: no acute distress, alert Eyes: non-icteric ENT: oropharynx moist Neck: supple, no lymphadenopathy, no JVD, other (large neck circumference; RIJ CVL) Effort: mildly labored Ascultation: Bilateral: diminished breath sounds Percussion: Bilateral: not dull Cardiovascular: regular rate and rhythm Gastrointestinal: normoactive bowel sounds, soft, non-tender, other (distended but soft) Integumentary: normal Extremities: no cyanosis, no edema, pulses normal, no ischemia or petechiae Neurologic: non-focal exam (grossly), pupils equal and round, CN II-XII normal, motor strength normal and Psychiatric: other (Sleeping at this time.) CBC and BMP: 06/20/21 05:00 06/20/21 05:00 ABG, PT/INR, D-dimer: ABG ABG pH 7.401 pH Units (7.350-7.450) 06/15/21 10:28 ABG pCO2 46.2 mm Hg 06/15/21 10:28 ABG pO2 41.6 mm Hg (80.0-90.0) L 06/15/21 10:28 ABG O2 Saturation 69.2 % (95.0-99.0) L 06/15/21 10:28 PT/INR, D-dimer PT 14.3 Sec. (12.2-14.9) 06/22/21 08:26 INR 1.00 (0.87-1.13) 06/22/21 08:26 Abnormal lab findings: Abnormal Labs 05/29/21 05/29/21 05/29/21 23:24 23:24 23:29 WBC RBC Hgb 8.8 L Hct 28.7 L MCV 74 L MCH 23 L RDW 26.4 H Seg Neuts % (Manual) 75.0 H Lymphocytes % (Manual) Eosinophils % (Manual) Seg Neutrophils # Man Lymphocytes # (Manual) Eosinophils # (Manual) PT INR APTT 20.9 L Heparin Anti-Xa Level ABG pO2 ABG HCO3 ABG O2 Saturation ABG Hemoglobin Oxyhemoglobin Sodium Chloride Carbon Dioxide 20 L Creatinine Glucose Calcium ALT Total Protein Albumin 3.5 L TSH Vancomycin Trough Crossmatch 05/30/21 05/30/21 05/30/21 08:25 08:25 13:35 WBC RBC Hgb 8.8 L Hct 27.5 L MCV MCH RDW Seg Neuts % (Manual) Lymphocytes % (Manual) Eosinophils % (Manual) Seg Neutrophils # Man Lymphocytes # (Manual) Eosinophils # (Manual) PT 15.4 H INR APTT 107.1 H* Heparin Anti-Xa Level 0.82 H ABG pO2 ABG HCO3 ABG O2 Saturation ABG Hemoglobin Oxyhemoglobin Sodium Chloride Carbon Dioxide Creatinine Glucose Calcium ALT Total Protein Albumin TSH Vancomycin Trough Crossmatch 05/30/21 05/31/21 05/31/21 20:57 06:40 06:40 WBC 13.0 H RBC Hgb 8.9 L Hct 28.5 L MCV 74 L MCH 23 L RDW 25.7 H Seg Neuts % (Manual) 77.0 H Lymphocytes % (Manual) Eosinophils % (Manual) Seg Neutrophils # Man 10.0 H Lymphocytes # (Manual) Eosinophils # (Manual) PT INR APTT 52.6 H Heparin Anti-Xa Level 0.15 L 0.74 H ABG pO2 ABG HCO3 ABG O2 Saturation ABG Hemoglobin Oxyhemoglobin Sodium Chloride Carbon Dioxide Creatinine Glucose Calcium ALT Total Protein Albumin TSH Vancomycin Trough Crossmatch 06/01/21 06/01/21 06/02/21 09:55 10:27 06:15 WBC RBC Hgb 9.4 L Hct MCV MCH RDW Seg Neuts % (Manual) Lymphocytes % (Manual) Eosinophils % (Manual) Seg Neutrophils # Man Lymphocytes # (Manual) Eosinophils # (Manual) PT INR APTT Heparin Anti-Xa Level 0.13 L 0.25 L ABG pO2 ABG HCO3 ABG O2 Saturation ABG Hemoglobin Oxyhemoglobin Sodium Chloride Carbon Dioxide Creatinine Glucose Calcium ALT Total Protein Albumin TSH Vancomycin Trough Crossmatch 06/02/21 06/03/21 06/04/21 23:30 Unknown 07:39 WBC RBC Hgb 8.5 L Hct 28.0 L MCV MCH RDW Seg Neuts % (Manual) Lymphocytes % (Manual) Eosinophils % (Manual) Seg Neutrophils # Man Lymphocytes # (Manual) Eosinophils # (Manual) PT 15.0 H INR APTT Heparin Anti-Xa Level 0.19 L ABG pO2 ABG HCO3 ABG O2 Saturation ABG Hemoglobin Oxyhemoglobin Sodium Chloride Carbon Dioxide Creatinine Glucose Calcium ALT Total Protein Albumin TSH Vancomycin Trough Crossmatch 06/05/21 06/05/21 06/05/21 04:07 04:07 10:40 WBC RBC Hgb 8.4 L Hct 27.3 L MCV MCH RDW Seg Neuts % (Manual) Lymphocytes % (Manual) Eosinophils % (Manual) Seg Neutrophils # Man Lymphocytes # (Manual) Eosinophils # (Manual) PT 17.7 H INR 1.30 H APTT Heparin Anti-Xa Level ABG pO2 ABG HCO3 ABG O2 Saturation ABG Hemoglobin Oxyhemoglobin Sodium Chloride Carbon Dioxide Creatinine Glucose Calcium ALT Total Protein Albumin TSH 0.034 L Vancomycin Trough Crossmatch 06/05/21 06/05/21 06/06/21 10:40 11:01 04:00 WBC 14.0 H RBC 3.37 L Hgb 7.5 L Hct 24.8 L MCV 74 L MCH 22 L RDW 25.0 H Seg Neuts % (Manual) 94.0 H Lymphocytes % (Manual) 3.0 L Eosinophils % (Manual) Seg Neutrophils # Man 13.2 H Lymphocytes # (Manual) 0.4 L Eosinophils # (Manual) PT 17.4 H INR 1.27 H APTT Heparin Anti-Xa Level ABG pO2 ABG HCO3 ABG O2 Saturation ABG Hemoglobin Oxyhemoglobin Sodium 135 L Chloride Carbon Dioxide 20 L Creatinine Glucose Calcium 7.8 L ALT Total Protein Albumin TSH Vancomycin Trough Crossmatch 06/07/21 06/07/21 06/08/21 12:55 12:55 04:52 WBC RBC Hgb 7.1 L Hct 23.6 L MCV MCH RDW Seg Neuts % (Manual) Lymphocytes % (Manual) Eosinophils % (Manual) Seg Neutrophils # Man Lymphocytes # (Manual) Eosinophils # (Manual) PT 19.7 H INR 1.48 H APTT Heparin Anti-Xa Level ABG pO2 ABG HCO3 ABG O2 Saturation ABG Hemoglobin Oxyhemoglobin Sodium Chloride 116.6 H Carbon Dioxide 18 L Creatinine Glucose Calcium 7.4 L ALT Total Protein 4.7 L Albumin 2.7 L TSH Vancomycin Trough Crossmatch 06/08/21 06/09/21 06/09/21 04:52 06:46 06:46 WBC RBC 3.09 L Hgb 6.9 L Hct 22.4 L MCV 72 L MCH 22 L RDW 25.0 H Seg Neuts % (Manual) Lymphocytes % (Manual) Eosinophils % (Manual) Seg Neutrophils # Man Lymphocytes # (Manual) Eosinophils # (Manual) PT INR APTT Heparin Anti-Xa Level < 0.10 L ABG pO2 ABG HCO3 ABG O2 Saturation ABG Hemoglobin Oxyhemoglobin Sodium Chloride Carbon Dioxide Creatinine Glucose Calcium ALT Total Protein Albumin TSH Vancomycin Trough 25.1 H Crossmatch 06/09/21 06/10/21 06/10/21 Unknown 08:31 08:31 WBC RBC 3.17 L Hgb 7.1 L Hct 22.9 L MCV 72 L MCH 22 L RDW 25.5 H Seg Neuts % (Manual) 71.0 H Lymphocytes % (Manual) Eosinophils % (Manual) Seg Neutrophils # Man Lymphocytes # (Manual) 1.0 L Eosinophils # (Manual) PT 20.4 H 17.6 H INR 1.54 H 1.29 H APTT Heparin Anti-Xa Level ABG pO2 ABG HCO3 ABG O2 Saturation ABG Hemoglobin Oxyhemoglobin Sodium Chloride Carbon Dioxide Creatinine Glucose Calcium ALT Total Protein Albumin TSH Vancomycin Trough Crossmatch 06/10/21 06/10/21 06/11/21 08:31 08:33 08:25 WBC RBC Hgb Hct MCV MCH RDW Seg Neuts % (Manual) Lymphocytes % (Manual) Eosinophils % (Manual) Seg Neutrophils # Man Lymphocytes # (Manual) Eosinophils # (Manual) PT 16.3 H INR 1.17 H APTT Heparin Anti-Xa Level ABG pO2 ABG HCO3 ABG O2 Saturation ABG Hemoglobin Oxyhemoglobin Sodium Chloride 111.3 H Carbon Dioxide 21 L Creatinine 1.4 H Glucose Calcium ALT Total Protein 5.7 L D Albumin 3.2 L TSH Vancomycin Trough Crossmatch See Detail 06/12/21 06/12/21 06/14/21 05:45 05:45 Unknown WBC RBC Hgb Hct MCV MCH RDW Seg Neuts % (Manual) Lymphocytes % (Manual) Eosinophils % (Manual) Seg Neutrophils # Man Lymphocytes # (Manual) Eosinophils # (Manual) PT 16.1 H INR 1.16 H APTT Heparin Anti-Xa Level 0.26 L ABG pO2 ABG HCO3 ABG O2 Saturation ABG Hemoglobin Oxyhemoglobin Sodium Chloride Carbon Dioxide Creatinine 1.3 H Glucose Calcium ALT Total Protein Albumin TSH Vancomycin Trough Crossmatch 06/14/21 06/14/21 06/15/21 Unknown Unknown 03:56 WBC RBC 3.50 L Hgb 8.2 L Hct 26.3 L MCV 75 L MCH 24 L RDW 27.6 H Seg Neuts % (Manual) Lymphocytes % (Manual) Eosinophils % (Manual) Seg Neutrophils # Man Lymphocytes # (Manual) Eosinophils # (Manual) PT 15.4 H INR APTT Heparin Anti-Xa Level ABG pO2 ABG HCO3 ABG O2 Saturation ABG Hemoglobin Oxyhemoglobin Sodium Chloride Carbon Dioxide Creatinine Glucose 107 H Calcium ALT < 5 L Total Protein 5.9 L Albumin 3.5 L TSH Vancomycin Trough Crossmatch 06/15/21 06/15/21 06/16/21 03:56 10:28 03:15 WBC RBC 3.47 L Hgb 8.3 L Hct 25.8 L MCV 74 L MCH 24 L RDW 27.3 H Seg Neuts % (Manual) 72.0 H Lymphocytes % (Manual) Eosinophils % (Manual) 6.0 H Seg Neutrophils # Man Lymphocytes # (Manual) Eosinophils # (Manual) 0.5 H PT 16.7 H INR 1.21 H APTT Heparin Anti-Xa Level 0.17 L ABG pO2 41.6 L ABG HCO3 28.1 H ABG O2 Saturation 69.2 L ABG Hemoglobin 8.5 L Oxyhemoglobin 67.6 L Sodium Chloride Carbon Dioxide Creatinine Glucose Calcium ALT Total Protein Albumin TSH Vancomycin Trough Crossmatch 06/16/21 06/16/21 06/17/21 03:15 Unknown 00:25 WBC RBC Hgb 8.7 L Hct 28.5 L MCV 75 L MCH 23 L RDW 27.3 H Seg Neuts % (Manual) 72.0 H Lymphocytes % (Manual) Eosinophils % (Manual) Seg Neutrophils # Man Lymphocytes # (Manual) Eosinophils # (Manual) PT INR APTT Heparin Anti-Xa Level < 0.10 L 0.80 H ABG pO2 ABG HCO3 ABG O2 Saturation ABG Hemoglobin Oxyhemoglobin Sodium Chloride Carbon Dioxide Creatinine Glucose Calcium ALT Total Protein Albumin TSH Vancomycin Trough Crossmatch 06/17/21 06/18/21 06/18/21 Unknown Unknown Unknown WBC RBC Hgb 8.9 L Hct 28.8 L MCV 75 L MCH 23 L RDW 27.4 H Seg Neuts % (Manual) 72.0 H Lymphocytes % (Manual) Eosinophils % (Manual) 6.0 H Seg Neutrophils # Man Lymphocytes # (Manual) 1.1 L Eosinophils # (Manual) PT 16.1 H 15.4 H INR 1.16 H APTT Heparin Anti-Xa Level 0.21 L ABG pO2 ABG HCO3 ABG O2 Saturation ABG Hemoglobin Oxyhemoglobin Sodium Chloride Carbon Dioxide Creatinine Glucose Calcium ALT Total Protein Albumin TSH Vancomycin Trough Crossmatch 06/18/21 06/20/21 06/20/21 Unknown 05:00 05:00 WBC RBC Hgb 9.2 L Hct 30.0 L MCV 76 L MCH 23 L RDW 26.8 H Seg Neuts % (Manual) Lymphocytes % (Manual) 37.0 H Eosinophils % (Manual) 8.0 H Seg Neutrophils # Man Lymphocytes # (Manual) Eosinophils # (Manual) PT 15.5 H INR APTT Heparin Anti-Xa Level ABG pO2 ABG HCO3 ABG O2 Saturation ABG Hemoglobin Oxyhemoglobin Sodium 134 L Chloride 96.5 L Carbon Dioxide Creatinine Glucose Calcium ALT Total Protein Albumin TSH Vancomycin Trough Crossmatch 06/20/21 06/20/21 06/21/21 10:00 19:00 12:14 WBC RBC Hgb Hct MCV MCH RDW Seg Neuts % (Manual) Lymphocytes % (Manual) Eosinophils % (Manual) Seg Neutrophils # Man Lymphocytes # (Manual) Eosinophils # (Manual) PT 15.9 H INR 1.14 H APTT Heparin Anti-Xa Level > 2.00 H 2.18 H ABG pO2 ABG HCO3 ABG O2 Saturation ABG Hemoglobin Oxyhemoglobin Sodium Chloride Carbon Dioxide Creatinine Glucose Calcium ALT Total Protein Albumin TSH Vancomycin Trough Crossmatch 06/22/21 08:26 WBC RBC Hgb Hct MCV MCH RDW Seg Neuts % (Manual) Lymphocytes % (Manual) Eosinophils % (Manual) Seg Neutrophils # Man Lymphocytes # (Manual) Eosinophils # (Manual) PT INR APTT Heparin Anti-Xa Level 0.28 L ABG pO2 ABG HCO3 ABG O2 Saturation ABG Hemoglobin Oxyhemoglobin Sodium Chloride Carbon Dioxide Creatinine Glucose Calcium ALT Total Protein Albumin TSH Vancomycin Trough Crossmatch Allied health notes reviewed: nursing
--- NOTE | 2021-06-22 13:12 | Progress Note ---
Assessment and Plan Assessment and plan: 40 years old female with past medical history of hypertension, PE x2, (R lung 05/2016, L lung 01/2017--on coumadin), R leg DVT 03/2017, Graves Disease, heart murmur, aortic dissection, PERICARDITIS, thyroid storm, and GERD admitted for acute bilateral pulmonary thromboemboli with evidence of mild right ventricular strain on heparin gtt and warfarin. Assessment and Plan: Sepsis, MSSA bacteremia -Etiology unclear, line infection vs endocarditis, infected TEVAR graft. -06/04 bcx: 3/ bottles MSSA - 06/07 bcx: NGTD - urine culture: NGTD -TTE negative for valvular vegetations -HANK negative for endocarditis - ID following -Continue Ancef -DAVID PICC line noted, remove RIJ CVC Hypotension (resolved) -Patient with low blood pressure at night -IVF started -avoid antihypotensives -labetalol currently held Acute pulmonary embolism History of DVT on warfarin Troponin unremarkable, chest x-ray unremarkable, bilateral lower extremity venous Dopplers unremarkable for acute DVT CT angio chest revealing acute bilateral pulmonary emboli with evidence of right heart strain Home medication of warfarin 7.5 mg daily; however, INR 1.03. Patient endorses being compliant with her anticoagulation. Continue heparin drip and bridged warfarin daily until therapeutic (goal 2.53.5). TTE without evidence of right heart strain Patient needs to be taking BOTH warfarin and heparin until INR goal of 2.5 achieved. - Remains subtherapeutic despite Heparin and Warfarin - Hematology consulted for possible warfarin resistance history of mechanical heart valve - goal inr 2.5. Seizure disorder Anxiety Continue home medications: Keppra 500 mg twice daily, Quetiapine 100 mg every morning and 300 mg nightly, alprazolam 0.5 mg 3 times daily History of aortic dissection s/p tevar. Hypothyroidism -resume home levothyroxine microcytic anemia -stable Transfuse if hemoglobin less than 7 or patient become symptomatic Morbid obesity Weight loss counseling Exercise counseling - BMI 39.1 - Counseled patient on the importance of weight loss, incorporating exercise, and dietary changes (lean meats, fresh fruits and vegetables, and water intake). Patient expresses understanding. Hospital Course: 06/05: Is unclear to me why the patient was transferred to the [facility] as I do not have any clear documentation to the results but in effect I was told by the nurse that the patient had pulled out his for her femoral line and did not have an access. Patient appears to have been having fever for a few days no known etiology we will proceed with a sepsis work-up although closely reviewing her case shows a history of thyroid storm in the past and she has not been receiving her thyroid medication while she does not have confusion at this time she does have tachycardia and tachypnea. We will give her a dose of IV levothyroxine today and start her daily dose of levothyroxine a.m. She has been on her propranolol although her home dose appears confusing as she gets 40 mg once daily and also 20 mg twice a day will discuss with her to clarify this and also with her pharmacy. She did have a right IJ triple-lumen catheter placed yesterday I discussed with her in the setting of well-documented by the nurse that she takes Midol at home which contains acetaminophen she is agreeable to trial acetaminophen as she wants to come off the cooling blanket. I also consulted ID and ordered a urinalysis with urine culture and some fluid support. I reviewed her CT scan and echocardiogram while the CT mentions the pulmonary embolism with mild right heart strain the echo shows a RVSP of 32 mmHg. I will proceed with consulting pulmonary in her case she would definitely need a pipeman outpatient. She continues on heparin drip while awaiting for therapeutic INR. In the meantime continue with antibiotic Right internal jugular vein triple-lumen catheter placement under ultrasound guidance 06/06: Patient seen and examined, showing some improvement, will follow cultures result, Continue abx, clinical stable, ID input, close eye on Hemoglobin. WBC mildly trended up. will transfer back to [facility]. 06/07: Continue supportive care, awaiting Cultures for ID and sensitivity in the meantime continue antibiotic. Am LABS. Patient continues on heparin drip until INR is therapeutic. I encouraged her to ambulate in her room and also set up on the chair. Cultures for COVID was negative. We will obtain PT OT evaluation. In short summary patient is a 40-year-old female with hypertension pulmonary embolism lower extremity DVT in the past on Coumadin who presented with shortness of breath diagnosed with pulmonary embolism admitted intermittently sepsis doubt septic emboli currently on antibiotics. Restarted on her thyroid medication with no evidence of thyroid storm. 06/08: resting comfortably on encounter. Afebrile today. Vital signs improved. 94% on 3L/min NC. Pain medication appears to be excessive as patient is heavily sedated, will scale back pain medication. D/w cardiology Dr Canseco regarding concern for endocarditis and possible infected TEVAR graft as potential source of infection. Consult placed for HANK. Will continue to follow culture data. Continue IV vancomycin per ID direction. INR remains subtherapeutic for treatment of DVT/PE but increased to 1.48, will continue warfarin at current dos age and heparin gtt at this time. 06/09: continue therapy for MSSA bacteremia. Awaiting HANK completion. INR 1.54, warfarin 12.5 mg dose given today. Anemic today 6.9, ordered 1 unit prbc. Patient denies any rectal bleeding, bleeding from lines, hematemesis. Suspect anemia of chronic disease and possibly iatrogenic induced from multiple blood draw/line placement attempts. Lower suspicion for occult hematoma but will order CTAP. 06/10: Abx orders noted by ID. INR remains subtherapetuic, did not receive warfarin dose for some apparent reason. Pharmacy will give 15 mg dose today. Occult bleed r/o on ctap. No rectal bleeding reported. Will transfuse 1 unit prbc. Restart heparin gtt. Will follow up results of HANK from today. 06/11: HANK negative for endocarditis. INR subtherapuetic. unfortunately patient has missed last two day of warfarin dosing and inr reflects this. Patient could also be warfarin resistant. Patient needs to be receiving BOTH warfarin and heparin gtt until INR goal of 2.5 achieved. D/w pharmacy, will continue with 15 mg dosing at this time. Continue Iv abx. Discharge plan is for early next week. 06/12: Hypertensive this AM, added amlodipine for better BP control. INR 1.16. Continue heparin gtt while transitioning to warfarin. Plan for discharge early next week. CM working on OP IV abx arrangement. 06/13: Continue heparin gtt and warfarin. INR remains subtherapeutic. 06/14: Patient remains subtherapeutic despite heparin gtt and Warfarin. Will consult hematology for possible warfarin resistance and for further recs. Continue heparin gtt and warfarin for now. Patient remains on IV Abx, ancef per ID, DAVID PICC line noted remove RIJ CVC. 06/15: Continue heparin drip and warfarin until INR at goal of 2.5. . Patient remains on IV Abx, ancef per ID, DAVID PICC line noted remove RIJ CVC. 06/16: Continue heparin drip and warfarin until INR at goal of 2.5. . Patient remains on IV Abx, ancef per ID, DAVID PICC line noted remove RIJ CVC. Continue Keppra as needed for AEDs. Continue thyroid replacement therapy. 06/17: Continue heparin drip and warfarin until INR at goal of 2.5. . Patient remains on IV Abx, ancef per ID, DAVID PICC line noted remove RIJ CVC. Continue Keppra as needed for AEDs. 06/18: Continue heparin drip and warfarin until INR at goal of 2.5. . Patient remains on IV Abx, ancef per ID, DAVID PICC line noted remove RIJ CVC. Continue Keppra as needed for AEDs. INR actually decreased this morning. Pharmacy to dose Coumadin per protocol 06/19: Continue heparin drip and warfarin until INR at goal of 2.5. . Patient remains on IV Abx, ancef per ID and should be treated for total of 6 weeks. End date 07/19/2021. Case management to arrange for home IV antibiotics when INR therapeutic and patient ready for discharge. 06/20: Continue heparin drip and warfarin until INR at goal of 2.5. . Patient remains on IV Abx, ancef per ID and should be treated for total of 6 weeks. End date 07/19/2021. Case management to arrange for home IV antibiotics when INR therapeutic and patient ready for discharge. 06/21: INR from yesterday is 1.10. Follow-up INR today. Continue heparin drip and warfarin until INR at goal of 2.5. . Patient remains on IV Abx, ancef per ID and should be treated for total of 6 weeks. End date 07/19/2021. Case management to arrange for home IV antibiotics when INR therapeutic and patient ready for discharge. 06/22: Continue supportive care awaiting therapeutic INR with a goal of 2.5-3. I reviewed her entire stay even going as far back as 2020 patient's INR has always been subtherapeutic. Hematology was consulted during this admission to evaluate for possible warfarin resistance the recommend that the patient stays in-house until INR is therapeutic. Nursing staff has been observing patient take her Coumadin. Dose has been adjusted by pharmacy to 20 mg and I agree with this. History Interval history: Patient seen and examined, no new complaints at this time. Still awaiting INR to be therapy Hospitalist Physical - Physical exam Narrative exam: GENERAL: Well-developed well-nourished. In no acute distress. but no respiratory distress, sitting CHEST/LUNGS: CTAB on room air HEART/CARDIOVASCULAR: Regular rate and rhythm. No murmur, rubs or gallops appreciated. ABDOMEN: +BS. NT/ND. SKIN: No rashes noted. : Right IJ cath in place NEURO: No focal motor deficit. MUSCULOSKELETAL: No joint effusion, EXTREMITIES: No cyanosis, clubbing or trace edema. PSYCH: Cooperative. - Constitutional Vitals: Temp Pulse Resp BP Pulse Ox 98.6 F 66 19 114/51 100 06/22/21 04:38 06/22/21 06:00 06/22/21 04:38 06/22/21 04:38 06/22/21 10:00 General appearance: Present: no acute distress, well-nourished, obese HEART Score - HEART Score Troponin: Troponin T < 0.010 ng/mL (0.00-0.029) 05/30/21 04:46 Results - Labs CBC & Chem 7: 06/20/21 05:00 06/20/21 05:00 Labs: Laboratory Last Values WBC 5.2 K/mm3 (4.5-11.0) 06/20/21 05:00 RBC 3.95 M/mm3 (3.65-5.03) 06/20/21 05:00 Hgb 9.2 gm/dl (10.1-14.3) L 06/20/21 05:00 Hct 30.0 % (30.3-42.9) L 06/20/21 05:00 MCV 76 fl (79-97) L 06/20/21 05:00 MCH 23 pg (28-32) L 06/20/21 05:00 MCHC 31 % (30-34) 06/20/21 05:00 RDW 26.8 % (13.2-15.2) H 06/20/21 05:00 Plt Count 409 K/mm3 (140-440) 06/20/21 05:00 Add Manual Diff Complete 06/20/21 05:00 Total Counted 100 06/20/21 05:00 Seg Neuts % (Manual) 51.0 % (40.0-70.0) 06/20/21 05:00 Band Neutrophils % 0 % 06/20/21 05:00 Lymphocytes % (Manual) 37.0 % (13.4-35.0) H 06/20/21 05:00 Reactive Lymphs % (Man) 0 % 06/20/21 05:00 Monocytes % (Manual) 4.0 % (0.0-7.3) 06/20/21 05:00 Eosinophils % (Manual) 8.0 % (0.0-4.3) H 06/20/21 05:00 Basophils % (Manual) 0 % (0.0-1.8) 06/20/21 05:00 Metamyelocytes % 0 % 06/20/21 05:00 Myelocytes % 0 % 06/20/21 05:00 Promyelocytes % 0 % 06/20/21 05:00 Blast Cells % 0 % 06/20/21 05:00 Nucleated RBC % Not Reportable 06/20/21 05:00 Seg Neutrophils # Man 2.7 K/mm3 (1.8-7.7) 06/20/21 05:00 Band Neutrophils # 0.0 K/mm3 06/20/21 05:00 Lymphocytes # (Manual) 1.9 K/mm3 (1.2-5.4) 06/20/21 05:00 Abs React Lymphs (Man) 0.0 K/mm3 06/20/21 05:00 Monocytes # (Manual) 0.2 K/mm3 (0.0-0.8) 06/20/21 05:00 Eosinophils # (Manual) 0.4 K/mm3 (0.0-0.4) 06/20/21 05:00 Basophils # (Manual) 0.0 K/mm3 (0.0-0.1) 06/20/21 05:00 Metamyelocytes # 0.0 K/mm3 06/20/21 05:00 Myelocytes # 0.0 K/mm3 06/20/21 05:00 Promyelocytes # 0.0 K/mm3 06/20/21 05:00 Blast Cells # 0.0 K/mm3 06/20/21 05:00 WBC Morphology Not Reportable 06/20/21 05:00 Hypersegmented Neuts Not Reportable 06/20/21 05:00 Hyposegmented Neuts Not Reportable 06/20/21 05:00 Hypogranular Neuts Not Reportable 06/20/21 05:00 Smudge Cells Not Reportable 06/20/21 05:00 Toxic Granulation Not Reportable 06/20/21 05:00 Toxic Vacuolation Not Reportable 06/20/21 05:00 Dohle Bodies Not Reportable 06/20/21 05:00 Pelger-Huet Anomaly Not Reportable 06/20/21 05:00 Jaime Rods Not Reportable 06/20/21 05:00 Platelet Estimate Consistent w auto 06/20/21 05:00 Clumped Platelets Not Reportable 06/20/21 05:00 Plt Clumps, EDTA Not Reportable 06/20/21 05:00 Large Platelets Not Reportable 06/20/21 05:00 Giant Platelets Not Reportable 06/20/21 05:00 Platelet Satelliting Not Reportable 06/20/21 05:00 Plt Morphology Comment Not Reportable 06/20/21 05:00 RBC Morphology Not Reportable 06/20/21 05:00 Dimorphic RBCs Not Reportable 06/20/21 05:00 Polychromasia Not Reportable 06/20/21 05:00 Hypochromasia 1+ 06/20/21 05:00 Poikilocytosis Not Reportable 06/20/21 05:00 Anisocytosis 2+ 06/20/21 05:00 Microcytosis Not Reportable 06/20/21 05:00 Macrocytosis Not Reportable 06/20/21 05:00 Spherocytes Not Reportable 06/20/21 05:00 Pappenheimer Bodies Not Reportable 06/20/21 05:00 Sickle Cells Not Reportable 06/20/21 05:00 Target Cells Not Reportable 06/20/21 05:00 Tear Drop Cells Not Reportable 06/20/21 05:00 Ovalocytes Not Reportable 06/20/21 05:00 Helmet Cells Not Reportable 06/20/21 05:00 Graves-Darrow Bodies Not Reportable 06/20/21 05:00 Cutler Rings Not Reportable 06/20/21 05:00 Tricia Cells Not Reportable 06/20/21 05:00 Bite Cells Not Reportable 06/20/21 05:00 Crenated Cell Not Reportable 06/20/21 05:00 Elliptocytes Not Reportable 06/20/21 05:00 Acanthocytes (Spur) Not Reportable 06/20/21 05:00 Rouleaux Not Reportable 06/20/21 05:00 Hemoglobin C Crystals Not Reportable 06/20/21 05:00 Schistocytes Not Reportable 06/20/21 05:00 Malaria parasites Not Reportable 06/20/21 05:00 Koffi Bodies Not Reportable 06/20/21 05:00 Hem Pathologist Commnt No 06/20/21 05:00 PT 14.3 Sec. (12.2-14.9) 06/22/21 08:26 INR 1.00 (0.87-1.13) 06/22/21 08: APTT 52.6 Sec. (24.2-36.6) H 05/31/21 06:40 Fibrinogen 420 mg/dl (211-480) 06/16/21 03:15 Heparin Anti-Xa Level 0.28 U.I./ml (0.3-0.7) L 06/22/21 08:26 ABG pH 7.401 pH Units (7.350-7.450) 06/15/21 10:28 ABG pCO2 46.2 mm Hg 06/15/21 10:28 ABG pO2 41.6 mm Hg (80.0-90.0) L 06/15/21 10:28 ABG HCO3 28.1 mmol/L (20.0-26.0) H 06/15/21 10:28 ABG O2 Saturation 69.2 % (95.0-99.0) L 06/15/21 10:28 ABG O2 Content 8.1 (0.0-44) 06/15/21 10:28 ABG Base Excess 2.9 mmol/L (-2.0-3.0) 06/15/21 10:28 ABG Hemoglobin 8.5 gm/dl (12.0-16.0) L 06/15/21 10:28 ABG Carboxyhemoglobin 1.7 % (0.0-5.0) 06/15/21 10:28 ABG Methemoglobin 0.7 % (0.0-1.5) 06/15/21 10:28 Oxyhemoglobin 67.6 % (95.0-99.0) L 06/15/21 10:28 FiO2 21 % 06/15/21 10:28 Sodium 140 mmol/L (137-145) 06/20/21 05:00 Potassium 4.3 mmol/L (3.6-5.0) 06/20/21 05:00 Chloride 103.9 mmol/L (98-107) 06/20/21 05:00 Carbon Dioxide 25 mmol/L (22-30) 06/20/21 05:00 Anion Gap 15 mmol/L 06/20/21 05:00 BUN 7 mg/dL (7-17) 06/20/21 05:00 Creatinine 0.7 mg/dL (0.6-1.2) 06/20/21 05:00 Estimated GFR > 60 ml/min 06/20/21 05:00 BUN/Creatinine Ratio 10 % 06/20/21 05:00 Glucose 90 mg/dL (65-100) 06/20/21 05:00 POC Glucose 77 mg/dL (70-105) 06/18/21 07:45 Lactic Acid 0.70 mmol/L (0.7-2.0) 06/05/21 10:40 Calcium 9.2 mg/dL (8.4-10.2) 06/20/21 05:00 Total Bilirubin < 0.20 mg/dL (0.1-1.2) 06/14/21 Unknown AST 8 units/L (5-40) 06/14/21 Unknown ALT < 5 units/L (7-56) L 06/14/21 Unknown Alkaline Phosphatase 73 units/L (35-129) 06/14/21 Unknown Troponin T < 0.010 ng/mL (0.00-0.029) 05/30/21 04:46 Total Protein 5.9 g/dL (6.3-8.2) L 06/14/21 Unknown Albumin 3.5 g/dL (3.9-5) L 06/14/21 Unknown Albumin/Globulin Ratio 1.5 % 06/14/21 Unknown Lipase 31 units/L (13-60) 05/30/21 04:41 TSH 0.034 mlU/mL (0.270-4.200) L 06/05/21 10:40 Free T4 1.29 ng/dL (0.76-1.46) 06/05/21 10:40 HCG, Qual Negative (Negative) 05/29/21 23:24 Urine Color Yellow (Yellow) 06/05/21 12:20 Urine Turbidity Slightly-cloudy (Clear) 06/05/21 12:20 Urine pH 6.0 (5.0-7.0) 06/05/21 12:20 Ur Specific Bigler 1.004 (1.003-1.030) 06/05/21 12:20 Urine Protein <15 mg/dl mg/dL (Negative) 06/05/21 12:20 Urine Glucose (UA) Neg mg/dL (Negative) 06/05/21 12:20 Urine Ketones Neg mg/dL (Negative) 06/05/21 12:20 Urine Blood Mod (Negative) 06/05/21 12:20 Urine Nitrite Neg (Negative) 06/05/21 12:20 Urine Bilirubin Neg (Negative) 06/05/21 12:20 Urine Urobilinogen < 2.0 mg/dL (<2.0) 06/05/21 12:20 Ur Leukocyte Esterase Neg (Negative) 06/05/21 12:20 Urine WBC (Auto) 2.0 /HPF (0.0-6.0) 06/05/21 12:20 Urine RBC (Auto) 37.0 /HPF (0.0-6.0) 06/05/21 12:20 U Epithel Cells (Auto) 3.0 /HPF (0-13.0) 06/05/21 12:20 Urine Bacteria (Auto) 4+ /HPF (Negative) 06/05/21 12:20 Urine Mucus Few /HPF 06/05/21 12:20 Vancomycin Trough 25.1 ug/mL (5.0-20.0) H 06/08/21 04:52 LAURA Screen Negative (Negative) 06/05/21 15:10 Cardiolipid IgG Ab <2.0 GPL-U/mL (<20.0) 06/15/21 06:47 Cardiolipid IgA Ab <2.0 APL-U/mL (<20.0) 06/15/21 06:47 Cardiolipid IgM Ab <2.0 MPL-U/mL (<20.0) 06/15/21 06:47 Coronavirus (PCR) Negative (Negative) 06/05/21 07:26 Influenza A (Rapid) Negative (Negative) 06/05/21 14:06 Influenza A (RT-PCR) Negative (Negative) 06/05/21 14:06 Influenza B (Rapid) Negative (Negative) 06/05/21 14:06 Influenza B (RT-PCR) Negative (Negative) 06/05/21 14:06 Blood Type B POSITIVE 06/10/21 08:33 Antibody Screen Negative 06/10/21 08:33 Crossmatch See Detail 06/10/21 08:33 Rojas/IV: Voiding Method Bedside Commode Active Medications - Current Medications Current Medications: Generic Name Dose Route Start Last Admin Trade Name Freq PRN Reason Stop Dose Admin Albuterol 2.5 mg 05/30/21 05:14 Albuterol 2.5 Mg/3 Ml Nebu IH Q3HRT PRN Shortness Of Breath Alprazolam 0.5 mg 06/09/21 08:00 06/22/21 10:01 Alprazolam 0.5 Mg Tab PO 0.5 mg BID ELLIOTT Administration Amlodipine Besylate 10 mg 06/12/21 10:00 06/22/21 10:01 Amlodipine 10 Mg Tab PO 10 mg QDAY ELLIOTT Administration Aspirin 81 mg 05/30/21 10:00 06/22/21 10:01 Aspirin Ec 81 Mg Tab PO 81 mg QDAY ELLIOTT Administration Famotidine 20 mg 05/30/21 10:00 06/22/21 10:03 Famotidine 20 Mg Tab PO 20 mg BID ELLIOTT Administration Gabapentin 100 mg 06/10/21 22:00 06/22/21 05:36 Gabapentin 100 Mg Cap PO 100 mg Q8HR ELLIOTT Administration Heparin Sodium (Porcine) 4,500 unit 06/03/21 09:46 06/19/21 04:51 Heparin 10,000 Units/10 Ml Vial 40 unit/kg (4500 unit) 4,500 unit IV Administration Q6H PRN Anti-Xa Assay < 0.1 units/ml Heparin Sodium/Sodium Chloride 25,000 unit in 500 mls @ 30 mls/hr 06/03/21 10:00 06/22/21 12:23 Heparin/ 0.45% Nacl-25,000 Unit/500 Ml IV 2,200 units/hr TITR ELLIOTT 44 mls/hr Titration Protocol 1,500 UNITS/HR Cefazolin Sodium 2 gm/ Sodium 100 mls @ 200 mls/hr 06/08/21 12:00 06/22/21 12:23 Chloride IV 07/19/21 18:29 200 mls/hr Q6HR ELLIOTT Administration Protocol Levetiracetam 500 mg 05/30/21 10:00 06/22/21 10:02 Levetiracetam 500 Mg Tab PO 500 mg BID ELLIOTT Administration Levothyroxine Sodium 150 mcg 06/06/21 06:00 06/22/21 05:36 Levothyroxine 150 Mcg Tab PO 150 mcg DAILY@0600 ELLIOTT Administration Morphine Sulfate 2 mg 06/03/21 09:30 06/22/21 10:03 Morphine 2 Mg/1 Ml Inj IV 2 mg Q8H PRN Administration Pain, Moderate (4-6) Ondansetron HCl 4 mg 06/05/21 08:00 06/17/21 00:14 Ondansetron 4 Mg/2 Ml Inj IV 4 mg Q4H PRN Administration Nausea And Vomiting Propranolol HCl 40 mg 05/30/21 10:00 06/22/21 10:02 Propranolol 40 Mg Tab PO 40 mg BID ELLIOTT Administration Quetiapine Fumarate 100 mg 05/30/21 10:00 06/22/21 10:02 Quetiapine 100 Mg Tab PO 100 mg QAM ELLIOTT Administration Sodium Chloride 10 ml 05/30/21 10:00 06/22/21 10:03 Sodium Chloride 0.9% 10 Ml Flush Syringe IV 10 ml BID ELLIOTT Administration Sodium Chloride 10 ml 05/30/21 05:14 Sodium Chloride 0.9% 10 Ml Flush Syringe IV PRN PRN LINE FLUSH Tramadol HCl 100 mg 06/09/21 08:00 06/22/21 09:00 Tramadol 50 Mg Tab PO 100 mg BID ELLIOTT Administration Warfarin Sodium 20 mg 06/21/21 17:00 06/21/21 16:42 Warfarin 10 Mg Tab PO 06/22/21 16:59 20 mg ONCE@1700 NR Administration Warfarin Sodium 7.5 mg 06/21/21 17:00 06/21/21 16:43 Warfarin 7.5 Mg Tab PO 06/22/21 16:59 7.5 mg ONCE@1700 NR Administration Nutrition/Malnutrition Assess - Dietary Evaluation Nutrition/Malnutrition Findings: Nutrition Notes Start: 05/31/21 12:39 Freq: Status: Active Protocol: Document 06/21/21 15:28 JAMES (Rec: 06/21/21 16:40 JAMES [id number]) Nutrition Notes Initial or Follow up Reassessment Current Diagnosis Hypertension Other Pertinent Diagnosis Bilateral PE, Asthma, Cardiomyopathy, DVT, GERD, OHS , Seizure ... Current Diet Cardiac Diet (since B 06/22). Labs/Tests 06/21: Na 134, Cl 96.5. Pertinent Medications 06/21: Levothyroxine. Height 5 ft 7 in Weight 111 kg Dunbar Body Weight (kg) 61.36 BMI 38.3 Weight change and time frame No body weight change reported in 3 weeks. Weight Status Obese Subjective/Other Information RD consult for routine F/U on Dietary Advancement. Pt's PO intake of meals has been Good (100%), according to ADL notes. I will revert the diet to modified Cardiac Diet -No dark green leafy vegetables and spinach-, since will serve better current Pt's conditions that Renal Diet. I will discontinue Dietary Supplementation, since current PO intake of meals is at 100% , and is no longer needed. Pt is on Room Air, O2 saturation @ 96% according to Physical Assessment history notes. Percent of energy/protein needs met: Prescribed modified Cardiac Diet -no dark green leafy vegetables and spinachs- provides for energy/protein needs (2,230 Kcal/85 g) during LOS. Burn Absent Trauma Absent GI Symptoms None Food Allergy Yes Skin Integrity/Comment Assessment WNL. Current % PO Good (75-100%) Minimum of two criteria No #2 Nutrition Diagnosis Altered nutrition-related laboratory values Comments: I will revert the diet to modified Cardiac Diet -No dark green leafy vegetables and spinach-, since will serve better current Pt's conditions that Renal Diet. Etiology Inadequate diet prescription. As Evidenced by Signs and Symptoms Renal Diet prescribed when no renal specific needs are present. #1 Nutrition Diagnosis Inadequate protein-energy intake Comments: Pt's PO intake of meals has been Good (100%), according to ADL notes. Dietary Supplementation will be discontinued. Diagnosis Progress(for reassessment Resolved documentation) Is patient on ventilator? No Is Patient Ambulatory and/or Out of Bed Yes REE-(Lee-St. Jeor-ambulatory/OOB) [ 2356.419 [id number]] Kcal/Kg value to use for calculation 16 Approximate Energy Requirements Using 1776 kcal/Kg Calculation Used for Recommendations Kcal/kg Additional Notes Protein: 0.8-1 g/Kg AdjBW; 68- 86 g/day. Fluids: 1 ml/Kcal, or as per MD. Nutrition Intervention Change Diet Order: Start Cardiac Diet, exclude dark green leafy vegetables and spinach. Add Supplement/Snack (indicate name/kcal Discontinue. /protein ) Goal #1 Adjust the dietary intervention to better serve Pt's needs and clinical conditions during LOS. Goal #2 Maintain body weight within +/ -3% of admission body weight during LOS. Follow-Up By: 06/28/21 Additional Comments Continue monitoring food tolerance, %PO intake of meals , and BM.
--- NOTE | 2021-06-22 15:01 | Hem/Onc Progress Note ---
Subjective Date of service: 06/22/21 Interval history: Heme progress note Televisit via [facility] CPT 84945 Dx PE 40yo obese AA woman 244 lbs with h/o clotting, including PE and maybe cardiac clot has had reactions to DOAC and lovenox-->prescribed Coumadin but assumed to be not taking it (based on subtherapeutic INR) ----Reports nausea with Xarelto, Pradaxa, Eliquis, and hives with Lovenox. Reports heavy menstrual bleeding-->found to have low MCV, needed RBC transfusion Chest CT shows evidence of PE and pneumonitis changes Feels better today. No overt bleeding noted or reported. Discussed possibly changing from Coumadin to Xarelto due to possible resistance vs noncompliance. Patient is refusing changing to Xarelto. Wants to continue to take Coumadin. Labs reviewed and discussed with patient. H/H stable 9. WBC 5.2 Plts 409 INR 1 DATA REVIEWED BELOW Cardiolipin ab negative abd/pel CT negative IMP: Clotting tendency--s/p "new" PE, now "requiring" anticoag Continues with subtherapeautic INR, likely not taking Coumadin doubt she has "Coumadin resistance" Suspect "cheeking" Coumadin , observe her for inpatient medication noncompliance (make sure she takes Coumadin) Therapeautic INRs on [place] have been observed since 2019, proving this is not a resistance issue Patient refused changing from Coumadin to Xarelto Recent severe iron deficiency presumed-->s/p RBC transfusion and IV iron infusions R/o sickle cell trait, pending hgep PLAN: IV heparin--> Coumadin Recommended that she stays in [facility] until PT INR >2, so you will know her dose Observe her for inpatient medication noncompliance (make sure she takes coumadin) Psych consult to evaluate medication compliance/fractious behavior May be worth changing to Xarelto if continues with subtherapeatic INR and determined compliance of Coumadin Pending hgep Laboratory Last Values WBC 5.2 K/mm3 (4.5-11.0) 06/20/21 05:00 Hgb 9.2 gm/dl (10.1-14.3) L 06/20/21 05:00 Hct 30.0 % (30.3-42.9) L 06/20/21 05:00 MCV 76 fl (79-97) L 06/20/21 05:00 Plt Count 409 K/mm3 (140-440) 06/20/21 05:00 Add Manual Diff Complete 06/20/21 05:00 Total Counted 100 06/20/21 05:00 Seg Neuts % (Manual) 51.0 % (40.0-70.0) 06/20/21 05:00 Band Neutrophils % 0 % 06/20/21 05:00 Lymphocytes % (Manual) 37.0 % (13.4-35.0) H 06/20/21 05:00 Reactive Lymphs % (Man) 0 % 06/20/21 05:00 Monocytes % (Manual) 4.0 % (0.0-7.3) 06/20/21 05:00 Eosinophils % (Manual) 8.0 % (0.0-4.3) H 06/20/21 05:00 Basophils % (Manual) 0 % (0.0-1.8) 06/20/21 05:00 Metamyelocytes % 0 % 06/20/21 05:00 Myelocytes % 0 % 06/20/21 05:00 Promyelocytes % 0 % 06/20/21 05:00 Blast Cells % 0 % 06/20/21 05:00 Nucleated RBC % Not Reportable 06/20/21 05:00 Seg Neutrophils # Man 2.7 K/mm3 (1.8-7.7) 06/20/21 05:00 Band Neutrophils # 0.0 K/mm3 06/20/21 05:00 Lymphocytes # (Manual) 1.9 K/mm3 (1.2-5.4) 06/20/21 05:00 Abs React Lymphs (Man) 0.0 K/mm3 06/20/21 05:00 Monocytes # (Manual) 0.2 K/mm3 (0.0-0.8) 06/20/21 05:00 Eosinophils # (Manual) 0.4 K/mm3 (0.0-0.4) 06/20/21 05:00 Basophils # (Manual) 0.0 K/mm3 (0.0-0.1) 06/20/21 05:00 Metamyelocytes # 0.0 K/mm3 06/20/21 05:00 Myelocytes # 0.0 K/mm3 06/20/21 05:00 Promyelocytes # 0.0 K/mm3 06/20/21 05:00 Blast Cells # 0.0 K/mm3 06/20/21 05:00 WBC Morphology Not Reportable 06/20/21 05:00 Hypersegmented Neuts Not Reportable 06/20/21 05:00 Hyposegmented Neuts Not Reportable 06/20/21 05:00 Hypogranular Neuts Not Reportable 06/20/21 05:00 Smudge Cells Not Reportable 06/20/21 05:00 Toxic Granulation Not Reportable 06/20/21 05:00 Toxic Vacuolation Not Reportable 06/20/21 05:00 Dohle Bodies Not Reportable 06/20/21 05:00 Pelger-Huet Anomaly Not Reportable 06/20/21 05:00 Jaime Rods Not Reportable 06/20/21 05:00 Platelet Estimate Consistent w auto 06/20/21 05:00 Clumped Platelets Not Reportable 06/20/21 05:00 Plt Clumps, EDTA Not Reportable 06/20/21 05:00 Large Platelets Not Reportable 06/20/21 05:00 Giant Platelets Not Reportable 06/20/21 05:00 Platelet Satelliting Not Reportable 06/20/21 05:00 Plt Morphology Comment Not Reportable 06/20/21 05:00 RBC Morphology Not Reportable 06/20/21 05:00 Dimorphic RBCs Not Reportable 06/20/21 05:00 Polychromasia Not Reportable 06/20/21 05:00 Hypochromasia 1+ 06/20/21 05:00 Poikilocytosis Not Reportable 06/20/21 05:00 Anisocytosis 2+ 06/20/21 05:00 Microcytosis Not Reportable 06/20/21 05:00 Macrocytosis Not Reportable 06/20/21 05:00 Spherocytes Not Reportable 06/20/21 05:00 Pappenheimer Bodies Not Reportable 06/20/21 05:00 Sickle Cells Not Reportable 06/20/21 05:00 Target Cells Not Reportable 06/20/21 05:00 Tear Drop Cells Not Reportable 06/20/21 05:00 Ovalocytes Not Reportable 06/20/21 05:00 Helmet Cells Not Reportable 06/20/21 05:00 Graves-[place]per[place] Bodies Not Reportable 06/20/21 05:00 [place] Rings Not Reportable 06/20/21 05:00 [place] Cells Not Reportable 06/20/21 05:00 Bite Cells Not Reportable 06/20/21 05:00 Crenated Cell Not Reportable 06/20/21 05:00 Elliptocytes Not Reportable 06/20/21 05:00 Acanthocytes (Spur) Not Reportable 06/20/21 05:00 Rouleaux Not Reportable 06/20/21 05:00 Hemoglobin C Crystals Not Reportable 06/20/21 05:00 Schistocytes Not Reportable 06/20/21 05:00 Malaria parasites Not Reportable 06/20/21 05:00 Koffi Bodies Not Reportable 06/20/21 05:00 Hem Pathologist Commnt No 06/20/21 05:00 PT 14.3 Sec. (12.2-14.9) 06/22/21 08:26 INR 1.00 (0.87-1.13) 06/22/21 08:26 APTT 52.6 Sec. (24.2-36.6) H 05/31/21 06:40 Fibrinogen 420 mg/dl (211-480) 06/16/21 03:15 Heparin Anti-Xa Level 0.28 U.I./ml (0.3-0.7) L 06/22/21 08:26 Creatinine 0.7 mg/dL (0.6-1.2) 06/20/21 05:00 Estimated GFR > 60 ml/min 06/20/21 05:00 BUN/Creatinine Ratio 10 % 06/20/21 05:00 Glucose 90 mg/dL (65-100) 06/20/21 05:00 POC Glucose 77 mg/dL (70-105) 06/18/21 07:45 Lactic Acid 0.70 mmol/L (0.7-2.0) 06/05/21 10:40 Calcium 9.2 mg/dL (8.4-10.2) 06/20/21 05:00 Total Bilirubin < 0.20 mg/dL (0.1-1.2) 06/14/21 Unknown AST 8 units/L (5-40) 06/14/21 Unknown ALT < 5 units/L (7-56) L 06/14/21 Unknown Alkaline Phosphatase 73 units/L (35-129) 06/14/21 Unknown Troponin T < 0.010 ng/mL (0.00-0.029) 05/30/21 04:46 Total Protein 5.9 g/dL (6.3-8.2) L 06/14/21 Unknown Albumin 3.5 g/dL (3.9-5) L 06/14/21 Unknown Albumin/Globulin Ratio 1.5 % 06/14/21 Unknown LAURA Screen Negative (Negative) 06/05/21 15:10 Cardiolipid IgG Ab <2.0 GPL-U/mL (<20.0) 06/15/21 06:47 Cardiolipid IgA Ab <2.0 APL-U/mL (<20.0) 06/15/21 06:47 Cardiolipid IgM Ab <2.0 MPL-U/mL (<20.0) 06/15/21 06:47 Blood Type B POSITIVE 06/10/21 08:33 Antibody Screen Negative 06/10/21 08:33 Crossmatch See Detail 06/10/21 08:33 Objective - Constitutional Vitals: Last Vital Signs Temp 98.6 F 06/22/21 04:38 Pulse 66 06/22/21 06:00 Resp 19 06/22/21 04:38 BP 114/51 06/22/21 04:38 Pulse Ox 100 06/22/21 10:00 - Labs Lab Results: Laboratory Results - last 24 hr 06/22/21 08:26 PT 14.3 INR 1.00 Heparin Anti-Xa Level 0.28 L Medications & Allergies - Medications Allergies/Adverse Reactions: Allergies acetaminophen [From Tylenol] Allergy (Verified 12/16/20 11:52) Hives enoxaparin [From Lovenox] Allergy (Verified 01/18/21 13:51) Rash, fever, vomiting garlic Allergy (Verified 01/18/21 13:51) Hives oxycodone [From Percocet] Allergy (Verified 01/18/21 13:51) Itching, rash peanut oil Allergy (Verified 01/18/21 13:51) Rash Penicillins Allergy (Verified 01/18/21 13:51) hives, vomiting ibuprofen [From Motrin] Adverse Reaction (Verified 01/18/21 13:51) nausea/vomiting Home Medications: Home Medications Medication Instructions Recorded Confirmed Last Taken Type ALPRAZolam [Xanax TAB] 0.5 mg PO BID #14 tablet 06/23/21 Unknown Rx Aspirin EC [Halfprin EC] 81 mg PO QDAY #30 tab 06/23/21 Unknown Rx Famotidine [Pepcid] 20 mg PO BID #30 tablet 06/23/21 Unknown Rx Gabapentin 100 mg PO Q8HR #90 capsule 06/23/21 Unknown Rx Levothyroxine [Synthroid] 150 mcg PO DAILY@0600 #30 tablet 06/23/21 Unknown Rx QUEtiapine [SEROquel] 100 mg PO QAM #30 tab 06/23/21 Unknown Rx Warfarin [Coumadin] 15 mg PO DAILY@1700 #60 tablet 06/23/21 Unknown Rx amLODIPine 10 mg PO QDAY #30 tablet 06/23/21 Unknown Rx cephALEXin [Keflex] 500 mg PO Q8HR #84 cap 06/23/21 Unknown Rx levETIRAcetam [Keppra TAB] 500 mg PO BID #60 tab 06/23/21 Unknown Rx propranoloL [Inderal] 40 mg PO BID #60 tab 06/23/21 Unknown Rx traMADoL [Ultram 50 MG tab] 50 mg PO TID PRN #12 06/23/21 Unknown Rx Active Medications: Generic Name Dose Route Start Last Admin Trade Name Freq PRN Reason Stop Dose Admin Albuterol 2.5 mg 05/30/21 05:14 Albuterol 2.5 Mg/3 Ml Nebu IH Q3HRT PRN Shortness Of Breath Alprazolam 0.5 mg 06/09/21 08:00 06/22/21 10:01 Alprazolam 0.5 Mg Tab PO 0.5 mg BID ELLIOTT Administration Amlodipine Besylate 10 mg 06/12/21 10:00 06/22/21 10:01 Amlodipine 10 Mg Tab PO 10 mg QDAY ELLIOTT Administration Aspirin 81 mg 05/30/21 10:00 06/22/21 10:01 Aspirin Ec 81 Mg Tab PO 81 mg QDAY ELLIOTT Administration Famotidine 20 mg 05/30/21 10:00 06/22/21 10:03 Famotidine 20 Mg Tab PO 20 mg BID ELLIOTT Administration Gabapentin 100 mg 06/10/21 22:00 06/22/21 13:50 Gabapentin 100 Mg Cap PO 100 mg Q8HR ELLIOTT Administration Heparin Sodium (Porcine) 4,500 unit 06/03/21 09:46 06/19/21 04:51 Heparin 10,000 Units/10 Ml Vial 40 unit/kg (4500 unit) 4,500 unit IV Administration Q6H PRN Anti-Xa Assay < 0.1 units/ml Heparin Sodium/Sodium Chloride 25,000 unit in 500 mls @ 30 mls/hr 06/03/21 10:00 06/22/21 12:23 Heparin/ 0.45% Nacl-25,000 Unit/500 Ml IV 2,200 units/hr TITR ELLIOTT 44 mls/hr Titration Protocol 1,500 UNITS/HR Cefazolin Sodium 2 gm/ Sodium 100 mls @ 200 mls/hr 06/08/21 12:00 06/22/21 12:23 Chloride IV 07/19/21 18:29 200 mls/hr Q6HR ELLIOTT Administration Protocol Levetiracetam 500 mg 05/30/21 10:00 06/22/21 10:02 Levetiracetam 500 Mg Tab PO 500 mg BID ELLIOTT Administration Levothyroxine Sodium 150 mcg 06/06/21 06:00 06/22/21 05:36 Levothyroxine 150 Mcg Tab PO 150 mcg DAILY@0600 ELLIOTT Administration Morphine Sulfate 2 mg 06/03/21 09:30 06/22/21 10:03 Morphine 2 Mg/1 Ml Inj IV 2 mg Q8H PRN Administration Pain, Moderate (4-6) Ondansetron HCl 4 mg 06/05/21 08:00 06/17/21 00:14 Ondansetron 4 Mg/2 Ml Inj IV 4 mg Q4H PRN Administration Nausea And Vomiting Propranolol HCl 40 mg 05/30/21 10:00 06/22/21 10:02 Propranolol 40 Mg Tab PO 40 mg BID ELLIOTT Administration Quetiapine Fumarate 100 mg 05/30/21 10:00 06/22/21 10:02 Quetiapine 100 Mg Tab PO 100 mg QAM ELLIOTT Administration Sodium Chloride 10 ml 05/30/21 10:00 06/22/21 10:03 Sodium Chloride 0.9% 10 Ml Flush Syringe IV 10 ml BID ELLIOTT Administration Sodium Chloride 10 ml 05/30/21 05:14 Sodium Chloride 0.9% 10 Ml Flush Syringe IV PRN PRN LINE FLUSH Tramadol HCl 100 mg 06/09/21 08:00 06/22/21 09:00 Tramadol 50 Mg Tab PO 100 mg BID ELLIOTT Administration Warfarin Sodium 30 mg 06/22/21 17:00 Warfarin 10 Mg Tab PO 06/23/21 16:59 ONCE@1700 NR
[2021-06-22] MEDS ORDERED: WARFARIN 10 MG TAB PO NR (17:00)
[2021-06-23] MEDS: HEPARIN/ 0.45% NACL DRIP 25,000 UNIT/500 ML BAG IV SCH (00:01)
[2021-06-23] MEDS: MORPHINE 2 MG/1 ML INJ IV PRN ×2 (00:55→08:33)
[2021-06-23] MEDS: LEVOTHYROXINE 150 MCG TAB PO SCH (06:19)
[2021-06-23] MEDS: GABAPENTIN 100 MG CAP PO SCH (06:19)
[2021-06-23 07:12] LABS: INR 1.21 (0.87-1.13)
[2021-06-23 07:31] VITALS: BP 113/61
[2021-06-23] MEDS: ALPRAZolam 0.5 MG TAB PO SCH (09:47)
[2021-06-23] MEDS: amLODIPine 10 MG TAB PO SCH (09:47)
[2021-06-23] MEDS: ASPIRIN EC 81 MG TAB PO SCH (09:47)
[2021-06-23] MEDS: traMADol 50 MG TAB PO SCH (09:47)
[2021-06-23] MEDS: PROPRANOLOL 40 MG TAB PO SCH (09:47)
[2021-06-23] MEDS: QUEtiapine 100 MG TAB PO SCH (09:47)
[2021-06-23] MEDS: levETIRAcetam 500 MG TAB PO SCH (09:48)
[2021-06-23] MEDS: FAMOTIDINE 20 MG TAB PO SCH (09:48)
--- NOTE | 2021-06-23 11:05 | Discharge Summary ---
Providers - Providers Date of Admission: 05/30/21 05:14 Attending physician: JOHN MONTES MD 06/05/21 07:45 Consult to Physician [CONS] Routine Comment: Consulting Provider: STEPHANIE DUVAL Physician Instructions: Reason For Exam: sepsis 06/05/21 10:22 Consult to Physician [CONS] Routine Comment: Consulting Provider: JEISON PAREDES Physician Instructions: Reason For Exam: pulmonary embolisim 06/07/21 12:23 Midline [Consult to PICC Line RN] [CONS] Stat Reason For Exam: Heparin IV Type Line:: Midline 06/08/21 12:33 Consult to Physician [CONS] Routine Comment: Consulting Provider: DEVIKA MELO Physician Instructions: Reason For Exam: endocarditis, brunilda 06/08/21 12:57 Physical Therapy Evaluation and Treat [CONS] Routine Comment: Reason For Exam: weakness,difficulty ambulating 06/10/21 12:14 Consult to Case Management [CONS] Routine Services Needed at Discharge: Other Notified:: CM Comment:: IV antibiotics Additional Physician Instructions: [facility] O: [phone] F: [phone] OUTPATIENT PARENTERAL ANTIBIOTIC THERAPY (OPAT) ORDERS Diagnoses: MSSA bacteremia Antimicrobial administration: IV Ancef 2 g every 8 hours for 6 weeks ending 07/19/2021 - Remove PICC line after last dose unless otherwise instructed. Lines: Maintain IV access with weekly dressing changes and locks per protocol. Lab monitoring: - CBC with differential, CMP once a week every Monday while on IV antibiotics. - Please fax results to [phone] and call [phone] for critical lab results. Stephanie Duval MD, FACP, [facility] 06/11/21 11:48 Consult to PICC Line RN [CONS] Routine Reason For Exam: IV abx Type Line:: PICC 06/14/21 08:10 Consult to Physician [CONS] Routine Comment: Consulting Provider: ROSALIO BATES Physician Instructions: Reason For Exam: warfarin resistance? 06/22/21 14:57 Consult Geriatric-Psych [CONS] Routine Consulting Provider: CHASIDY JOHNSTON Reason For Exam: Medication compliance 06/23/21 08:48 Consult to Physician [CONS] Routine Comment: Consulting Provider: KLAUDIA BERMEO Physician Instructions: Reason For Exam: munchausen syndrome suspected Primary care physician: NIKKY BARNETT Hospitalization Reason for admission: Bilateral PE Condition: Stable Hospital course: 40 years old female with past medical history of hypertension, PE x2, (R lung 05/2016, L lung 01/2017--on coumadin), R leg DVT 03/2017, Graves Disease, heart murmur, aortic dissection, PERICARDITIS, thyroid storm, and GERD admitted for acute bilateral pulmonary thromboemboli with evidence of mild right ventricular strain on heparin gtt and warfarin. Assessment and Plan: Sepsis, MSSA bacteremia -Etiology unclear, line infection vs endocarditis, infected TEVAR graft. -06/04 bcx: 3/ bottles MSSA - 06/07 bcx: NGTD - urine culture: NGTD -TTE negative for valvular vegetations -BRUNILDA negative for endocarditis - ID following -Continue Ancef -DAVID PICC line noted, remove RIJ CVC Hypotension (resolved) -Patient with low blood pressure at night -IVF started -avoid antihypotensives -labetalol currently held Acute pulmonary embolism History of DVT on warfarin Troponin unremarkable, chest x-ray unremarkable, bilateral lower extremity venous Dopplers unremarkable for acute DVT CT angio chest revealing acute bilateral pulmonary emboli with evidence of right heart strain Home medication of warfarin 7.5 mg daily; however, INR 1.03. Patient endorses being compliant with her anticoagulation. Continue heparin drip and bridged warfarin daily until therapeutic (goal 2.53.5). TTE without evidence of right heart strain Patient needs to be taking BOTH warfarin and heparin until INR goal of 2.5 achieved. - Remains subtherapeutic despite Heparin and Warfarin - Hematology consulted for possible warfarin resistance Seizure disorder Anxiety Continue home medications: Keppra 500 mg twice daily, Quetiapine 100 mg every morning and 300 mg nightly, alprazolam 0.5 mg 3 times daily History of aortic dissection s/p tevar. Hypothyroidism -resume home levothyroxine microcytic anemia -stable Transfuse if hemoglobin less than 7 or patient become symptomatic Questionable compliance with medication morbid obesity Weight loss counseling Exercise counseling - BMI 39.1 - Counseled patient on the importance of weight loss, incorporating exercise, and dietary changes (lean meats, fresh fruits and vegetables, and water intake). Patient expresses understanding. Hospital Course: 06/05: Is unclear to me why the patient was transferred to the [facility] as I do not have any clear documentation to the results but in effect I was told by the nurse that the patient had pulled out his for her femoral line and did not have an access. Patient appears to have been having fever for a few days no known etiology we will proceed with a sepsis work-up although closely reviewing her case shows a history of thyroid storm in the past and she has not been receiving her thyroid medication while she does not have confusion at this time she does have tachycardia and tachypnea. We will give her a dose of IV levothyroxine today and start her daily dose of levothyroxine a.m. She has been on her propranolol although her home dose appears confusing as she gets 40 mg once daily and also 20 mg twice a day will discuss with her to clarify this and also with her pharmacy. She did have a right IJ triple-lumen catheter placed yesterday I discussed with her in the setting of well-documented by the nurse that she takes Midol at home which contains acetaminophen she is agreeable to trial acetaminophen as she wants to come off the cooling blanket. I also con sulted ID and ordered a urinalysis with urine culture and some fluid support. I reviewed her CT scan and echocardiogram while the CT mentions the pulmonary embolism with mild right heart strain the echo shows a RVSP of 32 mmHg. I will proceed with consulting pulmonary in her case she would definitely need a general merchandise manager outpatient. She continues on heparin drip while awaiting for therapeutic INR. In the meantime continue with antibiotic Right internal jugular vein triple-lumen catheter placement under ultrasound guidance 06/06: Patient seen and examined, showing some improvement, will follow cultures result, Continue abx, clinical stable, ID input, close eye on Hemoglobin. WBC mildly trended up. will transfer back to tele. 06/07: Continue supportive care, awaiting Cultures for ID and sensitivity in the meantime continue antibiotic. Am LABS. Patient continues on heparin drip until INR is therapeutic. I encouraged her to ambulate in her room and also set up on the chair. Cultures for COVID was negative. We will obtain PT OT evaluation. In short summary patient is a 40-year-old female with hypertension pulmonary embolism lower extremity DVT in the past on Coumadin who presented with shortness of breath diagnosed with pulmonary embolism admitted intermittently sepsis doubt septic emboli currently on antibiotics. Restarted on her thyroid medication with no evidence of thyroid storm. 06/08: resting comfortably on encounter. Afebrile today. Vital signs improved. 94% on 3L/min NC. Pain medication appears to be excessive as patient is heavily sedated, will scale back pain medication. D/w cardiology Dr Melo regarding concern for endocarditis and possible infected TEVAR graft as potential source of infection. Consult placed for BRUNILDA. Will continue to follow culture data. Continue IV vancomycin per ID direction. INR remains subtherapeutic for treatment of DVT/PE but increased to 1.48, will continue warfarin at current dosage and heparin gtt at this time. 06/09: continue therapy for MSSA bacteremia. Awaiting BRUNILDA completion. INR 1.54, warfarin 12.5 mg dose given today. Anemic today 6.9, ordered 1 unit prbc. Patient denies any rectal bleeding, bleeding from lines, hematemesis. Suspect anemia of chronic disease and possibly iatrogenic induced from multiple blood draw/line placement attempts. Lower suspicion for occult hematoma but will order CTAP. 06/10: Abx orders noted by ID. INR remains subtherapetuic, did not receive warfarin dose for some apparent reason. Pharmacy will give 15 mg dose today. Occult bleed r/o on ctap. No rectal bleeding reported. Will transfuse 1 unit prbc. Restart heparin gtt. Will follow up results of BRUNILDA from today. 06/11: BRUNILDA negative for endocarditis. INR subtherapuetic. unfortunately patient has missed last two day of warfarin dosing and inr reflects this. Patient could also be warfarin resistant. Patient needs to be receiving BOTH warfarin and heparin gtt until INR goal of 2.5 achieved. D/w pharmacy, will continue with 15 mg dosing at this time. Continue Iv abx. Discharge plan is for early next week. 06/12: Hypertensive this AM, added amlodipine for better BP control. INR 1.16. Continue heparin gtt while transitioning to warfarin. Plan for discharge early next week. CM working on OP IV abx arrangement. 06/13: Continue heparin gtt and warfarin. INR remains subtherapeutic. 06/14: Patient remains subtherapeutic despite heparin gtt and Warfarin. Will consult hematology for possible warfarin resistance and for further recs. Continue heparin gtt and warfarin for now. Patient remains on IV Abx, ancef per ID, DAVID PICC line noted remove RIJ CVC. 06/15: Continue heparin drip and warfarin until INR at goal of 2.5. . Patient remains on IV Abx, ancef per ID, DAVID PICC line noted remove RIJ CVC. 06/16: Continue heparin drip and warfarin until INR at goal of 2.5. . Patient remains on IV Abx, ancef per ID, DAVID PICC line noted remove RIJ CVC. Continue Keppra as needed for AEDs. Continue thyroid replacement therapy. 06/17: Continue heparin drip and warfarin until INR at goal of 2.5. . Patient remains on IV Abx, ancef per ID, DAVID PICC line noted remove RIJ CVC. Continue Keppra as needed for AEDs. 06/18: Continue heparin drip and warfarin until INR at goal of 2.5. . Patient remains on IV Abx, ancef per ID, DAVID PICC line noted remove RIJ CVC. Continue Keppra as needed for AEDs. INR actually decreased this morning. Pharmacy to dose Coumadin per protocol 06/19: Continue heparin drip and warfarin until INR at goal of 2.5. . Patient remains on IV Abx, ancef per ID and should be treated for total of 6 weeks. End date 07/19/2021. Case management to arrange for home IV antibiotics when INR therapeutic and patient ready for discharge. 06/20: Continue heparin drip and warfarin until INR at goal of 2.5. . Patient remains on IV Abx, ancef per ID and should be treated for total of 6 weeks. End date 07/19/2021. Case management to arrange for home IV antibiotics when INR therapeutic and patient ready for discharge. 06/21: INR from yesterday is 1.10. Follow-up INR today. Continue heparin drip and warfarin until INR at goal of 2.5. . Patient remains on IV Abx, ancef per ID and should be treated for total of 6 weeks. End date 07/19/2021. Case management to arrange for home IV antibiotics when INR therapeutic and patient ready for discharge. 06/22: Continue supportive care awaiting therapeutic INR with a goal of 2.5-3. I reviewed her entire stay even going as far back as 2020 patient's INR has always been subtherapeutic. Hematology was consulted during this admission to evaluate for possible warfarin resistance the recommend that the patient stays in-house until INR is therapeutic. Nursing staff has been observing patient take her Coumadin. Dose has been adjusted by pharmacy to 20 mg and I agree with this. 06/23: Had extensive discussion with the patient about our concerns for why her INR has not improved I also did discuss with general merchandise manager today before are concerning the same effect patient claims that Xarelto makes her very nauseous and unable to take I do not have a history with this has been tried in fact she has been tried on Eliquis in the past when asked about her records and her doctors so that we can call in confirm her history she got visibly upset and wanted to sign out from the hospital she tells me that she had a mechanical valve placed here in this hospital less than a year ago I have scanned through the entire record and I do not see this when I discussed with her about having a TeVR procedure for her dissection she reluctantly agreed that that was the procedure she was talking about. She is states that warfarin 7.5 is enough for her but outside of her "cheeking and discarding" the medication this appears not to be accurate as and I had not budged for almost 20 days. I did advise her that with her signing out I will increase her warfarin to 15 mg which is a dose that she had been on in the past currently she is getting 30 mg today. I also did discuss with the infectious disease doctor and we went over her cultures which showed MSSA as a result of line infection and central line was taken out the repeat culture has been negative we agreed that she can safely be transitioned to an oral antibiotics. Case management is working on this to ensure that the hospital covers cost of medications for her for the next 30 days she is to follow-up with her primary care physician she is to fill out all the paperwork that is required to continue to receive medications at home to her pharmacy and through her insurance or to joceline programs that are available to the medication She was seen by psychiatry team. Throughout the conversation she repeats the same thing but does show evidence of comprehension of the discussion that you have had with her. I have stressed extensively compliance with medication and compliance with following up with her doctors. Disposition: 30 STILL A PATIENT Final Discharge Diagnosis (Prints w/discharge instructions): Bilateral pulmonary embolism with sepsis, MSSA bacteremia Time spent for discharge: 35-minute Core Measure Documentation - Palliative Care Palliative Care/ Comfort Measures: Not Applicable - Core Measures Any of the following diagnoses?: none Exam - Physical Exam Narrative exam: GENERAL: Well-developed well-nourished. In no acute distress. but no respiratory distress, sitting up, CHEST/LUNGS: CTAB on room air HEART/CARDIOVASCULAR: Regular rate and rhythm. No murmur, rubs or gallops appre ciated. ABDOMEN: +BS. NT/ND. SKIN: No rashes noted. : Right IJ cath in place NEURO: No focal motor deficit. MUSCULOSKELETAL: No joint effusion, EXTREMITIES: No cyanosis, clubbing or trace edema. PSYCH: Cooperative. - Constitutional Vitals: Temp Pulse Resp BP Pulse Ox 98.6 F 61 18 113/61 100 06/23/21 05:50 06/23/21 06:00 06/23/21 05:50 06/23/21 05:50 06/23/21 08:23 Plan Activity: advance as tolerated, fall precautions Diet: low fat Special Instructions: record daily weights, record daily BP diary Plan of Treatment: must be complaint with meds must monitor INR to ensure its therapeutic Follow up with: NIKKY BARNETT MD [Primary Care Provider] - 7 Days KLAUDIA BERMEO MD [Staff Physician] - 7 Days ASHLEY RAMON MD [Staff Physician] - 7 Days STEPHANIE DUVAL MD [Staff Physician] - 7 Days Forms: AMA Form, Warfarin Discharge Instruction Prescriptions: amLODIPine 10 mg PO QDAY #30 tablet Warfarin [Coumadin] 15 mg PO DAILY@1700 #60 tablet Gabapentin 100 mg PO Q8HR #90 capsule Aspirin EC [Halfprin EC] 81 mg PO QDAY #30 tab propranoloL [Inderal] 40 mg PO BID #60 tab cephALEXin [Keflex] 500 mg PO Q8HR #84 cap levETIRAcetam [Keppra TAB] 500 mg PO BID #60 tab Famotidine [Pepcid] 20 mg PO BID #30 tablet QUEtiapine [SEROquel] 100 mg PO QAM #30 tab Levothyroxine [Synthroid] 150 mcg PO DAILY@0600 #30 tablet traMADoL [Ultram 50 MG tab] 50 mg PO TID PRN #12 PRN Reason: Pain , Severe (7-10) ALPRAZolam [Xanax TAB] 0.5 mg PO BID #14 tablet
--- NOTE | 2021-06-23 11:56 | Consultation ---
History of Present Illness - Reason for Consult Consult date: 06/23/21 Reason for consult: med compliance - Chief Complaint Chief complaint: Chest pain - History of Present Psychiatric Illness The patient is a 40 year old female with history of anxiety and PTSD who was consulted for medication compliance. The patient was seen today, she is calm, alert and oriented x3. The patient is well known to this facility. She reports being compliant with psychotropic medications, states she gets her medications from [facility]. She reports residing with a "homebody." She denies being depressed or having excessive anxiety. The patient denies any current suicidal/homicidal ideation and denies hallucinations. PAST PSYCHIATRIC HISTORY Diagnoses: Anxiety, PTSD Suicide attempts or Self-harm behavior: Denies Prior psychiatric hospitalizations: Denies Substance Abuse history: Denies Previous psychiatric medications tried: Seroquel Outpatient treatment:Yes PAST MEDICAL HISTORY: None reported Family Psychiatric History: None reported or documented SOCIAL HISTORY Marital Status: Single Living Arrangements: Lives with a friend Employment Status:Unemployed Access to guns/weapons: Denies Education: GED History of Abuse: Denies Legal History: unknown REVIEW OF SYSTEMS Constitutional: Negative for weight loss ENT: Negative for stridor Respiratory: Negative for cough or hemoptysis All other systems reviewed and are negative MENTAL STATUS EXAMINATION General Appearance and Behavior: Age appropriate, good hygiene, wearing appropriate clothes, good eye contact, anxious, cooperative Cooperation: Participating/engaged Psychomotor Behavior: Psychomotor normal Mood:calm Affect and affective range: congruent with stated mood Thought Process: Goal directed Thought Content: Goal oriented Speech: Normal tone and pace Suicidal Ideation:Denies Homicidal Ideation: Denies Hallucinations: Denies Delusions: None Impulse Control: Limited Insight and Judgment: Limited insight and judgment Memory: Limited Attention: attentive Orientation: Alert, oriented Diagnoses: HX of Anxiety Treatment Plan Continue home meds PSYCHOTHERAPY: Supportive psychotherapy provided MEDICAL: Per primary team DELIRIUM PRECAUTIONS: Please re-orient patient frequently, keep lights on during the day, and minimize benzodiazepines and opiates as these medications could worsen patient's confusion. BOILER OR ENGINE OPERATOR: Per medical team DISPOSITION:Do not recommend acute psychiatric inpatient treatment. Residential Property Manager will provide patient with psychiatric outpatient resources. Will sign off. Thanks. Thank you for the consult. Case staffed with Dr. Aaron Medications and Allergies Medications and Allergies Allergies Allergy/AdvReac Type Severity Reaction Status Date / Time acetaminophen [From Tylenol] Allergy Hives Verified 12/16/20 11:52 enoxaparin [From Lovenox] Allergy Rash, Verified 01/18/21 13:51 fever, vomiting garlic Allergy Hives Verified 01/18/21 13:51 oxycodone [From Percocet] Allergy Itching, Verified 01/18/21 13:51 rash peanut oil Allergy Rash Verified 01/18/21 13:51 Penicillins Allergy hives, Verified 01/18/21 13:51 vomiting ibuprofen [From Motrin] AdvReac nausea/vomi Verified 01/18/21 13:51 ting Home Medications Medication Instructions Recorded Confirmed Last Taken Type ALPRAZolam [Xanax TAB] 0.5 mg PO BID #14 tablet 06/23/21 Unknown Rx Aspirin EC [Halfprin EC] 81 mg PO QDAY #30 tab 06/23/21 Unknown Rx Famotidine [Pepcid] 20 mg PO BID #30 tablet 06/23/21 Unknown Rx Gabapentin 100 mg PO Q8HR #90 capsule 06/23/21 Unknown Rx Levothyroxine [Synthroid] 150 mcg PO DAILY@0600 #30 tablet 06/23/21 Unknown Rx QUEtiapine [SEROquel] 100 mg PO QAM #30 tab 06/23/21 Unknown Rx Warfarin [Coumadin] 15 mg PO DAILY@1700 #60 tablet 06/23/21 Unknown Rx amLODIPine 10 mg PO QDAY #30 tablet 06/23/21 Unknown Rx cephALEXin [Keflex] 500 mg PO Q8HR #84 cap 06/23/21 Unknown Rx levETIRAcetam [Keppra TAB] 500 mg PO BID #60 tab 06/23/21 Unknown Rx propranoloL [Inderal] 40 mg PO BID #60 tab 06/23/21 Unknown Rx traMADoL [Ultram 50 MG tab] 50 mg PO TID PRN #12 06/23/21 Unknown Rx Active Meds: Active Medications Albuterol (Albuterol 2.5 Mg/3 Ml Nebu) 2.5 mg IH Q3HRT PRN PRN Reason: Shortness Of Breath Alprazolam (Alprazolam 0.5 Mg Tab) 0.5 mg PO BID [facility] Last Admin: 06/23/21 09:47 Dose: 0.5 mg Amlodipine Besylate (Amlodipine 10 Mg Tab) 10 mg PO QDAY [facility] Last Admin: 06/23/21 09:47 Dose: 10 mg Aspirin (Aspirin Ec 81 Mg Tab) 81 mg PO QDAY [facility] Last Admin: 06/23/21 09:47 Dose: 81 mg Famotidine (Famotidine 20 Mg Tab) 20 mg PO BID [facility] Last Admin: 06/23/21 09:48 Dose: 20 mg Gabapentin (Gabapentin 100 Mg Cap) 100 mg PO Q8HR [facility] Last Admin: 06/23/21 06:19 Dose: 100 mg Heparin Sodium (Porcine) (Heparin 10,000 Units/10 Ml Vial) 4,500 unit 40 unit/kg (4500 unit) IV Q6H PRN PRN Reason: Anti-Xa Assay < 0.1 units/ml Last Admin: 06/19/21 04:51 Dose: 4,500 unit Heparin Sodium/Sodium Chloride (Heparin/ 0.45% Nacl-25,000 Unit/500 Ml) 25,000 unit in 500 mls @ 30 mls/hr IV TITR [facility]; Protocol Last Titration: 06/23/21 01:51 Dose: 2,200 units/hr, 44 mls/hr Cefazolin Sodium 2 gm/ Sodium (Chloride) 100 mls @ 200 mls/hr IV Q6HR [facility]; Protocol Stop: 07/19/21 18:29 Last Admin: 06/23/21 06:19 Dose: 200 mls/hr Levetiracetam (Levetiracetam 500 Mg Tab) 500 mg PO BID [facility] Last Admin: 06/23/21 09:48 Dose: 500 mg Levothyroxine Sodium (Levothyroxine 150 Mcg Tab) 150 mcg PO DAILY@0600 [facility] Last Admin: 06/23/21 06:19 Dose: 150 mcg Morphine Sulfate (Morphine 2 Mg/1 Ml Inj) 2 mg IV Q8H PRN PRN Reason: Pain, Moderate (4-6) Last Admin: 06/23/21 08:33 Dose: 2 mg Ondansetron HCl (Ondansetron 4 Mg/2 Ml Inj) 4 mg IV Q4H PRN PRN Reason: Nausea And Vomiting Last Admin: 06/17/21 00:14 Dose: 4 mg Propranolol HCl (Propranolol 40 Mg Tab) 40 mg PO BID [facility] Last Admin: 06/23/21 09:47 Dose: 40 mg Quetiapine Fumarate (Quetiapine 100 Mg Tab) 100 mg PO QAM [facility] Last Admin: 06/23/21 09:47 Dose: 100 mg Sodium Chloride (Sodium Chloride 0.9% 10 Ml Flush Syringe) 10 ml IV BID [facility] Last Admin: 06/23/21 09:49 Dose: 10 ml Sodium Chloride (Sodium Chloride 0.9% 10 Ml Flush Syringe) 10 ml IV PRN PRN PRN Reason: LINE FLUSH Tramadol HCl (Tramadol 50 Mg Tab) 100 mg PO BID [facility] Last Admin: 06/23/21 09:47 Dose: 100 mg Warfarin Sodium (Warfarin 10 Mg Tab) 30 mg PO ONCE@1700 NR Stop: 06/23/21 16:59 Last Admin: 06/22/21 17:25 Dose: 30 mg Mental Status Exam - Vital signs Last Vital Signs Temp 98.6 F 06/23/21 05:50 Pulse 61 06/23/21 06:00 Resp 18 06/23/21 05:50 BP 113/61 06/23/21 05:50 Pulse Ox 100 06/23/21 08:23 Results Result Diagrams: 06/20/21 05:00 06/20/21 05:00 Abnormal lab results 06/23/21 Range/Units 06:30 PT 16.7 H (12.2-14.9) Sec. INR 1.21 H (0.87-1.13) All other labs normal.
--- NOTE | 2021-06-23 13:37 | Progress Note ---
Assessment and Plan Sepsis MSSA Bacteremia Acute pulmonary embolism Acute chest pain History of DVT on warfarin Seizure disorder Anxiety Hypothyroidism microcytic anemia Morbid obesity Hypotension (Resolved) - continue Warfarin; target INR 2.0 to 3.0 - continue full anticoagulation with IV Heparin bridge - continue care as below otherwise; - continue to trend H&H prn - PRBC transfusions for serum Hb < 7.0 g/dl - follow H&H closely - continue Ancef; de-escalate per ID recommendations - continue Keppra as AED - continue thyroid replacement therapy - follow clinically re: fever curves / trend WBC - supplemental oxygen to keep O2 sats > 90% - bronchodilators (ALVERTO) with pulm hygiene per RT - continue to avoid nephrotoxins, renally dose all medications - continue mobility protocols to prevent pressure ulcers - PT/OT as tolerated - Wound care per RN/WCT - continue accuchecks with glycemic control per SSI for target blood glucose < 180 mg/dL - tobacco abstinence strongly counseled at the bedside - home oxygen evaluation at discharge - prn analgesia per pain score - GI prophylaxis with Pepcid - Flu & pneumovax per protocol - Pulmonary out patient follow up for PFTs and optimization of respiratory status - life style modifications counseled re: weight loss, better medication compliance - continue other care per attending / other consultants ... re-evaluate in am & prn Subjective Date of service: 06/23/21 Principal diagnosis: Sepsis; Acute P.E.; Chest pain; H/O DVT; Seizures; Hypothyroidism; Obesity Interval history: Patient is seen today for: Sepsis; Acute pulmonary embolism; Acute chest pain; H/O DVT; Seizure disorder; Hypothyroidism; Anemia; Morbid obesity; Hypotension (Resolved); MSSA Bacteremia Seen and examined at bedside; 24hour events reviewed; nursing and respiratory care staff consulted; no adverse overnight events reported to me; resting peacefully in bed; Objective Vital Signs - 12hr 06/23/21 06/23/21 06/23/21 05:50 06:00 08:23 Temperature 98.6 F Pulse Rate 61 61 Respiratory 18 Rate Blood Pressure 113/61 O2 Sat by Pulse 100 100 Oximetry Constitutional: no acute distress, alert Eyes: non-icteric ENT: oropharynx moist Neck: supple, no lymphadenopathy, no JVD, other (large neck circumference; RIJ CVL) Effort: mildly labored Ascultation: Bilateral: clear, diminished breath sounds Percussion: Bilateral: not dull Cardiovascular: regular rate and rhythm Gastrointestinal: normoactive bowel sounds, soft, non-tender, other (distended but soft) Integumentary: normal Extremities: no cyanosis, no edema, pulses normal, no ischemia or petechiae Neurologic: non-focal exam (grossly), pupils equal and round, CN II-XII normal, motor strength normal and Psychiatric: other (Sleeping at this time.) CBC and BMP: 06/20/21 05:00 06/20/21 05:00 ABG, PT/INR, D-dimer: ABG ABG pH 7.401 pH Units (7.350-7.450) 06/15/21 10:28 ABG pCO2 46.2 mm Hg 06/15/21 10:28 ABG pO2 41.6 mm Hg (80.0-90.0) L 06/15/21 10:28 ABG O2 Saturation 69.2 % (95.0-99.0) L 06/15/21 10:28 PT/INR, D-dimer PT 16.7 Sec. (12.2-14.9) H 06/23/21 06:30 INR 1.21 (0.87-1.13) H 06/23/21 06:30 Abnormal lab findings: Abnormal Labs 05/29/21 05/29/21 05/29/21 23:24 23:24 23:29 WBC RBC Hgb 8.8 L Hct 28.7 L MCV 74 L MCH 23 L RDW 26.4 H Seg Neuts % (Manual) 75.0 H Lymphocytes % (Manual) Eosinophils % (Manual) Seg Neutrophils # Man Lymphocytes # (Manual) Eosinophils # (Manual) PT INR APTT 20.9 L Heparin Anti-Xa Level ABG pO2 ABG HCO3 ABG O2 Saturation ABG Hemoglobin Oxyhemoglobin Sodium Chloride Carbon Dioxide 20 L Creatinine Glucose Calcium ALT Total Protein Albumin 3.5 L TSH Vancomycin Trough Crossmatch 05/30/21 05/30/21 05/30/21 08:25 08:25 13:35 WBC RBC Hgb 8.8 L Hct 27.5 L MCV MCH RDW Seg Neuts % (Manual) Lymphocytes % (Manual) Eosinophils % (Manual) Seg Neutrophils # Man Lymphocytes # (Manual) Eosinophils # (Manual) PT 15.4 H INR APTT 107.1 H* Heparin Anti-Xa Level 0.82 H ABG pO2 ABG HCO3 ABG O2 Saturation ABG Hemoglobin Oxyhemoglobin Sodium Chloride Carbon Dioxide Creatinine Glucose Calcium ALT Total Protein Albumin TSH Vancomycin Trough Crossmatch 05/30/21 05/31/21 05/31/21 20:57 06:40 06:40 WBC 13.0 H RBC Hgb 8.9 L Hct 28.5 L MCV 74 L MCH 23 L RDW 25.7 H Seg Neuts % (Manual) 77.0 H Lymphocytes % (Manual) Eosinophils % (Manual) Seg Neutrophils # Man 10.0 H Lymphocytes # (Manual) Eosinophils # (Manual) PT INR APTT 52.6 H Heparin Anti-Xa Level 0.15 L 0.74 H ABG pO2 ABG HCO3 ABG O2 Saturation ABG Hemoglobin Oxyhemoglobin Sodium Chloride Carbon Dioxide Creatinine Glucose Calcium ALT Total Protein Albumin TSH Vancomycin Trough Crossmatch 06/01/21 06/01/21 06/02/21 09:55 10:27 06:15 WBC RBC Hgb 9.4 L Hct MCV MCH RDW Seg Neuts % (Manual) Lymphocytes % (Manual) Eosinophils % (Manual) Seg Neutrophils # Man Lymphocytes # (Manual) Eosinophils # (Manual) PT INR APTT Heparin Anti-Xa Level 0.13 L 0.25 L ABG pO2 ABG HCO3 ABG O2 Saturation ABG Hemoglobin Oxyhemoglobin Sodium Chloride Carbon Dioxide Creatinine Glucose Calcium ALT Total Protein Albumin TSH Vancomycin Trough Crossmatch 06/02/21 06/03/21 06/04/21 23:30 Unknown 07:39 WBC RBC Hgb 8.5 L Hct 28.0 L MCV MCH RDW Seg Neuts % (Manual) Lymphocytes % (Manual) Eosinophils % (Manual) Seg Neutrophils # Man Lymphocytes # (Manual) Eosinophils # (Manual) PT 15.0 H INR APTT Heparin Anti-Xa Level 0.19 L ABG pO2 ABG HCO3 ABG O2 Saturation ABG Hemoglobin Oxyhemoglobin Sodium Chloride Carbon Dioxide Creatinine Glucose Calcium ALT Total Protein Albumin TSH Vancomycin Trough Crossmatch 06/05/21 06/05/21 06/05/21 04:07 04:07 10:40 WBC RBC Hgb 8.4 L Hct 27.3 L MCV MCH RDW Seg Neuts % (Manual) Lymphocytes % (Manual) Eosinophils % (Manual) Seg Neutrophils # Man Lymphocytes # (Manual) Eosinophils # (Manual) PT 17.7 H INR 1.30 H APTT Heparin Anti-Xa Level ABG pO2 ABG HCO3 ABG O2 Saturation ABG Hemoglobin Oxyhemoglobin Sodium Chloride Carbon Dioxide Creatinine Glucose Calcium ALT Total Protein Albumin TSH 0.034 L Vancomycin Trough Crossmatch 06/05/21 06/05/21 06/06/21 10:40 11:01 04:00 WBC 14.0 H RBC 3.37 L Hgb 7.5 L Hct 24.8 L MCV 74 L MCH 22 L RDW 25.0 H Seg Neuts % (Manual) 94.0 H Lymphocytes % (Manual) 3.0 L Eosinophils % (Manual) Seg Neutrophils # Man 13.2 H Lymphocytes # (Manual) 0.4 L Eosinophils # (Manual) PT 17.4 H INR 1.27 H APTT Heparin Anti-Xa Level ABG pO2 ABG HCO3 ABG O2 Saturation ABG Hemoglobin Oxyhemoglobin Sodium 135 L Chloride Carbon Dioxide 20 L Creatinine Glucose Calcium 7.8 L ALT Total Protein Albumin TSH Vancomycin Trough Crossmatch 06/07/21 06/07/21 06/08/21 12:55 12:55 04:52 WBC RBC Hgb 7.1 L Hct 23.6 L MCV MCH RDW Seg Neuts % (Manual) Lymphocytes % (Manual) Eosinophils % (Manual) Seg Neutrophils # Man Lymphocytes # (Manual) Eosinophils # (Manual) PT 19.7 H INR 1.48 H APTT Heparin Anti-Xa Level ABG pO2 ABG HCO3 ABG O2 Saturation ABG Hemoglobin Oxyhemoglobin Sodium Chloride 116.6 H Carbon Dioxide 18 L Creatinine Glucose Calcium 7.4 L ALT Total Protein 4.7 L Albumin 2.7 L TSH Vancomycin Trough Crossmatch 06/08/21 06/09/21 06/09/21 04:52 06:46 06:46 WBC RBC 3.09 L Hgb 6.9 L Hct 22.4 L MCV 72 L MCH 22 L RDW 25.0 H Seg Neuts % (Manual) Lymphocytes % (Manual) Eosinophils % (Manual) Seg Neutrophils # Man Lymphocytes # (Manual) Eosinophils # (Manual) PT INR APTT Heparin Anti-Xa Level < 0.10 L ABG pO2 ABG HCO3 ABG O2 Saturation ABG Hemoglobin Oxyhemoglobin Sodium Chloride Carbon Dioxide Creatinine Glucose Calcium ALT Total Protein Albumin TSH Vancomycin Trough 25.1 H Crossmatch 04/06/10/21 06/10/21 Unknown 08:31 08:31 WBC RBC 3.17 L Hgb 7.1 L Hct 22.9 L MCV 72 L MCH 22 L RDW 25.5 H Seg Neuts % (Manual) 71.0 H Lymphocytes % (Manual) Eosinophils % (Manual) Seg Neutrophils # Man Lymphocytes # (Manual) 1.0 L Eosinophils # (Manual) PT 20.4 H 17.6 H INR 1.54 H 1.29 H APTT Heparin Anti-Xa Level ABG pO2 ABG HCO3 ABG O2 Saturation ABG Hemoglobin Oxyhemoglobin Sodium Chloride Carbon Dioxide Creatinine Glucose Calcium ALT Total Protein Albumin TSH Vancomycin Trough Crossmatch 06/10/21 06/10/21 06/11/21 08:31 08:33 08:25 WBC RBC Hgb Hct MCV MCH RDW Seg Neuts % (Manual) Lymphocytes % (Manual) Eosinophils % (Manual) Seg Neutrophils # Man Lymphocytes # (Manual) Eosinophils # (Manual) PT 16.3 H INR 1.17 H APTT Heparin Anti-Xa Level ABG pO2 ABG HCO3 ABG O2 Saturation ABG Hemoglobin Oxyhemoglobin Sodium Chloride 111.3 H Carbon Dioxide 21 L Creatinine 1.4 H Glucose Calcium ALT Total Protein 5.7 L D Albumin 3.2 L TSH Vancomycin Trough Crossmatch See Detail 06/12/21 06/12/21 06/14/21 05:45 05:45 Unknown WBC RBC Hgb Hct MCV MCH RDW Seg Neuts % (Manual) Lymphocytes % (Manual) Eosinophils % (Manual) Seg Neutrophils # Man Lymphocytes # (Manual) Eosinophils # (Manual) PT 16.1 H INR 1.16 H APTT Heparin Anti-Xa Level 0.26 L ABG pO2 ABG HCO3 ABG O2 Saturation ABG Hemoglobin Oxyhemoglobin Sodium Chloride Carbon Dioxide Creatinine 1.3 H Glucose Calcium ALT Total Protein Albumin TSH Vancomycin Trough Crossmatch 06/14/21 06/14/21 06/15/21 Unknown Unknown 03:56 WBC RBC 3.50 L Hgb 8.2 L Hct 26.3 L MCV 75 L MCH 24 L RDW 27.6 H Seg Neuts % (Manual) Lymphocytes % (Manual) Eosinophils % (Manual) Seg Neutrophils # Man Lymphocytes # (Manual) Eosinophils # (Manual) PT 15.4 H INR APTT Heparin Anti-Xa Level ABG pO2 ABG HCO3 ABG O2 Saturation ABG Hemoglobin Oxyhemoglobin Sodium Chloride Carbon Dioxide Creatinine Glucose 107 H Calcium ALT < 5 L Total Protein 5.9 L Albumin 3.5 L TSH Vancomycin Trough Crossmatch 06/15/21 06/15/21 06/16/21 03:56 10:28 03:15 WBC RBC 3.47 L Hgb 8.3 L Hct 25.8 L MCV 74 L MCH 24 L RDW 27.3 H Seg Neuts % (Manual) 72.0 H Lymphocytes % (Manual) Eosinophils % (Manual) 6.0 H Seg Neutrophils # Man Lymphocytes # (Manual) Eosinophils # (Manual) 0.5 H PT 16.7 H INR 1.21 H APTT Heparin Anti-Xa Level 0.17 L ABG pO2 41.6 L ABG HCO3 28.1 H ABG O2 Saturation 69.2 L ABG Hemoglobin 8.5 L Oxyhemoglobin 67.6 L Sodium Chloride Carbon Dioxide Creatinine Glucose Calcium ALT Total Protein Albumin TSH Vancomycin Trough Crossmatch 06/16/21 06/16/21 06/17/21 03:15 Unknown 00:25 WBC RBC Hgb 8.7 L Hct 28.5 L MCV 75 L MCH 23 L RDW 27.3 H Seg Neuts % (Manual) 72.0 H Lymphocytes % (Manual) Eosinophils % (Manual) Seg Neutrophils # Man Lymphocytes # (Manual) Eosinophils # (Manual) PT INR APTT Heparin Anti-Xa Level < 0.10 L 0.80 H ABG pO2 ABG HCO3 ABG O2 Saturation ABG Hemoglobin Oxyhemoglobin Sodium Chloride Carbon Dioxide Creatinine Glucose Calcium ALT Total Protein Albumin TSH Vancomycin Trough Crossmatch 06/17/21 06/18/21 06/18/21 Unknown Unknown Unknown WBC RBC Hgb 8.9 L Hct 28.8 L MCV 75 L MCH 23 L RDW 27.4 H Seg Neuts % (Manual) 72.0 H Lymphocytes % (Manual) Eosinophils % (Manual) 6.0 H Seg Neutrophils # Man Lymphocytes # (Manual) 1.1 L Eosinophils # (Manual) PT 16.1 H 15.4 H INR 1.16 H APTT Heparin Anti-Xa Level 0.21 L ABG pO2 ABG HCO3 ABG O2 Saturation ABG Hemoglobin Oxyhemoglobin Sodium Chloride Carbon Dioxide Creatinine Glucose Calcium ALT Total Protein Albumin TSH Vancomycin Trough Crossmatch 06/18/21 06/20/21 06/20/21 Unknown 05:00 05:00 WBC RBC Hgb 9.2 L Hct 30.0 L MCV 76 L MCH 23 L RDW 26.8 H Seg Neuts % (Manual) Lymphocytes % (Manual) 37.0 H Eosinophils % (Manual) 8.0 H Seg Neutrophils # Man Lymphocytes # (Manual) Eosinophils # (Manual) PT 15.5 H INR APTT Heparin Anti-Xa Level ABG pO2 ABG HCO3 ABG O2 Saturation ABG Hemoglobin Oxyhemoglobin Sodium 134 L Chloride 96.5 L Carbon Dioxide Creatinine Glucose Calcium ALT Total Protein Albumin TSH Vancomycin Trough Crossmatch 06/20/21 06/20/21 06/21/21 10:00 19:00 12:14 WBC RBC Hgb Hct MCV MCH RDW Seg Neuts % (Manual) Lymphocytes % (Manual) Eosinophils % (Manual) Seg Neutrophils # Man Lymphocytes # (Manual) Eosinophils # (Manual) PT 15.9 H INR 1.14 H APTT Heparin Anti-Xa Level > 2.00 H 2.18 H ABG pO2 ABG HCO3 ABG O2 Saturation ABG Hemoglobin Oxyhemoglobin Sodium Chloride Carbon Dioxide Creatinine Glucose Calcium ALT Total Protein Albumin TSH Vancomycin Trough Crossmatch 06/22/21 06/23/21 08:26 06:30 WBC RBC Hgb Hct MCV MCH RDW Seg Neuts % (Manual) Lymphocytes % (Manual) Eosinophils % (Manual) Seg Neutrophils # Man Lymphocytes # (Manual) Eosinophils # (Manual) PT 16.7 H INR 1.21 H APTT Heparin Anti-Xa Level 0.28 L ABG pO2 ABG HCO3 ABG O2 Saturation ABG Hemoglobin Oxyhemoglobin Sodium Chloride Carbon Dioxide Creatinine Glucose Calcium ALT Total Protein Albumin TSH Vancomycin Trough Crossmatch Allied health notes reviewed: nursing
[2021-06-28 09:42] LABS: Hemoglobin A2 Prime SEE SCANNED RESULT; Hemoglobin Barts SEE SCANNED RESULT; Hemoglobin E SEE SCANNED RESULT; Hemoglobin G SEE SCANNED RESULT; Hemoglobin Lepore SEE SCANNED RESULT; Hemoglobin O-Arab SEE SCANNED RESULT; IEF Confirm SEE SCANNED RESULT; Interpretation SEE SCANNED RESULT; Sickle Solubility Test SEE SCANNED RESULT
== END 2021-06-23 14:00 | disposition left against medical advice (07) | DRG 871 ==
LOC: ED 22:16 → 4A 05-30 05:14 → CC1 06-04 17:29 → IMCU 06-04 17:34 → 3A 06-06 14:54
PROVIDERS: ADMIT Hospitalist; ATTEND Internal Medicine
PROC: 06HM33Z Insertion of Infusion Device into Right Femoral Vein, Percutaneous Approach (ICD-10-PCS; 2021-05-30)
PROC: 05HM33Z Insertion of Infusion Device into Right Internal Jugular Vein, Percutaneous Approach (ICD-10-PCS; 2021-06-04)
PROC: B543ZZA Ultrasonography of Right Jugular Veins, Guidance (ICD-10-PCS; 2021-06-04)
PROC: 30233N1 Transfusion of Nonautologous Red Blood Cells into Peripheral Vein, Percutaneous Approach (ICD-10-PCS; 2021-06-10)
PROC: B24BZZ4 Ultrasonography of Heart with Aorta, Transesophageal (ICD-10-PCS; 2021-06-10)
PROC: 02HV33Z Insertion of Infusion Device into Superior Vena Cava, Percutaneous Approach (ICD-10-PCS; 2021-06-11)
PROC: B548ZZA Ultrasonography of Superior Vena Cava, Guidance (ICD-10-PCS; 2021-06-11)
PROC: 4A033R1 Measurement of Arterial Saturation, Peripheral, Percutaneous Approach (ICD-10-PCS; principal; 2021-06-15)
DX: A41.01 Sepsis due to Methicillin susceptible Staphylococcus aureus (principal); I26.99 Other pulmonary embolism without acute cor pulmonale; I42.9 Cardiomyopathy, unspecified; E66.01 Morbid (severe) obesity due to excess calories; D64.9 Anemia, unspecified; I10 Essential (primary) hypertension; G40.909 Epilepsy, unspecified, not intractable, without status epilepticus; K21.9 Gastro-esophageal reflux disease without esophagitis; Z68.38 Body mass index [BMI] 38.0-38.9, adult; E03.9 Hypothyroidism, unspecified; F41.9 Anxiety disorder, unspecified
CPT/HCPCS: 36415; 36600; 71045; 71275; 74176; 80048; 80053; 80202; 81001; 82024; 82140; 82565; 82803; 82962; 83690; 84439; 84443; 84484; 84703; 85007; 85014; 85018; 85025; 85027; 85049; 85210; 85220; 85384; 85520; 85610; 85613; 85730; 86038; 86147; 86850; 86900; 86901; 86920; 87040; 87076; 87086; 87186; 87400; 93005; 93306; 93312; 93320; 93325; 93970; 94640; 94760; G0378; J3490; 87502; C8929; J0456; J0690; J0696; J1170; J1644; J1885; J2001; J2270; J2405; J2704; J2916; J3010; J3370; J7030; J7040; P9016; Q9967; U0003

== ENCOUNTER 2021-08-18 21:06 | Emergency (ER) | payer SELFPAY ==
--- NOTE | 2021-08-18 23:02 | XRay Report ---
CHEST 2 VIEWS INDICATION / CLINICAL INFORMATION: CHEST PAIN. COMPARISON: 06/04/2021 FINDINGS: SUPPORT DEVICES: None. HEART / MEDIASTINUM: No significant abnormality. LUNGS / PLEURA: No significant pulmonary or pleural abnormality. No pneumothorax. ADDITIONAL FINDINGS: Endovascular thoracic aortic stent. IMPRESSION: 1. No acute findings. Signer Name: Miguel Urban DO Signed: 08/18/2021 10:58 PM Workstation Name: [id number]
--- NOTE | 2021-08-19 10:38 | Electrocardiograph Report ---
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 Electronically Signed On 08-19-2021 10:37:15 EDT by Guerrero Burnett
[2021-08-19] MEDS ORDERED: fentaNYL 100 MCG/2 ML INJ IM ONE ×2 (12:07→17:07)
--- NOTE | 2021-08-19 12:20 | XRay Report ---
CHEST 1 VIEW 08/19/2021 11:58 AM INDICATION / CLINICAL INFORMATION: Chest Pain. COMPARISON: 08/18/21 FINDINGS: SUPPORT DEVICES: None. HEART / MEDIASTINUM: Heart is normal size. Descending thoracic aorta stent graft is unchanged. LUNGS / PLEURA: No significant pulmonary or pleural abnormality. No pneumothorax. ADDITIONAL FINDINGS: No significant additional findings. IMPRESSION: 1. No acute findings. Signer Name: aCrlos Campbell MD Signed: 08/19/2021 12:15 PM Workstation Name: [id number]
[2021-08-19 16:39] LABS: Alanine Aminotransferase 66 units/L (7-56); Albumin 3.9 g/dL (3.9-5); BUN/Creatinine Ratio 31; Blood Urea Nitrogen 28 mg/dL (7-17); Calcium 9.2 mg/dL (8.4-10.2); Hemolysis Index 1
[2021-08-19 16:46] VITALS: BP 135/74
--- NOTE | 2021-08-19 17:11 | Emergency Department Report ---
ED Chest Pain HPI - General Chief Complaint: Chest Pain Stated Complaint: CHEST PAIN/BILATERAL LEG SWELLING PUI?: No Time Seen by Provider: 08/19/21 11:57 Source: patient Mode of arrival: Ambulatory Limitations: No Limitations - History of Present Illness Initial Comments: PT C/O CP WITH LEG SWELLING X 5 DAYS, HX OF CHF Complaint: chest pain -: Gradual, days(s) Pain Location: left chest Pain Radiation: none Severity scale (0 -10): 10 Quality: tightness Consistency: intermittent Improves With: nothing - Related Data Previous Rx's Medication Instructions Recorded Last Taken Type ALPRAZolam [Xanax TAB] 0.5 mg PO BID #14 tablet 06/23/21 Unknown Rx Aspirin EC [Halfprin EC] 81 mg PO QDAY #30 tab 06/23/21 Unknown Rx Famotidine [Pepcid] 20 mg PO BID #30 tablet 06/23/21 Unknown Rx Gabapentin 100 mg PO Q8HR #90 capsule 06/23/21 Unknown Rx Levothyroxine [Synthroid] 150 mcg PO DAILY@0600 #30 tablet 06/23/21 Unknown Rx QUEtiapine [SEROquel] 100 mg PO QAM #30 tab 06/23/21 Unknown Rx Warfarin [Coumadin] 15 mg PO DAILY@1700 #60 tablet 06/23/21 Unknown Rx amLODIPine 10 mg PO QDAY #30 tablet 06/23/21 Unknown Rx cephALEXin [Keflex] 500 mg PO Q8HR #84 cap 06/23/21 Unknown Rx levETIRAcetam [Keppra TAB] 500 mg PO BID #60 tab 06/23/21 Unknown Rx propranoloL [Inderal] 40 mg PO BID #60 tab 06/23/21 Unknown Rx traMADoL [Ultram 50 MG tab] 50 mg PO TID PRN #12 06/23/21 Unknown Rx Allergies Allergy/AdvReac Type Severity Reaction Status Date / Time acetaminophen [From Tylenol] Allergy Hives Verified 12/16/20 11:52 enoxaparin [From Lovenox] Allergy Rash, Verified 01/18/21 13:51 fever, vomiting garlic Allergy Hives Verified 01/18/21 13:51 oxycodone [From Percocet] Allergy Itching, Verified 01/18/21 13:51 rash peanut oil Allergy Rash Verified 01/18/21 13:51 Penicillins Allergy hives, Verified 01/18/21 13:51 vomiting ibuprofen [From Motrin] AdvReac nausea/vomi Verified 01/18/21 13:51 ting Heart Score - HEART Score History: Slightly suspicious EKG: Normal Age: < 45 Risk factors: > 3 risk factors or hx of atherosclerotic disease Troponin: < normal limit HEART Score: 2 - EKG Read Time Time EKG Completed: 21:20 EKG Read Time: 21:20 - Critical Actions Critical Actions: 0-3 pts:0.9-1.7%risk of adverse cardiac event.Candidate for discharge ED Review of Systems ROS: Stated complaint: CHEST PAIN/BILATERAL LEG SWELLING Other details as noted in HPI ED Past Medical Hx - Past Medical History Hx Hypertension: Yes Hx Heart Attack/AMI: (normal stress 10-31-16, normal perfusion scan May 2017) Hx Congestive Heart Failure: No Hx Diabetes: No Hx Deep Vein Thrombosis: No Hx Pulmonary Embolism: Yes Hx GERD: Yes Hx Sickle Cell Disease: No Hx Seizures: Yes (BUT PT DENIES) Hx Psychiatric Treatment: Yes (anxiety) Hx Asthma: No Hx COPD: No Hx Tuberculosis: No Hx HIV: No Additional medical history: pericarditis, pt states hyperthyroidism, thyroid storm, PE x2, (R lung 05/2016, L lung 01/2017--on coumadin), R leg DVT 03/2017, Graves Disease, heart murmur, aortic dissection - Surgical History Hx Coronary Stent: Yes ("multiple stents") Hx Pacemaker: No Hx Internal Defibrillator: No Additional Surgical History: Left arm surgery 02/2017, Right knee, Rt leg. 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, [place] Filter - Social History Smoking Status: Never Smoker - Medications Home Medications: Home Medications Medication Instructions Recorded Confirmed Last Taken Type ALPRAZolam [Xanax TAB] 0.5 mg PO BID #14 tablet 06/23/21 Unknown Rx Aspirin EC [Halfprin EC] 81 mg PO QDAY #30 tab 06/23/21 Unknown Rx Famotidine [Pepcid] 20 mg PO BID #30 tablet 06/23/21 Unknown Rx Gabapentin 100 mg PO Q8HR #90 capsule 06/23/21 Unknown Rx Levothyroxine [Synthroid] 150 mcg PO DAILY@0600 #30 tablet 06/23/21 Unknown Rx QUEtiapine [SEROquel] 100 mg PO QAM #30 tab 06/23/21 Unknown Rx Warfarin [Coumadin] 15 mg PO DAILY@1700 #60 tablet 06/23/21 Unknown Rx amLODIPine 10 mg PO QDAY #30 tablet 06/23/21 Unknown Rx cephALEXin [Keflex] 500 mg PO Q8HR #84 cap 06/23/21 Unknown Rx levETIRAcetam [Keppra TAB] 500 mg PO BID #60 tab 06/23/21 Unknown Rx propranoloL [Inderal] 40 mg PO BID #60 tab 06/23/21 Unknown Rx traMADoL [Ultram 50 MG tab] 50 mg PO TID PRN #12 06/23/21 Unknown Rx ED Physical Exam - General Limitations: No Limitations General appearance: alert, in no apparent distress - Head Head exam: Present: atraumatic, normocephalic - Eye Eye exam: Present: normal appearance - ENT ENT exam: Present: mucous membranes moist - Neck Neck exam: Present: normal inspection - Respiratory Respiratory exam: Present: normal lung sounds bilaterally. Absent: respiratory distress - Cardiovascular Cardiovascular Exam: Present: regular rate, normal rhythm. Absent: systolic murmur, diastolic murmur, rubs, gallop - GI/Abdominal GI/Abdominal exam: Present: soft, normal bowel sounds - Extremities Exam Extremities exam: Present: normal inspection - Back Exam Back exam: Present: normal inspection - Neurological Exam Neurological exam: Present: alert, oriented X3 - Psychiatric Psychiatric exam: Present: normal affect, normal mood - Skin Skin exam: Present: warm, dry, intact, normal color. Absent: rash ED Course Vital Signs 08/18/21 08/19/21 08/19/21 21:11 09:38 09:45 Temperature 98.7 F Pulse Rate 111 H Respiratory 18 22 Rate Blood Pressure 141/89 O2 Sat by Pulse 90 99 98 Oximetry 08/19/21 08/19/21 08/19/21 09:46 10:00 10:16 Temperature Pulse Rate 112 H 80 83 Respiratory 24 17 8 L Rate Blood Pressure 130/76 130/76 114/64 O2 Sat by Pulse 98 99 99 Oximetry 08/19/21 08/19/21 08/19/21 10:30 10:46 11:00 Temperature Pulse Rate 79 78 88 Respiratory 20 19 22 Rate Blood Pressure 114/64 99/79 99/79 O2 Sat by Pulse 99 98 99 Oximetry 08/19/21 08/19/21 08/19/21 11:16 11:30 11:46 Temperature Pulse Rate 93 H 101 H 94 H Respiratory 18 21 22 Rate Blood Pressure 123/75 123/75 110/58 O2 Sat by Pulse 99 99 96 Oximetry 08/19/21 08/19/21 08/19/21 12:00 12:16 12:30 Temperature Pulse Rate 101 H 99 H 90 Respiratory 22 22 22 Rate Blood Pressure 110/58 124/75 124/75 O2 Sat by Pulse Oximetry 08/19/21 08/19/21 08/19/21 12:46 13:00 13:16 Temperature Pulse Rate 87 87 91 H Respiratory 21 20 20 Rate Blood Pressure 111/75 111/75 111/75 O2 Sat by Pulse Oximetry 08/19/21 08/19/21 08/19/21 13:30 13:46 14:00 Temperature Pulse Rate 85 87 90 Respiratory 19 18 20 Rate Blood Pressure 111/75 140/70 140/70 O2 Sat by Pulse 98 98 Oximetry 08/19/21 08/19/21 08/19/21 14:16 14:30 14:46 Temperature Pulse Rate 93 H 96 H 87 Respiratory 20 19 19 Rate Blood Pressure 135/74 135/74 135/74 O2 Sat by Pulse 99 98 100 Oximetry 08/19/21 08/19/21 08/19/21 15:00 15:16 15:30 Temperature Pulse Rate 90 84 81 Respiratory 16 16 20 Rate Blood Pressure 135/74 135/74 135/74 O2 Sat by Pulse 99 99 97 Oximetry 08/19/21 08/19/21 08/19/21 15:46 16:00 16:16 Temperature Pulse Rate 86 87 100 H Respiratory 12 20 25 H Rate Blood Pressure 135/74 135/74 135/74 O2 Sat by Pulse 97 98 Oximetry 08/19/21 16:30 Temperature Pulse Rate 100 H Respiratory 13 Rate Blood Pressure 135/74 O2 Sat by Pulse Oximetry GENOVEVA score - Genoveva Score Age > 65: (0) No Aspirin use within the Past 7 Days: (0) No 3 or more CAD Risk Factors: (0) No 2 or more Angina events in past 24 hrs: (0) No Known CAD with more than 50% Stenosis: (0) No Elevated Cardiac Markers: (0) No ST Deviation Greater than 0.5mm: (0) No GENOVEVA Score: 0 ED Medical Decision Making - Lab Data Result diagrams: 08/19/21 16:00 - EKG Data -: EKG Interpreted by Me EKG shows normal: sinus rhythm Rate: tachycardia - Radiology Data Radiology results: report reviewed, image reviewed Critical care attestation.: If time is entered above; I have spent that time in minutes in the direct care of this critically ill patient, excluding procedure time. ED Disposition Clinical Impression: Chest pain Disposition: HOME / SELF CARE / HOMELESS Is pt being admited?: No Does the pt Need Aspirin: No Condition: Stable Instructions: Nonspecific Chest Pain, Adult Referrals: NIKKY BARNETT MD [Primary Care Provider] - 3-5 Days
[2021-08-19 18:30] LABS: Hematocrit 35.1 % (30.3-42.9); Hemoglobin 10.8 gm/dl (10.1-14.3); Mean Corpuscular HGB Conc 31 % (30-34); Mean Corpuscular Volume 80 fl (79-97); Platelet Count 429 K/mm3 (140-440)
[2021-08-19 18:39] LABS: Red Cell Distribution Width 24.8 % (13.2-15.2)
[2021-08-19 22:25] LABS: Anisocytosis 2+; Basophils % (Manual) 0 % (0.0-1.8); Hypochromasia 1+; Total Cells Counted 100
[2021-08-19 22:28] LABS: Ovalocytes Few; Platelet Estimate Consistent w Auto
== END 2021-08-19 17:37 | disposition home or self-care (01) ==
LOC: ED 21:06
DX: R07.9 Chest pain, unspecified (principal); I10 Essential (primary) hypertension; R56.9 Unspecified convulsions; F41.9 Anxiety disorder, unspecified; E05.90 Thyrotoxicosis, unspecified without thyrotoxic crisis or storm; R01.1 Cardiac murmur, unspecified; Z98.890 Other specified postprocedural states; Z88.0 Allergy status to penicillin; Z88.1 Allergy status to other antibiotic agents; Z88.5 Allergy status to narcotic agent; Z88.6 Allergy status to analgesic agent; Z91.010 Allergy to peanuts; Z91.013 Allergy to seafood
CPT/HCPCS: 36415; 71045; 71046; 80053; 84484; 85007; 85025; 93005; 96372; 99284; J3010

== ENCOUNTER 2021-10-28 20:10 | Emergency (ER) | payer SELFPAY ==
--- NOTE | 2021-10-29 07:35 | Emergency Department Report ---
ED Chest Pain HPI - General Chief Complaint: Chest Pain Stated Complaint: SEVERE CHEST PAIN/LEG SWELLING Time Seen by Provider: 10/29/21 07:14 Source: patient Mode of arrival: Ambulatory Limitations: No Limitations - History of Present Illness Initial Comments: Patient is a 41-year-old female presenting to ED with complaint of worsening central chest pain and bilateral lower leg swelling over the past 2 weeks. She describes the pain as a sharp sensation that varies with changes in position. Recently had HANK which showed no acute abnormalities. Also had CTA chest back in May which showed bilateral pulmonary emboli. She is currently on Coumadin. - Related Data Previous Rx's Medication Instructions Recorded Last Taken Type ALPRAZolam [Xanax TAB] 0.5 mg PO BID #14 tablet 06/23/21 Unknown Rx Aspirin EC [Halfprin EC] 81 mg PO QDAY #30 tab 06/23/21 Unknown Rx Famotidine [Pepcid] 20 mg PO BID #30 tablet 06/23/21 Unknown Rx Gabapentin 100 mg PO Q8HR #90 capsule 06/23/21 Unknown Rx Levothyroxine [Synthroid] 150 mcg PO DAILY@0600 #30 tablet 06/23/21 Unknown Rx QUEtiapine [SEROquel] 100 mg PO QAM #30 tab 06/23/21 Unknown Rx Warfarin [Coumadin] 15 mg PO DAILY@1700 #60 tablet 06/23/21 Unknown Rx amLODIPine 10 mg PO QDAY #30 tablet 06/23/21 Unknown Rx cephALEXin [Keflex] 500 mg PO Q8HR #84 cap 06/23/21 Unknown Rx levETIRAcetam [Keppra TAB] 500 mg PO BID #60 tab 06/23/21 Unknown Rx propranoloL [Inderal] 40 mg PO BID #60 tab 06/23/21 Unknown Rx traMADoL [Ultram 50 MG tab] 50 mg PO TID PRN #12 06/23/21 Unknown Rx Allergies Allergy/AdvReac Type Severity Reaction Status Date / Time acetaminophen [From Tylenol] Allergy Hives Verified 12/16/20 11:52 enoxaparin [From Lovenox] Allergy Rash, Verified 01/18/21 13:51 fever, vomiting garlic Allergy Hives Verified 01/18/21 13:51 oxycodone [From Percocet] Allergy Itching, Verified 01/18/21 13:51 rash peanut oil Allergy Rash Verified 01/18/21 13:51 Penicillins Allergy hives, Verified 01/18/21 13:51 vomiting ibuprofen [From Motrin] AdvReac nausea/vomi Verified 01/18/21 13:51 ting Heart Score - HEART Score History: Slightly suspicious EKG: Normal Age: < 45 Risk factors: 1-2 risk factors Troponin: < normal limit HEART Score: 1 - EKG Read Time Time EKG Completed: 20:22 EKG Read Time: 20:36 - Critical Actions Critical Actions: 0-3 pts:0.9-1.7%risk of adverse cardiac event.Candidate for discharge ED Review of Systems ROS: Stated complaint: SEVERE CHEST PAIN/LEG SWELLING Other details as noted in HPI Constitutional: denies: chills, fever Respiratory: denies: cough, shortness of breath, wheezing Cardiovascular: chest pain, edema Gastrointestinal: denies: abdominal pain, nausea, diarrhea Musculoskeletal: denies: back pain, joint swelling, arthralgia Skin: denies: rash, lesions Neurological: denies: headache, weakness, paresthesias Psychiatric: denies: anxiety, depression ED Past Medical Hx - Past Medical History Previous Medical History?: Yes Hx Hypertension: Yes Hx Heart Attack/AMI: (normal stress 10-31-16, normal perfusion scan May 2017) Hx Congestive Heart Failure: No Hx Diabetes: No Hx Deep Vein Thrombosis: No Hx Pulmonary Embolism: Yes Hx GERD: Yes Hx Sickle Cell Disease: No Hx Seizures: Yes (BUT PT DENIES) Hx Psychiatric Treatment: Yes (anxiety) Hx Asthma: No Hx COPD: No Hx Tuberculosis: No Hx HIV: No Additional medical history: pericarditis, pt states hyperthyroidism, thyroid storm, PE x2, (R lung 05/2016, L lung 01/2017--on coumadin), R leg DVT 03/2017, Graves Disease, heart murmur, aortic dissection - Surgical History Hx Coronary Stent: Yes ("multiple stents") Hx Pacemaker: No Hx Internal Defibrillator: No Additional Surgical History: Left arm surgery 02/2017, Right knee, Rt leg. 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, [place] Filter - Social History Smoking Status: Current Every Day Smoker - Medications Home Medications: Home Medications Medication Instructions Recorded Confirmed Last Taken Type ALPRAZolam [Xanax TAB] 0.5 mg PO BID #14 tablet 06/23/21 Unknown Rx Aspirin EC [Halfprin EC] 81 mg PO QDAY #30 tab 06/23/21 Unknown Rx Famotidine [Pepcid] 20 mg PO BID #30 tablet 06/23/21 Unknown Rx Gabapentin 100 mg PO Q8HR #90 capsule 06/23/21 Unknown Rx Levothyroxine [Synthroid] 150 mcg PO DAILY@0600 #30 tablet 06/23/21 Unknown Rx QUEtiapine [SEROquel] 100 mg PO QAM #30 tab 06/23/21 Unknown Rx Warfarin [Coumadin] 15 mg PO DAILY@1700 #60 tablet 06/23/21 Unknown Rx amLODIPine 10 mg PO QDAY #30 tablet 06/23/21 Unknown Rx cephALEXin [Keflex] 500 mg PO Q8HR #84 cap 06/23/21 Unknown Rx levETIRAcetam [Keppra TAB] 500 mg PO BID #60 tab 06/23/21 Unknown Rx propranoloL [Inderal] 40 mg PO BID #60 tab 06/23/21 Unknown Rx traMADoL [Ultram 50 MG tab] 50 mg PO TID PRN #12 06/23/21 Unknown Rx ED Physical Exam - General Limitations: No Limitations General appearance: alert, in no apparent distress, obese - Head Head exam: Present: atraumatic, normocephalic - Respiratory Respiratory exam: Present: normal lung sounds bilaterally. Absent: respiratory distress - Cardiovascular Cardiovascular Exam: Present: regular rate, normal rhythm, normal heart sounds - GI/Abdominal GI/Abdominal exam: Present: soft. Absent: distended, tenderness - Rectal Rectal exam: Present: deferred - Neurological Exam Neurological exam: Present: alert, oriented X3 - Psychiatric Psychiatric exam: Present: normal affect, normal mood - Skin Skin exam: Present: warm, dry, intact, normal color ED Course Vital Signs 10/28/21 10/29/21 10/29/21 20:21 01:33 08:00 Temperature 98.9 F 98.4 F 98.4 F Pulse Rate 100 H 81 Respiratory 20 20 Rate Blood Pressure 123/82 136/78 O2 Sat by Pulse 98 98 Oximetry 10/29/21 10/29/21 10/29/21 08:15 08:28 08:29 Temperature Pulse Rate 106 H Respiratory 18 Rate Blood Pressure O2 Sat by Pulse 98 99 97 Oximetry 10/29/21 10/29/21 10/29/21 08:30 08:31 08:32 Temperature Pulse Rate 74 69 76 Respiratory 20 16 20 Rate Blood Pressure 110/77 110/77 O2 Sat by Pulse 100 99 99 Oximetry 10/29/21 10/29/21 10/29/21 09:00 09:30 10:00 Temperature Pulse Rate 61 61 53 L Respiratory 20 19 20 Rate Blood Pressure 122/81 116/69 116/69 O2 Sat by Pulse 99 94 98 Oximetry 10/29/21 10:30 Temperature Pulse Rate 61 Respiratory 15 Rate Blood Pressure 116/69 O2 Sat by Pulse 96 Oximetry GENOVEVA score - Genoveva Score Age > 65: (0) No Aspirin use within the Past 7 Days: (0) No 3 or more CAD Risk Factors: (0) No 2 or more Angina events in past 24 hrs: (0) No Known CAD with more than 50% Stenosis: (0) No Elevated Cardiac Markers: (0) No ST Deviation Greater than 0.5mm: (0) No GENOVEVA Score: 0 ED Medical Decision Making - Lab Data Result diagrams: 10/29/21 13:15 10/29/21 13:15 - Medical Decision Making Patient presenting with complaint of chest pain. History of PE on Coumadin. INR is 0.88. CBC and CMP grossly unremarkable. Troponin is normal. EKG is normal with a rate of 89. Patient given IV morphine, oral tramadol and Zofran. On reassessment patient states her symptoms are resolved. Patient is stable for discharge. I instructed her to follow-up with her PCP regarding her subtherapeutic INR as soon as possible. Patient instructed to return in the event of returning symptoms. Critical care attestation.: If time is entered above; I have spent that time in minutes in the direct care of this critically ill patient, excluding procedure time. ED Disposition Clinical Impression: Nonspecific chest pain, Subtherapeutic international normalized ratio (INR) Disposition: 01 HOME / SELF CARE / HOMELESS Is pt being admited?: No Condition: Stable Instructions: Nonspecific Chest Pain, Adult, What You Need to Know About Warfarin Additional Instructions: Your INR is subtherapeutic. Please follow-up with your regular doctor as soon as possible. Time of Disposition: 14:22
--- NOTE | 2021-10-29 08:01 | XRay Report ---
CHEST 1 VIEW 10/29/2021 7:29 AM INDICATION / CLINICAL INFORMATION: Chest Pain. COMPARISON: 08/19/2021 FINDINGS: SUPPORT DEVICES: None. HEART / MEDIASTINUM: No significant abnormality. Descending thoracic aortic stent appears unchanged. LUNGS / PLEURA: No significant pulmonary or pleural abnormality. No pneumothorax. ADDITIONAL FINDINGS: No significant additional findings. IMPRESSION: 1. No acute findings. Signer Name: Evans Oconnor Jr, MD Signed: 10/29/2021 7:56 AM Workstation Name: [id number]
[2021-10-29] MEDS ORDERED: MORPHINE 4 MG/1 ML INJ IV ONE ×2 (08:57→12:50)
[2021-10-29 10:49] VITALS: BP 116/69
--- NOTE | 2021-10-29 10:56 | Electrocardiograph Report ---
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
[2021-10-29 13:38] LABS: Basophils # (Auto) 0.1 K/mm3 (0.0-0.1); Basophils % (Auto) 1.6 % (0.0-1.8); Eosinophils # (Auto) 0.3 K/mm3 (0.0-0.4); Eosinophils % (Auto) 5.5 % (0.0-4.3); Hematocrit 36.5 % (30.3-42.9); Hemoglobin 11.5 gm/dl (10.1-14.3); Lymphocytes # (Auto) 2.4 K/mm3 (1.2-5.4); Lymphocytes % (Auto) 45.4 % (13.4-35.0); Mean Corpuscular HGB Conc 32 % (30-34); Mean Corpuscular Volume 79 fl (79-97); Monocytes # (Auto) 0.4 K/mm3 (0.0-0.8); Monocytes % (Auto) 7.2 % (0.0-7.3); Platelet Count 305 K/mm3 (140-440); Red Blood Count 4.61 M/mm3 (3.65-5.03)
[2021-10-29 13:49] LABS: Red Cell Distribution Width 20.9 % (13.2-15.2)
[2021-10-29 13:56] LABS: INR 0.88 (0.87-1.13)
[2021-10-29 14:07] LABS: Alanine Aminotransferase 37 units/L (7-56); Albumin 4.3 g/dL (3.9-5); BUN/Creatinine Ratio 17; Blood Urea Nitrogen 19 mg/dL (7-17); Calcium 9.1 mg/dL (8.4-10.2); Hemolysis Index 0
[2021-10-29] MEDS ORDERED: ONDANSETRON 4 MG ODT TAB PO ONE (14:16)
[2021-10-29] MEDS ORDERED: traMADol 50 MG TAB PO ONE (14:16)
== END 2021-10-29 15:26 | disposition home or self-care (01) ==
LOC: ED 20:10
DX: R07.9 Chest pain, unspecified (principal); I10 Essential (primary) hypertension; F17.200 Nicotine dependence, unspecified, uncomplicated
CPT/HCPCS: 36415; 71045; 80053; 83880; 84484; 85025; 85610; 93005; 96374; 96376; 99284; J2270; J3490; Q0162

== ENCOUNTER 2021-11-09 23:38 | Emergency (ER) | payer SELFPAY ==
--- NOTE | 2021-11-10 01:23 | XRay Report ---
CHEST 2 VIEWS INDICATION / CLINICAL INFORMATION: Chest Pain. COMPARISON: 10/29/2021 FINDINGS: SUPPORT DEVICES: None. HEART / MEDIASTINUM: No significant abnormality. Endovascular graft is seen throughout the descending thoracic aorta and proximal abdominal aorta. LUNGS / PLEURA: Upper lobes are slightly obscured by patient's hair extensions. Given this limitation , the lungs appear grossly clear. No pleural effusion. No pneumothorax. ADDITIONAL FINDINGS: No significant additional findings. IMPRESSION: 1. No gross acute pulmonary or pleural disease. Signer Name: Rosaline Holguin MD Signed: 11/10/2021 1:19 AM Workstation Name: [id number]
--- NOTE | 2021-11-10 09:35 | Electrocardiograph Report ---
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
[2021-11-10] MEDS ORDERED: traMADol 50 MG TAB PO ONE (10:52)
[2021-11-10 11:41] LABS: Basophils # (Auto) 0.1 K/mm3 (0.0-0.1); Basophils % (Auto) 0.9 % (0.0-1.8); Eosinophils # (Auto) 0.5 K/mm3 (0.0-0.4); Eosinophils % (Auto) 6.4 % (0.0-4.3); Hematocrit 35.6 % (30.3-42.9); Hemoglobin 11.2 gm/dl (10.1-14.3); Lymphocytes % (Auto) 39.5 % (13.4-35.0); Mean Corpuscular HGB Conc 32 % (30-34); Mean Corpuscular Volume 80 fl (79-97); Monocytes # (Auto) 0.4 K/mm3 (0.0-0.8); Monocytes % (Auto) 5.7 % (0.0-7.3); Red Blood Count 4.43 M/mm3 (3.65-5.03)
[2021-11-10 12:08] LABS: BUN/Creatinine Ratio 13; Blood Urea Nitrogen 14 mg/dL (7-17); Calcium 9.3 mg/dL (8.4-10.2); Hemolysis Index 98
[2021-11-10 12:20] LABS: INR 1.01 (0.87-1.13)
[2021-11-10 12:24] LABS: Red Cell Distribution Width 22.2 % (13.2-15.2)
[2021-11-10] MEDS ORDERED: FUROSEMIDE 20 MG/2 ML INJ IV ONE (13:12)
--- NOTE | 2021-11-10 13:20 | Vascular Lab Report ---
DUPLEX DOPPLER LOWER EXTREMITY VEINS, BILATERAL INDICATION / CLINICAL INFORMATION: hx of dvt, pe, p/w 2.5 weeks of b/l LE pain/swelli. TECHNIQUE: Duplex doppler imaging was performed through the veins of both lower extremities using miguel ous compression and other maneuvers. COMPARISON: None available. FINDINGS: RIGHT COMMON FEMORAL VEIN: Negative. RIGHT FEMORAL VEIN: Negative. RIGHT POPLITEAL VEIN: Negative. RIGHT CALF VEINS: Negative. LEFT COMMON FEMORAL VEIN: Negative. LEFT FEMORAL VEIN: Negative. LEFT POPLITEAL VEIN: Negative. LEFT CALF VEINS: Negative. ADDITIONAL FINDINGS: None. IMPRESSION: 1. No sonographic evidence for DVT in either lower extremity. Signer Name: Tobias Garza MD Signed: 11/10/2021 1:16 PM Workstation Name: [id number]
--- NOTE | 2021-11-10 13:32 | Emergency Department Report ---
HPI - General Chief Complaint: Chest Pain PUI?: No Time Seen by Provider: 11/10/21 09:51 - HPI HPI: 41-year-old morbidly obese female with extensive past medical history who presents for evaluation of chest pain. Of note this patient was last seen here at [facility] on October 29, 2021 and at that time, per emergency physician Dr. Sal's documentation, the patient had been complaining of preceding 2 weeks of persistent chest pain and bilateral leg pain and swelling. The patient reports to me now that it has been currently 4 to 5 weeks of persistent daily chest pain, without concomitant shortness of breath, but with bilateral leg swelling. She reports that she is compliant with her Coumadin but that her INR: Is never in the right area." Patient is repeatedly requesting to be given "tramadol or something stronger" for her chest pain. Chest pain only occurs with touching and with movement. She denies any cough or URI symptoms. Pain currently 8 out of 10. ED Past Medical Hx - Past Medical History Previous Medical History?: Yes Hx Hypertension: Yes Hx Heart Attack/AMI: (normal stress 10-31-16, normal perfusion scan May 2017) Hx Congestive Heart Failure: No Hx Diabetes: No Hx Deep Vein Thrombosis: No Hx Pulmonary Embolism: Yes Hx GERD: Yes Hx Sickle Cell Disease: No Hx Seizures: Yes (BUT PT DENIES) Hx Psychiatric Treatment: Yes (anxiety) Hx Asthma: No Hx COPD: No Hx Tuberculosis: No Hx HIV: No Additional medical history: pericarditis, pt states hyperthyroidism, thyroid storm, PE x2, (R lung 05/2016, L lung 01/2017--on coumadin), R leg DVT 03/2017, Graves Disease, heart murmur, aortic dissection - Surgical History Hx Coronary Stent: Yes ("multiple stents") Hx Pacemaker: No Hx Internal Defibrillator: No Additional Surgical History: Left arm surgery 02/2017, Right knee, Rt leg. 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, [place] Filter - Social History Smoking Status: Current Every Day Smoker - Medications Home Medications: Home Medications Medication Instructions Recorded Confirmed Last Taken Type ALPRAZolam [Xanax TAB] 0.5 mg PO BID #14 tablet 06/23/21 Unknown Rx Aspirin EC [Halfprin EC] 81 mg PO QDAY #30 tab 06/23/21 Unknown Rx Famotidine [Pepcid] 20 mg PO BID #30 tablet 06/23/21 Unknown Rx Gabapentin 100 mg PO Q8HR #90 capsule 06/23/21 Unknown Rx Levothyroxine [Synthroid] 150 mcg PO DAILY@0600 #30 tablet 06/23/21 Unknown Rx QUEtiapine [SEROquel] 100 mg PO QAM #30 tab 06/23/21 Unknown Rx Warfarin [Coumadin] 15 mg PO DAILY@1700 #60 tablet 06/23/21 Unknown Rx amLODIPine 10 mg PO QDAY #30 tablet 06/23/21 Unknown Rx cephALEXin [Keflex] 500 mg PO Q8HR #84 cap 06/23/21 Unknown Rx levETIRAcetam [Keppra TAB] 500 mg PO BID #60 tab 06/23/21 Unknown Rx propranoloL [Inderal] 40 mg PO BID #60 tab 06/23/21 Unknown Rx traMADoL [Ultram 50 MG tab] 50 mg PO TID PRN #12 06/23/21 Unknown Rx ED Review of Systems ROS: Stated complaint: CHEST PAIN/SWOLLEN LEGS Other details as noted in HPI Comment: All other systems reviewed and negative Physical Exam - Physical Exam Vital Signs: Vital Signs 11/09/21 11/10/21 11/10/21 23:46 09:36 09:46 Temperature 97.9 F Pulse Rate 70 50 L Respiratory 15 11 L 13 Rate Blood Pressure 129/71 Blood Pressure 116/69 [Left] O2 Sat by Pulse 99 99 Oximetry 11/10/21 11/10/21 11/10/21 10:00 10:16 10:30 Temperature Pulse Rate 62 73 55 L Respiratory 20 15 17 Rate Blood Pressure 129/71 129/71 129/71 Blood Pressure [Left] O2 Sat by Pulse 98 100 100 Oximetry 11/10/21 11/10/21 11/10/21 10:46 11:00 11:16 Temperature Pulse Rate 60 64 Respiratory 15 20 Rate Blood Pressure 154/85 129/71 129/71 Blood Pressure [Left] O2 Sat by Pulse 100 99 Oximetry 11/10/21 11/10/21 11/10/21 11:30 11:46 12:00 Temperature Pulse Rate 60 64 72 Respiratory 15 16 12 Rate Blood Pressure 129/71 126/72 126/72 Blood Pressure [Left] O2 Sat by Pulse 98 98 96 Oximetry 11/10/21 11/10/21 11/10/21 12:16 12:30 12:46 Temperature Pulse Rate Respiratory Rate Blood Pressure 126/72 154/85 126/72 Blood Pressure [Left] O2 Sat by Pulse 98 98 99 Oximetry General: Gen: pt is well appearing, no acute distress, patient initially found to be sleeping, easily arousable HEENT: Normocephalic atraumatic pupils equally round and reactive to light extraocular muscles intact sclera anicteric Neck: Full range of motion, no midline spinal tenderness palpation, no JVD, no carotid bruits, no nuchal rigidity CVS: S1-S2 regular rate and rhythm with no gallops rubs or murmurs, chest wall nontender Pulmonary: Clear to auscultation bilaterally, no wheezes rales or rhonchi Abdomen: Soft nondistended nontender no guarding or rebound tenderness, no palpable deformities or step-offs, normal active bowel sounds, no hepatosplenomegaly, no pulsatile masses : Deferred Extremities: No cyanosis no clubbing no edema, intact distal peripheral pulses, Integumentary: Skin normal, no petechia no purpura no abscess no lacerations no evidence of trauma no evidence of infection Neuro: Patient is awake alert and oriented to person place time situation, mentating well, cranial nerves II through XII intact, no focal neurodeficits, sensation grossly intact Psych: Calm cooperative, mood affect normal ED Course Vital Signs 11/09/21 11/10/21 11/10/21 23:46 09:36 09:46 Temperature 97.9 F Pulse Rate 70 50 L Respiratory 15 11 L 13 Rate Blood Pressure 129/71 Blood Pressure 116/69 [Left] O2 Sat by Pulse 99 99 Oximetry 11/10/21 11/10/21 11/10/21 10:00 10:16 10:30 Temperature Pulse Rate 62 73 55 L Respiratory 20 15 17 Rate Blood Pressure 129/71 129/71 129/71 Blood Pressure [Left] O2 Sat by Pulse 98 100 100 Oximetry 11/10/21 11/10/21 11/10/21 10:46 11:00 11:16 Temperature Pulse Rate 60 64 Respiratory 15 20 Rate Blood Pressure 154/85 129/71 129/71 Blood Pressure [Left] O2 Sat by Pulse 100 99 Oximetry 11/10/21 11/10/21 11/10/21 11:30 11:46 12:00 Temperature Pulse Rate 60 64 72 Respiratory 15 16 12 Rate Blood Pressure 129/71 126/72 126/72 Blood Pressure [Left] O2 Sat by Pulse 98 98 96 Oximetry 11/10/21 11/10/21 11/10/21 12:16 12:30 12:46 Temperature Pulse Rate Respiratory Rate Blood Pressure 126/72 154/85 126/72 Blood Pressure [Left] O2 Sat by Pulse 98 98 99 Oximetry - Reevaluation(s) Reevaluation #1: 11/10/21 14:49 pt is comfortable,asleep, VSS: pt updated concerning ct scan findings; ED Medical Decision Making - Lab Data Result diagrams: 11/10/21 11:10 11/10/21 11:10 - EKG Data -: EKG Interpreted by Me EKG shows normal: sinus rhythm Rate: normal - EKG Data When compared to previous EKG there are: no significant change, previous EKG molina vailable - Radiology Data Radiology results: report reviewed - Medical Decision Making 41yo morbidly obese F w/multiple medical comorbidities presents for evaluation of 4 weeks of persistent chest pain and b/l lower extremity pain/swelling. VSS. Labs wnl. Diagnostic imaging results reviewed. Patient has no acute pulmonary embolism but has old chronic right-sided thrombus. Patient given tramadol here as well as methocarbamol with significant improvement and complete resolution in her pain subsequently. She has no hypoxia dyspnea or tachypnea. Her pain is reproducible only when she moves her trunk. She was given furosemide for diuresis with respect to the edema of her lower extremities. No further emergent work-up warranted at this time. Patient deemed stable for discharge to home. Patient advised to follow-up with her primary care doctor and therapy coordinator for outpatient follow-up and reassessment. All questions answered by me at the patient's bedside. Prior to discharge she was given strict verbal and written return precautions. Patient verbalized understanding and agreement plan of care. Critical care attestation.: If time is entered above; I have spent that time in minutes in the direct care of this critically ill patient, excluding procedure time. ED Disposition Clinical Impression: Chronic chest pain, Peripheral edema Disposition: 01 HOME / SELF CARE / HOMELESS Is pt being admited?: No Does the pt Need Aspirin: No Condition: Stable Instructions: Nonspecific Chest Pain, Adult, Chronic Pain, Adult, Edema, [id number] Additional Instructions: It is strongly advised that you follow-up with your primary care doctor and your therapy coordinator for reassessment as soon as possible. You may continue to take your at home dose of tramadol as needed for your continued chest pain. Please elevate your legs at home, and avoid any salty and or processed foods, as well as avoid adding salt to your food as these may cause persistent swelling in your legs. Return if you develop severe worsening chest pain, any shortness of breath or difficulty breathing, pain that is not consistent with your current pain, vomiting, dizziness, or if any other new worrisome symptoms develop. Referrals: PRIMARY CARE, [Primary Care Provider] - 3-5 Days
[2021-11-10 13:59] LABS: Platelet Count 279 K/mm3 (140-440)
[2021-11-10 14:02] VITALS: BP 135/77
[2021-11-10 14:19] LABS: Amphetamine Screen,Urine Negative; Benzodiazepines Screen,Urine Negative; Cannabinoid Screen,Urine Negative; Cocaine Screen,Urine Negative; Methadone Screen,Urine Negative; Opiate Screen,Urine Negative
--- NOTE | 2021-11-10 14:39 | Cat Scan Report ---
CTA CHEST WITH CONTRAST INDICATION / CLINICAL INFORMATION: Shortness of breath. History of PE TECHNIQUE: Axial CT images were obtained through the chest after injection of Omnipaque 350, 100 cc I V contrast. 3 plane MIP and/or 3D reconstructions were produced. All CT scans at this location are pe rformed using CT dose reduction for ALARA by means of automated exposure control. COMPARISON: None available. FINDINGS: PULMONARY ARTERIES: The previously seen acute pulmonary emboli have predominantly resolved. Mild resi dual clot is seen at the right main pulmonary artery extending into the interlobar artery and proxima l segmental branches. No acute-appearing pulmonary embolus. THORACIC AORTA: Descending thoracic aortic stent graft is unchanged. HEART: No significant abnormality. CORONARY ARTERY CALCIFICATION: None. MEDIASTINUM / MICKI: No significant abnormality. PLEURA: No pleural effusion. No pneumothorax. LUNGS: Multifocal areas of peripheral scarring are again noted. Findings are overall mildly worsened. No acute appearing infiltrate or suspicious lesion. ADDITIONAL FINDINGS: None. UPPER ABDOMEN: No acute findings. SKELETAL STRUCTURES: No significant osseous abnormality. IMPRESSION: 1. No acute pulmonary embolus. Mild residual chronic pulmonary embolus right chest. 2. Persistent bilateral scarring with mild worsening. 3. No acute infiltrate. Signer Name: Josiah Castro MD Signed: 11/10/2021 2:35 PM Workstation Name: [id number]
== END 2021-11-10 15:24 | disposition home or self-care (01) ==
LOC: ED 23:38
DX: R07.9 Chest pain, unspecified (principal); R60.9 Edema, unspecified; F17.200 Nicotine dependence, unspecified, uncomplicated; I10 Essential (primary) hypertension; Z79.899 Other long term (current) drug therapy
CPT/HCPCS: 36415; 71046; 71275; 80048; 80307; 83880; 84484; 85025; 85610; 93005; 93970; 96374; 99284; J1940; Q9967

== ENCOUNTER 2021-11-18 22:21 | Emergency (ER) | payer SELFPAY ==
--- NOTE | 2021-11-18 23:27 | XRay Report ---
CHEST 2 VIEWS INDICATION / CLINICAL INFORMATION: CHEST PAIN. COMPARISON: 11/10/2021 FINDINGS: SUPPORT DEVICES: None. HEART / MEDIASTINUM: No significant abnormality. LUNGS / PLEURA: No significant pulmonary or pleural abnormality. No pneumothorax. ADDITIONAL FINDINGS: Stable descending thoracic aortic endograft. IMPRESSION: 1. No acute chest process. 2. Stable descending thoracic aortic endograft. Signer Name: Paco Resendiz MD Signed: 11/18/2021 11:23 PM Workstation Name: [email or web address]
--- NOTE | 2021-11-19 11:36 | Electrocardiograph Report ---
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
[2021-11-19] MEDS ORDERED: MORPHINE 4 MG/1 ML INJ IV ONE ×3 (12:02→17:54)
[2021-11-19] MEDS ORDERED: ONDANSETRON 4 MG/2 ML INJ IV ONE ×3 (12:02→17:54)
--- NOTE | 2021-11-19 13:03 | Emergency Department Report ---
ED Chest Pain HPI - General Chief Complaint: Chest Pain Stated Complaint: CHEST PAIN/DIZZINESS/SWOLLEN LEGS Time Seen by Provider: 11/19/21 11:35 Source: patient, old records reviewed Mode of arrival: Ambulatory Limitations: No Limitations - History of Present Illness Initial Comments: 41-year-old female with multiple chronic medical conditions including GERD, CAD with stent, hypertension, anxiety, pulmonary emboli, DVT, descending thoracic aortic dissection with TAVR, Alaina filter, and chronic anticoagulation presents to the hospital with complaints of ongoing chest pain and leg edema. Patient has ongoing chest pain and edema with multiple ED visits for same. Pain is described as sharp, constant, at the deep sternal area, worse with palpation and movement in any direction. Positive associated shortness of breath, nausea, and worsening leg edema and tightness and pain to lower extremities. Patient was here in the ED several times in the last month and discharged. Patient reports that 3 weeks ago she was admitted to [facility] and had a cardiac cath with a valve replacement performed (? aortic valve). Patient also states she has chronic subtherapeutic INR and was told that her level should be between 3.5-4. Patient states she is compliant with her Coumadin 7.5 mg daily dosing. She reports that she is allergic to Lovenox and cannot tolerate other anticoagulants. As per discharge summary here at [facility] 06/23: Had extensive discussion with the patient about our concerns for why her INR has not improved I also did discuss with electrical lineman today before are concerning the same effect patient claims that Xarelto makes her very nauseous and unable to take I do not have a history with this has been tried in fact she has been tried on Eliquis in the past when asked about her records and her doctors so that we can call in confirm her history she got visibly upset and wanted to sign out from the hospital she tells me that she had a mechanical valve placed here in this hospital less than a year ago I have scanned through the entire record and I do not see this when I discussed with her about having a TeVR procedure for her dissection she reluctantly agreed that that was the procedure she was talking about. She is states that warfarin 7.5 is enough for her but outside of her "cheeking and discarding" the medication this appears not to be accurate as and I had not budged for almost 20 days. I did advise her that with her signing out I will increase her warfarin to 15 mg which is a dose that she had been on in the past currently she is getting 30 mg today. I also did discuss with the infectious disease doctor and we went over her cultures which showed MSSA as a result of line infection and central line was taken out the repeat culture has been negative we agreed that she can safely be transitioned to an oral antibiotics. Case management is working on this to ensure that the hospital covers cost of medications for her for the next 30 days she is to follow-up with her primary care physician she is to fill out all the paperwork that is required to continue to receive medications at home to her pharmacy and through her insurance or to joceline programs that are available to the medication She was seen by psychiatry team. Throughout the conversation she repeats the same thing but does show evidence of comprehension of the discussion that you have had with her. I have stressed extensively compliance with medication and compliance with following up with her doctors. I attempted to obtain medical records from [facility] and they do not have a record of this patient EChO here 05/2021 with normal EF with normal aortic valve, mitral valve with trace regurgitation, and normal tricuspid valve with trace regurgitation, normal pulmonic valve - Related Data Previous Rx's Medication Instructions Recorded Last Taken Type ALPRAZolam [Xanax TAB] 0.5 mg PO BID #14 tablet 06/23/21 Unknown Rx Aspirin EC [Halfprin EC] 81 mg PO QDAY #30 tab 06/23/21 Unknown Rx Famotidine [Pepcid] 20 mg PO BID #30 tablet 06/23/21 Unknown Rx Gabapentin 100 mg PO Q8HR #90 capsule 06/23/21 Unknown Rx Levothyroxine [Synthroid] 150 mcg PO DAILY@0600 #30 tablet 06/23/21 Unknown Rx QUEtiapine [SEROquel] 100 mg PO QAM #30 tab 06/23/21 Unknown Rx Warfarin [Coumadin] 15 mg PO DAILY@1700 #60 tablet 06/23/21 Unknown Rx amLODIPine 10 mg PO QDAY #30 tablet 06/23/21 Unknown Rx cephALEXin [Keflex] 500 mg PO Q8HR #84 cap 06/23/21 Unknown Rx levETIRAcetam [Keppra TAB] 500 mg PO BID #60 tab 06/23/21 Unknown Rx propranoloL [Inderal] 40 mg PO BID #60 tab 06/23/21 Unknown Rx traMADoL [Ultram 50 MG tab] 50 mg PO TID PRN #12 06/23/21 Unknown Rx Azithromycin [Zithromax Z-CRISS] 1 dose PO DAILY 5 Days tab 11/19/21 Unknown Rx Promethazine [Phenergan] 25 mg PO Q6HR PRN #20 tab 11/19/21 Unknown Rx traMADoL [Ultram 50 MG tab] 50 mg PO Q6HR PRN #10 tablet 11/19/21 Unknown Rx Allergies Allergy/AdvReac Type Severity Reaction Status Date / Time acetaminophen [From Tylenol] Allergy Hives Verified 12/16/20 11:52 enoxaparin [From Lovenox] Allergy Rash, Verified 01/18/21 13:51 fever, vomiting garlic Allergy Hives Verified 01/18/21 13:51 oxycodone [From Percocet] Allergy Itching, Verified 01/18/21 13:51 rash peanut oil Allergy Rash Verified 01/18/21 13:51 Penicillins Allergy hives, Verified 01/18/21 13:51 vomiting ibuprofen [From Motrin] AdvReac nausea/vomi Verified 01/18/21 13:51 ting Heart Score - HEART Score History: Slightly suspicious EKG: Normal Age: < 45 Risk factors: > 3 risk factors or hx of atherosclerotic disease Troponin: < normal limit HEART Score: 2 - EKG Read Time Time EKG Completed: 22:37 EKG Read Time: 22:44 ED Review of Systems ROS: Stated complaint: CHEST PAIN/DIZZINESS/SWOLLEN LEGS Other details as noted in HPI ED Past Medical Hx - Past Medical History Previous Medical History?: Yes Hx Hypertension: Yes Hx Heart Attack/AMI: (normal stress 10-31-16, normal perfusion scan May 2017) Hx Congestive Heart Failure: No Hx Diabetes: No Hx Deep Vein Thrombosis: No Hx Pulmonary Embolism: Yes Hx GERD: Yes Hx Sickle Cell Disease: No Hx Seizures: Yes (BUT PT DENIES) Hx Psychiatric Treatment: Yes (anxiety) Hx Asthma: No Hx COPD: No Hx Tuberculosis: No Hx HIV: No Additional medical history: pericarditis, pt states hyperthyroidism, thyroid storm, PE x2, (R lung 05/2016, L lung 01/2017--on coumadin), R leg DVT 03/2017, Graves Disease, heart murmur, aortic dissection - Surgical History Hx Coronary Stent: Yes ("multiple stents") Hx Pacemaker: No Hx Internal Defibrillator: No Additional Surgical History: Left arm surgery 02/2017, Right knee, Rt leg. 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, Alaina Filter - Social History Smoking Status: Unknown if ever smoked - Medications Home Medications: Home Medications Medication Instructions Recorded Confirmed Last Taken Type ALPRAZolam [Xanax TAB] 0.5 mg PO BID #14 tablet 06/23/21 Unknown Rx Aspirin EC [Halfprin EC] 81 mg PO QDAY #30 tab 06/23/21 Unknown Rx Famotidine [Pepcid] 20 mg PO BID #30 tablet 06/23/21 Unknown Rx Gabapentin 100 mg PO Q8HR #90 capsule 06/23/21 Unknown Rx Levothyroxine [Synthroid] 150 mcg PO DAILY@0600 #30 tablet 06/23/21 Unknown Rx QUEtiapine [SEROquel] 100 mg PO QAM #30 tab 06/23/21 Unknown Rx Warfarin [Coumadin] 15 mg PO DAILY@1700 #60 tablet 06/23/21 Unknown Rx amLODIPine 10 mg PO QDAY #30 tablet 06/23/21 Unknown Rx cephALEXin [Keflex] 500 mg PO Q8HR #84 cap 06/23/21 Unknown Rx levETIRAcetam [Keppra TAB] 500 mg PO BID #60 tab 06/23/21 Unknown Rx propranoloL [Inderal] 40 mg PO BID #60 tab 06/23/21 Unknown Rx traMADoL [Ultram 50 MG tab] 50 mg PO TID PRN #12 06/23/21 Unknown Rx Azithromycin [Zithromax Z-CRISS] 1 dose PO DAILY 5 Days tab 11/19/21 Unknown Rx Promethazine [Phenergan] 25 mg PO Q6HR PRN #20 tab 11/19/21 Unknown Rx traMADoL [Ultram 50 MG tab] 50 mg PO Q6HR PRN #10 tablet 11/19/21 Unknown Rx ED Physical Exam - General Limitations: No Limitations - Other Other exam information: General: No acute distress Head: Atraumatic Eyes: normal appearance ENT: Moist mucous membranes Neck: Normal appearance, no midline tenderness Chest: Clear to auscultation bilaterally, reproducible anterior chest wall tenderness CV: Regular rate and rhythm Abdomen: Soft, normal bowel sounds, nontender, nondistended, no rebound or guarding Back: Normal inspection Extremity: Bilateral leg swelling without leg asymmetry Neuro: Alert O x 3, no facial asymmetry, speech clear, no gross motor sensory deficit Psych: Appropriate behavior Skin: No rash ED Course Vital Signs 11/18/21 11/19/21 11/19/21 22:34 15:55 16:00 Temperature 99.0 F Pulse Rate 107 H 100 H 99 H Respiratory 18 18 19 Rate Blood Pressure 121/71 113/66 O2 Sat by Pulse 97 88 98 Oximetry 11/19/21 16:16 Temperature Pulse Rate 93 H Respiratory 16 Rate Blood Pressure 117/60 O2 Sat by Pulse 99 Oximetry - Reevaluation(s) Reevaluation #1: 11/19/21 12:14 pt refused IV blood draw attempt LEI score - Lei Score Age > 65: (0) No Aspirin use within the Past 7 Days: (0) No 3 or more CAD Risk Factors: (0) No 2 or more Angina events in past 24 hrs: (0) No Known CAD with more than 50% Stenosis: (0) No Elevated Cardiac Markers: (0) No ST Deviation Greater than 0.5mm: (0) No LEI Score: 0 ED Medical Decision Making - Lab Data Result diagrams: 11/19/21 15:21 11/19/21 15:21 Lab Results 11/19/21 11/19/21 11/19/21 Range/Units 15:21 15:21 15:21 WBC 7.7 (4.5-11.0) K/mm3 RBC 3.58 L (3.65-5.03) M/mm3 Hgb 9.2 L (10.1-14.3) gm/dl Hct 28.7 L (30.3-42.9) % MCV 80 (79-97) fl MCH 26 L (28-32) pg MCHC 32 (30-34) % RDW 21.9 H (13.2-15.2) % Plt Count 302 (140-440) K/mm3 Lymph % (Auto) 21.1 (13.4-35.0) % [place] % (Auto) 4.5 (0.0-7.3) % Eos % (Auto) 5.4 H (0.0-4.3) % Baso % (Auto) 1.9 H (0.0-1.8) % Lymph # (Auto) 1.6 (1.2-5.4) K/mm3 [place] # (Auto) 0.3 (0.0-0.8) K/mm3 Eos # (Auto) 0.4 (0.0-0.4) K/mm3 Baso # (Auto) 0.1 (0.0-0.1) K/mm3 Seg Neutrophils % 67.1 (40.0-70.0) % Seg Neutrophils # 5.2 (1.8-7.7) K/mm3 PT (12.2-14.9) Sec. INR (0.87-1.13) APTT (24.2-36.6) Sec. Sodium 140 (137-145) mmol/L Potassium 4.7 (3.6-5.0) mmol/L Chloride 103.5 (98-107) mmol/L Carbon Dioxide 25 (22-30) mmol/L Anion Gap 16 mmol/L BUN 20 H (7-17) mg/dL Creatinine 1.4 H (0.6-1.2) mg/dL Estimated GFR 50 ml/min BUN/Creatinine Ratio 14 % Glucose 86 (65-100) mg/dL Calcium 9.0 (8.4-10.2) mg/dL Total Bilirubin < 0.20 (0.1-1.2) mg/dL AST 184 H (5-40) units/L ALT 165 H (7-56) units/L Alkaline Phosphatase 92 (35-129) units/L Troponin T < 0.010 (0.00-0.029) ng/mL Total Protein 6.3 (6.3-8.2) g/dL Albumin 4.1 (3.9-5) g/dL Albumin/Globulin Ratio 1.9 % HCG, Qual Negative (Negative) 11/19/21 Range/Units 15:21 WBC (4.5-11.0) K/mm3 RBC (3.65-5.03) M/mm3 Hgb (10.1-14.3) gm/dl Hct (30.3-42.9) % MCV (79-97) fl MCH (28-32) pg MCHC (30-34) % RDW (13.2-15.2) % Plt Count (140-440) K/mm3 Lymph % (Auto) (13.4-35.0) % [place] % (Auto) (0.0-7.3) % Eos % (Auto) (0.0-4.3) % Baso % (Auto) (0.0-1.8) % Lymph # (Auto) (1.2-5.4) K/mm3 [place] # (Auto) (0.0-0.8) K/mm3 Eos # (Auto) (0.0-0.4) K/mm3 Baso # (Auto) (0.0-0.1) K/mm3 Seg Neutrophils % (40.0-70.0) % Seg Neutrophils # (1.8-7.7) K/mm3 PT 13.1 (12.2-14.9) Sec. INR 0.88 (0.87-1.13) APTT 26.4 (24.2-36.6) Sec. Sodium (137-145) mmol/L Potassium (3.6-5.0) mmol/L Chloride (98-107) mmol/L Carbon Dioxide (22-30) mmol/L Anion Gap mmol/L BUN (7-17) mg/dL Creatinine (0.6-1.2) mg/dL Estimated GFR ml/min BUN/Creatinine Ratio % Glucose (65-100) mg/dL Calcium (8.4-10.2) mg/dL Total Bilirubin (0.1-1.2) mg/dL AST (5-40) units/L ALT (7-56) units/L Alkaline Phosphatase (35-129) units/L Troponin T (0.00-0.029) ng/mL Total Protein (6.3-8.2) g/dL Albumin (3.9-5) g/dL Albumin/Globulin Ratio % HCG, Qual (Negative) - EKG Data -: EKG Interpreted by [place] EKG shows normal: sinus rhythm, ST-T waves (no stemi) Rate: tachycardia (104) - EKG Data When compared to previous EKG there are: no significant change - Radiology Data Radiology results: report reviewed CTA CHEST WITH CONTRAST INDICATION / CLINICAL INFORMATION: chest pain hx of pe, dissection 100ml of [id number]. TECHNIQUE: Axial CT images were obtained through the chest after injection of 100 cc Omnipaque 350 IV contrast. 3 plane MIP and/or 3D reconstructions were produced. All CT scans at this location are performed using CT dose reduction for ALARA by means of automated exposure control. COMPARISON: None available. FINDINGS: PULMONARY ARTERIES: No pulmonary emboli. THORACIC AORTA: Endovascular stent is noted within the descending thoracic aorta. No acute findings. HEART: No significant abnormality. CORONARY ARTERY CALCIFICATION: None. MEDIASTINUM / MICKI: No significant abnormality. PLEURA: No pleural effusion. No pneumothorax. LUNGS: Scattered airspace opacities throughout the bilateral lungs with a left lung predominance. ADDITIONAL FINDINGS: None. UPPER ABDOMEN: No acute findings. SKELETAL STRUCTURES: No significant osseous abnormality. IMPRESSION: 1. No CT evidence for pulmonary embolism. 2. Scattered airspace opacities concerning for multifocal pneumonia. - Medical Decision Making 41-year female presents to the hospital complaining of chest pain and leg edema. Patient has multiple hospital ER visits for the same. Patient once again provides a story about recent valve replacement which cannot be confirmed. Echo performed in May did not show any significant valve abnormality and the hospital name that she provided does not have a record of her. CT angiogram today does not show acute pulmonary embolism or dissection but is significant for multifocal pneumonia. Patient's not hypoxic or febrile and lacks a leukocytosis. She will be treated with azithromycin and symptomatically for pain and nausea. Once again patient has subtherapeutic INR level which is chronic despite her claims to be compliant with Coumadin. Patient will be referred to her Coumadin clinic for further management. Patient did receive 1 dose of Lasix in the ED for edema however, I am hesitant to discharge patient on diuretics given her mild renal insufficiency noted on labs. Outpatient follow- up will be advised. Critical Care Time: No Critical care attestation.: If time is entered above; I have spent that time in minutes in the direct care of this critically ill patient, excluding procedure time. ED Disposition Clinical Impression: Atypical chest pain, Multifocal pneumonia, Subtherapeutic international norm alized ratio (INR) Disposition: 01 HOME / SELF CARE / HOMELESS Is pt being admited?: No Condition: Stable Instructions: Nonspecific Chest Pain, Adult, Bacterial Pneumonia (ED), Community-Acquired Pneumonia, Adult Additional Instructions: Take the medication as prescribed. Follow-up with your primary care doctor Coumadin clinic for further management of your conditions and management of your Coumadin and INR level. Return if symptoms worsen as indicated by your disc harge instructions. Prescriptions: Promethazine [Phenergan] 25 mg PO Q6HR PRN #20 tab PRN Reason: Nausea traMADoL [Ultram 50 MG tab] 50 mg PO Q6HR PRN #10 tablet PRN Reason: Pain Azithromycin [Zithromax Z-CRISS] 1 dose PO DAILY 5 Days tab Referrals: NIKKY BARNETT MD [Primary Care Provider] - 3-5 Days Time of Disposition: 18:55
[2021-11-19 15:46] LABS: Basophils # (Auto) 0.1 K/mm3 (0.0-0.1); Basophils % (Auto) 1.9 % (0.0-1.8); Eosinophils # (Auto) 0.4 K/mm3 (0.0-0.4); Eosinophils % (Auto) 5.4 % (0.0-4.3); Hematocrit 28.7 % (30.3-42.9); Hemoglobin 9.2 gm/dl (10.1-14.3); Lymphocytes # (Auto) 1.6 K/mm3 (1.2-5.4); Lymphocytes % (Auto) 21.1 % (13.4-35.0); Mean Corpuscular HGB Conc 32 % (30-34); Mean Corpuscular Volume 80 fl (79-97); Monocytes # (Auto) 0.3 K/mm3 (0.0-0.8); Monocytes % (Auto) 4.5 % (0.0-7.3); Platelet Count 302 K/mm3 (140-440); Red Blood Count 3.58 M/mm3 (3.65-5.03)
[2021-11-19 15:47] LABS: Red Cell Distribution Width 21.9 % (13.2-15.2)
[2021-11-19 15:53] LABS: INR 0.88 (0.87-1.13)
[2021-11-19 15:54] LABS: Partial Thromboplastin Time 26.4 Sec. (24.2-36.6)
[2021-11-19 16:10] LABS: Alanine Aminotransferase 165 units/L (7-56); Albumin 4.1 g/dL (3.9-5); BUN/Creatinine Ratio 14; Blood Urea Nitrogen 20 mg/dL (7-17); Hemolysis Index 9
--- NOTE | 2021-11-19 17:58 | Cat Scan Report ---
CTA CHEST WITH CONTRAST INDICATION / CLINICAL INFORMATION: chest pain hx of pe, dissection 100ml of [id number]. TECHNIQUE: Axial CT images were obtained through the chest after injection of 100 cc Omnipaque 350 IV contrast. 3 plane MIP and/or 3D reconstructions were produced. All CT scans at this location are per formed using CT dose reduction for ALARA by means of automated exposure control. COMPARISON: None available. FINDINGS: PULMONARY ARTERIES: No pulmonary emboli. THORACIC AORTA: Endovascular stent is noted within the descending thoracic aorta. No acute findings. HEART: No significant abnormality. CORONARY ARTERY CALCIFICATION: None. MEDIASTINUM / MICKI: No significant abnormality. PLEURA: No pleural effusion. No pneumothorax. LUNGS: Scattered airspace opacities throughout the bilateral lungs with a left lung predominance. ADDITIONAL FINDINGS: None. UPPER ABDOMEN: No acute findings. SKELETAL STRUCTURES: No significant osseous abnormality. IMPRESSION: 1. No CT evidence for pulmonary embolism. 2. Scattered airspace opacities concerning for multifocal pneumonia. Signer Name: Miguel Urban DO Signed: 11/19/2021 5:53 PM Workstation Name: [id number]
[2021-11-19] MEDS ORDERED: AZITHROMYCIN 250 MG TAB PO ONE (18:08)
[2021-11-19] MEDS ORDERED: FUROSEMIDE 20 MG/2 ML INJ IV ONE (18:09)
[2021-11-19] MEDS ORDERED: MORPHINE 2 MG/1 ML INJ IV ONE (19:46)
[2021-11-19 20:33] VITALS: BP 122/78
== END 2021-11-19 20:33 | disposition home or self-care (01) ==
LOC: ED 22:21
DX: R07.89 Other chest pain (principal); J18.9 Pneumonia, unspecified organism; Z51.81 Encounter for therapeutic drug level monitoring; I10 Essential (primary) hypertension; I26.99 Other pulmonary embolism without acute cor pulmonale; K21.9 Gastro-esophageal reflux disease without esophagitis; R56.9 Unspecified convulsions; F41.9 Anxiety disorder, unspecified; Z98.890 Other specified postprocedural states; Z91.02 Food additives allergy status; Z91.010 Allergy to peanuts; Z88.0 Allergy status to penicillin; Z91.09 Other allergy status, other than to drugs and biological substances; Z79.899 Other long term (current) drug therapy
CPT/HCPCS: 36415; 71046; 71275; 80053; 84484; 84703; 85025; 85610; 85730; 93005; 96374; 96375; 96376; 99284; J1940; J2270; J2405; Q9967